=== PATIENT | male | born 1960 | race Caucasian/White ===

== ENCOUNTER 2022-09-27 07:26 | Outpatient (OUT) | payer MEDICARE, SELFPAY ==
[2022-09-27 07:46] LABS: Bilirubin Urine NEGATIVE (NEGATIVE); Blood Urine TRACE-I (NEGATIVE); Clarity Urine CLEAR (CLEAR); Color Urine LT. YELLOW (YELLOW); Glucose Urine UA >=1000 mg/dL (NEGATIVE); Ketones Urine NEGATIVE (NEGATIVE); Leukocyte Esterase Urine NEGATIVE (NEGATIVE); Nitrite Urine NEGATIVE (NEGATIVE); Protein Urine NEGATIVE (NEG/TRACE); Specific Gravity Urine <=1.005 (1.005-1.025); Urobilinogen Urine 0.2 EU/dL (0.2-1.0)
[2022-09-27 07:56] LABS: Bacteria Urine NONE SEEN #/HPF (NONE SEEN); Mucus Urine NONE SEEN (NONE SEEN); RBC Urine 0-2 #/HPF (0-2); WBC Urine NONE SEEN #/HPF (NONE SEEN)
[2022-09-27 07:57] LABS: Squamous Epithelial Cell Urine FEW #/LPF (NONE/RARE)
[2022-09-27 08:03] LABS: Crystals Seen? None Seen #/HPF (None Seen)
[2022-09-27 08:04] LABS: Cast Seen? NONE SEEN #/LPF (NONE SEEN)
== END 2022-09-27 07:27 ==
LOC: LAB 07:31
PROVIDERS: PCP Nurse Practitioner; Visit Provider Nurse Practitioner
DX: R31.21 Asymptomatic microscopic hematuria (principal)
CPT/HCPCS: 81001

== ENCOUNTER 2022-12-13 11:14 | Outpatient (OUT) | payer MEDICARE, SELFPAY ==
[2022-12-13 11:58] LABS: Estimated Average Glucose 212 mg/dL
[2022-12-13 12:54] LABS: Alanine Aminotransferase 18 U/L (16-63); Albumin Globulin Ratio 0.9; Albumin Level 3.9 g/dL (3.4-5.0); Alkaline Phosphatase 69 U/L (46-116); Anion Gap 9.3; Aspartate Amino Transferase 22 U/L (15-37); BUN Creatinine Ratio 18.1; Calcium 8.7 mg/dL (8.5-10.1); Carbon Dioxide 28.7 mmol/L (21.0-32.0); Chloride 100 mmol/L (98-107); Estimated GFR (African America >60 (>=60); Estimated GFR (Non-African Ame 50 (>=60); Free T3 2.11 pg/mL (2.18-3.98); Globulin 4.5 g/dL; Glucose 266 mg/dL (74-106); Sodium 134 mmol/L (136-145); Thyroid Stimulating Hormone 2.113 uIU/mL (0.358-3.740); Total Protein 8.4 g/dL (6.4-8.2)
== END 2022-12-13 11:15 | disposition home or self-care (01) ==
LOC: LAB 11:18
PROVIDERS: PCP Nurse Practitioner; Visit Provider Nurse Practitioner
DX: E11.8 Type 2 diabetes mellitus with unspecified complications (principal); Z79.4 Long term (current) use of insulin; E03.9 Hypothyroidism, unspecified; N18.30 Chronic kidney disease, stage 3 unspecified; E11.22 Type 2 diabetes mellitus with diabetic chronic kidney disease; I50.22 Chronic systolic (congestive) heart failure
CPT/HCPCS: 36415; 80053; 83036; 84439; 84443; 84481

== ENCOUNTER 2023-05-19 07:03 | Emergency (ER) | payer MEDICARE, MEDICAID, SELFPAY ==
[2023-05-19] VITALS (23 sets, daily range): PULSE 114; RESP 20–24; TEMP 36.3; O2SAT 93–100; BMI 33.8
--- NOTE | 2023-05-19 07:15 | XR_ITS ---
The [address] [address] Patient Name: TERRY BARAKAT MRN: [id number] date: 1960 Sex: M Assigned Patient Location: ER Current Patient Location: ED.MAIN Accession/Order Number: [id number] Exam Date: 05/19/2023 07:28 Report Date: 05/19/2023 07:40 At the request of: HUGO VARGAS Procedure: XR chest 1V EXAMINATION: XR chest 1V HISTORY: SOB COMPARISON: 04/01/2022 TECHNIQUE: AP portable FINDINGS: LUNGS: Left basilar infiltrate obscuring the hemidiaphragm, the right lung is clear VASCULATURE: No increased pulmonary vasculature. PLEURA: No pneumothorax, effusion, or pleural thickening. CARDIAC: Moderate stable cardiomegaly MEDIASTINUM: No visible mass or adenopathy. Median sternotomy wires. Left pacemaker BONES: No fracture or visible bone lesion. OTHER: Negative. XR/XR chest 1V IMPRESSION: Left basilar infiltrate Electronically authenticated by: TORI GILL Date: 05/19/2023 07:40
--- NOTE | 2023-05-19 07:18 | ECG_ITS ---
The [facility] Test Date: 2023-05-19 Pat Name: TERRY BARAKAT Department: Room: - Gender: Male [employer]: : 1960 Requested By: [id number] Order Number: [id number] Reading MD: OSMAN CANTU Measurements Intervals Bureau Rate: 77 P: -58509 ND: -49010 QRS: 270 QRSD: 118 T: 205 QT: 414 QTc: 446 Interpretive Statements Tracing not interpretable 0102 ARTIFACT PRESENT 9150 abnormal ECG Electronically Signed On 05-20-2023 6:56:01 EST by OSMAN CANTU
--- NOTE | 2023-05-19 07:29 | ED_ITS ---
HPI - General Adult General Chief complaint: Chest Pain Stated complaint: DEFIB Time Seen by Provider: 05/19/23 07:15 Source: patient Mode of arrival: ambulance Limitations: no limitations History of Present Illness HPI narrative: 62-year-old male presents because his defibrillator discharged six times in fifteen minutes. This all happened this morning and paramedics brought him in. Since they picked him up it has not discharged. He also has an LVAD. He's been taking all his medications and nothing has been out of the ordinary for him. He's had this defibrillator since 2010 and the battery has never been changed. no fever or shortness of breath. Related Data Home Medications Medication Instructions Recorded Confirmed carvedilol 6.25 mg tablet 6.25 mg PO Q12H 05/19/23 05/19/23 cholecalciferol (vitamin D3) 50 2,000 unit PO DAILY 05/19/23 05/19/23 mcg (2,000 unit) tablet dapagliflozin propanediol 10 mg 10 mg PO DAILY 05/19/23 05/19/23 tablet (Farxiga) digoxin 125 mcg (0.125 mg) tablet 0.125 mg PO .3 times weekly 05/19/23 05/19/23 fluticasone propionate 50 2 spray intranasal DAILY 05/19/23 05/19/23 mcg/actuation nasal spray,suspension gabapentin 300 mg capsule 300 mg PO BID 05/19/23 05/19/23 insulin detemir U-100 100 unit/mL 32 unit subcut BID 05/19/23 05/19/23 (3 mL) subcutaneous pen (Levemir FlexPen) insulin glargine 100 unit/mL (3 unit subcut 05/19/23 mL) subcutaneous pen (Basaglar KwikPen U-100 Insulin) levothyroxine 100 mcg tablet 100 mcg PO DAILY 05/19/23 05/19/23 lisinopril 5 mg tablet 5 mg PO DAILY 05/19/23 05/19/23 loratadine 10 mg tablet 10 mg PO DAILY 05/19/23 05/19/23 rosuvastatin 10 mg tablet 10 mg PO DAILY 05/19/23 05/19/23 spironolactone 25 mg tablet 25 mg PO DAILY 05/19/23 05/19/23 warfarin 3 mg tablet 4.5 mg PO DAILY 05/19/23 05/19/23 Allergies Allergy/AdvReac Type Severity Reaction Status Date / Time No Known Drug Allergies Allergy Verified 05/19/23 07:10 Review of Systems ROS Narrative A ten point review of systems is negative except as noted above. PFSH PFSH Social History Smoking status: Former smoker Exam Narrative Exam Narrative: Nurses note and vital signs reviewed and patient is not hypoxic. General: The patient appears well and in no apparent distress. Patient is resting comfortably on cart. Skin: Warm, dry, no pallor noted. There is no rash noted. Head: Normocephalic, atraumatic Eye: Normal conjunctiva, no drainage Ears, Nose, Mouth, and Throat: oral mucosa is moist. Nares patent. Cardiovascular: LVAD is in place and functioning appropriately Respiratory: Patient is in no distress, no accessory muscle use, lungs are clear to auscultation, no wheezing, rales or rhonchi Back: non-tender GI: soft and nontender Musculoskeletal: The patient has no evidence of calf tenderness, no pitting edema Neurological: A&O, normal speech Psychiatric: Cooperative Constitutional Vital Signs, click to edit/add: Last Vital Signs Temp 97.4 F L 05/19/23 07:27 Pulse 114 H 05/19/23 07:08 Resp 24 05/19/23 07:08 Pulse Ox 96 05/19/23 07:38 O2 Del Method Nasal Cannula 05/19/23 07:38 O2 Flow Rate 2 05/19/23 07:38 Course Vital Signs Vital signs: Vital Signs Temperature 97.4 F L 05/19/23 07:05 Respiratory Rate 23 05/19/23 07:05 Pulse Oximetry 96 05/19/23 07:05 Oxygen Delivery Flow Rate 2 05/19/23 07:05 Temperature 97.4 F L 05/19/23 07:27 Pulse Rate 114 H 05/19/23 07:08 Respiratory Rate 24 05/19/23 07:08 Pulse Oximetry 96 05/19/23 07:38 Oxygen Delivery Method Nasal Cannula 05/19/23 07:38 Oxygen Delivery Flow Rate 2 05/19/23 07:38 Medical Decision Making MDM Narrative Medical decision making narrative: His defibrillator has not discharged any further. I've spoken to Dr. Negrete at [facility] and the patient will be transferred there. He stable and agreeable for transfer. Differential Diagnosis Differential Diagnosis: defibrillator discharge, electrolyte imbalance Imaging Data Chest x-ray: Radiologist's impression: ITS Impressions Chest X-Ray 05/19/23 07:15 IMPRESSION: Left basilar infiltrate Electronically authenticated by: TORI GILL Date: 05/19/2023 07:40 Discharge Plan Discharge Chief Complaint: Chest Pain Clinical Impression: Defibrillator discharge Patient Disposition: [facility] Time of Disposition Decision: 08:03 Discharge location: [facility] Condition: Good Mode of Transportation: EMS
[2023-05-19 07:34] LABS: Basophils Absolute Auto 0.1 10^3/uL (0.0-0.1); Basophils Percent Auto 1.5 % (0.2-2.0); Eosinophils Absolute Auto 0.3 10^3/uL (0.0-0.7); Eosinophils Percent Auto 6.2 % (0.9-7.0); Hematocrit 46.7 % (42.0-54.0); Hemoglobin 15.2 g/dL (14.0-18.0); Immature Granulocytes Abs Auto 0.02 10^3/uL (0.00-0.03); Immature Granulocytes Pct Auto 0.4 % (0.0-0.5); Lymphocytes Absolute Auto 0.8 10^3/uL (1.2-3.8); Lymphocytes Percent Auto 14.9 % (20.5-60.0); Mean Corpuscular HGB Conc 32.5 g/dL (29.9-35.2); Mean Corpuscular Hemoglobin 31.3 pg (25.9-34.0); Mean Corpuscular Volume 96.1 fL (80.0-94.0); Mean Platelet Volume 12.2 fL (9.5-13.5); Monocytes Absolute Auto 0.7 10^3/uL (0.3-0.8); Monocytes Percent Auto 12.2 % (1.7-12.0); Neutrophils Absolute Auto 3.6 10^3/uL (1.4-6.5); Neutrophils Percent Auto 64.8 % (43.0-75.0); Platelet Count 125 10^3/uL (150-450); Red Blood Count 4.86 10^6/uL (4.70-6.10); Red Cell Distribution Width 14.9 % (11.0-15.0); White Blood Count 5.5 10^3/uL (4.0-11.0)
[2023-05-19 08:49] LABS: Anion Gap 16.7; BUN Creatinine Ratio 14.7; Calcium 8.6 mg/dL (8.5-10.1); Carbon Dioxide 25.1 mmol/L (21.0-32.0); Chloride 102 mmol/L (98-107); Estimated GFR (African America >60 (>=60); Estimated GFR (Non-African Ame >60 (>=60); Glucose 236 mg/dL (74-106); Potassium 3.8 mmol/L (3.5-5.1); Sodium 140 mmol/L (136-145)
== END 2023-05-19 10:05 | disposition short-term general hospital (02) ==
PROVIDERS: Emergency Provider Emergency Medicine; PCP Nurse Practitioner
DX: T82.897A Other specified complication of cardiac prosthetic devices, implants and grafts, initial encounter (principal); Z95.811 Presence of heart assist device; Z87.891 Personal history of nicotine dependence; Z79.01 Long term (current) use of anticoagulants; Z79.899 Other long term (current) drug therapy; Z79.890 Hormone replacement therapy; Z79.4 Long term (current) use of insulin
CPT/HCPCS: 36415; 71045; 80048; 85025; 93005; 99285

== ENCOUNTER 2023-05-31 07:45 | Outpatient (OUT) | payer MEDICARE, MEDICAID, SELFPAY ==
--- OUTSIDE RECORDS SUMMARY | 2023-05-31 07:55 | XMS_ITS | CCD ---
Author Name Unknown Address [id number] [place] [address] Organization [facility] Care Team Providers Care Credit Associate Name Role Phone NENA YOUNG AM Admitting Unavailable NENA YOUNG AM Attending Unavailable ANA MADERA Referring Unavailable ANA MADERA Primary Care Unavailable PHYSICIAN, DEFAULT Admitting Unavailable PHYSICIAN, DEFAULT Attending Unavailable ANA MADERA Primary Care Unavailable PHYSICIAN, DEFAULT Admitting Unavailable PHYSICIAN, DEFAULT Attending Unavailable ANA MADERA Primary Care Unavailable PHYSICIAN, DEFAULT Admitting Unavailable PHYSICIAN, DEFAULT Attending Unavailable ANA MADERA Primary Care Unavailable ElAmm, John Unavailable Unavailable Cooper Vaca Unavailable Unavailable Janene Negrete Unavailable Unavailable Rey Molina Unavailable Unavailable Stanford West Unavailable Unavailable Ju Palacios Unavailable Unavailable William Mendez V Unavailable Unavailable Joleen Herrera Unavailable Unavailable Unavailable Joleen Herrera Unavailable Gastroenterology Consult Team Unavailable Un available Debora Paez Unavailable Unavailable EL AMM, JOHN Unavailable Unavailable Ju Palacios Unavailable Unavailable Joleen Herrera CNP Primary Care Provider El Amm, John Unavailable Joleen Herrera CNP Primary Care Provider JENNIFER HERRERA Primary Care Unavailable JENNIFER HERRERA Attending Unavailable JENNIFER HERRERA Admitting Unavailable DR TORI GILL V Consulting Unavailable JENNIFER HERRERA Primary Care Unavailable JERRELL KRAUS Attending Unavailable JERRELL KRAUS Admitting Unavailable KUNTE, JERRELL Consulting Unavailable AICHHOLZ, CELL BIOLOGY SCIENTIST JOLEEN Consulting Unavailable AICHHOLZ, CELL BIOLOGY SCIENTIST JOLEEN Primary Care Unavailable AICHHOLZ, CELL BIOLOGY SCIENTIST JOLEEN Attending Unavailable AICHHOLZ, CELL BIOLOGY SCIENTIST JOLEEN Admitting Unavailable AICHHOLZ, CELL BIOLOGY SCIENTIST JOLEEN Consulting Unavailable AICHHOLZ, CELL BIOLOGY SCIENTIST JOLEEN Primary Care Unavailable AICHHOLZ, CELL BIOLOGY SCIENTIST JOLEEN Attending Unavailable AICHHOLZ, CELL BIOLOGY SCIENTIST JOLEEN Admitting Unavailable AICHHOLZ, CELL BIOLOGY SCIENTIST JOLEEN Consulting Unavailable AICHHOLZ, CELL BIOLOGY SCIENTIST JOLEEN Primary Care Unavailable AICHHOLZ, CELL BIOLOGY SCIENTIST JOLEEN Attending Unavailable AICHHOLZ, CELL BIOLOGY SCIENTIST JOLEEN Admitting Unavailable MISC, DOCTOR Consulting Unavailable AICHHOLZ, CELL BIOLOGY SCIENTIST JOLEEN Primary Care Unavailable MISC, DOCTOR Attending Unavailable MISC, DOCTOR Admitting Unavailable AICHHOLZ, CELL BIOLOGY SCIENTIST JOLEEN Consulting Unavailable AICHHOLZ, CELL BIOLOGY SCIENTIST JOLEEN Primary Care Unavailable AICHHOLZ, CELL BIOLOGY SCIENTIST JOLEEN Attending Unavailable AICHHOLZ, CELL BIOLOGY SCIENTIST JOLEEN Admitting Unavailable AICHHOLZ, CELL BIOLOGY SCIENTIST JOLEEN Consulting Unavailable AICHHOLZ, CELL BIOLOGY SCIENTIST JOLEEN Primary Care Unavailable AICHHOLZ, CELL BIOLOGY SCIENTIST JOLEEN Attending Unavailable AICHHOLZ, CELL BIOLOGY SCIENTIST JOLEEN Admitting Unavailable DR TORI GILL V Consulting Unavailable AICHHOLZ, CELL BIOLOGY SCIENTIST JOLEEN Primary Care Unavailable AICHHOLZ, CELL BIOLOGY SCIENTIST JOLEEN Attending Unavailable AICHHOLZ, CELL BIOLOGY SCIENTIST JOLEEN Admitting Unavailable AICHHOLZ, CELL BIOLOGY SCIENTIST JOLEEN Consulting Unavailable AICHHOLZ, CELL BIOLOGY SCIENTIST JOLEEN Consulting Unavailable AICHHOLZ, CELL BIOLOGY SCIENTIST JOLEEN Primary Care Unavailable AICHHOLZ, CELL BIOLOGY SCIENTIST JOLEEN Attending Unavailable AICHHOLZ, CELL BIOLOGY SCIENTIST JOLEEN Admitting Unavailable DR ROBIN GROVE Consulting Unavailmanuel GROVE, DR ROBIN Ye Attending UnavailDR ROBIN Monroy Admitting Unavailabl e AICHHOLZ, CELL BIOLOGY SCIENTIST JOLEEN Primary Care Unavailable CHADWICK SHERMAN Consulting Unavailable Aichholz JENNIFER, Joleen Sri Primary Care Provider [phone] SHARON, JOLEEN SRI Primary Care Unavailable AICHHOLZ, JOLEEN SRI Primary Care Unavailable AILYN FRIEND Attending Unavailable KUNTE, JERRELL Referring Unavailable AICHHOLZ, JOLEEN SRI Primary Care Unavailable AILYN FRIEND Referring Unavailable AICHHOLZ, JOLEEN SRI Primary Care Unavailable AILYN FRIEND Attending Unavailable KUNTE, JERRELL Referring Unavailable AICHHOLZ, JOLEEN SRI Primary Care Unavailable JOLEEN HERRERA Primary Care Physician David Johnson Attending Unavailable Sharon SAUSAGE LINKER-CELL BIOLOGY SCIENTIST, Joleen Fierro Primary Care Provider Alberto TOLBERT, Poly Unavailable Unavailable Jared TOLBERT, Nazanin Unavailable Unavailable Len Guardado MD Unavailable Char[facility], Aisha Corado Unavailable JOLEEN HERRERA Attending Unavailable SHARON, JOLEEN Attending Unavailable Obed Burrell MD Primary Care Provider Sharon SPARK TESTER, Joleen Unavailable JOLEEN HERRERA Primary Care Unavailable LEN GUARDADO Attending Unavailable LEN GUARDADO Admitting Unavailable COOPER VACA Attending Unavailable JOLEEN HERRERA Primary Care Unavailable SHARON, JOLEEN FIERRO Primary Care Unavailable COOPER VACA Attending Unavailable JOLEEN HERRERA Primary Care Unavailable Sharon, Mrs. Joleen Fierro Primary Care Unavailab LEN Quinn Attending Unavailable Sharon, Mrs. Joleen Fierro Primary Care Unavailab LEN Quinn Attending Unavailable Allergies Allergy Classification Reported Allergen(s) Allergy Type Date of Onset Reaction(s) Facility (1 source) 63731,00; Translations: [32378,00] Propensity to adverse reactions (disorder) 0 [facility] Repository (1 source) ALLERGIES NOT ON FILE; Translations: [ALLERGIES NOT ON FILE] Propensity to adverse reactions (disorder) [facility] Repository Medications Current Medications Medication Drug Class(es) Dates Sig (Normalized) Sig (Original) Acetaminophen (3 sources) Start: 05-23-2023 take 1 tablet by mouth every four hours as needed acetaminophen (Tylenol) tablet 650 mg Start: 03-01-2020 take 2 tablets by mo uth every six hours as needed acetaminophen 325 mg oral tablet ; 2 tab(s) orally every 6 hours, As needed, Pain - Mild (1-3) Quantity: 0 Refills: 0 Ordered: 01-Mar-2020 Pamela Harrison Start: 01-Mar-2020 Generic Substitution Allowed albuterol 0.833 mg/ml / ipratropium bromide 0.167 mg/ml inhalation solution (1 source) Anticholinergic, beta2-Adrenergic Agonist Start: 05-19-2023 take 3 mL by inhalation every six hours as needed ipratropium-albuteroL (Duo-Neb) 0.5-2.5 mg/3 mL nebulizer solution 3 mL amiodarone hydrochloride 400 mg oral tablet (20 sources) Antiarrhythmic Start: 05-24-2023 End: 05-23-2024 take 1 tablet by mouth once daily amiodarone (Pacerone) 400 mg tablet Indications: HFrEF (heart failure with reduced ejection fraction) ([facility]) Take 1 tablet (400 mg) by mouth once daily. 30 tablet 11 05/24/2023 05/23/2024 Active Start: 05-21-2023 take 1 tablet by ar th every eight hours amiodarone (Pacerone) tablet 400 mg Start: 05-19-2023 End: 05-21-2023 amiodarone (Nexterone) 360 m g in dextrose,iso-osm 200 mL (1.8 mg/mL) infusion (premix) Start: 05-19-2023 End: 05-19-2023 amiodarone (Nexterone) 150 m g in dextrose,iso-osm 100 mL (1.5 mg/mL) IV (premix) Start: 05-19-2023 End: 05-19-2023 amiodarone (Nexterone) infus ion - Omnicell Override Pull Start: 12-21-2014 End: 05-24-2023 take 200 mg by mouth once daily 200 mg, oral, Daily, F irst dose on 05/19/23 at 1230 Comment on above: Take 200 mg by mouth once daily. aspirin 81 mg delayed release oral tablet (20 sources) Platelet Aggregation Inhibitor, Nonsteroidal Anti-inflammatory Drug Start: take 1 tablet by mouth once daily aspirin 81 mg EC tablet Take 1 tablet (81 mg) by mouth once daily. 0 10/03/2021 Active Comment on above: Take 81 mg by mouth once daily. bumetanide 2 mg oral tablet (2 sources) Loop Diuretic take 1 tablet by mouth twice daily bumetanide 2 mg oral tablet ; 1 tab(s) orally 2 times a day Quantity: 0 Refills: 0 Ordered: 13-Aug-2016 Angel Luis Richmond Status: Discontinued Generic Substitution Allowed carvedilol 6.25 mg oral tablet (20 sources) alpha-Adrenergic Román, beta-Adrenergic Román Start: 7 take 1 tablet by mouth in the morning carvedilol (Coreg) 6.25 MG tablet Take 6.25 mg by mouth in the morning and 6.25 mg before bedtime. 0 03/07/2023 Active Start: 12-21-2014 take 1.5 tablets by mouth twice daily Carvedilol 6.25 MG Oral Tablet take 1.5 tablets by mouth twice daily Quantity: 270 Refills: 2 Ordered: 25-Jan-2020 Ju Lee Start : 21-Dec-2014 Active take 1 tablet by ar th once daily carvedilol 6.25 mg oral tablet ; 1 tab(s) orally once a day Quantity: 0 Refills: 0 Ordered: 13-Aug-2016 Angel Luis Richmond Status: Discontinued Generic Substitution Allowed Comment on above: Take 6.25 mg by mout h twice daily with meals. cephalexin 500 mg oral capsule (4 sources) Cephalosporin Antibacterial Start: 05-23-19 End: 05-26-19 cephalexin (Keflex) 500 MG capsule cholecalciferol 0.025 mg oral tablet (15 sources) Vitamin D Start: 05-19-19 take 2000 [IU] by mouth once daily 2,000 Units, oral, Daily, First dose on 05/19/23 at 1230 Start: 03-07-2023 take 1 capsule by mo uth in the morning cholecalciferol (Vitamin D-3) 50 MCG (1999 UT) capsule Take 2,000 Units by mouth in the morning. 0 03/07/2023 Active Start: 01-09-2023 take 1 tablet by ar th once daily cholecalciferol (Vitamin D-3) 50 MCG (2000 UT) tablet Take 1 tablet (50 mcg) by mouth once daily. 0 01/09/2023 Active Start: 09-14-2021 take 1 tablet by ar th once daily cholecalciferol (VITAMIN D3) 50 mcg (2,000 unit) tablet Take 1 tablet by mouth once daily. 0 09/14/2021 Active take 1 tablet by ar th once daily cholecalciferol 400 intl units (10 mcg) oral tablet ; 1 tab(s) orally once a day Quantity: 0 Refills: 0 Ordered: 26-Dec-2021 Marlen Gibbons Generic Substitution Allowed Comment on above: Take 1 tablet by ar th once daily. dapagliflozin 10 mg oral tablet (20 sources) Sodium-Glucose Cotransporter 2 Inhibitor Start: 0 take 10 mg by mouth in the morning Farxiga 10 MG Take 10 mg by mouth in the morning. 0 03/07/2023 Active Comment on above: Take 10 mg by mouth daily with breakfast. digoxin 0.125 mg oral tablet (20 sources) Cardiac Glycoside Start: 4 take 1 dose by mouth once daily 125 mcg, oral, 3 times weekly (Once per day on Sat), First dose on Sat05/20/23 at 0900 Start: 05-16-2022 take 2 tablets by mo uth in the morning Digoxin (Lanoxin) 62.5 MCG tablet Take 125 mcg by mouth in the morning. 0 05/16/2022 Active Start: 12-21-2014 Digoxin 125 MC G Oral Tablet Take one tablet by mouth on saturday, saturday, and saturday Quantity: 12 Refills: 10 Ordered: 15-Aug-2022 Cooper Vaca DO Start : 21-Dec-2014 Active take 1 tablet by ar th three times weekly digoxin (Lanoxin) 125 MCG tablet Take 1 tablet (125 mcg) by mouth 3 times a week. 0 Active digoxin 125 mcg (0.125 mg) oral tablet ; 1 tab(s) orally Saturday, Saturday, and Saturday Quantity: 0 Refills: 0 Ordered: 26-Dec-2021 Marlen Gibbons Generic Substitution Allowed take 125 ug by mouth every other day DIGOXIN ORAL Take 125 mcg by mouth every other day. 0 Active Comment on above: Take 125 mcg by mout h every other day. docosahexaenoic acid 120 mg / eicosapentaenoic acid 180 mg oral capsule (12 sources) Start: 2 take 2 capsules by mouth twice daily fish oil concentrate ([place]-3) 120-180 mg capsule Take 2 capsules (2 g) by mouth 2 times a day. 0 01/25/2022 Active Start: 01-25-2022 take 2 capsules by m outh twice daily Fish Oil 1000 MG Oral Capsule TAKE TWO CAPSULES BY MOUTH TWO TIMES A DAY Quantity: 120 Refills: 3 Ordered: 18-May-2022 Cooper Vaca DO Start : 25-Jan-2022 Active docusate sodium 100 mg oral capsule (2 sources) take 1 capsule by mouth twice daily Colace 100 mg oral capsule ; 1 cap(s) orally 2 times a day Quantity: 0 Refills: 0 Ordered: 13-Aug-2016 Angel Luis Richmond Status: Discontinued Generic Substitution Allowed docusate sodium 50 mg / sennosides, alf 8.6 mg oral tablet (1 source) Start: 05-19-2023 sennosides-docusate sodium (Beatrice-Colace) 8.6-50 mg per tablet 1 tablet fluticasone propionate 0.05 mg/actuat metered dose nasal spray (9 sources) Corticosteroid Start: 05-19-2023 2 spray, Each Nostril, Daily, First dose on 05/19/23 at 1230 Shake gently. Before first use, prime pump (press 6 times until fine spray appears). After use, clean tip and replace cap. Start: 05-09-2023 End: 06-08-2023 take 2 spray(s) nasal route in the morning fluticasone (Flonase) 50 MCG/ACT nasal spray Indications: Environmental and seasonal allergies Administer 2 sprays into each nostril in the morning. 16 g 5 05/09/2023 06/08/2023 Active Start: 08-29-2022 take 2 spray(s) nasa l route once daily fluticasone (Flonase) 50 mcg/actuation nasal spray Administer 2 sprays into each nostril once daily. 0 01/09/2023 Active Comment on above: Use 2 Sprays in each nostril once daily. gabapentin 300 mg oral capsule (20 sources) Anti-epileptic Agent Start: take 1 capsule by mouth twice daily 300 mg, oral, 2 times daily, First dose on 05/19/23 at 1230 Capsules may be opened and sprinkled on food (eg, applesauce, orange juice, pudding Comment on above: Take 300 mg by mouth twice daily. glucagon (rdna) 1 mg injection (1 source) Antihypoglycemic Agent Start: 4 glucagon (Glucagen) injection 1 mg 1000 ml glucose 100 mg/ml injection (2 sources) Start: 4 dextrose 50 % injection 25 g Start: 05-19-2023 dextrose 10 % in water (D10W) infusion insulin detemir 100 unt/ml injectable solution (20 sources) Insulin Analog Start: 05-20-2023 insulin detemi r (Levemir) injection 32 Units Start: 05-19-2023 End: 05-20-2023 insulin detemir (Levemir) injection 20 Units Start: 01-09-2023 Levemir FlexPe n 100 unit/mL (3 mL) pen INJECT 32 UNITS UNDER SKIN TWICE A DAY 0 01/09/2023 Active Start: 12-21-2014 End: 05-19-2023 insulin detemir (Levemir U-1 00 Insulin) 100 unit/mL injection Inject 36 Units under the skin. 0 12/21/2014 05/19/2023 Discontinued (Med List Cleanup) Start: 12-21-2014 inject 36 [IU] by johnson bcutaneous injection once daily Levemir 100 UNIT/ML Subcutaneous Solution INJECT 36 units SUBCUTANEOUSLY EVERYDAY. Quantity: 0 Refills: 0 Ordered: 29-Aug-2017 Rey Maurer Start : 21-Dec-2014 Active inject 30 [IU] by johnson bcutaneous injection twice daily insulin detemir 100 units/mL subcutaneous solution ; 30 unit(s) subcutaneous 2 times a day Quantity: 0 Refills: 0 Ordered: 26-Dec-2021 Marlen Gibbons Generic Substitution Allowed insulin detemir (LEVEMIR FLEXTOUCH U-100 INSULN SUBCUTANEOUS) Inject subcutaneously. 0 Active inject 27 [IU] by johnson bcutaneous injection twice daily Levemir 100 units/mL subcutaneous solution ; 27 unit(s) subcutaneous 2 times a day Quantity: 0 Refills: 0 Ordered: 01-Mar-2020 Fabian Mixon Generic Substitution Allowed Comment on above: Inject subcutaneousl y. 3 ml insulin glargine 100 unt/ml pen injector (2 sources) Insulin Analog Start: 05-15-19 End: 06-14-19 inject 30 [IU] by subcutaneous injection in the morning insulin glargine (Basaglar KwikPen) 100 UNIT/ML pen Indications: Type 2 diabetes mellitus with diabetic polyneuropathy, with long-term current use of insulin ([facility]) Inject 30 Units under the skin in the morning and 30 Units before bedtime. 18 mL 3 05/15/2023 06/14/2023 Active insulin lispro 100 unt/ml injectable solution (1 source) Insulin Analog Start: 05-19-19 24 insulin lispro (HumaLOG) injection 0-10 Units 3 ml insulin aspart, human 100 unt/ml pen injector (20 sources) Insulin Analog Start: 11-23-19 17 insulin aspart (NovoLOG FlexPen U-100 Insulin) 100 unit/mL (3 mL) pen Inject under the skin 3 times a day before meals. As directed by sliding scale 0 11/22/2016 Active Start: 11-22-2016 NovoLOG FlexPe n 100 UNIT/ML Subcutaneous Solution Pen- injector Quantity: 0 Refills: 0 Ordered: 09-Jun-2020 DO Start : 22-Nov-2016 Active Start: 11-22-2016 NovoLOG FlexPe n 100 UNIT/ML Subcutaneous Solution Pen- injector Quantity: 15 Refills: 0 Start : 22-Nov-2016 Active insulin aspart 1 00 units/mL subcutaneous solution ; subcutaneous 3 times a day per sliding scale Quantity: 0 Refills: 0 Ordered: 31-Aug-2016 Bambi Valladares Status: Discontinued Generic Substitution Allowed insulin aspart 1 00 units/mL injectable solution ; 10 unit(s) injectable 2 times a day Quantity: 0 Refills: 0 Ordered: 26-Dec-2021 Marlen Gibbons Status: Discontinued Generic Substitution Allowed insulin aspart ( NOVOLOG FLEXPEN U-100 INSULIN SUBCUTANEOUS) Inject subcutaneously. 0 Active NovoLOG 100 unit s/mL injectable solution ; per home sliding scale Quantity: 0 Refills: 0 Ordered: 12-Sep-2017 Bambi Valladares Generic Substitution Allowed Comment on above: Inject subcutaneously. iron sucrose (15 sources) Parenteral Iron Replacement Start: 03-27-20 21 take 300 mg intravenously once daily iron sucrose ; 300 milligram(s) IV once a day for 3 more doses Quantity: 0 Refills: 0 Ordered: 27-Mar-2021 Ju Palacios Start: 27-Mar-2021 Status: Other Generic Substitution Allowed Start: 03-27-2021 take 300 mg intraven ously once daily iron sucrose ; 300 milligram(s) IV once a day for 3 more doses Quantity: 0 Refills: 0 Ordered: 27-Mar-2021 Ju Palacios Start: 27-Mar-2021 Generic Substitution Allowed Start: 03-27-2021 End: 01-25-2022 take 300 mg intravenously once daily Venofer 20 MG/ML Intravenous Solution Infuse 300 mg daily. Stop after 3 days. Quantity: 45 Refills: 0 Ordered: 04-Apr-2021 Ju Horn Start : 27-Mar-2021 End : 25-Jan-2022 Complete levothyroxine sodium 0.05 mg oral tablet (20 sources) l-Thyroxine Start: 05-19-2023 take 100 ug by mouth once daily 100 mcg, oral, Daily, First dose on 05/19/23 at 1230 Start: 09-12-2017 take 1 tablet by ar th once daily levothyroxine 75 mcg (0.075 mg) oral tablet ; 1 tab(s) orally once a day Quantity: 0 Refills: 0 Ordered: 12-Sep-2017 Bambi Valladares Start: 12-Sep-2017 Generic Substitution Allowed Start: 09-27-2016 End: 07-09-2023 take 1 tablet by mouth in the morning levothyroxine (Synthroid, Levoxyl) 100 MCG tablet Indications: Acquired hypothyroidism (CMS/HCC) Take 1 tablet (100 mcg) by mouth in the morning. 90 tablet 0 04/10/2023 07/09/2023 Active Start: 09-27-2016 Levoxyl 100 MC G Oral Tablet Quantity: 0 Refills: 0 Ordered: 25-Jan-2022 DO Start : 27-Sep-2016 Active Start: 09-27-2016 take 1 tablet by ar th once daily Levoxyl 112 MCG Oral Tablet TAKE 1 TABLET DAILY. Quantity: 0 Refills: 0 Ordered: 31-Jan-2021 DO Start : 27-Sep-2016 Active Start: 09-27-2016 Levoxyl 100 MC G Oral Tablet Quantity: 0 Refills: 0 Ordered: 09-Jun-2020 DO Start : 27-Sep-2016 Active Start: 09-27-2016 Levothyroxine Sodium 75 MCG Oral Tablet Quantity: 15 Refills: 0 Start : 27-Sep-2016 Active Start: 08-31-2016 End: 10-29-2016 take 1 tablet by mouth once daily after mealtime levothyroxine 75 mcg (0.075 mg) oral tablet ; 0.5 tab(s) orally once a day Quantity: 15 Refills: 1 Ordered: 31-Aug-2016 Bambi Valladares Start: 31-Aug-2016 End: 29-Oct-2016 Status: Discontinued Generic Substitution Allowed Comments: It is very important that you take or use this exactly as directed. Do not skip doses or discontinue unless directed by your doctor.Medication should be taken with plenty of water.Some non-prescription drugs may aggravate your condition. Read all labels carefully. If a warning appears, check with your doctor before taking.Take medication on an empty stomach 1 hour before or 2 to 3 hours after a meal unless otherwise directed by your doctor. take 1 capsule by mo uth once daily before breakfast levothyroxine 100 mcg cap Take 100 mcg by mouth daily before breakfast. 0 Active take 1 tablet by ar th once daily levothyroxine 25 mcg (0.025 mg) oral tablet ; 1 tab(s) orally once a day Quantity: 0 Refills: 0 Ordered: 13-Aug-2016 Angel Luis Richmond Status: Discontinued Generic Substitution Allowed End: 09-21-2021 take 1 capsule by mouth once daily before breakfast levothyroxine 112 mcg cap Take 112 mcg by mouth daily before breakfast. 0 09/21/2021 Discontinued (Dosage adjustment) Comment on above: It is very important that you take or use this exactly as directed. Do not skip doses or discontinue unless directed by your doctor.Medication should be taken with plenty of water.Some non-prescription drugs may aggravate your condition. Read all labels carefully. If a warning appears, check with your doctor before taking.Take medication on an empty stomach 1 hour before or 2 to 3 hours after a meal unless otherwise directed by your doctor. Take 100 mcg by mout h daily before breakfast. Take 112 mcg by mout h daily before breakfast. lisinopril 5 mg oral tablet (17 sources) Angiotensin Converting Enzyme Inhibitor Start: take 1 tablet by mouth in the morning lisinopril 5 MG tablet Take 5 mg by mouth in the morning. 0 03/07/2023 Active loratadine 10 mg oral tablet (9 sources) Start: End: take 1 tablet by mouth once daily loratadine (Claritin) 10 mg tablet Take 1 tablet (10 mg) by mouth once daily. 0 01/09/2023 Active Comment on above: Take 10 mg by mouth once daily. magnesium oxide 400 mg oral tablet (1 source) Start: magnesium oxide (Mag-Ox) tablet 800 mg melatonin 1 mg oral tablet (1 source) Start: take 1 tablet by mouth once at bedtime as needed melatonin 1 mg oral tablet ; 1 tab(s) orally once (at bedtime), As needed, Insomnia Quantity: 0 Refills: 0 Ordered: 28-Dec-2021 Ju Palacios Start: 28-Dec-2021 Generic Substitution Allowed Multiple Vitamins with Minerals oral tablet (2 sources) Start: take 1 tablet by mouth once daily Multiple Vitamins with Minerals oral tablet ; 1 tab(s) orally once a day Quantity: 30 Refills: 2 Ordered: 29-Aug-2016 Ju Cisse Start: 29-Aug-2016 Status: Discontinued Generic Substitution Allowed mupirocin 0.02 mg/mg topical ointment (11 sources) RNA Synthetase Inhibitor Antibacterial Start: End: mupirocin (Bactroban) 2 % ointment Indications: Cardiac arrhythmia, unspecified cardiac arrhythmia type Apply 1 application topically in the morning and 1 application in the evening and 1 application before bedtime. 22 g 2 05/27/2023 06/26/2023 Active Comment on above: Apply to affected ar ea. pantoprazole 40 mg delayed release oral tablet (10 sources) Proton Pump Inhibitor Start: End: take 1 tablet by mouth once daily in the morning, then take 3 tablets by mouth before mealtime pantoprazole (ProtoNix) 40 mg EC tablet Indications: HFrEF (heart failure with reduced ejection fraction) (CMS/HCC) Take 1 tablet (40 mg) by mouth once daily in the morning. Take before meals. Do not crush, chew, or split. Do not start before May 25, 2023. 30 tablet 11 05/25/2023 05/24/2024 Active Start: 03-27-2021 take 1 tablet by ar th once daily pantoprazole 40 mg oral delayed release tablet ; 1 tab(s) orally once a day Quantity: 0 Refills: 0 Ordered: 28-Dec-2021 Ju Palacios Start: 28-Dec-2021 Generic Substitution Allowed polyethylene glycol 3350 18951 mg powder for oral solution (1 source) Osmotic Laxative Start: 05-19-2023 take 17 g by mouth every twenty-four hours as needed polyethylene glycol (Glycolax, Miralax) packet 17 g polysaccharide iron complex 150 mg oral capsule (2 sources) Start: 08-29-2016 take 1 capsule by mouth once daily iron polysaccharide (as elemental iron) 150 mg oral capsule ; 1 cap(s) orally once a day Quantity: 30 Refills: 2 Ordered: 29-Aug-2016 Ju Cisse Start: 29-Aug-2016 Status: Discontinued Generic Substitution Allowed rosuvastatin calcium 10 mg oral tablet (20 sources) HMG-CoA Reductase Inhibitor Start: 03-07-2023 take 10 mg by mouth once daily 10 mg, oral, Daily, First dose on 05/19/23 at 1230 Comment on above: Take 10 mg by mouth once daily. spironolactone 25 mg oral tablet (20 sources) Aldosterone Antagonist Start: 12-21-2014 End: 07-09-2023 take 1 tablet by mouth in the morning spironolactone (Aldactone) 25 MG tablet Indications: Chronic systolic heart failure (CMS/HCC) , Bilateral lower extremity edema Take 1 tablet (25 mg) by mouth in the morning. 90 tablet 0 04/10/2023 07/09/2023 Active Comment on above: Take 25 mg by mouth once daily. torsemide 20 mg oral tablet (20 sources) Loop Diuretic Start: 08-29-2017 End: 05-24-2023 torsemide (Demadex) 20 mg tablet Indications: LVAD (left ventricular assist device) present (CMS/HCC) Take 1 tablet (20 mg) by mouth see administration instructions. Take one Saturday, Saturday, and Saturday 30 tablet 0 05/24/2023 Active Start: 08-29-2017 torsemide (DEM ADEX) 20 mg tablet TAKE TWO TABLETS BY MOUTH ONCE DAILY IN THE MORNING -ON SAT, SAT, AND SAT TAKE 1 EXTRA TABLET 0 09/14/2021 Active Start: 08-29-2017 take 3 tablets by mo [facility] once daily Torsemide 20 MG Oral Tablet TAKE 3 TABLETS DAILY Refills: 0 John Mendoza MD Start : 29-Aug-2017 Active Comment on above: TAKE TWO TABLETS BY MOUTH ONCE DAILY IN THE MORNING -ON SAT, SAT, AND SAT TAKE 1 EXTRA TABLET warfarin sodium 4 mg oral tablet (20 sources) Vitamin K Antagonist Start: 05-24-2023 End: 05-23-2024 warfarin (Coumadin) 4 mg tablet Indications: HFrEF (heart failure with reduced ejection fraction) ([facility]) Take as directed per After Visit Summary. 30 tablet 0 05/24/2023 05/23/2024 Active Start: 05-23-2023 warfarin (Coum emile) tablet 1 mg Start: 05-22-2023 End: 05-23-2023 warfarin (Coumadin) tablet 4 .5 mg Start: 05-20-2023 End: 05-22-2023 warfarin (Coumadin) tablet 3 mg Start: 05-19-2023 End: 05-20-2023 warfarin (Coumadin) tablet 4 .5 mg Start: 03-07-2023 take 4 mg by mouth once daily warfarin (Coumadin) 3 MG tablet Take 4 mg by mouth 1 (one) time each day 0 03/07/2023 Active Start: 12-28-2021 take 4.5 mg by mouth every wee k warfarin ; 4.5 milligram(s) orally - (Every 1 week at ,18:00 on Saturday, Saturday, Saturday, Saturday, Saturday) Quantity: 0 Refills: 0 Ordered: 28-Dec-2021 Ju Palacios Start: 28-Dec-2021 Generic Substitution Allowed Start: 03-27-2021 End: 05-24-2023 warfarin 3 mg oral tablet ; 1.5 tab(s) orally Saturday, Saturday, Saturday, Saturday and Saturday Quantity: 0 Refills: 0 Ordered: 26-Dec-2021 Marlen Gibbons Start: 27-Mar-2021 Status: Discontinued Generic Substitution Allowed Start: 03-27-2021 take 4.5 mg by mouth every wee k warfarin ; 4.5 milligram(s) orally once a day - (Every 1 week at ,18:00 on Saturday, Saturday, , Saturday, Saturday) Quantity: 0 Refills: 0 Ordered: 27-Mar-2021 Ju Palacios Start: 27-Mar-2021 Generic Substitution Allowed Start: 09-12-2017 take 1 tablet by ar th once daily warfarin 3 mg oral tablet ; 1 tab(s) orally - (Daily on Saturday, Saturday) Quantity: 0 Refills: 0 Ordered: 12-Sep-2017 ValladaresBambi Start: 12-Sep-2017 Status: Discontinued Generic Substitution Allowed Start: 09-08-2016 take 1 tablet by ar th every week warfarin 3 mg oral tablet ; 1 tab(s) orally - (Every 1 week at ,18:00 on Saturday, ) Quantity: 0 Refills: 0 Ordered: 28-Dec-2021 Ju Palacios Start: 28-Dec-2021 Generic Substitution Allowed Start: 08-31-2016 End: 05-19-2023 warfarin (Coumadin) 2 mg tab let Take by mouth. 0 08/31/2016 05/19/2023 Discontinued (Med List Cleanup) Start: 08-31-2016 Warfarin Sodiu m 2 MG Oral Tablet Quantity: 0 Refills: 0 Ordered: 09-Jun-2020 DO Start : 31-Aug-2016 Active Start: 12-21-2014 End: 05-19-2023 warfarin (Coumadin) 6 mg tab let Take by mouth. 0 12/21/2014 05/19/2023 Discontinued (Med List Cleanup) take 4.5 mg by mouth five times weekly warfarin ; 4.5 milligram(s) orally 5 times a week Quantity: 0 Refills: 0 Ordered: 13-Aug-2016 Angel Luis Richmond Status: Discontinued Generic Substitution Allowed Comment on above: Take 3 mg by mouth a s directed. Completed/Discontinued Medications Medication Drug Class(es) Dates Sig (Normalized) Sig (Original) 12 hr aspirin 25 mg / dipyridamole 200 mg extended release oral capsule (3 sources) Platelet Aggregation Inhibitor, Nonsteroidal Anti-inflammatory Drug Start: 11-05-2017 take 25-200 mg by mouth every twelve hours Aspirin-Dipyrida mole ER 25-200 MG Oral Capsule Extended Release 12 Hour Take one capsule once daily Quantity: 90 Refills: 3 Rey Maurer Start : 05-Nov-2017 Active Start: 09-12-2017 take 1 capsule by mo [facility] every twenty-four hours aspirin-dipyridamole 25 mg-200 mg oral capsule, extended release ; 1 cap(s) orally every 24 hours Quantity: 0 Refills: 0 Ordered: 12-Sep-2017 ValladaresBambi loera Start: 12-Sep-2017 Status: Other Generic Substitution Allowed atorvastatin 10 mg oral tablet (3 sources) HMG-CoA Reductase Inhibitor Start: 05-08-2018 take 1 tablet by mouth at bedtime Atorvastatin Calcium 10 MG Oral Tablet TAKE 1 TABLET AT BEDTIME. Quantity: 3 Refills: 0 Cooper Vaca DO Start : 08-May-2018 Active 30 Tablet Pack Start: 08-29-2016 take 1 tablet by ar once daily atorvastatin 40 mg oral tablet ; 1 tab(s) orally once a day Quantity: 30 Refills: 1 Ordered: 29-Aug-2016 Ju Cisse Start: 29-Aug-2016 Status: Discontinued Generic Substitution Allowed calcium chloride 1 g in dextrose 5 % in water (D5W) 50 mL IV (1 source) Start: 05-19-2023 End: 05-19-2023 calcium chloride 1 g in dextrose 5 % in water (D5W) 50 mL IV 1 ml enoxaparin sodium 100 mg/ml prefilled syringe (18 sources) Low Molecular Weight Heparin Start: 06-17-2019 End: 05-19-2023 enoxaparin (Lovenox) 100 mg/mL syringe Inject under the skin. 0 06/17/2019 05/19/2023 Discontinued (Med List Cleanup) Start: 06-17-2019 inject 100 mg by sub cutaneous injection once as needed Enoxaparin Sodium 100 MG/ML Subcutaneous Solution INJECT 100 mg every twelve hours as needed until INR is between 2.0-3.0. Quantity: 14 Refills: 0 Ordered: 28-Mar-2021 Ju Horn Start : 17-Jun-2019 Active Start: 06-17-2019 Enoxaparin Sod ium 150 MG/ML Subcutaneous Solution Quantity: 0 Refills: 0 Ordered: 09-Jun-2020 DO Start : 17-Jun-2019 Active Start: 06-17-2019 Enoxaparin Sod ium 150 MG/ML Subcutaneous Solution Quantity: 10 Refills: 0 Start : 17-Jun-2019 Active enoxaparin 100 m g/mL injectable solution ; 100 milligram(s) injectable 2 times a day, As Needed until INR 2-3 Quantity: 0 Refills: 0 Ordered: 26-Dec-2021 Marlen Gibbons Status: Discontinued Generic Substitution Allowed Enoxaparin Sodium 100 MG/ML SOLN (14 sources) Start: 06-17-2019 Enoxaparin Sod ium 100 MG/ML SOLN INJECT 100 mg every twelve hours as needed until INR is between 2.0-3.0. Quantity: 14 Refills: 0 Ordered: 28-Mar-2021 je-QFBBFM-Kheorjt APRN-Ju RODRIGUEZ Start : 17-Jun-2019 Active Start: 06-17-2019 Enoxaparin Sod ium 100 MG/ML SOLN INJECT 100 mg every twelve hours as needed until INR is between 2.0-3.0. Quantity: 14 Refills: 0 Ordered: 28-Mar-2021 Neal VASQUEZ-Ju RODRIGUEZ Start : 17-Jun-2019 Active 1 ml fentaNYL 0.05 mg/ml injection (2 sources) Opioid Agonist Start: 05-19-2023 End: 05-19-2023 fentaNYL PF (Sublimaze) injection 50 mcg Start: 05-19-2023 End: 05-19-2023 fentaNYL PF (Sublimaze) inje ction - Omnicell Override Pull 50 ml magnesium sulfate 40 m g/ml injection (2 sources) Start: 05-19-2023 End: 05-19-2023 magnesium sulfate IV 2 g Start: 05-19-2023 End: 05-19-2023 magnesium sulfate IV - Omnic ell Override Pull 5 ml midazolam 1 mg/ml injection (2 sources) Benzodiazepine Start: 05-19-2023 End: 05-19-2023 midazolam (Versed) injection 2 mg Start: 05-19-2023 End: 05-19-2023 midazolam (Versed) injection - Omnicell Override Pull perflutren lipid microspheres (Definity) injection 0.5-10 mL of dilution (1 source) Start: 05-20-2023 End: 05-20-2023 perflutren lipid microspheres (Definity) injection 0.5-10 mL of dilution microencapsulated potassium chloride 20 meq extended release oral tablet (1 source) Start: 05-20-2023 End: 05-20-2023 potassium chloride CR (Klor-Con M20) ER tablet 40 mEq 7 actuat umeclidinium 0.0625 mg/actuat dry powder inhaler (20 sources) Anticholinergic Start: 02-23-2019 End: 01-25-2022 Incruse Ellipta 62.5 MCG/INH AEPB Quantity: 0 Refills: 0 Ordered: 09-Jun-2020 DO Start : 23-Feb-2019 End : 25-Jan-2022 Complete Problems Active Problems Problem Classification Problem Date Documented Da te Episodic/Chronic Acute and unspecified renal failure (18 sources) Acute renal impairment; Translations: [Acute kidney failure with lesion of tubular necrosis] Episodic Acute bronchitis (1 source) Acute bronchitis Onset: 1 03-27-2021 Episodic Acute bronchitis (1 source) Acute bronchitis 03-27-2021 Acute myocardial infarction (20 sources) Myocardial infarction; Translations: [Acute myocardial infarction of unspecified site, episode of care unspecified] Chronic Asthma (1 source) Asthma 03-27-2021 Cancer of prostate (1 source) Malignant tumor of prostate; Translations: [Malignant neoplasm of prostate] Chronic Cardiac dysrhythmias (20 sources) Atrial fibrillation; Translations: [Atrial fibrillation] Onset: 4 05-19-2023 Chronic Chronic kidney disease (10 sources) Chronic kidney disease stage 3A ; Translations: [Stage 3a chronic kidney disease (HCC)] Onset: 3 Chronic Chronic obstructive pulmonary disease and bronchiectasis (20 sources) Chronic obstructive lung disease; Translations: [Chronic airway obstruction, not elsewhere classified] Onset: 1 03-27-2021 Chronic Coagulation and hemorrhagic disorders (6 sources) von Willebrand disorder; Translations: [Von Willebrand's disease] Onset: 2 03-25-2021 Chronic Complication of device; implant or graft (20 sources) Disorder of cardiovascular prostheses and implants; Translations: [Other complications due to other cardiac device, implant, and graft] Episodic Conditions associated with dizziness or vertigo (2 sources) Dizziness; Translations: [Dizziness and giddiness] 03-23-2021 Episodic Conduction disorders (20 sources) Automatic implantable cardiac defibrillator in situ; Translations: [Automatic implantable cardiac defibrillator in situ] Onset: 2 05-21-2023 Chronic Congestive heart failure; nonhypertensive (20 sources) Systolic heart failure stage D; Translations: [Heart failure with reduced ejection fraction] Onset: 2 Resolved: 3 03-25-2021 Chronic Congestive heart failure; nonhypertensive (1 source) Congestive heart failure; nonhypertensive 03-25-2021 Deficiency and other anemia (1 source) Mechanical hemolytic anemia; Translations: [Other non-autoimmune hemolytic anemias] 03-25-2021 Chronic Deficiency and other anemia (20 sources) Anemia; Translations: [Anemia, unspecified] 03-23-2021 Episodic Deficiency and other anemia (1 source) Iron deficiency anemia; Translations: [Iron deficiency anemia, unspecified] 03-25-2021 Episodic Deficiency and other anemia (5 sources) Deficiency and other anemia 03-23-2021 Comment on above: ABNORMAL LABS ANEMIA , UNSPECIFIED ACUTE CHRINIC ANEMIA , MULTIPLE MYELOMA---TO BE ADMITTTED Diabetes mellitus with complications (7 sources) Type 2 diabetes mellitus with unspecified complications; Translations: [Type 2 diabetes mellitus] Onset: 3 Chronic Diabetes mellitus without complication (20 sources) Diabetes mellitus; Translations: [Diabetes mellitus without mention of complication, type II or unspecified type, not stated as uncontrolled] Onset: 3 Resolved: 4 03-23-2021 Chronic Disorders of lipid metabolism (20 sources) Hyperlipidemia; Translations: [Other and unspecified hyperlipidemia] Onset: 3 Chronic Esophageal disorders (20 sources) Gastroesophageal reflux disease; Translations: [Esophageal reflux] Chronic Essential hypertension (20 sources) Hypertensive disorder; Translations: [Unspecified essential hypertension] Onset: 4 05-19-2023 Chronic Fluid and electrolyte disorders (20 sources) Disorder of fluid AND/OR electrolyte; Translations: [Electrolyte and fluid disorders not elsewhere classified] Episodic Gastrointestinal hemorrhage (20 sources) Gastrointestinal hemorrhage; Translations: [Hemorrhage of gastrointestinal tract, unspecified] Episodic Heart valve disorders (20 sources) Aortic valve regurgitation; Translations: [Aortic valve disorders] Onset: 3 Chronic Hypertension with complications and secondary hypertension (3 sources) Benign hypertensive heart disease with congestive heart failure; Translations: [Benign hypertensive heart disease with heart failure] Onset: 1 03-27-2021 Chronic Immunizations and screening for infectious disease (20 sources) Patient encounter status; Translations: [Other specified vaccination] Onset: 2 03-25-2021 Episodic Malaise and fatigue (1 source) Weakness present; Translations: [Other malaise and fatigue] Onset: 1 03-27-2021 Episodic Multiple myeloma (2 sources) Multiple myeloma; Translations: [Multiple myeloma not having achieved remission] Onset: 3 Chronic Neoplasms of unspecified nature or uncertain behavior (12 sources) Monoclonal gammopathy of uncertain significance; Translations: [Monoclonal gammopathy] Onset: 2 Chronic Nutritional deficiencies (3 sources) Vitamin D deficiency, unspecified; Translations: [Vitamin D deficiency] Onset: 2 04-24-2023 Chronic Other aftercare (1 source) Long-term current use of aspirin; Translations: [Long-term (current) use of aspirin] Onset: 1 03-27-2021 Episodic Other aftercare (1 source) Drug indicated; Translations: [Long-term (current) use of other medications] Onset: 1 03-27-2021 Episodic Other aftercare (1 source) Health-related behavior finding; Translations: [Long-term (current) use of other medications] Onset: 1 03-27-2021 Episodic Other aftercare (1 source) Anticoagulant control - finding; Translations: [Long-term (current) use of anticoagulants] Onset: 1 03-27-2021 Episodic Other aftercare (1 source) MCC (current) use of insulin; Translations: [LONG-TERM CURRENT USE OF INSULIN] Onset: 3 Episodic Other circulatory disease (9 sources) Presence of heart assist device; Translations: [PRESENCE OF HEART ASSIST DEVICE] Onset: 8 Chronic Other circulatory disease (20 sources) Left ventricular assist device present; Translations: [Organ or tissue replaced by other means, heart assist device] Onset: 3 03-23-2021 Chronic Other circulatory disease (1 source) H/O cardiac surgery; Translations: [Presence of heart assist device] 05-20-2023 Chronic Other congenital anomalies (2 sources) Disorder of hematopoietic structure; Translations: [Congenital malformation, unspecified] Chronic Other connective tissue disease (20 sources) Swelling of left lower limb; Translations: [Swelling of limb] Episodic Other gastrointestinal disorders (2 sources) Abnormal feces; Translations: [Abnormal feces] Onset: 1 03-27-2021 Episodic Other lower respiratory disease (20 sources) Dyspnea; Translations: [Shortness of breath] Onset: 3 Episodic Other nutritional; endocrine; and metabolic disorders (4 sources) Body mass index 30+ - obesity; Translations: [Body mass index (BMI) 33.0-33.9, adult] Onset: 4 05-27-2023 Chronic Other screening for suspected conditions (not mental disorders or infectious disease) (7 sources) Deviation of international normalized ratio from target range; Translations: [Abnormal coagulation profile] Onset: 2 03-25-2021 Episodic Other upper respiratory disease (2 sources) Allergic disposition; Translations: [Other allergic rhinitis] Onset: 4 05-09-2023 Chronic Pancreatic disorders (not diabetes) (20 sources) Acute pancreatitis; Translations: [Acute pancreatitis] Episodic Beatrice-; endo-; and myocarditis; cardiomyopathy (except that caused by tuberculosis or sexually transmitted disease) (20 sources) Cardiomyopathy, unspecified; Translations: [Cardiomyopathy] Onset: 8 03-25-2021 Chronic Residual codes; unclassified (20 sources) Sleep apnea; Translations: [Unspecified sleep apnea] Chronic Residual codes; unclassified (1 source) Past history of procedure; Translations: [Other postprocedural status] 12-28-2021 Episodic Residual codes; unclassified (2 sources) Bilateral lower limb edema; Translations: [Localized edema] Onset: 3 04-10-2023 Episodic Superficial injury; contusion (1 source) Contusion of foot; Translations: [Contusion of unspecified foot, initial encounter] Onset: 3 Episodic Thyroid disorders (14 sources) Hypothyroidism, unspecified; Translations: [Hypothyroidism] Onset: 2 Chronic Thyroid disorders (20 sources) Disorder of thyroid gland; Translations: [Unspecified disorder of thyroid] Episodic Unclassified (2 sources) DX Onset: 8 Unclassified (1 source) VAD FUV 03-21-2021 Comment on above: VAD FUV Unclassified (2 sources) LVAD (left ventricular assist device) present 03-23-2021 Unclassified (1 source) Chronic anticoagulation 03-25-2021 Unclassified (1 source) Nonischemic cardiomyopathy 03-25-2021 Unclassified (1 source) Subtherapeutic international normalized ratio (INR) 03-25-2021 Unclassified (1 source) PETER (iron deficiency anemia) 03-25-2021 Unclassified (1 source) Antiplatelet or antithrombotic long-term use 03-25-2021 Unclassified (1 source) emt intermediate current use of aspirin 03-27-2021 Unclassified (1 source) Encounter for long-term (current) use of other medications 03-27-2021 Unclassified (1 source) Analgesic use 03-27-2021 Unclassified (1 source) Anticoagulation adequate 03-27-2021 Unclassified (1 source) Ex-tobacco chewer 03-27-2021 Unclassified (1 source) Weakness present 03-27-2021 Unclassified (1 source) FUVVAD 10-03-2021 Comment on above: FUVVAD Unclassified (1 source) MGUS (monoclonal gammopathy of unknown significance) 12-26-2021 Unclassified (1 source) History of bone marrow biopsy 12-28-2021 Unclassified (2 sources) COUGH, UNSPECIFIED; Translations: [COUGH, UNSPECIFIED] Onset: 2 Unclassified (1 source) CONTACT W/AND (SUSP) EXPOS COVID-19; Translations: [CONTACT W/AND (SUSP) EXPOS COVID-19] Onset: 2 Unclassified (2 sources) Lvad Present; Translations: [Lvad Present] Onset: 3 Viral infection (20 sources) Herpes zoster; Translations: [Herpes zoster without mention of complication] Onset: 2 03-25-2021 Episodic Viral infection (1 source) Disease caused by 2019-nCoV 03-25-2021 Past or Other Problems Problem Classification Problem Date Documented Da te Episodic/Chronic Deficiency and other anemia (1 source) Anemia, unspecified; Translations: [Anemia, unspecified] Onset: 08-15-2022 Episodic Mood disorders (4 sources) Mood disorders Onset: 02-14-2023 02-14-2023 Other aftercare (6 sources) Encounter for therapeutic drug level monitoring; Translations: [ENCOUNTER FOR THERAPEUTIC DRUG LEVEL MONITORING] Onset: 04-11-2018 Episodic Other aftercare (3 sources) MCC (current) use of anticoagulants; Translations: [LONG-TERM (CURRENT) USE OF ANTICOAGULANTS] Onset: 04-11-2018 Episodic Other aftercare (20 sources) Long-term current use of anticoagulant; Translations: [Long-term (current) use of anticoagulants] Onset: 01-18-2023 03-25-2021 Episodic Other aftercare (1 source) emt intermediate (current) use of aspirin; Translations: [ENVIRONMENTAL SERVICES ASSISTANT CURRENT USE OF ASPIRIN] Onset: 04-03-2022 Episodic Other aftercare (1 source) Other intermodal dispatcher (current) drug therapy; Translations: [Other intermodal dispatcher (current) drug therapy] Onset: 08-15-2022 Episodic Other circulatory disease (2 sources) Left ventricular assist device present; Translations: [LVAD (left ventricular assist device) present] Other connective tissue disease (2 sources) Swelling of left lower limb; Translations: [Left leg swelling] Other hematologic conditions (1 source) Abnormality of plasma protein, unspecified; Translations: [ABNORMALITY PLASMA PROTEIN UNS] Onset: 09-15-2021 Episodic Other liver diseases (1 source) Unspecified jaundice; Translations: [UNSPECIFIED JAUNDICE] Onset: 09-15-2021 Episodic Other lower respiratory disease (4 sources) Shortness of breath; Translations: [SHORTNESS OF BREATH] Onset: 08-15-2022 Episodic Residual codes; unclassified (20 sources) Awaiting organ transplant status; Translations: [Awaiting transplantation] Resolved: 08-29-2017 Chronic Screening and history of mental health and substance abuse codes (2 sources) Ex-tobacco chewer; Translations: [Personal history of tobacco use] Onset: 03-27-2021 03-27-2021 Episodic Unclassified (2 sources) Patient encounter status; Translations: [History of Encounter for pre-transplant evaluation for heart transplant] Unclassified (1 source) ABNORMAL LABS 03-23-2021 Comment on above: ABNORMAL LABS Unclassified (1 source) COUGH, UNSPECIFIED; Translations: [COUGH, UNSPECIFIED] Onset: 04-01-2022 NEGATED: Highlighted row has not occurred!Residual codes; unclassified (15 sources) Disease Episodic Results Test Name Value Interpretation Reference Range Facility CBC panel Auto (Bld)on 05-24 Erythrocyte distribution width (RBC) [Ratio] 14.6 % High 11.5-14.5 [facility] Comment on above: Performed By: #### T HYDS #### AISHA Monzon ([id number]) [facility] ([facility]) [address] [place] [address] [id number] Hematocrit (Bld) [Volume fraction] 44.0 % Normal 41.0-52.0 [facility] Comment on above: Performed By: #### T HYDS #### AISHA Monzon ([id number]) [facility] ([facility]) [address] [place] [address] [phone] Hemoglobin (Bld) [Mass/Vol] 14.3 g/dL Normal 13.5-17.5 [facility] Comment on above: Performed By: #### T HYDS #### AISHA Monzon ([id number]) [facility] ([facility]) [address] [place] [address] [id number] MCH (RBC) [Entitic mass] 31.0 pg Normal 26.0-34.0 [facility] Comment on above: Performed By: #### T HYDS #### AISHA Monzon ([id number]) [facility] ([facility]) [address] [place] [address] [id number] MCHC (RBC) [Mass/Vol] 32.5 g/dL Normal 32.0-36.0 [facility] Comment on above: Performed By: #### T HYDS #### AISHA Monzon ([id number]) [facility] ([facility]) [address] [place] [address] [id number] MCV (RBC) [Entitic vol] 95 fL Normal 80-100 [facility] Comment on above: Performed By: #### T HYDS #### AISHA Monzon ([id number]) [facility] ([facility]) [address] [place] [address] [phone] Nucleated RBC/100 WBC (Bld) [Ratio] 0.0 /100 WBCs Normal 0.0-0.0 [facility] Comment on above: Performed By: #### T HYDS #### AISHA Monzon ([id number]) [facility] ([facility]) [address] [place] [address] Platelets (Bld) [#/Vol] 120 x10*3/uL Low 150-450 [facility] Comment on above: Performed By: #### T HYDS #### AISHA Monzon ([id number]) [facility] ([facility]) [address] [place] [address] RBC (Bld) [#/Vol] 4.61 x10*6/uL Normal 4.50-5.90 [facility] Comment on above: Performed By: #### T HYDS #### AISHA Monzon ([id number]) [facility] ([facility]) [address] [place] [address] WBC (Bld) [#/Vol] 6.9 x10*3/uL Normal 4.4-11.3 [facility] Comment on above: Performed By: #### T HYDS #### AISHA Monzon ([id number]) [facility] ([facility]) [id number] [place] [address] [id number] Erythrocyte distribution width (RBC) [Ratio] 14.6 % High 11.5 - 14.5 % [facility] Hematocrit (Bld) [Volume fraction] 44.0 % 41.0 - 52.0 % [facility] Hemoglobin (Bld) [Mass/Vol] 14.3 g/dL 13.5 - 17.5 g/dL [facility] Interpretation and review of laboratory results Abnormal [facility] MCH (RBC) [Entitic mass] 31.0 pg 26.0 - 34.0 pg [facility] MCHC (RBC) [Mass/Vol] 32.5 g/dL 32.0 - 36.0 g/dL [facility] MCV (RBC) [Entitic vol] 95 fL 80 - 100 fL [facility] Nucleated RBC/100 WBC (Bld) [Ratio] 0.0 % [facility] Platelets (Bld) [#/Vol] 120 10*3/uL Low [facility] RBC (Bld) [#/Vol] 4.61 10*6/uL [facility] WBC (Bld) [#/Vol] 6.9 10*3/uL [facility] Coagulation tissue factor in ducedon 05-24-2023 PT Coag (PPP) [Time] 30.0 s High 9.8-12.8 [facility] Comment on above: Performed By: #### T HYDS #### AISHA Monzon ([id number]) [facility] ([facility]) [address] [place] [address] [phone] Glucose Test strip manual (B ld) [Mass/Vol]on 05-24-2023 Glucose [Mass/Vol] 139 mg/dL High 74-99 [facility] Comment on above: Performed By: #### 1 [id number] #### AISHA Monzon ([id number]) [facility] ([facility]) [address] [place] [address] [phone] Glucose [Mass/Vol] 139 mg/dL High 74 - 99 mg/dL [facility] Interpretation and review of laboratory results Abnormal [facility] Glucose [Mass/Vol] 131 mg/dL High 74-99 [facility] Comment on above: Performed By: #### T HYDS #### AISHA Monzon ([id number]) [facility] ([facility]) [address] [place] [address] 93285 Glucose [Mass/Vol] 131 mg/dL High 74 - 99 mg/dL [facility] Interpretation and review of laboratory results Abnormal [facility] LDH Lactate to pyruvate reac tion [Catalytic activity/Vol]on 05-24-2023 Interpretation and review of laboratory results Abnormal [facility] Lactate Dehydrogenaseon LDH Lactate to pyruvate reaction [Catalytic activity/Vol] 489 U/L High 84 - 246 U/L [facility] Lactate dehydrogenaseon LDH Lactate to pyruvate reaction [Catalytic activity/Vol] 489 U/L High 84-246 [facility] Comment on above: Performed By: #### 1 0535-3 #### AISHA Monzon ([id number]) [facility] ([facility]) [address] [place], [place] [id number] Magnesiumon 05-24-2023 Magnesium [Mass/Vol] 2.57 mg/dL High 1.60-2.40 [facility] Comment on above: Performed By: #### 1 0535-3 #### AISHA Monzon ([id number]) [facility] ([facility]) [address] [place] [address] Magnesium [Mass/Vol] 2.57 mg/dL High 1.60 - 2.40 mg/dL [facility] No Panel Informationon 05-24 Interpretation and review of laboratory results Abnormal [facility] PT Coag (PPP) [Time]on 05-24 INR Coag (PPP) [Relative time] 2.6 High 0.9-1.1 [facility] Comment on above: Performed By: #### T HYDS #### AISHA Monzon ([id number]) [facility] ([facility]) [address] [place] [address] INR Coag (PPP) [Relative time] 2.6 {INR} High 0.9 - 1.1 [facility] Interpretation and review of laboratory results Abnormal [facility] Protime-INRon 05-24-2023 PT Coag (PPP) [Time] 30.0 s High [facility] Renal function 2000 panelon 05-24-2023 Albumin BCP dye [Mass/Vol] 3.7 g/dL Normal 3.4-5.0 [facility] Comment on above: Performed By: #### 1 0535-3 #### AISHA Monzon ([id number]) [facility] ([facility]) [address] [place] [address] 86593 Anion gap [Moles/Vol] 13 mmol/L Normal 10-20 [facility] Comment on above: Performed By: #### 1 0535-3 #### AISHA Monzon ([id number]) [facility] ([facility]) [address] [place] [address] Calcium [Mass/Vol] 9.4 mg/dL Normal 8.6-10.6 [facility] Comment on above: Performed By: #### 1 0535-3 #### AISHA ALEX L ([id number]) [facility] ([facility]) [address] [place] [address] Chloride [Moles/Vol] 100 mmol/L Normal 98-107 [facility] Comment on above: Performed By: #### 1 0535-3 #### AISHA ALEX L ([id number]) [facility] ([facility]) [address] [place] [address] CO2 [Moles/Vol] 25 mmol/L Normal 21-32 [facility] Comment on above: Performed By: #### 1 0535-3 #### AISHA Monzon ([id number]) [facility] ([facility]) [address] [place] [address] Creatinine [Mass/Vol] 1.33 mg/dL High 0.50-1.30 [facility] Comment on above: Performed By: #### 1 0535-3 #### AISHA ALEX L ([id number]) [facility] ([facility]) [id number] [place] [address] 35969 Glomerular filtration rate/1.73 sq M.predicted 61 mL/min/1.73m*2 Normal >60 [facility] Comment on above: Result Comment: Calc ulations of estimated GFR are performed using the 2020 CKD-EPI Study Refit equation without the race variable for the IDMS-Traceable creatinine methods. https://jasn.asnjournals.org/content//ASN.117522 0061 Performed By: #### 1 0535-3 #### AISHA Monzon ([id number]) [facility] ([facility]) [address] [place] [address] Glucose [Mass/Vol] 126 mg/dL High 74-99 [facility] Comment on above: Performed By: #### 1 0535-3 #### AISHA Monzon ([id number]) [facility] ([facility]) [id number] [place] [address] 73096 Phosphate [Mass/Vol] 3.1 mg/dL Normal 2.5-4.9 [facility] Comment on above: Result Comment: The performance characteristics of phosphorus testing in heparinized plasma have been validated by the individual laboratory site where testing is performed. Testing on heparinized plasma is not approved by the FDA; however, such approval is not necessary. Performed By: #### 1 0535-3 #### AISHA Monzon ([id number]) [facility] ([facility]) [address] [place] [address] 86549 Potassium [Moles/Vol] 4.7 mmol/L Normal 3.5-5.3 [facility] Comment on above: Performed By: #### 1 0535-3 #### AISHA Monzon ([id number]) [facility] ([facility]) [id number] [place] [address] 77768 Sodium [Moles/Vol] 133 mmol/L Low 136-145 [facility] Comment on above: Performed By: #### 1 0535-3 #### AISHA Monzon ([id number]) [facility] ([facility]) [id number] [place] [address] 28893 Urea nitrogen [Mass/Vol] 34 mg/dL High 6-23 [facility] Comment on above: Performed By: #### 1 0535-3 #### AISHA Monzon ([id number]) [facility] ([facility]) [id number] [place] [address] 02631 Albumin BCP dye [Mass/Vol] 3.7 g/dL 3.4 - 5.0 g/dL [facility] Anion gap [Moles/Vol] 13 mmol/L 10 - 2 0 mmol/L [facility] Calcium [Mass/Vol] 9.4 mg/dL 8.6 - 10. 6 mg/dL [facility] Chloride [Moles/Vol] 100 mmol/L 98 - 10 7 mmol/L [facility] CO2 [Moles/Vol] 25 mmol/L 21 - 32 mmol/L [facility] Creatinine [Mass/Vol] 1.33 mg/dL High 0.50 - 1.30 mg/dL [facility] GFR/1.73 sq M.predicted among non-blacks MDRD (S/P/Bld) [Vol rate/Area] 61 mL/min/{1.73_m2} - PINF [facility] Comment on above: Calculations of erica mated GFR are performed using the 2020 CKD-EPI Study Refit equation without the race variable for the IDMS-Traceable creatinine methods. https://jasn.asnjournals.org/content//ASN.492776 0049 Glucose [Mass/Vol] 126 mg/dL High 74 - 99 mg/dL [facility] Phosphate [Mass/Vol] 3.1 mg/dL 2.5 - 4 .9 mg/dL [facility] Comment on above: The performance jean pierre acteristics of phosphorus testing in heparinized plasma have been validated by the individual laboratory site where testing is performed. Testing on heparinized plasma is not approved by the FDA; however, such approval is not necessary. Potassium [Moles/Vol] 4.7 mmol/L 3.5 - 5.3 mmol/L [facility] Sodium [Moles/Vol] 133 mmol/L Low 136 - 145 mmol/L [facility] Urea nitrogen [Mass/Vol] 34 mg/dL High 6 - 23 mg/dL [facility] CBC panel Auto (Bld)on 05-23 Erythrocyte distribution width (RBC) [Ratio] 14.8 % High 11.5-14.5 [facility] Comment on above: Performed By: #### 2 524-7 #### AISHA Monzon ([id number]) [facility] ([facility]) [address] [place] [address] Hematocrit (Bld) [Volume fraction] 48.6 % Normal 41.0-52.0 [facility] Comment on above: Performed By: #### 2 524-7 #### AISHA Monzon ([id number]) [facility] ([facility]) [id number] [place] [address] 32589 Hemoglobin (Bld) [Mass/Vol] 15.6 g/dL Normal 13.5-17.5 [facility] Comment on above: Performed By: #### 2 524-7 #### AISHA Monzon ([id number]) [facility] ([facility]) [id number] [place] [address] 67412 MCH (RBC) [Entitic mass] 30.8 pg Normal 26.0-34.0 [facility] Comment on above: Performed By: #### 2 524-7 #### AISHA Monzon ([id number]) [facility] ([facility]) [address] [place] [address] 65601 MCHC (RBC) [Mass/Vol] 32.1 g/dL Normal 32.0-36.0 [facility] Comment on above: Performed By: #### 2 524-7 #### AISHA Monzon ([id number]) [facility] ([facility]) [id number] [place] [address] 89497 MCV (RBC) [Entitic vol] 96 fL Normal 80-100 [facility] Comment on above: Performed By: #### 2 524-7 #### AISHA Monzon ([id number]) [facility] ([facility]) [address] [place] [address] 20325 Nucleated RBC/100 WBC (Bld) [Ratio] 0.0 /100 WBCs Normal 0.0-0.0 [facility] Comment on above: Performed By: #### 2 524-7 #### AISHA Monzon ([id number]) [facility] ([facility]) [address] [place] [address] 42451 Platelets (Bld) [#/Vol] 141 x10*3/uL Low 150-450 [facility] Comment on above: Performed By: #### 2 524-7 #### AISHA Monzon ([id number]) [facility] ([facility]) [address] [place] [address] RBC (Bld) [#/Vol] 5.07 x10*6/uL Normal 4.50-5.90 [facility] Comment on above: Performed By: #### 2 524-7 #### AISHA Monzon ([id number]) [facility] ([facility]) [address] [place] [address] WBC (Bld) [#/Vol] 7.9 x10*3/uL Normal 4.4-11.3 [facility] Comment on above: Performed By: #### 2 524-7 #### AISHA Monzon ([id number]) [facility] ([facility]) [address] [place] [address] Erythrocyte distribution width (RBC) [Ratio] 14.8 % High 11.5 - 14.5 % [facility] Hematocrit (Bld) [Volume fraction] 48.6 % 41.0 - 52.0 % [facility] Hemoglobin (Bld) [Mass/Vol] 15.6 g/dL 13.5 - 17.5 g/dL [facility] Interpretation and review of laboratory results Abnormal [facility] MCH (RBC) [Entitic mass] 30.8 pg 26.0 - 34.0 pg [facility] MCHC (RBC) [Mass/Vol] 32.1 g/dL 32.0 - 36.0 g/dL [facility] MCV (RBC) [Entitic vol] 96 fL 80 - 100 fL [facility] Nucleated RBC/100 WBC (Bld) [Ratio] 0.0 % [facility] Platelets (Bld) [#/Vol] 141 10*3/uL Low [facility] RBC (Bld) [#/Vol] 5.07 10*6/uL [facility] WBC (Bld) [#/Vol] 7.9 10*3/uL [facility] Coagulation tissue factor in ducedon 05-23-2023 PT Coag (PPP) [Time] 34.4 s High 9.8-12.8 [facility] Comment on above: Performed By: #### 2 524-7 #### AISHA Monzon ([id number]) [facility] ([facility]) [address] [place] [address] Electrophysiology studyon Images from the original result were not included. Technically and surgically uncomplicated generator change. OPERATIVE REPORT Patient: Terry Villalpando Medical Record: [id number] Date of : 1960 Date of Procedure: 05/22/2023 PROCEDURE Defibrillator Generator Change Report PRE-OPERATIVE DIAGNOSIS: Defibrillator Battery Depletion POST-OPERATIVE DIAGNOSIS: same ATTENDING Matias Yip MD [employer] Wiley Ramos MD HISTORY See H&P dated today. PROCEDURE SET-UP The risks, benefits, and alternatives to the procedure and sedation were explained to the patient and informed consent was obtained. The patient was in the fasting state. The patient was brought to the EP laboratory in the post absorptive, non sedated state. One half to one hour prior to the procedure, antibiotics were administered intravenously. A baseline ECG was recorded. A grounding pad was placed on the right thigh. Cutaneous pacing/cardioversion/ defibrillation patch electrodes were placed in the anterior-left posterior positions and connected to external pacer/ cardioverter/defibril lator. Self-adhesive anterior-posterior defibrillation pads were applied and connected to the defibrillator unit. A MCL/12 lead ECG was continuously monitored through out the procedure. Continuous noninvasive monitoring of heart rhythm, oxygen saturation, nasal capnography and blood pressure was established. The patient was set up for monitoring of intracardiac electrograms, telemetered electrograms, telemetered event annotations, pulse oximetry, and sidestream end-tidal CO2. The left* upper chest was prepped and draped in the usual sterile manner. It was allowed to completely air dry. Sterile draping was applied using sterile towels, Ioban and a Steri-Drape to cover the operative field. The image intensifier was draped with a sterile bag and placed over the patient's chest. PROCEDURE NARRATIVE The patient's ICD generator was switched to appropriate intra-procedural mode noninvasively. A two percent lidocaine solution was infiltrated along the old surgical incision overlying the pulse generator. An approximate 3 inch incision was made and carried down to the level of the fibrous capsule surrounding the generator using sharp and blunt dissection and electrocautery. The fibrous capsule was then penetrated being careful not to damage the underlying electrodes. The pulse generator was removed from the pocket. A partial capsulectomy was performed. The pocket was inspected for hemostasis and all bleeders were cauterized. The pulse generator was detached from the electrodes. The exposed distal ends of the electrodes were carefully inspected for integrity of the insulation and conductor coil. The electrodes were then carefully inspected along their length using fluoroscopy. No abnormalities were noted. Chronic endocardial potentials and stimulation thresholds were determined using the pacing system analyzer. These values were deemed acceptable. Using a combination of electrocautery and sharp and blunt dissection in the pre-pectoral subcutaneous tissue, the pocket was modified as needed to accommodate the new device. The pocket was carefully inspected for hemostasis, which was achieved with limited electrocautery. The pocket was vigorously irrigated with an antibiotic solution. The lead pins were carefully placed in their respective ports in the new device header. Care was taken to be sure the lead pins extended beyond the setscrews and that the setscrews were deployed. Gentle traction was placed on each pin to ensure a secure connection. The leads were then carefully coiled under the device and the leads and device were placed in the pocket. After placement of the device in the pocket and hemostasis was achieved the pocket was closed in layers with 0-0, 3-0 deep layers and a 4-0 subcuticular layer. Steristrips were then applied followed by an occlusive dressing. The pocket was inspected with fluoroscopy to ensure there were no retained radio opaque marked sponges. Device interrogation after generator change: RADIOLOGY SUMMARY No fluoroscopy was used. COMPLICATIONS No complications occurred. SUMMARY Technically and surgically uncomplicated generator change. RECOMMENDATIONS Patient to remain in house as needed for monitoring, and outpatient follow up will be arranged. ATTESTATION As the responsible attending physician, I was present and directly participating in all critical portions of the procedure and immediately available during the non-critical portions. [email or web address] [facility] Work Phone: Glucose Test strip manual (B ld) [Mass/Vol]on 05-23-2023 Glucose [Mass/Vol] 198 mg/dL High 74-99 [facility] Comment on above: Performed By: #### T HYDS #### AISHA Monzon ([id number]) [facility] ([facility]) [address] [place] [address] 50969 Glucose [Mass/Vol] 198 mg/dL High 74 - 99 mg/dL [facility] Interpretation and review of laboratory results Abnormal [facility] Glucose [Mass/Vol] 174 mg/dL High 74-99 [facility] Comment on above: Performed By: #### T HYDS #### AISHA Monzon ([id number]) [facility] ([facility]) [address] [place] [address] 65965 Glucose [Mass/Vol] 174 mg/dL High 74 - 99 mg/dL [facility] Interpretation and review of laboratory results Abnormal [facility] Glucose [Mass/Vol] 259 mg/dL High 74-99 [facility] Comment on above: Performed By: #### T HYDS #### AISHA Monzon ([id number]) [facility] ([facility]) [address] [place] [address] 69811 Glucose [Mass/Vol] 259 mg/dL High 74 - 99 mg/dL [facility] Interpretation and review of laboratory results Abnormal [facility] Glucose [Mass/Vol] 173 mg/dL High 74-99 [facility] Comment on above: Performed By: #### 2 524-7 #### AISHA Monzon ([id number]) [facility] ([facility]) [address] [place] [address] 75527 Glucose [Mass/Vol] 173 mg/dL High 74 - 99 mg/dL [facility] Interpretation and review of laboratory results Abnormal [facility] LDH Lactate to pyruvate reac tion [Catalytic activity/Vol]on 05-23-2023 Interpretation and review of laboratory results Abnormal [facility] Lactate Dehydrogenaseon LDH Lactate to pyruvate reaction [Catalytic activity/Vol] 553 U/L High 84 - 246 U/L [facility] Lactate dehydrogenaseon 02-0 LDH Lactate to pyruvate reaction [Catalytic activity/Vol] 553 U/L High 84-246 [facility] Comment on above: Performed By: #### T HYDS #### AISHA Monzon ([id number]) [facility] ([facility]) [address] [place] [address] 49643 Magnesiumon 05-23-2023 Magnesium [Mass/Vol] 2.44 mg/dL High 1.60-2.40 [facility] Comment on above: Performed By: #### T HYDS #### AISHA Monzon ([id number]) [facility] ([facility]) [address] [place] [address] 98629 Magnesium [Mass/Vol] 2.44 mg/dL High 1.60 - 2.40 mg/dL [facility] No Panel Informationon 05-23 Interpretation and review of laboratory results Abnormal [facility] PT Coag (PPP) [Time]on 05-23 INR Coag (PPP) [Relative time] 3.0 High 0.9-1.1 [facility] Comment on above: Performed By: #### 2 524-7 #### AISHA Monzon ([id number]) [facility] ([facility]) [address] [place] [address] 32087 INR Coag (PPP) [Relative time] 3.0 {INR} High 0.9 - 1.1 [facility] Interpretation and review of laboratory results Abnormal [facility] Protime-INRon 05-23-2023 PT Coag (PPP) [Time] 34.4 s High [facility] Renal function 2000 panelon 05-23-2023 Albumin BCP dye [Mass/Vol] 4.1 g/dL Normal 3.4-5.0 [facility] Comment on above: Performed By: #### T HYDS #### AISHA Monzon ([id number]) [facility] ([facility]) [address] [place] [address] 81142 Anion gap [Moles/Vol] 13 mmol/L Normal 10-20 [facility] Comment on above: Performed By: #### T HYDS #### AISHA JOSEER L ([id number]) [facility] ([facility]) [address] [place] [address] Calcium [Mass/Vol] 9.6 mg/dL Normal 8.6-10.6 [facility] Comment on above: Performed By: #### T HYDS #### AISHA SCHMOTZER L ([id number]) [facility] ([facility]) [address] [place] [address] Chloride [Moles/Vol] 97 mmol/L Low 98-107 [facility] Comment on above: Performed By: #### T HYDS #### AISHA HOLLYMOTZER L ([id number]) [facility] ([facility]) [address] [place] [address] CO2 [Moles/Vol] 29 mmol/L Normal 21-32 [facility] Comment on above: Performed By: #### T HYDS #### AISHA HOLLYMOTZER L ([id number]) [facility] ([facility]) [address] [place] [address] Creatinine [Mass/Vol] 1.48 mg/dL High 0.50-1.30 [facility] Comment on above: Performed By: #### T HYDS #### AISHA HOLLYMOTZER L ([id number]) [facility] ([facility]) [address] [place] [address] Glomerular filtration rate/1.73 sq M.predicted 53 mL/min/1.73m*2 Low >60 [facility] Comment on above: Result Comment: Calc ulations of estimated GFR are performed using the 2020 CKD-EPI Study Refit equation without the race variable for the IDMS-Traceable creatinine methods. https://jasn.asnjournals.org/content//ASN.190250 3768 Performed By: #### T HYDS #### AISHA Monzon ([id number]) [facility] ([facility]) [address] [place] [address] Glucose [Mass/Vol] 144 mg/dL High 74-99 [facility] Comment on above: Performed By: #### T HYDS #### AISHA Monzon ([id number]) [facility] ([facility]) [id number] [place] [address] 36725 Phosphate [Mass/Vol] 3.5 mg/dL Normal 2.5-4.9 [facility] Comment on above: Result Comment: The performance characteristics of phosphorus testing in heparinized plasma have been validated by the individual laboratory site where testing is performed. Testing on heparinized plasma is not approved by the FDA; however, such approval is not necessary. Performed By: #### T HYDS #### AISHA Monzon ([id number]) [facility] ([facility]) [address] [place] [address] 24445 Potassium [Moles/Vol] 4.9 mmol/L Normal 3.5-5.3 [facility] Comment on above: Performed By: #### T HYDS #### AISHA Monzon ([id number]) [facility] ([facility]) [address] [place] [address] 93080 Sodium [Moles/Vol] 134 mmol/L Low 136-145 [facility] Comment on above: Performed By: #### T HYDS #### AISHA Monzon ([id number]) [facility] ([facility]) [address] [place] [address] 35171 Urea nitrogen [Mass/Vol] 31 mg/dL High 6-23 [facility] Comment on above: Performed By: #### T HYDS #### AISHA Monzon ([id number]) [facility] ([facility]) [id number] [place] [address] 57282 Albumin BCP dye [Mass/Vol] 4.1 g/dL 3.4 - 5.0 g/dL [facility] Anion gap [Moles/Vol] 13 mmol/L 10 - 2 0 mmol/L [facility] Calcium [Mass/Vol] 9.6 mg/dL 8.6 - 10. 6 mg/dL [facility] Chloride [Moles/Vol] 97 mmol/L Low 98 - 10 7 mmol/L [facility] CO2 [Moles/Vol] 29 mmol/L 21 - 32 mmol/L [facility] Creatinine [Mass/Vol] 1.48 mg/dL High 0.50 - 1.30 mg/dL [facility] GFR/1.73 sq M.predicted among non-blacks MDRD (S/P/Bld) [Vol rate/Area] 53 mL/min/{1.73_m2} Low - PINF [facility] Comment on above: Calculations of erica mated GFR are performed using the 2020 CKD-EPI Study Refit equation without the race variable for the IDMS-Traceable creatinine methods. https://jasn.asnjournals.org/content/early/ASN.370581 5937 Glucose [Mass/Vol] 144 mg/dL High 74 - 99 mg/dL [facility] Phosphate [Mass/Vol] 3.5 mg/dL 2.5 - 4 .9 mg/dL [facility] Comment on above: The performance jean pierre acteristics of phosphorus testing in heparinized plasma have been validated by the individual laboratory site where testing is performed. Testing on heparinized plasma is not approved by the FDA; however, such approval is not necessary. Potassium [Moles/Vol] 4.9 mmol/L 3.5 - 5.3 mmol/L [facility] Sodium [Moles/Vol] 134 mmol/L Low 136 - 145 mmol/L [facility] Urea nitrogen [Mass/Vol] 31 mg/dL High 6 - 23 mg/dL [facility] XR CHEST 2 VIEWSon 4 XR CHEST 2 VIEWS Interpreted By: Torsten Hernandez and Ritchie Brandon STUDY: XR CHEST 2 VIEWS; 05/23/2023 8:15 am INDICATION: Signs/Symptoms:sp generator change. COMPARISON: Chest x-ray 05/22/2023 ACCESSION NUMBER(S): [id number] ORDERING CLINICIAN: WILEY RAMOS FINDINGS: PA and lateral radiographs of the chest were provided. Additional PA dual energy images were also provided. Left-sided approach AICD generator with leads projecting over the right atrium and right ventricle in stable position compared to prior examination. The LVAD is in similar position compared to prior exam. Postsurgical changes consistent with median sternotomy are seen with intact cerclage wires. CARDIOMEDIASTINAL SILHOUETTE: Cardiomediastinal silhouette is enlarged but stable in size and configuration. LUNGS: Similar low lung volumes with similar bronchovascular crowding. Stable trace left-sided pleural effusion. No new focal airspace consolidations. Overall unchanged bibasilar atelectasis. No pneumothorax ABDOMEN: No remarkable upper abdominal findings. BONES: No acute osseous changes. IMPRESSION: 1. Cardiomegaly with satisfactory positioning of left chest wall AICD. 2. Low lung volume/bronchovascula r crowding. Similar trace left-sided pleural effusion with adjacent atelectasis. I personally reviewed the images/study and I agree with the findings as stated by resident Sha Carter. This study was interpreted at [place], [place]. MACRO: None Signed by: Torsten Hernandez 05/23/2023 12:49 PM Dictation workstation: [id number] Normal [facility] XR Chest 2 Viewson 4 1. Cardiomegaly with satisfactory positioning of left chest wall AICD. 2. Low lung volume/bronchovascula r crowding. Similar trace left-sided pleural effusion with adjacent atelectasis. I personally reviewed the images/study and I agree with the findings as stated by resident Sha Carter. This study was interpreted at [place], [place]. MACRO: None Signed by: Torsten Hernandez 05/23/2023 12:49 PM Dictation workstation: [id number] MMODAL Interpreted By: Torsten Hernandez and Ritchie Brandon STUDY: XR CHEST 2 VIEWS; 05/23/2023 8:15 am INDICATION: Signs/Symptoms:sp generator change. COMPARISON: Chest x-ray 05/22/2023 ACCESSION NUMBER(S): [id number] ORDERING CLINICIAN: WILEY RAMOS FINDINGS: PA and lateral radiographs of the chest were provided. Additional PA dual energy images were also provided. Left-sided approach AICD generator with leads projecting over the right atrium and right ventricle in stable position compared to prior examination. The LVAD is in similar position compared to prior exam. Postsurgical changes consistent with median sternotomy are seen with intact cerclage wires. CARDIOMEDIASTINAL SILHOUETTE: Cardiomediastinal silhouette is enlarged but stable in size and configuration. LUNGS: Similar low lung volumes with similar bronchovascular crowding. Stable trace left-sided pleural effusion. No new focal airspace consolidations. Overall unchanged bibasilar atelectasis. No pneumothorax ABDOMEN: No remarkable upper abdominal findings. BONES: No acute osseous changes. MMODAL Torsten Hernandez MD - 05/23/2023 Interpreted By: Torsten Hernandez and Ritchie Brandon STUDY: XR CHEST 2 VIEWS; 05/23/2023 8:15 am INDICATION: Signs/Symptoms:sp generator change. COMPARISON: Chest x-ray 05/22/2023 ACCESSION NUMBER(S): [id number] ORDERING CLINICIAN: WILEY RAMOS FINDINGS: PA and lateral radiographs of the chest were provided. Additional PA dual energy images were also provided. Left-sided approach AICD generator with leads projecting over the right atrium and right ventricle in stable position compared to prior examination. The LVAD is in similar position compared to prior exam. Postsurgical changes consistent with median sternotomy are seen with intact cerclage wires. CARDIOMEDIASTINAL SILHOUETTE: Cardiomediastinal silhouette is enlarged but stable in size and configuration. LUNGS: Similar low lung volumes with similar bronchovascular crowding. Stable trace left-sided pleural effusion. No new focal airspace consolidations. Overall unchanged bibasilar atelectasis. No pneumothorax ABDOMEN: No remarkable upper abdominal findings. BONES: No acute osseous changes. IMPRESSION: 1. Cardiomegaly with satisfactory positioning of left chest wall AICD. 2. Low lung volume/bronchovascula r crowding. Similar trace left-sided pleural effusion with adjacent atelectasis. I personally reviewed the images/study and I agree with the findings as stated by resident Sha Carter. This study was interpreted at [place], [place]. MACRO: None Signed by: Torsten Hernandez 05/23/2023 12:49 PM Dictation workstation: [id number] [facility] Work Phone: [facility] Work Phone: Radiology Study observation (narrative) [facility] Work Phone: XR Chest Single viewon 05-23 1. Satisfactory appearance following exchange of AICD generator. 2. Cardiomegaly again noted on chronic basis. 3. Low lung volumes with associated bronchovascular crowding. 4. Possible trace left-sided pleural effusion/atelectasis. I personally reviewed the images/study and I agree with the findings as stated by Resident Colin Ponce MD. This study was interpreted at [place], [place]. MACRO: NONE. Signed by: Torsten Hernandez 05/23/2023 9:01 AM Dictation workstation: [id number] MMODAL Interpreted By: Torsten Hernandez and Dervishi Mario STUDY: XR CHEST 1 VIEW; 05/22/2023 6:22 pm INDICATION: Signs/Symptoms:sp generator change. COMPARISON: 05/19/2023 ACCESSION NUMBER(S): [id number] ORDERING CLINICIAN: WILEY RAMOS FINDINGS: AP radiograph of the chest was provided. There has been exchange of the AICD generator on the left. Right atrial and right ventricular leads remain in stable position. LVAD device again noted in the field of view. CARDIOMEDIASTINAL SILHOUETTE: Cardiomediastinal silhouette is large but stable in size and configuration. LUNGS: Low lung volumes with associated bronchovascular crowding. Persistent trace blunting of the left costophrenic angle suggesting trace pleural effusion with atelectasis/consolida tion. Right basilar atelectasis. ABDOMEN: No remarkable upper abdominal findings. BONES: No acute osseous changes. MMODAL Torsten Hernandez MD - 05/23/2023 Interpreted By: Torsten Hernandez and Dervishi Mario STUDY: XR CHEST 1 VIEW; 05/22/2023 6:22 pm INDICATION: Signs/Symptoms:sp generator change. COMPARISON: 05/19/2023 ACCESSION NUMBER(S): [id number] ORDERING CLINICIAN: WILEY RAMOS FINDINGS: AP radiograph of the chest was provided. There has been exchange of the AICD generator on the left. Right atrial and right ventricular leads remain in stable position. LVAD device again noted in the field of view. CARDIOMEDIASTINAL SILHOUETTE: Cardiomediastinal silhouette is large but stable in size and configuration. LUNGS: Low lung volumes with associated bronchovascular crowding. Persistent trace blunting of the left costophrenic angle suggesting trace pleural effusion with atelectasis/consolida tion. Right basilar atelectasis. ABDOMEN: No remarkable upper abdominal findings. BONES: No acute osseous changes. IMPRESSION: 1. Satisfactory appearance following exchange of AICD generator. 2. Cardiomegaly again noted on chronic basis. 3. Low lung volumes with associated bronchovascular crowding. 4. Possible trace left-sided pleural effusion/atelectasis. I personally reviewed the images/study and I agree with the findings as stated by Resident Colin Ponce MD. This study was interpreted at [place], [place]. MACRO: NONE. Signed by: Torsten Hernandez 05/23/2023 9:01 AM Dictation workstation: [id number] [facility] Work Phone: XR Chest Single viewOrdered By: Torsten Hernandez on 05-23-2023 [facility] Work Phone: Blood type and Indirect anti body screen panel (Bld)on 05-22-2023 ABO group Nom (Bld) A [facility] Blood group antibody screen Ql Negative [facility] D Ag Ql (Bld) Positive [facility] ABO group Nom (Bld) A Normal [facility] Comment on above: Performed By: #### 2 524-7 #### AISHA Monzon ([id number]) [facility] ([facility]) [address] [place] [address] Blood group antibody screen Ql Negative [facility] Comment on above: Performed By: #### 2 524-7 #### AISHA Monzon ([id number]) [facility] ([facility]) [address] [place], [place] [id number] D Ag Ql (Bld) Positive [facility] Comment on above: Performed By: #### 2 524-7 #### AISHA Monzon ([id number]) [facility] ([facility]) [address] [place] [address] 52090 CBC panel Auto (Bld)on 05-22 Erythrocyte distribution width (RBC) [Ratio] 14.8 % High 11.5-14.5 [facility] Comment on above: Performed By: #### 2 524-7 #### AISHA Monzon ([id number]) [facility] ([facility]) [address] [place] [address] 37284 Hematocrit (Bld) [Volume fraction] 45.5 % Normal 41.0-52.0 [facility] Comment on above: Performed By: #### 2 524-7 #### AISHA Monzon ([id number]) [facility] ([facility]) [address] [place] [address] 93279 Hemoglobin (Bld) [Mass/Vol] 14.8 g/dL Normal 13.5-17.5 [facility] Comment on above: Performed By: #### 2 524-7 #### AISHA Monzon ([id number]) [facility] ([facility]) [address] [place] [address] 29197 MCH (RBC) [Entitic mass] 31.2 pg Normal 26.0-34.0 [facility] Comment on above: Performed By: #### 2 524-7 #### AISHA Monzon ([id number]) [facility] ([facility]) [address] [place] [address] 30048 MCHC (RBC) [Mass/Vol] 32.5 g/dL Normal 32.0-36.0 [facility] Comment on above: Performed By: #### 2 524-7 #### AISHA Monzon ([id number]) [facility] ([facility]) [address] [place] [address] 93783 MCV (RBC) [Entitic vol] 96 fL Normal 80-100 [facility] Comment on above: Performed By: #### 2 524-7 #### AISHA Monzon ([id number]) [facility] ([facility]) [address] [place] [address] Nucleated RBC/100 WBC (Bld) [Ratio] 0.0 /100 WBCs Normal 0.0-0.0 [facility] Comment on above: Performed By: #### 2 524-7 #### AISHA Monzon ([id number]) [facility] ([facility]) [id number] [place] [address] 55157 Platelets (Bld) [#/Vol] 130 x10*3/uL Low 150-450 [facility] Comment on above: Performed By: #### 2 524-7 #### AISHA Monzon ([id number]) [facility] ([facility]) [address] [place] [address] 27286 RBC (Bld) [#/Vol] 4.74 x10*6/uL Normal 4.50-5.90 [facility] Comment on above: Performed By: #### 2 524-7 #### AISHA Monzon ([id number]) [facility] ([facility]) [address] [place] [address] 27160 WBC (Bld) [#/Vol] 6.0 x10*3/uL Normal 4.4-11.3 [facility] Comment on above: Performed By: #### 2 524-7 #### AISHA Monzon ([id number]) [facility] ([facility]) [address] [place] [address] 85114 Erythrocyte distribution width (RBC) [Ratio] 14.8 % High 11.5 - 14.5 % [facility] Hematocrit (Bld) [Volume fraction] 45.5 % 41.0 - 52.0 % [facility] Hemoglobin (Bld) [Mass/Vol] 14.8 g/dL 13.5 - 17.5 g/dL [facility] Interpretation and review of laboratory results Abnormal [facility] MCH (RBC) [Entitic mass] 31.2 pg 26.0 - 34.0 pg [facility] MCHC (RBC) [Mass/Vol] 32.5 g/dL 32.0 - 36.0 g/dL [facility] MCV (RBC) [Entitic vol] 96 fL 80 - 100 fL [facility] Nucleated RBC/100 WBC (Bld) [Ratio] 0.0 % [facility] Platelets (Bld) [#/Vol] 130 10*3/uL Low [facility] RBC (Bld) [#/Vol] 4.74 10*6/uL [facility] WBC (Bld) [#/Vol] 6.0 10*3/uL [facility] Coagulation tissue factor in ducedon 05-22-2023 PT Coag (PPP) [Time] 27.3 s High 9.8-12.8 [facility] Comment on above: Performed By: #### 3 4529-8 #### AISHA Monzon ([id number]) [facility] ([facility]) [address] [place] [address] ECG 12-LEADon 05-22-2023 ECG 12-LEAD Ventricular Rate 81 Atrial Rate 53 QRS Duration 134 Q-T Interval 546 QTC Calculation(Bazett) 634 R [place] -89 T [place] 91 QRS Count 14 Q Onset 198 T Offset 471 QTC Fredericia 603 Diagnosis Ventricular-paced rhythm Left axis deviation Nonspecific intraventricular block Inferior infarct , age undetermined Anterolateral infarct , age undetermined Abnormal ECG When compared with ECG of 19-MAY-2023 17:21, Fusion complexes are now Present Premature ventricular complexes are now Present Confirmed by Matias Mclaughlin ([id number]) on 05/28/2023 3:37:[address] [facility] Glucose Test strip manual (B ld) [Mass/Vol]on 05-22-2023 Glucose [Mass/Vol] 291 mg/dL High 74-99 [facility] Comment on above: Performed By: #### 2 524-7 #### AISHA Monzon ([id number]) [facility] ([facility]) [id number] [place] [address] 19045 Glucose [Mass/Vol] 291 mg/dL High 74 - 99 mg/dL [facility] Interpretation and review of laboratory results Abnormal [facility] Glucose [Mass/Vol] 179 mg/dL High 74-99 [facility] Comment on above: Performed By: #### 2 524-7 #### AISHA Monzon ([id number]) [facility] ([facility]) [address] [place] [address] 45469 Glucose [Mass/Vol] 179 mg/dL High 74 - 99 mg/dL [facility] Interpretation and review of laboratory results Abnormal [facility] Glucose [Mass/Vol] 205 mg/dL High 74-99 [facility] Comment on above: Performed By: #### 3 4529-8 #### AISHA Monzon ([id number]) [facility] ([facility]) [address] [place] [address] 77851 Glucose [Mass/Vol] 205 mg/dL High 74 - 99 mg/dL [facility] Interpretation and review of laboratory results Abnormal [facility] Glucose [Mass/Vol] 297 mg/dL High 74-99 [facility] Comment on above: Performed By: #### 3 4529-8 #### AISHA Monzon ([id number]) [facility] ([facility]) [address] [place] [address] 42384 Lactate Dehydrogenaseon 04-24 LDH Lactate to pyruvate reaction [Catalytic activity/Vol] 531 U/L High 84 - 246 U/L [facility] Lactate dehydrogenaseon 04-24 LDH Lactate to pyruvate reaction [Catalytic activity/Vol] 531 U/L High 84-246 [facility] Comment on above: Performed By: #### 2 524-7 #### AISHA Monzon ([id number]) [facility] ([facility]) [address] [place] [address] 66073 Magnesiumon 05-22-2023 Magnesium [Mass/Vol] 2.15 mg/dL Normal 1.60-2.40 [facility] Comment on above: Performed By: #### 3 4529-8 #### AISHA Monzon ([id number]) [facility] ([facility]) [address] [place] [address] 86911 Magnesium [Mass/Vol] 2.15 mg/dL 1.60 - 2.40 mg/dL [facility] Magnesium [Mass/Vol]on 05-22 Interpretation and review of laboratory results Normal [facility] No Panel Informationon 05-22 Interpretation and review of laboratory results Abnormal [facility] PT Coag (PPP) [Time]on 05-22 INR Coag (PPP) [Relative time] 2.4 High 0.9-1.1 [facility] Comment on above: Performed By: #### 3 4529-8 #### AISHA Monzon ([id number]) [facility] ([facility]) [address] [place] [address] 10251 INR Coag (PPP) [Relative time] 2.4 {INR} High 0.9 - 1.1 [facility] Interpretation and review of laboratory results Abnormal [facility] Protime-INRon 05-22-2023 PT Coag (PPP) [Time] 27.3 s High [facility] Renal function 2000 panelon 05-22-2023 Albumin BCP dye [Mass/Vol] 3.8 g/dL Normal 3.4-5.0 [facility] Comment on above: Performed By: #### 2 524-7 #### AISHA Monzon ([id number]) [facility] ([facility]) [address] [place] [address] 90779 Anion gap [Moles/Vol] 15 mmol/L Normal 10-20 [facility] Comment on above: Performed By: #### 2 524-7 #### AISHA Monzon ([id number]) [facility] ([facility]) [address] [place] [address] 07544 Calcium [Mass/Vol] 9.4 mg/dL Normal 8.6-10.6 [facility] Comment on above: Performed By: #### 2 524-7 #### AISHA Monzon ([id number]) [facility] ([facility]) [address] [place] [address] Chloride [Moles/Vol] 103 mmol/L Normal 98-107 [facility] Comment on above: Performed By: #### 2 524-7 #### AISHA JOSEER L ([id number]) [facility] ([facility]) [address] [place] [address] CO2 [Moles/Vol] 25 mmol/L Normal 21-32 [facility] Comment on above: Performed By: #### 2 524-7 #### AISHA ALEX L ([id number]) [facility] ([facility]) [address] [place] [address] Creatinine [Mass/Vol] 1.32 mg/dL High 0.50-1.30 [facility] Comment on above: Performed By: #### 2 524-7 #### AISHA ALEX L ([id number]) [facility] ([facility]) [address] [place] [address] Glomerular filtration rate/1.73 sq M.predicted 61 mL/min/1.73m*2 Normal >60 [facility] Comment on above: Result Comment: Calc ulations of estimated GFR are performed using the 2020 CKD-EPI Study Refit equation without the race variable for the IDMS-Traceable creatinine methods. https://jasn.asnjournals.org/content//ASN.172970 0949 Performed By: #### 2 524-7 #### AISHA ALEX L ([id number]) [facility] ([facility]) [address] [place] [address] Glucose [Mass/Vol] 165 mg/dL High 74-99 [facility] Comment on above: Performed By: #### 2 524-7 #### AISHA ALEX L ([id number]) [facility] ([facility]) [address] [place] [address] Phosphate [Mass/Vol] 3.5 mg/dL Normal 2.5-4.9 [facility] Comment on above: Result Comment: The performance characteristics of phosphorus testing in heparinized plasma have been validated by the individual laboratory site where testing is performed. Testing on heparinized plasma is not approved by the FDA; however, such approval is not necessary. Performed By: #### 2 524-7 #### AISHA Monzon ([id number]) [facility] ([facility]) [id number] [place] [address] 30976 Potassium [Moles/Vol] 4.5 mmol/L Normal 3.5-5.3 [facility] Comment on above: Performed By: #### 2 524-7 #### AISHA Monzon ([id number]) [facility] ([facility]) [id number] [place] [address] 94519 Sodium [Moles/Vol] 138 mmol/L Normal 136-145 [facility] Comment on above: Performed By: #### 2 524-7 #### AISHA Monzon ([id number]) [facility] ([facility]) [id number] [place] [address] 54123 Urea nitrogen [Mass/Vol] 27 mg/dL High 6-23 [facility] Comment on above: Performed By: #### 2 524-7 #### AISHA Monzon ([id number]) [facility] ([facility]) [id number] [place] [address] 74313 Albumin BCP dye [Mass/Vol] 3.8 g/dL 3.4 - 5.0 g/dL [facility] Anion gap [Moles/Vol] 15 mmol/L 10 - 2 0 mmol/L [facility] Calcium [Mass/Vol] 9.4 mg/dL 8.6 - 10. 6 mg/dL [facility] Chloride [Moles/Vol] 103 mmol/L 98 - 10 7 mmol/L [facility] CO2 [Moles/Vol] 25 mmol/L 21 - 32 mmol/L [facility] Creatinine [Mass/Vol] 1.32 mg/dL High 0.50 - 1.30 mg/dL [facility] GFR/1.73 sq M.predicted among non-blacks MDRD (S/P/Bld) [Vol rate/Area] 61 mL/min/{1.73_m2} - PINF [facility] Comment on above: Calculations of erica mated GFR are performed using the 2020 CKD-EPI Study Refit equation without the race variable for the IDMS-Traceable creatinine methods. https://jasn.asnjournals.org/content//ASN.994424 8395 Glucose [Mass/Vol] 165 mg/dL High 74 - 99 mg/dL [facility] Phosphate [Mass/Vol] 3.5 mg/dL 2.5 - 4 .9 mg/dL [facility] Comment on above: The performance jean pierre acteristics of phosphorus testing in heparinized plasma have been validated by the individual laboratory site where testing is performed. Testing on heparinized plasma is not approved by the FDA; however, such approval is not necessary. Potassium [Moles/Vol] 4.5 mmol/L 3.5 - 5.3 mmol/L [facility] Sodium [Moles/Vol] 138 mmol/L 136 - 145 mmol/L [facility] Urea nitrogen [Mass/Vol] 27 mg/dL High 6 - 23 mg/dL [facility] XR CHEST 1 VIEWon 05-22-2023 XR CHEST 1 VIEW Interpreted By: Torsten Hernandez and Dervishi Mario STUDY: XR CHEST 1 VIEW; 05/22/2023 6:22 pm INDICATION: Signs/Symptoms:sp generator change. COMPARISON: 05/19/2023 ACCESSION NUMBER(S): [id number] ORDERING CLINICIAN: WILEY RAMOS FINDINGS: AP radiograph of the chest was provided. There has been exchange of the AICD generator on the left. Right atrial and right ventricular leads remain in stable position. LVAD device again noted in the field of view. CARDIOMEDIASTINAL SILHOUETTE: Cardiomediastinal silhouette is large but stable in size and configuration. LUNGS: Low lung volumes with associated bronchovascular crowding. Persistent trace blunting of the left costophrenic angle suggesting trace pleural effusion with atelectasis/consolida tion. Right basilar atelectasis. ABDOMEN: No remarkable upper abdominal findings. BONES: No acute osseous changes. IMPRESSION: 1. Satisfactory appearance following exchange of AICD generator. 2. Cardiomegaly again noted on chronic basis. 3. Low lung volumes with associated bronchovascular crowding. 4. Possible trace left-sided pleural effusion/atelectasis. I personally reviewed the images/study and I agree with the findings as stated by Resident Colin Ponce MD. This study was interpreted at [place], [place]. MACRO: NONE. Signed by: Torsten Hernandez 05/23/2023 9:01 AM Dictation workstation: [id number] Normal [facility] XR Chest Single viewon 05-22 Radiology Study observation (narrative) [facility] Work Phone: Basic metabolic 2000 panelon 05-21-2023 Anion gap [Moles/Vol] 24 mmol/L High 10 - 2 0 mmol/L [facility] Calcium [Mass/Vol] 9.7 mg/dL 8.6 - 10. 6 mg/dL [facility] Chloride [Moles/Vol] 104 mmol/L 98 - 10 7 mmol/L [facility] CO2 [Moles/Vol] 16 mmol/L Low 21 - 32 mmol/L [facility] Creatinine [Mass/Vol] 1.24 mg/dL 0.50 - 1.30 mg/dL [facility] GFR/1.73 sq M.predicted among non-blacks MDRD (S/P/Bld) [Vol rate/Area] 66 mL/min/{1.73_m2} - PINF [facility] Comment on above: Calculations of erica mated GFR are performed using the 2020 CKD-EPI Study Refit equation without the race variable for the IDMS-Traceable creatinine methods. https://jasn.asnjournals.org/content/early//ASN.440708 4471 Glucose [Mass/Vol] 349 mg/dL High 74 - 99 mg/dL [facility] Interpretation and review of laboratory results Abnormal [facility] Potassium [Moles/Vol] 4.8 mmol/L 3.5 - 5.3 mmol/L [facility] Sodium [Moles/Vol] 139 mmol/L 136 - 145 mmol/L [facility] Urea nitrogen [Mass/Vol] 22 mg/dL 6 - 23 mg/dL [facility] CBC panel Auto (Bld)on 05-21 Erythrocyte distribution width (RBC) [Ratio] 14.8 % High 11.5-14.5 [facility] Comment on above: Performed By: #### 1 994-3 #### AISHA Monzon ([id number]) [facility] ([facility]) [address] [place] [address] 21401 Hematocrit (Bld) [Volume fraction] 40.8 % Low 41.0-52.0 [facility] Comment on above: Performed By: #### 1 994-3 #### AISHA Monzon ([id number]) [facility] ([facility]) [address] [place] [address] 18258 Hemoglobin (Bld) [Mass/Vol] 14.0 g/dL Normal 13.5-17.5 [facility] Comment on above: Performed By: #### 1 994-3 #### AISHA Monzon ([id number]) [facility] ([facility]) [address] [place] [address] 58312 MCH (RBC) [Entitic mass] 31.5 pg Normal 26.0-34.0 [facility] Comment on above: Performed By: #### 1 994-3 #### AISHA Monzon ([id number]) [facility] ([facility]) [address] [place] [address] 28389 MCHC (RBC) [Mass/Vol] 34.3 g/dL Normal 32.0-36.0 [facility] Comment on above: Performed By: #### 1 994-3 #### AISHA Monzon ([id number]) [facility] ([facility]) [address] [place] [address] 76837 MCV (RBC) [Entitic vol] 92 fL Normal 80-100 [facility] Comment on above: Performed By: #### 1 994-3 #### AISHA Monzon ([id number]) [facility] ([facility]) [address] [place] [address] 24837 Nucleated RBC/100 WBC (Bld) [Ratio] 0.0 /100 WBCs Normal 0.0-0.0 [facility] Comment on above: Performed By: #### 1 994-3 #### AISHA Monzon ([id number]) [facility] ([facility]) [address] [place] [address] Platelets (Bld) [#/Vol] 156 x10*3/uL Normal 150-450 [facility] Comment on above: Performed By: #### 1 994-3 #### AISHA Monzon ([id number]) [facility] ([facility]) [address] [place] [address] RBC (Bld) [#/Vol] 4.45 x10*6/uL Low 4.50-5.90 [facility] Comment on above: Performed By: #### 1 994-3 #### AISHA Monzon ([id number]) [facility] ([facility]) [address] [place] [address] WBC (Bld) [#/Vol] 6.1 x10*3/uL Normal 4.4-11.3 [facility] Comment on above: Performed By: #### 1 994-3 #### AISHA Monzon ([id number]) [facility] ([facility]) [address] [place] [address] Erythrocyte distribution width (RBC) [Ratio] 14.8 % High 11.5 - 14.5 % [facility] Hematocrit (Bld) [Volume fraction] 40.8 % Low 41.0 - 52.0 % [facility] Hemoglobin (Bld) [Mass/Vol] 14.0 g/dL 13.5 - 17.5 g/dL [facility] Interpretation and review of laboratory results Abnormal [facility] MCH (RBC) [Entitic mass] 31.5 pg 26.0 - 34.0 pg [facility] MCHC (RBC) [Mass/Vol] 34.3 g/dL 32.0 - 36.0 g/dL [facility] MCV (RBC) [Entitic vol] 92 fL 80 - 100 fL [facility] Nucleated RBC/100 WBC (Bld) [Ratio] 0.0 % [facility] Platelets (Bld) [#/Vol] 156 10*3/uL [facility] RBC (Bld) [#/Vol] 4.45 10*6/uL Low [facility] WBC (Bld) [#/Vol] 6.1 10*3/uL [facility] Coagulation tissue factor in ducedon 05-21-2023 PT Coag (PPP) [Time] 30.5 s High 9.8-12.8 [facility] Comment on above: Performed By: #### 1 994-3 #### AISHA Monzon ([id number]) [facility] ([facility]) [address] [place] [address] 19721 Glucose Test strip manual (B ld) [Mass/Vol]on 05-21-2023 Glucose [Mass/Vol] 297 mg/dL High 74 - 99 mg/dL [facility] Interpretation and review of laboratory results Abnormal [facility] Glucose [Mass/Vol] 106 mg/dL High 74-99 [facility] Comment on above: Performed By: #### 3 4529-8 #### AISHA Monzon ([id number]) [facility] ([facility]) [address] [place] [address] 36198 Glucose [Mass/Vol] 106 mg/dL High 74 - 99 mg/dL [facility] Interpretation and review of laboratory results Abnormal [facility] Glucose [Mass/Vol] 151 mg/dL High 74-99 [facility] Comment on above: Performed By: #### 3 4529-8 #### AISHA oMnzon ([id number]) [facility] ([facility]) [address] [place] [address] 31772 Glucose [Mass/Vol] 151 mg/dL High 74 - 99 mg/dL [facility] Interpretation and review of laboratory results Abnormal [facility] Glucose [Mass/Vol] 129 mg/dL High 74-99 [facility] Comment on above: Performed By: #### 3 4529-8 #### AISHA Monzon ([id number]) [facility] ([facility]) [address] [place] [address] 69860 Glucose [Mass/Vol] 129 mg/dL High 74 - 99 mg/dL [facility] Interpretation and review of laboratory results Abnormal [facility] LDH Lactate to pyruvate reac tion [Catalytic activity/Vol]on 05-21-2023 Interpretation and review of laboratory results Abnormal [facility] Interpretation and review of laboratory results Abnormal [facility] Lactate Dehydrogenaseon 04-24 LDH Lactate to pyruvate reaction [Catalytic activity/Vol] 601 U/L High 84 - 246 U/L [facility] Comment on above: MILD HEMOLYSIS DETEC SAMUEL. The result may be falsely elevated due to hemolysis or other interferents. Clinical correlation is recommended. Repeat testing may be considered. LDH Lactate to pyruvate reaction [Catalytic activity/Vol] 570 U/L High 84 - 246 U/L [facility] Comment on above: MILD HEMOLYSIS DETEC SAMUEL. The result may be falsely elevated due to hemolysis or other interferents. Clinical correlation is recommended. Repeat testing may be considered. Lactate dehydrogenaseon 04-24 LDH Lactate to pyruvate reaction [Catalytic activity/Vol] 601 U/L High 84-246 [facility] Comment on above: Result Comment: MILD HEMOLYSIS DETECTED. The result may be falsely elevated due to hemolysis or other interferents. Clinical correlation is recommended. Repeat testing may be considered. Performed By: #### 3 4529-8 #### AISHA Monzon ([id number]) [facility] ([facility]) [address] [place] [address] 38800 LDH Lactate to pyruvate reaction [Catalytic activity/Vol] 570 U/L High 84-246 [facility] Comment on above: Result Comment: MILD HEMOLYSIS DETECTED. The result may be falsely elevated due to hemolysis or other interferents. Clinical correlation is recommended. Repeat testing may be considered. Performed By: #### 1 994-3 #### AISHA Monzon ([id number]) [facility] ([facility]) [address] [place] [address] Magnesiumon 05-21-2023 Magnesium [Mass/Vol] 2.05 mg/dL Normal 1.60-2.40 [facility] Comment on above: Performed By: #### 1 994-3 #### AISHA Monzon ([id number]) [facility] ([facility]) [address] [place] [address] Magnesium [Mass/Vol] 2.05 mg/dL 1.60 - 2.40 mg/dL [facility] Magnesium [Mass/Vol]on 05-21 Interpretation and review of laboratory results Normal [facility] Natriuretic peptide B [Mass/ Vol]on 05-21-2023 Interpretation and review of laboratory results Abnormal [facility] Natriuretic peptide B (Bld) [Mass/Vol] 262 pg/mL High 0 - 99 pg/mL [facility] <100 pg/mL - Heart failure unlikely 100-299 pg/mL - Intermediate probability of acute heart failure exacerbation. Correlate with clinical context and patient history. >=300 pg/mL - Heart Failure likely. Correlate with clinical context and patient history. Biotin interference may cause falsely decreased results. Patients taking a Biotin dose of up to 5 mg/day should refrain from taking Biotin for 24 hours before sample collection. Providers may contact their local laboratory for further information. [facility] No Panel Informationon 05-21 [facility] PT Coag (PPP) [Time]on 05-21 INR Coag (PPP) [Relative time] 2.7 High 0.9-1.1 [facility] Comment on above: Performed By: #### 1 994-3 #### AISHA Monzon ([id number]) [facility] ([facility]) [address] [place] [address] INR Coag (PPP) [Relative time] 2.7 {INR} High 0.9 - 1.1 [facility] Interpretation and review of laboratory results Abnormal [facility] Protime-INRon 05-21-2023 PT Coag (PPP) [Time] 30.5 s High [facility] Renal function 2000 panelon 05-21-2023 Albumin BCP dye [Mass/Vol] 3.5 g/dL Normal 3.4-5.0 [facility] Comment on above: Performed By: #### 3 4529-8 #### AISHA Monzon ([id number]) [facility] ([facility]) [address] [place] [address] Anion gap [Moles/Vol] 12 mmol/L Normal 10-20 [facility] Comment on above: Performed By: #### 3 4529-8 #### AISHA Monzon ([id number]) [facility] ([facility]) [id number] [place] [address] 98530 Calcium [Mass/Vol] 8.7 mg/dL Normal 8.6-10.6 [facility] Comment on above: Performed By: #### 3 4529-8 #### AISHA Monzon ([id number]) [facility] ([facility]) [id number] [place] [address] 19862 Chloride [Moles/Vol] 105 mmol/L Normal 98-107 [facility] Comment on above: Performed By: #### 3 4529-8 #### AISHA Monzon ([id number]) [facility] ([facility]) [id number] [place] [address] 98279 CO2 [Moles/Vol] 25 mmol/L Normal 21-32 [facility] Comment on above: Performed By: #### 3 4529-8 #### AISHA Monzon ([id number]) [facility] ([facility]) [address] [place] [address] Creatinine [Mass/Vol] 0.98 mg/dL Normal 0.50-1.30 [facility] Comment on above: Performed By: #### 3 4529-8 #### AISHA Monzon ([id number]) [facility] ([facility]) [address] [place] [address] 94071 Glomerular filtration rate/1.73 sq M.predicted 88 mL/min/1.73m*2 Normal >60 [facility] Comment on above: Result Comment: Calc ulations of estimated GFR are performed using the 2020 CKD-EPI Study Refit equation without the race variable for the IDMS-Traceable creatinine methods. https://jasn.asnjournals.org/content/early//ASN.854017 8217 Performed By: #### 3 4529-8 #### AISHA Monzon ([id number]) [facility] ([facility]) [address] [place] [address] Glucose [Mass/Vol] 133 mg/dL High 74-99 [facility] Comment on above: Performed By: #### 3 4529-8 #### AISHA Monzon ([id number]) [facility] ([facility]) [address] [place] [address] Phosphate [Mass/Vol] 3.2 mg/dL Normal 2.5-4.9 [facility] Comment on above: Result Comment: MILD HEMOLYSIS DETECTED. The result may be falsely elevated due to hemolysis or other interferents. Clinical correlation is recommended. Repeat testing may be considered. The performance characteristics of phosphorus testing in heparinized plasma have been validated by the individual laboratory site where testing is performed. Testing on heparinized plasma is not approved by the FDA; however, such approval is not necessary. Performed By: #### 3 4529-8 #### AISHA Monzon ([id number]) [facility] ([facility]) [address] [place] [address] Potassium [Moles/Vol] 4.9 mmol/L Normal 3.5-5.3 [facility] Comment on above: Result Comment: MILD HEMOLYSIS DETECTED. The result may be falsely elevated due to hemolysis or other interferents. Clinical correlation is recommended. Repeat testing may be considered. Performed By: #### 3 4529-8 #### AISHA ALEX L ([id number]) [facility] ([facility]) [address] [place] [address] Sodium [Moles/Vol] 137 mmol/L Normal 136-145 [facility] Comment on above: Performed By: #### 3 4529-8 #### AISHA ALEX L ([id number]) [facility] ([facility]) [address] [place] [address] Urea nitrogen [Mass/Vol] 22 mg/dL Normal 6-23 [facility] Comment on above: Performed By: #### 3 4529-8 #### AISHA ALEX L ([id number]) [facility] ([facility]) [address] [place] [address] Albumin BCP dye [Mass/Vol] 3.5 g/dL 3.4 - 5.0 g/dL [facility] Anion gap [Moles/Vol] 12 mmol/L 10 - 2 0 mmol/L [facility] Calcium [Mass/Vol] 8.7 mg/dL 8.6 - 10. 6 mg/dL [facility] Chloride [Moles/Vol] 105 mmol/L 98 - 10 7 mmol/L [facility] CO2 [Moles/Vol] 25 mmol/L 21 - 32 mmol/L [facility] Creatinine [Mass/Vol] 0.98 mg/dL 0.50 - 1.30 mg/dL [facility] GFR/1.73 sq M.predicted among non-blacks MDRD (S/P/Bld) [Vol rate/Area] 88 mL/min/{1.73_m2} - PINF [facility] Comment on above: Calculations of erica mated GFR are performed using the 2020 CKD-EPI Study Refit equation without the race variable for the IDMS-Traceable creatinine methods. https://jasn.asnjournals.org/content/early//ASN.672495 7710 Glucose [Mass/Vol] 133 mg/dL High 74 - 99 mg/dL [facility] Interpretation and review of laboratory results Abnormal [facility] Phosphate [Mass/Vol] 3.2 mg/dL 2.5 - 4 .9 mg/dL [facility] Comment on above: MILD HEMOLYSIS DETEC SAMUEL. The result may be falsely elevated due to hemolysis or other interferents. Clinical correlation is recommended. Repeat testing may be considered. The performance characteristics of phosphorus testing in heparinized plasma have been validated by the individual laboratory site where testing is performed. Testing on heparinized plasma is not approved by the FDA; however, such approval is not necessary. Potassium [Moles/Vol] 4.9 mmol/L 3.5 - 5.3 mmol/L [facility] Comment on above: MILD HEMOLYSIS DETEC SAMUEL. The result may be falsely elevated due to hemolysis or other interferents. Clinical correlation is recommended. Repeat testing may be considered. Sodium [Moles/Vol] 137 mmol/L 136 - 145 mmol/L [facility] Urea nitrogen [Mass/Vol] 22 mg/dL 6 - 23 mg/dL [facility] Albumin BCP dye [Mass/Vol] 3.4 g/dL Normal 3.4-5.0 [facility] Comment on above: Performed By: #### 1 994-3 #### AISHA Monzon ([id number]) [facility] ([facility]) [address] [place] [address] 24945 Anion gap [Moles/Vol] 14 mmol/L Normal 10-20 [facility] Comment on above: Performed By: #### 1 994-3 #### AISHA HOLLYMOTZER L ([id number]) [facility] ([facility]) [address] [place] [address] 72604 Calcium [Mass/Vol] 8.7 mg/dL Normal 8.6-10.6 [facility] Comment on above: Performed By: #### 1 994-3 #### AISHA HOLLYMOTZER L ([id number]) [facility] ([facility]) [address] [place] [address] 60344 Chloride [Moles/Vol] 105 mmol/L Normal 98-107 [facility] Comment on above: Performed By: #### 1 994-3 #### AISHA HOLLYMOTZER L ([id number]) [facility] ([facility]) [address] [place] [address] 97704 CO2 [Moles/Vol] 22 mmol/L Normal 21-32 [facility] Comment on above: Performed By: #### 1 994-3 #### AISHA Monzon ([id number]) [facility] ([facility]) [address] [place] [address] Creatinine [Mass/Vol] 1.01 mg/dL Normal 0.50-1.30 [facility] Comment on above: Performed By: #### 1 994-3 #### AISHA Monzon ([id number]) [facility] ([facility]) [address] [place] [address] Glomerular filtration rate/1.73 sq M.predicted 85 mL/min/1.73m*2 Normal >60 [facility] Comment on above: Result Comment: Calc ulations of estimated GFR are performed using the 2020 CKD-EPI Study Refit equation without the race variable for the IDMS-Traceable creatinine methods. https://jasn.asnjournals.org/content/early/ASN.095717 3614 Performed By: #### 1 994-3 #### AISHA Monzon ([id number]) [facility] ([facility]) [address] [place] [address] Glucose [Mass/Vol] 145 mg/dL High 74-99 [facility] Comment on above: Performed By: #### 1 994-3 #### AISHA Monzon ([id number]) [facility] ([facility]) [address] [place] [address] Phosphate [Mass/Vol] 3.2 mg/dL Normal 2.5-4.9 [facility] Comment on above: Result Comment: MILD HEMOLYSIS DETECTED. The result may be falsely elevated due to hemolysis or other interferents. Clinical correlation is recommended. Repeat testing may be considered. The performance characteristics of phosphorus testing in heparinized plasma have been validated by the individual laboratory site where testing is performed. Testing on heparinized plasma is not approved by the FDA; however, such approval is not necessary. Performed By: #### 1 994-3 #### AISHA Monzon ([id number]) [facility] ([facility]) [address] [place] [address] Potassium [Moles/Vol] 4.8 mmol/L Normal 3.5-5.3 [facility] Comment on above: Result Comment: MILD HEMOLYSIS DETECTED. The result may be falsely elevated due to hemolysis or other interferents. Clinical correlation is recommended. Repeat testing may be considered. Performed By: #### 1 994-3 #### AISHA JOSEER L ([id number]) [facility] ([facility]) [address] [place] [address] Sodium [Moles/Vol] 136 mmol/L Normal 136-145 [facility] Comment on above: Performed By: #### 1 994-3 #### AISHA HOLLYMOTZER L ([id number]) [facility] ([facility]) [address] [place] [address] Urea nitrogen [Mass/Vol] 23 mg/dL Normal 6-23 [facility] Comment on above: Performed By: #### 1 994-3 #### AISHA HOLLYMOTZER L ([id number]) [facility] ([facility]) [address] [place] [address] Albumin BCP dye [Mass/Vol] 3.4 g/dL 3.4 - 5.0 g/dL [facility] Anion gap [Moles/Vol] 14 mmol/L 10 - 2 0 mmol/L [facility] Calcium [Mass/Vol] 8.7 mg/dL 8.6 - 10. 6 mg/dL [facility] Chloride [Moles/Vol] 105 mmol/L 98 - 10 7 mmol/L [facility] CO2 [Moles/Vol] 22 mmol/L 21 - 32 mmol/L [facility] Creatinine [Mass/Vol] 1.01 mg/dL 0.50 - 1.30 mg/dL [facility] GFR/1.73 sq M.predicted among non-blacks MDRD (S/P/Bld) [Vol rate/Area] 85 mL/min/{1.73_m2} - PINF [facility] Comment on above: Calculations of erica mated GFR are performed using the 2020 CKD-EPI Study Refit equation without the race variable for the IDMS-Traceable creatinine methods. https://jasn.asnjournals.org/content/early//ASN.351553 9502 Glucose [Mass/Vol] 145 mg/dL High 74 - 99 mg/dL [facility] Interpretation and review of laboratory results Abnormal [facility] Phosphate [Mass/Vol] 3.2 mg/dL 2.5 - 4 .9 mg/dL [facility] Comment on above: MILD HEMOLYSIS DETEC SAMUEL. The result may be falsely elevated due to hemolysis or other interferents. Clinical correlation is recommended. Repeat testing may be considered. The performance characteristics of phosphorus testing in heparinized plasma have been validated by the individual laboratory site where testing is performed. Testing on heparinized plasma is not approved by the FDA; however, such approval is not necessary. Potassium [Moles/Vol] 4.8 mmol/L 3.5 - 5.3 mmol/L [facility] Comment on above: MILD HEMOLYSIS DETEC SAMUEL. The result may be falsely elevated due to hemolysis or other interferents. Clinical correlation is recommended. Repeat testing may be considered. Sodium [Moles/Vol] 136 mmol/L 136 - 145 mmol/L [facility] Urea nitrogen [Mass/Vol] 23 mg/dL 6 - 23 mg/dL [facility] CBC panel Auto (Bld)on 05-20 Erythrocyte distribution width (RBC) [Ratio] 14.9 % High 11.5-14.5 [facility] Comment on above: Performed By: #### 5 8410-2 #### AISHA Monzon ([id number]) [facility] ([facility]) [address] [place] [address] 00695 Hematocrit (Bld) [Volume fraction] 41.9 % Normal 41.0-52.0 [facility] Comment on above: Performed By: #### 5 8410-2 #### AISHA Monzon ([id number]) [facility] ([facility]) [address] [place] [address] 77644 Hemoglobin (Bld) [Mass/Vol] 14.2 g/dL Normal 13.5-17.5 [facility] Comment on above: Performed By: #### 5 8410-2 #### AISHA Monzon ([id number]) [facility] ([facility]) [address] [place] [address] MCH (RBC) [Entitic mass] 30.8 pg Normal 26.0-34.0 [facility] Comment on above: Performed By: #### 5 8410-2 #### AISHA Monzon ([id number]) [facility] ([facility]) [address] [place] [address] 54206 MCHC (RBC) [Mass/Vol] 33.9 g/dL Normal 32.0-36.0 [facility] Comment on above: Performed By: #### 5 8410-2 #### AISHA Monzon ([id number]) [facility] ([facility]) [address] [place] [address] 19644 MCV (RBC) [Entitic vol] 91 fL Normal 80-100 [facility] Comment on above: Performed By: #### 5 8410-2 #### AISHA Monzon ([id number]) [facility] ([facility]) [address] [place] [address] 51408 Nucleated RBC/100 WBC (Bld) [Ratio] 0.0 /100 WBCs Normal 0.0-0.0 [facility] Comment on above: Performed By: #### 5 8410-2 #### AISHA Monzon ([id number]) [facility] ([facility]) [address] [place] [address] 78224 Platelets (Bld) [#/Vol] 119 x10*3/uL Low 150-450 [facility] Comment on above: Performed By: #### 5 8410-2 #### AISHA Monzon ([id number]) [facility] ([facility]) [id number] [place] [address] 39657 RBC (Bld) [#/Vol] 4.61 x10*6/uL Normal 4.50-5.90 [facility] Comment on above: Performed By: #### 5 8410-2 #### AISHA Monzon ([id number]) [facility] ([facility]) [id number] [place] [address] 17619 WBC (Bld) [#/Vol] 6.3 x10*3/uL Normal 4.4-11.3 [facility] Comment on above: Performed By: #### 5 8410-2 #### AISHA Monzon ([id number]) [facility] ([facility]) [address] [place] [address] Erythrocyte distribution width (RBC) [Ratio] 14.9 % High 11.5 - 14.5 % [facility] Hematocrit (Bld) [Volume fraction] 41.9 % 41.0 - 52.0 % [facility] Hemoglobin (Bld) [Mass/Vol] 14.2 g/dL 13.5 - 17.5 g/dL [facility] Interpretation and review of laboratory results Abnormal [facility] MCH (RBC) [Entitic mass] 30.8 pg 26.0 - 34.0 pg [facility] MCHC (RBC) [Mass/Vol] 33.9 g/dL 32.0 - 36.0 g/dL [facility] MCV (RBC) [Entitic vol] 91 fL 80 - 100 fL [facility] Nucleated RBC/100 WBC (Bld) [Ratio] 0.0 % [facility] Platelets (Bld) [#/Vol] 119 10*3/uL Low [facility] RBC (Bld) [#/Vol] 4.61 10*6/uL [facility] WBC (Bld) [#/Vol] 6.3 10*3/uL [facility] Cardiac device check - Inpat ientOrdered By: Matias Yip on 05-20-2023 [facility] Work Phone: Cardiac device check - Inpat ienton 05-20-2023 Radiology Study observation (narrative) [facility] Work Phone: Coagulation tissue factor in ducedon 05-20-2023 PT Coag (PPP) [Time] 28.5 s High 9.8-12.8 [facility] Comment on above: Performed By: #### 5 8410-2 #### AISHA Monzon ([id number]) [facility] ([facility]) [address] [place] [address] 86347 Glucose Test strip manual (B ld) [Mass/Vol]on 05-20-2023 Glucose [Mass/Vol] 185 mg/dL High 74-99 [facility] Comment on above: Performed By: #### 1 994-3 #### AISHA Monzon ([id number]) [facility] ([facility]) [address] [place] [address] 01037 Glucose [Mass/Vol] 185 mg/dL High 74 - 99 mg/dL [facility] Interpretation and review of laboratory results Abnormal [facility] Glucose [Mass/Vol] 133 mg/dL High 74-99 [facility] Comment on above: Performed By: #### 1 994-3 #### AISHA Monzon ([id number]) [facility] [facility]) [address] [place] [address] 80282 Glucose [Mass/Vol] 133 mg/dL High 74 - 99 mg/dL [facility] Interpretation and review of laboratory results Abnormal [facility] Glucose [Mass/Vol] 202 mg/dL High 74-99 [facility] Comment on above: Performed By: #### 1 994-3 #### AISHA Monzon ([id number]) [facility] ([facility]) [address] [place] [address] 37463 Glucose [Mass/Vol] 202 mg/dL High 74 - 99 mg/dL [facility] Interpretation and review of laboratory results Abnormal [facility] Glucose [Mass/Vol] 187 mg/dL High 74-99 [facility] Comment on above: Performed By: #### 5 8410-2 #### AISHA Monzon ([id number]) [facility] ([facility]) [address] [place] [address] 38442 Glucose [Mass/Vol] 187 mg/dL High 74 - 99 mg/dL [facility] Interpretation and review of laboratory results Abnormal [facility] LDH Lactate to pyruvate reac tion [Catalytic activity/Vol]on 05-20-2023 Interpretation and review of laboratory results Abnormal [facility] Lactate Dehydrogenaseon 04-23 LDH Lactate to pyruvate reaction [Catalytic activity/Vol] 429 U/L High 84 - 246 U/L [facility] Lactate dehydrogenaseon 04-23 LDH Lactate to pyruvate reaction [Catalytic activity/Vol] 429 U/L High 84-246 [facility] Comment on above: Performed By: #### 5 8410-2 #### AISHA Monzon ([id number]) [facility] ([facility]) [address] [place] [address] Magnesiumon 05-20-2023 Magnesium [Mass/Vol] 2.23 mg/dL Normal 1.60-2.40 [facility] Comment on above: Performed By: #### 5 8410-2 #### AISHA Monzon ([id number]) [facility] ([facility]) [address] [place] [address] Magnesium [Mass/Vol] 2.23 mg/dL 1.60 - 2.40 mg/dL [facility] Magnesium [Mass/Vol]on 05-20 Interpretation and review of laboratory results Normal [facility] Natriuretic peptide B [Mass/ Vol]on 05-20-2023 Natriuretic peptide B (Bld) [Mass/Vol] 262 pg/mL High 0-99 [facility] Comment on above: Order Comment: <100 pg/mL - Heart failure [id number] pg/mL - Intermediate probability of acute heart failure exacerbation. Correlate with clinical context and patient history. >=300 pg/mL - Heart Failure likely. Correlate with clinical context and patient history.Biotin interference may cause falsely decreased results. Patients taking a Biotin dose of up to 5 mg/day should refrain from taking Biotin for 24 hours before sample collection. Providers may contact their local laboratory for further information. Performed By: #### 1 994-3 #### AISHA Monzon ([id number]) [facility] ([facility]) [address] [place], [place] [id number] No Panel Informationon 05-20 [facility] PT Coag (PPP) [Time]on 05-20 INR Coag (PPP) [Relative time] 2.5 High 0.9-1.1 [facility] Comment on above: Performed By: #### 5 8410-2 #### AISHA Monzon ([id number]) [facility] ([facility]) [id number] [place] [address] 45755 INR Coag (PPP) [Relative time] 2.5 {INR} High 0.9 - 1.1 [facility] Interpretation and review of laboratory results Abnormal [facility] Protime-INRon 05-20-2023 PT Coag (PPP) [Time] 28.5 s High [facility] Renal function 2000 panelon 05-20-2023 Albumin BCP dye [Mass/Vol] 3.5 g/dL Normal 3.4-5.0 [facility] Comment on above: Performed By: #### 5 8410-2 #### AISHA Monzon ([id number]) [facility] ([facility]) [id number] [place] [address] 07346 Anion gap [Moles/Vol] 13 mmol/L Normal 10-20 [facility] Comment on above: Performed By: #### 5 8410-2 #### AISHA Monzon ([id number]) [facility] ([facility]) [id number] [place] [address] 00275 Calcium [Mass/Vol] 9.3 mg/dL Normal 8.6-10.6 [facility] Comment on above: Performed By: #### 5 8410-2 #### AISHA Monzon ([id number]) [facility] ([facility]) [id number] [place] [address] 27645 Chloride [Moles/Vol] 104 mmol/L Normal 98-107 [facility] Comment on above: Performed By: #### 5 8410-2 #### AISHA Monzon ([id number]) [facility] ([facility]) [id number] [place] [address] 31495 CO2 [Moles/Vol] 22 mmol/L Normal 21-32 [facility] Comment on above: Performed By: #### 5 8410-2 #### AISHA Monzon ([id number]) [facility] ([facility]) [address] [place] [address] Creatinine [Mass/Vol] 0.99 mg/dL Normal 0.50-1.30 [facility] Comment on above: Performed By: #### 5 8410-2 #### AISHA Monzon ([id number]) [facility] ([facility]) [id number] [place] [address] 67688 Glomerular filtration rate/1.73 sq M.predicted 87 mL/min/1.73m*2 Normal >60 [facility] Comment on above: Result Comment: Calc ulations of estimated GFR are performed using the 2020 CKD-EPI Study Refit equation without the race variable for the IDMS-Traceable creatinine methods. https://jasn.asnjournals.org/content/early//ASN.422576 6295 Performed By: #### 5 8410-2 #### AISHA Monzon ([id number]) [facility] ([facility]) [id number] [place] [address] 26333 Glucose [Mass/Vol] 157 mg/dL High 74-99 [facility] Comment on above: Performed By: #### 5 8410-2 #### AISHA Monzon ([id number]) [facility] ([facility]) [id number] [place] [address] 40227 Phosphate [Mass/Vol] 3.6 mg/dL Normal 2.5-4.9 [facility] Comment on above: Result Comment: The performance characteristics of phosphorus testing in heparinized plasma have been validated by the individual laboratory site where testing is performed. Testing on heparinized plasma is not approved by the FDA; however, such approval is not necessary. Performed By: #### 5 8410-2 #### AISHA Monzon ([id number]) [facility] ([facility]) [address] [place] [address] Potassium [Moles/Vol] 3.8 mmol/L Normal 3.5-5.3 [facility] Comment on above: Performed By: #### 5 8410-2 #### AISHA ALEX L ([id number]) [facility] ([facility]) [address] [place] [address] Sodium [Moles/Vol] 135 mmol/L Low 136-145 [facility] Comment on above: Performed By: #### 5 8410-2 #### AISHA ALEX L ([id number]) [facility] ([facility]) [address] [place] [address] Urea nitrogen [Mass/Vol] 21 mg/dL Normal 6-23 [facility] Comment on above: Performed By: #### 5 8410-2 #### AISHA ORTIZTZER L ([id number]) [facility] ([facility]) [address] [place] [address] Albumin BCP dye [Mass/Vol] 3.5 g/dL 3.4 - 5.0 g/dL [facility] Anion gap [Moles/Vol] 13 mmol/L 10 - 2 0 mmol/L [facility] Calcium [Mass/Vol] 9.3 mg/dL 8.6 - 10. 6 mg/dL [facility] Chloride [Moles/Vol] 104 mmol/L 98 - 10 7 mmol/L [facility] CO2 [Moles/Vol] 22 mmol/L 21 - 32 mmol/L [facility] Creatinine [Mass/Vol] 0.99 mg/dL 0.50 - 1.30 mg/dL [facility] GFR/1.73 sq M.predicted among non-blacks MDRD (S/P/Bld) [Vol rate/Area] 87 mL/min/{1.73_m2} - PINF [facility] Comment on above: Calculations of erica mated GFR are performed using the 2020 CKD-EPI Study Refit equation without the race variable for the IDMS-Traceable creatinine methods. https://jasn.asnjournals.org/content/early//ASN.846780 4860 Glucose [Mass/Vol] 157 mg/dL High 74 - 99 mg/dL [facility] Interpretation and review of laboratory results Abnormal [facility] Phosphate [Mass/Vol] 3.6 mg/dL 2.5 - 4 .9 mg/dL [facility] Comment on above: The performance jean pierre acteristics of phosphorus testing in heparinized plasma have been validated by the individual laboratory site where testing is performed. Testing on heparinized plasma is not approved by the FDA; however, such approval is not necessary. Potassium [Moles/Vol] 3.8 mmol/L 3.5 - 5.3 mmol/L [facility] Sodium [Moles/Vol] 135 mmol/L Low 136 - 145 mmol/L [facility] Urea nitrogen [Mass/Vol] 21 mg/dL 6 - 23 mg/dL [facility] TRANSTHORACIC ECHO (TTE) COM PLETEon 05-20-2023 TRANSTHORACIC ECHO (TTE) COMPLETE [facility], [address] [place] [address] and TRANSTHORACIC ECHOCARDIOGRAM REPORT Patient Name: TERRY Cayetano VILLALPANDO Reading Physician: [id number] Amin MD Study Date: 05/20/2023 Ordering Provider: [id number] WOOD BARBER MRN/PID: [id number] Fellow: Nurse: Date of /Age: 408/05/1960 / 62 years Business Development Representative: ZULMA Garrett RDCS Gender: M Additional Staff: Height: 180.34 cm Admit Date: Weight: 106.14 kg Admission Status: Inpatient - STAT BSA: 2.25 m2 Department Location: [address] Blood Pressure: /65 mmHg Study Type: TRANSTHORACIC ECHO (TTE) COMPLETE Diagnosis/ICD: Presence of heart assist device-Z95.811 Indication: HFrEF with LVAD CPT Code: Echo Complete w Full Doppler-54746 Patient History: Pertinent History: A-Fib. 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 Study Detail: The following Echo studies were performed: 2D, M-Mode, Doppler and color flow. Technically challenging study due to poor acoustic windows and body habitus. Definity used as a contrast agent for endocardial border definition. Total contrast used for this procedure was 5 mL via IV push. PHYSICIAN INTERPRETATION: Left Ventricle: The left ventricular systolic function is severely decreased, with an estimated ejection fraction of 15-20%. There is global hypokinesis of the left ventricle with minor regional variations. The left ventricular cavity size is moderately dilated. Abnormal (paradoxical) septal motion, consistent with RV pacemaker. Left ventricular diastolic filling was not assessed. LVEDVi 84 ml/m2. Left Atrium: The left atrium is moderately dilated. Right Ventricle: The right ventricle is moderately enlarged. There is severely reduced right ventricular systolic function. A device is visualized in the right ventricle. Right Atrium: The right atrium was not assessed. There is a device visualized in the right atrium. Aortic Valve: The aortic valve appears abnormal. There is mild to moderate aortic valve regurgitation. The aortic valve leaflets do not appear to open. The aortic regurgitation is systo-diastolic, with a vena contracta of 0.35 cm. Mitral Valve: The mitral valve is normal in structure. There is trace mitral valve regurgitation. Tricuspid Valve: The tricuspid valve is structurally normal. Status post triscuspid annular ring repair. There is trace tricuspid regurgitation. The right ventricular systolic pressure is unable to be estimated. Pulmonic Valve: The pulmonic valve is structurally normal. There is trace to mild pulmonic valve regurgitation. Pericardium: There is no pericardial effusion noted. Aorta: The aortic root is normal. Systemic Veins: The inferior vena cava appears to be of normal size. There is IVC inspiratory collapse greater than 50%. In comparison to the previous echocardiogram(s): Compared with study from 08/24/2021, the LV atanomy and function is unchanged. The RV function is again severely decreased. The degree of aortic regurgitation is now mild to moderate but it could be underestimated. LEFT VENTRICULAR ASSIST DEVICE: LVAD: The patient has a(n) Heartmate II LVAD device present. Inflow Cannula: The inflow cannula is visualized in the left ventricular apex. Outflow Cannula: Visualization of the outflow cannula is technically difficult. AV Leaflet Mobility: The aortic valve leaflets do not appear to open. Inflow Velocities: The LVAD cannula inflow velocity is normal (.5-2msec). The inflow velocity is 0.6 m/s. CONCLUSIONS: 1. Left ventricular systolic function is severely decreased with a 15-20% estimated ejection fraction. 2. There is global hypokinesis of the left ventricle with minor regional variations. 3. Abnormal septal motion consistent with RV pacemaker. 4. Left ventricular cavity size is moderately dilated. 5. There is severely reduced right ventricular systolic function. 6. Moderately enlarged right ventricle. 7. The patient has a Heartmate II LVAD device present. 8. The LVAD cannula inflow velocity is normal at 0.6 m/s. 9. The aortic valve leaflets do not appear to open. 10. Mild to moderate aortic valve regurgitation. 11. The aortic regurgitation is systo-diastolic, with a vena contracta of 0.35 cm. 12. The left atrium is moderately dilated. 13. Compared with study from 08/24/2021, the LV atanomy and function is unchanged. The RV function is again severely decreased. The degree of aortic regurgitation is now mild to moderate but it could be underestimated. QUANTITATIVE DATA SUMMARY: 2D MEASUREMENTS: Normal Ranges: Ao Root d: 3.20 cm (2.0-3.7cm) LAs: 5.20 cm (2.7-4.0cm) IVSd: 1.26 cm (0.6-1.1cm) LVPWd: 1.17 cm (0.6-1.1cm) LVIDd: 5.34 cm (3.9-5.9cm) LVIDs: 4.72 cm LV Mass Index: 117.2 g/m2 LV % FS 11.6 % LA VOLUME: Normal Ranges: L (more content not included)... Normal [facility] US Heart TransthoracicOrdere d By: Shorty Amin on 05-20-2023 Body surface area Derived from formula 2.34 m2 [facility] Work Phone: LA vol index A/L 42.4 ml/m2 [facility] Work Phone: LVIDd 5.34 cm [facility] Work Phone: MV avg E/e' ratio 27.43 [facility] Work Phone: MV E/A ratio 3.04 [facility] Work Phone: RV free wall pk S' 4.00 cm/s [facility] Work Phone: Tricuspid annular plane systolic excursion 0.7 cm [facility] Work Phone: [facility] Work Phone: US Heart Transthoracicon [facility], [address] [place] [address] and TRANSTHORACIC ECHOCARDIOGRAM REPORT Patient Name: TERRY VILLALPANDO Reading Physician: [id number] Shorty Amin MD Study Date: 05/20/2023 Ordering Provider: [id number] WOOD BARBER MRN/PID: [id number] Fellow: Nurse: Date of /Age: 408/05/1960 / 62 years Business Development Representative: ZULMA Garrett RDCS Gender: M Additional Staff: Height: 180.34 cm Admit Date: Weight: 106.14 kg Admission Status: Inpatient - STAT BSA: 2.25 m2 Department Location: [address] Blood Pressure: /65 mmHg Study Type: TRANSTHORACIC ECHO (TTE) COMPLETE Diagnosis/ICD: Presence of heart assist device-Z95.811 Indication: HFrEF with LVAD CPT Code: Echo Complete w Full Doppler-[id number] Patient History: Pertinent History: A-Fib. 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 Study Detail: The following Echo studies were performed: 2D, M-Mode, Doppler and color flow. Technically challenging study due to poor acoustic windows and body habitus. Definity used as a contrast agent for endocardial border definition. Total contrast used for this procedure was 5 mL via IV push. PHYSICIAN INTERPRETATION: Left Ventricle: The left ventricular systolic function is severely decreased, with an estimated ejection fraction of 15-20%. There is global hypokinesis of the left ventricle with minor regional variations. The left ventricular cavity size is moderately dilated. Abnormal (paradoxical) septal motion, consistent with RV pacemaker. Left ventricular diastolic filling was not assessed. LVEDVi 84 ml/m2. Left Atrium: The left atrium is moderately dilated. Right Ventricle: The right ventricle is moderately enlarged. There is severely reduced right ventricular systolic function. A device is visualized in the right ventricle. Right Atrium: The right atrium was not assessed. There is a device visualized in the right atrium. Aortic Valve: The aortic valve appears abnormal. There is mild to moderate aortic valve regurgitation. The aortic valve leaflets do not appear to open. The aortic regurgitation is systo-diastolic, with a vena contracta of 0.35 cm. Mitral Valve: The mitral valve is normal in structure. There is trace mitral valve regurgitation. Tricuspid Valve: The tricuspid valve is structurally normal. Status post triscuspid annular ring repair. There is trace tricuspid regurgitation. The right ventricular systolic pressure is unable to be estimated. Pulmonic Valve: The pulmonic valve is structurally normal. There is trace to mild pulmonic valve regurgitation. Pericardium: There is no pericardial effusion noted. Aorta: The aortic root is normal. Systemic Veins: The inferior vena cava appears to be of normal size. There is IVC inspiratory collapse greater than 50%. In comparison to the previous echocardiogram(s): Compared with study from 08/24/2021, the LV atanomy and function is unchanged. The RV function is again severely decreased. The degree of aortic regurgitation is now mild to moderate but it could be underestimated. LEFT VENTRICULAR ASSIST DEVICE: LVAD: The patient has a(n) Heartmate II LVAD device present. Inflow Cannula: The inflow cannula is visualized in the left ventricular apex. Outflow Cannula: Visualization of the outflow cannula is technically difficult. AV Leaflet Mobility: The aortic valve leaflets do not appear to open. Inflow Velocities: The LVAD cannula inflow velocity is normal (.5-2msec). The inflow velocity is 0.6 m/s. CONCLUSIONS: 1. Left ventricular systolic function is severely decreased with a 15-20% estimated ejection fraction. 2. There is global hypokinesis of the left ventricle with minor regional variations. 3. Abnormal septal motion consistent with RV pacemaker. 4. Left ventricular cavity size is moderately dilated. 5. There is severely reduced right ventricular systolic function. 6. Moderately enlarged right ventricle. 7. The patient has a Heartmate II LVAD device present. 8. The LVAD cannula inflow velocity is normal at 0.6 m/s. 9. The aortic valve leaflets do not appear to open. 10. Mild to moderate aortic valve regurgitation. 11. The aortic regurgitation is systo-diastolic, with a vena contracta of 0.35 cm. 12. The left atrium (more content not included)... Shorty Bowens MD - 05/20/2023 [facility], [address] [place] [address] and TRANSTHORACIC ECHOCARDIOGRAM REPORT Patient Name: TERRY VILLALPANDO Reading Physician: [id number] Shorty Amin MD Study Date: 05/20/2023 Ordering Provider: [id number] WOOD BARBER MRN/PID: [id number] Fellow: Nurse: Date of /Age: 408/05/1960 / 62 years Business Development Representative: ZULMA Garrett RDCS Gender: M Additional Staff: Height: 180.34 cm Admit Date: Weight: 106.14 kg Admission Status: Inpatient - STAT BSA: 2.25 m2 Department Location: [address] Blood Pressure: /65 mmHg Study Type: TRANSTHORACIC ECHO (TTE) COMPLETE Diagnosis/ICD: Presence of heart assist device-Z95.811 Indication: HFrEF with LVAD CPT Code: Echo Complete w Full Doppler-[id number] Patient History: Pertinent History: A-Fib. 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 Study Detail: The following Echo studies were performed: 2D, M-Mode, Doppler and color flow. Technically challenging study due to poor acoustic windows and body habitus. Definity used as a contrast agent for endocardial border definition. Total contrast used for this procedure was 5 mL via IV push. PHYSICIAN INTERPRETATION: Left Ventricle: The left ventricular systolic function is severely decreased, with an estimated ejection fraction of 15-20%. There is global hypokinesis of the left ventricle with minor regional variations. The left ventricular cavity size is moderately dilated. Abnormal (paradoxical) septal motion, consistent with RV pacemaker. Left ventricular diastolic filling was not assessed. LVEDVi 84 ml/m2. Left Atrium: The left atrium is moderately dilated. Right Ventricle: The right ventricle is moderately enlarged. There is severely reduced right ventricular systolic function. A device is visualized in the right ventricle. Right Atrium: The right atrium was not assessed. There is a device visualized in the right atrium. Aortic Valve: The aortic valve appears abnormal. There is mild to moderate aortic valve regurgitation. The aortic valve leaflets do not appear to open. The aortic regurgitation is systo-diastolic, with a vena contracta of 0.35 cm. Mitral Valve: The mitral valve is normal in structure. There is trace mitral valve regurgitation. Tricuspid Valve: The tricuspid valve is structurally normal. Status post triscuspid annular ring repair. There is trace tricuspid regurgitation. The right ventricular systolic pressure is unable to be estimated. Pulmonic Valve: The pulmonic valve is structurally normal. There is trace to mild pulmonic valve regurgitation. Pericardium: There is no pericardial effusion noted. Aorta: The aortic root is normal. Systemic Veins: The inferior vena cava appears to be of normal size. There is IVC inspiratory collapse greater than 50%. In comparison to the previous echocardiogram(s): Compared with study from 08/24/2021, the LV atanomy and function is unchanged. The RV function is again severely decreased. The degree of aortic regurgitation is now mild to moderate but it could be underestimated. LEFT VENTRICULAR ASSIST DEVICE: LVAD: The patient has a(n) Heartmate II LVAD device present. Inflow Cannula: The inflow cannula is visualized in the left ventricular apex. Outflow Cannula: Visualization of the outflow cannula is technically difficult. AV Leaflet Mobility: The aortic valve leaflets do not appear to open. Inflow Velocities: The LVAD cannula inflow velocity is normal (.5-2msec). The inflow velocity is 0.6 m/s. CONCLUSIONS: 1. Left ventricular systolic function is severely decreased with a 15-20% estimated ejection fraction. 2. There is global hypokinesis of the left ventricle with minor regional variations. 3. Abnormal septal motion consistent with RV pacemaker. 4. Left ventricular cavity size is moderately dilated. 5. There is severely reduced right ventricular systolic function. 6. Moderately enlarged right ventricle. 7. The patient has a Heartmate II LVAD device present. 8. The LVAD cannula inflow velocity is normal at 0.6 m/s. 9. The aortic valve leaflets do not appear to open. 10. Mild to moderate aortic valve regurgitation. 11. The aortic regurgitation is systo-diastolic, with a vena contracta of 0.35 cm. 12. The left atrium is moderately dilated. 13. Compared with study from 08/24/2021, the LV atanomy and function is unchanged. The RV function is again severely decreased. The degree of aortic regurgitation is now mild to moderate but it could be underestimated. QUANTITATIVE DATA SUMMARY: 2D MEASUREMENTS: Normal Ranges: Ao Root d: 3.20 cm (2.0-3.7cm) LAs: 5.20 cm (2.7-4.0cm) IVSd: 1.26 cm (0.6-1.1cm) LVPWd: 1.17 cm (0.6-1.1cm) LVIDd: 5.34 c (more content not included)... [facility] Work Phone: Arterial Line Insertionon LUBNA Solis 05/19/2023 6:14 PM Arterial Line Insertion Date/Time: 05/19/2023 6:09 PM Performed by: LUBNA Solis Authorized by: LUBNA Solis Consent: Consent obtained: Emergent situation Consent given by: Patient Risks, benefits, and alternatives were discussed: yes Risks discussed: Bleeding, ischemia, infection, pain and repeat procedure [place] protocol: Procedure explained and questions answered to patient or proxy's satisfaction: yes Relevant documents present and verified: yes Test results available: yes Imaging studies available: no Required blood products, implants, devices, and special equipment available: yes Site/side marked: no Immediately prior to procedure, a time out was called: yes Patient identity confirmed: Verbally with patient and arm band Indications: Indications: hemodynamic monitoring Pre-procedure details: Skin preparation: Chlorhexidine Sedation: Sedation type: Anxiolysis Anesthesia: Anesthesia method: Local infiltration Local anesthetic: Lidocaine 1% w/o epi Procedure details: Location: R radial Bandar's test performed: yes Number of attempts: 1 Transducer: waveform confirmed Post-procedure details: Post-procedure: Biopatch applied Procedure completion: Tolerated Comments: Dr. Braxton the anesthesia at bedside and performed the procedure, Natty Metz is a operating room assistant. [facility] Work Phone: Basic metabolic 2000 panelon 05-19-2023 Anion gap [Moles/Vol] 16 mmol/L Normal 10-20 [facility] Comment on above: Performed By: #### 5 8410-2 #### AISHA ALEX L ([id number]) [facility] ([facility]) [id number] [place] [address] 84127 Calcium [Mass/Vol] 9.6 mg/dL Normal 8.6-10.6 [facility] Comment on above: Performed By: #### 5 8410-2 #### AISHA HOLLYMOTZER L ([id number]) [facility] ([facility]) [id number] [place] [address] 01570 Chloride [Moles/Vol] 100 mmol/L Normal 98-107 [facility] Comment on above: Performed By: #### 5 8410-2 #### AISHA SCHMOTZER L ([id number]) [facility] ([facility]) [address] [place] [address] 33546 CO2 [Moles/Vol] 20 mmol/L Low 21-32 [facility] Comment on above: Performed By: #### 5 8410-2 #### AISHA HOLLYMOTZER L ([id number]) [facility] ([facility]) [address] [place] [address] 73750 Creatinine [Mass/Vol] 1.12 mg/dL Normal 0.50-1.30 [facility] Comment on above: Performed By: #### 5 8410-2 #### AISHA HOLLYMOTZER L ([id number]) [facility] ([facility]) [address] [place] [address] 28425 Glomerular filtration rate/1.73 sq M.predicted 75 mL/min/1.73m*2 Normal >60 [facility] Comment on above: Result Comment: Calc ulations of estimated GFR are performed using the 2020 CKD-EPI Study Refit equation without the race variable for the IDMS-Traceable creatinine methods. https://jasn.asnjournals.org/content/early//ASN.476964 3275 Performed By: #### 5 8410-2 #### AISHA Monzon ([id number]) [facility] ([facility]) [address] [place] [address] 35474 Glucose [Mass/Vol] 313 mg/dL High 74-99 [facility] Comment on above: Performed By: #### 5 8410-2 #### AISHA ALEX L ([id number]) [facility] ([facility]) [address] [place] [address] 85581 Potassium [Moles/Vol] 4.1 mmol/L Normal 3.5-5.3 [facility] Comment on above: Performed By: #### 5 8410-2 #### AISHA Monzon ([id number]) [facility] ([facility]) [address] [place] [address] 04248 Sodium [Moles/Vol] 132 mmol/L Low 136-145 [facility] Comment on above: Performed By: #### 5 8410-2 #### AISHA ALEX L ([id number]) [facility] ([facility]) [address] [place] [address] 48589 Urea nitrogen [Mass/Vol] 22 mg/dL Normal 6-23 [facility] Comment on above: Performed By: #### 5 8410-2 #### AISHA ALEX L ([id number]) [facility] ([facility]) [address] [place] [address] 58743 Anion gap [Moles/Vol] 16 mmol/L 10 - 2 0 mmol/L [facility] Calcium [Mass/Vol] 9.6 mg/dL 8.6 - 10. 6 mg/dL [facility] Chloride [Moles/Vol] 100 mmol/L 98 - 10 7 mmol/L [facility] CO2 [Moles/Vol] 20 mmol/L Low 21 - 32 mmol/L [facility] Creatinine [Mass/Vol] 1.12 mg/dL 0.50 - 1.30 mg/dL [facility] GFR/1.73 sq M.predicted among non-blacks MDRD (S/P/Bld) [Vol rate/Area] 75 mL/min/{1.73_m2} - PINF [facility] Comment on above: Calculations of erica mated GFR are performed using the 2020 CKD-EPI Study Refit equation without the race variable for the IDMS-Traceable creatinine methods. https://jasn.asnjournals.org/content//ASN.926717 1771 Glucose [Mass/Vol] 313 mg/dL High 74 - 99 mg/dL [facility] Interpretation and review of laboratory results Abnormal [facility] Potassium [Moles/Vol] 4.1 mmol/L 3.5 - 5.3 mmol/L [facility] Sodium [Moles/Vol] 132 mmol/L Low 136 - 145 mmol/L [facility] Urea nitrogen [Mass/Vol] 22 mg/dL 6 - 23 mg/dL [facility] Anion gap [Moles/Vol] 24 mmol/L High 10-20 [facility] Comment on above: Performed By: #### 3 4529-8 #### AISHA ALEX L ([id number]) [facility] ([facility]) [address] [place] [address] Calcium [Mass/Vol] 9.7 mg/dL Normal 8.6-10.6 [facility] Comment on above: Performed By: #### 3 4529-8 #### AISHA ALEX L ([id number]) [facility] ([facility]) [address] [place] [address] Chloride [Moles/Vol] 104 mmol/L Normal 98-107 [facility] Comment on above: Performed By: #### 3 4529-8 #### AISHA ALEX L ([id number]) [facility] ([facility]) [address] [place] [address] CO2 [Moles/Vol] 16 mmol/L Low 21-32 [facility] Comment on above: Performed By: #### 3 4529-8 #### AISHA ALEX L ([id number]) [facility] ([facility]) [address] [place] [address] Creatinine [Mass/Vol] 1.24 mg/dL Normal 0.50-1.30 [facility] Comment on above: Performed By: #### 3 4529-8 #### AISHA Monzon ([id number]) [facility] ([facility]) [address] [place] [address] Glomerular filtration rate/1.73 sq M.predicted 66 mL/min/1.73m*2 Normal >60 [facility] Comment on above: Result Comment: Calc ulations of estimated GFR are performed using the 2020 CKD-EPI Study Refit equation without the race variable for the IDMS-Traceable creatinine methods. https://jasn.asnjournals.org/content/early//ASN.113160 2519 Performed By: #### 3 4529-8 #### AISHA Monzon ([id number]) [facility] ([facility]) [address] [place] [address] 56461 Glucose [Mass/Vol] 349 mg/dL High 74-99 [facility] Comment on above: Performed By: #### 3 4529-8 #### AISHA Monzon ([id number]) [facility] ([facility]) [address] [place] [address] 23685 Potassium [Moles/Vol] 4.8 mmol/L Normal 3.5-5.3 [facility] Comment on above: Performed By: #### 3 4529-8 #### AISHA Monzon ([id number]) [facility] ([facility]) [address] [place] [address] 81615 Sodium [Moles/Vol] 139 mmol/L Normal 136-145 [facility] Comment on above: Performed By: #### 3 4529-8 #### AISHA Monzon ([id number]) [facility] ([facility]) [address] [place] [address] Urea nitrogen [Mass/Vol] 22 mg/dL Normal 6-23 [facility] Comment on above: Performed By: #### 3 4529-8 #### AISHA Monzon ([id number]) [facility] ([facility]) [address] [place], [place] [address] Blood type and Indirect anti body screen panel (Bld)on 05-19-2023 ABO group Nom (Bld) A [facility] Blood group antibody screen Ql Negative [facility] D Ag Ql (Bld) Positive [facility] ABO group Nom (Bld) A Normal [facility] Comment on above: Performed By: #### 3 4532-2 #### AISHA Monzon ([id number]) [facility] ([facility]) [address] [place], [place] [phone] Blood group antibody screen Ql Negative Normal [facility] Comment on above: Performed By: #### 3 4532-2 #### AISHA Monzon ([id number]) [facility] ([facility]) [address] [place], [place] [phone] D Ag Ql (Bld) Positive Normal [facility] Comment on above: Performed By: #### 3 4532-2 #### AIHSA Monzon ([id number]) [facility] ([facility]) [address] [place] [address] 76072 CBC panel Auto (Bld)on 05-19 Erythrocyte distribution width (RBC) [Ratio] 14.6 % High 11.5-14.5 [facility] Comment on above: Performed By: #### 5 8410-2 #### AISHA Monzon ([id number]) [facility] ([facility]) [address] [place] [address] 09301 Hematocrit (Bld) [Volume fraction] 44.6 % Normal 41.0-52.0 [facility] Comment on above: Performed By: #### 5 8410-2 #### AISHA Monzon ([id number]) [facility] ([facility]) [address] [place], [place] [address] Hemoglobin (Bld) [Mass/Vol] 15.2 g/dL Normal 13.5-17.5 [facility] Comment on above: Performed By: #### 5 8410-2 #### AISHA Monzon ([id number]) [facility] ([facility]) [address] [place] [address] 21567 MCH (RBC) [Entitic mass] 31.1 pg Normal 26.0-34.0 [facility] Comment on above: Performed By: #### 5 8410-2 #### AISHA Monzon ([id number]) [facility] ([facility]) [address] [place] [address] 01227 MCHC (RBC) [Mass/Vol] 34.1 g/dL Normal 32.0-36.0 [facility] Comment on above: Performed By: #### 5 8410-2 #### AISHA Monzon ([id number]) [facility] ([facility]) [address] [place] [address] 11818 MCV (RBC) [Entitic vol] 91 fL Normal 80-100 [facility] Comment on above: Performed By: #### 5 8410-2 #### AISHA Monzon ([id number]) [facility] ([facility]) [address] [place] [address] 84122 Nucleated RBC/100 WBC (Bld) [Ratio] 0.0 /100 WBCs Normal 0.0-0.0 [facility] Comment on above: Performed By: #### 5 8410-2 #### AISHA Monzon ([id number]) [facility] ([facility]) [address] [place] [address] 33686 Platelets (Bld) [#/Vol] 123 x10*3/uL Low 150-450 [facility] Comment on above: Performed By: #### 5 8410-2 #### AISHA Monzon ([id number]) [facility] ([facility]) [address] [place] [address] 79554 RBC (Bld) [#/Vol] 4.89 x10*6/uL Normal 4.50-5.90 [facility] Comment on above: Performed By: #### 5 8410-2 #### AISHA Monzon ([id number]) [facility] ([facility]) [address] [place] [address] WBC (Bld) [#/Vol] 6.5 x10*3/uL Normal 4.4-11.3 [facility] Comment on above: Performed By: #### 5 8410-2 #### AISHA Monzon ([id number]) [facility] ([facility]) [address] [place] [address] Erythrocyte distribution width (RBC) [Ratio] 14.6 % High 11.5 - 14.5 % [facility] Hematocrit (Bld) [Volume fraction] 44.6 % 41.0 - 52.0 % [facility] Hemoglobin (Bld) [Mass/Vol] 15.2 g/dL 13.5 - 17.5 g/dL [facility] Interpretation and review of laboratory results Abnormal [facility] MCH (RBC) [Entitic mass] 31.1 pg 26.0 - 34.0 pg [facility] MCHC (RBC) [Mass/Vol] 34.1 g/dL 32.0 - 36.0 g/dL [facility] MCV (RBC) [Entitic vol] 91 fL 80 - 100 fL [facility] Nucleated RBC/100 WBC (Bld) [Ratio] 0.0 % [facility] Platelets (Bld) [#/Vol] 123 10*3/uL Low [facility] RBC (Bld) [#/Vol] 4.89 10*6/uL [facility] WBC (Bld) [#/Vol] 6.5 10*3/uL [facility] Calcium, ionizedon 4 Calcium.ionized (Bld) [Moles/Vol] 0.84 mmol/L Low 1.1 - 1.33 mmol/L [facility] Comment on above: The performance jean pirere acteristics of ionized calcium tested in heparinized plasma or serum have been validated by the individual laboratory site where testing is performed. Testing on heparinized plasma or serum is not approved by the FDA; however, such approval is not necessary. Calcium.ionizedon 05-19-2023 Calcium.ionized (Bld) [Moles/Vol] 0.84 mmol/L Low 1.1-1.33 [facility] Comment on above: Result Comment: The performance characteristics of ionized calcium tested in heparinized plasma or serum have been validated by the individual laboratory site where testing is performed. Testing on heparinized plasma or serum is not approved by the FDA; however, such approval is not necessary. Performed By: #### 1 994-3 #### AISHA Monzon ([id number]) [facility] ([facility]) [address] [place] [address] Calcium.ionized (Bld) [Moles /Vol]on 05-19-2023 Interpretation and review of laboratory results Abnormal [facility] Digoxinon 05-19-2023 Digoxin [Mass/Vol] 0.46 ng/mL Low 0.80-<2.00 [facility] Comment on above: Order Comment: Digox in measurements can be falsely increased or decreased if patient is receiving Digoxin-binding antibody therapy or Digoxin-like immunoreactive factors are present. Performed By: #### 1 0535-3 #### AISHA Monzon ([id number]) [facility] ([facility]) [address] [place] [address] Digoxin [Mass/Vol] 0.46 ng/mL Low 0.80 - <2.00 [facility] Digoxin [Mass/Vol]on 024 Interpretation and review of laboratory results Abnormal [facility] Digoxin measurements can be falsely increased or decreased if patient is receiving Digoxin-binding antibody therapy or Digoxin-like immunoreactive factors are present. [facility] Electrical Cardioversionon 0 05-19-2023 LUBNA Solis 05/19/2023 6:28 PM Electrical Cardioversion Date/Time: 05/19/2023 6:18 PM Performed by: LUBNA Solis Authorized by: LUBNA Solis Consent: Consent obtained: Verbal and emergent situation Consent given by: Patient Risks, benefits, and alternatives were discussed: yes Alternatives discussed: Rate-control medication, alternative treatment, no treatment and observation [place] protocol: Procedure explained and questions answered to patient or proxy's satisfaction: yes Relevant documents present and verified: no Test results available: yes Imaging studies available: yes Required blood products, implants, devices, and special equipment available: yes Site/side marked: no Immediately prior to procedure, a time out was called: yes Patient identity confirmed: Verbally with patient and arm band Pre-procedure details: Cardioversion basis: Emergent Rhythm: Ventricular tachycardia Attempt one: Cardioversion mode: Asynchronous Waveform: Biphasic Shock (Joules): 200 Shock outcome: Conversion to normal sinus rhythm Post-procedure details: Patient status: Awake Procedure completion: Tolerated well, no immediate complications [facility] Work Phone: [facility] Work Phone: Glucose Test strip manual (B ld) [Mass/Vol]on 05-19-2023 Glucose [Mass/Vol] 304 mg/dL High 74-99 [facility] Comment on above: Performed By: #### 2 341-6 #### AISHA Monzon ([id number]) [facility] ([facility]) [address] [place] [address] 45540 Glucose [Mass/Vol] 304 mg/dL High 74 - 99 mg/dL [facility] Interpretation and review of laboratory results Abnormal [facility] Glucose [Mass/Vol] 330 mg/dL High 74-99 [facility] Comment on above: Performed By: #### 2 341-6 #### AISHA Monzon ([id number]) [facility] ([facility]) [address] [place] [address] 22274 Glucose [Mass/Vol] 330 mg/dL High 74 - 99 mg/dL [facility] Interpretation and review of laboratory results Abnormal [facility] HbA1c (Bld) [Mass fraction]o n 05-19-2023 Average glucose Estimated from glycated hemoglobin (Bld) [Mass/Vol] 209 mg/dL Normal Not Established [facility] Comment on above: Order Comment: Diagn osis of Diabetes-Adults Non-Diabetic: < or = 5.6% Increased risk for developing diabetes: 5.7-6.4% Diagnostic of diabetes: > or = 6.5% Monitoring of Diabetes Age (y)....................... Therapeutic Goal (%) Adults: >18.........................<7.0 Pediatrics: 13-18...................<7.5 Pediatrics: 7-12....................<8.0 Pediatrics: 0-6..................... 7.5-8.5 [place] [employer]. Diabetes Care 33(S1), Apr 2009 Performed By: #### 4 548-4 #### AISHA Monzon ([id number]) [facility] ([facility]) [address] [place] [address] Average glucose Estimated from glycated hemoglobin (Bld) [Mass/Vol] 209 mg/dL Not Established [facility] Interpretation and review of laboratory results Abnormal [facility] Diagnosis of Diabetes-Adults Non-Diabetic: < or = 5.6% Increased risk for developing diabetes: 5.7-6.4% Diagnostic of diabetes: > or = 6.5% Monitoring of Diabetes Age (y).................. ..... Therapeutic Goal (%) Adults: >18.................. .......<7.0 Pediatrics: 13-18................ ...<7.5 Pediatrics: 7-12................. ...<8.0 Pediatrics: 0-6.................. ... 7.5-8.5 [place] [employer]. Diabetes Care 33(S1), Apr 2009 [facility] Hemoglobin A1con 05-19-2023 HbA1c (Bld) [Mass fraction] 8.9 % High see below [facility] Hemoglobin A1c/Hemoglobin.to davin 05-19-2023 HbA1c (Bld) [Mass fraction] 8.9 % High see below [facility] Comment on above: Order Comment: Diagn osis of Diabetes-Adults Non-Diabetic: < or = 5.6% Increased risk for developing diabetes: 5.7-6.4% Diagnostic of diabetes: > or = 6.5% Monitoring of Diabetes Age (y)....................... Therapeutic Goal (%) Adults: >18.........................<7.0 Pediatrics: 13-18...................<7.5 Pediatrics: 7-12....................<8.0 Pediatrics: 0-6..................... 7.5-8.5 [employer] [place] [employer]. Diabetes Care 33(S1)Apr 2009 Performed By: #### 4 548-4 #### AISHA Monzon ([id number]) [facility] ([facility]) [address] [place] [address] 90515 LDH Lactate to pyruvate reac tion [Catalytic activity/Vol]on 05-19-2023 Interpretation and review of laboratory results Abnormal [facility] Lactateon 05-19-2023 Lactate [Moles/Vol] 1.6 mmol/L Normal 0.4-2.0 [facility] Comment on above: Order Comment: Venip uncture immediately after or during the administration of Metamizole may lead to falsely low results. Testing should be performed immediately prior to Metamizole dosing. Performed By: #### 2 524-7 #### AISHA Monzon ([id number]) [facility] ([facility]) [address] [place] [address] 15251 Lactate [Moles/Vol] 1.6 mmol/L 0.4 - 2. 0 mmol/L [facility] Lactate Dehydrogenaseon 04-23 LDH Lactate to pyruvate reaction [Catalytic activity/Vol] 395 U/L High 84 - 246 U/L [facility] Lactate [Moles/Vol]on 2023 Interpretation and review of laboratory results Normal [facility] Venipuncture immediately after or during the administration of Metamizole may lead to falsely low results. Testing should be performed immediately prior to Metamizole dosing. [facility] Lactate dehydrogenaseon 04-23 LDH Lactate to pyruvate reaction [Catalytic activity/Vol] 395 U/L High 84-246 [facility] Comment on above: Performed By: #### 5 8410-2 #### AISHA Monzon ([id number]) [facility] ([facility]) [address] [place], [place] [address] Magnesiumon 05-19-2023 Magnesium [Mass/Vol] 4.81 mg/dL Critically high 1.60 - 2.40 mg/dL [facility] Magnesium [Mass/Vol] 4.81 mg/dL Critically high 1.60-2.40 [facility] Comment on above: Performed By: #### 5 8410-2 #### AISHA Monzon ([id number]) [facility] ([facility]) [address] [place] [address] 26484 Magnesium [Mass/Vol]on 05-19 Interpretation and review of laboratory results Abnormal [facility] PT and aPTT panel Coag (PPP) on 05-19-2023 aPTT Coag (PPP) [Time] 42 s High 27-38 [facility] Comment on above: Order Comment: The A PTT is no longer used for monitoring Unfractionated Heparin Therapy. For monitoring Heparin Therapy, use the Heparin Assay. Performed By: #### 3 4529-8 #### AISHA Monzon ([id number]) [facility] ([facility]) [address] [place] [address] 37846 INR Coag (PPP) [Relative time] 2.4 High 0.9-1.1 [facility] Comment on above: Order Comment: The A PTT is no longer used for monitoring Unfractionated Heparin Therapy. For monitoring Heparin Therapy, use the Heparin Assay. Performed By: #### 3 4529-8 #### AISHA Monzon ([id number]) [facility] ([facility]) [address] [place] [address] 50986 PT Coag (PPP) [Time] 27.8 s High 9.8-12.8 [facility] Comment on above: Order Comment: The A PTT is no longer used for monitoring Unfractionated Heparin Therapy. For monitoring Heparin Therapy, use the Heparin Assay. Performed By: #### 3 4529-8 #### AISHA Monzon ([id number]) [facility] ([facility]) [address] [place] [address] 13144 aPTT Coag (PPP) [Time] 42 s High [facility] INR Coag (PPP) [Relative time] 2.4 {INR} High 0.9 - 1.1 [facility] Interpretation and review of laboratory results Abnormal [facility] PT Coag (PPP) [Time] 27.8 s High [facility] The APTT is no longe r used for monitoring Unfractionated Heparin Therapy. For monitoring Heparin Therapy, use the Heparin Assay. [facility] TSH WITH REFLEX TO FREE T4 I F ABNORMALon 05-19-2023 TSH Qn 0.98 m[IU]/L Normal 0.44-3.98 [facility] Comment on above: Order Comment: TSH t esting is performed using different testing methodology at [facility] than at other [facility]. Direct result comparisons should only be made within the same method. Performed By: #### T HYDS #### AISHA Monzon ([id number]) [facility] ([facility]) [address] [place] [address] 79934 TSH with reflex to Free T4 i f abnormalon 05-19-2023 Interpretation and review of laboratory results Normal [facility] TSH Qn 0.98 m[IU]/L [facility] TSH testing is performed using different testing methodology at [facility] than at other system hospitals. Direct result comparisons should only be made within the same method. [facility] XR CHEST 1 VIEWon 05-19-2023 XR CHEST 1 VIEW Interpreted By: Kb Antonio and Meyers Emily STUDY: XR CHEST 1 VIEW; 05/19/2023 2:30 pm INDICATION: Signs/Symptoms:admit CXR. COMPARISON: Chest radiograph 03/22/2021 ACCESSION NUMBER(S): [id number] ORDERING CLINICIAN: WOOD BARBER FINDINGS: AP radiograph of the chest was provided. Left chest wall pacemaker with leads projecting over the expected location of the right atrium and right ventricle, unchanged when compared to prior exam. Postsurgical change of prior median sternotomy. LVAD device in place. CARDIOMEDIASTINAL SILHOUETTE: Cardiomediastinal silhouette is enlarged, stable in size and configuration. LUNGS: Mild perihilar vascular congestion, which is similar when compared to prior exam. No focal consolidation, pleural effusion, or pneumothorax. ABDOMEN: No remarkable upper abdominal findings. BONES: No acute osseous changes. IMPRESSION: 1. Mild perihilar vascular congestion, which is similar when compared to prior exam. Recommend correlation with patient's volume status. 2. Medical lines and devices as detailed above. I personally reviewed the images/study, and I agree with the findings as stated above. This study was interpreted at [place], [place]. MACRO: None Signed by: Kb Antonio 05/19/2023 5:15 PM Dictation workstation: [id number] Normal [facility] XR Chest Single viewon 05-19 1. Mild perihilar vascular congestion, which is similar when compared to prior exam. Recommend correlation with patient's volume status. 2. Medical lines and devices as detailed above. I personally reviewed the images/study, and I agree with the findings as stated above. This study was interpreted at [place], [place]. MACRO: None Signed by: Kb Antonio 05/19/2023 5:15 PM Dictation workstation: [id number] Interpreted By: Kb Antonio and Meyers Emily STUDY: XR CHEST 1 VIEW; 05/19/2023 2:30 pm INDICATION: Signs/Symptoms:admit CXR. COMPARISON: Chest radiograph 03/22/2021 ACCESSION NUMBER(S): [id number] ORDERING CLINICIAN: WOOD BARBER FINDINGS: AP radiograph of the chest was provided. Left chest wall pacemaker with leads projecting over the expected location of the right atrium and right ventricle, unchanged when compared to prior exam. Postsurgical change of prior median sternotomy. LVAD device in place. CARDIOMEDIASTINAL SILHOUETTE: Cardiomediastinal silhouette is enlarged, stable in size and configuration. LUNGS: Mild perihilar vascular congestion, which is similar when compared to prior exam. No focal consolidation, pleural effusion, or pneumothorax. ABDOMEN: No remarkable upper abdominal findings. BONES: No acute osseous changes. Levon Pacheco MD - 05/19/2023 Interpreted By: Kb Antonio and Meyers Emily STUDY: XR CHEST 1 VIEW; 05/19/2023 2:30 pm INDICATION: Signs/Symptoms:admit CXR. COMPARISON: Chest radiograph 03/22/2021 ACCESSION NUMBER(S): [id number] ORDERING CLINICIAN: WOOD BARBER FINDINGS: AP radiograph of the chest was provided. Left chest wall pacemaker with leads projecting over the expected location of the right atrium and right ventricle, unchanged when compared to prior exam. Postsurgical change of prior median sternotomy. LVAD device in place. CARDIOMEDIASTINAL SILHOUETTE: Cardiomediastinal silhouette is enlarged, stable in size and configuration. LUNGS: Mild perihilar vascular congestion, which is similar when compared to prior exam. No focal consolidation, pleural effusion, or pneumothorax. ABDOMEN: No remarkable upper abdominal findings. BONES: No acute osseous changes. IMPRESSION: 1. Mild perihilar vascular congestion, which is similar when compared to prior exam. Recommend correlation with patient's volume status. 2. Medical lines and devices as detailed above. I personally reviewed the images/study, and I agree with the findings as stated above. This study was interpreted at [place], [place]. MACRO: None Signed by: Kb Antonio 05/19/2023 5:15 PM Dictation workstation: [id number] [facility] Work Phone: Radiology Study observation (narrative) [facility] Work Phone: XR Chest Single viewOrdered By: Levon Antonio on 05-19-2023 [facility] Work Phone: ED Note-Physicianon 04-10-20 ED Note-Physician Basic Information Time Seen: Leonid CAMPOSCee Mik 04/07/2023 15:38 Chief Complaint Pt presents to ED with complaints of right foot pain after injury yesterday History of Present Illness 62-year-old male presents to the ED complaining of right foot pain. Patient reports that yesterday he slipped walking down the bottom step, striking his foot and toes on the ground jamming them. Patient complaining of pain, swelling, bruising to the top part of his foot near the base of his toes on the right foot. Patient states he did scrape the knuckles on his right hand and his right elbow. He is able to move his arm without any difficulty. Did not hit his head, no LOC, no other pain or injuries. Has been ambulatory but has to walk on the outside of his foot. Review of Systems All organ systems are reviewed. Pertinent positive and negative findings as mentioned in the HPI. Physical Exam Vitals & Measurements T: 36.3 ?C(Oral) HR: 80(Peripheral) RR: 18 BP: 82/0 SpO2: 96% HT: 180 cm WT: 115 kg BMI: 35.49 GENERAL APPEARANCE: Well developed, well nourished, alert and cooperative, and appears to be in no acute distress. HEAD: normocephalic, atraumatic EYES: PERRL, EOMI. Vision is grossly intact. EARS: External auditory canals clear, hearing grossly intact. NOSE: No nasal discharge. THROAT: Oral cavity and pharynx normal. Oral mucosa moist. MUSCULOSKELETAL: Adequately aligned spine. ROM intact spine and extremities. Ecchymosis and edema noted over the dorsal aspect of the bases of the right MTP joints. No pain or tenderness over the right ankle, knee, hip. BACK: Examination of the spine reveals normal gait and posture, no spinal deformity. NEUROLOGICAL: CN grossly intact. Strength and sensation symmetric and intact throughout. SKIN: Skin normal color, texture and turgor with no lesions or eruptions. Assessment/Plan 1. Foot contusion (S90.30XA: Contusion of unspecified foot, initial encounter) Orders: XR Foot 3+ Views Right 62-year-old male presents to the ED with complaints of right foot pain after a fall that occurred yesterday. In the ED patient is afebrile, heart rate within normal limits. Blood pressure unable to read due to patient having an LVAD. Patient fell yesterday, did not hit his head, no LOC. On physical exam only evidence of injury to the right foot. X-rays show no acute fracture. Patient placed in walking boot and discharged home with instructions to follow PCP. Educate on supportive care. He is to return to the ED with any new or worsening symptoms. Patient voices understanding and is agreeable to plan Disposition Plan Patient Discharge Condition Improved, stable Discharge Disposition To home Discharge Prescription List Prescriptions No active prescription medications Follow-up With When Contact Information JOLEEN HERRERA In 3 days [address] [place] [address] [phone] Business (1) Additional Instructions: Patient Education Contusion Attestation Patient was treated and evaluated by the Physician Piano Sounding Board Matcher. The attending physician was in the Emergency Department at all times and supervised care. The case was discussed with the attending physician and diagnostics were reviewed as needed. Problem List/Past Medical History Ongoing No qualifying data Historical No qualifying data Medications Inpatient No active inpatient medications Home No active home medications Allergies No Known Medication Allergies Social History Alcohol Substance Abuse Tobacco Former smoker, quit more than 30 days ago Tobacco Use:., 04/07/2023 Lab Results No qualifying data available. Diagnostic Results XR Foot 3+ Views Right 04/07/23 16:33:23 IMPRESSION: NO FRACTURE. MILD DEGENERATIVE CHANGES DISCUSSED. CLINICAL HISTORY: Fall COMPARISON: None available. FINDINGS: Blunt trauma yesterday. Mild narrowing right first metatarsophalangeal joint with mild flattening right first metatarsal head. No fracture, dislocation, bone lesion. Spurring posterior aspect calcaneus. Ordering Provider: Cee Jaquez Signed By: Andres Cote MD 04/07/23 16:20:31 Radiation Dose: Ka,r in mGy = na DAP = na Signed By: Andres Cote MD [facility] Comment on above: Result Comment: Elec tronically Signed By: Cee Jaquez PA-C N\.br\Date and Time Signed: 04/07/23 22:39 EST\.br\Electronically Co-Signed By: David Johnson M.D.\.marcos\Date and Time Co-Signed: 04/10/23 19:25 EST Consent for Treatmenton 03-22 Consent for Treatment [id number]#1 .00TIFF Normal [facility] Discharge Instructionson Discharge Instructions [id number]# 1.00TIFF Normal [facility] ED Clinical Summaryon 2022 ED Clinical Summary [place] [id number] ED Clinical Summary Person Information Name: TERRY VILLALPANDO [facility] Age: 62 Years : 1960 Sex: Male Language: Turkmen PCP: JOLEEN HERRERA CNP Marital Status: Phone: [phone] Visit Id: Visit Reason: Foot injury - Minor; Foot pain-swelling; RT FT INJURY - FELL Speciality: Acuity: 4 Enc Type: Emergency Med Service: Emergency Arrival: 04/07/2023 15:19:29 Discharge: 04/07/2023 17:05:55 LOS: 000 01:46 Checkin: 04/07/2023 15:19:29 Checkout: 04/07/2023 17:05:55 Dispo Type: Home (Routine DC) EVENTS: Event Name Event Status Request Date/Time Start Date/Time Complete Date/Time Arrive Complete 04/07/2023 15:19:29 04/07/2023 15:19:29 04/07/2023 15:19:29 Document Home Meds Request 04/07/2023 15:19:29 Triage Complete 04/07/2023 15:19:29 04/07/2023 15:40:53 04/07/2023 15:40:53 Registration Complete 04/07/2023 15:30:58 04/07/2023 15:30:58 04/07/2023 15:30:58 Reg Complete Request 04/07/2023 15:30:58 Reg Bed Request Complete 04/07/2023 15:30:58 04/07/2023 15:30:58 04/07/2023 15:30:58 Bed Assign Complete 04/07/2023 15:33:03 04/07/2023 15:33:03 04/07/2023 15:33:03 Dr Exam Complete 04/07/2023 15:33:03 04/07/2023 15:38:01 04/07/2023 15:38:01 RN Exam Complete 04/07/2023 15:33:03 04/07/2023 16:09:41 04/07/2023 16:09:41 Registration Request 04/07/2023 15:38:01 Dr Exam Complete 04/07/2023 15:39:45 04/07/2023 15:39:45 04/07/2023 15:39:45 X-Ray Complete 04/07/2023 15:57:40 04/07/2023 16:13:04 04/07/2023 16:20:32 Wet Read Request 04/07/2023 16:20:32 Discharge Complete 04/07/2023 16:57:28 04/07/2023 17:06:00 04/07/2023 17:06:00 Transfer Complete 04/07/2023 17:06:00 04/07/2023 17:06:00 04/07/2023 17:06:00 ADDRESS: [address] [place] [address] [address] [phone] PHYS DOC NOTES: MEDICAL INFORMATION: Prescriptions Given: PATIENT EDUCATION INFORMATION: Instructions: Contusion Follow up: With: Address: When: JOLEEN HERRERA [address], [place] [id number] [phone] Business (1) In 3 days DIAGNOSIS: 1:Foot contusion Normal [facility] ED Patient Education Noteon 04-07-2023 ED Patient Education Note Orthopedics Contusion A contusion is a deep bruise. Contusions are the result of a blunt injury to tissues and muscle fibers under the skin. The injury causes bleeding under the skin. The skin overlying the contusion may turn blue, purple, or yellow. Minor injuries will give you a painless contusion, but more severe injuries cause contusions that may stay painful and swollen for a few weeks. Follow these instructions at home: Pay attention to any changes in your symptoms. Let your health care provider know about them. Take these actions to relieve your pain. Managing pain, stiffness, and swelling ? Use resting, icing, applying pressure (compression), and raising (elevating) the injured area. This is often called the RICE strategy. ? Rest the injured area. Return to your normal activities as told by your health care provider. Ask your health care provider what activities are safe for you. ? If directed, put ice on the injured area: ? Put ice in a plastic bag. ? Place a towel between your skin and the bag. ? Leave the ice on for 20 minutes, 2?3 times per day. ? If directed, apply light compression to the injured area using an elastic bandage. Make sure the bandage is not wrapped too tightly. Remove and reapply the bandage as directed by your health care provider. ? If possible, raise (elevate) the injured area above the level of your heart while you are sitting or lying down. General instructions ? Take yovm-mnq-urpnihi and prescription medicines only as told by your health care provider. ? Keep all follow-up visits as told by your health care provider. This is important. Contact a health care provider if: ? Your symptoms do not improve after several days of treatment. ? Your symptoms get worse. ? You have difficulty moving the injured area. Get help right away if: ? You have severe pain. ? You have numbness in a hand or foot. ? Your hand or foot turns pale or cold. Summary ? A contusion is a deep bruise. ? Contusions are the result of a blunt injury to tissues and muscle fibers under the skin. ? It is treated with rest, ice, compression, and elevation. You may be given wsty-ejz-qvqvzmy medicines for pain. ? Contact a health care provider if your symptoms do not improve, or get worse. ? Get help right away if you have severe pain, have numbness, or the area turns pale or cold. This information is not intended to replace advice given to you by your health care provider. Make sure you discuss any questions you have with your health care provider. Document Revised: 02/20/2022 Document Reviewed: 02/01/2022 Elsevier Patient Education ? 2022 [employer] Normal [facility] ED Patient Summaryon 023 ED Patient Summary [address] [address] Patient Discharge Instructions Person Information Name: TERRY VILLALPANDO Age: 62 Years Arrival Date: 04/07/2023 15:19:29 Discharge Diagnosis: 1:Foot contusion Primary Care Physician: JOLEEN HERRERA CNP Provider Information Primary Provider: Alex Herbert, David Reagan Advanced Medicaid Biller:Cee Jaquez PA-C The exam and treatment you received in the Emergency Department were for an urgent problem and are not intended as complete care. It is important that you follow up with a doctor, nurse practitioner, or physician?s operating room assistant for ongoing care. If your symptoms become worse or you do not improve as expected and you are unable to reach your usual health care provider, you should return to the Emergency Department. We are available 24 hours a day. TERRY VILLALPANDO has been given the following list of patient education materials, prescriptions and follow-up instructions: Follow-up Instructions: With: Address: When: JOLEEN HERRERA [address], [place] [phone] Business (1) In 3 days In the event that this physician does not participate in your insurance network, please consult with your insurance company to find a nearby participating provider. Patient Education Materials: Contusion A MESSAGE TO ALL PATIENTS REGARDING OPIOIDS PRESCRIPTION OPIOIDS: WHAT YOU NEED TO KNOW Prescription opioids can be used to help relieve duxuaqda-ti-ijjbws pain and are often prescribed following a surgery or injury, or for certain health conditions. These medications can be an important part of the treatment but also come with serious risks. It is important to work with your healthcare provider to make sure you are getting the safest, most effective care. WHAT ARE THE RISKS AND SIDE EFFECTS OF OPIOID USE? Prescription opioids carry serious risks of addiction and overdose, especially with prolonged use. An opioid overdose, often marked by slowed breathing, can cause sudden . The use of prescription opioids can have a number of side effects as well, even when taken as directed: ? Tolerance?meaning you might need to take more of the medication for the same pain relief ? Physical dependence?meaning you have symptoms of withdrawal when a medication is stopped ? Increased sensitivity to pain ? Constipation ? Nausea, vomiting, and dry mouth ? Sleepiness and dizziness ? Confusion ? Depression ? Low levels of testosterone that can result in lower sex drive, energy, and strength ? Itching and sweating RISKS ARE GREATER WITH: ? History of drug misuse, substance use disorder, or overdose ? Mental health conditions (such as depression or anxiety) ? Sleep apnea ? Older age (65 years and older) ? Avoid alcohol while taking prescription opioids. Also, unless specifically advised by your health care provider, medications to avoid include: ? Benzodiazepines (such as Xanax or Valium) ? Muscle relaxants (such as Soma or Flexeril) ? Hypnotics (such as Ambien or Lunesta) ? Other prescription opioids KNOW YOUR OPTIONS Talk to your health care provider about ways to manage your pain that don?t involve prescription opioids. Some of these options may actually work better and have fewer risks and side effects. Options may include: ? Pain relievers such as acetaminophen, ibuprofen, and naproxen ? Some medication that are also used for depression or seizures ? Physical therapy and exercise ? Cognitive behavioral therapy, a psychological, goal-directed approach, in which patients learn how to modify physical, behavioral, and emotional triggers of pain and stress. IF YOU ARE PRESCRIBED OPIOIDS FOR PAIN: ? Never take opioids in greater amounts or more often than prescribed. ? Follow up with your primary health care provider. o Work together to create a plan on how to manage your pain. o Talk about ways to help manage your pain that don?t involve prescription opioids. o Talk about any and all concerns and side effects. ? Help prevent misuse and abuse o Never sell or share prescription opioids. o Never use another person?s prescription opioids. ? Store prescription opioids in a secure place and out of reach of others (this may include visitors, children, friends, and family). ? Safely dispose of unused prescription opioids: Find your community drug take-back program or your pharmacy mail-back program, or flush them down the toilet, following guidance from the Food and Drug Administration (www.fda.gov/Drugs/Re sourcesForYou). ? Visit www.cdc.gov/drugoverd ose to learn about the risks of opioids abuse and overdose. ? If you believe you may be struggling with addiction, tell your health field care advocate and ask for guidance or call [facility]?S National Helpline at 9-166-167-KMYB. u Source: [place] (more content not included)... Normal [facility] XR Foot 3+ Views Righton XR Foot 3+ Views Right Exam Date/Time: 04/07/2023 16:20 EST Reason for Exam: Fall Report IMPRESSION: NO FRACTURE. MILD DEGENERATIVE CHANGES DISCUSSED. CLINICAL HISTORY: Fall COMPARISON: None available. FINDINGS: Blunt trauma yesterday. Mild narrowing right first metatarsophalangeal joint with mild flattening right first metatarsal head. No fracture, dislocation, bone lesion. Spurring posterior aspect calcaneus. Ordering Provider: Cee Jaquez FINAL REPORT Dictated: 04/07/2023 4:30 pm Andres Cote MD Signed (Electronic Signature): 04/07/2023 4:30 pm Signed by: Andres Cote MD Transcribed by: ANALY Technologist: MASOOD Technical Comments Radiation Dose: Kar in mGy = na DAP = na Normal [facility] CNOVSPon 01-11-2023 CNOVSP Visit (SP) Office ([place]) TERRY VILLALPANDO ([id number]) 1960 M Date Time Provider Department 01/11/23 10:45 AM AILYN FRIEND During your visit today, we recorded the following information about you: Temperature Respiration Weight Height 97.3 degrees 18/minute 113.9 kg 1.816 m Ailyn Friend MD 01/11/2023 11:09 AM Signed PATIENT NAME: Terry Herbertlins CLINIC NO.: [id number] ATTENDING PHYSICIAN: Ailyn Friend MD DATE OF SERVICE: January 11, 2023 Some of the elements of this note have been copied from my previous progress note dated 09/12/2022. All the information has been reviewed carefully. Dear Joleen Herrera, CELL BIOLOGY SCIENTIST, here is an update on a follow up visit on male Terry Villalpando at the clinic January 11, 2023 Diagnosis: SMM and thrombocytopenia Treatment History: March 2021, admitted to [facility] for blood loss anemia presumed to be secondary to supratherapeutic INR while on warfarin. He was transfused RBCs and given intravenous iron. No EGD or colonoscopy performed. Referred to Dr. 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 Serum immunofixation was notable for IgA kappa and IgG kappa M proteins. Patient has a history of heart failure and a left ventricular assist device that was placed in 2013 and revised in 2017. He has a previous history of chronic alcohol and tobacco use. No known chronic liver or kidney conditions. No new medications. No focal bony pain. September 21, 2021 work-up -- CBC with normal hemoglobin and mild thrombocytopnenia, CMP with normal creatinine and calcium, SPEP with two gamma fractions measuring 0.59 and 0.15 g/dL, KL ratio 9.6, HIV and chronic hep negative, haptoglobin undetectable October 26, 2021 -- CBC with anemia and mild thrombocytopnenia, CMP with normal creatinine and calcium, Nestor negative, plasma free hemoglobin normal, SPEP with two gamma fractions measuring 0.64 and 0.13 g/dL, KL ratio 11 Established care with nm 01/10/2022 HPI: Terry Villalpando is a 62 year old year old male here for follow up. Doing well and denies any abdominal pain and or diarrhea. PAST MEDICAL HISTORY Diagnosis Date Abnormal CBC Bence Allan protein COPD (chronic obstructive pulmonary disease) (HCC) Diabetes mellitus (HCC) GERD (gastroesophageal reflux disease) GI bleed Hyperlipidemia Hypertension LVAD (left ventricular assist device) present (HCC) Myocardial infarct (HCC) Nonischemic cardiomyopathy (HCC) Shingles Shortness of breath Systolic heart failure (HCC) Thyroid disorder Social History Tobacco Use Smoking status: Former Packs/day: 2.00 Years: 35.00 Additional pack years: 0.00 Total pack years: 70.00 Types: Cigarettes Quit date: 2010 Years since quittin.7 Passive exposure: Past Smokeless tobacco: Never Vaping Use Vaping Use: Never used Substance Use Topics Alcohol use: Not Currently Drug use: Not Currently FAMILY HISTORY Problem Relation Age of Onset other (other) Mother Diabetes Mother Heart disease Mother Heart disease Father other (Congestive Heart Failure) Father Past medical, social and family history reviewed without any changes. REVIEW OF SYSTEMS GENERAL: No weight loss, malaise or fevers. No night sweats. HEENT: Negative for headaches, No changes in hearing or vision, no nose bleeds or other nasal problems. RESPIRATORY: Negative for cough, wheezing and shortness of breath CARDIOVASCULAR: Negative for chest pain, leg swelling and palpitations GI: Negative for abdominal discomfort, blood in stools or black stools and change in bowel habits : Negative for dysuria, frequency and incontinence MUSCULOSKELETAL: Negative for joint pain or swelling, back pain, and muscle pain. SKIN: Negative for lesions, rash, and itching. HEMATOLOGY/LYMPHOLOGY Negative for prolonged bleeding, bruising easily, and swollen nodes. NEURO: Negative for numbness or tingling of hands/feet. No weakness. PHYSICAL EXAMINATION: BP [unable to get bp[ Temp (Src) 97.3 (Temporal) Resp 18 Ht 5' 11.496 (1.82m) Wt 251 lb 3.2 oz (113.9kg) SpO2 97% BMI 34.55 kg/(m2). Wt 115.4 kg (254 lb 6.4 oz) BMI 34.99 kg/m2 Last 3 Encounter Wt Readings: Date: Wt: 01/10/2022 115.4 kg (254 lb 6.4 oz) 11/02/2021 117.4 kg (258 lb 12.8 oz) 10/05/2021 115.6 kg (254 lb 12.8 oz) General appearance:ECOG PERFORMANCE STATUS: 1- Restricted in physically strenuous activity. Carries out light duty. Patient in NAD. Skin: Skin color, texture, turgor normal. No rashes or lesions. Eyes: Anicteric sclera. Pupils are equally round and reactive to light. Extraocular movements are intact. Lymph Nodes: No cervical, supraclavicular, axillary or inguinal adenopathy. Oropharynx: Lips, mucosa, and tongue normal. Back: No pain to percussion. Negative SLR test Lungs clear to auscultation, No wheezing or rhonchi (more content not included)... Normal [facility] CBC W Auto Differential pane l (Bld)on 01-03-2023 Basophils (Bld) [#/Vol] 0.07 10*3/uL Normal <0.11 [facility] Comment on above: Order Comment: Speci men Type: BLOOD SPECIMEN Ordering Facility: [facility] Address: [address] [address] Performed By: #### 5 7021-8 #### [facility] CLIA [id number] [address] [place] [address] Basophils/100 WBC (Bld) 1.1 % Normal [facility] Comment on above: Order Comment: Speci men Type: BLOOD SPECIMEN Ordering Facility: [facility] Address: [address] [place] [address] Performed By: #### 5 7021-8 #### [facility] CLIA [id number] [address] [place] [id number] Differential cell count method Nom (Bld) Auto Normal [facility] Comment on above: Order Comment: Speci men Type: BLOOD SPECIMEN Ordering Facility: [facility] Address: [address] [address] Performed By: #### 5 7021-8 #### [facility] CLIA [id number] [address] [place] [address] Eosinophils (Bld) [#/Vol] 0.36 10*3/uL Normal <0.46 [facility] Comment on above: Order Comment: Speci men Type: BLOOD SPECIMEN Ordering Facility: [facility] Address: [address] [address] Performed By: #### 5 7021-8 #### [facility] CLIA [id number] [address] [place] [address] Eosinophils/100 WBC (Bld) 5.5 % Normal [facility] Comment on above: Order Comment: Speci men Type: BLOOD SPECIMEN Ordering Facility: [facility] Address: [address] [address] Performed By: #### 5 7021-8 #### [facility] CLIA [id number] [address] [place] [address] 65487 Erythrocyte distribution width (RBC) [Ratio] 16.0 % High 11.5-15.0 [facility] Comment on above: Order Comment: Speci men Type: BLOOD SPECIMEN Ordering Facility: [facility] Address: [address] [address] Performed By: #### 5 7021-8 #### [facility] CLIA [id number] [address] [place] [address] 15553 Hematocrit (Bld) [Volume fraction] 47.0 % Normal 39.0-51.0 [facility] Comment on above: Order Comment: Speci men Type: BLOOD SPECIMEN Ordering Facility: [facility] Address: [address] [place] [address] Performed By: #### 5 7021-8 #### [facility] CLIA [id number] [address] [place] [address] 20650 Hemoglobin (Bld) [Mass/Vol] 15.4 g/dL Normal 13.0-17.0 [facility] Comment on above: Order Comment: Speci men Type: BLOOD SPECIMEN Ordering Facility: [facility] Address: [address] [place] [address] Performed By: #### 5 7021-8 #### [facility] CLIA [id number] [address] [place] [address] 60275 Immature granulocytes (Bld) [#/Vol] 10*3/uL Normal <0.10 [facility] Comment on above: Order Comment: Speci men Type: BLOOD SPECIMEN Ordering Facility: [facility] Address: [address] [place] [address] Performed By: #### 5 7021-8 #### [facility] CLIA [id number] [address] [place] [address] 01549 Immature granulocytes/100 WBC (Bld) 0.3 % Normal [facility] Comment on above: Order Comment: Speci men Type: BLOOD SPECIMEN Ordering Facility: [facility] Address: [address] [address] Performed By: #### 5 7021-8 #### [facility] CLIA [id number] [address] [place] [address] 67000 Lymphocytes (Bld) [#/Vol] 1.01 10*3/uL Normal 1.00-4.00 [facility] Comment on above: Order Comment: Speci men Type: BLOOD SPECIMEN Ordering Facility: [facility] Address: [address] [address] Performed By: #### 5 7021-8 #### [facility] CLIA [id number] [address] [place] [address] 71608 Lymphocytes/100 WBC (Bld) 15.5 % Normal [facility] Comment on above: Order Comment: Speci men Type: BLOOD SPECIMEN Ordering Facility: [facility] Address: [address] [address] Performed By: #### 5 7021-8 #### [facility] CLIA [id number] [address] [place] [address] 19303 MCH (RBC) [Entitic mass] 30.7 pg Normal 26.0-34.0 [facility] Comment on above: Order Comment: Speci men Type: BLOOD SPECIMEN Ordering Facility: [facility] Address: [address] [address] Performed By: #### 5 7021-8 #### [facility] CLIA [id number] [address] [place] [address] 55786 MCHC (RBC) [Mass/Vol] 32.8 g/dL Normal 30.5-36.[address] [facility] Comment on above: Order Comment: Speci men Type: BLOOD SPECIMEN Ordering Facility: [facility] Address: [address] [place] [address] Performed By: #### 5 7021-8 #### [facility] CLIA [id number] [address] [place] [address] 70496 MCV (RBC) [Entitic vol] 93.6 fL Normal 80.0-100.0 [facility] Comment on above: Order Comment: Speci men Type: BLOOD SPECIMEN Ordering Facility: [facility] Address: [address] [address] Performed By: #### 5 7021-8 #### [facility] CLIA [id number] [address] [place] [address] 57422 Monocytes (Bld) [#/Vol] 0.80 10*3/uL Normal <0.87 [facility] Comment on above: Order Comment: Speci men Type: BLOOD SPECIMEN Ordering Facility: [facility] Address: [address] [address] Performed By: #### 5 7021-8 #### [facility] CLIA [id number] [address] [place] [address] 68688 Monocytes/100 WBC (Bld) 12.3 % Normal [facility] Comment on above: Order Comment: Speci men Type: BLOOD SPECIMEN Ordering Facility: [facility] Address: [address] [address] Performed By: #### 5 7021-8 #### [facility] CLIA [id number] [address] [place] [address] 82156 Neutrophils (Bld) [#/Vol] 4.26 10*3/uL Normal 1.45-7.50 [facility] Comment on above: Order Comment: Speci men Type: BLOOD SPECIMEN Ordering Facility: [facility] Address: [address] [address] Performed By: #### 5 7021-8 #### [facility] CLIA [id number] [address] [place] [address] 81171 Neutrophils/100 WBC (Bld) 65.3 % Normal [facility] Comment on above: Order Comment: Speci men Type: BLOOD SPECIMEN Ordering Facility: [facility] Address: [address] [address] Performed By: #### 5 7021-8 #### [facility] CLIA [id number] [address] [place] [address] Nucleated RBC (Bld) [#/Vol] 10*3/uL Normal <0.01 [facility] Comment on above: Order Comment: Speci men Type: BLOOD SPECIMEN Ordering Facility: [facility] Address: [address] [address] Performed By: #### 5 7021-8 #### [facility] CLIA [id number] [address] [place] [address] 99563 Nucleated RBC/100 WBC (Bld) [Ratio] 0.0 /100 WBC Normal [facility] Comment on above: Order Comment: Speci men Type: BLOOD SPECIMEN Ordering Facility: [facility] Address: [address] [place] [address] Performed By: #### 5 7021-8 #### [facility] CLIA [id number] [address] [place] [address] 93985 Platelet mean volume (Bld) [Entitic vol] 12.1 fL Normal 9.0-12.7 [facility] Comment on above: Order Comment: Speci men Type: BLOOD SPECIMEN Ordering Facility: [facility] Address: [address] [place] [address] Performed By: #### 5 7021-8 #### [facility] CLIA [id number] [address] [place] [address] 82676 Platelets (Bld) [#/Vol] 113 10*3/uL Low 150-400 [facility] Comment on above: Order Comment: Speci men Type: BLOOD SPECIMEN Ordering Facility: [facility] Address: [address] [address] Performed By: #### 5 7021-8 #### [facility] CLIA [id number] [address] [place] [address] 77326 RBC (Bld) [#/Vol] 5.02 10*6/uL Normal 4.20-6.00 [facility] Comment on above: Order Comment: Speci men Type: BLOOD SPECIMEN Ordering Facility: [facility] Address: [address] [address] Performed By: #### 5 7021-8 #### [facility] CLIA [id number] [address] [place] [address] 71905 WBC (Bld) [#/Vol] 6.52 10*3/uL Normal 3.70-11.00 [facility] Comment on above: Order Comment: Speci men Type: BLOOD SPECIMEN Ordering Facility: [facility] Address: [address] [address] Performed By: #### 5 7021-8 #### [facility] CLIA [id number] [address] [place] [address] 40170 Comprehensive metabolic 2000 panelon 01-03-2023 Albumin [Mass/Vol] 4.2 g/dL Normal 3.9-4.9 [facility] Comment on above: Order Comment: Speci men Type: BLOOD SPECIMEN Ordering Facility: [facility] Address: [address] [place] [address] Performed By: #### 5 0190-8, 2885-2, 2276-4 #### [facility] CLIA [id number] [address] [place] [address] [place] ALP [Catalytic activity/Vol] 80 U/L Normal 38-113 [facility] Comment on above: Order Comment: Speci men Type: BLOOD SPECIMEN Ordering Facility: [facility] Address: [address] Performed By: #### 5 0190-8, 2885-2, 2276-4 #### [facility] CLIA [id number] [address] [place] [address] [place] ALT [Catalytic activity/Vol] 14 U/L Normal 10-54 [facility] Comment on above: Order Comment: Speci men Type: BLOOD SPECIMEN Ordering Facility: [facility] Address: [address] [place] [address] Performed By: #### 5 0190-8, 2885-2, 6-4 #### [facility] CLIA [id number] [address] [place] [address] [place] Anion gap [Moles/Vol] 12 mmol/L Normal 9-[address] [facility] Comment on above: Order Comment: Speci men Type: BLOOD SPECIMEN Ordering Facility: [facility] Address: [address] Performed By: #### 5 0190-8, 2885-2, 2275-4 #### [facility] CLIA [id number] [address] [place] [address] [place] AST [Catalytic activity/Vol] 26 U/L Normal 14-40 [facility] Comment on above: Order Comment: Speci men Type: BLOOD SPECIMEN Ordering Facility: [facility] Address: [address] Performed By: #### 5 0190-8, 2885-2, 2275-4 #### [facility] CLIA [id number] [address] [place] [address] [place] Bilirubin [Mass/Vol] 1.4 mg/dL High 0.2-1.3 [facility] Comment on above: Order Comment: Speci men Type: BLOOD SPECIMEN Ordering Facility: [facility] Address: [address] Performed By: #### 5 0190-8, 2885-2, 2275-4 #### [facility] CLIA [id number] [address] [place] [address] [place] Calcium [Mass/Vol] 9.9 mg/dL Normal 8.5-10.2 [facility] Comment on above: Order Comment: Speci men Type: BLOOD SPECIMEN Ordering Facility: [facility] Address: [address] [place], [place] [address] Performed By: #### 5 0190-8, 2885-2, 6-4 #### [facility] CLIA [id number] [address] [place] [address] [place] Chloride [Moles/Vol] 99 mmol/L Normal 97-105 [facility] Comment on above: Order Comment: Speci men Type: BLOOD SPECIMEN Ordering Facility: [facility] Address: [address] [place], [place] [address] Performed By: #### 5 0190-8, 2885-2, 2275-4 #### [facility] CLIA [id number] [address] [place] [address] [place] CO2 [Moles/Vol] 23 mmol/L Normal 22-30 [facility] Comment on above: Order Comment: Speci men Type: BLOOD SPECIMEN Ordering Facility: [facility] Address: [address] [place] [address] Performed By: #### 5 0190-8, 2885-2, 4 #### [facility] CLIA [id number] [address] [place] [address] [place] Creatinine [Mass/Vol] 1.25 mg/dL High 0.73-1.[address] [facility] Comment on above: Order Comment: Speci men Type: BLOOD SPECIMEN Ordering Facility: [facility] Address: [address] [place], [place] [address] Performed By: #### 5 0190-8, 288-2, 4 #### [facility] CLIA [id number] [address] [place] [address] [place] Creatinine and Glomerular filtration rate.predicted panel (S/P/Bld) 66 mL/min/1.73m??? Normal >=60 [facility] Comment on above: Order Comment: Speci men Type: BLOOD SPECIMEN Ordering Facility: [facility] Address: [address] [place], [place] [address] Result Comment: Erica mated Glomerular Filtration Rate (eGFR) is calculated using the 2020 CKD-EPI creatinine equation. This equation utilizes serum creatinine, sex, and age as parameters. The creatinine assay has traceable calibration to isotope dilution-mass spectrometry. Refer to KDIGO guidelines for clinical interpretation. In patients with unstable renal function, e.g. those with acute kidney injury, the eGFR may not accurately reflect actual GFR. Performed By: #### 5 0190-8, 2885-2, 6-4 #### [facility] CLIA [id number] [address] [place] [address] [place] Glucose [Mass/Vol] 220 mg/dL High 74-99 [facility] Comment on above: Order Comment: Rayshawn damico Type: BLOOD SPECIMEN Ordering Facility: [facility] Address: [address] [place] [address] Result Comment: The [place] [employer] (ADA) provides guidance for cutoff values for fasting glucose and random glucose. The ADA defines fasting as no caloric intake for at least 8 hours. Fasting plasma glucose results between 100 to 125 mg/dL indicate increased risk for diabetes (prediabetes). Fasting plasma glucose results greater than or equal to 126 mg/dL meet the criteria for diagnosis of diabetes. In the absence of unequivocal hyperglycemia, results should be confirmed by repeat testing. In a patient with classic symptoms of hyperglycemia or hyperglycemic crisis, random plasma glucose results greater than or equal to 200 mg/dL meet the criteria for diagnosis of diabetes. Reference: Standards of Medical Care in Diabetes 2016, [place] [employer]. Diabetes Care. 2016.39(Suppl 1). Performed By: #### 5 0190-8, 2885-2, 2275- #### [facility] CLIA [id number] [facility] [place] [address] [place] Potassium [Moles/Vol] 4.0 mmol/L Normal 3.7-5.[address] [facility] Comment on above: Order Comment: Rayshawn damico Type: BLOOD SPECIMEN Ordering Facility: [facility] Address: [address] [place] [address] Performed By: #### 5 0190-8, 2885-2, 2275-4 #### [facility] CLIA [id number] [address] [place] [address] [place] Protein [Mass/Vol] 8.1 g/dL High 6.3-8.0 [facility] Comment on above: Order Comment: Speci men Type: BLOOD SPECIMEN Ordering Facility: [facility] Address: [address] [place] [address] Performed By: #### 5 0190-8, 2885-2, 6-4 #### [facility] CLIA [id number] [address] [place] [address] [place] Sodium [Moles/Vol] 134 mmol/L Low 136-144 [facility] Comment on above: Order Comment: Speci men Type: BLOOD SPECIMEN Ordering Facility: [facility] Address: [address] [place] [address] Performed By: #### 5 0190-8, 2885-2, 2275-4 #### [facility] CLIA [id number] [address] [place] [address] [place] Urea nitrogen [Mass/Vol] 32 mg/dL High 9-24 [facility] Comment on above: Order Comment: Speci men Type: BLOOD SPECIMEN Ordering Facility: [facility] Address: [address] [place] [address] Performed By: #### 5 0190-8, 2885-2, 2275-4 #### [facility] CLIA [id number] [address] [place] [address] [place] Ferritin SerPl-mCncon 2022 Ferritin [Mass/Vol] 75.6 ng/mL Normal 30.3-565.7 [facility] Comment on above: Order Comment: Speci men Type: BLOOD SPECIMEN Ordering Facility: [facility] Address: [address] [place] [address] Performed By: #### 5 0190-8, 2885-2, 6-4 #### [facility] CLIA [id number] [address] [place] [address] [place] IMMUNOGLOBULINS GAMon 2022 IgA [Mass/Vol] 1156 mg/dL High 70-400 [facility] Comment on above: Order Comment: Speci men Type: BLOOD SPECIMEN Ordering Facility: [facility] Address: [address] [place] [address] Performed By: #### S ERIMM #### [facility] CLIA [id number] [facility] [place] [address] [place] IgG [Mass/Vol] 1496 mg/dL Normal 700-1600 [facility] Comment on above: Order Comment: Speci men Type: BLOOD SPECIMEN Ordering Facility: [facility] Address: [address] [place] [address] Performed By: #### S ERIMM #### [facility] CLIA [id number] [address] [place] [address] [place] IgM [Mass/Vol] 86 mg/dL Normal 40-230 [facility] Comment on above: Order Comment: Speci men Type: BLOOD SPECIMEN Ordering Facility: [facility] Address: [address] [place] [address] Performed By: #### S ERIMM #### [facility] CLIA [id number] [address] [place] [address] [place] Iron and Iron binding capaci ty panelon 01-03-2023 Iron [Mass/Vol] 112 ug/dL Normal 41-186 [facility] Comment on above: Order Comment: Speci men Type: BLOOD SPECIMEN Ordering Facility: [facility] Address: [address] [place] [address] Performed By: #### 5 0190-8, 2885-2, 2276-4 #### [facility] CLIA [id number] [address] [place] [address] [place] Iron binding capacity [Mass/Vol] 359 ug/dL Normal 232-386 [facility] Comment on above: Order Comment: Speci men Type: BLOOD SPECIMEN Ordering Facility: [facility] Address: [address] [place] [address] Performed By: #### 5 0190-8, 2885-2, 2275-07 #### [facility] CLIA [id number] [address] [place] [address] [place] Iron/TIBC [Molar ratio] 31.2 % Normal 15.0-57.0 [facility] Comment on above: Order Comment: Speci men Type: BLOOD SPECIMEN Ordering Facility: [facility] Address: [address] [place] [address] Performed By: #### 5 0190-8, 2, 2275-07 #### [facility] CLIA [id number] [address] [place] [address] [place] KAPPA/HINOJOSA,FREE,SERon 2022 Immunoglobulin light chains.kappa.free (S) [Mass/Vol] 331.1 mg/L High 3.3-19.4 [facility] Comment on above: Order Comment: Speci men Type: BLOOD SPECIMEN Ordering Facility: [facility] Address: [address] [place] [address] Result Comment: Rare ly, increased serum free light chains levels may not be detected or accurately quantified due to prozone phenomenon or in high viscosity samples using this immunoturbidimetric assay. Correlation with other laboratory results and clinical findings is recommended. The [place] Free Light Chain was performed using the Binding Site Optilite immunoturbidimetric method. Result obtained with different assay methods or kits cannot be used interchangeably. Performed By: #### 5 0190-8, 2884-2, 2275-07 #### [facility] CLIA [id number] [address] [place] [address] [place] Immunoglobulin light chains.kappa/Immunogl obulin light chains.lambda (S) [Mass ratio] 15.05 High 0.26-1.65 [facility] Comment on above: Order Comment: Speci men Type: BLOOD SPECIMEN Ordering Facility: [facility] Address: [address] [address] Performed By: #### 5 0190-8, 2885-2, 2276-4 #### [facility] CLIA [id number] [address] [place] [address] [place] Immunoglobulin light chains.lambda.free [Mass/Vol] 22.0 mg/L Normal 5.7-26.3 [facility] Comment on above: Order Comment: Speci men Type: BLOOD SPECIMEN Ordering Facility: [facility] Address: [address] [address] Result Comment: Rare ly, increased serum free light chains levels may not be detected or accurately quantified due to prozone phenomenon or in high viscosity samples using this immunoturbidimetric assay. Correlation with other laboratory results and clinical findings is recommended. The [place] Free Light Chain was performed using the Binding Site Optilite immunoturbidimetric method. Result obtained with different assay methods or kits cannot be used interchangeably. Performed By: #### 5 0190-8, 2885-2, 2276-4 #### [facility] CLIA [id number] [address] [place] [address] [place] NM PET/CT WHOLE BODY INITon 01-03-2023 NM PET/CT WHOLE BODY INIT * * *Final Report* * * DATE OF EXAM: Jan 03 2023 3:16PM NRN [id number] - NM PET/CT WHOLE BODY INIT / PROCEDURE REASON: multiple diagnoses * * * * Physician Interpretation * * * * RESULT: FDG PET/CT SCAN: CLINICAL HISTORY: Monoclonal gammopathy INDICATION: Initial treatment strategy. TECHNIQUE: 14.2 mCi 18-FDG IV, followed about 1 hour later by PET imaging from top of the skull to feet. Non contrast CT was performed for attenuation correction and anatomic localization purposes. CT Dose-Length Product (DLP): 526 mGy*cm. CT Dose Reduction Employed: Yes BLOOD GLUCOSE: 211 mg/dL RESULT: HEAD AND NECK: Likely physiological activity in the oral cavity, tonsillar regions, salivary glands, visualized brain. No suspicious hypermetabolic foci. There is no hypermetabolic cervical lymphadenopathy. CHEST: Left-sided pacer device. LVAD. There is no hypermetabolic hilar or mediastinal lymphadenopathy. There is no hypermetabolic axillary lymphadenopathy. Atelectatic changes in the left lower lung. There are no hypermetabolic foci in the lungs. ABDOMEN AND PELVIS: The liver is slightly heterogeneous activity but no focal lesions are identified. There are no hypermetabolic foci in the liver, spleen, adrenals. There is no hypermetabolic abdominal or pelvic lymphadenopathy. Physiologic activity is noted in the liver, renal collecting system, bladder and bowel. Mild diffuse activity associated with stranding in the lower anterior abdominal wall is likely inflammatory. SKELETON: There are no hypermetabolic osseous lesions. Mild activity in the bilateral feet and ankle regions likely inflammatory. Ski Production Supervisor (topogram) images:No additional findings. -- IMPRESSION: 1. Neck: No suspicious hypermetabolic foci 2. Chest: No evidence of FDG avid neoplastic process 3. Abdomen and pelvis: No evidence of FDG avid neoplastic process 4. Skeleton: No hypermetabolic osseous lesions Transcribe Date/Time: Jan 03 2023 5:54P Dictated by: ION AWAD MD This examination was interpreted and the report reviewed and electronically signed by: ION AWAD MD on Jan 03 2023 6:08PM EST Thank you for allowing us to participate in the care of your patient. Should there be any questions regarding this interpretation, please call [phone]. If you are unable to reach us at the number above, please feel free to contact [facility] at [phone]. [id number] N Normal [facility] PROTEIN ELECTROPHORESIS SERU M (P)on 01-03-2023 Albumin [Mass/Vol] 4.30 g/dL Normal 3.43-5.41 [facility] Comment on above: Order Comment: Speci men Type: BLOOD SPECIMEN Ordering Facility: [facility] Address: [address] [place] [address] [place] [address] Performed By: #### 5 8540-8, 1056-2, 6-4 #### [facility] CLIA [id number] [address] [place] [address] [place] Alpha 1 globulin Elph [Mass/Vol] 0.28 g/dL Normal 0.18-0.43 [facility] Comment on above: Order Comment: Speci men Type: BLOOD SPECIMEN Ordering Facility: [facility] Address: [address] [place] [address] Performed By: #### 5 0190-8, 2885-2, 6-4 #### [facility] CLIA [id number] [address] [place] [address] [place] Alpha 2 globulin Elph [Mass/Vol] 0.60 g/dL Normal 0.42-0.98 [facility] Comment on above: Order Comment: Speci men Type: BLOOD SPECIMEN Ordering Facility: [facility] Address: [address] [place] [address] Performed By: #### 5 0190-8, 2885-2, 2275-4 #### [facility] CLIA [id number] [address] [place] [address] [place] Beta globulin Elph [Mass/Vol] 1.76 g/dL High 0.61-1.17 [facility] Comment on above: Order Comment: Speci men Type: BLOOD SPECIMEN Ordering Facility: [facility] Address: [address] [place], [place] [address] Performed By: #### 5 0190-8, 2885-2, 2275-4 #### [facility] CLIA [id number] [address] [place] [address] [place] Gamma globulin Elph [Mass/Vol] 1.16 g/dL Normal 0.53-1.51 [facility] Comment on above: Order Comment: Speci men Type: BLOOD SPECIMEN Ordering Facility: [facility] Address: [address] [place], [place] [address] Performed By: #### 5 0190-8, 2885-2, 6-4 #### [facility] [facility] CLIA [id number] [facility] STATES OF [facility] INTERPRETATION COMMENT FOR PROTEIN ELECTROPHORESIS See separate immunofixation report for characterization of monoclonal gammopathy. Normal [facility] Comment on above: Order Comment: Speci men Type: BLOOD SPECIMEN Ordering Facility: [facility] Address: [address] [place], [place] [address] Performed By: #### 5 0190-8, 2885-2, 6-4 #### [facility] CLIA [id number] [address] [place] [address] OF [place] M-PROTEIN LOCATION Beta Fraction 1 [facility] Comment on above: Order Comment: Speci men Type: BLOOD SPECIMEN Ordering Facility: [facility] Address: [address] [place] [address] Performed By: #### 5 0190-8, 2885-2, 2275-4 #### [facility] CLIA [id number] [address] [place] [address] STATES [facility] Protein Fractions [Interp] An M protein is identified on protein electrophoresis. Abnormal No definitive M protein is identified on protein electrophore sis. [facility] Comment on above: Order Comment: Speci men Type: BLOOD SPECIMEN Ordering Facility: [facility] Address: [address] [place], [place] [address] Performed By: #### 5 0190-8, 2885-2, 2275-4 #### [facility] CLIA [id number] [address] OF [place] Protein.monoclonal Elph [Mass/Vol] 0.73 g/dL High <=0.00 [facility] Comment on above: Order Comment: Speci men Type: BLOOD SPECIMEN Ordering Facility: [facility] Address: [address] [place], [place] [address] Performed By: #### 5 0190-8, 2885-2, 6-4 #### [facility] CLIA [id number] [address] SPE STAFF REVIEW Reviewed by Thalia Paniagua MD [facility] Comment on above: Order Comment: Speci men Type: BLOOD SPECIMEN Ordering Facility: [facility] Address: [address] [place] [address] Performed By: #### 5 0190-8, 2885-2, 2275-4 #### [facility] CLIA [id number] [address] [place] Prot SerPl-mCncon 01-03-2023 Protein [Mass/Vol] 7.9 g/dL Normal 6.3-8.0 [facility] Comment on above: Order Comment: Speci men Type: BLOOD SPECIMEN Ordering Facility: [facility] Address: [address] [place] [address] Performed By: #### 5 0190-8, 2885-2, 2275-4 #### [facility] CLIA [id number] [address] [place] [address] [place] Protein [Mass/Vol] 8.0 g/dL Normal 6.3-8.0 [facility] Comment on above: Order Comment: Speci men Type: BLOOD SPECIMEN Ordering Facility: [facility] Address: [address] [place] [address] Performed By: #### 5 0190-8, 2885-2, 2275-4 #### [facility] CLIA [id number] [address] CNPGreta 09-18-2022 VERONICA Telephone (HEMTSA) TERRY VILLALPANDO ([id number]) 1960 M Date Time Provider Department 09/18/22 LEONEL DEL VALLE During your visit today, we recorded the following information about you: Leonel Del Valle RN 09/18/2022 10:39 AM Signed Pt called requesting lab results. NEGRO/MM: please review and advise DIDI Khan MD 09/18/2022 10:43 AM Signed Labs slight upwars trend, repeat in 3 months and also get a PET scan in 3 months as well to assess bones Leonel Del Valle RN 09/18/2022 11:07 AM Signed Spoke with pt and he is aware of NEGRO message. He is agreeable to repeat labs/PET in 3 mos. PSS: Please call pt to schedule. DIDI Khan Sec 09/18/2022 11:11 AM Signed Scheduled patient I will mail appts to patient Allergies As of Date: 09/18/2022 (No Known Allergies) Date Reviewed: 09/12/2022 Reviewed by: Rosalva Gordon - Fully Assessed Reason for Visit: Results [95] Primary Visit Diagnosis:Monoclonal gammopathy [D47.2] Other Visit Diagnoses:Multiple myeloma not having achieved remission (HCC) [C90.00] Malignant neoplasm of prostate (HCC) [C61] Stage 3a chronic kidney disease (HCC) [N18.31] Order(s):CBC + DIFF [SQCBCDIF] Order #: [id number] FUTURE COMP METABOLIC PANEL [SQCMP] Order #: [id number] FUTURE MONOCLONAL PROTEIN, SERUM (BLOOD) [SQSERMPA] Order #: [id number] FUTURE PROTEIN ELECTROPHORESIS SERUM W/INTERP [SQSEPG] Order #: [id number] FUTURE NM PET/CT WHOLE BODY INITIAL [8472172] Order #: [id number] FUTURE Prescriptions as of 09/18/2022 - fluticasone (FLONASE) 50 mcg/actuation nasal spray Use 2 Sprays in each nostril once daily. - loratadine (CLARITIN) 10 mg tablet Take 10 mg by mouth once daily. - cholecalciferol (VITAMIN D3) 50 mcg (2,000 unit) tablet Take 1 tablet by mouth once daily. - torsemide (DEMADEX) 20 mg tablet TAKE TWO TABLETS BY MOUTH ONCE DAILY IN THE MORNING -ON MON, WED, AND FRI TAKE 1 EXTRA TABLET - levothyroxine 100 mcg cap Take 100 mcg by mouth daily before breakfast. - warfarin (COUMADIN) 3 mg tablet Take 3 mg by mouth as directed. - DIGOXIN ORAL Take 125 mcg by mouth every other day. - aspirin, enteric coated (ASPIRIN, ENTERIC COATED) 81 mg EC tablet Take 81 mg by mouth once daily. - dapagliflozin (FARXIGA) 10 mg tablet Take 10 mg by mouth daily with breakfast. - amiodarone (PACERONE) 200 mg tablet Take 200 mg by mouth once daily. - insulin detemir (LEVEMIR FLEXTOUCH U-100 INSULN SUBCUTANEOUS) Inject subcutaneously. - carvedilol (COREG) 6.25 mg tablet Take 6.25 mg by mouth twice daily with meals. - rosuvastatin (CRESTOR) 10 mg tablet Take 10 mg by mouth once daily. - spironolactone (ALDACTONE) 25 mg tablet Take 25 mg by mouth once daily. - gabapentin (NEURONTIN) 300 mg capsule Take 300 mg by mouth twice daily. - Mupirocin 2 % okit Apply to affected area. - insulin aspart (NOVOLOG FLEXPEN U-100 INSULIN SUBCUTANEOUS) Inject subcutaneously. Problem List As Of Date 09/18/2022 Noted Resolved Stage 3a chronic kidney disease (HCC) [N18.31] 09/12/2022 Encounter Status:Closed by LEONEL DEL VALLE on 09/18/22 Normal [facility] CBC W Auto Differential pane l (Bld)on 09-12-2022 Basophils (Bld) [#/Vol] 0.08 10*3/uL Normal <0.11 [facility] Comment on above: Order Comment: Speci men Type: BLOOD SPECIMEN Ordering Facility: [facility] Address: [address] [place] [address] Performed By: #### 5 0190-8, 2885-2, 2276-4 #### [facility] CLIA [id number] 9500 [facility][NOTE 3] [address] [address] [place] Basophils/100 WBC (Bld) 1.3 % Normal [facility] Comment on above: Order Comment: Speci men Type: BLOOD SPECIMEN Ordering Facility: [facility] Address: [address] [place], [place] [address] Performed By: #### 5 0190-8, 2884-2, 2275-07 #### [facility] CLIA [id number] [address] [place] [address] [place] Differential cell count method Nom (Bld) Auto Normal [facility] Comment on above: Order Comment: Speci men Type: BLOOD SPECIMEN Ordering Facility: [facility] Address: [address] Performed By: #### 5 0190-8, 2884-2, 2275-07 #### [facility] CLIA [id number] [address] [place] [address] [place] Eosinophils (Bld) [#/Vol] 0.41 10*3/uL Normal <0.46 [facility] Comment on above: Order Comment: Speci men Type: BLOOD SPECIMEN Ordering Facility: [facility] Address: [address] [place], [place] [address] Performed By: #### 5 0190-8, 2, 2275-07 #### [facility] CLIA [id number] [address] [place] [address] [place] Eosinophils/100 WBC (Bld) 6.7 % Normal [facility] Comment on above: Order Comment: Speci men Type: BLOOD SPECIMEN Ordering Facility: [facility] Address: [address] [place], [place] [address] Performed By: #### 5 0190-8, 2, 2275-07 #### [facility] CLIA [id number] [address] [place] [address] [place] Erythrocyte distribution width (RBC) [Ratio] 16.9 % High 11.5-15.0 [facility] Comment on above: Order Comment: Speci men Type: BLOOD SPECIMEN Ordering Facility: [facility] Address: [address] [place], [place] [address] Performed By: #### 5 0190-8, 2885-2, 2275-4 #### [facility] CLIA [id number] [address] [place] [address] [place] Hematocrit (Bld) [Volume fraction] 50.8 % Normal 39.0-51.0 [facility] Comment on above: Order Comment: Speci men Type: BLOOD SPECIMEN Ordering Facility: [facility] Address: [address] [place] [address] Performed By: #### 5 0190-8, 2885-2, 2275-4 #### [facility] CLIA [id number] [address] [place] [address] [place] Hemoglobin (Bld) [Mass/Vol] 16.0 g/dL Normal 13.0-17.0 [facility] Comment on above: Order Comment: Speci men Type: BLOOD SPECIMEN Ordering Facility: [facility] Address: [address] [place] [address] Performed By: #### 5 0190-8, 288-2, 4 #### [facility] CLIA [id number] [address] [place] [address] [place] Immature granulocytes (Bld) [#/Vol] 10*3/uL Normal <0.10 [facility] Comment on above: Order Comment: Speci men Type: BLOOD SPECIMEN Ordering Facility: [facility] Address: [address] [place], [place] [address] Performed By: #### 5 0190-8, 288-2, 2275-4 #### [facility] CLIA [id number] [address] [place] [address] [place] Immature granulocytes/100 WBC (Bld) 0.2 % Normal [facility] Comment on above: Order Comment: Speci men Type: BLOOD SPECIMEN Ordering Facility: [facility] Address: [address] Performed By: #### 5 0190-8, 288-2, 2275-4 #### [facility] CLIA [id number] [address] [place] [address] [place] Lymphocytes (Bld) [#/Vol] 0.93 10*3/uL Low 1.00-4.00 [facility] Comment on above: Order Comment: Speci men Type: BLOOD SPECIMEN Ordering Facility: [facility] Address: [address] [place], [place] [address] Performed By: #### 5 0190-8, 288-2, 2275-07 #### [facility] CLIA [id number] [address] [place] [address] [place] Lymphocytes/100 WBC (Bld) 15.3 % Normal [facility] Comment on above: Order Comment: Speci men Type: BLOOD SPECIMEN Ordering Facility: [facility] Address: [address] [place], [place] [id number] Performed By: #### 5 0190-8, 2884-2, 2275-07 #### [facility] CLIA [id number] [address] [place] [address] [place] MCH (RBC) [Entitic mass] 29.1 pg Normal 26.0-34.0 [facility] Comment on above: Order Comment: Speci men Type: BLOOD SPECIMEN Ordering Facility: [facility] Address: [address] [place], [place] [address] Performed By: #### 5 0190-8, 288-2, 2275-4 #### [facility] CLIA [id number] [address] [place] [address] [place] MCHC (RBC) [Mass/Vol] 31.5 g/dL Normal 30.5-36.[address] [facility] Comment on above: Order Comment: Speci men Type: BLOOD SPECIMEN Ordering Facility: [facility] Address: [address] Performed By: #### 5 0190-8, 288-2, 2275-4 #### [facility] CLIA [id number] [address] [place] [address] [place] MCV (RBC) [Entitic vol] 92.5 fL Normal 80.0-100.0 [facility] Comment on above: Order Comment: Speci men Type: BLOOD SPECIMEN Ordering Facility: [facility] Address: [address] [place], [place] [address] Performed By: #### 5 0190-8, 288-2, 2275-4 #### [facility] CLIA [id number] [address] [place] [address] [place] Monocytes (Bld) [#/Vol] 0.70 10*3/uL Normal <0.87 [facility] Comment on above: Order Comment: Speci men Type: BLOOD SPECIMEN Ordering Facility: [facility] Address: [address] [place], [place] [address] Performed By: #### 5 0190-8, 2884-2, 2275-07 #### [facility] CLIA [id number] [address] [place] [address] [place] Monocytes/100 WBC (Bld) 11.5 % Normal [facility] Comment on above: Order Comment: Speci men Type: BLOOD SPECIMEN Ordering Facility: [facility] Address: [address] [place], [place] [address] Performed By: #### 5 0190-8, 288-2, 4 #### [facility] CLIA [id number] [address] [place] [address] [place] Neutrophils (Bld) [#/Vol] 3.95 10*3/uL Normal 1.45-7.50 [facility] Comment on above: Order Comment: Speci men Type: BLOOD SPECIMEN Ordering Facility: [facility] Address: [address] [place] [address] Performed By: #### 5 0190-8, 2885-2, 6-4 #### [facility] CLIA [id number] [address] [place] [address] [place] Neutrophils/100 WBC (Bld) 65.0 % Normal [facility] Comment on above: Order Comment: Speci men Type: BLOOD SPECIMEN Ordering Facility: [facility] Address: [address] [place] [address] Performed By: #### 5 0190-8, 2885-2, 2275-4 #### [facility] CLIA [id number] [address] [place] [address] [place] Nucleated RBC (Bld) [#/Vol] 10*3/uL Normal <0.01 [facility] Comment on above: Order Comment: Speci men Type: BLOOD SPECIMEN Ordering Facility: [facility] Address: [address] [place] [address] Performed By: #### 5 0190-8, 2885-2, 2275-4 #### [facility] CLIA [id number] [address] [place] [address] [place] Nucleated RBC/100 WBC (Bld) [Ratio] 0.0 /100 WBC Normal [facility] Comment on above: Order Comment: Speci men Type: BLOOD SPECIMEN Ordering Facility: [facility] Address: [address] [place], [place] [id number] Performed By: #### 5 0190-8, 2885-2, 2275-4 #### [facility] CLIA [id number] [address] [place] [address] [place] Platelet mean volume (Bld) [Entitic vol] 12.3 fL Normal 9.0-12.7 [facility] Comment on above: Order Comment: Speci men Type: BLOOD SPECIMEN Ordering Facility: [facility] Address: [address] [place], [place] [address] Performed By: #### 5 0190-8, 2885-2, 2275-4 #### [facility] CLIA [id number] [address] [place] [address] [place] Platelets (Bld) [#/Vol] 128 10*3/uL Low 150-400 [facility] Comment on above: Order Comment: Speci men Type: BLOOD SPECIMEN Ordering Facility: [facility] Address: [address] [place], [place] [id number] Result Comment: Resu lts checked and verified.No clot detected. Performed By: #### 5 0190-8, 2885-2, 2275- #### [facility] CLIA [id number] [address] [place] [address] [place] RBC (Bld) [#/Vol] 5.49 10*6/uL Normal 4.20-6.00 [facility] Comment on above: Order Comment: Speci men Type: BLOOD SPECIMEN Ordering Facility: [facility] Address: [address] [place] [address] Performed By: #### 5 0190-8, 2885-2, 2275-07 #### [facility] CLIA [id number] [address] [place] [address] [place] WBC (Bld) [#/Vol] 6.08 10*3/uL Normal 3.70-11.00 [facility] Comment on above: Order Comment: Speci men Type: BLOOD SPECIMEN Ordering Facility: [facility] Address: [address] [place], [place] [id number] Performed By: #### 5 0190-8, 2885-2, 2275- #### [facility] CLIA [id number] [address] [place] [address] [place] CNOVSPon 09-12-2022 CNOVSP Visit (SP) Office (HEMASA) TERRY VILLALPANDO ([id number]) 1960 M Date Time Provider Department 09/12/22 11:30 AM AILYN FRIEND During your visit today, we recorded the following information about you: Temperature Pulse Respiration Blood pressure 97.8 degrees 79/minute 18/minute 66/31 Weight Height 111.7 kg 1.816 m Ailyn Friend MD 09/12/2022 12:04 PM Signed PATIENT NAME: Terry Villalpando CLINIC NO.: [id number] ATTENDING PHYSICIAN: Ailyn Friend MD DATE OF SERVICE: September 12, 2022 Some of the elements of this note have been copied from my previous progress note dated 01/10/2022. All the information has been reviewed carefully. Dear Joleen Herrera, CELL BIOLOGY SCIENTIST, here is an update on a follow up visit on male Terry Villalpando at the clinic September 12, 2022 Diagnosis: MGUS and thrombocytopenia Treatment History: March 2021, admitted to [facility] for blood loss anemia presumed to be secondary to supratherapeutic INR while on warfarin. He was transfused RBCs and given intravenous iron. No EGD or colonoscopy performed. Referred to me in September 2021 for evaluation of MGUS and new thrombocytopenia. Serum immunofixation was notable for IgA kappa and IgG kappa M proteins. Patient has a history of heart failure and a left ventricular assist device that was placed in 2014 and revised in 2017. He has a previous history of chronic alcohol and tobacco use. No known chronic liver or kidney conditions. No new medications. No focal bony pain. September 21, 2021 work-up -- CBC with normal hemoglobin and mild thrombocytopnenia, CMP with normal creatinine and calcium, SPEP with two gamma fractions measuring 0.59 and 0.15 g/dL, KL ratio 9.6, HIV and chronic hep negative, haptoglobin undetectable October 26, 2021 -- CBC with anemia and mild thrombocytopnenia, CMP with normal creatinine and calcium, Nestor negative, plasma free hemoglobin normal, SPEP with two gamma fractions measuring 0.64 and 0.13 g/dL, KL ratio 11 Established care with nm 01/10/2022 HPI: Terry Villalpando is a 62 year old year old male here for follow up. Does get tired and has had a few syncopal episodes in the past . PAST MEDICAL HISTORY Diagnosis Date Abnormal CBC Bence Allan protein COPD (chronic obstructive pulmonary disease) (HCC) Diabetes mellitus (HCC) GERD (gastroesophageal reflux disease) GI bleed Hyperlipidemia Hypertension LVAD (left ventricular assist device) present (HCC) Myocardial infarct (HCC) Nonischemic cardiomyopathy (HCC) Shingles Shortness of breath Systolic heart failure (HCC) Thyroid disorder Social History Tobacco Use Smoking status: Former Packs/day: 2.00 Years: 35.00 Pack years: 70.00 Types: Cigarettes Quit date: 2010 Years since quittin.4 Passive exposure: Past Smokeless tobacco: Never Substance Use Topics Alcohol use: Not Currently Drug use: Not Currently FAMILY HISTORY Problem Relation Age of Onset other (other) Mother Diabetes Mother Heart disease Mother Heart disease Father other (Congestive Heart Failure) Father Past medical, social and family history reviewed without any changes. REVIEW OF SYSTEMS GENERAL: No weight loss, malaise or fevers. No night sweats. HEENT: Negative for headaches, No changes in hearing or vision, no nose bleeds or other nasal problems. RESPIRATORY: Negative for cough, wheezing and shortness of breath CARDIOVASCULAR: Negative for chest pain, leg swelling and palpitations GI: Negative for abdominal discomfort, blood in stools or black stools and change in bowel habits : Negative for dysuria, frequency and incontinence MUSCULOSKELETAL: Negative for joint pain or swelling, back pain, and muscle pain. SKIN: Negative for lesions, rash, and itching. HEMATOLOGY/LYMPHOLOGY Negative for prolonged bleeding, bruising easily, and swollen nodes. NEURO: Negative for numbness or tingling of hands/feet. No weakness. PHYSICAL EXAMINATION: BP 66/31 Pulse 79 Temp (Src) 97.8 (Oral) Resp 18 Ht 5' 11.496 (1.82m) Wt 246 lb 3.2 oz (111.7kg) SpO2 96% BMI 33.86 kg/(m2). Wt 115.4 kg (254 lb 6.4 oz) BMI 34.99 kg/m2 Last 3 Encounter Wt Readings: Date: Wt: 01/10/2022 115.4 kg (254 lb 6.4 oz) 11/02/2021 117.4 kg (258 lb 12.8 oz) 10/05/2021 115.6 kg (254 lb 12.8 oz) General appearance:ECOG PERFORMANCE STATUS: 1- Restricted in physically strenuous activity. Carries out light duty. Patient in NAD. Skin: Skin color, texture, turgor normal. No rashes or lesions. Eyes: Anicteric sclera. Pupils are equally round and reactive to light. Extraocular movements are intact. Lymph Nodes: No cervical, supraclavicular, axillary or inguinal adenopathy. Oropharynx: Lips, mucosa, and tongue normal. Back: No pain to percussion. Negative SLR test Lungs clear to auscultation, No wheezing or rhonchi Heart: RRR without murmur, gallop, or rubs. Abdo (more content not included)... Normal [facility] Comprehensive metabolic 2000 panelon 09-12-2022 Albumin [Mass/Vol] 4.3 g/dL Normal 3.9-4.9 [facility] Comment on above: Order Comment: Speci men Type: BLOOD SPECIMEN Ordering Facility: [facility] Address: [address] Performed By: #### 5 0190-8, 2885-2, 6-4 #### [facility] CLIA [id number] [address] [place] [address] [place] [facility] ALP [Catalytic activity/Vol] 88 U/L Normal 38-113 [facility] Comment on above: Order Comment: Speci men Type: BLOOD SPECIMEN Ordering Facility: [facility] Address: [address] [place] [id number] Performed By: #### 5 0190-8, 2885-2, 6-4 #### [facility] CLIA [id number] [address] [place] [address] [place] [facility] ALT [Catalytic activity/Vol] 16 U/L Normal 10-54 [facility] Comment on above: Order Comment: Speci men Type: BLOOD SPECIMEN Ordering Facility: [facility] Address: [address] Performed By: #### 5 0190-8, 2885-2, 2275-4 #### [facility] CLIA [id number] [address] [place] [address] [place] Anion gap [Moles/Vol] 10 mmol/L Normal 9-[address] [facility] Comment on above: Order Comment: Speci men Type: BLOOD SPECIMEN Ordering Facility: [facility] Address: [address] [place], [place] [address] Performed By: #### 5 0190-8, 288-2, 2275-4 #### [facility] CLIA [id number] [address] [place] [address] [place] AST [Catalytic activity/Vol] 24 U/L Normal 14-40 [facility] Comment on above: Order Comment: Speci men Type: BLOOD SPECIMEN Ordering Facility: [facility] Address: [address] [place], [place] [address] Performed By: #### 5 0190-8, 288-2, 2275-4 #### [facility] CLIA [id number] [address] [place] [address] [place] Bilirubin [Mass/Vol] 1.0 mg/dL Normal 0.2-1.3 [facility] Comment on above: Order Comment: Speci men Type: BLOOD SPECIMEN Ordering Facility: [facility] Address: [address] [place], [place] [address] Performed By: #### 5 0190-8, 2885-2, 2275-4 #### [facility] CLIA [id number] [address] [place] [address] [place] Calcium [Mass/Vol] 10.0 mg/dL Normal 8.5-10.2 [facility] Comment on above: Order Comment: Speci men Type: BLOOD SPECIMEN Ordering Facility: [facility] Address: [address] [place] [address] Performed By: #### 5 0190-8, 2885-2, 2276-4 #### [facility] CLIA [id number] [address] [place] [address] [place] Chloride [Moles/Vol] 97 mmol/L Normal 97-105 [facility] Comment on above: Order Comment: Speci men Type: BLOOD SPECIMEN Ordering Facility: [facility] Address: [address] [place] [address] Performed By: #### 5 0190-8, 2885-2, 6-4 #### [facility] CLIA [id number] [address] [place] [address] [place] CO2 [Moles/Vol] 28 mmol/L Normal 22-30 [facility] Comment on above: Order Comment: Speci men Type: BLOOD SPECIMEN Ordering Facility: [facility] Address: [address] [place] [address] Performed By: #### 5 0190-8, 2885-2, 6-4 #### [facility] CLIA [id number] [address] [place] [address] [place] Creatinine [Mass/Vol] 1.34 mg/dL High 0.73-1.[address] [facility] Comment on above: Order Comment: Speci men Type: BLOOD SPECIMEN Ordering Facility: [facility] Address: [address] [place], [place] [address] Performed By: #### 5 0190-8, 2885-2, 6-4 #### [facility] CLIA [id number] [address] [place] [address] [place] ESTIMATED GLOMERULAR FILTRATION RATE 60 mL/min/1.73m??? Normal >=60 [facility] Comment on above: Order Comment: Speci men Type: BLOOD SPECIMEN Ordering Facility: [facility] Address: [address] [place], [place] [address] Result Comment: Erica mated Glomerular Filtration Rate (eGFR) is calculated using the 2020 CKD-EPI creatinine equation. This equation utilizes serum creatinine, sex, and age as parameters. The creatinine assay has traceable calibration to isotope dilution-mass spectrometry. Refer to KDIGO guidelines for clinical interpretation. In patients with unstable renal function, e.g. those with acute kidney injury, the eGFR may not accurately reflect actual GFR. Performed By: #### 5 0190-8, 2885-2, 2275-4 #### [facility] CLIA [id number] [address] [place] [address] [place] Glucose [Mass/Vol] 289 mg/dL High 74-99 [facility] Comment on above: Order Comment: Rayshawn damico Type: BLOOD SPECIMEN Ordering Facility: [facility] Address: [address] [place] [address] Result Comment: The [place] Diabetes Association (ADA) provides guidance for cutoff values for fasting glucose and random glucose. The ADA defines fasting as no caloric intake for at least 8 hours. Fasting plasma glucose results between 100 to 125 mg/dL indicate increased risk for diabetes (prediabetes). Fasting plasma glucose results greater than or equal to 126 mg/dL meet the criteria for diagnosis of diabetes. In the absence of unequivocal hyperglycemia, results should be confirmed by repeat testing. In a patient with classic symptoms of hyperglycemia or hyperglycemic crisis, random plasma glucose results greater than or equal to 200 mg/dL meet the criteria for diagnosis of diabetes. Reference: Standards of Medical Care in Diabetes 2016, [place] [employer] Association. Diabetes Care. 2016.39(Suppl 1). Performed By: #### 5 0190-8, 288-2, 2275-07 #### [facility] CLIA [id number] [address] [place] [address] [place] Potassium [Moles/Vol] 4.3 mmol/L Normal 3.7-5.[address] [facility] Comment on above: Order Comment: Rayshawn damico Type: BLOOD SPECIMEN Ordering Facility: [facility] Address: [address] [place] [address] Performed By: #### 5 0190-8, 2885-2, 2275-07 #### [facility] CLIA [id number] [address] [place] [address] [place] Protein [Mass/Vol] 8.8 g/dL High 6.3-8.0 [facility] Comment on above: Order Comment: Speci men Type: BLOOD SPECIMEN Ordering Facility: [facility] Address: [address] [place] [address] Performed By: #### 5 0190-8, 2885-2, 2275- #### [facility] CLIA [id number] [address] [place] [address] [place] Sodium [Moles/Vol] 135 mmol/L Low 136-144 [facility] Comment on above: Order Comment: Speci men Type: BLOOD SPECIMEN Ordering Facility: [facility] Address: [address] [place] [address] Performed By: #### 5 0190-8, 288-2, 2275-07 #### [facility] CLIA [id number] [address] [place] [address] [place] Urea nitrogen [Mass/Vol] 32 mg/dL High 9-24 [facility] Comment on above: Order Comment: Speci men Type: BLOOD SPECIMEN Ordering Facility: [facility] Address: [address] [place] [address] Performed By: #### 5 0190-8, 288-2, 2275-07 #### [facility] CLIA [id number] [address] [place] [address] [place] Ferritin SerPl-mCncon 2022 Ferritin [Mass/Vol] 63.3 ng/mL Normal 30.3-565.7 [facility] Comment on above: Order Comment: Speci men Type: BLOOD SPECIMEN Ordering Facility: [facility] Address: [address] [place] [address] Performed By: #### 5 0190-8, 288-2, 2275-07 #### [facility] CLIA [id number] [address] [place] IMMUNOFIXATION SCREEN, SERUM on 09-12-2022 INTERPRETATION (MPA) Atypical restricted bands are present in the IgA and kappa regions. Consistent with IgA kappa monoclonal gammopathy. Normal [facility] Comment on above: Order Comment: Speci men Type: BLOOD SPECIMEN Ordering Facility: [facility] Address: [address] [place] [address] Performed By: #### 5 0190-8, 2885-2, 2275- #### [facility] CLIA [id number] [address] [place] [address] STATES [facility] MPA RESULT M protein is present. Abnormal No M p rotein is identified. [facility] Comment on above: Order Comment: Speci men Type: BLOOD SPECIMEN Ordering Facility: [facility] Address: [address] [place] [address] Performed By: #### 5 0190-8, 2885-2, 2275-07 #### [facility] CLIA [id number] [address] [place] [address] [place] STAFF REVIEW ([facility]) Reviewed by Eleazar Tapia MD, Ph.D ([id number]) Normal [facility] Comment on above: Order Comment: Speci men Type: BLOOD SPECIMEN Ordering Facility: [facility] Address: [address] [place], [place] [address] Performed By: #### 5 0190-8, 2885-2, 2275-07 #### [facility] CLIA [id number] [address] [place] [address] [place] IMMUNOGLOBULINS GAMon 2022 IgA [Mass/Vol] 1200 mg/dL High 70-400 [facility] Comment on above: Order Comment: Speci men Type: BLOOD SPECIMEN Ordering Facility: [facility] Address: [address] [place] [address] Performed By: #### S ERIMM #### [facility] CLIA [id number] [address] [place] [address] [place] IgG [Mass/Vol] 1660 mg/dL High 700-1600 [facility] Comment on above: Order Comment: Speci men Type: BLOOD SPECIMEN Ordering Facility: [facility] Address: [address] [place] [address] Performed By: #### S ERIMM #### [facility] CLIA [id number] [address] [place] [address] [place] IgM [Mass/Vol] 99 mg/dL Normal 40-230 [facility] Comment on above: Order Comment: Speci men Type: BLOOD SPECIMEN Ordering Facility: [facility] Address: [address] [place] [address] Performed By: #### S ERIMM #### [facility] CLIA [id number] [facility] [place] [address] [place] Iron and Iron binding capaci ty panelon 09-12-2022 Iron [Mass/Vol] 72 ug/dL Normal 41-186 [facility] Comment on above: Order Comment: Speci men Type: BLOOD SPECIMEN Ordering Facility: [facility] Address: [address] [place], [place] [address] Performed By: #### 5 0190-8, 2885-2, 2275-4 #### [facility] CLIA [id number] [address] [place] [address] [place] Iron binding capacity [Mass/Vol] 390 ug/dL High 232-386 [facility] Comment on above: Order Comment: Speci men Type: BLOOD SPECIMEN Ordering Facility: [facility] Address: [address] [place], [place] [address] Performed By: #### 5 0190-8, 2885-2, 6-4 #### [facility] CLIA [id number] [facility] [place] [address] [place] Iron/TIBC [Molar ratio] 18.5 % Normal 15.0-57.0 [facility] Comment on above: Order Comment: Speci men Type: BLOOD SPECIMEN Ordering Facility: [facility] Address: [address] [place] [address] Performed By: #### 5 0190-8, 2885-2, 2275-07 #### [facility] CLIA [id number] [address] [place] [address] [place] KAPPA/HINOJOSA,FREE,SERon 2022 Immunoglobulin light chains.kappa.free (S) [Mass/Vol] 404.0 mg/L High 3.3-19.4 [facility] Comment on above: Order Comment: Speci men Type: BLOOD SPECIMEN Ordering Facility: [facility] Address: [address] [place] [address] Result Comment: Rare ly, increased serum free light chains levels may not be detected or accurately quantified due to prozone phenomenon or in high viscosity samples using this immunoturbidimetric assay. Correlation with other laboratory results and clinical findings is recommended. The [place] Free Light Chain was performed using the Binding Site Optilite immunoturbidimetric method. Result obtained with different assay methods or kits cannot be used interchangeably. Performed By: #### 5 0190-8, 2885-2, 2275-07 #### [facility] CLIA [id number] [address] [place] [address] [place] Immunoglobulin light chains.kappa/Immunogl obulin light chains.lambda (S) [Mass ratio] 15.48 High 0.26-1.65 [facility] Comment on above: Order Comment: Speci men Type: BLOOD SPECIMEN Ordering Facility: [facility] Address: [address] [place] [address] Performed By: #### 5 0190-8, 2885-2, 2275-07 #### [facility] CLIA [id number] [address] [place] [address] [place] Immunoglobulin light chains.lambda.free [Mass/Vol] 26.1 mg/L Normal 5.7-26.3 [facility] Comment on above: Order Comment: Speci men Type: BLOOD SPECIMEN Ordering Facility: [facility] Address: [place] [address] Result Comment: Rare ly, increased serum free light chains levels may not be detected or accurately quantified due to prozone phenomenon or in high viscosity samples using this immunoturbidimetric assay. Correlation with other laboratory results and clinical findings is recommended. The [place] Free Light Chain was performed using the Binding Site Optilite immunoturbidimetric method. Result obtained with different assay methods or kits cannot be used interchangeably. Performed By: #### 5 0190-8, 2885-2, 2275-07 #### [facility] CLIA [id number] [address] [place] [address] [place] PROTEIN ELECTROPHORESIS SERU M (P)on 09-12-2022 Albumin [Mass/Vol] 4.31 g/dL Normal 3.43-5.41 [facility] Comment on above: Order Comment: Speci men Type: BLOOD SPECIMEN Ordering Facility: [facility] Address: [address] [place] [address] Performed By: #### 5 0190-8, 2885-2, 2275-07 #### [facility] CLIA [id number] [address] [place] [address] [place] Alpha 1 globulin Elph [Mass/Vol] 0.29 g/dL Normal 0.18-0.43 [facility] Comment on above: Order Comment: Speci men Type: BLOOD SPECIMEN Ordering Facility: [facility] Address: [address] [place] [id number] Performed By: #### 5 0190-8, 288-2, 2275-07 #### [facility] CLIA [id number] [address] [place] [address] [place] Alpha 2 globulin Elph [Mass/Vol] 0.64 g/dL Normal 0.42-0.98 [facility] Comment on above: Order Comment: Speci men Type: BLOOD SPECIMEN Ordering Facility: [facility] Address: [address] [place], [place] [address] Performed By: #### 5 0190-8, 288-2, 2275-4 #### [facility] CLIA [id number] [address] [place] [address] [place] Beta globulin Elph [Mass/Vol] 1.84 g/dL High 0.61-1.17 [facility] Comment on above: Order Comment: Speci men Type: BLOOD SPECIMEN Ordering Facility: [facility] Address: [address] [place] [address] Performed By: #### 5 0190-8, 2884-2, 2275-07 #### [facility] CLIA [id number] [address] [place] [address] [place] Gamma globulin Elph [Mass/Vol] 1.42 g/dL Normal 0.53-1.51 [facility] Comment on above: Order Comment: Speci men Type: BLOOD SPECIMEN Ordering Facility: [facility] Address: [address] [place] [address] Performed By: #### 5 0190-8, 2884-2, 2275-07 #### [facility] CLIA [id number] [address] [place] [address] [place] INTERPRETATION COMMENT FOR PROTEIN ELECTROPHORESIS See separate immunofixation report for characterization of monoclonal gammopathy. Normal [facility] Comment on above: Order Comment: Speci men Type: BLOOD SPECIMEN Ordering Facility: [facility] Address: [address] [place] [address] Performed By: #### 5 0190-8, 2884-2, 2275-07 #### [facility] CLIA [id number] [address] [place] [address] [place] M-PROTEIN LOCATION Beta Fraction 1 [facility] Comment on above: Order Comment: Speci men Type: BLOOD SPECIMEN Ordering Facility: [facility] Address: [address] Performed By: #### 5 0190-8, 2885-2, 2275-4 #### [facility] CLIA [id number] [address] [place] Protein Fractions [Interp] An M protein is identified on protein electrophoresis. Abnormal No definitive M protein is identified on protein electrophore sis. [facility] Comment on above: Order Comment: Speci men Type: BLOOD SPECIMEN Ordering Facility: [facility] Address: [address] Performed By: #### 5 0190-8, 288-2, 2275-07 #### [facility] CLIA [id number] [facility] [place] [address] [place] Protein.monoclonal Elph [Mass/Vol] 0.93 g/dL High <=0.00 [facility] Comment on above: Order Comment: Speci men Type: BLOOD SPECIMEN Ordering Facility: [facility] Address: [address] [place] [address] Performed By: #### 5 0190-8, 288-2, 2275-07 #### [facility] CLIA [id number] [facility] [place] [address] [place] SPE STAFF REVIEW Reviewed by Eleazar Tapia MD, Ph.D ([id number]) Normal [facility] Comment on above: Order Comment: Speci men Type: BLOOD SPECIMEN Ordering Facility: [facility] Address: [address] Performed By: #### 5 0190-8, 288-2, 2275- #### [facility] CLIA [id number] [address] [place] [address] [place] Prot SerPl-mCncon 09-12-2022 Protein [Mass/Vol] 8.5 g/dL High 6.3-8.0 [facility] Comment on above: Order Comment: Speci men Type: BLOOD SPECIMEN Ordering Facility: [facility] Address: [address] [place], [place] [address] Performed By: #### 5 0190-8, 2885-2, 2276-4 #### [facility] CLIA [id number] [address] [facility][NOTE 3] [id number] CNPGreta 09-04-2022 CNPN Telephone (HEMASA) TERRY VILLALPANDO ([id number]) 1960 M Date Time Provider Department 09/04/22 AILYN FRIEND During your visit today, we recorded the following information about you: Rosalva Gordon 09/04/2022 11:07 AM Signed Patient no showed his last appointment with you. Please add lab orders for Saturday09/12/22. Thanks. 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 - torsemide (DEMADEX) 20 mg tablet TAKE TWO TABLETS BY MOUTH ONCE DAILY IN THE MORNING -ON MON, WED, AND FRI TAKE 1 EXTRA TABLET - levothyroxine 100 mcg cap Take 100 mcg by mouth daily before breakfast. - warfarin (COUMADIN) 3 mg tablet Take 3 mg by mouth as directed. - DIGOXIN ORAL Take 125 mcg by mouth every other day. - aspirin, enteric coated (ASPIRIN, ENTERIC COATED) 81 mg EC tablet Take 81 mg by mouth once daily. - dapagliflozin (FARXIGA) 10 mg tablet Take 10 mg by mouth daily with breakfast. - amiodarone (PACERONE) 200 mg tablet Take 200 mg by mouth once daily. - insulin detemir (LEVEMIR FLEXTOUCH U-100 INSULN SUBCUTANEOUS) Inject subcutaneously. - carvedilol (COREG) 6.25 mg tablet Take 6.25 mg by mouth twice daily with meals. - rosuvastatin (CRESTOR) 10 mg tablet Take 10 mg by mouth once daily. - spironolactone (ALDACTONE) 25 mg tablet Take 25 mg by mouth once daily. - gabapentin (NEURONTIN) 300 mg capsule Take 300 mg by mouth twice daily. - Mupirocin 2 % okit Apply to affected area. - insulin aspart (NOVOLOG FLEXPEN U-100 INSULIN SUBCUTANEOUS) Inject subcutaneously. Problem List As Of Date: 09/04/2022 (None) Encounter Status:Closed by ROSALVA GORDON on 09/04/22 Normal [facility] FREE T4on 08-30-2022 Free T4 [Mass/Vol] 1.70 ng/dL Critically high 0.76-1.46 [facility] Comment on above: Performed By: #### F T4, PSAD #### [facility] [address] [place] [address] [address] Sonya Mendoza LIPID PROFILEon 08-30-2022 CHOL-HDL RATIO NORM SEE BELOW Normal [facility] Comment on above: Result Comment: 3.3 - 4.4 LOW RISK 4.4 - 7.1 AVERAGE RISK 7.1 - 11.0 MODERATE RISK >11.0 HIGH RISK Performed By: #### I NFLUAB #### [facility] [address] [place] [address] [address] Sonya Mendoza Cholesterol [Mass/Vol] 113 mg/dL Normal <=200 [facility] Comment on above: Performed By: #### I NFLUAB #### [facility] [address] [place] [address] [address] Sonya Mendoza Cholesterol in HDL [Mass/Vol] 33 mg/dL Critically low 40-60 [facility] Comment on above: Performed By: #### I NFLUAB #### [facility] [address] [place] [address] [address] Sonya Mendoza Cholesterol in LDL [Mass/Vol] 63.2 mg/dL Normal [facility] Comment on above: Performed By: #### I NFLUAB #### [facility] [address] [place] [address] [address] Sonya Mendoza Cholesterol.total/Cho lesterol in HDL [Mass ratio] 3.4 {ratio} Normal [facility] Comment on above: Performed By: #### I NFLUAB #### [facility] [address] [place] [address] [address] Sonya Mendoza HDL NORMAL > or = 60 mg/dl - LO W CARDIOVASCULAR RISK <40 mg/dl - HIGH CARDIOVASCULAR RISK Normal [facility] Comment on above: Performed By: #### I NFLUAB #### [facility] [address] [place] [address] [address] Sonya Mendoza LDL CALC NORMAL SEE BELOW Normal [facility] Comment on above: Result Comment: <100 mg/dl OPTIMAL 100 - 129 mg/dl NEAR OR ABOVE OPTIMAL 130 - 159 mg/dl BORDERLINE HIGH 160 - 189 mg/dl HIGH >190 mg/dl VERY HIGH Performed By: #### I NFLUAB #### [facility] [address] [place] [address] [address] Sonya Mendoza Triglyceride [Mass/Vol] 84 mg/dL Normal <=150 [facility] Comment on above: Performed By: #### I NFLUAB #### [facility] [address] [place] [address] [address] Sonya Mendoza VLDL CALC 16.8 mg/dL Normal [facility] Comment on above: Performed By: #### I NFLUAB #### [facility] [address] [place] [address] [address] Sonya Mendoza MICROALBUMIN, RAND URon 08-20 mALB <1.3 Normal <=30.0 [facility] Comment on above: Performed By: #### F T4, PSAD #### [facility] [address] [place] [address] Dr. Sonya Mendoza PROF 14(COMP METB)on 023 Albumin [Mass/Vol] 3.8 g/dL Normal 3.4-5.0 [facility] Comment on above: Performed By: #### I NFLUAB #### [facility] [address] [place] [address] Dr. Sonya Mendoza Albumin/Globulin [Mass ratio] 0.7 {ratio} Normal [facility] Comment on above: Performed By: #### I NFLUAB #### [facility] [address] [place] [address] Dr. Sonya Mendoza ALP [Catalytic activity/Vol] 92 U/L Normal 46-116 [facility] Comment on above: Performed By: #### I NFLUAB #### [facility] [address] [place] [address] Dr. Sonya Mendoza ALT [Catalytic activity/Vol] 21 U/L Normal 16-63 [facility] Comment on above: Performed By: #### I NFLUAB #### [facility] [address] [place] [address] Dr. Sonya Mendoza Anion gap [Moles/Vol] 11.7 mmol/L Normal [facility] Comment on above: Performed By: #### I NFLUAB #### [facility] [address] [place] [address] Dr. Sonya Mendoza AST [Catalytic activity/Vol] 18 U/L Normal 15-37 [facility] Comment on above: Performed By: #### I NFLUAB #### [facility] [address] [place] [address] Dr. Sonya Mendoza Bilirubin [Mass/Vol] 0.9 mg/dL Normal 0.2-1.0 [facility] Comment on above: Performed By: #### I NFLUAB #### [facility] [address] [place] [address] [address] Sonya Mendoza Calcium [Mass/Vol] 9.2 mg/dL Normal 8.5-10.1 [facility] Comment on above: Performed By: #### I NFLUAB #### [facility] [address] [place] [address] [address] Sonya Mendoza Chloride [Moles/Vol] 102 mmol/L Normal 98-107 [facility] Comment on above: Performed By: #### I NFLUAB #### [facility] [address] [place] [address] [address] Sonya Mendoza CO2 [Moles/Vol] 30.5 mmol/L Normal 21.0-32.0 [facility] Comment on above: Performed By: #### I NFLUAB #### [facility] [address] [place] [address] [address] Sonya Mendoza Creatinine [Mass/Vol] 1.48 mg/dL Critically high 0.70-1.30 [facility] Comment on above: Performed By: #### I NFLUAB #### [facility] [address] [place] [address] [address] Sonya Mendoza EGFR-AF SENE[place]ESE 59 mL/min/1.73m2 Critically low >=60 [facility] Comment on above: Performed By: #### I NFLUAB #### [facility] [address] [place] [address] [address] Sonya Mendoza EGFR-NON AF [place]ESE 48 mL/min/1.73m2 Critically low >=60 [facility] Comment on above: Performed By: #### I NFLUAB #### [facility] [address] [place] [address] [address] Sonya Mendoza Globulin (S) [Mass/Vol] 5.5 g/dL Normal [facility] Comment on above: Performed By: #### I NFLUAB #### [facility] [address] [place] [address] [address] Sonya Mendoza Glucose [Mass/Vol] 189 mg/dL Critically high 74-106 [facility] Comment on above: Performed By: #### I NFLUAB #### [facility] [address] [place] [address] [address] Sonya Mendoza Potassium [Moles/Vol] 4.2 mmol/L Normal 3.5-5.1 [facility] Comment on above: Performed By: #### I NFLUAB #### [facility] [address] [place] [address] [address] Sonya Mendoza Protein [Mass/Vol] 9.3 g/dL Critically high 6.4-8.2 [facility] Comment on above: Performed By: #### I NFLUAB #### [facility] [address] [place] [address] [address] Sonya Mendoza Sodium [Moles/Vol] 140 mmol/L Normal 136-145 [facility] Comment on above: Performed By: #### I NFLUAB #### [facility] [address] [place] [address] [address] Sonya Mendoza Urea nitrogen [Mass/Vol] 31.0 mg/dL Critically high 7.0-18.0 [facility] Comment on above: Performed By: #### I NFLUAB #### [facility] [address] [place] [address] Dr. Sonya Mendoza Urea nitrogen/Creatinine [Mass ratio] 20.9 mg/mg Normal [facility] Comment on above: Performed By: #### I NFLUAB #### [facility] [address] [place] [address] Dr. Sonya Mendoza TSHon 08-30-2022 TSH 0.586 uIU/mL Normal 0.358-3.740 [facility] Comment on above: Performed By: #### I NFLUAB #### [facility] [address] [place] [address] Dr. Sonya Mendzoa UA RANDOM W/MICROSCOPICon BACTERIA TRACE Abnormal NONE SEEN [facility] Comment on above: Performed By: #### U AMIC #### [facility] [address] [place] [address] Dr. Sonya Mendoza Bilirubin Ql (U) Negative Normal NEGATIVE [facility] Comment on above: Performed By: #### U AMIC #### [facility] [address] [address] [address] Sonya Mendoza CAST NONE SEEN Normal NONE SEEN [facility] Comment on above: Performed By: #### U AMIC #### [facility] [address] [address] [address] Sonya Mendoza Clarity (U) CLEAR Normal CLEAR [facility] Comment on above: Performed By: #### U AMIC #### [facility] [address] [address] [address] Sonya Mendoza Color (U) LT. YELLOW Normal YELLOW [facility] Comment on above: Performed By: #### U AMIC #### [facility] [address] [place] [address] Dr. Sonya Mendoza Crystals LM Nom (Urine sed) NONE SEEN Normal NONE SEEN [facility] Comment on above: Performed By: #### U AMIC #### [facility] [address] [address] [address] Sonya Mendoza Epithelial cells LM Ql (Urine sed) NONE SEEN Normal NONE SEEN /RARE [facility] Comment on above: Performed By: #### U AMIC #### [facility] [address] [address] [address] Sonya Mendoza Glucose Ql (U) >1000 Abnormal NEGATIVE The [facility] Comment on above: Performed By: #### U AMIC #### [facility] [address] [address] [address] Sonya Mendoza Hemoglobin Ql (U) TRACE-INTACT Abnormal NEGATIVE [facility] Comment on above: Performed By: #### U AMIC #### [facility] [address] [address] [address] Sonya Mendoza Ketones Ql (U) Negative Normal NEGATIVE [facility] Comment on above: Performed By: #### U AMIC #### [facility] [address] [place] [address] Dr. Sonya Mendoza LEUKOCYTES Negative Normal NEGATIVE [facility] Comment on above: Performed By: #### U AMIC #### [facility] [address] [address] [address] Sonya Mendoza MUCOUS NONE SEEN Normal NONE SEEN [facility] Comment on above: Performed By: #### U AMIC #### [facility] [address] [address] [address] Sonya Mendoza Nitrite Ql (U) Negative Normal NEGATIVE [facility] Comment on above: Performed By: #### U AMIC #### [facility] [address] [address] [address] Sonya Mendoza pH (U) 5.5 [pH] Normal 5-9 [facility] Comment on above: Performed By: #### U AMIC #### [facility] [address] [place] [address] Dr. Sonya Mendoza RBC 2-5 Abnormal 0-2 [facility] Comment on above: Performed By: #### U AMIC #### [facility] [address] [place] [address] Dr. Sonya Mendoza SPEC GRAVITY <=1.005 Abnormal 1.005-<=1.02 5 [facility] Comment on above: Performed By: #### U AMIC #### [facility] [address] [place] [address] Dr. Sonya Mendoza UA PROTEIN Negative Normal NEGATIVE/ TRACE [facility] Comment on above: Performed By: #### U AMIC #### [facility] [address] [place] [address] Dr. Sonya Mendoza Urobilinogen Qn (U) 0.2 {Melba'U}/dL Normal 0.2 - 1. 0 [facility] Comment on above: Performed By: #### U AMIC #### [facility] [address] [place] [address] Dr. Sonya Mendoza WBC NONE SEEN Normal NONE SEEN [facility] Comment on above: Performed By: #### U AMIC #### [facility] [address] [place] [address] Dr. Sonya Mendoza ECHOCARDIO M/2D COMPLETEon 0 08-22-2022 ECHOCARDIO M/2D COMPLETE Patient: TERRY VILLALPANDO Exam Date: 08/22/2022 : 1960 Gender:M Ordering : [facility] Admission #: [id number] Family : Order #: [id number] CLICK HERE TO VIEW EXAM ECHOCARDIOGRAM REPORT PROCEDURE: CARDIO PULMONARY ECHOCARDIO M/2D COMP INDICATIONS: LVAD, pacemaker/defibrillat or, hypertension, COPD COMPARISON: None. DESCRIPTION: COMPLETE ECHOCARDIOGRAM Real-time transthoracic echocardiography with 2D, M-mode, spectral and color flow Doppler performed. QUALITY: Technical quality was good. LEFT VENTRICLE: Severe dilatation. Abnormal septal motion due to RV pressure or volume overload. Structure seen in apex likely LVAD pump. No data on inflow or outflow cannulas provided. No RPM of LVAD at time of exam provided. LV EF: Global left ventricular systolic function is severely reduced; ejection fraction estimated to be 10 to 15%. Diffuse global hypokinesis. DIASTOLIC: Unable to assess diastolic function. ATRIAL SEPTUM: Visually appears intact. LEFT ATRIUM: Moderate dilatation. RIGHT ATRIUM: Moderate dilatation. RIGHT VENTRICLE: Moderate dilatation. Decreased right ventricular systolic function. Pacer wire present. TRICUSPID VALVE: Grossly normal. Trivial regurgitation. Doppler studies reveal mildly (35-45) elevated right sided pressures. RVSP 40 mmHg MITRAL VALVE: Normal mobility and thickness. No evidence of mitral valve stenosis. There is no mitral annular calcification. Mild to moderate mitral regurgitation. AORTIC VALVE: Aortic valve does not open. Mild to moderate aortic regurgitation. AORTIC ROOT: Normal diameter and appearance. PULMONIC VALVE: Normal thickness and mobility. No stenosis. Mild regurgitation. PERICARDIUM: No evidence of pericardial effusion. IVC: IVC is dilated (2.4 cm) with no collapse. CONCLUSION: Global left ventricular systolic function is severely reduced; ejection fraction is 10 to 15%. Global hypokinesis. LVAD pump seen in the apex of left ventricle. The left ventricle is severely dilated. Biatrial dilatation. The right ventricle is moderately to severely dilated with significantly reduced systolic function. Mildly elevated right ventricular systolic pressures. Mild to moderate mitral regurgitation. Mild to moderate aortic regurgitation. Mild pulmonic regurgitation. Adult Echocardiography Procedure Report Left Ventricle LVEDD (3.7 - 5.6 cm): 7.29 cm LVESD (2.2 - 4.0 cm): 6.74 cm LVIVS thickness (0.6 - 1.2 cm): 1.08 cm LVPW thickness (0.5 - 1.0 cm): 0.75 cm e': 0.07 m/s LVOT Max Gradient: 0.33 mm[Hg] Peak Velocity (LVOT): 0.29 m/s LVOT Diameter 2.29 cm Left Ventricular Ejection Fraction: 16.25 %, 16.25 % Left Atrium LA Volume Index (2D A2C): 107.20 ml, 107.20 ml Left Atrium Systolic Dimension: 5.52 cm Mitral Valve Mitral Valve E-Wave Peak Velocity: 0.66 m/s Right Ventricle Aorta AO Root Diam: 3.82 cm Ascending Ao Diam: 3.33 cm Aortic Valve Tricuspid Valve Peak Velocity (Regurgitant Flow): 2.13 m/s, 2.41 m/s, 2.49 m/s Pulmonic Valve Mean Gradient: 1.65 mm[Hg] Mean Velocity: 0.62 m/s Peak Velocity: 0.85 m/s, 0.97 m/s Peak Gradient: 3.79 mm[Hg], 2.86 mm[Hg] Right Atrium Right Atrium Systolic Pressure: 96.57 ml, 96.57 ml Dictated by: Mk Gibson M.D. on 08/23/2022 at 16:36 Approved by: Mk Gibson M.D. on 08/23/2022 at 16:45 Normal [facility] BNPon 08-21-2022 Natriuretic peptide B (Bld) [Mass/Vol] 916.0 pg/mL Critically high <=900.0 [facility] Comment on above: Performed By: #### F T4, PSAD #### [facility] [address] [place] [address] Dr. Sonya Mendoza CBC AUTO DIFFon 08-21-2022 BASO # 0.1 103/ul Normal 0.0-0.1 [facility] Comment on above: Performed By: #### I NFLUAB #### [facility] [address] [place] [address] Dr. Sonya Mendoza Basophils/100 WBC (Bld) 1.0 % Normal 0.2-2.0 [facility] Comment on above: Performed By: #### I NFLUAB #### [facility] [address] [place] [address] Dr. Sonya Mendoza EO # 0.4 103/ul Normal 0.0-0.7 [facility] Comment on above: Performed By: #### I NFLUAB #### [facility] [address] [place] [address] Dr. Sonya Mendoza Eosinophils/100 WBC (Bld) 5.2 % Normal 0.9-7.0 [facility] Comment on above: Performed By: #### I NFLUAB #### [facility] [address] [place] [address] Dr. Sonya Mendoza Erythrocyte distribution width (RBC) [Ratio] 16.3 % Critically high 11.0-15.0 [facility] Comment on above: Performed By: #### I NFLUAB #### [facility] [address] [place] [address] Dr. Sonya Mendoza Hematocrit (Bld) [Volume fraction] 48.2 % Normal 42.0-54.0 [facility] Comment on above: Performed By: #### I NFLUAB #### [facility] [address] [place] [address] Dr. Sonya Mendoza Hemoglobin (Bld) [Mass/Vol] 15.1 g/dL Normal 14.0-18.0 [facility] Comment on above: Performed By: #### I NFLUAB #### [facility] [address] [place] [address] Dr. Sonya Mendoza IG # 0.02 10e3/ul Normal 0.00-0.03 [facility] Comment on above: Performed By: #### I NFLUAB #### [facility] [address] [place] [address] Dr. Sonya Mendoza IG % 0.3 % Normal 0.0-0.5 [facility] Comment on above: Performed By: #### I NFLUAB #### [facility] [address] [place] [address] Dr. Sonya Mendoza LYMPH # 0.8 103/ul Critically low 1.2-3.8 [facility] Comment on above: Performed By: #### I NFLUAB #### [facility] [address] [place] [address] Dr. Sonya Mendoza Lymphocytes/100 WBC (Bld) 11.4 % Critically low 20.5-60.0 [facility] Comment on above: Performed By: #### I NFLUAB #### [facility] [address] [place] [address] Dr. Sonya Mendoza MANUAL DIFF REQ NO Normal [facility] Comment on above: Performed By: #### I NFLUAB #### [facility] [address] [place] [address] Dr. Sonya Mendoza MCH (RBC) [Entitic mass] 28.9 pg Normal 25.9-34.0 [facility] Comment on above: Performed By: #### I NFLUAB #### [facility] [address] [place] [address] Dr. Sonya Mendoza MCHC (RBC) [Mass/Vol] 31.3 g/dL Normal 29.9-35.2 [facility] Comment on above: Performed By: #### I NFLUAB #### [facility] [address] [place] [address] Dr. Sonya Mendoza MCV (RBC) [Entitic vol] 92.2 fL Normal 80.0-94.0 [facility] Comment on above: Performed By: #### I NFLUAB #### [facility] [address] [place] [address] Dr. Sonya Mendoza MONO # 0.7 103/ul Normal 0.3-0.8 [facility] Comment on above: Performed By: #### I NFLUAB #### [facility] [address] [place] [address] Dr. Sonya Mendoza Monocytes/100 WBC (Bld) 10.1 % Normal 1.7-12.0 [facility] Comment on above: Performed By: #### I NFLUAB #### [facility] [address] [place] [address] Dr. Sonya Mendoza NEUT # 4.8 103/ul Normal 1.4-6.5 [facility] Comment on above: Performed By: #### I NFLUAB #### [facility] [address] [address] [address] Sonya Mendoza Neutrophils/100 WBC (Bld) 72.0 % Normal 43.0-75.0 [facility] Comment on above: Performed By: #### I NFLUAB #### [facility] [address] [address] [address] Sonya Mendoza Platelet mean volume (Bld) [Entitic vol] 11.5 fL Normal 9.5-13.5 [facility] Comment on above: Performed By: #### I NFLUAB #### [facility] [address] [address] [address] Sonya Mendoza PLT 144 103/ul Critically low 150-450 [facility] Comment on above: Performed By: #### I NFLUAB #### [facility] [address] [place] [address] Dr. Sonya Mendoza RBC 5.23 106/ul Normal 4.70-6.10 [facility] Comment on above: Performed By: #### I NFLUAB #### [facility] [address] [place] [address] Dr. Sonya Mendoza WBC 6.7 103/ul Normal 4.0-11.0 [facility] Comment on above: Performed By: #### I NFLUAB #### [facility] [address] [place] [address] Dr. Sonya Mendoza DIGOXINon 08-21-2022 DIG 0.4 ng/mL Critically low 0.9-2.0 [facility] Comment on above: Performed By: #### F T4, PSAD #### [facility] [address] [place] [address] Dr. Sonya Mendoza GLYCOHEMOGLOBIN A1Con 2022 ADA RECOMMENDATION SEE BELOW Normal [facility] Comment on above: Result Comment: ADA RECOMMENDED LIMIT 4.0 - 6.0 ADA THERAPEUTIC TARGET < 7.0 ACTION SUGGESTED > 7.0 Performed By: #### F T4, PSAD #### [facility] [address] [place] [address] Dr. Sonya Mendoza Glucose [Mass/Vol] 206 mg/dL Normal [facility] Comment on above: Performed By: #### F T4, PSAD #### [facility] [address] [address] [address] Sonya Mendoza HbA1c (Bld) [Mass fraction] 8.8 % Critically high 4.5-6.2 [facility] Comment on above: Performed By: #### F T4, PSAD #### [facility] [address] [address] [address] Sonya Mendoza LDHon 08-21-2022 LDH 496 U/L Critically high 85-227 [facility] Comment on above: Performed By: #### F T4, PSAD #### [facility] [address] [address] [address] Sonya Mendoza Transplant SW Assessment Upd ateon 08-16-2022 Transplant SW Assessment Update Note Body SW left pt a message to follow up and check in and complete intermacs and KCCQ-12. SW to follow up with pt. 'Scores and Scales' Signatures Electronically signed by : WOJCIECH Nicholas; Aug 17 2022 2:23PM EST (Author) Normal [facility] LVAD Flowsheeton 08-15-2022 LVAD Flowsheet 4.8 1 MG-Cardiol ogy-CM C [facility] [address] [place] Work Phone: LVAD Flowsheet 9600 1 MG-Cardiol ogy-CM C [facility] [address] [place] Work Phone: LVAD Flowsheet 4.9 1 MG-Cardiol ogy-CM C [facility] [address] [place] Work Phone: LVAD Flowsheet 5.9 1 MG-Cardiol ogy-CM C [facility] [address] [place] Work Phone: LVAD Flowsheet no active alarms MG-C ardiology-CM C [facility] [address] [place] Work Phone: Office Visit (Cardiology)on 08-15-2022 Follow-up visit Diagnoses/Problems Assessed LVAD (left ventricular assist device) present (V43.21) (Z95.811) Chronic systolic heart failure (428.22) (I50.22) Shortness of breath (786.05) (R06.02) Anticoagulant long-term use (V58.61) (Z79.01) Diabetes mellitus (250.00) (E11.9) Encounter for monitoring digoxin therapy (V58.83,V58.69) (Z51.81,Z79.899) Anemia (285.9) (D64.9) Aortic valve insufficiency, acquired (424.1) (I35.1) Orders Anticoagulant long-term use LDH; Status:Active - Retrospective Authorization; Requested for:[id number]; Chronic systolic heart failure Complete Blood Count + Differential; Status:Active - Retrospective Authorization; Requested for:[id number]; Diabetes mellitus Hemoglobin A1C; Status:Active - Retrospective Authorization; Requested for:[id number]; Encounter for monitoring digoxin therapy Digoxin Level, Serum; Status:Need Information - ABN Disposition,Retrospec tive Authorization; Requested for:15Aug2022; LVAD (left ventricular assist device) present Comprehensive Metabolic Panel; Status:Active - Retrospective Authorization; Requested for:15Aug2022; Echocardiogram; Status:Hold For - Scheduling,Retrospect pilar Authorization; Requested for:15Aug2022; Shortness of breath Brain Natriuretic Peptide BNP; Status:Active - Retrospective Authorization; Requested for:15Aug2022; Patient Instructions -Please bring a list of your medications to every visit. -Please bring your VAD equipment to your next visit. -If you have any questions or concerns, please contact the LVAD office at [phone]. If it is after hours and it is an emergency, please page the LVAD pager by calling [phone] and ask them to page [phone]. Please give the aluminum hydroxide process operator your return number in order for the team to reach you. -Follow up in 6 months with SW. -Schedule an echo (heart ultrasound). Call [phone] or schedule at the front office coordinator. -Get labs drawn today (CBC, CMP, BNP, LDH, DIG level, A1C). Chief Complaint TERRY VILLALPANDO is being seen for a 6 month follow-up of fatigue and mechanical circulatory support. Adult Risk Screening There are no spiritual/cultural practices/values/need s that are important to know Initial Fall Risk Screening: TERRY has not fallen in the last 6 months. TERRY does not have a fear of falling. He does not need assistance with sitting, standing or walking. Does not need assistance walking in his home. He does not need assistance in an unfamiliar setting. The patient is not using an assistive device. History of Present Illness Primary LVAD [employer] Worker: Dr. Lay Vaca Mr. Villalpando is a 61 y/o male with a PMHx sig for stage D systolic HF/NICM/HFrEF with severe LV dysfunction s/p ICD s/p HM II LVAD (08/2013 at [facility]; exchanged 07/[address] [facility] for pump thrombosis) with associated RV dysfunction, CKD, dyslipidemia, DM, pAF, and subclinical hypothyroidism who presents to the LVAD clinic for ongoing evaluation and management. He is co-managed by the team at [facility] (Dr Yi). Has not been seen by [facility] in a couple of years he says. Interval Hx: Patient denies CP, palpitations, dizziness, BLANC, orthopnea, PND, edema, LVAD alarms, N/V/D, hematochezia, hematuria, epistaxis. Patient sleeps flat in bed with 1 pillows. Denies difficulty ambulating long distances or flights of stairs. Takes diuretic pills 3x/week. Most recent INR is 2.8. Driveline is clean with no drainage. Dressing was last changed on Saturday. The patient presents with non-ischemic heart failure with reduced ejection fraction. The patient's last LV ejection fraction was 10-15%. echo 08/24/2021. The patient is NYHA functional Class II. This is stage D heart failure. Symptoms: denies lower extremity edema, denies dyspnea on exertion, denies fatigue, denies exercise intolerance, denies orthopnea and denies paroxysmal nocturnal dyspnea. Associated symptoms include no chest pain, no syncope, no palpitations, no recent weight gain and no recent weight loss. Home Monitoring: The patient checks his weight sporadically. Weight control has been good. Medications: the patient is adherent with his medication regimen. He denies medication side effects. Disease Management: the patient is doing well with his heart failure goals. Due For: electrolytes and an echocardiogram. Active Problems Problems Acute kidney injury with acute tubular necrosis (584.5) (N17.0) Acute pancreatitis (577.0) (K85.90) Afib (427.31) (I48.91) Anemia (285.9) (D64.9) Anticoagulant long-term use (V58.61) (Z79.01) Aortic valve insufficiency, acquired (424.1) (I35.1) Chronic systolic heart failure (428.22) (I50.22) Congestive heart failure (428.0) (I50.9) COPD (chronic obstructive pulmonary disease) (496) (J44.9) Diabetes mellitus (250.00) (E11.9) Electrolyte and fluid disorder (276.9) (E87.8) Encounter for immunization (V03.89) (Z23) Encounter for monitoring digoxin therapy (V58.83,V58.69) (Z51.81,Z79.899) GERD (gastroesophageal reflux disease) (530.81) (K2 (more content not included)... Normal [employer] Tobacco Screening.on 023 Fall risk assessment a) No falls within the last year HF-Apyrujeihh-MS C [employer] [address] [place] Work Phone: Tobacco use status [facility] b) No VW-Atmevwtdvz-QD C [employer] [address] [place] Work Phone: GLYCOHEMOGLOBIN A1Con 2022 ADA RECOMMENDATION SEE BELOW Normal [facility] Comment on above: Result Comment: ADA RECOMMENDED LIMIT 4.0 - 6.0 ADA THERAPEUTIC TARGET < 7.0 ACTION SUGGESTED > 7.0 Performed By: #### A 1C #### [facility] [address] [place] [address] Dr. Sonya Mendoza Glucose [Mass/Vol] 169 mg/dL Normal [facility] Comment on above: Performed By: #### A 1C #### [facility] [address] [address] [address] Sonya Mendoza HbA1c (Bld) [Mass fraction] 7.5 % Critically high 4.5-6.2 [facility] Comment on above: Performed By: #### A 1C #### [facility] [address] [address] [address] Sonya Mendoza PROF CHEM 8 (BAS METB)on Anion gap [Moles/Vol] 12.3 mmol/L Normal [facility] Comment on above: Performed By: #### I NFLUAB #### [facility] [address] [address] [address] Sonya Mendoza Calcium [Mass/Vol] 9.2 mg/dL Normal 8.5-10.1 [facility] Comment on above: Performed By: #### I NFLUAB #### [facility] [address] [address] [address] Sonya Mendoza Chloride [Moles/Vol] 101 mmol/L Normal 98-107 [facility] Comment on above: Performed By: #### I NFLUAB #### [facility] [address] [place] [address] Dr. Sonya Mendoza CO2 [Moles/Vol] 27.0 mmol/L Normal 21.0-32.0 [facility] Comment on above: Performed By: #### I NFLUAB #### [facility] [address] [place] [address] Dr. Sonya Mendoza Creatinine [Mass/Vol] 1.27 mg/dL Normal 0.70-1.30 [facility] Comment on above: Performed By: #### I NFLUAB #### [facility] [address] [place] [address] Dr. Sonya Mendoza EGFR-AF SENEGALESE >60 Normal >=60 [facility] Comment on above: Performed By: #### I NFLUAB #### [facility] [address] [place] [address] Dr. Sonya Mendoza EGFR-NON AF SENEGALESE 58 mL/min/1.73m2 Critically low >=60 [facility] Comment on above: Performed By: #### I NFLUAB #### [facility] [address] [place] [address] Dr. Sonya Mendoza Glucose [Mass/Vol] 249 mg/dL Critically high 74-106 [facility] Comment on above: Performed By: #### I NFLUAB #### [facility] [address] [address] [address] Sonya Mendoza Potassium [Moles/Vol] 4.3 mmol/L Normal 3.5-5.1 [facility] Comment on above: Performed By: #### I NFLUAB #### [facility] [address] [address] [address] Sonya Mendoza Sodium [Moles/Vol] 136 mmol/L Normal 136-145 [facility] Comment on above: Performed By: #### I NFLUAB #### [facility] [address] [address] [address] Sonya Mendoza Urea nitrogen [Mass/Vol] 31.0 mg/dL Critically high 7.0-18.0 [facility] Comment on above: Performed By: #### I NFLUAB #### [facility] [address] [place] [address] Dr. Sonya Mendoza Urea nitrogen/Creatinine [Mass ratio] 24.4 mg/mg Normal [facility] Comment on above: Performed By: #### I NFLUAB #### [facility] [address] [place] [address] Dr. Sonya Mendoza Covid-19 PCR ([facility])on 03-22 SARS-CoV-2 (COVID-19) RNA GALILEO+probe Ql (Unsp spec) Not detected Normal NOT DETECTED [facility] Comment on above: Result Comment: When diagnostic testing is negative, the possibility of a false negative should be considered in the context of a patient's recent exposures and the presence of clinical signs and symptoms consistent with SARS-CoV-2. This test is not yet approved or cleared by the [place] FDA. When there are no FDA-approved or cleared tests available, and other criteria are met, FDA can make tests available under an emergency access mechanism called an Emergency Use Authorization (EUA). The EUA for this test is supported by the Jack Prizer of Health and Human Service's declaration that circumstances exist to justify the emergency use of in vitro diagnostics for the detection and/or diagnosis of the virus that causes COVID-19. This EUA will remain in effect for the duration of the COVID-19 declaration justifying emergency of IVDs, unless it is terminated or revoked by the FDA (after which the test may no longer be used). Performed By: #### F T4, PSAD #### [facility] [address] [place] [address] Dr. Sonya Mendoza INFLUENZA A AND B AGon 04-01 INFLUANEGH SEE BELOW Normal [facility] Comment on above: Result Comment: Nega tive for Flu A protein angiten. Infection due to Flu A cannot be ruled out. Flu A angiten in the sample may be below the detection limit of the test. Performed By: #### I NFLUAB #### [facility] [address] [place] [address] Dr. Sonya Mendoza INFLUBNEG SEE BELOW Normal [facility] Comment on above: Result Comment: Nega tive for Flu B protein antigen. Infection due to Flu B cannot be ruled out. Flu B antigen in the sample may be below the detection limit of the test. Performed By: #### I NFLUAB #### [facility] [address] [place] [address] Dr. Sonya Mendoza INFLUENZA A AG Negative Normal NEGATIVE SEE COMMENT [facility] Comment on above: Performed By: #### I NFLUAB #### [facility] [address] [place] [address] Dr. Sonya Mendoza INFLUENZA B AG Negative Normal NEGATIVE SEE COMMENT [facility] Comment on above: Performed By: #### I NFLUAB #### [facility] [address] [place] [address] Dr. Sonya Mendoza INTERNAL CONTROLS Within Normal Limits Normal Wi thin Normal Limits [facility] Comment on above: Performed By: #### I NFLUAB #### [facility] [address] [place] [address] Dr. Sonya Mendoza XR CHEST 1 Von 04-01-2022 XR CHEST 1 V EXAM: XR CHEST 1 V HISTORY: COUGH COMPARISON(S): Abdominal radiograph 02/02/2021, chest radiograph 01/09/2021, 05/03/2019 TECHNIQUE: Single portable AP chest radiograph FINDINGS: Support devices: Left chest wall dual lead cardiac conduction device with leads terminating over the right atrium and right surgical. Partially imaged left ventricular BiVAD system. Lungs/pleura: Lungs are clear. No pleural effusion or pneumothorax. Heart/mediastinum: Moderate cardiomegaly. Pulmonary venous engorgement. Bones/Soft Tissues: Degenerative changes of the shoulders and spine. Upper abdomen: Imaged upper abdomen is unremarkable. IMPRESSION: No evidence for acute cardiopulmonary disease. Cardiomegaly. Electronically authenticated by: CHADWICK SHERMAN Date: 2022-04-01 12:13 Normal [facility] FREE T4on 01-30-2022 Free T4 [Mass/Vol] 1.32 ng/dL Normal 0.76-1.46 [facility] Comment on above: Performed By: #### I NFLUAB #### [facility] [address] [place] [address] Dr. Sonya Mendoza GLYCOHEMOGLOBIN A1Con 2021 ADA RECOMMENDATION SEE BELOW Normal [facility] Comment on above: Result Comment: ADA RECOMMENDED LIMIT 4.0 - 6.0 ADA THERAPEUTIC TARGET < 7.0 ACTION SUGGESTED > 7.0 Performed By: #### F T4, PSAD #### [facility] [address] [address] [address] Sonya Mendoza Glucose [Mass/Vol] 220 mg/dL Normal [facility] Comment on above: Performed By: #### F T4, PSAD #### [facility] [address] [address] [address] Sonya Mendoza HbA1c (Bld) [Mass fraction] 9.3 % Critically high 4.5-6.2 [facility] Comment on above: Performed By: #### F T4, PSAD #### [facility] [address] [address] [address] Sonya Mendoza PROF CHEM 8 (BAS METB)on Anion gap [Moles/Vol] 16.9 mmol/L Normal [facility] Comment on above: Performed By: #### F T4, PSAD #### [facility] [address] [place] [address] Dr. Sonya Mendoza Calcium [Mass/Vol] 8.6 mg/dL Normal 8.5-10.1 [facility] Comment on above: Performed By: #### F T4, PSAD #### [facility] [address] [address] [address] Sonya Mendoza Chloride [Moles/Vol] 101 mmol/L Normal 98-107 [facility] Comment on above: Performed By: #### F T4, PSAD #### [facility] [address] [place] [address] Dr. Sonya Mendoza CO2 [Moles/Vol] 23.5 mmol/L Normal 21.0-32.0 [facility] Comment on above: Performed By: #### F T4, PSAD #### [facility] [address] [place] [address] Dr. Sonya Mendoza Creatinine [Mass/Vol] 1.75 mg/dL Critically high 0.70-1.30 [facility] Comment on above: Performed By: #### F T4, PSAD #### [facility] [address] [place] [address] Dr. Sonya Mendoza EGFR-AF SENEGALESE 48 mL/min/1.73m2 Critically low >=60 [facility] Comment on above: Performed By: #### F T4, PSAD #### [facility] [address] [place] [address] Dr. Sonya Mendoza EGFR-NON AF SENEGALESE 40 mL/min/1.73m2 Critically low >=60 [facility] Comment on above: Performed By: #### F T4, PSAD #### [facility] [address] [place] [address] Dr. Sonya Mendoza Glucose [Mass/Vol] 292 mg/dL Critically high 74-106 [facility] Comment on above: Performed By: #### F T4, PSAD #### [facility] [address] [place] [address] Dr. Sonya Mendoza Potassium [Moles/Vol] 4.4 mmol/L Normal 3.5-5.1 [facility] Comment on above: Performed By: #### F T4, PSAD #### [facility] [address] [place] [address] Dr. Sonya Mendoza Sodium [Moles/Vol] 137 mmol/L Normal 136-145 [facility] Comment on above: Performed By: #### F T4, PSAD #### [facility] [address] [place] [address] Dr. Sonya Mendoza Urea nitrogen [Mass/Vol] 28.0 mg/dL Critically high 7.0-18.0 [facility] Comment on above: Performed By: #### F T4, PSAD #### [facility] [address] [place] [address] Dr. Sonya Mendoza Urea nitrogen/Creatinine [Mass ratio] 16.0 mg/mg Normal [facility] Comment on above: Performed By: #### F T4, PSAD #### [facility] [address] [place] [address] Dr. Sonya Mendoza TSHon 01-30-2022 TSH 4.314 uIU/mL Critically high 0.358-3.740 [facility] Comment on above: Performed By: #### F T4, PSAD #### [facility] [address] [place] [address] Dr. Sonya Mendoza LVAD [place] 01-25-2022 LVAD Flowsheet 5.4 1 MG-Cardiol ogy-CM [facility] [address] [place] Work Phone: LVAD Flowsheet 9600 1 MG-Cardiol ogy-CM [facility] [address] [place] Work Phone: LVAD Flowsheet 4.7 1 MG-Cardiol ogy-CM [facility] [address] [place] Work Phone: LVAD Flowsheet 6.4 1 MG-Cardiol ogy-CM [facility] [address] [place] Work Phone: LVAD Flowsheet POWER DISCONNECT and LOW VOLTAGE ADVISORY alarms; VAD OFF alarm on 01/10/2022 EH-Ssqhrugcen-OI [facility] [address] [place] Work Phone: Office Visit (Cardiology)on 01-25-2022 Follow-up visit Diagnoses/Problems Assessed Anticoagulant long-term use (V58.61) (Z79.01) LVAD (left ventricular assist device) present (V43.21) (Z95.811) Nonischemic cardiomyopathy (425.4) (I42.8) Systolic heart failure, ACC/AHA stage D (428.20) (I50.20) Orders Electrolyte and fluid disorder Complete Blood Count; Status:Active; Requested for:25Jan2022; Comprehensive Metabolic Panel; Status:Active; Requested for:25Jan2022; Electrolyte and fluid disorder, Shortness of breath LDH; Status:Active; Requested for:25Jan2022; Encounter for monitoring digoxin therapy, Systolic heart failure, ACC/AHA stage D Digoxin Level, Serum; Status:Active; Requested for:25Jan2022; HLD (hyperlipidemia) Lipid Panel; Status:Active; Requested for:25Jan2022; HLD (hyperlipidemia), LVAD (left ventricular assist device) present Start: Fish Oil 1000 MG Oral Capsule; TAKE TWO CAPSULES BY MOUTH TWO TIMES A DAY HTN (hypertension), Systolic heart failure, ACC/AHA stage D Start: Lisinopril 5 MG Oral Tablet; Take 1 tablet daily Patient Instructions -Please bring a list of your medications to every visit. -If you have any questions or concerns, please contact the LVAD office at [phone], option 3 or the direct line at [phone]. Please state that you are an LVAD patient. If it is after hours and it is an emergency, please page the LVAD pager by calling [phone] #[phone]. -Follow up in on May 02 at 1:[address] Cooper Vaca in [place] [address]. -Start lisinopril 5 mg daily for blood pressure control. If you become tired or dizzy, please let me know and we can stop this med. -Start fish oil 2 grams twice daily. This is to help make sure you don't bleed. -Take torsemide 20 mg once for your leg swelling. -Get labs drawn (CBC, CMP, LDH, dig, lipid) in about 2 weeks. Chief Complaint TERRY VILLALPANDO is being seen for a 3 month follow-up of heart failure, mechanical circulatory support and a routine medication evaluation. He denies medication side effects. Adult Risk Screening There are no spiritual/cultural practices/values/need s that are important to know Initial Fall Risk Screening: TERRY has not fallen in the last 6 months. TERRY does not have a fear of falling. He does not need assistance with sitting, standing or walking. Does not need assistance walking in his home. He does not need assistance in an unfamiliar setting. The patient is not using an assistive device. History of Present Illness Primary LVAD [employer] Worker: Dr. Lay Vaca Mr. Villalpando is a 61 y/o male with a PMHx sig for stage D systolic HF/NICM/HFrEF with severe LV dysfunction s/p ICD s/p HM II LVAD (08/2013 at [facility]; exchanged 07/[address] [facility] for pump thrombosis) with associated RV dysfunction, CKD, dyslipidemia, DM, pAF, and subclinical hypothyroidism who presents to the LVAD clinic for ongoing evaluation and management. He is co-managed by the team at [facility] (Dr Yi). Has not been seen by [facility] in a couple of years he says. Interval Hx: Patient denies CP, palpitations, dizziness, BLANC, orthopnea, PND, LVAD alarms, N/V/D, hematochezia, hematuria, epistaxis. Patient sleeps lying flat with 1 pillow. Has some BLE that he states is dependent edema from travelling here. He has been taking PRN torsemide about 3x per week recently because he is moving and has been up on his feet a lot. INR is being managed by PST program. Driveline is clean with no drainage. Dressing was changed last night by his . Dressing is c/d/i. The patient presents with non-ischemic heart failure with reduced ejection fraction. The patient's last LV ejection fraction was 10-15%. echo 08/24/2021. The patient is NYHA functional Class II. This is stage D heart failure. Symptoms: worsened lower extremity edema, denies dyspnea on exertion, denies fatigue, denies exercise intolerance, denies orthopnea and denies paroxysmal nocturnal dyspnea. Associated symptoms include no chest pain, no syncope, no palpitations, no recent weight gain and no recent weight loss. Home Monitoring: The patient checks his weight sporadically. Weight control has been good. Medications: the patient is adherent with his medication regimen. He denies medication side effects. Disease Management: the patient is doing well with his heart failure goals. Active Problems Problems Acute kidney injury with acute tubular necrosis (584.5) (N17.0) Acute on chronic systolic congestive heart failure (428.23,428.0) (I50.23) Acute pancreatitis (577.0) (K85.90) Afib (427.31) (I48.91) Anemia (285.9) (D64.9) Anticoagulant long-term use (V58.61) (Z79.01) Aortic valve insufficiency, acquired (424.1) (I35.1) Chronic systolic heart failure (428.22) (I50.22) Congestive heart failure (428.0) (I50.9) COPD (chronic obstructive pulmonary disease) (496) (J44.9) Diabetes mellitus (250.00) (E11.9) Electrolyte and fluid disorder (276.9) (E87.8) Encounter for immunization (V03.89) (Z23) Encounter for monitoring digoxin therapy (V58.83, (more content not included)... Normal [employer] Tobacco Screening.on 022 Fall risk assessment a) No falls within the last year XV-Epjbwriicq-QQ [facility] [place] Work Phone: Tobacco use status CPHS b) No VU-Qocbamaaah-WF C [employer] [address] [place] Work Phone: Laboratory - Chemistry and C hemistry - challengeon 12-28-2021 Albumin BCP dye [Mass/Vol] 4.2 g/dL 3.4 - 5.0 ZH-Rsmwizwdsd-WG [facility] [place] Work Phone: ALP [Catalytic activity/Vol] 77 U/L 33 - 136 EP-Uzdpylkrrr-YJ [facility] [place] Work Phone: ALT With P-5'-P [Catalytic activity/Vol] 14 U/L 10 - 52 CW-Infmmdforu-TR [facility] [place] Work Phone: Comment on above: Patients treated wit h Sulfasalazine may generate falsely decreased results for ALT. Anion gap [Moles/Vol] 16 mmol/L 10 - 20 MG- Cardiology-CM [facility] [place] Work Phone: AST With P-5'-P [Catalytic activity/Vol] 22 U/L 9 - 39 DP-Qptyabpetb-TF [facility] [address] [place] Work Phone: Bilirubin [Mass/Vol] 1.2 mg/dL 0.0 - 1.2 MG-C ardiology-CM [facility] [address] [place] Work Phone: Calcium [Mass/Vol] 9.2 mg/dL 8.6 - 10.6 MG-Car diology-CM [facility] [address] [place] Work Phone: Chloride [Moles/Vol] 100 mmol/L 98 - 107 MG-C ardiology-CM [facility] [address] [place] Work Phone: CO2 [Moles/Vol] 21 mmol/L 21 - 32 MG-Cardio logy-CM [facility] [address] [place] Work Phone: Creatinine [Mass/Vol] 1.26 mg/dL See Below MG- Cardiology-CM [facility] [address] [place] Work Phone: Comment on above: Reference Range: 0.5 0 - 1.30 Glucose [Mass/Vol] 233 mg/dL above high threshold 74 - 99 ZG-Pjxianoweb-CY [facility] [address] [place] Work Phone: LDH [Catalytic activity/Vol] 410 U/L above high threshold 84 - 246 GT-Gpemjhchbb-YI [facility] [address] [place] Work Phone: Potassium [Moles/Vol] 5.1 mmol/L 3.5 - 5.3 MG- Cardiology-CM [facility] [address] [place] Work Phone: Protein [Mass/Vol] 8.1 g/dL 6.4 - 8.2 MG-Car diology-CM [facility] [address] [place] Work Phone: Sodium [Moles/Vol] 132 mmol/L below low threshold 136 - 145 FJ-Rxqmfuexpq-SN [facility] [address] [place] Work Phone: Urea nitrogen [Mass/Vol] 24 mg/dL above high threshold 6 - 23 UG-Xsqjuipcnq-KT [facility] [address] [place] Work Phone: Glucose [Mass/Vol] 167 mg/dL above high threshold 74 - 99 FG-Svkmymspda-SH [facility] [address] [place] Work Phone: Laboratory - Coagulationon 0 12-28-2021 aPTT Coag (PPP) [Time] 37 s 26 - 39 VQ-Zrbwiorrdh-OW [facility] [address] [place] Work Phone: Comment on above: THE APTT IS NO LONGE R USED FOR MONITORING UNFRACTIONATED HEPARIN THERAPY. FOR MONITORING HEPARIN THERAPY, USE THE HEPARIN ASSAY. INR Coag (PPP) [Relative time] 2.7 {INR} above high threshold 0.9 - 1.1 CI-Obndjfupfr-PA [facility] [address] [place] Work Phone: PT Coag (PPP) [Time] 31.1 s above high threshold 9.8 - 13.4 PS-Mezokuhirf-NR [facility] [address] [place] Work Phone: Laboratory - Hematology and Cell countson 12-28-2021 Erythrocyte distribution width (RBC) [Ratio] 17.0 % above high threshold See Below ZL-Gnxxrefepf-BL [facility] [address] [place] Work Phone: Comment on above: Reference Range: 11. 5 - 14.5 Hematocrit (Bld) [Volume fraction] 45.4 % See Below MG-Cardiology- CM C [facility] [address] [place] Work Phone: Comment on above: Reference Range: 41. 0 - 52.0 Hemoglobin (Bld) [Mass/Vol] 13.7 g/dL See Below ZI-Xfeyqfgtzg-RH [facility] [address] [place] Work Phone: Comment on above: Reference Range: 13. 5 - 17.5 MCHC (RBC) [Mass/Vol] 30.2 g/dL below low threshold See Below KS-Qvtfgaylhl-WP [facility] [address] [place] Work Phone: Comment on above: Reference Range: 32. 0 - 36.0 MCV (RBC) [Entitic vol] 88 fL 80 - 100 DQ-Yugqyagxdj-EP [facility] [address] [place] Work Phone: Platelets (Bld) [#/Vol] 164 10*3/uL 150 - 450 YB-Zovxxokhbu-VO [facility] [address] [place] Work Phone: RBC (Bld) [#/Vol] 5.18 {x10E12/L} See Below MG -Cardiology-CM C [facility] [address] [place] Work Phone: Comment on above: Reference Range: 4.5 0 - 5.90 WBC (Bld) [#/Vol] 7.5 10*3/uL 4.4 - 11.3 MG-Car diology-CM [facility] [address] [place] Work Phone: Magnesium, Serumon 2 Magnesium [Mass/Vol] 2.15 mg/dL See Below MG-C ardiology-CM [facility] [address] [place] Work Phone: Comment on above: Reference Range: 1.6 0 - 2.40 No Panel Informationon 12-28 65 {mL/min/1.73m2} >90 MG-Car diology-CM [facility] [address] [place] Work Phone: Comment on above: CALCULATIONS OF ERICA MATED GFR ARE PERFORMED USING THE 2020 CKD-EPI STUDY REFIT EQUATION WITHOUT THE RACE VARIABLE FOR THE IDMS-TRACEABLE CREATININE METHODS.https://jasn.asnjournals.org/content/early// N.1431120103 0.0 {/100_WBC} 0.0-0.0 MG-Cardiol ogy-CM C [facility] [address] [place] Work Phone: CT Biopsy Bone Trocar/Needle Superficialon 12-27-2021 CT Guidance for superficial biopsy of Bone Normal YT-Xovzzgtqdh-NX [facility] [address] [place] Work Phone: Complete Blood Count + Diffe rentialon 12-27-2021 Basophils/100 WBC (Bld) 1.5 % 0.0 - 2.0 ES-Tnwhxirhtx-GM [facility] [address] [place] Work Phone: Erythrocyte distribution width (RBC) [Ratio] 17.0 % above high threshold See Below NL-Biqhnemzze-RU [facility] [address] [place] Work Phone: Comment on above: Reference Range: 11. 5 - 14.5 Hematocrit (Bld) [Volume fraction] 43.2 % See Below MG-Cardiology- CM [facility] [address] [place] Work Phone: Comment on above: Reference Range: 41. 0 - 52.0 Hemoglobin (Bld) [Mass/Vol] 13.0 g/dL below low threshold See Below XW-Dojsrmsyyl-LI [facility] [address] [place] Work Phone: Comment on above: Reference Range: 13. 5 - 17.5 Lymphocytes/100 WBC (Bld) 16.7 % See Below WZ-Blmyrptnwd-LL [facility] [address] [place] Work Phone: Comment on above: Reference Range: 13. 0 - 44.0 MCHC (RBC) [Mass/Vol] 30.1 g/dL below low threshold See Below KU-Dhqugiwtel-PX [facility] [address] [place] Work Phone: Comment on above: Reference Range: 32. 0 - 36.0 MCV (RBC) [Entitic vol] 90 fL 80 - 100 ET-Ehqrsnwgev-HN [facility] [address] [place] Work Phone: Monocytes/100 WBC (Bld) 14.3 % 2.0 - 10.0 VU-Nxfqcldnzf-DE [facility] [address] [place] Work Phone: Neutrophils/100 WBC (Bld) 59.8 % See Below FT-Pvgaoymmmp-NO [facility] [address] [place] Work Phone: Comment on above: Reference Range: 40. 0 - 80.0 Platelets (Bld) [#/Vol] 145 10*3/uL below low threshold 150 - 450 FI-Prswznuuxe-GM [facility] [address] [place] Work Phone: RBC (Bld) [#/Vol] 4.82 {x10E12/L} See Below MG -Cardiology-CM C [facility] [address] [place] Work Phone: Comment on above: Reference Range: 4.5 0 - 5.90 WBC (Bld) [#/Vol] 5.3 10*3/uL 4.4 - 11.3 MG-Car diology-CM C [facility] [address] [place] Work Phone: Complete Blood Count + Differential 0.08 {x10E9/L} See Below FJ-Iaqmmojaoy-KS [facility] [address] [place] Work Phone: Comment on above: Reference Range: 0.0 0 - 0.10 Complete Blood Count + Differential 0.40 {x10E9/L} See Below JC-Adyoxtclve-HE [facility] [address] [place] Work Phone: Comment on above: Reference Range: 0.0 0 - 0.70 Complete Blood Count + Differential 0.76 {x10E9/L} See Below FO-Ooejnbokrf-EP [facility] [address] [place] Work Phone: Comment on above: Reference Range: 0.1 0 - 1.00 Complete Blood Count + Differential 0.89 {x10E9/L} below low threshold See Below GF-Xpimsdcelg-RO [facility] [address] [place] Work Phone: Comment on above: Reference Range: 1.2 0 - 4.80 Complete Blood Count + Differential 3.18 {x10E9/L} See Below UL-Naylhmhqyx-BE [facility] [address] [place] Work Phone: Comment on above: Reference Range: 1.2 0 - 7.70 Complete Blood Count + Differential 7.5 % 0.0 - 6.0 PO-Ucpqzezurl-VP [facility] [address] [place] Work Phone: Complete Blood Count + Differential 0.2 % 0.0 - 0.9 MR-Csftyqyufl-VW [facility] [address] [place] Work Phone: Comment on above: Immature Granulocyte Count (IG) includes promyelocytes, myelocytes and metamyelocytes but does not include bands. Percent differential counts (%) should be interpreted in the context of the absolute cell counts (cells/L). Complete Blood Count + Differential 0.0 {/100_WBC} 0.0-0.0 AE-Sescancoqj-BD [facility] [address] [place] Work Phone: Digoxin Level, Serumon 12-27 Digoxin [Mass/Vol] 0.49 ng/mL below low threshold See Below OR-Wxisiowrvh-EG [facility] [address] [place] Work Phone: Comment on above: Reference Range: 0.8 0 - 2.00 Heparin assay, UFHon 022 Heparin unfractionated Chromogenic method Qn (PPP) 0.2 {IU/mL} WD-Ohckfpquvd-ET C [facility] [address] [place] Work Phone: Comment on above: The therapeutic refe rence range for UFH may be either 0.3-0.6 IU/mL or 0.3-0.7 IU/mL based on the clinical setting for anticoagulant therapy and the associated nomogram used. For heparin dosing guidelines based on clinical scenario and Heparin Assay results, please refer to local Pharmacy and the [facility] Guidelines for Anticoagulation therapy available on the [facility] intranet at:[email or web address] _[email or web address]_[email or web address] Heparin unfractionated Chromogenic method Qn (PPP) 0.3 {IU/mL} JG-Ufrktntgni-YR [facility] [address] [place] Work Phone: Comment on above: The therapeutic refe rence range for UFH may be either 0.3-0.6 IU/mL or 0.3-0.7 IU/mL based on the clinical setting for anticoagulant therapy and the associated nomogram used. For heparin dosing guidelines based on clinical scenario and Heparin Assay results, please refer to local Pharmacy and the [facility] Guidelines for Anticoagulation therapy available on the [facility] intranet at:[email or web address]_[email or web address] Laboratory - Chemistry and C hemistry - challengeon 12-27-2021 Glucose [Mass/Vol] 208 mg/dL above high threshold 74 - 99 TZ-Uocucggijc-SF [facility] [address] [place] Work Phone: Glucose [Mass/Vol] 158 mg/dL above high threshold 74 - 99 UQ-Befvfqjovk-FA [facility] [address] [place] Work Phone: Glucose [Mass/Vol] 102 mg/dL above high threshold 74 - 99 ZX-Anlkjuprsd-RE [facility] [address] [place] Work Phone: Albumin BCP dye [Mass/Vol] 4.0 g/dL 3.4 - 5.0 SB-Gxtsdadxik-CM [facility] [address] [place] Work Phone: ALP [Catalytic activity/Vol] 67 U/L 33 - 136 ZH-Dumkrpoatz-GS [facility] [address] [place] Work Phone: ALT With P-5'-P [Catalytic activity/Vol] 13 U/L 10 - 52 ET-Cdsqyhacsc-JP [facility] [address] [place] Work Phone: Comment on above: Patients treated wit h Sulfasalazine may generate falsely decreased results for ALT. Anion gap [Moles/Vol] 13 mmol/L 10 - 20 MG- Cardiology-CM C [facility] [address] [place] Work Phone: AST With P-5'-P [Catalytic activity/Vol] 22 U/L 9 - 39 FY-Vqisrqmtas-AH [facility] [address] [place] Work Phone: Bilirubin [Mass/Vol] 1.0 mg/dL 0.0 - 1.2 MG-C ardiology-CM C [facility] [address] [place] Work Phone: Calcium [Mass/Vol] 9.0 mg/dL 8.6 - 10.6 MG-Car diology-CM [facility] [address] [place] Work Phone: Chloride [Moles/Vol] 103 mmol/L 98 - 107 MG-C ardiology-CM C [facility] [address] [place] Work Phone: CO2 [Moles/Vol] 24 mmol/L 21 - 32 MG-Cardio logy-CM [facility] [address] [place] Work Phone: Creatinine [Mass/Vol] 1.19 mg/dL See Below MG- Cardiology-CM [facility] [address] [place] Work Phone: Comment on above: Reference Range: 0.5 0 - 1.30 Glucose [Mass/Vol] 122 mg/dL above high threshold 74 - 99 LA-Rmnyofagra-XE [facility] [address] [place] Work Phone: LDH [Catalytic activity/Vol] 386 U/L above high threshold 84 - 246 PO-Ulnhggaegf-XU [facility] [address] [place] Work Phone: Potassium [Moles/Vol] 4.3 mmol/L 3.5 - 5.3 MG- Cardiology-CM [facility] [address] [place] Work Phone: Protein [Mass/Vol] 7.4 g/dL 6.4 - 8.2 MG-Car diology-CM [facility] [address] [place] Work Phone: Sodium [Moles/Vol] 136 mmol/L 136 - 145 MG-Car diology-CM [facility] [address] [place] Work Phone: Urea nitrogen [Mass/Vol] 22 mg/dL 6 - 23 BM-Frptvtptxt-DQ [facility] [address] [place] Work Phone: Laboratory - Coagulationon 0 12-27-2021 aPTT Coag (PPP) [Time] 46 s above high threshold 26 - 39 KF-Wahedzgwxi-RV [facility] [address] [place] Work Phone: Comment on above: THE APTT IS NO LONGE R USED FOR MONITORING UNFRACTIONATED HEPARIN THERAPY. FOR MONITORING HEPARIN THERAPY, USE THE HEPARIN ASSAY. INR Coag (PPP) [Relative time] 2.6 {INR} above high threshold 0.9 - 1.1 TJ-Edbcnvxfxn-DR [facility] [address] [place] Work Phone: PT Coag (PPP) [Time] 30.4 s above high threshold 9.8 - 13.4 SG-Apdpozsktq-LB [facility] [address] [place] Work Phone: INR Coag (PPP) [Relative time] 2.7 {INR} above high threshold 0.9 - 1.1 RH-Ciqlshhqit-PJ [facility] [address] [place] Work Phone: INR Coag (PPP) [Relative time] Canceled RU-Zowrvtutnh-HX [facility] [address] [place] Work Phone: PT Coag (PPP) [Time] 32.0 s above high threshold 9.8 - 13.4 DO-Uppyebhrqc-YI [facility] [address] [place] Work Phone: PT Coag (PPP) [Time] Canceled MG-C ardiology-CM [facility] [address] [place] Work Phone: Laboratory - Hematology and Cell countson 12-27-2021 Granulocytes/100 WBC (Bld) 66 % MB-Oacstkvlbw-HJ [facility] [address] [place] Work Phone: Lymphocytes/100 WBC (Bld) 13 % YW-Nfpklswieb-YV [facility] [address] [place] Work Phone: Monocytes/100 WBC (Bld) 8 % VQ-Cevavdipkh-AG [facility] [address] [place] Work Phone: No Panel Informationon 12-27 SEE BELOW MG-Cardiology- CM [facility] [address] [place] Work Phone: Comment on above: Genetics test res ults are available electronically in [facility] Community Record. Results will be sent on a separate report.In the [facility], go to Community record -> click on Clinical documents -> go to Genetics Studies tab for results. This test is a multi color, whole blood lysis assay. It was developed and its performance characteristics determined by the Department of Pathology, [facility], and has not been cleared or approved by the U.S. Food and Drug Administration. The laboratory is regulated under CLIA as qualified to perform high complexity testing. This test is used for clinical purposes. It should not be regarded as investigational or for research. Immunophenotypic analysis was performed using the following antibodies: CD45, CD71, CD13, CD200, CD14, HLADR, CD2, CD7, CD4, CD5, CD3, CD16, CD56, CD8, CD10, CD20, CD38, CD19, CD43, CD23, CD1c, CD25, CD180, CD11c, CD79b, [place], Lambda, IgD. Plasma cells are CD1 9-, CD45-, CD56+, CD138+, RA457all, CD20 very dim, CD43+ and kappa+ by intracellulsr staining. Plasma cells have a myeloma-like phenotypeThe percentage of plasma cells recovered by flow cytometry may be affected by processing of the specimen and may not accurately reflect the true marrow cellularity.Clinical and morphologic correlation is suggested. Small population of clonal kappa+ plasma cells detected (0.2%) consistent with plasma cell neoplasm.No immunophenotypic evidence of a lymphoproliferative disorder.No increased blast population identified. 0.20 % MG-Cardiology- CM [facility] [address] [place] Work Phone: 27 {%_of_Lymph} MG-Cardio logy-CM [facility] [address] [place] Work Phone: Comment on above: PolyclonalKappa/Hinojosa da= 59:35 (MB77-glofn) 17 {%_of_Lymph} MG-Cardio logy-CM [facility] [address] [place] Work Phone: 30 {%_of_Lymph} MG-Cardio logy-CM [facility] [address] [place] Work Phone: 24 {%_of_Lymph} MG-Cardio logy-CM [facility] [address] [place] Work Phone: 100,000 - 150,381 MG-Card iology-CM [facility] [address] [place] Work Phone: 6.96 {x10E9/L} MG-Cardiol ogy-CM [facility] [address] [place] Work Phone: Acceptable MG-Cardiology- CM [facility] [address] [place] Work Phone: Comment on above: Flow cytometry resul ts should be interpreted in the context of morphology. Flow cytometry findings may be unreliable due to sampling issues, differential loss or recovery of cell populations ex vivo, or low viability. Bone Marrow MG-Cardiology -CM [facility] [address] [place] Work Phone: HUGOSON MG-Cardiology- CM [facility] [address] [place] Work Phone: Comment on above: By her/his signature above, the Pathologist listed as making the final interpretation certifies that she/he has personally reviewed this case. LOW GRADE PANEL MG-Cardio logy-CM [facility] [address] [place] Work Phone: MG-Cardiology- CM [facility] [address] [place] Work Phone: 70 {mL/min/1.73m2} >90 MG-Car diology-CM [facility] [address] [place] Work Phone: Comment on above: CALCULATIONS OF ERICA MATED GFR ARE PERFORMED USING THE 2020 CKD-EPI STUDY REFIT EQUATION WITHOUT THE RACE VARIABLE FOR THE IDMS-TRACEABLE CREATININE METHODS.https://jasn.asnjournals.org/content// N.8203856715 Complete Blood Count + Diffe melatialon 12-26-2021 Basophils/100 WBC (Bld) 1.3 % 0.0 - 2.0 XQ-Wpjnuzqrzo-NC [facility] [address] [place] Work Phone: Erythrocyte distribution width (RBC) [Ratio] 16.8 % above high threshold See Below AS-Hjzugqwqtj-RR [facility] [address] [place] Work Phone: Comment on above: Reference Range: 11. 5 - 14.5 Hematocrit (Bld) [Volume fraction] 43.8 % See Below MG-Cardiology- CM [facility] [address] [place] Work Phone: Comment on above: Reference Range: 41. 0 - 52.0 Hemoglobin (Bld) [Mass/Vol] 12.9 g/dL below low threshold See Below MP-Zelgiubvsh-DX [facility] [address] [place] Work Phone: Comment on above: Reference Range: 13. 5 - 17.5 Lymphocytes/100 WBC (Bld) 16.1 % See Below EL-Fmcszbgkyw-GM [facility] [address] [place] Work Phone: Comment on above: Reference Range: 13. 0 - 44.0 MCHC (RBC) [Mass/Vol] 29.5 g/dL below low threshold See Below NC-Ohwikveyur-DY [facility] [address] [place] Work Phone: Comment on above: Reference Range: 32. 0 - 36.0 MCV (RBC) [Entitic vol] 91 fL 80 - 100 ZF-Imntawpybv-FB [facility] [address] [place] Work Phone: Monocytes/100 WBC (Bld) 13.8 % 2.0 - 10.0 JT-Jecvmudrzm-UX [facility] [address] [place] Work Phone: Neutrophils/100 WBC (Bld) 62.3 % See Below XN-Vevlkqqkom-EP [facility] [address] [place] Work Phone: Comment on above: Reference Range: 40. 0 - 80.0 Platelets (Bld) [#/Vol] 154 10*3/uL 150 - 450 VT-Gychceajyb-AF [facility] [address] [place] Work Phone: RBC (Bld) [#/Vol] 4.82 {x10E12/L} See Below MG -Cardiology-CM [facility] [address] [place] Work Phone: Comment on above: Reference Range: 4.5 0 - 5.90 WBC (Bld) [#/Vol] 5.4 10*3/uL 4.4 - 11.3 MG-Car diology-CM [facility] [address] [place] Work Phone: Complete Blood Count + Differential 0.07 {x10E9/L} See Below WI-Igjjgeqien-SX [facility] [address] [place] Work Phone: Comment on above: Reference Range: 0.0 0 - 0.10 Complete Blood Count + Differential 0.33 {x10E9/L} See Below FO-Hvqfdcilqf-JG [facility] [address] [place] Work Phone: Comment on above: Reference Range: 0.0 0 - 0.70 Complete Blood Count + Differential 0.75 {x10E9/L} See Below CY-Vgetwtcwuh-ZA [facility] [address] [place] Work Phone: Comment on above: Reference Range: 0.1 0 - 1.00 Complete Blood Count + Differential 0.87 {x10E9/L} below low threshold See Below EF-Uxmpuuqlwm-DU [facility] [address] [place] Work Phone: Comment on above: Reference Range: 1.2 0 - 4.80 Complete Blood Count + Differential 3.38 {x10E9/L} See Below NU-Rrdtinvtsh-HP [facility] [address] [place] Work Phone: Comment on above: Reference Range: 1.2 0 - 7.70 Complete Blood Count + Differential 6.1 % 0.0 - 6.0 CQ-Aehutnbqod-UD [facility] [address] [place] Work Phone: Complete Blood Count + Differential 0.4 % 0.0 - 0.9 JX-Qnhqevebpr-RG [facility] [address] [place] Work Phone: Comment on above: Immature Granulocyte Count (IG) includes promyelocytes, myelocytes and metamyelocytes but does not include bands. Percent differential counts (%) should be interpreted in the context of the absolute cell counts (cells/L). Complete Blood Count + Differential 0.0 {/100_WBC} 0.0-0.0 FV-Kssaorcfts-TD [facility] [address] [place] Work Phone: Heparin assay, UFHon 06-2 022 Heparin unfractionated Chromogenic method Qn (PPP) 0.1 {IU/mL} ER-Cqhepdbpyg-MD [facility] [address] [place] Work Phone: Comment on above: The therapeutic refe rence range for UFH may be either 0.3-0.6 IU/mL or 0.3-0.7 IU/mL based on the clinical setting for anticoagulant therapy and the associated nomogram used. For heparin dosing guidelines based on clinical scenario and Heparin Assay results, please refer to local Pharmacy and the [facility] Guidelines for Anticoagulation therapy available on the [facility] intranet at:[email or web address] Laboratory - Chemistry and C hemistry - challengeon 12-26-2021 Glucose [Mass/Vol] 150 mg/dL above high threshold 74 - 99 WC-Adbaovxyhk-FI [facility] [address] [place] Work Phone: Glucose [Mass/Vol] 165 mg/dL above high threshold 74 - 99 YE-Bygzjiamrq-GN [facility] [address] [place] Work Phone: Albumin BCP dye [Mass/Vol] 4.1 g/dL 3.4 - 5.0 KS-Vshxhgnjaf-IJ [facility] [address] [place] Work Phone: ALP [Catalytic activity/Vol] 70 U/L 33 - 136 GQ-Tcsefrdfie-FM [facility] [address] [place] Work Phone: ALT With P-5'-P [Catalytic activity/Vol] 13 U/L 10 - 52 LV-Qvktdlzkii-XT [facility] [address] [place] Work Phone: Comment on above: Patients treated wit h Sulfasalazine may generate falsely decreased results for ALT. Anion gap [Moles/Vol] 22 mmol/L above high threshold 10 - 20 YL-Adwcpjrddv-QD [facility] [address] [place] Work Phone: AST With P-5'-P [Catalytic activity/Vol] 23 U/L 9 - 39 QT-Uuzxvalpzz-HT [facility] [address] [place] Work Phone: Bilirubin [Mass/Vol] 0.9 mg/dL 0.0 - 1.2 MG-C ardiology-CM [facility] [address] [place] Work Phone: Calcium [Mass/Vol] 9.0 mg/dL 8.6 - 10.6 MG-Car diology-CM [facility] [address] [place] Work Phone: Chloride [Moles/Vol] 101 mmol/L 98 - 107 MG-C ardiology-CM [facility] [address] [place] Work Phone: CO2 [Moles/Vol] 20 mmol/L below low threshold 21 - 32 QD-Nyztwlbpbo-KH [facility] [address] [place] Work Phone: Creatinine [Mass/Vol] 1.27 mg/dL See Below MG- Cardiology-CM [facility] [address] [place] Work Phone: Comment on above: Reference Range: 0.5 0 - 1.30 Glucose [Mass/Vol] 253 mg/dL above high threshold 74 - 99 CU-Qcycfrbxeu-UR [facility] [address] [place] Work Phone: LDH [Catalytic activity/Vol] 452 U/L above high threshold 84 - 246 DS-Ojjvrhveyy-HJ [facility] [address] [place] Work Phone: Comment on above: MILD HEMOLYSIS DETEC SAMUEL. The result may be falsely elevated due tohemolysis or other interferents. Clinical correlation is recommended.Repeat testing may be considered. Potassium [Moles/Vol] 4.5 mmol/L 3.5 - 5.3 MG- Cardiology-CM [facility] [address] [place] Work Phone: Protein [Mass/Vol] 7.8 g/dL 6.4 - 8.2 MG-Car diology-CM [facility] [address] [place] Work Phone: Sodium [Moles/Vol] 138 mmol/L 136 - 145 MG-Car diology-CM [facility] [address] [place] Work Phone: Urea nitrogen [Mass/Vol] 26 mg/dL above high threshold 6 - 23 XO-Zvkazapkti-ZJ [facility] [address] [place] Work Phone: Laboratory - Coagulationon 0 12-26-2021 INR Coag (PPP) [Relative time] 1.4 {INR} above high threshold 0.9 - 1.1 UI-Wwbtzgjhfv-JC [facility] [employer] [place] Work Phone: PT Coag (PPP) [Time] 16.4 s above high threshold 9.8 - 13.4 XA-Xxcsnctwlk-JF [facility] [facility] [place] Work Phone: Lactate, Levelon 12-26-2021 Lactate [Moles/Vol] 0.9 mmol/L 0.4 - 2.0 MG-Ca rdiology-CM [facility] [employer] [place] Work Phone: Comment on above: Venipuncture immedia tely after or during the administration of Metamizole may lead to falsely low results. Testing should be performed immediately prior to Metamizole dosing. No Panel Informationon 12-26 65 {mL/min/1.73m2} >90 MG-Car diology-CM [facility] [place] Work Phone: Comment on above: CALCULATIONS OF ERICA MATED GFR ARE PERFORMED USING THE 2020 CKD-EPI STUDY REFIT EQUATION WITHOUT THE RACE VARIABLE FOR THE IDMS-TRACEABLE CREATININE METHODS.https://jasn.asnjournals.org/content/early/ N.3574181697 FREE T4on 10-20-2021 Free T4 [Mass/Vol] 1.50 ng/dL Critically high 0.76-1.46 [facility] Comment on above: Performed By: #### I NFLUAB #### [facility] [address] [place] [address] Dr. Sonya Mendoza TSHon 10-20-2021 TSH 0.664 uIU/mL Normal 0.358-3.740 [facility] Comment on above: Performed By: #### F T4, PSAD #### [facility] [address] [place], [place] [address] Dr. Sonya Mendoza Anticoagulation Monitoring S erviceon 10-03-2021 Anticoagulation Monitoring Service Today's INR [id number] IO INR3.3 Target INR range2-3 SourceAMS History of Present Illness Patient identification verified with 2 patient identifiers. Anticoagulation Monitoring Service: [facility]. Enrollment/Re-enrollm ent date: August 07, 2022. The patient is being seen as a follow-up for anticoagulation monitoring. Target INR 2-3. Monitoring practitioner Ju Palacios CNP. Date Warfarin Begun: 2016 INR monitoring is per AMS protocol. PT MAY NOT GO LONGER THAN 2 WEEKS BETWEEN APPTS. The patient is on anticoagulation due to LVAD and NOTIFY LVAD COORDINATOR JENNIFER PALACIOS (PAGER #[phone]) FOR INR <1.8 OR >4. The patient is currently taking warfarin Tablet strength and color: 3 mg (Ugarte) Interval History: September 12, 2021. Previous INR was 2.2. Dose maintained. Incoming total weekly dose 31.5 mg. Today's Clinic INR: AMS INR 3.3. Since last visit, the patient reports no bleeding. Denies. The patient did not experience clinically relevant bleeding. Denies. The patient did not experience other minor bleeding. Denies. Since last visit, the patient has not experienced a thrombotic event. Denies. Denies. The patient reports a change in medication. Pt added vit D approx 3 weeks ago. He reports no change in alcohol consumption. Denies. He reports no change in Vitamin K consumption. Denies. The patient has taken Warfarin as directed. Took as directed. There is no identifiable cause for out of range INR. Management: The patient's INR is supratherapeutic. Will maintain current dose. No clear cause for elevated INR. Will have him take a one time lower dose then maintain current dose. If supratherapeutic at next visit, may need to lower weekly dosing. The patient is not currently being bridged. Next follow up appointment in 1 week(s). If therapeutic, ok to recheck INR in 2 weeks per LVAD protocol. Outgoing total weekly dose 31.5 mg. Patient instructed to call in interim with questions, concerns and changes. Patient educated on interactions between medications and warfarin. Patient educated on dietary consistency in vitamin k consumption. Patient educated on affects of alcohol consumption while taking warfarin. Patient educated on signs of bleeding/clotting. Patient educated on compliance with dosing, follow up appointments, and prescribed plan of care. Discussion/Summary You are currently taking Warfarin. Your tablet strength and color: 3 mg (Ugarte) Next Appointment: Monday, October 11, 2021. Time: 9: 15 am. Location: [facility], , option 2. Your INR today is higher than your target range, you may be at risk for bleeding. Change your dosing as instructed above. Maintain your dose as you were taking it. Visit information Please call in interim with questions, concerns and changes. Do tell your provider when you get sick, hurt, or get a cut that will not stop bleeding. Taking a new medication may change your INR. Please inform your provider of any medication changes. Your INR may change because of how much Vitamin K you eat. Your INR may change because of how much alcohol you drink. It is important to check your INR on a regular basis and keep your appointments. Knowing your INR number is the only way of knowing if you're taking the amount of warfarin that is correct for you. If you have any bleeding, trauma, falls and/or other medical concerns, call your doctor or seek medical attention right away. Results/Data Coumadin Printed in Appendix #1 below. *Diagnosis/Problems 1. LVAD (left ventricular assist device) present (V43.21) (Z95.811) Signatures Electronically signed by : Joleen Gilliam R.N.; Oct 03 2021 9:27AM EST (Author) Reviewed by : Ju Palacios APRN-JENNIFER; Oct 03 2021 3:02PM EST Appendix #1 Coumadin Patient: TERRY VILLALPANDO; : 1960; [id number] 09:[id number] 09:[id number] 10:[id number] 10:[id number] 09:20AM IO PT/INR PT + INR, Plasma PT/INR (POC) Recorded INR Coagulation Screen Current Dose New Dose Recheck in Patient Notified Comments IO [id number] PT, INR Target INR [id number] Normal Touchworks LVAD Flowsheeton 10-03-2021 LVAD Flowsheet 5.5 1 MG-Cardiol ogy-CM [facility] [address] [place] Work Phone: LVAD Flowsheet 9600 1 MG-Cardiol ogy-CM [facility] [address] [place] Work Phone: LVAD Flowsheet 4.7 1 MG-Cardiol ogy-CM [facility] [address] [place] Work Phone: LVAD Flowsheet 6.2 1 MG-Cardiol ogy-CM [facility] [address] [place] Work Phone: LVAD Flowsheet no alarms noted per patient YN-Urvgebnmqd-YO [facility] [address] [place] Work Phone: Office Visit (Cardiology)on 10-03-2021 Follow-up visit Diagnoses/Problems Assessed Anticoagulant long-term use (V58.61) (Z79.01) LVAD (left ventricular assist device) present (V43.21) (Z95.811) Systolic heart failure, ACC/AHA stage D (428.20) (I50.20) Nonischemic cardiomyopathy (425.4) (I42.8) Patient Instructions -Please bring a list of your medications to every visit. -If you have any questions or concerns, please contact the LVAD office at [phone], option 3 or the direct line at [phone]. Please state that you are an LVAD patient. If it is after hours and it is an emergency, please page the LVAD pager by calling [phone] #[phone]. -Follow up SaturdayDec 29 at 2pm with Ju Palacios. Chief Complaint TERRY VILLALPANDO is being seen for a 6 month follow-up of heart failure, mechanical circulatory support and a routine medication evaluation. He denies medication side effects. Adult Risk Screening There are no spiritual/cultural practices/values/need s that are important to know Initial Fall Risk Screening: TERRY has not fallen in the last 6 months. TERRY does not have a fear of falling. He does not need assistance with sitting, standing or walking. Does not need assistance walking in his home. He does not need assistance in an unfamiliar setting. The patient is not using an assistive device. Pain Scale: On a scale of 0 to 10, the patient rates the pain at 0. History of Present Illness Primary LVAD [employer] Worker: Dr. Lay Vaca Mr. Villalpando is a 61 y/o male with a PMHx sig for stage D systolic HF/NICM/HFrEF with severe LV dysfunction s/p ICD s/p HM II LVAD (08/2013 at [facility]; exchanged 07/[address] [facility] for pump thrombosis) with associated RV dysfunction, CKD, dyslipidemia, DM, pAF, and subclinical hypothyroidism who presents to the LVAD clinic for ongoing evaluation and management. He is co-managed by the team at [facility] (Dr Yi). Interval Hx: Patient had swelling in lower extremeties yesterday so took his PRN tyorsemide 20mg. Patient did not feel the need to take his torsemide today; his swelling has went down. and Patient denies CP, palpitations, dizziness, BLANC, orthopnea, PND, edema, LVAD alarms, N/V/D, hematochezia, hematuria, and epistaxis. Patient scheduled with oncology/hematology this for abnormal CBC. Driveline has clear drainage with small scab that is typical for patient. Driveline changed 09/25. Patient to email photo of site to LVAD email. The patient presents with non-ischemic heart failure with reduced ejection fraction. The patient's last LV ejection fraction was 10-15%. echo 08/24/2021. The patient is NYHA functional Class I. This is stage D heart failure. Symptoms: denies lower extremity edema, denies dyspnea on exertion, denies fatigue, denies exercise intolerance, denies orthopnea and denies paroxysmal nocturnal dyspnea. Associated symptoms include no chest pain, no syncope, no palpitations, no recent weight gain and no recent weight loss. Home Monitoring: The patient checks his weight sporadically. Weight control has been good. Medications: the patient is adherent with his medication regimen. He denies medication side effects. Disease Management: the patient is doing well with his heart failure goals. Active Problems Problems Acute kidney injury with acute tubular necrosis (584.5) (N17.0) Acute on chronic systolic congestive heart failure (428.23,428.0) (I50.23) Acute pancreatitis (577.0) (K85.90) Afib (427.31) (I48.91) Anemia (285.9) (D64.9) Anticoagulant long-term use (V58.61) (Z79.01) Aortic valve insufficiency, acquired (424.1) (I35.1) Chronic systolic heart failure (428.22) (I50.22) Congestive heart failure (428.0) (I50.9) COPD (chronic obstructive pulmonary disease) (496) (J44.9) Diabetes mellitus (250.00) (E11.9) Electrolyte and fluid disorder (276.9) (E87.8) Encounter for immunization (V03.89) (Z23) Encounter for monitoring digoxin therapy (V58.83,V58.69) (Z51.81,Z79.899) GERD (gastroesophageal reflux disease) (530.81) (K21.9) GI bleed (578.9) (K92.2) HLD (hyperlipidemia) (272.4) (E78.5) HTN (hypertension) (401.9) (I10) Hypovolemia (276.52) (E86.1) ICD (implantable cardioverter-defibril lator) in place (V45.02) (Z95.810) Left leg swelling (729.81) (M79.89) Left ventricular assist device (LVAD) complication, initial encounter (996.72) (T82.9XXA) LVAD (left ventricular assist device) present (V43.21) (Z95.811) Myocardial infarction (410.90) (I21.9) Nonischemic cardiomyopathy (425.4) (I42.8) Shingles (053.9) (B02.9) Shortness of breath (786.05) (R06.02) Sleep apnea (780.57) (G47.30) Systolic heart failure, ACC/AHA stage D (428.20) (I50.20) Thyroid disorder (246.9) (E07.9) Surgical History Problems History of Ventricular Assist Device Extracorporeal Implantation Past Medical History Problems History of Awaiting organ transplant (V49.83) (Z76.82) Resolved Date: 29 Aug 2017 History of Encounter for pre-transplant evaluation for heart transplant (V72.83) (Z01.818) Resol (more content not included)... Normal [facility] Touchworks Today's INRon 10-03-2021 Today's INR 2-3 MG-Cardiology -CM [facility] [address] [place] Work Phone: Today's INR AMS MG-Cardiology -CM [facility] [address] [place] Work Phone: CT LUNG CANCER SCREENINGon 0 09-29-2021 CT LUNG CANCER SCREENING EXAMINATION: CT LUNG CANCER SCREENING HISTORY: Nicotine dependence COMPARISON: No relevant comparison available. TECHNIQUE: Axial, Coronal, and Sagittal images were created without the administration of IV contrast material. Dose reduction techniques were achieved by using automated exposure control and/or adjustment of mA and/or kV according to patient size and/or use of iterative reconstruction technique. FINDINGS: LUNGS: Mild to moderate peribronchial thickening most significant in the left lower lobe. Peripheral intralobular septal thickening with an upper lobe predominance. Patchy infiltrates in the left lower lobe. Round atelectasis is suspected. A few punctate pulmonary nodules, nonspecific. PLEURA: No mass, effusion, or pneumothorax. VASCULATURE: No abnormality. KENDRA: No mass or pathologic adenopathy. MEDIASTINUM: Increased number of normal-sized lymph nodes. Median sternotomy wires. CARDIAC: Moderate cardiomegaly. Left ventricular assist device AORTA: No aneurysm or dissection. CHEST WALL: Left pacemaker BONES: No bone lesion or fracture. LIMITED ABDOMEN: No suspicious findings. Limited images of the upper abdomen. OTHER: Negative. IMPRESSION: Interstitial changes, atelectasis and peribronchial thickening Moderate cardiomegaly LUNG SCREENING: Lung-RADS Category 2- Benign Appearance or Behavior. Nodules with a very low likelihood of becoming a clinically active cancer due to size or lack of growth. 2. Continue annual screening with LDCT in 12 months. Electronically authenticated by: TORI GILL Date: 2021-09-29 07:58 Normal [facility] US SINGLE QUAD RT UPPERon US SINGLE QUAD RT UPPER EXAMINATION: US SINGLE QUAD RT UPPER HISTORY: Monoclonal gammopathy (clinical) COMPARISON: No relevant comparison available. FINDINGS: The liver is normal in size, contour and echotexture. No focal hepatic mass. Normal hepatopedal flow identified may portal vein with velocity of 21 cm/s. The gallbladder is surgically absent. The common bile duct measures 7.9 mm. The visualized pancreatic body is normal in appearance The right kidney is normal in appearance measuring 12.0 x 5.8 x 6.3 cm. No ascites IMPRESSION: No acute abnormality Electronically authenticated by: TORI GILL Date: 2021-09-26 17:00 Normal [facility] US SPLEENon 09-26-2021 US SPLEEN EXAMINATION: US SPLEEN HISTORY: Monoclonal gammopathy (clinical) COMPARISON: No relevant comparison available. FINDINGS: The spleen is normal in size, contour and echotexture with no focal mass. The spleen measures 14.0 x 5.0 x 12.0 cm with volume of 437 mL. IMPRESSION: Normal appearance of the spleen Electronically authenticated by: TORI GILL Date: 2021-09-26 17:01 Normal [facility] XR BONE SURVEYon 09-26-2021 XR BONE SURVEY EXAMINATION: XR BONE SURVEY HISTORY: Monoclonal gammopathy (clinical) COMPARISON: No relevant comparison available. TECHNIQUE: Two lateral projections of the skull. A lateral projection of the C-spine, T-spine and L-spine. Single view of the chest and pelvis. Single view of each humerus, forearm, femur, and tibia-fibula. FINDINGS: SKULL: No lytic lesion, periosteal reaction/thickening, fracture, or dislocation. C-SPINE: No lytic lesion, periosteal reaction/thickening, fracture, or dislocation. T-SPINE: No lytic lesion, periosteal reaction/thickening, fracture, or dislocation. L-SPINE: No lytic lesion, periosteal reaction/thickening, fracture, or dislocation. CHEST: No expansile lesion, lytic lesion, or fracture. Marked cardiomegaly. Left pacemaker. Ventricular assist device PELVIS: No lytic lesion, periosteal reaction/thickening, fracture, or dislocation. R HUMERUS: No lytic lesion, periosteal reaction/thickening, fracture, or dislocation. R FOREARM: No lytic lesion, periosteal reaction/thickening, fracture, or dislocation. L HUMERUS: No lytic lesion, periosteal reaction/thickening, fracture, or dislocation. L FOREARM: No lytic lesion, periosteal reaction/thickening, fracture, or dislocation. R FEMUR: No lytic lesion, periosteal reaction/thickening, fracture, or dislocation. R TIB/FIB: No lytic lesion, periosteal reaction/thickening, fracture, or dislocation. L FEMUR: No lytic lesion, periosteal reaction/thickening, fracture, or dislocation. L TIB/FIB: No lytic lesion, periosteal reaction/thickening, fracture, or dislocation. SOFT TISSUES: No swelling, nodules, visible mass, or radiopaque foreign body. IMPRESSION: No definite lytic lesion to suggest monoclonal gammopathy Electronically authenticated by: TORI GILL Date: 2021-09-26 09:56 Normal [facility] CBC W Auto Differential pane l (Bld)on 09-21-2021 Abs Immature Gran 0.03 k/uL <0.10 k/uL [facility] Basophils (Bld) [#/Vol] 0.07 10*3/uL <0.11 k/uL [facility] Basophils/100 WBC (Bld) 0.9 % [facility] Differential cell count method Nom (Bld) Auto [facility] Eosinophils (Bld) [#/Vol] 0.36 10*3/uL <0.46 k/uL [facility] Eosinophils/100 WBC (Bld) 4.9 % [facility] Erythrocyte distribution width (RBC) [Ratio] 18.3 % High 11.5 - 15.0 % [facility] Hematocrit (Bld) [Volume fraction] 46.9 % 39.0 - 51.0 % [facility] Hemoglobin (Bld) [Mass/Vol] 14.2 g/dL 13.0 - 17.0 g/dL [facility] Immature Gran % 0.4 % [facility] Lymphocytes (Bld) [#/Vol] 0.86 10*3/uL Low 1.00 - 4.00 k/uL [facility] Lymphocytes/100 WBC (Bld) 11.7 % [facility] MCH (RBC) [Entitic mass] 28.7 pg 26.0 - 34.0 pg [facility] MCHC (RBC) [Mass/Vol] 30.3 g/dL Low 30.5 - 36.0 g/dL [facility] MCV (RBC) [Entitic vol] 94.7 fL 80.0 - 100.0 fL [facility] Monocytes (Bld) [#/Vol] 0.76 10*3/uL <0.87 k/uL [facility] Monocytes/100 WBC (Bld) 10.3 % [facility] Neutrophils (Bld) [#/Vol] 5.29 10*3/uL 1.45 - 7.50 k/uL [facility] Neutrophils/100 WBC (Bld) 71.8 % [facility] Nucleated RBC (Bld) [#/Vol] 10*3/uL <0.01 k/uL [facility] Nucleated RBC/100 WBC (Bld) [Ratio] 0.0 /100 WBC [facility] Platelet mean volume (Bld) [Entitic vol] 11.7 fL 9.0 - 12.7 fL [facility] Platelets (Bld) [#/Vol] 144 10*3/uL Low 150 - 400 k/uL [facility] RBC (Bld) [#/Vol] 4.95 10*6/uL 4.20 - 6.0 0 m/uL [facility] WBC (Bld) [#/Vol] 7.37 10*3/uL 3.70 - 11. 00 k/uL [facility] Comprehensive metabolic 2000 panelon 09-21-2021 Albumin [Mass/Vol] 4.4 g/dL 3.9 - 4.9 g/dL [facility] ALP [Catalytic activity/Vol] 91 U/L 38 - 113 U/L [facility] ALT [Catalytic activity/Vol] 16 U/L 10 - 54 U/L [facility] Anion gap [Moles/Vol] 6 mmol/L Low 9 - 18 mmol/L [facility] AST [Catalytic activity/Vol] 23 U/L 14 - 40 U/L [facility] Bilirubin [Mass/Vol] 0.9 mg/dL 0.2 - 1 .3 mg/dL [facility] Calcium [Mass/Vol] 9.9 mg/dL 8.5 - 10. 2 mg/dL [facility] Chloride [Moles/Vol] 101 mmol/L 97 - 10 5 mmol/L [facility] CO2 [Moles/Vol] 28 mmol/L 22 - 30 mmol/L [facility] Creatinine [Mass/Vol] 1.14 mg/dL 0.73 - 1.22 mg/dL [facility] Estimated Glomerular Filtration Rate 74 mL/min/1.73m >=60 mL/min/1.73m [facility] Glucose [Mass/Vol] 146 mg/dL High 74 - 99 mg/dL [facility] Potassium [Moles/Vol] 4.5 mmol/L 3.7 - 5.1 mmol/L [facility] Protein [Mass/Vol] 8.5 g/dL High 6.3 - 8.0 g/dL [facility] Sodium [Moles/Vol] 135 mmol/L Low 136 - 144 mmol/L [facility] Urea nitrogen [Mass/Vol] 21 mg/dL 9 - 24 mg/dL [facility] LD LACTATE DEHYDROon 022 LDH [Catalytic activity/Vol] 533 U/L High 135 - 225 U/L [facility] RETIC COUNTon 09-21-2021 Reticulocytes (Bld) [#/Vol] 0.87062 10*3/uL High 0.018 - 0.100 M/uL [facility] Reticulocytes (Bld) [#/Vol]o n 09-21-2021 Reticulocytes/100 RBC (Bld) 2.7 % High 0.4 - 2.0 % [facility] Anticoagulation Monitoring S erviceon 09-12-2021 Anticoagulation Monitoring Service Today's INR [id number] IO INR2.2 Target INR range2-3 SourceAMS History of Present Illness Patient identification verified with 2 patient identifiers. Anticoagulation Monitoring Service: [facility]. Enrollment/Re-enrollm ent date: August 07, 2022. The patient is being seen as a follow-up for anticoagulation monitoring. Target INR 2-3. Monitoring practitioner Ju Palacios CNP. Date Warfarin Begun: 2016 INR monitoring is per [facility] protocol. PT MAY NOT GO LONGER THAN 2 WEEKS BETWEEN APPTS. The patient is on anticoagulation due to LVAD and NOTIFY LVAD COORDINATOR JENNIFER PALACIOS (PAGER #[phone]) FOR INR <1.8 OR >4. The patient is currently taking warfarin Tablet strength and color: 3 mg (Ugarte) Interval History: September 05, 2021. Previous INR was 3.5. ONE DOSE HELD THEN TWD MAINTAINED. Incoming total weekly dose 31.5 mg. Today's Clinic INR: [facility] INR 2.2. Since last visit, the patient reports no bleeding. Denies. The patient did not experience clinically relevant bleeding. Denies. The patient did not experience other minor bleeding. Denies. Since last visit, the patient has not experienced a thrombotic event. Denies. Denies. The patient reports a change in medication. The patient stopped or started OTC and/or herbal medication. He reports no change in alcohol consumption. Denies. He reports no change in Vitamin K consumption. Denies. The patient has taken Warfarin as directed. Took as directed. Management: The patient's INR is within target range. Will maintain dose. The patient is not currently being bridged. Next follow up appointment in 2 week(s). If therapeutic, ok to recheck INR in 2 weeks per LVAD protocol. Outgoing total weekly dose 31.5 mg. Patient instructed to call in interim with questions, concerns and changes. Patient educated on interactions between medications and warfarin. Patient educated on dietary consistency in vitamin k consumption. Patient educated on affects of alcohol consumption while taking warfarin. Patient educated on signs of bleeding/clotting. Patient educated on compliance with dosing, follow up appointments, and prescribed plan of care. Discussion/Summary You are currently taking Warfarin. Your tablet strength and color: 3 mg (Ugarte) Next Appointment: Saturday, September 25, 2021. Time: 11: 30 am. Location: [facility], , option 2. Your INR today is within range . You will continue to take your dose as instructed above. Maintain your dose as you were taking it. Visit information Please call in interim with questions, concerns and changes. Do tell your provider when you get sick, hurt, or get a cut that will not stop bleeding. Taking a new medication may change your INR. Please inform your provider of any medication changes. Your INR may change because of how much Vitamin K you eat. Your INR may change because of how much alcohol you drink. It is important to check your INR on a regular basis and keep your appointments. Knowing your INR number is the only way of knowing if you're taking the amount of warfarin that is correct for you. If you have any bleeding, trauma, falls and/or other medical concerns, call your doctor or seek medical attention right away. Results/Data Coumadin Printed in Appendix #1 below. *Diagnosis/Problems 1. LVAD (left ventricular assist device) present (V43.21) (Z95.811) Signatures Electronically signed by : Joleen Mendenhall R.N.; Sep 12 2021 9:58AM EST (Author) Appendix #1 Coumadin Patient: TERRY VILLALPANDO; : 1960; [id number] 09:[id number] 10:[id number] 10:[id number] 09:[id number] 07:59PM IO PT/INR PT + INR, Plasma PT/INR (POC) Recorded INR Coagulation Screen Current Dose New Dose Recheck in Patient Notified Comments IO INR2.23.52.82.8 PT, INR1.8 Target INR -51-26-32-3 Normal [facility] Today's INRon 09-12-2021 Today's INR 2-3 Anticoagulati on [facility] Work Phone: Today's INR AMS Anticoagulati on [facility] Work Phone: IMMUNOFIXATION (DANIEL), URINEo n 09-08-2021 DANIEL Interpretation:U Comment Abnormal [facility] Comment on above: Result Comment: Benc e Allan Protein positive; kappa type. Performed By: #### I MUNFXU #### [facility] [address] [place] [address] Dr. Sonya Mendoza IMMUNOFIXATION (DANIEL), SERUMo n 09-07-2021 IMMUNOFIXATION RESULT Comment Abnormal [facility] Comment on above: Result Comment: Immu nofixation shows IgA monoclonal protein with kappa light chain specificity. Immunofixation shows IgG monoclonal protein with kappa light chain specificity. . Please note that samples from patients receiving DARZALEX(R) (daratumumab) treatment can appear as an IgG kappa and mask a complete response. If this patient is receiving ROSS, this DANIEL assay interference can be removed by ordering test number [id number]- Immunofixation, Daratumumab-Specific, Serum and submitting a new sample for testing or by calling the lab to add this test to the current sample. Performed By: #### I NFLUAB #### [facility] [address] [address] [address] Sonya Mendoza Immunoglobulin A, Qn, Serum 935 mg/dL Critically high 90-386 [facility] Comment on above: Result Comment: Resu lts confirmed on dilution. Performed By: #### I NFLUAB #### [facility] [address] [address] [address] Sonya Mendoza Immunoglobulin G, Qn, Serum 1591 mg/dL Normal [id number] [facility] Comment on above: Performed By: #### I NFLUAB #### [facility] [address] [place] [address] Dr. Sonya Mendoza Immunoglobulin M, Qn, Serum 92 mg/dL Normal 20-172 [facility] Comment on above: Performed By: #### I NFLUAB #### [facility] [address] [place] [address] Dr. Sonya Mendoza CBC W MANUAL DIFFon 09-07-19 22 ATYPICAL LYMPH # Normal [facility] Comment on above: Performed By: #### P ERSMR, CBCMAN #### [facility] [address] [place] [address] Dr. Sonya Mendoza ATYPICAL LYMPH % Normal [facility] Comment on above: Performed By: #### P ERSMR, CBCMAN #### [facility] [address] [place] [address] Dr. Sonya Mendoza BAND # 0.0 103/ul Normal 0.0-0.3 [facility] Comment on above: Performed By: #### P ERSMR, CBCMAN #### [facility] [address] [place] [address] Dr. Sonya Mendoza BAND % 0 % Normal 0-5 [facility] Comment on above: Performed By: #### P ERSMR, CBCMAN #### [facility] [address] [place] [address] Dr. Sonya Mendoza BASOM # 0.12 103/ul Critically high 0.00-0.10 [facility] Comment on above: Performed By: #### P ERSMR, CBCMAN #### [facility] [address] [place] [address] Dr. Sonya Mendoza BASOM % 2.0 % Normal 0.2-2.0 [facility] Comment on above: Performed By: #### P ERSMR, CBCMAN #### [facility] [address] [place] [address] Dr. Sonya Mendoza BLAST # Normal [facility] Comment on above: Performed By: #### P ERSMR, CBCMAN #### [facility] [address] [address] [address] Sonya Mendoza BLAST % Normal [facility] Comment on above: Performed By: #### P ERSMR, CBCMAN #### [facility] [address] [address] [address] Sonya Mendoza CORRECTED WBC Normal 4.0-11.0 [facility] Comment on above: Performed By: #### P ERSMR CBCMAN #### [facility] [address] [address] [address] Sonya Mendoza EOS # 0.00 103/ul Normal 0.00-0.70 [facility] Comment on above: Performed By: #### P ERSMR CBCMAN #### [facility] [address] [address] [address] Sonya Mendoza EOS% 0.0 % Critically low 0.9-7.0 [facility] Comment on above: Performed By: #### P ERSMR CBCKANWAL #### [facility] [address] [address] [address] Sonya Mendoza HCT 48.8 % Normal 42.0-54.0 [facility] Comment on above: Performed By: #### P ERSMR CBCKANWAL #### [facility] [address] [address] [address] Sonya Mendoza HGB 14.7 g/dl Normal 14.0-18.0 [facility] Comment on above: Performed By: #### P ERSMR CBCMAN #### [facility] [address] [address] [address] Sonya Mendoza LYMPHM # 0.62 103/ul Critically low 1.20-3.80 [facility] Comment on above: Performed By: #### P ERSMR, CBCMAN #### [facility] [address] [address] [address] Sonya Mendoza LYMPHM% 10.0 % Critically low 20.5-60.0 [facility] Comment on above: Performed By: #### P ERSMR CBCMAN #### [facility] [address] [address] [address] Sonya Mendoza MCH 28.8 pg Normal 25.9-34.0 [facility] Comment on above: Performed By: #### P ERSMR, CBCMAN #### [facility] [address] [address] [address] Sonya Mendoza MCHC 30.1 g/dl Normal 29.9-35.2 [facility] Comment on above: Performed By: #### P ERSMR, CBCMAN #### [facility] [address] [address] [address] Sonya Mendoza MCV 95.7 fL Critically high 80.0-94.0 [facility] Comment on above: Performed By: #### P ERSMR, CBCMAN #### [facility] [address] [place] [address] Dr. Sonya Mendoza METAMYELOCYTE # Normal [facility] Comment on above: Performed By: #### P ERSMR, CBCMAN #### [facility] [address] [address] [address] Sonya Mendoza METAMYELOCYTE % Normal [facility] Comment on above: Performed By: #### P ERSMR, CBCMAN #### [facility] [address] [address] [address] Sonya Mendoza MONOM# 0.62 103/ul Normal 0.30-0.80 [facility] Comment on above: Performed By: #### P ERSMR, CBCMAN #### [facility] [address] [address] [address] Sonya Mendoza MONOM% 10.0 % Normal 1.7-12.0 [facility] Comment on above: Performed By: #### P ERSMR, CBCMAN #### [facility] [address] [address] [address] Sonya Mendoza MPV 12.3 fL Normal 9.5-13.5 [facility] Comment on above: Performed By: #### P ERSMR, CBCMAN #### [facility] [address] [address] [address] Sonya Mendzoa MYELOCYTE # Normal [facility] Comment on above: Performed By: #### P ERSMR, CBCMAN #### [facility] [address] [address] [address] Sonya Mendoza MYELOCYTE % Normal [facility] Comment on above: Performed By: #### P ERSMR, CBCMAN #### [facility] [address] [address] [address] Sonya Mendoza NRBC Normal [facility] Comment on above: Performed By: #### P ERSMR, CBCMAN #### [facility] [address] [address] [address] Sonya Mendoza PLT 110 103/ul Critically low 150-450 [facility] Comment on above: Performed By: #### P ERSMR, CBCMAN #### [facility] [address] [address] [address] Sonya Mendoza RBC 5.10 106/ul Normal 4.70-6.10 [facility] Comment on above: Result Comment: roul eux 3+ Performed By: #### P ERSMR, CBCMAN #### [facility] [address] [address] [address] Sonya Mendoza RDW 17.7 % Critically high 11.0-15.0 [facility] Comment on above: Performed By: #### P ERSMR, CBCMAN #### [facility] [address] [address] [address] Sonya eMndoza SEG # 4.84 103/ul Normal 1.40-6.50 [facility] Comment on above: Performed By: #### P ERSMR, CBCMAN #### [facility] [address] [address] [address] Sonya Mendoza SEG % 78.0 % Critically high 43.0-75.0 [facility] Comment on above: Performed By: #### P ERSMR, CBCMAN #### [facility] [address] [address] [address] Sonya Mendoza WBC 6.2 103/ul Normal 4.0-11.0 [facility] Comment on above: Performed By: #### P ERSMR, CBCMAN #### [facility] [address] [address] [address] Sonya Mendoza LDHon 09-06-2021 LDH 544 U/L Critically high 85-227 [facility] Comment on above: Performed By: #### L , LIVER #### [facility] [address] [place] [address] Dr. Sonya Mendoza LIVER PROFILEon 09-06-2021 Albumin [Mass/Vol] 4.0 g/dL Normal 3.4-5.0 [facility] Comment on above: Performed By: #### L , LIVER #### [facility] [address] [place] [address] Dr. Sonya Mendoza Albumin/Globulin [Mass ratio] 0.9 {ratio} Normal [facility] Comment on above: Performed By: #### L , LIVER #### [facility] [address] [place] [address] Dr. Sonya Mendoza ALP [Catalytic activity/Vol] 88 U/L Normal 46-116 [facility] Comment on above: Performed By: #### L , LIVER #### [facility] [address] [place] [address] Dr. Sonya Mendoza ALT [Catalytic activity/Vol] 20 U/L Normal 16-63 [facility] Comment on above: Performed By: #### L , LIVER #### [facility] [address] [place] [address] Dr. Sonya Mendoza AST [Catalytic activity/Vol] 19 U/L Normal 15-37 [facility] Comment on above: Performed By: #### L , LIVER #### [facility] [address] [place] [address] Dr. Sonya Mendoza BILI, CONJUGATED 0.4 mg/dL Critically high 0.0-0.2 [facility] Comment on above: Performed By: #### L , LIVER #### [facility] [address] [place] [address] Dr. Sonya Mendoza Bilirubin [Mass/Vol] 1.3 mg/dL Critically high 0.2-1.0 [facility] Comment on above: Performed By: #### L , LIVER #### [facility] [address] [place] [address] Dr. Sonya Mendoza Globulin (S) [Mass/Vol] 4.7 g/dL Normal [facility] Comment on above: Performed By: #### L DH, LIVER #### [facility] [address] [place] [address] Dr. Sonya Mendoza Protein [Mass/Vol] 8.7 g/dL Critically high 6.4-8.2 [facility] Comment on above: Performed By: #### L , LIVER #### [facility] [address] [place] [address] Dr. Sonya Mendoza PERIPHERAL SMEARon Pathologist Cyto stain Nom (Cvx/Vag) [ID] DR. JAMIE COTE [facility] Comment on above: Performed By: #### P ERSMR, CBCMAN #### [facility] [address] [place] [address] Dr. Sonya Mendoza VITAMIN D 25 OHon 09-06-2021 VIT D 25-OH 18.4 ng/mL Normal [facility] Comment on above: Performed By: #### F T4, PSAD #### [facility] [address] [place] [address] Dr. Sonya Mendoza VIT D RANGES SEE BELOW [facility] Comment on above: Result Comment: <20 ng/mL Vit D deficient 20 - <30 ng/mL Vit D insufficient 30 - 100 ng/mL Vit D sufficient >100 ng/mL Potential Toxicity Performed By: #### F T4, PSAD #### [facility] [address] [place] [address] Dr. Sonya Mendoza Anticoagulation Monitoring S erviceon 09-05-2021 Anticoagulation Monitoring Service Today's INR [id number] IO INR3.5 Target INR range2-3 SourceAMS History of Present Illness Patient identification verified with 2 patient identifiers. Anticoagulation Monitoring Service: [facility]. Enrollment/Re-enrollm ent date: August 07, 2022. The patient is being seen as a follow-up for anticoagulation monitoring. Target INR 2-3. Monitoring practitioner Ju Palacios CNP. Date Warfarin Begun: 2016 INR monitoring is per [facility] protocol. PT MAY NOT GO LONGER THAN 2 WEEKS BETWEEN APPTS. The patient is on anticoagulation due to LVAD and NOTIFY LVAD COORDINATOR JENNIFER PALACIOS (PAGER #[phone]) FOR INR <1.8 OR >4. The patient is currently taking warfarin Tablet strength and color: 3 mg (Ugarte) Interval History: August 29, 2021. Previous INR was 2.8. Dose maintained. Incoming total weekly dose 31.5 mg. Today's Clinic INR: [facility] INR 3.5. Since last visit, the patient reports no bleeding. Denies. The patient did not experience clinically relevant bleeding. Denies. The patient did not experience other minor bleeding. Denies. Since last visit, the patient has not experienced a thrombotic event. Denies. Denies. The patient reports a change in medication. The patient stopped or started OTC and/or herbal medication. Pt was taking an OTC cough and cold medication x 2-3 days. Approx. 1 week ago Pt's Levothyroxine was lowered. He reports no change in alcohol consumption. Denies. He reports no change in Vitamin K consumption. Denies. The patient has taken Warfarin as directed. Took as directed. Management: The patient's INR is supratherapeutic. Hold 1 dose. 09/05/21. Will maintain current dose. Ju Palacios CNP and LVAD team notified of INR from today. Instructed to follow protocol orders. The patient is not currently being bridged. Next follow up appointment in 1 week(s). If therapeutic, ok to recheck INR in 2 weeks per LVAD protocol. Outgoing total weekly dose 31.5 mg. Patient instructed to call in interim with questions, concerns and changes. Patient educated on interactions between medications and warfarin. Patient educated on dietary consistency in vitamin k consumption. Patient educated on affects of alcohol consumption while taking warfarin. Patient educated on signs of bleeding/clotting. Patient educated on compliance with dosing, follow up appointments, and prescribed plan of care. PT SIGNED PST FORM TODAY 08/24; WILL SEND FORM TO DEVIN LAZARO. Discussion/Summary You are currently taking Warfarin. Your tablet strength and color: 3 mg (Ugarte) Next Appointment: Sunday, September 12, 2021. Time: 9: 30 am. Location: [facility], . Your INR today is higher than your target range, you may be at risk for bleeding. Please hold Coumadin/Warfarin dose(s) for 1 day(s). Maintain your dose as you were taking it. Visit information Please call in interim with questions, concerns and changes. Do tell your provider when you get sick, hurt, or get a cut that will not stop bleeding. Taking a new medication may change your INR. Please inform your provider of any medication changes. Your INR may change because of how much Vitamin K you eat. Your INR may change because of how much alcohol you drink. It is important to check your INR on a regular basis and keep your appointments. Knowing your INR number is the only way of knowing if you're taking the amount of warfarin that is correct for you. If you have any bleeding, trauma, falls and/or other medical concerns, call your doctor or seek medical attention right away. Results/Data Coumadin Printed in Appendix #1 below. *Diagnosis/Problems 1. Afib (427.31) (I48.91) 2. LVAD (left ventricular assist device) present (V43.21) (Z95.811) Signatures Electronically signed by : Efrain Castaneda R.N.; Sep 05 2021 10:53AM EST (Author) Reviewed by : LUBNA Loera; Sep 07 2021 7:24AM EST Appendix #1 Coumadin Patient: TERRY VILLALPANDO; : 1960; [id number] 10:[id number] 10:[id number] 09:[id number] 07:[id number] 06:57PM IO PT/INR PT + INR, Plasma PT/INR (POC) Recorded INR Coagulation Screen Current Dose New Dose Recheck in Patient Notified Comments IO INR3.52.82.8 PT, INR1.8 1.5 Target INR [id number] Normal Touchworks Today's INRon 09-05-2021 Today's INR AMS Anticoagulati on Monitoring Service[facility] Work Phone: Today's INR 2-3 Anticoagulati on Monitoring [facility] Work Phone: Anticoagulation Monitoring S erviceon 08-29-2021 Anticoagulation Monitoring Service Today's INR [id number] IO INR2.8 Target INR range2-3 SourceAMS History of Present Illness Patient identification verified with 2 patient identifiers. Anticoagulation Monitoring Service: [facility]. Enrollment/Re-enrollm ent date: August 07, 2022. The patient is being seen as a follow-up for anticoagulation monitoring. Target INR 2-3. Monitoring practitioner JENNIFER PALACIOS. Date Warfarin Begun: 2016 INR monitoring is per [facility] protocol. PT MAY NOT GO LONGER THAN 2 WEEKS BETWEEN APPTS. The patient is on anticoagulation due to LVAD and NOTIFY LVAD COORDINATOR JENNIFER PALACIOS (PAGER #[phone]) FOR INR <1.8 OR >4. The patient is currently taking warfarin Tablet strength and color: 3 mg (Ugarte) Interval History: August 24, 2021. Previous INR was 2.8. Dose maintained. Incoming total weekly dose 31.5 mg. Today's Clinic INR: AMS INR 2.8. Since last visit, the patient reports no bleeding. The patient did not experience clinically relevant bleeding. The patient did not experience other minor bleeding. Since last visit, the patient has not experienced a thrombotic event. The patient reports no change in medication. He reports no change in alcohol consumption. He reports no change in Vitamin K consumption. The patient has taken Warfarin as directed. Management: The patient's INR is within target range. Will maintain dose. The patient is not currently being bridged. Next follow up appointment in 1 week(s). If therapeutic, ok to recheck INR in 2 weeks per LVAD protocol. Outgoing total weekly dose 31.5 mg. Patient instructed to call in interim with questions, concerns and changes. Patient educated on interactions between medications and warfarin. Patient educated on dietary consistency in vitamin k consumption. Patient educated on affects of alcohol consumption while taking warfarin. Patient educated on signs of bleeding/clotting. Patient educated on compliance with dosing, follow up appointments, and prescribed plan of care. PT SIGNED PST FORM TODAY 08/24; WILL SEND FORM TO DEVIN LAZARO. Discussion/Summary You are currently taking Warfarin. Your tablet strength and color: 3 mg (Ugarte) Next Appointment: Sunday, September 05, 2021. Time: 10: 30 am. Location: [facility], . Your INR today is within range . You will continue to take your dose as instructed above. Visit information Please call in interim with questions, concerns and changes. Do tell your provider when you get sick, hurt, or get a cut that will not stop bleeding. Taking a new medication may change your INR. Please inform your provider of any medication changes. Your INR may change because of how much Vitamin K you eat. Your INR may change because of how much alcohol you drink. It is important to check your INR on a regular basis and keep your appointments. Knowing your INR number is the only way of knowing if you're taking the amount of warfarin that is correct for you. If you have any bleeding, trauma, falls and/or other medical concerns, call your doctor or seek medical attention right away. Results/Data Coumadin Printed in Appendix #1 below. *Diagnosis/Problems 1. LVAD (left ventricular assist device) present (V43.21) (Z95.811) Signatures Electronically signed by : Joleen Gilliam R.N.; Aug 29 2021 10:28AM EST (Author) Reviewed by : Ju Palacios APRN-JENNIFER; Aug 29 2021 10:59AM EST Appendix #1 Coumadin Patient: YUVAL TERRY D.; : 1960; [id number] 09:[id number] 07:[id number] 06:[id number] 07:33PM IO PT/INR PT + INR, Plasma PT/INR (POC) Recorded INR Coagulation Screen Current Dose New Dose Recheck in Patient Notified Comments IO INR2.82.8 PT, INR1.8 1.5 1.6 Target INR range2-32-3 Normal Touchworks Today's INRon 08-29-2021 Today's INR 2-3 Anticoagulati on Monitoring [employer] Work Phone: Today's INR AMS Anticoagulati on Monitoring [employer] Work Phone: Anticoagulation Monitoring S erviceon 08-24-2021 Anticoagulation Monitoring Service Today's INR [id number] IO INR2.8 Target INR range2-3 SourceAMS History of Present Illness Patient identification verified with 2 patient identifiers. Anticoagulation Monitoring Service: [facility]. Enrollment/Re-enrollm ent date: August 07, 2022. The patient is being seen as a new patient for anticoagulation monitoring. [place] today [place] [facility] [place]. Pt was referred by JENNIFER Palacios with dx of LVAD. Patient contract form completed. Past medical history includes: afib, AI, CHF, COPD, DM, HLD, HTN, CT, RENU. Current meds reviewed and are listed in EMR. Educational information discussed including: indication, potential drug interactions (including ASA and ibuprofen), dietary considerations, effects of alcohol, changes in general health to report, compliance with f/u, dosing (including missed doses), signs of bleeding/clotting to report, and to seek medical attention if illness or injury occurs. [facility] voicemail number given to pt. Take home material provided. Pt verbalized understanding. PT HAS BEEN ON WARFARIN SINCE AT LEAST 2016 AND IS NOW ESTABLISHING CARE WITH [facility]. Target INR 2-3. Monitoring practitioner JENNIFER PALACIOS. Date Warfarin Begun: 2016 INR monitoring is per [facility] protocol. PT MAY NOT GO LONGER THAN 2 WEEKS BETWEEN APPTS. The patient is on anticoagulation due to LVAD and NOTIFY LVAD COORDINATOR JENNIFER PALACIOS (PAGER #[phone]) FOR INR <1.8 OR >4. The patient is currently taking warfarin Tablet strength and color: 3 mg (Ugarte) Interval History: Incoming total weekly dose 31.5 mg. Today's Clinic INR: [facility] INR 2.8. Since last visit, the patient reports no bleeding. The patient did not experience clinically relevant bleeding. The patient did not experience other minor bleeding. Since last visit, the patient has not experienced a thrombotic event. The patient reports no change in medication. He reports no change in alcohol consumption. He reports no change in Vitamin K consumption. The patient has taken Warfarin as directed. Management: The patient's INR is within target range. Will maintain dose. The patient is not currently being bridged. Next follow up appointment in 3-5 day(s). PT REQUESTS SUBSEQUENT APPTS TO BE AT [facility] LOCATION. Outgoing total weekly dose 31.5 mg. Patient instructed to call in interim with questions, concerns and changes. Patient educated on interactions between medications and warfarin. Patient educated on dietary consistency in vitamin k consumption. Patient educated on affects of alcohol consumption while taking warfarin. Patient educated on signs of bleeding/clotting. Patient educated on compliance with dosing, follow up appointments, and prescribed plan of care. PT SIGNED PST FORM TODAY 08/24; WILL SEND FORM TO DEVIN LAZARO. Discussion/Summary You are currently taking Warfarin. Your tablet strength and color: 3 mg (Ugarte) Next Appointment: August 29, 2021. Time: 10: 15 am. Location: [facility], . Your INR today is within range . You will continue to take your dose as instructed above. Visit information Please call in interim with questions, concerns and changes. Do tell your provider when you get sick, hurt, or get a cut that will not stop bleeding. Taking a new medication may change your INR. Please inform your provider of any medication changes. Your INR may change because of how much Vitamin K you eat. Your INR may change because of how much alcohol you drink. It is important to check your INR on a regular basis and keep your appointments. Knowing your INR number is the only way of knowing if you're taking the amount of warfarin that is correct for you. If you have any bleeding, trauma, falls and/or other medical concerns, call your doctor or seek medical attention right away. Results/Data Coumadin Printed in Appendix #1 below. *Diagnosis/Problems 1. LVAD (left ventricular assist device) present (V43.21) (Z95.811) Signatures Electronically signed by : Margy Ho R.N.; Aug 24 2021 9:39AM EST (Author) Reviewed by : LUBNA Loera; Aug 25 2021 5:58PM EST Appendix #1 Coumadin Patient: TERRY VILLALPANDO; : 1960; [id number] 09:[id number] 07:[id number] 06:[id number] 07:[id number] 09:54PM IO PT/INR PT + INR, Plasma PT/INR (POC) Recorded INR Coagulation Screen Current Dose New Dose Recheck in Patient Notified Comments IO INR2.8 PT, INR1.8 1.5 1.6 1.9 Target INR range2-3 Normal [facility] Touchworks Today's INRon 08-24-2021 Today's INR 2-3 Anticoagulati [facility] [place] Work Phone: Today's INR AMS Anticoagulati on [facility] [place] Work Phone: LVAD Flowsheeton 04-05-2021 LVAD Flowsheet 9600 1 MG-Cardiol ogy-[facility] 46[address] Work Phone: LVAD Flowsheet 6.2 1 MG-Cardiol ogy-[facility] 46[address] Work Phone: LVAD Flowsheet 4.4 1 MG-Cardiol ogy-[facility] 46[address] Work Phone: LVAD Flowsheet 6.6 1 MG-Cardiol ogy-[facility] 46[address] Work Phone: LVAD Flowsheet no active alarms MG-C ardiology-[facility] 4600 Work Phone: Laboratory - Chemistry and C hemistry - challengeon 03-27-2021 Glucose [Mass/Vol] 181 mg/dL above high threshold 74 - 99 MZ-Kdieisbpdr-UR [facility] [address] [place] Work Phone: Glucose [Mass/Vol] 132 mg/dL above high threshold 74 - 99 JN-Nkqqylgwfb-EX [facility] [address] DO Work Phone: Laboratory - Chemistry and C hemistry - challengeon 03-26-2021 Glucose [Mass/Vol] 137 mg/dL above high threshold 74 - 99 GE-Zarzelpggo-PT [facility] [address] DO Work Phone: Albumin BCP dye [Mass/Vol] 4.0 g/dL 3.4 - 5.0 DQ-Nsruwjgofj-TN [facility] [address] DO Work Phone: ALP [Catalytic activity/Vol] 65 U/L 33 - 120 PQ-Ojrnfcittf-SE [facility] [address] DO Work Phone: ALT With P-5'-P [Catalytic activity/Vol] 9 U/L below low threshold 10 - 52 WH-Rtmarmaspj-IL [facility] [address] DO Work Phone: Comment on above: Patients treated wit h Sulfasalazine may generate falsely decreased results for ALT. Anion gap [Moles/Vol] 11 mmol/L 10 - 20 MG- Cardiology-CM [facility] [address] DO Work Phone: AST With P-5'-P [Catalytic activity/Vol] 16 U/L 9 - 39 CY-Wuzprizpyz-ND [facility] [address] [place] Work Phone: Bilirubin [Mass/Vol] 0.8 mg/dL 0.0 - 1.2 MG-C ardiology-CM [facility] [address] [place] Work Phone: Calcium [Mass/Vol] 8.8 mg/dL 8.6 - 10.6 MG-Car diology-CM [facility] [address] [place] Work Phone: Chloride [Moles/Vol] 105 mmol/L 98 - 107 MG-C ardiology-CM [facility] [address] DO Work Phone: CO2 [Moles/Vol] 22 mmol/L 21 - 32 MG-Cardio logy-CM [facility] [address] DO Work Phone: Creatinine [Mass/Vol] 1.04 mg/dL See Below MG- Cardiology-CM [facility] [address] DO Work Phone: Comment on above: Reference Range: 0.5 0 - 1.30 Glucose [Mass/Vol] 108 mg/dL above high threshold 74 - 99 NX-Hhfeuwvmpp-YJ [facility] [address] DO Work Phone: LDH [Catalytic activity/Vol] 260 U/L above high threshold 84 - 246 UF-Nbwxindcfw-BN [facility] [address] DO Work Phone: Potassium [Moles/Vol] 4.3 mmol/L 3.5 - 5.3 MG- Cardiology-CM [facility] [address] DO Work Phone: Protein [Mass/Vol] 6.6 g/dL 6.4 - 8.2 MG-Car diology-CM [facility] [address] DO Work Phone: Sodium [Moles/Vol] 134 mmol/L below low threshold 136 - 145 BM-Fjkszwnmzj-EV [facility] [address] DO Work Phone: Urea nitrogen [Mass/Vol] 19 mg/dL 6 - 23 FD-Opofqjxmpf-BX [facility] [address] DO Work Phone: Glucose [Mass/Vol] 96 mg/dL 74 - 99 MG-Car diology-CM [facility] [address] DO Work Phone: Glucose [Mass/Vol] 169 mg/dL above high threshold 74 - 99 ND-Fybugjuenc-GM [facility] [address] DO Work Phone: Glucose [Mass/Vol] 110 mg/dL above high threshold 74 - 99 NB-Fovliiamtt-HF [facility] [address] DO Work Phone: Laboratory - Coagulationon 1 05-27-2020 aPTT Coag (PPP) [Time] 33 s 26 - 39 XE-Xexrkxjshn-GJ [facility] [address] DO Work Phone: Comment on above: Note new reference r alexsandra as of 03/21/2021 at 10:00am. INR Coag (PPP) [Relative time] 1.8 {INR} above high threshold 0.9 - 1.1 XK-Hsvehackkx-IE [facility] [address] DO Work Phone: PT Coag (PPP) [Time] 20.9 s above high threshold 9.8 - 13.4 BI-Vjyostlauk-RO [facility] [address] DO Work Phone: Comment on above: Note new reference r alexsandra as of 03/21/2021 at 10:00am. Laboratory - Hematology and Cell countson 03-26-2021 Erythrocyte distribution width (RBC) [Ratio] 19.5 % above high threshold See Below UA-Nbzosuderx-FB [facility] [address] DO Work Phone: Comment on above: Reference Range: 11. 5 - 14.5 Hematocrit (Bld) [Volume fraction] 31.0 % below low threshold See Below QY-Yspqslsrql-II [facility] [address] DO Work Phone: Comment on above: Reference Range: 41. 0 - 52.0 Hemoglobin (Bld) [Mass/Vol] 8.7 g/dL below low threshold See Below BH-Pdegduymjy-OA [facility] [address] DO Work Phone: Comment on above: Reference Range: 13. 5 - 17.5 MCHC (RBC) [Mass/Vol] 28.1 g/dL below low threshold See Below WH-Qhjzhtjlwj-DZ [facility] [address] DO Work Phone: Comment on above: Reference Range: 32. 0 - 36.0 MCV (RBC) [Entitic vol] 88 fL 80 - 100 TZ-Arfzvcalho-LH [facility] [address] DO Work Phone: Platelets (Bld) [#/Vol] 179 10*3/uL 150 - 450 PB-Pdozjrnwrk-TV [facility] [address] DO Work Phone: RBC (Bld) [#/Vol] 3.53 {x10E12/L} below low threshold See Below KL-Jtkdnhzxmf-FV [facility] [address] DO Work Phone: Comment on above: Reference Range: 4.5 0 - 5.90 WBC (Bld) [#/Vol] 6.6 10*3/uL 4.4 - 11.3 MG-Car diology-CM [facility] [address] DO Work Phone: Magnesium, Serumon Magnesium [Mass/Vol] 2.07 mg/dL See Below MG-C ardiology-CM [facility] [address] DO Work Phone: Comment on above: Reference Range: 1.6 0 - 2.40 No Panel Informationon 03-26 >60 >60 MG-Cardiology- CM [facility] [address] DO Work Phone: Comment on above: CALCULATIONS OF ERICA MATED GFR ARE PERFORMED USING THE MDRD STUDY EQUATION FOR THE IDMS-TRACEABLE CREATININE METHODS. CLIN CHEM 2007;53:766-72 1.1 {/100_WBC} 0.0-0.0 MG-Cardiol ogy-CM [facility] [address] DO Work Phone: Folate, Serumon 03-25-2021 Folate [Mass/Vol] 13.5 ng/mL >5.0 MG-Card iology-CM [facility] [address] DO Work Phone: Comment on above: Low <3.4Borderline 3 .4-5.0Normal >5.0. Biotin interference may cause falsely elevated results. Patients taking a Biotin dose of up to 5 mg/day should refrain from taking Biotin for 24 hours before sample collection. Providers may contact their local laboratory for further information. Laboratory - Blood bankon Direct antiglobulin test.poly specific reagent post transfusion reaction Ql (RBC) Negative NR-Pvuikcmpli-QK [facility] [address] DO Work Phone: Direct antiglobulin test.poly specific reagent post transfusion reaction Ql (RBC) Negative JI-Ruqgmagzko-UI [facility] [address] DO Work Phone: Laboratory - Chemistry and C hemistry - challengeon 03-25-2021 Glucose [Mass/Vol] 128 mg/dL above high threshold 74 - 99 YO-Nocjqihbrs-XS [facility] [address] DO Work Phone: Albumin BCP dye [Mass/Vol] 4.1 g/dL 3.4 - 5.0 BQ-Ncdfaimqsd-DT [facility] [address] DO Work Phone: ALP [Catalytic activity/Vol] 63 U/L 33 - 120 OD-Qsivtzkmct-KH [facility] [address] DO Work Phone: ALT With P-5'-P [Catalytic activity/Vol] 7 U/L below low threshold 10 - 52 EY-Hamnvvuanh-TS [facility] [address] DO Work Phone: Comment on above: Patients treated wit h Sulfasalazine may generate falsely decreased results for ALT. Anion gap [Moles/Vol] 13 mmol/L 10 - 20 MG- Cardiology-CM [facility] [address] DO Work Phone: AST With P-5'-P [Catalytic activity/Vol] 14 U/L 9 - 39 UU-Iodzsyjaab-WO [facility] [address] DO Work Phone: Bilirubin [Mass/Vol] 0.9 mg/dL 0.0 - 1.2 MG-C ardiology-CM [facility] [address] DO Work Phone: Calcium [Mass/Vol] 8.6 mg/dL 8.6 - 10.6 MG-Car diology-CM [facility] [address] DO Work Phone: Chloride [Moles/Vol] 105 mmol/L 98 - 107 MG-C ardiology-CM [facility] [address] DO Work Phone: CO2 [Moles/Vol] 23 mmol/L 21 - 32 MG-Cardio logy-CM [facility] [address] DO Work Phone: Creatinine [Mass/Vol] 1.09 mg/dL See Below MG- Cardiology-CM [facility] [address] DO Work Phone: Comment on above: Reference Range: 0.5 0 - 1.30 Glucose [Mass/Vol] 110 mg/dL above high threshold 74 - 99 KJ-Miypiljqgm-QF [facility] [address] DO Work Phone: LDH [Catalytic activity/Vol] 269 U/L above high threshold 84 - 246 GE-Juyzxcsvgg-GW [facility] [address] DO Work Phone: Potassium [Moles/Vol] 4.4 mmol/L 3.5 - 5.3 MG- Cardiology-CM [facility] [address] DO Work Phone: Protein [Mass/Vol] 6.7 g/dL 6.4 - 8.2 MG-Car diology-CM [facility] [address] DO Work Phone: Sodium [Moles/Vol] 137 mmol/L 136 - 145 MG-Car diology-CM [facility] [address] DO Work Phone: Urea nitrogen [Mass/Vol] 22 mg/dL 6 - 23 AJ-Hvlgmfsnte-DF [facility] [address] DO Work Phone: Glucose [Mass/Vol] 163 mg/dL above high threshold 74 - 99 GM-Smpnrnylkn-YC [facility] [address] DO Work Phone: Glucose [Mass/Vol] 160 mg/dL above high threshold 74 - 99 DJ-Nmvnqjesfy-TV [facility] [address] DO Work Phone: Glucose [Mass/Vol] 190 mg/dL above high threshold 74 - 99 QW-Ehdqrafmtn-NV [facility] [address] DO Work Phone: Laboratory - Coagulationon 1 05-26-2020 aPTT Coag (PPP) [Time] 30 s 26 - 39 FF-Cpfoehjmyc-SL [facility] [address] DO Work Phone: Comment on above: Note new reference r alexsandra as of 03/21/2021 at 10:00am. INR Coag (PPP) [Relative time] 1.5 {INR} above high threshold 0.9 - 1.1 PJ-Fwgbblzwkl-AA [facility] [address] DO Work Phone: PT Coag (PPP) [Time] 17.7 s above high threshold 9.8 - 13.4 NN-Qxvicapgkr-VX [facility] [address] DO Work Phone: Comment on above: Note new reference r alexsandra as of 03/21/2021 at 10:00am. Laboratory - Hematology and Cell countson 03-25-2021 Erythrocyte distribution width (RBC) [Ratio] 18.7 % above high threshold See Below DF-Rfwywnnhrg-SL [facility] [address] DO Work Phone: Comment on above: Reference Range: 11. 5 - 14.5 Hematocrit (Bld) [Volume fraction] 30.0 % below low threshold See Below IA-Bgpmwdqjll-FE [facility] [address] DO Work Phone: Comment on above: Reference Range: 41. 0 - 52.0 Hemoglobin (Bld) [Mass/Vol] 8.9 g/dL below low threshold See Below EP-Yrfxfzlxrr-TR [facility] [address] DO Work Phone: Comment on above: Reference Range: 13. 5 - 17.5 MCHC (RBC) [Mass/Vol] 29.7 g/dL below low threshold See Below ZK-Mpallgyeyg-SY [facility] [address] DO Work Phone: Comment on above: Reference Range: 32. 0 - 36.0 MCV (RBC) [Entitic vol] 85 fL 80 - 100 XQ-Evzthzallx-TM [facility] [address] DO Work Phone: Platelets (Bld) [#/Vol] 179 10*3/uL 150 - 450 SQ-Vgykmwjalp-PL [facility] [address] DO Work Phone: RBC (Bld) [#/Vol] 3.53 {x10E12/L} below low threshold See Below JZ-Gyjonkskpj-FN [facility] [address] DO Work Phone: Comment on above: Reference Range: 4.5 0 - 5.90 WBC (Bld) [#/Vol] 5.9 10*3/uL 4.4 - 11.3 MG-Car diology-CM [facility] [address] DO Work Phone: Magnesium, Serumon Magnesium [Mass/Vol] 2.15 mg/dL See Below MG-C ardiology-CM [facility] [address] DO Work Phone: Comment on above: Reference Range: 1.6 0 - 2.40 Methylmalonic Acid, Serumon 03-25-2021 Methylmalonate [Moles/Vol] 203 nmol/L 0-378 FE-Wmvhkuoulu-QO [facility] [address] [place] Work Phone: Comment on above: This test was develo ped and its performance characteristicsdetermined by [employer]. It has not been cleared or approvedby the Food and Drug Administration. No Panel Informationon 03-25 0.5 {/100_WBC} 0.0-0.0 MG-Cardiol ogy-CM [facility] [address] DO Work Phone: >60 >60 MG-Cardiology- CM [facility] [address] DO Work Phone: Comment on above: CALCULATIONS OF ERICA MATED GFR ARE PERFORMED USING THE MDRD STUDY EQUATION FOR THE IDMS-TRACEABLE CREATININE METHODS. CLIN CHEM 2007;53:766-72 Laboratory - Chemistry and C hemistry - challengeon 03-24-2021 Glucose [Mass/Vol] 163 mg/dL above high threshold 74 - 99 HA-Veihzrkgso-MW [facility] [address] DO Work Phone: Albumin BCP dye [Mass/Vol] 4.0 g/dL 3.4 - 5.0 OG-Iqmnxyoxkz-KC [facility] [address] DO Work Phone: ALP [Catalytic activity/Vol] 66 U/L 33 - 120 BE-Vmulxqcybq-ZG [facility] [address] DO Work Phone: ALT With P-5'-P [Catalytic activity/Vol] 7 U/L below low threshold 10 - 52 YL-Aqbhgllgsu-CU [facility] [address] DO Work Phone: Comment on above: Patients treated wit h Sulfasalazine may generate falsely decreased results for ALT. Anion gap [Moles/Vol] 13 mmol/L 10 - 20 MG- Cardiology-CM [facility] [address] DO Work Phone: AST With P-5'-P [Catalytic activity/Vol] 13 U/L 9 - 39 EX-Rhxywtqimd-HE [facility] [address] DO Work Phone: Bilirubin [Mass/Vol] 1.0 mg/dL 0.0 - 1.2 MG-C ardiology-CM [facility] [address] DO Work Phone: Calcium [Mass/Vol] 8.7 mg/dL 8.6 - 10.6 MG-Car diology-CM [facility] [address] DO Work Phone: Chloride [Moles/Vol] 103 mmol/L 98 - 107 MG-C ardiology-CM [facility] DO Work Phone: CO2 [Moles/Vol] 23 mmol/L 21 - 32 MG-Cardio logy-CM [facility] DO Work Phone: Creatinine [Mass/Vol] 1.26 mg/dL See Below MG- Cardiology-CM [facility] DO Work Phone: Comment on above: Reference Range: 0.5 0 - 1.30 Glucose [Mass/Vol] 148 mg/dL above high threshold 74 - 99 TS-Khhxnteiev-GV [facility] DO Work Phone: LDH [Catalytic activity/Vol] 260 U/L above high threshold 84 - 246 RC-Lmhgxrpedp-NF [facility] DO Work Phone: Potassium [Moles/Vol] 4.2 mmol/L 3.5 - 5.3 MG- Cardiology-CM [facility] DO Work Phone: Protein [Mass/Vol] 6.8 g/dL 6.4 - 8.2 MG-Car diology-CM [facility] DO Work Phone: Sodium [Moles/Vol] 135 mmol/L below low threshold 136 - 145 KS-Gvywbacekg-GZ [facility] DO Work Phone: Urea nitrogen [Mass/Vol] 26 mg/dL above high threshold 6 - 23 UD-Ymchlstzfc-OD [facility] DO Work Phone: Glucose [Mass/Vol] 140 mg/dL above high threshold 74 - 99 IK-Eonpctwkhp-XL [facility] DO Work Phone: Glucose [Mass/Vol] 125 mg/dL above high threshold 74 - 99 PT-Lgzywmlljh-IG [facility] DO Work Phone: Laboratory - Coagulationon 1 05-25-2020 aPTT Coag (PPP) [Time] 31 s 26 - 39 OL-Ybeqcidmiw-IJ [facility] DO Work Phone: Comment on above: Note new reference r alexsandra as of 03/21/2021 at 10:00am. INR Coag (PPP) [Relative time] 1.6 {INR} above high threshold 0.9 - 1.1 JD-Xvnojmnehx-RU [facility] [address] DO Work Phone: PT Coag (PPP) [Time] 18.3 s above high threshold 9.8 - 13.4 WI-Ibioicelhp-OZ [facility] [address] DO Work Phone: Comment on above: Note new reference r alexsandra as of 03/21/2021 at 10:00am. Laboratory - Hematology and Cell countson 03-24-2021 Basophils/100 WBC (Bld) 0.0 % 0.0 - 2.0 KX-Smjwevyrsz-OU [facility] [address] DO Work Phone: Erythrocyte distribution width (RBC) [Ratio] 18.8 % above high threshold See Below OX-Eftyexdgfh-XW [facility] [address] DO Work Phone: Comment on above: Reference Range: 11. 5 - 14.5 Hematocrit (Bld) [Volume fraction] 30.2 % below low threshold See Below PT-Rbcfgzhigv-ST [facility] [address] DO Work Phone: Comment on above: Reference Range: 41. 0 - 52.0 Hemoglobin (Bld) [Mass/Vol] 8.8 g/dL below low threshold See Below CD-Mclemdofyt-WU [facility] [address] DO Work Phone: Comment on above: Reference Range: 13. 5 - 17.5 Lymphocytes/100 WBC (Bld) 12.0 % See Below QM-Ifbxreqpbw-NI [facility] [address] DO Work Phone: Comment on above: Reference Range: 13. 0 - 44.0 MCHC (RBC) [Mass/Vol] 29.1 g/dL below low threshold See Below NE-Qfpcxfqjwu-SY [facility] [address] DO Work Phone: Comment on above: Reference Range: 32. 0 - 36.0 MCV (RBC) [Entitic vol] 86 fL 80 - 100 XQ-Zcrwofeaca-GM [facility] [address] DO Work Phone: Monocytes/100 WBC (Bld) 13.0 % 2.0 - 10.0 KJ-Opeivpkzlv-XT [facility] [address] DO Work Phone: Platelets (Bld) [#/Vol] 174 10*3/uL 150 - 450 LE-Rpvksgchmj-VG [facility] [address] DO Work Phone: RBC (Bld) [#/Vol] 3.51 {x10E12/L} below low threshold See Below HV-Uccgljkvzi-OR [facility] [address] DO Work Phone: Comment on above: Reference Range: 4.5 0 - 5.90 WBC (Bld) [#/Vol] 6.8 10*3/uL 4.4 - 11.3 MG-Car diology-CM [facility] [address] DO Work Phone: Magnesium, Serumon 1 Magnesium [Mass/Vol] 2.13 mg/dL See Below MG-C ardiology-CM [facility] [address] DO Work Phone: Comment on above: Reference Range: 1.6 0 - 2.40 No Panel Informationon 03-24 71.0 % See Below MG-Cardiology- CM [facility] [address] DO Work Phone: Comment on above: Reference Range: 40. 0 - 80.0 Percent differential counts (%) should be interpreted in the context of the absolute cell counts (cells/L). 70 {mL/min/1.73m2} >60 MG-Car diology-CM [facility] [address] DO Work Phone: Comment on above: CALCULATIONS OF ERICA MATED GFR ARE PERFORMED USING THE MDRD STUDY EQUATION FOR THE IDMS-TRACEABLE CREATININE METHODS. CLIN CHEM 2007;53:766-72 58 {mL/min/1.73m2} Abnormal >60 MG-Car diology-CM [facility] [address] DO Work Phone: Many MG-Cardiology- CM [facility] DO Work Phone: Mild MG-Cardiology- CM [facility] DO Work Phone: See Below MG-Cardiology- CM [facility] DO Work Phone: 0.00 {x10E9/L} See Below MG-Cardiol ogy-CM [facility] [address] DO Work Phone: Comment on above: Reference Range: 0.0 0 - 0.10 0.27 {x10E9/L} See Below MG-Cardiol ogy-CM [facility] [address] DO Work Phone: Comment on above: Reference Range: 0.0 0 - 0.70 0.88 {x10E9/L} See Below MG-Cardiol ogy-CM [facility] [address] DO Work Phone: Comment on above: Reference Range: 0.1 0 - 1.00 0.82 {x10E9/L} below low threshold See Below PX-Faucapjabg-IS [facility] [address] DO Work Phone: Comment on above: Reference Range: 1.2 0 - 4.80 4.83 {x10E9/L} See Below MG-Cardiol ogy-CM [facility] [address] DO Work Phone: Comment on above: Reference Range: 1.2 0 - 7.00 Reference Range: 1.2 0 - 7.70 4.0 % 0.0 - 6.0 MG-Cardiology- CM [facility] [address] DO Work Phone: 0.7 {/100_WBC} 0.0-0.0 MG-Cardiol ogy-CM [facility] [address] DO Work Phone: Path Review-Differentialon 1 05-25-2020 Path Review-Differential Canceled MG-Cardiolog y-CM [facility] [address] DO Work Phone: Comment on above: By her/his signature above, the Pathologist listed as making the final interpretation certifies that she/he has personally reviewed this case. Digoxin Level, Serumon 03-23 Digoxin [Mass/Vol] 0.30 ng/mL below low threshold See Below CO-Lkffkzwgrj-JN [facility] [address] DO Work Phone: Comment on above: Reference Range: 0.8 0 - 2.00 Ferritin, Serumon 03-23-2021 Ferritin [Mass/Vol] 16 ug/L below low threshold 20 - 300 JS-Vzxcxncinj-DL [facility] [address] DO Work Phone: Haptoglobin, Serumon 021 Haptoglobin Nephelometry [Mass/Vol] <30 30 - 200 JT-Fqcdomngtb-PC [facility] [address] DO Work Phone: Laboratory - Chemistry and C hemistry - challengeon 03-23-2021 Albumin BCP dye [Mass/Vol] 3.9 g/dL 3.4 - 5.0 JW-Pymstueeob-ZJ [facility] [address] DO Work Phone: ALP [Catalytic activity/Vol] 59 U/L 33 - 120 MV-Byswdlktuj-TY [facility] [address] DO Work Phone: ALT With P-5'-P [Catalytic activity/Vol] 7 U/L below low threshold 10 - 52 HO-Plqijyrifg-ZH [facility] [address] DO Work Phone: Comment on above: Patients treated wit h Sulfasalazine may generate falsely decreased results for ALT. Anion gap [Moles/Vol] 10 mmol/L 10 - 20 MG- Cardiology-CM [facility] [address] DO Work Phone: AST With P-5'-P [Catalytic activity/Vol] 13 U/L 9 - 39 XT-Kzjvehpoxe-GB [facility] [address] DO Work Phone: Bilirubin [Mass/Vol] 1.2 mg/dL 0.0 - 1.2 MG-C ardiology-CM [facility] [address] DO Work Phone: Calcium [Mass/Vol] 9.0 mg/dL 8.6 - 10.6 MG-Car diology-CM [facility] [address] DO Work Phone: Chloride [Moles/Vol] 103 mmol/L 98 - 107 MG-C ardiology-CM [facility] [address] DO Work Phone: CO2 [Moles/Vol] 26 mmol/L 21 - 32 MG-Cardio logy-CM [facility] [address] DO Work Phone: Creatinine [Mass/Vol] 1.41 mg/dL above high threshold See Below OQ-Xemybsrlna-RN [facility] [address] DO Work Phone: Comment on above: Reference Range: 0.5 0 - 1.30 Glucose [Mass/Vol] 187 mg/dL above high threshold 74 - 99 KM-Zjkozpcade-KQ [facility] [address] DO Work Phone: Iron [Mass/Vol] 16 ug/dL below low threshold 35 - 150 KE-Crplnicloj-TI [facility] [address] DO Work Phone: Iron binding capacity [Mass/Vol] >466 Abnormal 240 - 445 RS-Swxghuotdm-YT [facility] [address] DO Work Phone: Comment on above: Interpret results wi th caution.One or more analytes used in this calculation is outside of the analytical measurement range. LDH [Catalytic activity/Vol] 267 U/L above high threshold 84 - 246 QQ-Rdbefuxage-ZH [facility] [address] DO Work Phone: Potassium [Moles/Vol] 4.1 mmol/L 3.5 - 5.3 MG- Cardiology-CM [facility] [address] DO Work Phone: Protein [Mass/Vol] 6.6 g/dL 6.4 - 8.2 MG-Car diology-CM [facility] [address] DO Work Phone: Sodium [Moles/Vol] 135 mmol/L below low threshold 136 - 145 PN-Abcwmtgqld-RV [facility] [address] DO Work Phone: Urea nitrogen [Mass/Vol] 25 mg/dL above high threshold 6 - 23 TE-Vfgcpbofeb-KT [facility] [address] DO Work Phone: Glucose [Mass/Vol] 204 mg/dL above high threshold 74 - 99 SK-Yxoeohjycf-DU [facility] [address] DO Work Phone: Glucose [Mass/Vol] 95 mg/dL 74 - 99 MG-Car diology-CM [facility] [address] DO Work Phone: Laboratory - Coagulationon 1 05-24-2020 aPTT Coag (PPP) [Time] 32 s 26 - 39 AQ-Dkrrhupsoo-XG [facility] [address] DO Work Phone: Comment on above: Note new reference r alexsandra as of 03/21/2021 at 10:00am. INR Coag (PPP) [Relative time] 1.9 {INR} above high threshold 0.9 - 1.1 FN-Ckvrwkievn-TW [facility] [address] DO Work Phone: PT Coag (PPP) [Time] 22.6 s above high threshold 9.8 - 13.4 EG-Gsywgfbsvk-BK [facility] [address] DO Work Phone: Comment on above: Note new reference r alexsandra as of 03/21/2021 at 10:00am. INR Coag (PPP) [Relative time] 1.9 {INR} above high threshold 0.9 - 1.1 UZ-Aizmvbzdpr-DC [facility] [address] DO Work Phone: PT Coag (PPP) [Time] 22.4 s above high threshold 9.8 - 13.4 ON-Kswkulrput-QZ [facility] [address] DO Work Phone: Comment on above: Note new reference r alexsandra as of 03/21/2021 at 10:00am. Laboratory - Hematology and Cell countson 03-23-2021 Basophils/100 WBC (Bld) 0.0 % 0.0 - 2.0 NL-Bllytntsxz-FH [facility] [address] DO Work Phone: Erythrocyte distribution width (RBC) [Ratio] 18.0 % above high threshold See Below WB-Muugjnlrjm-TN [facility] [address] DO Work Phone: Comment on above: Reference Range: 11. 5 - 14.5 Hematocrit (Bld) [Volume fraction] 29.2 % below low threshold See Below FA-Mdlsjijxlq-ML [facility] [address] DO Work Phone: Comment on above: Reference Range: 41. 0 - 52.0 Hemoglobin (Bld) [Mass/Vol] 8.2 g/dL below low threshold See Below AX-Gguhmdyqeo-QP [facility] [address] DO Work Phone: Comment on above: Reference Range: 13. 5 - 17.5 Lymphocytes/100 WBC (Bld) 17.0 % See Below NJ-Mleqtgwgnd-IA [facility] [address] DO Work Phone: Comment on above: Reference Range: 13. 0 - 44.0 MCHC (RBC) [Mass/Vol] 28.1 g/dL below low threshold See Below YK-Dbznazqpvx-KQ [facility] [address] DO Work Phone: Comment on above: Reference Range: 32. 0 - 36.0 MCV (RBC) [Entitic vol] 88 fL 80 - 100 NJ-Ukokvrwhxx-VN [facility] [address] DO Work Phone: Monocytes/100 WBC (Bld) 11.0 % 2.0 - 10.0 WL-Nbvzawtucl-NM [facility] [address] DO Work Phone: Platelets (Bld) [#/Vol] 147 10*3/uL below low threshold 150 - 450 WV-Lwdsxrpqzl-FX [facility] [address] DO Work Phone: RBC (Bld) [#/Vol] 3.33 {x10E12/L} below low threshold See Below YR-Jkynnqfqse-FI [facility] [address] DO Work Phone: Comment on above: Reference Range: 4.5 0 - 5.90 WBC (Bld) [#/Vol] 5.4 10*3/uL 4.4 - 11.3 MG-Car diology-CM [facility] [address] DO Work Phone: Erythrocyte distribution width (RBC) [Ratio] 18.6 % above high threshold See Below XP-Juqenzmamy-OH [facility] [address] DO Work Phone: Comment on above: Reference Range: 11. 5 - 14.5 Hematocrit (Bld) [Volume fraction] 24.4 % below low threshold See Below LD-Arlaeroowl-GT [facility] [address] DO Work Phone: Comment on above: Reference Range: 41. 0 - 52.0 Hemoglobin (Bld) [Mass/Vol] 6.8 g/dL below low threshold See Below TG-Onyiyguzhu-ET [facility] [address] DO Work Phone: Comment on above: Reference Range: 13. 5 - 17.5 MCHC (RBC) [Mass/Vol] 27.9 g/dL below low threshold See Below EL-Hmcoezrsgi-PS [facility] [address] DO Work Phone: Comment on above: Reference Range: 32. 0 - 36.0 MCV (RBC) [Entitic vol] 87 fL 80 - 100 FD-Vbvfywldfb-IB [facility] [address] DO Work Phone: Platelets (Bld) [#/Vol] 158 10*3/uL 150 - 450 DQ-Twrctiknix-OY [facility] [address] DO Work Phone: RBC (Bld) [#/Vol] 2.81 {x10E12/L} below low threshold See Below LA-Ixdreemxtl-DH [facility] [address] DO Work Phone: Comment on above: Reference Range: 4.5 0 - 5.90 WBC (Bld) [#/Vol] 5.9 10*3/uL 4.4 - 11.3 MG-Car diology-CM [facility] [address] DO Work Phone: Magnesium, Serumon 1 Magnesium [Mass/Vol] 2.19 mg/dL See Below MG-C ardiology-CM [facility] [address] DO Work Phone: Comment on above: Reference Range: 1.6 0 - 2.40 Magnesium [Mass/Vol] 2.33 mg/dL See Below MG-C ardiology-CM [facility] [address] DO Work Phone: Comment on above: Reference Range: 1.6 0 - 2.40 No Panel Informationon 03-23 Few MG-Cardiology- CM [facility] [address] DO Work Phone: Mild MG-Cardiology- CM [facility] DO Work Phone: See Below MG-Cardiology- CM [facility] DO Work Phone: 0.00 {x10E9/L} See Below MG-Cardiol ogy-CM [facility] [address] DO Work Phone: Comment on above: Reference Range: 0.0 0 - 0.10 0.11 {x10E9/L} See Below MG-Cardiol ogy-CM [facility] [address] DO Work Phone: Comment on above: Reference Range: 0.0 0 - 0.70 0.59 {x10E9/L} See Below MG-Cardiol ogy-CM [facility] [address] DO Work Phone: Comment on above: Reference Range: 0.1 0 - 1.00 0.92 {x10E9/L} below low threshold See Below IL-Qkjpmkszyn-JI [facility] [address] DO Work Phone: Comment on above: Reference Range: 1.2 0 - 4.80 3.78 {x10E9/L} See Below MG-Cardiol ogy-CM [facility] [address] DO Work Phone: Comment on above: Reference Range: 1.2 0 - 7.00 Reference Range: 1.2 0 - 7.70 2.0 % 0.0 - 6.0 MG-Cardiology- CM [facility] [address] DO Work Phone: 70.0 % See Below MG-Cardiology- CM [facility] [address] DO Work Phone: Comment on above: Reference Range: 40. 0 - 80.0 Percent differential counts (%) should be interpreted in the context of the absolute cell counts (cells/L). 1.3 {/100_WBC} 0.0-0.0 MG-Cardiol ogy-CM [facility] [address] DO Work Phone: NOT CALC. 25 - 45 MG-Cardiology- CM [facility] [address] DO Work Phone: Comment on above: One or more analytes used in this calculation is outside of the analytical measurement range.Calculation cannot be performed. 62 {mL/min/1.73m2} >60 MG-Car diology-CM [facility] [address] DO Work Phone: Comment on above: CALCULATIONS OF ERICA MATED GFR ARE PERFORMED USING THE MDRD STUDY EQUATION FOR THE IDMS-TRACEABLE CREATININE METHODS. CLIN CHEM 2007;53:766-72 51 {mL/min/1.73m2} Abnormal >60 MG-Car diology-CM [facility] [address] DO Work Phone: ORDER RECD MG-Cardiology- CM [facility] [address] DO Work Phone: ORDER RECD MG-Cardiology- CM [facility] [address] DO Work Phone: 1.2 {/100_WBC} 0.0-0.0 MG-Cardiol ogy-CM [facility] [address] DO Work Phone: Renal Function Panelon 03-23 Albumin BCP dye [Mass/Vol] 3.8 g/dL 3.4 - 5.0 UO-Pslerggdbj-FM [facility] [address] DO Work Phone: Anion gap [Moles/Vol] 12 mmol/L 10 - 20 MG- Cardiology-CM [facility] [address] DO Work Phone: Calcium [Mass/Vol] 8.6 mg/dL 8.6 - 10.6 MG-Car diology-CM [facility] [address] DO Work Phone: Chloride [Moles/Vol] 107 mmol/L 98 - 107 MG-C ardiology-CM [facility] [address] DO Work Phone: CO2 [Moles/Vol] 22 mmol/L 21 - 32 MG-Cardio logy-CM [facility] [address] DO Work Phone: Creatinine [Mass/Vol] 1.08 mg/dL See Below MG- Cardiology-CM [facility] [address] DO Work Phone: Comment on above: Reference Range: 0.5 0 - 1.30 Glucose [Mass/Vol] 91 mg/dL 74 - 99 MG-Car diology-CM [facility] [address] DO Work Phone: Phosphate [Mass/Vol] 2.9 mg/dL 2.5 - 4.9 MG-C ardiology-CM [facility] [address] DO Work Phone: Comment on above: The performance jean pierre acteristics of phosphorus testing in heparinized plasma have been validated by the individual laboratory site where testing is performed. Testing on heparinized plasma is not approved by the FDA; however, such approval is not necessary. Potassium [Moles/Vol] 4.3 mmol/L 3.5 - 5.3 MG- Cardiology-CM [facility] [address] DO Work Phone: Sodium [Moles/Vol] 137 mmol/L 136 - 145 MG-Car diology-CM [facility] [address] DO Work Phone: Urea nitrogen [Mass/Vol] 19 mg/dL 6 - 23 KD-Ocemumraqs-EW [facility] [address] DO Work Phone: Renal Function Panel >60 >60 MG-C ardiology-CM [facility] [address] DO Work Phone: Comment on above: CALCULATIONS OF ERICA MATED GFR ARE PERFORMED USING THE MDRD STUDY EQUATION FOR THE IDMS-TRACEABLE CREATININE METHODS. CLIN CHEM 2007;53:766-72 Vitamin B12, Serumon 021 Cobalamin (Vitamin B12) [Mass/Vol] 397 pg/mL 211 - 911 PN-Jfccethxwr-FN [facility] [address] DO Work Phone: Activated Partial Thrombopla stin Timeon 03-22-2021 aPTT Coag (PPP) [Time] 32 s 26 - 39 GH-Vtschtsbzc-JW [facility] [address] DO Work Phone: Comment on above: Note new reference levon upton as of 03/21/2021 at 10:00am. Complete Blood Count + Diffe rentialon 03-22-2021 Basophils/100 WBC (Bld) 0.5 % 0.0 - 2.0 TJ-Fxpbwltsye-QN [facility] [address] DO Work Phone: Erythrocyte distribution width (RBC) [Ratio] 19.4 % above high threshold See Below PK-Eajxcancvx-FX [facility] [address] DO Work Phone: Comment on above: Reference Range: 11. 5 - 14.5 Hematocrit (Bld) [Volume fraction] 22.6 % below low threshold See Below RA-Clqtrmzhwc-MD [facility] [address] DO Work Phone: Comment on above: Reference Range: 41. 0 - 52.0 Hemoglobin (Bld) [Mass/Vol] 6.3 g/dL Critically low See Below OD-Hykoglldhw-CL [facility] [address] DO Work Phone: Comment on above: Reference Range: 13. 5 - 17.5CRIT TO ERIC HALEY 2IDS, 03/22/2021 19:44 Lymphocytes/100 WBC (Bld) 15.9 % See Below PL-Xncksrrals-AD [facility] [address] DO Work Phone: Comment on above: Reference Range: 13. 0 - 44.0 MCHC (RBC) [Mass/Vol] 27.9 g/dL below low threshold See Below SG-Zthojpwjhj-ML [facility] [address] DO Work Phone: Comment on above: Reference Range: 32. 0 - 36.0 MCV (RBC) [Entitic vol] 86 fL 80 - 100 XX-Qvchflagti-YS [facility] [address] DO Work Phone: Monocytes/100 WBC (Bld) 15.2 % 2.0 - 10.0 YJ-Zxrvkghbfm-HM [facility] [address] DO Work Phone: Neutrophils/100 WBC (Bld) 64.6 % See Below GB-Fcujspxotv-HP [facility] [address] DO Work Phone: Comment on above: Reference Range: 40. 0 - 80.0 Platelets (Bld) [#/Vol] 178 10*3/uL 150 - 450 HT-Wvkupwgssb-JS [facility] [address] DO Work Phone: RBC (Bld) [#/Vol] 2.62 {x10E12/L} below low threshold See Below RJ-Skoenbvkmt-PN [facility] [address] DO Work Phone: Comment on above: Reference Range: 4.5 0 - 5.90 WBC (Bld) [#/Vol] 6.0 10*3/uL 4.4 - 11.3 MG-Car diology-CM [facility] [address] DO Work Phone: Complete Blood Count + Differential 0.03 {x10E9/L} See Below UD-Bhmbbiiocj-BO [facility] [address] DO Work Phone: Comment on above: Reference Range: 0.0 0 - 0.10 Complete Blood Count + Differential 0.21 {x10E9/L} See Below ID-Uecmzdzufq-YP [facility] [address] DO Work Phone: Comment on above: Reference Range: 0.0 0 - 0.70 Complete Blood Count + Differential 0.92 {x10E9/L} See Below EP-Xyltermylq-EI [facility] [address] DO Work Phone: Comment on above: Reference Range: 0.1 0 - 1.00 Complete Blood Count + Differential 0.96 {x10E9/L} below low threshold See Below JM-Mqupsmrlnq-LG [facility] [address] DO Work Phone: Comment on above: Reference Range: 1.2 0 - 4.80 Complete Blood Count + Differential 3.90 {x10E9/L} See Below RI-Cdiqvqtdyt-PS [facility] [address] DO Work Phone: Comment on above: Reference Range: 1.2 0 - 7.70 Complete Blood Count + Differential 3.5 % 0.0 - 6.0 YM-Vmbjyklfrl-UP [facility] [address] DO Work Phone: Complete Blood Count + Differential 0.3 % 0.0 - 0.9 XD-Neredmvjnq-PJ [facility] [address] DO Work Phone: Comment on above: Immature Granulocyte Count (IG) includes promyelocytes, myelocytes and metamyelocytes but does not include bands. Percent differential counts (%) should be interpreted in the context of the absolute cell counts (cells/L). Complete Blood Count + Differential 1.3 {/100_WBC} 0.0-0.0 FT-Lzyjeuyljd-SL [facility] [address] DO Work Phone: Coronavirus 2019 RNA by PCR, Screening Asymptomticon 03-22-2021 Coronavirus 2019 RNA by PCR, Screening Asymptomtic Detected Abnormal See Below RR-Lpjwmgihgz-YP [facility] [address] DO Work Phone: Comment on above: SOURCE: Nasal, Nasop haryngealReference Range: Not Detected.This test has received FDA Emergency Use Authorization (EUA) and has been verified by [facility] ([facility]). This test is only authorized for the duration of time that circumstances exist to justify the authorization of the emergency use of in vitro diagnostic tests for the detection of SARS-CoV-2 virus and/or diagnosis of COVID-19 infection under section 564(b)(1) of the Act, 21 U.S.C. 360bbb-3(b)(1), unless the authorization is terminated or revoked sooner. [facility] is certified under CLIA-88 as qualified to perform high complexity testing. Testing is performed in the [facility] located at [address] [place] [address].SARS-CoV-2/Flu/RSV Multiplex Test: Fact sheet for providers: https://www.fda.gov/media/778522/downloadFact sheet for patients: https://www.fda.gov/media/451634/download Laboratory - Blood bankon ABO group Nom (Bld) A MG-Ca rdiology-CM [facility] [address] DO Work Phone: Blood group antibody screen Ql Negative RZ-Mucwtnuomn-WC [facility] [address] DO Work Phone: Rh immune globulin screen (Bld) [Interp] Positive MG-Cardiol ogy-CM [facility] [address] DO Work Phone: Laboratory - Chemistry and C hemistry - challengeon 03-22-2021 Albumin BCP dye [Mass/Vol] 4.1 g/dL 3.4 - 5.0 XW-Uucdfcztqy-BN [facility] [address] DO Work Phone: ALP [Catalytic activity/Vol] 63 U/L 33 - 120 FZ-Aglawaqwet-NE [facility] [address] DO Work Phone: ALT With P-5'-P [Catalytic activity/Vol] 6 U/L below low threshold 10 - 52 VN-Wdvwlacopl-BA [facility] [address] DO Work Phone: Comment on above: Patients treated wit h Sulfasalazine may generate falsely decreased results for ALT. Anion gap [Moles/Vol] 9 mmol/L below low threshold 10 - 20 NH-Ylbrtoktex-XQ [facility] [address] DO Work Phone: AST With P-5'-P [Catalytic activity/Vol] 16 U/L 9 - 39 AW-Xvojdtcapp-HH [facility] [address] DO Work Phone: Bilirubin [Mass/Vol] 0.7 mg/dL 0.0 - 1.2 MG-C ardiology-CM [facility] [address] DO Work Phone: Calcium [Mass/Vol] 8.9 mg/dL 8.6 - 10.6 MG-Car diology-CM [facility] [address] DO Work Phone: Chloride [Moles/Vol] 104 mmol/L 98 - 107 MG-C ardiology-CM [facility] [address] DO Work Phone: CO2 [Moles/Vol] 26 mmol/L 21 - 32 MG-Cardio logy-CM [facility] [address] DO Work Phone: Creatinine [Mass/Vol] 1.34 mg/dL above high threshold See Below AA-Hnkjdmhzpy-NL [facility] [address] DO Work Phone: Comment on above: Reference Range: 0.5 0 - 1.30 Glucose [Mass/Vol] 127 mg/dL above high threshold 74 - 99 JY-Hyrzccavzi-HY [facility] [address] DO Work Phone: LDH [Catalytic activity/Vol] 303 U/L above high threshold 84 - 246 DB-Suriktulrh-HZ [facility] [address] DO Work Phone: Potassium [Moles/Vol] 4.3 mmol/L 3.5 - 5.3 MG- Cardiology-CM [facility] [address] DO Work Phone: Protein [Mass/Vol] 7.4 g/dL 6.4 - 8.2 MG-Car diology-CM [facility] [address] DO Work Phone: Sodium [Moles/Vol] 135 mmol/L below low threshold 136 - 145 GE-Zbzmhwdmfs-NL [facility] [address] DO Work Phone: Urea nitrogen [Mass/Vol] 23 mg/dL 6 - 23 ER-Cvzyayxscg-OR [facility] [address] DO Work Phone: Laboratory - Coagulationon 1 05-23-2020 INR Coag (PPP) [Relative time] 2.3 {INR} above high threshold 0.9 - 1.1 GE-Dnaucghtfi-BT [facility] [address] DO Work Phone: PT Coag (PPP) [Time] 26.5 s above high threshold 9.8 - 13.4 UG-Juxvrjrtyd-OT [facility] [address] DO Work Phone: Comment on above: Note new reference r alexsandra as of 03/21/2021 at 10:00am. Laboratory - Hematology and Cell countson 03-22-2021 Erythrocyte distribution width (RBC) [Ratio] 19.0 % above high threshold See Below QL-Kiadmzzkvh-CY [facility] [address] DO Work Phone: Comment on above: Reference Range: 11. 5 - 14.5 Hematocrit (Bld) [Volume fraction] 23.7 % below low threshold See Below RT-Lncgxxjpbp-RU [facility] [address] DO Work Phone: Comment on above: Reference Range: 41. 0 - 52.0 Hemoglobin (Bld) [Mass/Vol] 6.7 g/dL below low threshold See Below ZF-Sxhfvsxfks-CF [facility] [address] DO Work Phone: Comment on above: Reference Range: 13. 5 - 17.5 MCHC (RBC) [Mass/Vol] 28.3 g/dL below low threshold See Below QA-Oitwnfchaq-JK [facility] [address] DO Work Phone: Comment on above: Reference Range: 32. 0 - 36.0 MCV (RBC) [Entitic vol] 88 fL 80 - 100 RO-Idskubgdln-TR [facility] [address] DO Work Phone: Platelets (Bld) [#/Vol] 145 10*3/uL below low threshold 150 - 450 BJ-Wanjnvnleh-HB [facility] [address] DO Work Phone: RBC (Bld) [#/Vol] 2.69 {x10E12/L} below low threshold See Below SJ-Vojxtvbtrq-KR [facility] DO Work Phone: Comment on above: Reference Range: 4.5 0 - 5.90 WBC (Bld) [#/Vol] 6.0 10*3/uL 4.4 - 11.3 MG-Car diology-CM C [facility] DO Work Phone: No Panel Informationon 03-22 1.5 {/100_WBC} 0.0-0.0 MG-Cardiol ogy-CM C [facility] DO Work Phone: ORDER RECD MG-Cardiology- CM [facility] DO Work Phone: 65 {mL/min/1.73m2} >60 MG-Car diology-CM C [facility] DO Work Phone: Comment on above: CALCULATIONS OF ERICA MATED GFR ARE PERFORMED USING THE MDRD STUDY EQUATION FOR THE IDMS-TRACEABLE CREATININE METHODS. CLIN CHEM 2007;53:766-72 54 {mL/min/1.73m2} Abnormal >60 MG-Car diology-CM C [facility] DO Work Phone: [email or web address]?PatientID= [id number]&Date=2020&Time=17%3a00%3a4 0%3a00&TestType=ECG&S ite=1&OutputType=PDF& Ext=PDF LB-Egqrxwdwhv-WY [facility] DO Work Phone: Please see ED Provider Note for formal interpretation CS-Estlfuxmkt-AW [facility] DO Work Phone: Normal MG-Cardiology- CM [facility] DO Work Phone: [phone] MG-Cardiology- CM [facility] DO Work Phone: [phone] MG-Cardiology- CM [facility] DO Work Phone: 179 1 MG-Cardiology- CM [facility] DO Work Phone: 13 1 MG-Cardiology- CM [facility] DO Work Phone: 39 1 MG-Cardiology- CM [facility] DO Work Phone: 269 1 MG-Cardiology- CM [facility] DO Work Phone: 539 1 MG-Cardiology- CM [facility] DO Work Phone: 468 1 MG-Cardiology- CM [facility] DO Work Phone: 140 1 MG-Cardiology- CM [facility] DO Work Phone: 83 1 MG-Cardiology- CM [facility] DO Work Phone: 80 1 MG-Cardiology- CM [facility] DO Work Phone: Occult Blood, Stoolon 2020 Hemoglobin.gastrointe stinal Ql (Stl) Canceled PE-Qrjlwyqwwg-CF [facility] DO Work Phone: Comment on above: SOURCE: Stool Radiologyon 03-22-2021 XR Chest Single view Normal MG-C ardiology-CM [facility] DO Work Phone: Reticulocyte Counton 021 Reticulocyte Count 15 pg below low threshold 28 - 38 UX-Reiukxfsfr-TQ [facility] DO Work Phone: Reticulocyte Count 16.3 % above high threshold 0.0 - 16.0 EK-Wfpsysphlf-JV [facility] DO Work Phone: Reticulocyte Count 0.079 {x10E12/L} See Below VB-Gshzzlhkvo-WQ [facility] DO Work Phone: Comment on above: Reference Range: 0.0 22 - 0.118 Reticulocyte Count 3.0 % above high threshold 0.5 - 2.0 TO-Pfwwsrcrzb-OO [facility] DO Work Phone: Urinalysison 03-22-2021 Color (U) YELLOW See Below MG-Cardiology- CM [facility] DO Work Phone: Comment on above: Reference Range: STR AW,YELLOW Glucose Ql (U) >=500 (3+) Abnormal NEGATIVE MG-Cardiol ogy-CM [facility] [address] DO Work Phone: Ketones Ql (U) Negative NEGATIVE MG-Cardiol ogy-CM [facility] [address] DO Work Phone: Leukocyte esterase Test strip Ql (U) Negative NEGATIVE MG-Cardiology- CM [facility] [address] DO Work Phone: pH (U) 7.0 [pH] 5.0 - 8.0 MG-Cardiology- CM [facility] DO Work Phone: Protein (U) [Mass/Vol] Negative NEGATIVE XM-Euarkqonsc-OQ [facility] [address] DO Work Phone: RBC (U) [#/Vol] Negative NEGATIVE MG-Cardio logy-CM [facility] [address] DO Work Phone: Specific gravity (U) [Rel density] 1.014 1 See Below KV-Vvjxlhzcne-WP [facility] DO Work Phone: Comment on above: Reference Range: 1.0 05 - 1.035 Urinalysis Negative NEGATIVE MG-Cardiology- CM [facility] DO Work Phone: Urinalysis 4.0 mg/dL above high threshold 0.0 - 1.9 WO-Kcqfqxcyob-IU [facility] [address] DO Work Phone: Comment on above: SOME PIGMENTS AND ME DICATIONS MAY CAUSE AFALSE POSITIVE UROBILINOGEN Urinalysis CLEAR CLEAR MG-Cardiology- CM C [facility] [address] DO Work Phone: LVAD Flowsheeton 01-31-2021 LVAD Flowsheet 3.9 1 MG-Cardiol ogy-CM [facility] [address] [place] Work Phone: LVAD Flowsheet 9600 1 MG-Cardiol ogy-CM [facility] [address] [place] Work Phone: LVAD Flowsheet 4.1 1 MG-Cardiol ogy-CM [facility] [address] [place] Work Phone: LVAD Flowsheet 5.3 1 MG-Cardiol ogy-CM C [facility] [address] [place] Work Phone: LVAD Flowsheet multiple PI events noted UY-Omwbpaztwi-IT [facility] [address] [place] Work Phone: Tobacco Screening.on 021 Fall risk assessment a) No falls within the last year GW-Nkbjrmytvi-ZJ [facility] [address] [place] Work Phone: Tobacco use status CPHS b) No PV-Botrtqzupq-QA [facility] [address] [place] Work Phone: LVAD Flowsheeton 08-29-2020 LVAD Flowsheet 5.0 1 MG-Cardiol ogy-CM C [facility] [address] [place] Work Phone: LVAD Flowsheet 5.9 1 MG-Cardiol ogy-CM [facility] [address] [place] Work Phone: LVAD Flowsheet 9600 1 MG-Cardiol ogy-CM [facility] [address] [place] Work Phone: LVAD Flowsheet low voltage advisory and PI events noted. XG-Ozetrgvsop-IF [facility] [place] Work Phone: Vital Signs Date Time Vital Sign Value Performing Clinician Facility 05-27-2023 08:56-0500 Body height 181.6 cm Joleen Kuhnmarkel [employer] Work Phone: [facility] 05-27-2023 08:56-0500 Body mass index (BMI) [Ratio] 33.45 kg/m2 Joleen Sharon [employer] TE[employer] Work Phone: [facility] 05-27-2023 08:56-0500 Body temperature 97.5 [degF] Joleen Sharon SPARK TE[employer] Work Phone: [facility] 05-27-2023 08:56-0500 Body weight 110.31 kg Joleen Boudreauxbrant [employer] TE[employer] Work Phone: [facility] 05-27-2023 08:56-0500 Heart rate 83 /min Joleen Sharon [employer] TESTER Work Phone: [facility] 05-27-2023 08:56-0500 Respiratory rate 17 /min Joleen Sharon [employer] TESTER Work Phone: [facility] 05-27-2023 08:56-0500 SaO2% (BldA) [Mass fraction] 94 % Joleenmickie Kuhnmarkel [employer]ARK TESTER Work Phone: [facility] 05-24-2023 15:50-0500 Body temperature 97.7 [degF] Janene Negrete MD PhD Work Phone: [facility] 05-24-2023 15:50-0500 Heart rate 81 /min Janene Negrete MD PhD Work Phone: [facility] 05-24-2023 15:50-0500 Respiratory rate 16 /min Janene Negrete MD PhD Work Phone: [facility] 05-24-2023 15:50-0500 SaO2% (BldA) [Mass fraction] 97 % Janene Negrete MD PhD Work Phone: [facility] 05-24-2023 04:11-0500 Body mass index (BMI) [Ratio] 32.27 kg/m2 Janene Negrete MD PhD Work Phone: [facility] 05-24-2023 04:11-0500 Body weight 106.9 kg Janene Negrete MD PhD Work Phone: [facility] 05-19-2023 12:50-0500 Body height 182 cm Janene Negrete MD PhD Work Phone: [facility] 04-07-2023 15:34-0500 Body temperature 97.34 [degF] [facility] 04-07-2023 15:34-0500 Diastolic blood pressure 0 mm[Hg] [facility] 04-07-2023 15:34-0500 Heart rate 80 /min [facility] 04-07-2023 15:34-0500 Respiratory rate 18 /min [facility] 04-07-2023 15:34-0500 SaO2% (BldA) [Mass fraction] 96 % [facility] 04-07-2023 15:34-0500 Systolic blood pressure 82 mm[Hg] [facility] 01-11-2023 10:43-0400 Body height 181.6 cm Ailyn Friend MD Work Phone: [facility] 01-11-2023 10:43-0400 Body temperature 97.3 [degF] Ailyn Friend MD Work Phone: [facility] 01-11-2023 10:43-0400 Body weight 113.94 kg Ailyn Friend MD Work Phone: [facility] 01-11-2023 10:43-0400 Respiratory rate 18 /min Ailyn Friend MD Work Phone: [facility] 01-11-2023 10:43-0400 SaO2% (BldA) [Mass fraction] 97 % iAlyn Friend MD Work Phone: [facility] 08-15-2022 13:52-0400 Body mass index (BMI) [Ratio] 34.45 kg/m2 Joleen Boudreauxsilvianodane Work Phone: VO-Hzykhinygt-QWY [facility] [address] [place] Work Phone: 08-15-2022 13:52-0400 Body surface area Derived from formula 2.31 m2 Joleen Fierro Bamsusanbrant Work Phone: DH-Mgruudzqto-ATW [facility] [address] [place] Work Phone: 08-15-2022 13:52-0400 Body weight 112.04 kg Joleen Fierro Bamsusanbrant Work Phone: GR-Ccyzwbjqyj-CKK [facility] [address] [place] Work Phone: 08-15-2022 13:52-0400 Heart rate 88 /min Joleen Fierro Bamsusanbrant Work Phone: WX-Jyrtygvxpe-PTO [facility] [address] [place] Work Phone: 08-15-2022 13:52-0400 SaO2% (BldA) [Mass fraction] 93 % Joleen Fierro Bamsusanbrant Work Phone: CT-Eaphevvycd-SRQ [facility] [address] [place] Work Phone: 08-15-2022 13:52-0400 0 1 Joleen Fierro Bammarkel Work Phone: SH-Yadcdnvpms-NOA [facility] [place] Work Phone: Comment on above: [employer] 01-25-2022 13:43-0400 Body height 180.34 cm Joleen Fierro Bamsusanbrant Work Phone: NG-Lafprigvem-GVI [facility] [address] [place] Work Phone: 01-25-2022 13:43-0400 Body mass index (BMI) [Ratio] 34.31 kg/m2 Joleen Herrera Work Phone: BO-Hymkmvpvby-XLJ [facility] [address] [place] Work Phone: 01-25-2022 13:43-0400 Body mass index (BMI) [Ratio] 35.3 kg/m2 Joleen Herrera Work Phone: XF-Ftfckdyqmj-AYA [facility] [address] [place] Work Phone: 01-25-2022 13:43-0400 Body surface area Derived from formula 2.3 m2 Joleen Herrera Work Phone: AC-Zrbrjfejhb-PFL [facility] [address] [place] Work Phone: 01-25-2022 13:43-0400 Body surface area Derived from formula 2.33 m2 Joleen Herrera Work Phone: JE-Pdszdfovng-TDF [facility] [address] [place] Work Phone: 01-25-2022 13:43-0400 Body weight 111.59 kg Joleen Herrera Work Phone: BN-Ibibuiudme-SJC [facility] [address] [place] Work Phone: 01-25-2022 13:43-0400 Body weight 114.82 kg Joleen Herrera Work Phone: GQ-Jxcutyarlo-EZJ [facility] [address] [place] Work Phone: 01-25-2022 13:43-0400 Diastolic blood pressure 81 mm[Hg] Joleen Herrera Work Phone: RB-Fmutkugabd-ZME [facility] [address] [place] Work Phone: 01-25-2022 13:43-0400 Heart rate 80 /min Joleen Herrera Work Phone: ZH-Yfgcbebgbm-ZUV [facility] [address] [place] Work Phone: 01-25-2022 13:43-0400 SaO2% (BldA) [Mass fraction] 94 % Joleen Hererra Work Phone: SM-Ziijftiqfu-RWP [facility] [address] [place] Work Phone: 01-25-2022 13:43-0400 Systolic blood pressure 104 mm[Hg] Joleen Herrera Work Phone: BC-Bmxdopbudo-TJU [facility] [address] [place] Work Phone: 01-25-2022 13:43-0400 0 1 Joleen Herrera Work Phone: AB-Goeysxoftn-VWP [facility] [address] [place] Work Phone: Comment on above: [employer] 01-10-2022 15:02-0400 Body height 181.6 cm Ailyn Friend MD Work Phone: [facility] 01-10-2022 15:02-0400 Body temperature 97.2 [degF] Ailyn Friend MD Work Phone: [facility] 01-10-2022 15:02-0400 Body weight 115.39 kg Ailyn Friend MD Work Phone: [facility] 01-10-2022 15:02-0400 Diastolic blood pressure 13 mm[Hg] Ailyn Friend MD Work Phone: [facility] 01-10-2022 15:02-0400 Heart rate 70 /min Ailyn Friend MD Work Phone: [facility] 01-10-2022 15:02-0400 Respiratory rate 18 /min Ailyn Friend MD Work Phone: [facility] 01-10-2022 15:02-0400 SaO2% (BldA) [Mass fraction] 97 % Ailyn Friend MD Work Phone: [facility] 01-10-2022 15:02-0400 Systolic blood pressure 99 mm[Hg] Ailyn Friend MD Work Phone: [facility] 12-28-2021 10:04-0400 Body temperature 96.8 [degF] Joleenmickie Herrera Other Phone: [facility] 12-28-2021 10:04-0400 Diastolic blood pressure 67 mm[Hg] Joleen Sri Kuhnhholz Other Phone: [facility] 12-28-2021 10:04-0400 Heart rate 79 /min Joleen Sri Herrera Other Phone: [facility] 12-28-2021 10:04-0400 Respiratory rate 18 /min Joleen Sri Herrera Other Phone: [facility] 12-28-2021 10:04-0400 SaO2% (BldA) [Mass fraction] 97 % Joleen Sri Herrera Other Phone: [facility] 12-28-2021 10:04-0400 Systolic blood pressure 93 mm[Hg] Joleen Sri Boudreauxholdane Other Phone: [facility] 12-28-2021 06:15-0400 Body weight 110.3 kg Joleen Fierro Sharon Other Phone: [facility] 11-02-2021 10:49-0400 Body height 181.6 cm Jerrell Kraus MD Work Phone: [facility] 11-02-2021 10:49-0400 Body temperature 97.5 [degF] Jerrell Kraus MD Work Phone: [facility] 11-02-2021 10:49-0400 Body weight 117.39 kg Jerrell Kraus MD Work Phone: [facility] 11-02-2021 10:49-0400 Diastolic blood pressure 71 mm[Hg] Jerrell Kraus MD Work Phone: [facility] 07-14-2022 10:49-0400 Heart rate 94 /min Jerrell Kraus MD Work Phone: [facility] 11-02-2021 10:49-0400 Respiratory rate 16 /min Jerrell Kraus MD Work Phone: [facility] 11-02-2021 10:49-0400 SaO2% (BldA) [Mass fraction] 95 % Jerrell Kraus MD Work Phone: [facility] 11-02-2021 10:49-0400 Systolic blood pressure 104 mm[Hg] Jerrell Kraus MD Work Phone: [facility] 10-05-2021 10:45-0400 Body height 181.6 cm Jerrell Kraus MD Work Phone: [facility] 10-05-2021 10:45-0400 Body temperature 97.9 [degF] Jerrell Kraus MD Work Phone: [facility] 10-05-2021 10:45-0400 Body weight 115.58 kg Jerrell Kraus MD Work Phone: [facility] 10-05-2021 10:45-0400 Diastolic blood pressure 72 mm[Hg] Jerrell Kraus MD Work Phone: [facility] 10-05-2021 10:45-0400 Heart rate 78 /min Jerrell Kraus MD Work Phone: [facility] 10-05-2021 10:45-0400 Respiratory rate 16 /min Jerrell Kraus MD Work Phone: [facility] 10-05-2021 10:45-0400 SaO2% (BldA) [Mass fraction] 96 % Jerrell Kraus MD Work Phone: [facility] 10-05-2021 10:45-0400 Systolic blood pressure 89 mm[Hg] Jerrell Kraus MD Work Phone: [facility] 10-03-2021 14:13-0400 Body height 180.34 cm Joleen Herrera Work Phone: SY-Dlzjboxzsu-QHY [facility] [address] [place] Work Phone: 10-03-2021 14:13-0400 Body mass index (BMI) [Ratio] 34.78 kg/m2 Joleen Herrera Work Phone: CB-Pjcobcgulm-ZUI [facility] [address] [place] Work Phone: 10-03-2021 14:13-0400 Body surface area Derived from formula 2.32 m2 Joleen Herrera Work Phone: EG-Ebyevmjuvx-HNV [facility] [address] [place] Work Phone: 10-03-2021 14:13-0400 Body weight 113.12 kg Joleen Herrera Work Phone: KD-Ouyjwzhzbd-KWD [facility] [address] [place] Work Phone: 10-03-2021 09:16-0400 3.3 1 Joleen Herrera Work Phone: VM-Qroiccxonp-SRE [facility] [address] [place] Work Phone: Comment on above: IOINR3 09-21-2021 12:51-0400 Body temperature 97.5 [degF] Jerrell Kraus MD Work Phone: [facility] 09-21-2021 12:51-0400 Body weight 115.67 kg Jerrell Kraus MD Work Phone: [facility] 09-21-2021 12:51-0400 Diastolic blood pressure 41 mm[Hg] Jerrell Kraus MD Work Phone: [facility] 09-21-2021 12:51-0400 Heart rate 46 /min Jerrell Kraus MD Work Phone: [facility] 09-21-2021 12:51-0400 Respiratory rate 16 /min Jerrell Kraus MD Work Phone: [facility] 09-21-2021 12:51-0400 SaO2% (BldA) [Mass fraction] 96 % Jerrell Kraus MD Work Phone: [facility] 09-21-2021 12:51-0400 Systolic blood pressure 81 mm[Hg] Jerrell Kraus MD Work Phone: [facility] 09-12-2021 09:53-0400 2.2 1 Joleen Herrera Work Phone: [facility] Work Phone: Comment on above: IOINR3 09-05-2021 10:32-0400 3.5 1 Joleen Herrera Work Phone: [facility] Work Phone: Comment on above: IOINR3 08-29-2021 10:21-0400 2.8 1 Joleen Herrera Work Phone: [facility] Work Phone: Comment on above: IOIN 08-24-2021 09:20-0400 2.8 1 Joleen Herrera Work Phone: [facility] Work Phone: Comment on above: IOINR3 04-05-2021 12:16-0500 Body height 180.34 cm Joleen Herrrea Work Phone: QM-Nxzafbinoc-VlplcepCHI [facility] [address] Work Phone: 04-05-2021 12:16-0500 Body mass index (BMI) [Ratio] 33.47 kg/m2 Joleen Herrera Work Phone: GW-Fqsszrmgqm-Sntcrit [facility] 4609 Work Phone: 04-05-2021 12:16-0500 Body surface area Derived from formula 2.28 m2 Joleen Herrera Work Phone: QB-Xllgstwspj-Slhvlnr [facility] [address] Work Phone: 04-05-2021 12:16-0500 Body weight 108.86 kg Joleen Herrera Work Phone: YY-Tiuvlhigcw-Gfoszsa [facility] [address] Work Phone: 03-27-2021 17:36-0500 Body temperature 98.06 [degF] Joleen Herrera Other Phone: [facility] 03-27-2021 17:36-0500 Heart rate 81 /min Joleen Herrera Other Phone: [facility] 03-27-2021 17:36-0500 Respiratory rate 18 /min Joleen Herrera Other Phone: [facility] 03-27-2021 17:36-0500 SaO2% (BldA) [Mass fraction] 96 % Joleen Herrera Other Phone: [facility] 03-27-2021 08:00-0500 Body weight 107.3 kg Joleen Herrera Other Phone: [facility] 01-31-2021 12:52-0400 Body height 180.34 cm Joleen Herrera Work Phone: CU-Exttoqgtwe-MJV [facility] [address] [place] Work Phone: 01-31-2021 12:52-0400 Body mass index (BMI) [Ratio] 33.77 kg/m2 Joleen Herrera Work Phone: IS-Aliyyvpouv-DVR [facility] [address] [place] Work Phone: 01-31-2021 12:52-0400 Body surface area Derived from formula 2.29 m2 Joleen Boudreauxsilvianodane Work Phone: GX-Zjrxaxvdrn-XTI [facility] [address] [place] Work Phone: 01-31-2021 12:52-0400 Body weight 109.83 kg Joleen Herrera Work Phone: HZ-Wzrwjfegcy-PTB [facility] [address] [place] Work Phone: 01-31-2021 12:52-0400 0 1 Joleen Herrera Work Phone: OB-Wkzgdlirvi-DPA [facility] [address] [place] Work Phone: Comment on above: [employer] 08-29-2020 16:13-0400 Body mass index (BMI) [Ratio] 37.1 kg/m2 Joleen Herrera Work Phone: SY-Zzqflhpium-FKP [facility] [address] [place] Work Phone: 08-29-2020 16:13-0400 Body surface area Derived from formula 2.38 m2 Joleen Herrera Work Phone: GV-Gkaewdjnge-RND [facility] [address] [place] Work Phone: 08-29-2020 16:13-0400 Body weight 120.66 kg Joleen Herrera Work Phone: WQ-Xujxrnadet-BDL [facility] [address] [place] Work Phone: 08-29-2020 16:13-0400 Heart rate 85 /min Joleen Herrera Work Phone: SC-Vpnxkqvbms-VBA [facility] [address] [place] Work Phone: 08-29-2020 16:13-0400 SaO2% (BldA) [Mass fraction] 92 % Joleen Herrera Work Phone: VG-Inbhtgzixq-XNZ [facility] [address] [place] Work Phone: 01-26-2020 13:07-0400 BMI (Body Mass Index) 37.94 kg/m2 John Mendoza AK-Yjfvauxiwn-MKY [facility] [address] [place] Work Phone: 01-26-2020 13:07-0400 Body weight 123.38 kg John ElAmm MW-Gukoxmwbmk-DJ C [facility] [address] [place] Work Phone: 01-26-2020 13:07-0400 BSA (Body Surface Area) 2.4 m2 John ElAmm MD-Duybbwyioy-YWH [facility] [address] [place] Work Phone: 01-26-2020 13:07-0400 Height 180.34 cm John ElAmm NQ-Zkcdsknsnk-UC C [facility] [address] [place] Work Phone: 01-26-2020 13:07-0400 Pulse (Heart Rate) 76 /min John ElAmm MG-Cardiology -[facility] [address] [place] Work Phone: 01-26-2020 13:07-0400 Pulse Oximetry 97 % John ElAmm MA-Wzuensqxzq-CH C [facility] [address] [place] Work Phone: Comment on above: Source: RA Encounters Encounter Date Encounter Type Care Provider Facility Start: 05-29-2023 End: 05-29-2023 Subsequent hospital visit by physician Mino[employer] [facility] Comment on above: Cardiomyopathy, unsp ecified (CMS/HCC); Presence of automatic (implantable) cardiac defibrillator Start: 05-27-2023 End: 05-27-2023 Subsequent hospital visit by physician [facility] Comment on above: Cardiomyopathy, unsp ecified (CMS/HCC); Presence of automatic (implantable) cardiac defibrillator Start: 05-27-2023 End: 05-27-2023 ambulatory JOLEEN MARILUZ Not Available Start: 05-27-2023 End: 05-27-2023 Office outpatient visit 25 minutes Joleen Herrera [employer] Work Phone: [facility] Comment on above: 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 [place] 5 Comment on above: ICD (implantable car dioverter-defibrillator) discharge (Primary Dx); HFrEF (heart failure with reduced ejection fraction) ([facility]/HCC); History of left ventricular assist device ([facility]/HCC); LVAD (left ventricular assist device) present ([facility]/HCC); Heart failure ([facility]/HCC); Other specified hypothyroidism Start: 04-24-2023 End: 04-24-2023 ambulatory JOLEEN HERRERA Not Available Start: 04-07-2023 End: 04-07-2023 Emergency department patient visit [facility] Facility:[facility] Start: 04-07-2023 End: 04-07-2023 Emergency department patient visit [facility] Start: 02-13-2023 ambulatory [facility] Start: 02-13-2023 End: 02-13-2023 ambulatory [facility] Start: 01-11-2023 End: 01-11-2023 ambulatory JOLEEN HERRERA Facility:[facility] Start: 01-11-2023 End: 01-11-2023 ambulatory Ailyn Friend MD Work Phone: Hematology/Oncology Comment on above: MGUS (monoclonal juan mopathy of unknown significance) (Primary Dx); Stage 3a chronic kidney disease (HCC) Start: 01-11-2023 End: 01-11-2023 Patient encounter procedure Ailyn Friend MD Work Phone: [facility] Start: 01-03-2023 End: 01-03-2023 ambulatory AILYN FRIEND Facility:[facility] Start: 12-14-2022 Rx Renewal Joleen Sri Aichho lz Work Phone: BH-Kftqmvxelm-DFP [facility] [address] [place] Work Phone: Start: 09-18-2022 Telephone encounter Leonel Houser Hematology/Oncology Comment on above: Results Start: 09-12-2022 End: 09-12-2022 ambulatory AILYN FRIEND Facility:[facility] Start: 08-30-2022 End: 08-31-2022 ambulatory CELL [employer]OLOGY SCIENTIST JOLEEN HERRERA Facility:[facility] Start: 08-22-2022 End: 08-23-2022 ambulatory CELL BIOLOGY SCIENTIST JOLEEN HERRERA Facility:[facility] Start: 08-21-2022 End: 08-22-[address] DOCTOR WALKER Facility:[facility] Start: 08-16-2022 Patient encounter procedure Joleen Krishnaz Work Phone: TS-Mrdcuoslbk-RIR [facility] Work Phone: Start: 08-16-2022 BRODIE, Provider : Lainey Renee, Status: Pen, Time: 10:00 AM Joleen Krishnaz Work Phone: IF-Qbwkrptmok-ZQR [facility] [address] [place] Work Phone: Start: 08-16-2022 amb[address] Mrs. Joleen Boudreauxholdane Facility:[facility] Start: 08-15-2022 Office outpatient vi sit 40 minutes Joleen Boudreauxholz Work Phone: JC-Gytcwoxflh-INH [facility] [address] [place] Work Phone: Start: 08-15-2022 [address] Mrs[address] Joleen Fierro Aicsusanholdane Facility:[facility] Start: 05-18-2022 AUDIT Joleen Saunders lz Work Phone: MT-Oxhljsogpr-JMC [facility] [address] [place] Work Phone: Start: 05-17-2022 Rx Renewal Joleen Saunders lz Work Phone: FD-Wzpdrjqemc-XBR [facility] [address] [place] Work Phone: Start: 05-08-2022 End: 05-09-2022 ambulatory JENNIFER HERRERA Facility:[facility] Start: 04-01-2022 End: 04-01-[address] ROBIN GROVE Facility:[facility] Start: 01-30-2022 End: 01-31-2022 ambulatory JENNIFER HERRERA Facility:[facility] Start: 01-25-2022 Patient encounter procedure Joleen Fierro Bamsusanbrant Work Phone: KQ-Aeplkdmxgr-ORK [facility] [address] [place] Work Phone: Start: 01-10-2022 End: 01-10-2022 ambulatory Ailyn Friend MD Work Phone: Hematology/Oncology Comment on above: MGUS (monoclonal juan mopathy of unknown significance) (Primary Dx); Abnormal finding of blood chemistry, unspecified Start: 01-10-2022 End: 01-10-2022 Patient encounter procedure Ailyn Friend MD Work Phone: [facility] Start: 01-03-2022 Telephone encounter Ailyn mark MD Work Phone: Hematology/Oncology Comment on above: Lab Orders Start: 12-26-2021 End: 12-28-2021 Evaluation and management of inpatient [facility] TT05 Rm [id number] Start: 11-02-2021 End: 11-02-2021 ambulatory Jerrell Kraus MD Work Phone: Hematology/Oncology Comment on above: MGUS (monoclonal juan mopathy of unknown significance) (Primary Dx); Absent serum haptoglobin; Thrombocytopenia (HCC) Start: 11-02-2021 End: 11-02-2021 Patient encounter procedure Jerrell Kraus MD Work Phone: [facility] Start: 10-20-2021 End: 10-21-2021 ambulatory JENNIFER HERRERA Facility:H1 Start: 10-18-2021 Rx Renewal Joleen Fierro Bamsusanemely lz Work Phone: XN-Nrdkcxjrid-LGA [facility] [place] Work Phone: Start: 10-05-2021 End: 10-05-2021 ambulatory Jerrell Kraus MD Work Phone: Hematology/Oncology Comment on above: MGUS (monoclonal juan mopathy of unknown significance) (Primary Dx); Absent serum haptoglobin; Thrombocytopenia (HCC) Start: 10-05-2021 End: 10-05-2021 Patient encounter procedure Jerrell Kraus MD Work Phone: [facility] Start: 10-03-2021 Phys/qhp telephone evaluation 21-30 min Joleen Herrera Work Phone: EP-Lvjtffzyah-VJM [facility] [address] [place] Work Phone: Start: 09-28-2021 End: 09-29-[address] TORI GILL Facility:H1 Start: 09-26-2021 End: 09-27-[address] TORI GILL Facility:H1 Start: 09-21-2021 End: 09-21-2021 ambulatory Jerrell Kraus MD Work Phone: Hematology/Oncology Comment on above: MGUS (monoclonal juan mopathy of unknown significance) (Primary Dx); Thrombocytopenia (HCC); Encounter for screening for human immunodeficiency virus (HIV) Start: 09-21-2021 End: 09-21-2021 Patient encounter procedure Jerrell Kraus MD Work Phone: [facility] Start: 09-12-2021 Patient encounter procedure [facility]oleen Herrera Work Phone[facility] Start: 09-06-2021 End: 09-07-2021 ambulatory CELL BIOLOGY SCIENTIST JOLEEN HERRERA Facility:H1 Start: 08-29-2021 Patient encounter procedure Joleen Herrera Work Phone: CM-Cbgncjlzjg-FAH [facility] [address] [place] Work Phone: Start: 08-28-2021 Chart Update Joleen ann Work Phone: SR-Zocruutjhr-HRD [facility] [place] Work Phone: Start: 08-24-2021 ECHO, Provider: [facility] [facility] [facility],MG C[facility], Status: Pen, Time: 11:20 AM Joleen Fierro Januszholz Work Phone: MK-Laxmzajpyd-XRD [facility] [address] [place] Work Phone: Start: 08-24-2021 Patient encounter procedure Joleen Fierro Januszholz Work Phone: WD-Suyvouhlnv-RKG [facility] [address] [place] Work Phone: Start: 08-23-2021 AUDIT Joleen Fierro Nicky lz Work Phone: YU-Gmwrwrxahz-FUK [facility] [address] [place] Work Phone: Start: 04-05-2021 Phys/qhp telephone evaluation 21-30 min Joleen Sri Herrera Work Phone: [facility] Work Phone: Start: 04-05-2021 VIRFUVHOME, Provider : Ju Palacios, Status: Pen, Time: 11:20 AM Joleen Fierro Sharon Work Phone: FY-Cwtwnrcpni-BPP [facility] [address] [place] Work Phone: Start: 04-04-2021 AUDIT Joleen Sri Kuhnhemely lz Work Phone: QC-Dmqxstuppe-KTW [facility] [address] [place] Work Phone: Start: 03-28-2021 AUDIT Joleen Fierro Bamhho lz Work Phone: OQ-Udfwlwrsue-ZFV [facility] [address] [place] Work Phone: Start: 03-27-2021 Patient encounter procedure Joleen Fierro Januszholz Work Phone: AC-Qizeupvtxo-VPO [facility] [address] [place] Work Phone: Start: 03-22-2021 End: 03-27-2021 Evaluation and management of inpatient JOHN EL AMM [facility] TT05 Rm [id number] Start: 03-21-2021 AUDIT Joleen Boudreauxho lz Work Phone: RW-Jaoewdikzh-BDI [facility] [address] [place] Work Phone: Start: 03-14-2021 Rx Renewal Joleen Kuhnemely lz Work Phone: [facility]lux[facility] Work Phone: Start: 02-03-2021 AUDIT Joleen Fierro Aichho lz Work Phone: RW-Wkyphltmob-TPV [facility] [address] [place] Work Phone: Start: 01-31-2021 Office outpatient vi sit 25 minutes Joleen Fierro Bamhholz Work Phone: AN-Yxtwbbtxxi-AAF [facility] [address] [place] Work Phone: Start: 01-31-2021 Patient encounter procedure Joleen Fierro Bamhholz Work Phone: ZN-Qwpgalkkgg-NIH [facility] [address] [place] Work Phone: Start: 10-17-2020 Rx Renewal Joleen Fierro Aichho lz Work Phone: UO-Ogtppuceou-EGM [facility] [address] [place] Work Phone: Start: 09-15-2020 Rx Renewal Joleen Kuhnho lz Work Phone: BK-Jzbtcvueor-OHP [facility] [address] [place] Work Phone: Start: 01-26-2020 Patient encounter procedure John ElAmm NC-Uicrcfuqac-MGR [facility] [address] [place] Work Phone: Start: 12-04-2019 Patient encounter procedure John ElAmm PT-Donvjfebvb-HPK [facility] [address] [place] Work Phone: Start: 08-27-2019 Patient encounter procedure John ElAmm KT-Tnqsskuevw-Hpptkdp Moore Work Phone: Start: 06-16-2019 Patient encounter procedure John ElAmm BF-Rvwsrrzjsl-Wqzlxgk Tineo Work Phone: Start: 01-20-2019 Patient encounter procedure John ElAmm MJ-Wynwqwvqmo-Effvadq [place] Work Phone: Start: 05-08-2018 Patient encounter procedure John ElAmm PJ-Gcluhuklom-Zkwsebv Noman Work Phone: Start: 04-11-2018 End: 04-12-2018 Patient encounter procedure NENA THEA YOUNG Facility:[facility] Start: 02-28-2018 Patient encounter procedure John ElAmm RE-Thgudscvuj-Lcdjwry [place] Work Phone: Start: 12-12-2017 End: 12-13-2017 Patient encounter procedure DEFAULT PHYSICIAN Facility:[facility] Start: 11-29-2017 Patient encounter procedure John ElAmm WG-Udqbqsgnzh-Cwcnktz [place] Work Phone: Start: 11-26-2017 End: 11-27-2017 Patient encounter procedure DEFAULT PHYSICIAN Facility:[facility] Start: 11-14-2017 End: 11-15-2017 Patient encounter procedure DEFAULT PHYSICIAN Facility:[facility] Start: 09-25-2017 Patient encounter procedure John ElAmm VQ-Pbyexuokbg-Bunhobk [place] Work Phone: Start: 08-29-2017 Patient encounter procedure John ElAmm PM-Euecxmcnen-Pauhcvd [place]ine[place] Work Phone: End: 08-29-2017 Patient encounter status Joleen Herrera Work Phone: XZ-Ybvifodvej-BFM [facility] [address] [place] Work Phone: Procedures Date Procedure Procedure Detail Performing Clinician Start: 05-24-2023 Glucose [Mass/volume ] in Serum or Plasma JOLEEN HERRERA Start: 05-24-2023 DISCHARGE PATIENT JOLEEN HERRERA Start: 05-24-2023 Glucose quantitative blood xcpt reagent strip Len Guardado MD Work Phone: Start: 05-24-2023 CBC panel - Blood by Automated count JOLEEN HERRERA Start: 05-24-2023 Lactate dehydrogenas e [Enzymatic activity/volume] in Serum or Plasma JOLEEN AICHHOLZ Start: 05-24-2023 Magnesium [Mass/volu me] in Serum or Plasma JOLEEN AICHHOLZ Start: 05-24-2023 PROTIME-INR JOLEEN AICHH OLZ Start: 05-24-2023 RENAL FUNCTION PANEL NOVA GILMAN AICHHOLZ Start: 05-24-2023 Glucose [Mass/volume ] in Serum or Plasma JOLEEN AICHHOLZ Start: 05-24-2023 Renal function panel Na than P [place] [employer]AGE LINKER-CELL BIOLOGY SCIENTIST Work Phone: Start: 05-24-2023 Glucose quantitative blood xcpt reagent strip Len Guardado MD Work Phone: Start: 05-23-2023 Glucose [Mass/volume ] in Serum or Plasma JOLEEN AICHHOLZ Start: 05-23-2023 Glucose quantitative blood xcpt reagent strip Len Guardado MD Work Phone: Start: 05-23-2023 Glucose [Mass/volume ] in Serum or Plasma JOLEEN AICHHOLZ Start: 05-23-2023 Glucose quantitative blood xcpt reagent strip Len Guardado MD Work Phone: Start: 05-23-2023 Glucose [Mass/volume ] in Serum or Plasma JOLEEN AICHHOLZ Start: 05-23-2023 Glucose quantitative blood xcpt reagent strip Len Guardado MD Work Phone: Start: 05-23-2023 CBC panel - Blood by Automated count JOLEEN AICHHOLZ Start: 05-23-2023 Lactate dehydrogenas e [Enzymatic activity/volume] in Serum or Plasma JOLEEN AICHHOLZ Start: 05-23-2023 Magnesium [Mass/volu me] in Serum or Plasma JOLEEN AICHHOLZ Start: 05-23-2023 PROTIME-INR JOLEEN AICHH OLZ Start: 05-23-2023 RENAL FUNCTION PANEL NOVA SA AICHHOLZ Start: 05-23-2023 XR CHEST 2 VIEWS JOLEEN A ICHHOLZ Start: 05-23-2023 Renal function panel Na than P [place] [employer]USAGE L[employer]ER-CELL BIOLOGY SCIENTIST Work Phone: Start: 05-23-2023 Radiologic exam chest 2 views Wiley Ramos MD Work Phone: Start: 05-23-2023 Glucose [Mass/volume ] in Serum or Plasma JOLEEN AICHHOLZ Start: 05-23-2023 Glucose quantitative blood xcpt reagent strip Len Guardado MD Work Phone: Start: 05-22-2023 Glucose [Mass/volume ] in Serum or Plasma JOLEEN AICHHOLZ Start: 05-22-2023 Glucose quantitative blood xcpt reagent strip Len Guardado MD Work Phone: Start: 05-22-2023 ECG 12-LEAD JOLEEN JANUSZH OLZ Start: 05-22-2023 XR CHEST 1 VIEW JOLEENMickie ORELLANAZ Start: 05-22-2023 Glucose [Mass/volume ] in Serum or Plasma JOLEEN AICHHOLZ Start: 05-22-2023 ELECTROPHYSIOLOGY PROCEDURE JOLEEN AICHHOLZ Start: 05-22-2023 Ecg routine ecg w/le ast 12 lds trcg only w/o i&r Aisha Barger [employer] L[employer]ER-CELL BIOLOGY SCIENTIST Work Phone: Start: 05-22-2023 Radiologic exam ches t single view Wiley Ramos MD Work Phone: Start: 05-22-2023 Glucose quantitative blood xcpt reagent strip Len Guardado MD Work Phone: Start: 05-22-2023 Electrophysiology study Andrew Steele PA-C Work Phone: Start: 05-22-2023 CARDIAC DEVICE CHECK CHECK - INPATIENT JOLEEN AICHHOLZ Start: 05-22-2023 CARDIAC DEVICE CHECK CHECK - INPATIENT Matias Yip MD Work Phone: Start: 05-22-2023 TELEMETRY MONITORING LI SA KRISHNAZ Start: 05-22-2023 Glucose [Mass/volume ] in Serum or Plasma JOLEEN AICHHOLZ Start: 05-22-2023 CBC panel - Blood by Automated count JOLEEN AICHHOLZ Start: 05-22-2023 Lactate dehydrogenas e [Enzymatic activity/volume] in Serum or Plasma JOLEEN AICHHOLZ Start: 05-22-2023 Magnesium [Mass/volu me] in Serum or Plasma JOLEEN AICHHOLZ Start: 05-22-2023 PROTIME-INR JOLEEN AICHH OLZ Start: 05-22-2023 RENAL FUNCTION PANEL NOVA GILMAN AICHHOLZ Start: 05-22-2023 TYPE AND SCREEN JOLEEN AI CHHOLZ Start: 05-22-2023 Blood typing serologic rh (d) Vipin Sawyer [employer]AGE L[employer]ER-CELL BIOLOGY SCIENTIST Work Phone: Start: 05-22-2023 End: 05-22-2023 Renal function panel Vipin Sawyer [employer]AGE L[employer]ER-CELL BIOLOGY SCIENTIST Work Phone: Start: 05-22-2023 Glucose [Mass/volume ] in Serum or Plasma JOLEEN AICHHOLZ Start: 05-21-2023 Glucose quantitative blood xcpt reagent strip Len Guardado MD Work Phone: Start: 05-21-2023 Glucose [Mass/volume ] in Serum or Plasma JOLEEN AICHHOLZ Start: 05-21-2023 Glucose quantitative blood xcpt reagent strip Len Guardado MD Work Phone: Start: 05-21-2023 Glucose [Mass/volume ] in Serum or Plasma JOLEEN AICHHOLZ Start: 05-21-2023 Glucose quantitative blood xcpt reagent strip Len Guardado MD Work Phone: Start: 05-21-2023 TRANSFER PATIENT TO NEW UNIT JOLEEN AICHHOLZ Start: 05-21-2023 CASE REQUEST EP LAB LIS A AICHHOLZ Start: 05-21-2023 Glucose [Mass/volume ] in Serum or Plasma JOLEEN AICHHOLZ Start: 05-21-2023 Lactate dehydrogenas e [Enzymatic activity/volume] in Serum or Plasma JOLEEN AICHHOLZ Start: 05-21-2023 RENAL FUNCTION PANEL NOVA GILMAN AICHHOLZ Start: 05-21-2023 CBC panel - Blood by Automated count JOLEEN AICHHOLZ Start: 05-21-2023 PROTIME-INR OJLEEN AICHH OLZ Start: 05-21-2023 End: 05-21-2023 Renal function panel Kelsen M Lewarchick PA-C Work Phone: Start: 05-21-2023 Lactate dehydrogenas e [Enzymatic activity/volume] in Serum or Plasma JOLEEN AICHHOLZ Start: 05-21-2023 Magnesium [Mass/volu me] in Serum or Plasma JOLEEN AICHHOLZ Start: 05-21-2023 RENAL FUNCTION PANEL NOVA GILMAN AICHHOLZ Start: 05-21-2023 End: 05-21-2023 Renal function panel Vipin Sawyer [employer]USAGE L[employer]ER-CELL BIOLOGY SCIENTIST Work Phone: Start: 05-20-2023 Glucose [Mass/volume ] in Serum or Plasma JOLEEN AICHHOLZ Start: 05-20-2023 Glucose quantitative blood xcpt reagent strip Len Guardado MD Work Phone: Start: 05-20-2023 Glucose [Mass/volume ] in Serum or Plasma JOLEEN AICHHOLZ Start: 05-20-2023 CARDIAC DEVICE CHECK CHECK - INPATIENT JOLEEN AICHHOLZ Start: 05-20-2023 TRANSTHORACIC ECHO ( TTE) COMPLETE JOLEEN AICHHOLZ Start: 05-20-2023 Glucose quantitative blood xcpt reagent strip Len Guardado MD Work Phone: Start: 05-20-2023 Prgrmg eval implanta ble in prsn dual lead dfb Jose Kovacs MD Work Phone: Start: 05-20-2023 Echo tthrc r-t 2d w/ wom-mode compl spec&colr d [place] [employer]AGE LINKER-CELL BIOLOGY SCIENTIST Work Phone: Start: 05-20-2023 ADMIT TO INPATIENT JOLEEN AICHHOLZ Start: 05-20-2023 Glucose [Mass/volume ] in Serum or Plasma JOLEEN AICHHOLZ Start: 05-20-2023 Glucose quantitative blood xcpt reagent strip Len Guardado MD Work Phone: Start: 05-20-2023 OT EVAL AND TREAT JOLEEN AICHHOLZ Start: 05-20-2023 Glucose [Mass/volume ] in Serum or Plasma JOLEEN AICHHOLZ Start: 05-20-2023 Glucose quantitative blood xcpt reagent strip Len Guardado MD Work Phone: Start: 05-20-2023 CBC panel - Blood by Automated count JOLEEN BAMHHOLZ Start: 05-20-2023 Lactate dehydrogenas e [Enzymatic activity/volume] in Serum or Plasma JOLEEN AICHHOLZ Start: 05-20-2023 Magnesium [Mass/volu me] in Serum or Plasma JOLEEN AICHHOLZ Start: 05-20-2023 Natriuretic peptide B [Mass/volume] in Blood JOLEEN AICHHOLZ Start: 05-20-2023 PROTIME-INR JOLEEN BAMHH OLZ Start: 05-20-2023 RENAL FUNCTION PANEL NOVA KUHNHHOLZ Start: 05-20-2023 Renal function panel Na than P [place] [employer]USAGE L[employer]ER-CELL BIOLOGY SCIENTIST Work Phone: Start: 05-19-2023 FULL CODE JOLEEN BOUDREAUXH OLZ Start: 05-19-2023 ELECTRICAL CARDIOVERSION JOLEEN AICHHOLZ Start: 05-19-2023 INSERT ARTERIAL LINE NOVA KUHNHHOLZ Start: 05-19-2023 ELECTRICAL CARDIOVERSION Natty Metz SAUSAGE LINKER-CELL BIOLOGY SCIENTIST Work Phone: Start: 05-19-2023 Glucose [Mass/volume ] in Serum or Plasma JOLEEN AICHHOLZ Start: 05-19-2023 Artl cathj/cannulj mntr/transfusion spx prq Natty Metz [employer]USAGE L[employer]ER-CELL BIOLOGY SCIENTIST Work Phone: Start: 05-19-2023 Basic metabolic 2000 panel - Serum or Plasma JOLEEN AICHHOLZ Start: 05-19-2023 Magnesium [Mass/volu me] in Serum or Plasma JOLEEN AICHHOLZ Start: 05-19-2023 XR CHEST 1 VIEW JOLEEN AI CHHOLZ Start: 05-19-2023 End: 05-19-2023 Basic metabolic panel calcium total Natty Metz SAUSAGE LINKER-CELL BIOLOGY SCIENTIST Work Phone: Start: 05-19-2023 Glucose [Mass/volume ] in Serum or Plasma JOLEEN AICHHOLZ Start: 05-19-2023 Basic metabolic 2000 panel - Serum or Plasma JOLEEN AICHHOLZ Start: 05-19-2023 CALCIUM, IONIZED JOLEEN A ICHHOLZ Start: 05-19-2023 CBC panel - Blood by Automated count JOLEEN JANUSZHOLZ Start: 05-19-2023 COAGULATION SCREEN JOLEEN AICHHOLZ Start: 05-19-2023 Digoxin [Mass/volume ] in Serum or Plasma JOLEEN BAMHHOLZ Start: 05-19-2023 Hemoglobin A1c/Hemoglobin.total in Blood JOLEEN JANUSZHOLDane Start: 05-19-2023 Lactate [Moles/volum e] in Serum or Plasma JOLEEN AICHHOLZ Start: 05-19-2023 Lactate dehydrogenas e [Enzymatic activity/volume] in Serum or Plasma JOLEEN AICHHOLZ Start: 05-19-2023 TSH WITH REFLEX TO F REE T4 IF ABNORMAL JOLEEN JANUSZHOLZ Start: 05-19-2023 TYPE AND SCREEN JOLEEN VELVET KIRK Start: 05-19-2023 Radiologic exam ches t single view Wood Barber SAUSAGE LINKER-[facility] Work Phone: Start: 05-19-2023 IP CONSULT TO ELECTROPHYSIOLOGY JOLEEN HERRERA Start: 05-19-2023 End: 05-19-2023 Basic metabolic panel calcium total Natty Metz [employer]USAGE L[employer]ER-CELL BIOLOGY SCIENTIST Work Phone: Start: 05-19-2023 Drug screen quantita tive digoxin total Wood Barber [employer]AGE L[employer]ER-CELL BIOLOGY SCIENTIST Work Phone: Start: 05-19-2023 Thyrotropin [Units/v olume] in Serum or Plasma Janene Negrete MD PhD Work Phone: Start: 08-30-2022 PSA screening CELL BIOLOGY SCIENTIST JOLEEN BOUDREAUXBRANT Comment on above: Performed By: #### F T4, PSAD #### [facility] [address] [place] [address] Dr. Sonya Mendoza Start: 08-08-2022 Follow-up visit Start: 10-05-2021 Adult depression scr eening assessment Jerrell Kraus MD Work Phone: Start: 08-24-2021 Echocardiography Joleen Herrera Work Phone: Start: 03-23-2021 End: 03-23-2021 Release Blood Product-Packed Red Blood Cells Ju Palacios Start: 03-23-2021 Release Blood Produc t-Packed Red Blood Cells Ju Palacios Start: 03-23-2021 End: 03-23-2021 Release Blood Product-Packed Red Blood Cells Ju Palacios Start: 03-22-2021 End: 03-22-2021 Release Blood Product-Packed Red Blood Cells Torito Watson Start: 03-22-2021 Release Blood Produc t-Packed Red Blood Cells Torito Watson Start: 01-26-2020 Echocardiography Angela l Reji Start: 12-15-2019 Coronavirus 2019 RNA by PCR, Symptomatic Johnsveta Mendoza Start: 12-04-2019 Cardiac Catheterizat ion Lab Procedures John JoviLuke Start: 12-04-2019 Echocardiography Angela l JoviLuke Start: 05-08-2018 Lipid 1996 panel - S elias or Plasma Janene Negrete MD PhD Work Phone: Start: 05-17-2015 Colonoscopy Joleen abel [employer] Work Phone: History of Ventricul ar Assist Device [facility] of Treatment Date Care Activity Detail Author Start: 07-30-2030 DTaP/Tdap/Td Vaccine s (2 - Tdap) DTaP/Tdap/Td Vaccines (2 - Tdap) [facility] Start: 07-30-2030 Urine microalbumin profile [facility] Start: 08-31-2027 PROSTATE CANCER SCREENING DISCUSSION PROSTATE CANCER SCREENING DISCUSSION [facility] Start: 01-03-2026 Diabetes Screening Diabetes Screenin g [facility] Start: 09-12-2025 DIABETES SCREEN DIABETES SCREEN [facility] Start: 05-17-2025 Screening for malign ant neoplasm of colon [facility] Start: 01-03-2025 DIABETES SCREEN DIABETES SCREEN [facility] Start: 10-26-2024 DIABETES SCREEN DIABETES SCREEN [facility] Start: 09-21-2024 DIABETES SCREEN DIABETES SCREEN [facility] Start: 05-24-2024 Creatinine measurement Creatinine Le abe [facility] Start: 05-24-2024 Potassium measurement Potassium Leve l [facility] Start: 05-20-2024 [facility]chocardiography [facility] Start: 05-19-2024 Thyroid stimulating hormone measurement TSH Level [facility] Start: 01-04-2024 Serum Creatinine Serum Creatinine [facility] Start: 09-13-2023 SERUM CREATININE SERUM CREATININE [facility] Start: 08-19-2023 Hemoglobin A1c measurement Diabetes: Hemoglobin A1C [facility] Start: 08-18-2023 Hemoglobin A1c measurement Diabetes: Hemoglobin A1C [facility] Start: 07-02-2023 End: 07-02-2023 Patient encounter procedure 07/02/2023 9:20 AM EDT Office Visit [facility] [address] [address] Joleen Herrera NP [address] [place] [address] [facility] Start: 06-05-2023 End: 06-05-2023 Patient encounter procedure [facility] Start: 05-23-2023 End: 05-23-2024 CBC W Auto Differential panel - Blood CBC and Auto Differential Lab Routine LVAD (left ventricular assist device) present ([facility] Expected: 05/23/2023 (Approximate), Expires: 05/23/2024 [facility] Work Phone: Comment on above: Expected: 05/23/2023 (Approximate), Expires: 05/23/2024 Start: 05-23-2023 End: 05-23-2024 Lactate dehydrogenase [Enzymatic activity/volume] in Serum or Plasma by Lactate to pyruvate reaction Lactate Dehydrogenase Lab Routine LVAD (left ventricular assist device) present ([facility]) Expected: 05/23/2023 (Approximate), Expires: 05/23/2024 [facility] Work Phone: Comment on above: Expected: 05/23/2023 (Approximate), Expires: 05/23/2024 Start: 05-23-2023 End: 05-23-2024 Renal function 2000 panel - Serum or Plasma Renal Function Panel Lab Routine LVAD (left ventricular assist device) present (CMS/HCC) Expected: 05/23/2023 (Approximate), Expires: 05/23/2024 [facility] Work Phone: Comment on above: Expected: 05/23/2023 (Approximate), Expires: 05/23/2024 Start: 05-23-2023 End: 05-23-2024 Thyrotropin [Units/volume] in Serum or Plasma Thyroid Stimulating Hormone Lab Routine LVAD (left ventricular assist device) present (CMS/HCC) Other specified hypothyroidism Expected: 05/23/2023 (Approximate), Expires: 05/23/2024 [facility] Work Phone: Comment on above: Expected: 05/23/2023 (Approximate), Expires: 05/23/2024 Start: 05-13-2023 End: 07-13-2023 CBC W Auto Differential panel - Blood CBC + DIFF Lab Routine MGUS (monoclonal gammopathy of unknown significance) Expected: 05/13/2023 (Approximate), Expires: 07/13/2023 [facility] Work Phone: Comment on above: Expected: 05/13/2023 (Approximate), Expires: 07/13/2023 Start: 05-13-2023 End: 07-13-2023 Comprehensive metabolic 2000 panel - Serum or Plasma COMP METABOLIC PANEL Lab Routine MGUS (monoclonal gammopathy of unknown significance) Expected: 05/13/2023 (Approximate), Expires: 07/13/2023 [facility] Work Phone: Comment on above: Expected: 05/13/2023 (Approximate), Expires: 07/13/2023 Start: 05-13-2023 End: 07-13-2023 MONOCLONAL PROTEIN, SERUM (BLOOD) MONOCLONAL PROTEIN, SERUM (BLOOD) Lab Routine MGUS (monoclonal gammopathy of unknown significance) Expected: 05/13/2023 (Approximate), Expires: 07/13/2023 [facility] Work Phone: Comment on above: Expected: 05/13/2023 (Approximate), Expires: 07/13/2023 Start: 05-13-2023 End: 07-13-2023 PROTEIN ELECTROPHORESIS SERUM W/INTERP PROTEIN ELECTROPHORESIS SERUM W/INTERP Lab Routine MGUS (monoclonal gammopathy of unknown significance) Expected: 05/13/2023 (Approximate), Expires: 07/13/2023 [facility] Work Phone: Comment on above: Expected: 05/13/2023 (Approximate), Expires: 07/13/2023 Start: 02-13-2023 FUVVAD, Provider: Cooper Vaca, Status: Pen, Time: 1:00 PM FUVVAD, Provider: Cooper Vaca, Status: Pen, Time: 1:00 PM [facility] Work Phone: Start: 02-13-2023 LVADFUVSW, Provider: Lainey Renee, Status: Pen, Time: 12:30 PM LVADFUVSW, Provider: Lainey Renee, Status: Pen, Time: 12:30 PM [facility] Work Phone: Start: 12-21-2022 COVID-19 Vaccine ( season) COVID-19 Vaccine ( season) [facility] Start: 12-21-2022 Influenza vaccination C [facility] Start: 12-19-2022 End: 02-18-2023 CBC W Auto Differential panel - Blood CBC + DIFF Lab Routine Multiple myeloma not having achieved remission (HCC) Expected: 12/19/2022 (Approximate), Expires: 02/18/2023 [facility] Work Phone: Comment on above: Expected: 12/19/2022 (Approximate), Expires: 02/18/2023 Start: 12-19-2022 End: 02-18-2023 Comprehensive metabolic 2000 panel - Serum or Plasma COMP METABOLIC PANEL Lab Routine Multiple myeloma not having achieved remission (HCC) Expected: 12/19/2022 (Approximate), Expires: 02/18/2023 [facility] Work Phone: Comment on above: Expected: 12/19/2022 (Approximate), Expires: 02/18/2023 Start: 12-19-2022 End: 02-18-2023 MONOCLONAL PROTEIN, SERUM (BLOOD) MONOCLONAL PROTEIN, SERUM (BLOOD) Lab Routine Multiple myeloma not having achieved remission (HCC) Expected: 12/19/2022 (Approximate), Expires: 02/18/2023 [facility] Work Phone: Comment on above: Expected: 12/19/2022 (Approximate), Expires: 02/18/2023 Start: 12-19-2022 End: 10-18-[address] attenuation whole body NM PET/CT WHOLE BODY INITIAL Radiology Routine Multiple myeloma not having achieved remission (HCC) Monoclonal gammopathy Expected: 12/19/2022 (Approximate), Expires: 10/18/2023 [facility] Work Phone: Comment on above: Expected: 12/19/2022 (Approximate), Expires: 10/18/2023 Start: 12-19-2022 End: 02-18-2023 PROTEIN ELECTROPHORESIS SERUM W/INTERP PROTEIN ELECTROPHORESIS SERUM W/INTERP Lab Routine Multiple myeloma not having achieved remission (HCC) Expected: 12/19/2022 (Approximate), Expires: 02/18/2023 [facility] Work Phone: Comment on above: Expected: 12/19/2022 (Approximate), Expires: 02/18/2023 Start: 10-05-2022 Adult depression screening assessment DEPRESSION SCREENING [facility] Start: 05-12-2022 End: 07-12-2022 CBC W Auto Differential panel - Blood CBC + DIFF Lab Routine MGUS (monoclonal gammopathy of unknown significance) Expected: 05/12/2022 (Approximate), Expires: 07/12/2022 [facility] Work Phone: Comment on above: Expected: 05/12/2022 (Approximate), Expires: 07/12/2022 Start: 05-12-2022 End: 07-12-2022 Comprehensive metabolic 2000 panel - Serum or Plasma COMP METABOLIC PANEL Lab Routine MGUS (monoclonal gammopathy of unknown significance) Expected: 05/12/2022 (Approximate), Expires: 07/12/2022 [facility] Work Phone: Comment on above: Expected: 05/12/2022 (Approximate), Expires: 07/12/2022 Start: 05-12-2022 End: 01-10-2023 Ferritin [Mass/volume] in Serum or Plasma FERRITIN BLD Lab Routine MGUS (monoclonal gammopathy of unknown significance) Abnormal finding of blood chemistry, unspecified Expected: 05/12/2022 (Approximate), Expires: 01/10/2023 [facility] Work Phone: Comment on above: Expected: 05/12/2022 (Approximate), Expires: 01/10/2023 Start: 05-12-2022 End: 01-10-2023 Iron and Iron binding capacity panel - Serum or Plasma IRON + TIBC Lab Routine MGUS (monoclonal gammopathy of unknown significance) Abnormal finding of blood chemistry, unspecified Expected: 05/12/2022 (Approximate), Expires: 01/10/2023 [facility] Work Phone: Comment on above: Expected: 05/12/2022 (Approximate), Expires: 01/10/2023 Start: 05-12-2022 End: 07-12-2022 MONOCLONAL PROTEIN, SERUM (BLOOD) MONOCLONAL PROTEIN, SERUM (BLOOD) Lab Routine MGUS (monoclonal gammopathy of unknown significance) Expected: 05/12/2022 (Approximate), Expires: 07/12/2022 [facility] Work Phone: Comment on above: Expected: 05/12/2022 (Approximate), Expires: 07/12/2022 Start: 05-12-2022 End: 07-12-2022 PROTEIN ELECTROPHORESIS SERUM W/INTERP PROTEIN ELECTROPHORESIS SERUM W/INTERP Lab Routine MGUS (monoclonal gammopathy of unknown significance) Expected: 05/12/2022 (Approximate), Expires: 07/12/2022 [facility] Work Phone: Comment on above: Expected: 05/12/2022 (Approximate), Expires: 07/12/2022 Start: 05-02-2022 FUVVAD, Provider: Cooper Vaca, Status: Pen, Time: 1:40 PM FUVVAD, Provider: Cooper Vaca, Status: Pen, Time: 1:40 PM YI-Bzbdkigjpt-QWP [facility] [address] [place] Work Phone: Start: 04-22-2022 DEPRESSION ASSESSMENT DEPRESSION ASS ESSMENT [facility] Start: 01-02-2022 FUVVAD, Provider: Ju Palacios, Status: Pen, Time: 2:00 PM FUVVAD, Provider: Ju Palacios, Status: Pen, Time: 2:00 PM XL-Fsqtqbkxpx-BAF Hakeem Herrerailifaisal [address] [place] Work Phone: Start: 01-02-2022 Patient encounter procedure [facility] Start: 12-27-2021 FUVVAD, Provider: Cooper Vaca, Status: Pen, Time: 3:00 PM FUVVAD, Provider: Cooper Vaca, Status: Pen, Time: 3:00 PM Anticoagulation Monitoring Service[facility] Work Phone: Start: 12-27-2021 End: 12-28-2022 [facility] Comment on above: :: Must be given gia or to discharge. Order entered from Admission Screen. Give dose at 1800, u nless otherwise specified by physician.Enteral feedings are held 1 hour pre and post dose Start: 12-26-2021 End: 12-27-2022 [facility] Comment on above: IF patient HAS a sec ure IV access & is Unconscious, Conscious, NPO or Unable to Eat or Drink. Repeat until BG reaches 100 mg/dL or greater. Push 2-3 mL/minute IF patient DOES NOT have secure IV access & is Unconscious, Conscious, NPO or Unable to Eat or Drink. Repeat until BG reaches 100 mg/dL or greater May repeat until Blo od Glucose level reaches 100 milligrams/deciliter or greater. Push 2 - 3 milliliters/minute; if patient has secure IV access & Patient is Unconscious, NPO or is unable to eat or drink Start: 12-21-2021 Influenza vaccination INFLUENZA (#1) [facility] Start: 11-02-2021 End: 01-02-2022 CBC W Auto Differential panel - Blood CBC + DIFF Lab Routine MGUS (monoclonal gammopathy of unknown significance) Absent serum haptoglobin Thrombocytopenia (HCC) Expected: 11/02/2021, Expires: 01/02/2022 [facility] Work Phone: Comment on above: Expected: 11/02/2021 , Expires: 01/02/2022 Start: 11-02-2021 End: 01-02-2022 Comprehensive metabolic 2000 panel - Serum or Plasma COMP METABOLIC PANEL Lab Routine MGUS (monoclonal gammopathy of unknown significance) Absent serum haptoglobin Thrombocytopenia (HCC) Expected: 11/02/2021, Expires: 01/02/2022 [facility] Work Phone: Comment on above: Expected: 11/02/2021 , Expires: 01/02/2022 Start: 11-02-2021 End: 01-02-2022 Haptoglobin [Mass/volume] in Serum or Plasma HAPTOGLOBIN BLD Lab Routine MGUS (monoclonal gammopathy of unknown significance) Absent serum haptoglobin Thrombocytopenia (HCC) Expected: 11/02/2021, Expires: 01/02/2022 [facility] Work Phone: Comment on above: Expected: 11/02/2021 , Expires: 01/02/2022 Start: 11-02-2021 End: 01-02-2022 Lactate dehydrogenase [Enzymatic activity/volume] in Serum or Plasma LD LACTATE DEHYDRO Lab Routine MGUS (monoclonal gammopathy of unknown significance) Absent serum haptoglobin Thrombocytopenia (HCC) Expected: 11/02/2021, Expires: 01/02/2022 [facility] Work Phone: Comment on above: Expected: 11/02/2021 , Expires: 01/02/2022 Start: 11-02-2021 End: 01-02-2022 MONOCLONAL PROTEIN, SERUM (BLOOD) MONOCLONAL PROTEIN, SERUM (BLOOD) Lab Routine MGUS (monoclonal gammopathy of unknown significance) Absent serum haptoglobin Thrombocytopenia (HCC) Expected: 11/02/2021, Expires: 01/02/2022 [facility] Work Phone: Comment on above: Expected: 11/02/2021 , Expires: 01/02/2022 Start: 11-02-2021 End: 01-02-2022 PROTEIN ELECTROPHORESIS SERUM W/INTERP PROTEIN ELECTROPHORESIS SERUM W/INTERP Lab Routine MGUS (monoclonal gammopathy of unknown significance) Absent serum haptoglobin Thrombocytopenia (HCC) Expected: 11/02/2021, Expires: 01/02/2022 [facility] Work Phone: Comment on above: Expected: 11/02/2021 , Expires: 01/02/2022 Start: 11-02-2021 End: 01-02-2022 RETIC COUNT RETIC COUNT Lab Routine MGUS (monoclonal gammopathy of unknown significance) Absent serum haptoglobin Thrombocytopenia (HCC) Expected: 11/02/2021, Expires: 01/02/2022 [facility] Work Phone: Comment on above: Expected: 11/02/2021 , Expires: 01/02/2022 Start: 10-26-2021 End: 12-26-2021 CBC W Auto Differential panel - Blood CBC + DIFF Lab Routine MGUS (monoclonal gammopathy of unknown significance) Expected: 10/26/2021 (Approximate), Expires: 12/26/2021 [facility] Work Phone: Comment on above: Expected: 10/26/2021 (Approximate), Expires: 12/26/2021 Start: 10-26-2021 End: 12-26-2021 Comprehensive metabolic 2000 panel - Serum or Plasma COMP METABOLIC PANEL Lab Routine MGUS (monoclonal gammopathy of unknown significance) Expected: 10/26/2021 (Approximate), Expires: 12/26/2021 [facility] Work Phone: Comment on above: Expected: 10/26/2021 (Approximate), Expires: 12/26/2021 Start: 10-26-2021 End: 12-26-2021 Direct antiglobulin test.poly specific reagent [Presence] on Red Blood Cells [facility] DIRECT Blood Bank Routine MGUS (monoclonal gammopathy of unknown significance) Absent serum haptoglobin Expected: 10/26/2021 (Approximate), Expires: 12/26/2021 [facility] Work Phone: Comment on above: Expected: 10/26/2021 (Approximate), Expires: 12/26/2021 Start: 10-26-2021 End: 12-26-2021 Free Hemoglobin [Mass/volume] in Plasma HEMOGLOBIN, PLASMA Lab Routine MGUS (monoclonal gammopathy of unknown significance) Absent serum haptoglobin Expected: 10/26/2021 (Approximate), Expires: 12/26/2021 [facility] Work Phone: Comment on above: Expected: 10/26/2021 (Approximate), Expires: 12/26/2021 Start: 10-26-2021 End: 12-26-2021 MONOCLONAL PROTEIN, SERUM (BLOOD) MONOCLONAL PROTEIN, SERUM (BLOOD) Lab Routine MGUS (monoclonal gammopathy of unknown significance) Expected: 10/26/2021 (Approximate), Expires: 12/26/2021 [facility] Work Phone: Comment on above: Expected: 10/26/2021 (Approximate), Expires: 12/26/2021 Start: 10-26-2021 End: 12-26-2021 PROTEIN ELECTROPHORESIS SERUM W/INTERP PROTEIN ELECTROPHORESIS SERUM W/INTERP Lab Routine MGUS (monoclonal gammopathy of unknown significance) Expected: 10/26/2021 (Approximate), Expires: 12/26/2021 [facility] Work Phone: Comment on above: Expected: 10/26/2021 (Approximate), Expires: 12/26/2021 Start: 10-11-2021 Patient encounter procedure FUVCOAG, Provider: [facility], Status: Pen, Time: 9:15 AM CQ-Pywqirxiqc-LTX [facility] [address] [place] Work Phone: Start: 09-25-2021 FUVVAD, Provider: Ju Palacios, Status: Pen, Time: 1:00 PM FUVVAD, Provider: Ju Palacios, Status: Pen, Time: 1:00 PM VG-Hsdphpeslr-HUV [facility] [address] [place] Work Phone: Start: 09-25-2021 Patient encounter procedure FUVCOAG, Provider: [facility], Status: Pen, Time: 11:30 AM Anticoagulation Monitoring Service-[facility] Work Phone: Start: 09-21-2021 End: 11-21-2021 Haptoglobin [Mass/volume] in Serum or Plasma [facility] Work Phone: Comment on above: Expected: 09/21/2021 , Expires: 11/21/2021 Start: 09-19-2021 End: 11-19-2021 Chronic hepatitis differentiation between hepatitis B and C virus panel - Serum or Plasma HEP REMOTE PANEL BL Lab Routine MGUS (monoclonal gammopathy of unknown significance) Thrombocytopenia (HCC) Expected: 09/19/2021, Expires: 11/19/2021 [facility] Work Phone: Comment on above: Expected: 09/19/2021 , Expires: 11/19/2021 Start: 09-19-2021 End: 11-19-2021 HIV 1+2 Ab [Presence] in Serum or Plasma by Immunoassay HIV 1 2 COMBO(AG/AB),WITH REFLEX TO DIFFERENTIATION Lab Routine MGUS (monoclonal gammopathy of unknown significance) Thrombocytopenia (HCC) Encounter for screening for human immunodeficiency virus (HIV) Expected: 09/19/2021, Expires: 11/19/2021 [facility] Work Phone: Comment on above: Expected: 09/19/2021 , Expires: 11/19/2021 Start: 09-19-2021 End: 11-19-2021 MONOCLONAL PROT UR W/INTERP MONOCLONAL PROT UR W/INTERP Lab Routine MGUS (monoclonal gammopathy of unknown significance) Thrombocytopenia (HCC) Expected: 09/19/2021, Expires: 11/19/2021 [facility] Work Phone: Comment on above: Expected: 09/19/2021 , Expires: 11/19/2021 Start: 09-19-2021 End: 11-19-2021 MONOCLONAL PROTEIN, SERUM (BLOOD) MONOCLONAL PROTEIN, SERUM (BLOOD) Lab Routine MGUS (monoclonal gammopathy of unknown significance) Thrombocytopenia (HCC) Expected: 09/19/2021, Expires: 11/19/2021 [facility] Work Phone: Comment on above: Expected: 09/19/2021 , Expires: 11/19/2021 Start: 09-19-2021 End: 11-19-2021 PROTEIN ELECTROPHORESIS SERUM W/INTERP PROTEIN ELECTROPHORESIS SERUM W/INTERP Lab Routine MGUS (monoclonal gammopathy of unknown significance) Thrombocytopenia (HCC) Expected: 09/19/2021, Expires: 11/19/2021 [facility] Work Phone: Comment on above: Expected: 09/19/2021 , Expires: 11/19/2021 Start: 08-29-2021 Patient encounter procedure FUVCOAG, Provider: [facility], Status: Pen, Time: 10:15 AM [facility]tico[facility] [place]: Start: 2021 COVID-19 VACCINE (4 - Booster for Pfizer series) COVID-19 VACCINE (4 - Booster for Pfizer series) [facility] Start: 07-26-2021 ECHO, Provider: LI BLUEI 1,MG CARD, Status: Pen, Time: 10:40 AM ECHO, Provider: LI NANCE HHVI 1,[facility] CARD, Status: Pen, Time: 10:40 AM [facility] Work Phone: Start: 06-29-2021 LVADFUVSW, Provider: Eli Jimenez, Status: Pen, Time: 3:00 PM LVADFUVSW, Provider: Eli Jimenez, Status: Pen, Time: 3:00 PM [facility] [address] Work Phone: Start: 06-29-2021 FUVVAD, Provider: Ju Palacios, Status: Pen, Time: 2:00 PM FUVVAD, Provider: Ju Palacios, Status: Pen, Time: 2:00 PM [facility] Work Phone: Start: 06-29-2021 ECHO, [place]: [facility]KE[place] BLUEI 2,[facility] CARD, Status: Pen, Time: 12:50 PM ECHO, Provider: [facility]KEEM [facility]VI 2,[facility] CARD, Status: Pen, Time: 12:50 PM [facility] [address] Work Phone: Start: 06-01-2021 COVID-19 VACCINE (4 - Booster for Pfizer series) COVID-19 VACCINE (4 - Booster for Pfizer series) [facility] Start: 06-01-2021 Covid-19 Vaccine (4 - Pfizer series) Covid-19 Vaccine (4 - Pfizer series) [facility] Start: 04-22-2021 DEPRESSION ASSESSMENT DEPRESSION ASS ESSMENT [facility] Start: 04-05-2021 Patient encounter procedure [facility] [facility] Start: 04-05-2021 BRODIE, Provider : Ju Palacios, Status: Pen, Time: 11:20 AM BRODIE, Provider: Ju Palacios, Status: Pen, Time: 11:20 AM PO-Evkvcjgcnq-MMD [facility] [address] [place] Work Phone: Start: 03-27-2021 BRODIE, Provider : Ju Palacios, Status: Pen, Time: 2:00 PM BRODIE, Provider: Ju Palacios, Status: Pen, Time: 2:00 PM PX-Smhmtpifgm-LTR [facility] [address] [place] Work Phone: Start: 03-25-2021 End: 03-26-2022 Torsemide 20 mg Oral Tablet Daily ; Tablet (DEMADEX)DOSE = 20 mg Oral Daily, PRN weight gain of 3 lbs in 2 days Start: 25-Mar-2021 End: 25-Mar-2022 Ordered: 25-Mar-[address] [facility] Start: 03-24-2021 End: 03-25-2022 Warfarin 0ral Tablet to select days of week dosing ; Tablet (COUMADIN)DOSE = 3 mg Oral ( every 1 week: Sat/18:00, 18:00 )Clinician Notes: Give dose at 1800, unless otherwise specified by physician.Enteral feedings are held 1 hour pre and post doseNotes from Pharmacy: Reproductive Risk- Single Nitrile GloveRCRA Start: 24-Mar-2021 End: 24-Mar-2022 Ordered: 24-Mar-2021 Ju Palacois Intent Comments: Give dose at 1800, unless otherwise specified by physician.Enteral feedings are held 1 hour pre and post dose [facility] Comment on above: Give dose at 1800, u nless otherwise specified by physician.Enteral feedings are held 1 hour pre and post dose Start: 03-23-2021 End: 03-23-2022 [facility] Comment on above: IF patient HAS a sec ure IV access & is Unconscious, Conscious, NPO or Unable to Eat or Drink. Repeat until BG reaches 100 mg/dL or greater. Push 2-3 mL/minute. Discontinue once BG reaches 100 mg/dL or greater. IF patient DOES NOT have secure IV access & is Unconscious, Conscious, NPO or Unable to Eat or Drink. Repeat until BG reaches 100 mg/dL or greater. Discontinue once BG reaches 100 mg/dL or greater. Start: 03-09-2021 FUVVAD, Provider: Ju Palacios, Status: Pen, Time: 1:00 PM FUVVAD, Provider: Ju Palacios, Status: Pen, Time: 1:00 PM PF-Xqqgxurvvc-LZG [facility] [address] [place] Work Phone: Start: 03-07-2021 FUVVAD, Provider: Ju Palacios, Status: Pen, Time: 2:00 PM FUVVAD, Provider: Ju Palacios, Status: Pen, Time: 2:00 PM MH-Rfaathewhw-OSD [facility] [address] [place] Work Phone: Start: 11-29-2020 FUVVAD, Provider: Ju Palacios, Status: Pen, Time: 10:00 AM FUVVAD, Provider: Ju Palacios, Status: Pen, Time: 10:00 AM IN-Njragbeqvv-OGP [facility] [address] [place] Work Phone: Start: 01-26-2020 Echocardiography Echocardiogram MG-C ardiology-[facility] [address] [place] Work Phone: Start: 05-08-2019 Lipid panel Lipid Panel [facility] Start: 04-17-2019 Pneumococcal Vaccine : Pediatrics (0 to 5 Years) and At-Risk Patients (6 to 64 Years) (2 - PPSV23 or PCV20) Pneumococcal Vaccine: Pediatrics (0 to 5 Years) and At-Risk Patients (6 to 64 Years) (2 - PPSV23 or PCV20) [facility] Start: 2016 PROSTATE CANCER SCREENING DISCUSSION PROSTATE CANCER SCREENING DISCUSSION [facility] Start: 08-06-2011 Influenza vaccination LUNG CANCER [facility] Start: 08-06-2011 Screening for malign ant neoplasm of lung Lung Cancer Screening [facility] Start: 08-06-2011 SHINGRIX VACCINE (1 of 2) SHINGRIX VACCINE (1 of 2) [facility] Start: 2006 COLOGUARD (FIT-DNA) COLOGUARD (FIT-D NA) [facility] Start: 2006 Colonoscopy COLONOSCOPY [facility] Start: 2006 COLORECTAL CANCER SCREENING COLORECTAL CANCER SCREENING [facility] Start: [address] COLONOGRAPHY [facility] Start: 2006 FECAL OCCULT BLOOD FECAL OCCULT BLOO D [facility] Start: 2006 SIGMOIDOSCOPY SIGMOIDOSCOPY [facility] Start: 1996 Lipid 1996 panel - Serum or Plasma Lipid Screening [facility] Start: 1996 LIPID SCREEN LIPID SCREEN [facility] Start: 1980 Urine microalbumin profile DTAP,TDAP,TD (1 - Tdap) [facility] Start: 1980 Urine screening for protein Diabetes: Urine Protein Screening [facility] Start: 1980 Zoster Vaccines (1 o f 2) Zoster Vaccines (1 of 2) [facility] Start: 08-06-1979 ANNUAL PCP TEAM PRODUCTION ESTIMATOR WILL DISEASE VISIT ANNUAL PCP TEAM CHRONIC DISEASE VISIT [facility] Start: 08-06-1979 HEPATITIS C SCREENING HEPATITIS C [facility] Start: 08-06-1979 Hepatitis C screening Hepatitis C [facility] Start: 08-06-1979 HIV SCREENING HIV SCREENING [facility] Start: 1973 Adult depression screening assessment DEPRESSION SCREENING [facility] Start: 08-06-1971 Diabetic foot examination Diabetes: Foot Exam [facility] Start: 08-06-1971 Glaucoma screening Diabetes: R etinopathy Screening [facility] Start: 1962 MMR Vaccines (1 of 1 - Standard series) MMR Vaccines (1 of 1 - Standard series) [facility] Start: 1961 HIV screening HIV Screening [facility] Start: 1961 Medicare Annual Wellness (AWV) Medicare Annual Wellness (AWV) [facility] Start: 1961 Medicare Annual Wellness Visit Medicare Annual Wellness Visit (AWV) [facility] Start: 1961 Screening for malign ant neoplasm of colon [facility] End: 05-22-2023 Cardiac Device Check - In Clinic Cardiac Device Check - In Clinic Implantable Cardiac Device Routine Heart failure (CMS/HCC) Once for 1 Occurrences starting 05/22/2023 until 05/22/2023 [facility] Service Area Work Phone: Comment on above: Once for 1 Occurrenc es starting 05/22/2023 until 05/22/2023 Cardiac Device Check - Inpatient Cardiac Device Check - Inpatient Implantable Cardiac Device Routine ICD (implantable cardioverter-defibrilla tor) discharge HFrEF (heart failure with reduced ejection fraction) (CMS/HCC) 05/22/2023 2:35 PM EST [facility] Work Phone: End: 05-27-2023 Cardiac device check - Remote [facility] Work Phone: Comment on above: Once for 1 Occurrenc es starting 05/27/2023 until 05/27/2023 End: 05-29-2023 Cardiac device check - Remote [facility] Work Phone: Comment on above: Once for 1 Occurrenc es starting 05/29/2023 until 05/29/2023 CBC panel - Blood by Automated count CBC Lab Routine Morning draw (Lab) until discontinued starting 05/20/2023, 5 completed [facility] Work Phone: Comment on above: Morning draw (Lab) u ntil discontinued starting 05/20/2023, 5 completed Chronic hepatitis differentiation between hepatitis B and C virus panel - Serum or Plasma HEP REMOTE PANEL BL Lab Routine MGUS (monoclonal gammopathy of unknown significance) Thrombocytopenia (HCC) 09/21/2021 12:04 PM EDT [facility] Work Phone: ECG 12 Lead ECG 12 Lead ECG Routine 05/22/2023 6:33 PM EST [facility] Work Phone: Glucose [Mass/volume ] in Serum or Plasma [facility] Service [facility] Work Phone: Comment on above: 4x daily - AC and at bedtime until discontinued starting 05/19/2023 As needed (Lab) unti l discontinued starting 05/19/2023 HIV 1+2 Ab [Presence ] in Serum or Plasma by Immunoassay HIV 1 2 COMBO(AG/AB),WITH REFLEX TO DIFFERENTIATION Lab Routine MGUS (monoclonal gammopathy of unknown significance) Thrombocytopenia (HCC) Encounter for screening for human immunodeficiency virus (HIV) 09/21/2021 12:04 PM EDT [facility] Work Phone: Lactate dehydrogenas e [Enzymatic activity/volume] in Serum or Plasma by Lactate to pyruvate reaction Lactate Dehydrogenase Lab Routine Morning draw (Lab) until discontinued starting 05/20/2023, 5 completed [facility] Work Phone: Comment on above: Morning draw (Lab) u ntil discontinued starting 05/20/2023, 5 completed Magnesium [Mass/volu me] in Serum or Plasma Magnesium Lab Routine Morning draw (Lab) until discontinued starting 05/20/2023, 5 completed [facility] Work Phone: Comment on above: Morning draw (Lab) u ntil discontinued starting 05/20/2023, 5 completed MONOCLONAL PROT UR W/INTERP MONOCLONAL PROT UR W/INTERP Lab Routine MGUS (monoclonal gammopathy of unknown significance) Thrombocytopenia (HCC) 09/21/2021 1:04 PM EDT [facility] Work Phone: MONOCLONAL PROTEIN, SERUM (BLOOD) MONOCLONAL PROTEIN, SERUM (BLOOD) Lab Routine MGUS (monoclonal gammopathy of unknown significance) Thrombocytopenia (HCC) 09/21/2021 12:04 PM EDT [facility] Work Phone: PROTEIN ELECTROPHORE SIS SERUM W/INTERP PROTEIN ELECTROPHORESIS SERUM W/INTERP Lab Routine MGUS (monoclonal gammopathy of unknown significance) Thrombocytopenia (HCC) 09/21/2021 12:04 PM EDT [facility] Work Phone: Prothrombin time (PT) Protime-IN R Lab Routine Morning draw (Lab) until discontinued starting 05/20/2023, 5 completed [facility] Work Phone: Comment on above: Morning draw (Lab) u ntil discontinued starting 05/20/2023, 5 completed End: 10-21-2022 Radiologic examination osseous survey compl XR BONE SURVEY ROUTINE Radiology Routine MGUS (monoclonal gammopathy of unknown significance) Thrombocytopenia (HCC) Encounter for screening for human immunodeficiency virus (HIV) 1 Occurrences starting 09/21/2021 until 10/21/2022 [facility] Work Phone: Comment on above: 1 Occurrences starti ng 09/21/2021 until 10/21/2022 Renal function 2000 panel - Serum or Plasma Renal function panel Lab Routine Morning draw (Lab) until discontinued starting 05/20/2023, 5 completed [facility] Work Phone: Comment on above: Morning draw (Lab) u ntil discontinued starting 05/20/2023, 5 completed End: 10-21-2022 Us abdominal real time w/image limited [facility] Work Phone: Comment on above: 1 Occurrences starti ng 09/21/2021 until 10/21/2022 RH-Mientjagdl-S [facility] [address] [place] Work Phone: [facility] NEGATED: Highlighted row has been ruled out! Planned Goals not documented WB-Jzpzbdzuup-XLF [facility] [address] [place] Work Phone: Immunizations Immunization Date Immunization Notes [facility]21 Pfizer-BioNTech COVI D-19 Vacc 30 MCG/0.3ML Intramuscular Suspension Joleen Herrera Work Phone: [facility] 01-20-2021 influenza, injectabl e, quadrivalent, contains preservative Joleen Herrera Work Phone: [facility] 01-20-2021 influenza virus vacc ine, unspecified formulation Ailyn Friend MD Work Phone: [facility] 07-30-2020 diphtheria, tetanus toxoids and pertussis vaccine Joleenmickie Kuhnpanchodane Work Phone: [facility] 07-13-2020 Pfizer-BioNTech COVI D-19 Vacc 30 MCG/0.3ML Intramuscular Suspension [facility] Work Phone: [facility] Comment on above: Series: 06-22-2020 Pfizer-BioNTech COVI D-19 Vacc 30 MCG/0.3ML Intramuscular Suspension Joleen [facility] Work Phone: [facility] Comment on above: Series: 01-14-2020 influenza, injectabl e, quadrivalent, contains preservative [facility] Work Phone: [facility] 02-20-2019 pneumococcal conjuga te vaccine, 13 valent [facility]en Jo [facility] Work Phone: [facility] 02-05-2018 influenza, injectabl e, quadrivalent, contains preservative [facility] Work Phone: [facility] 02-13-2017 influenza, injectabl e, quadrivalent, contains preservative [facility] Work Phone: [facility] 01-17-2016 influenza, injectabl e, madin lorne canine kidney, preservative free [facility] Work Phone: IC-Sgwspvpbqq-HRU [facility] [address] [place] Work Phone: Payers Date Payer Category Payer Medicaid MEDICAID MEDICAI D [id number] 2019-Present [address] [place] [address] [id number] 2019 Medicaid [id number] 2016 Unknown [id number] 2012 Medicare MEDICARE MEDICAR E A AND B [id number] 2012-Present [phone] [address] [address] [place] [address] Medicare [id number] 2012 Medicare [id number] 1.13.159.2.7.3.6 [id number] 1961 Unknown [id number] 2.16.840.1.396017.3.579.2.647 1960 Unknown [id number] 2.16.840.1.594083.3.579.2.647 1961 Unknown [id number] 2.16.840.1.030477.3.579.2.647 1961 Unknown [id number] 2.16.840.1.653529.3.579.2.647 1961 Unknown [id number] 2.16.840.1.877899.3.579.2.593 1961 Unknown [id number] 2.16.840.1.346465.3.579.2.593 1961 Unknown [id number] 2.16.840.1.222148.3.579.2.593 1961 Unknown [id number] 2.16.840.1.945706.3.579.2.593 1961 Unknown [id number] 2.16.840.1.892180.3.579.2.593 1961 Unknown [id number] 2.16.840.1.908244.3.579.2.593 1961 Unknown [id number] 2.16.840.1.235401.3.579.2.593 1961 Unknown [id number] 2.16.840.1.441019.3.579.2.593 1961 Unknown [id number] 2.16.840.1.295513.3.579.2.593 1961 Unknown [id number] 2.16.840.1.388581.3.579.2.593 1961 Unknown [id number] 2.16.840.1.958120.3.579.2.593 1961 Unknown [id number] 2.16.840.1.518152.3.579.2.727 1961 Unknown [id number] 2.16.840.1.771037.3.579.2.1259 1961 Unknown [id number] 2.16.840.1.015125.3.579.2.1245 1961 Unknown [id number] 2.16.840.1.918391.3.579.2.1245 1961 Unknown [id number] 2.16.840.1.250368.3.579.2.1245 1961 Unknown [id number] 2.16.840.1.391562.3.579.2.1245 1961 Unknown [id number] 2.16.840.1.684496.3.579.2.356 1961 Unknown [id number] 2.16.840.1.062579.3.579.2.356 1958 Medicare [id number] 1958 Self-pay [id number] Medicare [id number] Unknown Social History Date Type Detail Facility Start: 09-19-2021 End: 05-23-2023 Activities of daily living (ADL's), independent Activities of daily living (ADL's), independent [facility] Tobacco smoking consumption unknown [facility] Start: 09-19-2021 End: 05-19-2023 Tobacco smoking status NHIS Ex-smoker [facility] End: 04-22-2010 History of tobacco use Current smoker [facility] End: 04-22-2010 History of tobacco use Cigarette Smoker [facility] Start: 09-19-2021 End: 05-19-2023 Tobacco use and exposure Smokeless tobacco non-user [facility] Start: 09-21-2021 End: 01-11-2023 Alcohol intake Ex-drinker (finding) [facility] Start: 1960 Sex Assigned At Not on file [facility] Start: 09-11-2021 End: 05-22-2023 Exposure to SARS-CoV-2 (event) Not sure [facility] History of tobacco use Passive smoker [facility] Start: 01-11-2023 End: 05-23-2023 Tobacco use panel [facility] Adult Depression Screening Assessment 0 [facility] Start: 05-24-2023 Alcohol intake Current drinke r of alcohol (finding) [facility] Work Phone: Has the [employer], [employer], or [employer] threatened to shut off services in your home in past 12Mo No [facility] Do you belong to any clubs or organizations such as sikhism groups, unions, fraternal or athletic groups, or school groups? Yes [facility] Work Phone: How often to you hav e a drink containing alcohol? Never [facility] Work Phone: Do you feel stress - tense, restless, nervous, or anxious, or unable to sleep at night because your mind is troubled all the time - these days [OSQ] Not at all [facility] Work Phone: (I/We) worried wheth er (my/our) food would run out before (I/we) got money to buy more. Never true [facility] Work Phone: NEGATED: Highlighted row - - RW-Kwocjrksur-Kirdmq s [facility] Work Phone: Medical Equipment Procedure Code Equipment Code Equipment Origin al Text Equipment Identifier Dates BD Pen Needle Mi ni U/F 31G X 5 MM Quantity: 100 Refills: 0 Start : 06-Oct-2016 Active Start: 10-06-2016 BD Pen Needle Mi ni U/F 31G X 5 MM Quantity: 100 Refills: 0 Start : 06-Oct-2016 Active Start: 10-06-2016 Defibrillator, I cd, Dual Chamber, Vahe Zimmerman [id number] Start: 05-22-2023 2 30_imp Start: 08-23-2016 USE UP TO 6 TIME S DAILY FOR INJECTIONS [id number] Start: 08-15-2022 USE UP TO 6 TIME S DAILY FOR INJECTIONS [id number] Start: 08-15-2022 Functional Status Date Assessment Result Facility 04-07-2023 Functional Status N/A [facility] Functional observable [facility] NEGATED: Highlighted row Functional performance Functional status health issues are not documented Disease OB-Ulbhkjibsw-Guzgzw s [facility] Work Phone: Mental Status Date Assessment Result Facility 12-28-2021 Cognitive functi ons [id number] [facility] 03-27-2021 Cognitive functi ons [id number] [facility] NEGATED: Highlighted row Cognitive function [Interpretation] Cognitive status health issues are not documented Disease LT-Xgmponyahj-Jldtrb [employer] Work Phone: Clinical Notes 08-20-2013 to 05-27-2023 Joleen Herrera NP - 05/27/2023 9:49 AM Shefali Herrera, BHAVNA - 05/27/2023 9:49 AM Shefali Herrera NP - 05/27/2023 9:48 AM Shefali Herrera NP - 05/27/2023 9:47 AM EST Note Date & Type Note Facility 05-27-2023 History of Present illness Narrative Associated Problem(s): History of implantable cardioverter-defibrillator (ICD) insertion Continue with cardiology Associated Problem(s): Type 2 diabetes mellitus, with long-term current use of insulin ([facility]) Is now being compliant with use insulin daily doses and coverage A1c 8.9%, will fu in 4 weeks for recheck and with blood glucose readings as well No changes in doses, as he was not compliant with use of insulin steadily Associated Problem(s): Cardiac dysrhythmia Recent hospitalization with has new pacemaker /AICD placed Associated Problem(s): Chronic systolic heart failure (CMS/HCC) Continue with cardiology and current meds Last Saturday old pacemaker shocked pt 3x went to the hospital got a new pace maker got home Saturday evening [facility] Got to the hospital and his heart completely stopped pumping Images from the original note were not included. Terry Villalpando is a 62 y.o. male presents with chief complaint of No chief complaint on file. HPI: Here for a fu , had hospitalization d/t AICD that continued to fire, he had his pacemaker replaced as well He states he is feeling much better He is now checking his sugars daily as directed and taking his insulin as direcected, A1c was 8.9% SUBJECTIVE: MEDICATIONS: Current Outpatient Medications Medication Instructions amiodarone (Pacerone) 400 MG tablet aspirin 81 mg, Oral, Daily B-D ULTRAFINE III SHORT PEN 31G X 8 MM misc USE UP TO 6 TIMES DAILY FOR INJECTIONS Basaglar KwikPen 30 Units, Subcutaneous, 2 times daily carvedilol (COREG) 6.25 mg, Oral, 2 times daily cephalexin (Keflex) 500 MG capsule cholecalciferol (VITAMIN D-3) 2,000 Units, Oral, Daily Digoxin (LANOXIN) 125 mcg, Oral, Daily Farxiga 10 mg, Oral, Every morning fluticasone (Flonase) 50 MCG/ACT nasal spray 2 sprays, Each Nostril, Daily gabapentin (NEURONTIN) 300 mg, Oral, 2 times daily levothyroxine (SYNTHROID, LEVOXYL) 100 mcg, Oral, Daily lisinopril 5 mg, Oral, Daily loratadine (CLARITIN) 10 mg, Oral, Daily mupirocin (Bactroban) 2 % ointment 1 application , Topical, 3 times daily RT, % pantoprazole (ProtoNix) 40 MG EC tablet rosuvastatin (CRESTOR) 10 mg, Oral, Daily spironolactone (ALDACTONE) 25 mg, Oral, Daily torsemide (DEMADEX) 20 mg, Oral, Daily warfarin (COUMADIN) 4 mg, Oral, Daily ALLERGIES: No Known Allergies REVIEW OF SYMPTOMS: Review of Systems Constitutional: Negative. Negative for activity change, appetite change, chills, fatigue, fever and unexpected weight change. HENT: Negative for congestion, ear pain, rhinorrhea, sinus pressure and sore throat. Eyes: Negative. Negative for pain, discharge and visual disturbance. Respiratory: Negative. Negative for cough, chest tightness and shortness of breath. Cardiovascular: Positive for leg swelling. Negative for palpitations. Gastrointestinal: Negative. Negative for abdominal pain, constipation, diarrhea, nausea and vomiting. Genitourinary: Negative. Negative for decreased urine volume, flank pain and hematuria. Musculoskeletal: Negative. Negative for arthralgias, back pain, joint swelling and myalgias. Skin: Negative for color change, rash and wound. Neurological: Negative. Negative for dizziness, tremors, weakness, numbness and headaches. Psychiatric/Behavioral: Negative. Negative for agitation, hallucinations, sleep disturbance and suicidal ideas. The patient is not nervous/anxious. Hematological: Negative. Negative for adenopathy. Does not bruise/bleed easily. Endocrine: Negative. Negative for polydipsia, polyphagia and polyuria. Allergic/Immunologic: Negative. Negative for environmental allergies. PAST MEDICAL HISTORY Past Medical History: Diagnosis Date Acquired hypothyroidism (CMS/HCC) 04/10/2023 Bilateral lower extremity edema 04/10/2023 Cardiac dysrhythmia Chronic systolic heart failure (CMS/HCC) 04/10/2023 COPD (chronic obstructive pulmonary disease) (CMS/HCC) 05/27/2023 Diabetes (CMS/HCC) 04/10/2023 History of implantable cardioverter-defibrillator (ICD) insertion 05/27/2023 AICD insertion Hyperlipidemia (CMS/HCC) Hypertension (CMS/HCC) Mixed hyperlipidemia (CMS/HCC) 04/10/2023 Stage 3b chronic kidney disease (HCC) (CMS/HCC) 04/10/2023 Vitamin D deficiency 04/24/2023 Past Surgical History: Procedure Laterality Date APPENDECTOMY 1989 CARDIAC DEFIBRILLATOR PLACEMENT AICD insertion family history includes Diabetes in his mother; Seizures in his mother. OBJECTIVE: Visit Vitals Pulse 83 Temp 97.5 F (Temporal) Resp 17 Ht 5' 11.5 Wt 243 lb 3.2 oz SpO2 94% BMI 33.45 kg/m Smoking Status Never Assessed BSA 2.36 m Physical Exam Vitals reviewed. Constitutional: General: He is not in acute distress. Appearance: He is obese. He is not toxic-appearing or diaphoretic. HENT: Head: Normocephalic. Right Ear: External ear normal. Left Ear: External ear normal. Nose: Nose normal. Mouth/Throat: Mouth: Mucous membranes are moist. Pharynx: Oropharynx is clear. Eyes: Extraocular Movements: Extraocular movements intact. Conjunctiva/sclera: Conjunctivae normal. Cardiovascular: Comments: Only can hear the hum of LVAD device Pulmonary: Effort: Pulmonary effort is normal. Breath sounds: Normal breath sounds. Abdominal: General: Bowel sounds are normal. Palpations: Abdomen is soft. Musculoskeletal: Cervical back: Neck supple. Right lower leg: Right lower leg edema: trace. Left lower leg: Edema (trace) present. Skin: General: Skin is warm and dry. Capillary Refill: Capillary refill takes 2 to 3 seconds. Comments: Discolored lower extremities c/w venous insuffiency Neurological: General: No focal deficit present. Mental Status: He is alert. Psychiatric: Mood and Affect: Mood normal. Behavior: Behavior normal. Thought Content: Thought content normal. Judgment: Judgment normal. ASSESSMENT AND PLAN: No follow-ups on file. Problem List Items Addressed This Visit BMI 33.0-33.9,adult documented in this encounter [facility] 05-24-2023 Nurse Note Patient discharged home from [facility] this afternoon. Patient was taken off telemetry monitoring and IV were removed intact. Discharge instructions were given to and reviewed with patient at bedside. Meds to beds were delivered. Patient was taken off floor in wheelchair by patient transport. All belongings and LVAD equipment present with patient. Esther Pugh RN [facility] 05-24-2023 Nurse Note Patient discharged home from [facility] this afternoon. Patient was taken off telemetry monitoring and IV were removed intact. Discharge instructions were given to and reviewed with patient at bedside. Meds to beds were delivered. Patient was taken off floor in wheelchair by patient transport. All belongings and LVAD equipment present with patient. Esther Pugh RN VAD Note Name: Terry Villalpando Admission Date: 05/19/2023 11:50 AM Attending Provider: Len Guardado MD Room/Bed: 5083/5083-A Sex: male : 1960 Age: 62 y.o. VAD Readmission Readmission Checklist Readmission Checklist: Yes Code Status Reviewed: Yes Code Status Ordered: Yes RPM Speed Set Point: 9600 Low Speed Limit: 9200 Anticoagulation Goals Entered: Yes Event Monitor Checked: Yes Driveline Secure: Yes Driveline Site Assessed and Photographed: Yes Dressing Change Natalie: Weekly ICD: Nurse to Check Device Upon Admission: On HeartMate Serial Numbers HeartMate Equipment Tracking/Serial Numbers Psychotherapist Social Worker: car newspaper journalist Battery Clip 1: [id number] Battery Clip 2: [id number] Rechargeable Battery 1: [id number] Rechargeable Battery 2: [id number] Rechargeable Battery 3: [id number] Rechargeable Battery 4: [id number] Go Gear Vest: yes Programmed Backup Tattoo Identifier: [id number] Primary Controller: [id number] Black Emergency Red Tag Bag: yes HeartMate Tracking HeartMate Equipment Transfer Transfer From: Heart Failure Unit Transfer To: [place] [address] Psychotherapist Social Worker: No Battery Clip 1: Yes Battery Clip 2: Yes Battery Clip 3: No Battery Clip 4: No Rechargeable Battery 1: Yes Rechargeable Battery 2: Yes Rechargeable Battery 3: Yes Rechargeable Battery 4: Yes Rechargeable Battery 5: No Rechargeable Battery 6: No Rechargeable Battery 7: No Rechargeable Battery 8: No Go Gear Consolidated Bag: No Go Gear Accessory Kit: No Go Gear Vest: Yes Programmed Backup Tattoo Identifier: Yes Primary Controller: Yes Mobile Power Unit: No Black Emergency Red Tag Bag: Yes HeartWare Serial Numbers HeartWare Tracking VAD Discharge Discharge Documentation HF Post Discharge Appointment Made: Yes INR Referral and Management Arranged: Yes INR Range: 2-3 AICD On: Yes Equipment Checklist/Log Numbers Recorded: Yes Educations Education Documentation No documentation found. Esther Pugh RN Date: 05/24/2023 Time: 3:44 PM Pt transferred by this RN to [place] [address] in stable condition. Pt had all belongings, cell phone, cell phone newspaper journalist, LVAD spare batteries (4 batteries), spare controller, and all VSS were stable. Report called prior to transfer. Went to see patient at bedside. Replaced backup batteries in primary and secondary controller. Verified expiration dates on 14v batteries and marked with green stickers. Sent log files to [facility] due to flow flashing between 3.7 and ---- on both controller and system monitor. VAD Note Name: Terry Villalpando Admission Date: 05/19/2023 11:50 AM Attending Provider: Janene Negrete MD P* Room/Bed: 09/25-A Sex: male : 1960 Age: 62 y.o. VAD Readmission Readmission Checklist Readmission Checklist: Yes Code Status Reviewed: Yes Code Status Ordered: Yes RPM Speed Set Point: 9600 Low Speed Limit: 9200 Anticoagulation Goals Entered: Yes Event Monitor Checked: Yes Driveline Secure: Yes Driveline Site Assessed and Photographed: Yes Dressing Change Natalie: Weekly ICD: Nurse to Check Device Upon Admission: On HeartMate Serial Numbers HeartMate Equipment Tracking/Serial Numbers Psychotherapist Social Worker: car newspaper journalist Battery Clip 1: [id number] Battery Clip 2: [id number] Rechargeable Battery 1: [id number] Rechargeable Battery 2: [id number] Rechargeable Battery 3: [id number] Rechargeable Battery 4: [id number] Go Gear Vest: yes Programmed Backup Tattoo Identifier: [id number] Primary Controller: [id number] Black Emergency Red Tag Bag: yes HeartMate Tracking HeartMate Equipment Transfer Transfer From: Admission Psychotherapist Social Worker: No Battery Clip 1: Yes Battery Clip 2: Yes Battery Clip 3: No Battery Clip 4: No Rechargeable Battery 1: Yes Rechargeable Battery 2: Yes Rechargeable Battery 3: Yes Rechargeable Battery 4: Yes Rechargeable Battery 5: No Rechargeable Battery 6: No Rechargeable Battery 7: No Rechargeable Battery 8: No Go Gear Consolidated Bag: No Go Gear Accessory Kit: No Go Gear Vest: Yes Programmed Backup Tattoo Identifier: Yes Primary Controller: Yes Mobile Power Unit: No Black Emergency Red Tag Bag: Yes HeartWare Serial Numbers HeartWare Tracking VAD Discharge Educations Education Documentation No documentation found. Enedina Stauffer RN Date: 05/19/2023 Time: 7:58 PM 1707:: time-out for cardioversion, BHAVNA Benavides NP, Dr Dilshad GUZMAN, Dr. Braxton Anesthesia all present. 1708: 1 mg versed given 1709: 25 mcg fentanyl given. 1711: 25 mcg fentanyl given. 1712 200j shock given, a-v paced rhythm achieved 1714 EKG obtained documented in this encounter [facility] Work Phone: 05-24-2023 Nurse Note VAD Note Name: Terry Villalpando Admission Date: 05/19/2023 11:50 AM Attending Provider: Len Guardado MD Room/Bed: [facility]/83-A Sex: male : 1960 Age: 62 y.o. VAD Readmission Readmission Checklist Readmission Checklist: Yes Code Status Reviewed: Yes Code Status Ordered: Yes RPM Speed Set Point: 9600 Low Speed Limit: 9200 Anticoagulation Goals Entered: Yes Event Monitor Checked: Yes Driveline Secure: Yes Driveline Site Assessed and Photographed: Yes Dressing Change Natalie: Weekly ICD: Nurse to Check Device Upon Admission: On HeartMate Serial Numbers HeartMate Equipment Tracking/Serial Numbers Psychotherapist Social Worker: car newspaper journalist Battery Clip 1: [id number] Battery Clip 2: [id number] Rechargeable Battery 1: [id number] Rechargeable Battery 2: [id number] Rechargeable Battery 3: [id number] Rechargeable Battery 4: [id number] Go Gear Vest: yes Programmed Backup Tattoo Identifier: [id number] Primary Controller: [id number] Black Emergency Red Tag Bag: yes HeartMate Tracking HeartMate Equipment Transfer Transfer From: Heart Failure Unit Transfer To: [place] [address] Psychotherapist Social Worker: No Battery Clip 1: Yes Battery Clip 2: Yes Battery Clip 3: No Battery Clip 4: No Rechargeable Battery 1: Yes Rechargeable Battery 2: Yes Rechargeable Battery 3: Yes Rechargeable Battery 4: Yes Rechargeable Battery 5: No Rechargeable Battery 6: No Rechargeable Battery 7: No Rechargeable Battery 8: No Go Gear Consolidated Bag: No Go Gear Accessory Kit: No Go Gear Vest: Yes Programmed Backup Tattoo Identifier: Yes Primary Controller: Yes Mobile Power Unit: No Black Emergency Red Tag Bag: Yes HeartWare Serial Numbers HeartWare Tracking VAD Discharge Discharge Documentation HF Post Discharge Appointment Made: Yes INR Referral and Management Arranged: Yes INR Range: 2-3 AICD On: Yes Equipment Checklist/Log Numbers Recorded: Yes Educations Education Documentation No documentation found. Esther Pugh RN Date: 05/24/2023 Time: 3:44 PM [facility] Work Phone: 05-24-2023 Hospital course Narrative Discharge Diagnosis ICD (implantable cardioverter-defibrillator) discharge Issues Requiring Follow-Up Follow up clinic visit 06/05 Labs: TSH, dig, CBC, RFP Hospital Course Terry Villalpando is a very pleasant 62 y.o. 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 Other pmh includes CKD, COPD, HTN, HLD, IDDMII, pAF, GIB, hypothyroidism, and MGUS s/p MB biopsy. Pt p/w 7 ICD discharges on 05/19. Patient denies any aggravating factors such as exercise at time of ICD discharge. Initial treatment includes amio bolus x2 and amio gtt inititation for atrial tachyrhythmia. Device interrogation revealed discharges were appropriate: 2 VT episodes and 3 VF episodes. No further incidences of device discharge after amio initiation. Hospital course significant for: amio gtt -> transition to PO (completed load), generator exchange per EP, and torsemide and digoxin switching to three days a week. Coumadin decreased while pt is on amio. Pertinent Physical Exam At Time of Discharge Physical Exam Constitutional: Appearance: He is not ill-appearing. Eyes: Extraocular Movements: Extraocular movements intact. Cardiovascular: Comments: LVAD hum heard on ascultation Tenderness/bruising at ICD site; no hematoma Pulmonary: Effort: Pulmonary effort is normal. Breath sounds: Normal breath sounds. Abdominal: General: Bowel sounds are normal. Palpations: Abdomen is soft. Musculoskeletal: General: Normal range of motion. Skin: General: Skin is warm and dry. Neurological: General: No focal deficit present. Mental Status: He is alert. Mental status is at baseline. Home Medications Medication List START taking these medications cephalexin 500 mg capsule; Commonly known as: Keflex; Take 1 capsule (500 mg) by mouth every 8 hours for 2 doses. pantoprazole 40 mg EC tablet; Commonly known as: ProtoNix; Take 1 tablet (40 mg) by mouth once daily in the morning. Take before meals. Do not crush, chew, or split. Do not start before May 25, 2023.; Start taking on: May 25, 2023 CHANGE how you take these medications amiodarone 400 mg tablet; Commonly known as: Pacerone; Take 1 tablet (400 mg) by mouth once daily.; What changed: medication strength, how much to take torsemide 20 mg tablet; Commonly known as: Demadex; Take 1 tablet (20 mg) by mouth see administration instructions. Take one Saturday, Saturday, and Saturday; What changed: when to take this, reasons to take this, additional instructions warfarin 4 mg tablet; Commonly known as: Coumadin; Take as directed. If you are unsure how to take this medication, talk to your nurse or doctor.; Original instructions: Take as directed per After Visit Summary.; What changed: medication strength, See the new instructions. CONTINUE taking these medications aspirin 81 mg EC tablet BD Ultra-Fine Short Pen Needle 31 gauge x 5/16 needle; Generic drug: pen needle, diabetic carvedilol 6.25 mg tablet; Commonly known as: Coreg cholecalciferol 50 MCG (2000 UT) tablet; Commonly known as: Vitamin D-3 digoxin 125 MCG tablet; Commonly known as: Lanoxin Farxiga 10 mg; Generic drug: dapagliflozin propanediol fish oil concentrate 120-180 mg capsule; Commonly known as: [place]-3 fluticasone 50 mcg/actuation nasal spray; Commonly known as: Flonase gabapentin 300 mg capsule; Commonly known as: Neurontin Levemir FlexPen 100 unit/mL (3 mL) pen; Generic drug: insulin detemir levothyroxine 100 mcg tablet; Commonly known as: Synthroid, Levoxyl lisinopril 5 mg tablet loratadine 10 mg tablet; Commonly known as: Claritin NovoLOG Flexpen U-100 Insulin 100 unit/mL (3 mL) pen; Generic drug: insulin aspart rosuvastatin 10 mg tablet; Commonly known as: Crestor spironolactone 25 mg tablet; Commonly known as: Aldactone Outpatient Follow-Up Future Appointments Date Time Provider Department [facility] 06[facility]05[facility]23 2[facility]/05/2023 2:30 PM Lainey Zhang formerly [facility] LUBNA Prieto documented in this encounter [facility] Work Phone: 05-24-2023 Miscellaneous Notes PATIENT: TERRY VILLALPANDO : 1960 ADMIT DATE: 05/19/2023 11:50 AM DISCH DATE: RESPONDING PROVIDER #: [id number] PROVIDER RESPONSE TEXT: Chronic Systolic HF CDI QUERY TEXT: UH_CV CHF Instruction: Based on your assessment of the patient and the clinical information, please provide the requested documentation by clicking on the appropriate radio button and enter any additional information if prompted. Question: Please clarify the Acuity of Systolic Heart Failure When answering this query, please exercise your independent professional judgment. The fact that a question is being asked, does not imply that any particular answer is desired or expected. The patient's clinical indicators include: Clinical Information: Progress notes indicate pt is a 62 yr old male transferred from OSH for further management of VF/VT and Afib Documented Diagnosis: acute on chronic systolic HF is documented in Cardiology Progress Note on 05/22 Chronic Systolic HFrEF is documented in Cardiology Progress Notes, 05/19-05/21 Clinical Indicators and Documentation: -Vital Signs, 05/19 at 1250: T 36.9- HR 160- RR 26 - MAP 78, SPO2 92 on supplemental oxygen, amount of oxygen not recorded -ECHO, 05/20: EF 15-20 percent -CXR, 05/19: mild perihilar vascular congestion... recommend correlation with patient's volume status -BNP, 05/20: 262 -Physical exam findings: -Lung Sounds: Lungs CTAB and clear per Progress Notes on 05/20 and 05/22 -JVD: n/a -Peripheral Edema: no LE edema per Progress Note on 05/22 -Supplemental Oxygen: VS Flowsheet Record indicates pt on 2LO2 per nasal cannula on 05/19 and 05/20 -Cardiac Consult: n/a -HF Cardiology Progress Note, 05/20: Volume status appears stable will hold additional diuretics Treatment: Monitoring I/Os, CXR, TTE, Torsemide PO, Carvedilol 6.25mg PO, Spironolactone PO, Farxiga PO Risk Factors: Vfib, Afib, Stage D HFrEF, LVAD status Options provided: -- Chronic Systolic HF -- Acute on Chronic Systolic HF as evidenced by, Please specify additional information below -- Other - I will add my own diagnosis -- Refer to Clinical Documentation Reviewer Query created by: Mia Alcantara on 05/22/2023 4:13 PM Electronically signed by: LEN GUARDADO MD 05/24/2023 8:37 AM Problem: Skin Goal: Decreased wound size/increased tissue granulation at next dressing change Outcome: Progressing Goal: Promote skin healing Outcome: Progressing Problem: Arrythmia/Dysrhythmia Goal: Lab values return to normal range Outcome: Progressing The patient's goals for the shift include The clinical goals for the shift include Pt will remain HDS throughout this shift Over the shift, the patient did not make progress toward the following goals. Pt medicated with tylenol 650 mg po for left shoulder discomfort. Will continue to monitor and call light within reach. Problem: Skin Goal: Decreased wound size/increased tissue granulation at next dressing change Outcome: Progressing Goal: Participates in plan/prevention/treatment measures Outcome: Progressing Goal: Promote skin healing Outcome: Progressing The patient's goals for the shift include The clinical goals for the shift include Pt will remain HDS throughout this shift Over the shift, the patient did not make progress toward the following goals. Pt left chest shoulder dressing D&I, denies any pain or discomfort, Vanco 500 mg IV x 1 given. Will continue to monitor and call light within reach. Pt remained HDS and free of injury this shift. Pt's MAPs ranged from 74-82 throughout the night. Pt had no significant arrythmias through shift. Pt NPO at 0000 for ICD battery change today. Pt had an uneventful night. Problem: Skin Goal: Decreased wound size/increased tissue granulation at next dressing change Outcome: Progressing Problem: Skin Goal: Participates in plan/prevention/treatment measures Outcome: Progressing Problem: Skin Goal: Prevent/manage excess moisture Outcome: Progressing Problem: Skin Goal: Prevent/minimize sheer/friction injuries Outcome: Progressing Problem: Skin Goal: Promote/optimize nutrition Outcome: Progressing Problem: Skin Goal: Promote skin healing Outcome: Progressing Problem: Arrythmia/Dysrhythmia Goal: Lab values return to normal range Outcome: Progressing Unable to accommodate generator change due to EP lab availability 05/21, will hope to add on 05/22. Discussed with primary service. The patient's goals for the shift include remain HDS throughout this shift The clinical goals for the shift include HR WNL Problem: Skin Goal: Decreased wound size/increased tissue granulation at next dressing change Outcome: Progressing Goal: Participates in plan/prevention/treatment measures Outcome: Progressing Goal: Prevent/manage excess moisture Outcome: Progressing Goal: Prevent/minimize sheer/friction injuries Outcome: Progressing Goal: Promote/optimize nutrition Outcome: Progressing Goal: Promote skin healing Outcome: Progressing Problem: Arrythmia/Dysrhythmia Goal: Lab values return to normal range Outcome: Progressing Goal: No evidence of post procedure complications Outcome: Progressing Goal: Promote self management Outcome: Progressing Goal: Serial ECG will return to baseline Outcome: Progressing Goal: Verbalize understanding of procedures/devices Outcome: Progressing Goal: Vital signs return to baseline Outcome: Progressing Goal: Care and maintenance of device (specify) Outcome: Progressing documented in this encounter [facility] Work Phone: 05-24-2023 Note Formatting of this n ote might be different from the original. PATIENT: TERRY VILLALPANDO : 1960 ADMIT DATE: 05/19/2023 11:50 AM DISCH DATE: RESPONDING PROVIDER #: [id number] PROVIDER RESPONSE TEXT: Chronic Systolic HF CDI QUERY TEXT: [facility]_CV CHF Instruction: Based on your assessment of the patient and the clinical information, please provide the requested documentation by clicking on the appropriate radio button and enter any additional information if prompted. Question: Please clarify the Acuity of Systolic Heart Failure When answering this query, please exercise your independent professional judgment. The fact that a question is being asked, does not imply that any particular answer is desired or expected. The patient's clinical indicators include: Clinical Information: Progress notes indicate pt is a 62 yr old male transferred from [facility] for further management of VF/VT and Afib Documented Diagnosis: acute on chronic systolic HF is documented in Cardiology Progress Note on 05/22 Chronic Systolic HFrEF is documented in Cardiology Progress Notes, 05/19-05/21 Clinical Indicators and Documentation: -Vital Signs, 05/19 at 1250: T 36.9- HR 160- RR 26 - MAP 78, SPO2 92 on supplemental oxygen, amount of oxygen not recorded -ECHO, 05/20: EF 15-20 percent -CXR, 05/19: mild perihilar vascular congestion... recommend correlation with patient's volume status -BNP, 05/20: 262 -Physical exam findings: -Lung Sounds: Lungs CTAB and clear per Progress Notes on 05/20 and 05/22 -JVD: n/a -Peripheral Edema: no LE edema per Progress Note on 05/22 -Supplemental Oxygen: VS Flowsheet Record indicates pt on 2LO2 per nasal cannula on 05/19 and 05/20 -Cardiac Consult: n/a -HF Cardiology Progress Note, 05/20: Volume status appears stable will hold additional diuretics Treatment: Monitoring I/Os, CXR, TTE, Torsemide PO, Carvedilol 6.25mg PO, Spironolactone PO, Farxiga PO Risk Factors: Vfib, Afib, Stage D HFrEF, LVAD status Options provided: -- Chronic Systolic HF -- Acute on Chronic Systolic HF as evidenced by, Please specify additional information below -- Other - I will add my own diagnosis -- Refer to Clinical Documentation Reviewer Query created by: Mia Alcantara on 05/22/2023 4:13 PM Electronically signed by: LEN GUARDADO MD 05/24/2023 8:37 AM [facility] Work Phone: 05-24-2023 Plan of care note Problem: Skin Goal: Decreased wound size/increased tissue granulation at next dressing change Outcome: Progressing Goal: Promote skin healing Outcome: Progressing Problem: Arrythmia/Dysrhythmia Goal: Lab values return to normal range Outcome: Progressing The patient's goals for the shift include The clinical goals for the shift include Pt will remain HDS throughout this shift Over the shift, the patient did not make progress toward the following goals. Pt medicated with tylenol 650 mg po for left shoulder discomfort. Will continue to monitor and call light within reach. [facility] 05-23-2023 History of Present illness Narrative Occupational Therapy Communication Note Missed Visit: No Missed Visit Reason: (Pt supine in bed upon arrival. Discussed role of OT services. Pt reports no new concerns except L shoulder soreness. Discussed compensatory ADL strategies for shoulder pain. Pt verbalized understanding, denied additional OT needs. Will D/C OT orders.) 05/23/23 at 3:57 PM [facility] Office: [phone] ADVANCED HEART FAILURE LVAD PROGRESS NOTE VAD [employer] Worker: Dr. Guardado Type of VAD: HM2 Implant Date: Initial implant 2013 w/ pump exchange 08/23/2016 for pump thrombosis Reason for VAD: stage D HFrEF (EF 10% -15%) with severe LV dysfunction Intent: Long-Term (patient choice) Subjective HPI: Terry Villalpando is a very pleasant 62 y.o. 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 Other pmh includes CKD, COPD, HTN, HLD, IDDMII, pAF, GIB, hypothyroidism, and MGUS s/p MB biopsy. Pt p/w 7 ICD discharges on 05/19. Patient denies any aggravating factors such as exercise at time of ICD discharge. Initial treatment includes amio bolus x2 and amio gtt inititation for atrial tachyrhythmia. Device interrogation revealed discharges were appropriate: 2 VT episodes and 3 VF episodes. No further incidences of device discharge after amio initiation. EP to do generator exchange today. Principal Problem: ICD (implantable cardioverter-defibrillator) discharge Active Problems: LVAD (left ventricular assist device) present ([facility]) HFrEF (heart failure with reduced ejection fraction) ([facility]) LOS: 4 days Interval Events: Patient seen and examined at bedside. NAOE. Pt underwent ICD generator exchange yesterday, CXR stable. Site tender, but no hematoma noted. Creatinine uptrending today. Plan: - Keflex x3 days postop - Lower Coumadin dose while on antibiotics - Plan to remain inpatient one more day to monitor for postop bleeding and treat CORETTA Objective Vitals: Vitals: 05/22/23 2313 05/23/23 0446 05/23/23 0611 05/23/23 0842 Pulse: 81 80 80 Resp: 18 18 18 Temp: 36 C (96.8 F) 36.6 C (97.9 F) 36.3 C (97.3 F) TempSrc: Temporal Temporal Temporal SpO2: 95% 95% 95% Weight: 105 kg (232 lb 9.4 oz) Height: Wt Readings from Last 5 Encounters: 05/23/23 105 kg (232 lb 9.4 oz) 02/13/23 110 kg (243 lb) 08/15/22 112 kg (247 lb) 01/25/22 115 kg (253 lb 2 oz) 10/03/21 113 kg (249 lb 6 oz) Hemodynamic parameters for last 24 hours: Intake/Output for last 24 hours: Intake/Output Summary (Last 24 hours) at 05/23/2023 1131 Last data filed at 05/23/2023 0640 Gross per 24 hour Intake 0 ml Output 1305 ml Net -1305 ml Physical exam: GEN: Pleasant, well-appearing, no acute distress. HEENT: JVP not elevated, no icterus. CHEST: Clear to auscultation. Sternotomy well healed. L chest ICD site tender to touch, no hematoma noted. Bruising. CV: LVAD hum ABD: Soft, ND, NT. Driveline: No drainage. Dressing c/d/I. Secured. EXT: Warm, well perfused, No LE edema. NEURO: Pleasant, BOB, Oriented to plan Labs: CMP: Recent Labs 05/23/23 0835 05/22/23 0607 05/21/23 0638 05/21/23 0424 05/20/23 0353 05/19/23 1537 05/19/23 1237 12/28/21 0930 12/26/21 1304 03/26/21 1959 03/25/21 1856 NA 134* 138 137 136 135* 132* 139 132* < > 134* 137 K 4.9 4.5 4.9 4.8 3.8 4.1 4.8 5.1 < > 4.3 4.4 CL 97* 103 105 105 104 100 104 100 < > 105 105 CO2 29 25 25 22 22 20* 16* 21 < > 22 23 ANIONGAP 13 15 12 14 13 16 24* 16 < > 11 13 BUN 31* 27* 22 23 21 22 22 24* < > 19 22 CREATININE 1.48* 1.32* 0.98 1.01 0.99 1.12 1.24 1.26 < > 1.04 1.09 EGFR 53* 61 88 85 87 75 66 -- -- -- -- MG 2.44* 2.15 -- 2.05 2.23 4.81* -- 2.15 -- 2.07 2.15 < > = values in this interval not displayed. Recent Labs 05/23/2383405/22/23 0607 05/21/23 0638 05/21/23 0424 05/20/23 0353 12/28/21 0930 12/27/21 0542 12/26/21 1304 03/26/21 1959 03/25/21 1856 03/24/21 1933 03/23/21 2154 03/23/21 0705 03/22/21 1710 ALBUMIN 4.1 3.8 3.5 3.4 3.5 4.2 4.0 4.1 4.0 4.1 4.0 3.9 < > 4.1 ALT -- -- -- -- -- 14 13 13 9* 7* 7* 7* -- 6* AST -- -- -- -- -- 22 22 23 16 14 13 13 -- 16 BILITOT -- -- -- -- -- 1.2 1.0 0.9 0.8 0.9 1.0 1.2 -- 0.7 < > = values in this interval not displayed. CBC: Recent Labs 05/23/23 0835 05/22/23 0607 05/21/23 0514 05/20/23 0353 05/19/23 1237 12/28/21 0930 12/27/21 0542 12/26/21 1304 WBC 7.9 6.0 6.1 6.3 6.5 7.5 5.3 5.4 HGB 15.6 14.8 14.0 14.2 15.2 13.7 13.0* 12.9* HCT 48.6 45.5 40.8* 41.9 44.6 45.4 43.2 43.8 PLT 141* 130* 156 119* 123* 164 145* 154 MCV 96 96 92 91 91 88 90 91 COAG: Recent Labs 05/23/23 0835 05/22/23 0607 05/21/23 0514 05/20/23 0353 05/19/23 1237 05/07/23 0000 04/23/23 0000 04/09/23 0000 12/27/21 1048 12/27/21 0542 12/27/21 0146 12/26/21200603/24/21 19303/23/21 21509/12/17 0506 09/11/17 1148 INR 3.0* 2.4* 2.7* 2.5* 2.4* 2.80 2.50 2.10 < > 2.7* -- -- < > 1.9* < > 3.6* HAUF -- -- -- -- -- -- -- -- -- 0.2 0.3 0.1 -- -- -- -- HAPTOGLOBIN -- -- -- -- -- -- -- -- -- -- -- -- -- <30 -- <30 < > = values in this interval not displayed. ABO: Recent Labs 05/22/23606 ABO A HEME/ENDO: Recent Labs 05/19/23 1237 03/23/21215311/29/17 1529 09/11/17 1148 FERRITIN -- 16* -- 60 IRONSAT -- NOT CALC. -- 16* TSH 0.98 -- 6.40* 16.12* HGBA1C 8.9* -- -- -- CARDIAC: Recent Labs 05/23/23 0835 05/22/23 0607 05/21/23 0638 05/21/23 0424 05/20/23 0353 05/19/23 1237 12/28/21 0930 12/27/21 0542 03/22/21 1710 01/26/20 1300 05/08/18 1623 11/29/17 1529 LDH 553* 531* 601* 570* 429* 395* 410* 386* < > 326* < > 390* BNP -- -- -- -- 262* -- -- -- -- 218* -- 233* < > = values in this interval not displayed. Recent Labs 05/08/18 1623 CHOL 136 LDLF 79 HDL 25.4* TRIG 156* Echo: Transthoracic Echo (TTE) Complete Result Date: 05/20/2023 [facility], [address] [place] [address] and TRANSTHORACIC ECHOCARDIOGRAM REPORT Patient Name: TERRY VILLALPANDO Reading Physician: [id number] Shorty Amin MD Study Date: 05/20/2023 Ordering Provider: [id number] WOOD BARBER MRN/PID: [id number] Fellow: Nurse: Date of /Age: 408/05/1960 / 62 years Business Development Representative: ZULMA Garrett RDCS Gender: M Additional Staff: Height: 180.34 cm Admit Date: Weight: 106.14 kg Admission Status: Inpatient - STAT BSA: 2.25 m2 Department Location: [address] Blood Pressure: /65 mmHg Study Type: TRANSTHORACIC ECHO (TTE) COMPLETE Diagnosis/ICD: Presence of heart assist device-Z95.811 Indication: HFrEF with LVAD CPT Code: Echo Complete w Full Doppler-[id number] Patient History: Pertinent History: A-Fib. 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 Study Detail: The following Echo studies were performed: 2D, M-Mode, Doppler and color flow. Technically challenging study due to poor acoustic windows and body habitus. Definity used as a contrast agent for endocardial border definition. Total contrast used for this procedure was 5 mL via IV push. PHYSICIAN INTERPRETATION: Left Ventricle: The left ventricular systolic function is severely decreased, with an estimated ejection fraction of 15-20%. There is global hypokinesis of the left ventricle with minor regional variations. The left ventricular cavity size is moderately dilated. Abnormal (paradoxical) septal motion, consistent with RV pacemaker. Left ventricular diastolic filling was not assessed. LVEDVi 84 ml/m2. Left Atrium: The left atrium is moderately dilated. Right Ventricle: The right ventricle is moderately enlarged. There is severely reduced right ventricular systolic function. A device is visualized in the right ventricle. Right Atrium: The right atrium was not assessed. There is a device visualized in the right atrium. Aortic Valve: The aortic valve appears abnormal. There is mild to moderate aortic valve regurgitation. The aortic valve leaflets do not appear to open. The aortic regurgitation is systo-diastolic, with a vena contracta of 0.35 cm. Mitral Valve: The mitral valve is normal in structure. There is trace mitral valve regurgitation. Tricuspid Valve: The tricuspid valve is structurally normal. Status post triscuspid annular ring repair. There is trace tricuspid regurgitation. The right ventricular systolic pressure is unable to be estimated. Pulmonic Valve: The pulmonic valve is structurally normal. There is trace to mild pulmonic valve regurgitation. Pericardium: There is no pericardial effusion noted. Aorta: The aortic root is normal. Systemic Veins: The inferior vena cava appears to be of normal size. There is IVC inspiratory collapse greater than 50%. In comparison to the previous echocardiogram(s): Compared with study from 08/24/2021, the LV atanomy and function is unchanged. The RV function is again severely decreased. The degree of aortic regurgitation is now mild to moderate but it could be underestimated. LEFT VENTRICULAR ASSIST DEVICE: LVAD: The patient has a(n) Heartmate II LVAD device present. Inflow Cannula: The inflow cannula is visualized in the left ventricular apex. Outflow Cannula: Visualization of the outflow cannula is technically difficult. AV Leaflet Mobility: The aortic valve leaflets do not appear to open. Inflow Velocities: The LVAD cannula inflow velocity is normal (.5-2msec). The inflow velocity is 0.6 m/s. CONCLUSIONS: 1. Left ventricular systolic function is severely decreased with a 15-20% estimated ejection fraction. 2. There is global hypokinesis of the left ventricle with minor regional variations. 3. Abnormal septal motion consistent with RV pacemaker. 4. Left ventricular cavity size is moderately dilated. 5. There is severely reduced right ventricular systolic function. 6. Moderately enlarged right ventricle. 7. The patient has a Heartmate II LVAD device present. 8. The LVAD cannula inflow velocity is normal at 0.6 m/s. 9. The aortic valve leaflets do not appear to open. 10. Mild to moderate aortic valve regurgitation. 11. The aortic regurgitation is systo-diastolic, with a vena contracta of 0.35 cm. 12. The left atrium is moderately dilated. 13. Compared with study from 08/24/2021, the LV atanomy and function is unchanged. The RV function is again severely decreased. The degree of aortic regurgitation is now mild to moderate but it could be underestimated. QUANTITATIVE DATA SUMMARY: 2D MEASUREMENTS: Normal Ranges: Ao Root d: 3.20 cm (2.0-3.7cm) LAs: 5.20 cm (2.7-4.0cm) IVSd: 1.26 cm (0.6-1.1cm) LVPWd: 1.17 cm (0.6-1.1cm) LVIDd: 5.34 cm (3.9-5.9cm) LVIDs: 4.72 cm LV Mass Index: 117.2 g/m2 LV % FS 11.6 % LA VOLUME: Normal Ranges: LA Vol A4C: 92.8 ml (22+/-6mL/m2) LA Vol A2C: 98.1 ml LA Vol BP: 95.6 ml LA Vol Index A4C: 41.2ml/m2 LA Vol Index A2C: 43.5 ml/m2 LA Vol Index BP: 42.4 ml/m2 LA Area A4C: 26.8 cm2 LA Area A2C: 27.6 cm2 LA [place] A4C: 6.6 cm LA [place] A2C: 6.6 cm LV DIASTOLIC FUNCTION: Normal Ranges: MV Peak E: 0.82 m/s (0.7-1.2 m/s) MV Peak A: 0.27 m/s (0.42-0.7 m/s) E/A Ratio: 3.04 (1.0-2.2) MV e' 0.03 m/s (>8.0) MV lateral e' 0.03 m/s MV medial e' 0.03 m/s E/e' Ratio: 27.43 (<8.0) MV DT: 197 msec (150-240 msec) MITRAL VALVE: Normal Ranges: MV DT: 197 msec (150-240msec) RIGHT VENTRICLE: TAPSE: 7.3 mm RV s' 0.04 m/s TRICUSPID VALVE/RVSP: Normal Ranges: Est. RA Pressure: 3 mmHg PULMONIC VALVE: Normal Ranges: PV Max Abe: 0.9 m/s (0.6-0.9m/s) PV Max P.0 mmHg [id number] Shorty Amin MD Electronically signed on 05/20/2023 at 4:04:38 PM Final Meds: Scheduled medications [Held by provider] amiodarone, 200 mg, oral, Daily amiodarone, 400 mg, oral, q8h aspirin, 81 mg, oral, Daily carvedilol, 6.25 mg, oral, BID cephalexin, 500 mg, oral, q8h AVNI cholecalciferol, 2,000 Units, oral, Daily dapagliflozin propanediol, 10 mg, oral, Daily before breakfast digoxin, 125 mcg, oral, Once per day on Sat fluticasone, 2 spray, Each Nostril, Daily gabapentin, 300 mg, oral, BID insulin detemir, 32 Units, subcutaneous, BID AC insulin lispro, 0-10 Units, subcutaneous, TID with meals levothyroxine, 100 mcg, oral, Daily lisinopril, 5 mg, oral, Daily loratadine, 10 mg, oral, Daily magnesium oxide, 800 mg, oral, BID pantoprazole, 40 mg, oral, Daily before breakfast rosuvastatin, 10 mg, oral, Daily sennosides-docusate sodium, 1 tablet, oral, Nightly [Held by provider] spironolactone, 25 mg, oral, Daily [Held by provider] torsemide, 20 mg, oral, Daily warfarin, 1 mg, oral, Daily Continuous medications PRN medications PRN medications: dextrose 10 % in water (D10W), dextrose, glucagon, ipratropium-albuteroL, polyethylene glycol Assessment/Plan Assessment & Plan NEUROLOGICAL Active issues: # no acute issues CARDIAC Active issues: #Stage D acute on chronic systolic HF/NICM/HFrEF with severe LV dysfunction s/p ICD s/p HM II LVAD (08/2013 at [facility]; exchanged 07/[address] [facility] for pump thrombosis) with associated RV dysfunction GDMT: BB: Coreg 6.25mg BID ARNI/ACEi/ARB: Lisinopril 5mg daily MRA: Spironolactone 25mg daily (Torsemide PRN) -> holding both today 2/2 creatinine bump SGLT2i: Farxiga 10mg daily AC: Coumadin 1mg for INR goal 2-3; c/w ASA 81mg daily -> anticipate lower dosage based on amio and antibiotics. INR 3.0 today. - C/w Vascepa - Weekly dressing changes - C/w digoxin (last level 0.46) - Controller backup battery changed this admission (05/20). Initially, there was concern that controller needed replacement as the controller was reading a flow of 0 while the pump was still functioning correctly. However, this is resolved. No plan to replace controller this admission. Heart Mate II interrogation Most Recent Flow 6 Speed 9600 Power 6.8 PI 3.6 Daily weight: Vitals: 05/23/23 0611 Weight: 105 kg (232 lb 9.4 oz) #Afib RVR, VF, VT - s/p DCC 05/19 -> conversion to underlying paced rhythm - Amio bolus x2 and amio gtt from 05/19-05/21 - Finish amio load: currently pt has received ~3.5g amio. Continue amio loading (400 TID) while inpatient and transition to 400mg daily once discharged. - Generator exchange 05/22 - Second device interrogation prior to discharge - Mag > 2; K > 4 RESPIRATORY Active issues: #COPD - CXR w/ mild congestion; similar to prior exams - PRN duonebs GI: #no acute issues - C/w Protonix RENAL: Active issues: #CKD Results from last 72 hours Lab Units 05/23/23 0835 05/22/23 0607 BUN mg/dL 31* 27* CREATININE mg/dL 1.48* 1.32* - Baseline creatinine 1.9-1.27 - Holding brian & torsemide. Could be 2/2 hypovolemia from NPO for procedure. Encourage PO intake. 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 Gil Jurado I spent 40 minutes in the professional care of this patient Aisha Barger, MSN, AGACNP- Advanced Heart Failure LVAD Nurse Practitioner After 5pm page [phone] Subjective Data: No new concerns or complaints s/p generator change. Overnight Events: NAEO. Objective Data: Last Recorded Vitals: Vitals: 05/22/23 1936 05/22/23 2313 05/23/23 0446 05/23/23 0611 Pulse: 80 81 80 Resp: 18 18 18 Temp: 36.3 C (97.4 F) 36 C (96.8 F) 36.6 C (97.9 F) TempSrc: Temporal Temporal Temporal SpO2: 95% 95% Weight: 105 kg (232 lb 9.4 oz) Height: Last Labs: CBC - 05/22/2023: 6:07 AM 6.0 14.8 130 45.5 CMP - 05/22/2023: 6:07 AM 9.4 _ _ --- _ 3.5 3.8 _ _ PTT - 05/19/2023: 12:37 PM 2.4 27.3 42 BNP Date/Time Value Ref Range Status 05/20/2023 03:53 AM 262 0 - 99 pg/mL Final 01/26/2020 01:00 PM 218 0 - 99 pg/mL Final Comment: . <100 pg/mL - Heart failure unlikely 100-299 pg/mL - Intermediate probability of acute heart . failure exacerbation. Correlate with clinical . context and patient history. >=300 pg/mL - Heart Failure likely. Correlate with clinical . context and patient history. Biotin interference may cause falsely decreased results. Patients taking a Biotin dose of up to 5 mg/day should refrain from taking Biotin for 24 hours before sample collection. Providers may contact their local laboratory for further information. 11/29/2017 03:29 PM 233 0 - 99 pg/mL Final Comment: . <100 pg/mL - Heart failure unlikely 100-299 pg/mL - Intermediate probability of acute heart . failure exacerbation. Correlate with clinical . context and patient history. >=300 pg/mL - Heart Failure likely. Correlate with clinical . context and patient history. BNP testing is performed using different testing methodology at [facility] than [facility]. Direct result comparisons should only be made within the same method. HGBA1C Date/Time Value Ref Range Status 05/19/2023 12:37 PM 8.9 see below % Final VLDL Date/Time Value Ref Range Status 05/08/2018 04:23 PM 31 0 - 40 mg/dL Final Last I/O: I/O last 3 completed shifts: In: 0 (0 mL/kg) Out: 1305 (12.4 mL/kg) [Urine:1300 (0.3 mL/kg/hr); Blood:5] Weight: 105.5 kg Past Cardiology Tests (Last 3 Years): EKG: No results found for this or any previous visit from the past 1095 days. Echo: Transthoracic Echo (TTE) Complete 05/20/2023 Ejection Fractions: No results found for: EF Cath: No results found for this or any previous visit from the past 1095 days. Stress Test: No results found for this or any previous visit from the past 1095 days. Cardiac Imaging: No results found for this or any previous visit from the past 1095 days. Inpatient Medications: Scheduled medications Medication Dose Route Frequency [Held by provider] amiodarone 200 mg oral Daily amiodarone 400 mg oral q8h aspirin 81 mg oral Daily carvedilol 6.25 mg oral BID cephalexin 500 mg oral q8h AVNI cholecalciferol 2,000 Units oral Daily dapagliflozin propanediol 10 mg oral Daily before breakfast digoxin 125 mcg oral Once per day on Sat fluticasone 2 spray Each Nostril Daily gabapentin 300 mg oral BID insulin detemir 32 Units subcutaneous BID AC insulin lispro 0-10 Units subcutaneous TID with meals levothyroxine 100 mcg oral Daily lisinopril 5 mg oral Daily loratadine 10 mg oral Daily magnesium oxide 800 mg oral BID pantoprazole 40 mg oral Daily before breakfast rosuvastatin 10 mg oral Daily sennosides-docusate sodium 1 tablet oral Nightly [Held by provider] spironolactone 25 mg oral Daily [Held by provider] torsemide 20 mg oral Daily warfarin 4.5 mg oral Daily PRN medications Medication dextrose 10 % in water (D10W) dextrose glucagon ipratropium-albuteroL polyethylene glycol Continuous Medications Medication Dose Last Rate Physical Exam: Physical Exam Vitals reviewed. Constitutional: General: He is not in acute distress. Appearance: Normal appearance. He is normal weight. HENT: Head: Normocephalic and atraumatic. Nose: Nose normal. No congestion or rhinorrhea. Mouth/Throat: Mouth: Mucous membranes are moist. Pharynx: Oropharynx is clear. No oropharyngeal exudate or posterior oropharyngeal erythema. Eyes: Extraocular Movements: Extraocular movements intact. Conjunctiva/sclera: Conjunctivae normal. Pupils: Pupils are equal, round, and reactive to light. Neck: Vascular: No carotid bruit. Cardiovascular: Rate and Rhythm: Normal rate. Pulses: Normal pulses. Heart sounds: Normal heart sounds. No murmur heard. No friction rub. No gallop. Comments: Difficult to appreciate heart sounds w/ VAD hum. VAD driveline in place L upper chest with palpable device with mild tenderness to palpation. Incision clean/dry/intact. No discharge/erythema/induration. Pulmonary: Effort: Pulmonary effort is normal. No respiratory distress. Breath sounds: Normal breath sounds. No wheezing or rales. Abdominal: General: Abdomen is flat. Bowel sounds are normal. There is no distension. Palpations: Abdomen is soft. Tenderness: There is no abdominal tenderness. Musculoskeletal: General: No swelling. Normal range of motion. Cervical back: Normal range of motion. Lymphadenopathy: Cervical: No cervical adenopathy. Skin: General: Skin is warm and dry. Capillary Refill: Capillary refill takes less than 2 seconds. Findings: No erythema, lesion or rash. Neurological: General: No focal deficit present. Mental Status: He is alert and oriented to person, place, and time. Mental status is at baseline. Psychiatric: Mood and Affect: Mood normal. Behavior: Behavior normal. Thought Content: Thought content normal. Judgment: Judgment normal. Assessment/Plan Terry Villalpando is a 62 y.o. male with pmhx notable for stage D systolic HF/NICM/HFrEF with severe LV dysfunction s/p [place] ICD s/p HM II LVAD (08/2013 at [facility]; exchanged to HM II LVAD 07/[address] [facility] for pump thrombosis) with associated RV dysfunction, CKD, dyslipidemia, DM, paroxysmal AF, subclinical hypothyroidism, and IgA MGUS, who was admitted to [facility] HFICU due to post-ICD shock who underwent DC ICD generator change yesterday. Today is POD1. -CXR portable reveals normal lead position, stable device position with no acute abnormalities -CXR PA/LAT reveals normal lead position, stable device position with no acute abnormalities -Device interrogation intra-op reveals normal lead parameters and device function -physical exam demonstrates wound that is well-apposed with expect post-surgical changes -anticoagulation: resume warfarin -continue all other cardiac medications as ordered We will sign off at this time, but please do not hesitate to contact us if more questions or concerns arise. Please paste the following into the patient's discharge summary. Discharge Instructions for your Cardiac Device [facility] [phone] Incision: 1. Keep your incision clean and dry for 1 week. 2. May shower 7 days after the procedure. Do not submerge the incision in a tub, pool, hot tub, or lawson for 4 weeks. 3. Your incision should look better each day. If you notice unusual swelling, redness, drainage or fever greater than 100 degrees, please call the Device Clinic or your Doctor's office. 4. Avoid using deodorants, powders, creams, lotions, etc on your incision for 4 weeks. 5. There are no stitches to be removed. If you received a glue closure this may appear purple-parks and does not get removed but wears away slowly on its own. Steri-strips (small white bandages) may be removed in one week or they may fall off on their own earlier. Pain: 1. It is normal for the area around the incision to be tender for a few weeks following surgery. Pain relievers such as Tylenol or Motrin (whichever you can take) are usually sufficient for pain relief. If the pain gets worse instead of better than please call the Device Clinic or your Doctor. Activity: 1. If you have a new device and new leads placed than avoid raising your arm above shoulder level for 4 weeks. Do no cherry picker operator anything weighing more than 15 pounds. 2. Avoid exercising with the arm on the side of your pacemaker. So no golf, swimming, tennis, bowling etc for 4 weeks. 3. Driving: If you were driving prior to your procedure, you may resume driving in 1 week. If you experienced a loss of consciousness prior to your procedure, you should verify with your Doctor when you are able to resume driving. ID CARD: 1. It is important to carry your device ID card with you at all times. 2. Inform doctors and health care providers that you have a pacemaker or defibrillator. Electromagnetic Interference: 1. Microwave ovens are safe to use. 2. Cellular phones should be held to the opposite ear from your device. Do not carry your phone in your shirt pocket. Some i-phones that self-charge can interfere with your device so be sure to keep it away from your pacemaker/defibrillator. 3. Read the Patient Booklet for more information. You may call either the Device Clinic [phone] or the patient services of the device flue gas analyst with questions about specific electrical appliances and interference problems. IT IS YOUR RESPONSIBILITY TO MAKE AND KEEP APPOINTMENTS. Please refer to your Device clinic handout. Peripheral IV 05/19/23 20 G Right Wrist (Active) Site Assessment Clean;Dry;Intact 05/23/23 0000 Dressing Status Clean;Dry 05/23/23 0000 Number of days: 4 Peripheral IV 05/19/23 20 G Left Hand (Active) Site Assessment Clean;Dry;Intact 05/23/23 0000 Dressing Status Clean;Dry 05/23/23 0000 Number of days: 4 Code Status: Full Code I spent 30 minutes in the professional and overall care of this patient. Wiley Ramos MD ADVANCED HEART FAILURE LVAD PROGRESS NOTE VAD Fruit Or Nut Farm Worker: Dr. Guardado Type of VAD: HM2 Implant Date: Initial implant 2013 w/ pump exchange 08/23/2016 for pump thrombosis Reason for VAD: stage D HFrEF (EF 10% -15%) with severe LV dysfunction Intent: Long-Term (patient choice) Subjective HPI: Terry Villalpando is a very pleasant 62 y.o. 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 Other pmh includes CKD, COPD, HTN, HLD, IDDMII, pAF, GIB, hypothyroidism, and MGUS s/p MB biopsy. Pt p/w 7 ICD discharges on 05/19. Patient denies any aggravating factors such as exercise at time of ICD discharge. Initial treatment includes amio bolus x2 and amio gtt inititation for atrial tachyrhythmia. Device interrogation revealed discharges were appropriate: 2 VT episodes and 3 VF episodes. No further incidences of device discharge after amio initiation. EP to do generator exchange today. Principal Problem: ICD (implantable cardioverter-defibrillator) discharge Active Problems: LVAD (left ventricular assist device) present ([facility]) HFrEF (heart failure with reduced ejection fraction) ([facility]) LOS: 3 days Interval Events: Patient seen and examined at bedside. NAOE. Plan for generator change today, pt NPO since 0000. Objective Vitals: Vitals: 05/21/23195205/21/23199905/22/23 0000 05/22/23 0500 Pulse: 80 80 69 Resp: 16 18 18 Temp: 36.5 C (97.7 F) 36.4 C (97.5 F) 36.2 C (97.2 F) TempSrc: SpO2: 95% 93% Weight: 106 kg (232 lb 12.9 oz) Height: Wt Readings from Last 5 Encounters: 05/22/23 106 kg (232 lb 12.9 oz) 02/13/23 110 kg (243 lb) 08/15/22 112 kg (247 lb) 01/25/22 115 kg (253 lb 2 oz) 10/03/21 113 kg (249 lb 6 oz) Hemodynamic parameters for last 24 hours: Intake/Output for last 24 hours: Intake/Output Summary (Last 24 hours) at 05/22/2023 0741 Last data filed at 05/21/2023 1300 Gross per 24 hour Intake -- Output 401 ml Net -401 ml Physical exam: GEN: Pleasant, well-appearing, no acute distress. HEENT: JVP not elevated, no icterus. CHEST: Clear to auscultation. Sternotomy well healed. CV: LVAD hum ABD: Soft, ND, NT. Driveline: No drainage. Dressing c/d/I. Secured. EXT: Warm, well perfused, No LE edema. NEURO: PAULINO Brown, Oriented to plan Labs: CMP: Recent Labs 05/22/23 0607 05/21/23 0638 05/21/23 0424 05/20/23 0353 05/19/23 1537 05/19/23 1237 12/28/21 0930 12/27/21 0542 12/26/21 1304 03/26/21 1959 03/25/21 1856 03/24/21 1933 NA 138 137 136 135* 132* 139 132* 136 < > 134* 137 135* K 4.5 4.9 4.8 3.8 4.1 4.8 5.1 4.3 < > 4.3 4.4 4.2 CL 103 105 105 104 100 104 100 103 < > 105 105 103 CO2 25 25 22 22 20* 16* 21 24 < > 22 23 23 ANIONGAP 15 12 14 13 16 24* 16 13 < > 11 13 13 BUN 27* 22 23 21 22 22 24* 22 < > 19 22 26* CREATININE 1.32* 0.98 1.01 0.99 1.12 1.24 1.26 1.19 < > 1.04 1.09 1.26 EGFR 61 88 85 87 75 66 -- -- -- -- -- -- MG 2.15 -- 2.05 2.23 4.81* -- 2.15 -- -- 2.07 2.15 2.13 < > = values in this interval not displayed. Recent Labs 05/22/23 0607 05/21/23 0638 05/21/23 0424 05/20/23 0353 12/28/21 0930 12/27/21 0542 12/26/21 1304 03/26/21195803/25/21 1856 03/24/21 1933 03/23/21 2154 03/23/21 0705 03/22/21 1710 ALBUMIN 3.8 3.5 3.4 3.5 4.2 4.0 4.1 4.0 4.1 4.0 3.9 < > 4.1 ALT -- -- -- -- 14 13 13 9* 7* 7* 7* -- 6* AST -- -- -- -- 23 16 14 13 13 -- 16 BILITOT -- -- -- -- 1.2 1.0 0.9 0.8 0.9 1.0 1.2 -- 0.7 < > = values in this interval not displayed. CBC: Recent Labs 05/22/23 0605/21/23 0514 05/20/2335205/19/23 1237 12/28/21 0930 12/27/21 0542 12/26/21 1304 03/26/211958 WBC 6.0 6.1 6.3 6.5 7.5 5.3 5.4 6.6 HGB 14.8 14.0 14.2 15.2 13.7 13.0* 12.9* 8.7* HCT 45.5 40.8* 41.9 44.6 45.4 43.2 43.8 31.0* PLT 130* 156 119* 123* 164 145* 154 179 MCV 96 92 91 91 88 90 91 88 COAG: Recent Labs 05/22/23 0607 05/21/23 0514 05/20/23 0353 05/19/23 1237 05/07/23 0000 04/23/23 0000 04/09/23 0000 03/26/23 0000 12/27/21 1048 12/27/21 0542 12/27/21 0146 12/26/21 2007 03/24/21 1933 03/23/21 2154 09/12/17 0506 09/11/17 1148 INR 2.4* 2.7* 2.5* 2.4* 2.80 2.50 2.10 2.20 < > 2.7* -- -- < > 1.9* < > 3.6* HAUF -- -- -- -- -- -- -- -- -- 0.2 0.3 0.1 -- -- -- -- HAPTOGLOBIN -- -- -- -- -- -- -- -- -- -- -- -- -- <30 -- <30 < > = values in this interval not displayed. ABO: Recent Labs 05/19/23 1237 ABO A HEME/ENDO: Recent Labs 05/19/23 1237 03/23/21 2154 11/29/17 1529 09/11/17 1148 FERRITIN -- 16* -- 60 IRONSAT -- NOT CALC. -- 16* TSH 0.98 -- 6.40* 16.12* HGBA1C 8.9* -- -- -- CARDIAC: Recent Labs 05/22/23 0607 05/21/23 0638 05/21/23 0424 05/20/23 0353 05/19/23 1237 12/28/21 0930 12/27/21 0542 12/26/21 1304 03/22/21 1710 01/26/20 1300 05/08/18 1623 11/29/17 1529 LDH 531* 601* 570* 429* 395* 410* 386* 452* < > 326* < > 390* BNP -- -- -- 262* -- -- -- -- -- 218* -- 233* < > = values in this interval not displayed. Recent Labs 05/08/18 1623 CHOL 136 LDLF 79 HDL 25.4* TRIG 156* Echo: Transthoracic Echo (TTE) Complete Result Date: 05/20/2023 [facility], [address] [place] [address] and TRANSTHORACIC ECHOCARDIOGRAM REPORT Patient Name: TERRY VILLALPANDO Reading Physician: [id number] Shorty Amin MD Study Date: 05/20/2023 Ordering Provider: [id number] WOOD Levon BARBER MRN/PID: [id number] Fellow: Nurse: Date of /Age: 408/05/1960 / 62 years Business Development Representative: ZULMA Garrett RDCS Gender: M Additional Staff: Height: 180.34 cm Admit Date: Weight: 106.14 kg Admission Status: Inpatient - STAT BSA: 2.25 m2 Department Location: [address] Blood Pressure: /65 mmHg Study Type: TRANSTHORACIC ECHO (TTE) COMPLETE Diagnosis/ICD: Presence of heart assist device-Z95.811 Indication: HFrEF with LVAD CPT Code: Echo Complete w Full Doppler-[id number] Patient History: Pertinent History: A-Fib. 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 Study Detail: The following Echo studies were performed: 2D, M-Mode, Doppler and color flow. Technically challenging study due to poor acoustic windows and body habitus. Definity used as a contrast agent for endocardial border definition. Total contrast used for this procedure was 5 mL via IV push. PHYSICIAN INTERPRETATION: Left Ventricle: The left ventricular systolic function is severely decreased, with an estimated ejection fraction of 15-20%. There is global hypokinesis of the left ventricle with minor regional variations. The left ventricular cavity size is moderately dilated. Abnormal (paradoxical) septal motion, consistent with RV pacemaker. Left ventricular diastolic filling was not assessed. LVEDVi 84 ml/m2. Left Atrium: The left atrium is moderately dilated. Right Ventricle: The right ventricle is moderately enlarged. There is severely reduced right ventricular systolic function. A device is visualized in the right ventricle. Right Atrium: The right atrium was not assessed. There is a device visualized in the right atrium. Aortic Valve: The aortic valve appears abnormal. There is mild to moderate aortic valve regurgitation. The aortic valve leaflets do not appear to open. The aortic regurgitation is systo-diastolic, with a vena contracta of 0.35 cm. Mitral Valve: The mitral valve is normal in structure. There is trace mitral valve regurgitation. Tricuspid Valve: The tricuspid valve is structurally normal. Status post triscuspid annular ring repair. There is trace tricuspid regurgitation. The right ventricular systolic pressure is unable to be estimated. Pulmonic Valve: The pulmonic valve is structurally normal. There is trace to mild pulmonic valve regurgitation. Pericardium: There is no pericardial effusion noted. Aorta: The aortic root is normal. Systemic Veins: The inferior vena cava appears to be of normal size. There is IVC inspiratory collapse greater than 50%. In comparison to the previous echocardiogram(s): Compared with study from 08/24/2021, the LV atanomy and function is unchanged. The RV function is again severely decreased. The degree of aortic regurgitation is now mild to moderate but it could be underestimated. LEFT VENTRICULAR ASSIST DEVICE: LVAD: The patient has a(n) Heartmate II LVAD device present. Inflow Cannula: The inflow cannula is visualized in the left ventricular apex. Outflow Cannula: Visualization of the outflow cannula is technically difficult. AV Leaflet Mobility: The aortic valve leaflets do not appear to open. Inflow Velocities: The LVAD cannula inflow velocity is normal (.5-2msec). The inflow velocity is 0.6 m/s. CONCLUSIONS: 1. Left ventricular systolic function is severely decreased with a 15-20% estimated ejection fraction. 2. There is global hypokinesis of the left ventricle with minor regional variations. 3. Abnormal septal motion consistent with RV pacemaker. 4. Left ventricular cavity size is moderately dilated. 5. There is severely reduced right ventricular systolic function. 6. Moderately enlarged right ventricle. 7. The patient has a Heartmate II LVAD device present. 8. The LVAD cannula inflow velocity is normal at 0.6 m/s. 9. The aortic valve leaflets do not appear to open. 10. Mild to moderate aortic valve regurgitation. 11. The aortic regurgitation is systo-diastolic, with a vena contracta of 0.35 cm. 12. The left atrium is moderately dilated. 13. Compared with study from 08/24/2021, the LV atanomy and function is unchanged. The RV function is again severely decreased. The degree of aortic regurgitation is now mild to moderate but it could be underestimated. QUANTITATIVE DATA SUMMARY: 2D MEASUREMENTS: Normal Ranges: Ao Root d: 3.20 cm (2.0-3.7cm) LAs: 5.20 cm (2.7-4.0cm) IVSd: 1.26 cm (0.6-1.1cm) LVPWd: 1.17 cm (0.6-1.1cm) LVIDd: 5.34 cm (3.9-5.9cm) LVIDs: 4.72 cm LV Mass Index: 117.2 g/m2 LV % FS 11.6 % LA VOLUME: Normal Ranges: LA Vol A4C: 92.8 ml (22+/-6mL/m2) LA Vol A2C: 98.1 ml LA Vol BP: 95.6 ml LA Vol Index A4C: 41.2ml/m2 LA Vol Index A2C: 43.5 ml/m2 LA Vol Index BP: 42.4 ml/m2 LA Area A4C: 26.8 cm2 LA Area A2C: 27.6 cm2 LA [place] A4C: 6.6 cm LA [place] A2C: 6.6 cm LV DIASTOLIC FUNCTION: Normal Ranges: MV Peak E: 0.82 m/s (0.7-1.2 m/s) MV Peak A: 0.27 m/s (0.42-0.7 m/s) E/A Ratio: 3.04 (1.0-2.2) MV e' 0.03 m/s (>8.0) MV lateral e' 0.03 m/s MV medial e' 0.03 m/s E/e' Ratio: 27.43 (<8.0) MV DT: 197 msec (150-240 msec) MITRAL VALVE: Normal Ranges: MV DT: 197 msec (150-240msec) RIGHT VENTRICLE: TAPSE: 7.3 mm RV s' 0.04 m/s TRICUSPID VALVE/RVSP: Normal Ranges: Est. RA Pressure: 3 mmHg PULMONIC VALVE: Normal Ranges: PV Max Abe: 0.9 m/s (0.6-0.9m/s) PV Max P.0 mmHg [id number] Shorty Amin MD Electronically signed on 05/20/2023 at 4:04:38 PM Final Meds: Scheduled medications [Held by provider] amiodarone, 200 mg, oral, Daily amiodarone, 400 mg, oral, q8h aspirin, 81 mg, oral, Daily carvedilol, 6.25 mg, oral, BID cholecalciferol, 2,000 Units, oral, Daily dapagliflozin propanediol, 10 mg, oral, Daily before breakfast digoxin, 125 mcg, oral, Once per day on Sat fluticasone, 2 spray, Each Nostril, Daily gabapentin, 300 mg, oral, BID insulin detemir, 32 Units, subcutaneous, BID AC insulin lispro, 0-10 Units, subcutaneous, TID with meals levothyroxine, 100 mcg, oral, Daily lisinopril, 5 mg, oral, Daily loratadine, 10 mg, oral, Daily magnesium oxide, 800 mg, oral, BID pantoprazole, 40 mg, oral, Daily before breakfast rosuvastatin, 10 mg, oral, Daily sennosides-docusate sodium, 1 tablet, oral, Nightly spironolactone, 25 mg, oral, Daily torsemide, 20 mg, oral, Daily warfarin, 3 mg, oral, Daily Continuous medications PRN medications PRN medications: dextrose 10 % in water (D10W), dextrose, glucagon, ipratropium-albuteroL, polyethylene glycol Assessment/Plan Assessment & Plan NEUROLOGICAL Active issues: # no acute issues CARDIAC Active issues: #Stage D acute on chronic systolic HF/NICM/HFrEF with severe LV dysfunction s/p ICD s/p HM II LVAD (08/2013 at [facility]; exchanged 07/[address] [facility] for pump thrombosis) with associated RV dysfunction GDMT: BB: Coreg 6.25mg BID ARNI/ACEi/ARB: Lisinopril 5mg daily MRA: Spironolactone 25mg daily (Torsemide PRN) -> holding both today 2/2 creatinine bump SGLT2i: Farxiga 10mg daily AC: Coumadin 3mg for INR goal 2-3; c/w ASA 81mg daily - C/w Vascepa - Weekly dressing changes - C/w digoxin (last level 0.46) - Controller backup battery changed this admission (05/20). Initially, there was concern that controller needed replacement as the controller was reading a flow of 0 while the pump was still functioning correctly. However, this is resolved. No plan to replace controller this admission. Heart Mate II interrogation Most Recent Flow 6 Speed 9600 Power 6.3 PI 3.3 Daily weight: Vitals: 05/22/23 0500 Weight: 106 kg (232 lb 12.9 oz) #Afib RVR, VF, VT - s/p DCC 05/19 -> conversion to underlying paced rhythm - Amio bolus x2 and amio gtt from 05/19-05/21 - Finish amio load: currently pt has received ~3.5g amio. Continue amio loading (400 TID) while inpatient and transition to 400mg daily once discharged. - Generator exchange today per EP - Second device interrogation prior to discharge - Mag > 2; K > 4 RESPIRATORY Active issues: #COPD - CXR w/ mild congestion; similar to prior exams - PRN duonebs GI: #no acute issues - C/w Protonix RENAL: Active issues: #CKD Results from last 72 hours Lab Units 05/22/23 0607 05/21/23 0638 BUN mg/dL 27* 22 CREATININE mg/dL 1.32* 0.98 - Baseline creatinine 1.9-1.27 ENDO: Active issues: #IDDMII - HgbA1C: 8.9; EST AVG GLUC 209 - Levemir 32u BID - C/w sliding scale - C/w farxiga #Hypothyroidism - C/w home Synthroid HEMATOLOGY/ONCOLOGY: Active issues: #MGUS Results from last 7 days Lab Units 05/22/23 0607 05/21/23 0514 HEMOGLOBIN g/dL 14.8 14.0 HEMATOCRIT % 45.5 40.8* PLATELETS AUTO x10*3/uL 130* 156 - BM biopsy: 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%) WITH APPROXIMATELY 10-15% KAPPA+ 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 Gil Jurado I spent 40 minutes in the professional care of this patient Aisha Barger, MSN, [facility] Advanced Heart Failure LVAD Nurse Practitioner After 5pm page [phone] Physical Therapy Physical Therapy Evaluation Patient Name: Terry Villalpando Today's Date: 05/21/2023 Time Calculation Start Time: 1440 Stop Time: 1457 Time Calculation (min): 17 min Assessment/Plan PT Assessment PT Assessment Results: Decreased strength, Decreased endurance, Impaired balance, Decreased mobility Rehab Prognosis: Excellent Evaluation/Treatment Tolerance: Patient tolerated treatment well End of Session Communication: Bedside nurse End of Session Patient Position: Up in chair, Alarm off, not on at start of session IP OR SWING BED PT PLAN Inpatient or Swing Bed: Inpatient PT Plan Treatment/Interventions: Bed mobility, Transfer training, Gait training, Stair training, Balance training, Neuromuscular re-education, Strengthening, Endurance training, Therapeutic exercise, Therapeutic activity PT Plan: Skilled PT PT Frequency: 3 times per week PT Discharge Recommendations: No PT needed after discharge PT Recommended Transfer Status: Stand by assist PT - OK to Discharge: Yes Subjective General Visit Information: General Reason for Referral: pt presents from OSH s/p ICD shock and sustained VT and need for ICD battery change Past Medical History Relevant to Rehab: stage D HFrEF (EF 10% -15%) with severe LV dysfunction s/p ICD and HM II LVAD (08/2013 @ [facility]; 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 due to pump thrombosis on Coumatin), CKD, COPD, HTN, Dyslipidemia, T2DM, pAF, GIB, MGUS s/p bone marrow biopsy and subclinical hypothyroidism Prior to Session Communication: Bedside nurse Patient Position Received: Up in chair, Alarm off, not on at start of session General Comment: telemetry; LVAD HMII (drive line secured): pre: pump (9600 rpm); flow (4.8); PI (3.8); power (6.0); post: pump (9600 rpm); flow (6.0); PI (4.4); power (6.4); pt reports these are normal #'s for him Home Living: Home Living Type of Home: Mobile home (Trailer home) Lives With: Spouse Home Layout: One level Home Access: Stairs to enter with rails Entrance Stairs-Rails: Right Entrance Stairs-Number of Steps: 3 Prior Level of Function: Prior Function Per Pt/Caregiver Report Level of [place]: Independent with ADLs and functional transfers Receives Help From: Family ADL Assistance: Independent Homemaking Assistance: Independent Ambulatory Assistance: Independent Vocational: Retired Leisure: fishing Prior Function Comments: (-) falls; community ambulator with no AD use Precautions: Precautions Medical Precautions: Cardiac precautions, Fall precautions, Other (comment) (LVAD) Vital Signs: Vital Signs Heart Rate: (pre: 80; post: 81) Resp: (pre: 18; post: 15) SpO2: (unable to get accurate SPO2 read d/t LVAD; pt does not report any SOB during ambulation) BP: (Unable to get BP read d/t LVAD; pt denies dizziness or lightheadedness with mobilization) Objective Pain: Pain Assessment Pain Assessment: 0-10 Pain Score: 0 - No pain Cognition: Cognition Overall Cognitive Status: Within Functional Limits Arousal/Alertness: Appropriate responses to stimuli Orientation Level: Oriented X4 Following Commands: Follows all commands and directions without difficulty Safety Judgment: Good awareness of safety precautions General Assessments: Activity Tolerance Endurance: Tolerates less than 10 min exercise, no significant change in vital signs Early Mobility/Exercise Safety Screen: Proceed with mobilization - No exclusion criteria met Sensation Light Touch: No apparent deficits Strength Strength Comments: B LE >/= 3+/5 Static Sitting Balance Static Sitting-Balance Support: No upper extremity supported, Feet supported Static Sitting-Level of Assistance: Close supervision Dynamic Sitting Balance Dynamic Sitting-Balance Support: Feet supported, No upper extremity supported Dynamic Sitting-Comments: close supervision Static Standing Balance Static Standing-Balance Support: No upper extremity supported Static Standing-Level of Assistance: Contact guard Dynamic Standing Balance Dynamic Standing-Balance Support: No upper extremity supported Dynamic Standing-Comments: CGA Functional Assessments: Transfers Transfer: Yes Transfer 1 Technique 1: Sit to stand Transfer Level of Assistance 1: Contact guard Trials/Comments 1: 1 trial Transfers 2 Technique 2: Stand to sit Transfer Level of Assistance 2: Contact guard Trials/Comments 2: 1 trial Ambulation/Gait Training Ambulation/Gait Training Performed: Yes Ambulation/Gait Training 1 Surface 1: Level tile Device 1: No device Assistance 1: Contact guard Quality of Gait 1: Wide base of support (slow natalie) Comments/Distance (ft) 1: (pt ambulated 450 in meza; vital stable; c/o mild fatigue during last 50 ft but denied need for standing rest break) Extremity/Trunk Assessments: RLE RLE : Within Functional Limits LLE LLE : Within Functional Limits Outcome Measures: [facility] Basic Mobility Turning from your back to your side while in a flat bed without using bedrails: None Moving from lying on your back to sitting on the side of a flat bed without using bedrails: None Moving to and from bed to chair (including a wheelchair): A little Standing up from a chair using your arms (e.g. wheelchair or bedside chair): A little To walk in hospital room: A little Climbing 3-5 steps with railing: A little Basic Mobility - Total Score: 20 Confusion Assessment Method-ICU (CAM-ICU) Feature 1: Acute Onset or Fluctuating Course: Negative Overall CAM-ICU: Negative FSS-ICU Ambulation: Walks >/ or equal to 150 feet with minimal assistance x1 Rolling: Complete independence Sitting: Complete independence Transfer [id number]: Supervision or set-up only Transfer [id number]: Complete independence Total Score: 30 ICU Mobility Screen Early Mobility/Exercise Safety Screen: Proceed with mobilization - No exclusion criteria met E = Exercise and Early Mobility Early Mobility/Exercise Safety Screen: Proceed with mobilization - No exclusion criteria met Current Activity: Ambulating in meza Encounter Problems Encounter Problems (Active) Balance Mobility Pt will be able to ambulate >/= 600 ft with supervision and no assistive device (Progressing) Start: 05/21/23 Expected End: 06/04/23 Pt will be able to complete STS transfers independently without the use of assistive device (Progressing) Start: 05/21/23 Expected End: 06/04/23 Pt will complete all bed mobility independently without the use of railings for support (Progressing) Start: 05/21/23 Expected End: 06/04/23 Pt will be able to achieve >/= 700ft on 6MWT with RPE </= 13/20 and RPD </= 3/10 (Progressing) Start: 05/21/23 Expected End: 06/04/23 Transfers Pt will be able to complete STS transfers independently without the use of assistive device (Progressing) Start: 05/21/23 Expected End: 06/04/23 Education Documentation Mobility Training, taught by Abiel Hale-PT at 05/21/2023 3:19 PM. Learner: Patient Readiness: Acceptance Method: Explanation Response: Verbalizes Understanding Education Comments No comments found. Mae Stephen, SPT Terry Villalpando is a 62 y.o. male on day 2 of admission presenting with ICD (implantable cardioverter-defibrillator) discharge. Hospital Course: 62-year-old male with PMH significant for of stage D HFrEF (EF 10% -15%) with severe LV dysfunction s/p ICD and HM II LVAD (08/2013 @ [facility]; 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 Initially presented to [facility] today 05/19/2023 with complaints of seven ICD firing in the morning after taking his morning medications, transfer was initiated to [facility] for further workup. Upon admission, patient presented with atrial & ventricular dysrhythmias (HR 160-200s), unable to obtain flow readings from the LVAD. He was given 2gm Magnesium IV, Amiodaron 150mg bolus x2 and started on a 1mg/hr Amio gtt. EP was consulted and device interrogated at bedside. Interrogation and bedside ECHO by EP fellow revealed A fib and V fib, decision was made to bedside defibrillate. S/p defib with 200 J x1 with anesthesia stand by for airway precaution evening of 05/19. Successful conversion to paced rhythm and MAPs 70's. Patient was on Amio gtt decreased to 0.5mg/min, now transitioned to 400 mg TID PO, prior discharge, need to go back to maintenance dose, EP following, plan for ICD battery change out tomorrow 05/22. VAD coordinators to change out LVAD controller if needed. VAD SPARK TESTER aware, will follow up. Objective Physical Exam Constitutional: Appearance: Normal appearance. He is obese. HENT: Head: Normocephalic and atraumatic. Eyes: Extraocular Movements: Extraocular movements intact. Pupils: Pupils are equal, round, and reactive to light. Cardiovascular: Rate and Rhythm: Normal rate and regular rhythm. Comments: Intermittent V-paced rhythm and positive LVAD hums Pulmonary: Effort: Pulmonary effort is normal. Breath sounds: Normal breath sounds. Musculoskeletal: General: Normal range of motion. Cervical back: Normal range of motion. Skin: General: Skin is warm and dry. Capillary Refill: Capillary refill takes less than 2 seconds. Neurological: General: No focal deficit present. Mental Status: He is alert and oriented to person, place, and time. Mental status is at baseline. Psychiatric: Mood and Affect: Mood normal. Behavior: Behavior normal. Last Recorded Vitals Pulse 80, temperature 36.4 C (97.5 F), resp. rate 20, height 1.82 m (5' 11.65 ), weight 108 kg (238 lb 1.6 oz), SpO2 93 %. Intake/Output last 3 Shifts: I/O last 3 completed shifts: In: 924.2 (8.6 mL/kg) [I.V.:924.2 (8.6 mL/kg)] Out: 2525 (23.4 mL/kg) [Urine:2525 (0.6 mL/kg/hr)] Weight: 108 kg Relevant Results Results for orders placed or performed during the hospital encounter of 05/19/23 (from the past 24 hour(s)) Transthoracic Echo (TTE) Complete Result Value Ref Range MV avg E/e' ratio 27.43 MV E/A ratio 3.04 LA vol index A/L 42.4 ml/m2 Tricuspid annular plane systolic excursion 0.7 cm RV free wall pk S' 4.00 cm/s LVIDd 5.34 cm BSA 2.34 m2 POCT GLUCOSE Result Value Ref Range POCT Glucose 133 (H) 74 - 99 mg/dL POCT GLUCOSE Result Value Ref Range POCT Glucose 185 (H) 74 - 99 mg/dL Magnesium Result Value Ref Range Magnesium 2.05 1.60 - 2.40 mg/dL Renal function panel Result Value Ref Range Glucose 145 (H) 74 - 99 mg/dL Sodium 136 136 - 145 mmol/L Potassium 4.8 3.5 - 5.3 mmol/L Chloride 105 98 - 107 mmol/L Bicarbonate 22 21 - 32 mmol/L Anion Gap 14 10 - 20 mmol/L Urea Nitrogen 23 6 - 23 mg/dL Creatinine 1.01 0.50 - 1.30 mg/dL eGFR 85 >60 mL/min/1.73m*2 Calcium 8.7 8.6 - 10.6 mg/dL Phosphorus 3.2 2.5 - 4.9 mg/dL Albumin 3.4 3.4 - 5.0 g/dL Lactate Dehydrogenase Result Value Ref Range LDH 570 (H) 84 - 246 U/L CBC Result Value Ref Range WBC 6.1 4.4 - 11.3 x10*3/uL nRBC 0.0 0.0 - 0.0 /100 WBCs RBC 4.45 (L) 4.50 - 5.90 x10*6/uL Hemoglobin 14.0 13.5 - 17.5 g/dL Hematocrit 40.8 (L) 41.0 - 52.0 % MCV 92 80 - 100 fL MCH 31.5 26.0 - 34.0 pg MCHC 34.3 32.0 - 36.0 g/dL RDW 14.8 (H) 11.5 - 14.5 % Platelets 156 150 - 450 x10*3/uL Protime-INR Result Value Ref Range Protime 30.5 (H) 9.8 - 12.8 seconds INR 2.7 (H) 0.9 - 1.1 Renal function panel Result Value Ref Range Glucose 133 (H) 74 - 99 mg/dL Sodium 137 136 - 145 mmol/L Potassium 4.9 3.5 - 5.3 mmol/L Chloride 105 98 - 107 mmol/L Bicarbonate 25 21 - 32 mmol/L Anion Gap 12 10 - 20 mmol/L Urea Nitrogen 22 6 - 23 mg/dL Creatinine 0.98 0.50 - 1.30 mg/dL eGFR 88 >60 mL/min/1.73m*2 Calcium 8.7 8.6 - 10.6 mg/dL Phosphorus 3.2 2.5 - 4.9 mg/dL Albumin 3.5 3.4 - 5.0 g/dL Lactate Dehydrogenase Result Value Ref Range LDH 601 (H) 84 - 246 U/L POCT GLUCOSE Result Value Ref Range POCT Glucose 129 (H) 74 - 99 mg/dL Assessment & Plan: Hospital Course: 62-year-old male with PMH significant for of stage D HFrEF (EF 10% -15%) with severe LV dysfunction s/p ICD and HM II LVAD (08/2013 @ [facility]; 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 Initially presented to [facility] today 05/19/2023 with complaints of seven ICD firing in the morning after taking his morning medications, transfer was initiated to [facility] for further workup. Upon admission, patient presented with atrial & ventricular dysrhythmias (HR 160-200s), unable to obtain flow readings from the LVAD. He was given 2gm Magnesium IV, Amiodaron 150mg bolus x2 and started on a 1mg/hr Amio gtt. EP was consulted and device interrogated at bedside. Interrogation and bedside ECHO by EP fellow revealed A fib and V fib, decision was made to bedside defibrillate. S/p defib with 200 J x1 with anesthesia stand by for airway precaution evening of 05/19. Successful conversion to paced rhythm and MAPs 70's. Patient was on Amio gtt decreased to 0.5mg/min, now transitioned to 400 mg TID PO, prior discharge, need to go back to maintenance dose, EP following, plan for ICD battery change out tomorrow 05/22. VAD coordinators to change out LVAD controller if needed. VAD SPARK TESTER aware, will follow up. Neuro: No active issues - Serial neuro and pain assessments - PO Tylenol PRN for pain - PT/OT Consult, OOB to chair - CAM ICU score every shift - Sleep/wake cycle normalization Cardiovascular: #LVAD (Heartmate II) - Implanted on 08/2013 and replaced on 07/2016 due to device thrombosis Daily VAD Interrogation Device: HM II DTT Speed: 9600, low speed 9200 Power: 5.2 Flow: 5.8 PI: 3.4 LDH: 570 (was 429) INR: 2.7 - Upon admission VAD interrogation, patient's VAD clinical data showed normal flow rate at midnight 05/19/23 and the flow rate dropped it 3 around 0730 in the morning. Medications: ASA 81 mg daily Coumadin 3 mg (goal INR range of 2-2.5 for ICD battery replacement) PPI 40 mg daily [place] 3 2 grams daily Weekly dressing change #NICM Chronic Systolic HFrEF-EF 10-15% Last TTE (08/22/2022): Severely reduced ejection fraction of 10-15%. Mild elevated right ventricle systolic pressure. Mild to moderate MR, AR and mild AR. - Admitting weight: 107 kg; daily weight (05/20): pending - Admitting BNP: Pending - Admitting Lactate: 1.6 - Continue home medications Carvedilol 6.25 mcg Dapagliflozin propanediol 10 mg Lisinopril 5 mg Rosuvastatin 10 mg Spironolactone 25 mg Digoxin 125 mcg (M,W,F) - Dig level: 0.46 Torsemide 20mg PRN -TTE (05/20): LVEF: 15-20%, severely reduced right ventricular systolic function, moderately enlarged right ventricle.The aortic valve leaflets do not appear to open. Mild to moderate aortic valve regurgitation. 11. The aortic regurgitation is systo-diastolic, with a vena contracta of 0.35 cm. 12. The left atrium is moderately dilated. -Daily weights, strict I&Os #Afib RVR & Ventricular fibrillation - Presented to HFICU with rate of 150-200 BPM - ICD interrogation - informal performed by EP fellow at bedside, will need formal device interrogation on Saturday - Informal bedside ECHO performed by EP fellow and recommended STAT Defibrillation - Success defibrillation 05/19/23, convert from Afib/Vfib to underlying AV paced rhythm after 200J defibrillation - Amiodarone 150 mg bolus x2 + gtt @ 1 mg/min (05/19/2023)-> Amiodarone 0.5mg/min (05/20/2023) - Decreased Warfarin from 4.5 mg to 3 mg 05/20, INR 2.7 (2.5) - Continue home cardiac medications - EP consulted and following - Plan to exchange ICD battery, awaiting recs on oral regimen. #Electrolyte Disturbances - Electrolyte replaced as needed - Added PO Mag today Pulmonary: #COPD - CXR: Mild perihilar vascular congestion, which is similar when compared to prior exam. Recommend correlation with patient's volume status. - SPO2 goal > 90%, currently on RA - PRN Duonebs for wheezing and SOB GI: - Prophylaxis pantoprazole 40 mg daily - Daily stool softeners + PRN laxatives for constipation : -Baseline BUN/Cr: 22-26/1.19-1.27 -Admit BUN/Cr: 22/1.12 -Daily BUN/Cr (05/21): 23/1.01 -I/Os -avoid hypotension and nephrotoxic agents Endo: #DM II - HgbA1C: 8.9; EST AVG GLUC 209 - levemir increased to home dose of 32 units BID (05/20) - c/w Sliding scale #2 TID with meals - Continue home Dapagliflozin 10mg daily #Hypothyroidism - admit TSH: 0.98 - Continue home levothyroxine 100 mcg daily ID: -Afebrile, nontoxic, no s/s infx Lines: PIVs Right radial Arterial line- 05/19, D/c'd 05/21 DVT: on coumadin VAP BUNDLE: NA ULCER PPX: Pantoprazole 40 mg daily GLYCEMIC CONTROL: Insulin Detemir and Sliding scale #2 BOWEL CARE: Stool softeners and PRN laxatives INDWELLING CATHETER: NA NUTRITION: Adult diet Carb Controlled; 60 gram carb/meal, 30 gram Carb evening snack Code Status: Full Code Family Primary Contact/Next of Kin: Beatriz Kelly (daughter) [phone]; Patient's daughter at bedside and updated during am rounds 05/21 Dispo: Transfer to today A. -G. reviewed Patient seen and assessed with Dr. Duglas Metz CNP Subjective Data: Feels better now that he is out of VF. No bleeding, palpitations, dyspnea Objective Data: Last Recorded Vitals: Vitals: 05/20/23 1600 05/20/23 1700 05/20/23 1800 05/20/231999 Pulse: 80 80 80 Resp: 16 19 17 Temp: 36.1 C (97 F) 36.1 C (97 F) TempSrc: Temporal SpO2: 91% 95% 96% Weight: Height: Last Labs: CBC - 05/20/2023: 3:53 AM 6.3 14.2 119 41.9 CMP - 05/20/2023: 3:53 AM 9.3 _ _ --- _ 3.6 3.5 _ _ PTT - 05/19/2023: 12:37 PM 2.5 28.5 42 BNP Date/Time Value Ref Range Status 01/26/2020 01:00 PM 218 0 - 99 pg/mL Final Comment: . <100 pg/mL - Heart failure unlikely 100-299 pg/mL - Intermediate probability of acute heart . failure exacerbation. Correlate with clinical . context and patient history. >=300 pg/mL - Heart Failure likely. Correlate with clinical . context and patient history. Biotin interference may cause falsely decreased results. Patients taking a Biotin dose of up to 5 mg/day should refrain from taking Biotin for 24 hours before sample collection. Providers may contact their local laboratory for further information. 11/29/2017 03:29 PM 233 0 - 99 pg/mL Final Comment: . <100 pg/mL - Heart failure unlikely 100-299 pg/mL - Intermediate probability of acute heart . failure exacerbation. Correlate with clinical . context and patient history. >=300 pg/mL - Heart Failure likely. Correlate with clinical . context and patient history. BNP testing is performed using different testing methodology at [facility] than at other [facility]. Direct result comparisons should only be made within the same method. HGBA1C Date/Time Value Ref Range Status 05/19/2023 12:37 PM 8.9 see below % Final VLDL Date/Time Value Ref Range Status 05/08/2018 04:23 PM 31 0 - 40 mg/dL Final Last I/O: I/O last 3 completed shifts: In: 1587.3 (14.7 mL/kg) [I.V.:1537.3 (14.2 mL/kg); IV Piggyback:50] Out: 1550 (14.4 mL/kg) [Urine:1550 (0.4 mL/kg/hr)] Weight: 108 kg Past Cardiology Tests (Last 3 Years): EKG: No results found for this or any previous visit from the past 1095 days. Echo: Transthoracic Echo (TTE) Complete 05/20/2023 Ejection Fractions: No results found for: EF Cath: No results found for this or any previous visit from the past 1095 days. Stress Test: No results found for this or any previous visit from the past 1095 days. Cardiac Imaging: No results found for this or any previous visit from the past 1095 days. Inpatient Medications: Scheduled medications Medication Dose Route Frequency [Held by provider] amiodarone 200 mg oral Daily aspirin 81 mg oral Daily carvedilol 6.25 mg oral BID cholecalciferol 2,000 Units oral Daily dapagliflozin propanediol 10 mg oral Daily before breakfast digoxin 125 mcg oral Once per day on Sat fluticasone 2 spray Each Nostril Daily gabapentin 300 mg oral BID insulin detemir 32 Units subcutaneous BID AC insulin lispro 0-10 Units subcutaneous TID with meals levothyroxine 100 mcg oral Daily lisinopril 5 mg oral Daily loratadine 10 mg oral Daily pantoprazole 40 mg oral Daily before breakfast rosuvastatin 10 mg oral Daily sennosides-docusate sodium 1 tablet oral Nightly spironolactone 25 mg oral Daily warfarin 3 mg oral Daily PRN medications Medication dextrose 10 % in water (D10W) dextrose glucagon ipratropium-albuteroL polyethylene glycol Continuous Medications Medication Dose Last Rate amiodarone 0.5 mg/min 0.5 mg/min (05/20/231831) Physical Exam: Physical Exam: Constitutional: chronically-ill appearing, NAD Eyes: no conjunctival injection, EOMI ENT: MMM, no apparent injury Head/Neck: Neck supple, no apparent injury Respiratory/Thorax: Patent airways, CTAB, normal WOB Cardiovascular: +sternotomy. +HM2 hum. normal rate, regular rhythm, no murmur, normal S1 and S2, JVP not elevated, extremities warm, trace ALEX Gastrointestinal: Non-distended, soft, no tenderness Extremities: warm, intact Neurological: grossly intact, no focal deficits Skin: Warm and dry, no lesions, no rashes Assessment/Plan 62 y/o male with a PMHx sig for stage D systolic HF/NICM/HFrEF with severe LV dysfunction s/p ICD s/p HM II LVAD (08/2013 at [facility]; exchanged to HM II LVAD 07/[address] [facility] for pump thrombosis) with associated RV dysfunction, CKD, dyslipidemia, DM, paroxysmal AF, subclinical hypothyroidism, and IgA MGUS, who was admitted to [facility] HFICU due to post-ICD shock and sustained VT. Per patient, around 4:30 this morning, ICD shocked him without proceeding cardiopulmonary symptoms. Based on the CIED interrogation @ [facility] this morning, his RA lead function was unclear but the RV lead function was normal. In the morning of 05/19/2023, patient developed VT (stable CL around 300 msec) and VF (labile CL around less than 200 msec) with underlying AF and he was appropriately shocked. Impression: #HFrEF 2/2 nicMP s/p HM2 LVAD 2013, then exchanged for HM2 LVAD 2016 for pump thrombosis #ICD 2010 - SJM implanted 10/20/2010, reached [facility] 06/2019) #VT (CL 300 msec) -> degenerated to VF s/p defibrillation 05/19 for low LVAD flows Developed VT that degenerated to VF resulting in poor LVAD flows, now hemodynamically improved after defibrillation 05/19. Device likely could not defibrillate due to 3 years post-ELVIS. Will plan on generator change this admission. Regarding AAD to suppress VT, conditional on RV function. He has tolerated amiodarone before, no documented toxicity and he cannot recall one. If he has acceptable RV function from HF standpoint and is felt to have a long-enough time horizon to warrant amiodarone-sparing therapies, could try sotalol to suppress VT. If RV felt not to tolerate BB or if time horizon with HF/comorbidities is felt to be shorter than competing hazards of amiodarone toxicity, then continuing to load with amiodarone is reasonable. Recommendations: -NPO@[place] for possible generator change 05/21 -continue warfarin, can do generator change with INR 2.0 - 3. -if RV is felt to be able to tolerate betablocker and if amiodarone-sparing approach is desired: stop carvedilol and amiodarone. start sotalol 80 mg bid, check ECG 2 hours after each dose and upload to [place] -if RV felt not to be able to tolerate beta román or if amiodarone toxicities felt acceptable: do not start sotalol. Start PO amiodarone 400mg tid x7d then reduce to 400mg daily -outpatient EP follow-up with Dr. Yip at [facility] in 6-8 weeks Thank you for the opportunity to contribute to the care of this patient. Above recommendations discussed with Dr. Yip. If further questions arise, [place] [phone] on weekdays 7AM - 6PM and weekends 7AM - 2PM, or [place] [phone] at all other times. The EP device nurse can be reached at pager [phone] during regular business hours M-F. Peripheral IV 05/19/23 20 G Right Wrist (Active) Site Assessment Clean;Dry;Intact 05/20/23 1600 Dressing Type Transparent 05/20/23 1600 Line Status Infusing;Flushed 05/20/23 1600 Dressing Status Clean;Dry;Occlusive 05/20/23 1600 Number of days: 1 Peripheral IV 05/19/23 20 G Left Hand (Active) Site Assessment Dry;Clean;Intact 05/20/23 1600 Dressing Type Transparent 05/20/23 1600 Line Status Blood return noted 05/20/23 1600 Dressing Status Clean;Dry;Occlusive 05/20/23 1600 Number of days: 1 Arterial Line 05/19/23 Right Radial (Active) Site Assessment Clean;Dry;Intact 05/20/23 1600 Line Status Pulsatile blood flow 05/20/23 1600 Art Line Waveform Appropriate;Square wave test performed 05/20/23 1600 Dressing Type Transparent 05/20/23 1600 Dressing Status Clean;Dry;Occlusive 05/20/23 1600 Number of days: 1 Code Status: Full Code I spent 35 minutes in the professional and overall care of this patient. Jose Kovacs MD Associated attestation - Matias Yip MD - 05/21/2023 10:31 AM EST I saw and evaluated the patient. I personally obtained the amezquita and critical portions of the history and physical exam or was physically present for amezquita and critical portions performed by the resident/fellow. I reviewed the resident/fellow's documentation and discussed the patient with the resident/fellow. I agree with the resident/fellow's medical decision making as documented in the note. I spent 30 minutes in the professional and overall care of this patient. SW fall intern and SW met with patient at bedside. See flowsheet for assessment details. Patient confirmed he lives home alone with and has no issues with [facility]. Patient requested to complete POA paperwork. Patient confirmed daughter primary POA Beatriz Villalpando [phone] and son Joshua Villalpando [phone] as second POA. POA complete. Copy placed in chart. Original copy and two additional copies left with patient at bedside. Patient does not report additional SW needs at this time. WOJCIECH Lynch Occupational Therapy Therapy Communication Note Patient Name: Terry Villalpando Today's Date: 05/20/2023 Discipline: Occupational Therapy Missed Visit Reason: Missed Visit Reason: (Patient getting set-up for bedside echo at this time; will attempt OT next visit as appropriate.) Missed Time: Attempt Comment: RAKESH Cheek/L Inpatient Occupational Therapist Rehab Office: [phone] Terry Villalpando is a 62 y.o. male on day 1 of admission presenting with ICD (implantable cardioverter-defibrillator) discharge. Subjective Hemodynamically stable overnight without dysrhythmias, currently sinus rhythm on telemetry with intermittent ventricular paced rhythm. Patient is resting in bed comfortably, denies chest pain and SOB but endorse some soreness on the site of defibrillation. Alert and oriented x3, answers questions appropriately. LVAD data assessed (see below) Plans: EP consulted and following - Plan for ICD batter change out later this week LVAD coordinator to exchange controller due to malfunction Decrease Amiodarone gtt from 1mg/min to 0.5mg/min Decreased Warfarin from 4.5mg to 3mg (goal INR range of 2-2.5 for ICD battery replacement) Formal ECHO to assess RV function Objective Physical Exam Constitutional: Appearance: Normal appearance. He is obese. HENT: Head: Normocephalic and atraumatic. Eyes: Extraocular Movements: Extraocular movements intact. Pupils: Pupils are equal, round, and reactive to light. Cardiovascular: Rate and Rhythm: Normal rate and regular rhythm. Comments: Intermittent V-paced rhythm and positive LVAD hums Pulmonary: Effort: Pulmonary effort is normal. Breath sounds: Normal breath sounds. Musculoskeletal: General: Normal range of motion. Cervical back: Normal range of motion. Skin: General: Skin is warm and dry. Capillary Refill: Capillary refill takes less than 2 seconds. Neurological: General: No focal deficit present. Mental Status: He is alert and oriented to person, place, and time. Mental status is at baseline. Psychiatric: Mood and Affect: Mood normal. Behavior: Behavior normal. Last Recorded Vitals Pulse 80, temperature 36.9 C (98.4 F), resp. rate 25, height 1.82 m (5' 11.65 ), weight 107 kg (234 lb 12.6 oz), SpO2 97 %. Intake/Output last 3 Shifts: I/O last 3 completed shifts: In: 1275.5 (12 mL/kg) [I.V.:1225.5 (11.5 mL/kg); IV Piggyback:50] Out: 1050 (9.9 mL/kg) [Urine:1050 (0.3 mL/kg/hr)] Weight: 106.5 kg Relevant Results Results for orders placed or performed during the hospital encounter of 05/19/23 (from the past 24 hour(s)) Basic metabolic panel Result Value Ref Range Glucose 313 (H) 74 - 99 mg/dL Sodium 132 (L) 136 - 145 mmol/L Potassium 4.1 3.5 - 5.3 mmol/L Chloride 100 98 - 107 mmol/L Bicarbonate 20 (L) 21 - 32 mmol/L Anion Gap 16 10 - 20 mmol/L Urea Nitrogen 22 6 - 23 mg/dL Creatinine 1.12 0.50 - 1.30 mg/dL eGFR 75 >60 mL/min/1.73m*2 Calcium 9.6 8.6 - 10.6 mg/dL Magnesium Result Value Ref Range Magnesium 4.81 (HH) 1.60 - 2.40 mg/dL POCT GLUCOSE Result Value Ref Range POCT Glucose 304 (H) 74 - 99 mg/dL CBC Result Value Ref Range WBC 6.3 4.4 - 11.3 x10*3/uL nRBC 0.0 0.0 - 0.0 /100 WBCs RBC 4.61 4.50 - 5.90 x10*6/uL Hemoglobin 14.2 13.5 - 17.5 g/dL Hematocrit 41.9 41.0 - 52.0 % MCV 91 80 - 100 fL MCH 30.8 26.0 - 34.0 pg MCHC 33.9 32.0 - 36.0 g/dL RDW 14.9 (H) 11.5 - 14.5 % Platelets 119 (L) 150 - 450 x10*3/uL Protime-INR Result Value Ref Range Protime 28.5 (H) 9.8 - 12.8 seconds INR 2.5 (H) 0.9 - 1.1 Magnesium Result Value Ref Range Magnesium 2.23 1.60 - 2.40 mg/dL Renal function panel Result Value Ref Range Glucose 157 (H) 74 - 99 mg/dL Sodium 135 (L) 136 - 145 mmol/L Potassium 3.8 3.5 - 5.3 mmol/L Chloride 104 98 - 107 mmol/L Bicarbonate 22 21 - 32 mmol/L Anion Gap 13 10 - 20 mmol/L Urea Nitrogen 21 6 - 23 mg/dL Creatinine 0.99 0.50 - 1.30 mg/dL eGFR 87 >60 mL/min/1.73m*2 Calcium 9.3 8.6 - 10.6 mg/dL Phosphorus 3.6 2.5 - 4.9 mg/dL Albumin 3.5 3.4 - 5.0 g/dL Lactate Dehydrogenase Result Value Ref Range LDH 429 (H) 84 - 246 U/L POCT GLUCOSE Result Value Ref Range POCT Glucose 187 (H) 74 - 99 mg/dL POCT GLUCOSE Result Value Ref Range POCT Glucose 202 (H) 74 - 99 mg/dL Assessment & Plan: 62-year-old male with PMH significant for of stage D HFrEF (EF 10% -15%) with severe LV dysfunction s/p ICD and HM II LVAD (08/2013 @ [facility]; 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 Initially presented to [facility] today 05/19/2023 with complaints of seven ICD firing in the morning after taking his morning medications, transfer was initiated to [facility] for further workup. Upon admission, patient presented with atrial & ventricular dysrhythmias (HR 160-200s), unable to obtain flow readings from the LVAD. He was given 2gm Magnesium IV, Amiodaron 150mg bolus x2 and started on a 1mg/hr Amio gtt. EP was consulted and device interrogated at bedside. Interrogation and bedside ECHO by EP fellow revealed A fib and V fib, decision was made to bedside defibrillate. S/p defib with 200 J x1 with anesthesia stand by for airway precaution evening of 05/19. Successful conversion to paced rhythm and MAPs 70's. Patient remains on Amio gtt decreased to 0.5mg/min, EP following and making recs on transition to oral amio and plan for ICD battery change out later this week. VAD coordinators to change out LVAD controller. Neuro: No active issues - Serial neuro and pain assessments - PO Tylenol PRN for pain - PT/OT Consult, OOB to chair - CAM ICU score every shift - Sleep/wake cycle normalization Cardiovascular: #LVAD (Heartmate II) - Implanted on 08/2013 and replaced on 07/2016 due to device thrombosis Daily VAD Interrogation Device: HM II DTT Admitting doppler MAP: 78 mmHg Speed: 9600, low speed 9200 Power: 5.9 Flow: 4.9 (post DCCV) PI: 2.3 LDH: 429 INR: 2.5 - Upon admission VAD interrogation, patient's VAD clinical data showed normal flow rate at midnight 05/19/23 and the flow rate dropped it 3 around 0730 in the morning. Medications: ASA 81 mg daily Coumadin 3 mg (goal INR range of 2-2.5 for ICD battery replacement) PPI 40 mg daily [place] 3 2 grams daily Weekly dressing change #NICM Chronic Systolic HFrEF-EF 10-15% Last TTE (08/22/2022): Severely reduced ejection fraction of 10-15%. Mild elevated right ventricle systolic pressure. Mild to moderate MR, AR and mild AR. - Admitting weight: 107 kg; daily weight (05/20): pending - Admitting BNP: Pending - Admitting Lactate: 1.6 - Continue home medications Carvedilol 6.25 mcg Dapagliflozin propanediol 10 mg Lisinopril 5 mg Rosuvastatin 10 mg Spironolactone 25 mg Digoxin 125 mcg (M,W,F) - Dig level: 0.46 Torsemide 20mg PRN -Consider formal ECHO Saturday -Daily weights, strict I&Os #Afib RVR & Ventricular fibrillation - Presented to HFICU with rate of 150-200 BPM - ICD interrogation - informal performed by EP fellow at bedside, will need formal device interrogation on Saturday - Informal bedside ECHO performed by EP fellow and recommended STAT Defibrillation - Success defibrillation 05/19/23, convert from Afib/Vfib to underlying AV paced rhythm after 200J defibrillation - Amiodarone 150 mg bolus x2 + gtt @ 1 mg/min (05/19/2023)-> Amiodarone 0.5mg/min (05/20/2023) - Decreased Warfarin from 4.5 mg to 3 mg, INR 2.5 - Continue home cardiac medications - EP consulted and following - Plan to exchange ICD battery, awaiting recs on oral regimen. #Electrolyte Disturbances - BMP: K3.8, Na 135, Cl 104, Mag 2.23. - Electrolyte replaced as needed Pulmonary: #COPD - CXR: Mild perihilar vascular congestion, which is similar when compared to prior exam. Recommend correlation with patient's volume status. - SPO2 goal > 90%, currently on RA - PRN Duonebs for wheezing and SOB GI: - Prophylaxis pantoprazole 40 mg daily - Daily stool softeners + PRN laxatives for constipation : -Baseline BUN/Cr: 22-26/1.19-1.27 -Admit BUN/Cr: 22/1.12 -Daily BUN/Cr (05/20): 21/0.99 -I/Os -avoid hypotension and nephrotoxic agents Endo: #DM II - HgbA1C: 8.9; EST AVG GLUC 209 - levemir increased to home dose of 32 units BID (05/20) - c/w Sliding scale #2 TID with meals - Continue home Dapagliflozin 10mg daily #Hypothyroidism - admit TSH: 0.98 - Continue home levothyroxine 100 mcg daily ID: -Afebrile, nontoxic, no s/s infx -WBC 6.3 Lines: PIVs Right radial Arterial line- 05/19 DVT: on coumadin VAP BUNDLE: NA ULCER PPX: Pantoprazole 40 mg daily GLYCEMIC CONTROL: Insulin Detemir and Sliding scale #2 BOWEL CARE: Stool softeners and PRN laxatives INDWELLING CATHETER: NA NUTRITION: Adult diet Carb Controlled; 60 gram carb/meal, 30 gram Carb evening snack Code Status: Full Code Family Primary Contact/Next of Kin: Beatriz Kelly (daughter) [phone]; Patient' and daughter at bedside and updated during am rounds 05/20. Dispo: remain in HFICU A. -G. reviewed Patient seen and assessed with LUBNA Garcia HFICU Attending Note No further VT after sedated defibrillation yesterday, continue to load with IV amiodarone, discussed with patient he was on amiodarone in the past this was stopped after several years of stabilty will need to be intermodal dispatcher for now Controller is reading low flow unclear if related to software or VT event, discuss controlled change tomorrow. Likely will need ICD generator change prior to discharge, will try to keep INR 2-2.5 for now, despite VT does not appear that patient would candidate for transplant given MGUS at a minimum if not overt malignancy Volume status appears stable will hold additional diuretics. This critically ill patient continues to be at-risk for clinically significant deterioration / failure due to the above mentioned dysfunctional, unstable organ systems. I have personally identified and managed all complex critical care issues to prevent aforementioned clinical deterioration. Critical care time is spent at bedside and/or the immediate area and has included, but is not limited to, the review of diagnostic tests, labs, radiographs, serial assessments of hemodynamics, respiratory status, ventilatory management, and family updates. Time spent in procedures and teaching are reported separately. Critical care time: _48___ minutes Pharmacy Medication History Review Terry Villalpando is a 62 y.o. male admitted for No Principal Problem: There is no principal problem currently on the Problem List. Please update the Problem List and refresh.. Pharmacy reviewed the patient's [id number] medications and allergies for accuracy. The list below reflects the updated [employer] list. Comments regarding how patient may be taking medications differently can be found in the Admit Orders Activity Prior to Admission Medications Prescriptions Last Dose Informant BD Ultra-Fine Short Pen Needle 31 gauge x 5/16 needle Self Sig: USE UP TO 6 TIMES DAILY FOR INJECTIONS Farxiga 10 mg Self Sig: Take 1 tablet (10 mg) by mouth once daily in the morning. Take before meals. Levemir FlexPen 100 unit/mL (3 mL) pen Self Sig: INJECT 32 UNITS UNDER SKIN TWICE A DAY amiodarone (Pacerone) 200 mg tablet Self Sig: Take 1 tablet (200 mg) by mouth once daily. aspirin 81 mg EC tablet Self Sig: Take 1 tablet (81 mg) by mouth once daily. carvedilol (Coreg) 6.25 mg tablet Self Sig: Take 1 tablet (6.25 mg) by mouth 2 times a day. cholecalciferol (Vitamin D-3) 50 MCG (2000 UT) tablet Self Sig: Take 1 tablet (50 mcg) by mouth once daily. digoxin (Lanoxin) 125 MCG tablet Self Sig: Take 1 tablet (125 mcg) by mouth 3 times a week. fish oil concentrate ([place]-3) 120-180 mg capsule Self Sig: Take 2 capsules (2 g) by mouth 2 times a day. fluticasone (Flonase) 50 mcg/actuation nasal spray Self Sig: Administer 2 sprays into each nostril once daily. gabapentin (Neurontin) 300 mg capsule Self Sig: Take 1 capsule (300 mg) by mouth 2 times a day. insulin aspart (NovoLOG FlexPen U-100 Insulin) 100 unit/mL (3 mL) pen Self Sig: Inject under the skin 3 times a day before meals. As directed by sliding scale levothyroxine (Synthroid, Levoxyl) 100 mcg tablet Self Sig: Take 1 tablet (100 mcg) by mouth once daily. lisinopril 5 mg tablet Self Sig: Take 1 tablet (5 mg) by mouth once daily. loratadine (Claritin) 10 mg tablet Self Sig: Take 1 tablet (10 mg) by mouth once daily. rosuvastatin (Crestor) 10 mg tablet Self Sig: Take 1 tablet (10 mg) by mouth once daily. spironolactone (Aldactone) 25 mg tablet Self Sig: Take 1 tablet (25 mg) by mouth once daily. torsemide (Demadex) 20 mg tablet Self Sig: Take 1 tablet (20 mg) by mouth once daily as needed. warfarin (Coumadin) 3 mg tablet Self Sig: Take 1.5 tablets (4.5 mg) by mouth once daily. Facility-Administered Medications: None The list below reflects the updated allergy list. Please review each documented allergy for additional clarification and justification. Allergies Reviewed by Wood Barber APRN-JENNIFER on 05/19/2023 No Known Allergies Patient declines M2B at discharge. Sources used to complete the med history include: Patient interview/ Pharmacy - [facility]/ Chart review - OSH records, Anticoag note 05/07/23 Roxanne Javier PharmD Transitions of Care Pharmacist [facility] Please reach out via Secure Chat for questions, or if no response call [employer] or [employer] documented in this encounter [facility] Work Phone: 05-23-2023 Plan of care note Problem: Skin Goal: Decreased wound size/increased tissue granulation at next dressing change Outcome: Progressing Goal: Participates in plan/prevention/treatment measures Outcome: Progressing Goal: Promote skin healing Outcome: Progressing The patient's goals for the shift include The clinical goals for the shift include Pt will remain HDS throughout this shift Over the shift, the patient did not make progress toward the following goals. Pt left chest shoulder dressing D&I, denies any pain or discomfort, Vanco 500 mg IV x 1 given. Will continue to monitor and call light within reach. [facility] Work Phone: 05-22-2023 Plan of care note Pt remained HDS and free of injury this shift. Pt's MAPs ranged from 74-82 throughout the night. Pt had no significant arrythmias through shift. Pt NPO at 0000 for ICD battery change today. Pt had an uneventful night. Problem: Skin Goal: Decreased wound size/increased tissue granulation at next dressing change Outcome: Progressing Problem: Skin Goal: Participates in plan/prevention/treatment measures Outcome: Progressing Problem: Skin Goal: Prevent/manage excess moisture Outcome: Progressing Problem: Skin Goal: Prevent/minimize sheer/friction injuries Outcome: Progressing Problem: Skin Goal: Promote/optimize nutrition Outcome: Progressing Problem: Skin Goal: Promote skin healing Outcome: Progressing Problem: Arrythmia/Dysrhythmia Goal: Lab values return to normal range Outcome: Progressing [facility] 05-21-2023 Note Formatting of this n ote might be different from the original. Unable to accommodate generator change due to EP lab availability 05/21, will hope to add on 05/22. Discussed with primary service. [facility] Work Phone: 05-21-2023 Nurse Note Pt transferred by this RN to [place] [id number] in stable condition. Pt had all belongings, cell phone, cell phone newspaper journalist, LVAD spare batteries (4 batteries), spare controller, and all VSS were stable. Report called prior to transfer. [facility] 05-20-2023 Nurse Note Went to see patient at bedside. Replaced backup batteries in primary and secondary controller. Verified expiration dates on 14v batteries and marked with green stickers. Sent log files to [place] [place] due to flow flashing between 3.7 and ---- on both controller and system monitor. [facility] 05-19-2023 Plan of care note The patient's goals for the shift include remain HDS throughout this shift The clinical goals for the shift include HR WNL Problem: Skin Goal: Decreased wound size/increased tissue granulation at next dressing change Outcome: Progressing Goal: Participates in plan/prevention/treatment measures Outcome: Progressing Goal: Prevent/manage excess moisture Outcome: Progressing Goal: Prevent/minimize sheer/friction injuries Outcome: Progressing Goal: Promote/optimize nutrition Outcome: Progressing Goal: Promote skin healing Outcome: Progressing Problem: Arrythmia/Dysrhythmia Goal: Lab values return to normal range Outcome: Progressing Goal: No evidence of post procedure complications Outcome: Progressing Goal: Promote self management Outcome: Progressing Goal: Serial ECG will return to baseline Outcome: Progressing Goal: Verbalize understanding of procedures/devices Outcome: Progressing Goal: Vital signs return to baseline Outcome: Progressing Goal: Care and maintenance of device (specify) Outcome: Progressing [facility] 05-19-2023 Nurse Note VAD Note Name: Terry Villalpando Admission Date: 05/19/2023 11:50 AM Attending Provider: Janene Negrete MD P* Room/Bed: A Sex: male : 1960 Age: 62 y.o. VAD Readmission Readmission Checklist Readmission Checklist: Yes Code Status Reviewed: Yes Code Status Ordered: Yes RPM Speed Set Point: 9600 Low Speed Limit: 9200 Anticoagulation Goals Entered: Yes Event Monitor Checked: Yes Driveline Secure: Yes Driveline Site Assessed and Photographed: Yes Dressing Change Natalie: Weekly ICD: Nurse to Check Device Upon Admission: On HeartMate Serial Numbers HeartMate Equipment Tracking/Serial Numbers Psychotherapist Social Worker: car newspaper journalist Battery Clip 1: [id number] Battery Clip 2: [id number] Rechargeable Battery 1: [id number] Rechargeable Battery 2: [id number] Rechargeable Battery 3: [id number] Rechargeable Battery 4: [id number] Go Gear Vest: yes Programmed Backup Tattoo Identifier: [id number] Primary Controller: [id number] Black Emergency Red Tag Bag: yes HeartMate Tracking HeartMate Equipment Transfer Transfer From: Admission Psychotherapist Social Worker: No Battery Clip 1: Yes Battery Clip 2: Yes Battery Clip 3: No Battery Clip 4: No Rechargeable Battery 1: Yes Rechargeable Battery 2: Yes Rechargeable Battery 3: Yes Rechargeable Battery 4: Yes Rechargeable Battery 5: No Rechargeable Battery 6: No Rechargeable Battery 7: No Rechargeable Battery 8: No Go Gear Consolidated Bag: No Go Gear Accessory Kit: No Go Gear Vest: Yes Programmed Backup Tattoo Identifier: Yes Primary Controller: Yes Mobile Power Unit: No Black Emergency Red Tag Bag: Yes HeartWare Serial Numbers HeartWare Tracking VAD Discharge Educations Education Documentation No documentation found. Enedina Stauffer RN Date: 05/19/2023 Time: 7:58 PM [facility] Work Phone: 05-19-2023 Procedure note Associated Ord er(s): Electrical Cardioversion Electrical Cardioversion Date/Time: 05/19/2023 6:18 PM Performed by: LUBNA Solis Authorized by: LUBNA Solis Consent: Consent obtained: Verbal and emergent situation Consent given by: Patient Risks, benefits, and alternatives were discussed: yes Alternatives discussed: Rate-control medication, alternative treatment, no treatment and observation [place] protocol: Procedure explained and questions answered to patient or proxy's satisfaction: yes Relevant documents present and verified: no Test results available: yes Imaging studies available: yes Required blood products, implants, devices, and special equipment available: yes Site/side marked: no Immediately prior to procedure, a time out was called: yes Patient identity confirmed: Verbally with patient and arm band Pre-procedure details: Cardioversion basis: Emergent Rhythm: Ventricular tachycardia Attempt one: Cardioversion mode: Asynchronous Waveform: Biphasic Shock (Joules): 200 Shock outcome: Conversion to normal sinus rhythm Post-procedure details: Patient status: Awake Procedure completion: Tolerated well, no immediate complications The case discussed with heart failure attending Dr. Negrete, EP fellow interrogated ICD and bedside ECHO, both consistently revealed patient on a fib , RVR and on ventricular fibrillation. His LVAD with NO flow at the time, defibrilated at 200 J x1, asynchronized, post shock back to paced rhythm and LVAD flow back to 4.3 on LVAD monitor. Versed 1 mg, fentanyl 50 mcg were given during the procedure. [facility] Work Phone: 05-19-2023 Procedure note Associated Ord er(s): Electrical Cardioversion Electrical Cardioversion Date/Time: 05/19/2023 6:18 PM Performed by: LUBNA Solis Authorized by: LUBNA Solis Consent: Consent obtained: Verbal and emergent situation Consent given by: Patient Risks, benefits, and alternatives were discussed: yes Alternatives discussed: Rate-control medication, alternative treatment, no treatment and observation [place] protocol: Procedure explained and questions answered to patient or proxy's satisfaction: yes Relevant documents present and verified: no Test results available: yes Imaging studies available: yes Required blood products, implants, devices, and special equipment available: yes Site/side marked: no Immediately prior to procedure, a time out was called: yes Patient identity confirmed: Verbally with patient and arm band Pre-procedure details: Cardioversion basis: Emergent Rhythm: Ventricular tachycardia Attempt one: Cardioversion mode: Asynchronous Waveform: Biphasic Shock (Joules): 200 Shock outcome: Conversion to normal sinus rhythm Post-procedure details: Patient status: Awake Procedure completion: Tolerated well, no immediate complications The case discussed with heart failure attending Dr. Negrete, EP fellow interrogated ICD and bedside ECHO, both consistently revealed patient on a fib , RVR and on ventricular fibrillation. His LVAD with NO flow at the time, defibrilated at 200 J x1, asynchronized, post shock back to paced rhythm and LVAD flow back to 4.3 on LVAD monitor. Versed 1 mg, fentanyl 50 mcg were given during the procedure. Associated Order(s): Arterial Line Insertion Arterial Line Insertion Date/Time: 05/19/2023 6:09 PM Performed by: LUBNA Solis Authorized by: LUBNA Solis Consent: Consent obtained: Emergent situation Consent given by: Patient Risks, benefits, and alternatives were discussed: yes Risks discussed: Bleeding, ischemia, infection, pain and repeat procedure [place] protocol: Procedure explained and questions answered to patient or proxy's satisfaction: yes Relevant documents present and verified: yes Test results available: yes Imaging studies available: no Required blood products, implants, devices, and special equipment available: yes Site/side marked: no Immediately prior to procedure, a time out was called: yes Patient identity confirmed: Verbally with patient and arm band Indications: Indications: hemodynamic monitoring Pre-procedure details: Skin preparation: Chlorhexidine Sedation: Sedation type: Anxiolysis Anesthesia: Anesthesia method: Local infiltration Local anesthetic: Lidocaine 1% w/o epi Procedure details: Location: R radial Bandar's test performed: yes Number of attempts: 1 Transducer: waveform confirmed Post-procedure details: Post-procedure: Biopatch applied Procedure completion: Tolerated Comments: Dr. Braxton the anesthesia at bedside and performed the procedure, Natty Metz is a operating room assistant. The patient was prepped and draped in the usual sterile manner using chlorhexidine scrub. 1% lidocaine was used to numb the region. The RIGHT radial artery was palpated and successfully cannulated on the first pass. Pulsatile, arterial blood was visualized and the artery was then threaded using the Seldinger technique and a catheter was then sutured into place. Good wave-form was obtained. The patient tolerated the procedure well without any immediate complications. The area was cleaned and Tegaderm was applied. documented in this encounter [facility] Work Phone: 05-19-2023 Procedure note Associated Ord er(s): Arterial Line Insertion Arterial Line Insertion Date/Time: 05/19/2023 6:09 PM Performed by: LUBNA Solis Authorized by: LUBNA Solis Consent: Consent obtained: Emergent situation Consent given by: Patient Risks, benefits, and alternatives were discussed: yes Risks discussed: Bleeding, ischemia, infection, pain and repeat procedure [place] protocol: Procedure explained and questions answered to patient or proxy's satisfaction: yes Relevant documents present and verified: yes Test results available: yes Imaging studies available: no Required blood products, implants, devices, and special equipment available: yes Site/side marked: no Immediately prior to procedure, a time out was called: yes Patient identity confirmed: Verbally with patient and arm band Indications: Indications: hemodynamic monitoring Pre-procedure details: Skin preparation: Chlorhexidine Sedation: Sedation type: Anxiolysis Anesthesia: Anesthesia method: Local infiltration Local anesthetic: Lidocaine 1% w/o epi Procedure details: Location: R radial Bandar's test performed: yes Number of attempts: 1 Transducer: waveform confirmed Post-procedure details: Post-procedure: Biopatch applied Procedure completion: Tolerated Comments: Dr. Braxton the anesthesia at bedside and performed the procedure, Natty Metz is a operating room assistant. The patient was prepped and draped in the usual sterile manner using chlorhexidine scrub. 1% lidocaine was used to numb the region. The RIGHT radial artery was palpated and successfully cannulated on the first pass. Pulsatile, arterial blood was visualized and the artery was then threaded using the Seldinger technique and a catheter was then sutured into place. Good wave-form was obtained. The patient tolerated the procedure well without any immediate complications. The area was cleaned and Tegaderm was applied. [facility] Work Phone: 05-19-2023 Nurse Note 1707:: time-out for cardioversion, BHAVNA Benavides NP, Dr Dilshad GUZMAN, Dr. Braxton Anesthesia all present. 1708: 1 mg versed given 1709: 25 mcg fentanyl given. 1711: 25 mcg fentanyl given. 1712 200j shock given, a-v paced rhythm achieved 1714 EKG obtained [facility] Work Phone: 05-19-2023 History and physical note [facility] HFICU HISTORY AND PHYSICAL Terry Villalpando/[id number] Admit Date: 05/19/2023 Hospital Length of Stay: 0 ICU Length of Stay: 1h Primary Service: HFICU Referring: Dr. Troy ([facility]) HPI: Terry Saha is a 62-year-old male with PMH of stage D HFrEF (EF 10% -15%) with severe LV dysfunction s/p ICD and HM II LVAD (08/2013 @ [facility]; 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 due to pump thrombosis on Coumatin), CKD, COPD, HTN, Dyslipidemia, T2DM, pAF, GIB, MGUS s/p bone marrow biopsy and subclinical hypothyroidism who initially presented to [facility] today 05/19/2023 with complaints of seven ICD discharges in the morning after taking his morning medications. He reports laying on his couch watching the news when the discharges happened. He reports the need for a new ICD battery and was surprised that it shocked him. Transfer was initiated to [facility] for further workup. Upon admission, patient presented with atrial tachyrhythmia (HR 160-200s), unable to obtain flow readings from the LVAD. He was given 2- 150mg boluses of amiodarone and started on a Amio gtt. He was also given 2g IV Mag and EP was consulted. He denies chest pian, SOB, N/V/, constipation, diarrhea, f/c or sick contacts Cardiac Tests: EKG: Undetermined rhythm, (please refer to patient's chart) ICD Check (05/19/2023): Pending Echocardiogram (08/22/2022): Severely reduced ejection fraction of 10-15%. Mild elevated right ventricle systolic pressure. Mild to moderate MR, AR and mild AR. Chest Radiograph (05/19/2023): Mild perihilar vascular congestion, which is similar when compared to prior exam. Recommend correlation with patient's volume status. Past Medical History: Past Medical History: Diagnosis Date Awaiting organ transplant status 01/12/2016 Awaiting organ transplant CHF (congestive heart failure) ([facility] COPD (chronic obstructive pulmonary disease) ([facility]) Diabetes mellitus ([facility]) Disease of thyroid gland Encounter for other preprocedural examination 02/15/2016 Encounter for pre-transplant evaluation for heart transplant Hypertension Unspecified systolic (congestive) heart failure ([facility]) 12/04/2019 HFrEF (heart failure with reduced ejection fraction) Past Surgical History: Past Surgical History: Procedure Laterality Date CT GUIDED PERCUTANEOUS BIOPSY BONE 12/27/2021 CT GUIDED PERCUTANEOUS BIOPSY BONE 12/27/2021 [facility] OTHER SURGICAL HISTORY 12/04/2019 Ventricular Assist Device Extracorporeal Implantation Family History: Family History Problem Relation Name Age of Onset Coronary artery disease Mother Epilepsy Mother Coronary artery disease Father Social History: Social History Socioeconomic History Marital status: Spouse name: Not on file Number of children: Not on file Years of education: Not on file Highest education level: Not on file Occupational History Not on file Tobacco Use Smoking status: Former Packs/day: 2.00 Years: 20.00 Additional pack years: 0.00 Total pack years: 40.00 Types: Cigarettes Quit date: 2009 Years since quittin.0 Smokeless tobacco: Never Substance and Sexual Activity Alcohol use: Yes Drug use: Never Sexual activity: Defer Other Topics Concern Not on file Social History Narrative Not on file Social Determinants of Health Financial Resource Strain: Low Risk (05/19/2023) Overall Financial Resource Strain (CARDIA) Difficulty of Paying Living Expenses: Not hard at all Food Insecurity: Not on file Transportation Needs: No Transportation Needs (05/19/2023) PRAPARE - Transportation Lack of Transportation (Medical): No Lack of Transportation (Non-Medical): No Physical Activity: Not on file Stress: Not on file Social Connections: Not on file Intimate Partner Violence: Not on file Housing Stability: Low Risk (05/19/2023) Housing Stability Vital Sign Unable to Pay for Housing in the Last Year: No Number of Places Lived in the Last Year: 2 Unstable Housing in the Last Year: No Allergies: No Known Allergies Prior to Admission Meds: Medications Prior to Admission Medication Sig Dispense Refill Last Dose amiodarone (Pacerone) 200 mg tablet Take 1 tablet (200 mg) by mouth once daily. aspirin 81 mg EC tablet Take 1 tablet (81 mg) by mouth once daily. BD Ultra-Fine Short Pen Needle 31 gauge x 5/16 needle USE UP TO 6 TIMES DAILY FOR INJECTIONS carvedilol (Coreg) 6.25 mg tablet Take 1 tablet (6.25 mg) by mouth 2 times a day. cholecalciferol (Vitamin D-3) 50 MCG (2000 UT) tablet Take 1 tablet (50 mcg) by mouth once daily. digoxin (Lanoxin) 125 MCG tablet Take 1 tablet (125 mcg) by mouth 3 times a week. enoxaparin (Lovenox) 100 mg/mL syringe Inject under the skin. Farxiga 10 mg Take 1 tablet (10 mg) by mouth once daily in the morning. Take before meals. fish oil concentrate ([place]-3) 120-180 mg capsule Take 2 capsules (2 g) by mouth 2 times a day. fluticasone (Flonase) 50 mcg/actuation nasal spray Administer 2 sprays into each nostril once daily. gabapentin (Neurontin) 300 mg capsule Take 1 capsule (300 mg) by mouth 2 times a day. insulin aspart (NovoLOG FlexPen U-100 Insulin) 100 unit/mL (3 mL) pen Inject under the skin. insulin detemir (Levemir U-100 Insulin) 100 unit/mL injection Inject 36 Units under the skin. Levemir FlexPen 100 unit/mL (3 mL) pen INJECT 32 UNITS UNDER SKIN TWICE A DAY levothyroxine (Synthroid, Levoxyl) 100 mcg tablet Take 1 tablet (100 mcg) by mouth once daily. lisinopril 5 mg tablet Take 1 tablet (5 mg) by mouth once daily. loratadine (Claritin) 10 mg tablet Take 1 tablet (10 mg) by mouth once daily. rosuvastatin (Crestor) 10 mg tablet Take 1 tablet (10 mg) by mouth once daily. spironolactone (Aldactone) 25 mg tablet Take 1 tablet (25 mg) by mouth once daily. torsemide (Demadex) 20 mg tablet Take 1 tablet (20 mg) by mouth once daily as needed. warfarin (Coumadin) 2 mg tablet Take by mouth. warfarin (Coumadin) 3 mg tablet TAKE 1 & 12 ( 4.5MG) TABLET BY MOUTH DAILY DIRECTED warfarin (Coumadin) 6 mg tablet Take by mouth. Current Medications: Infusions: amiodarone Scheduled: amiodarone, 150 mg, Once amiodarone, 150 mg, Once [Held by provider] amiodarone, 200 mg, Daily aspirin, 81 mg, Daily calcium chloride, 1 g, Once carvedilol, 6.25 mg, BID cholecalciferol, 2,000 Units, Daily [START ON 05/20/2023] dapagliflozin propanediol, 10 mg, Daily before breakfast [START ON 05/20/2023] digoxin, 125 mcg, Once per day on Sat fluticasone, 2 spray, Daily gabapentin, 300 mg, BID insulin detemir, 20 Units, BID AC insulin lispro, 0-10 Units, TID with meals levothyroxine, 100 mcg, Daily lisinopril, 5 mg, Daily loratadine, 10 mg, Daily magnesium sulfate, , magnesium sulfate, 2 g, Once rosuvastatin, 10 mg, Daily spironolactone, 25 mg, Daily warfarin, 4.5 mg, Daily PRN: dextrose 10 % in water (D10W), 0.3 g/kg/hr, Once PRN dextrose, 25 g, q15 min PRN glucagon, 1 mg, q15 min PRN magnesium sulfate, , PHYSICAL EXAM: Visit Vitals Pulse (!) 160 Temp 36.9 C (98.4 F) (Temporal) Resp 26 Ht 1.82 m (5' 11.65 ) Wt 107 kg (234 lb 12.6 oz) SpO2 92% BMI 32.15 kg/m Smoking Status Former BSA 2.33 m Wt Readings from Last 5 Encounters: 05/19/23 107 kg (234 lb 12.6 oz) 02/13/23 110 kg (243 lb) 08/15/22 112 kg (247 lb) 01/25/22 115 kg (253 lb 2 oz) 10/03/21 113 kg (249 lb 6 oz) INTAKE/OUTPUT: No intake/output data recorded. Physical Exam Constitutional: General: He is not in acute distress. Appearance: He is obese. HENT: Head: Normocephalic. Eyes: Pupils: Pupils are equal, round, and reactive to light. Cardiovascular: Rate and Rhythm: Tachycardia present. Rhythm irregular. Comments: Positive LVAD hums Abdominal: General: Abdomen is flat. Bowel sounds are normal. Palpations: Abdomen is soft. Musculoskeletal: General: Normal range of motion. Skin: General: Skin is warm and dry. Neurological: General: No focal deficit present. Mental Status: He is alert and oriented to person, place, and time. Mental status is at baseline. Psychiatric: Mood and Affect: Mood normal. Behavior: Behavior normal. Review of Systems Constitutional: Negative for diaphoresis, fever and unexpected weight change. HENT: Negative for drooling. Eyes: Positive for visual disturbance. Blurred vision Respiratory: Positive for wheezing. Negative for shortness of breath. Cardiovascular: Negative for chest pain, palpitations and leg swelling. Gastrointestinal: Negative for blood in stool, constipation, diarrhea, nausea and vomiting. Endocrine: Negative. Genitourinary: Negative for hematuria. Musculoskeletal: Negative. Skin: LVAD driveline site Allergic/Immunologic: Negative. Neurological: Negative for tremors and weakness. Hematological: Bruises/bleeds easily. On anticoagulant Psychiatric/Behavioral: Negative. DATA: CMP: Recent Labs 12/28/21 0930 12/27/21 0542 12/26/21 1304 03/26/[id number]/24/[id number]/23/21 0705 03/22/21 1710 01/26/20 1300 05/08/18 1623 11/29/17 1529 09/12/17 0507 NA 132* 136 138 134* 137 135* 135* 137 135* 134* < > 132* 136 K 5.1 4.3 4.5 4.3 4.4 4.2 4.1 4.3 4.3 4.4 < > 4.2 3.5 CL 100 103 101 105 105 103 103 107 104 96* < > 95* 100 CO2 21 24 20* 22 23 23 26 22 26 29 < > 27 27 ANIONGAP 16 13 22* 11 13 13 10 12 9* 13 < > 14 13 BUN 24* 22 26* 19 22 26* 25* 19 23 21 < > 26* 24* CREATININE 1.26 1.19 1.27 1.04 1.09 1.26 1.41* 1.08 1.34* 1.50* < > 1.71* 1.26 MG 2.15 -- -- 2.07 2.15 2.13 2.19 2.33 -- -- -- 2.31 2.00 < > = values in this interval not displayed. Recent Labs 12/28/21 0930 12/27/21 0542 12/26/21 1304 03/26/[id number]/23/21 0705 03/22/21 1710 ALBUMIN 4.2 4.0 4.1 4.0 4.1 4.0 3.9 3.8 4.1 ALT 14 13 13 9* 7* 7* 7* -- 6* AST 22 23 16 14 13 13 -- 16 BILITOT 1.2 1.0 0.9 0.8 0.9 1.0 1.2 -- 0.7 CBC: Recent Labs 05/19/23 1237 12/28/21 0930 12/27/21 0542 12/26/21 1304 03/26/21195803/25/216 03/24/21193203/23/214 WBC 6.5 7.5 5.3 5.4 6.6 5.9 6.8 5.4 HGB 15.2 13.7 13.0* 12.9* 8.7* 8.9* 8.8* 8.2* HCT 44.6 45.4 43.2 43.8 31.0* 30.0* 30.2* 29.2* PLT 123* 164 145* 154 179 179 174 147* MCV 91 88 90 91 88 85 86 88 COAG: Recent Labs 05/19/23 1237 05/07/23 0000 04/23/23 0000 04/09/23 0000 03/26/23 0000 03/13/23 0000 02/26/23 0000 02/12/23 0000 INR 2.4* 2.80 2.50 2.10 2.20 2.20 2.10 2.10 ABO: Recent Labs 03/22/21 171 ABO A HEME/ENDO: Recent Labs 05/19/23 1237 03/23/21 2154 11/29/17 1529 09/11/17 1148 FERRITIN -- 16* -- 60 IRONSAT -- NOT CALC. -- 16* TSH 0.98 -- 6.40* 16.12* CARDIAC: Recent Labs 12/28/21 0930 12/27/21 0542 12/26/21 1304 03/26/[id number]/25/[id number]/24/[id number]/23/21215303/22/21 1710 01/26/20 1300 05/08/18 1623 11/29/17 1529 LDH 410* 386* 452* 260* 269* 260* 267* 303* 326* < > 390* BNP -- -- -- -- -- -- -- -- 218* -- 233* < > = values in this interval not displayed. ASSESSMENT AND PLAN: 62-year-old male with PMH significant for of stage D HFrEF (EF 10% -15%) with severe LV dysfunction s/p ICD and HM II LVAD (08/2013 @ [facility]; 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 Initially presented to [facility] today 05/19/2023 with complaints of seven ICD firing in the morning after taking his morning medications, transfer was initiated to [facility] for further workup. Upon admission, patient presented with atrial tachyrhythmia (HR 160-200s), unable to obtain flow readings from the LVAD. He was given 2gm Magnesium IV, Amiodaron 150mg bolus x2 and started on a 1mg/hr Amio gtt. EP was consulted and device interrogated at bedside. Interrogation and bedside ECHO by EP fellow reveals of A fib and V fib, decision was made to bedside defibrillation. S/p defib with 200 J x1 with anesthesia stand by for airway precaution. Successful with paced rhythm and MAPs 70's. Neuro: No active issues - Serial neuro and pain assessments - PO Tylenol PRN for pain - PT/OT Consult, OOB to chair - CAM ICU score every shift - Sleep/wake cycle normalization Cardiovascular: #LVAD (Heartmate II) - Implanted on 08/2013 and replaced on 07/2016 due to device thrombosis Daily VAD Interrogation Device: HM II DTT Admitting doppler MAP: 78 mmHg Speed: 9600, low speed 9200 Power: 4.8 Flow: 4.9 (post DCCV) PI: 1.3 LDH: 395 INR: 2.4 Medications: ASA 81 mg daily Coumadin 4.5 mg daily (patient stable on this dose for past 1 year) PPI 40 mg daily [place] 3 2 grams daily Weekly dressing change #NICM Chronic Systolic HFrEF-EF 10-15% Last TTE (08/22/2022): Severely reduced ejection fraction of 10-15%. Mild elevated right ventricle systolic pressure. Mild to moderate MR, AR and mild AR. - Admitting weight: 107 kg - Admitting BNP: Pending - Admitting Lactate: 1.6 - Continue home medications Carvedilol 6.25 mcg Dapagliflozin propanediol 10 mg Lisinopril 5 mg Rosuvastatin 10 mg Spironolactone 25 mg Digoxin 125 mcg (M,W,F) - Dig level: 0.46 Torsemide 20mg PRN -consider formal Echo on Saturday -Daily weights, strict I&Os #Afib RVR & Ventricular fibrillation - Presented to HFICU with rate of 150-200 BPM - ICD interrogation - informal performed by EP fellow at bedside, will need formal device interrogation on Saturday - Informal bedside ECHO performed by EP fellow and recommended STAT DCCV - Success DCCV 05/19/23, convert from Afib/Vfib to underlying AV paced rhythm after 200J defibrillation - Amiodarone 150 mg bolus x2 + gtt @ 1 mg/min - Continue home Warfarin, INR 2.4 - Continue home cardiac medications - EP consulted and following #Electrolyte Disturbances - Ionized calcium 0.84, replaced by 1 gram calcium chloride - BMP: K4.1, Na 132, Cl 100. Pulmonary: #COPD - CXR: Mild perihilar vascular congestion, which is similar when compared to prior exam. Recommend correlation with patient's volume status. - SPO2 goal > 90%, currently on 2L NC - PRN Duonebs for wheezing and SOB GI: - Prophylaxis pantoprazole 40 mg daily - Daily stool softeners + PRN laxatives for constipation : -Baseline BUN/Cr: 22-/1.19-1.27 -Admit BUN/Cr: /1.12 -I/Os -avoid hypotension and nephrotoxic agents Endo: #DM II - HgbA1C: 8.9; EST AVG GLUC 209 - Insulin levemir 20 units BID - Sliding scale #2 TID with meals - Continue home Dapagliflozin 10mg daily #Hypothyroidism - TSH: 0.98 - Continue home levothyroxine 100 mcg daily ID: -Afebrile, nontoxic, no s/s infx -WBC 6.5 LINES: PIVs Right radial Arterial line- 05/19 DVT: on coumadin VAP BUNDLE: NA ULCER PPX: Pantoprazole 40 mg daily GLYCEMIC CONTROL: Insulin Detemir and Sliding scale #2 BOWEL CARE: Stool softeners and PRN laxatives INDWELLING CATHETER: NA NUTRITION: Adult diet Carb Controlled; 60 gram carb/meal, 30 gram Carb evening snack EMERGENCY CONTACT: Extended Emergency Contact Information Primary Emergency Contact: Beatriz Kelly Relation: Child FAMILY UPDATE: CODE STATUS: Full Code DISPO: remain in HFICU Patient seen and assessed with Dr. Negrete LUBNA Mccullough [facility] Work Phone: 05-19-2023 History and physical note [facility] HFICU HISTORY AND PHYSICAL Terry Villalpando/[id number] Admit Date: 05/19/2023 Hospital Length of Stay: 0 ICU Length of Stay: 1h Primary Service: HFICU Referring: Dr. Troy ([facility]) HPI: Terry Saha is a 62-year-old male with PMH of stage D HFrEF (EF 10% -15%) with severe LV dysfunction s/p ICD and HM II LVAD (08/2013 @ [facility]; 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 due to pump thrombosis on Coumatin), CKD, COPD, HTN, Dyslipidemia, T2DM, pAF, GIB, MGUS s/p bone marrow biopsy and subclinical hypothyroidism who initially presented to [facility] today 05/19/2023 with complaints of seven ICD discharges in the morning after taking his morning medications. He reports laying on his couch watching the news when the discharges happened. He reports the need for a new ICD battery and was surprised that it shocked him. Transfer was initiated to [facility] for further workup. Upon admission, patient presented with atrial tachyrhythmia (HR 160-200s), unable to obtain flow readings from the LVAD. He was given 2- 150mg boluses of amiodarone and started on a Amio gtt. He was also given 2g IV Mag and EP was consulted. He denies chest pian, SOB, N/V/, constipation, diarrhea, f/c or sick contacts Cardiac Tests: EKG: Undetermined rhythm, (please refer to patient's chart) ICD Check (05/19/2023): Pending Echocardiogram (08/22/2022): Severely reduced ejection fraction of 10-15%. Mild elevated right ventricle systolic pressure. Mild to moderate MR, AR and mild AR. Chest Radiograph (05/19/2023): Mild perihilar vascular congestion, which is similar when compared to prior exam. Recommend correlation with patient's volume status. Past Medical History: Past Medical History: Diagnosis Date Awaiting organ transplant status 01/12/2016 Awaiting organ transplant CHF (congestive heart failure) ([facility] COPD (chronic obstructive pulmonary disease) ([facility]) Diabetes mellitus ([facility]) Disease of thyroid gland Encounter for other preprocedural examination 02/15/2016 Encounter for pre-transplant evaluation for heart transplant Hypertension Unspecified systolic (congestive) heart failure ([facility]) 12/04/2019 HFrEF (heart failure with reduced ejection fraction) Past Surgical History: Past Surgical History: Procedure Laterality Date CT GUIDED PERCUTANEOUS BIOPSY BONE 12/27/2021 CT GUIDED PERCUTANEOUS BIOPSY BONE 12/27/20[place] [facility] OTHER SURGICAL HISTORY 12/04/2019 Ventricular Assist Device Extracorporeal Implantation Family History: Family History Problem Relation Name Age of Onset Coronary artery disease Mother Epilepsy Mother Coronary artery disease Father Social History: Social History Socioeconomic History Marital status: Spouse name: Not on file Number of children: Not on file Years of education: Not on file Highest education level: Not on file Occupational History Not on file Tobacco Use Smoking status: Former Packs/day: 2.00 Years: 20.00 Additional pack years: 0.00 Total pack years: 40.00 Types: Cigarettes Quit date: 2009 Years since quittin.0 Smokeless tobacco: Never Substance and Sexual Activity Alcohol use: Yes Drug use: Never Sexual activity: Defer Other Topics Concern Not on file Social History Narrative Not on file Social Determinants of Health Financial Resource Strain: Low Risk (05/19/2023) Overall Financial Resource Strain (CARDIA) Difficulty of Paying Living Expenses: Not hard at all Food Insecurity: Not on file Transportation Needs: No Transportation Needs (05/19/2023) PRAPARE - Transportation Lack of Transportation (Medical): No Lack of Transportation (Non-Medical): No Physical Activity: Not on file Stress: Not on file Social Connections: Not on file Intimate Partner Violence: Not on file Housing Stability: Low Risk (05/19/2023) Housing Stability Vital Sign Unable to Pay for Housing in the Last Year: No Number of Places Lived in the Last Year: 2 Unstable Housing in the Last Year: No Allergies: No Known Allergies Prior to Admission Meds: Medications Prior to Admission Medication Sig Dispense Refill Last Dose amiodarone (Pacerone) 200 mg tablet Take 1 tablet (200 mg) by mouth once daily. aspirin 81 mg EC tablet Take 1 tablet (81 mg) by mouth once daily. BD Ultra-Fine Short Pen Needle 31 gauge x 5/16 needle USE UP TO 6 TIMES DAILY FOR INJECTIONS carvedilol (Coreg) 6.25 mg tablet Take 1 tablet (6.25 mg) by mouth 2 times a day. cholecalciferol (Vitamin D-3) 50 MCG (2000 UT) tablet Take 1 tablet (50 mcg) by mouth once daily. digoxin (Lanoxin) 125 MCG tablet Take 1 tablet (125 mcg) by mouth 3 times a week. enoxaparin (Lovenox) 100 mg/mL syringe Inject under the skin. Farxiga 10 mg Take 1 tablet (10 mg) by mouth once daily in the morning. Take before meals. fish oil concentrate ([place]-3) 120-180 mg capsule Take 2 capsules (2 g) by mouth 2 times a day. fluticasone (Flonase) 50 mcg/actuation nasal spray Administer 2 sprays into each nostril once daily. gabapentin (Neurontin) 300 mg capsule Take 1 capsule (300 mg) by mouth 2 times a day. insulin aspart (NovoLOG FlexPen U-100 Insulin) 100 unit/mL (3 mL) pen Inject under the skin. insulin detemir (Levemir U-100 Insulin) 100 unit/mL injection Inject 36 Units under the skin. Levemir FlexPen 100 unit/mL (3 mL) pen INJECT 32 UNITS UNDER SKIN TWICE A DAY levothyroxine (Synthroid, Levoxyl) 100 mcg tablet Take 1 tablet (100 mcg) by mouth once daily. lisinopril 5 mg tablet Take 1 tablet (5 mg) by mouth once daily. loratadine (Claritin) 10 mg tablet Take 1 tablet (10 mg) by mouth once daily. rosuvastatin (Crestor) 10 mg tablet Take 1 tablet (10 mg) by mouth once daily. spironolactone (Aldactone) 25 mg tablet Take 1 tablet (25 mg) by mouth once daily. torsemide (Demadex) 20 mg tablet Take 1 tablet (20 mg) by mouth once daily as needed. warfarin (Coumadin) 2 mg tablet Take by mouth. warfarin (Coumadin) 3 mg tablet TAKE 1 & 12 ( 4.5MG) TABLET BY MOUTH DAILY DIRECTED warfarin (Coumadin) 6 mg tablet Take by mouth. Current Medications: Infusions: amiodarone Scheduled: amiodarone, 150 mg, Once amiodarone, 150 mg, Once [Held by provider] amiodarone, 200 mg, Daily aspirin, 81 mg, Daily calcium chloride, 1 g, Once carvedilol, 6.25 mg, BID cholecalciferol, 2,000 Units, Daily [START ON 05/20/2023] dapagliflozin propanediol, 10 mg, Daily before breakfast [START ON 05/20/2023] digoxin, 125 mcg, Once per day on Sat fluticasone, 2 spray, Daily gabapentin, 300 mg, BID insulin detemir, 20 Units, BID AC insulin lispro, 0-10 Units, TID with meals levothyroxine, 100 mcg, Daily lisinopril, 5 mg, Daily loratadine, 10 mg, Daily magnesium sulfate, , magnesium sulfate, 2 g, Once rosuvastatin, 10 mg, Daily spironolactone, 25 mg, Daily warfarin, 4.5 mg, Daily PRN: dextrose 10 % in water (D10W), 0.3 g/kg/hr, Once PRN dextrose, 25 g, q15 min PRN glucagon, 1 mg, q15 min PRN magnesium sulfate, , PHYSICAL EXAM: Visit Vitals Pulse (!) 160 Temp 36.9 C (98.4 F) (Temporal) Resp 26 Ht 1.82 m (5' 11.65 ) Wt 107 kg (234 lb 12.6 oz) SpO2 92% BMI 32.15 kg/m Smoking Status Former BSA 2.33 m Wt Readings from Last 5 Encounters: 05/19/23 107 kg (234 lb 12.6 oz) 02/13/23 110 kg (243 lb) 08/15/22 112 kg (247 lb) 01/25/22 115 kg (253 lb 2 oz) 10/03/21 113 kg (249 lb 6 oz) INTAKE/OUTPUT: No intake/output data recorded. Physical Exam Constitutional: General: He is not in acute distress. Appearance: He is obese. HENT: Head: Normocephalic. Eyes: Pupils: Pupils are equal, round, and reactive to light. Cardiovascular: Rate and Rhythm: Tachycardia present. Rhythm irregular. Comments: Positive LVAD hums Abdominal: General: Abdomen is flat. Bowel sounds are normal. Palpations: Abdomen is soft. Musculoskeletal: General: Normal range of motion. Skin: General: Skin is warm and dry. Neurological: General: No focal deficit present. Mental Status: He is alert and oriented to person, place, and time. Mental status is at baseline. Psychiatric: Mood and Affect: Mood normal. Behavior: Behavior normal. Review of Systems Constitutional: Negative for diaphoresis, fever and unexpected weight change. HENT: Negative for drooling. Eyes: Positive for visual disturbance. Blurred vision Respiratory: Positive for wheezing. Negative for shortness of breath. Cardiovascular: Negative for chest pain, palpitations and leg swelling. Gastrointestinal: Negative for blood in stool, constipation, diarrhea, nausea and vomiting. Endocrine: Negative. Genitourinary: Negative for hematuria. Musculoskeletal: Negative. Skin: LVAD driveline site Allergic/Immunologic: Negative. Neurological: Negative for tremors and weakness. Hematological: Bruises/bleeds easily. On anticoagulant Psychiatric/Behavioral: Negative. DATA: CMP: Recent Labs 12/28/21 0930 12/27/21 0542 12/26/21 1304 03/26/21 1959 03/25/21 1856 03/24/21 1933 03/23/21 2154 03/23/21 0705 03/22/21 1710 01/26/20 1300 05/08/18 1623 11/29/17 1529 09/12/17 0507 NA 132* 136 138 134* 137 135* 135* 137 135* 134* < > 132* 136 K 5.1 4.3 4.5 4.3 4.4 4.2 4.1 4.3 4.3 4.4 < > 4.2 3.5 CL 100 103 101 105 105 103 103 107 104 96* < > 95* 100 CO2 21 24 20* 22 23 23 26 22 26 29 < > 27 27 ANIONGAP 16 13 22* 11 13 13 10 12 9* 13 < > 14 13 BUN 24* 22 26* 19 22 26* 25* 19 23 21 < > 26* 24* CREATININE 1.26 1.19 1.27 1.04 1.09 1.26 1.41* 1.08 1.34* 1.50* < > 1.71* 1.26 MG 2.15 -- -- 2.07 2.15 2.13 2.19 2.33 -- -- -- 2.31 2.00 < > = values in this interval not displayed. Recent Labs 12/28/21 0930 12/27/21 0542 12/26/21 1304 03/26/[id number]/25/[id number]/23/21 21503/23/21 0705 03/22/21 1710 ALBUMIN 4.2 4.0 4.1 4.0 4.1 4.0 3.9 3.8 4.1 ALT 14 13 13 9* 7* 7* 7* -- 6* AST 16 14 13 13 -- 16 BILITOT 1.2 1.0 0.9 0.8 0.9 1.0 1.2 -- 0.7 CBC: Recent Labs 05/19/23 1237 12/28/21 0930 12/27/21 0542 12/26/21 1304 03/26/[id number]/23/214 WBC 6.5 7.5 5.3 5.4 6.6 5.9 6.8 5.4 HGB 15.2 13.7 13.0* 12.9* 8.7* 8.9* 8.8* 8.2* HCT 44.6 45.4 43.2 43.8 31.0* 30.0* 30.2* 29.2* PLT 123* 164 145* 154 179 179 174 147* MCV 91 88 90 91 88 85 86 88 COAG: Recent Labs 05/19/23 1237 05/07/23 0000 04/23/23 0000 04/09/23 0000 03/26/23 0000 03/13/23 0000 02/26/23 0000 02/12/23 0000 INR 2.4* 2.80 2.50 2.10 2.20 2.20 2.10 2.10 ABO: Recent Labs 03/22/21 1710 ABO A HEME/ENDO: Recent Labs 05/19/23 1237 03/23/21 2154 11/29/17 1529 09/11/17 1148 FERRITIN -- 16* -- 60 IRONSAT -- NOT CALC. -- 16* TSH 0.98 -- 6.40* 16.12* CARDIAC: Recent Labs 12/28/21 0930 12/27/21 0542 12/26/21 1304 03/26/21 1959 03/25/21 1856 03/24/21 1933 03/23/21 2154 03/22/21 1710 01/26/20 1300 05/08/18 1623 11/29/17 1529 LDH 410* 386* 452* 260* 269* 260* 267* 303* 326* < > 390* BNP -- -- -- -- -- -- -- -- 218* -- 233* < > = values in this interval not displayed. ASSESSMENT AND PLAN: 62-year-old male with PMH significant for of stage D HFrEF (EF 10% -15%) with severe LV dysfunction s/p ICD and HM II LVAD (08/2013 @ [facility]; 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 Initially presented to [facility] today 05/19/2023 with complaints of seven ICD firing in the morning after taking his morning medications, transfer was initiated to [facility] for further workup. Upon admission, patient presented with atrial tachyrhythmia (HR 160-200s), unable to obtain flow readings from the LVAD. He was given 2gm Magnesium IV, Amiodaron 150mg bolus x2 and started on a 1mg/hr Amio gtt. EP was consulted and device interrogated at bedside. Interrogation and bedside ECHO by EP fellow reveals of A fib and V fib, decision was made to bedside defibrillation. S/p defib with 200 J x1 with anesthesia stand by for airway precaution. Successful with paced rhythm and MAPs 70's. Neuro: No active issues - Serial neuro and pain assessments - PO Tylenol PRN for pain - PT/OT Consult, OOB to chair - CAM ICU score every shift - Sleep/wake cycle normalization Cardiovascular: #LVAD (Heartmate II) - Implanted on 08/2013 and replaced on 07/2016 due to device thrombosis Daily VAD Interrogation Device: HM II DTT Admitting doppler MAP: 78 mmHg Speed: 9600, low speed 9200 Power: 4.8 Flow: 4.9 (post DCCV) PI: 1.3 LDH: 395 INR: 2.4 Medications: ASA 81 mg daily Coumadin 4.5 mg daily (patient stable on this dose for past 1 year) PPI 40 mg daily [place] 3 2 grams daily Weekly dressing change #NICM Chronic Systolic HFrEF-EF 10-15% Last TTE (08/22/2022): Severely reduced ejection fraction of 10-15%. Mild elevated right ventricle systolic pressure. Mild to moderate MR, AR and mild AR. - Admitting weight: 107 kg - Admitting BNP: Pending - Admitting Lactate: 1.6 - Continue home medications Carvedilol 6.25 mcg Dapagliflozin propanediol 10 mg Lisinopril 5 mg Rosuvastatin 10 mg Spironolactone 25 mg Digoxin 125 mcg (M,W,F) - Dig level: 0.46 Torsemide 20mg PRN -consider formal Echo on Saturday -Daily weights, strict I&Os #Afib RVR & Ventricular fibrillation - Presented to HFICU with rate of 150-200 BPM - ICD interrogation - informal performed by EP fellow at bedside, will need formal device interrogation on Saturday - Informal bedside ECHO performed by EP fellow and recommended STAT DCCV - Success DCCV 05/19/23, convert from Afib/Vfib to underlying AV paced rhythm after 200J defibrillation - Amiodarone 150 mg bolus x2 + gtt @ 1 mg/min - Continue home Warfarin, INR 2.4 - Continue home cardiac medications - EP consulted and following #Electrolyte Disturbances - Ionized calcium 0.84, replaced by 1 gram calcium chloride - BMP: K4.1, Na 132, Cl 100. Pulmonary: #COPD - CXR: Mild perihilar vascular congestion, which is similar when compared to prior exam. Recommend correlation with patient's volume status. - SPO2 goal > 90%, currently on 2L NC - PRN Duonebs for wheezing and SOB GI: - Prophylaxis pantoprazole 40 mg daily - Daily stool softeners + PRN laxatives for constipation : -Baseline BUN/Cr: 22-26/1.19-1.27 -Admit BUN/Cr: 22/1.12 -I/Os -avoid hypotension and nephrotoxic agents Endo: #DM II - HgbA1C: 8.9; EST AVG GLUC 209 - Insulin levemir 20 units BID - Sliding scale #2 TID with meals - Continue home Dapagliflozin 10mg daily #Hypothyroidism - TSH: 0.98 - Continue home levothyroxine 100 mcg daily ID: -Afebrile, nontoxic, no s/s infx -WBC 6.5 LINES: PIVs Right radial Arterial line- 05/19 DVT: on coumadin VAP BUNDLE: NA ULCER PPX: Pantoprazole 40 mg daily GLYCEMIC CONTROL: Insulin Detemir and Sliding scale #2 BOWEL CARE: Stool softeners and PRN laxatives INDWELLING CATHETER: NA NUTRITION: Adult diet Carb Controlled; 60 gram carb/meal, 30 gram Carb evening snack EMERGENCY CONTACT: Extended Emergency Contact Information Primary Emergency Contact: Beatriz Kelly Relation: Child FAMILY UPDATE: CODE STATUS: Full Code DISPO: remain in HFICU Patient seen and assessed with Dr. Negrete LUBNA Mccullough documented in this encounter [facility] Work Phone: 05-19-2023 Consult note Associated Order (s): IP CONSULT TO ELECTROPHYSIOLOGY Images from the original note were not included. History and Present Illness: Primary LVAD [employer] Worker: Dr. Lay Vaca with co-management with [facility] (Dr Yi) Mr. Villalpando is a 62 y/o male with a PMHx sig for stage D systolic HF/NICM/HFrEF with severe LV dysfunction s/p [employer] ICD s/p HM II LVAD (08/2013 at [facility]; exchanged to HM II LVAD 07/[address] [facility] for pump thrombosis) with associated RV dysfunction, CKD, dyslipidemia, DM, paroxysmal AF, subclinical hypothyroidism, and IgA MGUS, who was admitted to [facility] HFICU due to post-ICD shock. Per patient, around 4:30 this morning, ICD shocked him without proceeding cardiopulmonary symptoms. Cardiac Data: 12-lead ECG 05/19/2023: wide QRS irregularly irregular tachycardia TTE @[facility] in 08/2022: LVEF 10-15% with severely dilated LV, severely dilated RV with severe systolic dysfunction, mild-moderate MR, mild-moderate AI Presenting 12-lead ECG @ [facility] on 05/19/2023: CIED interrogation @ [facility]: - battery: reached to [employer] on 07/13/2019 - RA lead function was not assessed due to underlying AF - RV lead function was normal: capture (0.5 V/0.4 ms), sensing 11.8 mV, and 430 Ohm - DDDR 80-115 bpm - AP < 1% and BALLET MASTER/MISTRESS 99 % since 11/16/2019 - There were 2 VT episodes and 3 VF episodes this morning. -> The reported VF episodes had very small amplitude of irregularly irregular atrial signals under-sensed by ICD. The CL of sensed ventricular signals were also labile 160-188 msec suggestive for VF. -> Similarly, the reported VT episodes had under-sensed atrial signals and the CL of RV signals were stable at 300-310 msec reaching to VT zone. CIED Interrogation with bipolar sensing on both RA and RV leads on 05/19/2023 @[facility] HFICU: Bedside TTE on 05/19/2023: biventiruclar standstill Objective Data: Last Recorded Vitals: There were no vitals filed for this visit. Last Labs: CBC - No results in last year. _ _ _ _ CMP - No results in last year. _ _ _ --- _ _ _ _ _ PTT - No results in last year. 2.80 _ _ BNP Date/Time Value Ref Range Status 01/26/2020 01:00 PM 218 0 - 99 pg/mL Final Comment: . <100 pg/mL - Heart failure unlikely 100-299 pg/mL - Intermediate probability of acute heart . failure exacerbation. Correlate with clinical . context and patient history. >=300 pg/mL - Heart Failure likely. Correlate with clinical . context and patient history. Biotin interference may cause falsely decreased results. Patients taking a Biotin dose of up to 5 mg/day should refrain from taking Biotin for 24 hours before sample collection. Providers may contact their local laboratory for further information. 11/29/2017 03:29 PM 233 0 - 99 pg/mL Final Comment: . <100 pg/mL - Heart failure unlikely 100-299 pg/mL - Intermediate probability of acute heart . failure exacerbation. Correlate with clinical . context and patient history. >=300 pg/mL - Heart Failure likely. Correlate with clinical . context and patient history. BNP testing is performed using different testing methodology at [facility] than at other [facility]. Direct result comparisons should only be made within the same method. VLDL Date/Time Value Ref Range Status 05/08/2018 04:23 PM 31 0 - 40 mg/dL Final Last I/O: No intake/output data recorded. Past Cardiology Tests (Last 3 Years): EKG: No results found for this or any previous visit from the past 1095 days. Echo: No results found for this or any previous visit from the past 1095 days. Ejection Fractions: No results found for: EF Cath: No results found for this or any previous visit from the past 1095 days. Stress Test: No results found for this or any previous visit from the past 1095 days. Cardiac Imaging: No results found for this or any previous visit from the past 1095 days. Inpatient Medications: Scheduled medications Medication Dose Route Frequency amiodarone 150 mg intravenous Once amiodarone amiodarone 200 mg oral Daily aspirin 81 mg oral Daily carvedilol 6.25 mg oral BID cholecalciferol 2,000 Units oral Daily [START ON 05/20/2023] dapagliflozin propanediol 10 mg oral Daily before breakfast [START ON 05/20/2023] digoxin 125 mcg oral Once per day on Sat fluticasone 2 spray Each Nostril Daily gabapentin 300 mg oral BID levothyroxine 100 mcg oral Daily lisinopril 5 mg oral Daily loratadine 10 mg oral Daily magnesium sulfate magnesium sulfate magnesium sulfate 2 g intravenous Once rosuvastatin 10 mg oral Daily spironolactone 25 mg oral Daily PRN medications Medication amiodarone magnesium sulfate magnesium sulfate Continuous Medications Medication Dose Last Rate amiodarone 1 mg/min Physical Exam: GENERAL: No weight loss, malaise or fevers. No night sweats. HEENT: Negative for headaches, No changes in hearing or vision, no nose bleeds or other nasal problems. RESPIRATORY: Negative for cough, wheezing and shortness of breath CARDIOVASCULAR: Negative for chest pain, leg swelling and palpitations GI: Negative for abdominal discomfort, blood in stools or black stools and change in bowel habits : Negative for dysuria, frequency and incontinence MUSCULOSKELETAL: Negative for joint pain or swelling, back pain, and muscle pain. SKIN: Negative for lesions, rash, and itching. HEMATOLOGY/LYMPHOLOGY Negative for prolonged bleeding, bruising easily, and swollen nodes. NEURO: Negative for numbness or tingling of hands/feet. No weakness. Assessment/Plan Primary LVAD [employer] Worker: Dr. Lay Vaca with co-management with [facility] (Dr Yi) Mr. Villalpando is a 62 y/o male with a PMHx sig for stage D systolic HF/NICM/HFrEF with severe LV dysfunction s/p ICD s/p HM II LVAD (08/2013 at [facility]; exchanged to HM II LVAD 07/[address] [facility] for pump thrombosis) with associated RV dysfunction, CKD, dyslipidemia, DM, paroxysmal AF, subclinical hypothyroidism, and IgA MGUS, who was admitted to [facility] HFICU due to post-ICD shock and sustained VT. Per patient, around 4:30 this morning, ICD shocked him without proceeding cardiopulmonary symptoms. Based on the CIED interrogation @ [facility] this morning, his RA lead function was unclear but the RV lead function was normal. In the morning of 05/19/2023, patient developed VT (stable CL around 300 msec) and VF (labile CL around less than 200 msec) with underlying AF and he was appropriately shocked. Impressions: - Patient currently has dual tachycardia: persistent AF and VF: My bedside TTE showed biventricular standstill. - Hemodynamically well-supported presentation with LVAD: lactate 1.6 on this admission - Appropriately shocked [id number] VT and VF episodes - NO obvious ICD leads dislodgement on CXR today - Unclear RA lead function but normal RV lead function with unclear ICD battery status - normal TSH and Digoxin level on this admission Recommendations: - Given the patient's RV function will not tolerate with sustained VF and acute RV dysfunction will make LVAD support inefficient soon, please perform defibrillation shock as soon as possible. His INR level was therapeutic on this admission. Due to his biventircular dysfunction, this case may need anesthesia support. - Keep K> 4.0 and Mg >2.0 - Please ask device clinic to interrogate his ICD again tomorrow morning. This financial writer was unable to obtain full ICD information this afternoon. - s/p Amiodarone bolus -> continue current Amiodarone drip - The indication of his dcICD generator replacement and the initiation of life-long Amiodarone for his AF and concurrent VT/VF need to be discussed with HF team later. Klaus Art MD Clinical Cardiac Electrophysiology Fellow Code Status: No Order I spent 45 minutes in the professional and overall care of this patient. Klaus Art MD [facility] Work Phone: 05-19-2023 Consult note Associated Order (s): IP CONSULT TO ELECTROPHYSIOLOGY Images from the original note were not included. History and Present Illness: Primary LVAD [employer] Worker: Dr. Lay Vaca with co-management with [facility] (Dr Yi) Mr. Villalpando is a 62 y/o male with a PMHx sig for stage D systolic HF/NICM/HFrEF with severe LV dysfunction s/p [employer] ICD s/p HM II LVAD (08/2013 at [facility]; exchanged to HM II LVAD 07/[address] [facility] for pump thrombosis) with associated RV dysfunction, CKD, dyslipidemia, DM, paroxysmal AF, subclinical hypothyroidism, and IgA MGUS, who was admitted to [facility] HFICU due to post-ICD shock. Per patient, around 4:30 this morning, ICD shocked him without proceeding cardiopulmonary symptoms. Cardiac Data: 12-lead ECG 05/19/2023: wide QRS irregularly irregular tachycardia TTE @[facility] in 08/2022: LVEF 10-15% with severely dilated LV, severely dilated RV with severe systolic dysfunction, mild-moderate MR, mild-moderate AI Presenting 12-lead ECG @ [facility] on 05/19/2023: CIED interrogation @ [facility]: - battery: reached to [employer] on 07/13/2019 - RA lead function was not assessed due to underlying AF - RV lead function was normal: capture (0.5 V/0.4 ms), sensing 11.8 mV, and 430 Ohm - DDDR 80-115 bpm - AP < 1% and BALLET MASTER/MISTRESS 99 % since 11/16/2019 - There were 2 VT episodes and 3 VF episodes this morning. -> The reported VF episodes had very small amplitude of irregularly irregular atrial signals under-sensed by ICD. The CL of sensed ventricular signals were also labile 160-188 msec suggestive for VF. -> Similarly, the reported VT episodes had under-sensed atrial signals and the CL of RV signals were stable at 300-310 msec reaching to VT zone. CIED Interrogation with bipolar sensing on both RA and RV leads on 05/19/2023 @[facility] HFICU: Bedside TTE on 05/19/2023: biventiruclar standstill Objective Data: Last Recorded Vitals: There were no vitals filed for this visit. Last Labs: CBC - No results in last year. _ _ _ _ CMP - No results in last year. _ _ _ --- _ _ _ _ _ PTT - No results in last year. 2.80 _ _ BNP Date/Time Value Ref Range Status 01/26/2020 01:00 PM 218 0 - 99 pg/mL Final Comment: . <100 pg/mL - Heart failure unlikely 100-299 pg/mL - Intermediate probability of acute heart . failure exacerbation. Correlate with clinical . context and patient history. >=300 pg/mL - Heart Failure likely. Correlate with clinical . context and patient history. Biotin interference may cause falsely decreased results. Patients taking a Biotin dose of up to 5 mg/day should refrain from taking Biotin for 24 hours before sample collection. Providers may contact their local laboratory for further information. 11/29/2017 03:29 PM 233 0 - 99 pg/mL Final Comment: . <100 pg/mL - Heart failure unlikely 100-299 pg/mL - Intermediate probability of acute heart . failure exacerbation. Correlate with clinical . context and patient history. >=300 pg/mL - Heart Failure likely. Correlate with clinical . context and patient history. BNP testing is performed using different testing methodology at [facility] than at other [facility]. Direct result comparisons should only be made within the same method. VLDL Date/Time Value Ref Range Status 05/08/2018 04:23 PM 31 0 - 40 mg/dL Final Last I/O: No intake/output data recorded. Past Cardiology Tests (Last 3 Years): EKG: No results found for this or any previous visit from the past 1095 days. Echo: No results found for this or any previous visit from the past 1095 days. Ejection Fractions: No results found for: EF Cath: No results found for this or any previous visit from the past 1095 days. Stress Test: No results found for this or any previous visit from the past 1095 days. Cardiac Imaging: No results found for this or any previous visit from the past 1095 days. Inpatient Medications: Scheduled medications Medication Dose Route Frequency amiodarone 150 mg intravenous Once amiodarone amiodarone 200 mg oral Daily aspirin 81 mg oral Daily carvedilol 6.25 mg oral BID cholecalciferol 2,000 Units oral Daily [START ON 05/20/2023] dapagliflozin propanediol 10 mg oral Daily before breakfast [START ON 05/20/2023] digoxin 125 mcg oral Once per day on Sat fluticasone 2 spray Each Nostril Daily gabapentin 300 mg oral BID levothyroxine 100 mcg oral Daily lisinopril 5 mg oral Daily loratadine 10 mg oral Daily magnesium sulfate magnesium sulfate magnesium sulfate 2 g intravenous Once rosuvastatin 10 mg oral Daily spironolactone 25 mg oral Daily PRN medications Medication amiodarone magnesium sulfate magnesium sulfate Continuous Medications Medication Dose Last Rate amiodarone 1 mg/min Physical Exam: GENERAL: No weight loss, malaise or fevers. No night sweats. HEENT: Negative for headaches, No changes in hearing or vision, no nose bleeds or other nasal problems. RESPIRATORY: Negative for cough, wheezing and shortness of breath CARDIOVASCULAR: Negative for chest pain, leg swelling and palpitations GI: Negative for abdominal discomfort, blood in stools or black stools and change in bowel habits : Negative for dysuria, frequency and incontinence MUSCULOSKELETAL: Negative for joint pain or swelling, back pain, and muscle pain. SKIN: Negative for lesions, rash, and itching. HEMATOLOGY/LYMPHOLOGY Negative for prolonged bleeding, bruising easily, and swollen nodes. NEURO: Negative for numbness or tingling of hands/feet. No weakness. Assessment/Plan Primary LVAD [employer] Worker: Dr. Lay Vaca with co-management with [facility] (Dr Yi) Mr. Villalpando is a 62 y/o male with a PMHx sig for stage D systolic HF/NICM/HFrEF with severe LV dysfunction s/p ICD s/p HM II LVAD (08/2013 at [facility]; exchanged to HM II LVAD 07/[address] [facility] for pump thrombosis) with associated RV dysfunction, CKD, dyslipidemia, DM, paroxysmal AF, subclinical hypothyroidism, and IgA MGUS, who was admitted to [facility] HFICU due to post-ICD shock and sustained VT. Per patient, around 4:30 this morning, ICD shocked him without proceeding cardiopulmonary symptoms. Based on the CIED interrogation @ [facility] this morning, his RA lead function was unclear but the RV lead function was normal. In the morning of 05/19/2023, patient developed VT (stable CL around 300 msec) and VF (labile CL around less than 200 msec) with underlying AF and he was appropriately shocked. Impressions: - Patient currently has dual tachycardia: persistent AF and VF: My bedside TTE showed biventricular standstill. - Hemodynamically well-supported presentation with LVAD: lactate 1.6 on this admission - Appropriately shocked [id number] VT and VF episodes - NO obvious ICD leads dislodgement on CXR today - Unclear RA lead function but normal RV lead function with unclear ICD battery status - normal TSH and Digoxin level on this admission Recommendations: - Given the patient's RV function will not tolerate with sustained VF and acute RV dysfunction will make LVAD support inefficient soon, please perform defibrillation shock as soon as possible. His INR level was therapeutic on this admission. Due to his biventircular dysfunction, this case may need anesthesia support. - Keep K> 4.0 and Mg >2.0 - Please ask device clinic to interrogate his ICD again tomorrow morning. This financial writer was unable to obtain full ICD information this afternoon. - s/p Amiodarone bolus -> continue current Amiodarone drip - The indication of his dcICD generator replacement and the initiation of life-long Amiodarone for his AF and concurrent VT/VF need to be discussed with HF team later. lKaus Art MD Clinical Cardiac Electrophysiology Fellow Code Status: No Order I spent 45 minutes in the professional and overall care of this patient. Klaus Art MD documented in this encounter [facility] Work Phone: 04-07-2023 Hospital Discharge instructions Patient Education 04/07/2023 17:06:00 Contusion Contusion A contusion is a deep bruise. Contusions are the result of a blunt injury to tissues and muscle fibers under the skin. The injury causes bleeding under the skin. The skin overlying the contusion may turn blue, purple, or yellow. Minor injuries will give you a painless contusion, but more severe injuries cause contusions that may stay painful and swollen for a few weeks. Follow these instructions at home: Pay attention to any changes in your symptoms. Let your health care provider know about them. Take these actions to relieve your pain. Managing pain, stiffness, and swelling Use resting, icing, applying pressure (compression), and raising (elevating) the injured area. This is often called the RICE strategy. ?Rest the injured area. Return to your normal activities as told by your health care provider. Ask your health care provider what activities are safe for you. ?If directed, put ice on the injured area: ?Put ice in a plastic bag. ?Place a towel between your skin and the bag. ?Leave the ice on for 20 minutes, 2 3 times per day. ?If directed, apply light compression to the injured area using an elastic bandage. Make sure the bandage is not wrapped too tightly. Remove and reapply the bandage as directed by your health care provider. ?If possible, raise (elevate) the injured area above the level of your heart while you are sitting or lying down. General instructions Take qjrw-ojo-cvnfwkx and prescription medicines only as told by your health care provider. Keep all follow-up visits as told by your health care provider. This is important. Contact a health care provider if: Your symptoms do not improve after several days of treatment. Your symptoms get worse. You have difficulty moving the injured area. Get help right away if: You have severe pain. You have numbness in a hand or foot. Your hand or foot turns pale or cold. Summary A contusion is a deep bruise. Contusions are the result of a blunt injury to tissues and muscle fibers under the skin. It is treated with rest, ice, compression, and elevation. You may be given byzf-ukq-udabtpe medicines for pain. Contact a health care provider if your symptoms do not improve, or get worse. Get help right away if you have severe pain, have numbness, or the area turns pale or cold. This information is not intended to replace advice given to you by your health care provider. Make sure you discuss any questions you have with your health care provider. Document Revised: 02/20/2022 Document Reviewed: 02/01/2022 [employer] Patient Education 2022 [employer]. Follow Up Care 04/07/2023 15:22:48 With:JOELEN HERRERA Address: [address] [address] [phone] Business (1) When:Within 3 Day(s) [facility] 01-11-2023 Note HNO ID: [id number] Author: Ailyn Friend MD Service: ? Author Type: Physician Type: Progress Notes Filed: 01/11/2023 11:09 AM Note Text: PATIENT NAME: Terry Villalpando CLINIC NO.: [id number] ATTENDING PHYSICIAN: Ailyn Friend MD DATE OF SERVICE: January 11, 2023 Some of the elements of this note have been copied from my previous progress note dated 09/12/2022. All the information has been reviewed carefully. Dear Joleen Herrera CNP, here is an update on a follow up visit on paulino Villalpando at the clinic January 11, 2023 Diagnosis: SMM and thrombocytopenia Treatment History: March 2021, admitted to [facility] for blood loss anemia presumed to be secondary to supratherapeutic INR while on warfarin. He was transfused RBCs and given intravenous iron. No EGD or colonoscopy performed. Referred to Dr. 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 Serum immunofixation was notable for IgA kappa and IgG kappa M proteins. Patient has a history of heart failure and a left ventricular assist device that was placed in 2013 and revised in 2016. He has a previous history of chronic alcohol and tobacco use. No known chronic liver or kidney conditions. No new medications. No focal bony pain. September 21, 2021 work-up -- CBC with normal hemoglobin and mild thrombocytopnenia, CMP with normal creatinine and calcium, SPEP with two gamma fractions measuring 0.59 and 0.15 g/dL, KL ratio 9.6, HIV and chronic hep negative, haptoglobin undetectable October 26, 2021 -- CBC with anemia and mild thrombocytopnenia, CMP with normal creatinine and calcium, Nestor negative, plasma free hemoglobin normal, SPEP with two gamma fractions measuring 0.64 and 0.13 g/dL, KL ratio 11 Established care with nm 01/10/2022 HPI: Terry Villalpando is a 62 year old year old male here for follow up. Doing well and denies any abdominal pain and or diarrhea. PAST MEDICAL HISTORY Diagnosis Date Abnormal CBC Bence Allan protein COPD (chronic obstructive pulmonary disease) (HCC) Diabetes mellitus (HCC) GERD (gastroesophageal reflux disease) GI bleed Hyperlipidemia Hypertension LVAD (left ventricular assist device) present (HCC) Myocardial infarct (HCC) Nonischemic cardiomyopathy (HCC) Shingles Shortness of breath Systolic heart failure (HCC) Thyroid disorder Social History Tobacco Use Smoking status: Former Packs/day: 2.00 Years: 35.00 Additional pack years: 0.00 Total pack years: 70.00 Types: Cigarettes Quit date: 2010 Years since quittin. Passive exposure: Past Smokeless tobacco: Never Vaping Use Vaping Use: Never used Substance Use Topics Alcohol use: Not Currently Drug use: Not Currently FAMILY HISTORY Problem Relation Age of Onset other (other) Mother Diabetes Mother Heart disease Mother Heart disease Father other (Congestive Heart Failure) Father Past medical, social and family history reviewed without any changes. REVIEW OF SYSTEMS GENERAL: No weight loss, malaise or fevers. No night sweats. HEENT: Negative for headaches, No changes in hearing or vision, no nose bleeds or other nasal problems. RESPIRATORY: Negative for cough, wheezing and shortness of breath CARDIOVASCULAR: Negative for chest pain, leg swelling and palpitations GI: Negative for abdominal discomfort, blood in stools or black stools and change in bowel habits : Negative for dysuria, frequency and incontinence MUSCULOSKELETAL: Negative for joint pain or swelling, back pain, and muscle pain. SKIN: Negative for lesions, rash, and itching. HEMATOLOGY/LYMPHOLOGY Negative for prolonged bleeding, bruising easily, and swollen nodes. NEURO: Negative for numbness or tingling of hands/feet. No weakness. PHYSICAL EXAMINATION: BP [unable to get bp[ Temp (Src) 97.3 (Temporal) Resp 18 Ht 5' 11.496 (1.82m) Wt 251 lb 3.2 oz (113.9kg) SpO2 97% BMI 34.55 kg/(m2). Wt 115.4 kg (254 lb 6.4 oz) BMI 34.99 kg/m2 Last 3 Encounter Wt Readings: Date: Wt: 01/10/2022 115.4 kg (254 lb 6.4 oz) 11/02/2021 117.4 kg (258 lb 12.8 oz) 10/05/2021 115.6 kg (254 lb 12.8 oz) General appearance:ECOG PERFORMANCE STATUS: 1- Restricted in physically strenuous activity. Carries out light duty. Patient in NAD. Skin: Skin color, texture, turgor normal. No rashes or lesions. Eyes: Anicteric sclera. Pupils are equally round and reactive to light. Extraocular movements are intact. Lymph Nodes: No cervical, supraclavicular, axillary or inguinal adenopathy. Oropharynx: Lips, mucosa, and tongue normal. Back: No pain to percussion. Negative SLR test Lungs clear to auscultation, No wheezing or rhonchi Heart: RRR without murmur, gallop, or rubs. Abdomen soft, non-tender. No masses, organomegaly Extremities: No deformities. No edema Neuro: Gait and speech normal. Reflexes normal and symmetric. Muscular strength intact. Sensation grossly intact. Rectal: D (more content not included)... [facility] 01-11-2023 History of Present illness Narrative PATIENT NAME: Terry Villalpando [facility] NO.: [id number] ATTENDING PHYSICIAN: Ailyn Friend MD DATE OF SERVICE: January 11, 2023 Some of the elements of this note have been copied from my previous progress note dated 09/12/2022. All the information has been reviewed carefully. Dear Joleen Herrera CNP, here is an update on a follow up visit on male Terry Villalpando at the clinic January 11, 2023 Diagnosis: SMM and thrombocytopenia Treatment History: March 2021, admitted to [facility] for blood loss anemia presumed to be secondary to supratherapeutic INR while on warfarin. He was transfused RBCs and given intravenous iron. No EGD or colonoscopy performed. Referred to Dr. 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 Serum immunofixation was notable for IgA kappa and IgG kappa M proteins. Patient has a history of heart failure and a left ventricular assist device that was placed in 2013 and revised in 2016. He has a previous history of chronic alcohol and tobacco use. No known chronic liver or kidney conditions. No new medications. No focal bony pain. September 21, 2021 work-up -- CBC with normal hemoglobin and mild thrombocytopnenia, CMP with normal creatinine and calcium, SPEP with two gamma fractions measuring 0.59 and 0.15 g/dL, KL ratio 9.6, HIV and chronic hep negative, haptoglobin undetectable October 26, 2021 -- CBC with anemia and mild thrombocytopnenia, CMP with normal creatinine and calcium, Nestor negative, plasma free hemoglobin normal, SPEP with two gamma fractions measuring 0.64 and 0.13 g/dL, KL ratio 11 Established care with nm 01/10/2022 HPI: Terry Villalpando is a 62 year old year old male here for follow up. Doing well and denies any abdominal pain and or diarrhea. PAST MEDICAL HISTORY Diagnosis Date Abnormal CBC Bence Allan protein COPD (chronic obstructive pulmonary disease) (HCC) Diabetes mellitus (HCC) GERD (gastroesophageal reflux disease) GI bleed Hyperlipidemia Hypertension LVAD (left ventricular assist device) present (HCC) Myocardial infarct (HCC) Nonischemic cardiomyopathy (HCC) Shingles Shortness of breath Systolic heart failure (HCC) Thyroid disorder Social History Tobacco Use Smoking status: Former Packs/day: 2.00 Years: 35.00 Additional pack years: 0.00 Total pack years: 70.00 Types: Cigarettes Quit date: 2010 Years since quittin. Passive exposure: Past Smokeless tobacco: Never Vaping Use Vaping Use: Never used Substance Use Topics Alcohol use: Not Currently Drug use: Not Currently FAMILY HISTORY Problem Relation Age of Onset other (other) Mother Diabetes Mother Heart disease Mother Heart disease Father other (Congestive Heart Failure) Father Past medical, social and family history reviewed without any changes. REVIEW OF SYSTEMS GENERAL: No weight loss, malaise or fevers. No night sweats. HEENT: Negative for headaches, No changes in hearing or vision, no nose bleeds or other nasal problems. RESPIRATORY: Negative for cough, wheezing and shortness of breath CARDIOVASCULAR: Negative for chest pain, leg swelling and palpitations GI: Negative for abdominal discomfort, blood in stools or black stools and change in bowel habits : Negative for dysuria, frequency and incontinence MUSCULOSKELETAL: Negative for joint pain or swelling, back pain, and muscle pain. SKIN: Negative for lesions, rash, and itching. HEMATOLOGY/LYMPHOLOGY Negative for prolonged bleeding, bruising easily, and swollen nodes. NEURO: Negative for numbness or tingling of hands/feet. No weakness. PHYSICAL EXAMINATION: BP [unable to get bp[ Temp (Src) 97.3 (Temporal) Resp 18 Ht 5' 11.496 (1.82m) Wt 251 lb 3.2 oz (113.9kg) SpO2 97% BMI 34.55 kg/(m^2). Wt 115.4 kg (254 lb 6.4 oz) BMI 34.99 kg/m2 Last 3 Encounter Wt Readings: Date: Wt: 01/10/2022 115.4 kg (254 lb 6.4 oz) 11/02/2021 117.4 kg (258 lb 12.8 oz) 10/05/2021 115.6 kg (254 lb 12.8 oz) General appearance:ECOG PERFORMANCE STATUS: 1- Restricted in physically strenuous activity. Carries out light duty. Patient in NAD. Skin: Skin color, texture, turgor normal. No rashes or lesions. Eyes: Anicteric sclera. Pupils are equally round and reactive to light. Extraocular movements are intact. Lymph Nodes: No cervical, supraclavicular, axillary or inguinal adenopathy. Oropharynx: Lips, mucosa, and tongue normal. Back: No pain to percussion. Negative SLR test Lungs clear to auscultation, No wheezing or rhonchi Heart: RRR without murmur, gallop, or rubs. Abdomen soft, non-tender. No masses, organomegaly Extremities: No deformities. No edema Neuro: Gait and speech normal. Reflexes normal and symmetric. Muscular strength intact. Sensation grossly intact. Rectal: Deferred : Deferred LABS: Glucose (mg/dL) Date Value 01/03/2023 220 Potassium (mmol/L) Date Value 01/03/2023 4.0 Sodium (mmol/L) Date Value 01/03/2023 134 Chloride (mmol/L) Date Value 01/03/2023 99 CO2 (mmol/L) Date Value 01/03/2023 23 Creatinine (mg/dL) Date Value 01/03/2023 1.25 BUN (mg/dL) Date Value 01/03/2023 32 Anion Gap (mmol/L) Date Value 01/03/2023 12 Calcium, Total (mg/dL) Date Value 01/03/2023 9.9 Protein, Total (g/dL) Date Value 01/03/2023 8.0 01/03/2023 8.1 01/03/2023 7.9 Albumin (g/dL) Date Value 01/03/2023 4.2 Bilirubin, Total (mg/dL) Date Value 01/03/2023 1.4 Alkaline Phosphatase (U/L) Date Value 01/03/2023 80 AST (U/L) Date Value 01/03/2023 26 ALT (U/L) Date Value 01/03/2023 14 WBC Date Value Ref Range Status 01/03/2023 6.52 3.70 - 11.00 k/uL Final RBC Date Value Ref Range Status 01/03/2023 5.02 4.20 - 6.00 m/uL Final Hemoglobin Date Value Ref Range Status 01/03/2023 15.4 13.0 - 17.0 g/dL Final Hematocrit Date Value Ref Range Status 01/03/2023 47.0 39.0 - 51.0 % Final MCV Date Value Ref Range Status 01/03/2023 93.6 80.0 - 100.0 fL Final MCH Date Value Ref Range Status 01/03/2023 30.7 26.0 - 34.0 pg Final MCHC Date Value Ref Range Status 01/03/2023 32.8 30.5 - 36.0 g/dL Final RDW-CV Date Value Ref Range Status 01/03/2023 16.0 (H) 11.5 - 15.0 % Final Platelet Count Date Value Ref Range Status 01/03/2023 113 (L) 150 - 400 k/uL Final MPV Date Value Ref Range Status 01/03/2023 12.1 9.0 - 12.7 fL Final Abs Neut Date Value Ref Range Status 01/03/2023 4.26 1.45 - 7.50 k/uL Final Lymphocytes % Date Value Ref Range Status 01/03/2023 15.5 % Final Abs Lymph Date Value Ref Range Status 01/03/2023 1.01 1.00 - 4.00 k/uL Final Monocytes % Date Value Ref Range Status 01/03/2023 12.3 % Final Abs [place] Date Value Ref Range Status 01/03/2023 0.80 <0.87 k/uL Final Eosinophils % Date Value Ref Range Status 01/03/2023 5.5 % Final Abs Eosin Date Value Ref Range Status 01/03/2023 0.36 <0.46 k/uL Final Basophils % Date Value Ref Range Status 01/03/2023 1.1 % Final Abs Baso Date Value Ref Range Status 01/03/2023 0.07 <0.11 k/uL Final PATH: BM Biopsy at [facility]: BONE MARROW, ASPIRATE WITH CLOT AND CORE BIOPSY WITH TOUCH IMPRINT, ILIAC CREST, LATERALITY UNSPECIFIED: -- 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%) WITH APPROXIMATELY 10-15% KAPPA+ PLASMA CELLS BY CD138 IMMUNOSTAINING CONSISTENT WITH PLASMA CELL MYELOMA, SEE NOTE. -- NORMAL MATURING TRILINEAGE HEMATOPOIESIS. Imaging: Assessment and Plan: Terry Villalpando is a 62 year old year old male here for follow up. SMM- Parameters stable and repeat in 4 months Thrombocytopenia- stable Monitor Creat CHF on LVAD per cardiology at Follow Iron parameters, which have improved Thank you for the kind referral. If there are any questions and or concerns please do not hesitate to contact me at [phone]. Ailyn Friend MD Hematology/Medical Oncology [facility]imy spent a total of 30 minutes on the date of the service which included preparing to see the patient, [id number] patient care, completing clinical documentation, obtaining and/or reviewing separately obtained history, performing a medically appropriate examination, and ordering medications, tests, or procedures. CC: Joleen Herrera, CELL BIOLOGY SCIENTIST documented in this encounter [facility] 01-11-2023 Evaluation note Diagnosis MGUS (monoclonal gammopathy of unknown significance)- Primary Monoclonal paraproteinemia Stage 3a chronic kidney disease (HCC) documented in this encounter [facility]09-14-2023 NoteHNO ID: [id number] Author: Diana Agustin, RT(R) Service: ? Author Type: Technologist Type: Progress Notes Filed: 01/03/2023 1:11 PM Note Text: RADIOLOGY SERVICE PROGRESS NOTE SERVICE DATE: 01/03/2023 SERVICE TIME: 1:10 PM PATIENT IDENTITY VERIFICATION COMPLETED USING TWO (2) STANDARD IDENTIFIERS: Name and Date of confirmed by patient verbally FALL SCREENING: Has the patient had 2 falls in the last year or 1 fall with injury or currently using an Ambulatory Assistive Device (Walker, Cane, Wheelchair, Crutches, etc.)? No PATIENT GENDER DATA: .male ALLERGIES: Reviewed and unchanged MEDICATIONS REVIEWED: Not applicable PATIENT RELEVANT IMPLANT DATA REVIEWED: Not Applicable CREATININE: Creatinine Date Value Ref Range Status 09/12/2022 1.34 (H) 0.73 - 1.22 mg/dL Final 01/03/2022 1.37 (H) 0.73 - 1.22 mg/dL Final 10/26/2021 1.20 0.73 - 1.22 mg/dL Final Estimated Glomerular Filtration Rate Date Value Ref Range Status 09/12/2022 60 >=60 mL/min/1.73m? Final Comment: Estimated Glomerular Filtration Rate (eGFR) is calculated using the 2020 CKD-EPI creatinine equation. This equation utilizes serum creatinine, sex, and age as parameters. The creatinine assay has traceable calibration to isotope dilution-mass spectrometry. Refer to KDIGO guidelines for clinical interpretation. In patients with unstable renal function, e.g. those with acute kidney injury, the eGFR may not accurately reflect actual GFR. P.O.C.T. RESULTS: POC done: Yes, See Lab Tab January 03, [address] PERFORMED: No IV SITE: Ambulatory: A peripheral IV was started in the Right forearm with a Angio cath: 20 gauge. POST EXAM PIV STATUS: Discontinued PROCEDURE TYPE: NM INJECT: PET/CT WHOLE BODY SCAN. 14.2 mCi F18 FDG. No other medications given.. ADMINISTRATION TIME: 1247 PATIENT DISCHARGED TO: Ambulatory patient, left [place] department area. A Diagnostic radioactive procedure has taken place, with no further precautions necessary other than routine body substance precautions. More information regarding radiation safety can be found using this link: [email or web address] SIGNATURE: RT Grace(R) PATIENT NAME: Terry Villalpando DATE: January 03, 2023 TIME: 1:10 PM PAGER/CONTACT #:[facility]05-30-2023 Miscellaneous Notes* Telephone Encounter - Crystal Calderon - 09/18/2022 11:11 AM EDT Scheduled patient I will mail appts to patient * Telephone Encounter - Leonel Del Valle RN - 09/18/2022 11:06 AM EDT Spoke with pt and he is aware of NEGRO message. He is agreeable to repeat labs/PET in 3 mos. PSS: Please call pt to schedule. Leonel Del Valle RN * Telephone Encounter - Ailyn Friend MD - 09/18/2022 10:43 AM EDT Labs slight upwars trend, repeat in 3 months and also get a PET scan in 3 months as well to assess bones * Telephone Encounter - Leonel Del Valle RN - 09/18/2022 10:38 AM EDT Pt called requesting lab results. NEGRO/MM: please review and advise Leonel Del Valle RN [facility] NoteHNO ID: [id number] Author: Ailyn Friend MD Service: ? Author Type: Physician Type: Progress Notes Filed: 09/12/2022 12:04 PM Note Text: PATIENT NAME: Terry Villalpando [facility] NO.: [id number] ATTENDING PHYSICIAN: Ailyn Friend MD DATE OF SERVICE: September 12, 2022 Some of the elements of this note have been copied from my previous progress note dated 01/10/2022. All the information has been reviewed carefully. Dear Joleen Herrera CELL BIOLOGY SCIENTIST, here is an update on a follow up visit on male Terry Villalpando at the clinic September 12, 2022 Diagnosis: MGUS and thrombocytopenia Treatment History: March 2021, admitted to [facility] for blood loss anemia presumed to be secondary to supratherapeutic INR while on warfarin. He was transfused RBCs and given intravenous iron. No EGD or colonoscopy performed. Referred to me in September 2021 for evaluation of MGUS and new thrombocytopenia. Serum immunofixation was notable for IgA kappa and IgG kappa M proteins. Patient has a history of heart failure and a left ventricular assist device that was placed in 2013 and revised in 2016. He has a previous history of chronic alcohol and tobacco use. No known chronic liver or kidney conditions. No new medications. No focal bony pain. September 21, 2021 work-up -- CBC with normal hemoglobin and mild thrombocytopnenia, CMP with normal creatinine and calcium, SPEP with two gamma fractions measuring 0.59 and 0.15 g/dL, KL ratio 9.6, HIV and chronic hep negative, haptoglobin undetectable October 26, 2021 -- CBC with anemia and mild thrombocytopnenia, CMP with normal creatinine and calcium, Nestor negative, plasma free hemoglobin normal, SPEP with two gamma fractions measuring 0.64 and 0.13 g/dL, KL ratio 11 Established care with me 01/10/2022 HPI: Terry Villalpando is a 62 year old year old male here for follow up. Does get tired and has had a few syncopal episodes in the past . PAST MEDICAL HISTORY Diagnosis Date Abnormal CBC Bence Allan protein COPD (chronic obstructive pulmonary disease) (HCC) Diabetes mellitus (HCC) GERD (gastroesophageal reflux disease) GI bleed Hyperlipidemia Hypertension LVAD (left ventricular assist device) present (HCC) Myocardial infarct (HCC) Nonischemic cardiomyopathy (HCC) Shingles Shortness of breath Systolic heart failure (HCC) Thyroid disorder Social History Tobacco Use Smoking status: Former Packs/day: 2.00 Years: 35.00 Pack years: 70.00 Types: Cigarettes Quit date: 2010 Years since quittin.4 Passive exposure: Past Smokeless tobacco: Never Substance Use Topics Alcohol use: Not Currently Drug use: Not Currently FAMILY HISTORY Problem Relation Age of Onset other (other) Mother Diabetes Mother Heart disease Mother Heart disease Father other (Congestive Heart Failure) Father Past medical, social and family history reviewed without any changes. REVIEW OF SYSTEMS GENERAL: No weight loss, malaise or fevers. No night sweats. HEENT: Negative for headaches, No changes in hearing or vision, no nose bleeds or other nasal problems. RESPIRATORY: Negative for cough, wheezing and shortness of breath CARDIOVASCULAR: Negative for chest pain, leg swelling and palpitations GI: Negative for abdominal discomfort, blood in stools or black stools and change in bowel habits : Negative for dysuria, frequency and incontinence MUSCULOSKELETAL: Negative for joint pain or swelling, back pain, and muscle pain. SKIN: Negative for lesions, rash, and itching. HEMATOLOGY/LYMPHOLOGY Negative for prolonged bleeding, bruising easily, and swollen nodes. NEURO: Negative for numbness or tingling of hands/feet. No weakness. PHYSICAL EXAMINATION: BP 66/31 Pulse 79 Temp (Src) 97.8 (Oral) Resp 18 Ht 5' 11.496 (1.82m) Wt 246 lb 3.2 oz (111.7kg) SpO2 96% BMI 33.86 kg/(m2). Wt 115.4 kg (254 lb 6.4 oz) BMI 34.99 kg/m2 Last 3 Encounter Wt Readings: Date: Wt: 01/10/2022 115.4 kg (254 lb 6.4 oz) 11/02/2021 117.4 kg (258 lb 12.8 oz) 10/05/2021 115.6 kg (254 lb 12.8 oz) General appearance:ECOG PERFORMANCE STATUS: 1- Restricted in physically strenuous activity. Carries out light duty. Patient in NAD. Skin: Skin color, texture, turgor normal. No rashes or lesions. Eyes: Anicteric sclera. Pupils are equally round and reactive to light. Extraocular movements are intact. Lymph Nodes: No cervical, supraclavicular, axillary or inguinal adenopathy. Oropharynx: Lips, mucosa, and tongue normal. Back: No pain to percussion. Negative SLR test Lungs clear to auscultation, No wheezing or rhonchi Heart: RRR without murmur, gallop, or rubs. Abdomen soft, non-tender. No masses, organomegaly Extremities: No deformities. No edema Neuro: Gait and speech normal. Reflexes normal and symmetric. Muscular strength intact. Sensation grossly intact. Rectal: Deferred : Deferred LABS: Glucose (mg/dL) Date Value 09/12/2022 289 Potassium (mm (more content not included)...[facility]09-21-2022 History of Present illness Narrative* Ailyn Friend MD - 01/10/2022 3:25 PM EDT PATIENT NAME: Terry [facility] NO.: [id number] ATTENDING PHYSICIAN: Ailyn Friend MD DATE OF SERVICE: January 10, 2022 Dear Joleen Herrera CNP, here is an update on a follow up visit on male Terry [facility]alpando at the clinic 01/10/2022 Diagnosis: MGUS and thrombocytopenia Treatment History: March 2021, admitted to [facility] for blood loss anemia presumed to be secondary to supratherapeutic INR while on warfarin. He was transfused RBCs and given intravenous iron. No EGD or colonoscopy performed. Referred to nm in September 2021 for evaluation of MGUS and new thrombocytopenia. Serum immunofixation was notable for IgA kappa and IgG kappa M proteins. Patient has a history of heart failure and a leftventricular assist device that was placed in 2013 and revised in 2016. He has a previous history ofchronic alcohol and tobacco use. No known chronic liver or kidney conditions. No new medications. No focal bony pain. September 21, 2021 work-up -- CBC with normal hemoglobin and mild thrombocytopnenia, CMP with normal creatinine and calcium, SPEP with two gamma fractions measuring 0.59 and 0.15 g/dL, KL ratio 9.6, HIV and chronic hep negative, haptoglobin undetectable October 26, 2021 -- CBC with anemia and mild thrombocytopnenia, CMP with normal creatinine and calcium,Nestor negative, plasma free hemoglobin normal, SPEP with two gamma fractions measuring 0.64 and 0.13 g/dL, KL ratio 11 Established care with nm 01/10/2022 HPI: Terry Villal[facility]ando is a 61 year old year old male here for follow up. Feels fine and denies any fevers and or chills. Denies any abdominal pain and also denies any diarrhea. PAST MEDICAL HISTORY Diagnosis Date Abnormal CBC Bence Allan protein COPD (chronic obstructive pulmonary disease) (HCC) Diabetes mellitus (HCC) GERD (gastroesophageal reflux disease) GI bleed Hyperlipidemia Hypertension LVAD (left ventricular assist device) present (HCC) Myocardial infarct (HCC) Nonischemic cardiomyopathy (HCC) Shingles Shortness of breath Systolic heart failure (HCC) Thyroid disorder Social History Tobacco Use Smoking status: Former Packs/day: 2.00 Years: 35.00 Pack years: 70.00 Types: Cigarettes Quit date: 2010 Years since quittin.7 Passive exposure: Past Smokeless tobacco: Never Substance Use Topics Alcohol use: Not Currently Drug use: Not Currently FAMILY HISTORY Problem Relation Age of Onset other (other) Mother Diabetes Mother Heart disease Mother Heart disease Father other (Congestive Heart Failure) Father Past medical, social and family history reviewed without any changes. REVIEW OF SYSTEMS GENERAL: No weight loss, malaise or fevers. No night sweats. HEENT: Negative for headaches, No changes in hearing or vision, no nose bleeds or other nasal problems. RESPIRATORY: Negative for cough, wheezing and shortness of breath CARDIOVASCULAR: Negative for chest pain, leg swelling and palpitations GI: Negative for abdominal discomfort, blood in stools or black stools and change in bowel habits : Negative for dysuria, frequency and incontinence MUSCULOSKELETAL: Negative for joint pain or swelling, back pain, and muscle pain. SKIN: Negative for lesions, rash, and itching. HEMATOLOGY/LYMPHOLOGY Negative for prolonged bleeding, bruising easily, and swollen nodes. NEURO: Negative for numbness or tingling of hands/feet. No weakness. PHYSICAL EXAMINATION: BP 99/13[patient has LVAD[ Pulse 70 Temp (Src) 97.2 (Temporal) Resp 18 Ht 5' 11.496 (1.82m) Wt 254 lb 6.4 oz (115.4kg) SpO2 97% BMI 34.99 kg/(m^2). Wt 115.4 kg (254 lb 6.4 oz) BMI 34.99 kg/m2 Last 3 Encounter Wt Readings: Date: Wt: 01/10/2022 115.4 kg (254 lb 6.4 oz) 11/02/2021 117.4 kg (258 lb 12.8 oz) 10/05/2021 115.6 kg (254 lb 12.8 oz) General appearance:ECOG PERFORMANCE STATUS: 1- Restricted in physically strenuous activity. Carries out light duty. Patient in NAD. Skin: Skin color, texture, turgor normal. No rashes or lesions. Eyes: Anicteric sclera. Pupils are equally round and reactive to light. Extraocular movements are intact. Lymph Nodes: No cervical, supraclavicular, axillary or inguinal adenopathy. Oropharynx: Lips, mucosa, and tongue normal. Back: No pain to percussion. Negative SLR test Lungs clear to auscultation, No wheezing or rhonchi Heart: RRR without murmur, gallop, or rubs. Abdomen soft, non-tender. No masses, organomegaly Extremities: No deformities. No edema Neuro: Gait and speech normal. Reflexes normal and symmetric. Muscular strength intact. Sensation grossly intact. Rectal: Deferred : Deferred LABS: Glucose (mg/dL) Date Value 01/03/2022 210 Potassium (mmol/L) Date Value 01/03/2022 4.5 Sodium (mmol/L) Date Value 01/03/2022 137 Chloride (mmol/L) Date Value 01/03/2022 101 CO2 (mmol/L) Date Value 01/03/2022 27 Creatinine (mg/dL) Date Value 01/03/2022 1.37 BUN (mg/dL) Date Value 01/03/2022 28 Anion Gap (mmol/L) Date Value 01/03/2022 9 Calcium, Total (mg/dL) Date Value 01/03/2022 9.6 Protein, Total (g/dL) Date Value 01/03/2022 8.2 01/03/2022 8.0 Albumin (g/dL) Date Value 01/03/2022 4.4 Bilirubin, Total (mg/dL) Date Value 01/03/2022 0.9 Alkaline Phosphatase (U/L) Date Value 01/03/2022 81 AST (U/L) Date Value 01/03/2022 19 ALT (U/L) Date Value 01/03/2022 14 WBC Date Value Ref Range Status 01/03/2022 4.66 3.70 - 11.00 k/uL Final RBC Date Value Ref Range Status 01/03/2022 5.07 4.20 - 6.00 m/uL Final Hemoglobin Date Value Ref Range Status 01/03/2022 13.4 13.0 - 17.0 g/dL Final Hematocrit Date Value Ref Range Status 01/03/2022 44.1 39.0 - 51.0 % Final MCV Date Value Ref Range Status 01/03/2022 87.0 80.0 - 100.0 fL Final MCH Date Value Ref Range Status 01/03/2022 26.4 26.0 - 34.0 pg Final MCHC Date Value Ref Range Status 01/03/2022 30.4 (L) 30.5 - 36.0 g/dL Final RDW-CV Date Value Ref Range Status 01/03/2022 17.5 (H) 11.5 - 15.0 % Final Platelet Count Date Value Ref Range Status 01/03/2022 170 150 - 400 k/uL Final MPV Date Value Ref Range Status 01/03/2022 11.9 9.0 - 12.7 fL Final Abs Neut Date Value Ref Range Status 01/03/2022 3.00 1.45 - 7.50 k/uL Final Lymph% Date Value Ref Range Status 01/03/2022 14.2 % Final Abs Lymph Date Value Ref Range Status 01/03/2022 0.66 (L) 1.00 - 4.00 k/uL Final [place]% Date Value Ref Range Status 01/03/2022 13.3 % Final Abs [place] Date Value Ref Range Status 01/03/2022 0.62 <0.87 k/uL Final Eosin% Date Value Ref Range Status 01/03/2022 6.9 % Final Abs Eosin Date Value Ref Range Status 01/03/2022 0.32 <0.46 k/uL Final Baso% Date Value Ref Range Status 01/03/2022 1.1 % Final Abs Baso Date Value Ref Range Status 01/03/2022 0.05 <0.11 k/uL Final PATH: Imaging: Assessment and Plan: Terry Villalpando is a 61 year old year old male here for follow up. MGUS- Parameters stable and repeat in 4 months, slight elevation of [place] light chain Thrombocytopenia- Improved Monitor Creat CHF on LVAD per cardiology at Follow Iron parameters Thank you for the kind referral. If there are any questions and or concerns please do not hesitate to contact me at [phone]. Ailyn Friend MD Hematology/Medical Oncology [facility] Sera Munson spent a total of 25 minutes on the date of the service which included preparing to see the patient, [id number] patient care, completing clinical documentation, obtaining and/or reviewing separately obtained history, performing a medically appropriate examination, and ordering medications, tests, or procedures. Medical Decision Making: Medical Decision Making Level: 1 - N/A CC: Joleen Herrera, CELL BIOLOGY SCIENTIST documented in this encounterTri[facility] Miscellaneous Notes* Telephone Encounter - Tonia Carpenter - 01/03/2022 9:50 AM EDT Patient has a RUSS appointment next week but showed up today. Wants labs. Do you want to order anything? documented in this encounterTrihealth M[facility]09-08-2022 Evaluation note* LVEF % at Discharge:Left Ventricular Ejection Fraction %: 10-15% * Psychological: Appropriate mood and behaviorNeurological: A+Ox3, no focal deficits, ambulatoryMusculoskeletal: ROM intact, no swelling noted, normal strengthGastrointestinal: Abdomen soft, NT, +bowelsoundsENMT: MMMEyes: sclera anictericSkin: Warm, dry, intact, LVAD driveline dressing c/d/i, no rashes or lesionsConstitutional: Well developed, awake/alert/oriented x3, no distress, alert and cooperativeRespiratory/Thorax: CTABHead/Neck: JVD to his clavicleExtremities: warm and dry, no edemaCardiovascular: S1,S2, +LVAD hum (HM2) [facility]09-08-2022 Hospital Discharge instructions* Activity:activity as tolerated. May shower. May drive. * Additional Orders:Weight: Weigh yourself daily and record. Take these numbers with you to your LVADappointment. If your weight increases by more than 3 lbs from baseline weight, call the office at [phone].Additional Instructions: VADDaily Care Change the exit site dressing, using the sterile technique shown to you at the hospital Inspect the exit site during dressing changes to look for signs of infection. Such as: redness, swelling, discharge, odor, or warmth Call your contact hospital person if your temperature is above 100.4 Fahrenheit or below 95 Fahrenheit.Check your weight each morning and record. Call your hospital cashier and salesperson if you gain more than 3 pounds in 3 days (or 5 or more pounds in one week).Call your doctor if you notice any swelling in your ankles or changes in your waistline.Do NOT kink your VAD lines. Only disconnect one power cable at a time when straightening your cables. NEVER disconnect both power cables at the same time to untangle them.Immediately jordyn l your hospital cashier and salesperson if you notice any changes in how the VAD feels, operates, or sounds.Activities Showers are allowed only with approval from your VAD team. Your exit site must be completely healed before showering. Do NOT take showers without using a VAD shower kit issued by your VAD coordinator to protect your equipment from waterDo NOT take baths, go swimming or use hot tubs whileimplanted with the VAD Miscellaneous Avoid strong static discharge (that might come from touching TV or computer screens or from scuffing your feet on carpet). A strong static discharge can cause theVAD to stop. Consider spraying the carpet with Static Guard or other similar product.If you have any questions or concerns about your home environment, call your VAD coordinator. If you are uncomfortable testing your home s electrical system, you can hire a local control electrician to do it for you. Know and understand the warnings and cautions associated with having a VAD for safe operation (see your Patient Handbook for a complete list of warnings and cautions) For any questions or concerns after discharge please notify:VAD Coordinator Contact Numbers: Pager #[phone] all laboratory test/lab results must be faxed to [phone] ATTN: VAD TEAM * Call Provider If:Breathing faster than normal. Breathing harder than normal or having retractions. Fever of 100.4 F (38 C) or higher. Temperature is greater than 102 degrees. Chills. Drinking less than normal. Not being able to go 4-6 hours between albuterol treatments. Urinating less than normal, over 1 day. Urinating less than 4 times per day. Acting very sleepy and difficult to awaken. Vomiting (throwing up) and not able to eat or drink for 12 hours. 3 or more loose, watery bowel movements in 24 hours (diarrhea). Any new concerning symptoms. * Patient Instructions:- CALL 911 IF YOU HAVE ANY OF THE SIGNS AND SYMPTOMS OF HEART FAILURE: 1. Chest pain 2. Significant Shortness of breath 3. Fainting. - Notify your physician immediately if you have shortness of breath; weight gain of 3 lbs. or more; fatigue and loss of energy; swelling of lower extremities or abdomen; dizziness or fainting; change of appetite; and frequent coughing. - Patientreceived Living With Heart Failure book. - Daily weight on the same scale, same time after voiding and before eating. - Maintain daily weight log. * Activity (Heart Failure):- Balance activity with rest, gradually increase your activity as tolerated. - Exercise as prescribed by your physician. * Follow Up Appointment 1:Physician/Dept/Service: Ju Palacios CNP/LVAD ClinicScheduled Date/Time: 02-Jan-2022 14:00Location: [facility], [address] - [address], [place], [place], [address]Yjowu Number: [phone]: Bring your medication bottles (or u pdated med list) and a list of your daily weights. * Follow Up Appointment 2:Physician/Dept/Service: Dr. Kraus/Yomi for Referral: MGUS and bone marrow biopsy resultsLocation: [facility] [address], [place], [place] [address]Azqox Number: Comments: Please call to schedule an appointment so that bone marrow biopsy results can be reviewed. * Coumadin (Warfarin) Follow-Up Monitoring:Physician/Dept/Service: Please check INR level with your home monitor tomorrow Saturday12/29/21.Date/Time next PT/INR due: 29-Dec-2021 12:00 [facility]07-14-2022 History of Present illness Narrative* Jerrell Kraus MD - 11/02/2021 11:25 AM EDT HEMATOLOGIC ONCOLOGY FOLLOW UP Elements in this clinic note that are critical to medical decision making have been carefully reviewed and included from my prior clinic note dated: October 05, 2021 November 02, 2021 PCP and other physicians involved in patient's care: Joleen Herrera (PCP) DIAGNOSIS: MGUS and thrombocytopenia HEMATOLOGICAL HISTORY: March 2021, admitted to [facility] for blood loss anemia presumed to be secondary to supratherapeutic INR while on warfarin. He was transfused RBCs and given intravenous iron. No EGD or colonoscopy performed. Referred to me in September 2021 for evaluation of MGUS and new thrombocytopenia. Serum immunofixation was notable for IgA kappa and IgG kappa M proteins. Patient has a history of heart failure and a leftventricular assist device that was placed in 2013 and revised in 2016. He has a previous history ofchronic alcohol and tobacco use. No known chronic liver or kidney conditions. No new medications. No focal bony pain. September 21, 2021 work-up -- CBC with normal hemoglobin and mild thrombocytopnenia, CMP with normal creatinine and calcium, SPEP with two gamma fractions measuring 0.59 and 0.15 g/dL, KL ratio 9.6, HIV and chronic hep negative, haptoglobin undetectable October 26, 2021 -- CBC with anemia and mild thrombocytopnenia, CMP with normal creatinine and calcium,Nestor negative, plasma free hemoglobin normal, SPEP with two gamma fractions measuring 0.64 and 0.13 g/dL, KL ratio 11 INTERVAL HISTORY: Terry returns for a follow up. He is here to review results. Since last visit, hereports no new symptoms. ROS is negative except that mentioned in HPI PAST MEDICAL SURGICAL FAMILY AND SOCIAL HISTORY: He has a history of Systolic heart failure LVAD in 2013, revised in 2016 for pump thrombosis and associated RV dysfunction Chronic kidney disease Biclonal gammopathy of undetermined significance Hyperlipidemia Paroxysmal atrial fibrillation, on warfarin and amiodarone Subclinical hypothyroidism GI bleeding, March 2021 Iron deficiency anemia, March 2021 Previous surgeries include appendicectomy, cholecystectomy and LVAD placements. Family history not suggestive of any hematologic or oncologic disease. Patient endorses chronic alcohol use prior to 2006. He also endorses total of 70 pack year smoking history; quit in 2010. He lives in [place], [place] with his , Holley. MEDICATIONS AND ALLERGIES: Reviewed PHYSICAL EXAM BP 104/71 Pulse 94 Temp 36.4 C (97.5 F) (Temporal) Resp 16 Ht 181.6 cm (5' 11.5 ) Wt 117.4 kg (258 lb 12.8 oz) SpO2 95% BMI 35.60 kg/m Head atraumatic, no pallor, icterus or lymphadenopathy, lungs clear to auscultation, heart sounds with continuous murmur, abdomen soft without distension or organomegaly, LVAD in place, neuro grossly non-focal, skin without rash, extremities with 1+ swelling bilaterally LABORATORY, IMAGING AND PATHOLOGY Labs 10-26-2021 CBC - hemoglobin 12.7, MCV 93, platelets 136 CMP - protein 8.1, normal Cr and calcium, bili 0.9 Nestor negative, plasma free Hb normal SPEP with two gamma fractions measuring 0.64 and 0.13 g/dL, KL ratio 11 SIFE - IgA kappa and IgG kappa 09-21-2021 CBC hemoglobin 14.2, MCV 95, platelets 144 CMP -protein 8.5, LDH 533, total bilirubin 0.9 Haptoglobin undetectable SPEP with two gamma fractions measuring 0.59 and 0.15 g/dL, KL ratio 9.5 09-06-21 CBC - Hgb 14.7, MCV 95, PLT 110 CMP - protein 8.7, LDH 554, total smooth 1.3 SIFE - IgA kappa and IgG kappa 04-11-21 CBC - Hgb 11.1, MCV 96, PLT 188 CMP -total protein 7, LDH 300, total bili 0.4 Imaging September 2021 US spleen, kidney and liver normal, spleen size 14 cm September 2021 Bone survey normal Pathology NA ASSESSMENT AND RECOMMENDATIONS 61-year-old male with MGUS and thrombocytopenia The M protein was discovered as a part of work-up for elevated protein in August 2021 (normal in March 2021). Patient does not have symptoms to suggest myeloma. SPEP shows 2 gamma fractions measuring0.6 and 0.15 g/dL. The kappa lambda ratio is ~11. Bone survey is negative. Calcium and creatinine is normal. Due to the presence of IgA MGUS, thrombocytopenia, and abnormal kappa lambda ratio, I had previously recommended a bone marrow biopsy per guidelines. However, patient is on chronic warfarin for atrial fibrillation and LVAD and in 2016, cessation of warfarin resulted in clotting of the LVADdespite being on a heparin drip. I am awaiting to hear back from his cardiology team to explore any safe options to facilitate the procedure (Dr. Ju Palacios [phone]). In the meantime, he will return in 2 months with labs prior. Thrombocytopenia is mild but new compared to March 2021. Haptoglobin is undetectable. Nestor is negative. LDH and total bilirubin are moderately high. My suspicion is thrombocytopenia secondary toLVAD shearing. My suspicion for overt hemolysis remains low. Ultrasound of the liver and spleen is negative. Jerrell Kraus MD [phone] I spent a total of 35 minutes on the date of the service which included preparing to see the patient, [id number] patient care, completing clinical documentation, obtaining and/or reviewing separately obtained history, performing a medically appropriate examination, counseling and educating the pat ient/family/caregiver, ordering medications, tests, or procedures, independently interpreting results (not separately reported) and communicating results to the patient/family/caregiver. CC: Joleen Palaicos, Cardiology, documented in this encounterTrihealth [facility]06-16-2022 History of Present illness Narrative* Jerrell Kraus MD - 10/05/2021 10:45 AM EDT HEMATOLOGIC ONCOLOGY FOLLOW UP Elements in this clinic note that are critical to medical decision making have been carefully reviewed and included from my prior clinic note dated: September 21, 2021 October 05, 2021 PCP and other physicians involved in patient's care: Joleen Herrera (PCP) DIAGNOSIS: MGUS and thrombocytopenia HEMATOLOGICAL HISTORY: March 2021, admitted to [facility] for blood loss anemia presumed to be secondary to supratherapeutic INR while on warfarin. He was transfused RBCs and given intravenous iron. No EGD or colonoscopy performed. Referred to me in September 2021 for evaluation of MGUS and new thrombocytopenia. Serum immunofixation was notable for IgA kappa and IgG kappa M proteins. Patient has a history of heart failure and a leftventricular assist device that was placed in 2013 and revised in 2016. He has a previous history ofchronic alcohol and tobacco use. No known chronic liver or kidney conditions. No new medications. No focal bony pain. September 21, 2021 work-up -- CBC normal, CMP with normal creatinine and calcium, SPEP with two gamma fractions measuring 0.59 and 0.15 g/dL, KL ratio 9.5, HIV and chronic hep negative, haptoglobin undetectable INTERVAL HISTORY: Terry returns for a follow up. He is here with his , Holley. He is here to review results. Since last visit, he reports no new symptoms. ROS is negative except that mentioned in HPI PAST MEDICAL SURGICAL FAMILY AND SOCIAL HISTORY: He has a history of Systolic heart failure LVAD in 2013, revised in 2016 for pump thrombosis and associated RV dysfunction Chronic kidney disease Hyperlipidemia Paroxysmal atrial fibrillation, on warfarin and amiodarone Subclinical hypothyroidism GI bleeding, March 2021 Iron deficiency anemia, March 2021 Previous surgeries include appendicectomy, cholecystectomy and LVAD placements. Family history not suggestive of any hematologic or oncologic disease. Patient endorses chronic alcohol use prior to 2006. He also endorses total of 70 pack year smoking history; quit in 2010. He lives in [place], [place] with his , Holley. MEDICATIONS AND ALLERGIES: Reviewed PHYSICAL EXAM BP 89/72 Pulse 78 Temp 36.6 C (97.9 F) (Temporal) Resp 16 Ht 181.6 cm (5' 11.5 ) Wt 115.6kg (254 lb 12.8 oz) SpO2 96% BMI 35.04 kg/m Head atraumatic, no pallor, icterus or lymphadenopathy, lungs clear to auscultation, heart sounds with continuous murmur, abdomen soft without distension or organomegaly, LVAD in place, neuro grossly non-focal, skin without rash, extremities with 1+ swelling bilaterally LABORATORY, IMAGING AND PATHOLOGY Labs 09-21-2021 CBC hemoglobin 14.2, MCV 95, platelets 144 CMP -protein 8.5, LDH 533, total bilirubin 0.9 Haptoglobin undetectable SPEP with two gamma fractions measuring 0.59 and 0.15 g/dL, KL ratio 9.5 09-06-21 CBC - Hgb 14.7, MCV 95, PLT 110 CMP - protein 8.7, LDH 554, total smooth 1.3 SIFE - IgA kappa and IgG kappa 04-11-21 CBC - Hgb 11.1, MCV 96, PLT 188 CMP -total protein 7, LDH 300, total bili 0.4 Imaging September 2021 US spleen, kidney and liver normal, spleen size 14 cm September 2021 Bone survey normal Pathology NA ASSESSMENT AND RECOMMENDATIONS 61-year-old male with MGUS and thrombocytopenia The M protein was discovered as a part of work-up for elevated protein in August 2021 (normal in March 2021). Patient does not have symptoms to suggest myeloma. SPEP shows 2 gamma fractions measuring0.59 and 0.15 g/dL. The kappa lambda ratio is 9.5. Bone survey is negative. Due to the presence of IgA MGUS, thrombocytopenia, and abnormal kappa lambda ratio, I recommended a bone marrow biopsy per guidelines. Patient is on chronic warfarin for atrial fibrillation and LVAD. In 2016, cessation of warfarin resulted in clotting of the LVAD despite being on a heparin drip. I will reach out to his cardiology team to explore any safe options to facilitate the procedure. If none, will continue monitoring M protein levels very closely. Repeat check in 1 month. Thrombocytopenia is mild but new compared to March 2021. Haptoglobin is undetectable. LDH and total bilirubin are moderately high. My suspicion is thrombocytopenia secondary to LVAD shearing. I will check a direct Nestor and free hemoglobin at next visit. My suspicion for overt hemolysis remainslow. Ultrasound of the liver and spleen is negative. Jerrell Kraus MD I spent a total of 30 minutes on the date of the service which included preparing to see the patient, [id number] patient care, completing clinical documentation, obtaining and/or reviewing separately obtained history, performing a medically appropriate examination, counseling and educating the pat ient/family/caregiver, ordering medications, tests, or procedures, independently interpreting results (not separately reported) and communicating results to the patient/family/caregiver. CC: Joleen Herrera documented in this encounterTrihealth Mcc[facility]06-02-2022 History of Present illness Narrative* Jerrell Kraus MD - 09/21/2021 11:00 AM EDT HEMATOLOGIC ONCOLOGY INITIAL CONSULTATION September 21, 2021 REFERRAL REQUESTED BY: Joleen Herrera PCP and other physicians involved in patient's care: Joleen Herrera (PCP) REASON FOR CONSULTATION: MGUS and thrombocytopenia HEMATOLOGICAL HISTORY: Referred to me in September 2021 for evaluation of MGUS and new thrombocytopenia. Patient has a history of heart failure and a left ventricular assist device that was placed in 2013 and revised in 2016. He has a previous history of chronic alcohol and tobacco use. No known chronic liver or kidney conditions. No new medications. No focal bony pain. March 2021, admitted to [facility] for blood loss anemia presumed to be secondary to supratherapeutic INR while on warfarin. He was transfused RBCs and given intravenous iron. No EGD or colonoscopy performed. HPI: This is a 61-year-old male who comes to the clinic for evaluation of monoclonal protein and thrombocytopenia. His hematologic history is as above. He is here with his , Holley. Briefly, patient has a significant history of heart failure and left ventricular assist device since 2013. This was revised in 2016. He is on warfarin secondary to the LVAD. 6 months back, patient's clinical condition was complicated by a presumed GI bleed secondary to supratherapeutic INR. No EGD or colonoscopy done. However, patient received RBC transfusions and intravenous iron during this time. Hemoglobin at that time was 5.9 g/dL, which has since then returned to normal. On review, patienthas new onset thrombocytopenia compared to March 2021. No new medication since then. No additional GI bleeding. No known chronic liver conditions. Patient has a history of chronic alcohol and tobacco use. Lab work in August was also notable for elevated total protein. This prompted additional work-up for an M protein. Serum and fixation was notable for IgA kappa and IgG kappa M proteins. Patient denies any fevers, chills, night sweats, weight loss, focal bony pain or other progressive symptoms. ROS is negative except that mentioned in HPI PAST MEDICAL SURGICAL FAMILY AND SOCIAL HISTORY: He has a history of Systolic heart failure LVAD in 2013, revised in 2016 for pump thrombosis and associated RV dysfunction Chronic kidney disease Hyperlipidemia Paroxysmal atrial fibrillation, on warfarin and amiodarone Subclinical hypothyroidism GI bleeding, March 2021 Iron deficiency anemia, March 2021 Previous surgeries include appendicectomy, cholecystectomy and LVAD placements. Family history not suggestive of any hematologic or oncologic disease. Patient endorses chronic alcohol use prior to 2006. He also endorses total of70 pack year smoking history; quit in 2010. He lives in [place], [place] with his , Holley. MEDICATIONS AND ALLERGIES: Reviewed PHYSICAL EXAM Vitals reviewed. 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 Patient does not have symptoms to suggest myeloma. I will recheck these labs today and obtain quantification of the serum protein. Bone survey to complete the work-up. Okay to hold off on bone marrow biopsy for now. Thrombocytopenia is mild but new compared to March 2021. The differential is broad including right-sided heart failure, liver dysfunction, hypersplenism, LVAD hemolysis, or bone marrow process. I recommended blood work to identify the underlying etiology in addition to ultrasound of the liver and spleen. Patient says that if no etiology is found, a bone marrow biopsy would be needed. Follow-up in 1-2 weeks after the above work-up is complete. Jerrell Kraus MD I spent a total of 60 minutes on the date of the service which included preparing to see the patient, [id number] patient care, completing clinical documentation, obtaining and/or reviewing separately obtained history, performing a medically appropriate examination, counseling and educating the pat ient/family/caregiver, ordering medications, tests, or procedures, independently interpreting results (not separately reported) and communicating results to the patient/family/caregiver. CC: Joleen Herrera documented [facility]Tri[facility] History of Present illness Narrative* Patient identification verified with 2 patient identifiers. * Anticoagulation Monitoring Service: [facility]. * Enrollment/Re-enrollment date: August 07, 2022. * The patient is being seen as a follow-up for anticoagulation monitoring. * Target INR 2-3. Monitoring practitioner Ju Palacios CNP. * Date Warfarin Begun: 2016 * INR monitoring is per [facility] protocol. PT MAY NOT GO LONGER THAN 2 WEEKS BETWEEN APPTS. * The patient is on anticoagulation due to LVAD and NOTIFY LVAD COORDINATOR JENNIFER PALACIOS (PAGER #[phone]) FOR INR <1.8 OR >4. * The patient is currently taking warfarin Tablet strength and color: 3 mg (Ugarte) * Interval History: * September 05, 2021. * Previous INR was 3.5. ONE DOSE HELD THEN TWD MAINTAINED. * Incoming total weekly dose 31.5 mg. * Today's Clinic INR: [facility] INR 2.2. * Since last visit, the patient reports no bleeding. Denies. * The patient did not experience clinically relevant bleeding. Denies. * The patient did not experience other minor bleeding. Denies. * Since last visit, the patient has not experienced a thrombotic event. Denies. * Denies. * The patient reports a change in medication. * The patient stopped or started OTC and/or herbal medication. * He reports no change in alcohol consumption. Denies. * He reports no change in Vitamin K consumption. Denies. * The patient has taken Warfarin as directed. Took as directed. * Management: The patient's INR is within target range. Will maintain dose. * The patient is not currently being bridged. * Next follow up appointment in 2 week(s). If therapeutic, ok to recheck INR in 2 weeks per LVAD protocol. * Outgoing total weekly dose 31.5 mg. * Patient instructed to call in interim with questions, concerns and changes. Patient educated on interactions between medications and warfarin. Patient educated on dietary consistency in vitamin k consumption. Patient educated on affects of alcohol consumption while taking warfarin. Patient educatedon signs of bleeding/clotting. Patient educated on compliance with dosing, follow up appointments, and prescribed plan of care. Anticoagulation Monitoring Service-[place] Work Phone: 1(178) 698-490212-03-2021 Hospital Discharge instructions* Activity:activity as tolerated. May drive. * Labs 1 (Modify Template):Lab Test(s): CBC with dif, Comprehensive Metabolic Panel, LDH, iron studies, ferritin, digoxinDate To Be Drawn: Saturday03/31/21Fax Results To: Fax results to LVAD clinic # [phone] Attn: LVADComments: Patient has lab orders * Additional Orders:Blood Glucose Monitoring: before meals and at bedtimeWeight: Weigh yourself dailyand record. Take these numbers with you to your LVAD appointment. If your weight increases by more than 3 lbs from baseline weight, call the office at [phone].Additional Instructions: VADDaily Care Change the exit site dressing, using the sterile technique shown to you at the hospital Inspect the exit site during dressing changes to look for signs of infection. Such as: redness, swelling, discharge, odor, or warmth Call your contact hospital person if your temperature is above 100.4 Fahrenheit or below 95 Fahrenheit.Check your weight each morning and record. Call your hospital cashier and salesperson if you gain more than 3 pounds in 3 days (or 5 or more pounds in one week).Call your doctor if you notice any swelling in your ankles or changes in your waistline.Do NOT kink your VAD lines. Onlydisconnect one power cable at a time when straightening your cables. NEVER disconnect both power cables at the same time to untangle them.Immediately call your hospital cashier and salesperson if you notice any changes in how the VAD feels, operates, or sounds. Activities Showers are allowed only with approval from your VAD team. Your exit site must be completely healed before showering. Do NOT take showers without using a VAD shower kit issued by your VAD coordinator to protect your equipment from waterDo NOT take baths, go swimming or use hot tubs while implanted with the VAD Miscellaneous Avoid strong static discharge (that might come from touching TV or computer screens or from scuffing your feet on carpet). A strong static discharge can cause the VAD to stop. Consider spraying the carpet withStatic Guard or other similar product.If you have any questions or concerns about your home environment, call your VAD coordinator. If you are uncomfortable testing your home s electrical system, youcan hire a local control electrician to do it for you. Know and understand the warnings and cautions associated with having a VAD for safe operation (see your Patient Handbook for a complete list of warningsand cautions) For any questions or concerns after discharge please notify:VAD Coordinator Contact Numbers: Pager #[phone] all laboratory test/lab results must be faxed to [phone] ATTN: VAD TEAM * Call Provider If:Any new concerning symptoms. * Patient Instructions:- CALL 911 IF YOU HAVE ANY OF THE SIGNS AND SYMPTOMS OF HEART FAILURE: 1. Chest pain 2. Significant Shortness of breath 3. Fainting. - Notify your physician immediately if you have shortness of breath; weight gain of 3 lbs. or more; fatigue and loss of energy; swelling of lower extremities or abdomen; dizziness or fainting; change of appetite; and frequent coughing. - Patientreceived Living With Heart Failure book. - Daily weight on the same scale, same time after voiding and before eating. - Maintain daily weight log. * Activity (Heart Failure):- Balance activity with rest, gradually increase your activity as tolerated. - Exercise as prescribed by your physician. * Follow Up Appointment 1:Physician/Dept/Service: LVAD Clinic/Leyda Malloy for Referral: Hospital Follow UpScheduled Date/Time: 05-Apr-2021 15:00Location: Virtual visitPhone Number: [phone]: Bring your medication bottles (or updated med list) and a list of your daily weights. * Coumadin (Warfarin) Follow-Up Monitoring:Physician/Dept/Service: [facility] Coumadin ClinicDate/Time nextPT/INR due: 31-Mar-2021 11:00Phone Number: [phone]: Please call to schedule an appointment for INR check on Saturday03/31/21 [facility]05-01-2014 History of Present illness Narrative* Mr. Villalpando is a 59 y/o male with a PMHx sig for stage D systolic HF/NICM/HFrEF with severe LV dysfunction s/p ICD s/p HM II LVAD (08/2013 at [facility]; exchanged 07/[address] [facility] for pump thrombosis) with associated RV dysfunction, CKD, dyslipidemia, DM, pAF, and subclinical hypothyroidism who presents to the LVAD clinic for ongoing evaluation and management. * He is co-managed by the team at [facility] (Dr Yi). * Interval Hx: Patient describes episodes of passing out almost daily. Per patient this has been happening for about a month. It happens most often when going from sitting to standing. Patient states he did hit his head once about one month ago and lost consciousness. Patients left side hit trays andthere is a large hematoma on the upper left side. Per patient he did not have a new defib battery and does not follow anyone for EP outpatient. EP paged to come see patient for interrogation. Patienthas heart palpitations one to two times weekly. Patient denies CP, BLANC, orthopnea, PND, edema, LVADalarms, N/V/D, hematochezia, hematuria, and epistaxis. * Patient was found to be covid positive. Quarantine was completed 01/19/21. * Driveline is clean with no drainage. Patients dressing was changed today in clinic. * The patient presents with non-ischemic heart failure with reduced ejection fraction. The patient's last LV ejection fraction was 10-15%. echo 07/14/2020. The patient is NYHA functional Class I. This is stage D heart failure. * Symptoms: denies lower extremity edema, denies dyspnea on exertion, denies fatigue, denies exerciseintolerance, denies orthopnea and denies paroxysmal nocturnal dyspnea. Associated symptoms include no chest pain, no syncope, no palpitations, no recent weight gain and no recent weight loss. * Home Monitoring: The patient checks his weight sporadically. Weight control has been good. * Medications: the patient is adherent with his medication regimen. He denies medication side effects. * Disease Management: the patient is doing well with his heart failure goals. YS-G[facility]enrms[facility] [address] [place] Work Phone: [phone]) 134-784105-01-2014 History of Present illness Narrative* Mr. Villalpando is a 60 y/o male with a PMHx sig for stage D systolic HF/NICM/HFrEF with severe LV dysfunction s/p ICD s/p HM II LVAD (08/2013 at [facility]; exchanged 07/[address] [facility] for pump thrombosis) with associated RV dysfunction, CKD, dyslipidemia, DM, pAF, and subclinical hypothyroidism who presents to the LVAD clinic for ongoing evaluation and management. * He is co-managed by the team at [facility] (Dr Yi). * Interval Hx: Patient was hospitalized from 03/22-03/27/21 for anemia 2/2 GIB (3 days of black tarry stools). At his local lab ([facility]), Hgb was 5.9. He came to ED and was given 1 uPRBC, Hgb remained low. On the floor, 2 more u of PRBCs were administered. Hgb remained stable around 9. No further black, tarry stools. GI and hematology were consulted and both were thought etiology was most likelyhemolysis. He was DC with an order for Venofer infusions for 3 days, which he did locally. Will repeat ferritin and iron studies o n106/07/20 and resulted to be faxed to the LVAD Clinic. DC weight rsz278.3 kg/236.5 lbs. * He reports feeling well and having more energy. Patient denies CP, palpitations, dizziness, orthopnea, PND, edema, LVAD alarms, N/V/D, hematochezia, hematuria, epistaxis. Is able to walk a couple of blocks + before feeling SOB. Patient is sleeping flat in bed on one pillow, does not wake up gaspingfor air or feeling like he needs to catch his breath. Had some swelling in lower extremities a couple of days ago, took 2 days worth of Torsemide and it went away. * Driveline is clean with no drainage per patient. Dressing was changed on Saturday. * The patient presents with non-ischemic heart failure with reduced ejection fraction. The patient's last LV ejection fraction was <25%. echo 07/14/2020. This is stage D heart failure. * Symptoms: denies lower extremity edema, denies dyspnea on exertion, denies fatigue, denies exerciseintolerance, denies orthopnea and denies paroxysmal nocturnal dyspnea. Associated symptoms include no chest pain, no syncope, no palpitations, no recent weight gain and no recent weight loss. * Home Monitoring: The patient checks his weight sporadically. Weight control has been good. * Medications: the patient is adherent with his medication regimen. He denies medication side effects. * Disease Management: the patient is doing well with his heart failure goals. [facility] [address] Work Phone: [phone]) 320-169805-01-2014 History of Present illness Narrative* Mr. Villalpando is a 60 y/o male with a PMHx sig for stage D systolic HF/NICM/HFrEF with severe LV dysfunction s/p ICD s/p HM II LVAD (08/2013 at [facility]; exchanged 07/[address] [facility] for pump thrombosis) with associated RV dysfunction, CKD, dyslipidemia, DM, pAF, and subclinical hypothyroidism who presents to the LVAD clinic for ongoing evaluation and management. * He is co-managed by the team at [facility] (Dr Yi). * Interval Hx: Patient was hospitalized from 03/22-03/27/21 for anemia 2/2 GIB (3 days of black tarry stools). At his local lab ([facility]), Hgb was 5.9. He came to ED and was given 1 uPRBC, Hgb remained low. On the floor, 2 more u of PRBCs were administered. Hgb remained stable around 9. No further black, tarry stools. GI and hematology were consulted and both were thought etiology was most likelyhemolysis. He was DC with an order for Venofer infusions for 3 days, which he did locally. Will repeat ferritin and iron studies o n106/07/20 and resulted to be faxed to the LVAD Clinic. DC weight owi670.3 kg/236.5 lbs. * He reports feeling well and having more energy. Patient denies CP, palpitations, dizziness, orthopnea, PND, edema, LVAD alarms, N/V/D, hematochezia, hematuria, epistaxis. Is able to walk a couple of blocks + before feeling SOB. Patient is sleeping flat in bed on one pillow, does not wake up gaspingfor air or feeling like he needs to catch his breath. Had some swelling in lower extremities a couple of days ago, took 2 days worth of Torsemide and it went away. * Driveline is clean with no drainage per patient. Dressing was changed on Saturday. * The patient presents with non-ischemic heart failure with reduced ejection fraction. The patient's last LV ejection fraction was <25%. echo 07/14/2020. This is stage D heart failure. * Symptoms: denies lower extremity edema, denies dyspnea on exertion, denies fatigue, denies exerciseintolerance, denies orthopnea and denies paroxysmal nocturnal dyspnea. Associated symptoms include no chest pain, no syncope, no palpitations, no recent weight gain and no recent weight loss. * Home Monitoring: The patient checks his weight sporadically. Weight control has been good. * Medications: the patient is adherent with his medication regimen. He denies medication side effects. * Disease Management: the patient is doing well with his heart failure goals. [facility] Work Phone: [phone]) [phone] History of Present illness Narrative* Mr. Villalpando is a 60 y/o male with a PMHx sig for stage D systolic HF/NICM/HFrEF with severe LV dysfunction s/p ICD s/p HM II LVAD (08/2013 at [facility]; exchanged 07/[address] [facility] for pump thrombosis) with associated RV dysfunction, CKD, dyslipidemia, DM, pAF, and subclinical hypothyroidism who presents to the LVAD clinic for ongoing evaluation and management. * He is co-managed by the team at [facility] (Dr Yi). * Interval Hx: Patient was hospitalized from 03/22-03/27/21 for anemia 2/2 GIB (3 days of black tarry stools). At his local lab ([facility]), Hgb was 5.9. He came to ED and was given 1 uPRBC, Hgb remained low. On the floor, 2 more u of PRBCs were administered. Hgb remained stable around 9. No further black, tarry stools. GI and hematology were consulted and both were thought etiology was most likelyhemolysis. He was DC with an order for Venofer infusions for 3 days, which he did locally. Will repeat ferritin and iron studies o 04/06/21 and resulted to be faxed to the LVAD Clinic. DC weight tzx962.3 kg/236.5 lbs. * He reports feeling well and having more energy. Patient denies CP, palpitations, dizziness, orthopnea, PND, edema, LVAD alarms, N/V/D, hematochezia, hematuria, epistaxis. Is able to walk a couple of blocks + before feeling SOB. Patient is sleeping flat in bed on one pillow, does not wake up gaspingfor air or feeling like he needs to catch his breath. Had some swelling in lower extremities a couple of days ago, took 2 days worth of Torsemide and it went away. * Driveline is clean with no drainage per patient. Dressing was changed on Saturday. * The patient presents with non-ischemic heart failure with reduced ejection fraction. The patient's last LV ejection fraction was <25%. echo 07/14/2020. This is stage D heart failure. * Symptoms: denies lower extremity edema, denies dyspnea on exertion, denies fatigue, denies exerciseintolerance, denies orthopnea and denies paroxysmal nocturnal dyspnea. Associated symptoms include no chest pain, no syncope, no palpitations, no recent weight gain and no recent weight loss. * Home Monitoring: The patient checks his weight sporadically. Weight control has been good. * Medications: the patient is adherent with his medication regimen. He denies medication side effects. * Disease Management: the patient is doing well with his heart failure goals. [facility] Work Phone: [phone] History of Present illness Narrative* Primary LVAD [employer] Worker: Dr. Lay Vaca * Mr. Villalpando is a 61 y/o male with a PMHx sig for stage D systolic HF/NICM/HFrEF with severe LV dysfunction s/p ICD s/p HM II LVAD (08/2013 at [facility]; exchanged 07/[address] [facility] for pump thrombosis) with associated RV dysfunction, CKD, dyslipidemia, DM, pAF, and subclinical hypothyroidism who presents to the LVAD clinic for ongoing evaluation and management. * He is co-managed by the team at [facility] (Dr Yi). * Interval Hx: Patient had swelling in lower extremeties yesterday so took his PRN tyorsemide 20mg. Patient did not feel the need to take his torsemide today; his swelling has went down. and Patient denies CP, palpitations, dizziness, BLANC, orthopnea, PND, edema, LVAD alarms, N/V/D, hematochezia, hemat uria, and epistaxis. * Patient scheduled with oncology/hematology this for abnormal CBC. * Driveline has clear drainage with small scab that is typical for patient. Driveline changed 09/25. Patient to email photo of site to LVAD email. * The patient presents with non-ischemic heart failure with reduced ejection fraction. The patient's last LV ejection fraction was 10-15%. echo 08/24/2021. The patient is NYHA functional Class I. This is stage D heart failure. * Symptoms: denies lower extremity edema, denies dyspnea on exertion, denies fatigue, denies exerciseintolerance, denies orthopnea and denies paroxysmal nocturnal dyspnea. Associated symptoms include no chest pain, no syncope, no palpitations, no recent weight gain and no recent weight loss. * Home Monitoring: The patient checks his weight sporadically. Weight control has been good. * Medications: the patient is adherent with his medication regimen. He denies medication side effects. * Disease Management: the patient is doing well with his heart failure goals. [facility]Llo[facility]ouum[facility] [address] [place] Work Phone: [phone] History of Present illness Narrative* Primary LVAD [employer] Worker: Dr. Lay Vaca * Mr. Villalpando is a 61 y/o male with a PMHx sig for stage D systolic HF/NICM/HFrEF with severe LV dysfunction s/p ICD s/p HM II LVAD (08/2013 at [facility]; exchanged 07/[address] [facility] for pump thrombosis) with associated RV dysfunction, CKD, dyslipidemia, DM, pAF, and subclinical hypothyroidism who presents to the LVAD clinic for ongoing evaluation and management. * He is co-managed by the team at [facility] (Dr Yi). Has not been seen by [facility] in a couple of years he says. * Interval Hx: Patient denies CP, palpitations, dizziness, BLANC, orthopnea, PND, LVAD alarms, N/V/D, hematochezia, hematuria, epistaxis. Patient sleeps lying flat with 1 pillow. Has some BLE that he states is dependent edema from travelling here. He has been taking PRN torsemide about 3x per week recently because he is moving and has been up on his feet a lot. INR is being managed by [facility] program. * Driveline is clean with no drainage. Dressing was changed last night by his . Dressing is c/d/i. * The patient presents with non-ischemic heart failure with reduced ejection fraction. The patient's last LV ejection fraction was 10-15%. echo 08/24/2021. This is stage D heart failure. * Symptoms: worsened lower extremity edema, denies dyspnea on exertion, denies fatigue, denies exercise intolerance, denies orthopnea and denies paroxysmal nocturnal dyspnea. Associated symptoms include no chest pain, no syncope, no palpitations, no recent weight gain and no recent weight loss. * Home Monitoring: The patient checks his weight sporadically. Weight control has been good. * Medications: the patient is adherent with his medication regimen. He denies medication side effects. * Disease Management: the patient is doing well with his heart failure goals. [id number]-XLP [address] [place] Work Phone: [phone]) 192-760305-01-2014 History of Present illness Narrative* Primary LVAD [employer] Worker: Dr. Lay Vaca * Mr. Villalpando is a 61 y/o male with a PMHx sig for stage D systolic HF/NICM/HFrEF with severe LV dysfunction s/p ICD s/p HM II LVAD (08/2013 at [facility]; exchanged 07/[address] [facility] for pump thrombosis) with associated RV dysfunction, CKD, dyslipidemia, DM, pAF, and subclinical hypothyroidism who presents to the LVAD clinic for ongoing evaluation and management. * He is co-managed by the team at [facility] (Dr Yi). Has not been seen by [facility] in a couple of years he says. * Interval Hx: Patient denies CP, palpitations, dizziness, BLANC, orthopnea, PND, edema, LVAD alarms, N/V/D, hematochezia, hematuria, epistaxis. Patient sleeps flat in bed with 1 pillows. Denies difficulty ambulating long distances or flights of stairs. Takes diuretic pills 3x/week. Most recent INR is 2.8. * Driveline is clean with no drainage. Dressing was last changed on Saturday. * The patient presents with non-ischemic heart failure with reduced ejection fraction. The patient's last LV ejection fraction was 10-15%. echo 08/24/2021. The patient is NYHA functional Class II. This is stage D heart failure. * Symptoms: denies lower extremity edema, denies dyspnea on exertion, denies fatigue, denies exerciseintolerance, denies orthopnea and denies paroxysmal nocturnal dyspnea. Associated symptoms include no chest pain, no syncope, no palpitations, no recent weight gain and no recent weight loss. * Home Monitoring: The patient checks his weight sporadically. Weight control has been good. * Medications: the patient is adherent with his medication regimen. He denies medication side effects. * Disease Management: the patient is doing well with his heart failure goals. Due For: electrolytes and an echocardiogram. MF-Hjylrhdvwi-CRJ [address] [place] Work Phone: [phone] 392-844405-01-2014 History of Present illness Narrative* Primary LVAD [employer] Worker: Dr. Lay Vaca * Mr. Villalpando is a 61 y/o male with a PMHx sig for stage D systolic HF/NICM/HFrEF with severe LV dysfunction s/p ICD s/p HM II LVAD (08/2013 at [facility]; exchanged 07/[address] [facility] for pump thrombosis) with associated RV dysfunction, CKD, dyslipidemia, DM, pAF, and subclinical hypothyroidism who presents to the LVAD clinic for ongoing evaluation and management. * He is co-managed by the team at [facility] (Dr Yi). Has not been seen by [facility] in a couple of years he says. * Interval Hx: Patient denies CP, palpitations, dizziness, BLANC, orthopnea, PND, edema, LVAD alarms, N/V/D, hematochezia, hematuria, epistaxis. Patient sleeps flat in bed with 1 pillows. Denies difficulty ambulating long distances or flights of stairs. Takes diuretic pills 3x/week. Most recent INR is 2.8. * Driveline is clean with no drainage. Dressing was last changed on Saturday. * The patient presents with non-ischemic heart failure with reduced ejection fraction. The patient's last LV ejection fraction was 10-15%. echo 08/24/2021. The patient is NYHA functional Class II. This is stage D heart failure. * Symptoms: denies lower extremity edema, denies dyspnea on exertion, denies fatigue, denies exerciseintolerance, denies orthopnea and denies paroxysmal nocturnal dyspnea. Associated symptoms include no chest pain, no syncope, no palpitations, no recent weight gain and no recent weight loss. * Home Monitoring: The patient checks his weight sporadically. Weight control has been good. * Medications: the patient is adherent with his medication regimen. He denies medication side effects. * Disease Management: the patient is doing well with his heart failure goals. Due For: electrolytes and an echocardiogram. [facility] Work Phone: [phone] 413-379905-01-2014 History of Present illness Narrative* Primary LVAD [employer] Worker: Dr. Lay Vaca * Mr. Villalpando is a 61 y/o male with a PMHx sig for stage D systolic HF/NICM/HFrEF with severe LV dysfunction s/p ICD s/p HM II LVAD (08/2013 at [facility]; exchanged 07/[address] [facility] for pump thrombosis) with associated RV dysfunction, CKD, dyslipidemia, DM, pAF, and subclinical hypothyroidism who presents to the LVAD clinic for ongoing evaluation and management. * He is co-managed by the team at [facility] (Dr Yi). Has not been seen by [facility] in a couple of years he says. * Interval Hx: Patient denies CP, palpitations, dizziness, BLANC, orthopnea, PND, edema, LVAD alarms, N/V/D, hematochezia, hematuria, epistaxis. Patient sleeps flat in bed with 1 pillows. Denies difficulty ambulating long distances or flights of stairs. Takes diuretic pills 3x/week. Most recent INR is 2.8. * Driveline is clean with no drainage. Dressing was last changed on Saturday. * The patient presents with non-ischemic heart failure with reduced ejection fraction. The patient's last LV ejection fraction was 10-15%. echo 08/24/2021. The patient is NYHA functional Class II. This is stage D heart failure. * Symptoms: denies lower extremity edema, denies dyspnea on exertion, denies fatigue, denies exerciseintolerance, denies orthopnea and denies paroxysmal nocturnal dyspnea. Associated symptoms include no chest pain, no syncope, no palpitations, no recent weight gain and no recent weight loss. * Home Monitoring: The patient checks his weight sporadically. Weight control has been good. * Medications: the patient is adherent with his medication regimen. He denies medication side effects. * Disease Management: the patient is doing well with his heart failure goals. Due For: electrolytes and an echocardiogram. PM-Txqlpxsoaa-Hbanilvw Work Phone: Chief complaint Narrative - ReportedLARRCaterina VILLALPANDO is being seen for a 5 week follow-up of heart failure, mechanical circulatory supportand a routine medication evaluation. He denies medication side effects. FF-Kkjkzyhaxr-IOW [address] [place] Work Phone: Chief complaint Narrative - ReportedLARRCaterina VILLALPANDO is being seen for a 6 month follow-up of heart failure, mechanical circulatory support and a routine medication evaluation. He denies medication side effects. [facility] [address] [place] Work Phone: Chief complaint Narrative - ReportedTERRY VILLALPANDO is being seen for a 3 month follow-up of heart failure, mechanical circulatory support and a routine medication evaluation. He denies medication side effects. [facility] [address] [place] Work Phone: Evaluation + Plan note No data available for this section [facility]* LVEF % at Discharge:Left Ventricular Ejection Fraction %: 15% * Cardiovascular: Regular, rate and rhythm, no murmurs, +VAD hum (HM2)Gastrointestinal: Soft, NT/ND, +BSMusculoskeletal: ROM intact, no joint swelling, normal strengthExtremities: normal extremities, no edemaNeurological: alert and oriented x3, no focal deficitsEyes: PERRL, EOMI, anictericSkin: Warm and dry, no lesions, no rashes, driveline dressing C/D/I, pallor in face has improved with 3 u PRBCENMT: MMM, no apparent injury, no lesions seenHead/Neck: No JVDRespiratory/Thorax: Patent airways, CTAB, normal breath sounds with good chest expansionConstitutional: Well developed, awake/alert/oriented x3, no distress, alert and cooperativePsychological: Appropriate mood and behavior [facility] Diagnosis MGUS (monoclonal gammopathy of unknown significance)- Primary Monoclonal paraproteinemia Thrombocytopenia (HCC) Thrombocytopenia, unspecified Encounter for screening for human immunodeficiency virus (HIV) Special screening examination for other specified viral diseases documented in this encounter [facility] note* Diagnosis MGUS (monoclonal gammopathy of unknown significance)- Primary Monoclonal paraproteinemia Absent serum haptoglobin Thrombocytopenia (HCC) Thrombocytopenia, unspecified documented in this encounter [facility] note* Diagnosis MGUS (monoclonal gammopathy of unknown significance)- Primary Monoclonal paraproteinemia Absent serum haptoglobin Thrombocytopenia (HCC) Thrombocytopenia, unspecified documented in this encounter [facility] note* Diagnosis MGUS (monoclonal gammopathy of unknown significance)- Primary Monoclonal paraproteinemia Abnormal finding of blood chemistry, unspecified [facility] Diagnosis Monoclonal gammopathy- Primary Monoclonal paraproteinemia Multiple myeloma not having achieved remission (HCC) Multiple myeloma, without mention of having achieved remission Malignant neoplasm of prostate (HCC) Malignant neoplasm of prostate Stage 3a chronic kidney disease (HCC) documented in this encounter [facility]* Diagnosis ICD (implantable cardioverter-defibrillator) discharge- Primary ICD (implantable cardioverter-defibrillator) discharge HFrEF (heart failure with reduced ejection fraction) ([facility]/HCC) History of left ventricular assist device ([facility]/HCC) LVAD (left ventricular assist device) present ([facility]/HCC) Heart failure ([facility]/HCC) Unspecified heart failure Other specified hypothyroidism HFrEF (heart failure with reduced ejection fraction) ([facility]) LVAD (left ventricular assist device) present ([facility]/HCC) ICD (implantable cardioverter-defibrillator) discharge LVAD (left ventricular assist device) present ([facility]) documented in this encounter [facility] Work Phone: Evaluation note* Diagnosis Cardiomyopathy, unspecified ([facility]) Presence of automatic (implantable) cardiac defibrillator documented in this encounter [facility] Work Phone: Evaluation note* Diagnosis Type 2 diabetes mellitus with diabetic polyneuropathy, with long-term current use of insulin ([facility])- Primary BMI 33.0-33.9,adult Chronic systolic heart failure ([facility]/HCC) Chronic systolic heart failure Cardiac arrhythmia, unspecified cardiac arrhythmia type History of implantable cardioverter-defibrillator (ICD) insertion documented [facility] this [facility] N[facility]* Patient identification verified with 2 patient identifiers. * Anticoagulation Monitoring Service: [facility]. * Enrollment/Re-enrollment date: August 07, 2022. * The patient is being seen as a new patient for anticoagulation monitoring. * Pt was [facility] today in [facility] [place]. Pt was referred by JENNIFER Palacios with dx ofLVAD. Patient contract form completed. Past medical history includes: afib, AI, CHF, COPD, DM, HLD,HTN, CT, RENU. Current meds reviewed and are listed in EMR. Educational information discussed including: indication, potential drug interactions (including ASA and ibuprofen), dietary considerations, effects of alcohol, changes in general health to report, compliance with f/u, dosing (including missed doses), signs of bleeding/clotting to report, and to seek medical attention if illness or injury occurs. [facility] voicemail number given to pt. Take home material provided. Pt verbalized understanding. PT HAS BEEN ON WARFARIN SINCE AT LEAST 2016 AND IS NOW ESTABLISHING CARE WITH [facility]. * Target INR 2-3. Monitoring practitioner JENNIFER PALACIOS. * Date Warfarin Begun: 2016 * INR monitoring is per [facility] protocol. PT MAY NOT GO LONGER THAN 2 WEEKS BETWEEN APPTS. * The patient is on anticoagulation due to LVAD and NOTIFY LVAD COORDINATOR JENNIFER PALACIOS (PAGER #[phone]) FOR INR <1.8 OR >4. * The patient is currently taking warfarin Tablet strength and color: 3 mg (Ugarte) * Interval History: * Incoming total weekly dose 31.5 mg. * Today's Clinic INR: [facility] INR 2.8. * Since last visit, the patient reports no bleeding. * The patient did not experience clinically relevant bleeding. * The patient did not experience other minor bleeding. * Since last visit, the patient has not experienced a thrombotic event. * The patient reports no change in medication. * He reports no change in alcohol consumption. * He reports no change in Vitamin K consumption. * The patient has taken Warfarin as directed. * Management: The patient's INR is within target range. Will maintain dose. * The patient is not currently being bridged. * Next follow up appointment in 3-5 day(s). [facility] * Outgoing total weekly dose 31.5 mg. * Patient instructed to call in interim with questions, concerns and changes. Patient educated on interactions between medications and warfarin. Patient educated on dietary consistency in vitamin k consumption. Patient educated on affects of alcohol consumption while taking warfarin. Patient educatedon signs of bleeding/clotting. Patient educated on compliance with dosing, follow up appointments, and prescribed plan of care. PT SIGNED PST FORM TODAY 08/24; WILL SEND FORM TO DEVIN LAZARO. Anticoagulation [facility] Work Phone: Progress note No data available for this section [facility] (narrative)* Diagnostic Procedure Only (Routine) - Pending Review Specialty Diagnoses / Procedures Referred By Contac t Referred To Contact XR IMAGING Diagnoses MGUS (monoclonal gammopathy of unknown significance) Thrombocytopenia (HCC) Encounter for screening for human immunodeficiency virus (HIV) Procedures XR BONE SURVEY ROUTINE RADIOLOGIC EXAMINATION OSSEOUS SURVEY COMPL Jerrell Kraus MD [address] [place] [address] [place] [address] Xr Imaging Referral ID Status Reason Start Date Expiration Date Visits Requested Visits Authorized [id number] Pending Review Auto-Generat ed Referral 09/21/2021 10/21/2022 1 1 * Diagnostic Procedure Only (Routine) - Pending Review Specialty Diagnoses / Procedures Referred By Tegan t Referred To Contact US IMAGING Diagnoses MGUS (monoclonal gammopathy of unknown significance) Thrombocytopenia (HCC) Encounter for screening for human immunodeficiency virus (HIV) Procedures US ABD RT UPPER QUADRANT US ABDOMINAL REAL TIME W/IMAGE LIMITED Jerrell Kraus MD [address] [place] [address] [place] [address] Us Imaging Referral ID Status Reason Start Date Expiration Date Visits Requested Visits Authorized [id number] Pending Review Auto-Generat ed Referral 09/21/2021 10/21/2022 1 1 * Diagnostic Procedure Only (Routine) - Pending Review Specialty Diagnoses / Procedures Referred By Contac t Referred To Contact US IMAGING Diagnoses MGUS (monoclonal gammopathy of unknown significance) Thrombocytopenia (HCC) Encounter for screening for human immunodeficiency virus (HIV) Procedures US ABD SPLEEN US ABDOMINAL REAL TIME W/IMAGE LIMITED Jerrell Kraus MD [address] [place] [address] [place] [address] Us Imaging Referral ID Status Reason Start Date Expiration Date Visits Requested Visits Authorized [id number] Pending Review Auto-Generat ed Referral 09/21/2021 10/21/2022 1 1 [facility] Diagnostic Procedure Only (Routine) - Authorized Specialty Diagnoses / Procedures Referred By Contac t Referred To Contact MOLECULAR & FUNCTIONAL IMAGING Diagnoses Multiple myeloma not having achieved remission (HCC) Monoclonal gammopathy Procedures NM PET/CT WHOLE BODY INITIAL PET IMAGING FOR CT ATTENUATION WHOLE BODY Ailyn Friend MD [address] [place] [id number] Molecular & Functional Imaging [address] [place] [address] Referral ID Status Reason Start Date Expiration Date Visits Requested Visits Authorized [id number] Authorized Auto-Generat ed Referral 12/19/2022 10/18/2023 1 1 [facility] Summary Purpose Family History Mother Name Dates Details Family history of congestive heart failure(V17.49, Z82.49) Status:Active Father Name Dates Details Family history of congestive heart failure(V17.49, Z82.49) Status:Active Mother Name Dates Details Family history of congestive heart failure(V17.49, Z82.49) Status:Active Father Name Dates Details Family history of congestive heart failure(V17.49, Z82.49) Status:Active Unknown Family Member Name Dates Details Family history of congestive heart failure: Mother, Father(V17.49, Z82.49) Status:Active Unknown Family Member Name Dates Details Family history of congestive heart failure: Mother, Father(V17.49, Z82.49) Status:Active Unknown Family Member Name Dates Details Family history of congestive heart failure: Mother, Father(V17.49, Z82.49) Status:Active Unknown Family Member Name Dates Details Family history of congestive heart failure: Mother, Father(V17.49, Z82.49) Status:Active Unknown Family Member Name Dates Details Family history of congestive heart failure: Mother, Father(V17.49, Z82.49) Status:Active Unknown Family Member Name Dates Details Family history of congestive heart failure: Mother, Father(V17.49, Z82.49) Status:Active Unknown Family Member Name Dates Details Family history of congestive heart failure: Mother, Father(V17.49, Z82.49) Status:Active Unknown Family Member Name Dates Details Family history of congestive heart failure: Mother, Father(V17.49, Z82.49) Status:Active Unknown Family Member Name Dates Details Family history of congestive heart failure: Mother, Father(V17.49, Z82.49) Status:Active Unknown Family Member Name Dates Details Family history of congestive heart failure: Mother, Father(V17.49, Z82.49) Status:Active Unknown Family Member Name Dates Details Family history of congestive heart failure: Mother, Father(V17.49, Z82.49) Status:Active Unknown Family Member Name Dates Details Family history of congestive heart failure: Mother, Father(V17.49, Z82.49) Status:Active Unknown Family Member Name Dates Details Family history of congestive heart failure: Mother, Father(V17.49, Z82.49) Status:Active Unknown Family Member Name Dates Details Family history of congestive heart failure: Mother, Father(V17.49, Z82.49) Status:Active Unknown Family Member Name Dates Details Family history of congestive heart failure: Mother, Father(V17.49, Z82.49) Status:Active Unknown Family Member Name Dates Details Family history of congestive heart failure: Mother, Father(V17.49, Z82.49) Status:Active Unknown Family Member Name Dates Details Family history of congestive heart failure: Mother, Father(V17.49, Z82.49) Status:Active Unknown Family Member Name Dates Details Family history of congestive heart failure: Mother, Father(V17.49, Z82.49) Status:Active Unknown Family Member Name Dates Details Family history of congestive heart failure: Mother, Father(V17.49, Z82.49) Status:Active Unknown Family Member Name Dates Details Family history of congestive heart failure: Mother, Father(V17.49, Z82.49) Status:Active Unknown Family Member Name Dates Details Family history of congestive heart failure: Mother, Father(V17.49, Z82.49) Status:Active Unknown Family Member Name Dates Details Family history of congestive heart failure: Mother, Father(V17.49, Z82.49) Status:Active Unknown Family Member Name Dates Details Family history of congestive heart failure: Mother, Father(V17.49, Z82.49) Status:Active Unknown Family Member Name Dates Details Family history of congestive heart failure: Mother, Father(V17.49, Z82.49) Status:Active Unknown Family Member Name Dates Details Family history of congestive heart failure: Mother, Father(V17.49, Z82.49) Status:Active Unknown Family Member Name Dates Details Family history of congestive heart failure: Mother, Father(V17.49, Z82.49) Status:Active Unknown Family Member Name Dates Details Family history of congestive heart failure: Mother, Father(V17.49, Z82.49) Status:Active Advance Directives Documents on File Type Date Recorded 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 He denies medication side effects. * A telephone visit (audio only) between the patient (at the originating site) and the provider (at the distant site) was utilized to provide this telehealth service. * Verbal consent was requested and obtained from TERRY VILLALPANDO on this date, 04/05/2021 11:20 AM , for a telehealth visit. * TERRY VILLALPANDO is being seen for follow-up of a hospitalization for heart failure, mechanical circulatory support and a routine medication evaluation. He denies medication side effects. * A telephone visit (audio only) between the patient (at the originating site) and the provider (at the distant site) was utilized to provide this telehealth service. * Verbal consent was requested and obtained from TERRY VILLALPANDO on this date, 04/05/2021 11:20 AM , for a telehealth visit. * TERRY VILLALPANDO is being seen for follow-up of a hospitalization for heart failure, mechanical circulatory support and a routine medication evaluation. He denies medication side effects. * A telephone visit (audio only) between the patient (at the originating site) and the provider (at the distant site) was utilized to provide this telehealth service. * Verbal consent was requested and obtained from TERRY YUVAL on this date, 04/05/2021 11:20 AM , for a telehealth visit. TERRY VILLALPANDO is being seen for a 6 month follow-up of fatigue and mechanical circulatory support.TERRY VILLALPANDO is being seen for a 6 month follow-up of fatigue and mechanical circulatory support.TERRY VILLALPANDO is being seen for a 6 month follow-up of fatigue and mechanical circulatory support. Reason for Referral Specialty Diagnoses / Procedures Referred By Contac t Referred To Contact Cardiology Diagnoses Cardiomyopathy, unspecified (CMS/HCC) Presence of automatic (implantable) cardiac defibrillator Procedures Cardiac device check - Remote Matias Yip [place] [facility] [place] [address] Referral ID Status Reason Start Date Expiration Date Visits Requested Visits Authorized [id number] Pending Review Perform Procedure 05/27/2023 05/26/2024 1 1 Referral ID Status Reason Start Date Expiration Date Visits Requested Visits Authorized [id number] Pending Review Perform Procedure 05/29/2023 05/28/2024 1 1 Additional Source Comments (unrecognized sect ion and content) No Status Records FoundNo Status Records FoundNo Status Records FoundNo Status Records FoundNo Status Records FoundNo Status Records FoundNo Status Records FoundNo Status Records Found INFORMATION SOURCE (unrecogn ized section and content) DATE CREATED AUTHOR 08/24/2018 [facility] DATE CREATED AUTHOR AUTHOR'S ORGANIZ ATION 08/17/2022 [employer] DATE CREATED AUTHOR AUTHOR'S ORGANIZ ATION 09/02/2022 [facility] DATE CREATED AUTHOR AUTHOR'S ORGANIZ ATION 01/13/2023 [facility] DATE CREATED AUTHOR AUTHOR'S ORGANIZ ATION 04/11/2023 [facility] DATE CREATED AUTHOR AUTHOR'S ORGANIZ ATION 05/27/2023 [facility] dical Special[facility] EPIC DATE CREATED AUTHOR AUTHOR'S ORGANIZ ATION 05/29/2023 [facility] DATE CREATED AUTHOR AUTHOR'S ORGANIZ ATION 05/29/2023 [facility] <item><item> Privacy Markings (unrecogniz ed section and content) Section Author: Beth Hollis PROHIBITION ON REDISCLOSURE OF CONFIDENTIAL INFORMATION This notice accompanies a disclosure of information concerning a client made to you with the consent of such client. Section Author: Beth Hollis PROHIBITION ON REDISCLOSURE OF CONFIDENTIAL INFORMATION This notice accompanies a disclosure of information concerning a client made to you with the consent of such client. Source Comments (unrecognize d section and content) In the event this informatio n is protected by the Federal Confidentiality of Alcohol and Drug Abuse Patient Records regulations: The Federal rules restrict any use of the information to criminally investigate or prosecute any alcohol or drug abuse patient.[facility] the event this information is protected by the Federal Confidentiality of Alcohol and Drug Abuse Patient Records regulations: The Federal rules restrict any use of the information to criminally investigate or prosecute any alcohol or drug abuse patient.[facility] Hospital[facility] the event this information is protected by the Federal Confidentiality of Alcohol and Drug Abuse Patient Records regulations: The Federal rules restrict any use of the information to criminally investigate or prosecute any alcohol or drug abuse patient.[facility] Hospital[facility] the event this information is protected by the Federal Confidentiality of Alcohol and Drug Abuse Patient Records regulations: The Federal rules restrict any use of the information to criminally investigate or prosecute any alcohol or drug abuse patient.[facility] HospitalIn the event this information is protected by the Federal Confidentiality of Alcohol and Drug Abuse Patient Records regulations: The Federal rules restrict any use of the information to criminally investigate or prosecute any alcohol or drug abuse patient.[facility] HospitalIn the event this information is protected by the Federal Confidentiality of Alcohol and Drug Abuse Patient Records regulations: The Federal rules restrict any use of the information to criminally investigate or prosecute any alcohol or drug abuse patient.[facility] the event this information is protected by the Federal Confidentiality of Alcohol and Drug Abuse Patient Records regulations: The Federal rules restrict any use of the information to criminally investigate or prosecute any alcohol or drug abuse patient.[facility] Reason for Visit (unrecogniz ed section and content) Reason Comments Abnormal Lab Consult Reason Comments MGUS Reason Comments MGUS follow up Reason Comments MGUS Follow up Reason Comments Lab Orders Reason Comments Results Reason Comments MGUS (monoclonal gammopathy of unknown s ignificance) Specialty Diagnoses / Procedures Referred By Contac t Referred To Contact Diagnoses ICD (implantable cardioverter-defibrillator) discharge LVAD, defibrillator firing Procedures NO CODED SERVICES Len Guardado MD [address] [facility], [place] [address] [place] [address] [facility] [address] [facility] 7th [place] [address] Referral ID Status Reason Start Date Expiration Date Visits Re quested Visits Authorized [id number] 1 1 Specialty Diagnoses / Procedures Referred By Contac t Referred To Contact Cardiology Diagnoses Cardiomyopathy, unspecified (CMS/HCC) Presence of automatic (implantable) cardiac defibrillator Procedures Cardiac device check - Remote Matias Yip MD [address] [place] [address] Referral ID Status Reason Start Date Expiration Date Visits Requested Visits Authorized [id number] Pending Review Perform Procedure 05/27/2023 05/26/2024 1 1 Referral ID Status Reason Start Date Expiration Date Visits Requested Visits Authorized [id number] Pending Review Perform Procedure 05/29/2023 05/28/2024 1 1 Care Teams (unrecognized sec tion and content) Credit Associate Relationship Specialty Start Date End Date Joleen Herrera, CELL BIOLOGY SCIENTIST [address] [place] [address] PCP - General Family Practice 09/13/21 Credit Associate Relationship Specialty Start Date End Date Joleen Herrera, CELL BIOLOGY SCIENTIST [address] [place] [address] PCP - General Family Practice 09/13/21 Credit Associate Relationship Specialty Start Date End Date Joleen Herrera, CELL BIOLOGY SCIENTIST [address] [place] [address] PCP - General Family Practice 09/13/21 Credit Associate Relationship Specialty Start Date End Date Joleen Herrera, CELL BIOLOGY SCIENTIST [address] [place] [address] PCP - General Family Medicine 09/13/21 Credit Associate Relationship Specialty Start Date End Date Joleen Herrera, CELL BIOLOGY SCIENTIST [address] [place] [address] PCP - General Family Medicine 09/13/21 Credit Associate Relationship Specialty Start Date End Date Joleen Herrera, CELL BIOLOGY SCIENTIST [address] [place] [address] PCP - General Family Medicine 09/13/21 Credit Associate Relationship Specialty Start Date End Date Joleen Herrera, CELL BIOLOGY SCIENTIST [address] [place] [address] PCP - General Family Medicine 09/13/21 Credit Associate Relationship Specialty Start Date End Date Joleen Herrera, SAUSAGE LINKER-CELL BIOLOGY SCIENTIST [address] [place] [address] PCP - General 02/21/20 Poly Dominguez DIDI Registered Nurse Transplant 01/23/23 Nazanin Coleman RN MCS Coordinator Transplant 05/17/23 [place] [address] [place] [address] Consulting Physician Cardiology 05/17/23 [facility] [address] Department [place] [address] Nurse Practitioner Cardiology 05/23/23 Credit Associate Relationship Specialty Start Date End Date Joleen Herrera [facility] [address] [place] [address] PCP - General 02/21/20 Poly Dominguez RN Registered Nurse Transplant 01/23/23 Nazanin Coleman RN MCS Coordinator Transplant 05/17/23 [place] [address] [place] [address] Consulting Physician Cardiology 05/17/23 Aisha Barger, [facility] [address] [facility] [place] [address] Nurse Practitioner Cardiology 05/23/23 Credit Associate Relationship Specialty Start Date End Date Obed Burrell MD PCP - General Family Medicine 04/17/23 Joleen Herrera NP [address] [place] [place] [address] Nurse Practitioner Family Medicine 04/17/23 Scheduled Active and Recently Administ ered Medications (unrecognized section and content) Medication Order 05/22/2023 05/23/202305/2405/24/2023 amiodarone (Pacerone) tablet 200 mg 200 mg, oral, Daily, First dose on 05/19/23 at 1230 0900 (Not Given - Provider: Esther Pugh RN - Reason: See Provider Order) 0900 (Not Given - Provider: Esther Pugh RN - Reason: See Provider Order) 0900 (Not Given - Provider: Esther Pugh RN - Reason: See Provider Order) amiodarone (Pacerone) tablet 400 mg 400 mg, oral, Every 8 hours, First dose (after last modification) on Sat05/21/23 at 1315 0601 (Given - Provider: Maribell Bradshaw RN)1222 (Given - Provider: Esther Pugh RN)2025 (Given - Provider: Darby Nunez RN) 0610 (Given - Provider: Darby Nunez RN)1232 (Given - Provider: Esther Pugh RN)2035 (Given - Provider: Darby Nunez RN) 0608 (Given - Provider: Darby Nunez RN)1345 (Given - Provider: Eliana Peterson RN)2115 (Due) aspirin EC tablet 81 mg 81 mg, oral, Daily, First dose on 05/19/23 at 1230, Do not crush, chew, or split. 0921 (Given - Provider: Esther Pugh RN) 0927 (Given - Provider: Esther Pugh RN) 0838 (Given - Provider: Esther Pugh RN) carvedilol (Coreg) tablet 6.25 mg 6.25 mg, oral, 2 times daily, First dose on 05/19/23 at 1230 0922 (Given - Provider: Esther Pugh RN)2025 (Given - Provider: Darby Nunez RN) 0927 (Given - Provider: Esther Pugh RN)2035 (Given - Provider: Darby Nunez RN) 0839 (Given - Provider: Esther Pugh RN)2100 (Due) cephalexin (Keflex) capsule 500 mg(Linked Group 1) 500 mg, oral, Every 8 hours scheduled, First dose on Sat05/23/23 at 1400, For 3 days, Suspected Indication (Select all that apply): Surgical Prophylaxis 1337 (Given - Provider: Esther Pugh RN)203 (Given - Provider: Darby Nunez RN) 0608 (Given - Provider: Darby Nunez RN)1325 (Given - Provider: Eliana Peterson RN)2200 (Due) cholecalciferol (Vitamin D-3) tablet 2,000 Units 2,000 Units, oral, Daily, First dose on Sat05/19/23 at 1230 0922 (Given - Provider: Esther Pugh RN) 0927 (Given - Provider: Esther Pugh RN) 0838 (Given - Provider: Esther Pugh RN) dapagliflozin propanediol (Farxiga) tablet 10 mg 10 mg, oral, Daily before breakfast, First dose on Sat05/20/23 at 0700, Indications: heart failure with reduced ejection fraction 0601 (Given - Provider: Maribell Bradshaw RN) 0610 (Given - Provider: Darby Nunez, DIDI) 0608 (Given - Provider: Darby Nunez RN) digoxin (Lanoxin) tablet 125 mcg 125 mcg, oral, 3 times weekly (Once per day on Sat), First dose on Sat05/20/23 at 0900 0922 (Given - Provider: Esther Pugh RN) 0838 (Given - Provider: Esther Pugh RN) fluticasone (Flonase) nasal spray 2 spray 2 spray, Each Nostril, Daily, First dose on 05/19/23 at 1230, Shake gently. Before first use, prime pump (press 6 times until fine spray appears). After use, clean tip and replace cap. 0900 (Not Given - Provider: Esther Pugh RN - Reason: Patient/family refused) 0900 (Not Given - Provider: Esther Pugh RN - Reason: Patient/family refused) 0900 (Not Given - Provider: Esther Pugh RN - Reason: Patient/family refused) gabapentin (Neurontin) capsule 300 mg 300 mg, oral, 2 times daily, First dose on 05/19/23 at 1230, Capsules may be opened and sprinkled on food (eg, applesauce, orange juice, pudding 09 (Given - Provider: Esther Pugh RN)2025 (Given - Provider: Darby Nunez RN) 09 (Given - Provider: Esther Pugh RN)203 (Given - Provider: Darby Nunez RN) 0838 (Given - Provider: Esther Pugh RN)2100 (Due) insulin detemir (Levemir) injection 32 Units 32 Units, subcutaneous, 2 times daily before meals, First dose (after last modification) on Sat05/20/23 at 1600, 30 minutes pre-meal or, no more than 5 minutes pre-meal if combined with Lispro. Morning and bedtime meals. 0700 (Not Given - Provider: Esther Pugh RN - Reason: NPO - Comment: patient npo for procedure)1802 (Given - Provider: Esther Pugh RN - Comment: flexible meal times) 0930 (Given - Provider: Esther Pugh RN - Comment: flexible mealtimes)1730 (Given - Provider: Esther Pugh RN - Comment: flexible mealtimes) 0949 (Given - Provider: Esther Pugh RN)1600 (Due) insulin lispro (HumaLOG) injection 0-10 Units 0-10 Units, subcutaneous, 3 times daily with meals, First dose on Sat05/19/23 at 1315, Insulin Lispro Corrective Scale #2 Hypoglycemia protocol Call LIP unit(s) if Blood Glucose is between 0 - 70 mg/dL 0 unit(s) if Blood glucose is between 71-150 2 unit(s) if Blood glucose is between 151-200 4 unit(s) if Blood glucose is between 201-250 6 unit(s) if Blood glucose is between 251-300 8 unit(s) if Blood glucose is between 301-350 10 unit(s) if Blood glucose is between 351-400 Notify provider unit(s) if Blood Glucose is greater than 400 mg/dL 0800 (Not Given - Provider: Esther Pugh RN - Reason: Order parameters not met)1200 (Not Given - Provider: Esther Pugh RN - Reason: NPO)1804 (Given - Provider: Esther Pugh RN - Comment: flexible mealtimes) 0931 (Given - Provider: Esther Pugh RN - Comment: flexible mealtimes)1232 (Given - Provider: Esther Pugh RN)1727 (Given - Provider: Esther Pugh RN) 0800 (Not Given - Provider: Esther Pugh RN - Reason: Order parameters not met)1200 (Not Given - Provider: Esther Pugh RN - Reason: Order parameters not met)1700 (Due) levothyroxine (Synthroid, Levoxyl) tablet 100 mcg 100 mcg, oral, Daily, First dose on 05/19/23 at 1230 0926 (Given - Provider: Esther Pugh RN) 0933 (Given - Provider: Esther Pugh RN) 0838 (Given - Provider: Esther Pugh RN) lisinopril tablet 5 mg 5 mg, oral, Daily, First dose on 05/19/23 at 1230 0922 (Given - Provider: Esther Pugh RN) 0927 (Given - Provider: Esther Pugh RN) 0838 (Given - Provider: Esther Pugh RN) loratadine (Claritin) tablet 10 mg 10 mg, oral, Daily, First dose on 05/19/23 at 1230 0922 (Given - Provider: Esther Pugh RN) 0927 (Given - Provider: Esther Pugh RN) 0838 (Given - Provider: Esther Pugh RN) magnesium oxide (Mag-Ox) tablet 800 mg 800 mg, oral, 2 times daily, First dose on Sat05/21/23 at 1315 0921 (Given - Provider: Esther Pugh RN)2025 (Given - Provider: Darby Nunez RN) 0927 (Given - Provider: Esther Pugh RN)2035 (Given - Provider: Darby Nunez RN) 0838 (Not Given - Provider: Esther Pugh RN - Reason: Other)2100 (Due) pantoprazole (ProtoNix) EC tablet 40 mg 40 mg, oral, Daily before breakfast, First dose on Sat05/20/23 at 0700, Do not crush, chew, or split. 0601 (Given - Provider: Maribell Bradshaw RN) 0610 (Given - Provider: Darby Nunez RN) 0609 (Given - Provider: aDrby Nunez RN) rosuvastatin (Crestor) tablet 10 mg 10 mg, oral, Daily, First dose on 05/19/23 at 1230 0926 (Given - Provider: Esther Lexy, RN) 0932 (Given - Provider: Esther Pugh RN) 0840 (Given - Provider: Esther Pugh RN) sennosides-docusate sodium (Beatrice-Colace) 8.6-50 mg per tablet 1 tablet 1 tablet, oral, Nightly, First dose on 05/19/23 at 2100 2025 (Given - Provider: Darby Nunez RN) 2036 (Given - Provider: Darby Nunez RN) 2100 (Due) spironolactone (Aldactone) tablet 25 mg 25 mg, oral, Daily, First dose on 05/19/23 at 1230 0921 (Given - Provider: Esther Pugh RN)1122 (Held by provider - Provider: Aisha Barger APRN-CELL BIOLOGY SCIENTIST - Reason: Other) 0900 (Not Given - Provider: Esther Pugh RN - Reason: See Provider Order) 0900 (Not Given - Provider: Esther Pugh RN - Reason: See Provider Order) torsemide (Demadex) tablet 20 mg 20 mg, oral, Daily, First dose on Sat05/21/23 at 1315 0921 (Given - Provider: Esther Pugh RN)1122 (Held by provider - Provider: Aisha Barger APRN-CELL BIOLOGY SCIENTIST - Reason: Other) 0900 (Not Given - Provider: Esther Pugh RN - Reason: See Provider Order) 0900 (Not Given - Provider: Esther Pugh RN - Reason: See Provider Order) vancomycin in dextrose 5 % (Vancocin) IVPB 500 mg (COMPLETED)(Linked Group 1) 500 mg, intravenous, at 200 mL/hr, Administer over 30 Minutes, Once, On Leny 05/23/23 at 0700, For 1 dose, premix bag, Dosing of this medication varies based on severity of illness. Does this patient have sepsis or concern for sepsis (probable or documented infection plus systemic manifestations of infection)? No, Suspected Indication (Select all that apply): Surgical Prophylaxis 0610 (New Bag - Provider: Darby Nunez RN)0640 (Stopped - Provider: Darby Nunez RN) warfarin (Coumadin) tablet 1 mg 1 mg, oral, Daily, First dose (after last modification) on Leny 05/23/23 at 1800, Enteral feedings are held 1 hour pre and post dose. 1731 (Given - Provider: Esther Pugh RN) 1800 (Due) warfarin (Coumadin) tablet 4.5 mg (CANCELED) 4.5 mg, oral, Daily, First dose (after last modification) on Sat05/22/23 at 1800, Enteral feedings are held 1 hour pre and post dose. 1758 (Given - Provider: Esther Pugh RN) PRN Medication Order 05/22/2023 05/23/2023 05/24/2023 acetaminophen (Tylenol) oral liquid 650 mg(Linked Group 2) 650 mg, nasogastric tube, Every 4 hours PRN, pain mild (1-3), first line, Starting on Leny 05/23/23 at 1153, Give oral liquid per feeding tube if present. 1235 (See Alternative - Provider: Esther Pugh RN)2040 (See Alternative - Provider: Darby Nunez, RN) acetaminophen (Tylenol) suppository 650 mg(Linked Group 2) 650 mg, rectal, Every 4 hours PRN, pain mild (1-3), first line, Starting on Leny 05/23/23 at 1153, Give rectally if unable to administer by mouth or feeding tube., If ordered PRN for pain, nurse is permitted to administer this medication for higher pain scores based on patient preference? Yes 1235 (See Alternative - Provider: Esther Pugh RN)2040 (See Alternative - Provider: Darby Nunez, RN) acetaminophen (Tylenol) tablet 650 mg(Linked Group 2) 650 mg, oral, Every 4 hours PRN, pain mild (1-3), first line, Starting on Leny 05/23/23 at 1153, If ordered PRN for pain, nurse is permitted to administer this medication for higher pain scores based on patient preference? Yes 1235 (Given - Provider: Esther Pugh RN)2040 (Given - Provider: Darby Nunez, RN) bupivacaine PF (Marcaine) 0.25 % (2.5 mg/mL) injection (CANCELED) As needed, Starting on Sat05/22/23 at 1628, Intraprocedure 1628 (Given - Provider: Wiley Ramos MD) ceFAZolin (Ancef) IV in dextrose 5% (COMPLETED) Administer over 30 Minutes, Continuous PRN, Starting on Sat05/22/23 at 1616, Intraprocedure 1616 (New Bag - Provider: Parker Moser RN) dextrose 10 % in water (D10W) infusion 0.3 g/kg/hr 107 kg (321 mL/hr), intravenous, Once as needed, For blood glucose less than 70 mg/dL after 30 minutes of intervention. Discontinue once blood glucose reaches 100 mg/dL., Starting on Sat05/19/23 at 1309, For 1 dose, Discontinue once blood glucose reaches 100 mg/dL. dextrose 50 % injection 25 g 25 g, intravenous, Every 15 min PRN, For blood glucose less than or equal to 40 mg/dL, Starting on Sat05/19/23 at 1309, May repeat until blood glucose level reaches 100 mg/dL or greater. Push 2 - 3 mL/minute if patient has secure IV access. fentaNYL PF (Sublimaze) injection (CANCELED) As needed, Starting on Sat05/22/23 at 1616, Intraprocedure 161 (Given - Provider: Parker Moser RN)1625 (Given - Provider: Parker Moser RN) glucagon (Glucagen) injection 1 mg 1 mg, intramuscular, Every 15 min PRN, low blood sugar - see comments, For blood glucose less than or equal to 70 mg/dL and no IV access, Starting on Sat05/19/23 at 1309, Give until blood glucose is 100 mg/dL or greater. If patient DOES NOT HAVE secure IV access & patient is unconscious, NPO or is unable to eat or drink. ipratropium-albuteroL (Duo-Neb) 0.5-2.5 mg/3 mL nebulizer solution 3 mL 3 mL, nebulization, Every 6 hours PRN, wheezing, shortness of breath, Starting on Sat05/19/23 at 1506 midazolam (Versed) injection (CANCELED) As needed, Starting on Sat05/22/23 at 1616, Intraprocedure 161 (Given - Provider: Parker Moser RN)1625 (Given - Provider: Parker Moser RN)1644 (Given - Provider: Parker Moser, DIDI) polyethylene glycol (Glycolax, Miralax) packet 17 g 17 g, oral, Daily PRN, constipation, Starting on Sat05/19/23 at 1506 vancomycin (Vancocin) in dextrose 5% water (COMPLETED) Administer over 60 Minutes, Continuous PRN, Starting on Sat05/22/23 at 1615, Intraprocedure 1615 (New Bag - Provider: Parker Moser RN) vancomycin (Vancocin) injection (CANCELED) As needed, Starting on Sat05/22/23 at 1637, Intraprocedure 1637 (Given - Provider: Wiley Ramos MD - Comment: pocket flush) vancomycin in dextrose 5 % (Vancocin) IVPB (COMPLETED) Administer over 30 Minutes, Continuous PRN, Starting on Sat05/22/23 at 1616, Intraprocedure 1616 (New Bag - Provider: Parker Moser RN) Linked Groups Order Group 1: vancomycin in dextrose 5 % (Vancocin) IVPB 500 mg (COMPLETED)Jump to med 500 mg, intravenous, at 200 mL/hr, Administer over 30 Minutes, Once, On Leny 05/23/23 at 0700, For 1 dose
premix bag
Dosing of this medication varies based on severity of illness. Does this patient have sepsis or concern for sepsis (probable or documented infection plus systemic manifestations of infection)? No
Suspected Indication (Select all that apply): Surgical Prophylaxis Followed by cephalexin (Keflex) capsule 500 mgJump to med 500 mg, oral, Every 8 hours scheduled, First dose on Leny 05/23/23 at 1400, For 3 days
Suspected Indication (Select all that apply): Surgical Prophylaxis Group 2: acetaminophen (Tylenol) tablet 650 mgJump to med 650 mg, oral, Every 4 hours PRN, pain mild (1-3), first line, Starting on Leny 05/23/23 at 1153
If ordered PRN for pain, nurse is permitted to administer this medication for higher pain scores based on patient preference? Yes Or acetaminophen (Tylenol) oral liquid 650 mgJump to med 650 mg, nasogastric tube, Every 4 hours PRN, pain mild (1-3), first line, Starting on Leny 05/23/23 at 1153
Give oral liquid per feeding tube if present.
Or acetaminophen (Tylenol) suppository 650 mgJump to med 650 mg, rectal, Every 4 hours PRN, pain mild (1-3), first line, Starting on Leny 05/23/23 at 1153
Give rectally if unable to administer by mouth or feeding tube.
If ordered PRN for pain, nurse is permitted to administer this medication for higher pain scores based on patient preference? Yes FOR RECORDS PERTAINING TO PATIENTS WHO ARE OR HAVE BEEN ENROLLED IN A CHEMICAL DEPENDENCY/SUBSTANCEABUSE PROGRAM, SOME INFORMATION MAY BE OMITTED. This clinical summary was aggregated from multiple sources. Caution should be exercised in using it in the provision of clinical care. This summary normalizes information from multiple sources, and as a consequence, information in this document may materially change the coding, format and clinical context of patient data. In addition, data may be omitted in some cases. CLINICAL DECISIONS SHOULD BE BASED ON THE PRIMARY CLINICAL RECORDS. [facility] [employer] provides no warranty or guarantee of the accuracy or completeness of information in this document.
[2023-05-31 08:12] LABS: Bilirubin Urine NEGATIVE (NEGATIVE); Blood Urine TRACE-I (NEGATIVE); Clarity Urine CLEAR (CLEAR); Color Urine LT. YELLOW (YELLOW); Glucose Urine UA >=1000 mg/dL (NEGATIVE); Ketones Urine NEGATIVE (NEGATIVE); Leukocyte Esterase Urine NEGATIVE (NEGATIVE); Nitrite Urine NEGATIVE (NEGATIVE); Protein Urine NEGATIVE (NEG/TRACE); Urobilinogen Urine 0.2 EU/dL (0.2-1.0); pH Urine 5.5 (5.0-9.0)
[2023-05-31 08:17] LABS: Creatinine Urine Random <13.00 mg/dL (20.00-300.00); Microalbumin Urine Random <1.3 mg/dL (<=30.0)
[2023-05-31 08:19] LABS: Alanine Aminotransferase 15 U/L (16-63); Albumin Globulin Ratio 0.7; Albumin Level 3.6 g/dL (3.4-5.0); Alkaline Phosphatase 89 U/L (46-116); Aspartate Amino Transferase 23 U/L (15-37); BUN Creatinine Ratio 15.4; Bilirubin Total 0.9 mg/dL (0.2-1.0); Calcium 8.9 mg/dL (8.5-10.1); Carbon Dioxide 27.2 mmol/L (21.0-32.0); Estimated GFR (African America >60 (>=60); Estimated GFR (Non-African Ame 56 (>=60); Globulin 4.9 g/dL; Glucose 169 mg/dL (74-106); Total Protein 8.5 g/dL (6.4-8.2)
[2023-05-31 08:23] LABS: Anion Gap 12.9; Chloride 102 mmol/L (98-107); Potassium 4.1 mmol/L (3.5-5.1); Sodium 138 mmol/L (136-145)
[2023-05-31 08:35] LABS: Urine Microscopic Indicated YES
[2023-05-31 08:37] LABS: Bacteria Urine NONE SEEN #/HPF (NONE SEEN); RBC Urine 0-2 #/HPF (0-2); WBC Urine NONE SEEN #/HPF (NONE SEEN)
[2023-05-31 08:38] LABS: Mucus Urine NONE SEEN (NONE SEEN); Squamous Epithelial Cell Urine RARE #/LPF (NONE/RARE); Urine Culture Indicated NO
== END 2023-05-31 07:46 | disposition home or self-care (01) ==
LOC: LAB 07:47
PROVIDERS: PCP Nurse Practitioner; Visit Provider Nurse Practitioner
DX: E11.42 Type 2 diabetes mellitus with diabetic polyneuropathy (principal); Z79.4 Long term (current) use of insulin; N18.32 Chronic kidney disease, stage 3b; E03.9 Hypothyroidism, unspecified; R60.0 Localized edema
CPT/HCPCS: 36415; 80053; 81001; 82043; 82570

== ENCOUNTER 2023-09-05 07:32 | Outpatient (OUT) | payer MEDICARE, MEDICAID, SELFPAY ==
[2023-09-05 07:53] LABS: Basophils Absolute Auto 0.1 10^3/uL (0.0-0.1); Basophils Percent Auto 1.2 % (0.2-2.0); Eosinophils Absolute Auto 0.3 10^3/uL (0.0-0.7); Eosinophils Percent Auto 5.5 % (0.9-7.0); Hematocrit 41.7 % (42.0-54.0); Hemoglobin 12.6 g/dL (14.0-18.0); Immature Granulocytes Abs Auto 0.01 10^3/uL (0.00-0.03); Immature Granulocytes Pct Auto 0.2 % (0.0-0.5); Lymphocytes Absolute Auto 0.8 10^3/uL (1.2-3.8); Lymphocytes Percent Auto 13.3 % (20.5-60.0); Mean Corpuscular HGB Conc 30.2 g/dL (29.9-35.2); Mean Corpuscular Volume 92.7 fL (80.0-94.0); Mean Platelet Volume 11.5 fL (9.5-13.5); Monocytes Absolute Auto 0.8 10^3/uL (0.3-0.8); Monocytes Percent Auto 12.8 % (1.7-12.0); Platelet Count 156 10^3/uL (150-450); Red Cell Distribution Width 16.6 % (11.0-15.0)
[2023-09-05 08:24] LABS: Estimated Average Glucose 192 mg/dL; Glycohemoglobin A1C 8.3 % (4.5-6.2)
[2023-09-05 08:34] LABS: Alanine Aminotransferase 22 U/L (16-63); Albumin Globulin Ratio 0.7; Albumin Level 3.5 g/dL (3.4-5.0); Alkaline Phosphatase 83 U/L (46-116); Anion Gap 12.3; Aspartate Amino Transferase 19 U/L (15-37); BUN Creatinine Ratio 18.1; Bilirubin Total 0.7 mg/dL (0.2-1.0); Carbon Dioxide 28.9 mmol/L (21.0-32.0); Chloride 103 mmol/L (98-107); Chol HDL Ratio 3.3; Cholesterol 127 mg/dL (<=200); Estimated GFR (African America >60 (>=60); Estimated GFR (Non-African Ame 52 (>=60); Globulin 4.7 g/dL; Glucose 229 mg/dL (74-106); HDL Cholesterol 38 mg/dL (40-60); Potassium 4.2 mmol/L (3.5-5.1); Sodium 140 mmol/L (136-145); Thyroid Stimulating Hormone 7.144 uIU/mL (0.358-3.740); Total Protein 8.2 g/dL (6.4-8.2); Triglycerides 102 mg/dL (<=150); VLDL CHOLESTEROL 20.4 mg/dL
[2023-09-05 09:07] LABS: Prostate Specific Antigen Dx 0.26 ng/mL (<=4.00)
[2023-09-05 09:58] LABS: Free T4 1.29 ng/dL (0.76-1.46)
== END 2023-09-05 07:33 | disposition home or self-care (01) ==
LOC: LAB 07:33
PROVIDERS: PCP Nurse Practitioner; Visit Provider Nurse Practitioner
DX: I12.9 Hypertensive chronic kidney disease with stage 1 through stage 4 chronic kidney disease, or unspecified chronic kidney disease (principal); N18.31 Chronic kidney disease, stage 3a; Z12.5 Encounter for screening for malignant neoplasm of prostate; E03.9 Hypothyroidism, unspecified; E78.2 Mixed hyperlipidemia; E11.42 Type 2 diabetes mellitus with diabetic polyneuropathy; Z79.4 Long term (current) use of insulin; E55.9 Vitamin D deficiency, unspecified
CPT/HCPCS: 36415; 80053; 80061; 82306; 83036; 84153; 84439; 84443; 85025

== ENCOUNTER 2023-09-27 11:24 | Outpatient (OUT) | payer MEDICARE, MEDICAID, SELFPAY ==
[2023-09-27 12:20] LABS: Basophils Absolute Auto 0.1 10^3/uL (0.0-0.1); Basophils Percent Auto 1.7 % (0.2-2.0); Eosinophils Absolute Auto 0.3 10^3/uL (0.0-0.7); Eosinophils Percent Auto 4.9 % (0.9-7.0); Hematocrit 41.3 % (42.0-54.0); Hemoglobin 12.2 g/dL (14.0-18.0); Immature Granulocytes Abs Auto 0.02 10^3/uL (0.00-0.03); Immature Granulocytes Pct Auto 0.3 % (0.0-0.5); Lymphocytes Absolute Auto 0.8 10^3/uL (1.2-3.8); Lymphocytes Percent Auto 13.8 % (20.5-60.0); Mean Corpuscular HGB Conc 29.5 g/dL (29.9-35.2); Mean Corpuscular Hemoglobin 27.1 pg (25.9-34.0); Mean Corpuscular Volume 91.6 fL (80.0-94.0); Mean Platelet Volume 11.9 fL (9.5-13.5); Monocytes Absolute Auto 0.7 10^3/uL (0.3-0.8); Monocytes Percent Auto 11.4 % (1.7-12.0); Neutrophils Percent Auto 67.9 % (43.0-75.0); Platelet Count 164 10^3/uL (150-450); Red Blood Count 4.51 10^6/uL (4.70-6.10); Red Cell Distribution Width 16.8 % (11.0-15.0); White Blood Count 5.9 10^3/uL (4.0-11.0)
[2023-09-27 12:49] LABS: Bilirubin Urine NEGATIVE (NEGATIVE); Blood Urine TRACE-I (NEGATIVE); Clarity Urine CLEAR (CLEAR); Color Urine LT. YELLOW (YELLOW); Glucose Urine UA >=1000 mg/dL (NEGATIVE); Ketones Urine NEGATIVE (NEGATIVE); Leukocyte Esterase Urine NEGATIVE (NEGATIVE); Nitrite Urine NEGATIVE (NEGATIVE); Protein Urine NEGATIVE (NEG/TRACE); Urobilinogen Urine 0.2 EU/dL (0.2-1.0)
[2023-09-27 12:56] LABS: Urine Microscopic Indicated YES
[2023-09-27 13:03] LABS: Bacteria Urine NONE SEEN #/HPF (NONE SEEN); Cast Seen? SEEN #/LPF (NONE SEEN); Crystals Seen? None Seen #/HPF (None Seen); Hyaline Casts Urine RARE; Mucus Urine NONE SEEN (NONE SEEN); RBC Urine 0-2 #/HPF (0-2); Squamous Epithelial Cell Urine NONE SEEN #/LPF (NONE/RARE); Urine Culture Indicated NO; WBC Urine NONE SEEN #/HPF (NONE SEEN)
== END 2023-09-27 11:25 | disposition home or self-care (01) ==
LOC: LAB 11:28
PROVIDERS: PCP Nurse Practitioner; Visit Provider Nurse Practitioner
DX: D64.89 Other specified anemias (principal); R31.21 Asymptomatic microscopic hematuria
CPT/HCPCS: 36415; 81001; 82728; 83540; 85025

== ENCOUNTER 2023-11-04 17:02 | Emergency (ER) | payer MEDICARE, MEDICAID, SELFPAY ==
[2023-11-04 17:07] VITALS: PULSE 79; TEMP 36.7; O2SAT 96; BMI 35.4
--- NOTE | 2023-11-04 17:16 | ED.WOUNDLAC1 ---
HPI - Wound/Laceration General Chief Complaint: Wound/Laceration Stated Complaint: LACERATION UPPER EXTREMITY-BLOOD THINNER Time Seen by Provider: 11/04/23 17:03 Source: patient Mode of arrival: walk-in Limitations: no limitations History of Present Illness HPI narrative: Patient is a 63-year-old male who presents to the emergency department for the evaluation of a skin tear to the left arm. Unknown last tetanus. Patient states that his arm clipped the edge of the refrigerator just prior to arrival. He and his were concerned because he has an LVAD and is on blood thinners. They were worried that they would not get the bleeding to stop. No medications prior to arrival. Related Data Home Medications ?Medication ?Instructions ?Recorded ?Confirmed carvedilol 6.25 mg tablet 6.25 mg PO Q12H 05/19/23 05/19/23 cholecalciferol (vitamin D3) 50 2,000 unit PO DAILY 05/19/23 05/19/23 mcg (2,000 unit) tablet dapagliflozin propanediol 10 mg 10 mg PO DAILY 05/19/23 05/19/23 tablet (Farxiga) digoxin 125 mcg (0.125 mg) tablet 0.125 mg PO .3 times weekly 05/19/23 05/19/23 fluticasone propionate 50 2 spray intranasal DAILY 05/19/23 05/19/23 mcg/actuation nasal spray,suspension gabapentin 300 mg capsule 300 mg PO BID 05/19/23 05/19/23 insulin detemir U-100 100 unit/mL 32 unit subcut BID 05/19/23 05/19/23 (3 mL) subcutaneous pen (Levemir FlexPen) insulin glargine 100 unit/mL (3 unit subcut 05/19/23 mL) subcutaneous pen (Basaglar KwikPen U-100 Insulin) levothyroxine 100 mcg tablet 100 mcg PO DAILY 05/19/23 05/19/23 lisinopril 5 mg tablet 5 mg PO DAILY 05/19/23 05/19/23 loratadine 10 mg tablet 10 mg PO DAILY 05/19/23 05/19/23 rosuvastatin 10 mg tablet 10 mg PO DAILY 05/19/23 05/19/23 spironolactone 25 mg tablet 25 mg PO DAILY 05/19/23 05/19/23 warfarin 3 mg tablet 4.5 mg PO DAILY 05/19/23 05/19/23 Allergies Allergy/AdvReac Type Severity Reaction Status Date / Time No Known Drug Allergies Allergy Verified 11/04/23 17:07 Review of Systems ROS Constitutional Denies: fever or chills Ears, nose, mouth, and throat Denies: throat pain or nasal congestion Respiratory Denies: shortness of breath Gastrointestinal Denies: nausea or vomiting Integumentary/Breast Denies: rash Neurological Denies: headache Hematologic/Lymphatic Reports: easy bruising and easy bleeding PFSH PFS Social History Smoking status: Former smoker Exam Narrative Exam Narrative: Gen.: Awake, alert, in no distress Head: Normocephalic, atraumatic ENT: Moist mucous membranes Respiratory: No respiratory distress Extremities: Moves extremities equally, 2.5 x 1 cm skin tear noted to the left forearm dorsally. No deep laceration. Minimal active bleeding at this time. Psych: Normal mood and affect Neuro: No focal neuro deficit Skin: Warm, dry Constitutional Vital Signs, click to edit/add: Last Vital Signs Temp 98.0 F 11/04/23 17:07 Pulse 79 11/04/23 17:07 Resp 16 11/04/23 17:07 Pulse Ox 96 11/04/23 17:07 O2 Del Method Room Air 11/04/23 17:07 Course Vital Signs Vital signs: Vital Signs Temperature 98.0 F 11/04/23 17:07 Pulse Rate 79 11/04/23 17:07 Respiratory Rate 16 11/04/23 17:07 Pulse Oximetry 96 11/04/23 17:07 Oxygen Delivery Method Room Air 11/04/23 17:07 Temperature 98.0 F 11/04/23 17:07 Pulse Rate 79 11/04/23 17:07 Respiratory Rate 16 11/04/23 17:07 Pulse Oximetry 96 11/04/23 17:07 Oxygen Delivery Method Room Air 11/04/23 17:07 MDM - Wound/Laceration MDM Narrative Medical decision making narrative: Skin tear was cleansed, dressed with Gelfoam and wound dressing. Patient is neurovascularly intact. Tetanus updated in the ER. Follow-up with PCP and return to the ER if symptoms change or worsen SUPERVISED APC VISIT, PHYSICIAN ATTESTATION: Based on the medical record the care appears appropriate. ? Medical Records Attestation: I reviewed the patient's medical records. Discharge Plan Discharge Stand Alone Forms: Portal Instructions Chief Complaint: Wound/Laceration Clinical Impression: Skin tear of left upper extremity Patient Disposition: Home, Self-Care Time of Disposition Decision: 17:15 Condition: Good Prescriptions / Home Meds: No Action carvedilol 6.25 mg tablet 6.25 mg PO Q12H cholecalciferol (vitamin D3) 50 mcg (2,000 unit) tablet 2,000 unit PO DAILY Farxiga 10 mg tablet 10 mg PO DAILY fluticasone propionate 50 mcg/actuation spray,suspension 2 spray INTRANASAL DAILY digoxin 125 mcg (0.125 mg) tablet 0.125 mg PO .3 times weekly Patient Comments: sat gabapentin 300 mg capsule 300 mg PO BID Levemir FlexPen 100 unit/mL (3 mL) insulin pen 32 unit SUBCUT BID levothyroxine 100 mcg tablet 100 mcg PO DAILY insulin glargine [Basaglar KwikPen U-100 Insulin] 100 unit/mL (3 mL) insulin pen SUBCUT lisinopril 5 mg tablet 5 mg PO DAILY loratadine 10 mg tablet 10 mg PO DAILY rosuvastatin 10 mg tablet 10 mg PO DAILY spironolactone 25 mg tablet 25 mg PO DAILY warfarin 3 mg tablet 4.5 mg PO DAILY Print Language: German Instructions: Skin Tear (ED) Referrals: Joleen Herrera NP [Primary Care Provider] - 1 week
[2023-11-04] MEDS: ADACEL DIPH,PERTUSS(ACELL),TET VAC/PF 0.5 ML ADULT SYRINGE IM (17:45)
[2023-11-04] MEDS: SURGIFOAM GEL SPONGE SIZE 100 1 EACH TOPICAL (17:45)
[2023-11-04 17:56] VITALS: PULSE 72; O2SAT 99
== END 2023-11-04 17:57 | disposition home or self-care (01) ==
PROVIDERS: Emergency Provider Student in an Organized Health Care Education/Training Program; PCP Nurse Practitioner
DX: S51.812A Laceration without foreign body of left forearm, initial encounter (principal); W22.8XXA Striking against or struck by other objects, initial encounter; Z79.01 Long term (current) use of anticoagulants; Z87.891 Personal history of nicotine dependence; Z23 Encounter for immunization; Z95.811 Presence of heart assist device
CPT/HCPCS: 90471; 90715; 99284

== ENCOUNTER 2023-11-15 09:43 | Outpatient (OUT) | payer MEDICARE, MEDICAID, SELFPAY ==
[2023-11-15 10:15] LABS: Anion Gap 12.2; BUN Creatinine Ratio 17.5; Chloride 104 mmol/L (98-107); Estimated GFR (African America 56 (>=60); Estimated GFR (Non-African Ame 46 (>=60); Glucose 179 mg/dL (74-106); Potassium 4.2 mmol/L (3.5-5.1); Sodium 142 mmol/L (136-145)
[2023-11-15 10:32] LABS: Estimated Average Glucose 146 mg/dL; Glycohemoglobin A1C 6.7 % (4.5-6.2)
== END 2023-11-15 09:44 | disposition home or self-care (01) ==
LOC: LAB 09:44
PROVIDERS: PCP Nurse Practitioner; Visit Provider Nurse Practitioner
DX: N18.31 Chronic kidney disease, stage 3a (principal); E11.42 Type 2 diabetes mellitus with diabetic polyneuropathy; Z79.4 Long term (current) use of insulin
CPT/HCPCS: 36415; 80048; 83036

== ENCOUNTER 2023-12-04 08:19 | Outpatient (OUT) | payer MEDICARE, MEDICAID, SELFPAY ==
--- OUTSIDE RECORDS SUMMARY | 2023-12-04 08:35 | XMS_ITS | CCD ---
Author Organization [facility] Care Team Providers Care Joint Maker Machine Name Role Phone NENA YOUNG AM Admitting [...] Unavailable Joleen Herrera CNP Primary Care Provider [phone] JENNIFER HERRERA Primary Care Unavailable JENNIFER HERRERA Attending Unavailable JENNIFER HERRERA Admitting Unavailable DR TORI GILL V Consulting Unavailable JENNIFER HERRERA Primary Care Unavailable JERRELL KRAUS Attending Unavailable JERRELL KRAUS Admitting Unavailable KUNTE, JERRELL Consulting Unavailable AICHHOLZ, APPLICATION ARCHITECT MANAGER JOLEEN Consulting Unavailable AICHHOLZ, APPLICATION ARCHITECT MANAGER JOLEEN Primary Care Unavailable AICHHOLZ, APPLICATION ARCHITECT MANAGER JOLEEN Attending Unavailable AICHHOLZ, APPLICATION ARCHITECT MANAGER JOLEEN Admitting Unavailable AICHHOLZ, APPLICATION ARCHITECT MANAGER JOLEEN Consulting Unavailable AICHHOLZ, APPLICATION ARCHITECT MANAGER JOLEEN Primary Care Unavailable AICHHOLZ, APPLICATION ARCHITECT MANAGER JOLEEN Attending Unavailable AICHHOLZ, APPLICATION ARCHITECT MANAGER JOLEEN Admitting Unavailable AICHHOLZ, APPLICATION ARCHITECT MANAGER JOLEEN Consulting Unavailable AICHHOLZ, APPLICATION ARCHITECT MANAGER JOLEEN Primary Care Unavailable AICHHOLZ, APPLICATION ARCHITECT MANAGER JOLEEN Attending Unavailable AICHHOLZ, APPLICATION ARCHITECT MANAGER JOLEEN Admitting Unavailable MISC, DR MORELOS Consulting Unavailable AICHHOLZ, APPLICATION ARCHITECT MANAGER JOLEEN Primary Care Unavailable MISC, DOCTOR Attending Unavailable MISC, DOCTOR Admitting Unavailable AICHHOLZ, APPLICATION ARCHITECT MANAGER JOLEEN Consulting Unavailable AICHHOLZ, APPLICATION ARCHITECT MANAGER JOLEEN Primary Care Unavailable AICHHOLZ, APPLICATION ARCHITECT MANAGER JOLEEN Attending Unavailable AICHHOLZ, APPLICATION ARCHITECT MANAGER JOLEEN Admitting Unavailable AICHHOLZ, APPLICATION ARCHITECT MANAGER JOLEEN Consulting Unavailable AICHHOLZ, APPLICATION ARCHITECT MANAGER JOLEEN Primary Care Unavailable AICHHOLZ, APPLICATION ARCHITECT MANAGER JOLEEN Attending Unavailable AICHHOLZ, APPLICATION ARCHITECT MANAGER JOLEEN Admitting Unavailable BRIDGET, DR TORI Villagomez Consulting Unavailable AICHHOLZ, APPLICATION ARCHITECT MANAGER JOLEEN Primary Care Unavailable AICHHOLZ, APPLICATION ARCHITECT MANAGER JOLEEN Attending Unavailable AICHHOLZ, APPLICATION ARCHITECT MANAGER JOLEEN Admitting Unavailable AICHHOLZ, APPLICATION ARCHITECT MANAGER JOLEEN Consulting Unavailable AICHHOLZ, APPLICATION ARCHITECT MANAGER JOLEEN Consulting Unavailable AICHHOLZ, APPLICATION ARCHITECT MANAGER JOLEEN Primary Care Unavailable AICHHOLZ, APPLICATION ARCHITECT MANAGER JOLEEN Attending Unavailable AICHHOLZ, APPLICATION ARCHITECT MANAGER JOLEEN Admitting Unavailable DR ROBIN GROVE Consulting Unavailmanuel GROVE, DR ROBIN Ye Attending Unavailmanuel e PERFECTO, DR ROBIN Ye Admitting Unavailabl e AICHHOLZ, APPLICATION ARCHITECT MANAGER JOLEEN Primary Care Unavailable CHADWICK SHERMAN Consulting Unavailable Aichsilvianoz Joleen RODRIGUEZ Primary Care Provider [phone] JOLEEN HERRERA Primary Care Physician [phone] David Johnson Attending Unavailable Aichholz CHRISTINAJoleen RODRIGUEZ Primary Care Provider Alberto TOLBERT, Poly Unavailable Unavailable Jared TOLBERT, Nzaanin Unavailable Unavailable Duglas SEVILLA, Len Mayo Unavailable Charbel [facility], Aisha A Unavailable Ashanti SEVILLA, Obed Primary Care Provider [phone] Aichholz LEAD JAVASCRIPT ENGINEER, Joleen Unavailable Ashanti SEVILLA, Obed Primary Care Provider Charbel [facility], Aisha A Unavailable Lainey Guzman Unavailable Unavaila ble Aichholz, Mrs. Joleen Sri Primary Care Unavailab LEN Quinn Attending Unavailable Aichholz, Mrs. Joleen Sri Primary Care Unavailab LEN Quinn Attending Unavailable AICHHOLZ, JOLEEN Attending Unavailable AICHHOLZ, JOLEEN Attending Unavailable AICHHOLZ, JOLEEN Attending Unavailable AICHHOLZ, JOLEEN Attending Unavailable Len Guardado MD Unavailable Charbel [facility], Aisha A Unavailable Rupali Reece RN Unavailable Unavailable Aichholz APPLICATION ARCHITECT MANAGER, Joleen Sri Primary Care Provider AICHHOLZ, JOLEEN SRI Primary Care Unavailable KARAMLOU, AILYN Referring Unavailable AICHHOLZ, JOLEEN SRI Primary Care Unavailable KARAMLOU, ALIYN Attending Unavailable KUNTE, JERRELL Referring Unavailable AICHHOLZ, JOLEEN SRI Primary Care Unavailable KARAMLOU, AILYN Attending Unavailable KUNTE, JERRELL Referring Unavailable AICHHOLZ, JOLEEN SRI Primary Care Unavailable AICHHOLZ, JOLEEN SRI Primary Care Unavailable AICHHOLZ, JOLEEN SRI Primary Care Unavailable LEN GURADADO Attending Unavailable LEN GUARDADO Admitting Unavailable DRIVER, ESSEIM Referring Unavailable AICHHOLZ, JOLEEN SRI Primary Care Unavailable DRIVER, ESSEIM Referring Unavailable AICHHOLZ, JOLEEN SRI Primary Care Unavailable DRIVER, ESSEIM Referring Unavailable AICHHOLZ, JOLEEN SRI Primary Care Unavailable AISHA ENRIQUEZ Attending Unavailable AICHHOLZ, JOLEEN SRI Primary Care Unavailable DRIVER, ESSEIM Referring Unavailable AICHHOLZ, JOLEEN SRI Primary Care Unavailable DRIVER, ESSEIM Referring Unavailable AICHHOLZ, JOLEEN SRI Primary Care Unavailable VILLA ESSEIM Referring Unavailable [facility] Vela Primary Care Unavailable DRIVER, ESSEIM Referring Unavailable [facility], JOLEEN FIERRO Primary Care Unavailable JOHN SOLITARIO Attending Unavailable [facility], JOLEEN FIERRO Primary Care Unavailable NOAM EDWARDS P Referring Unavailable [facility], JOLEEN FIERRO Primary Care Unavailable AISHA ENRIQUEZ Attending Unavailable [facility], JOLEEN FIERRO Primary Care Unavailable COOPER VACA Attending Unavailable [facility], JOLEEN FIERRO Primary Care Unavailable [facility], JOLEEN SRI Primary Care Unavailable COOPER VACA Attending Unavailable [facility], JOLEEN FIERRO Primary Care Unavailable Allergies Allergy Classification Reported Allergen(s) Allergy Type Date of Onset Reaction(s) Facility (1 source) 37307,00; Translations: [37987,00] Propensity to adverse reactions (disorder) 0 [facility] Repository (1 source) ALLERGIES NOT ON FILE; Translations: [ALLERGIES NOT ON FILE] Propensity to adverse reactions (disorder) [facility] Repository Medications Current Medications Medication Drug Class(es) Dates Sig (Normalized) Sig (Original) albuterol 0.833 mg/ml / ipratropium bromide 0.167 mg/ml inhalation solution (1 source) Anticholinergic, beta2-Adrenergic Agonist Start: 05-19-2023 take 3 mL by inhalation every six hours as needed ipratropium-albu teroL (Duo-Neb) 0.5-2.5 mg/3 mL nebulizer solution 3 mL amiodarone hydrochloride 400 mg oral tablet (20 sources) Antiarrhythmic Start: 05-24-2023 End: 06-17-2024 take 1 tablet by mouth once daily amiodarone (Pacerone) 400 mg tablet Indications: HFrEF (heart failure with reduced ejection fraction) (Multi) Take 1 tablet (400 mg) by mouth once daily. 30 tablet 11 06/18/2023 06/17/2024 Active Start: 05-21-2023 take 1 tablet by [...] Platelet Aggregation Inhibitor, Nonsteroidal Anti-inflammatory Drug Start: 2 take 1 tablet by mouth once daily aspirin 81 mg EC tablet Take 1 tablet (81 mg) by mouth once daily. 10/03/2021 Active Comment on above: Take 81 [...] with meals. cephalexin 500 mg oral capsule (5 sources) Cephalosporin Antibacterial Start: 05-23-19 End: 05-26-19 cephalexin (Keflex) 500 MG capsule cholecalciferol 0.025 mg oral tablet (20 sources) Vitamin D Start: 05-19-19 take 2000 [...] once daily cholecalciferol (Vitamin D-3) 50 MCG (1999 UT) tablet Take 1 tablet (50 mcg) by mouth once daily. 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 Take before meals. 90 tablet 3 07/17/2023 07/16/2024 Active Comment on above: Take 10 mg by mouth daily with breakfast. digoxin 0.125 mg oral tablet (20 sources) Cardiac Glycoside Start: 07-10-19 digoxin (Lanoxin) 125 MCG tablet Indications: LVAD (left ventricular assist device) present (Multi) , HFrEF (heart failure with reduced ejection fraction) (Multi) TAKE ONE TABLET BY MOUTH ON SATURDAY, SATURDAY, AND SATURDAY 12 tablet 10 07/10/2023 Active Start: 05-20-2023 take 1 dose by mouth once kojo y 125 mcg, oral, 3 times weekly (Once [...] / eicosapentaenoic acid 180 mg oral capsule (20 sources) Start: take 2 capsules by mouth twice daily fish oil concentrate ([place]-3) 120-180 mg capsule Take 2 capsules (2 g) by mouth 2 times a day. 01/25/2022 Active Start: 01-25-2022 take 2 capsules by m out twice daily Fish Oil 1000 MG Oral [...] Allowed docusate sodium 50 mg / sennosides, [facility] 8.6 mg oral tablet (1 source) Start: 05-19-2023 sennosides-docusate sodium (Beatrice-Colace) 8.6-50 mg per tablet 1 tablet fluticasone propionate 0.05 mg/actuat metered dose nasal spray (20 sources) Corticosteroid Start: 05-19-2023 2 spray, Each [...] spray(s) nasa l route once daily fluticasone (FLONASE) 50 mcg/actuation nasal spray Use 2 Sprays in each nostril once daily. 0 08/29/2022 Active Comment on above: Use 2 Sprays in each nostril once daily. gabapentin 300 mg oral capsule (20 sources) Anti-epileptic Agent Start: 03-07-20 take 1 capsule by mouth in the morning gabapentin (Neurontin) 300 MG capsule Take 300 mg by mouth in the morning and 300 mg before bedtime. 0 03/07/2023 Active Comment on above: Take 300 mg by mouth twice daily. glucagon (rdna) 1 mg injection (1 source) Antihypoglycemic Agent Start: 05-19-19 glucagon (Glucagen) injection 1 mg 1000 ml glucose 100 mg/ml injection (2 sources) Start: 05-19-19 dextrose 50 % injection 25 g Start: 05-19-2023 dextrose 10 % in water (D10W) infusion insulin detemir 100 unt/ml injectable solution (20 sources) Insulin Analog Start: 05-20-2023 insulin detemi r (Levemir) injection 32 Units Start: 05-19-2023 End: 05-20-2023 insulin detemir (Levemir) injection 20 Units Start: 01-09-2023 End: 06-05-2023 Levemir FlexPen 100 unit/mL (3 mL) pen INJECT 32 UNITS UNDER SKIN TWICE A DAY 0 01/09/2023 06/05/2023 Discontinued (Med List Cleanup) Start: 12-21-2014 End: 05-19-2023 insulin detemir (Levemir U-1 00 Insulin) 100 unit/mL injection Inject 36 Units under the skin. 0 12/21/2014 05/19/2023 Discontinued (Med List Cleanup) Start: 12-21-2014 inject 36 [IU] by johnson bcutaneous injection once daily Levemir 100 UNIT/ML Subcutaneous Solution INJECT 36 units SUBCUTANEOUSLY EVERYDAY. Quantity: 0 Refills: 0 Ordered: 29-Aug-2017 Rey Maurer Start : 21-Dec-2014 Active insulin detemir (Levemir Flextouch) 100 unit/mL (3 mL) pen Inject 32 Units under the skin 2 times a day. Take as directed per insulin instructions. Active inject 30 [IU] by johnson bcutaneous [...] ml insulin glargine 100 unt/ml pen injector (3 sources) Insulin Analog Start: 05-15-19 End: 06-14-19 inject 30 [IU] by subcutaneous injection in the morning insulin glargine (Basaglar KwikPen) 100 UNIT/ML pen Indications: Type 2 diabetes mellitus with diabetic polyneuropathy, with long-term current use of insulin ([facility]) Inject 30 Units under the skin in [...] before meals. As directed by sliding scale 11/22/2016 Active Start: 11-22-2016 NovoLOG FlexPe n [...] scale Quantity: 0 Refills: 0 Ordered: 31-Aug-2016 Babmi Valladares Status: Discontinued Generic Substitution Allowed insulin [...] 27-Mar-2021 Generic Substitution Allowed Start: 03-27-2021 End: 10-06-2022 take 300 mg intravenously once daily Venofer 20 MG/ML Intravenous Solution Infuse 300 mg daily. Stop after 3 days. Quantity: 45 Refills: 0 Ordered: 04-Apr-2021 Palacios LUBNAJu Start : 27-Mar-2021 End : 25-Jan-2022 Complete [...] day Quantity: 15 Refills: 1 Ordered: 31-Aug-2016 Bamib Valladares Start: 31-Aug-2016 End: 29-Oct-2016 Status: Discontinued [...] before breakfast. lisinopril 5 mg oral tablet (20 sources) Angiotensin Converting Enzyme Inhibitor Start: 09-04-19 24 take 1 tablet by mouth once daily lisinopril 5 mg tablet Indications: LVAD (left ventricular assist device) present (Multi) , Hypertension, unspecified type , HFrEF (heart failure with reduced ejection fraction) (Multi) TAKE ONE TABLET BY MOUTH ONCE DAILY 30 tablet 09/04/2023 Active Start: 01-25-2022 take 1 tablet by ar th in the morning lisinopril 5 MG tablet Take 5 mg by mouth in the morning. 0 03/07/2023 Active loratadine 10 mg oral tablet (20 sources) Start: 08-29-2022 End: 06-08-2023 take 1 tablet by mouth once daily loratadine (CLARITIN) 10 mg tablet Take 10 mg by mouth once daily. 0 08/29/2022 Active Comment on above: Take 10 mg by mouth once daily. magnesium oxide 400 mg oral tablet (1 source) Start: 05-21-2023 magnesium oxide (Mag-Ox) tablet 800 mg melatonin 1 mg oral tablet (1 source) Start: 12-28-2021 take 1 tablet by mouth once at bedtime as needed melatonin 1 mg oral tablet ; 1 tab(s) orally once (at bedtime), As needed, Insomnia Quantity: 0 Refills: 0 Ordered: 28-Dec-2021 Ju Palacios Start: 28-Dec-2021 Generic Substitution Allowed Multiple Vitamins with Minerals oral tablet (2 sources) Start: 08-29-2016 take 1 tablet by mouth once daily Multiple Vitamins with Minerals oral tablet ; 1 tab(s) orally once a day Quantity: 30 Refills: 2 Ordered: 29-Aug-2016 Ju Cisse Start: 29-Aug-2016 Status: Discontinued Generic Substitution Allowed mupirocin 0.02 mg/mg topical ointment (16 sources) RNA Synthetase Inhibitor Antibacterial Start: 11-29-2022 End: 06-26-2023 mupirocin (Bactroban) 2 % ointment Indications: Cardiac arrhythmia, unspecified cardiac arrhythmia type Apply 1 application topically in the morning and 1 application in the evening and 1 application before bedtime. 22 g 2 05/27/2023 06/26/2023 Active Comment on above: Apply to affected ar ea. pantoprazole 40 mg delayed release oral tablet (20 sources) Proton Pump Inhibitor Start: 05-20-2023 End: 06-17-2024 take 1 tablet by mouth once daily before mealtime pantoprazole (ProtoNix) 40 mg EC tablet Indications: HFrEF (heart failure with reduced ejection fraction) (Multi) Take 1 tablet (40 mg) by mouth once daily in the morning. Take before meals. Do not crush, chew, or split. 30 tablet 11 06/18/2023 06/17/2024 Active Start: 03-27-2021 take 1 tablet by ar th once daily pantoprazole 40 mg oral delayed release tablet ; 1 tab(s) orally once a day Quantity: 0 Refills: 0 Ordered: 28-Dec-2021 Ju Palacios Start: 28-Dec-2021 Generic Substitution Allowed polyethylene glycol [id number] [id number] mg powder for oral solution (1 source) [...] sources) HMG-CoA Reductase Inhibitor Start: 03-07-2023 take 1 tablet by mouth in the morning rosuvastatin (Crestor) 10 MG tablet Take 10 mg by mouth in the [...] oral tablet (20 sources) Loop Diuretic Start: 08-21-2023 torsemide (Demadex) 20 mg tablet Indications: LVAD (left ventricular assist device) present (Multi) Take 1 tablet (20 mg) by mouth see administration instructions. Take one Saturday, Saturday, and Saturday 30 tablet 11 08/21/2023 Active Start: 07-26-2023 torsemide (Dem adex) 20 mg tablet Indications: LVAD (left ventricular assist device) present (Multi) Take 1 tablet (20 mg) by mouth see administration instructions. Take one Saturday, Saturday, and Saturday 30 tablet 07/26/2023 Active Start: 08-29-2017 torsemide (DEM ADEX) 20 mg tablet TAKE TWO TABLETS BY MOUTH ONCE DAILY IN THE MORNING -ON SAT, SAT, AND SAT TAKE 1 EXTRA TABLET 0 09/14/2021 Active Start: 08-29-2017 End: 05-24-2023 torsemide (Demadex) 20 mg ta blet Indications: LVAD (left ventricular assist device) present (CMS/HCC) Take 1 tablet (20 mg) by mouth see administration instructions. Take one Saturday, Saturday, and Saturday 30 tablet 0 05/24/2023 Active Start: 08-29-2017 take 3 tablets by mo ut once daily Torsemide 20 MG Oral Tablet TAKE 3 TABLETS DAILY Refills: 0 John Solitario MD Start : 29-Aug-2017 Active Comment on above: TAKE TWO TABLETS BY MOUTH ONCE DAILY IN THE MORNING -ON SAT, SAT, AND SAT TAKE 1 EXTRA TABLET warfarin sodium 4 mg oral tablet (20 sources) Vitamin K Antagonist Start: 08-21-2023 End: 08-19-2024 warfarin (Coumadin) 4 mg tablet Indications: HFrEF (heart failure with reduced ejection fraction) (Multi) Take as directed per After Visit Summary. 30 tablet 08/21/2023 08/19/2024 Active Start: 05-24-2023 End: 07-21-2024 warfarin (Coumadin) 4 mg tab let Indications: HFrEF (heart failure with reduced ejection fraction) (Multi) Take as directed per After Visit Summary. 30 tablet 07/22/2023 07/21/2024 Active Start: 05-23-2023 warfarin (Coum emile) tablet [...] Saturday) Quantity: 0 Refills: 0 Ordered: 12-Sep-2017 Bambi Valladares Start: 12-Sep-2017 Status: Discontinued Generic Substitution Allowed [...] 0 12/21/2014 05/19/2023 Discontinued (Med List Cleanup) warfarin (COUMAD IN) 4 mg tablet Take 4 mg by mouth as directed. 0 Active take 4.5 mg by mouth five times weekly warfarin ; 4.5 milligram(s) orally 5 times a week Quantity: 0 Refills: 0 Ordered: 13-Aug-2016 Angel Luis Richmond Status: Discontinued Generic Substitution Allowed Comment on above: Take 3 mg by mouth a s directed. Completed/Discontinued Medications Medication Drug Class(es) Dates Sig (Normalized) Sig (Original) acetaminophen 325 mg oral tablet (4 sources) Start: 10-29-2023 End: 10-29-2023 acetaminophen 650 mg tab(s) (TYLENOL) Start: 05-23-2023 take 1 tablet by ar th every four hours as needed acetaminophen (Tylenol) tablet 650 mg Start: 03-01-2020 take 2 tablets by mo uth every six hours as needed acetaminophen 325 mg oral tablet ; 2 tab(s) orally every 6 hours, As needed, Pain - Mild (1-3) Quantity: 0 Refills: 0 Ordered: 01-Mar-2020 Pamela Harrison Start: 01-Mar-2020 Generic Substitution Allowed 12 hr aspirin 25 mg / dipyridamole 200 mg extended release oral capsule (3 sources) Platelet Aggregation Inhibitor, Nonsteroidal Anti-inflammatory Drug Start: 11-05-2017 take 25-200 mg by mouth every twelve hours Aspirin-Dipyridamole ER 25-200 MG Oral Capsule Extended Release 12 Hour Take one capsule once daily Quantity: 90 Refills: 3 Rey Maurer Start : 05-Nov-2017 Active Start: 09-12-2017 take 1 capsule by mo ut every twenty-four hours aspirin-dipyridamole 25 mg-200 mg oral capsule, extended release ; 1 cap(s) orally every 24 hours Quantity: 0 Refills: 0 Ordered: 12-Sep-2017 Bambi Valladares Start: 12-Sep-2017 Status: Other Generic Substitution Allowed atorvastatin 10 mg oral tablet (3 sources) HMG-CoA Reductase Inhibitor Start: 05-08-2018 take 1 tablet by mouth at bedtime Atorvastatin Calcium 10 MG Oral Tablet TAKE 1 TABLET AT BEDTIME. Quantity: 3 Refills: 0 Cooper Vaca DO Start : 08-May-2018 Active 30 Tablet Pack Start: 08-29-2016 take 1 tablet by ar th once daily atorvastatin 40 mg oral tablet ; 1 tab(s) orally once a day Quantity: 30 Refills: 1 Ordered: 29-Aug-2016 Ju Cisse Start: 29-Aug-2016 Status: Discontinued Generic Substitution Allowed calcium chloride 1 g in dextrose 5 % in water (D5W) 50 mL IV (1 source) Start: 05-19-2023 End: 05-19-2023 calcium chloride 1 g in dextrose 5 % in water (D5W) 50 mL IV diphenhydrAMINE hydrochloride 25 mg oral capsule (1 source) Histamine-1 Receptor Antagonist Start: 10-29-2023 End: 10-29-2023 diphenhydrAMINE 25 mg capsule (BENADRYL) Start: 10-29-2023 End: 10-29-2023 diphenhydrAMINE 25 mg capsul e (BENADRYL) 1 ml enoxaparin sodium 100 mg/ml prefilled [...] 2.0-3.0. Quantity: 14 Refills: 0 Ordered: 28-Mar-2021 Kuldip LUBNAJu Start : 17-Jun-2019 Active Start: 06-17-2019 Enoxaparin Sod ium 100 MG/ML SOLN INJECT 100 mg every twelve hours as needed until INR is between 2.0-3.0. Quantity: 14 Refills: 0 Ordered: 28-Mar-2021 Suzanne CALVOJu Start : 17-Jun-2019 Active 1 ml fentaNYL 0.05 mg/ml injection (2 sources) Opioid Agonist Start: 05-19-2023 End: 05-19-2023 fentaNYL PF (Sublimaze) injection 50 mcg Start: 05-19-2023 End: 05-19-2023 fentaNYL PF (Sublimaze) inje ction - Omnicell Override Pull ferric derisomaltose 1,000 m g in NaCl 0.9% 100 mL (MONOFERRIC) (1 source) Start: 10-29-2023 End: 10-29-2023 ferric derisomaltose 1,000 m g in NaCl 0.9% 100 mL (MONOFERRIC) 50 ml magnesium sulfate 40 m g/ml [...] Onset: 4 05-19-2023 Chronic Chronic kidney disease (20 sources) Chronic kidney disease stage 3A ; [...] anemias] 03-25-2021 Chronic Deficiency and other anemia (4 sources) Iron deficiency anemia due to blood loss; Translations: [Iron deficiency anemia secondary to blood loss (chronic)] Onset: 4 10-17-2023 Chronic Deficiency and other anemia (20 sources) [...] Neoplasms of unspecified nature or uncertain behavior (13 sources) Monoclonal gammopathy of uncertain significance; Translations: [Monoclonal gammopathy] Onset: 2 Chronic Nutritional deficiencies (4 sources) Vitamin D deficiency, unspecified; Translations: [Vitamin D deficiency] Onset: 2 04-24-2023 Chronic Other aftercare (5 sources) 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; Translations: [MUD MILL TENDER (CURRENT) USE OF ANTICOAGULANTS] Onset: 8 Episodic Other aftercare (1 source) Long-term current use [...] 1 03-27-2021 Episodic Other aftercare (1 source) truck 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; Translations: [MUD MILL TENDER CURRENT USE OF INSULIN] Onset: 3 Episodic Other circulatory disease (11 sources) Presence of heart assist device; Translations: [...] Episodic Other nutritional; endocrine; and metabolic disorders (5 sources) Body mass index 30+ - obesity; Translations: [Body mass index (BMI) 33.0-33.9, adult] Onset: 4 05-27-2023 Chronic Other screening for suspected conditions (not mental disorders or infectious disease) (8 sources) Deviation of international normalized ratio from target range; Translations: [Abnormal coagulation profile] Onset: 2 03-25-2021 Episodic Other upper respiratory disease (3 sources) Allergic disposition; Translations: [Other allergic rhinitis] [...] postprocedural status] 12-28-2021 Episodic Residual codes; unclassified (3 sources) Bilateral lower limb edema; Translations: [Localized edema] Onset: 3 04-10-2023 Episodic Superficial injury; contusion (1 source) Contusion of foot; Translations: [Contusion of unspecified foot, initial encounter] Onset: 3 Episodic Thyroid disorders (20 sources) Hypothyroidism, unspecified; Translations: [Hypothyroidism] Onset: 2 [...] antithrombotic long-term use 03-25-2021 Unclassified (1 source) alf current use of aspirin 03-27-2021 Unclassified (1 [...] W/AND (SUSP) EXPOS COVID-19] Onset: 2 Unclassified (1 source) Ventricular tachycardia, unspecified (Multi); Translations: [Ventricular tachycardia, unspecified (Multi)] Onset: 4 Unclassified (2 sources) Lvad Present; Translations: [Lvad [...] [Anemia, unspecified] Onset: 08-15-2022 Episodic Mood disorders (13 sources) Mood disorders Onset: 02-14-2023 02-14-2023 Other aftercare (6 sources) Encounter for therapeutic drug level monitoring; Translations: [ENCOUNTER FOR THERAPEUTIC DRUG LEVEL MONITORING] Onset: 04-11-2018 Episodic Other aftercare (20 sources) Long-term current use of anticoagulant; Translations: [Long-term (current) use of anticoagulants] Onset: 01-18-2023 03-25-2021 Episodic Other aftercare (1 source) alf (current) use of aspirin; Translations: [MUD MILL TENDER CURRENT USE OF ASPIRIN] Onset: 04-03-2022 Episodic Other aftercare (1 source) Other extermination inspector (current) drug therapy; Translations: [Other extermination inspector (current) drug therapy] Onset: 08-15-2022 Episodic Other [...] COUGH, UNSPECIFIED; Translations: [COUGH, UNSPECIFIED] Onset: 04-01-2022 Unclassified (1 source) Ventricular tachycardia, unspecified (Multi); Translations: [Ventricular tachycardia, unspecified (Multi)] Onset: 08-02-2023 NEGATED: Highlighted row has not occurred!Residual codes; unclassified (15 sources) Disease Episodic Results Test Name Value Interpretation Reference Range Facility TRANSTHORACIC ECHO (TTE) COM PLETEon 11-25-2023 TRANSTHORACIC ECHO (TTE) COMPLETE [facility], [address] [place] [address] and TRANSTHORACIC ECHOCARDIOGRAM REPORT Patient Name: TERRY Monteiro YUVAL Reading Physician: [id number] Ruby Cornejo MD Study Date: 11/25/2023 Ordering Provider: [id number] NOAM EDWARDS MRN/PID: [id number] Fellow: Nurse: Alisha Love RN Date of /Age: 408/05/1960 / 63 years Print Graphic Designer: Leslie Allen RDCS Gender: M Additional Staff: Height: 180.34 cm Admit Date: Weight: 116.12 kg Admission Status: Outpatient BSA / BMI: 2.34 m2 / 35.70 kg/m2 Blood Pressure: / Department Location: [facility] Non Invasive Study Type: TRANSTHORACIC ECHO (TTE) COMPLETE Diagnosis/ICD: Presence of heart assist device-Z95.811 Indication: LVAD CPT Code: Echo Complete w Full Doppler-90297 Patient History: Pertinent History: Stage D HFrEF s/p HM2 2013 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 Study Detail: The following Echo studies were performed: 2D, M-Mode, Doppler and color flow. Technically challenging study due to body habitus. Definity used as a contrast agent for endocardial border definition. Total contrast used for this procedure was 2.0 mL via IV push. PHYSICIAN INTERPRETATION: Left Ventricle: Left ventricular ejection fraction is severely decreased, by visual estimate at 10-15%. There is global hypokinesis of the left ventricle with minor regional variations. The left ventricular cavity size is severely dilated. Left ventricular diastolic filling was indeterminate. There is no definite left ventricular thrombus visualized. Left Atrium: The left atrium is enlarged. Right Ventricle: The right ventricle was not well visualized. Unable to determine right ventricular systolic function. A device is visualized in the right ventricle. RV poorly seen though in echocontrast images it appears to be dilated with severely reduced systolic function. Right Atrium: The right atrium is severely dilated. There is a device visualized in the right atrium. Aortic Valve: The aortic valve was not well visualized. There is moderate aortic valve regurgitation. AV is not opening with LVAD in place. There is moderate AI. Mitral Valve: The mitral valve is normal in structure. There is mild mitral valve regurgitation. Tricuspid Valve: The tricuspid valve is structurally normal. There is trace tricuspid regurgitation. The right ventricular systolic pressure is unable to be estimated. Pulmonic Valve: The pulmonic valve is structurally normal. There is physiologic pulmonic valve regurgitation. Pericardium: There is a trivial pericardial effusion. Aorta: The aortic root is normal. Systemic Veins: The inferior vena cava appears dilated. There is IVC inspiratory collapse greater than 50%. In comparison to the previous echocardiogram(s): Compared with the prior exam from 05/20/2023 the LV cavity appears to be more dilated today, with similarly reduced LV systolic function ( severe global systolic dysfunction). The RV was not well seen today, though already had severe dysfunction and appears to be similar today. The AI appears to be a bit more today (previously mild to moderate). LEFT VENTRICULAR ASSIST DEVICE: LVAD: The patient has a(n) HeartMate II LVAD device present. Inflow Cannula: The inflow cannula is visualized in the left ventricular apex. Outflow Cannula: Visualization of the outflow cannula is technically difficult. AV Leaflet Mobility: The aortic valve leaflets do not appear to open. CONCLUSIONS: 1. Poorly visualized anatomical structures due to suboptimal image quality. 2. Left ventricular ejection fraction is severely decreased, by visual estimate at 10-15%. 3. There is global hypokinesis of the left ventricle with minor regional variations. 4. Left ventricular diastolic filling was indeterminate. 5. Left ventricular cavity size is severely dilated. 6. No left ventricular thrombus visualized. 7. Unable to determine right ventricular systolic function. 8. RV poorly seen though in echocontrast images it appears to be dilated with severely reduced systolic function. 9. The left atrium is enlarged. 10. The right atrium is severely dilated. 11. AV is not opening with LVAD in place. There is moderate AI. 12. Moderate aortic valve regurgitation. 13. Compared with the prior exam from 05/20/2023 the LV cavity appears to be more dilated today, with similarly reduced LV systolic function ( severe global systolic dysfunction). The RV was not well seen today, though already had severe dysfunction and appears to be similar today. The AI appears to be a bit more today (previously mild to moderate). QUANTITATIVE DATA SUMMARY: RA VOLUME BY A/L METHOD: Normal Ranges: RA Area A4C: 33.4 cm2 AORTA MEASUREMENTS: Normal Ranges: Ao Sinus, d: 3.50 cm (2.1-3.5cm) LV SYSTOLIC FUNCTION BY 2D PLANIMETRY (MOD): Normal Ranges: EF-Visual: 13 % L (more content not included)... [facility] CNPGreta 10-17-2023 CNPN Telephone (HEMASA) TERRY VILLALPANDO ([id number]) 1960 M Date Time Provider Department 10/17/23 MICHAEL GREER HEMASA During your visit today, we recorded the following information about you: Michael Greer RN 10/17/2023 8:53 AM Signed ----- Message from Ailyn Friend MD sent at 10/16/2023 4:46 PM EDT ----- Please let him know that he is low On Iron and will benefit from IV Iron if he is interested. Let me know Michael Greer, RN 10/17/2023 9:45 AM Signed Discussed results with patient and he would like to get IV iron. KK: please place orders. PSS: please call pt and schedule. Thanks DIDI Weaver Brittany 10/17/2023 11:26 AM Signed Call placed to patient, no answer. Unable to leave a VM as phone just rings. Will attempt at a later time. Ailyn Guillaume MD 10/17/2023 2:15 PM Signed Monoferric orders arew in Kizzy Peña 10/18/2023 1:02 PM Signed Spoke with Terry and he is scheduled for Monoferric on 10-28-23. Allergies As of Date: 10/17/2023 (No Known Allergies) Date Reviewed: 10/15/2023 Reviewed by: Ailyn Friend MD - Fully Assessed Reason for Visit: IV iron [Other] Prescriptions as of 10/18/2023 - fluticasone (FLONASE) 50 mcg/actuation nasal spray [...] mouth daily before breakfast. - warfarin (COUMADIN) 4 mg tablet Take 4 mg by mouth as directed. - DIGOXIN [...] Inject subcutaneously. Problem List As Of Date 10/17/2023 Noted Resolved Stage 3a chronic kidney disease (HCC) [N18.31] 09/12/2022 Iron deficiency anemia due to chronic blood los*10/17/2023 Encounter Status:Closed by KIZZY PEÑA on 10/18/23 Normal [facility] CBC W Auto Differential pane l (Bld)on 10-15-2023 Anisocytosis Ql (Bld) Present Normal [facility] Comment on above: Order Comment: Speci men Type: BLOOD SPECIMEN Ordering Facility: [facility] Address: [address] [place] [address] Performed By: #### S ERIMM #### [facility] CLIA [id number] [address] [place] [address] [place] Basophils (Bld) [#/Vol] 0.08 10*3/uL Normal <0.11 [facility] Comment on above: Order Comment: Speci men Type: BLOOD SPECIMEN Ordering Facility: [facility] Address: [address] [place] [address] Performed By: #### S ERIMM #### [facility] CLIA [id number] [address] [place] [address] [place] Basophils/100 WBC (Bld) 1.3 % Normal [facility] Comment on above: Order Comment: Speci men Type: BLOOD SPECIMEN Ordering Facility: [facility] Address: [address] [place] [address] Performed By: #### S ERIMM #### [facility] CLIA [id number] [address] [place] [address] [place] Differential cell count method Nom (Bld) Auto Normal [facility] Comment on above: Order Comment: Speci men Type: BLOOD SPECIMEN Ordering Facility: [facility] Address: [address] [place], [place] [address] Performed By: #### S ERIMM #### [facility] CLIA [id number] [address] [place] [address] [place] Eosinophils (Bld) [#/Vol] 0.34 10*3/uL Normal <0.46 [facility] Comment on above: Order Comment: Speci men Type: BLOOD SPECIMEN Ordering Facility: [facility] Address: [address] Performed By: #### S ERIMM #### [facility] CLIA [id number] [address] [place] [address] [place] Eosinophils/100 WBC (Bld) 5.6 % Normal [facility] Comment on above: Order Comment: Speci men Type: BLOOD SPECIMEN Ordering Facility: [facility] Address: [address] Performed By: #### S ERIMM #### [facility] CLIA [id number] [address] [place] [address] [place] Erythrocyte distribution width (RBC) [Ratio] 16.2 % High 11.5-15.0 [facility] Comment on above: Order Comment: Speci men Type: BLOOD SPECIMEN Ordering Facility: [facility] Address: [address] Performed By: #### S ERIMM #### [facility] CLIA [id number] [address] [place] [address] [place] Hematocrit (Bld) [Volume fraction] 41.5 % Normal 39.0-51.0 [facility] Comment on above: Order Comment: Speci men Type: BLOOD SPECIMEN Ordering Facility: [facility] Address: [address] Performed By: #### S ERIMM #### [facility] CLIA [id number] [address] [place] [address] [place] Hemoglobin (Bld) [Mass/Vol] 12.6 g/dL Low 13.0-17.0 [facility] Comment on above: Order Comment: Speci men Type: BLOOD SPECIMEN Ordering Facility: [facility] Address: [address] [place] [address] Performed By: #### S ERIMM #### [facility] CLIA [id number] [address] [place] [address] [place] Immature granulocytes (Bld) [#/Vol] 10*3/uL Normal <0.10 [facility] Comment on above: Order Comment: Speci men Type: BLOOD SPECIMEN Ordering Facility: [facility] Address: [address] [place], [place] [address] Performed By: #### S ERIMM #### [facility] CLIA [id number] [address] [place] Immature granulocytes/100 WBC (Bld) 0.3 % Normal [facility] Comment on above: Order Comment: Speci men Type: BLOOD SPECIMEN Ordering Facility: [facility] Address: [address] [place], [place] [address] Performed By: #### S ERIMM #### [facility] CLIA [id number] [address] [place] [address] [place] Lymphocytes (Bld) [#/Vol] 0.71 10*3/uL Low 1.00-4.00 [facility] Comment on above: Order Comment: Speci men Type: BLOOD SPECIMEN Ordering Facility: [facility] Address: [address] [place], [place] [address] Performed By: #### S ERIMM #### [facility] CLIA [id number] [address] [place] [address] [place] Lymphocytes/100 WBC (Bld) 11.6 % Normal [facility] Comment on above: Order Comment: Speci men Type: BLOOD SPECIMEN Ordering Facility: [facility] Address: [address] Performed By: #### S ERIMM #### [facility] CLIA [id number] [address] [place] [address] [place] [facility] MCH (RBC) [Entitic mass] 26.6 pg Normal 26.0-34.0 [facility] Comment on above: Order Comment: Speci men Type: BLOOD SPECIMEN Ordering Facility: [facility] Address: [address] Performed By: #### S ERIMM #### [facility] CLIA [id number] [address] [place] [address] [place] MCHC (RBC) [Mass/Vol] 30.4 g/dL Low 30.5-36.0 [facility] Comment on above: Order Comment: Speci men Type: BLOOD SPECIMEN Ordering Facility: [facility] Address: [address] Performed By: #### S ERIMM #### [facility] CLIA [id number] [address] [place] [address] [place] MCV (RBC) [Entitic vol] 87.7 fL Normal 80.0-100.0 [facility] Comment on above: Order Comment: Speci men Type: BLOOD SPECIMEN Ordering Facility: [facility] Address: [address] Performed By: #### S ERIMM #### [facility] CLIA [id number] [address] [place] [address] [place] Monocytes (Bld) [#/Vol] 0.76 10*3/uL Normal <0.87 [facility] Comment on above: Order Comment: Speci men Type: BLOOD SPECIMEN Ordering Facility: [facility] Address: [address] Performed By: #### S ERIMM #### [facility] CLIA [id number] [address] [place] [address] [place] Monocytes/100 WBC (Bld) 12.4 % Normal [facility] Comment on above: Order Comment: Speci men Type: BLOOD SPECIMEN Ordering Facility: [facility] Address: [address] [place] [address] Performed By: #### S ERIMM #### [facility] CLIA [id number] [address] [place] [address] [place] Neutrophils (Bld) [#/Vol] 4.20 10*3/uL Normal 1.45-7.50 [facility] Comment on above: Order Comment: Speci men Type: BLOOD SPECIMEN Ordering Facility: [facility] Address: [address] [place] [address] Performed By: #### S ERIMM #### [facility] CLIA [id number] [address] [place] [address] [place] Neutrophils/100 WBC (Bld) 68.8 % Normal [facility] Comment on above: Order Comment: Speci men Type: BLOOD SPECIMEN Ordering Facility: [facility] Address: [address] [place], [place] [address] Performed By: #### S ERIMM #### [facility] CLIA [id number] [address] [place] [address] [place] Nucleated RBC (Bld) [#/Vol] 10*3/uL Normal <0.01 [facility] Comment on above: Order Comment: Speci men Type: BLOOD SPECIMEN Ordering Facility: [facility] Address: [address] [place], [place] [address] Performed By: #### S ERIMM #### [facility] CLIA [id number] [address] [place] [address] [place] Nucleated RBC/100 WBC (Bld) [Ratio] 0.0 /100 WBC Normal [facility] Comment on above: Order Comment: Speci men Type: BLOOD SPECIMEN Ordering Facility: [facility] Address: [address] Performed By: #### S ERIMM #### [facility] CLIA [id number] [address] [place] [address] [place] Ovalocytes LM Ql (Bld) Few Normal [facility] Comment on above: Order Comment: Speci men Type: BLOOD SPECIMEN Ordering Facility: [facility] Address: [address] Performed By: #### S ERIMM #### [facility] CLIA [id number] [address] [place] [address] [place] Platelet mean volume (Bld) [Entitic vol] 11.6 fL Normal 9.0-12.7 [facility] Comment on above: Order Comment: Speci men Type: BLOOD SPECIMEN Ordering Facility: [facility] Address: [address] Performed By: #### S ERIMM #### [facility] CLIA [id number] [address] [place] [address] [place] Platelets (Bld) [#/Vol] 187 10*3/uL Normal 150-400 [facility] Comment on above: Order Comment: Speci men Type: BLOOD SPECIMEN Ordering Facility: [facility] Address: [address] [place], [place] [address] Result Comment: Resu lts checked and verified.No clot detected. Performed By: #### S ERIMM #### [facility] CLIA [id number] [address] [place] [address] [place] Platelets Estimate (Bld) [#/Vol] Adequate Normal [facility] Comment on above: Order Comment: Speci men Type: BLOOD SPECIMEN Ordering Facility: [facility] Address: [address] Performed By: #### S ERIMM #### [facility] CLIA [id number] [address] [place] [address] [place] Polychromasia LM Ql (Bld) Slight Normal [facility] Comment on above: Order Comment: Speci men Type: BLOOD SPECIMEN Ordering Facility: [facility] Address: [address] [place] [address] Performed By: #### S ERIMM #### [facility] CLIA [id number] [address] [place] [address] [place] RBC (Bld) [#/Vol] 4.73 10*6/uL Normal 4.20-6.00 [facility] Comment on above: Order Comment: Speci men Type: BLOOD SPECIMEN Ordering Facility: [facility] Address: [address] [place] [address] Performed By: #### S ERIMM #### [facility] CLIA [id number] [address] [place] [address] [place] RBC FRAGMENTS Few Abnormal None Seen [facility] Comment on above: Order Comment: Speci men Type: BLOOD SPECIMEN Ordering Facility: [facility] Address: [address] [place] [address] Performed By: #### S ERIMM #### [facility] CLIA [id number] [address] [place] [address] [place] RED CELL MORPH Reviewed: see result s of individual morphologies Normal [facility] Comment on above: Order Comment: Speci men Type: BLOOD SPECIMEN Ordering Facility: [facility] Address: [address] [place] [address] Performed By: #### S ERIMM #### [facility] CLIA [id number] [address] [place] [address] [place] WBC (Bld) [#/Vol] 6.11 10*3/uL Normal 3.70-11.00 [facility] Comment on above: Order Comment: Speci men Type: BLOOD SPECIMEN Ordering Facility: [facility] Address: [address] [place] [address] Performed By: #### S [facility] #### [facility] CLIA [id number] [address] [facility] [address] [place] CNOVSPon 10-15-2023 CNOVSP Visit (SP) Office (HEMASA) TERRY VILLALPANDO ([id number]) 1960 M Date Time Provider Department 10/15/23 12:15 PM AILYN FRIEND During your visit today, we recorded the following information about you: Temperature Respiration Weight 97.6 degrees 16/minute 115.2 kg Ailyn Friend MD 10/15/2023 12:48 PM Signed PATIENT NAME: Terry Villalpando CLINIC NO.: [id number] ATTENDING PHYSICIAN: Ailyn Friend MD DATE OF SERVICE: October 15, 2023 Some of the elements of this note have been copied from my previous progress note dated 01/11/2023. All the information has been reviewed carefully. Dear Joleen Herrera CNP, here is an update on a follow up visit on male Terry Villalpando at the clinic October 15, 2023 Diagnosis: SMM and thrombocytopenia Treatment History: March 2021, admitted to [facility] for blood loss anemia presumed to be [...] g/dL, KL ratio 11 Established care with pr 01/10/2022 HPI: Terry Villalpando is a 63 year old year old male here for follow up. He states that his pacemaker failed in April and he had to be hospitalized and a new pacemaker was placed. Otherwise the he is doing well. Denies any worsening neuropathy. No recent infections. PAST MEDICAL HISTORY Diagnosis Date Abnormal CBC [...] quittin.4 Passive exposure: Past Smokeless tobacco: Never Vaping [...] No weakness. PHYSICAL EXAMINATION: BP [unable to obtain BP[ Temp (Src) 97.6 (Temporal) Resp 16 Wt 253 lb 15.5 oz (115.2kg) SpO2 94% Wt 115.4 kg (254 lb 6.4 oz) [...] and tongue normal. Back: No pain to percussio (more content not included)... Normal [facility] Comprehensive metabolic 2000 panelOrdered By: Angeli Molina on 10-15-2023 Albumin [Mass/Vol] 4.7 g/dL 3.9 - 4.9 g/dL [facility] ALP [Catalytic activity/Vol] 96 U/L 38 - 113 U/L [facility] ALT [Catalytic activity/Vol] 18 U/L 10 - 54 U/L [facility] Anion gap [Moles/Vol] 9 mmol/L 8 - 15 mmol/L [facility] AST [Catalytic activity/Vol] 22 U/L 14 - 40 U/L [facility] Bilirubin [Mass/Vol] 0.6 mg/dL 0.2 - 1 .3 mg/dL [facility] Calcium [Mass/Vol] 10.3 mg/dL High 8.5 - 10. 2 mg/dL [facility] Chloride [Moles/Vol] 101 mmol/L 98 - 10 7 mmol/L [facility] CO2 [Moles/Vol] 29 mmol/L 22 - 30 mmol/L [facility] Creatinine [Mass/Vol] 1.70 mg/dL High 0.73 - 1.22 mg/dL [facility] GFR/1.73 sq M.predicted among non-blacks MDRD (S/P/Bld) [Vol rate/Area] 45 mL/min/{1.73_m2} Low - PINF [facility] Comment on above: Estimated Glomerular Filtration Rate (eGFR) is calculated using the 2020 CKD-EPI creatinine equation. This equation utilizes serum creatinine, sex, and age as parameters. The creatinine assay has traceable calibration to isotope dilution-mass spectrometry. Refer to KDIGO guidelines for clinical interpretation. In patients with unstable renal function, e.g. those with acute kidney injury, the eGFR may not accurately reflect actual GFR. Glucose [Mass/Vol] 271 mg/dL High 74 - 99 mg/dL [facility] Comment on above: The [place] Diabete s Association (ADA) provides guidance for cutoff values [...] Standards of Medical Care in Diabetes 2016, [place] Diabetes Association. Diabetes Care. 2016.39(Suppl 1). Interpretation and review of laboratory results Abnormal [facility] Potassium [Moles/Vol] 4.7 mmol/L 3.7 - 5.1 mmol/L [facility] Protein [Mass/Vol] 9.4 g/dL High 6.3 - 8.0 g/dL [facility] Sodium [Moles/Vol] 139 mmol/L 136 - 144 mmol/L [facility] Urea nitrogen [Mass/Vol] 29 mg/dL High 9 - 24 mg/dL [facility] Comprehensive metabolic 2000 panelon 10-15-2023 Albumin [Mass/Vol] 4.7 g/dL Normal 3.9-4.9 [facility] Comment on above: Order Comment: Speci men Type: BLOOD SPECIMEN Ordering Facility: [facility] Address: [address] Performed By: #### S ERIMM #### [facility] CLIA [id number] [address] [place] [address] [place] ALP [Catalytic activity/Vol] 96 U/L Normal 38-113 [facility] Comment on above: Order Comment: Speci men Type: BLOOD SPECIMEN Ordering Facility: [facility] Address: [address] Performed By: #### S ERIMM #### [facility] CLIA [id number] [address] [place] [address] [place] ALT [Catalytic activity/Vol] 18 U/L Normal 10-54 [facility] Comment on above: Order Comment: Speci men Type: BLOOD SPECIMEN Ordering Facility: [facility] Address: [address] [place], [place] [address] Performed By: #### S ERIMM #### [facility] CLIA [id number] [address] [place] [address] [place] Anion gap [Moles/Vol] 9 mmol/L Normal 8-15 [facility] Comment on above: Order Comment: Speci men Type: BLOOD SPECIMEN Ordering Facility: [facility] Address: [address] Performed By: #### S ERIMM #### [facility] CLIA [id number] [address] [place] [address] [place] AST [Catalytic activity/Vol] 22 U/L Normal 14-40 [facility] Comment on above: Order Comment: Speci men Type: BLOOD SPECIMEN Ordering Facility: [facility] Address: [address] Performed By: #### S ERIMM #### [facility] CLIA [id number] [address] [place] [address] [place] Bilirubin [Mass/Vol] 0.6 mg/dL Normal 0.2-1.3 [facility] Comment on above: Order Comment: Speci men Type: BLOOD SPECIMEN Ordering Facility: [facility] Address: [address] Performed By: #### S ERIMM #### [facility] CLIA [id number] [address] [place] [address] [place] Calcium [Mass/Vol] 10.3 mg/dL High 8.5-10.2 [facility] Comment on above: Order Comment: Speci men Type: BLOOD SPECIMEN Ordering Facility: [facility] Address: [address] Performed By: #### S ERIMM #### [facility] CLIA [id number] [address] [place] [address] [place] Chloride [Moles/Vol] 101 mmol/L Normal 98-107 [facility] Comment on above: Order Comment: Speci men Type: BLOOD SPECIMEN Ordering Facility: [facility] Address: [address] [place], [place] [address] Performed By: #### S ERIMM #### [facility] CLIA [id number] [address] [place] [address] [place] CO2 [Moles/Vol] 29 mmol/L Normal 22-30 [facility] Comment on above: Order Comment: Speci men Type: BLOOD SPECIMEN Ordering Facility: [facility] Address: [address] Performed By: #### S ERIMM #### [facility] CLIA [id number] [address] [place] [address] [place] Creatinine [Mass/Vol] 1.70 mg/dL High 0.73-1.22 [facility] Comment on above: Order Comment: Speci men Type: BLOOD SPECIMEN Ordering Facility: [facility] Address: [address] Performed By: #### S MARTHAM #### [facility] CLIA [id number] [facility] [place] Creatinine and Glomerular filtration rate.predicted panel (S/P/Bld) 45 mL/min/1.73m??? Low >=60 [facility] Comment on above: Order Comment: Rayshawn damico Type: BLOOD SPECIMEN Ordering Facility: [facility] Address: [address] [place] [address] Result Comment: Erica mated Glomerular Filtration Rate [...] accurately reflect actual GFR. Performed By: #### S MARTHAM #### [facility] CLIA [id number] [address] [place] [address] [place] Glucose [Mass/Vol] 271 mg/dL High 74-99 [facility] Comment on above: Order Comment: Rayshawn damico Type: BLOOD SPECIMEN Ordering Facility: [facility] Address: [address] [place] [address] Result Comment: The [place] Diabetes Association (ADA) provides guidance for cutoff [...] Standards of Medical Care in Diabetes 2016, [place] [employer] Association. Diabetes Care. 2016.39(Suppl 1). Performed By: #### S MARTHAM #### [facility] CLIA [id number] [address] [place] [address] [place] Potassium [Moles/Vol] 4.7 mmol/L Normal 3.7-5.1 [facility] Comment on above: Order Comment: Speci men Type: BLOOD SPECIMEN Ordering Facility: [facility] Address: [address] [place] [address] Performed By: #### S ERIMM #### [facility] CLIA [id number] [facility] [place] [address] [place] Protein [Mass/Vol] 9.4 g/dL High 6.3-8.0 [facility] Comment on above: Order Comment: Speci men Type: BLOOD SPECIMEN Ordering Facility: [facility] Address: [address] [place] [address] Performed By: #### S ERIMM #### [facility] CLIA [id number] [address] [place] [address] [place] Sodium [Moles/Vol] 139 mmol/L Normal 136-144 [facility] Comment on above: Order Comment: Speci men Type: BLOOD SPECIMEN Ordering Facility: [facility] Address: [address] [place] [address] Performed By: #### S ERIMM #### [facility] CLIA [id number] [address] [place] [address] [place] Urea nitrogen [Mass/Vol] 29 mg/dL High 9-24 [facility] Comment on above: Order Comment: Speci men Type: BLOOD SPECIMEN Ordering Facility: [facility] Address: [address] [place], [place] [address] Performed By: #### S ERIMM #### [facility] CLIA [id number] [address] [place] [address] [place] Ferritin SerPl-mCncon 2023 Ferritin [Mass/Vol] 28.8 ng/mL Low 30.3-565.7 [facility] Comment on above: Order Comment: Speci men Type: BLOOD SPECIMEN Ordering Facility: [facility] Address: [address] [id number] Performed By: #### S EREMMAM #### [facility] CLIA [id number] [address] [place] [address] [place] IMMUNOFIXATION SCREEN, SERUM on 10-15-2023 INTERPRETATION (MPA) Atypical restricted bands are present in the IgA and kappa regions. Consistent with IgA kappa monoclonal gammopathy. Normal [facility] Comment on above: Order Comment: Speci men Type: BLOOD SPECIMEN Ordering Facility: [facility] Address: [address] [place] [address] Performed By: #### I FES #### [facility] CLIA [id number] [address] [place] [address] [place] MPA RESULT M protein is present. Abnormal No M p rotein is identified. [facility] Comment on above: Order Comment: Speci men Type: BLOOD SPECIMEN Ordering Facility: [facility] Address: [address] [place] [address] Performed By: #### I FES #### [facility] CLIA [id number] [address] [place] [address] [place] STAFF REVIEW (MPA) Reviewed by Ramiro Romero M.D. Normal [facility] Comment on above: Order Comment: Speci men Type: BLOOD SPECIMEN Ordering Facility: [facility] Address: [address] [place] [address] Performed By: #### I FES #### [facility] CLIA [id number] [address] [place] [address] [place] IMMUNOGLOBULINS,IGG,IGA,IGMo n 10-15-2023 IgA [Mass/Vol] 1506 mg/dL High 70-400 [facility] Comment on above: Order Comment: Speci men Type: BLOOD SPECIMEN Ordering Facility: [facility] Address: [address] [place] [address] Performed By: #### S ERIMM #### [facility] CLIA [id number] [address] [place] [address] [place] IgG [Mass/Vol] 1414 mg/dL Normal 700-1600 [facility] Comment on above: Order Comment: Speci men Type: BLOOD SPECIMEN Ordering Facility: [facility] Address: [address] [place] [address] Performed By: #### S ERIMM #### [facility] CLIA [id number] [address] [place] [address] [place] IgM [Mass/Vol] 85 mg/dL Normal 40-230 [facility] Comment on above: Order Comment: Speci men Type: BLOOD SPECIMEN Ordering Facility: [facility] Address: [address] [place] [address] Performed By: #### S ERIMM #### [facility] CLIA [id number] [address] [place] [address] [place] Iron and Iron binding capaci ty panelon 10-15-2023 Iron [Mass/Vol] 32 ug/dL Low 41-186 [facility] Comment on above: Order Comment: Speci men Type: BLOOD SPECIMEN Ordering Facility: [facility] Address: [address] Performed By: #### S ERIMM #### [facility] CLIA [id number] [address] [place] [address] [place] Iron binding capacity [Mass/Vol] 460 ug/dL High 232-386 [facility] Comment on above: Order Comment: Speci men Type: BLOOD SPECIMEN Ordering Facility: [facility] Address: [address] [place] [address] Performed By: #### S ERIMM #### [facility] CLIA [id number] [address] [place] [address] [place] Iron/TIBC [Molar ratio] 7.0 % Low 15.0-57.0 [facility] Comment on above: Order Comment: Speci men Type: BLOOD SPECIMEN Ordering Facility: [facility] Address: [address] [place] [address] Performed By: #### S MARTHAM #### [facility] CLIA [id number] [address] [place] [address] [place] KAPPA/HINOJOSA,FREE,SERon 2023 Immunoglobulin light chains.kappa.free (S) [Mass/Vol] 444.1 mg/L High 3.3-19.4 [facility] Comment on above: Order Comment: Speci men Type: BLOOD SPECIMEN Ordering Facility: [facility] Address: [address] [place] [address] Result Comment: Rare ly, increased serum free light chains levels may not be detected or accurately quantified due to prozone phenomenon or in high viscosity samples using this immunoturbidimetric assay. Correlation with other laboratory results and clinical findings is recommended. The [place] Free Light Chain was performed using the Binding Site Optilite immunoturbidimetric method. Result obtained with different assay methods or kits cannot be used interchangeably. Performed By: #### S EREMMAM #### [facility] CLIA [id number] [address] [place] [address] [place] Immunoglobulin light chains.kappa/Immunogl obulin light chains.lambda (S) [Mass ratio] 15.97 High 0.26-1.65 [facility] Comment on above: Order Comment: Speci men Type: BLOOD SPECIMEN Ordering Facility: [facility] Address: [address] [place] [address] Performed By: #### S ERIMM #### [facility] CLIA [id number] [address] [place] [address] [place] Immunoglobulin light chains.lambda.free [Mass/Vol] 27.8 mg/L High 5.7-26.3 [facility] Comment on above: Order Comment: Speci men Type: BLOOD SPECIMEN Ordering Facility: [facility] Address: [address] [place] [address] Result Comment: Rare ly, increased serum free [...] cannot be used interchangeably. Performed By: #### S ERIMM #### [facility] CLIA [id number] [address] [place] [address] [place] RETICULOCYTE COUNTon 024 Reticulocytes (Bld) [#/Vol] 0.127 10*3/uL High [facility] Retics #on 10-15-2023 Reticulocytes (Bld) [#/Vol] 0.20780 10*3/uL High 0.018-0.100 [facility] Comment on above: Order Comment: Rayshawn damico Type: BLOOD SPECIMEN Ordering Facility: [facility] Address: [address] [place] [address] Performed By: #### S ERIMM #### [facility] CLIA [id number] [address] [place] [address] [place] Reticulocytes (Bld) [#/Vol]o n 10-15-2023 Interpretation and review of laboratory results Abnormal [facility] Reticulocytes/100 RBC (Bld) 2.7 % High 0.4 - 2.0 % [facility] ic Reticulocytes/100 RBC (Bld) 2.7 % High 0.4-2.0 [facility] Comment on above: Order Comment: Rayshawn damico Type: BLOOD SPECIMEN Ordering Facility: [facility] Address: [address] [place] [address] Performed By: #### S ERIMM #### [facility] CLIA [id number] [address] [place] [address] [place] No Panel InformationOrdered By: Jayro Hdz on 08-02-2023 [facility] Work Phone: No Panel Informationon 08-01 Radiology Study observation (narrative) [facility] Work Phone: [facility] MICROALB CREAT RATIO RAN DOMon 05-31-2023 CREATININE URINE RANDOM <13.00 Low 20.00 - 300.00 mg/dL [facility] Interpretation and review of laboratory results Abnormal [facility] MICROALBUM CREATININE RATIO UR 0.0 mg/g 0.0 - 29.9 mg/g [facility] Comment on above: NO MICROALBUMINURIA 0-29 MG/G CLINICAL MICROALBUMINURIA 30-300 MG/G MACROALBUMINURIA >300 MG/G MICROALBUMIN URINE RANDOM <1.3 NINF - 30.0 mg/dL [facility] Health[facility] e CBC panel Auto (Bld)on 05-24 Erythrocyte distribution width (RBC) [Ratio] 14.6 % High 11.5 - 14.5 % [facility] Hematocrit (Bld) [Volume fraction] 44.0 % 41.0 - 52.0 % [facility] Hemoglobin (Bld) [Mass/Vol] 14.3 g/dL 13.5 - 17.5 g/dL [facility] Interpretation and review of laboratory results Abnormal [facility] MCH (RBC) [Entitic mass] 31.0 pg 26.0 - 34.0 pg [facility] MCHC (RBC) [Mass/Vol] 32.5 g/dL 32.0 - 36.0 g/dL [facility] MCV (RBC) [Entitic vol] 95 fL 80 - 100 fL [facility] Nucleated RBC/100 WBC (Bld) [Ratio] 0.0 % [facility] Platelets (Bld) [#/Vol] 120 10*3/uL Low [facility] RBC (Bld) [#/Vol] 4.61 10*6/uL [facility] WBC (Bld) [#/Vol] 6.9 10*3/uL [facility] Erythrocyte distribution width (RBC) [Ratio] 14.6 % High 11.5-14.5 [facility] Comment on above: Performed By: #### T HYDS #### AISHA Monzon ([id number]) [facility] ([facility]) [address] [place] [address] Hematocrit (Bld) [Volume fraction] 44.0 % Normal 41.0-52.0 [facility] Comment on above: Performed By: #### T HYDS #### AISHA Monzon ([id number]) [facility] ([facility]) [address] [place] [address] Hemoglobin (Bld) [Mass/Vol] 14.3 g/dL Normal 13.5-17.5 [facility] Comment on above: Performed By: #### T HYDS #### AISHA Monzon ([id number]) [facility] ([facility]) [address] [place] [address] MCH (RBC) [Entitic mass] 31.0 pg Normal 26.0-34.0 [facility] Comment on above: Performed By: #### T HYDS #### AISHA Monzon ([id number]) [facility] ([facility]) [address] [place] [address] MCHC (RBC) [Mass/Vol] 32.5 g/dL Normal 32.0-36.0 [facility] Comment on above: Performed By: #### T HYDS #### AISHA Monzon ([id number]) [facility] ([facility]) [address] [place] [address] MCV (RBC) [Entitic vol] 95 fL Normal 80-100 [facility] Comment on above: Performed By: #### T HYDS #### AISHA Monzon ([id number]) [facility] ([facility]) [address] [place] [address]698 Nucleated RBC/100 WBC (Bld) [Ratio] 0.0 /100 WBCs Normal 0.0-0.0 [facility] Comment on above: Performed By: #### T HYDS #### AISHA Monzon ([id number]) [facility] ([facility]) [id number] [place] [address] Platelets (Bld) [#/Vol] 120 x10*3/uL Low 150-450 [facility] Comment on above: Performed By: #### T HYDS #### AISHA Monzon ([id number]) [facility] ([facility]) [id number] [place] [address]9585 RBC (Bld) [#/Vol] 4.61 x10*6/uL Normal 4.50-5.90 [facility] Comment on above: Performed By: #### T HYDS #### AISHA Monzon ([id number]) [facility] ([facility]) [address] [place] [address] WBC (Bld) [#/Vol] 6.9 x10*3/uL Normal 4.4-11.3 [facility] Comment on above: Performed By: #### T HYDS #### AISHA Monzon ([id number]) [facility] ([facility]) [address] [place] [address]13 Coagulation tissue factor in ducedon 05-24-2023 PT Coag (PPP) [Time] 30.0 s High 9.8-12.8 [facility] Comment on above: Performed By: #### T HYDS #### AISHA Monzon ([id number]) [facility] ([facility]) [address] [place] [address] Glucose Test strip manual (B ld) [Mass/Vol]on 05-24-2023 Glucose [Mass/Vol] 139 mg/dL High 74 - 99 mg/dL [facility] Interpretation and review of laboratory results Abnormal [facility] Glucose [Mass/Vol] 139 mg/dL High 74-[address] [facility] Comment on above: Performed By: #### 1 0535-3 #### AISHA Monzon ([id number]) [facility] ([facility]) [address] [place] [address] Glucose [Mass/Vol] 131 mg/dL High 74 - 99 mg/dL [facility] Interpretation and review of laboratory results Abnormal [facility] Glucose [Mass/Vol] 131 mg/dL High 74-[address] [facility] Comment on above: Performed By: #### T SHERLYS #### AISHA Monzon ([id number]) [facility] ([facility]) [address] [place], [place] [address] LDH Lactate to pyruvate reac tion [Catalytic activity/Vol]on 05-24-2023 Interpretation and review of laboratory results Abnormal [facility] Lactate Dehydrogenaseon LDH Lactate to pyruvate reaction [Catalytic activity/Vol] 489 U/L High 84 - 246 U/L [facility] Lactate dehydrogenaseon LDH Lactate to pyruvate reaction [Catalytic activity/Vol] 489 U/L High 84-246 [facility] Comment on above: Performed By: #### 1 0535-3 #### AISHA Monzon ([id number]) [facility] ([facility]) [address] [place], [place] [address] Magnesiumon 05-24-2023 Magnesium [Mass/Vol] 2.57 mg/dL High 1.60 - 2.40 mg/dL [facility] Magnesium [Mass/Vol] 2.57 mg/dL High 1.60-2.40 [facility] Comment on above: Performed By: #### 1 0535-3 #### AISHA Monzon ([id number]) [facility] ([facility]) [address] [place], [place] [id number] No Panel Informationon 05-24 Interpretation and review of laboratory results Abnormal [facility] PT Coag (PPP) [Time]on 05-24 INR Coag (PPP) [Relative time] 2.6 {INR} High 0.9 - 1.1 [facility] Interpretation and review of laboratory results Abnormal [facility] INR Coag (PPP) [Relative time] 2.6 High 0.9-1.1 [facility] Comment on above: Performed By: #### T HYDS #### AISHA Monzon ([id number]) [facility] ([facility]) [address] [place] [address] Protime-INRon 05-24-2023 PT Coag (PPP) [Time] 30.0 s High [facility] Renal function 2000 panelon 05-24-2023 Albumin BCP dye [Mass/Vol] 3.7 g/dL 3.4 - 5.0 g/dL [facility] Anion gap [Moles/Vol] 13 mmol/L 10 - 2 0 mmol/L [facility] Calcium [Mass/Vol] 9.4 mg/dL 8.6 - 10. 6 mg/dL [facility] Chloride [Moles/Vol] 100 mmol/L 98 - 10 7 mmol/L [facility] CO2 [Moles/Vol] 25 mmol/L 21 - 32 mmol/L [facility] Creatinine [Mass/Vol] 1.33 mg/dL High 0.50 - 1.30 mg/dL [facility] GFR/1.73 sq M.predicted among non-blacks MDRD (S/P/Bld) [Vol rate/Area] 61 mL/min/{1.73_m2} - PINF [facility] Comment on above: Calculations of erica mated GFR are performed using the 2020 CKD-EPI Study Refit equation without the race variable for the IDMS-Traceable creatinine methods. https://jasn.asnjournals.org/content//ASN.034875 3141 Glucose [Mass/Vol] 126 mg/dL High 74 - 99 mg/dL [facility] Phosphate [Mass/Vol] 3.1 mg/dL 2.5 - 4 .9 mg/dL [facility] Comment on above: The performance jean pierre acteristics of phosphorus testing in heparinized plasma have been validated by the individual laboratory site where testing is performed. Testing on heparinized plasma is not approved by the FDA; however, such approval is not necessary. Potassium [Moles/Vol] 4.7 mmol/L 3.5 - 5.3 mmol/L [facility] Sodium [Moles/Vol] 133 mmol/L Low 136 - 145 mmol/L [facility] Urea nitrogen [Mass/Vol] 34 mg/dL High 6 - 23 mg/dL [facility] Albumin BCP dye [Mass/Vol] 3.7 g/dL Normal 3.4-5.0 [facility] Comment on above: Performed By: #### 1 0535-3 #### AISHA Monzon ([id number]) [facility] ([facility]) [address] [place] [address] Anion gap [Moles/Vol] 13 mmol/L Normal 10-20 [facility] Comment on above: Performed By: #### 1 0535-3 #### AISHA Mnozon ([id number]) [facility] ([facility]) [id number] [place] [address] Calcium [Mass/Vol] 9.4 mg/dL Normal 8.6-10.[address] [facility] Comment on above: Performed By: #### 1 0535-3 #### AISHA Monzon ([id number]) [facility] ([facility]) [id number] [place] [address] Chloride [Moles/Vol] 100 mmol/L Normal 98-107 [facility] Comment on above: Performed By: #### 1 0535-3 #### AISHA Monzon ([id number]) [facility] ([facility]) [address] [place] [address] CO2 [Moles/Vol] 25 mmol/L Normal 21-32 [facility] Comment on above: Performed By: #### 1 0535-3 #### AISHA Monzon ([id number]) [facility] ([facility]) [address] [place] [address] Creatinine [Mass/Vol] 1.33 mg/dL High 0.50-1.30 [facility] Comment on above: Performed By: #### 1 0535-3 #### AISHA Monzon ([id number]) [facility] ([facility]) [address] [place] [address] Glomerular filtration rate/1.73 sq M.predicted 61 mL/min/1.73m*2 Normal >60 [facility] Comment on above: Result Comment: Calc ulations of estimated GFR are performed using the 2020 CKD-EPI Study Refit equation without the race variable for the IDMS-Traceable creatinine methods. https://jasn.asnjournals.org/content/early//ASN.499433 9250 Performed By: #### 1 0535-3 #### AISHA Monzon ([id number]) [facility] ([facility]) [id number] [place] [address]68 Glucose [Mass/Vol] 126 mg/dL High 74-[address] [facility] Comment on above: Performed By: #### 1 0535-3 #### AISHA Monzon ([id number]) [facility] ([facility]) [address] [place] [address] Phosphate [Mass/Vol] 3.1 mg/dL Normal 2.5-4.9 [facility] Comment on above: Result Comment: The performance characteristics of phosphorus testing in heparinized plasma have been validated by the individual laboratory site where testing is performed. Testing on heparinized plasma is not approved by the FDA; however, such approval is not necessary. Performed By: #### 1 0535-3 #### AISHA Monzon ([id number]) [facility] ([facility]) [address] [place] [address] Potassium [Moles/Vol] 4.7 mmol/L Normal 3.5-5.3 [facility] Comment on above: Performed By: #### 1 0535-3 #### AISHA Monzon ([id number]) [facility] ([facility]) [address] [place] [address] Sodium [Moles/Vol] 133 mmol/L Low 136-[address] [facility] Comment on above: Performed By: #### 1 0535-3 #### AISHA Monzon ([id number]) [facility] ([facility]) [address] [place] [address] Urea nitrogen [Mass/Vol] 34 mg/dL High 6-23 [facility] Comment on above: Performed By: #### 1 0535-3 #### AISHA Monzon ([id number]) [facility] ([facility]) [address] [place], [place] [id number] CBC panel Auto (Bld)on 05-23 Erythrocyte distribution width (RBC) [Ratio] 14.8 % High 11.5 - 14.5 % [facility] Hematocrit (Bld) [Volume fraction] 48.6 % 41.0 - 52.0 % [facility] Hemoglobin (Bld) [Mass/Vol] 15.6 g/dL 13.5 - 17.5 g/dL [facility] Interpretation and review of laboratory results Abnormal [facility] MCH (RBC) [Entitic mass] 30.8 pg 26.0 - 34.0 pg [facility] MCHC (RBC) [Mass/Vol] 32.1 g/dL 32.0 - 36.0 g/dL [facility] MCV (RBC) [Entitic vol] 96 fL 80 - 100 fL [facility] Nucleated RBC/100 WBC (Bld) [Ratio] 0.0 % [facility] Platelets (Bld) [#/Vol] 141 10*3/uL Low [facility] RBC (Bld) [#/Vol] 5.07 10*6/uL [facility] [facility] WBC (Bld) [#/Vol] 7.9 10*3/uL [facility] Erythrocyte distribution width (RBC) [Ratio] 14.8 % High 11.5-14.5 [facility] Comment on above: Performed By: #### 2 524-7 #### AISHA Monzon ([id number]) [facility] ([facility]) [address] [place] [address] 47681 Hematocrit (Bld) [Volume fraction] 48.6 % Normal 41.0-52.0 [facility] Comment on above: Performed By: #### 2 524-7 #### AISHA Monzon ([id number]) [facility] ([facility]) [address] [place] [address] Hemoglobin (Bld) [Mass/Vol] 15.6 g/dL Normal 13.5-17.5 [facility] Comment on above: Performed By: #### 2 524-7 #### AISHA Monzon ([id number]) [facility] ([facility]) [address] [place] [address] 26967 MCH (RBC) [Entitic mass] 30.8 pg Normal 26.0-34.0 [facility] Comment on above: Performed By: #### 2 524-7 #### AISHA Monzon ([id number]) [facility] ([facility]) [address] [place] [address] 26573 MCHC (RBC) [Mass/Vol] 32.1 g/dL Normal 32.0-36.0 [facility] Comment on above: Performed By: #### 2 524-7 #### AISHA Monzon ([id number]) [facility] ([facility]) [address] [place] [address] 48459 MCV (RBC) [Entitic vol] 96 fL Normal 80-100 [facility] Comment on above: Performed By: #### 2 524-7 #### AISHA Monzon ([id number]) [facility] ([facility]) [address] [place] [address] 77027 Nucleated RBC/100 WBC (Bld) [Ratio] 0.0 /100 WBCs Normal 0.0-0.0 [facility] Comment on above: Performed By: #### 2 524-7 #### AISHA Monzon ([id number]) [facility] ([facility]) [address] [place] [address] 80925 Platelets (Bld) [#/Vol] 141 x10*3/uL Low 150-450 [facility] Comment on above: Performed By: #### 2 524-7 #### AISHA Monzon ([id number]) [facility] ([facility]) [address] [place] [address] 74177 RBC (Bld) [#/Vol] 5.07 x10*6/uL Normal 4.50-5.90 [facility] Comment on above: Performed By: #### 2 524-7 #### AISHA Monzon ([id number]) [facility] ([facility]) [address] [place] [address] 08660 WBC (Bld) [#/Vol] 7.9 x10*3/uL Normal 4.4-11.3 [facility] Comment on above: Performed By: #### 2 524-7 #### AISHA Monzon ([id number]) [facility] ([facility]) [address] [place] [address] 80803 Coagulation tissue factor in ducedon 05-23-2023 PT Coag (PPP) [Time] 34.4 s High 9.8-12.8 [facility] Comment on above: Performed By: #### 2 524-7 #### AISHA Monzon ([id number]) [facility] ([facility]) [address] [place], [place] [address] Electrophysiology studyon Images from the original result were not included. Technically and surgically uncomplicated generator change. OPERATIVE REPORT Patient: Terry Villalpando Medical Record: [id number] Date of : 1960 Date of Procedure: 05/22/2023 PROCEDURE Defibrillator Generator Change Report PRE-OPERATIVE DIAGNOSIS: Defibrillator Battery Depletion POST-OPERATIVE DIAGNOSIS: same ATTENDING Matias Driver MD REPOSSESSION AGENT Wiley Ramos MD HISTORY See H&P dated [...] available during the non-critical portions. SYNGO_SECTRA_CAR DIOLAB_XPER [facility] Work Phone: Glucose Test strip manual (B ld) [Mass/Vol]on 05-23-2023 Glucose [Mass/Vol] 198 mg/dL High 74 - 99 mg/dL [facility] Interpretation and review of laboratory results Abnormal [facility] Glucose [Mass/Vol] 198 mg/dL High 74-[address] [facility] Comment on above: Performed By: #### T HYDS #### AISHA Monzon ([id number]) [facility] ([facility]) [address] [place] [address] 19340 Glucose [Mass/Vol] 174 mg/dL High 74 - 99 mg/dL [facility] Interpretation and review of laboratory results Abnormal [facility] Glucose [Mass/Vol] 174 mg/dL High 74-[address] [facility] Comment on above: Performed By: #### T HYDS #### AISHA Monzon ([id number]) [facility] ([facility]) [address] [place] [address] 48473 Glucose [Mass/Vol] 259 mg/dL High 74 - 99 mg/dL [facility] Interpretation and review of laboratory results Abnormal [facility] Glucose [Mass/Vol] 259 mg/dL High 74-[address] [facility] Comment on above: Performed By: #### T HYDS #### AISHA Monzon ([id number]) [facility] ([facility]) [address] [place] [address] 25155 Glucose [Mass/Vol] 173 mg/dL High 74 - 99 mg/dL [facility] Interpretation and review of laboratory results Abnormal [facility] Glucose [Mass/Vol] 173 mg/dL High 74-[address] [facility] Comment on above: Performed By: #### 2 524-7 #### AISHA Monzon ([id number]) [facility] ([facility]) [address] [place], [place] [address] LDH Lactate to pyruvate reac tion [Catalytic activity/Vol]on 05-23-2023 Interpretation and review of laboratory results Abnormal [facility] Lactate Dehydrogenaseon LDH Lactate to pyruvate reaction [Catalytic activity/Vol] 553 U/L High 84 - 246 U/L [facility] Lactate dehydrogenaseon LDH Lactate to pyruvate reaction [Catalytic activity/Vol] 553 U/L High 84-246 [facility] Comment on above: Performed By: #### T HYDS #### AISHA Monzon ([id number]) [facility] ([facility]) [address] [place], [place] [address] Magnesiumon 05-23-2023 Magnesium [Mass/Vol] 2.44 mg/dL High 1.60 - 2.40 mg/dL [facility] Magnesium [Mass/Vol] 2.44 mg/dL High 1.60-2.40 [facility] Comment on above: Performed By: #### T HYDS #### AISHA Monzon ([id number]) [facility] ([facility]) [address] [place], [place] [address] No Panel Informationon 05-23 Interpretation and review of laboratory results Abnormal [facility] PT Coag (PPP) [Time]on 05-23 INR Coag (PPP) [Relative time] 3.0 {INR} High 0.9 - 1.1 [facility] Interpretation and review of laboratory results Abnormal [facility] INR Coag (PPP) [Relative time] 3.0 High 0.9-1.1 [facility] Comment on above: Performed By: #### 2 524-7 #### AISHA Monzon ([id number]) [facility] ([facility]) [address] [place] [address] Protime-INRon 05-23-2023 PT Coag (PPP) [Time] 34.4 s High [facility] Renal function 2000 panelon 05-23-2023 Albumin BCP dye [Mass/Vol] 4.1 g/dL 3.4 - 5.0 g/dL [facility] Anion gap [Moles/Vol] 13 mmol/L 10 - 2 0 mmol/L [facility] Calcium [Mass/Vol] 9.6 mg/dL 8.6 - 10. 6 mg/dL [facility] Chloride [Moles/Vol] 97 mmol/L Low 98 - 10 7 mmol/L [facility] CO2 [Moles/Vol] 29 mmol/L 21 - 32 mmol/L [facility] Creatinine [Mass/Vol] 1.48 mg/dL High 0.50 - 1.30 mg/dL [facility] GFR/1.73 sq M.predicted among non-blacks MDRD (S/P/Bld) [Vol rate/Area] 53 mL/min/{1.73_m2} Low - PINF [facility] Comment on above: Calculations of erica mated GFR are performed using the 2020 CKD-EPI Study Refit equation without the race variable for the IDMS-Traceable creatinine methods. https://jasn.asnjournals.org/content//ASN.348685 4594 Glucose [Mass/Vol] 144 mg/dL High 74 - 99 mg/dL [facility] Phosphate [Mass/Vol] 3.5 mg/dL 2.5 - 4 .9 mg/dL [facility] Comment on above: The performance jean pierre acteristics of phosphorus testing in heparinized plasma have been validated by the individual laboratory site where testing is performed. Testing on heparinized plasma is not approved by the FDA; however, such approval is not necessary. Potassium [Moles/Vol] 4.9 mmol/L 3.5 - 5.3 mmol/L [facility] Sodium [Moles/Vol] 134 mmol/L Low 136 - 145 mmol/L [facility] Urea nitrogen [Mass/Vol] 31 mg/dL High 6 - 23 mg/dL [facility] Albumin BCP dye [Mass/Vol] 4.1 g/dL Normal 3.4-5.0 [facility] Comment on above: Performed By: #### T HYDS #### AISHA Monzon ([id number]) [facility] ([facility]) [address] [place] [address] 53807 Anion gap [Moles/Vol] 13 mmol/L Normal 10-20 [facility] Comment on above: Performed By: #### T HYDS #### AISHA Monzno ([id number]) [facility] ([facility]) [address] [place] [address] 94126 Calcium [Mass/Vol] 9.6 mg/dL Normal 8.6-10.[address] [facility] Comment on above: Performed By: #### T HYDS #### AISHA Monzon ([id number]) [facility] ([facility]) [address] [place] [address] 01644 Chloride [Moles/Vol] 97 mmol/L Low 98-107 [facility] Comment on above: Performed By: #### T HYDS #### AISHA Monzon ([id number]) [facility] ([facility]) [address] [place] [address] 05539 CO2 [Moles/Vol] 29 mmol/L Normal 21-32 [facility] Comment on above: Performed By: #### T HYDS #### AISHA ALEX L ([id number]) [facility] ([facility]) [address] [place] [address] 10054 Creatinine [Mass/Vol] 1.48 mg/dL High 0.50-1.30 [facility] Comment on above: Performed By: #### T HYDS #### AISHA ALEX L ([id number]) [facility] ([facility]) [address] [place] [address] 99894 Glomerular filtration rate/1.73 sq M.predicted 53 mL/min/1.73m*2 Low >60 [facility] Comment on above: Result Comment: Calc ulations of estimated GFR are performed using the 2020 CKD-EPI Study Refit equation without the race variable for the IDMS-Traceable creatinine methods. https://jasn.asnjournals.org/content//ASN.829753 3779 Performed By: #### T HYDS #### AISHA Monzon ([id number]) [facility] ([facility]) [address] [place] [address] Glucose [Mass/Vol] 144 mg/dL High 74-[address] [facility] Comment on above: Performed By: #### T HYDS #### AISHA Monzon ([id number]) [facility] ([facility]) [address] [place] [address] 58504 Phosphate [Mass/Vol] 3.5 mg/dL Normal 2.5-4.9 [facility] Comment on above: Result Comment: The performance characteristics of phosphorus testing in heparinized plasma have been validated by the individual laboratory site where testing is performed. Testing on heparinized plasma is not approved by the FDA; however, such approval is not necessary. Performed By: #### T HYDS #### AISHA Monzon ([id number]) [facility] ([facility]) [address] [place] [address] 98657 Potassium [Moles/Vol] 4.9 mmol/L Normal 3.5-5.3 [facility] Comment on above: Performed By: #### T HYDS #### AISHA Monzon ([id number]) [facility] ([facility]) [address] [place] [address] Sodium [Moles/Vol] 134 mmol/L Low 136-[address] [facility] Comment on above: Performed By: #### T HYDS #### AISHA Monzon ([id number]) [facility] ([facility]) [address] [place] [address] Urea nitrogen [Mass/Vol] 31 mg/dL High 6-23 [facility] Comment on above: Performed By: #### T HYDS #### AISHA Monzon ([id number]) [facility] ([facility]) [address] [place] [address] XR CHEST 2 VIEWSon 4 XR CHEST 2 VIEWS Interpreted By: Torsten Hernandez and Ritchie Brandon STUDY: XR CHEST 2 VIEWS; 05/23/2023 8:15 am INDICATION: Signs/Symptoms:sp generator change. COMPARISON: Chest x-ray 05/22/2023 ACCESSION NUMBER(S): [id number] ORDERING CLINICIAN: WILEY RAMOS FINDINGS: PA and [...] Sha Carter. This study was interpreted at [place], [place]. MACRO: None Signed by: Torsten Hernandez 05/23/2023 12:49 PM Dictation workstation: [id number] Normal [facility] XR Chest 2 Viewson 4 1. Cardiomegaly with satisfactory positioning of left chest wall AICD. 2. Low lung volume/bronchovascula r crowding. Similar trace left-sided pleural effusion with adjacent atelectasis. I personally reviewed the images/study and I agree with the findings as stated by resident Sha Carter. This study was interpreted at [place], [place]. MACRO: None Signed by: Torsten Hernandez 05/23/2023 12:49 PM Dictation workstation: [id number] MMODAL Interpreted By: Torsten Hernandez and Ritchie Brandon STUDY: XR CHEST 2 VIEWS; 05/23/2023 8:15 am INDICATION: Signs/Symptoms:sp generator change. COMPARISON: Chest x-ray 05/22/2023 ACCESSION NUMBER(S): [id number] ORDERING CLINICIAN: WILEY RAMOS FINDINGS: PA and [...] change. COMPARISON: Chest x-ray 05/22/2023 ACCESSION NUMBER(S): [id number] ORDERING CLINICIAN: IWLEY RAMOS FINDINGS: PA and lateral radiographs of [...] Sha Carter. This study was interpreted at [place], [place]. MACRO: None Signed by: Torsten Hernandez 05/23/2023 12:49 PM Dictation workstation: [id number] [facility] Work Phone: [facility] Work Phone: Radiology Study observation (narrative) [facility] Work Phone: XR Chest Single viewon 05-23 1. Satisfactory appearance following exchange of AICD generator. 2. Cardiomegaly again noted on chronic basis. 3. Low lung volumes with associated bronchovascular crowding. 4. Possible trace left-sided pleural effusion/atelectasis. I personally reviewed the images/study and I agree with the findings as stated by Resident Colin Ponce MD. This study was interpreted at [place], [place]. MACRO: NONE. Signed by: Torsten Hernandez 05/23/2023 9:01 AM Dictation workstation: [id number] [facility] Interpreted By: Torsten Hernandez and Dervishi Mario STUDY: XR CHEST 1 VIEW; 05/22/2023 6:22 pm INDICATION: Signs/Symptoms:sp generator change. COMPARISON: 05/19/2023 ACCESSION NUMBER(S): [id number] ORDERING CLINICIAN: WILEY RAMOS FINDINGS: AP radiograph [...] abdominal findings. BONES: No acute osseous changes. [facility] MM[facility]AL Torsten Hernandez MD - 05/23/2023 Interpreted By: Torsten Hernandez and Dervishi Mario STUDY: XR CHEST 1 VIEW; 05/22/2023 6:22 pm INDICATION: Signs/Symptoms:sp generator change. COMPARISON: 05/19/2023 ACCESSION NUMBER(S): [id number] ORDERING CLINICIAN: WILEY RAMOS FINDINGS: AP radiograph [...] Ponce MD. This study was interpreted at [place], [place]. MACRO: NONE. Signed by: Torsten Hernandez 05/23/2023 9:01 AM Dictation workstation: [id number] [facility] Work Phone: XR Chest Single viewOrdered By: Torsten Hernandez on 05-23-2023 [facility] Work Phone: Blood type and Indirect anti body screen panel (Bld)on 05-22-2023 ABO group Nom (Bld) A Unive [facility] Blood group antibody screen Ql Negative [facility] D Ag Ql (Bld) Positive [facility] ABO group Nom (Bld) A Normal [facility] Comment on above: Performed By: #### 2 524-7 #### AISHA Monzon ([id number]) [facility] ([facility]) [id number] [place], [place] [address] Blood group antibody screen Ql Negative [facility] Comment on above: Performed By: #### 2 524-7 #### AISHA Monzon ([id number]) [facility] ([facility]) [address] [place], [place] [address] D Ag Ql (Bld) Positive [facility] Comment on above: Performed By: #### 2 524-7 #### AISHA Monzon ([id number]) [facility] ([facility]) [address] [place] [address] CBC panel Auto (Bld)on 05-22 Erythrocyte distribution width (RBC) [Ratio] 14.8 % High 11.5 - 14.5 % [facility] Hematocrit (Bld) [Volume fraction] 45.5 % 41.0 - 52.0 % [facility] Hemoglobin (Bld) [Mass/Vol] 14.8 g/dL 13.5 - 17.5 g/dL [facility] Interpretation and review of laboratory results Abnormal [facility] MCH (RBC) [Entitic mass] 31.2 pg 26.0 - 34.0 pg [facility] MCHC (RBC) [Mass/Vol] 32.5 g/dL 32.0 - 36.0 g/dL [facility] MCV (RBC) [Entitic vol] 96 fL 80 - 100 fL [facility] Nucleated RBC/100 WBC (Bld) [Ratio] 0.0 % [facility] Platelets (Bld) [#/Vol] 130 10*3/uL Low [facility] RBC (Bld) [#/Vol] 4.74 10*6/uL [facility] WBC (Bld) [#/Vol] 6.0 10*3/uL [facility] Erythrocyte distribution width (RBC) [Ratio] 14.8 % High 11.5-14.5 [facility] Comment on above: Performed By: #### 2 524-7 #### AISHA Monzon ([id number]) [facility] ([facility]) [address] [place] [address] 34978 Hematocrit (Bld) [Volume fraction] 45.5 % Normal 41.0-52.0 [facility] Comment on above: Performed By: #### 2 524-7 #### AISHA Monzon ([id number]) [facility] ([facility]) [address] [place] [address] 02392 Hemoglobin (Bld) [Mass/Vol] 14.8 g/dL Normal 13.5-17.5 [facility] Comment on above: Performed By: #### 2 524-7 #### AISHA Monzon ([id number]) [facility] ([facility]) [address] [place] [address] 34169 MCH (RBC) [Entitic mass] 31.2 pg Normal 26.0-34.0 [facility] Comment on above: Performed By: #### 2 524-7 #### AISHA Monzon ([id number]) [facility] ([facility]) [address] [place] [address] 62005 MCHC (RBC) [Mass/Vol] 32.5 g/dL Normal 32.0-36.0 [facility] Comment on above: Performed By: #### 2 524-7 #### AISHA Monzon ([id number]) [facility] ([facility]) [address] [place] [address] 63681 MCV (RBC) [Entitic vol] 96 fL Normal 80-100 [facility] Comment on above: Performed By: #### 2 524-7 #### AISHA Monzon ([id number]) [facility] ([facility]) [address] [place] [address] 05208 Nucleated RBC/100 WBC (Bld) [Ratio] 0.0 /100 WBCs Normal 0.0-0.0 [facility] Comment on above: Performed By: #### 2 524-7 #### AISHA Monzon ([id number]) [facility] ([facility]) [address] [place] [address] Platelets (Bld) [#/Vol] 130 x10*3/uL Low 150-450 [facility] Comment on above: Performed By: #### 2 524-7 #### AISHA Monzon ([id number]) [facility] ([facility]) [address] [place] [address] 03928 RBC (Bld) [#/Vol] 4.74 x10*6/uL Normal 4.50-5.90 [facility] Comment on above: Performed By: #### 2 524-7 #### AISHA Monzon ([id number]) [facility] ([facility]) [address] [place] [address] 73121 WBC (Bld) [#/Vol] 6.0 x10*3/uL Normal 4.4-11.3 [facility] Comment on above: Performed By: #### 2 524-7 #### AISHA Monzon ([id number]) [facility] ([facility]) [address] [place] [address] 14988 Coagulation tissue factor in ducedon 05-22-2023 PT Coag (PPP) [Time] 27.3 s High 9.8-12.8 [facility] Comment on above: Performed By: #### 3 4529-8 #### AISHA Monzon ([id number]) [facility] ([facility]) [address] [place] [address] 94974 ECG 12-LEADon 05-22-2023 ECG 12-LEAD Ventricular Rate 81 Atrial Rate 53 QRS Duration 134 Q-T Interval 546 QTC Calculation(Bazett) 634 R Gildford -89 T G[place] 91 QRS Count 14 Q Onset 198 T Offset 471 QTC Fredericia 603 Diagnosis Ventricular-paced rhythm Left axis deviation Nonspecific intraventricular block Inferior infarct , age undetermined Anterolateral infarct , age undetermined Abnormal ECG When compared with ECG of 19-MAY-2023 17:21, Fusion complexes are now Present Premature ventricular complexes are now Present Confirmed by Thal, Matias ([id number]) on 05/28/2023 3:37:09 PM Normal [facility] Glucose Test strip manual (B ld) [Mass/Vol]on 05-22-2023 Glucose [Mass/Vol] 291 mg/dL High 74 - 99 mg/dL [facility] Interpretation and review of laboratory results Abnormal [facility] Glucose [Mass/Vol] 291 mg/dL High 74-[address] [facility] Comment on above: Performed By: #### 2 524-7 #### AISHA Monzon ([id number]) [facility] ([facility]) [address] [place] [address] 76300 Glucose [Mass/Vol] 179 mg/dL High 74 - 99 mg/dL [facility] Interpretation and review of laboratory results Abnormal [facility] Glucose [Mass/Vol] 179 mg/dL High 74-[address] [facility] Comment on above: Performed By: #### 2 524-7 #### AISHA Monzon ([id number]) [facility] ([facility]) [address] [place] [address] 84448 Glucose [Mass/Vol] 205 mg/dL High 74 - 99 mg/dL [facility] Interpretation and review of laboratory results Abnormal [facility] Glucose [Mass/Vol] 205 mg/dL High 74-[address] [facility] Comment on above: Performed By: #### 3 4529-8 #### AISHA Monzon ([id number]) [facility] ([facility]) [address] [place] [address] 11788 Lactate Dehydrogenaseon 04-24 LDH Lactate to pyruvate reaction [Catalytic activity/Vol] 531 U/L High 84 - 246 U/L [facility] Lactate dehydrogenaseon 04-24 LDH Lactate to pyruvate reaction [Catalytic activity/Vol] 531 U/L High 84-246 [facility] Comment on above: Performed By: #### 2 524-7 #### AISHA Monzon ([id number]) [facility] ([facility]) [address] [place] [address] 97991 Magnesiumon 05-22-2023 Magnesium [Mass/Vol] 2.15 mg/dL 1.60 - 2.40 mg/dL [facility] Magnesium [Mass/Vol] 2.15 mg/dL Normal 1.60-2.40 [facility] Comment on above: Performed By: #### 3 4529-8 #### AISHA Monzon ([id number]) [facility] ([facility]) [address] [place], [place] [address] Magnesium [Mass/Vol]on 05-22 Interpretation and review of laboratory results Normal [facility] No Panel Informationon 05-22 Interpretation and review of laboratory results Abnormal [facility] PT Coag (PPP) [Time]on 05-22 INR Coag (PPP) [Relative time] 2.4 {INR} High 0.9 - 1.1 [facility] Interpretation and review of laboratory results Abnormal [facility] INR Coag (PPP) [Relative time] 2.4 High 0.9-1.1 [facility] Comment on above: Performed By: #### 3 4529-8 #### AISHA Monzon ([id number]) [facility] ([facility]) [address] [place] [address] 85970 Protime-INRon 05-22-2023 PT Coag (PPP) [Time] 27.3 s High [facility] Renal function 2000 panelon 05-22-2023 Albumin BCP dye [Mass/Vol] 3.8 g/dL 3.4 - 5.0 g/dL [facility] Anion gap [Moles/Vol] 15 mmol/L 10 - 2 0 mmol/L [facility] Calcium [Mass/Vol] 9.4 mg/dL 8.6 - 10. 6 mg/dL [facility] Chloride [Moles/Vol] 103 mmol/L 98 - 10 7 mmol/L [facility] CO2 [Moles/Vol] 25 mmol/L 21 - 32 mmol/L [facility] Creatinine [Mass/Vol] 1.32 mg/dL High 0.50 - 1.30 mg/dL [facility] GFR/1.73 sq M.predicted among non-blacks MDRD (S/P/Bld) [Vol rate/Area] 61 mL/min/{1.73_m2} - PINF [facility] Comment on above: Calculations of erica mated GFR are performed using the 2020 CKD-EPI Study Refit equation without the race variable for the IDMS-Traceable creatinine methods. https://jasn.asnjournals.org/content/early//ASN.514297 6126 Glucose [Mass/Vol] 165 mg/dL High 74 - 99 mg/dL [facility] Phosphate [Mass/Vol] 3.5 mg/dL 2.5 - 4 .9 mg/dL [facility] Comment on above: The performance jean pierre acteristics of phosphorus testing in heparinized plasma have been validated by the individual laboratory site where testing is performed. Testing on heparinized plasma is not approved by the FDA; however, such approval is not necessary. Potassium [Moles/Vol] 4.5 mmol/L 3.5 - 5.3 mmol/L [facility] Sodium [Moles/Vol] 138 mmol/L 136 - 145 mmol/L [facility] Urea nitrogen [Mass/Vol] 27 mg/dL High 6 - 23 mg/dL [facility] Albumin BCP dye [Mass/Vol] 3.8 g/dL Normal 3.4-5.0 [facility] Comment on above: Performed By: #### 2 524-7 #### AISHA Monzon ([id number]) [facility] ([facility]) [address] [place] [address] 33203 Anion gap [Moles/Vol] 15 mmol/L Normal 10-20 [facility] Comment on above: Performed By: #### 2 524-7 #### AISHA Monzon ([id number]) [facility] ([facility]) [address] [place] [address] 88896 Calcium [Mass/Vol] 9.4 mg/dL Normal 8.6-10.[address] [facility] Comment on above: Performed By: #### 2 524-7 #### AISHA Monzon ([id number]) [facility] ([facility]) [address] [place] [address] Chloride [Moles/Vol] 103 mmol/L Normal 98-107 [facility] Comment on above: Performed By: #### 2 524-7 #### AISHA ALEX L ([id number]) [facility] ([facility]) [address] [place] [address] CO2 [Moles/Vol] 25 mmol/L Normal 21-32 [facility] Comment on above: Performed By: #### 2 524-7 #### AISHA Monzon ([id number]) [facility] ([facility]) [address] [place] [address] 55150 Creatinine [Mass/Vol] 1.32 mg/dL High 0.50-1.30 [facility] Comment on above: Performed By: #### 2 524-7 #### AISHA Monzon ([id number]) [facility] ([facility]) [address] [place] [address] 73210 Glomerular filtration rate/1.73 sq M.predicted 61 mL/min/1.73m*2 Normal >60 [facility] Comment on above: Result Comment: Calc ulations of estimated GFR are performed using the 2020 CKD-EPI Study Refit equation without the race variable for the IDMS-Traceable creatinine methods. https://jasn.asnjournals.org/content/early/ASN.999155 1944 Performed By: #### 2 524-7 #### AISHA Monzon ([id number]) [facility] ([facility]) [address] [place] [address] Glucose [Mass/Vol] 165 mg/dL High 74-[address] [facility] Comment on above: Performed By: #### 2 524-7 #### AISHA ALEX L ([id number]) [facility] ([facility]) [address] [place] [address] Phosphate [Mass/Vol] 3.5 mg/dL Normal 2.5-4.9 [facility] Comment on above: Result Comment: The performance characteristics of phosphorus testing in heparinized plasma have been validated by the individual laboratory site where testing is performed. Testing on heparinized plasma is not approved by the FDA; however, such approval is not necessary. Performed By: #### 2 524-7 #### AISHA Monzon ([id number]) [facility] ([facility]) [address] [place] [address]1 Potassium [Moles/Vol] 4.5 mmol/L Normal 3.5-5.3 [facility] Comment on above: Performed By: #### 2 524-7 #### AISHA Monzon ([id number]) [facility] ([facility]) [address] [place] [address] 49261 Sodium [Moles/Vol] 138 mmol/L Normal 136-[address] [facility] Comment on above: Performed By: #### 2 524-7 #### AISHA ALEX L ([id number]) [facility] ([facility]) [address] [place] [address] Urea nitrogen [Mass/Vol] 27 mg/dL High 6-23 [facility] Comment on above: Performed By: #### 2 524-7 #### AISHA JOSEER L ([id number]) [facility] ([facility]) [address] [place] [address] 83104 XR CHEST 1 VIEWon 05-22-2023 XR CHEST 1 VIEW Interpreted By: Torsten Hernandez and Dervishi Mario STUDY: XR CHEST 1 VIEW; 05/22/2023 6:22 pm INDICATION: Signs/Symptoms:sp generator change. COMPARISON: 05/19/2023 ACCESSION NUMBER(S): [id number] ORDERING CLINICIAN: WILEY RAMOS FINDINGS: AP radiograph [...] Ponce MD. This study was interpreted at [place], [place]. MACRO: NONE. Signed by: Torsten Hernandez 05/23/2023 9:01 AM Dictation workstation: [id number] Normal [facility] XR Chest Single viewon 05-22 Radiology Study observation (narrative) [facility] Work Phone: Basic metabolic 2000 panelon 05-21-2023 Anion gap [Moles/Vol] 24 mmol/L High 10 - 2 0 mmol/L [facility] Calcium [Mass/Vol] 9.7 mg/dL 8.6 - 10. 6 mg/dL [facility] Chloride [Moles/Vol] 104 mmol/L 98 - 10 7 mmol/L [facility] CO2 [Moles/Vol] 16 mmol/L Low 21 - 32 mmol/L [facility] Creatinine [Mass/Vol] 1.24 mg/dL 0.50 - 1.30 mg/dL [facility] GFR/1.73 sq M.predicted among non-blacks MDRD (S/P/Bld) [Vol rate/Area] 66 mL/min/{1.73_m2} - PINF [facility] Comment on above: Calculations of erica mated GFR are performed using the 2020 CKD-EPI Study Refit equation without the race variable for the IDMS-Traceable creatinine methods. https://jasn.asnjournals.org/content//ASN.852681 2256 Glucose [Mass/Vol] 349 mg/dL High 74 - 99 mg/dL [facility] Interpretation and review of laboratory results Abnormal [facility] Potassium [Moles/Vol] 4.8 mmol/L 3.5 - 5.3 mmol/L [facility] Sodium [Moles/Vol] 139 mmol/L 136 - 145 mmol/L [facility] Urea nitrogen [Mass/Vol] 22 mg/dL 6 - 23 mg/dL [facility] CBC panel Auto (Bld)on 05-21 Erythrocyte distribution width (RBC) [Ratio] 14.8 % High 11.5 - 14.5 % [facility] Hematocrit (Bld) [Volume fraction] 40.8 % Low 41.0 - 52.0 % [facility] Hemoglobin (Bld) [Mass/Vol] 14.0 g/dL 13.5 - 17.5 g/dL [facility] Interpretation and review of laboratory results Abnormal [facility] MCH (RBC) [Entitic mass] 31.5 pg 26.0 - 34.0 pg [facility] MCHC (RBC) [Mass/Vol] 34.3 g/dL 32.0 - 36.0 g/dL [facility] MCV (RBC) [Entitic vol] 92 fL 80 - 100 fL [facility] Nucleated RBC/100 WBC (Bld) [Ratio] 0.0 % [facility] Platelets (Bld) [#/Vol] 156 10*3/uL [facility] RBC (Bld) [#/Vol] 4.45 10*6/uL Low [facility] WBC (Bld) [#/Vol] 6.1 10*3/uL [facility] Erythrocyte distribution width (RBC) [Ratio] 14.8 % High 11.5-14.5 [facility] Comment on above: Performed By: #### 1 994-3 #### AISHA Monzon ([id number]) [facility] ([facility]) [id number] [place] [address] 68493 Hematocrit (Bld) [Volume fraction] 40.8 % Low 41.0-52.0 [facility] Comment on above: Performed By: #### 1 994-3 #### AISHA Monzon ([id number]) [facility] ([facility]) [address] [place] [address] 23067 Hemoglobin (Bld) [Mass/Vol] 14.0 g/dL Normal 13.5-17.5 [facility] Comment on above: Performed By: #### 1 994-3 #### AISHA Monzon ([id number]) [facility] ([facility]) [address] [place] [address] 57525 MCH (RBC) [Entitic mass] 31.5 pg Normal 26.0-34.0 [facility] Comment on above: Performed By: #### 1 994-3 #### AISHA Monzon ([id number]) [facility] ([facility]) [address] [place] [address] 79069 MCHC (RBC) [Mass/Vol] 34.3 g/dL Normal 32.0-36.0 [facility] Comment on above: Performed By: #### 1 994-3 #### AISHA Monzon ([id number]) [facility] ([facility]) [address] [place] [address] 74399 MCV (RBC) [Entitic vol] 92 fL Normal 80-100 [facility] Comment on above: Performed By: #### 1 994-3 #### AISHA Monzon ([id number]) [facility] ([facility]) [address] [place] [address] 09137 Nucleated RBC/100 WBC (Bld) [Ratio] 0.0 /100 WBCs Normal 0.0-0.0 [facility] Comment on above: Performed By: #### 1 994-3 #### AISHA Monzon ([id number]) [facility] ([facility]) [address] [place] [address] 46250 Platelets (Bld) [#/Vol] 156 x10*3/uL Normal 150-450 [facility] Comment on above: Performed By: #### 1 994-3 #### AISHA Monzon ([id number]) [facility] ([facility]) [address] [place] [address] 56412 RBC (Bld) [#/Vol] 4.45 x10*6/uL Low 4.50-5.90 [facility] Comment on above: Performed By: #### 1 994-3 #### AISHA Monzon ([id number]) [facility] ([facility]) [address] [place] [address] 42776 WBC (Bld) [#/Vol] 6.1 x10*3/uL Normal 4.4-11.3 [facility] Comment on above: Performed By: #### 1 994-3 #### AISHA Monzon ([id number]) [facility] ([facility]) [address] [place] [address] 79833 Coagulation tissue factor in ducedon 05-21-2023 PT Coag (PPP) [Time] 30.5 s High 9.8-12.8 [facility] Comment on above: Performed By: #### 1 994-3 #### AISHA Monzon ([id number]) [facility] ([facility]) [address] [place] [address] 30237 Glucose Test strip manual (B ld) [Mass/Vol]on 05-21-2023 Glucose [Mass/Vol] 297 mg/dL High 74 - 99 mg/dL [facility] Interpretation and review of laboratory results Abnormal [facility] Glucose [Mass/Vol] 297 mg/dL High 74-[address] [facility] Comment on above: Performed By: #### 3 4529-8 #### AISHA Monzon ([id number]) [facility] ([facility]) [address] [place] [address] 35819 Glucose [Mass/Vol] 106 mg/dL High 74 - 99 mg/dL [facility] Interpretation and review of laboratory results Abnormal [facility] Glucose [Mass/Vol] 106 mg/dL High 74-[address] [facility] Comment on above: Performed By: #### 3 4529-8 #### AISHA Monzon ([id number]) [facility] ([facility]) [id number] [place] [address] 77081 Glucose [Mass/Vol] 151 mg/dL High 74 - 99 mg/dL [facility] Interpretation and review of laboratory results Abnormal [facility] Glucose [Mass/Vol] 151 mg/dL High 74-[address] [facility] Comment on above: Performed By: #### 3 4529-8 #### AISHA Monzon ([id number]) [facility] ([facility]) [id number] [place] [address] 60065 Glucose [Mass/Vol] 129 mg/dL High 74 - 99 mg/dL [facility] Interpretation and review of laboratory results Abnormal [facility] Glucose [Mass/Vol] 129 mg/dL High 74-[address] [facility] Comment on above: Performed By: #### 3 4529-8 #### AISHA Monzon ([id number]) [facility] ([facility]) [address] [place] [address] 95207 LDH Lactate to pyruvate reac tion [Catalytic activity/Vol]on 05-21-2023 Interpretation and review of laboratory results Abnormal [facility] Interpretation and review of laboratory results Abnormal [facility] Lactate Dehydrogenaseon 04-24 LDH Lactate to pyruvate reaction [Catalytic activity/Vol] 601 U/L High 84 - 246 U/L [facility] Comment on above: MILD HEMOLYSIS DETEC SAMUEL. The result may be falsely elevated due to hemolysis or other interferents. Clinical correlation is recommended. Repeat testing may be considered. LDH Lactate to pyruvate reaction [Catalytic activity/Vol] 570 U/L High 84 - 246 U/L [facility] Comment on above: MILD HEMOLYSIS DETEC SAMUEL. The result may be falsely elevated due to hemolysis or other interferents. Clinical correlation is recommended. Repeat testing may be considered. Lactate dehydrogenaseon 04-24 LDH Lactate to pyruvate reaction [Catalytic activity/Vol] 601 U/L High 84-246 [facility] Comment on above: Result Comment: MILD HEMOLYSIS DETECTED. The result may be falsely elevated due to hemolysis or other interferents. Clinical correlation is recommended. Repeat testing may be considered. Performed By: #### 3 4529-8 #### AISHA Monzon ([id number]) [facility] ([facility]) [address] [place] [address] LDH Lactate to pyruvate reaction [Catalytic activity/Vol] 570 U/L High 84-246 [facility] Comment on above: Result Comment: MILD HEMOLYSIS DETECTED. The result may be falsely elevated due to hemolysis or other interferents. Clinical correlation is recommended. Repeat testing may be considered. Performed By: #### 1 994-3 #### AISHA Monzon ([id number]) [facility] ([facility]) [address] [place], [place] [id number] Magnesiumon 05-21-2023 Magnesium [Mass/Vol] 2.05 mg/dL 1.60 - 2.40 mg/dL [facility] Magnesium [Mass/Vol] 2.05 mg/dL Normal 1.60-2.40 [facility] Comment on above: Performed By: #### 1 994-3 #### AISHA Monzon ([id number]) [facility] ([facility]) [address] [place] [address] 95676 Magnesium [Mass/Vol]on 05-21 Interpretation and review of laboratory results Normal [facility] Natriuretic peptide B [Mass/ Vol]on 05-21-2023 Interpretation and review of laboratory results Abnormal [facility] Natriuretic peptide B (Bld) [Mass/Vol] 262 pg/mL High 0 - 99 pg/mL [facility] <100 pg/mL - Heart failure unlikely 100-299 [...] contact their local laboratory for further information. [facility] No Panel Informationon 05-21 [facility] PT Coag (PPP) [Time]on 05-21 INR Coag (PPP) [Relative time] 2.7 {INR} High 0.9 - 1.1 [facility] Interpretation and review of laboratory results Abnormal [facility] INR Coag (PPP) [Relative time] 2.7 High 0.9-1.1 [facility] Comment on above: Performed By: #### 1 994-3 #### AISHA Monzon ([id number]) [facility] ([facility]) [id number] [place] [address] Protime-INRon 05-21-2023 PT Coag (PPP) [Time] 30.5 s High [facility] Renal function 2000 panelon 05-21-2023 Albumin BCP dye [Mass/Vol] 3.5 g/dL 3.4 - 5.0 g/dL [facility] Anion gap [Moles/Vol] 12 mmol/L 10 - 2 0 mmol/L [facility] Calcium [Mass/Vol] 8.7 mg/dL 8.6 - 10. 6 mg/dL [facility] Chloride [Moles/Vol] 105 mmol/L 98 - 10 7 mmol/L [facility] CO2 [Moles/Vol] 25 mmol/L 21 - 32 mmol/L [facility] Creatinine [Mass/Vol] 0.98 mg/dL 0.50 - 1.30 mg/dL [facility] GFR/1.73 sq M.predicted among non-blacks MDRD (S/P/Bld) [Vol rate/Area] 88 mL/min/{1.73_m2} - PINF [facility] Comment on above: Calculations of erica mated GFR are performed using the 2020 CKD-EPI Study Refit equation without the race variable for the IDMS-Traceable creatinine methods. https://jasn.asnjournals.org/content//ASN.594678 6083 Glucose [Mass/Vol] 133 mg/dL High 74 - 99 mg/dL [facility] Interpretation and review of laboratory results Abnormal [facility] Phosphate [Mass/Vol] 3.2 mg/dL 2.5 - 4 .9 mg/dL [facility] Comment on above: MILD HEMOLYSIS DETEC SAMUEL. [...] [Moles/Vol] 4.9 mmol/L 3.5 - 5.3 mmol/L [facility] Comment on above: MILD HEMOLYSIS DETEC SAMUEL. The result may be falsely elevated due to hemolysis or other interferents. Clinical correlation is recommended. Repeat testing may be considered. Sodium [Moles/Vol] 137 mmol/L 136 - 145 mmol/L [facility] Urea nitrogen [Mass/Vol] 22 mg/dL 6 - 23 mg/dL [facility] Albumin BCP dye [Mass/Vol] 3.5 g/dL Normal 3.4-5.0 [facility] Comment on above: Performed By: #### 3 4529-8 #### AISHA ORTIZTZER L ([id number]) [facility] ([facility]) [address] [place] [address] 59149 Anion gap [Moles/Vol] 12 mmol/L Normal 10-20 [facility] Comment on above: Performed By: #### 3 4529-8 #### AISHA HOLLYMOTZER L ([id number]) [facility] ([facility]) [address] [place] [address] 61576 Calcium [Mass/Vol] 8.7 mg/dL Normal 8.6-10.[address] [facility] Comment on above: Performed By: #### 3 4529-8 #### AISHA SCHMOTZER L ([id number]) [facility] ([facility]) [address] [place] [address] 15786 Chloride [Moles/Vol] 105 mmol/L Normal 98-107 [facility] Comment on above: Performed By: #### 3 4529-8 #### AISHA HOLLYMOTZER L ([id number]) [facility] ([facility]) [address] [place] [address] 19459 CO2 [Moles/Vol] 25 mmol/L Normal 21-32 [facility] Comment on above: Performed By: #### 3 4529-8 #### AISHA ALEX L ([id number]) [facility] ([facility]) [address] [place] [address] Creatinine [Mass/Vol] 0.98 mg/dL Normal 0.50-1.30 [facility] Comment on above: Performed By: #### 3 4529-8 #### AISHA HOLLYMOTZER L ([id number]) [facility] ([facility]) [address] [place] [address] Glomerular filtration rate/1.73 sq M.predicted 88 mL/min/1.73m*2 Normal >60 [facility] Comment on above: Result Comment: Calc ulations of estimated GFR are performed using the 2020 CKD-EPI Study Refit equation without the race variable for the IDMS-Traceable creatinine methods. https://jasn.asnjournals.org/content/early//ASN.824063 1574 Performed By: #### 3 4529-8 #### AISHA Monzon ([id number]) [facility] ([facility]) [address] [place] [address] Glucose [Mass/Vol] 133 mg/dL High 74-[address] [facility] Comment on above: Performed By: #### 3 4529-8 #### AISHA HOLLYMOJESSICA L ([id number]) [facility] ([facility]) [address] [place] [address] Phosphate [Mass/Vol] 3.2 mg/dL Normal 2.5-4.9 [facility] Comment on above: Result Comment: MILD HEMOLYSIS [...] #### 3 4529-8 #### AISHA ALEX L ([id number]) [facility] ([facility]) [address] [place] [address] Potassium [Moles/Vol] 4.9 mmol/L Normal 3.5-5.3 [facility] Comment on above: Result Comment: MILD HEMOLYSIS DETECTED. The result may be falsely elevated due to hemolysis or other interferents. Clinical correlation is recommended. Repeat testing may be considered. Performed By: #### 3 4529-8 #### AISHA ALEX L ([id number]) [facility] ([facility]) [address] [place] [address] Sodium [Moles/Vol] 137 mmol/L Normal 136-[address] [facility] Comment on above: Performed By: #### 3 4529-8 #### AISHA ALEX L ([id number]) [facility] ([facility]) [address] [place] [address] 20512 Urea nitrogen [Mass/Vol] 22 mg/dL Normal 6-23 [facility] Comment on above: Performed By: #### 3 4529-8 #### AISHA JOSEER L ([id number]) [facility] ([facility]) [address] [place] [address] 56467 Albumin BCP dye [Mass/Vol] 3.4 g/dL 3.4 - 5.0 g/dL [facility] Anion gap [Moles/Vol] 14 mmol/L 10 - 2 0 mmol/L [facility] Calcium [Mass/Vol] 8.7 mg/dL 8.6 - 10. 6 mg/dL [facility] Chloride [Moles/Vol] 105 mmol/L 98 - 10 7 mmol/L [facility] CO2 [Moles/Vol] 22 mmol/L 21 - 32 mmol/L [facility] Creatinine [Mass/Vol] 1.01 mg/dL 0.50 - 1.30 mg/dL [facility] GFR/1.73 sq M.predicted among non-blacks MDRD (S/P/Bld) [Vol rate/Area] 85 mL/min/{1.73_m2} - PINF [facility] Comment on above: Calculations of erica mated GFR are performed using the 2020 CKD-EPI Study Refit equation without the race variable for the IDMS-Traceable creatinine methods. https://jasn.asnjournals.org/content/early/ASN.226070 9035 Glucose [Mass/Vol] 145 mg/dL High 74 - 99 mg/dL [facility] Interpretation and review of laboratory results Abnormal [facility] Phosphate [Mass/Vol] 3.2 mg/dL 2.5 - 4 .9 mg/dL [facility] Comment on above: MILD HEMOLYSIS DETEC SAMUEL. [...] [Moles/Vol] 4.8 mmol/L 3.5 - 5.3 mmol/L [facility] Comment on above: MILD HEMOLYSIS DETEC SAMUEL. The result may be falsely elevated due to hemolysis or other interferents. Clinical correlation is recommended. Repeat testing may be considered. Sodium [Moles/Vol] 136 mmol/L 136 - 145 mmol/L [facility] Urea nitrogen [Mass/Vol] 23 mg/dL 6 - 23 mg/dL [facility] Albumin BCP dye [Mass/Vol] 3.4 g/dL Normal 3.4-5.0 [facility] Comment on above: Performed By: #### 1 994-3 #### AISHA Monzon ([id number]) [facility] ([facility]) [address] [place] [address] 79889 Anion gap [Moles/Vol] 14 mmol/L Normal 10-20 [facility] Comment on above: Performed By: #### 1 994-3 #### AISHA Monzon ([id number]) [facility] ([facility]) [address] [place] [address] 90100 Calcium [Mass/Vol] 8.7 mg/dL Normal 8.6-10.[address] [facility] Comment on above: Performed By: #### 1 994-3 #### AISHA ORTIZTZER L ([id number]) [facility] ([facility]) [address] [place] [address] Chloride [Moles/Vol] 105 mmol/L Normal 98-107 [facility] Comment on above: Performed By: #### 1 994-3 #### AISHA SCHMOTZER L ([id number]) [facility] ([facility]) [address] [place] [address] CO2 [Moles/Vol] 22 mmol/L Normal 21-32 [facility] Comment on above: Performed By: #### 1 994-3 #### AISHA HOLLYMOTZER L ([id number]) [facility] ([facility]) [address] [place] [address] 10373 Creatinine [Mass/Vol] 1.01 mg/dL Normal 0.50-1.30 [facility] Comment on above: Performed By: #### 1 994-3 #### AISHA JOSEER L ([id number]) [facility] LAB ([facility]) [id number] [place] [address] 18209 Glomerular filtration rate/1.73 sq M.predicted 85 mL/min/1.73m*2 Normal >60 [facility] Comment on above: Result Comment: Calc ulations of estimated GFR are performed using the 2020 CKD-EPI Study Refit equation without the race variable for the IDMS-Traceable creatinine methods. https://jasn.asnjournals.org/content/early//ASN.658043 4333 Performed By: #### 1 994-3 #### AISHA ORTIZTZER L ([id number]) [facility] ([facility]) [id number] [place] [address] 36055 Glucose [Mass/Vol] 145 mg/dL High 74-[address] [facility] Comment on above: Performed By: #### 1 994-3 #### AISHA HOLLYMOTZER L ([id number]) [facility] ([facility]) [address] [place] [address] 08091 Phosphate [Mass/Vol] 3.2 mg/dL Normal 2.5-4.9 [facility] Comment on above: Result Comment: MILD HEMOLYSIS [...] By: #### 1 994-3 #### AISHA Monzon ([id number]) [facility] ([facility]) [address] [place] [address] 98014 Potassium [Moles/Vol] 4.8 mmol/L Normal 3.5-5.3 [facility] Comment on above: Result Comment: MILD HEMOLYSIS DETECTED. The result may be falsely elevated due to hemolysis or other interferents. Clinical correlation is recommended. Repeat testing may be considered. Performed By: #### 1 994-3 #### AISHA Monzon ([id number]) [facility] ([facility]) [address] [place] [address] Sodium [Moles/Vol] 136 mmol/L Normal 136-[address] [facility] Comment on above: Performed By: #### 1 994-3 #### AISHA Monzon ([id number]) [facility] ([facility]) [address] [place] [address] Urea nitrogen [Mass/Vol] 23 mg/dL Normal 6-23 [facility] Comment on above: Performed By: #### 1 994-3 #### AISHA ALEX L ([id number]) [facility] ([facility]) [id number] [place] [address] 09361 CBC panel Auto (Bld)on 05-20 Erythrocyte distribution width (RBC) [Ratio] 14.9 % High 11.5 - 14.5 % [facility] Hematocrit (Bld) [Volume fraction] 41.9 % 41.0 - 52.0 % [facility] Hemoglobin (Bld) [Mass/Vol] 14.2 g/dL 13.5 - 17.5 g/dL [facility] Interpretation and review of laboratory results Abnormal [facility] MCH (RBC) [Entitic mass] 30.8 pg 26.0 - 34.0 pg [facility] MCHC (RBC) [Mass/Vol] 33.9 g/dL 32.0 - 36.0 g/dL [facility] MCV (RBC) [Entitic vol] 91 fL 80 - 100 fL [facility] Nucleated RBC/100 WBC (Bld) [Ratio] 0.0 % [facility] Platelets (Bld) [#/Vol] 119 10*3/uL Low [facility] RBC (Bld) [#/Vol] 4.61 10*6/uL [facility] WBC (Bld) [#/Vol] 6.3 10*3/uL [facility] Erythrocyte distribution width (RBC) [Ratio] 14.9 % High 11.5-14.5 [facility] Comment on above: Performed By: #### 5 8410-2 #### AISHA Monzon ([id number]) [facility] ([facility]) [address] [place] [address] 42696 Hematocrit (Bld) [Volume fraction] 41.9 % Normal 41.0-52.0 [facility] Comment on above: Performed By: #### 5 8410-2 #### AISHA Monzon ([id number]) [facility] ([facility]) [address] [place] [address] 78556 Hemoglobin (Bld) [Mass/Vol] 14.2 g/dL Normal 13.5-17.5 [facility] Comment on above: Performed By: #### 5 8410-2 #### AISHA Monzon ([id number]) [facility] ([facility]) [address] [place] [address] 08620 MCH (RBC) [Entitic mass] 30.8 pg Normal 26.0-34.0 [facility] Comment on above: Performed By: #### 5 8410-2 #### AISHA Monzon ([id number]) [facility] ([facility]) [address] [place] [address] MCHC (RBC) [Mass/Vol] 33.9 g/dL Normal 32.0-36.0 [facility] Comment on above: Performed By: #### 5 8410-2 #### AISHA Monzon ([id number]) [facility] ([facility]) [address] [place] [address] MCV (RBC) [Entitic vol] 91 fL Normal 80-100 [facility] Comment on above: Performed By: #### 5 8410-2 #### AISHA Monzon ([id number]) [facility] ([facility]) [address] [place] [address] 89548 Nucleated RBC/100 WBC (Bld) [Ratio] 0.0 /100 WBCs Normal 0.0-0.0 [facility] Comment on above: Performed By: #### 5 8410-2 #### AISHA Monzon ([id number]) [facility] ([facility]) [address] [place] [address] Platelets (Bld) [#/Vol] 119 x10*3/uL Low 150-450 [facility] Comment on above: Performed By: #### 5 8410-2 #### AISHA Monzon ([id number]) [facility] ([facility]) [address] [place] [address] RBC (Bld) [#/Vol] 4.61 x10*6/uL Normal 4.50-5.90 [facility] Comment on above: Performed By: #### 5 8410-2 #### AISHA Monzon ([id number]) [facility] ([facility]) [address] [place] [address] WBC (Bld) [#/Vol] 6.3 x10*3/uL Normal 4.4-11.3 [facility] Comment on above: Performed By: #### 5 8410-2 #### AISHA Monzon ([id number]) [facility] ([facility]) [address] [place] [address] 13031 Cardiac device check - Inpat ientOrdered By: Matias Driver on 05-20-2023 [facility] Work Phone: Cardiac device check - Inpat ienton 05-20-2023 Radiology Study observation (narrative) [facility] Work Phone: Coagulation tissue factor in ducedon 05-20-2023 PT Coag (PPP) [Time] 28.5 s High 9.8-12.8 [facility] Comment on above: Performed By: #### 5 8410-2 #### AISHA Monzon ([id number]) [facility] ([facility]) [address] [place] [address] 62626 Glucose Test strip manual (B ld) [Mass/Vol]on 05-20-2023 Glucose [Mass/Vol] 185 mg/dL High 74 - 99 mg/dL [facility] Interpretation and review of laboratory results Abnormal [facility] Glucose [Mass/Vol] 185 mg/dL High 74-[address] [facility] Comment on above: Performed By: #### 1 994-3 #### AISHA Monzon ([id number]) [facility] ([facility]) [address] [place] [address] 10454 Glucose [Mass/Vol] 133 mg/dL High 74 - 99 mg/dL [facility] Interpretation and review of laboratory results Abnormal [facility] Glucose [Mass/Vol] 133 mg/dL High 74-[address] [facility] Comment on above: Performed By: #### 1 994-3 #### AISHA Monzon ([id number]) [facility] ([facility]) [address] [place] [address] 72669 Glucose [Mass/Vol] 202 mg/dL High 74 - 99 mg/dL [facility] Interpretation and review of laboratory results Abnormal [facility] Glucose [Mass/Vol] 202 mg/dL High 74-[address] [facility] Comment on above: Performed By: #### 1 994-3 #### AISHA Monzon ([id number]) [facility] ([facility]) [address] [place] [address] 44036 Glucose [Mass/Vol] 187 mg/dL High 74 - 99 mg/dL [facility] Interpretation and review of laboratory results Abnormal [facility] Glucose [Mass/Vol] 187 mg/dL High 74-[address] [facility] Comment on above: Performed By: #### 5 8410-2 #### AISHA Monzon ([id number]) [facility] ([facility]) [address] [place] [address] 60452 LDH Lactate to pyruvate reac tion [Catalytic activity/Vol]on 05-20-2023 Interpretation and review of laboratory results Abnormal [facility] Lactate Dehydrogenaseon 04-23 LDH Lactate to pyruvate reaction [Catalytic activity/Vol] 429 U/L High 84 - 246 U/L [facility] Lactate dehydrogenaseon 04-23 LDH Lactate to pyruvate reaction [Catalytic activity/Vol] 429 U/L High 84-246 [facility] Comment on above: Performed By: #### 5 8410-2 #### AISHA Monzon ([id number]) [facility] ([facility]) [address] [place] [address] 77898 Magnesiumon 05-20-2023 Magnesium [Mass/Vol] 2.23 mg/dL 1.60 - 2.40 mg/dL [facility] Magnesium [Mass/Vol] 2.23 mg/dL Normal 1.60-2.40 [facility] Comment on above: Performed By: #### 5 8410-2 #### AISHA Monzon ([id number]) [facility] ([facility]) [address] [place] [address] 77452 Magnesium [Mass/Vol]on 05-20 Interpretation and review of laboratory results Normal [facility] Natriuretic peptide B [Mass/ Vol]on 05-20-2023 Natriuretic peptide B (Bld) [Mass/Vol] 262 pg/mL High 0-99 [facility] Comment on above: Order Comment: <100 pg/mL - Heart failure [id number] pg/mL - Intermediate probability of acute heart [...] By: #### 1 994-3 #### AISHA Monzon ([id number]) [facility] ([facility]) [address] [place] [address] No Panel Informationon 05-20 [facility] PT Coag (PPP) [Time]on 05-20 INR Coag (PPP) [Relative time] 2.5 {INR} High 0.9 - 1.1 [facility] Interpretation and review of laboratory results Abnormal [facility] INR Coag (PPP) [Relative time] 2.5 High 0.9-1.1 [facility] Comment on above: Performed By: #### 5 8410-2 #### AISHA Monzon ([id number]) [facility] ([facility]) [address] [place] [address] Protime-INRon 05-20-2023 PT Coag (PPP) [Time] 28.5 s High [facility] Renal function 2000 panelon 05-20-2023 Albumin BCP dye [Mass/Vol] 3.5 g/dL 3.4 - 5.0 g/dL [facility] Anion gap [Moles/Vol] 13 mmol/L 10 - 2 0 mmol/L [facility] Calcium [Mass/Vol] 9.3 mg/dL 8.6 - 10. 6 mg/dL [facility] Chloride [Moles/Vol] 104 mmol/L 98 - 10 7 mmol/L [facility] CO2 [Moles/Vol] 22 mmol/L 21 - 32 mmol/L [facility] Creatinine [Mass/Vol] 0.99 mg/dL 0.50 - 1.30 mg/dL [facility] GFR/1.73 sq M.predicted among non-blacks MDRD (S/P/Bld) [Vol rate/Area] 87 mL/min/{1.73_m2} - PINF [facility] Comment on above: Calculations of erica mated GFR are performed using the 2020 CKD-EPI Study Refit equation without the race variable for the IDMS-Traceable creatinine methods. https://jasn.asnjournals.org/content/early/ASN.393128 3822 Glucose [Mass/Vol] 157 mg/dL High 74 - 99 mg/dL [facility] Interpretation and review of laboratory results Abnormal [facility] Phosphate [Mass/Vol] 3.6 mg/dL 2.5 - 4 .9 mg/dL [facility] Comment on above: The performance jean pierre acteristics of phosphorus testing in heparinized plasma have been validated by the individual laboratory site where testing is performed. Testing on heparinized plasma is not approved by the FDA; however, such approval is not necessary. Potassium [Moles/Vol] 3.8 mmol/L 3.5 - 5.3 mmol/L [facility] Sodium [Moles/Vol] 135 mmol/L Low 136 - 145 mmol/L [facility] Urea nitrogen [Mass/Vol] 21 mg/dL 6 - 23 mg/dL [facility] Albumin BCP dye [Mass/Vol] 3.5 g/dL Normal 3.4-5.0 [facility] Comment on above: Performed By: #### 5 8410-2 #### AISHA Monzon ([id number]) [facility] ([facility]) [address] [place] [address] 87020 Anion gap [Moles/Vol] 13 mmol/L Normal 10-20 [facility] Comment on above: Performed By: #### 5 8410-2 #### AISHA Monzon ([id number]) [facility] ([facility]) [address] [place] [address] 80305 Calcium [Mass/Vol] 9.3 mg/dL Normal 8.6-10.[address] [facility] Comment on above: Performed By: #### 5 8410-2 #### AISHA Monzon ([id number]) [facility] ([facility]) [address] [place] [address] Chloride [Moles/Vol] 104 mmol/L Normal 98-107 [facility] Comment on above: Performed By: #### 5 8410-2 #### AISHA ALEX L ([id number]) [facility] ([facility]) [address] [place] [address] CO2 [Moles/Vol] 22 mmol/L Normal 21-32 [facility] Comment on above: Performed By: #### 5 8410-2 #### AISHA Monzon ([id number]) [facility] ([facility]) [address] [place] [address] Creatinine [Mass/Vol] 0.99 mg/dL Normal 0.50-1.30 [facility] Comment on above: Performed By: #### 5 8410-2 #### AISHA Monzon ([id number]) [facility] ([facility]) [address] [place] [address] Glomerular filtration rate/1.73 sq M.predicted 87 mL/min/1.73m*2 Normal >60 [facility] Comment on above: Result Comment: Calc ulations of estimated GFR are performed using the 2020 CKD-EPI Study Refit equation without the race variable for the IDMS-Traceable creatinine methods. https://jasn.asnjournals.org/content/early//ASN.658822 4243 Performed By: #### 5 8410-2 #### AISHA ALEX L ([id number]) [facility] ([facility]) [address] [place] [address] Glucose [Mass/Vol] 157 mg/dL High 74-[address] [facility] Comment on above: Performed By: #### 5 8410-2 #### AISHA ALEX L ([id number]) [facility] ([facility]) [address] [place] [address] Phosphate [Mass/Vol] 3.6 mg/dL Normal 2.5-4.9 [facility] Comment on above: Result Comment: The performance characteristics of phosphorus testing in heparinized plasma have been validated by the individual laboratory site where testing is performed. Testing on heparinized plasma is not approved by the FDA; however, such approval is not necessary. Performed By: #### 5 8410-2 #### AISHA Monzon ([id number]) [facility] ([facility]) [address] [place] [address] 94052 Potassium [Moles/Vol] 3.8 mmol/L Normal 3.5-5.3 [facility] Comment on above: Performed By: #### 5 8410-2 #### AISHA Monzon ([id number]) [facility] ([facility]) [address] [place] [address] 87279 Sodium [Moles/Vol] 135 mmol/L Low 136-[address] [facility] Comment on above: Performed By: #### 5 8410-2 #### AISHA Monzon ([id number]) [facility] ([facility]) [address] [place] [address] 63531 Urea nitrogen [Mass/Vol] 21 mg/dL Normal 6-23 [facility] Comment on above: Performed By: #### 5 8410-2 #### AISHA Monzon ([id number]) [facility] ([facility]) [address] [place] [address] 80249 TRANSTHORACIC ECHO (TTE) [facility] 05-20-2023 TRANSTHORACIC ECHO (TTE) [facility], [address] [place] [address] and TRANSTHORACIC ECHOCARDIOGRAM REPORT Patient Name: TERRY Santoyo Physician: [id number] Shorty Amin MD Study Date: 05/20/2023 Ordering Provider: [id number] WOOD BARBER MRN/PID: [id number] Fellow: Nurse: Date of /Age: 408/05/1960 / 62 years Print Graphic Designer: ZULMA Garrett RDCS Gender: M Additional Staff: Height: 180.34 cm Admit Date: Weight: 106.14 kg Admission Status: Inpatient - STAT BSA: 2.25 m2 Department Location: [address] Blood Pressure: /65 mmHg Study Type: TRANSTHORACIC ECHO (TTE) COMPLETE Diagnosis/ICD: Presence of heart assist device-Z95.811 Indication: HFrEF with LVAD CPT Code: Echo Complete w Full Doppler-76796 Patient History: Pertinent History: A-Fib. HFrEF s/p [...] Ranges: L (more content not included)... Normal [facility] US Heart TransthoracicOrdere d By: Shorty Amin on 05-20-2023 Body surface area Derived from formula 2.34 m2 [facility] Work Phone: LA vol index A/L 42.4 ml/m2 [facility] Work Phone: LVIDd 5.34 cm [facility] Work Phone: MV avg E/e' ratio 27.43 [facility] Work Phone: MV E/A ratio 3.04 [facility] Work Phone: RV free wall pk S' 4.00 cm/s [facility] Work Phone: Tricuspid annular plane systolic excursion 0.7 cm [facility] Work Phone: [facility] Work Phone: US Heart Transthoracicon [facility], [address] [place] [address] and TRANSTHORACIC ECHOCARDIOGRAM REPORT Patient Name: TERRY Monteiro YUVAL Santoyo Physician: [id number] Shorty Amin MD Study Date: 05/20/2023 Ordering Provider: [id number] WOOD BARBER MRN/PID: [id number] Fellow: Nurse: Date of /Age: 408/05/1960 / 62 years Print Graphic Designer: ZULMA Garrett RDCS Gender: M Additional Staff: Height: 180.34 cm Admit Date: Weight: 106.14 kg Admission Status: Inpatient - STAT BSA: 2.25 m2 Department Location: [address] Blood Pressure: /65 mmHg Study Type: TRANSTHORACIC ECHO (TTE) COMPLETE Diagnosis/ICD: Presence of heart assist device-Z95.811 Indication: HFrEF with LVAD CPT Code: Echo Complete w Full Doppler-66395 Patient History: Pertinent History: A-Fib. HFrEF s/p [...] not included)... Shorty Bowens MD - 05/20/2023 [facility], [address] [place] [address] and TRANSTHORACIC ECHOCARDIOGRAM REPORT Patient Name: TERRY Cayetano Santoyo Physician: [id number] Shorty Amin MD Study Date: 05/20/2023 Ordering Provider: [id number] WOOD BARBER MRN/PID: [id number] Fellow: Nurse: Date of /Age: 408/05/1960 / 62 years Print Graphic Designer: ZULMA Garrett RDCS Gender: M Additional Staff: Height: 180.34 cm Admit Date: Weight: 106.14 kg Admission Status: Inpatient - STAT BSA: 2.25 m2 [facility] Blood Pressure: /65 mmHg Study Type: TRANSTHORACIC ECHO (TTE) COMPLETE Diagnosis/ICD: Presence of heart assist device-Z95.811 Indication: HFrEF with LVAD CPT Code: Echo Complete w Full Doppler-27006 Patient History: Pertinent History: A-Fib. HFrEF s/p [...] LVIDd: 5.34 c (more content not included)... [facility] Work Phone: Arterial Line Insertionon LUBNA Solis 05/19/2023 6:14 PM Arterial Line Insertion Date/Time: 05/19/2023 6:09 PM Performed by: LUBNA Solis Authorized by: LUBNA Solis Consent: Consent obtained: Emergent situation Consent given by: Patient Risks, benefits, and alternatives were discussed: yes Risks discussed: Bleeding, ischemia, infection, pain and repeat procedure [place] protocol: Procedure explained and questions answered to [...] performed the procedure, Natty Metz is a commercial lines account assistant. [facility] Work Phone: Basic metabolic 2000 panelon 05-19-2023 Anion gap [Moles/Vol] 16 mmol/L 10 - 2 0 mmol/L [facility] Calcium [Mass/Vol] 9.6 mg/dL 8.6 - 10. 6 mg/dL [facility] Chloride [Moles/Vol] 100 mmol/L 98 - 10 7 mmol/L [facility] CO2 [Moles/Vol] 20 mmol/L Low 21 - 32 mmol/L [facility] Creatinine [Mass/Vol] 1.12 mg/dL 0.50 - 1.30 mg/dL [facility] GFR/1.73 sq M.predicted among non-blacks MDRD (S/P/Bld) [Vol rate/Area] 75 mL/min/{1.73_m2} - PINF [facility] Comment on above: Calculations of erica mated GFR are performed using the 2020 CKD-EPI Study Refit equation without the race variable for the IDMS-Traceable creatinine methods. https://jasn.asnjournals.org/content//ASN.458180 2112 Glucose [Mass/Vol] 313 mg/dL High 74 - 99 mg/dL [facility] Interpretation and review of laboratory results Abnormal [facility] Potassium [Moles/Vol] 4.1 mmol/L 3.5 - 5.3 mmol/L [facility] Sodium [Moles/Vol] 132 mmol/L Low 136 - 145 mmol/L [facility] Urea nitrogen [Mass/Vol] 22 mg/dL 6 - 23 mg/dL [facility] Anion gap [Moles/Vol] 16 mmol/L Normal 10-20 [facility] Comment on above: Performed By: #### 5 8410-2 #### AISHA ALEX L ([id number]) [facility] ([facility]) [address] [place] [address] Calcium [Mass/Vol] 9.6 mg/dL Normal 8.6-10.[address] [facility] Comment on above: Performed By: #### 5 8410-2 #### AISHA ORTIZTZER L ([id number]) [facility] ([facility]) [address] [place] [address] 29985 Chloride [Moles/Vol] 100 mmol/L Normal 98-107 [facility] Comment on above: Performed By: #### 5 8410-2 #### AISHA HOLLYMOTZER L ([id number]) [facility] ([facility]) [address] [place] [address] CO2 [Moles/Vol] 20 mmol/L Low 21-32 [facility] Comment on above: Performed By: #### 5 8410-2 #### AISHA HOLLYMOTZER L ([id number]) [facility] ([facility]) [address] [place] [address] 70891 Creatinine [Mass/Vol] 1.12 mg/dL Normal 0.50-1.30 [facility] Comment on above: Performed By: #### 5 8410-2 #### AISHA HOLLYMOTZER L (54997) [facility] ([facility]) [address] [place] [address] Glomerular filtration rate/1.73 sq M.predicted 75 mL/min/1.73m*2 Normal >60 [facility] Comment on above: Result Comment: Calc ulations of estimated GFR are performed using the 2020 CKD-EPI Study Refit equation without the race variable for the IDMS-Traceable creatinine methods. https://jasn.asnjournals.org/content//ASN.720108 3162 Performed By: #### 5 8410-2 #### AISHA Monzon ([id number]) [facility] ([facility]) [address] [place] [address] 22745 Glucose [Mass/Vol] 313 mg/dL High 74-[address] [facility] Comment on above: Performed By: #### 5 8410-2 #### AISHA Monzon ([id number]) [facility] ([facility]) [address] [place] [address] 35365 Potassium [Moles/Vol] 4.1 mmol/L Normal 3.5-5.3 [facility] Comment on above: Performed By: #### 5 8410-2 #### AISHA Monzon ([id number]) [facility] ([facility]) [address] [place] [address] 44533 Sodium [Moles/Vol] 132 mmol/L Low 136-[address] [facility] Comment on above: Performed By: #### 5 8410-2 #### AISHA Monzon ([id number]) [facility] ([facility]) [address] [place] [address] 74744 Urea nitrogen [Mass/Vol] 22 mg/dL Normal 6-23 [facility] Comment on above: Performed By: #### 5 8410-2 #### AISHA Monzon ([id number]) [facility] ([facility]) [address] [place] [address] 34544 Anion gap [Moles/Vol] 24 mmol/L High 10-20 [facility] Comment on above: Performed By: #### 3 4529-8 #### AISHA Monzon ([id number]) [facility] ([facility]) [address] [place] [address] 87949 Calcium [Mass/Vol] 9.7 mg/dL Normal 8.6-10.[address] [facility] Comment on above: Performed By: #### 3 4529-8 #### AISHA Monzon ([id number]) [facility] ([facility]) [address] [place] [address] Chloride [Moles/Vol] 104 mmol/L Normal 98-107 [facility] Comment on above: Performed By: #### 3 4529-8 #### AISHA Monzon ([id number]) [facility] ([facility]) [address] [place] [address] CO2 [Moles/Vol] 16 mmol/L Low 21-32 [facility] Comment on above: Performed By: #### 3 4529-8 #### AISHA Monzon ([id number]) [facility] ([facility]) [address] [place] [address] Creatinine [Mass/Vol] 1.24 mg/dL Normal 0.50-1.30 [facility] Comment on above: Performed By: #### 3 4529-8 #### AISHA Monzon ([id number]) [facility] ([facility]) [address] [place] [address] Glomerular filtration rate/1.73 sq M.predicted 66 mL/min/1.73m*2 Normal >60 [facility] Comment on above: Result Comment: Calc ulations of estimated GFR are performed using the 2020 CKD-EPI Study Refit equation without the race variable for the IDMS-Traceable creatinine methods. https://jasn.asnjournals.org/content//ASN.983017 0703 Performed By: #### 3 4529-8 #### AISHA Monzon ([id number]) [facility] ([facility]) [address] [place] [address] Glucose [Mass/Vol] 349 mg/dL High 74-[address] [facility] Comment on above: Performed By: #### 3 4529-8 #### AISHA Monzon ([id number]) [facility] ([facility]) [address] [place] [address] Potassium [Moles/Vol] 4.8 mmol/L Normal 3.5-5.3 [facility] Comment on above: Performed By: #### 3 4529-8 #### AISHA Monzon ([id number]) [facility] ([facility]) [address] [place], [place] [address] Sodium [Moles/Vol] 139 mmol/L Normal 136-[address] [facility] Comment on above: Performed By: #### 3 4529-8 #### AISHA Monzon ([id number]) [facility] ([facility]) [address] [place] [address]12 Urea nitrogen [Mass/Vol] 22 mg/dL Normal 6-23 [facility] Comment on above: Performed By: #### 3 4529-8 #### AISHA Monzon ([id number]) [facility] ([facility]) [address] [place], [place] [address] Blood type and Indirect anti body screen panel (Bld)on 05-19-2023 ABO group Nom (Bld) A [facility] Blood group antibody screen Ql Negative [facility] D Ag Ql (Bld) Positive [facility] ABO group Nom (Bld) A Normal [facility] Comment on above: Performed By: #### 3 4532-2 #### AISHA Monzon ([id number]) [facility] ([facility]) [address] [place], [place] [phone] Blood group antibody screen Ql Negative [facility] Comment on above: Performed By: #### 3 4532-2 #### AISHA Monzon ([id number]) [facility] ([facility]) [address] [place] [address] D Ag Ql (Bld) Positive [facility] Comment on above: Performed By: #### 3 4532-2 #### AISHA Monzon ([id number]) [facility] ([facility]) [address] [place] [address] CBC panel Auto (Bld)on 05-19 Erythrocyte distribution width (RBC) [Ratio] 14.6 % High 11.5 - 14.5 % [facility] Hematocrit (Bld) [Volume fraction] 44.6 % 41.0 - 52.0 % [facility] Hemoglobin (Bld) [Mass/Vol] 15.2 g/dL 13.5 - 17.5 g/dL [facility] Interpretation and review of laboratory results Abnormal [facility] MCH (RBC) [Entitic mass] 31.1 pg 26.0 - 34.0 pg [facility] MCHC (RBC) [Mass/Vol] 34.1 g/dL 32.0 - 36.0 g/dL [facility] MCV (RBC) [Entitic vol] 91 fL 80 - 100 fL [facility] Nucleated RBC/100 WBC (Bld) [Ratio] 0.0 % [facility] Platelets (Bld) [#/Vol] 123 10*3/uL Low [facility] RBC (Bld) [#/Vol] 4.89 10*6/uL [facility] WBC (Bld) [#/Vol] 6.5 10*3/uL [facility] Erythrocyte distribution width (RBC) [Ratio] 14.6 % High 11.5-14.5 [facility] Comment on above: Performed By: #### 5 8410-2 #### AISHA Monzon ([id number]) [facility] ([facility]) [address] [place] [address] Hematocrit (Bld) [Volume fraction] 44.6 % Normal 41.0-52.0 [facility] Comment on above: Performed By: #### 5 8410-2 #### AISHA Monzon ([id number]) [facility] ([facility]) [address] [place] [address] 13091 Hemoglobin (Bld) [Mass/Vol] 15.2 g/dL Normal 13.5-17.5 [facility] Comment on above: Performed By: #### 5 8410-2 #### AISHA Monzon ([id number]) [facility] ([facility]) [address] [place] [address] MCH (RBC) [Entitic mass] 31.1 pg Normal 26.0-34.0 [facility] Comment on above: Performed By: #### 5 8410-2 #### AISHA Monzon ([id number]) [facility] ([facility]) [address] [place] [address] MCHC (RBC) [Mass/Vol] 34.1 g/dL Normal 32.0-36.0 [facility] Comment on above: Performed By: #### 5 8410-2 #### AISHA Monzon ([id number]) [facility] ([facility]) [address] [place] [address] MCV (RBC) [Entitic vol] 91 fL Normal 80-100 [facility] Comment on above: Performed By: #### 5 8410-2 #### AISHA Monzon ([id number]) [facility] ([facility]) [address] [place] [address] Nucleated RBC/100 WBC (Bld) [Ratio] 0.0 /100 WBCs Normal 0.0-0.0 [facility] Comment on above: Performed By: #### 5 8410-2 #### AISHA Monzon ([id number]) [facility] ([facility]) [address] [place] [address] Platelets (Bld) [#/Vol] 123 x10*3/uL Low 150-450 [facility] Comment on above: Performed By: #### 5 8410-2 #### AISHA Monzon ([id number]) [facility] ([facility]) [address] [place] [address] 14607 RBC (Bld) [#/Vol] 4.89 x10*6/uL Normal 4.50-5.90 [facility] Comment on above: Performed By: #### 5 8410-2 #### AISHA Monzon ([id number]) [facility] ([facility]) [address] [place] [address] WBC (Bld) [#/Vol] 6.5 x10*3/uL Normal 4.4-11.3 [facility] Comment on above: Performed By: #### 5 8410-2 #### AISHA Monzon ([id number]) [facility] ([facility]) [address] [place], [place] [address] Calcium, ionizedon Calcium.ionized (Bld) [Moles/Vol] 0.84 mmol/L Low 1.1 - 1.33 mmol/L [facility] Comment on above: The performance jean pierre acteristics of ionized calcium tested in heparinized plasma or serum have been validated by the individual laboratory site where testing is performed. Testing on heparinized plasma or serum is not approved by the FDA; however, such approval is not necessary. Calcium.ionizedon 05-19-2023 Calcium.ionized (Bld) [Moles/Vol] 0.84 mmol/L Low 1.1-1.33 [facility] Comment on above: Result Comment: The performance characteristics of ionized calcium tested in heparinized plasma or serum have been validated by the individual laboratory site where testing is performed. Testing on heparinized plasma or serum is not approved by the FDA; however, such approval is not necessary. Performed By: #### 1 994-3 #### AISHA Monzon ([id number]) [facility] ([facility]) [address] [place] [address] Calcium.ionized (Bld) [Moles /Vol]on 05-19-2023 Interpretation and review of laboratory results Abnormal [facility] Digoxinon 05-19-2023 Digoxin [Mass/Vol] 0.46 ng/mL Low 0.80 - <2.00 [facility] Digoxin [Mass/Vol] 0.46 ng/mL Low 0.80-<2.[address] [facility] Comment on above: Order Comment: Digox in measurements can be falsely increased or decreased if patient is receiving Digoxin-binding antibody therapy or Digoxin-like immunoreactive factors are present. Performed By: #### 1 0535-3 #### AISHA Monzon ([id number]) [facility] ([facility]) [address] [place], [place] [address] Digoxin [Mass/Vol]on 024 Interpretation and review of laboratory results Abnormal [facility] Digoxin measurements can be falsely increased or decreased if patient is receiving Digoxin-binding antibody therapy or Digoxin-like immunoreactive factors are present. [facility] Electrical Cardioversionon 0 05-19-2023 LUBNA Solis 05/19/2023 6:28 PM Electrical Cardioversion Date/Time: 05/19/2023 6:18 PM Performed by: LUBNA Solis Authorized by: LUBNA Solis Consent: Consent obtained: Verbal and emergent situation Consent given by: Patient Risks, benefits, and alternatives were discussed: yes Alternatives discussed: Rate-control medication, alternative treatment, no treatment and observation [place] protocol: Procedure explained and questions answered to [...] Procedure completion: Tolerated well, no immediate complications [facility] Work Phone: [facility] Work Phone: Glucose Test strip manual (B ld) [Mass/Vol]on 05-19-2023 Glucose [Mass/Vol] 304 mg/dL High 74 - 99 mg/dL [facility] Interpretation and review of laboratory results Abnormal [facility] Glucose [Mass/Vol] 304 mg/dL High 74-[address] [facility] Comment on above: Performed By: #### 2 341-6 #### AISHA Monzon ([id number]) [facility] ([facility]) [address] [place] [address] Glucose [Mass/Vol] 330 mg/dL High 74 - 99 mg/dL [facility] Interpretation and review of laboratory results Abnormal [facility] Glucose [Mass/Vol] 330 mg/dL High 74-[address] [facility] Comment on above: Performed By: #### 2 341-6 #### AISHA Monzon ([id number]) [facility] ([facility]) [address] [place] [address] HbA1c (Bld) [Mass fraction]o n 05-19-2023 Average glucose Estimated from glycated hemoglobin (Bld) [Mass/Vol] 209 mg/dL Not Established [facility] Interpretation and review of laboratory results Abnormal [facility] Diagnosis of Diabetes-Adults Non-Diabetic: < or = 5.6% Increased risk for developing diabetes: 5.7-6.4% Diagnostic of diabetes: > or = 6.5% Monitoring of Diabetes Age (y).................. ..... Therapeutic Goal (%) Adults: >18.................. .......<7.0 Pediatrics: 13-18................ ...<7.5 Pediatrics: 7-12................. ...<8.0 Pediatrics: 0-6.................. ... 7.5-8.5 [employer]. Diabetes Care 33(S1), Apr 2009 [facility] Average glucose Estimated from glycated hemoglobin (Bld) [Mass/Vol] 209 mg/dL Normal Not Established [facility] Comment on above: Order Comment: Diagn osis of Diabetes-Adults Non-Diabetic: < or = 5.6% Increased risk for developing diabetes: 5.7-6.4% Diagnostic of diabetes: > or = 6.5% Monitoring of Diabetes Age (y)....................... Therapeutic Goal (%) Adults: >18.........................<7.0 Pediatrics: 13-18...................<7.5 Pediatrics: 7-12....................<8.0 Pediatrics: 0-6..................... 7.5-8.5 [employer]. Diabetes Care 33(S1)Apr 2009 Performed By: #### 4 548-4 #### AISHA Monzon ([id number]) [facility] ([facility]) [address] [place] [address] Hemoglobin A1con 05-19-2023 HbA1c (Bld) [Mass fraction] 8.9 % High see below [facility] Hemoglobin A1c/Hemoglobin.to davin 05-19-2023 HbA1c (Bld) [Mass fraction] 8.9 % High see below [facility] Comment on above: Order Comment: Diagn osis of Diabetes-Adults Non-Diabetic: < or = 5.6% Increased risk for developing diabetes: 5.7-6.4% Diagnostic of diabetes: > or = 6.5% Monitoring of Diabetes Age (y)....................... Therapeutic Goal (%) Adults: >18.........................<7.0 Pediatrics: 13-18...................<7.5 Pediatrics: 7-12....................<8.0 Pediatrics: 0-6..................... 7.5-8.5 [employer]. Diabetes Care 33(S1)Apr 2009 Performed By: #### 4 548-4 #### AISHA Monzon ([id number]) [facility] ([facility]) [address] [place] [address] LDH Lactate to pyruvate reac tion [Catalytic activity/Vol]on 05-19-2023 Interpretation and review of laboratory results Abnormal [facility] Lactateon 05-19-2023 Lactate [Moles/Vol] 1.6 mmol/L 0.4 - 2. 0 mmol/L [facility] Lactate [Moles/Vol] 1.6 mmol/L Normal 0.4-2.0 [facility] Comment on above: Order Comment: Venip uncture immediately after or during the administration of Metamizole may lead to falsely low results. Testing should be performed immediately prior to Metamizole dosing. Performed By: #### 2 524-7 #### AISHA Monzon ([id number]) [facility] ([facility]) [address] [place], [place] [address] Lactate Dehydrogenaseon 04-23 LDH Lactate to pyruvate reaction [Catalytic activity/Vol] 395 U/L High 84 - 246 U/L [facility] Lactate [Moles/Vol]on 2023 Interpretation and review of laboratory results Normal [facility] Venipuncture immediately after or during the administration of Metamizole may lead to falsely low results. Testing should be performed immediately prior to Metamizole dosing. [facility] Lactate dehydrogenaseon 04-23 LDH Lactate to pyruvate reaction [Catalytic activity/Vol] 395 U/L High 84-246 [facility] Comment on above: Performed By: #### 5 8410-2 #### AISHA Monzon ([id number]) [facility] ([facility]) [address] [place] [address] Magnesiumon 05-19-2023 Magnesium [Mass/Vol] 4.81 mg/dL Critically high 1.60 - 2.40 mg/dL [facility] Magnesium [Mass/Vol] 4.81 mg/dL Critically high 1.60-2.40 [facility] Comment on above: Performed By: #### 5 8410-2 #### AISHA Monzon ([id number]) [facility] ([facility]) [address] [place] [address] Magnesium [Mass/Vol]on 05-19 Interpretation and review of laboratory results Abnormal [facility] PT and aPTT panel Coag (PPP) on 05-19-2023 aPTT Coag (PPP) [Time] 42 s High [facility] INR Coag (PPP) [Relative time] 2.4 {INR} High 0.9 - 1.1 [facility] Interpretation and review of laboratory results Abnormal [facility] PT Coag (PPP) [Time] 27.8 s High [facility] The APTT is no longe r used for monitoring Unfractionated Heparin Therapy. For monitoring Heparin Therapy, use the Heparin Assay. [facility] aPTT Coag (PPP) [Time] 42 s High 27-38 [facility] Comment on above: Order Comment: The A PTT is no longer used for monitoring Unfractionated Heparin Therapy. For monitoring Heparin Therapy, use the Heparin Assay. Performed By: #### 3 4529-8 #### AISHA Monzon ([id number]) [facility] ([facility]) [address] [place] [address] INR Coag (PPP) [Relative time] 2.4 High 0.9-1.1 [facility] Comment on above: Order Comment: The A PTT is no longer used for monitoring Unfractionated Heparin Therapy. For monitoring Heparin Therapy, use the Heparin Assay. Performed By: #### 3 4529-8 #### AISHA Monzon ([id number]) [facility] ([facility]) [address] [place] [address] PT Coag (PPP) [Time] 27.8 s High 9.8-12.8 [facility] Comment on above: Order Comment: The A PTT is no longer used for monitoring Unfractionated Heparin Therapy. For monitoring Heparin Therapy, use the Heparin Assay. Performed By: #### 3 4529-8 #### AISHA Monzon ([id number]) [facility] ([facility]) [address] [place] [address]85[address] TSH WITH REFLEX TO FREE T4 I F ABNORMALon 05-19-2023 TSH Qn 0.98 m[IU]/L Normal 0.44-3.98 [facility] Comment on above: Order Comment: TSH t esting is performed using different testing methodology at [facility] than at other [facility]. Direct result comparisons should only be made within the same method. Performed By: #### T SANDI #### AISHA Monzon ([id number]) [facility] ([facility]) [address] [place] [address] TSH with reflex to Free T4 i f abnormalon 05-19-2023 Interpretation and review of laboratory results Normal [facility] TSH Qn 0.98 m[IU]/L [facility] TSH testing is performed using different testing methodology at [facility] than at other [facility] [facility] [facility]. Direct result comparisons should only be made within the same method. [facility] XR CHEST 1 VIEWon 05-19-2023 XR CHEST 1 VIEW Interpreted By: Kb Antonio and Meyers Emily STUDY: XR CHEST 1 VIEW; 05/19/2023 2:30 pm INDICATION: Signs/Symptoms:admit CXR. COMPARISON: Chest radiograph 03/22/2021 ACCESSION NUMBER(S): [id number] ORDERING CLINICIAN: WOOD BARBER FINDINGS: AP radiograph [...] stated above. This study was interpreted at [facility], [place], [place]. MACRO: None Signed by: Kb Antonio 05/19/2023 5:15 PM Dictation workstation: [id number] Normal [facility] XR Chest Single viewon 05-19 1. Mild perihilar vascular congestion, which is similar when compared to prior exam. Recommend correlation with patient's volume status. 2. Medical lines and devices as detailed above. I personally reviewed the images/study, and I agree with the findings as stated above. This study was interpreted at [place], [place]. MACRO: None Signed by: Kb Antonio 05/19/2023 5:15 PM Dictation workstation: [id number] [facility] Interpreted By: Kb Antonio and Meyers Emily STUDY: XR CHEST 1 VIEW; 05/19/2023 2:30 pm INDICATION: Signs/Symptoms:admit CXR. COMPARISON: Chest radiograph 03/22/2021 ACCESSION NUMBER(S): [id number] ORDERING CLINICIAN: WOOD BARBER FINDINGS: AP radiograph [...] abdominal findings. BONES: No acute osseous changes. [facility] Levon Antonio MD - 05/19/2023 Interpreted By: Kb Antonio and Meyers Emily STUDY: XR CHEST 1 VIEW; 05/19/2023 2:30 pm INDICATION: Signs/Symptoms:admit CXR. COMPARISON: Chest radiograph 03/22/2021 ACCESSION NUMBER(S): [id number] ORDERING CLINICIAN: WOOD BARBER FINDINGS: AP radiograph [...] stated above. This study was interpreted at [facility], [place], [place]. MACRO: None Signed by: Kb Antonio 05/19/2023 5:15 PM Dictation workstation: [id number] [facility] Work Phone: Radiology Study observation (narrative) [facility] Work Phone: XR Chest Single viewOrdered By: Levon Antonio on 05-19-2023 [facility] Work Phone: ED Note-Physicianon 04-10-20 ED Note-Physician Basic Information Time Seen: Cee Jaquez PA-C 04/07/2023 15:38 Chief Complaint Pt presents to [...] JOLEEN HERRERA In 3 days [address] [place] [address] [phone] Business (1) Additional Instructions: Patient Education Contusion Attestation Patient was treated and evaluated by the Physician Junior Architect. The attending physician was in the Emergency [...] = na Signed By: Andres Cote MD [facility] Comment on above: Result Comment: Elec tronically Signed By: Cee Jaquez PA-C N\.br\Date and Time Signed: 04/07/23 22:39 EST\.br\Electronically Co-Signed By: David Johnson M.D.\.br\Date and Time Co-Signed: 04/10/23 19:25 EST Consent for Treatmenton 03-22 Consent for Treatment [id number]#1 .00TIFF [facility] Discharge Instructionson Discharge Instructions [id number]# 1.00TIFF [facility] ED Clinical Summaryon 2022 ED Clinical Summary [place] [id number] ED Clinical Summary Person Information Name: TERRY VILLALPANDO [facility] Age: 62 Years : 1960 Sex: Male Language: Persian PCP: JOLEEN HERRERA CNP Marital Status: Phone: [phone] Visit Id: Visit Reason: Foot injury - [...] 04/07/2023 17:06:00 04/07/2023 17:06:00 04/07/2023 17:06:00 ADDRESS: [address] [place] [address] [address] [place] [id number] PHYS DOC NOTES: MEDICAL INFORMATION: Prescriptions Given: PATIENT EDUCATION INFORMATION: Instructions: Contusion Follow up: With: Address: When: JOLEEN SHARON [address] [place], [place] [phone] Business (1) In 3 days DIAGNOSIS: 1:Foot contusion Normal [facility] ED Patient Education Noteon 04-07-2023 ED Patient [...] or lying down. General instructions ? Take mikv-meg-rbvnrvr and prescription medicines only as told by [...] compression, and elevation. You may be given ftlc-xjm-pkpuvdh medicines for pain. ? Contact a health [...] Reviewed: 02/01/2022 Elsevier Patient Education ? 2022 [employer] Normal [facility] ED Patient Summaryon 023 ED Patient Summary [place] [id number] Patient Discharge Instructions Person Information Name: TERRY VILLALPANDO Age: 62 Years Arrival Date: 04/07/2023 15:19:29 Discharge Diagnosis: 1:Foot contusion Primary Care Physician: JOLEEN HERRERA CNP Provider Information Primary Provider: David Johnson M.D. Advanced Shellfish Harvester:Cee Jaquez PA-C The exam and treatment you received in the Emergency Department were for an urgent problem and are not intended as complete care. It is important that you follow up with a doctor, nurse practitioner, or physician?s commercial lines account assistant for ongoing care. If your symptoms [...] With: Address: When: JOLEEN HERRERA [address] [place], [place] [phone] Business (1) In 3 days In the event that this physician does not participate in your insurance network, please consult with your insurance company to find a nearby participating provider. Patient Education Materials: Contusion A MESSAGE TO ALL PATIENTS REGARDING OPIOIDS PRESCRIPTION OPIOIDS: WHAT YOU NEED TO KNOW Prescription opioids can be used to help relieve zqrporey-gf-tdrflv pain and are often prescribed following a [...] be struggling with addiction, tell your health urgent care and ask for guidance or call [facility]?S [employer] Helpline at [phone]-Beep. e Source: [place] (more content not included)... Normal [facility] XR Foot 3+ Views Righton XR Foot [...] in mGy = na DAP = na [facility] CNOVSPon 01-11-2023 CNOVSP Visit (SP) Office ([place]) TERRY VILLALPANDO ([id number]) 1960 M Date Time Provider Department 01/11/23 10:45 AM AILYN FRIEND During your visit today, we recorded the following information about you: Temperature Respiration Weight Height 97.3 degrees 18/minute 113.9 kg 1.816 m Ailyn Friend MD 01/11/2023 11:09 AM Signed PATIENT NAME: Terry Villalpando CLINIC NO.: [id number] ATTENDING PHYSICIAN: Ailyn Friend MD DATE OF SERVICE: January 11, 2023 Some of the elements of this note have been copied from my previous progress note dated 09/12/2022. All the information has been reviewed carefully. Dear Joleen Herrera APPLICATION ARCHITECT MANAGER, here is an update on a follow up visit on male Terry Villalpando at the clinic January 11, 2023 Diagnosis: SMM and thrombocytopenia Treatment History: March 2021, admitted to [facility] for blood loss anemia presumed to be [...] g/dL, KL ratio 11 Established care with pr 01/10/2022 HPI: Terry Villalpando is a 62 [...] or rhonchi (more content not included)... Normal [facility] CBC W Auto Differential pane l (Bld)on 01-03-2023 Basophils (Bld) [#/Vol] 0.07 10*3/uL Normal <0.11 [facility] Comment on above: Order Comment: Speci men Type: BLOOD SPECIMEN Ordering Facility: [facility] Address: [address] [place] [address] Performed By: #### 5 7021-8 #### [facility] CLIA [id number] [address] [place] [address] 34916 Basophils/100 WBC (Bld) 1.1 % Normal [facility] Comment on above: Order Comment: Speci men Type: BLOOD SPECIMEN Ordering Facility: [facility] Address: [address] [place] [address] Performed By: #### 5 7021-8 #### [facility] CLIA [id number] [address] [place] [address] 41299 Differential cell count method Nom (Bld) Auto Normal [facility] Comment on above: Order Comment: Speci men Type: BLOOD SPECIMEN Ordering Facility: [facility] Address: [address] [address] Performed By: #### 5 7021-8 #### [facility] CLIA [id number] [address] [place] [address] 30219 Eosinophils (Bld) [#/Vol] 0.36 10*3/uL Normal <0.46 [facility] Comment on above: Order Comment: Speci men Type: BLOOD SPECIMEN Ordering Facility: [facility] Address: [address] [address] Performed By: #### 5 7021-8 #### [facility] CLIA [id number] [address] [place] [address] 53083 Eosinophils/100 WBC (Bld) 5.5 % Normal [facility] Comment on above: Order Comment: Speci men Type: BLOOD SPECIMEN Ordering Facility: [facility] Address: [address] [address] Performed By: #### 5 7021-8 #### [facility] CLIA [id number] [address] [place] [address] 15565 Erythrocyte distribution width (RBC) [Ratio] 16.0 % High 11.5-15.0 [facility] Comment on above: Order Comment: Speci men Type: BLOOD SPECIMEN Ordering Facility: [facility] Address: [address] [address] Performed By: #### 5 7021-8 #### [facility] CLIA [id number] [address] [place] [address] 13648 Hematocrit (Bld) [Volume fraction] 47.0 % Normal 39.0-51.0 [facility] Comment on above: Order Comment: Speci men Type: BLOOD SPECIMEN Ordering Facility: [facility] Address: [address] [address] Performed By: #### 5 7021-8 #### [facility] CLIA [id number] [address] [place] [address] 30142 Hemoglobin (Bld) [Mass/Vol] 15.4 g/dL Normal 13.0-17.0 [facility] Comment on above: Order Comment: Speci men Type: BLOOD SPECIMEN Ordering Facility: [facility] Address: [address] [place] [address] Performed By: #### 5 7021-8 #### [facility] CLIA [id number] [address] [place] [address] 23060 Immature granulocytes (Bld) [#/Vol] 10*3/uL Normal <0.10 [facility] Comment on above: Order Comment: Speci men Type: BLOOD SPECIMEN Ordering Facility: [facility] Address: [address] [address] Performed By: #### 5 7021-8 #### [facility] CLIA [id number] [address] [place] [address] 82688 Immature granulocytes/100 WBC (Bld) 0.3 % Normal [facility] Comment on above: Order Comment: Speci men Type: BLOOD SPECIMEN Ordering Facility: [facility] Address: [address] [address] Performed By: #### 5 7021-8 #### [facility] CLIA [id number] [address] [place] [address] 13634 Lymphocytes (Bld) [#/Vol] 1.01 10*3/uL Normal 1.00-4.00 [facility] Comment on above: Order Comment: Speci men Type: BLOOD SPECIMEN Ordering Facility: [facility] Address: [address] [address] Performed By: #### 5 7021-8 #### [facility] CLIA [id number] [address] [place] [address] 09479 Lymphocytes/100 WBC (Bld) 15.5 % Normal [facility] Comment on above: Order Comment: Speci men Type: BLOOD SPECIMEN Ordering Facility: [facility] Address: [address] [address] Performed By: #### 5 7021-8 #### [facility] CLIA [id number] [address] [place] [address] 35947 MCH (RBC) [Entitic mass] 30.7 pg Normal 26.0-34.0 [facility] Comment on above: Order Comment: Speci men Type: BLOOD SPECIMEN Ordering Facility: [facility] Address: [address] [address] Performed By: #### 5 7021-8 #### [facility] CLIA [id number] [address] [place] [address] 43201 MCHC (RBC) [Mass/Vol] 32.8 g/dL Normal 30.5-36.0 [facility] Comment on above: Order Comment: Speci men Type: BLOOD SPECIMEN Ordering Facility: [facility] Address: [address] [place] [address] Performed By: #### 5 7021-8 #### [facility] CLIA [id number] [address] [place] [address] 59563 MCV (RBC) [Entitic vol] 93.6 fL Normal 80.0-100.0 [facility] Comment on above: Order Comment: Speci men Type: BLOOD SPECIMEN Ordering Facility: [facility] Address: [address] [place] [address] Performed By: #### 5 7021-8 #### [facility] CLIA [id number] [address] [place] [address] 54724 Monocytes (Bld) [#/Vol] 0.80 10*3/uL Normal <0.87 [facility] Comment on above: Order Comment: Speci men Type: BLOOD SPECIMEN Ordering Facility: [facility] Address: [address] [place] [address] Performed By: #### 5 7021-8 #### [facility] CLIA [id number] [address] [place] [address] 44599 Monocytes/100 WBC (Bld) 12.3 % Normal [facility] Comment on above: Order Comment: Speci men Type: BLOOD SPECIMEN Ordering Facility: [facility] Address: [address] [place], [place] [address] Performed By: #### 5 7021-8 #### [facility] CLIA [id number] [address] [place] [address] 49321 Neutrophils (Bld) [#/Vol] 4.26 10*3/uL Normal 1.45-7.50 [facility] Comment on above: Order Comment: Speci men Type: BLOOD SPECIMEN Ordering Facility: [facility] Address: [address] [address] Performed By: #### 5 7021-8 #### [facility] CLIA [id number] [address] [place] [address] 42593 Neutrophils/100 WBC (Bld) 65.3 % Normal [facility] Comment on above: Order Comment: Speci men Type: BLOOD SPECIMEN Ordering Facility: [facility] Address: [address] [address] Performed By: #### 5 7021-8 #### [facility] CLIA [id number] [address] [place] [address] 32002 Nucleated RBC (Bld) [#/Vol] 10*3/uL Normal <0.01 [facility] Comment on above: Order Comment: Speci men Type: BLOOD SPECIMEN Ordering Facility: [facility] Address: [address] [address] Performed By: #### 5 7021-8 #### [facility] CLIA [id number] [address] [place] [address] 95104 Nucleated RBC/100 WBC (Bld) [Ratio] 0.0 /100 WBC Normal [facility] Comment on above: Order Comment: Speci men Type: BLOOD SPECIMEN Ordering Facility: [facility] Address: [address] [address] Performed By: #### 5 7021-8 #### [facility] CLIA [id number] [address] [place] [address] 05003 Platelet mean volume (Bld) [Entitic vol] 12.1 fL Normal 9.0-12.7 [facility] Comment on above: Order Comment: Speci men Type: BLOOD SPECIMEN Ordering Facility: [facility] Address: [address] [address] Performed By: #### 5 7021-8 #### [facility] CLIA [id number] [address] [place] [address] 56325 Platelets (Bld) [#/Vol] 113 10*3/uL Low 150-400 [facility] Comment on above: Order Comment: Speci men Type: BLOOD SPECIMEN Ordering Facility: [facility] Address: [address] [place] [address] Performed By: #### 5 7021-8 #### [facility] CLIA [id number] [address] [place] [address] 92412 RBC (Bld) [#/Vol] 5.02 10*6/uL Normal 4.20-6.00 [facility] Comment on above: Order Comment: Speci men Type: BLOOD SPECIMEN Ordering Facility: [facility] Address: [address] [place] [address] Performed By: #### 5 7021-8 #### [facility] CLIA [id number] [address] [place] [address] 74050 WBC (Bld) [#/Vol] 6.52 10*3/uL Normal 3.70-11.00 [facility] Comment on above: Order Comment: Speci men Type: BLOOD SPECIMEN Ordering Facility: [facility] Address: [address] [place] [address] Performed By: #### 5 7021-8 #### [facility] CLIA [id number] [address] [place] [address] 28823 Comprehensive metabolic 2000 panelon 01-03-2023 Albumin [Mass/Vol] 4.2 g/dL Normal 3.9-4.9 [facility] Comment on above: Order Comment: Speci men Type: BLOOD SPECIMEN Ordering Facility: [facility] Address: [address] [place] [address] Performed By: #### S RAFFAELEIMM #### [facility] CLIA [id number] [address] [facility] [id number] [address] [place] ALP [Catalytic activity/Vol] 80 U/L Normal 38-113 [facility] Comment on above: Order Comment: Speci men Type: BLOOD SPECIMEN Ordering Facility: [facility] Address: [address] [id number] Performed By: #### S ERIMM #### [facility] CLIA [id number] [address] [place] [address] [place] ALT [Catalytic activity/Vol] 14 U/L Normal 10-54 [facility] Comment on above: Order Comment: Speci men Type: BLOOD SPECIMEN Ordering Facility: [facility] Address: [address] [place] [address] Performed By: #### S ERIMM #### [facility] CLIA [id number] [address] [place] [address] [place] Anion gap [Moles/Vol] 12 mmol/L Normal 9-18 [facility] Comment on above: Order Comment: Speci men Type: BLOOD SPECIMEN Ordering Facility: [facility] Address: [address] [place] [address] Performed By: #### S ERIMM #### [facility] CLIA [id number] [address] [place] [address] [place] AST [Catalytic activity/Vol] 26 U/L Normal 14-40 [facility] Comment on above: Order Comment: Speci men Type: BLOOD SPECIMEN Ordering Facility: [facility] Address: [address] [place] [address] Performed By: #### S ERIMM #### [facility] CLIA [id number] [address] [place], [place] [address] [place] Bilirubin [Mass/Vol] 1.4 mg/dL High 0.2-1.3 [facility] Comment on above: Order Comment: Speci men Type: BLOOD SPECIMEN Ordering Facility: [facility] Address: [address] [id number] Performed By: #### S ERIMM #### [facility] CLIA [id number] [address] [id number] [address] [place] Calcium [Mass/Vol] 9.9 mg/dL Normal 8.5-10.2 [facility] Comment on above: Order Comment: Speci men Type: BLOOD SPECIMEN Ordering Facility: [facility] Address: [address] [place] [address] Performed By: #### S ERIMM #### [facility] CLIA [id number] [address] [place] [address] [place] Chloride [Moles/Vol] 99 mmol/L Normal 97-105 [facility] Comment on above: Order Comment: Speci men Type: BLOOD SPECIMEN Ordering Facility: [facility] Address: [address] [place] [address] Performed By: #### S ERIMM #### [facility] CLIA [id number] [address] [place] [address] [place] CO2 [Moles/Vol] 23 mmol/L Normal 22-30 [facility] Comment on above: Order Comment: Speci men Type: BLOOD SPECIMEN Ordering Facility: [facility] Address: [address] [place] [address] Performed By: #### S ERIMM #### [facility] CLIA [id number] [address] [place] [address] [place] Creatinine [Mass/Vol] 1.25 mg/dL High 0.73-1.22 [facility] Comment on above: Order Comment: Speci men Type: BLOOD SPECIMEN Ordering Facility: [facility] Address: [address] [place] [address] Performed By: #### S ERIMM #### [facility] CLIA [id number] [address] [place] [address] [place] Creatinine and Glomerular filtration rate.predicted panel (S/P/Bld) 66 mL/min/1.73m??? Normal >=60 [facility] Comment on above: Order Comment: Speci men Type: BLOOD SPECIMEN Ordering Facility: [facility] Address: [address] [place] [address] Result Comment: Erica mated Glomerular Filtration Rate [...] accurately reflect actual GFR. Performed By: #### S ERIMM #### [facility] CLIA [id number] [address] [place] [address] [place] Glucose [Mass/Vol] 220 mg/dL High 74-99 [facility] Comment on above: Order Comment: Rayshawn damico Type: BLOOD SPECIMEN Ordering Facility: [facility] Address: [address] [place] [address] Result Comment: The [place] [employer] (ADA) provides guidance for cutoff [...] Standards of Medical Care in Diabetes 2016, [place] [employer]. Diabetes Care. 2016.39(Suppl 1). Performed By: #### S ERIMM #### [facility] CLIA [id number] [address] [place] [address] [place] Potassium [Moles/Vol] 4.0 mmol/L Normal 3.7-5.1 [facility] Comment on above: Order Comment: Rayshawn damico Type: BLOOD SPECIMEN Ordering Facility: [facility] Address: [address] [place] [address] Performed By: #### S ERIMM #### [facility] CLIA [id number] [address] [place] [address] [place] Protein [Mass/Vol] 8.1 g/dL High 6.3-8.0 [facility] Comment on above: Order Comment: Speci men Type: BLOOD SPECIMEN Ordering Facility: [facility] Address: [address] [place] [address] Performed By: #### S ERIMM #### [facility] CLIA [id number] [address] [place] [address] [place] Sodium [Moles/Vol] 134 mmol/L Low 136-144 [facility] Comment on above: Order Comment: Speci men Type: BLOOD SPECIMEN Ordering Facility: [facility] Address: [address] [place] [address] Performed By: #### S ERIMM #### [facility] CLIA [id number] [address] [place] [address] [place] Urea nitrogen [Mass/Vol] 32 mg/dL High 9-24 [facility] Comment on above: Order Comment: Speci men Type: BLOOD SPECIMEN Ordering Facility: [facility] Address: [address] [place] [address] Performed By: #### S ERIMM #### [facility] CLIA [id number] [address] [place] [address] [place] Ferritin SerPl-mCncon 2022 Ferritin [Mass/Vol] 75.6 ng/mL Normal 30.3-565.7 [facility] Comment on above: Order Comment: Speci men Type: BLOOD SPECIMEN Ordering Facility: [facility] Address: [address] [place] [address] Performed By: #### 5 0190-8, 2885-2, 2276-4 #### [facility] CLIA [id number] [address] [place] [address] [place] IMMUNOGLOBULINS GAMon 2022 IgA [Mass/Vol] 1156 mg/dL High 70-400 [facility] Comment on above: Order Comment: Speci men Type: BLOOD SPECIMEN Ordering Facility: [facility] Address: [address] Performed By: #### S ERIMM #### [facility] CLIA [id number] [address] [place] [address] [place] IgG [Mass/Vol] 1496 mg/dL Normal 700-1600 [facility] Comment on above: Order Comment: Speci men Type: BLOOD SPECIMEN Ordering Facility: [facility] Address: [address] Performed By: #### S ERIMM #### [facility] CLIA [id number] [address] [place] [address] [place] IgM [Mass/Vol] 86 mg/dL Normal 40-230 [facility] Comment on above: Order Comment: Speci men Type: BLOOD SPECIMEN Ordering Facility: [facility] Address: [address] [place], [place] [address] Performed By: #### S ERIMM #### [facility] CLIA [id number] [address] [place] [address] [place] Iron and Iron binding capaci ty panelon 01-03-2023 Iron [Mass/Vol] 112 ug/dL Normal 41-186 [facility] Comment on above: Order Comment: Speci men Type: BLOOD SPECIMEN Ordering Facility: [facility] Address: [address] Performed By: #### 5 0190-8, 2885-2, 2276-4 #### [facility] CLIA [id number] [address] [place] [address] [place] Iron binding capacity [Mass/Vol] 359 ug/dL Normal 232-386 [facility] Comment on above: Order Comment: Speci men Type: BLOOD SPECIMEN Ordering Facility: [facility] Address: [address] [place] [address] Performed By: #### 5 0190-8, 2885-2, 2276-4 #### [facility] CLIA [id number] [address] [place] [address] [place] Iron/TIBC [Molar ratio] 31.2 % Normal 15.0-57.0 [facility] Comment on above: Order Comment: Speci men Type: BLOOD SPECIMEN Ordering Facility: [facility] Address: [address] [place] [address] Performed By: #### 5 0190-8, 2885-2, 2276-4 #### [facility] CLIA [id number] [address] [place] [address] [place] KAPPA/HINOJOSA,FREE,SERon 2022 Immunoglobulin light chains.kappa.free (S) [Mass/Vol] 331.1 mg/L High 3.3-19.4 [facility] Comment on above: Order Comment: Speci men Type: BLOOD SPECIMEN Ordering Facility: [facility] Address: [address] [place] [address] Result Comment: Rare ly, increased serum free light chains levels may not be detected or accurately quantified due to prozone phenomenon or in high viscosity samples using this immunoturbidimetric assay. Correlation with other laboratory results and clinical findings is recommended. The [place] Free Light Chain was performed using the Binding Site Optilite immunoturbidimetric method. Result obtained with different assay methods or kits cannot be used interchangeably. Performed By: #### S ERIMM #### [facility] CLIA [id number] [address] [place] [address] [place] Immunoglobulin light chains.kappa/Immunogl obulin light chains.lambda (S) [Mass ratio] 15.05 High 0.26-1.65 [facility] Comment on above: Order Comment: Speci men Type: BLOOD SPECIMEN Ordering Facility: [facility] Address: [address] [place] [address] Performed By: #### S ERIMM #### [facility] CLIA [id number] [address] [place] [address] [place] Immunoglobulin light chains.lambda.free [Mass/Vol] 22.0 mg/L Normal 5.7-26.3 [facility] Comment on above: Order Comment: Speci men Type: BLOOD SPECIMEN Ordering Facility: [facility] Address: [address] [place] [address] Result Comment: Rare ly, increased serum free [...] cannot be used interchangeably. Performed By: #### S MARTHAM #### [facility] CLIA [id number] [address] [place] [address] [place] NM PET/CT WHOLE [...] bilateral feet and ankle regions likely inflammatory. Manager Coding (topogram) images:No additional findings. -- IMPRESSION: 1. [...] any questions regarding this interpretation, please call [phone]. If you are unable to reach us at the number above, please feel free to contact [facility] at [phone]. [id number] Normal [facility] PROTEIN ELECTROPHORESIS SERU M (P)on 01-03-2023 Albumin [Mass/Vol] 4.30 g/dL Normal 3.43-5.41 [facility] Comment on above: Order Comment: Rayshawn damico Type: BLOOD SPECIMEN Ordering Facility: [facility] Address: [address] [place] [address] Performed By: #### S RAJAT #### [facility] CLIA [id number] [address] [place] [address] [place] [address] [place] Alpha 1 globulin Elph [Mass/Vol] 0.28 g/dL Normal 0.18-0.43 [facility] Comment on above: Order Comment: Speci men Type: BLOOD SPECIMEN Ordering Facility: [facility] Address: [address] [place] [address] Performed By: #### S ERIMM #### [facility] CLIA [id number] [address] [place] [address] [place] Alpha 2 globulin Elph [Mass/Vol] 0.60 g/dL Normal 0.42-0.98 [facility] Comment on above: Order Comment: Speci men Type: BLOOD SPECIMEN Ordering Facility: [facility] Address: [address] [place] [address] Performed By: #### S ERIMM #### [facility] IA [id number] [address] [place] [address] [place] Beta globulin Elph [Mass/Vol] 1.76 g/dL High 0.61-1.17 [facility] Comment on above: Order Comment: Speci men Type: BLOOD SPECIMEN Ordering Facility: [facility] Address: [address] [place] [address] Performed By: #### S ERIMM #### [facility] IA [id number] [address] [place] [address] [place] Gamma globulin Elph [Mass/Vol] 1.16 g/dL Normal 0.53-1.51 [facility] Comment on above: Order Comment: Speci men Type: BLOOD SPECIMEN Ordering Facility: [facility] Address: [address] [place] [address] Performed By: #### S ERIMM #### [facility] CLIA [id number] [address] [place] [address] [place] INTERPRETATION COMMENT FOR PROTEIN ELECTROPHORESIS See separate immunofixation report for characterization of monoclonal gammopathy. Normal [facility] Comment on above: Order Comment: Speci men Type: BLOOD SPECIMEN Ordering Facility: [facility] Address: [address] [place] [address] Performed By: #### S ERIMM #### [facility] CLIA [id number] [address] [place] [address] [place] M-PROTEIN LOCATION Beta Fraction 1 [facility] above: Order Comment: Speci men Type: BLOOD SPECIMEN Ordering Facility: [facility] Address: [address] [place] [address] Performed By: #### S ERIMM #### [facility] CLIA [id number] [address] [place] [address] [place] Protein Fractions [Interp] An M protein is identified on protein electrophoresis. Abnormal No definitive M protein is identified on protein electrophore sis. [facility] Comment on above: Order Comment: Speci men Type: BLOOD SPECIMEN Ordering Facility: [facility] Address: [address] [place] [address] Performed By: #### S ERIMM #### [facility] CLIA [id number] [address] [place] [address] [place] Protein.monoclonal Elph [Mass/Vol] 0.73 g/dL High <=0.00 [facility] Comment on above: Order Comment: Speci men Type: BLOOD SPECIMEN Ordering Facility: [facility] Address: [address] [place] [address] Performed By: #### S ERIMM #### [facility] CLIA [id number] [address] [place] [address] [place] SPE STAFF REVIEW Reviewed by Thalia Paniagua MD [facility] Comment on above: Order Comment: Speci men Type: BLOOD SPECIMEN Ordering Facility: [facility] Address: [address] [place] [address] Performed By: #### S ERIMM #### [facility] CLIA [id number] [address] [place] [address] [place] Prot SerPl-mCncon 01-03-2023 Protein [Mass/Vol] 7.9 g/dL Normal 6.3-8.0 [facility] Comment on above: Order Comment: Speci men Type: BLOOD SPECIMEN Ordering Facility: [facility] Address: [place] [address] Performed By: #### 5 0190-8, 2885-2, 2276-4 #### [facility] CLIA [id number] [address] [place] [address] [place] Protein [Mass/Vol] 8.0 g/dL Normal 6.3-8.0 [facility] Comment on above: Order Comment: Speci men Type: BLOOD SPECIMEN Ordering Facility: [facility] Address: [place] [place] [address] Performed By: #### S EREMMAM #### [facility] CLIA [id number] [address] [place] [address] [place] FREE T4on 08-30-2022 Free T4 [Mass/Vol] 1.70 ng/dL Critically high 0.76-1.46 [facility] Comment on above: Performed By: #### F T4, PSAD #### [facility] [address] [place] [address] Dr. Sonya Mendoza LIPID PROFILEon 08-30-2022 CHOL-HDL RATIO NORM SEE BELOW Normal [facility] Comment on above: Result Comment: 3.3 - 4.4 LOW RISK 4.4 - 7.1 AVERAGE RISK 7.1 - 11.0 MODERATE RISK >11.0 HIGH RISK Performed By: #### I NFLUAB #### [facility] [address] [address] [address] Sonya Mendoza Cholesterol [Mass/Vol] 113 mg/dL Normal <=200 [facility] Comment on above: Performed By: #### I NFLUAB #### [facility] [address] [address] [address] Sonya Mendoza Cholesterol in HDL [Mass/Vol] 33 mg/dL Critically low 40-60 [facility] Comment on above: Performed By: #### I NFLUAB #### [facility] [address] [address] [address] Sonya Mendoza Cholesterol in LDL [Mass/Vol] 63.2 mg/dL Normal [facility] Comment on above: Performed By: #### I NFLUAB #### [facility] [address] [address] [address] Sonya Mendoza Cholesterol.total/Cho lesterol in HDL [Mass ratio] 3.4 {ratio} Normal [facility] Comment on above: Performed By: #### I NFLUAB #### [facility] [address] [address] [address] Sonya Mendoza HDL NORMAL > or = 60 mg/dl - LO W CARDIOVASCULAR RISK <40 mg/dl - HIGH CARDIOVASCULAR RISK Normal [facility] Comment on above: Performed By: #### I NFLUAB #### [facility] [address] [place] [address] Dr. Sonya Mendoza LDL CALC NORMAL SEE BELOW Normal [facility] Comment on above: Result Comment: <100 mg/dl OPTIMAL 100 - 129 mg/dl NEAR OR ABOVE OPTIMAL 130 - 159 mg/dl BORDERLINE HIGH 160 - 189 mg/dl HIGH >190 mg/dl VERY HIGH Performed By: #### I NFLUAB #### [facility] [address] [address] [address] Sonya Mendoza Triglyceride [Mass/Vol] 84 mg/dL Normal <=150 [facility] Comment on above: Performed By: #### I NFLUAB #### [facility] [address] [address] [address] Sonya Mendoza VLDL CALC 16.8 mg/dL Normal [facility] Comment on above: Performed By: #### I NFLUAB #### [facility] [address] [address] [address] Sonya Mendoza MICROALBUMIN, RAND URon 08-20 mALB <1.3 Normal <=30.0 [facility] Comment on above: Performed By: #### F T4, PSAD #### [facility] [address] [address] [address] Sonya Mendoza PROF 14(COMP METB)on 023 Albumin [Mass/Vol] 3.8 g/dL Normal 3.4-5.0 [facility] Comment on above: Performed By: #### I NFLUAB #### [facility] [address] [place] [address] Dr. Sonya Mendoza Albumin/Globulin [Mass ratio] 0.7 {ratio} Normal [facility] Comment on above: Performed By: #### I NFLUAB #### [facility] [address] [address] [address] Sonya Mendoza ALP [Catalytic activity/Vol] 92 U/L Normal 46-116 [facility] Comment on above: Performed By: #### I NFLUAB #### [facility] [address] [place] [address] Dr. Sonya Mendoza ALT [Catalytic activity/Vol] 21 U/L Normal 16-63 [facility] Comment on above: Performed By: #### I NFLUAB #### [facility] [address] [place] [address] Dr. Sonya Mendoza Anion gap [Moles/Vol] 11.7 mmol/L Normal [facility] Comment on above: Performed By: #### I NFLUAB #### [facility] [address] [place] [address] Dr. Sonya Mendoza AST [Catalytic activity/Vol] 18 U/L Normal 15-37 [facility] Comment on above: Performed By: #### I NFLUAB #### [facility] [address] [place] [address] Dr. Sonya Mendoza Bilirubin [Mass/Vol] 0.9 mg/dL Normal 0.2-1.0 [facility] Comment on above: Performed By: #### I NFLUAB #### [facility] [address] [place] [address] Dr. Sonya Mendoza Calcium [Mass/Vol] 9.2 mg/dL Normal 8.5-10.1 [facility] Comment on above: Performed By: #### I NFLUAB #### [facility] [address] [place] [address] Dr. Sonya Mendoza Chloride [Moles/Vol] 102 mmol/L Normal 98-107 [facility] Comment on above: Performed By: #### I NFLUAB #### [facility] [address] [place] [address] Dr. Sonya Mendoza CO2 [Moles/Vol] 30.5 mmol/L Normal 21.0-32.0 [facility] Comment on above: Performed By: #### I NFLUAB #### [facility] [address] [place] [address] Dr. Sonya Mendoza Creatinine [Mass/Vol] 1.48 mg/dL Critically high 0.70-1.30 [facility] Comment on above: Performed By: #### I NFLUAB #### [facility] [address] [place] [address] Dr. Sonya Mendoza EGFR-AF [place] 59 mL/min/1.73m2 Critically low >=60 [facility] Comment on above: Performed By: #### I NFLUAB #### [facility] [address] [place] [address] Dr. Sonya Mendoza EGFR-NON AF [place] 48 mL/min/1.73m2 Critically low >=60 [facility] Comment on above: Performed By: #### I NFLUAB #### [facility] [address] [place] [address] Dr. Sonya Mendoza Globulin (S) [Mass/Vol] 5.5 g/dL Normal [facility] Comment on above: Performed By: #### I NFLUAB #### [facility] [address] [place] [address] Dr. Sonya Mendoza Glucose [Mass/Vol] 189 mg/dL Critically high 74-106 [facility] Comment on above: Performed By: #### I NFLUAB #### [facility] [address] [place] [address] Dr. Sonya Mendoza Potassium [Moles/Vol] 4.2 mmol/L Normal 3.5-5.1 [facility] Comment on above: Performed By: #### I NFLUAB #### [facility] [address] [place] [address] Dr. Sonya Mendoza Protein [Mass/Vol] 9.3 g/dL Critically high 6.4-8.2 [facility] Comment on above: Performed By: #### I NFLUAB #### [facility] [address] [place] [address] Dr. Sonya Mendoza Sodium [Moles/Vol] 140 mmol/L Normal 136-145 [facility] Comment on above: Performed By: #### I NFLUAB #### [facility] [address] [place] [address] Dr. Sonya Mendoza Urea nitrogen [Mass/Vol] 31.0 mg/dL Critically high 7.0-18.0 [facility] Comment on above: Performed By: #### I NFLUAB #### [facility] [address] [place] [address] Dr. Sonya Mendoza Urea nitrogen/Creatinine [Mass ratio] 20.9 mg/mg Normal [facility] Comment on above: Performed By: #### I NFLUAB #### [facility] [address] [place] [address] Dr. Sonya Mendoza TSHon 08-30-2022 TSH 0.586 uIU/mL Normal 0.358-3.740 [facility] Comment on above: Performed By: #### I NFLUAB #### [facility] [address] [place] [address] Dr. Sonya Mendoza UA RANDOM W/MICROSCOPICon BACTERIA TRACE Abnormal NONE SEEN [facility] Comment on above: Performed By: #### U AMIC #### [facility] [address] [place] [address] Dr. Sonya Mendoza Bilirubin Ql (U) Negative Normal NEGATIVE The [facility] Comment on above: Performed By: #### U AMIC #### [facility] [address] [place] [address] Dr. Sonya Mendoza CAST NONE SEEN Normal NONE SEEN [facility] Comment on above: Performed By: #### U AMIC #### [facility] [address] [place] [address] Dr. Sonya Mendoza Clarity (U) CLEAR Normal CLEAR [facility] Comment on above: Performed By: #### U AMIC #### [facility] [address] [address] [address] Sonya Mendoza Color (U) LT. YELLOW Normal YELLOW [facility] Comment on above: Performed By: #### U AMIC #### [facility] [address] [address] [address] Sonya Mendoza Crystals LM Nom (Urine sed) NONE SEEN Normal NONE SEEN [facility] Comment on above: Performed By: #### U AMIC #### [facility] [address] [address] [address] Sonya Mendoza Epithelial cells LM Ql (Urine sed) NONE SEEN Normal NONE SEEN /RARE [facility] Comment on above: Performed By: #### U AMIC #### [facility] [address] [place] [address] Dr. Sonya Mendoza Glucose Ql (U) >1000 Abnormal NEGATIVE [facility] Comment on above: Performed By: #### U AMIC #### [facility] [address] [address] [address] Sonya Mendoza Hemoglobin Ql (U) TRACE-INTACT Abnormal NEGATIVE [facility] Comment on above: Performed By: #### U AMIC #### [facility] [address] [place] [address] Dr. Sonya Mendoza Ketones Ql (U) Negative Normal NEGATIVE [facility] Comment on above: Performed By: #### U AMIC #### [facility] [address] [address] [address] Sonya Mendoza LEUKOCYTES Negative Normal NEGATIVE [facility] Comment on above: Performed By: #### U AMIC #### [facility] [address] [address] [address] Sonya Mendoza MUCOUS NONE SEEN Normal NONE SEEN [facility] Comment on above: Performed By: #### U AMIC #### [facility] [address] [place] [address] Dr. Sonya Mendoza Nitrite Ql (U) Negative Normal NEGATIVE [facility] Comment on above: Performed By: #### U AMIC #### [facility] [address] [address] [address] Sonya Mendoza pH (U) 5.5 [pH] Normal 5-9 [facility] Comment on above: Performed By: #### U AMIC #### [facility] [address] [address] [address] Sonya Mendoza RBC 2-5 Abnormal 0-2 [facility] Comment on above: Performed By: #### U AMIC #### [facility] [address] [address] [address] Sonya Mendoza SPEC GRAVITY <=1.005 Abnormal 1.005-<=1.02 5 [facility] Comment on above: Performed By: #### U AMIC #### [facility] [address] [place] [address] Dr. Sonya Mendoza UA PROTEIN Negative Normal NEGATIVE/ TRACE [facility] Comment on above: Performed By: #### U AMIC #### [facility] [address] [address] [address] Sonya Mendoza Urobilinogen Qn (U) 0.2 {Melba'U}/dL Normal 0.2 - 1. 0 [facility] Comment on above: Performed By: #### U AMIC #### [facility] [address] [place] [address] Dr. Sonya Mendoza WBC NONE SEEN Normal NONE SEEN [facility] Comment on above: Performed By: #### U AMIC #### [facility] [address] [place] [address] Dr. Sonay Mendoza ECHOCARDIO M/2D COMPLETEon 0 08-22-2022 ECHOCARDIO M/2D COMPLETE Patient: TERRY VILLALPANDO Exam Date: 08/22/2022 : 1960 Gender:M Ordering : JENNIFER HERRERA CNP Admission #: [id number] Family : Order #: [id number] CLICK HERE TO VIEW EXAM ECHOCARDIOGRAM REPORT [...] M.D. on 08/23/2022 at 16:45 Normal [facility] BNPon 08-21-2022 Natriuretic peptide B (Bld) [Mass/Vol] 916.0 pg/mL Critically high <=900.0 [facility] Comment on above: Performed By: #### F T4, PSAD #### [facility] [address] [place] [address] Dr. Sonya Mendoza CBC AUTO DIFFon 08-21-2022 BASO # 0.1 103/ul Normal 0.0-0.1 [facility] Comment on above: Performed By: #### I NFLUAB #### [facility] [address] [address] [address] Sonya Mendoza Basophils/100 WBC (Bld) 1.0 % Normal 0.2-2.0 [facility] Comment on above: Performed By: #### I NFLUAB #### [facility] [address] [address] [address] Sonya Mendoza EO # 0.4 103/ul Normal 0.0-0.7 [facility] Comment on above: Performed By: #### I NFLUAB #### [facility] [address] [address] [address] Sonya Mendoza Eosinophils/100 WBC (Bld) 5.2 % Normal 0.9-7.0 [facility] Comment on above: Performed By: #### I NFLUAB #### [facility] [address] [place] [address] Dr. Sonya Mendoza Erythrocyte distribution width (RBC) [Ratio] 16.3 % Critically high 11.0-15.0 [facility] Comment on above: Performed By: #### I NFLUAB #### [facility] [address] [place] [address] Dr. Sonya Mendoza Hematocrit (Bld) [Volume fraction] 48.2 % Normal 42.0-54.0 [facility] Comment on above: Performed By: #### I NFLUAB #### [facility] [address] [place] [address] Dr. Sonya Mendoza Hemoglobin (Bld) [Mass/Vol] 15.1 g/dL Normal 14.0-18.0 [facility] Comment on above: Performed By: #### I NFLUAB #### [facility] [address] [place] [address] Dr. Sonya Mendoza IG # 0.02 10e3/ul Normal 0.00-0.03 [facility] Comment on above: Performed By: #### I NFLUAB #### [facility] [address] [place] [address] Dr. Sonya Mendoza IG % 0.3 % Normal 0.0-0.5 [facility] Comment on above: Performed By: #### I NFLUAB #### [facility] [address] [place] [address] Dr. Sonya Mendoza LYMPH # 0.8 103/ul Critically low 1.2-3.8 [facility] Comment on above: Performed By: #### I NFLUAB #### [facility] [address] [place] [address] Dr. Sonya Mendoza Lymphocytes/100 WBC (Bld) 11.4 % Critically low 20.5-60.0 [facility] Comment on above: Performed By: #### I NFLUAB #### [facility] [address] [place] [address] Dr. Sonya Mendoza MANUAL DIFF REQ NO Normal [facility] Comment on above: Performed By: #### I NFLUAB #### [facility] [address] [place] [address] Dr. Sonya Mendoza MCH (RBC) [Entitic mass] 28.9 pg Normal 25.9-34.0 [facility] Comment on above: Performed By: #### I NFLUAB #### [facility] [address] [place] [address] Dr. Sonya Mendoza MCHC (RBC) [Mass/Vol] 31.3 g/dL Normal 29.9-35.2 [facility] Comment on above: Performed By: #### I NFLUAB #### [facility] [address] [place] [address] Dr. Sonya Mendoza MCV (RBC) [Entitic vol] 92.2 fL Normal 80.0-94.0 [facility] Comment on above: Performed By: #### I NFLUAB #### [facility] [address] [place] [address] Dr. Sonya Mendoza MONO # 0.7 103/ul Normal 0.3-0.8 [facility] Comment on above: Performed By: #### I NFLUAB #### [facility] [address] [place] [address] Dr. Sonya Mendoza Monocytes/100 WBC (Bld) 10.1 % Normal 1.7-12.0 [facility] Comment on above: Performed By: #### I NFLUAB #### [facility] [address] [place] [address] Dr. Sonya Mendoza NEUT # 4.8 103/ul Normal 1.4-6.5 [facility] Comment on above: Performed By: #### I NFLUAB #### [facility] [address] [place] [address] Dr. Sonya Mendoza Neutrophils/100 WBC (Bld) 72.0 % Normal 43.0-75.0 [facility] Comment on above: Performed By: #### I NFLUAB #### [facility] [address] [place] [address] Dr. Sonya Mendoza Platelet mean volume (Bld) [Entitic vol] 11.5 fL Normal 9.5-13.5 [facility] Comment on above: Performed By: #### I NFLUAB #### [facility] [address] [place] [address] Dr. Sonya Mendoza PLT 144 103/ul Critically low 150-450 [facility] Comment on above: Performed By: #### I NFLUAB #### [facility] [address] [address] [address] Sonya Mendoza RBC 5.23 106/ul Normal 4.70-6.10 [facility] Comment on above: Performed By: #### I NFLUAB #### [facility] [address] [place] [address] Dr. Sonya Mendoza WBC 6.7 103/ul Normal 4.0-11.0 [facility] Comment on above: Performed By: #### I NFLUAB #### [facility] [address] [place] [address] Dr. Sonya Mendoza DIGOXINon 08-21-2022 DIG 0.4 ng/mL Critically low 0.9-2.0 [facility] Comment on above: Performed By: #### F T4, PSAD #### [facility] [address] [place] [address] Dr. Sonya Mendoza GLYCOHEMOGLOBIN A1Con 2022 ADA RECOMMENDATION SEE BELOW Normal [facility] Comment on above: Result Comment: ADA RECOMMENDED LIMIT 4.0 - 6.0 ADA THERAPEUTIC TARGET < 7.0 ACTION SUGGESTED > 7.0 Performed By: #### F T4, PSAD #### [facility] [address] [place] [address] Dr. Sonya Mendoza Glucose [Mass/Vol] 206 mg/dL Normal [facility] Comment on above: Performed By: #### F T4, PSAD #### [facility] [address] [place] [address] Dr. Sonya Mendoza HbA1c (Bld) [Mass fraction] 8.8 % Critically high 4.5-6.2 [facility] Comment on above: Performed By: #### F T4, PSAD #### [facility] [address] [place], [place] [address] Dr. Sonya Mendoza LDHon 08-21-2022 LDH 496 U/L Critically high 85-227 [facility] Comment on above: Performed By: #### F T4, PSAD #### [facility] [address] [place], [place] [address] Dr. Sonya Mendoza Transplant SW Assessment Upd [...] [facility] Flowsheet 4.8 1 MG-Cardiol ogy-CM C [facility] [address] [place] Work Phone: [facility] Flowsheet 9600 1 MG-Cardiol ogy-CM C [facility] [address] [place] Work Phone: [facility] Flowsheet 4.9 1 MG-Cardiol ogy-CM C [facility] [address] [...] use LDH; Status:Active - Retrospective Authorization; Requested for:15Aug2022; Chronic systolic heart failure Complete Blood Count + Differential; Status:Active - Retrospective Authorization; Requested for:15Aug2022; Diabetes mellitus Hemoglobin A1C; Status:Active - Retrospective Authorization; Requested for:15Aug2022; Encounter for monitoring digoxin therapy Digoxin Level, [...] concerns, please contact the [facility] office at [phone]. If it is after hours and it is an emergency, please page the [facility] pager by calling [phone] and ask them to page [phone]. Please give the nylon machine operator your return number in order for the team to reach you. -Follow up in 6 months with SW. -Schedule an echo (heart ultrasound). Call [phone] or schedule at the front maker. -Get labs drawn today (CBC, CMP, BNP, [...] device. 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 Lay Vaca Mr. 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 He is co-managed by the team at [facility] (Dr Yi). Has not been seen by [facility] in a couple of years he [...] (530.81) (K2 (more content not included)... Normal [employer] Tobacco Screening.on 023 Fall risk assessment a) No falls within the last year SW-Uvxgfzxgvj-GC [facility] [address] [place] Work Phone: Tobacco use status [facility] b) No NS-Cctjilgnxw-EI [facility] [address] [place] Work Phone: GLYCOHEMOGLOBIN A1Con 2022 ADA RECOMMENDATION SEE BELOW Normal [facility] Comment on above: Result Comment: ADA RECOMMENDED LIMIT 4.0 - 6.0 ADA THERAPEUTIC TARGET < 7.0 ACTION SUGGESTED > 7.0 Performed By: #### A 1C #### [facility] [address] [place] [address] Dr. Sonya Mendoza Glucose [Mass/Vol] 169 mg/dL Normal [facility] Comment on above: Performed By: #### A 1C #### [facility] [address] [address] [address] Sonya Mendoza HbA1c (Bld) [Mass fraction] 7.5 % Critically high 4.5-6.2 [facility] Comment on above: Performed By: #### A 1C #### [facility] [address] [address] [address] Sonya Mendoza PROF CHEM 8 (BAS METB)on Anion gap [Moles/Vol] 12.3 mmol/L Normal [facility] Comment on above: Performed By: #### I NFLUAB #### [facility] [address] [address] [address] Sonya Mendoza Calcium [Mass/Vol] 9.2 mg/dL Normal 8.5-10.1 [facility] Comment on above: Performed By: #### I NFLUAB #### [facility] [address] [address] [address] Sonya Mendoza Chloride [Moles/Vol] 101 mmol/L Normal 98-107 [facility] Comment on above: Performed By: #### I NFLUAB #### [facility] [address] [address] [address] Sonya Mendoza CO2 [Moles/Vol] 27.0 mmol/L Normal 21.0-32.0 [facility] Comment on above: Performed By: #### I NFLUAB #### [facility] [address] [place] [address] Dr. Sonya Mendoza Creatinine [Mass/Vol] 1.27 mg/dL Normal 0.70-1.30 [facility] Comment on above: Performed By: #### I NFLUAB #### [facility] [address] [place] [address] Dr. Sonya Mendoza EGFR-AF [place] >60 Normal >=60 [facility] Comment on above: Performed By: #### I NFLUAB #### [facility] [address] [place] [address] Dr. Sonya Mendoza EGFR-NON AF [place] 58 mL/min/1.73m2 Critically low >=60 [facility] Comment on above: Performed By: #### I NFLUAB #### [facility] [address] [address] [address] Sonya Mendoza Glucose [Mass/Vol] 249 mg/dL Critically high 74-106 [facility] Comment on above: Performed By: #### I NFLUAB #### [facility] [address] [address] [address] Sonya Mendoza Potassium [Moles/Vol] 4.3 mmol/L Normal 3.5-5.1 [facility] Comment on above: Performed By: #### I NFLUAB #### [facility] [address] [address] [address] Sonya Mendoza Sodium [Moles/Vol] 136 mmol/L Normal 136-145 [facility] Comment on above: Performed By: #### I NFLUAB #### [facility] [address] [address] [address] Sonya Mendoza Urea nitrogen [Mass/Vol] 31.0 mg/dL Critically high 7.0-18.0 [facility] Comment on above: Performed By: #### I NFLUAB #### [facility] [address] [address] [address] Sonya Mendoza Urea nitrogen/Creatinine [Mass ratio] 24.4 mg/mg Normal [facility] Comment on above: Performed By: #### I NFLUAB #### [facility] [address] [place] [address] Dr. Sonya Mendoza Covid-19 PCR ([facility])on 03-22 SARS-CoV-2 (COVID-19) RNA GALILEO+probe Ql (Unsp spec) Not detected Normal NOT DETECTED [facility] Comment on above: Result Comment: When [...] for this test is supported by the [place] of Health and Human Service's declaration that [...] Performed By: #### F T4, PSAD #### [facility] [address] [place] [address] Dr. Sonya Mendoza INFLUENZA A AND B AGon 04-01 INFLUANEGH SEE BELOW Normal [facility] Comment on above: Result Comment: Nega tive for Flu A protein angiten. Infection due to Flu A cannot be ruled out. Flu A angiten in the sample may be below the detection limit of the test. Performed By: #### I NFLUAB #### [facility] [address] [place] [address] Dr. Sonya Mendo[facility] SEE BELOW Normal [facility] Comment on above: Result Comment: Nega tive for Flu B protein antigen. Infection due to Flu B cannot be ruled out. Flu B antigen in the sample may be below the detection limit of the test. Performed By: #### I NFLUAB #### [facility] [address] [place] [address] Dr. Sonya Mendoza INFLUENZA A AG Negative Normal NEGATIVE SEE COMMENT [facility] Comment on above: Performed By: #### I NFLUAB #### [facility] [address] [place] [address] Dr. Sonya Mendoza INFLUENZA B AG Negative Normal NEGATIVE SEE COMMENT [facility] Comment on above: Performed By: #### I NFLUAB #### [facility] [address] [place] [address] Dr. Sonya Mendoza INTERNAL CONTROLS Within Normal Limits Normal Wi thin Normal Limits [facility] Comment on above: Performed By: #### I NFLUAB #### [facility] [address] [place] [address] Dr. Sonya Mendoza XR CHEST 1 Von [...] by: CHADWICK SHERMAN Date: 2022-04-01 12:13 Normal [facility] FREE T4on 01-30-2022 Free T4 [Mass/Vol] 1.32 ng/dL Normal 0.76-1.46 [facility] Comment on above: Performed By: #### I NFLUAB #### [facility] [address] [place] [address] Dr. Sonya Mendoza GLYCOHEMOGLOBIN A1Con 2021 ADA RECOMMENDATION SEE BELOW Normal [facility] Comment on above: Result Comment: ADA RECOMMENDED LIMIT 4.0 - 6.0 ADA THERAPEUTIC TARGET < 7.0 ACTION SUGGESTED > 7.0 Performed By: #### F T4, PSAD #### [facility] [address] [place] [address] Dr. Sonya Mendoza Glucose [Mass/Vol] 220 mg/dL Normal [facility] Comment on above: Performed By: #### F T4, PSAD #### [facility] [address] [place] [address] Dr. Sonya Mendoza HbA1c (Bld) [Mass fraction] 9.3 % Critically high 4.5-6.2 [facility] Comment on above: Performed By: #### F T4, PSAD #### [facility] [address] [place] [address] Dr. Sonya Mendoza PROF CHEM 8 (BAS METB)on Anion gap [Moles/Vol] 16.9 mmol/L Normal [facility] Comment on above: Performed By: #### F T4, PSAD #### [facility] [address] [place] [address] Dr. Sonya Mendoza Calcium [Mass/Vol] 8.6 mg/dL Normal 8.5-10.1 [facility] Comment on above: Performed By: #### F T4, PSAD #### [facility] [address] [place] [address] Dr. Sonya Mendoza Chloride [Moles/Vol] 101 mmol/L Normal 98-107 [facility] Comment on above: Performed By: #### F T4, PSAD #### [facility] [address] [place] [address] Dr. Sonya Mendoza CO2 [Moles/Vol] 23.5 mmol/L Normal 21.0-32.0 [facility] Comment on above: Performed By: #### F T4, PSAD #### [facility] [address] [address] [address] Sonya Mendoza Creatinine [Mass/Vol] 1.75 mg/dL Critically high 0.70-1.30 [facility] Comment on above: Performed By: #### F T4, PSAD #### [facility] [address] [place] [address] Dr. Sonya Mendoza EGFR-AF [place] 48 mL/min/1.73m2 Critically low >=60 [facility] Comment on above: Performed By: #### F T4, PSAD #### [facility] [address] [place] [address] Dr. Sonya Mendoza EGFR-NON AF [place] 40 mL/min/1.73m2 Critically low >=60 [facility] Comment on above: Performed By: #### F T4, PSAD #### [facility] [address] [address] [address] Sonya Mendoza Glucose [Mass/Vol] 292 mg/dL Critically high 74-106 [facility] Comment on above: Performed By: #### F T4, PSAD #### [facility] [address] [place] [address] Dr. Sonya Mendoza Potassium [Moles/Vol] 4.4 mmol/L Normal 3.5-5.1 [facility] Comment on above: Performed By: #### F T4, PSAD #### [facility] [address] [address] [address] Sonya Mendoza Sodium [Moles/Vol] 137 mmol/L Normal 136-145 [facility] Comment on above: Performed By: #### F T4, PSAD #### [facility] [address] [place] [address] Dr. Sonya Mendoza Urea nitrogen [Mass/Vol] 28.0 mg/dL Critically high 7.0-18.0 [facility] Comment on above: Performed By: #### F T4, PSAD #### [facility] [address] [place], [place] [address] Dr. Sonya Mendoza Urea nitrogen/Creatinine [Mass ratio] 16.0 mg/mg Normal [facility] Comment on above: Performed By: #### F T4, PSAD #### [facility] [address] [place], [place] [address] Dr. Sonya Mendoza TSHon 01-30-2022 TSH 4.314 uIU/mL Critically high 0.358-3.740 [facility] Comment on above: Performed By: #### F T4, PSAD #### [facility] [address], [place] [address] Dr. Sonya Mendoza LVAD Flowsheeton 01-25-2022 LVAD Flowsheet 5.4 1 MG-Cardiol ogy-CM [facility] [address] [place] Work Phone: LVAD Flowsheet 9600 1 MG-Cardiol ogy-CM [facility] [address] [place] Work Phone: LVAD Flowsheet 4.7 1 MG-Cardiol ogy-CM [facility] [address] [place] Work Phone: LVAD Flowsheet 6.4 1 MG-Cardiol ogy-CM [facility] [address] [place] Work Phone: LVAD Flowsheet POWER DISCONNECT and LOW VOLTAGE ADVISORY alarms; VAD OFF alarm on 01/10/2022 WQ-Obdhqauscu-XA [facility] [address] [place] Work Phone: Office Visit [...] concerns, please contact the [facility]AD office at [phone], option 3 or the direct line at [phone]. Please state that you are an LVAD patient. If it is after hours and it is an emergency, please page the [facility]AD pager by calling [phone] #[phone]. -Follow up in on May 02 at 1:[address] [place] in [place] [address]. -Start lisinopril 5 mg daily for blood [...] device. 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 Lay Vaca Mr. 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 He is co-managed by the team at [facility] (Dr Yi). Has not been seen by [facility] in a couple of years he [...] therapy (V58.83, (more content not included)... Normal [employer] Tobacco Screening.on 022 Fall risk assessment a) No falls within the last year SM-Ofpiuerzle-IO [facility] [address] [place] Work Phone: Tobacco use status CPHS b) No RG-Ffgqtkqqed-VK [facility] [address] [place] Work Phone: Laboratory - Chemistry and C hemistry - challengeon 12-28-2021 Albumin BCP dye [Mass/Vol] 4.2 g/dL 3.4 - 5.0 XV-Ovvatntxek-WQ [facility] [address] [place] Work Phone: ALP [Catalytic activity/Vol] 77 U/L 33 - 136 WI-Oobceoocin-DW [facility] [address] [place] Work Phone: ALT With P-5'-P [Catalytic activity/Vol] 14 U/L 10 - 52 XV-Nxjataxbfj-VA [facility] [address] [place] Work Phone: Comment on above: Patients treated wit h Sulfasalazine may generate falsely decreased results for ALT. Anion gap [Moles/Vol] 16 mmol/L 10 - 20 MG- Cardiology-CM [facility] [address] [place] Work Phone: AST With P-5'-P [Catalytic activity/Vol] 22 U/L 9 - 39 FD-Jlljhdcily-DG [facility] [address] [place] Work Phone: Bilirubin [Mass/Vol] 1.2 mg/dL 0.0 - 1.2 MG-C ardiology-CM [facility] [address] [place] Work Phone: Calcium [Mass/Vol] 9.2 mg/dL 8.6 - 10.6 MG-Car diology-CM [facility] [address] [place] Work Phone: Chloride [Moles/Vol] 100 mmol/L 98 - 107 MG-C ardiology-CM [facility] [address] [place] Work Phone: CO2 [Moles/Vol] 21 mmol/L 21 - 32 MG-Cardio logy-CM [facility] [address] [place] Work Phone: Creatinine [Mass/Vol] 1.26 mg/dL See Below MG- Cardiology-CM [facility] [address] [place] Work Phone: Comment on above: Reference Range: 0.5 0 - 1.30 Glucose [Mass/Vol] 233 mg/dL above high threshold 74 - 99 AX-Qtjokjdzwy-SC [facility] [address] [place] Work Phone: LDH [Catalytic activity/Vol] 410 U/L above high threshold 84 - 246 UG-Xupxnazfgj-WG [facility] [address] [place] Work Phone: Potassium [Moles/Vol] 5.1 mmol/L 3.5 - 5.3 MG- Cardiology-CM [facility] [address] [place] Work Phone: Protein [Mass/Vol] 8.1 g/dL 6.4 - 8.2 MG-Car diology-CM [facility] [address] [place] Work Phone: Sodium [Moles/Vol] 132 mmol/L below low threshold 136 - 145 FO-Fdszacpben-OI [facility] [address] [place] Work Phone: Urea nitrogen [Mass/Vol] 24 mg/dL above high threshold 6 - 23 AG-Elalezqpio-QN [facility] [address] [place] Work Phone: Glucose [Mass/Vol] 167 mg/dL above high threshold 74 - 99 TA-Cycovhjwsg-QC [facility] [address] [place] Work Phone: Laboratory - Coagulationon 0 9-08-2022 aPTT Coag (PPP) [Time] 37 s 26 - 39 FE-Qfkxxzhrea-QD [facility] [address] [place] Work Phone: Comment on above: THE APTT IS NO LONGE R USED FOR MONITORING UNFRACTIONATED HEPARIN THERAPY. FOR MONITORING HEPARIN THERAPY, USE THE HEPARIN ASSAY. INR Coag (PPP) [Relative time] 2.7 {INR} above high threshold 0.9 - 1.1 OR-Vxwlhkrrep-KS [facility] [address] [place] Work Phone: PT Coag (PPP) [Time] 31.1 s above high threshold 9.8 - 13.4 LK-Stsznykwri-KL [facility] [address] [place] Work Phone: Laboratory - Hematology and Cell countson 12-28-2021 Erythrocyte distribution width (RBC) [Ratio] 17.0 % above high threshold See Below NE-Eggwwfvboa-BS [facility] [address] [place] Work Phone: Comment on above: Reference Range: 11. 5 - 14.5 Hematocrit (Bld) [Volume fraction] 45.4 % See Below MG-Cardiology- CM [facility] [address] [place] Work Phone: Comment on above: Reference Range: 41. 0 - 52.0 Hemoglobin (Bld) [Mass/Vol] 13.7 g/dL See Below RO-Usuvmjqqzl-KS [facility] [address] [place] Work Phone: Comment on above: Reference Range: 13. 5 - 17.5 MCHC (RBC) [Mass/Vol] 30.2 g/dL below low threshold See Below DX-Lrkwbggifl-AK [facility] [address] [place] Work Phone: Comment on above: Reference Range: 32. 0 - 36.0 MCV (RBC) [Entitic vol] 88 fL 80 - 100 DI-Udleeguior-JA [facility] [address] [place] Work Phone: Platelets (Bld) [#/Vol] 164 10*3/uL 150 - 450 JC-Nwnesrwrzp-NQ [facility] [address] [place] Work Phone: RBC (Bld) [#/Vol] 5.18 {x10E12/L} See Below MG -Cardiology-CM [facility] [address] [place] Work Phone: Comment on above: Reference Range: 4.5 0 - 5.90 WBC (Bld) [#/Vol] 7.5 10*3/uL 4.4 - 11.3 MG-Car diology-CM [facility] [address] [place] Work Phone: Magnesium, Serumon Magnesium [Mass/Vol] 2.15 mg/dL See Below MG-C ardiology-CM [facility] [address] [place] Work Phone: Comment on above: Reference Range: 1.6 0 - 2.40 No Panel Informationon 12-28 65 {mL/min/1.73m2} >90 MG-Car diology-CM [facility] [address] [place] Work Phone: Comment on above: CALCULATIONS OF ERICA MATED GFR ARE PERFORMED USING THE 2020 CKD-EPI STUDY REFIT EQUATION WITHOUT THE RACE VARIABLE FOR THE IDMS-TRACEABLE CREATININE METHODS.https://jasn.asnjournals.org/content/early// N.9079091053 0.0 {/100_WBC} 0.0-0.0 MG-Cardiol ogy-CM [facility] [address] [place] Work Phone: CT Biopsy Bone Trocar/Needle Superficialon 12-27-2021 CT Guidance for superficial biopsy of Bone Normal ZU-Calrzmwuqw-WI [facility] [address] [place] Work Phone: Complete Blood Count + Diffe rentialon 12-27-2021 Basophils/100 WBC (Bld) 1.5 % 0.0 - 2.0 LM-Wugyanmxma-MV [facility] [address] [place] Work Phone: Erythrocyte distribution width (RBC) [Ratio] 17.0 % above high threshold See Below JF-Pulbsjjksj-PI [facility] [address] [place] Work Phone: Comment on above: Reference Range: 11. 5 - 14.5 Hematocrit (Bld) [Volume fraction] 43.2 % See Below MG-Cardiology- CM [facility] [address] [place] Work Phone: Comment on above: Reference Range: 41. 0 - 52.0 Hemoglobin (Bld) [Mass/Vol] 13.0 g/dL below low threshold See Below OG-Zmytyuamix-TQ [facility] [address] [place] Work Phone: Comment on above: Reference Range: 13. 5 - 17.5 Lymphocytes/100 WBC (Bld) 16.7 % See Below TK-Kciykpmrdp-ZF [facility] [address] [place] Work Phone: Comment on above: Reference Range: 13. 0 - 44.0 MCHC (RBC) [Mass/Vol] 30.1 g/dL below low threshold See Below SE-Oijzlcuyyw-TX [facility] [address] [place] Work Phone: Comment on above: Reference Range: 32. 0 - 36.0 MCV (RBC) [Entitic vol] 90 fL 80 - 100 YH-Wzrhopkwew-YM [facility] [address] [place] Work Phone: Monocytes/100 WBC (Bld) 14.3 % 2.0 - 10.0 GL-Jciuoiispy-IF [facility] [address] [place] Work Phone: Neutrophils/100 WBC (Bld) 59.8 % See Below AF-Flyttptsup-TO [facility] [address] [place] Work Phone: Comment on above: Reference Range: 40. 0 - 80.0 Platelets (Bld) [#/Vol] 145 10*3/uL below low threshold 150 - 450 FB-Hjsyyckmfo-GY [facility] [address] [place] Work Phone: RBC (Bld) [#/Vol] 4.82 {x10E12/L} See Below MG -Cardiology-CM [facility] [address] [place] Work Phone: Comment on above: Reference Range: 4.5 0 - 5.90 WBC (Bld) [#/Vol] 5.3 10*3/uL 4.4 - 11.3 MG-Car diology-CM [facility] [address] [place] Work Phone: Complete Blood Count + Differential 0.08 {x10E9/L} See Below SH-Qfnqcmmbdo-XQ [facility] [address] [place] Work Phone: Comment on above: Reference Range: 0.0 0 - 0.10 Complete Blood Count + Differential 0.40 {x10E9/L} See Below WG-Qhjvgtuwyb-AD [facility] [address] [place] Work Phone: Comment on above: Reference Range: 0.0 0 - 0.70 Complete Blood Count + Differential 0.76 {x10E9/L} See Below ZI-Pupnbjonsk-AM [facility] [address] [place] Work Phone: Comment on above: Reference Range: 0.1 0 - 1.00 Complete Blood Count + Differential 0.89 {x10E9/L} below low threshold See Below RQ-Yaelpfxseu-EN [facility] [address] [place] Work Phone: Comment on above: Reference Range: 1.2 0 - 4.80 Complete Blood Count + Differential 3.18 {x10E9/L} See Below GN-Eimqegvncj-VC [facility] [address] [place] Work Phone: Comment on above: Reference Range: 1.2 0 - 7.70 Complete Blood Count + Differential 7.5 % 0.0 - 6.0 JW-Invgvyzhag-FX [facility] [address] [place] Work Phone: Complete Blood Count + Differential 0.2 % 0.0 - 0.9 BB-Mumvqepahr-RX [facility] [address] [place] Work Phone: Comment on above: Immature Granulocyte Count (IG) includes promyelocytes, myelocytes and metamyelocytes but does not include bands. Percent differential counts (%) should be interpreted in the context of the absolute cell counts (cells/L). Complete Blood Count + Differential 0.0 {/100_WBC} 0.0-0.0 DX-Hbwymxyruc-EN [facility] [address] [place] Work Phone: Digoxin Level, Serumon 12-27 Digoxin [Mass/Vol] 0.49 ng/mL below low threshold See Below FR-Nbjcpmduva-HZ [facility] [address] [place] Work Phone: Comment on above: Reference Range: 0.8 0 - 2.00 Heparin assay, UFHon 022 Heparin unfractionated Chromogenic method Qn (PPP) 0.2 {IU/mL} DQ-Voymtjsawc-OP [facility] [address] [place] Work Phone: Comment on above: The therapeutic refe rence range for UFH may be either 0.3-0.6 IU/mL or 0.3-0.7 IU/mL based on the clinical setting for anticoagulant therapy and the associated nomogram used. For heparin dosing guidelines based on clinical scenario and Heparin Assay results, please refer to local Pharmacy and the [facility] Guidelines for Anticoagulation therapy available on the [facility] intranet at:[email or web address]/[email or web address] [facility]_Guidelines_for_[email or web address].aspx Heparin unfractionated Chromogenic method Qn (PPP) 0.3 {IU/mL} ER-Cbzneimvnf-LE [facility] [address] [place] Work Phone: Comment on above: The therapeutic refe rence range for UFH may be either 0.3-0.6 IU/mL or 0.3-0.7 IU/mL based on the clinical setting for anticoagulant therapy and the associated nomogram used. For heparin dosing guidelines based on clinical scenario and Heparin Assay results, please refer to local Pharmacy and the [facility] Guidelines for Anticoagulation therapy available on the [facility] intranet at:[email or web address] [facility]_Guidelines_for_[email or web address].aspx Laboratory - Chemistry and C hemistry - challengeon 12-27-2021 Glucose [Mass/Vol] 208 mg/dL above high threshold 74 - 99 LI-Fwassomfpj-OS [facility] [address] [place] Work Phone: Glucose [Mass/Vol] 158 mg/dL above high threshold 74 - 99 DE-Dvnrlhkdjj-TX [facility] [address] [place] Work Phone: Glucose [Mass/Vol] 102 mg/dL above high threshold 74 - 99 YE-Hvddyqzbdp-EQ [facility] [address] [place] Work Phone: Albumin BCP dye [Mass/Vol] 4.0 g/dL 3.4 - 5.0 LD-Yylhczsojf-SX [facility] [address] [place] Work Phone: ALP [Catalytic activity/Vol] 67 U/L 33 - 136 WK-Mjvfibgjjn-GD [facility] [address] [place] Work Phone: ALT With P-5'-P [Catalytic activity/Vol] 13 U/L 10 - 52 UK-Paikbgnwty-MW [facility] [address] [place] Work Phone: Comment on above: Patients treated wit h Sulfasalazine may generate falsely decreased results for ALT. Anion gap [Moles/Vol] 13 mmol/L 10 - 20 MG- Cardiology-CM [facility] [place] Work Phone: AST With P-5'-P [Catalytic activity/Vol] 22 U/L 9 - 39 RD-Mjmfdhoeyd-HJ [facility] [address] [place] Work Phone: Bilirubin [Mass/Vol] 1.0 mg/dL 0.0 - 1.2 MG-C ardiology-CM [facility] [address] [place] Work Phone: Calcium [Mass/Vol] 9.0 mg/dL 8.6 - 10.6 MG-Car diology-CM [facility] [address] [place] Work Phone: Chloride [Moles/Vol] 103 mmol/L 98 - 107 MG-C ardiology-CM [facility] [address] [place] Work Phone: CO2 [Moles/Vol] 24 mmol/L 21 - 32 MG-Cardio logy-CM [facility] [address] [place] Work Phone: Creatinine [Mass/Vol] 1.19 mg/dL See Below MG- Cardiology-CM [facility] [address] [place] Work Phone: Comment on above: Reference Range: 0.5 0 - 1.30 Glucose [Mass/Vol] 122 mg/dL above high threshold 74 - 99 CH-Uhndakzbyu-CF [facility] [address] [place] Work Phone: LDH [Catalytic activity/Vol] 386 U/L above high threshold 84 - 246 AR-Mcbavtryig-KX [facility] [address] [place] Work Phone: Potassium [Moles/Vol] 4.3 mmol/L 3.5 - 5.3 MG- Cardiology-CM [facility] [address] [place] Work Phone: Protein [Mass/Vol] 7.4 g/dL 6.4 - 8.2 MG-Car diology-CM [facility] [address] [place] Work Phone: Sodium [Moles/Vol] 136 mmol/L 136 - 145 MG-Car diology-CM [facility] [address] [place] Work Phone: Urea nitrogen [Mass/Vol] 22 mg/dL 6 - 23 PJ-Knhvxfrrkl-PM [facility] [address] [place] Work Phone: Laboratory - Coagulationon 0 12-27-2021 aPTT Coag (PPP) [Time] 46 s above high threshold 26 - 39 JU-Zldmafajez-AE [facility] [address] [place] Work Phone: Comment on above: THE APTT IS NO LONGE R USED FOR MONITORING UNFRACTIONATED HEPARIN THERAPY. FOR MONITORING HEPARIN THERAPY, USE THE HEPARIN ASSAY. INR Coag (PPP) [Relative time] 2.6 {INR} above high threshold 0.9 - 1.1 WU-Lijdxihibo-RF [facility] [address] [place] Work Phone: PT Coag (PPP) [Time] 30.4 s above high threshold 9.8 - 13.4 BG-Nulaybtmwf-TC [facility] [address] [place] Work Phone: INR Coag (PPP) [Relative time] 2.7 {INR} above high threshold 0.9 - 1.1 OL-Pclzocoqgk-NI [facility] [address] [place] Work Phone: INR Coag (PPP) [Relative time] Canceled WM-Kmkhtihuxm-SH [facility] [address] [place] Work Phone: PT Coag (PPP) [Time] 32.0 s above high threshold 9.8 - 13.4 NY-Jettdczrti-EE [facility] [address] [place] Work Phone: PT Coag (PPP) [Time] Canceled MG-C ardiology-CM [facility] [address] [place] Work Phone: Laboratory - Hematology and Cell countson 12-27-2021 Granulocytes/100 WBC (Bld) 66 % EM-Uaqxhzbbtr-TT [facility] [address] [place] Work Phone: Lymphocytes/100 WBC (Bld) 13 % KK-Uznchziohi-RX [facility] [address] [place] Work Phone: Monocytes/100 WBC (Bld) 8 % GJ-Rzikusebnr-AA [facility] [address] [place] Work Phone: No Panel Informationon 12-27 SEE BELOW MG-Cardiology- CM [facility] [address] [place] Work Phone: Comment on above: Genetics test res ults are available electronically in [facility] Community Record. Results will be sent on a separate report.In the [facility], go to Community record -> click on Clinical documents -> go to Genetics Studies tab for results. This test is a multi color, whole blood lysis assay. It was developed and its performance characteristics determined by the Department of Pathology, [facility], and has not been cleared or approved [...] CD43, CD23, CD1c, CD25, CD180, CD11c, CD79b, [place], Lambda, IgD. Plasma cells are CD1 9-, CD45-, CD56+, CD138+, AJ300opm, CD20 very dim, CD43+ and kappa+ by [...] population identified. 0.20 % MG-Cardiology- CM [facility] [address] [place] Work Phone: 27 {%_of_Lymph} MG-Cardio logy-CM [facility] [address] [place] Work Phone: Comment on above: PolyclonalKappa/Hinojosa da= 59:35 (QU91-uxscy) 17 {%_of_Lymph} MG-Cardio logy-CM [facility] [address] [place] Work Phone: 30 {%_of_Lymph} MG-Cardio logy-CM [facility] [address] [place] Work Phone: 24 {%_of_Lymph} MG-Cardio logy-CM [facility] [address] [place] Work Phone: 100,000 - 150,381 MG-Card iology-CM [facility] [address] [place] Work Phone: 6.96 {x10E9/L} MG-Cardiol ogy-CM [facility] [address] [place] Work Phone: Acceptable MG-Cardiology- CM [facility] [address] [place] Work Phone: Comment on above: Flow cytometry resul ts should be interpreted in the context of morphology. Flow cytometry findings may be unreliable due to sampling issues, differential loss or recovery of cell populations ex vivo, or low viability. Bone Marrow MG-Cardiology -CM [facility] [address] [place] Work Phone: TezNiranjanDEEPALISON MG-Cardiology- CM [facility] [address] [place] Work Phone: Comment on above: By her/his signature above, the Pathologist listed as making the final interpretation certifies that she/he has personally reviewed this case. LOW GRADE PANEL MG-Cardio logy-CM [facility] [address] [place] Work Phone: MG-Cardiology- CM [facility] [address] [place] Work Phone: 70 {mL/min/1.73m2} >90 MG-Car diology-CM [facility] [address] [place] Work Phone: Comment on above: CALCULATIONS OF ERICA MATED GFR ARE PERFORMED USING THE 2020 CKD-EPI STUDY REFIT EQUATION WITHOUT THE RACE VARIABLE FOR THE IDMS-TRACEABLE CREATININE METHODS.https://jasn.asnjournals.org/content/early/ N.3725014082 Complete Blood Count + Diffe rentialon 12-26-2021 Basophils/100 WBC (Bld) 1.3 % 0.0 - 2.0 OW-Zurendxbjv-QF [facility] [address] [place] Work Phone: Erythrocyte distribution width (RBC) [Ratio] 16.8 % above high threshold See Below WC-Fnpyqayuin-WY [facility] [address] [place] Work Phone: Comment on above: Reference Range: 11. 5 - 14.5 Hematocrit (Bld) [Volume fraction] 43.8 % See Below MG-Cardiology- CM [facility] [address] [place] Work Phone: Comment on above: Reference Range: 41. 0 - 52.0 Hemoglobin (Bld) [Mass/Vol] 12.9 g/dL below low threshold See Below EM-Tzozmnrftw-CU [facility] [address] [place] Work Phone: Comment on above: Reference Range: 13. 5 - 17.5 Lymphocytes/100 WBC (Bld) 16.1 % See Below RF-Yotspeuhlp-NV [facility] [address] [place] Work Phone: Comment on above: Reference Range: 13. 0 - 44.0 MCHC (RBC) [Mass/Vol] 29.5 g/dL below low threshold See Below OG-Cquulmvbpd-UX [facility] [address] [place] Work Phone: Comment on above: Reference Range: 32. 0 - 36.0 MCV (RBC) [Entitic vol] 91 fL 80 - 100 BN-Safpnqvjht-YE [facility] [address] [place] Work Phone: Monocytes/100 WBC (Bld) 13.8 % 2.0 - 10.0 TB-Rgcdfhqlpb-JF [facility] [address] [place] Work Phone: Neutrophils/100 WBC (Bld) 62.3 % See Below HJ-Pfelvmygbq-DJ [facility] [address] [place] Work Phone: Comment on above: Reference Range: 40. 0 - 80.0 Platelets (Bld) [#/Vol] 154 10*3/uL 150 - 450 AM-Nohxocgzgd-LM [facility] [address] [place] Work Phone: RBC (Bld) [#/Vol] 4.82 {x10E12/L} See Below MG -Cardiology-CM [facility] [address] [place] Work Phone: Comment on above: Reference Range: 4.5 0 - 5.90 WBC (Bld) [#/Vol] 5.4 10*3/uL 4.4 - 11.3 MG-Car diology-CM [facility] [address] [place] Work Phone: Complete Blood Count + Differential 0.07 {x10E9/L} See Below VM-Rxuyorelbt-YN [facility] [address] [place] Work Phone: Comment on above: Reference Range: 0.0 0 - 0.10 Complete Blood Count + Differential 0.33 {x10E9/L} See Below PG-Mhdsgnvman-VJ [facility] [address] [place] Work Phone: Comment on above: Reference Range: 0.0 0 - 0.70 Complete Blood Count + Differential 0.75 {x10E9/L} See Below GT-Dqvqrqptfs-HH [facility] [address] [place] Work Phone: Comment on above: Reference Range: 0.1 0 - 1.00 Complete Blood Count + Differential 0.87 {x10E9/L} below low threshold See Below OH-Uxcvcobbuu-DK [facility] [address] [place] Work Phone: Comment on above: Reference Range: 1.2 0 - 4.80 Complete Blood Count + Differential 3.38 {x10E9/L} See Below NX-Fsdinyvayf-GI [facility] [address] [place] Work Phone: Comment on above: Reference Range: 1.2 0 - 7.70 Complete Blood Count + Differential 6.1 % 0.0 - 6.0 PL-Wuenesyohd-TI [facility] [address] [place] Work Phone: Complete Blood Count + Differential 0.4 % 0.0 - 0.9 FD-Ozdnoqfdfl-LG [facility] [address] [place] Work Phone: Comment on above: Immature Granulocyte Count (IG) includes promyelocytes, myelocytes and metamyelocytes but does not include bands. Percent differential counts (%) should be interpreted in the context of the absolute cell counts (cells/L). Complete Blood Count + Differential 0.0 {/100_WBC} 0.0-0.0 ZB-Gfjoixivrk-LS [facility] [address] [place] Work Phone: Heparin assay, UFHon 022 Heparin unfractionated Chromogenic method Qn (PPP) 0.1 {IU/mL} NY-Oelwskyzwo-HT [facility] [address] [place] Work Phone: Comment on above: The therapeutic refe rence range for UFH may be either 0.3-0.6 IU/mL or 0.3-0.7 IU/mL based on the clinical setting for anticoagulant therapy and the associated nomogram used. For heparin dosing guidelines based on clinical scenario and Heparin Assay results, please refer to local Pharmacy and the [facility] Guidelines for Anticoagulation therapy available on the [facility] intranet at:[email or web address] [email or web address] [email or web address]_[email or web address] Laboratory - Chemistry and C hemistry - challengeon 12-26-2021 Glucose [Mass/Vol] 150 mg/dL above high threshold 74 - 99 ET-Nfwwrbyziq-KQ [facility] [address] [place] Work Phone: Glucose [Mass/Vol] 165 mg/dL above high threshold 74 - 99 PJ-Xzjkxpkwub-HU [facility] [address] [place] Work Phone: Albumin BCP dye [Mass/Vol] 4.1 g/dL 3.4 - 5.0 XG-Figeuymclw-CU [facility] [address] [place] Work Phone: ALP [Catalytic activity/Vol] 70 U/L 33 - 136 FX-Hucmqjgbnh-UD [facility] [address] [place] Work Phone: ALT With P-5'-P [Catalytic activity/Vol] 13 U/L 10 - 52 HP-Jzxriqgngb-JH [facility] [address] [place] Work Phone: Comment on above: Patients treated wit h Sulfasalazine may generate falsely decreased results for ALT. Anion gap [Moles/Vol] 22 mmol/L above high threshold 10 - 20 YW-Mfwcvvdrhv-WA [facility] [address] [place] Work Phone: AST With P-5'-P [Catalytic activity/Vol] 23 U/L 9 - 39 XK-Jeyvnhdyub-RU [facility] [address] [place] Work Phone: Bilirubin [Mass/Vol] 0.9 mg/dL 0.0 - 1.2 MG-C ardiology-CM [facility] [address] [place] Work Phone: Calcium [Mass/Vol] 9.0 mg/dL 8.6 - 10.6 MG-Car diology-CM [facility] [address] [place] Work Phone: Chloride [Moles/Vol] 101 mmol/L 98 - 107 MG-C ardiology-CM [facility] [address] [place] Work Phone: CO2 [Moles/Vol] 20 mmol/L below low threshold 21 - 32 KC-Ylgaeudeqb-IE [facility] [address] [place] Work Phone: Creatinine [Mass/Vol] 1.27 mg/dL See Below MG- Cardiology-CM [facility] [address] [place] Work Phone: Comment on above: Reference Range: 0.5 0 - 1.30 Glucose [Mass/Vol] 253 mg/dL above high threshold 74 - 99 WW-Vgmlvuango-FS [facility] [address] [place] Work Phone: LDH [Catalytic activity/Vol] 452 U/L above high threshold 84 - 246 HY-Dzcaqpoyng-AL [facility] [address] [place] Work Phone: Comment on above: MILD HEMOLYSIS DETEC SAMUEL. The result may be falsely elevated due tohemolysis or other interferents. Clinical correlation is recommended.Repeat testing may be considered. Potassium [Moles/Vol] 4.5 mmol/L 3.5 - 5.3 MG- Cardiology-CM [facility] [address] [place] Work Phone: Protein [Mass/Vol] 7.8 g/dL 6.4 - 8.2 MG-Car diology-CM [facility] [address] [place] Work Phone: Sodium [Moles/Vol] 138 mmol/L 136 - 145 MG-Car diology-CM [facility] [address] [place] Work Phone: Urea nitrogen [Mass/Vol] 26 mg/dL above high threshold 6 - 23 KC-Oslgeimxkn-UK [facility] [address] [place] Work Phone: Laboratory - Coagulationon 0 - INR Coag (PPP) [Relative time] 1.4 {INR} above high threshold 0.9 - 1.1 VG-Hulknscows-IQ [facility] [address] [place] Work Phone: PT Coag (PPP) [Time] 16.4 s above high threshold 9.8 - 13.4 RY-Jiehdlqzfq-RF [facility] [address] [place] Work Phone: Lactate, Levelon 12-26-2021 Lactate [Moles/Vol] 0.9 mmol/L 0.4 - 2.0 MG-Ca rdiology-CM [facility] [address] [place] Work Phone: Comment on above: Venipuncture immedia tely after or during the administration of Metamizole may lead to falsely low results. Testing should be performed immediately prior to Metamizole dosing. No Panel Informationon 12-26 65 {mL/min/1.73m2} >90 MG-Car diology-CM [facility] [address] [place] Work Phone: Comment on above: CALCULATIONS OF ERICA MATED GFR ARE PERFORMED USING THE 2020 CKD-EPI STUDY REFIT EQUATION WITHOUT THE RACE VARIABLE FOR THE IDMS-TRACEABLE CREATININE METHODS.https://jasn.asnjournals.org/content/early// N.1657542642 FREE T4on 10-20-2021 Free T4 [Mass/Vol] 1.50 ng/dL Critically high 0.76-1.46 [facility] Comment on above: Performed By: #### I NFLUAB #### [facility] [address] [address] [address] Sonya Mendoza TSHon 10-20-2021 TSH 0.664 uIU/mL Normal 0.358-3.740 [facility] Comment on above: Performed By: #### F T4, PSAD #### [facility] [address] [address] [address] Sonya Mendoza Anticoagulation Monitoring S erviceon 10-03-2021 Anticoagulation Monitoring Service Today's INR [id number] IO INR3.3 Target INR range2-3 SourceAMS History of Present Illness Patient identification verified with 2 patient identifiers. Anticoagulation Monitoring Service: [facility]. Enrollment/Re-enrollm ent date: August 07, 2022. The patient is being seen as a follow-up for anticoagulation monitoring. Target INR 2-3. Monitoring practitioner Ju Palacios CNP. Date Warfarin Begun: 2016 INR monitoring is per [facility] protocol. PT MAY NOT GO LONGER THAN 2 WEEKS BETWEEN APPTS. The patient is on anticoagulation due to LVAD and NOTIFY LVAD COORDINATOR JENNIFER DALEFER SUZANNE (PAGER #[phone]) FOR INR <1.8 OR >4. The patient is currently taking warfarin Tablet strength and color: 3 mg (Ugarte) Interval History: September 12, 2021. Previous INR was 2.2. Dose maintained. Incoming total weekly dose 31.5 mg. Today's Clinic INR: [facility] INR 3.3. Since last visit, the patient [...] 11, 2021. Time: 9: 15 am. Location: [facility], , option 2. Your INR today is [...] 2021 9:27AM EST (Author) Reviewed by : LUBNA Malloy; Oct 03 2021 3:02PM EST Appendix #1 Coumadin Patient: TERRY VILLALPANDO; : 1960; [id number] 09:[id number] 09:[id number] 10:[id number] 10:[id number] 09:20AM IO PT/INR PT + INR, Plasma PT/INR (POC) Recorded INR Coagulation Screen Current Dose New Dose Recheck in Patient Notified Comments IO [id number] PT, INR Target INR [id number] Normal [employer] LVAD Flowsheeton 10-03-2021 LVAD Flowsheet 5.5 1 MG-Cardiol ogy-CM [facility] [address] [place] Work Phone: LVAD Flowsheet 9600 1 MG-Cardiol ogy-CM [facility] [address] [place] Work Phone: LVAD Flowsheet 4.7 1 MG-Cardiol ogy-CM [facility] [address] [place] Work Phone: LVAD Flowsheet 6.2 1 MG-Cardiol ogy-CM [facility] [address] [place] Work Phone: LVAD Flowsheet no alarms noted per patient IO-Vwxaqnbutd-OB [facility] [address] [place] Work Phone: Office Visit (Cardiology)on 10-03-2021 Follow-up visit Diagnoses/Problems Assessed Anticoagulant long-term use (V58.61) (Z79.01) LVAD (left ventricular assist device) present (V43.21) (Z95.811) Systolic heart failure, ACC/AHA stage D (428.20) (I50.20) Nonischemic cardiomyopathy (425.4) (I42.8) Patient Instructions -Please bring a list of your medications to every visit. -If you have any questions or concerns, please contact the LVAD office at [phone], option 3 or the direct line at [phone]. Please state that you are an LVAD patient. If it is after hours and it is an emergency, please page the LVAD pager by calling [phone] #[phone]. -Follow up SaturdayDec 29 at 2pm [...] 0. 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 Lay Vaca Mr. 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 He is co-managed by the team at [facility] (Dr Yi). Interval Hx: Patient had [...] 10-03-2021 Today's INR 2-3 MG-Cardiology -CM [facility] [address] [place] Work Phone: Today's INR AMS MG-Cardiology -CM [facility] [address] [place] Work Phone: CT LUNG CANCER [...] by: TORI GILL Date: 2021-09-29 07:58 Normal [facility] US SINGLE QUAD RT UPPERon US [...] by: TORI GILL Date: 2021-09-26 17:00 Normal [facility] US SPLEENon 09-26-2021 US SPLEEN EXAMINATION: US SPLEEN HISTORY: Monoclonal gammopathy (clinical) COMPARISON: No relevant comparison available. FINDINGS: The spleen is normal in size, contour and echotexture with no focal mass. The spleen measures 14.0 x 5.0 x 12.0 cm with volume of 437 mL. IMPRESSION: Normal appearance of the spleen Electronically authenticated by: TORI GILL Date: 2021-09-26 17:01 Normal [facility] XR BONE SURVEYon 09-26-2021 XR BONE [...] TORI GILL Date: 2021-09-26 09:56 Normal [facility] CBC W Auto Differential pane l (Bld)on 09-21-2021 Abs Immature Gran 0.03 k/uL <0.10 k/uL [facility] Basophils (Bld) [#/Vol] 0.07 10*3/uL <0.11 k/uL [facility] Basophils/100 WBC (Bld) 0.9 % [facility] Differential cell count method Nom (Bld) Auto [facility] Eosinophils (Bld) [#/Vol] 0.36 10*3/uL <0.46 k/uL [facility] Eosinophils/100 WBC (Bld) 4.9 % [facility] Erythrocyte distribution width (RBC) [Ratio] 18.3 % High 11.5 - 15.0 % [facility] Hematocrit (Bld) [Volume fraction] 46.9 % 39.0 - 51.0 % [facility] Hemoglobin (Bld) [Mass/Vol] 14.2 g/dL 13.0 - 17.0 g/dL [facility] Immature Gran % 0.4 % [facility] Lymphocytes (Bld) [#/Vol] 0.86 10*3/uL Low 1.00 - 4.00 k/uL [facility] Lymphocytes/100 WBC (Bld) 11.7 % [facility] MCH (RBC) [Entitic mass] 28.7 pg 26.0 - 34.0 pg [facility] MCHC (RBC) [Mass/Vol] 30.3 g/dL Low 30.5 - 36.0 g/dL [facility] MCV (RBC) [Entitic vol] 94.7 fL 80.0 - 100.0 fL [facility] Monocytes (Bld) [#/Vol] 0.76 10*3/uL <0.87 k/uL [facility] Monocytes/100 WBC (Bld) 10.3 % [facility] Neutrophils (Bld) [#/Vol] 5.29 10*3/uL 1.45 - 7.50 k/uL [facility] Neutrophils/100 WBC (Bld) 71.8 % [facility] Nucleated RBC (Bld) [#/Vol] 10*3/uL <0.01 k/uL [facility] Nucleated RBC/100 WBC (Bld) [Ratio] 0.0 /100 WBC [facility] Platelet mean volume (Bld) [Entitic vol] 11.7 fL 9.0 - 12.7 fL [facility] Platelets (Bld) [#/Vol] 144 10*3/uL Low 150 - 400 k/uL [facility] RBC (Bld) [#/Vol] 4.95 10*6/uL 4.20 - 6.0 0 m/uL [facility] WBC (Bld) [#/Vol] 7.37 10*3/uL 3.70 - 11. 00 k/uL [facility] Comprehensive metabolic 2000 panelon 09-21-2021 Albumin [Mass/Vol] 4.4 g/dL 3.9 - 4.9 g/dL [facility] ALP [Catalytic activity/Vol] 91 U/L 38 - 113 U/L [facility] ALT [Catalytic activity/Vol] 16 U/L 10 - 54 U/L [facility] Anion gap [Moles/Vol] 6 mmol/L Low 9 - 18 mmol/L [facility] AST [Catalytic activity/Vol] 23 U/L 14 - 40 U/L [facility] Bilirubin [Mass/Vol] 0.9 mg/dL 0.2 - 1 .3 mg/dL [facility] Calcium [Mass/Vol] 9.9 mg/dL 8.5 - 10. 2 mg/dL [facility] Chloride [Moles/Vol] 101 mmol/L 97 - 10 5 mmol/L [facility] CO2 [Moles/Vol] 28 mmol/L 22 - 30 mmol/L [facility] Creatinine [Mass/Vol] 1.14 mg/dL 0.73 - 1.22 mg/dL [facility] Estimated Glomerular Filtration Rate 74 mL/min/1.73m >=60 mL/min/1.73m [facility] Glucose [Mass/Vol] 146 mg/dL High 74 - 99 mg/dL [facility] Potassium [Moles/Vol] 4.5 mmol/L 3.7 - 5.1 mmol/L [facility] Protein [Mass/Vol] 8.5 g/dL High 6.3 - 8.0 g/dL [facility] Sodium [Moles/Vol] 135 mmol/L Low 136 - 144 mmol/L [facility] Urea nitrogen [Mass/Vol] 21 mg/dL 9 - 24 mg/dL [facility] LD LACTATE DEHYDROon 022 LDH [Catalytic activity/Vol] 533 U/L High 135 - 225 U/L [facility] RETIC COUNTon 09-21-2021 Reticulocytes (Bld) [#/Vol] 0.70933 10*3/uL High 0.018 - 0.100 M/uL [facility] Reticulocytes (Bld) [#/Vol]o n 09-21-2021 Reticulocytes/100 RBC (Bld) 2.7 % High 0.4 - 2.0 % [facility] Anticoagulation Monitoring Abiel foreman 09-12-2021 Anticoagulation Monitoring Service Today's INR [id number] IO INR2.2 Target INR range2-3 SourceAMS History of Present Illness Patient identification verified with 2 patient identifiers. Anticoagulation Monitoring Service: [facility]. Enrollment/Re-enrollm ent date: August 07, 2022. The patient is being seen as a follow-up for anticoagulation monitoring. Target INR 2-3. Monitoring practitioner Ju Palacios CNP. Date Warfarin Begun: 2016 INR monitoring is per [facility] protocol. PT MAY NOT GO LONGER THAN 2 WEEKS BETWEEN APPTS. The patient is on anticoagulation due to LVAD and NOTIFY LVAD COORDINATOR JENNIFER PALACIOS (PAGER #[phone]) FOR INR <1.8 OR >4. The patient is currently taking warfarin Tablet strength and color: 3 mg (Ugarte) Interval History: September 05, 2021. Previous INR was 3.5. ONE DOSE HELD THEN TWD MAINTAINED. Incoming total weekly dose 31.5 mg. Today's Clinic INR: [facility] INR 2.2. Since last visit, the patient [...] 25, 2021. Time: 11: 30 am. Location: [facility], , option 2. Your INR today is [...] #1 Coumadin Patient: TERRY VILLALPANDO; : 1960; [id number] 09:[id number] 10:[id number] 10:[id number] 09:[id number] 07:59PM IO PT/INR PT + INR, Plasma PT/INR (POC) Recorded INR Coagulation Screen Current Dose New Dose Recheck in Patient Notified Comments IO [id number] PT, INR1.8 Target INR [id number] Normal [employer] Today's INRon 09-12-2021 Today's INR 2-3 Anticoagulati on [facility] Work Phone: Today's INR AMS Anticoagulati on [facility] Work Phone: IMMUNOFIXATION (DANIEL), URINEo n 09-08-2021 DANIEL Interpretation:U Comment Abnormal [facility] Comment on above: Result Comment: Benc e Allan Protein positive; kappa type. Performed By: #### I MUNFXU #### [facility] [address] [place] [address] Dr. Sonya Mendoza IMMUNOFIXATION (DANIEL), SERUMo n 09-07-2021 IMMUNOFIXATION RESULT Comment Abnormal [facility] Comment on above: Result Comment: Immu [...] can be removed by ordering test number [id number]- Immunofixation, Daratumumab-Specific, Serum and submitting a new sample for testing or by calling the lab to add this test to the current sample. Performed By: #### I NFLUAB #### [facility] [address] [place] [address] Dr. Sonya Mendoza Immunoglobulin A, Qn, Serum 935 mg/dL Critically high 90-386 [facility] Comment on above: Result Comment: Resu lts confirmed on dilution. Performed By: #### I NFLUAB #### [facility] [address] [place] [address] Dr. Sonya Mendoza Immunoglobulin G, Qn, Serum 1591 mg/dL Normal [id number] [facility] Comment on above: Performed By: #### I NFLUAB #### [facility] [address] [place] [address] Dr. Sonya Mendoza Immunoglobulin M, Qn, Serum 92 mg/dL Normal 20-172 [facility] Comment on above: Performed By: #### I NFLUAB #### [facility] [address] [address] [address] Sonya Mendoza CBC W MANUAL DIFFon 09-07-19 22 ATYPICAL LYMPH # Normal [facility] Comment on above: Performed By: #### P ERSMR CBCMAN #### [facility] [address] [address] [address] Sonya Mendoza ATYPICAL LYMPH % Normal [facility] Comment on above: Performed By: #### P ERSMR CBCMAN #### [facility] [address] [address] [address] Sonya Mendoza BAND # 0.0 103/ul Normal 0.0-0.3 [facility] Comment on above: Performed By: #### P ERSMR CBCMAN #### [facility] [address] [place] [address] Dr. Sonya Mendoza BAND % 0 % Normal 0-5 [facility] Comment on above: Performed By: #### P ERSMR CBCMAN #### [facility] [address] [address] [address] Sonya Mendoza BASOM # 0.12 103/ul Critically high 0.00-0.10 [facility] Comment on above: Performed By: #### P ERSMR CBCKANWAL #### [facility] [address] [address] [address] Sonya Mendoza BASOM % 2.0 % Normal 0.2-2.0 [facility] Comment on above: Performed By: #### P ERSMR CBCMAN #### [facility] [address] [address] [address] Sonya Mendoza BLAST # Normal [facility] Comment on above: Performed By: #### P ERSMR CBCMAN #### [facility] [address] [address] [address] Sonya Mendoza BLAST % Normal [facility] Comment on above: Performed By: #### P ERSMR CBCMAN #### [facility] [address] [place] [address] Dr. Sonya Mendoza CORRECTED WBC Normal 4.0-11.0 [facility] Comment on above: Performed By: #### P ERSMR, CBCMAN #### [facility] [address] [address] [address] Sonya Mendoza EOS # 0.00 103/ul Normal 0.00-0.70 [facility] Comment on above: Performed By: #### P ERSMR, CBCMAN #### [facility] [address] [address] [address] Sonya Mendoza EOS% 0.0 % Critically low 0.9-7.0 [facility] Comment on above: Performed By: #### P ERSMR, CBCMAN #### [facility] [address] [address] [address] Sonya Mendoza HCT 48.8 % Normal 42.0-54.0 [facility] Comment on above: Performed By: #### P ERSMR, CBCMAN #### [facility] [address] [address] [address] Sonya Mendoza HGB 14.7 g/dl Normal 14.0-18.0 [facility] Comment on above: Performed By: #### P ERSMR, CBCMAN #### [facility] [address] [address] [address] Sonya Mendoza LYMPHM # 0.62 103/ul Critically low 1.20-3.80 [facility] Comment on above: Performed By: #### P ERSMR, CBCMAN #### [facility] [address] [address] [address] Sonya Mendoza LYMPHM% 10.0 % Critically low 20.5-60.0 [facility] Comment on above: Performed By: #### P ERSMR, CBCMAN #### [facility] [address] [address] [address] Sonya Mendoza MCH 28.8 pg Normal 25.9-34.0 [facility] Comment on above: Performed By: #### P ERSMR, CBCMAN #### [facility] [address] [address] [address] Sonya Mendoza MCHC 30.1 g/dl Normal 29.9-35.2 [facility] Comment on above: Performed By: #### P ERSMR, CBCMAN #### [facility] [address] [address] [address] Sonya Mendoza MCV 95.7 fL Critically high 80.0-94.0 [facility] Comment on above: Performed By: #### P ERSMR, CBCMAN #### [facility] [address] [address] [address] Sonya Mendoza METAMYELOCYTE # Normal [facility] Comment on above: Performed By: #### P ERSMR, CBCMAN #### [facility] [address] [address] [address] Sonya Mendoza METAMYELOCYTE % Normal [facility] Comment on above: Performed By: #### P ERSMR, CBCMAN #### [facility] [address] [address] [address] Sonya Mendoza MONOM# 0.62 103/ul Normal 0.30-0.80 [facility] Comment on above: Performed By: #### P ERSMR, CBCMAN #### [facility] [address] [address] [address] Sonya Mendoza MONOM% 10.0 % Normal 1.7-12.0 [facility] Comment on above: Performed By: #### P ERSMR, CBCMAN #### [facility] [address] [address] [address] Sonya Mendoza MPV 12.3 fL Normal 9.5-13.5 [facility] Comment on above: Performed By: #### P ERSMR, CBCMAN #### [facility] [address] [address] [address] Sonya Mendoza MYELOCYTE # Normal [facility] Comment on above: Performed By: #### P ERSMR, CBCMAN #### [facility] [address] [address] [address] Sonya Mendoza MYELOCYTE % Normal [facility] Comment on above: Performed By: #### P ERSMR, CBCMAN #### [facility] [address] [address] [address] Sonya Mendoza NRBC Normal [facility] Comment on above: Performed By: #### P ERSMR, CBCMAN #### [facility] [address] [address] [address] Sonya Mendoza PLT 110 103/ul Critically low 150-450 [facility] Comment on above: Performed By: #### P ERSMR, CBCMAN #### [facility] [address] [address] [address] Sonya Mendoza RBC 5.10 106/ul Normal 4.70-6.10 [facility] Comment on above: Result Comment: roul eux 3+ Performed By: #### P ERSMR, CBCMAN #### [facility] [address] [address] [address] Sonya Mendoza RDW 17.7 % Critically high 11.0-15.0 [facility] Comment on above: Performed By: #### P ERSMR, CBCMAN #### [facility] [address] [address] [address] Sonya Mendoza SEG # 4.84 103/ul Normal 1.40-6.50 [facility] Comment on above: Performed By: #### P ERSMR, CBCMAN #### [facility] [address] [address] [address] Sonya Mendoza SEG % 78.0 % Critically high 43.0-75.0 [facility] Comment on above: Performed By: #### P ERSMR, CBCMAN #### [facility] [address] [address] [address] Sonya Mendoza WBC 6.2 103/ul Normal 4.0-11.0 [facility] Comment on above: Performed By: #### P ERSMR, CBCMAN #### [facility] [address] [address] [address] Sonya Mendoza LDHon 09-06-2021 LDH 544 U/L Critically high 85-227 [facility] Comment on above: Performed By: #### L DH, LIVER #### [facility] [address] [address] [address] Sonya Mendoza LIVER PROFILEon 09-06-2021 Albumin [Mass/Vol] 4.0 g/dL Normal 3.4-5.0 [facility] Comment on above: Performed By: #### L , LIVER #### [facility] [address] [place] [address] Dr. Sonya Mendoza Albumin/Globulin [Mass ratio] 0.9 {ratio} Normal [facility] Comment on above: Performed By: #### L , LIVER #### [facility] [address] [place] [address] Dr. Sonya Mendoza ALP [Catalytic activity/Vol] 88 U/L Normal 46-116 [facility] Comment on above: Performed By: #### L , LIVER #### [facility] [address] [place] [address] Dr. Sonya Mendoza ALT [Catalytic activity/Vol] 20 U/L Normal 16-63 [facility] Comment on above: Performed By: #### L , LIVER #### [facility] [address] [place] [address] Dr. Sonya Mendoza AST [Catalytic activity/Vol] 19 U/L Normal 15-37 [facility] Comment on above: Performed By: #### L , LIVER #### [facility] [address] [place] [address] Dr. Sonya Mendoza BILI, CONJUGATED 0.4 mg/dL Critically high 0.0-0.2 [facility] Comment on above: Performed By: #### L , LIVER #### [facility] [address] [place] [address] Dr. Sonya Mendoza Bilirubin [Mass/Vol] 1.3 mg/dL Critically high 0.2-1.0 [facility] Comment on above: Performed By: #### L , LIVER #### [facility] [address] [place] [address] Dr. Sonya Mendoza Globulin (S) [Mass/Vol] 4.7 g/dL Normal [facility] Comment on above: Performed By: #### L , LIVER #### [facility] [address] [place] [address] Dr. Sonya Mendoza Protein [Mass/Vol] 8.7 g/dL Critically high 6.4-8.2 [facility] Comment on above: Performed By: #### L DH, LIVER #### [facility] [address] [address] [address] Sonya Mendoza PERIPHERAL SMEARon Pathologist Cyto stain Nom (Cvx/Vag) [ID] DR. JAMIE COTE Normal [facility] Comment on above: Performed By: #### P ERSMR, CBCMAN #### [facility] [address] [address] [address] Sonya Mendoza VITAMIN D 25 OHon 09-06-2021 VIT D 25-OH 18.4 ng/mL Normal [facility] Comment on above: Performed By: #### F T4, PSAD #### [facility] [address] [place] [address] Dr. Sonya Mendoza VIT D RANGES SEE BELOW Normal [facility] Comment on above: Result Comment: <20 ng/mL Vit D deficient 20 - <30 ng/mL Vit D insufficient 30 - 100 ng/mL Vit D sufficient >100 ng/mL Potential Toxicity Performed By: #### F T4, PSAD #### [facility] [address] [address] [address] Sonya Mendoza Anticoagulation Monitoring S erviceon 09-05-2021 Anticoagulation Monitoring Service Today's INR [id number] IO INR3.5 Target INR range2-3 SourceAMS History of Present Illness Patient identification verified with 2 patient identifiers. Anticoagulation Monitoring Service: [facility]. Enrollment/Re-enrollm ent date: August 07, 2022. The patient is being seen as a follow-up for anticoagulation monitoring. Target INR 2-3. Monitoring practitioner Ju Palacios CNP. Date Warfarin Begun: 2016 INR monitoring is per AMS protocol. PT MAY NOT GO LONGER THAN 2 WEEKS BETWEEN APPTS. The patient is on anticoagulation due to LVAD and NOTIFY LVAD COORDINATOR JENNIFER PALACIOS (PAGER #[phone]) FOR INR <1.8 OR >4. The patient is currently taking warfarin Tablet strength and color: 3 mg (Ugarte) Interval History: August 29, 2021. Previous INR was 2.8. Dose maintained. Incoming total weekly dose 31.5 mg. Today's Clinic INR: AMS INR 3.5. Since last visit, the patient [...] 12, 2021. Time: 9: 30 am. Location: [facility], . Your INR today is higher [...] #1 Coumadin Patient: TERRY VILLALPANDO; : 1960; [id number] 10:[id number] 10:[id number] 09:[id number] 07:[id number] 06:57PM IO PT/INR PT + INR, Plasma PT/INR (POC) Recorded INR Coagulation Screen Current Dose New Dose Recheck in Patient Notified Comments IO INR3.52.82.8 PT, INR1.8 1.5 Target INR [id number] Normal [employer] Today's INRon 09-05-2021 Today's INR AMS Anticoagulati on [facility] Work Phone: Today's INR 2-3 Anticoagulati on [facility] Work Phone: Anticoagulation Monitoring S erviceon 08-29-2021 Anticoagulation Monitoring Service Today's INR [id number] IO INR2.8 Target INR range2-3 Source[facility] History of Present Illness Patient identification verified with 2 patient identifiers. Anticoagulation Monitoring Service: [facility]. Enrollment/Re-enrollm ent date: August 07, 2022. The patient is being seen as a follow-up for anticoagulation monitoring. Target INR 2-3. Monitoring practitioner JENNIFER PALACIOS. Date Warfarin Begun: 2016 INR monitoring is per AMS protocol. PT MAY NOT GO LONGER THAN 2 WEEKS BETWEEN APPTS. The patient is on anticoagulation due to LVAD and NOTIFY LVAD COORDINATOR JENNIFER PALACIOS (PAGER #[phone]) FOR INR <1.8 OR >4. The patient [...] 05, 2021. Time: 10: 30 am. Location: [facility], . Your INR today is within [...] 2021 10:28AM EST (Author) Reviewed by : LUBNA Malloy; Aug 29 2021 10:59AM EST Appendix #1 Coumadin Patient: YUVAL TERRY D.; : 1960; [id number] [id number] 09:[id number] 07:[id number] 06:[id number] 07:33PM IO PT/INR PT + INR, Plasma PT/INR (POC) Recorded INR Coagulation Screen Current Dose New Dose Recheck in Patient Notified Comments IO INR2.82.8 PT, INR1.8 1.5 1.6 Target INR range2-32-3 Normal [employer] Today's INRon 08-29-2021 Today's INR 2-3 Anticoagulati on [facility] Work Phone: Today's INR AMS Anticoagulati on [facility] Work Phone: Anticoagulation Monitoring S erviceon 08-24-2021 Anticoagulation Monitoring Service Today's INR [id number] IO INR2.8 Target INR range2-3 Source[facility] History of Present Illness Patient identification verified with 2 patient identifiers. Anticoagulation Monitoring Service: [facility]. Enrollment/Re-enrollm ent date: August 07, 2022. The patient is being seen as a new patient for anticoagulation monitoring. Pt was seen today in the [facility] for NPV. Pt was referred by JENNIFER Palacios with dx of LVAD. Patient contract form completed. Past medical history includes: afib, AI, CHF, COPD, DM, HLD, HTN, HI, RENU. Current meds reviewed and are listed in EMR. Educational information discussed including: indication, potential drug interactions (including ASA and ibuprofen), dietary considerations, effects of alcohol, changes in general health to report, compliance with f/u, dosing (including missed doses), signs of bleeding/clotting to report, and to seek medical attention if illness or injury occurs. [facility] voicemail number given to pt. Take home material provided. Pt verbalized understanding. PT HAS BEEN ON WARFARIN SINCE AT LEAST 2016 AND IS NOW ESTABLISHING CARE WITH [facility]. Target INR 2-3. Monitoring practitioner JENNIFER PALACIOS. Date Warfarin Begun: 2016 INR monitoring is per [facility] protocol. PT MAY NOT GO LONGER THAN 2 WEEKS BETWEEN APPTS. The patient is on anticoagulation due to LVAD and NOTIFY LVAD COORDINATOR JENNIFER PALACIOS (PAGER #[phone]) FOR INR <1.8 OR >4. The patient is currently taking warfarin Tablet strength and color: 3 mg (Ugarte) Interval History: Incoming total weekly dose 31.5 mg. Today's Clinic INR: [facility] INR 2.8. Since last visit, the [...] PT REQUESTS SUBSEQUENT APPTS TO BE AT [facility] LOCATION. Outgoing total weekly dose 31.5 mg. [...] 29, 2021. Time: 10: 15 am. Location: [facility], . Your INR today is within [...] 2021 5:58PM EST Appendix #1 Coumadin Patient: YUVAL TERRY Almas; : 1960; [id number] [id number] 07:[id number] 06:[id number] 07:[id number] 09:54PM IO PT/INR PT + INR, Plasma PT/INR (POC) Recorded INR Coagulation Screen Current Dose New Dose Recheck in Patient Notified Comments IO INR2.8 PT, INR1.8 1.5 1.6 1.9 Target INR range2-3 Normal [employer] Today's INRon 08-24-2021 Today's INR 2-3 Anticoagulati on Monitoring Service[facility] Work Phone: Today's INR AMS Anticoagulati on Monitoring Service-[facility] Work Phone: LVAD Flowsheeton 04-05-2021 LVAD Flowsheet 9600 1 MG-Cardiol ogy-[facility] 4600 Work Phone: LVAD Flowsheet 6.2 1 MG-Cardiol ogy-Ch [facility] 4600 Work Phone: LVAD Flowsheet 4.4 1 MG-Cardiol ogy-[facility] 4600 Work Phone: LVAD Flowsheet 6.6 1 MG-Cardiol ogy-[facility] 4600 Work Phone: LVAD Flowsheet no active alarms MG-C ardiology-[facility] 4600 Work Phone: Laboratory - Chemistry and C hemistry - challengeon 03-27-2021 Glucose [Mass/Vol] 181 mg/dL above high threshold 74 - 99 EU-Kyiazrjqto-VE [facility] [address] DO Work Phone: Glucose [Mass/Vol] 132 mg/dL above high threshold 74 - 99 VS-Dmnedhvoih-YH [facility] [address] Work Phone: Laboratory - Chemistry and C hemistry - challengeon 03-26-2021 Glucose [Mass/Vol] 137 mg/dL above high threshold 74 - 99 AL-Vdfltcfbqg-TC [facility] [address] DO Work Phone: Albumin BCP dye [Mass/Vol] 4.0 g/dL 3.4 - 5.0 PZ-Twcfqleriw-MX [facility] [address] [place] Work Phone: ALP [Catalytic activity/Vol] 65 U/L 33 - 120 XW-Odezgjkicg-LB [facility] [address] [place] Work Phone: ALT With P-5'-P [Catalytic activity/Vol] 9 U/L below low threshold 10 - 52 XO-Mphsuuivur-XP [facility] [address] [place] Work Phone: Comment on above: Patients treated wit h Sulfasalazine may generate falsely decreased results for ALT. Anion gap [Moles/Vol] 11 mmol/L 10 - 20 MG- Cardiology-CM [facility] [address] [place] Work Phone: AST With P-5'-P [Catalytic activity/Vol] 16 U/L 9 - 39 HO-Rqtshvpnik-OR [facility] [address] [place] Work Phone: Bilirubin [Mass/Vol] 0.8 mg/dL 0.0 - 1.2 MG-C ardiology-CM [facility] [address] [place] Work Phone: Calcium [Mass/Vol] 8.8 mg/dL 8.6 - 10.6 MG-Car diology-CM [facility] [address] [place] Work Phone: Chloride [Moles/Vol] 105 mmol/L 98 - 107 MG-C ardiology-CM [facility] [address] [place] Work Phone: CO2 [Moles/Vol] 22 mmol/L 21 - 32 MG-Cardio logy-CM [facility] [address] [place] Work Phone: Creatinine [Mass/Vol] 1.04 mg/dL See Below MG- Cardiology-CM [facility] [address] [place] Work Phone: Comment on above: Reference Range: 0.5 0 - 1.30 Glucose [Mass/Vol] 108 mg/dL above high threshold 74 - 99 UC-Rcvndatvvj-VK [facility] [address] [place] Work Phone: LDH [Catalytic activity/Vol] 260 U/L above high threshold 84 - 246 RF-Derjrtpbpa-ZZ [facility] [address] [place] Work Phone: Potassium [Moles/Vol] 4.3 mmol/L 3.5 - 5.3 MG- Cardiology-CM [facility] [address] [place] Work Phone: Protein [Mass/Vol] 6.6 g/dL 6.4 - 8.2 MG-Car diology-CM [facility] [address] [place] Work Phone: Sodium [Moles/Vol] 134 mmol/L below low threshold 136 - 145 JC-Riaddtghhi-QV [facility] [address] [place] Work Phone: Urea nitrogen [Mass/Vol] 19 mg/dL 6 - 23 RP-Anqawlxvdn-IP [facility] [address] [place] Work Phone: Glucose [Mass/Vol] 96 mg/dL 74 - 99 MG-Car diology-CM [facility] [address] [place] Work Phone: Glucose [Mass/Vol] 169 mg/dL above high threshold 74 - 99 YS-Pyolxatnrq-LK [facility] [address] [place] Work Phone: Glucose [Mass/Vol] 110 mg/dL above high threshold 74 - 99 JF-Jcklfjzqou-JJ [facility] [address] [place] Work Phone: Laboratory - Coagulationon 1 05-27-2020 aPTT Coag (PPP) [Time] 33 s 26 - 39 DV-Nwkfyyfxos-HQ [facility] [address] DO Work Phone: Comment on above: Note new reference levon upton as of 03/21/2021 at 10:00am. INR Coag (PPP) [Relative time] 1.8 {INR} above high threshold 0.9 - 1.1 DK-Ioutscplgf-PH [facility] [address] Work Phone: PT Coag (PPP) [Time] 20.9 s above high threshold 9.8 - 13.4 MJ-Tyiimtptcy-DP [facility] [address] [place] Work Phone: Comment on above: Note new reference levon upton as of 03/21/2021 at 10:00am. Laboratory - Hematology and Cell countson 03-26-2021 Erythrocyte distribution width (RBC) [Ratio] 19.5 % above high threshold See Below GO-Hhcxbskaol-VF [facility] [address] [place] Work Phone: Comment on above: Reference Range: 11. 5 - 14.5 Hematocrit (Bld) [Volume fraction] 31.0 % below low threshold See Below EJ-Vphfpsskcx-PP [facility] [address] DO Work Phone: Comment on above: Reference Range: 41. 0 - 52.0 Hemoglobin (Bld) [Mass/Vol] 8.7 g/dL below low threshold See Below NL-Hrbskqixxk-WD [facility] [address] Work Phone: Comment on above: Reference Range: 13. 5 - 17.5 MCHC (RBC) [Mass/Vol] 28.1 g/dL below low threshold See Below FD-Lhzuowvuyr-TE [facility] [address] [place] Work Phone: Comment on above: Reference Range: 32. 0 - 36.0 MCV (RBC) [Entitic vol] 88 fL 80 - 100 ZV-Sylbzggwee-HS [facility] [address] [place] Work Phone: Platelets (Bld) [#/Vol] 179 10*3/uL 150 - 450 CF-Xlfnwnquur-RH [facility] [address] DO Work Phone: RBC (Bld) [#/Vol] 3.53 {x10E12/L} below low threshold See Below ZO-Ujwskwwzvu-EL [facility] [address] DO Work Phone: Comment on above: Reference Range: 4.5 0 - 5.90 WBC (Bld) [#/Vol] 6.6 10*3/uL 4.4 - 11.3 MG-Car diology-CM [facility] [address] DO Work Phone: Magnesium, Serumon 1 Magnesium [Mass/Vol] 2.07 mg/dL See Below MG-C ardiology-CM [facility] [address] [place] Work Phone: Comment on above: Reference Range: 1.6 0 - 2.40 No Panel Informationon 03-26 >60 >60 MG-Cardiology- CM [facility] [address] DO Work Phone: Comment on above: CALCULATIONS OF ERICA MATED GFR ARE PERFORMED USING THE MDRD STUDY EQUATION FOR THE IDMS-TRACEABLE CREATININE METHODS. CLIN CHEM 2007;53:766-72 1.1 {/100_WBC} 0.0-0.0 MG-Cardiol ogy-CM [facility] [address] DO Work Phone: Folate, Serumon 03-25-2021 Folate [Mass/Vol] 13.5 ng/mL >5.0 MG-Card iology-CM [facility] [address] DO Work Phone: Comment on [...] reagent post transfusion reaction Ql (RBC) Negative KU-Bavtszlacd-HC [facility] [address] DO Work Phone: Direct antiglobulin test.poly specific reagent post transfusion reaction Ql (RBC) Negative MC-Sxvhlfwjbl-DM [facility] [address] DO Work Phone: Laboratory - Chemistry and C hemistry - challengeon 03-25-2021 Glucose [Mass/Vol] 128 mg/dL above high threshold 74 - 99 CJ-Pxnhqyzzas-RO [facility] [address] DO Work Phone: Albumin BCP dye [Mass/Vol] 4.1 g/dL 3.4 - 5.0 VQ-Ywsrimupek-SA [facility] [address] DO Work Phone: ALP [Catalytic activity/Vol] 63 U/L 33 - 120 UO-Jonvvdhllf-KX [facility] [address] DO Work Phone: ALT With P-5'-P [Catalytic activity/Vol] 7 U/L below low threshold 10 - 52 NY-Gnvvnrntul-RD [facility] [address] DO Work Phone: Comment on above: Patients treated wit h Sulfasalazine may generate falsely decreased results for ALT. Anion gap [Moles/Vol] 13 mmol/L 10 - 20 MG- Cardiology-CM [facility] [address] DO Work Phone: AST With P-5'-P [Catalytic activity/Vol] 14 U/L 9 - 39 JR-Pyipyqszur-VN [facility] [address] DO Work Phone: Bilirubin [Mass/Vol] 0.9 mg/dL 0.0 - 1.2 MG-C ardiology-CM [facility] [address] DO Work Phone: Calcium [Mass/Vol] 8.6 mg/dL 8.6 - 10.6 MG-Car diology-CM [facility] [address] DO Work Phone: Chloride [Moles/Vol] 105 mmol/L 98 - 107 MG-C ardiology-CM [facility] [address] DO Work Phone: CO2 [Moles/Vol] 23 mmol/L 21 - 32 MG-Cardio logy-CM [facility] [address] DO Work Phone: Creatinine [Mass/Vol] 1.09 mg/dL See Below MG- Cardiology-CM [facility] [address] DO Work Phone: Comment on above: Reference Range: 0.5 0 - 1.30 Glucose [Mass/Vol] 110 mg/dL above high threshold 74 - 99 SL-Qmnhbeotgm-LN [facility] [address] DO Work Phone: LDH [Catalytic activity/Vol] 269 U/L above high threshold 84 - 246 BO-Uwemqhyliw-JY [facility] [address] DO Work Phone: Potassium [Moles/Vol] 4.4 mmol/L 3.5 - 5.3 MG- Cardiology-CM [facility] [address] DO Work Phone: Protein [Mass/Vol] 6.7 g/dL 6.4 - 8.2 MG-Car diology-CM [facility] [address] DO Work Phone: Sodium [Moles/Vol] 137 mmol/L 136 - 145 MG-Car diology-CM [facility] [address] DO Work Phone: Urea nitrogen [Mass/Vol] 22 mg/dL 6 - 23 AK-Oiefzgdvty-MK [facility] [address] DO Work Phone: Glucose [Mass/Vol] 163 mg/dL above high threshold 74 - 99 AG-Zrrtechkkr-FB [facility] [address] DO Work Phone: Glucose [Mass/Vol] 160 mg/dL above high threshold 74 - 99 UF-Qtjeytyipo-XP [facility] [address] DO Work Phone: Glucose [Mass/Vol] 190 mg/dL above high threshold 74 - 99 VU-Fgthmrydcv-GP [facility] [address] DO Work Phone: Laboratory - Coagulationon 1 05-26-2020 aPTT Coag (PPP) [Time] 30 s 26 - 39 SM-Hteztolofg-BH [facility] [address] DO Work Phone: Comment on above: Note new reference r alexsandra as of 03/21/2021 at 10:00am. INR Coag (PPP) [Relative time] 1.5 {INR} above high threshold 0.9 - 1.1 YG-Tsfrkncuuq-CO [facility] [address] DO Work Phone: PT Coag (PPP) [Time] 17.7 s above high threshold 9.8 - 13.4 VM-Pvsxifzgye-ZK [facility] [address] DO Work Phone: Comment on above: Note new reference r alexsandra as of 03/21/2021 at 10:00am. Laboratory - Hematology and Cell countson 03-25-2021 Erythrocyte distribution width (RBC) [Ratio] 18.7 % above high threshold See Below UB-Nqpdgpippv-CD [facility] [address] DO Work Phone: Comment on above: Reference Range: 11. 5 - 14.5 Hematocrit (Bld) [Volume fraction] 30.0 % below low threshold See Below VQ-Mzzggopyuh-LY [facility] [address] DO Work Phone: Comment on above: Reference Range: 41. 0 - 52.0 Hemoglobin (Bld) [Mass/Vol] 8.9 g/dL below low threshold See Below QV-Rtbazyspal-WP [facility] [address] DO Work Phone: Comment on above: Reference Range: 13. 5 - 17.5 MCHC (RBC) [Mass/Vol] 29.7 g/dL below low threshold See Below RI-Rxyueagzlp-PN [facility] [address] DO Work Phone: Comment on above: Reference Range: 32. 0 - 36.0 MCV (RBC) [Entitic vol] 85 fL 80 - 100 IF-Fxhayurfcy-CA [facility] [address] DO Work Phone: Platelets (Bld) [#/Vol] 179 10*3/uL 150 - 450 TU-Fqjgtgpjkw-IE [facility] [address] DO Work Phone: RBC (Bld) [#/Vol] 3.53 {x10E12/L} below low threshold See Below IQ-Vxyznmxfbp-AD [facility] [address] DO Work Phone: Comment on above: Reference Range: 4.5 0 - 5.90 WBC (Bld) [#/Vol] 5.9 10*3/uL 4.4 - 11.3 MG-Car diology-CM [facility] [address] DO Work Phone: Magnesium, Serumon Magnesium [Mass/Vol] 2.15 mg/dL See Below MG-C ardiology-CM [facility] [address] DO Work Phone: Comment on above: Reference Range: 1.6 0 - 2.40 Methylmalonic Acid, Serumon 03-25-2021 Methylmalonate [Moles/Vol] 203 nmol/L 0-378 JK-Uhbpyfnirb-YJ [facility] [address] [place] Work Phone: Comment on above: This test was devinezo ped and its performance characteristicsdetermined by [employer]. It has not been cleared or approvedby the Food and Drug Administration. No Panel Informationon 03-25 0.5 {/100_WBC} 0.0-0.0 MG-Cardiol ogy-CM [facility] [address] DO Work Phone: >60 >60 MG-Cardiology- CM [facility] [address] DO Work Phone: Comment on above: CALCULATIONS OF ERICA MATED GFR ARE PERFORMED USING THE MDRD STUDY EQUATION FOR THE IDMS-TRACEABLE CREATININE METHODS. CLIN CHEM 2007;53:766-72 Laboratory - Chemistry and C hemistry - challengeon 03-24-2021 Glucose [Mass/Vol] 163 mg/dL above high threshold 74 - 99 CE-Uipqoncvyi-YL [facility] [address] DO Work Phone: Albumin BCP dye [Mass/Vol] 4.0 g/dL 3.4 - 5.0 HK-Lzyyiquiak-UO [facility] [address] DO Work Phone: ALP [Catalytic activity/Vol] 66 U/L 33 - 120 SJ-Duftostayz-TQ [facility] [address] DO Work Phone: ALT With P-5'-P [Catalytic activity/Vol] 7 U/L below low threshold 10 - 52 NU-Qavxubkgtx-YM [facility] [address] DO Work Phone: Comment on above: Patients treated wit h Sulfasalazine may generate falsely decreased results for ALT. Anion gap [Moles/Vol] 13 mmol/L 10 - 20 MG- Cardiology-CM [facility] [address] DO Work Phone: AST With P-5'-P [Catalytic activity/Vol] 13 U/L 9 - 39 UY-Gallgngfmp-GS [facility] [address] DO Work Phone: Bilirubin [Mass/Vol] 1.0 mg/dL 0.0 - 1.2 MG-C ardiology-CM [facility] [address] DO Work Phone: Calcium [Mass/Vol] 8.7 mg/dL 8.6 - 10.6 MG-Car diology-CM [facility] [address] DO Work Phone: Chloride [Moles/Vol] [...] mg/dL above high threshold 74 - 99 LG-Zggqgfpbpm-PU [facility] [address] DO Work Phone: LDH [Catalytic activity/Vol] 260 U/L above high threshold 84 - 246 JD-Alflsdztsy-NR [facility] [address] DO Work Phone: Potassium [Moles/Vol] 4.2 mmol/L 3.5 - 5.3 MG- Cardiology-CM [facility] [address] DO Work Phone: Protein [Mass/Vol] 6.8 g/dL 6.4 - 8.2 MG-Car diology-CM [facility] [address] DO Work Phone: Sodium [Moles/Vol] 135 mmol/L below low threshold 136 - 145 TA-Ajxxdgiiot-GJ [facility] [address] DO Work Phone: Urea nitrogen [Mass/Vol] 26 mg/dL above high threshold 6 - 23 TL-Hfqpppjltn-TG [facility] [address] DO Work Phone: Glucose [Mass/Vol] 140 mg/dL above high threshold 74 - 99 GU-Rrqsojbysa-KA [facility] [address] DO Work Phone: Glucose [Mass/Vol] 125 mg/dL above high threshold 74 - 99 AF-Akiffijjoi-KX [facility] [address] DO Work Phone: Laboratory - Coagulationon 1 05-25-2020 aPTT Coag (PPP) [Time] 31 s 26 - 39 SQ-Cvqfdrlemm-IP [facility] [address] DO Work Phone: Comment on above: Note new reference levon upton as of 03/21/2021 at 10:00am. INR Coag (PPP) [Relative time] 1.6 {INR} above high threshold 0.9 - 1.1 GD-Eotjrccjsu-BA [facility] [address] DO Work Phone: PT Coag (PPP) [Time] 18.3 s above high threshold 9.8 - 13.4 CQ-Qmcwuyxtii-QX [facility] [address] DO Work Phone: Comment on above: Note new reference r alexsandra as of 03/21/2021 at 10:00am. Laboratory - Hematology and Cell countson 03-24-2021 Basophils/100 WBC (Bld) 0.0 % 0.0 - 2.0 LV-Dymxvpsgqk-BG [facility] [address] DO Work Phone: Erythrocyte distribution width (RBC) [Ratio] 18.8 % above high threshold See Below WH-Pmekwbboqx-HE [facility] [address] DO Work Phone: Comment on above: Reference Range: 11. 5 - 14.5 Hematocrit (Bld) [Volume fraction] 30.2 % below low threshold See Below ZV-Sofpquzfbd-N[place] [facility] [facility] [address] Work Phone: Comment on above: Reference Range: 41. 0 - 52.0 Hemoglobin (Bld) [Mass/Vol] 8.8 g/dL below low threshold See Below RG-Ufzowrunrc-MS [facility] [address] DO Work Phone: Comment on above: Reference Range: 13. 5 - 17.5 Lymphocytes/100 WBC (Bld) 12.0 % See Below DO-Fcxbchntck-NM [facility] [address] DO Work Phone: Comment on above: Reference Range: 13. 0 - 44.0 MCHC (RBC) [Mass/Vol] 29.1 g/dL below low threshold See Below RL-Gyzzwpzrtq-QH [facility] [address] DO Work Phone: Comment on above: Reference Range: 32. 0 - 36.0 MCV (RBC) [Entitic vol] 86 fL 80 - 100 QR-Msinjtnwry-LF [facility] [address] DO Work Phone: Monocytes/100 WBC (Bld) 13.0 % 2.0 - 10.0 PX-Rxgqtztzvf-NQ [facility] [address] DO Work Phone: Platelets (Bld) [#/Vol] 174 10*3/uL 150 - 450 BR-Tokrtuceex-CC [facility] [address] DO Work Phone: RBC (Bld) [#/Vol] 3.51 {x10E12/L} below low threshold See Below UC-Xjbsydrzwr-CT [facility] [address] DO Work Phone: Comment on above: Reference Range: 4.5 0 - 5.90 WBC (Bld) [#/Vol] 6.8 10*3/uL 4.4 - 11.3 MG-Car diology-CM [facility] [address] DO Work Phone: Magnesium, Serumon 1 Magnesium [Mass/Vol] 2.13 mg/dL See Below MG-C ardiology-CM [facility] [address] DO Work Phone: Comment on above: Reference Range: 1.6 0 - 2.40 No Panel Informationon 03-24 71.0 % See Below MG-Cardiology- CM C [facility] [address] DO Work Phone: Comment on above: Reference Range: 40. 0 - 80.0 Percent differential counts (%) should be interpreted in the context of the absolute cell counts (cells/L). 70 {mL/min/1.73m2} >60 MG-Car diology-CM C [facility] [address] DO Work Phone: Comment on above: CALCULATIONS OF ERICA MATED GFR ARE PERFORMED USING THE MDRD STUDY EQUATION FOR THE IDMS-TRACEABLE CREATININE METHODS. CLIN CHEM 2007;53:766-72 58 {mL/min/1.73m2} Abnormal >60 MG-Car diology-CM C [facility] [address] DO Work Phone: Many MG-Cardiology- CM [facility] [address] DO Work Phone: Mild MG-Cardiology- CM C [facility] [address] DO Work Phone: See Below MG-Cardiology- CM C [facility] [address] DO Work Phone: 0.00 {x10E9/L} See Below MG-Cardiol ogy-CM C [facility] [address] DO Work Phone: Comment on above: Reference Range: 0.0 0 - 0.10 0.27 {x10E9/L} See Below MG-Cardiol ogy-CM [facility] [address] DO Work Phone: Comment on above: Reference Range: 0.0 0 - 0.70 0.88 {x10E9/L} See Below MG-Cardiol ogy-CM C [facility] [address] DO Work Phone: Comment on above: Reference Range: 0.1 0 - 1.00 0.82 {x10E9/L} below low threshold See Below EI-Kulyratixm-JN [facility] [address] DO Work Phone: Comment on above: Reference Range: 1.2 0 - 4.80 4.83 {x10E9/L} See Below MG-Cardiol ogy-CM C [facility] [address] DO Work Phone: Comment on above: Reference Range: 1.2 0 - 7.00 Reference Range: 1.2 0 - 7.70 4.0 % 0.0 - 6.0 MG-Cardiology- CM C [facility] [address] DO Work Phone: 0.7 {/100_WBC} [...] 0.30 ng/mL below low threshold See Below PV-Evptvowoad-QM [facility] [address] DO Work Phone: Comment on above: Reference Range: 0.8 0 - 2.00 Ferritin, Serumon 03-23-2021 Ferritin [Mass/Vol] 16 ug/L below low threshold 20 - 300 WJ-Owbauiprhf-EE C [facility] [address] DO Work Phone: Haptoglobin, Serumon Haptoglobin Nephelometry [Mass/Vol] <30 30 - 200 JK-Ulbesljmkb-RH [facility] [address] DO Work Phone: Laboratory - Chemistry and C hemistry - challengeon 03-23-2021 Albumin BCP dye [Mass/Vol] 3.9 g/dL 3.4 - 5.0 CV-Ysdjxluxjv-QH [facility] [address] DO Work Phone: ALP [Catalytic activity/Vol] 59 U/L 33 - 120 PV-Zgsessklzv-NU [facility] [address] DO Work Phone: ALT With P-5'-P [Catalytic activity/Vol] 7 U/L below low threshold 10 - 52 CA-Lulzsauqhh-SW [facility] [address] DO Work Phone: Comment on above: Patients treated wit h Sulfasalazine may generate falsely decreased results for ALT. Anion gap [Moles/Vol] 10 mmol/L 10 - 20 MG- Cardiology-CM [facility] [address] DO Work Phone: AST With P-5'-P [Catalytic activity/Vol] 13 U/L 9 - 39 VM-Xhaehlsmhr-LG [facility] [address] DO Work Phone: Bilirubin [Mass/Vol] 1.2 mg/dL 0.0 - 1.2 MG-C ardiology-CM C [facility] [address] DO Work Phone: Calcium [Mass/Vol] 9.0 mg/dL 8.6 - 10.6 MG-Car diology-CM C [facility] [address] DO Work Phone: Chloride [Moles/Vol] 103 mmol/L 98 - 107 MG-C ardiology-CM [facility] [address] DO Work Phone: CO2 [Moles/Vol] 26 mmol/L 21 - 32 MG-Cardio logy-CM C [facility] [address] DO Work Phone: Creatinine [Mass/Vol] 1.41 mg/dL above high threshold See Below CD-Iecxhofedp-QM [facility] [address] DO Work Phone: Comment on above: Reference Range: 0.5 0 - 1.30 Glucose [Mass/Vol] 187 mg/dL above high threshold 74 - 99 CK-Xnqbrqgxwr-ON C [facility] [address] DO Work Phone: Iron [Mass/Vol] 16 ug/dL below low threshold 35 - 150 DA-Znjvcphopu-YW [facility] [address] DO Work Phone: Iron binding capacity [Mass/Vol] >466 Abnormal 240 - 445 HY-Idpawuhxxh-TI C [facility] [address] DO Work Phone: Comment on above: Interpret results wi th caution.One or more analytes used in this calculation is outside of the analytical measurement range. LDH [Catalytic activity/Vol] 267 U/L above high threshold 84 - 246 QW-Zwfrspfxhy-FF [facility] [address] DO Work Phone: Potassium [Moles/Vol] 4.1 mmol/L 3.5 - 5.3 MG- Cardiology-CM [facility] [address] DO Work Phone: Protein [Mass/Vol] 6.6 g/dL 6.4 - 8.2 MG-Car diology-CM [facility] [address] DO Work Phone: Sodium [Moles/Vol] 135 mmol/L below low threshold 136 - 145 JS-Qlgwuavmjv-MT C [facility] [address] DO Work Phone: Urea nitrogen [Mass/Vol] 25 mg/dL above high threshold 6 - 23 SA-Qyfjxjuixb-GQ [facility] [address] DO Work Phone: Glucose [Mass/Vol] 204 mg/dL above high threshold 74 - 99 LW-Fgffbprdnx-NZ [facility] [address] DO Work Phone: Glucose [Mass/Vol] 95 mg/dL 74 - 99 MG-Car diology-CM C [facility] [address] DO Work Phone: Laboratory - Coagulationon 1 05-24-2020 aPTT Coag (PPP) [Time] 32 s 26 - 39 HQ-Lbezialgod-LU C [facility] [address] DO Work Phone: Comment on above: Note new reference r alexsandra as of 03/21/2021 at 10:00am. INR Coag (PPP) [Relative time] 1.9 {INR} above high threshold 0.9 - 1.1 IM-Rxzmguwqpt-FC [facility] [address] DO Work Phone: PT Coag (PPP) [Time] 22.6 s above high threshold 9.8 - 13.4 QS-Pmmcdhsbed-JY C [facility] [address] DO Work Phone: Comment on above: Note new reference r alexsandra as of 03/21/2021 at 10:00am. INR Coag (PPP) [Relative time] 1.9 {INR} above high threshold 0.9 - 1.1 QW-Xhlwpdjqei-PL [facility] [address] DO Work Phone: PT Coag (PPP) [Time] 22.4 s above high threshold 9.8 - 13.4 ED-Schtnjyqez-LD C [facility] [address] DO Work Phone: Comment on above: Note new reference r alexsandra as of 03/21/2021 at 10:00am. Laboratory - Hematology and Cell countson 03-23-2021 Basophils/100 WBC (Bld) 0.0 % 0.0 - 2.0 IS-Dppkvugllg-VT C [facility] [address] DO Work Phone: Erythrocyte distribution width (RBC) [Ratio] 18.0 % above high threshold See Below ZH-Bgshwsuymx-IQ C [facility] [address] DO Work Phone: Comment on above: Reference Range: 11. 5 - 14.5 Hematocrit (Bld) [Volume fraction] 29.2 % below low threshold See Below RA-Wqnlcgdmtt-HX [facility] [address] DO Work Phone: Comment on above: Reference Range: 41. 0 - 52.0 Hemoglobin (Bld) [Mass/Vol] 8.2 g/dL below low threshold See Below ZC-Hxnzoqsyfq-HX C [facility] [address] DO Work Phone: Comment on above: Reference Range: 13. 5 - 17.5 Lymphocytes/100 WBC (Bld) 17.0 % See Below PX-Fssxyutjvt-RD [facility] [address] DO Work Phone: Comment on above: Reference Range: 13. 0 - 44.0 MCHC (RBC) [Mass/Vol] 28.1 g/dL below low threshold See Below FP-Fftihkvnef-ND [facility] [address] DO Work Phone: Comment on above: Reference Range: 32. 0 - 36.0 MCV (RBC) [Entitic vol] 88 fL 80 - 100 BF-Fenjdtzmyz-IX [facility] [address] DO Work Phone: Monocytes/100 WBC (Bld) 11.0 % 2.0 - 10.0 ZC-Ksqrxkbwmp-GT [facility] [address] DO Work Phone: Platelets (Bld) [#/Vol] 147 10*3/uL below low threshold 150 - 450 AL-Npbwaedbtk-GZ [facility] [address] DO Work Phone: RBC (Bld) [#/Vol] 3.33 {x10E12/L} below low threshold See Below XT-Qqhbljhdid-VM [facility] [address] DO Work Phone: Comment on above: Reference Range: 4.5 0 - 5.90 WBC (Bld) [#/Vol] 5.4 10*3/uL 4.4 - 11.3 MG-Car diology-CM C [facility] [address] DO Work Phone: Erythrocyte distribution width (RBC) [Ratio] 18.6 % above high threshold See Below PP-Ujtjwhttzu-RY C [facility] [address] DO Work Phone: Comment on above: Reference Range: 11. 5 - 14.5 Hematocrit (Bld) [Volume fraction] 24.4 % below low threshold See Below TA-Sorwqyffen-AM C [facility] [address] DO Work Phone: Comment on above: Reference Range: 41. 0 - 52.0 Hemoglobin (Bld) [Mass/Vol] 6.8 g/dL below low threshold See Below HC-Nxzuqqqhtc-XS [facility] [address] DO Work Phone: Comment on above: Reference Range: 13. 5 - 17.5 MCHC (RBC) [Mass/Vol] 27.9 g/dL below low threshold See Below BG-Peihuuqtgj-SE [facility] [address] DO Work Phone: Comment on above: Reference Range: 32. 0 - 36.0 MCV (RBC) [Entitic vol] 87 fL 80 - 100 DD-Ugalxcztdb-XL [facility] [address] DO Work Phone: Platelets (Bld) [#/Vol] 158 10*3/uL 150 - 450 ZD-Kltorzkquo-HD [facility] [address] DO Work Phone: RBC (Bld) [#/Vol] 2.81 {x10E12/L} below low threshold See Below TY-Chnlduagky-WV [facility] [address] DO Work Phone: Comment on above: Reference Range: 4.5 0 - 5.90 WBC (Bld) [#/Vol] 5.9 10*3/uL 4.4 - 11.3 MG-Car diology-CM C [facility] [address] DO Work Phone: Magnesium, Serumon Magnesium [Mass/Vol] 2.19 mg/dL See Below MG-C ardiology-CM C [facility] [address] DO Work Phone: Comment on above: Reference Range: 1.6 0 - 2.40 Magnesium [Mass/Vol] 2.33 mg/dL See Below MG-C ardiology-CM C [facility] [address] DO Work Phone: Comment on above: Reference Range: 1.6 0 - 2.40 No Panel Informationon 03-23 Few MG-Cardiology- CM [facility] [address] DO Work Phone: Mild MG-Cardiology- CM [facility] [address] DO Work Phone: See Below MG-Cardiology- CM C [facility] [address] DO Work Phone: 0.00 {x10E9/L} See Below MG-Cardiol ogy-CM [facility] [address] DO Work Phone: Comment on above: Reference Range: 0.0 0 - 0.10 0.11 {x10E9/L} See Below MG-Cardiol ogy-CM C [facility] [address] DO Work Phone: Comment on above: Reference Range: 0.0 0 - 0.70 0.59 {x10E9/L} See Below MG-Cardiol ogy-CM C [facility] [address] DO Work Phone: Comment on above: Reference Range: 0.1 0 - 1.00 0.92 {x10E9/L} below low threshold See Below IZ-Hzvknuzpyu-IR C [facility] [address] DO Work Phone: Comment on above: Reference Range: 1.2 0 - 4.80 3.78 {x10E9/L} See Below MG-Cardiol ogy-CM C [facility] [address] DO Work Phone: Comment on above: Reference Range: 1.2 0 - 7.00 Reference Range: 1.2 0 - 7.70 2.0 % 0.0 - 6.0 MG-Cardiology- CM C [facility] [address] DO Work Phone: 70.0 % See Below MG-Cardiology- CM [facility] [address] DO Work Phone: Comment on above: Reference Range: 40. 0 - 80.0 Percent differential counts (%) should be interpreted in the context of the absolute cell counts (cells/L). 1.3 {/100_WBC} 0.0-0.0 MG-Cardiol ogy-CM [facility] [address] DO Work Phone: NOT CALC. 25 - 45 MG-Cardiology- CM C [facility] [address] DO Work Phone: Comment on above: One or more analytes used in this calculation is outside of the analytical measurement range.Calculation cannot be performed. 62 {mL/min/1.73m2} >60 MG-Car diology-CM C [facility] [address] DO Work Phone: Comment on above: CALCULATIONS OF ERICA MATED GFR ARE PERFORMED USING THE MDRD STUDY EQUATION FOR THE IDMS-TRACEABLE CREATININE METHODS. CLIN CHEM 2007;53:766-72 51 {mL/min/1.73m2} Abnormal >60 MG-Car diology-CM C [facility] [address] DO Work Phone: ORDER RECD MG-Cardiology- CM [facility] [address] DO Work Phone: ORDER RECD MG-Cardiology- CM [facility] [address] DO Work Phone: 1.2 {/100_WBC} 0.0-0.0 MG-Cardiol ogy-CM C [facility] [address] DO Work Phone: Renal Function Panelon 03-23 Albumin BCP dye [Mass/Vol] 3.8 g/dL 3.4 - 5.0 VC-Qsvkngenje-GC C [facility] [address] DO Work Phone: Anion gap [Moles/Vol] 12 mmol/L 10 - 20 MG- Cardiology-CM C [facility] [address] DO Work Phone: Calcium [Mass/Vol] 8.6 mg/dL 8.6 - 10.6 MG-Car diology-CM C [facility] [address] DO Work Phone: Chloride [Moles/Vol] 107 mmol/L 98 - 107 MG-C ardiology-CM [facility] [address] DO Work Phone: CO2 [Moles/Vol] 22 mmol/L 21 - 32 MG-Cardio logy-CM C [facility] [address] DO Work Phone: Creatinine [Mass/Vol] 1.08 mg/dL See Below MG- Cardiology-CM [facility] [address] DO Work Phone: Comment on above: Reference Range: 0.5 0 - 1.30 Glucose [Mass/Vol] 91 mg/dL 74 - 99 MG-Car diology-CM C [facility] [address] DO Work Phone: Phosphate [Mass/Vol] 2.9 mg/dL 2.5 - 4.9 MG-C ardiology-CM C [facility] [address] DO Work Phone: Comment on [...] mmol/L 136 - 145 MG-Car diology-CM C [facility] [address] DO Work Phone: Urea nitrogen [Mass/Vol] 19 mg/dL 6 - 23 PT-Soryfbpvmi-UB [facility] [address] DO Work Phone: Renal Function Panel >60 >60 MG-C ardiology-CM [facility] [address] DO Work Phone: Comment on above: CALCULATIONS OF ERICA MATED GFR ARE PERFORMED USING THE MDRD STUDY EQUATION FOR THE IDMS-TRACEABLE CREATININE METHODS. CLIN CHEM 2007;53:766-72 Vitamin B12, Serumon 021 Cobalamin (Vitamin B12) [Mass/Vol] 397 pg/mL 211 - 911 YM-Mowasnscxa-IV [facility] [address] DO Work Phone: Activated Partial Thrombopla stin Timeon 03-22-2021 aPTT Coag (PPP) [Time] 32 s 26 - 39 CT-Ndwnofmlxl-OE C [facility] [address] DO Work Phone: Comment on above: Note new reference r alexsandra as of 03/21/2021 at 10:00am. Complete Blood Count + Diffe rentialon 03-22-2021 Basophils/100 WBC (Bld) 0.5 % 0.0 - 2.0 MO-Okrflbreuu-JA [facility] [address] DO Work Phone: Erythrocyte distribution width (RBC) [Ratio] 19.4 % above high threshold See Below WA-Aytsedoczw-XA [facility] [address] DO Work Phone: Comment on above: Reference Range: 11. 5 - 14.5 Hematocrit (Bld) [Volume fraction] 22.6 % below low threshold See Below UP-Yapzxvuojl-VG [facility] [address] DO Work Phone: Comment on above: Reference Range: 41. 0 - 52.0 Hemoglobin (Bld) [Mass/Vol] 6.3 g/dL Critically low See Below FF-Rqfutbwvfp-IC C [facility] [address] DO Work Phone: Comment on above: Reference Range: 13. 5 - 17.5CRIT TO ERIC HALEY 2IDS, 03/22/2021 19:44 Lymphocytes/100 WBC (Bld) 15.9 % See Below YS-Royouqwfnw-UH [facility] [address] DO Work Phone: Comment on above: Reference Range: 13. 0 - 44.0 MCHC (RBC) [Mass/Vol] 27.9 g/dL below low threshold See Below VS-Xbharzpgrq-XH [facility] [address] DO Work Phone: Comment on above: Reference Range: 32. 0 - 36.0 MCV (RBC) [Entitic vol] 86 fL 80 - 100 DI-Tzqylkwrmo-DU [facility] [address] DO Work Phone: Monocytes/100 WBC (Bld) 15.2 % 2.0 - 10.0 LI-Yosocifqhf-TK C [facility] [address] DO Work Phone: Neutrophils/100 WBC (Bld) 64.6 % See Below JI-Ggzwgdfraz-ZD C [facility] [address] DO Work Phone: Comment on above: Reference Range: 40. 0 - 80.0 Platelets (Bld) [#/Vol] 178 10*3/uL 150 - 450 QX-Svzwpmkvah-JV [facility] [address] DO Work Phone: RBC (Bld) [#/Vol] 2.62 {x10E12/L} below low threshold See Below SV-Aelbekllfk-BQ [facility] [address] DO Work Phone: Comment on above: Reference Range: 4.5 0 - 5.90 WBC (Bld) [#/Vol] 6.0 10*3/uL 4.4 - 11.3 MG-Car diology-CM C [facility] [address] DO Work Phone: Complete Blood Count + Differential 0.03 {x10E9/L} See Below SS-Euqecaefzu-JQ C [facility] [address] DO Work Phone: Comment on above: Reference Range: 0.0 0 - 0.10 Complete Blood Count + Differential 0.21 {x10E9/L} See Below GW-Ygfdpvqmfg-RM [facility] [address] DO Work Phone: Comment on above: Reference Range: 0.0 0 - 0.70 Complete Blood Count + Differential 0.92 {x10E9/L} See Below UI-Uqbwqakbly-CF [facility] [address] DO Work Phone: Comment on above: Reference Range: 0.1 0 - 1.00 Complete Blood Count + Differential 0.96 {x10E9/L} below low threshold See Below YB-Yembcaujkf-FV [facility] [address] DO Work Phone: Comment on above: Reference Range: 1.2 0 - 4.80 Complete Blood Count + Differential 3.90 {x10E9/L} See Below GU-Tscagjbepc-FP C [facility] [address] DO Work Phone: Comment on above: Reference Range: 1.2 0 - 7.70 Complete Blood Count + Differential 3.5 % 0.0 - 6.0 JA-Ruuycboyav-UK [facility] [address] DO Work Phone: Complete Blood Count + Differential 0.3 % 0.0 - 0.9 BM-Zspwiejdpn-TG [facility] [address] DO Work Phone: Comment on above: Immature Granulocyte Count (IG) includes promyelocytes, myelocytes and metamyelocytes but does not include bands. Percent differential counts (%) should be interpreted in the context of the absolute cell counts (cells/L). Complete Blood Count + Differential 1.3 {/100_WBC} 0.0-0.0 BC-Mbnwtczvbj-JP [facility] [address] DO Work Phone: Coronavirus 2019 RNA by PCR, Screening Asymptomticon 03-22-2021 Coronavirus 2019 RNA by PCR, Screening Asymptomtic Detected Abnormal See Below PW-Gyszdafabh-WM [facility] [address] DO Work Phone: Comment on above: SOURCE: Nasal, Nasop haryngealReference Range: Not Detected.This test has received FDA Emergency Use Authorization (EUA) and has been verified by [facility] ([facility]). This test is only authorized for the duration of time that circumstances exist to justify the authorization of the emergency use of in vitro diagnostic tests for the detection of SARS-CoV-2 virus and/or diagnosis of COVID-19 infection under section 564(b)(1) of the Act, 21 U.S.C. 360bbb-3(b)(1), unless the authorization is terminated or revoked sooner. [facility] is certified under CLIA-88 as qualified to perform high complexity testing. Testing is performed in the [facility] located at [address] [place] [address].SARS-CoV-2/Flu/RSV Multiplex Test: Fact sheet for providers: https://www.fda.gov/media/936552/downloadFact sheet for patients: https://www.fda.gov/media/575050/download Laboratory - Blood bankon ABO group Nom (Bld) A MG-Ca rdiology-CM [facility] [address] DO Work Phone: Blood group antibody screen Ql Negative UG-Wlwulefxda-NU [facility] [address] DO Work Phone: Rh immune globulin screen (Bld) [Interp] Positive MG-Cardiol ogy-CM [facility] [address] DO Work Phone: Laboratory - Chemistry and C hemistry - challengeon 03-22-2021 Albumin BCP dye [Mass/Vol] 4.1 g/dL 3.4 - 5.0 QU-Csuuseciay-VQ [facility] [address] DO Work Phone: ALP [Catalytic activity/Vol] 63 U/L 33 - 120 FE-Quqlbtkpbs-ZF [facility] [address] DO Work Phone: ALT With P-5'-P [Catalytic activity/Vol] 6 U/L below low threshold 10 - 52 UU-Wftfttgbqz-GM [facility] [address] DO Work Phone: Comment on above: Patients treated wit h Sulfasalazine may generate falsely decreased results for ALT. Anion gap [Moles/Vol] 9 mmol/L below low threshold 10 - 20 RC-Abumxesygq-PU [facility] [address] DO Work Phone: AST With P-5'-P [Catalytic activity/Vol] 16 U/L 9 - 39 KY-Ckbodpqjqb-AW [facility] [address] DO Work Phone: Bilirubin [Mass/Vol] 0.7 mg/dL 0.0 - 1.2 MG-C ardiology-CM [facility] [address] DO Work Phone: Calcium [Mass/Vol] 8.9 mg/dL 8.6 - 10.6 MG-Car diology-CM [facility] [address] DO Work Phone: Chloride [Moles/Vol] 104 mmol/L 98 - 107 MG-C ardiology-CM [facility] [address] DO Work Phone: CO2 [Moles/Vol] 26 mmol/L 21 - 32 MG-Cardio logy-CM [facility] [address] DO Work Phone: Creatinine [Mass/Vol] 1.34 mg/dL above high threshold See Below YT-Sixscqjpmk-OE [facility] [address] DO Work Phone: Comment on above: Reference Range: 0.5 0 - 1.30 Glucose [Mass/Vol] 127 mg/dL above high threshold 74 - 99 MB-Idclczdgmk-ZH [facility] [address] DO Work Phone: LDH [Catalytic activity/Vol] 303 U/L above high threshold 84 - 246 EN-Lujlsvzvyi-TQ [facility] [address] DO Work Phone: Potassium [Moles/Vol] 4.3 mmol/L 3.5 - 5.3 MG- Cardiology-CM C [facility] [address] DO Work Phone: Protein [Mass/Vol] 7.4 g/dL 6.4 - 8.2 MG-Car diology-CM [facility] [address] DO Work Phone: Sodium [Moles/Vol] 135 mmol/L below low threshold 136 - 145 OJ-Wbmbrrsqok-VU [facility] [address] DO Work Phone: Urea nitrogen [Mass/Vol] 23 mg/dL 6 - 23 FM-Gtkwyfagwr-QB [facility] [address] DO Work Phone: Laboratory - Coagulationon 1 05-23-2020 INR Coag (PPP) [Relative time] 2.3 {INR} above high threshold 0.9 - 1.1 JE-Qjxrguhbuy-QZ [facility] [address] DO Work Phone: PT Coag (PPP) [Time] 26.5 s above high threshold 9.8 - 13.4 VX-Srzonbgtgx-YH [facility] [address] DO Work Phone: Comment on above: Note new reference r alexsandra as of 03/21/2021 at 10:00am. Laboratory - Hematology and Cell countson 03-22-2021 Erythrocyte distribution width (RBC) [Ratio] 19.0 % above high threshold See Below YG-Tyvrjrvjlr-OH [facility] [address] DO Work Phone: Comment on above: Reference Range: 11. 5 - 14.5 Hematocrit (Bld) [Volume fraction] 23.7 % below low threshold See Below OU-Qmvphkacie-CT [facility] [address] DO Work Phone: Comment on above: Reference Range: 41. 0 - 52.0 Hemoglobin (Bld) [Mass/Vol] 6.7 g/dL below low threshold See Below GJ-Yfpelzqdtu-PA [facility] [address] DO Work Phone: Comment on above: Reference Range: 13. 5 - 17.5 MCHC (RBC) [Mass/Vol] 28.3 g/dL below low threshold See Below SL-Qjjkjixfak-OR [facility] [address] DO Work Phone: Comment on above: Reference Range: 32. 0 - 36.0 MCV (RBC) [Entitic vol] 88 fL 80 - 100 UD-Odrrappjon-HJ [facility] [address] DO Work Phone: Platelets (Bld) [#/Vol] 145 10*3/uL below low threshold 150 - 450 RG-Hahggephmm-EK [facility] [address] DO Work Phone: RBC (Bld) [#/Vol] 2.69 {x10E12/L} below low threshold See Below DA-Jnhfasnypw-RB [facility] [address] DO Work Phone: Comment on above: Reference Range: 4.5 0 - 5.90 WBC (Bld) [#/Vol] 6.0 10*3/uL 4.4 - 11.3 MG-Car diology-CM [facility] [address] DO Work Phone: No Panel Informationon 03-22 1.5 {/100_WBC} 0.0-0.0 MG-Cardiol ogy-CM [facility] [address] DO Work Phone: ORDER RECD MG-Cardiology- CM [facility] [address] DO Work Phone: 65 {mL/min/1.73m2} >60 MG-Car diology-CM [facility] [address] DO Work Phone: Comment on above: CALCULATIONS OF ERICA MATED GFR ARE PERFORMED USING THE MDRD STUDY EQUATION FOR THE IDMS-TRACEABLE CREATININE METHODS. CLIN CHEM 2007;53:766-72 54 {mL/min/1.73m2} Abnormal >60 MG-Car diology-CM [facility] [address] DO Work Phone: [email or web address]?PatientID= [id number]&Date=2020&Time=17%3a00%3a4 0%3a00&TestType=ECG&S ite=1&OutputType=PDF& Ext=PDF CV-Axjtyzkdvj-NG [facility] [address] DO Work Phone: Please see ED Provider Note for formal interpretation GN-Cqwxizyklj-YE [facility] [address] DO Work Phone: Normal MG-Cardiology- CM [facility] [address] DO Work Phone: [phone] MG-Cardiology- CM [facility] [address] DO Work Phone: [phone] MG-Cardiology- CM [facility] [address] DO Work Phone: 179 1 MG-Cardiology- CM [facility] [address] DO Work Phone: 13 1 MG-Cardiology- CM [facility] [address] DO Work Phone: 39 1 MG-Cardiology- CM [facility] [address] DO Work Phone: 269 1 MG-Cardiology- CM [facility] [address] DO Work Phone: 539 1 MG-Cardiology- CM [facility] [address] DO Work Phone: 468 1 MG-Cardiology- CM [facility] [address] DO Work Phone: 140 1 MG-Cardiology- CM [facility] [address] DO Work Phone: 83 1 MG-Cardiology- CM [facility] [address] DO Work Phone: 80 1 MG-Cardiology- CM [facility] [address] DO Work Phone: Occult Blood, Stoolon 2020 Hemoglobin.gastrointe stinal Ql (Stl) Canceled DV-Iotzissgbe-UF C [place] [facility] [address] DO Work Phone: Comment on above: SOURCE: Stool Radiologyon 03-22-2021 XR Chest Single view Normal MG-C ardiology-CM C [place] [facility] [address] DO Work Phone: Reticulocyte Counton 021 Reticulocyte Count 15 pg below low threshold 28 - 38 KX-Vcyuhdekqe-CI C [place] [facility] [address] DO Work Phone: Reticulocyte Count 16.3 % above high threshold 0.0 - 16.0 GG-Saptxkfhpm-OK [facility] [address] DO Work Phone: Reticulocyte Count 0.079 {[id number]/L} See Below GB-Dmfcifvmnq-PG C [facility] [address] DO Work Phone: Comment on above: Reference Range: 0.0 22 - 0.118 Reticulocyte Count 3.0 % above high threshold 0.5 - 2.0 HV-Kfzihvzdba-OB [facility] [address] DO Work Phone: Urinalysison 03-22-2021 Color (U) YELLOW See Below MG-Cardiology- CM C [facility] [address] DO Work Phone: Comment on above: Reference Range: STR AW,YELLOW Glucose Ql (U) >=500 (3+) Abnormal NEGATIVE MG-Cardiol ogy-CM C [facility] [address] DO Work Phone: Ketones Ql (U) Negative NEGATIVE MG-Cardiol ogy-CM [facility] [address] DO Work Phone: Leukocyte esterase Test strip Ql (U) Negative NEGATIVE MG-Cardiology- CM [facility] [address] DO Work Phone: pH (U) 7.0 [pH] 5.0 - 8.0 MG-Cardiology- CM C [facility] [address] DO Work Phone: Protein (U) [Mass/Vol] Negative NEGATIVE IN-Xmoztwrdws-UH [facility] [address] DO Work Phone: RBC (U) [#/Vol] Negative NEGATIVE MG-Cardio logy-CM [facility] [address] DO Work Phone: Specific gravity (U) [Rel density] 1.014 1 See Below PP-Pahhzkhywr-EE [facility] [address] DO Work Phone: Comment on above: Reference Range: 1.0 05 - 1.035 Urinalysis Negative NEGATIVE MG-Cardiology- CM [facility] [address] DO Work Phone: Urinalysis 4.0 mg/dL above high threshold 0.0 - 1.9 LV-Dugcyfldmi-OA [facility] [address] DO Work Phone: Comment on above: SOME PIGMENTS AND ME DICATIONS MAY CAUSE AFALSE POSITIVE UROBILINOGEN Urinalysis CLEAR CLEAR MG-Cardiology- CM [facility] [address] DO Work Phone: LVAD Flowsheeton 01-31-2021 LVAD Flowsheet 3.9 1 MG-Cardiol ogy-CM C [facility] [address] [place] Work Phone: LVAD Flowsheet 9600 1 MG-Cardiol ogy-CM [facility] [address] [place] Work Phone: LVAD Flowsheet 4.1 1 MG-Cardiol ogy-CM [facility] [address] [place] Work Phone: LVAD Flowsheet 5.3 1 MG-Cardiol ogy-CM C [facility] [address] [place] Work Phone: LVAD Flowsheet multiple PI events noted DS-Vmoewluucc-WK [facility] [address] [place] Work Phone: Tobacco Screening.on 021 Fall risk assessment a) No falls within the last year ZT-Papljtyknz-ZL [facility] [address] [place] Work Phone: Tobacco use status CPHS b) No CA-Qidlvpypos-VC [facility] [address] [place] Work Phone: LVAD Flowsheeton 08-29-2020 LVAD Flowsheet 5.0 1 MG-Cardiol ogy-CM [facility] [address] [place] Work Phone: LVAD Flowsheet 5.9 1 MG-Cardiol ogy-CM C [facility] [address] [place] Work Phone: LVAD Flowsheet 9600 1 MG-Cardiol ogy-CM [facility] [address] [place] Work Phone: LVAD Flowsheet low voltage advisory and PI events noted. UO-Sronwmkgcv-CK [facility] [address] [place] Work Phone: Vital Signs Date Time Vital Sign Value Performing Clinician Facility 10-29-2023 13:09-0400 Body temperature 97.5 [degF] [employer] [place] Work Phone: [facility] 10-29-2023 13:09-0400 Heart rate 88 /min Chair Sera Work Phone: [facility] 10-29-2023 13:09-0400 Respiratory rate 20 /min Chair Sera Work Phone: [facility] 10-29-2023 13:09-0400 SaO2% (BldA) [Mass fraction] 94 % Chair Sera Work Phone: [facility] 10-15-2023 11:53-0400 Body mass index (BMI) [Ratio] 34.93 kg/m2 Ailyn Friend MD Work Phone: [facility] 10-15-2023 11:53-0400 Body temperature 97.59 [degF] Ailyn Friend MD Work Phone: [facility] 10-15-2023 11:53-0400 Body weight 115.2 kg Ailyn rFiend MD Work Phone: [facility] 10-15-2023 11:53-0400 Respiratory rate 16 /min Ailyn Friend MD Work Phone: [facility] 10-15-2023 11:53-0400 SaO2% (BldA) [Mass fraction] 94 % Ailyn Friend MD Work Phone: [facility] 09-10-2023 14:04-0400 Body mass index (BMI) [Ratio] 35.77 kg/m2 John Solitario MD Work Phone: [facility] 09-10-2023 14:04-0400 Body temperature 97.11 [degF] John Solitario MD Work Phone: [facility] 09-10-2023 14:04-0400 Body weight 116.35 kg John Solitario MD Work Phone: [facility] 09-10-2023 14:04-0400 Diastolic blood pressure 51 mm[Hg] John Solitario MD Work Phone: [facility] 09-10-2023 14:04-0400 Heart rate 81 /min John Solitario MD Work Phone: [facility] 09-10-2023 14:04-0400 Systolic blood pressure 79 mm[Hg] John Solitario MD Work Phone: [facility] 06-05-2023 13:48-0500 Body height 180.3 cm Aisha Charbel ASSOCIATE PROFESSOR OF GEOLOGY-APPLICATION ARCHITECT MANAGER Work Phone: [facility] 06-05-2023 13:48-0500 Body mass index (BMI) [Ratio] 32.5 kg/m2 Aisha Enriquez ASSOCIATE PROFESSOR OF GEOLOGY-APPLICATION ARCHITECT MANAGER Work Phone: [facility] 06-05-2023 13:48-0500 Body weight 105.69 kg Aisha Enriquez ASSOCIATE PROFESSOR OF GEOLOGY-APPLICATION ARCHITECT MANAGER Work Phone: [facility] 05-27-2023 08:56-0500 Body height 181.6 cm Joleen Herrera LEAD JAVASCRIPT ENGINEER Work Phone: [facility] 05-27-2023 08:56-0500 Body mass index (BMI) [Ratio] 33.45 kg/m2 Joleen Herrera LEAD JAVASCRIPT ENGINEER Work Phone: [facility] 05-27-2023 08:56-0500 Body temperature 97.5 [degF] Joleen Herrera LEAD JAVASCRIPT ENGINEER Work Phone: [facility] 05-27-2023 08:56-0500 Body weight 110.31 kg Joleen Herrera LEAD JAVASCRIPT ENGINEER Work Phone: [facility] 05-27-2023 08:56-0500 Heart rate 83 /min Joleen Herrera LEAD JAVASCRIPT ENGINEER Work Phone: [facility] 05-27-2023 08:56-0500 Respiratory rate 17 /min Joleen Herrera LEAD JAVASCRIPT ENGINEER Work Phone: [facility] 05-27-2023 08:56-0500 SaO2% (BldA) [Mass fraction] 94 % Joleen Herrera LEAD JAVASCRIPT ENGINEER Work Phone: [facility] 05-24-2023 15:50-0500 Body temperature 97.7 [degF] Janene Negrete MD PhD Work Phone: [facility] 05-24-2023 15:50-0500 Heart rate 81 /min Janene Negrete MD PhD Work Phone: [facility] 05-24-2023 15:50-0500 Respiratory rate 16 /min Janene Negrete MD PhD Work Phone: [facility] 05-24-2023 15:50-0500 SaO2% (BldA) [Mass fraction] 97 % Janene Negrete MD PhD Work Phone: [facility] 05-24-2023 04:11-0500 Body mass index (BMI) [Ratio] 32.27 kg/m2 Janene Negrete MD PhD Work Phone: [facility] 05-24-2023 04:11-0500 Body weight 106.9 kg Janene Negrete MD PhD Work Phone: [facility] 05-19-2023 12:50-0500 Body height 182 cm Janene Negrete MD PhD Work Phone: [facility] 04-07-2023 15:34-0500 Body temperature 97.34 [degF] [facility] 04-07-2023 15:34-0500 Diastolic blood pressure 0 mm[Hg] [facility] 04-07-2023 15:34-0500 Heart rate 80 /min [facility] 04-07-2023 15:34-0500 Respiratory rate 18 /min [facility] 04-07-2023 15:34-0500 SaO2% (BldA) [Mass fraction] 96 % [facility] 04-07-2023 15:34-0500 Systolic blood pressure 82 mm[Hg] [facility] 01-11-2023 10:43-0400 Body height 181.6 cm Ailyn Friend MD Work Phone: [facility] 01-11-2023 10:43-0400 Body temperature 97.3 [degF] Ailyn Friend MD Work Phone: [facility] 01-11-2023 10:43-0400 Body weight 113.94 kg Ailyn Friend MD Work Phone: [facility] 01-11-2023 10:43-0400 Respiratory rate 18 /min Ailyn Friend MD Work Phone: [facility] 01-11-2023 10:43-0400 SaO2% (BldA) [Mass fraction] 97 % Ailyn Friend MD Work Phone: [facility] 08-15-2022 13:52-0400 Body mass index (BMI) [Ratio] 34.45 kg/m2 Joleen Herrera Work Phone: PY-Tbgfpuzbwd-MWM [facility] [address] [place] Work Phone: 08-15-2022 13:52-0400 Body surface area Derived from formula 2.31 m2 Joleen Herrera Work Phone: WL-Qekfdfawid-GWR [facility] [address] [place] Work Phone: 08-15-2022 13:52-0400 Body weight 112.04 kg Joleen Herrera Work Phone: LY-Ikwcrakezk-QTY [facility] [address] [place] Work Phone: 08-15-2022 13:52-0400 Heart rate 88 /min Joleen Herrera Work Phone: JD-Djskcgznae-LSQ [facility] [address] [place] Work Phone: 08-15-2022 13:52-0400 SaO2% (BldA) [Mass fraction] 93 % Joleen Herrera Work Phone: MS-Jdkbnpbacf-IBF [facility] [address] [place] Work Phone: 08-15-2022 13:52-0400 0 1 Joleen Herrera Work Phone: MU-Clfhqarfvm-XRK [facility] [address] [place] Work Phone: Comment on above: [employer] 01-25-2022 13:43-0400 Body height 180.34 cm Joleen Herrera Work Phone: MO-Bbddsngbkr-MNN [facility] [address] [place] Work Phone: 01-25-2022 13:43-0400 Body mass index (BMI) [Ratio] 34.31 kg/m2 Joleen Herrera Work Phone: AY-Ynztfnmkue-QNI [facility] [address] [place] Work Phone: 01-25-2022 13:43-0400 Body mass index (BMI) [Ratio] 35.3 kg/m2 Joleen Herrera Work Phone: UU-Szqwvnmbhs-PWU [facility] [address] [place] Work Phone: 01-25-2022 13:43-0400 Body surface area Derived from formula 2.3 m2 Joleen Herrera Work Phone: HV-Xqydxgefls-WUX [facility] [address] [place] Work Phone: 01-25-2022 13:43-0400 Body surface area Derived from formula 2.33 m2 Joleen Herrera Work Phone: PO-Irgdzsesxx-COB [facility] [address] [place] Work Phone: 01-25-2022 13:43-0400 Body weight 111.59 kg Joleen Herrera Work Phone: GN-Ewvvcmozdb-XBE [facility] [address] [place] Work Phone: 01-25-2022 13:43-0400 Body weight 114.82 kg Joleen Herrera Work Phone: QS-Zzhvimebdm-EIE [facility] [address] [place] Work Phone: 01-25-2022 13:43-0400 Diastolic blood pressure 81 mm[Hg] Joleen Herrera Work Phone: CW-Vyklxaahxv-KCA [facility] [address] [place] Work Phone: 01-25-2022 13:43-0400 Heart rate 80 /min Joleen Herrera Work Phone: FT-Tlmpyiwkqo-QQR [facility] [address] [place] Work Phone: 01-25-2022 13:43-0400 SaO2% (BldA) [Mass fraction] 94 % Joleen Herrera Work Phone: YM-Ufydadaiuc-QDA [facility] [address] [place] Work Phone: 01-25-2022 13:43-0400 Systolic blood pressure 104 mm[Hg] Joleen Herrera Work Phone: PG-Jgwnytproi-XIV [facility] [address] [place] Work Phone: 01-25-2022 13:43-0400 0 1 Joleen Herrera Work Phone: SO-Hgfaqwkpyw-RZE [facility] [address] [place] Work Phone: Comment on above: [employer] 01-10-2022 15:02-0400 Body height 181.6 cm Ailyn Friend MD Work Phone: [facility] 01-10-2022 15:02-0400 Body temperature 97.2 [degF] Ailyn Friend MD Work Phone: [facility] 01-10-2022 15:02-0400 Body weight 115.39 kg Ailyn Friend MD Work Phone: [facility] 01-10-2022 15:02-0400 Diastolic blood pressure 13 mm[Hg] Ailyn Friend MD Work Phone: [facility] 01-10-2022 15:02-0400 Heart rate 70 /min Ailyn Friend MD Work Phone: [facility] 01-10-2022 15:02-0400 Respiratory rate 18 /min Ailyn Friend MD Work Phone: [facility] 01-10-2022 15:02-0400 SaO2% (BldA) [Mass fraction] 97 % Ailyn Friend MD Work Phone: [facility] 01-10-2022 15:02-0400 Systolic blood pressure 99 mm[Hg] Ailyn Friend MD Work Phone: [facility] 12-28-2021 10:04-0400 Body temperature 96.8 [degF] Joleentello Kuhnhholz Other Phone: [facility] 12-28-2021 10:04-0400 Diastolic blood pressure 67 mm[Hg] Joleen Sri Kuhnhholz Other Phone: [facility] 12-28-2021 10:04-0400 Heart rate 79 /min Joleen Sri Kuhnhholz Other Phone: [facility] 12-28-2021 10:04-0400 Respiratory rate 18 /min Joleen Sri Kuhnhholz Other Phone: [facility] 12-28-2021 10:04-0400 SaO2% (BldA) [Mass fraction] 97 % Joleen Sri Aichholz Other Phone: [facility] 12-28-2021 10:04-0400 Systolic blood pressure 93 mm[Hg] Joleen Sri Aichholz Other Phone: [facility] 12-28-2021 06:15-0400 Body weight 110.3 kg Joleen Sri Kuhnhholz Other Phone: [facility] 11-02-2021 10:49-0400 Body height 181.6 cm Jerrell Kraus MD Work Phone: [facility] 11-02-2021 10:49-0400 Body temperature 97.5 [degF] Jerrell Kraus MD Work Phone: [facility] 11-02-2021 10:49-0400 Body weight 117.39 kg Jerrell Kraus MD Work Phone: [facility] 11-02-2021 10:49-0400 Diastolic blood pressure 71 mm[Hg] Jerrell Kraus MD Work Phone: [facility] 11-02-2021 10:49-0400 Heart rate 94 /min Jerrell Kraus MD Work Phone: [facility] 11-02-2021 10:49-0400 Respiratory rate 16 /min Jerrell Kraus MD Work Phone: [facility] 11-02-2021 10:49-0400 SaO2% (BldA) [Mass fraction] 95 % Jerrell Kraus MD Work Phone: [facility] 11-02-2021 10:49-0400 Systolic blood pressure 104 mm[Hg] Jerrell Kraus MD Work Phone: [facility] 10-05-2021 10:45-0400 Body height 181.6 cm Jerrell Kraus MD Work Phone: [facility] 10-05-2021 10:45-0400 Body temperature 97.9 [degF] Jerrell Kraus MD Work Phone: [facility] 10-05-2021 10:45-0400 Body weight 115.58 kg Jerrell Kraus MD Work Phone: [facility] 10-05-2021 10:45-0400 Diastolic blood pressure 72 mm[Hg] Jerrell Kraus MD Work Phone: [facility] 10-05-2021 10:45-0400 Heart rate 78 /min Jerrell Kraus MD Work Phone: [facility] 10-05-2021 10:45-0400 Respiratory rate 16 /min Jerrell Kraus MD Work Phone: [facility] 10-05-2021 10:45-0400 SaO2% (BldA) [Mass fraction] 96 % Jerrell Kraus MD Work Phone: [facility] 10-05-2021 10:45-0400 Systolic blood pressure 89 mm[Hg] Jerrell Kraus MD Work Phone: [facility] 10-03-2021 14:13-0400 Body height 180.34 cm Joleen Fierro Bamtezbrant Work Phone: QM-Elzkjyuwdn-QDX [facility] [address] [place] Work Phone: 10-03-2021 14:13-0400 Body mass index (BMI) [Ratio] 34.78 kg/m2 Joleen Fierro Sharon Work Phone: BU-Psmsvuqsml-QZC [facility] [address] [place] Work Phone: 10-03-2021 14:13-0400 Body surface area Derived from formula 2.32 m2 Joleen Fierro Bamtezbrant Work Phone: VV-Jyifvwhvvq-JKC [facility] [address] [place] Work Phone: 10-03-2021 14:13-0400 Body weight 113.12 kg Joleen Fierro Sharon Work Phone: SB-Vrnaevipby-SDP [facility] [address] [place] Work Phone: 10-03-2021 09:16-0400 3.3 1 Joleen Fierro Sharon Work Phone: TO-Tfwjvposkx-OBI [facility] [address] [place] Work Phone: Comment on above: IOINR3 09-21-2021 12:51-0400 Body temperature 97.5 [degF] Jerrell Kraus MD Work Phone: [facility] 09-21-2021 12:51-0400 Body weight 115.67 kg Jerrell Kraus MD Work Phone: [facility] 09-21-2021 12:51-0400 Diastolic blood pressure 41 mm[Hg] Jerrell Kraus MD Work Phone: [facility] 09-21-2021 12:51-0400 Heart rate 46 /min Jerrell Kraus MD Work Phone: [facility] 09-21-2021 12:51-0400 Respiratory rate 16 /min Jerrell Kraus MD Work Phone: [facility] 09-21-2021 12:51-0400 SaO2% (BldA) [Mass fraction] 96 % Jerrell Kraus MD Work Phone: [facility] 09-21-2021 12:51-0400 Systolic blood pressure 81 mm[Hg] Jerrell Kraus MD Work Phone: [facility] 09-12-2021 09:53-0400 2.2 1 Joleen Herrera Work Phone: [facility] Work Phone: Comment on above: IOINR3 09-05-2021 10:32-0400 3.5 1 Joleen Herrera Work Phone: [facility] Work Phone: Comment on above: IOINR3 08-29-2021 10:21-0400 2.8 1 Joleen Herrera Work Phone: [facility] Work Phone: Comment on above: IOINR3 08-24-2021 09:20-0400 2.8 1 Joleen Herrera Work Phone: [facility] Work Phone: Comment on above: IOINR3 04-05-2021 12:16-0500 Body height 180.34 cm Joleen Sri Herrera Work Phone: QF-Ctsbvnrarx-Ifklrvg [facility] 46[address] Work Phone: 04-05-2021 12:16-0500 Body mass index (BMI) [Ratio] 33.47 kg/m2 Joleen Fierro Sharon Work Phone: OT-Ekxrraoxrk-Mtzsjwp [facility] 46[address] Work Phone: 04-05-2021 12:16-0500 Body surface area Derived from formula 2.28 m2 Joleen Fierro Bamhholdane Work Phone: UG-Sbtmqmgnrl-Smqflgq [facility] [address] Work Phone: 04-05-2021 12:16-0500 Body weight 108.86 kg Joleen Sri Herrera Work Phone: UO-Mfdofiaido-Apgvfex [facility] [address] Work Phone: 03-27-2021 17:36-0500 Body temperature 98.06 [degF] Joleen Sri Herrera Other Phone: [facility] 03-27-2021 17:36-0500 Heart rate 81 /min Joleen Sri Herrera Other Phone: [facility] 03-27-2021 17:36-0500 Respiratory rate 18 /min Joleen Herrera Other Phone: [facility] 03-27-2021 17:36-0500 SaO2% (BldA) [Mass fraction] 96 % Joleen Herrera Other Phone: [facility] 03-27-2021 08:00-0500 Body weight 107.3 kg Joleen Herrera Other Phone: [facility] 01-31-2021 12:52-0400 Body height 180.34 cm Joleen Herrera Work Phone: GI-Bacsxktlyg-LTL [facility] [address] [place] Work Phone: 01-31-2021 12:52-0400 Body mass index (BMI) [Ratio] 33.77 kg/m2 Joleen Herrera Work Phone: JK-Hsizjdfwhy-NTT [facility] [address] [place] Work Phone: 01-31-2021 12:52-0400 Body surface area Derived from formula 2.29 m2 Joleen Herrera Work Phone: NK-Ftygxbktmh-HEC [facility] [address] [place] Work Phone: 01-31-2021 12:52-0400 Body weight 109.83 kg Joleen Herrera Work Phone: EI-Itezntmeel-KSK [facility] [address] [place] Work Phone: 01-31-2021 12:52-0400 0 1 Joleen Herrera Work Phone: KC-Zqaasncapq-HBD [facility] [address] [place] Work Phone: Comment on above: [facility] 08-29-2020 16:13-0400 Body mass index (BMI) [Ratio] 37.1 kg/m2 Joleen Herrera Work Phone: XK-Cpucpzrina-GHY [facility] [address] [place] Work Phone: 08-29-2020 16:13-0400 Body surface area Derived from formula 2.38 m2 Joleen Herrera Work Phone: DC-Jzoqgvqsqj-WYM [facility] [address] [place] Work Phone: 08-29-2020 16:13-0400 Body weight 120.66 kg Joleen Herrera Work Phone: SS-Ddcebhunsy-PQO [facility] [address] [place] Work Phone: 08-29-2020 16:13-0400 Heart rate 85 /min Joleen Herrera Work Phone: QD-Edlbfbbslr-LDQ [facility] [address] [place] Work Phone: 08-29-2020 16:13-0400 SaO2% (BldA) [Mass fraction] 92 % Joleen Herrera Work Phone: HJ-Ltaqyvoebf-ABQ [facility] [address] [place] Work Phone: 01-26-2020 13:07-0400 BMI (Body Mass Index) 37.94 kg/m2 John ElAmm ZL-Cogeajpgyk-QGS [facility] [address] [place] Work Phone: 01-26-2020 13:07-0400 Body weight 123.38 kg John ElAmm UC-Idxiooyzoo-RI C [facility] [address] [place] Work Phone: 01-26-2020 13:07-0400 BSA (Body Surface Area) 2.4 m2 John ElAmm QB-Ibsxzwlewh-QGD [facility] [address] [place] Work Phone: 01-26-2020 13:07-0400 Height 180.34 cm John ElAmm CB-Bnlsfslgjc-ZL C [facility] [address] [place] Work Phone: 01-26-2020 13:07-0400 Pulse (Heart Rate) 76 /min John ElAmm MG-Cardiology -CMC [facility] [address] [place] Work Phone: 01-26-2020 13:07-0400 Pulse Oximetry 97 % John ElAmm ZE-Djuhnlnpow-IU C [facility] [address] [place] Work Phone: Comment on above: Source: RA Encounters Encounter Date Encounter Type Care Provider Facility Start: 11-25-2023 End: 11-25-2023 ambulatory AISHA ENRIQUEZ [facility] Start: 11-25-2023 End: 11-25-2023 ambulatory NOAM EDWARDS [facility] Start: 10-29-2023 End: 10-29-2023 ambulatory Chair Rosey Zamora Work Phone: Hematology/Oncology Comment on above: Iron deficiency anem ia due to chronic blood loss (Primary Dx) Start: 10-25-2023 Social Work Esther JEFFREY Hematolo gy/Oncology Start: 10-17-2023 Telephone encounter Michael Greer RN Work Phone: Hematology/Oncology Comment on above: IV iron Start: 10-15-2023 End: 10-15-2023 ambulatory Ailyn Friend MD Work Phone: Hematology/Oncology Comment on above: Smoldering multiple myeloma (Primary Dx); Abnormal finding of blood chemistry, unspecified Start: 10-15-2023 End: 10-15-2023 Patient encounter procedure Ailyn Friend MD Work Phone: Hematology/Oncology Start: 09-10-2023 End: 09-10-2023 Office outpatient visit 40 minutes John Solitario MD Work Phone: [facility] Comment on above: LVAD (left ventricul ar assist device) present (Multi); HFrEF (heart failure with reduced ejection fraction) (Multi) Start: 09-10-2023 End: 09-10-2023 ambulatory JOHN SOLITARIO [facility] Start: 08-13-2023 End: 08-13-2023 ambulatory JOLEEN AICHHOLZ Not Available Start: 08-02-2023 End: 08-02-2023 Subsequent hospital visit by physician Dalton Hdz [facility] Comment on above: VT (ventricular tach ycardia) (Multi); Cardiomyopathy, unspecified type (Multi) Start: 08-02-2023 End: 08-02-2023 ambulatory [facility] Start: 07-02-2023 End: 07-02-2023 ambulatory JOLEEN AICHHOLZ Not Available Start: 06-17-2023 End: 06-17-2023 Subsequent hospital visit by physician [facility] Comment on above: Cardiomyopathy, unsp ecified (CMS/HCC); Presence of automatic (implantable) cardiac defibrillator Start: 06-17-2023 End: 06-17-2023 ambulatory [facility] Start: 06-14-2023 End: 06-14-2023 Subsequent hospital visit by physician [facility] Comment on above: Cardiomyopathy, unsp ecified (CMS/HCC); Presence of automatic (implantable) cardiac defibrillator Start: 06-14-2023 End: 06-14-2023 ambulatory [facility] Start: 06-11-2023 End: 06-11-2023 Subsequent hospital visit by physician [facility] Comment on above: Cardiomyopathy, unsp ecified (CMS/HCC); Presence of automatic (implantable) cardiac defibrillator Start: 06-11-2023 End: 06-11-2023 [facility] Start: 06-05-2023 End: 06-05-2023 Office outpatient visit 40 minutes Aisha Enriquez APRN-APPLICATION ARCHITECT MANAGER Work Phone: [facility] Comment on above: LVAD (left ventricul ar assist device) present (CMS/HCC) (Primary Dx) Start: 06-05-2023 End: 06-05-2023 ambulatory AISHA ENRIQUEZ [facility] Start: 05-31-2023 Clinisync Result Encounter Joleen Herrera NP Work Phone: [facility] External Department Unsolicited Start: 05-31-2023 Clinisync Result Encounter Joleen Herrera NP Work Phone: [facility] External Department Unsolicited Start: 05-31-2023 End: 05-31-2023 ambulatory [facility] Start: 05-29-2023 End: 05-29-2023 Subsequent hospital visit by physician [facility] Comment on above: Cardiomyopathy, unsp ecified (CMS/HCC); Presence of automatic (implantable) cardiac defibrillator Start: 05-29-2023 End: 05-29-2023 ambulatory [facility] Start: 05-27-2023 End: 05-27-2023 ambulatory [facility] Start: 05-27-2023 End: 05-27-2023 Subsequent hospital visit by physician Mino[facility] Comment on above: Cardiomyopathy, unsp ecified (CMS/HCC); Presence of automatic (implantable) cardiac defibrillator Start: 05-27-2023 End: 05-27-2023 ambulatory JOLEEN HERRERA Not Available Start: 05-27-2023 End: 05-27-2023 Office outpatient visit 25 minutes Joleen Herrera LEAD JAVASCRIPT ENGINEER Work Phone: [facility] Comment on above: Type 2 diabetes luke itus with diabetic polyneuropathy, with long-term current use of insulin (CMS/HCC) (Primary Dx); BMI 33.0-33.9,adult; Chronic systolic heart failure (CMS/HCC); Cardiac arrhythmia, unspecified cardiac arrhythmia type; History of implantable cardioverter-defibrillator (ICD) insertion Start: 05-19-2023 End: 05-24-2023 Evaluation and management of inpatient Janene Negrete MD PhD Work Phone: [place] [phone] Comment on above: ICD (implantable car dioverter-defibrillator) discharge (Primary Dx); HFrEF (heart failure with reduced ejection fraction) (CMS/HCC); History of left ventricular assist device (CMS/HCC); LVAD (left ventricular assist device) present (CMS/HCC); Heart failure (CMS/HCC); Other specified hypothyroidism Start: 04-24-2023 End: 04-24-2023 ambulatory JOLEEN HERRERA Not Available Start: 04-07-2023 End: 04-07-2023 Emergency department patient visit David Johnson Facility:[facility] Start: 04-07-2023 End: 04-07-2023 Emergency department [facility] Start: 02-13-2023 ambulatory [facility] Start: 02-13-2023 End: 02-13-2023 ambulatory [facility] Start: 02-13-2023 [address]EN [address] [facility] Start: 01-11-2023 End: 01-11-2023 Patient encounter procedure Ailyn Friend MD Work Phone: [facility] Start: 01-11-2023 End: 01-11-2023 ambulatory Ailyn Friend MD Work Phone: Hematology/Oncology Comment on above: MGUS (monoclonal juan mopathy of unknown significance) (Primary Dx); Stage 3a chronic kidney disease (HCC) Start: 01-03-2023 End: 01-03-2023 ambulatory JOLEEN SRI HERRERA Facility:[facility] Start: 12-14-2022 Rx Renewal Joleen Sri ann Work Phone: FY-Xjwnyideuw-YAA [facility] [address] [place] Work Phone: Start: 09-18-2022 Telephone encounter Roz Houser Hematology/Oncology Comment on above: Results Start: 08-30-2022 End: 08-31-2022 ambulatory APPLICATION ARCHITECT MANAGER JOLEEN SHARON Facility:[facility]1 Start: 08-22-2022 End: 08-23-2022 ambulatory APPLICATION ARCHITECT MANAGER JOLEEN SHARON Facility:[facility]1 Start: 08-21-2022 End: 08-22-[address] DOCTOR WALKER Facility:[facility]1 Start: 08-16-2022 Patient encounter procedure Joleen Fierro Sharon Work Phone: PJ-Qcotpcpezm-FRG [place] [address] Work Phone: Start: 08-16-2022 BRODIE, Provider : Lainey Renee, Status: Pen, Time: 10:00 AM Joleen Fierro Sharon Work Phone: JW-Friqixliwi-ELD [facility] [address] [place] Work Phone: Start: 08-16-2022 ambulatory Mrs. Joleen Fierro Sharon Facility:[facility] Start: 08-15-2022 Office outpatient vi sit 40 minutes Joleen Fierro Sharon Work Phone: FL-Elqiisgsah-GHZ [facility] [address] [place] Work Phone: Start: 08-15-2022 ambulatory Mrs. Joleen Herrera Facility:[facility] Start: 05-18-2022 AUDIT Joleen Saunders lz Work Phone: GU-Txmhwgzrcf-EIK [facility] [address] [place] Work Phone: Start: 05-17-2022 Rx Renewal Joleen Saunders lz Work Phone: IK-Xeilytjipo-KLN [facility] [place] Work Phone: Start: 05-08-2022 End: 05-09-2022 ambulatory APPLICATION ARCHITECT MANAGER JOLEEN HERRERA Facility:[facility]1 Start: 04-01-2022 End: 04-01-[address] ROBIN GROVE Facility: Start: 01-30-2022 End: 01-31-2022 ambulatory APPLICATION ARCHITECT MANAGER JOLEEN HERRERA Facility: Start: 01-25-2022 Patient encounter procedure Joleen Herrera Work Phone: TK-Xhnjmibivp-XJO [facility] [place] Work Phone: Start: 01-10-2022 End: 01-10-2022 ambulatory Ailyn Friend MD Work Phone: Hematology/Oncology Comment on above: MGUS (monoclonal juan mopathy of unknown significance) (Primary Dx); Abnormal finding of blood chemistry, unspecified Start: 01-10-2022 End: 01-10-2022 Patient encounter procedure Ailyn Friend MD Work Phone: [place] Start: 01-03-2022 Telephone encounter Ailyn mark MD Work Phone: Hematology/Oncology Comment on above: Lab Orders Start: 12-26-2021 End: 12-28-2021 [id number] Start: 11-02-2021 End: 11-02-2021 ambulatory Jerrell Kraus MD Work Phone: Hematology/Oncology Comment on above: MGUS (monoclonal juan mopathy of unknown significance) (Primary Dx); Absent serum haptoglobin; Thrombocytopenia (HCC) Start: 11-02-2021 End: 11-02-2021 Patient encounter procedure Jerrell Kraus MD Work Phone: [facility] Start: 10-20-2021 End: 10-21-2021 ambulatory JENNIFER HERRERA Facility:[facility]1 Start: 10-18-2021 Rx Renewal Joleen Kuhntezho lz Work Phone: AY-Whbptzlycj-WGP [facility] [address] [place] Work Phone: Start: 10-05-2021 End: 10-05-2021 ambulatory Jerrell Kraus MD Work Phone: Hematology/Oncology Comment on above: MGUS (monoclonal juan mopathy of unknown significance) (Primary Dx); Absent serum haptoglobin; Thrombocytopenia (HCC) Start: 10-05-2021 End: 10-05-2021 Patient encounter procedure Jerrell Kraus MD Work Phone: [facility] Start: 10-03-2021 Phys/qhp telephone evaluation 21-30 min Joleen Herrera Work Phone: [facility] [address] [place] Work Phone: Start: 09-28-2021 End: [...] procedure Joleen Herrera Work Phone: [facility] Work Phone: Start: 09-06-2021 End: 09-07-2021 ambulatory APPLICATION ARCHITECT MANAGER JOLEEN HERRERA Facility:[facility]1 Start: 08-29-2021 Patient encounter procedure Joleen Herrera Work Phone: KZ-Elthfyhrbg-JRD [facility] [address] [place] Work Phone: Start: 08-28-2021 Chart Update Joleen Saunders lz Work Phone: QT-Vdifqfpavg-KVB [facility] [address] [place] Work Phone: Start: 08-24-2021 ECHO, Provider: LI RENTERIA 4,MG CARD, Status: Pen, Time: 11:20 AM Joleen Krishnadane Work Phone: VE-Sfilqllqgb-AQM [facility] [address] [place] Work Phone: Start: 08-24-2021 Patient encounter procedure Joleen Krishnadane Work Phone: VH-Eqwbozoyfj-EFD [facility] [address] [place] Work Phone: Start: 08-23-2021 AUDIT Joleen Saunders lz Work Phone: OU-Wtzttrrmno-PTL [facility] [address] [place] Work Phone: Start: 04-05-2021 Phys/qhp telephone evaluation 21-30 min Joleen Krishnadane Work Phone: [facility] Work Phone: Start: 04-05-2021 VIRFUVHOME, Provider : Ju Palacios, Status: Pen, Time: 11:20 AM Joleen Fierro Bamtezbrant Work Phone: VM-Axbraczhds-HVH [facility] [address] [place] Work Phone: Start: 04-04-2021 AUDIT Joleen Fierro Bamtezemely lz Work Phone: PF-Gpbvplqfom-KDI [facility] [address] [place] Work Phone: Start: 03-28-2021 AUDIT Jloeen Fierro Bamhho lz Work Phone: JV-Pahmayrlvw-DPN [facility] [address] [place] Work Phone: Start: 03-27-2021 Patient encounter procedure Joleen Fierro Bamhholz Work Phone: TB-Apswwwlxzg-UOC [facility] [address] [place] Work Phone: Start: 03-22-2021 End: 03-27-2021 Evaluation and management of inpatient JOHN [facility] [place] TT05 Rm [id number] Start: 03-21-2021 AUDIT Joleen Fierro Bamemely lz Work Phone: GV-Yfndkjzexx-HVO [facility] [address] [place] Work Phone: Start: 03-14-2021 Rx Renewal Joleen Fierro Bamemely lz Work Phone: YT[facility]dx[facility]yi[facility] Work Phone: Start: 02-03-2021 AUDIT Joleen Fierro Bamhemely lz Work Phone: GV-Dwsutauqjk-DAQ [facility] [address] [place] Work Phone: Start: 01-31-2021 Office outpatient vi sit 25 minutes Joleen Fierro Bamhholdane Work Phone: PW-Ccltqkocjn-PZD [facility] [address] [place] Work Phone: Start: 01-31-2021 Patient encounter procedure Joleen Fierro Bamhholz Work Phone: FU-Ypmfnnzaqn-KKJ [facility] [address] [place] Work Phone: Start: 10-17-2020 Rx Renewal Joleen Fierro Aichho lz Work Phone: VH-Nxvdcjmpaw-TND [facility] [address] [place] Work Phone: Start: 09-15-2020 Rx Renewal Joleen Fierro Bamemely lz Work Phone: MN-Yshtukxdjl-EWI [facility] [address] [place] Work Phone: Start: 01-26-2020 Patient encounter procedure John ElAmm YK-Tlzvcihjac-NBA [facility] [address] [place] Work Phone: Start: 12-04-2019 Patient encounter procedure John ElAmm DE-Byzsusvzkk-DVP [facility] [address] [place] Work Phone: Start: 08-27-2019 Patient encounter procedure John ElAmm TH-Zrrhgmfzgz-Rnabtlm [place] Work Phone: Start: 06-16-2019 Patient encounter procedure John ElAmm ST-Rbuihiqmjc-Tyxyqsf [place] Work Phone: Start: 01-20-2019 Patient encounter procedure John ElAmm AT-Xngniqazmn-Vybtilq [place] Work Phone: Start: 05-08-2018 Patient encounter procedure John ElAmm AP-Usywzwfbpe-Cwfvvqq [place] Work Phone: Start: 04-11-2018 End: 04-12-2018 Patient encounter procedure NENA YOUNG Facility:[facility] Start: 02-28-2018 Patient encounter procedure John ElAmm YA-Ankaduhvxh-Rywctyc [place] Work Phone: Start: 12-12-2017 End: 12-13-2017 Patient encounter procedure DEFAULT PHYSICIAN Facility:[facility] Start: 11-29-2017 Patient encounter procedure John ElAmm PP-Avoudygeoh-Ykgmkoa [place] Work Phone: Start: 11-26-2017 End: 11-27-2017 Patient encounter procedure DEFAULT PHYSICIAN Facility:[facility] Start: 11-14-2017 End: 11-15-2017 Patient encounter procedure DEFAULT PHYSICIAN Facility:[facility] Start: 09-25-2017 Patient encounter procedure John ElAmm WJ-Nwzsbpikab-Cmlqggw [place] Work Phone: Start: 08-29-2017 Patient encounter procedure John ElAmm LV-Evfhihunmj-Mqivenr [place] Work Phone: End: 08-29-2017 Patient encounter status Joleen Sri Herrera Work Phone: LD-Czljrwxwbi-JAP [facility] [address] [place] Work Phone: Procedures Date Procedure Procedure Detail Performing Clinician Start: 08-02-2023 CARDIAC DEVICE CHECK - IN CLINIC JOLEEN AICHHOLZ Start: 08-02-2023 Prgrmg eval implanta ble in prsn dual lead dfb Matias Driver MD Work Phone: Start: 06-17-2023 CARDIAC DEVICE CHECK - REMOTE JOLEEN AICHHOLZ Start: 06-14-2023 CARDIAC DEVICE CHECK - REMOTE JOLEEN AICHHOLZ Start: 06-11-2023 CARDIAC DEVICE CHECK - REMOTE JOLEEN AICHHOLZ Start: 05-31-2023 CARDIAC DEVICE CHECK - REMOTE JOLEEN AICHHOLZ Start: 05-31-2023 TB MICROALB CREAT R ATIO RANDOM Joleen Aichholz LEAD JAVASCRIPT ENGINEER Work Phone: Start: 05-29-2023 CARDIAC DEVICE CHECK - REMOTE JOLEEN AICHHOLZ Start: 05-27-2023 CARDIAC DEVICE CHECK - REMOTE JOLEEN AICHHOLZ Start: 05-24-2023 Glucose [Mass/volume ] in Serum or Plasma JOLEEN AICHHOLZ Start: 05-24-2023 DISCHARGE PATIENT JOLEEN AICHHOLZ Start: 05-24-2023 Glucose quantitative blood xcpt reagent strip Len Guardado MD Work Phone: Start: 05-24-2023 CBC panel - Blood by Automated count JOLEEN AICHHOLZ Start: 05-24-2023 Lactate dehydrogenas e [Enzymatic activity/volume] in Serum or Plasma JOLEEN AICHHOLZ Start: 05-24-2023 Magnesium [Mass/volu me] in Serum or Plasma JOLEEN AICHHOLZ Start: 05-24-2023 PROTIME-INR JOLEEN AICHH OLZ Start: 05-24-2023 RENAL FUNCTION PANEL LI SA AICHHOLZ Start: 05-24-2023 Glucose [Mass/volume ] in Serum or Plasma JOLEEN AICHHOLZ Start: 05-24-2023 Renal function panel Na than P Silverio ASSOCIATE PROFESSOR OF GEOLOGY-APPLICATION ARCHITECT MANAGER Work Phone: Start: 05-24-2023 Glucose quantitative blood [...] AICHH OLZ Start: 05-23-2023 RENAL FUNCTION PANEL LI SA AICHHOLZ Start: 05-23-2023 XR CHEST 2 VIEWS JOLEEN A ICHHOLZ Start: 05-23-2023 Renal function panel Na than P Silverio ASSOCIATE PROFESSOR OF GEOLOGY-APPLICATION ARCHITECT MANAGER Work Phone: Start: 05-23-2023 Radiologic exam chest [...] Work Phone: Start: 05-22-2023 ECG 12-LEAD JOLEEN AKSHATH OLZ Start: 05-22-2023 XR CHEST 1 VIEW JOLEEN VERDIN CHHOLZ Start: 05-22-2023 Glucose [Mass/volume ] in Serum or Plasma JOLEEN BAMHHOLZ Start: 05-22-2023 ELECTROPHYSIOLOGY PROCEDURE JOLEEN BAMHHOLZ Start: 05-22-2023 Ecg routine ecg w/le ast 12 lds trcg only w/o i&r Aisha Enriquez ASSOCIATE PROFESSOR OF GEOLOGY-APPLICATION ARCHITECT MANAGER Work Phone: Start: 05-22-2023 Radiologic exam ches t single view Wiley Ramos MD Work Phone: Start: 05-22-2023 Glucose quantitative blood xcpt reagent strip Len Guardado MD Work Phone: Start: 05-22-2023 Electrophysiology study Andrew Steele PA-C Work Phone: Start: 05-22-2023 CARDIAC DEVICE CHECK CHECK - INPATIENT JOLEEN BAMHHOLZ Start: 05-22-2023 CARDIAC DEVICE CHECK CHECK - INPATIENT Matias Driver MD Work Phone: Start: 05-22-2023 TELEMETRY MONITORING NOVA ODENHOLZ Start: 05-22-2023 Glucose [Mass/volume ] in Serum or Plasma JOLEEN AICHHOLZ Start: 05-22-2023 CBC panel - Blood by Automated count JOLEEN AICHHOLZ Start: 05-22-2023 Lactate dehydrogenas e [Enzymatic activity/volume] in Serum or Plasma JOLEEN AICHHOLZ Start: 05-22-2023 Magnesium [Mass/volu me] in Serum or Plasma JOLEEN AICHHOLZ Start: 05-22-2023 PROTIME-INR JOLEEN BAMHH OLZ Start: 05-22-2023 RENAL FUNCTION PANEL NOVA KUHNHHOLZ Start: 05-22-2023 TYPE AND SCREEN JOLEEN VERDIN CHHOLZ Start: 05-22-2023 Blood typing serologic rh (d) Noam Edwards ASSOCIATE PROFESSOR OF GEOLOGY-APPLICATION ARCHITECT MANAGER Work Phone: Start: 05-22-2023 End: 05-22-2023 Renal function panel Noam Edwards ASSOCIATE PROFESSOR OF GEOLOGY-APPLICATION ARCHITECT MANAGER Work Phone: Start: 05-22-2023 Glucose [Mass/volume ] [...] JOLEEN AICHHOLZ Start: 05-21-2023 RENAL FUNCTION PANEL LI SA AICHHOLZ Start: 05-21-2023 CBC panel - Blood by Automated count JOLEEN AICHHOLZ Start: 05-21-2023 PROTIME-INR JOLEEN AICHH OLZ Start: 05-21-2023 End: 05-21-2023 Renal function panel Jacinta Gaffney PA-C Work Phone: Start: 05-21-2023 Lactate dehydrogenas e [Enzymatic activity/volume] in Serum or Plasma JOLEEN AICHHOLZ Start: 05-21-2023 Magnesium [Mass/volu me] in Serum or Plasma JOLEEN AICHHOLZ Start: 05-21-2023 RENAL FUNCTION PANEL LI SA AICHHOLZ Start: 05-21-2023 End: 05-21-2023 Renal function panel Noam Edwards APRN-APPLICATION ARCHITECT MANAGER Work Phone: Start: 05-20-2023 Glucose [Mass/volume ] [...] 2d w/ wom-mode compl spec&colr d Wood R Kristiey ASSOCIATE PROFESSOR OF GEOLOGY-APPLICATION ARCHITECT MANAGER Work Phone: Start: 05-20-2023 ADMIT TO INPATIENT JOLEEN BAMHHOLZ Start: 05-20-2023 Glucose [Mass/volume ] in Serum [...] Blood by Automated count JOLEEN AICHHOLZ Start: 05-20-2023 Lactate dehydrogenas e [Enzymatic activity/volume] in Serum or Plasma JOLEEN AICHHOLZ Start: 05-20-2023 Magnesium [Mass/volu me] in Serum or Plasma JOLEEN AICHHOLZ Start: 05-20-2023 Natriuretic peptide B [Mass/volume] in Blood JOLEEN AICHHOLZ Start: 05-20-2023 PROTIME-INR JOLEEN AICHH OLZ Start: 05-20-2023 RENAL FUNCTION PANEL NOVA KUHNHHOLZ Start: 05-20-2023 Renal function panel Na than P Sugar Tree ASSOCIATE PROFESSOR OF GEOLOGY-APPLICATION ARCHITECT MANAGER Work Phone: Start: 05-19-2023 FULL CODE JOLEEN ODENH OLZ Start: 05-19-2023 ELECTRICAL CARDIOVERSION JOLEEN AICHHOLZ Start: 05-19-2023 INSERT ARTERIAL LINE NOVA KUHNHHOLZ Start: 05-19-2023 ELECTRICAL CARDIOVERSION Natty Na Isaías ASSOCIATE PROFESSOR OF GEOLOGY-APPLICATION ARCHITECT MANAGER Work Phone: Start: 05-19-2023 Glucose [Mass/volume ] in Serum or Plasma JOLEEN AICHHOLZ Start: 05-19-2023 Artl cathj/cannulj mntr/transfusion spx prq Natty Na Isaías ASSOCIATE PROFESSOR OF GEOLOGY-APPLICATION ARCHITECT MANAGER Work Phone: Start: 05-19-2023 Basic metabolic 2000 panel - Serum or Plasma JOLEEN AICHHOLZ Start: 05-19-2023 Magnesium [Mass/volu me] in Serum or Plasma JOLEEN AICHHOLZ Start: 05-19-2023 XR CHEST 1 VIEW JOLEEN AI CHHOLZ Start: 05-19-2023 End: 05-19-2023 Basic metabolic panel calcium total Natty Monzon Isaías ASSOCIATE PROFESSOR OF GEOLOGY-APPLICATION ARCHITECT MANAGER Work Phone: Start: 05-19-2023 Glucose [Mass/volume ] in Serum or Plasma JOLEEN AICHHOLZ Start: 05-19-2023 Basic metabolic 2000 panel - Serum or Plasma JOLEEN AICHHOLZ Start: 05-19-2023 CALCIUM, IONIZED JOLEEN A ICHHOLZ Start: 05-19-2023 CBC panel - Blood by Automated count JOLEEN AICHHOLZ Start: 05-19-2023 COAGULATION SCREEN JOLEEN AICHHOLZ Start: 05-19-2023 Digoxin [Mass/volume ] in Serum or Plasma JOLEEN AICHHOLZ Start: 05-19-2023 Hemoglobin A1c/Hemoglobin.total in Blood JOLEEN AICHHOLZ Start: 05-19-2023 Lactate [Moles/volum e] in Serum or Plasma JOLEEN AICHHOLZ Start: 05-19-2023 Lactate dehydrogenas e [Enzymatic activity/volume] in Serum or Plasma JOLEEN AICHHOLZ Start: 05-19-2023 TSH WITH REFLEX TO F REE T4 IF ABNORMAL JOLEEN ODENSILVIANODane Start: 05-19-2023 TYPE AND SCREEN JOLEEN KIRK Start: 05-19-2023 Radiologic exam ches t single view Wood Dos Santos Sunil ASSOCIATE PROFESSOR OF GEOLOGY-APPLICATION ARCHITECT MANAGER Work Phone: Start: 05-19-2023 IP CONSULT TO ELECTROPHYSIOLOGY JOLEEN ODENBRANT Start: 05-19-2023 End: 05-19-2023 Basic metabolic panel calcium total Natty L Isaías ASSOCIATE PROFESSOR OF GEOLOGY-APPLICATION ARCHITECT MANAGER Work Phone: Start: 05-19-2023 Drug screen quantita tive digoxin total Wood Levon Barber ASSOCIATE PROFESSOR OF GEOLOGY-APPLICATION ARCHITECT MANAGER Work Phone: Start: 05-19-2023 Thyrotropin [Units/v olume] in Serum or Plasma Janene Negrete MD PhD Work Phone: Start: 08-30-2022 PSA screening APPLICATION ARCHITECT MANAGER JOLEEN HERRERA Comment on above: Performed By: #### F T4, PSAD #### [facility] [address] [place] [address] Dr. Sonya Mendoza Start: 08-08-2022 Follow-up visit [...] Blood Produc t-Packed Red Blood Cells Torito aWtson Start: 01-26-2020 Echocardiography Angela Solitario Start: 12-15-2019 Coronavirus 2019 RNA by PCR, Symptomatic John ElAmm Start: 12-04-2019 Cardiac Catheterizat ion Lab Procedures John Solitario Start: 12-04-2019 Echocardiography Angela Solitario Start: 05-08-2018 Lipid 1996 panel - S elias or Plasma Janene Negrete MD PhD Work Phone: Start: 05-17-2015 Colonoscopy Joleen Mandeep abel LEAD JAVASCRIPT ENGINEER Work Phone: History of Ventricul ar Assist Device [facility]rac[facility] Plan of Treatment Date Care Activity Detail Author Start: 07-30-2030 DTaP/Tdap/Td Vaccine s (2 - Tdap) DTaP/Tdap/Td Vaccines (2 - Tdap) [facility] Start: 07-30-2030 Urine microalbumin profile [facility] Start: 08-31-2027 PROSTATE CANCER SCREENING DISCUSSION PROSTATE CANCER SCREENING DISCUSSION [facility] Start: 08-31-2027 Prostate specific antigen measurement Prostate Cancer Screening Discussion [facility] Start: 10-14-2026 Diabetes Screening Diabetes Screenin [facility] Start: 01-03-2026 Diabetes Screening Diabetes Screenin g [facility] Start: 09-12-2025 DIABETES SCREEN DIABETES SCREEN [facility] Start: 05-17-2025 Screening for malign ant neoplasm of colon [facility] Start: 01-03-2025 DIABETES SCREEN DIABETES SCREEN [facility] Start: 10-26-2024 DIABETES SCREEN DIABETES SCREEN [facility] Start: 10-14-2024 Complete blood count Hemoglobin/Dae [facility] Start: 10-14-2024 Creatinine measurement Serum Creatin ine [facility] Start: 09-21-2024 DIABETES SCREEN DIABETES SCREEN [facility] Start: 05-24-2024 Complete blood count [facility] Start: 05-24-2024 Creatinine measurement Creatinine Le abe [facility] Start: 05-24-2024 Potassium measurement Potassium Leve l [facility] Start: 05-20-2024 Echocardiography Echocardiogram [facility] Start: 05-19-2024 Thyroid stimulating hormone measurement TSH Level [facility] Start: 02-14-2024 End: 05-15-2024 CBC W Auto Differential panel - Blood COMPLETE BLOOD COUNT AND DIFFERENTIAL Lab Routine Smoldering multiple myeloma Expected: 02/14/2024 (Approximate), Expires: 05/15/2024 [facility] Comment on above: Expected: 02/14/2024 (Approximate), Expires: 05/15/2024 Start: 02-14-2024 End: 05-15-2024 Comprehensive metabolic 2000 panel - Serum or Plasma COMPREHENSIVE METABOLIC PANEL Lab Routine Smoldering multiple myeloma Expected: 02/14/2024 (Approximate), Expires: 05/15/2024 [facility] Comment on above: Expected: 02/14/2024 (Approximate), Expires: 05/15/2024 Start: 02-14-2024 End: 05-15-2024 MONOCLONAL PROTEIN, SERUM (BLOOD) MONOCLONAL PROTEIN, SERUM (BLOOD) Lab Routine Smoldering multiple myeloma Expected: 02/14/2024 (Approximate), Expires: 05/15/2024 [facility] Comment on above: Expected: 02/14/2024 (Approximate), Expires: 05/15/2024 Start: 02-14-2024 End: 05-15-2024 PROTEIN ELECTROPHORESIS SERUM W/INTERP PROTEIN ELECTROPHORESIS SERUM W/INTERP Lab Routine Smoldering multiple myeloma Expected: 02/14/2024 (Approximate), Expires: 05/15/2024 [facility] Comment on above: Expected: 02/14/2024 (Approximate), Expires: 05/15/2024 Start: 02-03-2024 End: 02-03-2024 ambulatory 02/03/2024 11:30 AM EDT Visit (SP) Office Hematology/Oncology [address] [place] [address] [place] [address] Michael Holguin MD [address] [facility] [place] [address] 4 month RUSS and lab Hematology/Oncology Comment on above: 4 month RUSS and lab Start: 02-03-2024 End: 02-03-2024 Patient encounter procedure 02/03/2024 11:15 AM EDT Office Visit [facility] [address] [facility] [address] 4 [address] lab [facility] Comment on above: 4 month RUSS and lab Start: 01-07-2024 End: 01-07-2024 Patient encounter procedure 01/07/2024 10:15 AM EDT Office Visit [address] [facility] [address] [place] [address] Jody Da Silva MD [address] [place] [address] [address] [place] [address] [facility] Start: 01-04-2024 Serum Creatinine Serum Creatinine Cl [facility] Start: 12-22-2023 Influenza vaccination Influenza Vacc ine (#1) [facility] Start: 11-25-2023 End: 11-25-2023 Patient encounter procedure [facility] Start: 11-12-2023 End: 02-11-2024 PROTEIN ELECTROPHORESIS SERUM W/INTERP PROTEIN ELECTROPHORESIS SERUM W/INTERP Lab Routine Smoldering multiple myeloma Expected: 11/12/2023 (Approximate), Expires: 02/11/2024 [facility] Comment on above: Expected: 11/12/2023 (Approximate), Expires: 02/11/2024 Start: 10-29-2023 End: 10-29-2023 ambulatory 10/29/2023 1:30 PM [facility] Hematology/Oncology [address] [place] [address] [place] [address] [employer] phone encounter Hematology/Oncology Comment on above: [employer] phone enc ounter Start: 10-28-2023 End: 10-28-2023 ambulatory 10/28/2023 1:30 PM [facility] Hematology/Oncology [address] [place] [address] [place] [address] [employer] phone encounter Hematology/Oncology Comment on above: [employer] phone enc ounter Start: 10-15-2023 End: 10-14-2024 Ferritin [Mass/volume] in Serum or Plasma [facility] Comment on above: Expected: 10/15/2023 , Expires: 10/14/2024 Start: 10-15-2023 End: 10-14-2024 Iron and Iron binding capacity panel - Serum or Plasma [facility] Work Phone: Comment on above: Expected: 10/15/2023 , Expires: 10/14/2024 Start: 10-15-2023 End: 01-14-2024 MONOCLONAL PROTEIN, SERUM (BLOOD) [facility] Comment on above: Expected: 10/15/2023 , Expires: 01/14/2024 Start: 09-23-2023 End: 09-09-2025 Heart Transthoracic Transthoracic Echo (TTE) Complete Echocardiography Routine LVAD (left ventricular assist device) present (Multi) HFrEF (heart failure with reduced ejection fraction) (Multi) Expected: 09/23/2023 (Approximate), Expires: 09/09/2025 [facility] Work Phone: Comment on above: Expected: 09/23/2023 (Approximate), Expires: 09/09/2025 Start: 09-13-2023 SERUM CREATININE SERUM CREATININE [facility] Start: 09-10-2023 End: 09-09-2024 CBC panel - Blood by Automated count CBC Lab Routine LVAD (left ventricular assist device) present (Multi) HFrEF (heart failure with reduced ejection fraction) (Multi) Expected: 09/10/2023 (Approximate), Expires: 09/09/2024 [facility] Service Area Work Phone: Comment on above: Expected: 09/10/2023 (Approximate), Expires: 09/09/2024 Start: 09-10-2023 End: 09-09-2024 Comprehensive metabolic 2000 panel - Serum or Plasma Comprehensive Metabolic Panel Lab Routine LVAD (left ventricular assist device) present (Multi) HFrEF (heart failure with reduced ejection fraction) (Multi) Expected: 09/10/2023 (Approximate), Expires: 09/09/2024 [facility] Work Phone: Comment on above: Expected: 09/10/2023 (Approximate), Expires: 09/09/2024 Start: 09-10-2023 End: 09-09-2024 Digoxin [Mass/volume] in Serum or Plasma Digoxin Lab Routine LVAD (left ventricular assist device) present (Multi) HFrEF (heart failure with reduced ejection fraction) (Multi) Expected: 09/10/2023 (Approximate), Expires: 09/09/2024 [facility] Work Phone: Comment on above: Expected: 09/10/2023 (Approximate), Expires: 09/09/2024 Start: 09-10-2023 End: 09-09-2024 Lactate dehydrogenase [Enzymatic activity/volume] in Serum or Plasma by Lactate to pyruvate reaction Lactate Dehydrogenase Lab Routine LVAD (left ventricular assist device) present (Multi) HFrEF (heart failure with reduced ejection fraction) (Multi) Expected: 09/10/2023 (Approximate), Expires: 09/09/2024 [facility] Work Phone: Comment on above: Expected: 09/10/2023 (Approximate), Expires: 09/09/2024 Start: 09-04-2023 End: 09-04-2023 Patient encounter procedure 09/04/2023 1:00 PM EDT Office Visit [facility] [address] [facility] [address] [place] [address] Len Guardado MD [address] [address] [facility] Start: 08-21-2023 End: 08-21-2023 Social Work 08/21/2023 12:30 PM EDT Social Work [facility] [address] [place] [id number] Lainey Zhang, WOJCIECH [facility] Start: 08-19-2023 Hemoglobin A1c measurement Diabetes: Hemoglobin A1C [facility] Start: 08-18-2023 Hemoglobin A1c measurement Diabetes: Hemoglobin A1C [facility] Start: 07-02-2023 End: 07-02-2023 [facility] Start: 06-05-2023 End: 06-05-2023 Patient encounter procedure [facility] Start: 05-23-2023 End: 05-23-2024 CBC W Auto Differential panel - Blood CBC and Auto Differential Lab Routine LVAD (left ventricular assist device) present ([facility]) Expected: 05/23/2023 (Approximate), Expires: 05/23/2024 [facility] Work Phone: Comment on above: Expected: 05/23/2023 (Approximate), Expires: 05/23/2024 Start: 05-23-2023 End: 05-23-2024 Lactate dehydrogenase [Enzymatic activity/volume] in Serum or Plasma by Lactate to pyruvate reaction Lactate Dehydrogenase Lab Routine LVAD (left ventricular assist device) present ([facility]) Expected: 05/23/2023 (Approximate), Expires: 05/23/2024 [facility] Service Area Work Phone: Comment on above: Expected: 05/23/2023 (Approximate), Expires: 05/23/2024 Start: 05-23-2023 End: 05-23-2024 Renal function 2000 panel - Serum or Plasma Renal Function Panel Lab Routine LVAD (left ventricular assist device) present ([facility]) Expected: 05/23/2023 (Approximate), Expires: 05/23/2024 [facility] Work Phone: Comment on above: Expected: 05/23/2023 (Approximate), Expires: 05/23/2024 Start: 05-23-2023 End: 05-23-2024 Thyrotropin [Units/volume] in Serum or Plasma Thyroid Stimulating Hormone Lab Routine LVAD (left ventricular assist device) present ([facility]) Other specified hypothyroidism Expected: 05/23/2023 (Approximate), Expires: 05/23/2024 [facility] Work Phone: Comment on above: Expected: 05/23/2023 (Approximate), Expires: 05/23/2024 Start: 05-13-2023 End: 07-13-2023 CBC W Auto Differential panel - Blood CBC + DIFF Lab Routine MGUS (monoclonal gammopathy of unknown significance) Expected: 05/13/2023 (Approximate), Expires: 07/13/2023 [facility] Work Phone: Comment on above: Expected: 05/13/2023 (Approximate), Expires: 07/13/2023 Start: 05-13-2023 End: 07-13-2023 Comprehensive metabolic 2000 panel - Serum or Plasma COMP METABOLIC PANEL Lab Routine MGUS (monoclonal gammopathy of unknown significance) Expected: 05/13/2023 (Approximate), Expires: 07/13/2023 [facility] Work Phone: Comment on above: Expected: 05/13/2023 (Approximate), Expires: 07/13/2023 Start: 05-13-2023 End: 07-13-2023 MONOCLONAL PROTEIN, SERUM (BLOOD) MONOCLONAL PROTEIN, SERUM (BLOOD) Lab Routine MGUS (monoclonal gammopathy of unknown significance) Expected: 05/13/2023 (Approximate), Expires: 07/13/2023 [facility] Work Phone: Comment on above: Expected: 05/13/2023 (Approximate), Expires: 07/13/2023 Start: 05-13-2023 End: 07-13-2023 PROTEIN ELECTROPHORESIS SERUM W/INTERP PROTEIN ELECTROPHORESIS SERUM W/INTERP Lab Routine MGUS (monoclonal gammopathy of unknown significance) Expected: 05/13/2023 (Approximate), Expires: 07/13/2023 [facility] Work Phone: Comment on above: Expected: 05/13/2023 (Approximate), Expires: 07/13/2023 Start: 05-08-2023 Lipid panel Lipid Screening [facility] Start: 04-22-2023 Behavioral Health Screening Behavioral Health Screening [facility] Start: 02-13-2023 FUCHRISTY, Provider: Cooper Vaca, Status: Pen, Time: 1:00 PM FUVVAD, Provider: Cooper Vaca, Status: Pen, Time: 1:00 PM [facility] Work Phone: Start: 02-13-2023 LVADFUVSW, Provider: Lainey Renee, Status: Pen, Time: 12:30 PM LVADFUVSW, Provider: Lainey Renee, Status: Pen, Time: 12:30 PM [facility] Work Phone: Start: 12-21-2022 COVID-19 Vaccine ( season) COVID-19 Vaccine ( season) [facility] Start: 12-21-2022 Influenza vaccination [facility] Start: 12-19-2022 End: 02-18-2023 CBC W Auto Differential panel - Blood CBC + DIFF Lab Routine Multiple myeloma not having achieved remission (HCC) Expected: 12/19/2022 (Approximate), Expires: 02/18/2023 [facility] Work Phone: Comment on above: Expected: 12/19/2022 (Approximate), Expires: 02/18/2023 Start: 12-19-2022 End: 02-18-2023 Comprehensive metabolic 2000 panel - Serum or Plasma COMP METABOLIC PANEL Lab Routine Multiple myeloma not having achieved remission (HCC) Expected: 12/19/2022 (Approximate), Expires: 02/18/2023 [facility] Work Phone: Comment on above: Expected: 12/19/2022 (Approximate), Expires: 02/18/2023 Start: 12-19-2022 End: 02-18-2023 MONOCLONAL PROTEIN, SERUM (BLOOD) MONOCLONAL PROTEIN, SERUM (BLOOD) Lab Routine Multiple myeloma not having achieved remission (HCC) Expected: 12/19/2022 (Approximate), Expires: 02/18/2023 [facility] Work Phone: Comment on above: Expected: 12/19/2022 (Approximate), Expires: 02/18/2023 Start: 12-19-2022 End: 10-18-[address] attenuation whole body NM PET/CT WHOLE BODY INITIAL Radiology Routine Multiple myeloma not having achieved remission (HCC) Monoclonal gammopathy Expected: 12/19/2022 (Approximate), Expires: 10/18/2023 [facility] Work Phone: Comment on above: Expected: 12/19/2022 (Approximate), Expires: 10/18/2023 Start: 12-19-2022 End: 02-18-2023 PROTEIN ELECTROPHORESIS SERUM W/INTERP PROTEIN ELECTROPHORESIS SERUM W/INTERP Lab Routine Multiple myeloma not having achieved remission (HCC) Expected: 12/19/2022 (Approximate), Expires: 02/18/2023 [facility] Work Phone: Comment on above: Expected: 12/19/2022 (Approximate), Expires: 02/18/2023 Start: 10-05-2022 Adult depression screening assessment DEPRESSION SCREENING [facility] Start: 05-12-2022 End: 07-12-2022 CBC W Auto Differential panel - Blood CBC + DIFF Lab Routine MGUS (monoclonal gammopathy of unknown significance) Expected: 05/12/2022 (Approximate), Expires: 07/12/2022 [facility] Work Phone: Comment on above: Expected: 05/12/2022 (Approximate), Expires: 07/12/2022 Start: 05-12-2022 End: 07-12-2022 Comprehensive metabolic 2000 panel - Serum or Plasma COMP METABOLIC PANEL Lab Routine MGUS (monoclonal gammopathy of unknown significance) Expected: 05/12/2022 (Approximate), Expires: 07/12/2022 [facility] Work Phone: Comment on above: Expected: 05/12/2022 (Approximate), Expires: 07/12/2022 Start: 05-12-2022 End: 01-10-2023 Ferritin [Mass/volume] in Serum or Plasma FERRITIN BLD Lab Routine MGUS (monoclonal gammopathy of unknown significance) Abnormal finding of blood chemistry, unspecified Expected: 05/12/2022 (Approximate), Expires: 01/10/2023 [facility] Work Phone: Comment on above: Expected: 05/12/2022 (Approximate), Expires: 01/10/2023 Start: 05-12-2022 End: 01-10-2023 Iron and Iron binding capacity panel - Serum or Plasma IRON + TIBC Lab Routine MGUS (monoclonal gammopathy of unknown significance) Abnormal finding of blood chemistry, unspecified Expected: 05/12/2022 (Approximate), Expires: 01/10/2023 [facility] Work Phone: Comment on above: Expected: 05/12/2022 (Approximate), Expires: 01/10/2023 Start: 05-12-2022 End: 07-12-2022 MONOCLONAL PROTEIN, SERUM (BLOOD) MONOCLONAL PROTEIN, SERUM (BLOOD) Lab Routine MGUS (monoclonal gammopathy of unknown significance) Expected: 05/12/2022 (Approximate), Expires: 07/12/2022 [facility] Work Phone: Comment on above: Expected: 05/12/2022 (Approximate), Expires: 07/12/2022 Start: 05-12-2022 End: 07-12-2022 PROTEIN ELECTROPHORESIS SERUM W/INTERP PROTEIN ELECTROPHORESIS SERUM W/INTERP Lab Routine MGUS (monoclonal gammopathy of unknown significance) Expected: 05/12/2022 (Approximate), Expires: 07/12/2022 [facility] Work Phone: Comment on above: Expected: 05/12/2022 (Approximate), Expires: 07/12/2022 Start: 05-02-2022 FUVVAD, Provider: Cooper Vaca, Status: Pen, Time: 1:40 PM FUVVAD, Provider: Cooper Vaca, Status: Pen, Time: 1:40 PM NR-Uxezvtigwv-CYN [facility] [address] [place] Work Phone: Start: 04-22-2022 DEPRESSION ASSESSMENT [facility] Start: 01-02-2022 FUVVAD, Provider: Ju Palacios, Status: Pen, Time: 2:00 PM FUVVAD, Provider: Ju Palacios, Status: Pen, Time: 2:00 PM XU-Ynollwxsyx-IWA [facility] [address] [place] Work Phone: Start: 01-02-2022 Patient encounter procedure Cardiology [facility] Start: 12-27-2021 FUVVAD, Provider: Cooper Vaca, Status: Tyrell, Time: 3:00 PM FUVVAD, Provider: Cooper Vaca, Status: Tyrell, Time: 3:00 PM [facility] Work Phone: Start: 12-27-2021 End: 12-28-2022 [facility] Comment on above: :: Must be given gia or to discharge. Order entered from Admission Screen. Give dose at 1800, u nless otherwise specified by physician.Enteral feedings are held 1 hour pre and post dose Start: 12-26-2021 End: 12-27-2022 [facility] Comment on above: IF patient HAS a [...] drink Start: 12-21-2021 Influenza vaccination INFLUENZA (#1) [facility] Start: 11-02-2021 End: 01-02-2022 CBC W Auto Differential panel - Blood CBC + DIFF Lab Routine MGUS (monoclonal gammopathy of unknown significance) Absent serum haptoglobin Thrombocytopenia (HCC) Expected: 11/02/2021, Expires: 01/02/2022 [facility] Work Phone: Comment on above: Expected: 11/02/2021 , Expires: 01/02/2022 Start: 11-02-2021 End: 01-02-2022 Comprehensive metabolic 2000 panel - Serum or Plasma COMP METABOLIC PANEL Lab Routine MGUS (monoclonal gammopathy of unknown significance) Absent serum haptoglobin Thrombocytopenia (HCC) Expected: 11/02/2021, Expires: 01/02/2022 [facility] Work Phone: Comment on above: Expected: 11/02/2021 , Expires: 01/02/2022 Start: 11-02-2021 End: 01-02-2022 Haptoglobin [Mass/volume] in Serum or Plasma HAPTOGLOBIN BLD Lab Routine MGUS (monoclonal gammopathy of unknown significance) Absent serum haptoglobin Thrombocytopenia (HCC) Expected: 11/02/2021, Expires: 01/02/2022 [facility] Work Phone: Comment on above: Expected: 11/02/2021 , Expires: 01/02/2022 Start: 11-02-2021 End: 01-02-2022 Lactate dehydrogenase [Enzymatic activity/volume] in Serum or Plasma LD LACTATE DEHYDRO Lab Routine MGUS (monoclonal gammopathy of unknown significance) Absent serum haptoglobin Thrombocytopenia (HCC) Expected: 11/02/2021, Expires: 01/02/2022 [facility] Work Phone: Comment on above: Expected: 11/02/2021 , Expires: 01/02/2022 Start: 11-02-2021 End: 01-02-2022 MONOCLONAL PROTEIN, SERUM (BLOOD) MONOCLONAL PROTEIN, SERUM (BLOOD) Lab Routine MGUS (monoclonal gammopathy of unknown significance) Absent serum haptoglobin Thrombocytopenia (HCC) Expected: 11/02/2021, Expires: 01/02/2022 [facility] Work Phone: Comment on above: Expected: 11/02/2021 , Expires: 01/02/2022 Start: 11-02-2021 End: 01-02-2022 PROTEIN ELECTROPHORESIS SERUM W/INTERP PROTEIN ELECTROPHORESIS SERUM W/INTERP Lab Routine MGUS (monoclonal gammopathy of unknown significance) Absent serum haptoglobin Thrombocytopenia (HCC) Expected: 11/02/2021, Expires: 01/02/2022 [facility] Work Phone: Comment on above: Expected: 11/02/2021 , Expires: 01/02/2022 Start: 11-02-2021 End: 01-02-2022 RETIC COUNT RETIC COUNT Lab Routine MGUS (monoclonal gammopathy of unknown significance) Absent serum haptoglobin Thrombocytopenia (HCC) Expected: 11/02/2021, Expires: 01/02/2022 [facility] Work Phone: Comment on above: Expected: 11/02/2021 , Expires: 01/02/2022 Start: 10-26-2021 End: 12-26-2021 CBC W Auto Differential panel - Blood CBC + DIFF Lab Routine MGUS (monoclonal gammopathy of unknown significance) Expected: 10/26/2021 (Approximate), Expires: 12/26/2021 [facility] Work Phone: Comment on above: Expected: 10/26/2021 (Approximate), Expires: 12/26/2021 Start: 10-26-2021 End: 12-26-2021 Comprehensive metabolic 2000 panel - Serum or Plasma COMP METABOLIC PANEL Lab Routine MGUS (monoclonal gammopathy of unknown significance) Expected: 10/26/2021 (Approximate), Expires: 12/26/2021 [facility] Work Phone: Comment on above: Expected: 10/26/2021 (Approximate), Expires: 12/26/2021 Start: 10-26-2021 End: 12-26-2021 Direct antiglobulin test.poly specific reagent [Presence] on Red Blood Cells [facility] DIRECT Blood Bank Routine MGUS (monoclonal gammopathy of unknown significance) Absent serum haptoglobin Expected: 10/26/2021 (Approximate), Expires: 12/26/2021 [facility] Work Phone: Comment on above: Expected: 10/26/2021 (Approximate), Expires: 12/26/2021 Start: 10-26-2021 End: 12-26-2021 Free Hemoglobin [Mass/volume] in Plasma HEMOGLOBIN, PLASMA Lab Routine MGUS (monoclonal gammopathy of unknown significance) Absent serum haptoglobin Expected: 10/26/2021 (Approximate), Expires: 12/26/2021 [facility] Work Phone: Comment on above: Expected: 10/26/2021 (Approximate), Expires: 12/26/2021 Start: 10-26-2021 End: 12-26-2021 MONOCLONAL PROTEIN, SERUM (BLOOD) MONOCLONAL PROTEIN, SERUM (BLOOD) Lab Routine MGUS (monoclonal gammopathy of unknown significance) Expected: 10/26/2021 (Approximate), Expires: 12/26/2021 [facility] Work Phone: Comment on above: Expected: 10/26/2021 (Approximate), Expires: 12/26/2021 Start: 10-26-2021 End: 12-26-2021 PROTEIN ELECTROPHORESIS SERUM W/INTERP PROTEIN ELECTROPHORESIS SERUM W/INTERP Lab Routine MGUS (monoclonal gammopathy of unknown significance) Expected: 10/26/2021 (Approximate), Expires: 12/26/2021 [facility] Work Phone: Comment on above: Expected: 10/26/2021 (Approximate), Expires: 12/26/2021 Start: 10-11-2021 Patient encounter procedure FUVCOAG, [facility], Status: Pen, Time: 9:15 AM QN-Dcsnerrstt-LFF [facility] [address] [place] Work Phone: Start: 09-25-2021 FUVVAD, Provider: Ju Palacios, Status: Pen, Time: 1:00 PM FUVVAD, Provider: Ju Palacios, Status: Pen, Time: 1:00 PM HN-Xwtqthmedz-TGS [facility] [address] [place] Work Phone: Start: 09-25-2021 Patient encounter procedure FUVCOAG, Provider: [facility],MG CARD, Status: Pen, Time: 11:30 AM [facility] Work Phone: Start: 09-21-2021 End: 11-21-2021 Haptoglobin [Mass/volume] in Serum or Plasma [facility] Work Phone: Comment on above: Expected: 09/21/2021 , Expires: 11/21/2021 Start: 09-19-2021 End: 11-19-2021 Chronic hepatitis differentiation between hepatitis B and C virus panel - Serum or Plasma HEP REMOTE PANEL BL Lab Routine MGUS (monoclonal gammopathy of unknown significance) Thrombocytopenia (HCC) Expected: 09/19/2021, Expires: 11/19/2021 [facility] Work Phone: Comment on above: Expected: 09/19/2021 , Expires: 11/19/2021 Start: 09-19-2021 End: 11-19-2021 HIV 1+2 Ab [Presence] in Serum or Plasma by Immunoassay HIV 1 2 COMBO(AG/AB),WITH REFLEX TO DIFFERENTIATION Lab Routine MGUS (monoclonal gammopathy of unknown significance) Thrombocytopenia (HCC) Encounter for screening for human immunodeficiency virus (HIV) Expected: 09/19/2021, Expires: 11/19/2021 [facility] Work Phone: Comment on above: Expected: 09/19/2021 , Expires: 11/19/2021 Start: 09-19-2021 End: 11-19-2021 MONOCLONAL PROT UR W/INTERP MONOCLONAL PROT UR W/INTERP Lab Routine MGUS (monoclonal gammopathy of unknown significance) Thrombocytopenia (HCC) Expected: 09/19/2021, Expires: 11/19/2021 [facility] Work Phone: Comment on above: Expected: 09/19/2021 , Expires: 11/19/2021 Start: 09-19-2021 End: 11-19-2021 MONOCLONAL PROTEIN, SERUM (BLOOD) MONOCLONAL PROTEIN, SERUM (BLOOD) Lab Routine MGUS (monoclonal gammopathy of unknown significance) Thrombocytopenia (HCC) Expected: 09/19/2021, Expires: 11/19/2021 [facility] Work Phone: Comment on above: Expected: 09/19/2021 , Expires: 11/19/2021 Start: 09-19-2021 End: 11-19-2021 PROTEIN ELECTROPHORESIS SERUM W/INTERP PROTEIN ELECTROPHORESIS SERUM W/INTERP Lab Routine MGUS (monoclonal gammopathy of unknown significance) Thrombocytopenia (HCC) Expected: 09/19/2021, Expires: 11/19/2021 [facility] Work Phone: Comment on above: Expected: 09/19/2021 , Expires: 11/19/2021 Start: 08-29-2021 Patient encounter procedure FUVCOAG, Provider: CESAR ANTOINE,MG CARD, Status: Pen, Time: 10:15 AM [facility]tico[facility] Work Phone: Start: 2021 COVID-19 VACCINE (4 - Booster for Pfizer series) COVID-19 VACCINE (4 - Booster for Pfizer series) [facility] Start: 2021 RSV patient s and/or patients aged 60+ years (1 - 1-dose 60+ series) RSV patients and/or patients aged 60+ years (1 - 1-dose 60+ series) [facility] Start: 2021 RSV Vaccine (1 - 1-d ose 60+ series) RSV Vaccine (1 - 1-dose 60+ series) [facility] Start: 07-26-2021 ECHO, Provider: LI NANCE HHVI 1,MG CARD, Status: Pen, Time: 10:40 AM ECHO, Provider: LI NANCE HHVI 1,MG CARD, Status: Pen, Time: 10:40 AM [facility] Work Phone: Start: 06-29-2021 LVADFUVSW, Provider: Eli Jimenez, Status: Pen, Time: 3:00 PM LVADFUVSW, Provider: Eli Jimenez, Status: Pen, Time: 3:00 PM [facility] Work Phone: Start: 06-29-2021 FUVVAD, Provider: Ju Palacios, Status: Pen, Time: 2:00 PM FUVVAD, Provider: Ju Palacios, Status: Pen, Time: 2:00 PM [facility]fxp[facility] [address] Work Phone: Start: 06-29-2021 ECHO, Provider: LI NANCE HHVI 2,MG CARD, Status: Pen, Time: 12:50 PM ECHO, Provider: LI NANCE HHVI 2,MG CARD, Status: Pen, Time: 12:50 PM PM[facility]Oasgsnewqn[facility] Work Phone: Start: 06-01-2021 COVID-19 VACCINE (4 - Booster for Pfizer series) COVID-19 VACCINE (4 - Booster for Pfizer series) [facility] Start: 06-01-2021 Covid-19 Vaccine (4 - Pfizer series) Covid-19 Vaccine (4 - Pfizer series) [facility] Start: 04-22-2021 DEPRESSION ASSESSMENT DEPRESSION ASS ESSMENT [facility] Start: 04-05-2021 Patient encounter procedure Cardiology [facility] Start: 04-05-2021 VIRFUVBAL, Provider : Ju Palacios, Status: Pen, Time: 11:20 AM VIRFUVHOME, Provider: Ju Palacios, Status: Pen, Time: 11:20 AM BG-Xhktsqhgdm-IEV [facility] [address] [place] Work Phone: Start: 03-27-2021 BRODIE, Provider : Ju Palacios, Status: Pen, Time: 2:00 PM BRODIE, Provider: Ju Palacios, Status: Pen, Time: 2:00 PM GC-Hgidhuzird-GYQ [facility] [address] [place] Work Phone: Start: 03-25-2021 End: 03-26-2022 Torsemide 20 mg Oral Tablet Daily ; Tablet (DEMADEX)DOSE = 20 mg Oral Daily, PRN weight gain of 3 lbs in 2 days Start: 25-Mar-2021 End: 25-Mar-2022 Ordered: 25-Mar-2021 Ju Palacios Intent [facility] Start: 03-24-2021 End: 03-25-2022 Warfarin 0ral Tablet to select days of week dosing ; Tablet (COUMADIN)DOSE = 3 mg Oral ( every 1 week: Sat/18:00, 18:00 )Clinician Notes: Give dose at 1800, unless otherwise specified by physician.Enteral feedings are held 1 hour pre and post doseNotes from Pharmacy: Reproductive Risk- Single Nitrile GloveRCRA Start: 24-Mar-2021 End: 24-Mar-2022 Ordered: 24-Mar-2021 Ju Palacios Intent Comments: Give dose at 1800, unless otherwise specified by physician.Enteral feedings are held 1 hour pre and post dose [facility] Comment on above: Give dose at 1800, u nless otherwise specified by physician.Enteral feedings are held 1 hour pre and post dose Start: 03-23-2021 End: 03-23-2022 [facility] Comment on above: IF patient HAS a [...] Ju Palacios, Status: Pen, Time: 1:00 PM DY-Kbazotpvlw-XTK [facility] [address] [place] Work Phone: Start: 03-07-2021 FUVVAD, Provider: Ju Palacios, Status: Pen, Time: 2:00 PM FUVVAD, Provider: Ju Palacios, Status: Pen, Time: 2:00 PM JY-Qyemrozrqk-BBJ [facility] [address] [place] Work Phone: Start: 11-29-2020 FUVVAD, Provider: Ju Palacios, Status: Pen, Time: 10:00 AM FUVVAD, Provider: Ju Palacios, Status: Pen, Time: 10:00 AM ID-Uxpcehxllj-WZB [facility] [address] [place] Work Phone: Start: 01-26-2020 Echocardiography Echocardiogram MG-C ardiology-[facility] [address] [place] Work Phone: Start: 05-08-2019 Lipid panel Lipid Panel [facility] Start: 04-17-2019 Pneumococcal Vaccine : Pediatrics (0 to 5 Years) and At-Risk Patients (6 to 64 Years) (2 - PPSV23 or PCV20) Pneumococcal Vaccine: Pediatrics (0 to 5 Years) and At-Risk Patients (6 to 64 Years) (2 - PPSV23 or PCV20) [facility] Start: 04-17-2019 Pneumococcal Vaccine : Pediatrics (0 to 5 Years) and At-Risk Patients (6 to 64 Years) (2 of 2 - PPSV23 or PCV20) Pneumococcal Vaccine: Pediatrics (0 to 5 Years) and At-Risk Patients (6 to 64 Years) (2 of 2 - PPSV23 or PCV20) [facility] Start: 2016 PROSTATE CANCER SCREENING DISCUSSION PROSTATE CANCER SCREENING DISCUSSION [facility] Start: 01-11-2016 Screening for malign ant neoplasm of lung Lung Cancer Screening [facility] Start: 08-06-2011 Influenza vaccination LUNG CANCER SC REENING [facility] Start: 08-06-2011 Screening for malign ant neoplasm of lung Lung Cancer Screening [facility] Start: 08-06-2011 SHINGRIX VACCINE (1 of 2) SHINGRIX VACCINE (1 of 2) [facility] Start: 2006 COLOGUARD (FIT-DNA) COLOGUARD (FIT-D NA) [facility] Start: 2006 Colonoscopy COLONOSCOPY [facility] Start: 2006 COLORECTAL CANCER SCREENING COLORECTAL CANCER SCREENING [facility] Start: [address] COLONOGRAPHY [facility] Start: 2006 FECAL OCCULT BLOOD FECAL OCCULT BLOO D [facility] Start: 2006 Screening for malign ant neoplasm of colon [facility] Start: 2006 SIGMOIDOSCOPY SIGMOIDOSCOPY [facility] Start: 1996 Lipid 1996 panel - Serum or Plasma Lipid Screening [facility] Start: 1996 LIPID SCREEN LIPID SCREEN [facility] Start: 1980 Urine microalbumin profile DTAP,TDAP,TD (1 - Tdap) [facility] Start: 1980 Urine screening for protein Diabetes: Urine Protein Screening [facility] Start: 1980 Zoster Vaccines (1 o f 2) Zoster Vaccines (1 of 2) [facility] Start: 08-06-1979 ANNUAL PCP TEAM SCRAP PICKER WILL DISEASE VISIT ANNUAL PCP TEAM CHRONIC DISEASE VISIT [facility] Start: 08-06-1979 HEPATITIS C SCREENING HEPATITIS C [facility] Start: 08-06-1979 Hepatitis C screening Hepatitis C [facility] Start: 08-06-1979 HIV SCREENING HIV SCREENING [facility] Start: 1973 Adult depression screening assessment DEPRESSION SCREENING [facility] Start: 08-06-1971 Diabetic foot examination Diabetes: Foot Exam [facility] Start: 08-06-1971 Glaucoma screening Diabetes: R etinopathy Screening [facility] Start: 1962 MMR Vaccines (1 of 1 - Standard series) MMR Vaccines (1 of 1 - Standard series) [facility] Start: 1961 HIV screening HIV Screening [facility] Start: 1961 Medicare Annual Wellness (AWV) Medicare Annual Wellness (AWV) [facility] Start: 1961 Medicare Annual Wellness Visit Medicare Annual Wellness Visit (AWV) [facility] Start: 1961 Screening for malign ant neoplasm of colon [facility] End: 05-22-2023 Cardiac Device Check - In Clinic Cardiac Device Check - In Clinic Implantable Cardiac Device Routine Heart failure ([facility]) Once for 1 Occurrences starting 05/22/2023 until 05/22/2023 [facility] Service Area Work Phone: Comment on above: Once for 1 Occurrenc es starting 05/22/2023 until 05/22/2023 Cardiac Device Check - Inpatient Cardiac Device Check - Inpatient Implantable Cardiac Device Routine ICD (implantable cardioverter-defibrilla tor) discharge HFrEF (heart failure with reduced ejection fraction) ([facility]) 05/22/2023 2:35 PM EST [facility] Work Phone: End: 05-27-2023 Cardiac device check - Remote [facility] Service Area Work Phone: Comment on above: Once for 1 Occurrenc es starting 05/27/2023 until 05/27/2023 End: 05-29-2023 Cardiac device check - Remote [facility] Service Area Work Phone: Comment on above: Once for 1 Occurrenc es starting 05/29/2023 until 05/29/2023 End: 06-11-2023 Cardiac device check - Remote [facility] Service Area Work Phone: Comment on above: Once for 1 Occurrenc es starting 06/11/2023 until 06/11/2023 End: 06-14-2023 Cardiac device check - Remote [facility] Service Area Work Phone: Comment on above: Once for 1 Occurrenc es starting 06/14/2023 until 06/14/2023 End: 06-17-2023 Cardiac device check - Remote [facility] Service Area Work Phone: Comment on above: Once for 1 Occurrenc es starting 06/17/2023 until 06/17/2023 CBC panel - Blood by Automated count CBC Lab Routine Morning draw (Lab) until discontinued starting 05/20/2023, 5 completed [facility] Work Phone: Comment on above: Morning draw (Lab) u ntil discontinued starting 05/20/2023, 5 completed CBC W Auto Different ial panel - Blood COMPLETE BLOOD COUNT AND DIFFERENTIAL Lab Routine Smoldering multiple 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 10/15/2023 12:54 PM EDT [facility] Chronic hepatitis differentiation between hepatitis B and C virus panel - Serum or Plasma HEP REMOTE PANEL BL Lab Routine MGUS (monoclonal gammopathy of unknown significance) Thrombocytopenia (HCC) 09/21/2021 12:04 PM EDT [facility] Work Phone: ECG 12 Lead ECG 12 Lead ECG Routine 05/22/2023 6:33 PM [facility] Work Phone: Glucose [Mass/volume ] in Serum or Plasma [facility] Service Area Work Phone: Comment on above: [...] immunodeficiency virus (HIV) 09/21/2021 12:04 PM EDT [facility] Work Phone: Lactate dehydrogenas e [Enzymatic activity/volume] in Serum or Plasma by Lactate to pyruvate reaction Lactate Dehydrogenase Lab Routine Morning draw (Lab) until discontinued starting 05/20/2023, 5 completed [facility] Work Phone: Comment on above: Morning draw (Lab) u ntil discontinued starting 05/20/2023, 5 completed Magnesium [Mass/volu me] in Serum or Plasma Magnesium Lab Routine Morning draw (Lab) until discontinued starting 05/20/2023, 5 completed [facility] Work Phone: Comment on above: Morning draw (Lab) u ntil discontinued starting 05/20/2023, 5 completed MONOCLONAL PROT UR W/INTERP MONOCLONAL PROT UR W/INTERP Lab Routine MGUS (monoclonal gammopathy of unknown significance) Thrombocytopenia (HCC) 09/21/2021 1:04 PM EDT [facility] Work Phone: MONOCLONAL PROTEIN, SERUM (BLOOD) MONOCLONAL PROTEIN, SERUM (BLOOD) Lab Routine MGUS (monoclonal gammopathy of unknown significance) Thrombocytopenia (HCC) 09/21/2021 12:04 PM EDT [facility] Work Phone: PROTEIN ELECTROPHORE SIS SERUM W/INTERP PROTEIN ELECTROPHORESIS SERUM W/INTERP Lab Routine MGUS (monoclonal gammopathy of unknown significance) Thrombocytopenia (HCC) 09/21/2021 12:04 PM EDT [facility] Work Phone: Prothrombin time (PT) Protime-IN R Lab Routine Morning draw (Lab) until discontinued starting 05/20/2023, 5 completed [facility] Work Phone: Comment on above: Morning draw (Lab) u ntil discontinued starting 05/20/2023, 5 completed End: 10-21-2022 Radiologic examination osseous survey compl XR BONE SURVEY ROUTINE Radiology Routine MGUS (monoclonal gammopathy of unknown significance) Thrombocytopenia (HCC) Encounter for screening for human immunodeficiency virus (HIV) 1 Occurrences starting 09/21/2021 until 10/21/2022 [facility] Work Phone: Comment on above: 1 Occurrences starti ng 09/21/2021 until 10/21/2022 Renal function 2000 panel - Serum or Plasma Renal function panel Lab Routine Morning draw (Lab) until discontinued starting 05/20/2023, 5 completed [facility] Work Phone: Comment on above: Morning draw (Lab) u ntil discontinued starting 05/20/2023, 5 completed End: 10-21-2022 Us abdominal real time w/image limited [facility] Work Phone: Comment on above: 1 Occurrences starti ng 09/21/2021 until 10/21/2022 [id number] GENNARO [address] [place] Work Phone: [facility] NEGATED: Highlighted row has been ruled out! Planned Goals not documented [id number] Hakeem [address] [place] Work Phone: Immunizations Immunization Date Immunization Notes Care Provider Archana donohue 01-25-2023 influenza virus vacc ine, unspecified formulation Esther Ríos SUPERVISOR SPEECH [facility] 04-06-2021 Pfizer-BioNTech COVI D-19 Vacc 30 MCG/0.3ML Intramuscular Suspension Joleen Sri [employer] Work Phone: [facility] 01-20-2021 influenza, injectabl e, quadrivalent, contains preservative Joleen Sri [employer] Work Phone: [facility] 01-20-2021 influenza virus vacc ine, unspecified formulation Ailyn Friend MD Work Phone: [facility] 07-30-2020 diphtheria, tetanus toxoids and pertussis vaccine Joleen Sri [employer] Work Phone: [facility] 07-13-2020 Pfizer-BioNTech COVI D-19 Vacc 30 MCG/0.3ML Intramuscular Suspension Joleen Sri [employer] Work Phone: [facility] Comment on above: Series: 06-22-2020 Pfizer-BioNTech COVI D-19 Vacc 30 MCG/0.3ML Intramuscular Suspension Joleen Sri [employer] Work Phone: [facility] Comment on above: Series: 01-14-2020 influenza, injectabl e, quadrivalent, contains preservative Joleen [employer] Work Phone: [facility] 02-20-2019 pneumococcal conjuga te vaccine, 13 valent Joleen Fierro [employer] Work Phone: [facility] 02-05-2018 influenza, injectabl e, quadrivalent, contains preservative Joleen Sri [employer] Work Phone: [facility] 02-13-2017 influenza, injectabl e, quadrivalent, contains preservative Joleen Sri [employer] Work Phone: [facility] 01-17-2016 influenza, injectabl e, madin lorne canine kidney, preservative free Joleen Sri [employer] Work Phone: [id number] H[place]em [address] [place] Work Phone: Payers Date Payer Category Payer Unknown 2019 Medicaid MEDICAID MEDICAI D [id number] 2019-Present [address] [place] [address] [id number] 2019 Medicaid [id number] 2016 Unknown [id number] 2012 Medicare MEDICARE MEDICAR E A AND B [id number] 2012-Present [phone] [place] [address] Medicare [id number] 2012 Medicare [id number] [id number] [id number] 1961 Unknown [id number] 2.16.840.1.348360.3.579.2.647 1961 Unknown [id number] 2.16.840.1.645683.3.579.2.647 1961 Unknown [id number] 2.16.840.1.282115.3.579.2.647 1961 Unknown [id number] 2.16.840.1.090731.3.579.2.647 1961 Unknown [id number] 2.16.840.1.399036.3.579.2.593 1961 Unknown [id number] 2.16.840.1.986330.3.579.2.593 1961 Unknown [id number] 2.16.840.1.916894.3.579.2.593 1961 Unknown [id number] 2.16.840.1.707311.3.579.2.593 1961 Unknown [id number] 2.16.840.1.904365.3.579.2.593 1961 Unknown [id number] 2.16.840.1.801047.3.579.2.593 1961 Unknown [id number] 2.16.840.1.605976.3.579.2.593 1961 Unknown [id number] 2.16.840.1.823034.3.579.2.593 1961 Unknown [id number] 2.16.840.1.336000.3.579.2.593 1961 Unknown [id number] 2.16.840.1.854615.3.579.2.593 1961 Unknown [id number] 2.16.840.1.607454.3.579.2.593 1961 Unknown [id number] 2.16.840.1.955058.3.579.2.727 1961 Unknown [id number] 2.16.840.1.895215.3.579.2.356 1961 Unknown [id number] 2.16.840.1.335304.3.579.2.356 1961 Unknown [id number] 2.16.840.1.031761.3.579.2.1259 1961 Unknown [id number] 2.16.840.1.874548.3.579.2.1259 1961 Unknown [id number] 2.16.840.1.634117.3.579.2.1259 1961 Unknown [id number] 2.16.840.1.578035.3.579.2.1245 1961 Unknown [id number] 2.16.840.1.812476.3.579.2.1245 1962 Unknown [id number] 2.16.840.1.212109.3.579.2.1244 1961 Unknown [id number] 2.16.840.1.953656.3.579.2.1244 1961 Unknown [id number] 2.16.840.1.514798.3.579.2.1244 1961 Unknown [id number] 2.16.840.1.689007.3.579.2.1244 1961 Unknown [id number] 2.16.840.1.274451.3.579.2.1244 1961 Unknown [id number] 2.16.840.1.536880.3.579.2.1244 1961 Unknown [id number] 2.16.840.1.515019.3.579.2.1244 1961 Unknown [id number] 2.16.840.1.973162.3.579.2.1244 1961 Unknown [id number] 2.16.840.1.535918.3.579.2.1244 1961 Unknown [id number] 2.16.840.1.125231.3.579.2.1244 1961 Unknown [id number] 2.16.840.1.600855.3.579.2.1244 1961 Unknown [id number] 2.16.840.1.113386.3.579.2.1244 1961 Unknown [id number] 2.16.840.1.803879.3.579.2.1244 1961 Unknown [id number] 2.16.840.1.663013.3.579.2.1245 1959 Medicare [id number] 1959 Self-pay [id number] Medicare [id number] Social History Date Type Detail Facility Start: 09-19-2021 End: 10-29-2023 Activities of daily living (ADL's), independent Activities of daily living (ADL's), independent [facility] Tobacco smoking consumption unknown [facility] Start: 09-19-2021 End: 01-10-2022 Tobacco smoking status NHIS Ex-smoker [facility] Start: 04-22-1989 End: 04-22-2010 History of tobacco use Current smoker [facility] Start: 04-22-1989 End: 04-22-2010 History of tobacco use Cigarette Smoker [facility] Start: 09-19-2021 End: 01-10-2022 Tobacco use and exposure Smokeless tobacco non-user [facility] Start: 09-21-2021 End: 01-11-2023 Alcohol intake Ex-drinker (finding) [facility] Start: 1960 Sex Assigned At Not on file [facility] Start: 09-11-2021 End: 09-10-2023 Exposure to SARS-CoV-2 (event) Not sure [facility] History of tobacco use Passive smoker [facility] Start: 01-11-2023 End: 10-29-2023 Tobacco use panel [facility] Adult Depression Screening Assessment 0 [facility] Start: 05-24-2023 Alcohol intake Current drinke r of alcohol (finding) [facility] Work Phone: Has the [employer], [employer], or [employer] threatened to shut off services in your home in past 12Mo No [facility] Do you belong to any clubs or organizations such as jew groups, unions, fraternal or athletic groups, or school groups? Yes [facility] Work Phone: How often to you hav e a drink containing alcohol? Never [facility] Work Phone: Do you feel stress - tense, restless, nervous, or anxious, or unable to sleep at night because your mind is troubled all the time - these days [OSQ] Not at all [facility] Work Phone: (I/We) worried whekiya er (my/our) food would run out before (I/we) got money to buy more. Never true [facility] Work Phone: NEGATED: Highlighted row - - Brittani Tineo Work Phone: Medical Equipment Procedure Code Equipment Code Equipment Origin al Text Equipment Identifier Dates Start: 10-06-2016 BD Pen Needle Mi ni U/F 31G X 5 MM Quantity: 100 Refills: 0 Start : 06-Oct-2016 Active Start: 10-06-2016 Defibrillator, I cd, Dual Chamber, Vahe Zimmerman [id number] - [id number] Start: 05-22-2023 Hm2 30_imp Start: 08-23-2016 USE UP TO 6 TIME S DAILY FOR INJECTIONS [id number] Start: 08-15-2022 USE UP TO 6 TIME S DAILY FOR INJECTIONS [id number] Start: 08-15-2022 Functional Status Date Assessment Result Facility 04-07-2023 Functional Status N/A [facility] Functional observable [facility] NEGATED: Highlighted row Functional performance Functional status health issues are not documented Disease YS-Ewmvxzwnmu-KmezgiSouleymane Tineo Work Phone: Mental Status Date Assessment Result Facility 12-28-2021 Cognitive functi ons [id number] [facility] 03-27-2021 Cognitive functi ons [id number] [facility] NEGATED: Highlighted row Cognitive function [Interpretation] Cognitive status health issues are not documented Disease Brittani Tineo Work Phone: Clinical Notes 08-20-2013 to 10-25-2023 Esther Ríos LSW - 10/25/2023 1:21 PM EDTTelephone Encounter - LiaoKizzy Bryan - 10/18/2023 1:02 PM EDTTelephone Encounter - Liao Kizzy Calderon - 10/18/2023 1:02 PM EDTPatient Instructions Note Date & Type Note Facility 10-25-2023 Note HNO ID: [id number] Author: ESTHER RÍOS LSW Service: ? Author Type: Compliance Tester Type: Progress Notes Filed: 10/25/2023 13:25 Note Text: Patient appears on the [facility] First Time Treatment List for a non-oncology treatment. No psychosocial assessment is indicated. TING Toro Goals of Care Advance Directives are not on file. SIGNATURE: Esther Michoacano WOJCIECH PATIENT NAME: Terry Villalpando DATE: October 25, 2023 TIME: 1:25 PM PAGER/CONTACT #: [facility] 10-25-2023 History of Present illness Narrative Patient appears on the [facility] Time Treatment List for a non-oncology treatment. No psychosocial assessment is indicated. EstherTING Garay Goals of Care Advance Directives are not on file. SIGNATURE: Esther WOJCIECH Ríos PATIENT NAME: Terry Villalpando DATE: October 25, 2023 TIME: 1:25 PM PAGER/CONTACT #: documented in this encounter [facility] 10-18-2023 Telephone encounter Note Spoke with Terry and he is scheduled for Monoferric on 10-28-23. [facility] 10-18-2023 Miscellaneous Notes Spoke with Terry and he is scheduled for Monoferric on 10-28-23. Monoferric orders arew in Call placed to patient, no answer. Unable to leave a VM as phone just rings. Will attempt at a later time. Karlie Villarreal Discussed results with patient and he would like to get IV iron. KK: please place orders. PSS: please call pt and schedule. Thanks Michael Greer RN ----- Message from Ailyn Friend MD sent at 10/16/2023 4:46 PM EDT ----- Please let him know that he is low On Iron and will benefit from IV Iron if he is interested. Let me know documented in this encounter [facility] 10-17-2023 Telephone encounter Note Monoferric orders arew in [facility] 10-17-2023 Telephone encounter Note Call placed to patient, no answer. Unable to leave a VM as phone just rings. Will attempt at a later time. Karlie Villarreal [facility] 10-17-2023 Telephone encounter Note Discussed results with patient and he would like to get IV iron. KK: please place orders. PSS: please call pt and schedule. Thanks Michael Greer RN [facility] Work Phone: 10-17-2023 Telephone encounter Note ----- Message from Ailyn Friend MD sent at 10/16/2023 4:46 PM EDT ----- Please let him know that he is low On Iron and will benefit from IV Iron if he is interested. Let me know [facility] 10-15-2023 Note HNO ID: [id number] Author: AILYN FRIEND MD Service: ? Author Type: Physician Type: Progress Notes Filed: 10/15/2023 12:48 Note Text: PATIENT NAME: Terry Villalpando CLINIC NO.: [id number] ATTENDING PHYSICIAN: Ailyn Friend MD DATE OF SERVICE: October 15, 2023 Some of the elements of this note have been copied from my previous progress note dated 01/11/2023. All the information has been reviewed carefully. Dear Joleen Herrera, APPLICATION ARCHITECT MANAGER, here is an update on a follow up visit on male Terry Villalpando at the clinic October 15, 2023 Diagnosis: SMM and thrombocytopenia Treatment History: March 2021, admitted to [facility] for blood loss anemia presumed to be [...] g/dL, KL ratio 11 Established care with pr 01/10/2022 HPI: Terry Villalpando is a 63 year old year old male here for follow up. He states that his pacemaker failed in April and he had to be hospitalized and a new pacemaker was placed. Otherwise the he is doing well. Denies any worsening neuropathy. No recent infections. PAST MEDICAL HISTORY Diagnosis Date Abnormal CBC [...] quittin.4 Passive exposure: Past Smokeless tobacco: Never Vaping [...] No weakness. PHYSICAL EXAMINATION: BP [unable to obtain BP[ Temp (Src) 97.6 (Temporal) Resp 16 Wt 253 lb 15.5 oz (115.2kg) SpO2 94% Wt 115.4 kg (254 lb 6.4 oz) [...] Gait and speech normal. Reflexes normal and (more content not included)... [facility] 10-15-2023 History of Present illness Narrative PATIENT NAME: Terry Villalpando [facility] NO.: [id number] ATTENDING PHYSICIAN: Ailyn Friend MD DATE OF SERVICE: October 15, 2023 Some of the elements of this note have been copied from my previous progress note dated 01/11/2023. All the information has been reviewed carefully. Dear Joleen Herrera CNP, here is an update on a follow up visit on male Terry Villalpando at the clinic October 15, 2023 Diagnosis: SMM and thrombocytopenia Treatment History: March 2021, admitted to [facility] for blood loss anemia presumed to be [...] g/dL, KL ratio 11 Established care with pr 01/10/2022 HPI: Terry Villalpando is a 63 year old year old male here for follow up. He states that his pacemaker failed in April and he had to be hospitalized and a new pacemaker was placed. Otherwise the he is doing well. Denies any worsening neuropathy. No recent infections. PAST MEDICAL HISTORY Diagnosis Date Abnormal CBC [...] quittin.4 Passive exposure: Past Smokeless tobacco: Never Vaping [...] No weakness. PHYSICAL EXAMINATION: BP [unable to obtain BP[ Temp (Src) 97.6 (Temporal) Resp 16 Wt 253 lb 15.5 oz (115.2kg) SpO2 94% Wt 115.4 kg (254 lb 6.4 oz) [...] Range Status 01/03/2023 12.3 % Final Abs [place] Date Value Ref Range Status 01/03/2023 0.80 <0.87 k/uL Final Abs Eosin Date Value Ref Range [...] Assessment and Plan: Terry Villalpando is a 63 year old year old male here for follow up. SMM-repeat parameters now, if stable see back in 4 months for follow-up. Thrombocytopenia- stable Monitor Creat CHF on LVAD per cardiology at Follow Iron parameters, Thank you for the kind referral. If there are any questions and or concerns please do not hesitate to contact me at [phone]. Ailyn Friend MD Hematology/Medical Oncology [facility] Jeimy spent a total of 30 minutes on the date of the service which included preparing to see the patient, [id number] patient care, completing clinical documentation, obtaining and/or reviewing separately obtained history, performing a medically appropriate examination, and ordering medications, tests, or procedures. CC: Joleen Herrera CNP documented in this encounter [facility] 09-10-2023 History of Present illness Narrative VAD Furnace Worker: Len Guardado VAD Coordinator: Poly Dominguez Primary Care Physician: LUBNA Shepherd Patient's Location: [place] [address] Date of Visit: 09/10/2023 2:00 PM EDT Location [facility]: [facility] Type of Visit: LVAD followup Type of VAD: HM2 Implant Date: 08/23/2016 Reason for VAD: NICM Intent: Long-Term (reason: patient decision) HPI / Summary: Terry Villalpando is a very pleasant 63 y.o. male presenting for management of Stage D HFrEF s/p HM II LVAD (08/2013 at [facility]; exchanged 07/2016 at [facility] for pump thrombosis) with associated RV dysfunction, CKD, dyslipidemia, DM, pAF,MGUS , and subclinical hypothyroidism who presents to the LVAD clinic for post hospital discharge. Hospital course: Pt p/w 7 ICD discharges on 05/19. Patient denies any aggravating factors such as exercise at time of ICD discharge. Initial treatment includes amio bolus x2 and amio gtt inititation for atrial tachyrhythmia. Device interrogation revealed discharges were appropriate: 2 VT episodes and 3 VF episodes. No further incidences of device discharge after IV amio and increase in his daily amiodarone maintenance to 400 mg Hospital course significant for: amio gtt -> transition to PO (completed load), generator exchange per EP, and torsemide and digoxin switching to three days a week. Coumadin decreased while pt is on amio. INR therapeutic last check. Today: Patient denies CP, palpitations, dizziness, BLANC, orthopnea, PND, LVAD alarms, N/V/D, hematochezia, hematuria, epistaxis. Most recent INR is 2.8 08/30/23. Significant swelling in legs noted. Discussed heart transplant, patient declined. Driveline is clean with no drainage. Dressing was last changed on 09/15/23. Dressing change performed in clinic today. VAD equipment interrogated in clinic with all batteries and clips functioning properly. Patient denies sleeping on batteries at home. Patient has not dropped their controller since last visit. NYHA class at implant - IV NYHA class today - III . Patient has completed Cardiac Rehab. Completion date was 2016. Review of Systems Constitutional: Negative. HENT: Negative. Eyes: Positive for blurred vision. C/o of blurred vision - has eye appointment scheduled Cardiovascular: Positive for leg swelling. Respiratory: Negative. Endocrine: Negative. Hematologic/Lymphatic: Negative. Skin: Negative. Musculoskeletal: Negative. Gastrointestinal: Negative. Genitourinary: Negative. Neurological: Negative. Psychiatric/Behavioral: Negative. Allergic/Immunologic: Negative. : Full 10 pt review of symptoms of negative unless discussed above. @OBJECTIVEBEGIN Medical History: He has a past medical history of Awaiting organ transplant status (01/12/2016), CHF (congestive heart failure) (Multi), COPD (chronic obstructive pulmonary disease) (Multi), Diabetes mellitus (Multi), Disease of thyroid gland, Encounter for other preprocedural examination (02/15/2016), Hypertension, and Unspecified systolic (congestive) heart failure (Multi) (12/04/2019). Surgical Hx: He has a past surgical history that includes Other surgical history (12/04/2019); CT guided percutaneous biopsy bone (12/27/2021); and Cardiac electrophysiology procedure (N/A, 05/22/2023). Social Hx: He reports that he quit smoking about 14 years ago. His smoking use included cigarettes. He started smoking about 34 years ago. He has a 40 pack-year smoking history. He has never used smokeless tobacco. He reports current alcohol use. He reports that he does not use drugs. Family Hx: His family history includes Coronary artery disease in his father and mother; Epilepsy in his mother. Exam: Vitals: Vitals: 09/10/23 1404 BP: 79/51 Pulse: 81 Temp: 36.2 C (97.1 F) Physical exam: GEN: Pleasant, well-appearing, no acute distress. HEENT: JVP not elevated, no icterus. CHEST: Clear to auscultation. Sternotomy well healed. ICD site on L chest wall without hematoma. Bruising noted. CV: LVAD hum ABD: Soft, ND, NT. Driveline: No drainage. Dressing c/d/I. Secured. EXT: Warm, well perfused, No LE edema. NEURO: Pleasant, BOB, Oriented to plan Medications Current Outpatient Medications Medication Instructions amiodarone (PACERONE) 400 mg, oral, Daily aspirin 81 mg EC tablet 1 tablet, oral, Daily BD Ultra-Fine Short Pen Needle 31 gauge x 5/16 needle USE UP TO 6 TIMES DAILY FOR INJECTIONS carvedilol (COREG) 6.25 mg, oral, 2 times daily cholecalciferol (VITAMIN D-3) 50 mcg, oral, Daily digoxin (Lanoxin) 125 MCG tablet TAKE ONE TABLET BY MOUTH ON SATURDAY, SATURDAY, AND SATURDAY Farxiga 10 mg, oral, Daily before breakfast fish oil concentrate (Miami-3) 120-180 mg capsule 2 capsules, oral, 2 times daily fluticasone (Flonase) 50 mcg/actuation nasal spray 2 sprays, Each Nostril, Daily gabapentin (NEURONTIN) 300 mg, oral, 2 times daily insulin aspart (NovoLOG FlexPen U-100 Insulin) 100 unit/mL (3 mL) pen subcutaneous, 3 times daily before meals, As directed by sliding scale insulin detemir (LEVEMIR FLEXTOUCH) 32 Units, subcutaneous, 2 times daily, Take as directed per insulin instructions. levothyroxine (SYNTHROID, LEVOXYL) 100 mcg, oral, Daily lisinopril 5 mg, oral, Daily loratadine (CLARITIN) 10 mg, oral, Daily pantoprazole (PROTONIX) 40 mg, oral, Daily before breakfast, Do not crush, chew, or split. rosuvastatin (CRESTOR) 10 mg, oral, Daily spironolactone (ALDACTONE) 25 mg, oral, Daily torsemide (DEMADEX) 20 mg, oral, See admin instructions, Take one Saturday, Saturday, and Saturday warfarin (Coumadin) 4 mg tablet Take as directed per After Visit Summary. Heart Mate III interrogation (personally interrogated), no significant alarms noted Assessment and Plan Terry Villalpando is a very pleasant 63 y.o. male presenting for management of Stage D HFrEF s/p HM II LVAD (08/2013 at [facility]; exchanged 07/2016 at [facility] for pump thrombosis) with associated RV dysfunction, CKD, dyslipidemia, DM, pAF, and subclinical hypothyroidism who presents to the LVAD clinic for post hospital discharge. Hospital course: Pt p/w 7 ICD discharges on 05/19. [...] digoxin switching to three days a week. 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) -Antithrombotic therapy: c/w ASA 81 mg daily and warfarin -JENN/ARB/ARNI: Lisinopril 5mg daily -BB: c/w carvedilol 6.25 mg BID -AA: c/w spironolactone 25 mg daily -Diuretic: c/w torsemide to 20 mg three times a week (MWFri) -c/w dapagliflozin 10 mg daily -c/w digoxin 125 mcg on MWF - truck terminal manager anticoagulation secondary to LVAD - -c/w warfarin (target INR 2-3); f/u with [place] [facility] 2) VT and Vfib episodes s/p appropriate ICD shock In April 2023 Underwent generator exchange by EP, placed on IV amiodarone drip and maintained on 400 mg of amiodarone PO daily until he follows up with EP 3) pAF -DAVIDSON VASC score 3 -c/w warfarin and BB 4) Dyslipidemia -c/w rosuvastatin 10 mg daily and vascepa - needs an updated lipid profile 5) DM -c/w insulin -c/w SGLT2 -HgA1C on 05/19/2023 was elevated at 8.9 -follow with endocrinology 6) Subclinical hypothyroidism -c/w levothyroxine 7) CKD Most recent creatinine of 1.33 ( on 05/24/2023) 8) Hx GIB (black tarry stools x3 days in 03/2021)/Hemolysis No recurrence John Solitario MD Section of Advanced Heart Failure and Cardiac Transplantation Division of Cardiovascular Medicine [facility] documented in this encounter [facility] Work Phone: 09-10-2023 Instructions Rupali Reece RN - 09/10/2023 2:00 PM EDT Patient Instructions: -Please bring a list of your medications to every visit. -If you have any questions or concerns, please contact the LVAD office at [phone], option 3 or the direct line at [phone]. Please state that you are an LVAD patient. If it is after hours and it is an emergency, please page the LVAD pager by calling [phone] #[phone] - Continue current medications with the exception of: --Please take torsemide daily until you lose 2-3lbs due to leg swelling - Labwork: CBC, CMP, LDH, DIG - Imaging/Procedures: ECHO - Referrals: - Followup: 3 months, we will call you with your appointment documented in this encounter [facility] Work Phone: 06-05-2023 History of Present illness Narrative VAD Furnace Worker: Len Guardado VAD Coordinator: Poly Dominguez Primary Care Physician: Joleen Herrera, ASSOCIATE PROFESSOR OF GEOLOGY-APPLICATION ARCHITECT MANAGER Patient's Location: [facility] [id number] Date of Visit: 06/05/2023 2:00 PM EST Location of visit: [facility] Type of Visit: LVAD followup Type of VAD: HM2 Implant Date: 08/23/2016 Reason for VAD: NICM Intent: Long-Term (reason: patient decision) HPI / Summary: Terry Villalpando is a very pleasant 62 y.o. male presenting for management of Stage D HFrEF s/p HM II LVAD (08/2013 at [facility]; exchanged 07/2016 at [facility] for pump thrombosis) with associated RV dysfunction, CKD, dyslipidemia, DM, pAF, and subclinical hypothyroidism who presents to the LVAD clinic for post hospital discharge. Hospital course: Pt p/w 7 ICD discharges on 05/19. [...] Coumadin decreased while pt is on amio. INR therapeutic last check. Today: Patient denies CP, palpitations, dizziness, BLANC, orthopnea, PND, edema, LVAD alarms, N/V/D, hematochezia, hematuria, epistaxis. Patient sleeps flat in bed with 1 pillows. Denies difficulty ambulating long distances or flights of stairs. Takes diuretic pills M/W/F. Most recent INR is 2.20, 06/04/2023: Driveline is clean with no drainage. Dressing was last changed this morning. Patient has completed Cardiac Rehab. Completion date was 2016. ROS: Full 10 pt review of symptoms of negative unless discussed above. @OBJECTIVEBEGIN Medical History: He has a past medical history of Awaiting organ transplant status (01/12/2016), CHF (congestive heart failure) ([facility]), COPD (chronic obstructive pulmonary disease) ([facility]), Diabetes mellitus ([facility]), Disease of thyroid gland, Encounter for other preprocedural examination (02/15/2016), Hypertension, and Unspecified systolic (congestive) heart failure ([facility]) (12/04/2019). Surgical Hx: He has a past surgical history that includes Other surgical history (12/04/2019); CT guided percutaneous biopsy bone (12/27/2021); and Cardiac electrophysiology procedure (N/A, 05/22/2023). Social Hx: He reports that he quit smoking about 14 years ago. His smoking use included cigarettes. He has a 40.00 pack-year smoking history. He has never used smokeless tobacco. He reports current alcohol use. He reports that he does not use drugs. Family Hx: His family history includes Coronary artery disease in his father and mother; Epilepsy in his mother. Exam: Vitals: 05/24/2023 3:50 PM 05/24/2023 11:40 AM 05/24/2023 7:52 AM 05/24/2023 4:11 AM 05/23/2023 11:51 PM 05/23/2023 8:41 PM Vitals Heart Rate 81 80 82 80 80 80 Temp 36.5 C (97.7 F) 36.2 C (97.2 F) 36.3 C (97.3 F) 36 C (96.8 F) 36.3 C (97.3 F) 36.8 C (98.2 F) Resp 16 17 17 18 18 Weight (lb) 235.67 BMI 32.27 kg/m2 BSA (m2) 2.33 m2 Wt Readings from Last 5 Encounters: 05/24/23 107 kg (235 lb 10.8 oz) 02/13/23 110 kg (243 lb) 08/15/22 112 kg (247 lb) 01/25/22 115 kg (253 lb 2 oz) 10/03/21 113 kg (249 lb 6 oz) GEN: Pleasant, well-appearing, no acute distress. HEENT: JVP not elevated, no icterus. CHEST: Clear to auscultation. Sternotomy well healed. ICD site on L chest wall without hematoma. Bruising noted. CV: LVAD hum ABD: Soft, ND, NT. Driveline: No drainage. Dressing c/d/I. Secured. EXT: Warm, well perfused, No LE edema. NEURO: Stephanie, PAULINO, Oriented to plan Labs: CMP: Recent Labs 05/24/2372605/23/23 0835 05/22/23 0607 05/21/23 0638 05/21/23 0424 05/20/23 0353 NA 133* 134* 138 137 136 135* K 4.7 4.9 4.5 4.9 4.8 3.8 CL 100 97* 103 105 105 104 CO2 25 29 25 25 22 22 ANIONGAP 13 13 15 12 14 13 BUN 34* 31* 27* 22 23 21 CREATININE 1.33* 1.48* 1.32* 0.98 1.01 0.99 EGFR 61 53* 61 88 85 87 MG 2.57* 2.44* 2.15 -- 2.05 2.23 Recent Labs 05/24/2372605/23/23 0835 05/22/23 0607 05/21/23 0638 05/21/23 0424 05/20/23 0353 12/28/21 0930 12/27/21 0542 12/26/21 1304 03/26/21 1959 03/25/21 1856 ALBUMIN 3.7 4.1 3.8 3.5 3.4 < > 4.2 4.0 4.1 4.0 4.1 ALKPHOS -- -- -- -- -- -- 77 67 70 65 63 ALT -- -- -- -- -- -- 14 13 13 9* 7* AST -- -- -- -- -- -- 22 22 23 16 14 BILITOT -- -- -- -- -- -- 1.2 1.0 0.9 0.8 0.9 < > = values in this interval not displayed. CBC: Recent Labs 05/24/2372605/23/23 0835 05/22/23 0607 05/21/23 0514 05/20/23 0353 WBC 6.9 7.9 6.0 6.1 6.3 HGB 14.3 15.6 14.8 14.0 14.2 HCT 44.0 48.6 45.5 40.8* 41.9 PLT 120* 141* 130* 156 119* MCV 95 96 96 92 91 COAG: Recent Labs 06/04/23 0000 05/31/23 0000 05/28/23 0000 12/27/21 1048 12/27/21 0542 12/27/21 0146 12/26/21200603/24/21 1933 03/23/21 2154 09/12/17 0506 09/11/17 1148 INR 2.20 2.20 2.00 < > 2.7* -- -- < > 1.9* < > 3.6* HAUF -- -- -- -- 0.2 0.3 0.1 -- -- -- -- HAPTOGLOBIN -- -- -- -- -- -- -- -- <30 -- <30 < > = values in this interval not displayed. ABO: Recent Labs 05/22/23 0607 ABO A HEME/ENDO: Recent Labs 05/19/23 1237 03/23/21 2154 11/29/17 1529 09/11/17 1148 FERRITIN -- 16* -- 60 IRONSAT -- NOT CALC. -- 16* TSH 0.98 -- 6.40* 16.12* HGBA1C 8.9* -- -- -- CARDIAC: Recent Labs 05/24/23 0727 05/23/23 0835 05/22/23 0607 05/21/23 0638 05/21/23 0424 05/20/23 0353 03/22/21 1710 01/26/20 1300 05/08/18 1623 11/29/17 1529 LDH 489* 553* 531* 601* 570* 429* < > 326* < > 390* BNP -- -- -- -- -- 262* -- 218* -- 233* < > = values in this interval not displayed. Recent Labs 05/08/18 1623 CHOL 136 LDLF 79 HDL 25.4* TRIG 156* MICRO: No results for input(s): ESR , CRP , PROCAL in the last 90626 hours. No results found for the last 90 days. Notable Studies: EKG: Encounter Date: 05/19/23 ECG 12 Lead Result Value Ventricular Rate 81 Atrial Rate 53 QRS Duration 134 QT Interval 546 QTC Calculation(Bazett) 634 R Gildford -89 T G[place]ford 91 QRS Count 14 Q Onset 198 T Offset 471 QTC Fredericia 603 Narrative Ventricular-paced rhythm Left axis deviation Nonspecific intraventricular block Inferior infarct , age undetermined Anterolateral infarct , age undetermined Abnormal ECG When compared with ECG of 19-MAY-2023 17:21, Fusion complexes are now Present Premature ventricular complexes are now Present Confirmed by Matias Mclaughlin ([id number]) on 05/28/2023 3:37:09 PM Echocardiogram: ECHOCARDIOGRAM Narrative Ordered by an unspecified provider. Cardiac Catheterization: Adult Cath Narrative [facility], Clerical Grader, [address] [place] [address] Cardiovascular Catheterization Report Patient Name: TERRY VILLALPANDO Performing Physician: [id number] Cooper Vaca DO Study Date: 03/01/2020 Verifying Physician: Anup Vaca DO MRN/PID: [id number] Furnace Worker: Accession/Order#: [id number] Fellow: Eder Espinosa MD Date of : 1960 Fellow: Gender: M Referring Physician: Admit Date: Referring Physician: x Surgeon: Referring Physician: [id number] Janene Negrete MD Study: Right Heart Catheterization Indications: TERRY VILLALPANDO is a 60 year old male who presents with Stage D HFrEF s/p HM2 LVAD with worsening heart failure. Heart failure. Procedure Description: After infiltration of local anesthetic, the right internal jugular vein was identified with two-dimensional ultrasound. Under direct ultrasound visualization, the right internal jugular vein was cannulated with a micropuncture technique. A 7 Georgian sheath was placed in the vein. A balloon tipped catheter was advanced through the right heart to record pressures. Cardiac output was calculated via the Leora method. Post-procedure, the venous sheath was pulled and pressure was applied to the site. Right Heart Catheterization: A balloon tipped catheter was advanced through the right heart to record pressures. Cardiac output was calculated via the Leora method. Elevated left sided filling pressures with normal cardiac output. Cardiac output is normal. Hemodynamic Pressures: LVAD RAMP Speed increased by increments of 200 RPM. Speed optimized to 9600. Final device settings: Device: HM2 Speed: 9600 Power: 5.2 PI: 4.2 Flow: 5.6. +---------+-------+-------+----- --+--------+-------+ RA mmHg RV mmHg PA mmHg PCW mmHg FA mmHg +---------+-------+-------+----- --+--------+-------+ Systolic 42 48 100 +---------+-------+-------+----- --+--------+-------+ Diastolic 27 75 +---------+-------+-------+----- --+--------+-------+ EDP 16 +---------+-------+-------+----- --+--------+-------+ Mean 19 34 21 83 +---------+-------+-------+----- --+--------+-------+ Oxygen Saturation %: +---+---+ RPA 68% +---+---+ Cardiac Outputs: +----+---+---+ CI CO +----+---+---+ LEORA 2.4 5.7 +----+---+---+ Vascular Resistance Calculated Values (Wood Units): +---+---------+ SVR 902 dynes +---+---------+ PVR 2.3 +---+---------+ Complications: No in-lab complications observed. Cardiac Cath Transition of Care Summary: Post Procedure Diagnosis: Acute on chronic systolic HF. Blood Loss: Estimated blood loss during the procedure was 0 mls. Specimens Removed: Number of specimen(s) removed: none. CONCLUSIONS: 1. RA 19 (ventricularized tracing), RV 42/16, PA 48/27/(34), PCW 21, sat 68%, CO/CI 5.7/2.4, SVR 902 dynes, PVR 2.3 BHAGAT. 2. Preserved CO/CI with elevated biventricular filling pressures. 3. Small RA to RV gradient in the setting of prior TVr. 4. RAMP performed and speed increased to 9600 rpm. 5. Return to LVAD clinic for ongoing evaluation and management. CPT Codes: Right Heart Cath O2/Cardiac output without biopsy (RHC)-49378; Moderate Sedation Services initial 15 minutes patient >5 years-03298 ICD 10 Codes: I50.23-Acute on chronic systolic (congestive) heart failure [id number] Cooper Vaca DO Performing Physician cc Report to: x cc Report to: x cc Report to: [id number] Janene Negrete MD No results found for this or any previous visit from the past 3650 days. Current Outpatient Medications Medication Instructions amiodarone (PACERONE) 400 mg, oral, Daily aspirin 81 mg EC tablet 1 tablet, oral, Daily BD Ultra-Fine Short Pen Needle 31 gauge x 5/16 needle USE UP TO 6 TIMES DAILY FOR INJECTIONS carvedilol (COREG) 6.25 mg, oral, 2 times daily cholecalciferol (VITAMIN D-3) 50 mcg, oral, Daily digoxin (LANOXIN) 125 mcg, oral, 3 times weekly Farxiga 10 mg, oral, Daily before breakfast fish oil concentrate (Miami-3) 120-180 mg capsule 2 capsules, oral, 2 times daily fluticasone (Flonase) 50 mcg/actuation nasal spray 2 sprays, Each Nostril, Daily gabapentin (NEURONTIN) 300 mg, oral, 2 times daily insulin aspart (NovoLOG FlexPen U-100 Insulin) 100 unit/mL (3 mL) pen subcutaneous, 3 times daily before meals, As directed by sliding scale Levemir FlexPen 100 unit/mL (3 mL) pen INJECT 32 UNITS UNDER SKIN TWICE A DAY levothyroxine (SYNTHROID, LEVOXYL) 100 mcg, oral, Daily lisinopril 5 mg, oral, Daily loratadine (CLARITIN) 10 mg, oral, Daily pantoprazole (PROTONIX) 40 mg, oral, Daily before breakfast, Do not crush, chew, or split. rosuvastatin (CRESTOR) 10 mg, oral, Daily spironolactone (ALDACTONE) 25 mg, oral, Daily torsemide (DEMADEX) 20 mg, oral, See admin instructions, Take one Saturday, Saturday, and Saturday warfarin (Coumadin) 4 mg tablet Take as directed per After Visit Summary. 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 LDH 544 (09/06/21). Echo 08/24/21: EF 10-15%. RV moderately enlarged with severely reduced RV systolic function (worsened from before). RHC RAMP 03/01/20 with speed increase to 9600 rpm. -Antithrombotic therapy: c/w ASA 81 mg daily and warfarin -JENN/ARB/ARNI: Lisinopril 5mg daily -BB: c/w carvedilol 6.25 mg 1.5 tablets twice daily -AA: c/w spironolactone 25 mg daily -Diuretic: c/w torsemide to 20 mg three times a week (MWFri) -c/w dapagliflozin 10 mg daily -c/w digoxin 125 mcg on MWF (03/31/21 di.4) 2) alf anticoagulation secondary to LVAD -INR 3.3 on 06/22/21 -c/w warfarin (target INR 2-3); f/u with [place] [facility] 3) AI -Mild-moderate on echo 08/24/21 -assess with yearly echo 4) pAF -DAVIDSON VASC score 3 -c/w amiodarone 200 mg daily -c/w warfarin and BB 5) Dyslipidemia -Lipids (08/28/21): tChol 63, HDL 34, LDL 48.4, Trig 95 -c/w rosuvastatin 10 mg daily 6) DM -c/w insulin -c/w SGLT2 -repeat HgA1C 08/28/21: 7.6% -follow with endocrinology 7) Subclinical hypothyroidism -c/w levothyroxine 8) CKD (resolved) -Cr 1.14 on 09/21/21 -monitor RFP 9) Syncope likely due to hypovolemia -decreased torsemide to 20 mg as needed -encourage fluid intake 10) Hx GIB (black tarry stools x3 days in 03/2021)/Hemolysis -per GI and heme, thought to be hemolysis rather than GIB -Venofer started in hospital and last 3 doses were administered locally -Hgb now stable after admission with 3 uPRBCs and Venofer-9.0 on 03/31/21 -Sent iron studies and ferritin to [facility]-patient to have drawn on 04/06/21 and results to be faxed to us 11) Appropriate ICD discharge x7 (admitted 05/19-05/24) - S/p generator exhange - s/p amio load - remain on amio 400mg daily; follow up with pt in three months and have ICD check prior to plan amio decrease timing Patient Instructions: -Please bring a list of your medications to every visit. -If you have any questions or concerns, please contact the LVAD office at [phone], option 3 or the direct line at [phone]. Please state that you are an LVAD patient. If it is after hours and it is an emergency, please page the LVAD pager by calling [phone] #[phone] - Continue current medications - Followup: 3 months in clinic Orders: No orders of the defined types were placed in this encounter. Followup Appts: Future Appointments Date Time Provider Department Center 06/05/2023 2:00 PM LUBNA Prieto [facility] 06/05/2023 2:30 PM WOJCIECH Lundberg [facility] LUBNA Prieto Section of Advanced Heart Failure and Cardiac Transplantation Division of Cardiovascular Medicine [facility] documented in this encounter [facility] Work Phone: 05-27-2023 History of Present illness Narrative Associated Problem(s): History of implantable cardioverter-defibrillator (ICD) insertion Continue with cardiology Associated Problem(s): Type 2 diabetes mellitus, with long-term current use of insulin ([facility]) Is now being compliant with use insulin [...] new pace maker got home Saturday evening [facility] Got to the hospital and his heart [...] Visit BMI 33.0-33.9,adult documented in this encounter [facility] 05-24-2023 Nurse Note Patient discharged home from [facility] this afternoon. Patient was taken off telemetry monitoring and IV were removed intact. Discharge instructions were given to and reviewed with patient at bedside. Meds to beds were delivered. Patient was taken off floor in wheelchair by patient transport. All belongings and LVAD equipment present with patient. Esther Pugh RN [facility] 05-24-2023 Nurse Note Patient discharged home from [...] HeartMate Serial Numbers HeartMate Equipment Tracking/Serial Numbers Fairing Man: car net washer Battery Clip 1: [id number] Battery Clip 2: [id number] Rechargeable Battery 1: [id number] Rechargeable Battery 2: [id number] Rechargeable Battery 3: [id number] Rechargeable Battery 4: [id number] Go Gear Vest: yes Programmed Backup Tire Curer: [id number] Primary Controller: [id number] Black Emergency Red Tag Bag: yes HeartMate Tracking HeartMate Equipment Transfer Transfer From: Heart Failure Unit Transfer To: [place] [address] Fairing Man: No Battery Clip 1: Yes Battery Clip [...] No Go Gear Vest: Yes Programmed Backup Tire Curer: Yes Primary Controller: Yes Mobile Power Unit: [...] PM Pt transferred by this RN to [facility] room [facility] in stable condition. Pt had all belongings, cell phone, cell phone net washer, LVAD spare batteries (4 batteries), spare controller, and all VSS were stable. Report called prior to transfer. Went to see patient at bedside. Replaced backup batteries in primary and secondary controller. Verified expiration dates on 14v batteries and marked with green stickers. Sent log files to [email or web address] due to flow flashing between 3.7 and [...] HeartMate Serial Numbers HeartMate Equipment Tracking/Serial Numbers Fairing Man: car net washer Battery Clip 1: [id number] Battery Clip 2: [id number] Rechargeable Battery 1: [id number] Rechargeable Battery 2: [id number] Rechargeable Battery 3: [id number] Rechargeable Battery 4: [id number] Go Gear Vest: yes Programmed Backup Tire Curer: [id number] Primary Controller: [id number] Black Emergency Red Tag Bag: yes HeartMate Tracking HeartMate Equipment Transfer Transfer From: Admission Fairing Man: No Battery Clip 1: Yes Battery Clip [...] No Go Gear Vest: Yes Programmed Backup Tire Curer: Yes Primary Controller: Yes Mobile Power Unit: [...] 1714 EKG obtained documented in this encounter [facility] Work Phone: 05-24-2023 Nurse Note VAD Note Name: Terry Villalpando Admission Date: 05/19/2023 11:50 AM Attending Provider: Len Guardado MD Room/Bed: [facility]/5083-A Sex: male : 1960 Age: 62 y.o. [...] HeartMate Serial Numbers HeartMate Equipment Tracking/Serial Numbers Fairing Man: car net washer Battery Clip 1: [id number] Battery Clip 2: [id number] Rechargeable Battery 1: [id number] Rechargeable Battery 2: [id number] Rechargeable Battery 3: [id number] Rechargeable Battery 4: [id number] Go Gear Vest: yes Programmed Backup Tire Curer: [id number] Primary Controller: [id number] Black Emergency Red Tag Bag: yes HeartMate Tracking HeartMate Equipment Transfer Transfer From: Heart Failure Unit Transfer To: [place] [address] Fairing Man: No Battery Clip 1: Yes Battery Clip [...] No Go Gear Vest: Yes Programmed Backup Tire Curer: Yes Primary Controller: Yes Mobile Power Unit: No Black Emergency Red Tag Bag: Yes HeartWare Serial Numbers HeartWare Tracking VAD Discharge Discharge Documentation HF Post Discharge Appointment Made: Yes INR Referral and Management Arranged: Yes INR Range: 2-3 AICD On: Yes Equipment Checklist/Log Numbers Recorded: Yes Educations Education Documentation No documentation found. Esther Pugh RN Date: 05/24/2023 Time: 3:44 PM [facility] Work Phone: 05-24-2023 Hospital course Narrative [...] concentrate 120-180 mg capsule; Commonly known as: Miami-3 fluticasone 50 mcg/actuation nasal spray; Commonly known [...] Department Center 06/05/2023 2:00 PM [facility] 06/05/2023 2:30 PM WOJCIECH Lundberg [facility] LUBNA Prieto documented in this encounter [facility] Work Phone: 05-24-2023 Miscellaneous Notes PATIENT: TERRY VILLALPANDO : 1960 ADMIT DATE: 05/19/2023 11:50 AM DISCH DATE: RESPONDING PROVIDER #: [id number] PROVIDER RESPONSE TEXT: Chronic Systolic HF CDI [...] (specify) Outcome: Progressing [facility] [facility] Work Phone: 05-24-2023 Note Formatting of this n ote might be different from the original. PATIENT: TERRY VILLALPANDO : 1960 ADMIT DATE: 05/19/2023 11:50 AM DISCH DATE: RESPONDING PROVIDER #: [id number] PROVIDER RESPONSE TEXT: Chronic Systolic HF CDI [...] to Clinical Documentation Reviewer Query created by: iMa Alcantara on 05/22/2023 4:13 PM Electronically signed by: LEN GUARDADO MD 05/24/2023 8:37 AM [facility] Work Phone: 05-24-2023 Plan of care note [...] to monitor and call light within reach. [facility] 05-23-2023 History of Present illness Narrative Occupational Therapy Communication Note Missed Visit: No Missed Visit Reason: (Pt supine in bed upon arrival. Discussed role of OT services. Pt reports no new concerns except L shoulder soreness. Discussed compensatory ADL strategies for shoulder pain. Pt verbalized understanding, denied additional OT needs. Will D/C OT orders.) 05/23/23 at 3:57 PM [facility] OT Rehab Office: [phone] ADVANCED HEART FAILURE LVAD PROGRESS NOTE VAD Furnace Worker: Dr. Guardado Type of VAD: HM2 [...] Problems: LVAD (left ventricular assist device) present (CMS/HCC) HFrEF (heart failure with reduced ejection fraction) (CMS/FORMERLY [facility]) LOS: 4 days Interval Events: Patient seen [...] in this interval not displayed. Recent Labs 05/23/23 0835 05/22/23 0607 05/21/23 [...] 05/21/23 0638 05/21/23 0424 05/20/23 0353 05/19/23 12312/28/21 0930 12/27/21 0542 03/22/21 1710 01/26/20 1300 [...] Transthoracic Echo (TTE) Complete Result Date: 05/20/2023 [facility], [address] [place] [address] and TRANSTHORACIC ECHOCARDIOGRAM REPORT Patient Name: TERRY Santoyo Physician: [id number] Shorty Amin MD Study Date: 05/20/2023 Ordering Provider: [id number] WOOD BARBER MRN/PID: [id number] Fellow: Nurse: Date of /Age: 408/05/1960 / 62 years Print Graphic Designer: ZULMA Garrett RDCS Gender: M Additional Staff: Height: 180.34 cm Admit Date: Weight: 106.14 kg Admission Status: Inpatient - STAT BSA: 2.25 m2 Department Location: [address] Blood Pressure: /65 mmHg Study Type: TRANSTHORACIC ECHO (TTE) COMPLETE Diagnosis/ICD: Presence of heart assist device-Z95.811 Indication: HFrEF with LVAD CPT Code: Echo Complete w Full Doppler-34014 Patient History: Pertinent History: A-Fib. 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 Direct result comparisons should only be [...] ICD s/p HM II LVAD (08/2013 at [facility]; exchanged to HM II LVAD 07/2016 at [facility] for pump thrombosis) with associated RV dysfunction, CKD, dyslipidemia, DM, paroxysmal AF, subclinical hypothyroidism, and IgA MGUS, who was admitted to [facility] HFICU due to post-ICD shock who underwent [...] for your Cardiac Device [facility] [phone] Incision: 1. Keep your incision clean and [...] shoulder level for 4 weeks. Do no continuous pickling line pickler anything weighing more than 15 pounds. 2. [...] You may call either the Device Clinic [phone] or the patient services of the device gleason operator with questions about specific electrical appliances and [...] ADVANCED HEART FAILURE LVAD PROGRESS NOTE VAD Furnace Worker: Dr. Guardado Type of VAD: HM2 [...] Problems: LVAD (left ventricular assist device) present ([facility]) HFrEF (heart failure with reduced ejection fraction) ([facility]) LOS: 3 days Interval Events: Patient seen [...] Transthoracic Echo (TTE) Complete Result Date: 05/20/2023 [facility], [address] [place] [address] and TRANSTHORACIC ECHOCARDIOGRAM REPORT Patient Name: TERRY VILLALPANDO Reading Physician: [id number] Shorty Amin MD Study Date: 05/20/2023 Ordering Provider: [id number] WOOD Dos Santos SUNIL MRN/PID: [id number] Fellow: Nurse: Date of /Age: 408/05/1960 / 62 years Print Graphic Designer: ZULMA Garrett RDCS Gender: M Additional Staff: Height: 180.34 cm Admit Date: Weight: 106.14 kg Admission Status: Inpatient - STAT BSA: 2.25 m2 Department Location: [address] Blood Pressure: /65 mmHg Study Type: TRANSTHORACIC ECHO (TTE) COMPLETE Diagnosis/ICD: Presence of heart assist device-Z95.811 Indication: HFrEF with LVAD CPT Code: Echo Complete w Full Doppler-00980 Patient History: Pertinent History: A-Fib. HFrEF s/p [...] LA Area A2C: 27.6 cm2 LA [place] A4C: 6.6 cm LA [place] A2C: 6.6 cm LV DIASTOLIC FUNCTION: Normal [...] 0.9 m/s (0.6-0.9m/s) PV Max P.0 mmHg [id number] Shorty Amin MD Electronically signed on 05/20/2023 [...] ICD s/p HM II LVAD (08/2013 at [facility]; exchanged 07/2016 at [facility] for pump thrombosis) with associated RV dysfunction [...] IMMUNOSTAINING CONSISTENT WITH PLASMA CELL MYELOMA - [place] eloy ratio 11 - [facility]ed by [facility] [...] the professional care of this patient Aisha Enriquez, MSN, [facility] Advanced Heart Failure LVAD Nurse Practitioner After 5pm page [phone] Physical Therapy Physical Therapy Evaluation Patient Name: [...] ICD and HM II LVAD (08/2013 @ [facility]; exchanged on 07/2016 @[facility] due to pump thrombosis on Coumatin), CKD, [...] Prior Function Per Pt/Caregiver Report Level of [place]: Independent with ADLs and functional transfers Receives [...] LLE : Within Functional Limits Outcome Measures: [facility] Basic Mobility Turning from your back to [...] Rolling: Complete independence Sitting: Complete independence Transfer Bsq-la-Cexdb: Supervision or set-up only Transfer Cbqbdu-wv-Xvg: Complete independence Total Score: 30 ICU Mobility [...] 06/04/23 Education Documentation Mobility Training, taught by Mae Hutton S-PT at 05/21/2023 3:19 PM. Learner: Patient Readiness: Acceptance Method: Explanation Response: Verbalizes Understanding Education Comments No comments found. Mae Hutton, SPT Terry Villalpando is a 62 y.o. male on day 2 of admission presenting with ICD (implantable cardioverter-defibrillator) discharge. Hospital Course: 62-year-old male with PMH significant for of stage D HFrEF (EF 10% -15%) with severe LV dysfunction s/p ICD and HM II LVAD (08/2013 @ [facility]; exchanged on 07/2016 @[facility] due to pump thrombosis on Coumadin), CKD, COPD, HTN, Dyslipidemia, T2DM, pAF, GIB, MGUS s/p bone marrow biopsy and subclinical hypothyroidism. Initially presented to [facility] today 05/19/2023 with complaints of seven ICD firing in the morning after taking his morning medications, transfer was initiated to [facility] for further workup. Upon admission, patient presented [...] change out LVAD controller if needed. VAD LEAD JAVASCRIPT ENGINEER aware, will follow up. Objective Physical Exam [...] ICD and HM II LVAD (08/2013 @ [facility]; exchanged on 07/2016 @[facility] due to pump thrombosis on Coumadin), CKD, COPD, HTN, Dyslipidemia, T2DM, pAF, GIB, MGUS s/p bone marrow biopsy and subclinical hypothyroidism. Initially presented to [facility] today 05/19/2023 with complaints of seven ICD firing in the morning after taking his morning medications, transfer was initiated to [facility] for further workup. Upon admission, patient presented [...] change out LVAD controller if needed. VAD LEAD JAVASCRIPT ENGINEER aware, will follow up. Neuro: No active [...] ICD battery replacement) PPI 40 mg daily [place] 3 2 grams daily Weekly dressing change #NICM Chronic Systolic HFrEF-EF 10-15% Last TTE (08/22/2022): Severely reduced ejection fraction of 10-15%. Mild elevated right ventricle systolic pressure. Mild to moderate MR, AR and mild CA. - Admitting weight: 107 kg; daily weight [...] Primary Contact/Next of Kin: Beatriz Kelly (daughter) [phone]; Patient's daughter at bedside and updated during [...] is performed using different testing methodology at [facility] than at other [facility]. Direct result comparisons should only be [...] ICD s/p HM II LVAD (08/2013 at [facility]; exchanged to HM II LVAD 07/2016 at [facility] for pump thrombosis) with associated RV dysfunction, CKD, dyslipidemia, DM, paroxysmal AF, subclinical hypothyroidism, and IgA MGUS, who was admitted to [facility] HFICU due to post-ICD shock and sustained VT. Per patient, around 4:30 this morning, ICD shocked him without proceeding cardiopulmonary symptoms. Based on the CIED interrogation @ [facility] this morning, his RA lead function [...] hours after each dose and upload to [place] -if RV felt not to be able to tolerate beta román or if amiodarone toxicities felt acceptable: do not start sotalol. Start PO amiodarone 400mg tid x7d then reduce to 400mg daily -outpatient EP follow-up with Dr. Driver at [facility] in 6-8 weeks Thank you for the opportunity to contribute to the care of this patient. Above recommendations discussed with Dr. Driver. If further questions arise, [place] [phone] on weekdays 7AM - 6PM and weekends 7AM - 2PM, or [place] [phone] at all other times. The EP device nurse can be reached at pager [phone] during regular business hours M-F. Peripheral IV [...] Jose Kovacs MD Associated attestation - Matias Driver MD - 05/21/2023 10:31 AM EST I [...] and overall care of this patient. SW journalism intern and SW met with patient at bedside. See flowsheet for assessment details. Patient confirmed he lives home alone with and has no issues with [facility]. Patient requested to complete POA paperwork. Patient confirmed daughter primary POA Beatriz Villalpando [phone] and son Joshua Villalpando [phone] as second POA. POA complete. Copy placed [...] visit as appropriate.) Missed Time: Attempt Comment: Gi Patel OTR/L Inpatient Occupational Therapist Rehab Office: [phone] Terry Villalpando is a 62 y.o. male [...] ICD and HM II LVAD (08/2013 @ [facility]; exchanged on 07/2016 @[facility] due to pump thrombosis on Coumadin), CKD, COPD, HTN, Dyslipidemia, T2DM, pAF, GIB, MGUS s/p bone marrow biopsy and subclinical hypothyroidism. Initially presented to [facility] today 05/19/2023 with complaints of seven ICD firing in the morning after taking his morning medications, transfer was initiated to [facility] for further workup. Upon admission, patient presented [...] ICD battery replacement) PPI 40 mg daily [place] 3 2 grams daily Weekly dressing change #NICM Chronic Systolic HFrEF-EF 10-15% Last TTE (08/22/2022): Severely reduced ejection fraction of 10-15%. Mild elevated right ventricle systolic pressure. Mild to moderate MR, AR and mild CA. - Admitting weight: 107 kg; daily weight [...] Primary Contact/Next of Kin: Beatriz Kelly (daughter) [phone]; Patient' and daughter at bedside and updated during am rounds 05/20. Dispo: remain in HFICU A. -G. reviewed Patient seen and assessed with LUBNA Garcia HFICU Attending Note No further VT after sedated defibrillation yesterday, continue to load with IV amiodarone, discussed with patient he was on amiodarone in the past this was stopped after several years of stabilty will need to be group home for now Controller is reading low flow [...] List and refresh.. Pharmacy reviewed the patient's rgwsv-rl-zmruqtzsw medications and allergies for accuracy. The list below reflects the updated CRIME SCENE PHOTOGRAPHER list. Comments regarding how patient may be [...] 3 times a week. fish oil concentrate (Miami-3) 120-180 mg capsule Self Sig: Take 2 [...] clarification and justification. Allergies Reviewed by Wood Barber, CHRISTINA-APPLICATION ARCHITECT MANAGER on 05/19/2023 No Known Allergies Patient declines M2B at discharge. Sources used to complete the med history include: Patient interview/ Pharmacy - [facility]/ Chart review - OSH records, Anticoag note 05/07/23 Roxanne Javier PharmD Transitions of Care Pharmacist [facility] Please reach out via Secure Chat for questions, or if no response call [email or web address] or [employer] Plan[employer] documented in this encounter [facility] Work Phone: 05-23-2023 Plan of care note [...] to monitor and call light within reach. [facility] Work Phone: 05-22-2023 Plan of care note [...] values return to normal range Outcome: Progressing [facility] 05-21-2023 Note Formatting of this n ote might be different from the original. Unable to accommodate generator change due to EP lab availability 05/21, will hope to add on 05/22. Discussed with primary service. [facility] Work Phone: 05-21-2023 Nurse Note Pt transferred by this RN to [place] [address] in stable condition. Pt had all belongings, cell phone, cell phone net washer, LVAD spare batteries (4 batteries), spare controller, and all VSS were stable. Report called prior to transfer. [facility] 05-20-2023 Nurse Note Went to see patient at bedside. Replaced backup batteries in primary and secondary controller. Verified expiration dates on 14v batteries and marked with green stickers. Sent log files to [email or web address] due to flow flashing between 3.7 and ---- on both controller and system monitor. [facility] 05-19-2023 Plan of care note The [...] and maintenance of device (specify) Outcome: Progressing [facility] 05-19-2023 Nurse Note VAD Note Name: [...] HeartMate Serial Numbers HeartMate Equipment Tracking/Serial Numbers Fairing Man: car net washer Battery Clip 1: [id number] Battery Clip 2: [id number] Rechargeable Battery 1: [id number] Rechargeable Battery 2: [id number] Rechargeable Battery 3: [id number] Rechargeable Battery 4: [id number] Go Gear Vest: yes Programmed Backup Tire Curer: [id number] Primary Controller: [id number] Black Emergency Red Tag Bag: yes HeartMate Tracking HeartMate Equipment Transfer Transfer From: Admission Fairing Man: No Battery Clip 1: Yes Battery Clip [...] No Go Gear Vest: Yes Programmed Backup Tire Curer: Yes Primary Controller: Yes Mobile Power Unit: No Black Emergency Red Tag Bag: Yes HeartWare Serial Numbers HeartWare Tracking VAD Discharge Educations Education Documentation No documentation found. Enedina Stauffer RN Date: 05/19/2023 Time: 7:58 PM [facility] Work Phone: 05-19-2023 Procedure note Associated Ord er(s): Electrical Cardioversion Electrical Cardioversion Date/Time: 05/19/2023 6:18 PM Performed by: LUBNA Solis Authorized by: LUBNA Solis Consent: Consent obtained: Verbal and emergent situation Consent given by: Patient Risks, benefits, and alternatives were discussed: yes Alternatives discussed: Rate-control medication, alternative treatment, no treatment and observation [place] protocol: Procedure explained and questions answered to [...] 50 mcg were given during the procedure. [facility] Work Phone: 05-19-2023 Procedure note Associated Ord er(s): Electrical Cardioversion Electrical Cardioversion Date/Time: 05/19/2023 6:18 PM Performed by: LUBNA Solis Authorized by: LUBNA Solis Consent: Consent obtained: Verbal and emergent situation Consent given by: Patient Risks, benefits, and alternatives were discussed: yes Alternatives discussed: Rate-control medication, alternative treatment, no treatment and observation [place] protocol: Procedure explained and questions answered to [...] Bleeding, ischemia, infection, pain and repeat procedure [place] protocol: Procedure explained and questions answered to [...] performed the procedure, Natty Metz is a commercial lines account assistant. The patient was prepped and draped [...] Tegaderm was applied. documented in this encounter [facility] Work Phone: 05-19-2023 Procedure note Associated Ord er(s): Arterial Line Insertion Arterial Line Insertion Date/Time: 05/19/2023 6:09 PM Performed by: LUBNA Solis Authorized by: LUBNA Solis Consent: Consent obtained: Emergent situation Consent given by: Patient Risks, benefits, and alternatives were discussed: yes Risks discussed: Bleeding, ischemia, infection, pain and repeat procedure [place] protocol: Procedure explained and questions answered to [...] performed the procedure, Natty Metz is a commercial lines account assistant. The patient was prepped and draped [...] area was cleaned and Tegaderm was applied. [facility] Work Phone: 05-19-2023 Nurse Note 1707:: time-out for cardioversion, BHAVNA Benavides NP, Dr Dilshad GUZMAN, Dr. Braxton Anesthesia all present. 1708: 1 mg versed given 1709: 25 mcg fentanyl given. 1711: 25 mcg fentanyl given. 1712 200j shock given, a-v paced rhythm achieved 1714 EKG obtained [facility] Work Phone: 05-19-2023 History and physical note [facility] HFICU HISTORY AND PHYSICAL Terry Villalpando/[id number] Admit Date: 05/19/2023 Hospital Length of Stay: 0 ICU Length of Stay: 1h Primary Service: HFICU Referring: Dr. Troy ([facility]) HPI: Terry Saha is a 62-year-old male with PMH of stage D HFrEF (EF 10% -15%) with severe LV dysfunction s/p ICD and HM II LVAD (08/2013 @ [facility]; exchanged on 07/2016 @[facility] due to pump thrombosis on Coumatin), CKD, COPD, HTN, Dyslipidemia, T2DM, pAF, GIB, MGUS s/p bone marrow biopsy and subclinical hypothyroidism who initially presented to [facility] today 05/19/2023 with complaints of seven ICD discharges in the morning after taking his morning medications. He reports laying on his couch watching the news when the discharges happened. He reports the need for a new ICD battery and was surprised that it shocked him. Transfer was initiated to [facility] for further workup. Upon admission, patient presented [...] Mild to moderate MR, AR and mild CA. Chest Radiograph (05/19/2023): Mild perihilar vascular congestion, which is similar when compared to prior exam. Recommend correlation with patient's volume status. Past Medical History: Past Medical History: Diagnosis Date Awaiting organ transplant status 01/12/2016 Awaiting organ transplant CHF (congestive heart failure) ([facility]) COPD (chronic obstructive pulmonary disease) ([facility]) Diabetes mellitus ([facility]) Disease of thyroid gland Encounter for other preprocedural examination 02/15/2016 Encounter for pre-transplant evaluation for heart transplant Hypertension Unspecified systolic (congestive) heart failure (CMS/HCC) 12/04/2019 HFrEF (heart failure with reduced ejection fraction) Past Surgical History: Past Surgical History: Procedure Laterality Date CT GUIDED PERCUTANEOUS BIOPSY BONE 12/27/2021 CT GUIDED PERCUTANEOUS BIOPSY BONE 12/27/2021 [facility] OTHER SURGICAL HISTORY 12/04/2019 Ventricular [...] morning. Take before meals. fish oil concentrate (Miami-3) 120-180 mg capsule Take 2 capsules (2 [...] 7* 7* 7* -- 6* AST 22 22 23 16 14 13 13 [...] ABO A HEME/ENDO: Recent Labs 05/19/23 1237 03/23/214 11/29/17 1529 09/11/17 1148 FERRITIN -- 16* [...] ICD and HM II LVAD (08/2013 @ [facility]; exchanged on 07/2016 @[facility] due to pump thrombosis on Coumadin), CKD, COPD, HTN, Dyslipidemia, T2DM, pAF, GIB, MGUS s/p bone marrow biopsy and subclinical hypothyroidism. Initially presented to [facility] today 05/19/2023 with complaints of seven ICD firing in the morning after taking his morning medications, transfer was initiated to [facility] for further workup. Upon admission, patient presented [...] past 1 year) PPI 40 mg daily [place] 3 2 grams daily Weekly dressing change #NICM Chronic Systolic HFrEF-EF 10-15% Last TTE (08/22/2022): Severely reduced ejection fraction of 10-15%. Mild elevated right ventricle systolic pressure. Mild to moderate MR, AR and mild CA. - Admitting weight: 107 kg - Admitting [...] and assessed with Dr. Negrete LUBNA Mccullough [facility] Work Phone: 05-19-2023 History and physical note [facility] HFICU HISTORY AND PHYSICAL Terry Villalpando/[id number] Admit Date: 05/19/2023 Hospital Length of Stay: 0 ICU Length of Stay: 1h Primary Service: HFICU Referring: Dr. Troy ([facility]) HPI: Terry Shaa is a 62-year-old male with PMH of stage D HFrEF (EF 10% -15%) with severe LV dysfunction s/p ICD and HM II LVAD (08/2013 @ [facility]; exchanged on 07/2016 @[facility] due to pump thrombosis on Coumatin), CKD, COPD, HTN, Dyslipidemia, T2DM, pAF, GIB, MGUS s/p bone marrow biopsy and subclinical hypothyroidism who initially presented to [facility] today 05/19/2023 with complaints of seven ICD discharges in the morning after taking his morning medications. He reports laying on his couch watching the news when the discharges happened. He reports the need for a new ICD battery and was surprised that it shocked him. Transfer was initiated to [facility] for further workup. Upon admission, patient presented [...] Mild to moderate MR, AR and mild CA. Chest Radiograph (05/19/2023): Mild perihilar vascular congestion, which is similar when compared to prior exam. Recommend correlation with patient's volume status. Past Medical History: Past Medical History: Diagnosis Date Awaiting organ transplant status 01/12/2016 Awaiting organ transplant CHF (congestive heart failure) ([facility]/HCC) COPD (chronic obstructive pulmonary disease) ([facility]) Diabetes mellitus ([facility]) Disease of thyroid gland Encounter for other preprocedural examination 02/15/2016 Encounter for pre-transplant evaluation for heart transplant Hypertension Unspecified systolic (congestive) heart failure ([facility]/HCC) 12/04/2019 HFrEF (heart failure with reduced ejection fraction) Past Surgical History: Past Surgical History: Procedure Laterality Date CT GUIDED PERCUTANEOUS BIOPSY BONE 12/27/2021 CT GUIDED PERCUTANEOUS BIOPSY BONE 12/27/2021 [facility] OTHER SURGICAL HISTORY 12/04/2019 Ventricular [...] morning. Take before meals. fish oil concentrate ([place]-3) 120-180 mg capsule Take 2 capsules (2 [...] 1237 12/28/21 0930 12/27/21 0542 12/26/21 1304 03/26/21195803/25/21185503/24/21193203/23/21 2154 WBC 6.5 7.5 5.3 5.4 6.6 5.9 [...] ICD and HM II LVAD (08/2013 @ [facility]; exchanged on 07/2016 @[facility] due to pump thrombosis on Coumadin), CKD, COPD, HTN, Dyslipidemia, T2DM, pAF, GIB, MGUS s/p bone marrow biopsy and subclinical hypothyroidism. Initially presented to [facility] today 05/19/2023 with complaints of seven ICD firing in the morning after taking his morning medications, transfer was initiated to [facility] for further workup. Upon admission, patient presented [...] past 1 year) PPI 40 mg daily [place] 3 2 grams daily Weekly dressing change #NICM Chronic Systolic HFrEF-EF 10-15% Last TTE (08/22/2022): Severely reduced ejection fraction of 10-15%. Mild elevated right ventricle systolic pressure. Mild to moderate MR, AR and mild CA. - Admitting weight: 107 kg - Admitting [...] Negrete LUBNA Mccullough documented in this encounter [facility] Work Phone: 05-19-2023 Consult note Associated Order (s): IP CONSULT TO ELECTROPHYSIOLOGY Images from the original note were not included. History and Present Illness: Primary LVAD Furnace Worker: Dr. Lay Vaca with co-management with [facility] (Dr Yi) Mr. Villalpando is a 62 y/o male with a PMHx sig for stage D systolic HF/NICM/HFrEF with severe LV dysfunction s/p [place] ICD s/p HM II LVAD (08/2013 at [facility]; exchanged to HM II LVAD 07/2016 at [facility] for pump thrombosis) with associated RV dysfunction, CKD, dyslipidemia, DM, paroxysmal AF, subclinical hypothyroidism, and IgA MGUS, who was admitted to [facility] HFICU due to post-ICD shock. Per patient, around 4:30 this morning, ICD shocked him without proceeding cardiopulmonary symptoms. Cardiac Data: 12-lead ECG 05/19/2023: wide QRS irregularly irregular tachycardia TTE @[facility] in 08/2022: LVEF 10-15% with severely dilated LV, severely dilated RV with severe systolic dysfunction, mild-moderate MR, mild-moderate AI Presenting 12-lead ECG @ [facility] on 05/19/2023: CIED interrogation @ [facility]: - battery: reached to ELVIS on 07/13/2019 - RA lead function was not assessed due to underlying AF - RV lead function was normal: capture (0.5 V/0.4 ms), sensing 11.8 mV, and 430 Ohm - DDDR 80-115 bpm - AP < 1% and TEMPLE MARKER 99 % since 11/16/2019 - There were [...] both RA and RV leads on 05/19/2023 @[facility] HFICU: Bedside TTE on 05/19/2023: biventiruclar standstill [...] is performed using different testing methodology at [facility] than at other [facility]. Direct result comparisons should only be [...] of hands/feet. No weakness. Assessment/Plan Primary LVAD Furnace Worker: Dr. Lay Vaca with co-management with [facility] (Dr Yi) Mr. Villalpando is a 62 y/o male with a PMHx sig for stage D systolic HF/NICM/HFrEF with severe LV dysfunction s/p ICD s/p HM II LVAD (08/2013 at [facility]; exchanged to HM II LVAD 07/2016 at [facility] for pump thrombosis) with associated RV dysfunction, CKD, dyslipidemia, DM, paroxysmal AF, subclinical hypothyroidism, and IgA MGUS, who was admitted to [facility] HFICU due to post-ICD shock and sustained VT. Per patient, around 4:30 this morning, ICD shocked him without proceeding cardiopulmonary symptoms. Based on the CIED interrogation @ [facility] this morning, his RA lead function [...] 1.6 on this admission - Appropriately shocked fkt-ia-bkxxvsop VT and VF episodes - NO obvious [...] interrogate his ICD again tomorrow morning. This grant writer was unable to obtain full ICD [...] care of this patient. Klaus Art MD [facility] Work Phone: 05-19-2023 Consult note Associated Order (s): IP CONSULT TO ELECTROPHYSIOLOGY Images from the original note were not included. History and Present Illness: Primary LVAD Furnace Worker: Dr. Lay Vaca with co-management with [facility] (Dr Yi) Mr. Villalpando is a 62 y/o male with a PMHx sig for stage D systolic HF/NICM/HFrEF with severe LV dysfunction s/p [employer] [place] ICD s/p HM II LVAD (08/2013 at [facility]; exchanged to HM II LVAD 07/2016 at [facility] for pump thrombosis) with associated RV dysfunction, CKD, dyslipidemia, DM, paroxysmal AF, subclinical hypothyroidism, and IgA MGUS, who was admitted to [facility] HFICU due to post-ICD shock. Per patient, around 4:30 this morning, ICD shocked him without proceeding cardiopulmonary symptoms. Cardiac Data: 12-lead ECG 05/19/2023: wide QRS irregularly irregular tachycardia TTE @[facility] in 08/2022: LVEF 10-15% with severely dilated LV, severely dilated RV with severe systolic dysfunction, mild-moderate MR, mild-moderate AI Presenting 12-lead ECG @ [facility] on 05/19/2023: CIED interrogation @ [facility]: - battery: reached to ELVIS on 07/13/2019 - RA lead function was not assessed due to underlying AF - RV lead function was normal: capture (0.5 V/0.4 ms), sensing 11.8 mV, and 430 Ohm - DDDR 80-115 bpm - AP < 1% and TEMPLE MARKER 99 % since 11/16/2019 - There were [...] both RA and RV leads on 05/19/2023 @[facility] HFICU: Bedside TTE on 05/19/2023: biventiruclar standstill [...] is performed using different testing methodology at [facility] than at other [facility]. Direct result comparisons should only be [...] of hands/feet. No weakness. Assessment/Plan Primary LVAD Furnace Worker: Dr. Lay Vaca with co-management with [facility] (Dr Yi) Mr. Villalpando is a 62 y/o male with a PMHx sig for stage D systolic HF/NICM/HFrEF with severe LV dysfunction s/p ICD s/p HM II LVAD (08/2013 at [facility]; exchanged to HM II LVAD 07/2016 at [facility] for pump thrombosis) with associated RV dysfunction, CKD, dyslipidemia, DM, paroxysmal AF, subclinical hypothyroidism, and IgA MGUS, who was admitted to [facility] HFICU due to post-ICD shock and sustained VT. Per patient, around 4:30 this morning, ICD shocked him without proceeding cardiopulmonary symptoms. Based on the CIED interrogation @ [facility] this morning, his RA lead function [...] 1.6 on this admission - Appropriately shocked azx-jo-jmqeelru VT and VF episodes - NO obvious [...] interrogate his ICD again tomorrow morning. This grant writer was unable to obtain full ICD [...] Klaus Art MD documented in this encounter [facility] Work Phone: 04-07-2023 Hospital Discharge instructions Patient [...] sitting or lying down. General instructions Take yrbj-uis-rkutvvg and prescription medicines only as told by [...] compression, and elevation. You may be given fixs-slk-wkvetuf medicines for pain. Contact a health care [...] provider. Document Revised: 02/20/2022 Document Reviewed: 02/01/2022 Return Path Patient Education 2022 [employer] Follow Up Care 04/07/2023 15:22:48 With:JOLEEN HERRERA Address: [address] [place] [address] [phone] Business (1) When:Within 3 Day(s) [facility] 01-11-2023 Note HNO ID: [id number] Author: Ailyn Friend MD Service: ? Author Type: Physician Type: Progress Notes Filed: 01/11/2023 11:09 AM Note Text: PATIENT NAME: Terry Villalpando CLINIC NO.: [id number] ATTENDING PHYSICIAN: Ailyn Friend MD DATE OF SERVICE: January 11, 2023 Some of the elements of this note have been copied from my previous progress note dated 09/12/2022. All the information has been reviewed carefully. Dear Joleen Herrera, APPLICATION ARCHITECT MANAGER, here is an update on a follow up visit on paulino Villalpando at the clinic January 11, 2023 Diagnosis: SMM and thrombocytopenia Treatment History: March 2021, admitted to [facility] for blood loss anemia presumed to be [...] g/dL, KL ratio 11 Established care with pr 01/10/2022 HPI: Terry Villalpando is a 62 [...] intact. Rectal: D (more content not included)... [facility] 01-11-2023 History of Present illness Narrative PATIENT NAME: Terry Villalpando [facility] NO.: [id number] ATTENDING PHYSICIAN: Ailyn Friend MD DATE OF [...] thrombocytopenia Treatment History: March 2021, admitted to [facility] for blood loss anemia presumed to be [...] g/dL, KL ratio 11 Established care with pr 01/10/2022 HPI: Terry Villalpando is a 62 [...] Range Status 01/03/2023 12.3 % Final Abs [place] Date Value Ref Range Status 01/03/2023 0.80 [...] do not hesitate to contact me at [phone]. Ailyn Friend MD Hematology/Medical Oncology [facility] Jeimy spent a total of 30 minutes on the date of the service which included preparing to see the patient, chhm-on-vidz patient care, completing clinical documentation, obtaining and/or reviewing separately obtained history, performing a medically appropriate examination, and ordering medications, tests, or procedures. CC: Joleen Herrera, JENNIFER documented in this encounter [facility] 01-11-2023 Evaluation note Diagnosis MGUS (monoclonal gammopathy of unknown significance)- Primary Monoclonal paraproteinemia Stage 3a chronic kidney disease (HCC) documented in this encounter [facility]09-14-2023 NoteHNO ID: [id number] Author: Diana Agustin, RT(R) Service: ? Author [...] [id number] PATIENT DISCHARGED TO: Ambulatory patient, left [place] department area. A Diagnostic radioactive procedure has taken place, with no further precautions necessary other than routine body substance precautions. More information regarding radiation safety can be found using this link: [email or web address] SIGNATURE: RT Grace(R) PATIENT NAME: Terry Villalpando DATE: January 03, 2023 TIME: 1:10 PM PAGER/CONTACT #:[facility]05-30-2023 Miscellaneous Notes* Telephone Encounter - Michael Sosa Sec - 09/18/2022 11:11 AM EDT Scheduled patient I will mail appts to patient * Telephone Encounter - Roz Del Valle RN - 09/18/2022 11:06 AM EDT Spoke with pt and he is aware of NEGRO message. He is agreeable to repeat labs/PET in 3 mos. PSS: Please call pt to schedule. Roz Del Valle RN * Telephone Encounter - Ailyn Friend MD - 09/18/2022 10:43 AM EDT Labs slight upwars trend, repeat in 3 months and also get a PET scan in 3 months as well to assess bones * Telephone Encounter - Roz Del Valle RN - 09/18/2022 10:38 AM EDT Pt called requesting lab results. NEGRO/MM: please review and advise Roz Del Valle RN [facility] History of Present illness Narrative* Ailyn Friend MD - 01/10/2022 3:25 PM EDT PATIENT NAME: Terry Villalpando [facility] NO.: [id number] ATTENDING PHYSICIAN: Ailyn Friend MD DATE OF SERVICE: January 10, 2022 Dealevon Herrera, APPLICATION ARCHITECT MANAGER, here is an update on a follow up visit on male Terry Villalpando at the clinic 01/10/2022 Diagnosis: MGUS and thrombocytopenia Treatment History: March 2021, admitted to [facility] for blood loss anemia presumed to be secondary to supratherapeutic INR while on warfarin. He was transfused RBCs and given intravenous iron. No EGD or colonoscopy performed. Referred to pr in September 2021 for evaluation of MGUS [...] g/dL, KL ratio 11 Established care with pr 01/10/2022 HPI: Terry Villalpando is a 61 [...] 0.66 (L) 1.00 - 4.00 k/uL Final Gil[place]% Date Value Ref Range Status 01/03/2022 13.3 % Final Abs [place] Date Value Ref Range Status 01/03/2022 0.62 [...] repeat in 4 months, slight elevation of [place] light chain Thrombocytopenia- Improved Monitor Creat CHF on LVAD per cardiology at Follow Iron parameters Thank you for the kind referral. If there are any questions and or concerns please do not hesitate to contact me at [phone]. Ailyn Friend MD Hematology/Medical Oncology [facility] Sera Munson spent a total of 25 minutes on the date of the service which included preparing to see the patient, nsfp-us-fihx patient care, completing clinical documentation, obtaining and/or reviewing separately obtained history, performing a medically appropriate examination, and ordering medications, tests, or procedures. Medical Decision Making: Medical Decision Making Level: 1 - N/A CC: Joleen Herrera CNP [facility] Miscellaneous Notes* Telephone Encounter - Tonia Jayden - 01/03/2022 9:50 AM EDT Patient has a RUSS appointment next week but showed up today. Wants labs. Do you want to order anything? [facility] Evaluation note* LVEF % at Discharge:Left [...] dry, no edemaCardiovascular: S1,S2, +LVAD hum (HM2) [facility]09-08-2022 Hospital Discharge instructions* Activity:activity as tolerated. May shower. May drive. * Additional Orders:Weight: Weigh yourself daily and record. Take these numbers with you to your LVADappointment. If your weight increases by more than 3 lbs from baseline weight, call the office at [phone].Additional Instructions: VADDaily Care Change the exit site [...] each morning and record. Call your hospital automotive parts counterperson if you gain more than 3 pounds [...] to untangle them.Immediately jordyn l your hospital automotive parts counterperson if you notice any changes in how [...] system, you can hire a local control equipment electrician to do it for you. Know and understand the warnings and cautions associated with having a VAD for safe operation (see your Patient Handbook for a complete list of warnings and cautions) For any questions or concerns after discharge please notify:VAD Coordinator Contact Numbers: Pager #[phone] all laboratory test/lab results must be faxed to [phone] ATTN: VAD TEAM * Call Provider If:Breathing [...] physician. * Follow Up Appointment 1:Physician/Dept/Service: Ju Palacios, JENNIFER/LVAD ClinicScheduled Date/Time: 02-Jan-2022 14:00Location: [facility], [address], [place], [place], [address]Ddvnx Number: [phone]: Bring your medication bottles (or u pdated med list) and a list of your daily weights. * Follow Up Appointment 2:Physician/Dept/Service: Dr. Kraus/Yomi for Referral: MGUS and bone marrow biopsy resultsLocation[facility] [address], [place], [place] [address]Syrkd Number: Comments: Please call to schedule an appointment so that bone marrow biopsy results can be reviewed. * Coumadin (Warfarin) Follow-Up Monitoring:Physician/Dept/Service: Please check INR level with your home monitor tomorrow Saturday12/29/21.Date/Time next PT/INR due: 29-Dec-2021 12:00 [facility]07-14-2022 History of Present illness Narrative* Jerrell Kraus [...] thrombocytopenia HEMATOLOGICAL HISTORY: March 2021, admitted to [facility] for blood loss anemia presumed to be [...] history; quit in 2010. He lives in [place], [place] with his , [place]. MEDICATIONS AND [...] to facilitate the procedure (Dr. Ju Palacios [phone]). In the meantime, he will return in 2 months with labs prior. Thrombocytopenia is mild but new compared to March 2021. Haptoglobin is undetectable. Nestor is negative. LDH and total bilirubin are moderately high. My suspicion is thrombocytopenia secondary toLVAD shearing. My suspicion for overt hemolysis remains low. Ultrasound of the liver and spleen is negative. Jerrell Kraus MD [phone] I spent a total of 35 minutes on the date of the service which included preparing to see the patient, xfyq-lc-ieae patient care, completing clinical documentation, obtaining and/or reviewing separately obtained history, performing a medically appropriate examination, counseling and educating the pat ient/family/caregiver, ordering medications, tests, or procedures, independently interpreting results (not separately reported) and communicating results to the patient/family/caregiver. CC: Joleen Palacios, Cardiology, documented in this [facility] History of Present illness Narrative* Jerrell [...] thrombocytopenia HEMATOLOGICAL HISTORY: March 2021, admitted to [facility] for blood loss anemia presumed to be [...] history; quit in 2010. He lives in [place], [place] with his , [place]. MEDICATIONS AND [...] which included preparing to see the patient, zeeq-cy-eqdd patient care, completing clinical documentation, obtaining and/or reviewing separately obtained history, performing a medically appropriate examination, counseling and educating the pat ient/family/caregiver, ordering medications, tests, or procedures, independently interpreting results (not separately reported) and communicating results to the patient/family/caregiver. CC: Joleen Herrera [facility] History of Present illness Narrative* Jerrell [...] focal bony pain. March 2021, admitted to [facility] for blood loss anemia presumed to be [...] history; quit in 2010. He lives in [place], [place] with his , [place]. MEDICATIONS AND [...] which included preparing to see the patient, dchd-pz-gvxl patient care, completing clinical documentation, obtaining and/or reviewing separately obtained history, performing a medically appropriate examination, counseling and educating the pat ient/family/caregiver, ordering medications, tests, or procedures, independently interpreting results (not separately reported) and communicating results to the patient/family/caregiver. CC: Joleen Herrera documented in this [facility]22 History of Present illness Narrative* Patient identification verified with 2 patient identifiers. * Anticoagulation Monitoring Service: [facility]. * Enrollment/Re-enrollment date: August 07, 2022. * The patient is being seen as a follow-up for anticoagulation monitoring. * Target INR 2-3. Monitoring practitioner Ju Palacios CNP. * Date Warfarin Begun: 2016 * INR monitoring is per [facility] protocol. PT MAY NOT GO LONGER THAN 2 WEEKS BETWEEN APPTS. * The patient is on anticoagulation due to LVAD and NOTIFY LVAD COORDINATOR JENNIFER PALACIOS (PAGER #[phone]) FOR INR <1.8 OR >4. * The patient is currently taking warfarin Tablet strength and color: 3 mg (Ugarte) * Interval History: * September 05, 2021. * Previous INR was 3.5. ONE DOSE HELD THEN TWD MAINTAINED. * Incoming total weekly dose 31.5 mg. * Today's Clinic INR: AMS INR 2.2. * Since last visit, the [...] and prescribed plan of care. Anticoagulation Monitoring Service[facility] Work Phone: 1(138) 130-691812-03-2021 Hospital Discharge instructions* Activity:activity as tolerated. May drive. * Labs 1 (Modify Template):Lab Test(s): CBC with dif, Comprehensive Metabolic Panel, LDH, iron studies, ferritin, digoxinDate To Be Drawn: Saturday03/31/21Fax Results To: Fax results to LVAD clinic # [phone] Attn: LVADComments: Patient has lab orders * Additional Orders:Blood Glucose Monitoring: before meals and at bedtimeWeight: Weigh yourself dailyand record. Take these numbers with you to your LVAD appointment. If your weight increases by more than 3 lbs from baseline weight, call the office at [phone].Additional Instructions: VADDaily Care Change the exit site [...] each morning and record. Call your hospital automotive parts counterperson if you gain more than 3 pounds [...] time to untangle them.Immediately call your hospital automotive parts counterperson if you notice any changes in how [...] electrical system, youcan hire a local control equipment electrician to do it for you. Know and understand the warnings and cautions associated with having a VAD for safe operation (see your Patient Handbook for a complete list of warningsand cautions) For any questions or concerns after discharge please notify:VAD Coordinator Contact Numbers: Pager #[phone] all laboratory test/lab results must be faxed to [phone] ATTN: VAD TEAM * Call Provider If:Any [...] UpScheduled Date/Time: 05-Apr-2021 15:00Location: Virtual visitPhone Number: [phone]: Bring your medication bottles (or updated med list) and a list of your daily weights. * Coumadin (Warfarin) Follow-Up Monitoring:Physician/Dept/Service: [facility] Coumadin ClinicDate/Time nextPT/INR due: 31-Mar-2021 11:00Phone Number: [phone]: Please call to schedule an appointment for INR check on Saturday03/31/21 [facility]05-01-2014 History of Present illness Narrative* Mr. Villalpando is a 59 y/o male with a PMHx sig for stage D systolic HF/NICM/HFrEF with severe LV dysfunction s/p ICD s/p HM II LVAD (08/2013 at [facility]; exchanged 07/2016 at [facility] for pump thrombosis) with associated RV dysfunction, CKD, dyslipidemia, DM, pAF, and subclinical hypothyroidism who presents to the LVAD clinic for ongoing evaluation and management. * He is co-managed by the team at [facility] (Dr Yi). * Interval Hx: Patient [...] doing well with his heart failure goals. [facility] [address] [place] Work Phone: 1(262) 888-785105-01-2014 History of Present illness Narrative* Mr. Villalpando is a 60 y/o male with a PMHx sig for stage D systolic HF/NICM/HFrEF with severe LV dysfunction s/p ICD s/p HM II LVAD (08/2013 at [facility]; exchanged 07/2016 at [facility] for pump thrombosis) with associated RV dysfunction, CKD, dyslipidemia, DM, pAF, and subclinical hypothyroidism who presents to the LVAD clinic for ongoing evaluation and management. * He is co-managed by the team at [facility] (Dr Yi). * Interval Hx: Patient was hospitalized from 03/22-03/27/21 for anemia 2/2 GIB (3 days of black tarry stools). At his local lab ([place]), Hgb was 5.9. He came to ED [...] faxed to the LVAD Clinic. DC weight nnv694.3 kg/236.5 lbs. * He reports feeling well [...] doing well with his heart failure goals. RQ-Wwiorakrgj-ZpfjkhtChi [facility] [address] Work Phone: 1(496) 416-562705-01-2014 History of Present illness Narrative* Mr. Villalpando is a 60 y/o male with a PMHx sig for stage D systolic HF/NICM/HFrEF with severe LV dysfunction s/p ICD s/p HM II LVAD (08/2013 at [facility]; exchanged 07/2016 at [facility] for pump thrombosis) with associated RV dysfunction, CKD, dyslipidemia, DM, pAF, and subclinical hypothyroidism who presents to the LVAD clinic for ongoing evaluation and management. * He is co-managed by the team at [facility] (Dr Yi). * Interval Hx: Patient was hospitalized from 03/22-03/27/21 for anemia 2/2 GIB (3 days of black tarry stools). At his local lab ([place]), Hgb was 5.9. He came to ED [...] faxed to the LVAD Clinic. DC weight mcx684.3 kg/236.5 lbs. * He reports feeling well [...] doing well with his heart failure goals. [facility] Work Phone: 1(247) 885-257105-01-2014 History of Present illness Narrative* Mr. Villalpando is a 60 y/o male with a PMHx sig for stage D systolic HF/NICM/HFrEF with severe LV dysfunction s/p ICD s/p HM II LVAD (08/2013 at [facility]; exchanged 07/2016 at [facility] for pump thrombosis) with associated RV dysfunction, CKD, dyslipidemia, DM, pAF, and subclinical hypothyroidism who presents to the LVAD clinic for ongoing evaluation and management. * He is co-managed by the team at [facility] (Dr Yi). * Interval Hx: Patient was hospitalized from 03/22-03/27/21 for anemia 2/2 GIB (3 days of black tarry stools). At his local lab ([facility]), Hgb was 5.9. He came to ED [...] faxed to the LVAD Clinic. DC weight gws273.3 kg/236.5 lbs. * He reports feeling well [...] doing well with his heart failure goals. [facility] Work Phone: 1(237) 672-479305-01-2014 History of Present illness Narrative* Primary LVAD Furnace Worker: Dr. Lay Vaca * Mr. 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 * He is co-managed by the team at [facility] (Dr Yi). * Interval Hx: Patient [...] doing well with his heart failure goals. OP-Wnaureqiuk-KQP [address] [place] Work Phone: 1(854) 882-610205-01-2014 History of Present illness Narrative* Primary LVAD Furnace Worker: Dr. Lay Vaca * Mr. 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 * He is co-managed by the team at [facility] (Dr Yi). Has not been seen by [facility] in a couple of years he [...] doing well with his heart failure goals. IG-Vuzqdzehmk-ZTF [place] [address] [place] Work Phone: 1([phone]) 292-741805-01-2014 History of Present illness Narrative* Primary LVAD Furnace Worker: Dr. Lay Vaca * Mr. 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 * He is co-managed by the team at [facility] (Dr Yi). Has not been seen by [facility] in a couple of years he [...] goals. Due For: electrolytes and an echocardiogram. HL-Sjaiyzfetv-VFE [address] [place] Work Phone: [phone]) 617-602805-01-2014 History of Present illness Narrative* Primary LVAD Furnace Worker: Dr. Lay Vaca * Mr. 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 * He is co-managed by the team at [facility] (Dr Yi). Has not been seen by [facility] in a couple of years he [...] goals. Due For: electrolytes and an echocardiogram. [facility] Work Phone: 1(802) 227-798005-01-2014 History of Present illness Narrative* Primary LVAD Furnace Worker: Dr. Lay Vaca * Mr. 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 * He is co-managed by the team at [facility] (Dr Yi). Has not been seen by [facility] in a couple of years he [...] goals. Due For: electrolytes and an echocardiogram. [facility] Work Phone: Chihl complaint Narrative - ReportedLARRCaterina VILLALPANDO is being seen for a 5 week follow-up of heart failure, mechanical circulatory supportand a routine medication evaluation. He denies medication side effects. [facility] [address] [place] Work Phone: Chiyu complaint Narrative - ReportedLARRY YUVAL is being seen for a 6 month follow-up of heart failure, mechanical circulatory support and a routine medication evaluation. He denies medication side effects. [facility] [address] [place] Work Phone: Chilq complaint Narrative - ReportedLARRY YUVAL is being seen for a 3 month follow-up of heart failure, mechanical circulatory support and a routine medication evaluation. He denies medication side effects. [facility] [address] [place] Work Phone: Evaluation + Plan note No data available for this section [facility] LVEF % at Discharge:Left Ventricular Ejection [...] alert and cooperativePsychological: Appropriate mood and behavior [facility]* Diagnosis MGUS (monoclonal gammopathy of unknown significance)- Primary Monoclonal paraproteinemia Thrombocytopenia (HCC) Thrombocytopenia, unspecified Encounter for screening for human immunodeficiency virus (HIV) Special screening examination for other specified viral diseases [facility] Diagnosis MGUS (monoclonal gammopathy of unknown significance)- Primary Monoclonal paraproteinemia Absent serum haptoglobin Thrombocytopenia (HCC) Thrombocytopenia, unspecified [facility] Diagnosis MGUS (monoclonal gammopathy of unknown significance)- Primary Monoclonal paraproteinemia Absent serum haptoglobin Thrombocytopenia (HCC) Thrombocytopenia, unspecified [facility]* Diagnosis MGUS (monoclonal gammopathy of unknown significance)- Primary Monoclonal paraproteinemia Abnormal finding of blood chemistry, unspecified documented in this encounter [facility] note* Diagnosis Monoclonal gammopathy- Primary Monoclonal paraproteinemia Multiple myeloma not having achieved remission (HCC) Multiple myeloma, without mention of having achieved remission Malignant neoplasm of prostate (HCC) Malignant neoplasm of prostate Stage 3a chronic kidney disease (HCC) [facility]* Diagnosis ICD (implantable cardioverter-defibrillator) discharge- Primary ICD (implantable cardioverter-defibrillator) discharge HFrEF (heart failure with reduced ejection fraction) (CMS/HCC) History of left ventricular assist device (CMS/HCC) LVAD (left ventricular assist device) present (CMS/HCC) Heart failure (CMS/HCC) Unspecified heart failure Other specified hypothyroidism HFrEF (heart failure with reduced ejection fraction) ([facility]) LVAD (left ventricular assist device) present ([facility]/HCC) ICD (implantable cardioverter-defibrillator) discharge LVAD (left ventricular assist device) present ([facility]) documented in this encounter [facility] Work Phone: Evaluation note* Diagnosis Cardiomyopathy, unspecified ([facility]) Presence of automatic (implantable) cardiac defibrillator documented in this encounter [facility] Work Phone: Evaluation note* Diagnosis Type 2 diabetes mellitus with diabetic polyneuropathy, with long-term current use of insulin ([facility])- Primary BMI 33.0-33.9,adult Chronic systolic heart failure ([facility]) Chronic systolic heart failure Cardiac arrhythmia, unspecified cardiac arrhythmia type History of implantable cardioverter-defibrillator (ICD) insertion [facility] Diagnosis LVAD (left ventricular assist device) present ([facility])- Primary documented in this encounter [facility] Work Phone: Evaluation note* Diagnosis VT (ventricular tachycardia) (Multi) Paroxysmal ventricular tachycardia Cardiomyopathy, unspecified type (Multi) documented in this encounter [facility] Work Phone: Evaluation note* Diagnosis LVAD (left ventricular assist device) present (Multi) HFrEF (heart failure with reduced ejection fraction) (Multi) documented in this encounter [facility] Work Phone: Evaluation note* Diagnosis Smoldering multiple myeloma- Primary Multiple myeloma, without mention of having achieved remission Abnormal finding of blood chemistry, unspecified [facility] Diagnosis Iron deficiency anemia due to chronic blood loss- Primary Iron deficiency anemia secondary to blood loss (chronic) [facility]* Patient identification verified with 2 patient identifiers. * Anticoagulation Monitoring Service: [facility]. * Enrollment/Re-enrollment date: August 07, 2022. * The patient is being seen as a new patient for anticoagulation monitoring. * Pt was seen today in the [facility] for NPV. Pt was referred by JENNIFER Palacios with dx ofLVAD. Patient contract form completed. Past medical history includes: afib, AI, CHF, COPD, DM, HLD,HTN, HI, RENU. Current meds reviewed and are listed in EMR. Educational information discussed including: indication, potential drug interactions (including ASA and ibuprofen), dietary considerations, effects of alcohol, changes in general health to report, compliance with f/u, dosing (including missed doses), signs of bleeding/clotting to report, and to seek medical attention if illness or injury occurs. [facility] voicemail number given to pt. Take home material provided. Pt verbalized understanding. PT HAS BEEN ON WARFARIN SINCE AT LEAST 2016 AND IS NOW ESTABLISHING CARE WITH [facility]. * Target INR 2-3. Monitoring practitioner JENNIFER PALACIOS. * Date Warfarin Begun: 2016 * INR monitoring is per [facility] protocol. PT MAY NOT GO LONGER THAN 2 WEEKS BETWEEN APPTS. * The patient is on anticoagulation due to LVAD and NOTIFY LVAD COORDINATOR JENNIFER PALACIOS (PAGER #[phone]) FOR INR <1.8 OR >4. * The patient is currently taking warfarin Tablet strength and color: 3 mg (Ugarte) * Interval History: * Incoming total weekly dose 31.5 mg. * Today's Clinic INR: [facility] INR 2.8. * Since last visit, [...] PT REQUESTS SUBSEQUENT APPTS TO BE AT PSYCHIATRIC CLINICLOCATION. * Outgoing total weekly dose 31.5 [...] SEND FORM TO DEVIN LAZARO. Anticoagulation Monitoring Service[facility] Work Phone: Progress note No data available for this section [facility] for referral (narrative)* Diagnostic Procedure Only (Routine) - Pending Review Specialty Diagnoses / Procedures Referred By Contac t Referred To Contact XR IMAGING Diagnoses MGUS (monoclonal gammopathy of unknown significance) Thrombocytopenia (HCC) Encounter for screening for human immunodeficiency virus (HIV) Procedures XR BONE SURVEY ROUTINE RADIOLOGIC EXAMINATION OSSEOUS SURVEY COMPL Jerrell Kraus MD [address] [place] [address] [place] [address] Xr Imaging Referral ID Status Reason Start Date Expiration Date Visits Requested Visits Authorized [id number] Pending Review Auto-Generat ed Referral 09/21/2021 10/21/2022 1 1 * Diagnostic Procedure Only (Routine) - Pending Review Specialty Diagnoses / Procedures Referred By Contac t Referred To Contact US IMAGING Diagnoses MGUS (monoclonal gammopathy of unknown significance) Thrombocytopenia (HCC) Encounter for screening for human immunodeficiency virus (HIV) Procedures US ABD RT UPPER QUADRANT US ABDOMINAL REAL TIME W/IMAGE LIMITED Jerrell Kraus MD [address] [place] [address] [place] [address] Us Imaging Referral ID Status Reason Start Date Expiration Date Visits Requested Visits Authorized [id number] Pending Review Auto-Generat ed Referral 09/21/2021 10/21/2022 1 1 * Diagnostic Procedure Only (Routine) - Pending Review Specialty Diagnoses / Procedures Referred By Contac t Referred To Contact US IMAGING Diagnoses MGUS (monoclonal gammopathy of unknown significance) Thrombocytopenia (HCC) Encounter for screening for human immunodeficiency virus (HIV) Procedures US ABD SPLEEN US ABDOMINAL REAL TIME W/IMAGE LIMITED Jerrell Kraus MD [address] [place] [address] [place] [address] Us Imaging Referral ID Status Reason Start Date Expiration Date Visits Requested Visits Authorized [id number] Pending Review Auto-Generat ed Referral 09/21/2021 10/21/2022 1 1 [facility] Diagnostic Procedure Only (Routine) - Authorized Specialty Diagnoses / Procedures Referred By Contac t Referred To Contact MOLECULAR & FUNCTIONAL IMAGING Diagnoses Multiple myeloma not having achieved remission (HCC) Monoclonal gammopathy Procedures NM PET/CT WHOLE BODY INITIAL PET IMAGING FOR CT ATTENUATION WHOLE BODY Ailyn Friend MD [address] [place] [id number] Molecular & Functional Imaging [address] [place] [address] Referral ID Status Reason Start Date Expiration Date Visits Requested Visits Authorized [id number] Authorized Auto-Generat ed Referral 12/19/2022 10/18/2023 1 1 [facility] Summary Purpose Family History No Family History Records Found Mother Name Dates Details Family history of [...] failure: Mother, Father(V17.49, Z82.49) Status:Active Advance Directives No Advanced Directives Records FoundDocuments on File Type Date Recorded 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[facility] Power of Att 05/27/2023 Date Activated Date Inactivated Comments 05/19/2023 6:33 PM Question Answer Comments Plan of Care: Code Status Discussion Completed Decision Maker: Patient Latest Code Status on File Code Status Date Activated Date Inactivated Comments Full Code 05/19/2023 6:33 PM Question Answer Comments Plan of Care: Code Status Discussion Completed Decision Maker: Patient Documents on File Type Date Recorded 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[facility] Power of Att 05/27/2023 Latest Code Status on File Code [...] Referral Specialty Diagnoses / Procedures Referred By Tegan hawk Referred To Contact Cardiology Diagnoses Cardiomyopathy, unspecified (CMS/HCC) Presence of automatic (implantable) cardiac defibrillator Procedures Cardiac device check - Remote Matias Driver MD [address] [place] [address] Referral ID Status Reason Start Date Expiration Date Visits Requested Visits Authorized [id number] Pending Review Perform Procedure 05/27/2023 05/26/2024 1 1 Referral ID Status Reason Start Date Expiration Date Visits Requested Visits Authorized [id number] Pending Review Perform Procedure 05/29/2023 05/28/2024 1 1 Specialty Diagnoses / Procedures Referred By Tegan hawk Referred To Contact Cardiology Diagnoses Cardiomyopathy, unspecified (CMS/HCC) Presence of automatic (implantable) cardiac defibrillator Procedures Cardiac device check - Remote Matias Driver MD [address] [place] [address] Referral ID Status Reason Start Date Expiration Date Visits Requested Visits Authorized [id number] Pending Review Perform Procedure 06/11/2023 06/10/2024 1 1 Referral ID Status Reason Start Date Expiration Date Visits Requested Visits Authorized [id number] Pending Review Perform Procedure 06/14/2023 06/13/2024 1 1 Referral ID Status Reason Start Date Expiration Date Visits Requested Visits Authorized [id number] Pending Review Perform Procedure 06/17/2023 06/16/2024 1 1 Specialty Diagnoses / Procedures Referred By Contac t Referred To Contact Cardiology Diagnoses VT (ventricular tachycardia) (Multi) Cardiomyopathy, unspecified type (Multi) Procedures Cardiac Device Check - In Clinic Matias Driver MD [address] [place] [address] Referral ID Status Reason Start Date Expiration Date Visits Requested Visits Authorized [id number] Pending Review Perform Procedure 06/03/2023 06/02/2024 7 7 Specialty Diagnoses / Procedures Referred By Contac t Referred To Contact Cardiology Diagnoses LVAD (left ventricular assist device) present (Multi) HFrEF (heart failure with reduced ejection fraction) (Multi) Procedures Transthoracic Echo (TTE) Complete CA ECHO TTHRC R-T 2D W/WOM-MODE COMPL SPEC&[place] [address] [place] [address] Referral ID Status Reason Start Date Expiration Date Visits Requested Visits Authorized [id number] Pending Review Perform Procedure 09/23/2023 09/22/2024 1 1 Additional Source Comments (unrecognized sect ion and content) No Status Records FoundNo Status Records FoundNo Status Records FoundNo Status Records FoundNo Status Records FoundNo Status Records FoundNo Status Records FoundNo Status Records Found INFORMATION SOURCE (unrecogn ized section and content) DATE CREATED AUTHOR 08/24/2018 [facility] DATE CREATED AUTHOR AUTHOR'S ORGANIZ ATION 08/17/2022 [employer] DATE CREATED AUTHOR AUTHOR'S ORGANIZ ATION 09/02/2022 [facility] DATE CREATED AUTHOR AUTHOR'S ORGANIZ ATION [facility]/11/2023 [facility] DATE CREATED AUTHOR AUTHOR'S ORGANIZ ATION 08/04/2023 [facility] DATE CREATED AUTHOR AUTHOR'S ORGANIZ ATION 08/14/2023 [facility] DATE CREATED AUTHOR AUTHOR'S ORGANIZ ATION 10/26/2023 [facility] DATE CREATED AUTHOR AUTHOR'S LEXUS ALANIS 12/01/2023 [facility] <item><item> Privacy Markings (unrecogniz ed section and [...] or prosecute any alcohol or drug abuse patient.[facility] the event this information is protected by the Federal Confidentiality of Alcohol and Drug Abuse Patient Records regulations: The Federal rules restrict any use of the information to criminally investigate or prosecute any alcohol or drug abuse patient.[facility] HospitalIn the event this information is protected by the Federal Confidentiality of Alcohol and Drug Abuse Patient Records regulations: The Federal rules restrict any use of the information to criminally investigate or prosecute any alcohol or drug abuse patient.[facility] HospitalIn the event this information is protected by the Federal Confidentiality of Alcohol and Drug Abuse Patient Records regulations: The Federal rules restrict any use of the information to criminally investigate or prosecute any alcohol or drug abuse patient.[facility] HospitalIn the event this information is protected by the Federal Confidentiality of Alcohol and Drug Abuse Patient Records regulations: The Federal rules restrict any use of the information to criminally investigate or prosecute any alcohol or drug abuse patient.[facility] HospitalIn the event this information is protected by the Federal Confidentiality of Alcohol and Drug Abuse Patient Records regulations: The Federal rules restrict any use of the information to criminally investigate or prosecute any alcohol or drug abuse patient.[facility] HospitalIn the event this information is protected by the Federal Confidentiality of Alcohol and Drug Abuse Patient Records regulations: The Federal rules restrict any use of the information to criminally investigate or prosecute any alcohol or drug abuse patient.[facility] HospitalIn the event this information is protected by the Federal Confidentiality of Alcohol and Drug Abuse Patient Records regulations: The Federal rules restrict any use of the information to criminally investigate or prosecute any alcohol or drug abuse patient.[facility] HospitalIn the event this information is protected by the Federal Confidentiality of Alcohol and Drug Abuse Patient Records regulations: The Federal rules restrict any use of the information to criminally investigate or prosecute any alcohol or drug abuse patient.[facility] HospitalIn the event this information is protected by the Federal Confidentiality of Alcohol and Drug Abuse Patient Records regulations: The Federal rules restrict any use of the information to criminally investigate or prosecute any alcohol or drug abuse patient.[facility] Hospital[facility] the event this information is protected by the Federal Confidentiality of Alcohol and Drug Abuse Patient Records regulations: The Federal rules restrict any use of the information to criminally investigate or prosecute any alcohol or drug abuse patient.[facility] Reason for Visit (unrecogniz ed section [...] Procedures NO CODED SERVICES Len Guardado MD [address] [facility] [address] [place] [address] [facility] [address] [address] [place] [address] Referral ID Status Reason Start Date Expiration Date Visits Re quested Visits Authorized [id number] 1 1 Specialty Diagnoses / Procedures Referred By Contac t Referred To Contact Cardiology Diagnoses Cardiomyopathy, unspecified (CMS/HCC) Presence of automatic (implantable) cardiac defibrillator Procedures Cardiac device check - Remote Matias Driver MD [address] [place] [address] Referral ID Status Reason Start Date Expiration Date Visits Requested Visits Authorized [id number] Pending Review Perform Procedure 05/27/2023 05/26/2024 1 1 Referral ID Status Reason Start Date Expiration Date Visits Requested Visits Authorized [id number] Pending Review Perform Procedure 05/29/2023 05/28/2024 1 1 Specialty Diagnoses / Procedures Referred By Contac t Referred To Contact Cardiology Diagnoses Cardiomyopathy, unspecified (CMS/HCC) Presence of automatic (implantable) cardiac defibrillator Procedures Cardiac device check - Remote Matias Driver MD [address] [place] [address] Referral ID Status Reason Start Date Expiration Date Visits Requested Visits Authorized [id number] Pending Review Perform Procedure 06/11/2023 06/10/2024 1 1 Referral ID Status Reason Start Date Expiration Date Visits Requested Visits Authorized [id number] Pending Review Perform Procedure 06/14/2023 06/13/2024 1 1 Referral ID Status Reason Start Date Expiration Date Visits Requested Visits Authorized [id number] Pending Review Perform Procedure 06/17/2023 06/16/2024 1 1 Specialty Diagnoses / Procedures Referred By Contac t Referred To Contact Cardiology Diagnoses VT (ventricular tachycardia) (Multi) Cardiomyopathy, unspecified type (Multi) Procedures Cardiac Device Check - In Clinic Matias Driver MD [address] [place] [address] Referral ID Status Reason Start Date Expiration Date Visits Requested Visits Authorized [id number] Pending Review Perform Procedure 06/03/2023 06/02/2024 7 7 Reason Comments Lvad Present Reason Comments IV iron Specialty Diagnoses / Procedures Referred By Contac t Referred To Contact Diagnoses Iron deficiency anemia due to chronic blood loss Ailyn Friend MD [address] [place] [address] [address] [place] [address] Referral ID Status Reason Start Date Expiration Date V isits Requested Visits Authorized [id number] Authorized 10/17/2023 01/15/2024 99 99 Care Teams (unrecognized sec tion and content) Joint Maker Machine Relationship Specialty Start Date End Date Joleen Herrera, APPLICATION ARCHITECT MANAGER [address] [place] [address] PCP - General Family Practice 09/13/21 Joint Maker Machine Relationship Specialty Start Date End Date Joleen Herrera, APPLICATION ARCHITECT MANAGER [address] [place] [address] PCP - General Family Practice 09/13/21 Joint Maker Machine Relationship Specialty Start Date End Date Joleen Herrera, APPLICATION ARCHITECT MANAGER [address] [place] [address] PCP - General Family Practice 09/13/21 Joint Maker Machine Relationship Specialty Start Date End Date Joleen Herrera APPLICATION ARCHITECT MANAGER [address] [place] [address] PCP - General Family Medicine 09/13/21 Joint Maker Machine Relationship Specialty Start Date End Date Joleen Herrera APPLICATION ARCHITECT MANAGER [address] [place] [address] PCP - General Family Medicine 09/13/21 Joint Maker Machine Relationship Specialty Start Date End Date Joleen Herrera APPLICATION ARCHITECT MANAGER [address] [place] [address] PCP - General Family Medicine 09/13/21 Joint Maker Machine Relationship Specialty Start Date End Date Joleen Herrera APPLICATION ARCHITECT MANAGER [address] [place] [address] PCP - General Family Medicine 09/13/21 Joint Maker Machine Relationship Specialty Start Date End Date Joleen Herrera ASSOCIATE PROFESSOR OF GEOLOGY-APPLICATION ARCHITECT MANAGER [address] [place] [phone] PCP - General 02/21/20 Poly Dominguez, RN Registered Nurse Transplant 01/23/23 Nazanin Coleman, RN MCS Coordinator Transplant 05/17/23 [place] [address] [place] [address] Consulting Physician Cardiology 05/17/23 Aisha Enriquez ASSOCIATE PROFESSOR OF GEOLOGY-APPLICATION ARCHITECT MANAGER [address] [place] [address] Department [place] [address] Nurse Practitioner Cardiology 05/23/23 Joint Maker Machine Relationship Specialty Start Date End Date Joleen Herrera ASSOCIATE PROFESSOR OF GEOLOGY-APPLICATION ARCHITECT MANAGER [address] [place] [phone] PCP - General 02/21/20 Poly Dominguez, DIDI Registered Nurse Transplant 01/23/23 Nazanin Coleman, DIDI MCS Coordinator Transplant 05/17/23 [place] [address] [place] [address] Consulting Physician Cardiology 05/17/23 Aisha Enriquez ASSOCIATE PROFESSOR OF GEOLOGY-APPLICATION ARCHITECT MANAGER [address] [place] [address] Department [place] [address] Nurse Practitioner Cardiology 05/23/23 Joint Maker Machine Relationship Specialty Start Date End Date Obed Burrell MD PCP - General Family Medicine 04/17/23 Joleen Herrera NP [address] [place] [address] Nurse Practitioner Family Medicine 04/17/23 Joint Maker Machine Relationship Specialty Start Date End Date Obed Burrell MD [address] [place] [phone] PCP - General Family Medicine 05/30/23 Joleen Herrera NP [address] [place] [phone] Nurse Practitioner Family [facility] 04/17/23 Joint Maker Machine Relationship Specialty Start Date End Date BamJoleen ramirez ASSOCIATE PROFESSOR OF GEOLOGY-APPLICATION ARCHITECT MANAGER [address] [place] [address] PCP - General 02/21/20 Poly Dominguez RN Registered Nurse Transplant 01/23/23 Nazanin Coleman RN MCS Coordinator Transplant 05/17/23 [place] [address] [place] [address] [place], [facility]17 Consulting Physician Cardiology 05/17/23 Aisha Enriquez ASSOCIATE PROFESSOR OF GEOLOGY-APPLICATION ARCHITECT MANAGER [address] [place] [address] Nurse Practitioner Cardiology 05/23/23 Lainey Zhang, [facility] Compliance Tester Automation Test Developer 05/30/23 Joint Maker Machine Relationship Specialty Start Date End Date BamJoleen ramirez, ASSOCIATE PROFESSOR OF GEOLOGY-APPLICATION ARCHITECT MANAGER [address] [place] [address] PCP - General 02/21/20 Poly Dominguez RN Registered Nurse Transplant 01/23/23 Nazanin Coleman RN MCS Coordinator Transplant 05/17/23 [place] [address] [place] [address] Consulting Physician Cardiology 05/17/23 Aisha Enriquez [facility] [address] [place] [address] Nurse Practitioner Cardiology 05/23/23 Lainey Zhang, [facility] Automation Test Developer 05/30/23 Joint Maker Machine Relationship Specialty Start Date End Date [facility] ASSOCI[facility] PROFESS[facility]YB[facility] [address] [facility] [place] [phone] PCP - General 02/21/20 Nazanin Coleman, RN MCS Coordinator Transplant 05/17/23 [place] [address] [place] [address] Consulting Physician Cardiology 05/17/23 Aisha Enriquez APRN-[facility] [address] [place] [address] Nurse Practitioner Cardiology 05/23/23 Lainey Zhang, [facility] 05/30/23 Joint Maker Machine Relationship Specialty Start Date End Date [facility] ASSOCIATE PROFESSOR OF [facility]YBRIST[facility] [address] [facility] [place] [phone] PCP - General 02/21/20 Nazanin Coleman, DIDI MCS Coordinator Transplant 05/17/23 [place] [address] [place] [address] Consulting Physician Cardiology 05/17/23 Aisha Enriquez ASSOCIATE PROFESSOR OF GEOLOGY-[facility] [address] [place] [address] Nurse Practitioner Cardiology 05/23/23 Lainey Zhang, [facility] Compliance Tester Automation Test Developer 05/30/23 Joint Maker Machine Relationship Specialty Start Date End Date Joleen Herrera APRN-APPLICATION ARCHITECT MANAGER [address] [place] [phone] PCP - General 02/21/20 Nazanin Coleman, DIDI MCS Coordinator Transplant 05/17/23 Len Guardaod MD Consulting Physician Cardiology 05/17/23 Aisha Enriquez APRN-APPLICATION ARCHITECT MANAGER Nurse Practitioner Cardiology 05/23/23 Lainey Zhang, [facility] Compliance Tester Automation Test Developer 05/30/23 Rupali Reece RN MCS Coordinator Transplant 09/03/23 Joint Maker Machine Relationship Specialty Start Date End Date [facility] [address] [place] [address] PCP - General Family Medicine 09/13/21 Joint Maker Machine Relationship Specialty Start Date End Date [facility] [address] [place] [address] PCP - General Family Medicine 09/13/21 Joint Maker Machine Relationship Specialty Start Date End Date Joleen Herrera CNP [address] [place] [address] PCP - General Family Medicine 09/13/21 Joint Maker Machine Relationship Specialty Start Date End Date Joleen Herrera CNP [address] [place] [address] PCP - General Family Medicine 09/13/21 Scheduled Active and Recently Administ ered Medications (unrecognized section and content) Medication Order 05/22/2023 05/23/2023 05/24/2023 amiodarone (Pacerone) tablet 200 mg 200 mg, [...] Esther Pugh RN)2035 (Given - Provider: Darby Mayra, RN) 0839 (Given - Provider: Esther Pugh RN)2100 (Due) cephalexin (Keflex) capsule 500 mg(Linked Group 1) 500 mg, oral, Every 8 hours scheduled, First dose on Leny 05/23/23 at 1400, For 3 days, Suspected Indication (Select all that apply): Surgical Prophylaxis 1337 (Given - Provider: Esther Pugh RN)2037 (Given - Provider: Darby Nunez RN) 0608 [...] 0610 (Given - Provider: Darby Nunez RN) 0608 (Given - Provider: Darby Nunez RN) [...] RN) 09 (Given - Provider: Esther Pugh RN)2035 (Given [...] RN) 0927 (Given - Provider: Esther Pugh RN)203 (Given [...] Darby Nunez RN) 0609 (Given - Provider: Darby Nunez RN) rosuvastatin (Crestor) tablet 10 mg 10 mg, oral, Daily, First dose on 05/19/23 at 1230 0926 (Given - Provider: Esther Pugh RN) 0932 (Given - Provider: Esther Pugh RN) 0840 (Given - Provider: Esther Pugh RN) sennosides-docusate sodium (Beatrice-Colace) 8.6-50 mg per tablet 1 tablet 1 tablet, oral, Nightly, First dose on 05/19/23 at 2100 2025 (Given - Provider: Darby Nunez RN) 203 (Given - Provider: Darby Nunez RN) 2099 (Due) spironolactone (Aldactone) tablet 25 mg 25 mg, oral, Daily, First dose on 05/19/23 at 1230 0921 (Given - Provider: Esther Pugh RN)1122 (Held by provider - Provider: LUBNA Prieto - Reason: Other) 0900 (Not Given - Provider: Esther Pugh RN - Reason: See Provider Order) 0900 (Not Given - Provider: Esther Pugh RN - Reason: See Provider Order) torsemide (Demadex) tablet 20 mg 20 mg, oral, Daily, First dose on Sat05/21/23 at 1315 0921 (Given - Provider: Esther Pugh RN)1122 (Held by provider - Provider: LUBNA Prieto - Reason: Other) 0900 (Not Given - [...] Prophylaxis 0610 (New Bag - Provider: Darby Mayra, RN)0640 (Stopped - Provider: Darby Nunez, RN) warfarin (Coumadin) tablet 1 mg 1 [...] Intraprocedure 161 (Given - Provider: Parker Moser RN)1624 (Given - Provider: Parker Moser RN) glucagon [...] needed, Starting on Sat05/22/23 at 1616, Intraprocedure 1616 (Given - Provider: Parker Ehsan, RN)1625 (Given - Provider: Parker Moser RN)1644 (Given - Provider: Parker Moser RN) polyethylene glycol (Glycolax, Miralax) packet 17 g [...] BE BASED ON THE PRIMARY CLINICAL RECORDS. [employer] provides no warranty or guarantee of the accuracy or completeness of information in this document.
[2023-12-04 09:25] LABS: Hematocrit 42.4 % (42.0-54.0); Hemoglobin 12.8 g/dL (14.0-18.0); Mean Corpuscular HGB Conc 30.2 g/dL (29.9-35.2); Mean Corpuscular Hemoglobin 27.8 pg (25.9-34.0); Mean Platelet Volume 11.8 fL (9.5-13.5); Platelet Count 140 10^3/uL (150-450); Red Blood Count 4.61 10^6/uL (4.70-6.10); Red Cell Distribution Width 19.9 % (11.0-15.0); White Blood Count 5.6 10^3/uL (4.0-11.0)
[2023-12-04 10:27] LABS: Eosinophils Absolute Manual 0.33 10^3/uL (0.00-0.70); Lymphocytes Absolute Manual 0.89 10^3/uL (1.20-3.80); Monocytes Absolute Manual 0.56 10^3/uL (0.30-0.80)
[2023-12-04 10:31] LABS: Alanine Aminotransferase 35 U/L (16-63); Albumin Globulin Ratio 0.8; Albumin Level 3.7 g/dL (3.4-5.0); Alkaline Phosphatase 85 U/L (46-116); Aspartate Amino Transferase 28 U/L (15-37); BUN Creatinine Ratio 19.4; Bilirubin Total 0.8 mg/dL (0.2-1.0); Calcium 8.9 mg/dL (8.5-10.1); Carbon Dioxide 30.4 mmol/L (21.0-32.0); Chloride 98 mmol/L (98-107); Estimated GFR (African America 45 (>=60); Estimated GFR (Non-African Ame 37 (>=60); Globulin 4.6 g/dL; Glucose 210 mg/dL (74-106); Lactate Dehydrogenase 529 U/L (85-227); Potassium 4.4 mmol/L (3.5-5.1); Sodium 136 mmol/L (136-145); TSH W/ REFLEX FT4 4.891 uIU/mL (0.358-3.740); Total Protein 8.3 g/dL (6.4-8.2)
[2023-12-04 11:06] LABS: Digoxin 1.6 ng/mL (0.9-2.0); Free T4 1.34 ng/dL (0.76-1.46)
== END 2023-12-04 08:20 | disposition home or self-care (01) ==
LOC: LAB 08:22
PROVIDERS: PCP Nurse Practitioner
DX: Z79.899 Other long term (current) drug therapy (principal); Z95.811 Presence of heart assist device; I50.41 Acute combined systolic (congestive) and diastolic (congestive) heart failure; Z91.89 Other specified personal risk factors, not elsewhere classified
CPT/HCPCS: 36415; 80053; 80162; 83615; 83880; 84439; 84443; 85007; 85027

== ENCOUNTER 2024-02-04 19:18 | Emergency (ER) | payer MEDICARE, MEDICAID, SELFPAY ==
[2024-02-04 19:21] VITALS: PULSE 68; TEMP 36.4; O2SAT 95; BMI 33.9
[2024-02-04 19:32] VITALS: BP 90/0
--- NOTE | 2024-02-04 19:33 | XR_ITS ---
The [address] [address] Patient Name: TERRY BARAKAT MRN: [id number] date: 1960 Sex: M Assigned Patient Location: ED.MAIN Current Patient Location: ER Accession/Order Number: [id number] Exam Date: 02/04/2024 19:38 Report Date: 02/04/2024 20:47 At the request of: LEONEL RICHARD Procedure: XR chest 1V CXR - 1 VIEW HISTORY: Shortness of breath COMPARISON: 05/19/2023 chest x-ray TECHNIQUE: Single frontal view of the chest is submitted for review. FINDINGS: Cardiac pacer is present with AICD capability. Mediastinal wires are aligned and intact. Lungs are adequately expanded. The cardiac silhouette measures enlarged. Pulmonary vascularity is increased. Osseous structures are stable. XR/XR chest 1V IMPRESSION: Cardiomegaly with prominence of pulmonary vascularity and left-sided effusion. Please correlate for congestive heart failure. Electronically authenticated by: TYESHA CASAS Date: 02/04/2024 20:47
--- NOTE | 2024-02-04 19:34 | CT_ITS ---
The [address] [address] Patient Name: TERRY BARAKAT MRN: [id number] date: 1960 Sex: M Assigned Patient Location: ED.MAIN Current Patient Location: ED.MAIN Accession/Order Number: [id number] Exam Date: 02/04/2024 19:38 Report Date: 02/04/2024 20:39 At the request of: LEONEL RICHARD Procedure: CT head/brain wo con EXAM: CT head/brain wo con HISTORY: Dizziness. TECHNIQUE: Axial CT scans through the head were obtained without IV contrast administration. Dose reduction techniques were achieved by using: automated exposure control and/or adjustment of mA and/or kV according to patient size and/or use of an iterative reconstruction technique. COMPARISON: 08/18/2018. FINDINGS: Mild periventricular low attenuation in the cerebral hemispheres without associated mass effect. An old lacunar infarct in the left caudate head is unchanged. The brainstem and the cerebellum appear normal. The ventricular system and cortical sulci are prominent, secondary to cerebral volume loss. No area of abnormal mass effect, edema, or intracranial hemorrhage is shown. The visualized orbits show no abnormal mass. The visualized paranasal sinuses show no air-fluid level. Mastoid air cells are clear. CT/CT head/brain wo con IMPRESSION: 1. Mild old microvascular ischemic change and age-related cerebral atrophy. An old lacunar infarct in left caudate head is unchanged. 2. No acute intracranial process. Electronically authenticated by: TILA GRIER Date: 02/04/2024 20:39
--- NOTE | 2024-02-04 19:34 | ED.GENADUL1 ---
HPI HPI - General Adult General Chief complaint: Dizziness Stated complaint: Dizziness Time Seen by Provider: 02/04/24 19:26 Source: patient Mode of arrival: Wheelchair Limitations: no limitations History of Present Illness HPI narrative: Patient is a 63-year-old male who presents to the emergency department for increased dizziness and shortness of breath over the last 2 weeks. Patient has a history of cardiomyopathy and has an LVAD in place. He sees all of his specialist at [facility]. He has not contacted any of his specialist regarding these increased symptoms, he states that his and children were able to convince him to be evaluated today because his symptoms have been worsening. He describes lightheadedness without a sensation of spinning. He denies any pain or nausea. He states he feels winded, he has had occasional cough. Related Data Home Medications ?Medication ?Instructions ?Recorded ?Confirmed carvedilol 6.25 mg tablet 6.25 mg PO Q12H 05/19/23 02/04/24 cholecalciferol (vitamin D3) 50 2,000 unit PO DAILY 05/19/23 02/04/24 mcg (2,000 unit) tablet dapagliflozin propanediol 10 mg 10 mg PO DAILY 05/19/23 02/04/24 tablet (Farxiga) digoxin 125 mcg (0.125 mg) tablet 0.125 mg PO .3 times weekly 05/19/23 02/04/24 fluticasone propionate 50 2 spray intranasal DAILY 05/19/23 02/04/24 mcg/actuation nasal spray,suspension gabapentin 300 mg capsule 300 mg PO BID 05/19/23 02/04/24 insulin glargine 100 unit/mL (3 32 unit subcut BID 05/19/23 02/04/24 mL) subcutaneous pen (Basaglar KwikPen U-100 Insulin) levothyroxine 100 mcg tablet 100 mcg PO DAILY 05/19/23 02/04/24 lisinopril 5 mg tablet 5 mg PO DAILY 05/19/23 02/04/24 loratadine 10 mg tablet 10 mg PO DAILY 05/19/23 02/04/24 rosuvastatin 10 mg tablet 10 mg PO DAILY 05/19/23 02/04/24 spironolactone 25 mg tablet 25 mg PO DAILY 05/19/23 02/04/24 warfarin 3 mg tablet 4 mg PO DAILY 05/19/23 02/04/24 amiodarone 400 mg tablet 400 mg PO DAILY 02/04/24 02/04/24 insulin aspart U-100 100 unit/mL 1 sliding scale dose subcut 02/04/24 02/04/24 (3 mL) subcutaneous pen (Novolog USEASDIRECTD FlexPen U-100 Insulin aspart) pantoprazole 40 mg tablet,delayed 40 mg PO DAILY 02/04/24 02/04/24 release torsemide 20 mg tablet 40 mg PO DAILY 02/04/24 02/04/24 warfarin 4 mg tablet 4 mg PO DAILY 02/04/24 02/04/24 Allergies Allergy/AdvReac Type Severity Reaction Status Date / Time No Known Drug Allergies Allergy Verified 11/04/23 17:07 Opioid HPI Opioid Management Most Recent Opioid Data: Last Pain Scale 0 05/19/23 07:31 05/19/23 Review of Systems ROS Constitutional Denies: fever or chills Ears, nose, mouth, and throat Denies: throat pain Cardiovascular Denies: chest pain Respiratory Reports: shortness of breath and cough Gastrointestinal Denies: nausea or vomiting Musculoskeletal Denies: back pain Integumentary/Breast Denies: rash Neurological Reports: dizziness; Denies: headache, numbness in extremities or weakness in extremities Hematologic/Lymphatic Reports: easy bruising and easy bleeding PFSH PFSH Social History Smoking status: Former smoker Little interest or pleasure in doing things: not at all Feeling down, depressed, or hopeless: not at all Exam Narrative Exam Narrative: Gen.: Awake, alert, in no distress Head: Normocephalic, atraumatic ENT: Moist mucous membranes Respiratory: No respiratory distress, lungs clear bilaterally Cardio: Mechanical heart tones, no heartbeat Gastrointestinal: Abdomen is soft, nondistended and nontender to palpation Extremities: Moves extremities equally, no pedal edema Psych: Normal mood and affect Neuro: No focal neuro deficit Skin: Warm, dry, intact Constitutional Vital Signs, click to edit/add: Last Vital Signs Temp 98.7 F 02/04/24 22:45 Pulse 78 02/04/24 22:45 Resp 20 02/04/24 22:45 BP 80/0 L 02/04/24 22:45 Pulse Ox 98 02/04/24 22:45 O2 Del Method Room Air 02/04/24 19:21 Course Vital Signs Vital signs: Vital Signs Temperature 97.5 F L 02/04/24 19:21 Pulse Rate 68 02/04/24 19:21 Respiratory Rate 18 02/04/24 19:21 Pulse Oximetry 95 02/04/24 19:21 Oxygen Delivery Method Room Air 02/04/24 19:21 Temperature 98.7 F 02/04/24 22:45 Pulse Rate 78 02/04/24 22:45 Respiratory Rate 20 02/04/24 22:45 Blood Pressure 80/0 L 02/04/24 22:45 Pulse Oximetry 98 02/04/24 22:45 Oxygen Delivery Method Room Air 02/04/24 19:21 Medical Decision Making MDM Narrative Medical decision making narrative: Systolic blood pressure is able to be dopplered in this patient at 90, he states this is high for him. IV was established and labs were drawn. Patient was found to have a hemoglobin of 7.4, significantly lower than his most recent labs 2 months ago when he had a hemoglobin of 12.8. Patient denies any grossly bloody stool or dark tarry stools. He is on Coumadin daily. Rectal exam was performed with Angeli Couch RN at bedside throughout the duration of the exam. Hemoccult specimen was obtained, no gross blood noted. Type and screen was obtained. Hemoccult is positive, patient will need transfer to tertiary care for evaluation of GI bleed while on Coumadin and with LVAD in place. He is not appropriate for this facility. He and his are in agreement with treatment plan. Protonix 2129: I contacted [facility] where the patient receives his care, Dr. Llamas accepted the patient for transfer to the heart failure service, patient was accepted by Dr. Andrade for transfer to the emergency department as he currently does not have a bed assignment and Dr. Llamas requested he go ER to ER. Discussed transfer as well as transfusion, we will give the patient 1 unit of blood in the emergency room and transfer him to the emergency department in [place]. Patient is awake, alert and in no distress with no focal medical complaints at this time. Blood consent was obtained. Critical care time 35 minutes SUPERVISED APC VISIT, PHYSICIAN ATTESTATION: Based on the medical record the care appears appropriate. ? Medical Records Medical records reviewed: Yes I reviewed the patient's medical records Lab Data Lab results reviewed: Yes I reviewed the patient's lab results Labs: Lab Results 02/04/24 02/04/24 02/04/24 Range/Units 19:50 19:55 20:30 WBC 6.2 (4.0-11.0) 10^3/uL RBC 3.10 L (4.70-6.10) 10^6/uL Hgb 7.4 L (14.0-18.0) g/dL Hct 26.2 L (42.0-54.0) % MCV 84.5 (80.0-94.0) fL MCH 23.9 L (25.9-34.0) pg MCHC 28.2 L (29.9-35.2) g/dL RDW 18.2 H (11.0-15.0) % Plt Count 198 (150-450) 10^3/uL MPV 11.6 (9.5-13.5) fL Neut % (Auto) 70.8 (43.0-75.0) % Lymph % (Auto) 11.7 L (20.5-60.0) % [place] % (Auto) 11.7 (1.7-12.0) % Eos % (Auto) 4.2 (0.9-7.0) % Baso % (Auto) 1.1 (0.2-2.0) % Neut # (Auto) 4.4 (1.4-6.5) 10^3/uL Lymph # (Auto) 0.7 L (1.2-3.8) 10^3/uL [place] # (Auto) 0.7 (0.3-0.8) 10^3/uL Eos # (Auto) 0.3 (0.0-0.7) 10^3/uL Baso # (Auto) 0.1 (0.0-0.1) 10^3/uL Abs Immat Gran (auto) 0.03 (0.00-0.03) 10^3/uL Imm/Tot Granulo (auto) 0.5 (0.0-0.5) % PT 27.4 H (9.0-11.6) sec INR 2.87 Sodium 139 (136-145) mmol/L Potassium 4.0 (3.5-5.1) mmol/L Chloride 104 (98-107) mmol/L Carbon Dioxide 27.4 (21.0-32.0) mmol/L Anion Gap 11.6 BUN 29.0 H (7.0-18.0) mg/dL Creatinine 2.22 H (0.70-1.30) mg/dL Est GFR ( Amer) 37 L (>=60 mL/min/1.73m^2) Est GFR (Non-Af Amer) 30 L (>=60 mL/min/1.73m^2) BUN/Creatinine Ratio 13.1 Glucose 216 H (74-106) mg/dL Calcium 8.9 (8.5-10.1) mg/dL Magnesium 2.2 (1.8-2.4) mg/dL Total Bilirubin 0.6 (0.2-1.0) mg/dL AST 21 (15-37) U/L ALT 24 (16-63) U/L Alkaline Phosphatase 80 (46-116) U/L Troponin I High Sens 16.4 (4.0-76.1) pg/mL NT-Pro-B Natriuret Pep 879.0 (<=900.0) pg/mL Total Protein 8.0 (6.4-8.2) g/dL Albumin 3.5 (3.4-5.0) g/dL Globulin 4.5 g/dL Albumin/Globulin Ratio 0.8 TSH 4.435 H (0.358-3.740) uIU/mL Urine Color (YELLOW) Urine Clarity (CLEAR) Urine pH (5.0-9.0) Ur Specific [place] (1.005-1.025) Urine Protein (NEG/TRACE) mg/dL Urine Glucose (UA) (NEGATIVE) mg/dL Urine Ketones (NEGATIVE) mg/dL Urine Occult Blood (NEGATIVE) Urine Nitrite (NEGATIVE) Urine Bilirubin (NEGATIVE) Urine Urobilinogen (0.2-1.0) EU/dL Ur Leukocyte Esterase (NEGATIVE) Stool Occult Blood Positive A Influenza Type A Ag Negative Influenza Type B Ag Negative RSV Antigen Not detected (NOT DETECTE) SARS-CoV-2 Ag (CV2AG) Negative (NEGATIVE) Blood Type A Positive Antibody Screen Negative Crossmatch See Detail 02/04/24 Range/Units 22:00 WBC (4.0-11.0) 10^3/uL RBC (4.70-6.10) 10^6/uL Hgb (14.0-18.0) g/dL Hct (42.0-54.0) % MCV (80.0-94.0) fL MCH (25.9-34.0) pg MCHC (29.9-35.2) g/dL RDW (11.0-15.0) % Plt Count (150-450) 10^3/uL MPV (9.5-13.5) fL Neut % (Auto) (43.0-75.0) % Lymph % (Auto) (20.5-60.0) % [place] % (Auto) (1.7-12.0) % Eos % (Auto) (0.9-7.0) % Baso % (Auto) (0.2-2.0) % Neut # (Auto) (1.4-6.5) 10^3/uL Lymph # (Auto) (1.2-3.8) 10^3/uL [place] # (Auto) (0.3-0.8) 10^3/uL Eos # (Auto) (0.0-0.7) 10^3/uL Baso # (Auto) (0.0-0.1) 10^3/uL Abs Immat Gran (auto) (0.00-0.03) 10^3/uL Imm/Tot Granulo (auto) (0.0-0.5) % PT (9.0-11.6) sec INR Sodium (136-145) mmol/L Potassium (3.5-5.1) mmol/L Chloride (98-107) mmol/L Carbon Dioxide (21.0-32.0) mmol/L Anion Gap BUN (7.0-18.0) mg/dL Creatinine (0.70-1.30) mg/dL Est GFR ( Amer) (>=60 mL/min/1.73m^2) Est GFR (Non-Af Amer) (>=60 mL/min/1.73m^2) BUN/Creatinine Ratio Glucose (74-106) mg/dL Calcium (8.5-10.1) mg/dL Magnesium (1.8-2.4) mg/dL Total Bilirubin (0.2-1.0) mg/dL AST (15-37) U/L ALT (16-63) U/L Alkaline Phosphatase (46-116) U/L Troponin I High Sens (4.0-76.1) pg/mL NT-Pro-B Natriuret Pep (<=900.0) pg/mL Total Protein (6.4-8.2) g/dL Albumin (3.4-5.0) g/dL Globulin g/dL Albumin/Globulin Ratio TSH (0.358-3.740) uIU/mL Urine Color Lt. yellow (YELLOW) Urine Clarity Clear (CLEAR) Urine pH 6.0 (5.0-9.0) Ur Specific [place] 1.010 (1.005-1.025) Urine Protein Negative (NEG/TRACE) mg/dL Urine Glucose (UA) >=1000 A (NEGATIVE) mg/dL Urine Ketones Negative (NEGATIVE) mg/dL Urine Occult Blood Negative (NEGATIVE) Urine Nitrite Negative (NEGATIVE) Urine Bilirubin Negative (NEGATIVE) Urine Urobilinogen 1.0 (0.2-1.0) EU/dL Ur Leukocyte Esterase Negative (NEGATIVE) Stool Occult Blood Influenza Type A Ag Influenza Type B Ag RSV Antigen (NOT DETECTE) SARS-CoV-2 Ag (CV2AG) (NEGATIVE) Blood Type Antibody Screen Crossmatch Imaging Data CT scan - head: Attestation: I have reviewed the pertinent imaging results. Radiologist's impression: ITS Impressions Chest X-Ray 02/04/24 19:33 IMPRESSION: Cardiomegaly with prominence of pulmonary vascularity and left-sided effusion. Please correlate for congestive heart failure. Electronically authenticated by: TYESHA CASAS Date: 02/04/2024 20:[address] 02/04/24 19:34 IMPRESSION: 1. Mild old microvascular ischemic change and age-related cerebral atrophy. An old lacunar infarct in left caudate head is unchanged. 2. No acute intracranial process. Electronically authenticated by: TILA GRIER Date: 02/04/2024 20:39 Critical Care Time Critical Care Time Critical Care Time: Yes Total Critical Care Time: 35 Attestation: 35 minutes of critical care time for evaluation of GI bleed, transfusion and transfer to tertiary care facility Discharge Plan Discharge Chief Complaint: Dizziness Clinical Impression: Anemia, Acute GI bleeding, Dizziness Patient Disposition: [facility] Time of Disposition Decision: 21:35 Discharge location: [facility] Condition: Fair Discharge Date/Time: 02/04/24 23:33
--- OUTSIDE RECORDS SUMMARY | 2024-02-04 19:39 | XMS_ITS | CCD ---
Author Organization [facility] CliniSyal Care Team Providers Care Towboat Pilot Name Role Phone NENA YOUNG AM Admitting [...] Admitting Unavailable KUNTE, JERRELL Consulting Unavailable AICHHOLZ, CAREER PLACEMENT SERVICES COUNSELOR JOLEEN Consulting Unavailable AICHHOLZ, CAREER PLACEMENT SERVICES COUNSELOR JOLEEN Primary Care Unavailable AICHHOLZ, CAREER PLACEMENT SERVICES COUNSELOR JOLEEN Attending Unavailable AICHHOLZ, CAREER PLACEMENT SERVICES COUNSELOR JOLEEN Admitting Unavailable AICHHOLZ, CAREER PLACEMENT SERVICES COUNSELOR JOLEEN Consulting Unavailable AICHHOLZ, CAREER PLACEMENT SERVICES COUNSELOR JOLEEN Primary Care Unavailable AICHHOLZ, CAREER PLACEMENT SERVICES COUNSELOR JOLEEN Attending Unavailable AICHHOLZ, CAREER PLACEMENT SERVICES COUNSELOR JOLEEN Admitting Unavailable AICHHOLZ, CAREER PLACEMENT SERVICES COUNSELOR JOLEEN Consulting Unavailable AICHHOLZ, CAREER PLACEMENT SERVICES COUNSELOR JOLEEN Primary Care Unavailable AICHHOLZ, CAREER PLACEMENT SERVICES COUNSELOR JOLEEN Attending Unavailable AICHHOLZ, CAREER PLACEMENT SERVICES COUNSELOR JOLEEN Admitting Unavailable MISC, DR MORELOS Consulting Unavailable AICHHOLZ, CAREER PLACEMENT SERVICES COUNSELOR JOLEEN Primary Care Unavailable MISC, DOCTOR Attending Unavailable MISC, DOCTOR Admitting Unavailable AICHHOLZ, CAREER PLACEMENT SERVICES COUNSELOR JOLEEN Consulting Unavailable AICHHOLZ, CAREER PLACEMENT SERVICES COUNSELOR JOLEEN Primary Care Unavailable AICHHOLZ, CAREER PLACEMENT SERVICES COUNSELOR JOLEEN Attending Unavailable AICHHOLZ, CAREER PLACEMENT SERVICES COUNSELOR JOLEEN Admitting Unavailable AICHHOLZ, CAREER PLACEMENT SERVICES COUNSELOR JOLEEN Consulting Unavailable AICHHOLZ, CAREER PLACEMENT SERVICES COUNSELOR JOLEEN Primary Care Unavailable AICHHOLZ, CAREER PLACEMENT SERVICES COUNSELOR JOLEEN Attending Unavailable AICHHOLZ, CAREER PLACEMENT SERVICES COUNSELOR JOLEEN Admitting Unavailable BRIDGET, DR TORI Villagomez Consulting Unavailable AICHHOLZ, CAREER PLACEMENT SERVICES COUNSELOR JOLEEN Primary Care Unavailable AICHHOLZ, CAREER PLACEMENT SERVICES COUNSELOR JOLEEN Attending Unavailable AICHHOLZ, CAREER PLACEMENT SERVICES COUNSELOR JOLEEN Admitting Unavailable AICHHOLZ, CAREER PLACEMENT SERVICES COUNSELOR JOLEEN Consulting Unavailable AICHHOLZ, CAREER PLACEMENT SERVICES COUNSELOR JOLEEN Consulting Unavailable AICHHOLZ, CAREER PLACEMENT SERVICES COUNSELOR JOLEEN Primary Care Unavailable AICHHOLZ, CAREER PLACEMENT SERVICES COUNSELOR JOLEEN Attending Unavailable AICHHOLZ, CAREER PLACEMENT SERVICES COUNSELOR JOLEEN Admitting Unavailable DR ROBIN GROVE Consulting Unavailmanuel GROVE, DR ROBIN Ye Attending Unavailmanuel e PERFECTO, DR ROBIN Ye Admitting Unavailabl e AICHHOLZ, CAREER PLACEMENT SERVICES COUNSELOR JOLEEN Primary Care Unavailable CHADWICK SHERMAN Consulting Unavailable Aichsilvianoz Joleen RODRIGUEZ Primary Care Provider JOLEEN HERRERA Primary Care Physician David Johnson Attending Unavailable Aichholz CHRISTINAJoleen RODRIGUEZ Primary Care Provider Alberto TOLBERT, Poly Unavailable Unavailable Jared TOLBERT, Nazanin Unavailable Unavailable Duglas SEVILLA, Len Mayo Unavailable Charbel [facility], Aisha A Unavailable Ashanti SEVILLA, Obed Primary Care Provider [phone] Aichbrant 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, Joleen Unavailable Ashanti SEVILLA, Obed Primary Care Provider [phone] Charbel [facility], Aisha A Unavailable Lainey Guzman Unavailable Unavaila ble Aichholz, Mrs. Joleen Sri Primary Care Unavailab LEN Quinn Attending Unavailable Aichholz, Mrs. Joleen Sri Primary Care Unavailab LEN Quinn Attending Unavailable AICHHOLZ, JOLEEN Attending Unavailable AICHHOLZ, JOLEEN Attending Unavailable AICHHOLZ, JOLEEN Attending Unavailable AICHHOLZ, JOLEEN Attending Unavailable Len Guardado MD Unavailable [phone] Charbel [facility], Aisha A Unavailable Rupali Reece RN Unavailable Unavailable Aichholz CAREER PLACEMENT SERVICES COUNSELOR, Joleen Sri Primary Care Provider AICHHOLZ, JOLEEN SRI Primary Care Unavailable KARAMLOU, AILYN Referring Unavailable AICHHOLZ, JOLEEN SRI Primary Care Unavailable KARAMLOU, AILYN Attending Unavailable KUNTE, JERRELL Referring Unavailable AICHHOLZ, JOLEEN SRI Primary Care Unavailable KARAMLOU, AILYN Attending Unavailable KUNTE, JERRELL Referring Unavailable AICHHOLZ, JOLEEN SRI Primary Care Unavailable AICHHOLZ, JOLEEN SRI Primary Care Unavailable JODY DA SILVA Attending Unavailable AISHA ENRIQUEZ Referring Unavailable AICHHOLZ, JOLEEN SRI Primary Care Unavailable OPAL HDZ Attending Unavailable AICHHOLZ, JOLEEN SRI Primary Care Unavailable AICHHOLZ, JOLEEN SRI Primary Care Unavailable LEN GUARDADO Attending Unavailable LEN GUARDADO Admitting Unavailable DRIVER, REYNAEIM Referring Unavailable AICHHOLZ, JOLEEN SRI Primary Care Unavailable DRIVER, ESSEIM Referring Unavailable AICHHOLZ, JOLEEN SRI Primary Care Unavailable DRIVER, ELOISEM Referring Unavailable AICHHOLZ, JOLEEN SRI Primary Care Unavailable ENRIQUEZ, AISHA A Attending Unavailable AICHHOLZ, JOLEEN SRI Primary Care Unavailable DRIVER, ESSEIM Referring Unavailable AICHHOLZ, JOLEEN SRI Primary Care Unavailable DRIVER, ESSEIM Referring Unavailable AICHHOLZ, JOLEEN SRI Primary Care Unavailable DRIVER, ESSEIM Referring Unavailable AICHHOLZ, JOLEEN SRI Primary Care Unavailable DRIVER, ESSEIM Referring Unavailable AICHHOLZ, JOLEEN SRI Primary Care Unavailable JOHN SOLITARIO Attending Unavailable AICHHOLZ, JOLEEN SRI Primary Care Unavailable NOAM EDWARDS Referring Unavailable AICHHOLZ, JOLEEN SRI Primary Care Unavailable AISHA ENRIQUEZ Attending Unavailable AICHHOLZ, JOLEEN SRI Primary Care Unavailable DRIVER, ESSEIM Referring Unavailable AICHHOLZ, JOLEEN SRI Primary Care Unavailable COOPER VACA Attending Unavailable AICHHOLZ, JOLEEN SRI Primary Care Unavailable AICHHOLZ, JOLEEN SRI Primary Care Unavailable COOPER VACA Attending Unavailable AICHHOLZ, JOLEEN SRI Primary Care Unavailable OPAL HDZ Admitting Unavailable OPAL HDZ Attending Unavailable AICHHOLZ, JOLEEN SRI Primary Care Unavailable Allergies Allergy Classification Reported Allergen(s) Allergy Type Date of Onset Reaction(s) Facility (1 source) 02879,00; Translations: [53350,00] Propensity to adverse reactions (disorder) 0 [facility] Repository (1 source) ALLERGIES NOT ON FILE; Translations: [ALLERGIES NOT ON FILE] Propensity to adverse reactions (disorder) [facility] Repository Medications Current Medications Medication Drug [...] twice daily Quantity: 270 Refills: 2 Ordered: 5-Oct-2020 Ju Lee Start : 21-Dec-2014 Active take 1 tablet by ar th once daily carvedilol 6.25 mg oral tablet ; 1 tab(s) orally once a day Quantity: 0 Refills: 0 Ordered: 13-Aug-2016 Angel Luis Richmond Isaac Status: Discontinued Generic Substitution Allowed Comment on [...] the morning cholecalciferol (Vitamin D-3) 50 MCG (2000 UT) capsule Take 2,000 Units by mouth [...] Take 1 tablet by mouth once daily. 09/14/2021 Active take 1 tablet by ar [...] Vaca DO Start : 21-Dec-2014 Active take 125 ug by mouth every other day DIGOXIN ORAL Take 125 mcg by mouth every other day. Active take 1 tablet by ar th [...] by mouth twice daily fish oil concentrate ([place]-3) 120-180 mg capsule Take 2 capsules (2 [...] Allowed docusate sodium 50 mg / sennosides, half-way 8.6 mg oral tablet (1 source) Start: [...] 2 Sprays in each nostril once daily. 08/29/2022 Active Comment on above: Use 2 [...] injection (1 source) Antihypoglycemic Agent Start: 05-19-19 24 glucagon (Glucagen) injection 1 mg 1000 ml glucose 100 mg/ml injection (2 sources) Start: 05-19-19 24 dextrose 50 % injection 25 g Start: [...] Maurer Start : 21-Dec-2014 Active insulin detemir (LEVEMIR FLEXTOUCH U-100 INSULN SUBCUTANEOUS) Inject subcutaneously. Active insulin detemir (Levemir Flextouch) 100 unit/mL [...] polyneuropathy, with long-term current use of insulin ([facility]) Inject 30 Units under the skin in the morning and 30 Units before bedtime. 18 mL 3 05/15/2023 06/14/2023 Active insulin lispro 100 unt/ml injectable solution (1 source) Insulin Analog Start: 05-19-19 24 insulin lispro (HumaLOG) injection 0-10 Units 3 ml insulin aspart, human 100 unt/ml pen injector (20 sources) Insulin Analog Start: 11-23-19 insulin aspart (NovoLOG FlexPen U-100 Insulin) 100 [...] 0 Start : 22-Nov-2016 Active insulin aspart ( NOVOLOG FLEXPEN U-100 INSULIN SUBCUTANEOUS) Inject subcutaneously. Active insulin aspart 1 00 units/mL subcutaneous [...] (15 sources) Parenteral Iron Replacement Start: 03-27-20 take 300 mg intravenously once daily iron [...] 100 mcg by mouth daily before breakfast. Active take 1 tablet by ar th [...] sources) Angiotensin Converting Enzyme Inhibitor Start: 09-04-19 take 1 tablet by mouth once daily lisinopril 5 mg tablet Indications: LVAD (left ventricular assist device) present (Multi) , Hypertension, unspecified type , HFrEF (heart failure with reduced ejection fraction) (Multi) TAKE ONE TABLET BY MOUTH ONCE DAILY 30 tablet 11 09/04/2023 Active Start: 01-25-2022 take 1 tablet by ar th in the morning lisinopril 5 MG tablet Take 5 mg by mouth in the morning. 0 03/07/2023 Active loratadine 10 mg oral tablet (20 sources) Start: 08-29-2022 End: 06-08-2023 take 1 tablet by mouth once daily loratadine (CLARITIN) 10 mg tablet Take 10 mg by mouth once daily. 08/29/2022 Active Comment on above: Take 10 [...] Substitution Allowed mupirocin 0.02 mg/mg topical ointment (17 sources) RNA Synthetase Inhibitor Antibacterial Start: 11-29-2022 [...] 28-Dec-2021 Generic Substitution Allowed polyethylene glycol 3350 03014 mg powder for oral solution (1 source) [...] SAT, AND SAT TAKE 1 EXTRA TABLET 09/14/2021 Active Start: 08-29-2017 End: 05-24-2023 torsemide (Demadex) 20 mg ta blet Indications: LVAD (left ventricular assist device) present (CMS/HCC) Take 1 tablet (20 mg) by mouth see administration instructions. Take one Saturday, Saturday, and Saturday 30 tablet 0 05/24/2023 Active Start: 08-29-[address] [facility] once daily Torsemide 20 MG Oral Tablet TAKE 3 TABLETS DAILY Refills: 0 John Solitario MD Start : 29-Aug-2017 Active Comment on above: TAKE TWO TABLETS BY MOUTH ONCE DAILY IN THE MORNING -ON MON, WED, AND FRI TAKE 1 EXTRA TABLET warfarin sodium 4 mg oral tablet (20 sources) Vitamin K Antagonist Start: 08-21-2023 End: 08-19-2024 warfarin (Coumadin) 4 mg tablet Indications: HFrEF (heart failure with reduced ejection fraction) (Multi) Take as directed per After Visit Summary. 30 tablet 11 08/21/2023 08/19/2024 Active Start: 05-24-2023 End: 07-21-2024 [...] Take 4 mg by mouth as directed. Active take 4.5 mg by mouth five [...] Start: 05-23-2023 take 1 tablet by ar every four hours as needed acetaminophen (Tylenol) tablet 650 mg Start: 03-01-2020 take 2 tablets by mo [facility] every six hours as needed acetaminophen 325 [...] Start: 09-12-2017 take 1 capsule by mo [facility] every twenty-four hours aspirin-dipyridamole 25 mg-200 [...] Quantity: 14 Refills: 0 Ordered: 28-Mar-2021 Ju Lee Start : 17-Jun-2019 Active Start: 06-17-2019 Enoxaparin Sod ium 100 MG/ML SOLN INJECT 100 mg every twelve hours as needed until INR is between 2.0-3.0. Quantity: 14 Refills: 0 Ordered: 28-Mar-2021 Ju Horn Start : 17-Jun-2019 Active 1 ml fentaNYL [...] unspecified] Chronic Asthma (1 source) Asthma 03-27-2021 Blindness and vision defects (2 sources) Other visual disturbances; Translations: [Other visual disturbances] Onset: 4 Episodic Cancer of prostate (1 source) Malignant tumor of prostate; Translations: [Malignant neoplasm of prostate] Chronic Cardiac dysrhythmias (20 sources) Atrial fibrillation; Translations: [Atrial fibrillation] Onset: 4 05-19-2023 Chronic Cataract (6 sources) Combined forms of age-related cataract, right eye; Translations: [Combined forms of age-related cataract, left eye] Onset: 4 Chronic Chronic kidney disease (20 sources) Chronic [...] fatigue] Onset: 1 03-27-2021 Episodic Multiple myeloma (3 sources) Multiple myeloma; Translations: [Multiple myeloma not having achieved remission] Onset: 3 Chronic Neoplasms of unspecified nature or uncertain behavior (15 sources) Monoclonal gammopathy of uncertain significance; Translations: [Monoclonal gammopathy] Onset: 2 Chronic Nutritional deficiencies (4 sources) Vitamin D deficiency, unspecified; Translations: [Vitamin D deficiency] Onset: 2 04-24-2023 Chronic Other aftercare (5 sources) exterminator helper (current) use of anticoagulants; Translations: [CARE HOME (CURRENT) USE OF ANTICOAGULANTS] Onset: 8 Episodic [...] anticoagulants] Onset: 1 03-27-2021 Episodic Other aftercare (3 sources) exterminator helper (current) use of insulin; Translations: [CARE HOME CURRENT USE OF INSULIN] Onset: 3 Episodic [...] conditions (not mental disorders or infectious disease) (9 sources) Deviation of international normalized ratio from [...] Translations: [Localized edema] Onset: 3 04-10-2023 Episodic Retinal detachments; defects; vascular occlusion; and retinopathy (2 sources) Unspecified macular degeneration; Translations: [Unspecified macular degeneration] Onset: 4 Chronic Superficial injury; contusion (1 source) Contusion of [...] antithrombotic long-term use 03-25-2021 Unclassified (1 source) senior care current use of aspirin 03-27-2021 Unclassified (1 [...] 01-18-2023 03-25-2021 Episodic Other aftercare (1 source) senior care (current) use of aspirin; Translations: [CARE HOME CURRENT USE OF ASPIRIN] Onset: 04-03-2022 Episodic Other aftercare (1 source) Other m[facility] (current) drug therapy; Translations: [Other rn long term care (current) drug therapy] Onset: 08-15-2022 Episodic Other [...] Interpretation Reference Range Facility TRANSTHORACIC ECHO (TTE) [facility] 11-25-2023 TRANSTHORACIC ECHO (TTE) [facility], [address] [place] [address] and TRANSTHORACIC ECHOCARDIOGRAM REPORT Patient Name: TERRY Monteiro YUVAL Santoyo Physician: [id number] Ruby Cornejo MD Study Date: 11/25/2023 Ordering Provider: [id number] NOAM EDWARDS MRN/PID: [id number] Fellow: Nurse: Alisha Love RN Date of /Age: 408/05/1960 / 63 years Surface Plate Finisher: Leslie Allen RDCS Gender: M Additional Staff: Height: 180.34 cm Admit Date: Weight: 116.12 kg Admission Status: Outpatient BSA / BMI: 2.34 m2 / 35.70 kg/m2 Blood Pressure: / Department Location: [facility] Non Invasive Study Type: TRANSTHORACIC ECHO (TTE) COMPLETE Diagnosis/ICD: Presence of heart assist device-Z95.811 Indication: LVAD CPT Code: Echo Complete w Full Doppler-40788 Patient History: Pertinent History: Stage D HFrEF [...] 13 % L (more content not included)... [facility] Shane 10-17-2023 CNPN Telephone (HEMASA) VILLALPANDO,LARRY ([id number]) 1960 M Date Time Provider Department 10/17/23 MICHAEL GREER During your visit today, we recorded the following information about you: Michael Greer RN 10/17/2023 8:53 AM Signed ----- Message from Ailyn Friend MD sent at 10/16/2023 4:46 PM EDT ----- Please let him know that he is low On Iron and will benefit from IV Iron if he is interested. Let me know Michael Greer RN 10/17/2023 9:45 AM Signed Discussed results [...] Status:Closed by KIZZY PEÑA on 10/18/23 Normal [facility] CBC W Auto Differential pane l (Bld)on 10-15-2023 Anisocytosis Ql (Bld) Present Normal [facility] Comment on above: Order Comment: Speci men Type: BLOOD SPECIMEN Ordering Facility: [facility] Address: [address] [place], [place] [id number] Performed By: #### S RAJAT #### [facility] CLIA [id number] [address] [facility] [address] [place] Basophils (Bld) [#/Vol] 0.08 10*3/uL Normal <0.11 [facility] Comment on above: Order Comment: Speci men Type: BLOOD SPECIMEN Ordering Facility: [facility] Address: [address] Performed By: #### S ERIMM #### [facility] CLIA [id number] [address] [place] [address] [place] Basophils/100 WBC (Bld) 1.3 % Normal [facility] Comment on above: Order Comment: Speci men Type: BLOOD SPECIMEN Ordering Facility: [facility] Address: [address] Performed By: #### S ERIMM #### [facility] CLIA [id number] [address] [place] [address] [place] Differential cell count method Nom (Bld) Auto Normal [facility] Comment on above: Order Comment: Speci men Type: BLOOD SPECIMEN Ordering Facility: [facility] Address: [address] Performed By: #### S ERIMM #### [facility] CLIA [id number] [address] [place] [address] [place] Eosinophils (Bld) [#/Vol] 0.34 10*3/uL Normal <0.46 [facility] Comment on above: Order Comment: Speci men Type: BLOOD SPECIMEN Ordering Facility: [facility] Address: [address] Performed By: #### S ERIMM #### [facility] CLIA [id number] [address] [place] [address] [place] Eosinophils/100 WBC (Bld) 5.6 % Normal [facility] Comment on above: Order Comment: Speci men Type: BLOOD SPECIMEN Ordering Facility: [facility] Address: [address] Performed By: #### S ERIMM #### [facility] CLIA [id number] [address] [place] [address] [place] Erythrocyte distribution width (RBC) [Ratio] 16.2 % High 11.5-15.0 [facility] Comment on above: Order Comment: Speci men Type: BLOOD SPECIMEN Ordering Facility: [facility] Address: [address] [place] [address] Performed By: #### S ERIMM #### [facility] CLIA [id number] [address] [place] [address] [place] Hematocrit (Bld) [Volume fraction] 41.5 % Normal 39.0-51.0 [facility] Comment on above: Order Comment: Speci men Type: BLOOD SPECIMEN Ordering Facility: [facility] Address: [address] [place] [address] Performed By: #### S ERIMM #### [facility] CLIA [id number] [facility] [place] [address] [place] Hemoglobin (Bld) [Mass/Vol] 12.6 g/dL Low 13.0-17.0 [facility] Comment on above: Order Comment: Speci men Type: BLOOD SPECIMEN Ordering Facility: [facility] Address: [address] [place], [place] [id number] Performed By: #### S ERIMM #### [facility] CLIA [id number] [address] [place] [address] [place] Immature granulocytes (Bld) [#/Vol] 10*3/uL Normal <0.10 [facility] Comment on above: Order Comment: Speci men Type: BLOOD SPECIMEN Ordering Facility: [facility] Address: [address] [place], [place] [id number] Performed By: #### S ERIMM #### [facility] CLIA [id number] [address] [place] [address] [place] Immature granulocytes/100 WBC (Bld) 0.3 % Normal [facility] Comment on above: Order Comment: Speci men Type: BLOOD SPECIMEN Ordering Facility: [facility] Address: [address] Performed By: #### S ERIMM #### [facility] CLIA [id number] [address] [place] [address] [place] Lymphocytes (Bld) [#/Vol] 0.71 10*3/uL Low 1.00-4.00 [facility] Comment on above: Order Comment: Speci men Type: BLOOD SPECIMEN Ordering Facility: [facility] Address: [address] [place] [address] Performed By: #### S ERIMM #### [facility] CLIA [id number] [address] [place] [address] [place] Lymphocytes/100 WBC (Bld) 11.6 % Normal [facility] Comment on above: Order Comment: Speci men Type: BLOOD SPECIMEN Ordering Facility: [facility] Address: [address] Performed By: #### S ERIMM #### [facility] CLIA [id number] [address] [place] [address] [place] MCH (RBC) [Entitic mass] 26.6 pg Normal 26.0-34.0 [facility] Comment on above: Order Comment: Speci men Type: BLOOD SPECIMEN Ordering Facility: [facility] Address: [address] Performed By: #### S ERIMM #### [facility] CLIA [id number] [address] [place] [address] [place] MCHC (RBC) [Mass/Vol] 30.4 g/dL Low 30.5-36.0 [facility] Comment on above: Order Comment: Speci men Type: BLOOD SPECIMEN Ordering Facility: [facility] Address: [address] [place], [place] [id number] Performed By: #### S ERIMM #### [facility] CLIA [id number] [address] [place] [address] [place] MCV (RBC) [Entitic vol] 87.7 fL Normal 80.0-100.0 [facility] Comment on above: Order Comment: Speci men Type: BLOOD SPECIMEN Ordering Facility: [facility] Address: [address] [place], [place] [id number] Performed By: #### S ERIMM #### [facility] CLIA [id number] [address] [place] [address] [place] Monocytes (Bld) [#/Vol] 0.76 10*3/uL Normal <0.87 [facility] Comment on above: Order Comment: Speci men Type: BLOOD SPECIMEN Ordering Facility: [facility] Address: [address] [place], [place] [id number] Performed By: #### S ERIMM #### [facility] CLIA [id number] [address] [place] [address] [place] Monocytes/100 WBC (Bld) 12.4 % Normal [facility] Comment on above: Order Comment: Speci men Type: BLOOD SPECIMEN Ordering Facility: [facility] Address: [address] [place], [place] [id number] Performed By: #### S ERIMM #### [facility] CLIA [id number] [address] [place] [address] [place] Neutrophils (Bld) [#/Vol] 4.20 10*3/uL Normal 1.45-7.50 [facility] Comment on above: Order Comment: Speci men Type: BLOOD SPECIMEN Ordering Facility: [facility] Address: [address] [place] [address] Performed By: #### S ERIMM #### [facility] CLIA [id number] [address] [place] [address] [place] Neutrophils/100 WBC (Bld) 68.8 % Normal [facility] Comment on above: Order Comment: Speci men Type: BLOOD SPECIMEN Ordering Facility: [facility] Address: [address] Performed By: #### S ERIMM #### [facility] CLIA [id number] [address] [place] [address] [place] Nucleated RBC (Bld) [#/Vol] 10*3/uL Normal <0.01 [facility] Comment on above: Order Comment: Speci men Type: BLOOD SPECIMEN Ordering Facility: [facility] Address: [address] Performed By: #### S ERIMM #### [facility] CLIA [id number] [address] [place] [address] [place] Nucleated RBC/100 WBC (Bld) [Ratio] 0.0 /100 WBC Normal [facility] Comment on above: Order Comment: Speci men Type: BLOOD SPECIMEN Ordering Facility: [facility] Address: [address] [place], [place] [id number] Performed By: #### S ERIMM #### [facility] CLIA [id number] [address] [place] [address] [place] Ovalocytes LM Ql (Bld) Few Normal [facility] Comment on above: Order Comment: Speci men Type: BLOOD SPECIMEN Ordering Facility: [facility] Address: [address] Performed By: #### S ERIMM #### [facility] CLIA [id number] [address] [place] [address] [place] Platelet mean volume (Bld) [Entitic vol] 11.6 fL Normal 9.0-12.7 [facility] Comment on above: Order Comment: Speci men Type: BLOOD SPECIMEN Ordering Facility: [facility] Address: [address] [place], [place] [id number] Performed By: #### S ERIMM #### [facility] CLIA [id number] [address] [place] [address] [place] Platelets (Bld) [#/Vol] 187 10*3/uL Normal 150-400 [facility] Comment on above: Order Comment: Speci men Type: BLOOD SPECIMEN Ordering Facility: [facility] Address: [address] [place] [address] Result Comment: Resu lts checked and verified.No clot detected. Performed By: #### S ERIMM #### [facility] CLIA [id number] [address] [place] [address] [place] Platelets Estimate (Bld) [#/Vol] Adequate Normal [facility] Comment on above: Order Comment: Speci men Type: BLOOD SPECIMEN Ordering Facility: [facility] Address: [address] [place] [address] Performed By: #### S ERIMM #### [facility] CLIA [id number] [address] [place] [address] [place] Polychromasia LM Ql (Bld) Slight Normal [facility] Comment on above: Order Comment: Speci men Type: BLOOD SPECIMEN Ordering Facility: [facility] Address: [address] [place] [address] Performed By: #### S ERIMM #### [facility] CLIA [id number] [facility] [place] [address] [place] RBC (Bld) [#/Vol] 4.73 10*6/uL Normal 4.20-6.00 [facility] Comment on above: Order Comment: Speci men Type: BLOOD SPECIMEN Ordering Facility: [facility] Address: [address] [place], [place] [id number] Performed By: #### S ERIMM #### [facility] CLIA [id number] [facility] [place] [address] [place] RBC FRAGMENTS Few Abnormal None Seen [place] [facility] [place] Comment on above: Order Comment: Speci men Type: BLOOD SPECIMEN Ordering Facility: [facility] Address: [address] [place] [address] Performed By: #### S ERIMM #### [facility] CLIA [id number] [address] [place] [address] [place] RED CELL MORPH Reviewed: see result s of individual morphologies Normal [facility] Comment on above: Order Comment: Speci men Type: BLOOD SPECIMEN Ordering Facility: [facility] Address: [address] [place] [address] Performed By: #### S ERIMM #### [facility] CLIA [id number] [address] [place] [address] [place] WBC (Bld) [#/Vol] 6.11 10*3/uL Normal 3.70-11.00 [facility] Comment on above: Order Comment: Speci men Type: BLOOD SPECIMEN Ordering Facility: [facility] Address: [address] [place] [address] Performed By: #### S ERIMM #### [facility] CLIA [id number] [address] [place] [address] [place] CNOVSPon 10-15-2023 CNOVSP Visit (SP) Office ([place]) TERRY VILLALPANDO ([id number]) 1960 M Date Time Provider Department 10/15/23 12:15 PM AILYN FRIEND During your visit today, we recorded the following information about you: Temperature Respiration Weight 97.6 degrees 16/minute 115.2 kg Ailyn Friend MD 10/15/2023 12:48 PM Signed PATIENT NAME: Terry Villalpando CLINIC NO.: [id number] ATTENDING PHYSICIAN: Ailyn Friend MD DATE OF SERVICE: October 15, 2023 Some of the elements of this note have been copied from my previous progress note dated 01/11/2023. All the information has been reviewed carefully. Dear Joleen Herrera, CAREER PLACEMENT SERVICES COUNSELOR, here is an update on a follow up visit on male Terry Villalpando at the clinic October 15, 2023 Diagnosis: SMM and thrombocytopenia Treatment History: March 2021, admitted to [facility] for blood loss anemia presumed to be [...] g/dL, KL ratio 11 Established care with ri 01/10/2022 HPI: Terry Villalpando is a 63 [...] to percussio (more content not included)... Normal [facility] metabolic 2000 panelOrdered By: Angeli Molina on 10-15-2023 Albumin [Mass/Vol] 4.7 g/dL 3.9 - 4.9 g/dL [facility] ALP [Catalytic activity/Vol] 96 U/L 38 - 113 U/L [facility] ALT [Catalytic activity/Vol] 18 U/L 10 - 54 U/L [facility] Anion gap [Moles/Vol] 9 mmol/L 8 - 15 mmol/L [facility] AST [Catalytic activity/Vol] 22 U/L 14 - 40 U/L [facility] Bilirubin [Mass/Vol] 0.6 mg/dL 0.2 - 1 .3 mg/dL [facility] Calcium [Mass/Vol] 10.3 mg/dL High 8.5 - 10. 2 mg/dL [facility] Chloride [Moles/Vol] 101 mmol/L 98 - 10 7 mmol/L [facility] CO2 [Moles/Vol] 29 mmol/L 22 - 30 mmol/L [facility] Creatinine [Mass/Vol] 1.70 mg/dL High 0.73 - 1.22 mg/dL [facility] GFR/1.73 sq M.predicted among non-blacks MDRD (S/P/Bld) [Vol rate/Area] 45 mL/min/{1.73_m2} Low - [facility]F [facility] Comment on above: Estimated Glomerular [...] 271 mg/dL High 74 - 99 mg/dL [facility] Comment on above: The [place] Diabete s Association (ADA) provides guidance for [...] Standards of Medical Care in Diabetes 2016, [place] Diabetes Association. Diabetes Care. 2016.39(Suppl 1). Interpretation and review of laboratory results Abnormal [facility] Potassium [Moles/Vol] 4.7 mmol/L 3.7 - 5.1 mmol/L [facility] Protein [Mass/Vol] 9.4 g/dL High 6.3 - 8.0 g/dL [facility] Sodium [Moles/Vol] 139 mmol/L 136 - 144 mmol/L [facility] Urea nitrogen [Mass/Vol] 29 mg/dL High 9 - 24 mg/dL [facility] ic Comprehensive metabolic 2000 panelon 10-15-2023 Albumin [Mass/Vol] 4.7 g/dL Normal 3.9-4.9 [facility] Comment on above: Order Comment: Nicki mookie Type: BLOOD SPECIMEN Ordering Facility: [facility] Address: [address] [address] Performed By: #### S ERIMM #### [facility] CLIA [id number] [address] [place] [address] [place] ALP [Catalytic activity/Vol] 96 U/L Normal 38-113 [facility] Comment on above: Order Comment: Nicki men Type: BLOOD SPECIMEN Ordering Facility: [facility] Address: [address] [address] Performed By: #### S ERIMM #### [facility] CLIA [id number] [address] [place] [address] [place] ALT [Catalytic activity/Vol] 18 U/L Normal 10-54 [facility] Comment on above: Order Comment: Rayshawn damico Type: BLOOD SPECIMEN Ordering Facility: [facility] Address: [address] [address] Performed By: #### S ERIMM #### [facility] CLIA [id number] [address] [place] [address] [place] Anion gap [Moles/Vol] 9 mmol/L Normal 8-15 [facility] Comment on above: Order Comment: Speci men Type: BLOOD SPECIMEN Ordering Facility: [facility] Address: [address] [place] [address] Performed By: #### S ERIMM #### [facility] CLIA [id number] [address] [place] [address] [place] AST [Catalytic activity/Vol] 22 U/L Normal 14-40 [facility] Comment on above: Order Comment: Speci men Type: BLOOD SPECIMEN Ordering Facility: [facility] Address: [address] [place] [address] Performed By: #### S ERIMM #### [facility] CLIA [id number] [facility] [place] [address] [place] Bilirubin [Mass/Vol] 0.6 mg/dL Normal 0.2-1.3 [facility] Comment on above: Order Comment: Speci men Type: BLOOD SPECIMEN Ordering Facility: [facility] Address: [address] [place], [place] [phone] Performed By: #### S ERIMM #### [facility] CLIA [id number] [facility] [place] [address] [place] Calcium [Mass/Vol] 10.3 mg/dL High 8.5-10.2 [facility] Comment on above: Order Comment: Speci men Type: BLOOD SPECIMEN Ordering Facility: [facility] Address: [address] [place] [phone] Performed By: #### S ERIMM #### [facility] CLIA [id number] [address] [place] [address] [place] Chloride [Moles/Vol] 101 mmol/L Normal 98-107 [facility] Comment on above: Order Comment: Speci men Type: BLOOD SPECIMEN Ordering Facility: [facility] Address: [address] [address] Performed By: #### S ERIMM #### [facility] CLIA [id number] [address] [place] CO2 [Moles/Vol] 29 mmol/L Normal 22-30 [facility] Comment on above: Order Comment: Speci men Type: BLOOD SPECIMEN Ordering Facility: [facility] Address: [address] [address] Performed By: #### S ERIMM #### [facility] CLIA [id number] [address] [place] [address] Creatinine [Mass/Vol] 1.70 mg/dL High 0.73-1.22 [facility] Comment on above: Order Comment: Speci men Type: BLOOD SPECIMEN Ordering Facility: [facility] Address: [address] [address] Performed By: #### S ERIMM #### [facility] CLIA [id number] [address] [place] [address] Creatinine and Glomerular filtration rate.predicted panel (S/P/Bld) 45 mL/min/1.73m??? Low >=60 [facility] Comment on above: Order Comment: Speci men Type: BLOOD SPECIMEN Ordering Facility: [facility] Address: [address] [place] [address] Result Comment: Erica mated Glomerular Filtration Rate [...] GFR. Performed By: #### S ERIMM #### [facility] CLIA [id number] [address] [place] [address] [place] Glucose [Mass/Vol] 271 mg/dL High 74-99 [facility] Comment on above: Order Comment: Rayshawn damico Type: BLOOD SPECIMEN Ordering Facility: [facility] Address: [address] [place] [address] Result Comment: The [place] Diabetes Association (ADA) provides guidance for cutoff [...] Standards of Medical Care in Diabetes 2016, [place] Diabetes Association. Diabetes Care. 2016.39(Suppl 1). Performed By: #### S ERIMM #### [facility] CLIA [id number] [facility] [place] [address] [place] Potassium [Moles/Vol] 4.7 mmol/L Normal 3.7-5.1 [facility] Comment on above: Order Comment: Rayshawn damico Type: BLOOD SPECIMEN Ordering Facility: [facility] Address: [address] [place] [address] Performed By: #### S ERIMM #### [facility] CLIA [id number] [address] [place] [address] [place] Protein [Mass/Vol] 9.4 g/dL High 6.3-8.0 [facility] Comment on above: Order Comment: Rayshawn damico Type: BLOOD SPECIMEN Ordering Facility: [facility] Address: [address] [place] [address] Performed By: #### S ERIMM #### [facility] CLIA [id number] [address] [place] [address] [place] Sodium [Moles/Vol] 139 mmol/L Normal 136-144 [facility] Comment on above: Order Comment: Speci men Type: BLOOD SPECIMEN Ordering Facility: [facility] Address: [address] [address] Performed By: #### S ERIMM #### [facility] CLIA [id number] [address] [place] [address] [place] Urea nitrogen [Mass/Vol] 29 mg/dL High 9-24 [facility] Comment on above: Order Comment: Speci men Type: BLOOD SPECIMEN Ordering Facility: [facility] Address: [address] [place], [place] [phone] Performed By: #### S ERIMM #### [facility] CLIA [id number] [address] [place] [address] [place] Ferritin SerPl-mCncon 2023 Ferritin [Mass/Vol] 28.8 ng/mL Low 30.3-565.7 [facility] Comment on above: Order Comment: Speci men Type: BLOOD SPECIMEN Ordering Facility: [facility] Address: [address] [place] [phone] Performed By: #### S ERIMM #### [facility] CLIA [id number] [address] [place] [address] [place] IMMUNOFIXATION SCREEN, SERUM on 10-15-2023 INTERPRETATION (MPA) Atypical restricted bands are present in the IgA and kappa regions. Consistent with IgA kappa monoclonal gammopathy. Normal [facility] Comment on above: Order Comment: Speci men Type: BLOOD SPECIMEN Ordering Facility: [facility] Address: [address] [place] [address] Performed By: #### I FESC #### [facility] CLIA [id number] [address] [place] [address] [place] MPA RESULT M protein is present. Abnormal No M p rotein is identified. [facility] Comment on above: Order Comment: Speci men Type: BLOOD SPECIMEN Ordering Facility: [facility] Address: [address] [place], [place] [id number] Performed By: #### I FESC #### [facility] CLIA [id number] [address] [place] [address] [place] STAFF REVIEW (MPA) Reviewed by Ramiro Romero M.D. Normal [facility] Comment on above: Order Comment: Speci men Type: BLOOD SPECIMEN Ordering Facility: [facility] Address: [address] [place] [address] Performed By: #### I FES #### [facility] CLIA [id number] [address] [place] [address] [place] IMMUNOGLOBULINS,IGG,IGA,IGMo n 10-15-2023 IgA [Mass/Vol] 1506 mg/dL High 70-400 [facility] Comment on above: Order Comment: Speci men Type: BLOOD SPECIMEN Ordering Facility: [facility] Address: [address] [place] [address] Performed By: #### S ERIMM #### [facility] CLIA [id number] [address] [place] [address] [place] IgG [Mass/Vol] 1414 mg/dL Normal 700-1600 [facility] Comment on above: Order Comment: Speci men Type: BLOOD SPECIMEN Ordering Facility: [facility] Address: [address] [place] [address] Performed By: #### S ERIMM #### [facility] CLIA [id number] [address] [place] [address] [place] IgM [Mass/Vol] 85 mg/dL Normal 40-230 [facility] Comment on above: Order Comment: Speci men Type: BLOOD SPECIMEN Ordering Facility: [facility] Address: [address] [place], [place] [address] Performed By: #### S ERIMM #### [facility] CLIA [id number] [address] [place] [address] [place] Iron and Iron binding capaci ty panelon 10-15-2023 Iron [Mass/Vol] 32 ug/dL Low 41-186 [facility] Comment on above: Order Comment: Speci men Type: BLOOD SPECIMEN Ordering Facility: [facility] Address: [address] [place] [address] Performed By: #### S ERIMM #### [facility] CLIA [id number] [address] [place] [address] [place] Iron binding capacity [Mass/Vol] 460 ug/dL High 232-386 [facility] Comment on above: Order Comment: Speci men Type: BLOOD SPECIMEN Ordering Facility: [facility] Address: [address] [place] [address] Performed By: #### S ERIMM #### [facility] IA [id number] [address] [place] [address] Iron/TIBC [Molar ratio] 7.0 % Low 15.0-57.0 [facility] Comment on above: Order Comment: Speci men Type: BLOOD SPECIMEN Ordering Facility: [facility] Address: [address] [place] [address] Performed By: #### S ERIMM #### [facility] CLIA [id number] [address] [place] [address] [place] KAPPA/HINOJOSA,FREE,SERon 2023 Immunoglobulin light chains.kappa.free (S) [Mass/Vol] 444.1 mg/L High 3.3-19.4 [facility] Comment on above: Order Comment: Speci men Type: BLOOD SPECIMEN Ordering Facility: [facility] Address: [address] [place] [address] Result Comment: Rare ly, increased serum free light chains levels may not be detected or accurately quantified due to prozone phenomenon or in high viscosity samples using this immunoturbidimetric assay. Correlation with other laboratory results and clinical findings is recommended. The [place] Free Light Chain was performed using the Binding Site Optilite immunoturbidimetric method. Result obtained with different assay methods or kits cannot be used interchangeably. Performed By: #### S ERIMM #### [facility] CLIA [id number] [address] [place] [address] [place] Immunoglobulin light chains.kappa/Immunogl obulin light chains.lambda (S) [Mass ratio] 15.97 High 0.26-1.65 [facility] Comment on above: Order Comment: Speci men Type: BLOOD SPECIMEN Ordering Facility: [facility] Address: [address] [place] [address] Performed By: #### S ERIMM #### [facility] CLIA [id number] [address] [place] [address] [place] Immunoglobulin light chains.lambda.free [Mass/Vol] 27.8 mg/L High 5.7-26.3 [facility] Comment on above: Order Comment: Speci men Type: BLOOD SPECIMEN Ordering Facility: [facility] Address: [address] [place] [address] Result Comment: Rare ly, increased serum free [...] interchangeably. Performed By: #### S ERIMM #### [facility] CLIA [id number] [address] [place] [address] [place] RETICULOCYTE COUNTon 024 Reticulocytes (Bld) [#/Vol] 0.127 10*3/uL High [facility] Retics #on 10-15-2023 Reticulocytes (Bld) [#/Vol] 0.70898 10*3/uL High 0.018-0.100 [facility] Comment on above: Order Comment: Speci men Type: BLOOD SPECIMEN Ordering Facility: [facility] Address: [address] [place] [address] Performed By: #### S MARTHAM #### [facility] CLIA [id number] [address] [place] [address] [place] Reticulocytes (Bld) [#/Vol]o n 10-15-2023 Interpretation and review of laboratory results Abnormal [facility] Reticulocytes/100 RBC (Bld) 2.7 % High 0.4 - 2.0 % [facility] Reticulocytes/100 RBC (Bld) 2.7 % High 0.4-2.0 [facility] Comment on above: Order Comment: Specmayra damico Type: BLOOD SPECIMEN Ordering Facility: [facility] Address: [address] [place] [address] Performed By: #### S ERIMM #### [facility] CLIA [id number] [address] [place] [address] [place] No Panel InformationOrdered By: Jayro Hdz on 08-02-2023 [facility] Work Phone: No Panel Informationon 08-01 Radiology Study observation (narrative) [facility] Work Phone: [facility] MICROALB CREAT RATIO RAN DOMon 05-31-2023 CREATININE URINE RANDOM <13.00 Low 20.00 - 300.00 mg/dL [facility] Interpretation and review of laboratory results Abnormal [facility] MICROALBUM CREATININE RATIO UR 0.0 mg/g 0.0 - 29.9 mg/g [facility] Comment on above: NO MICROALBUMINURIA 0-29 MG/G CLINICAL MICROALBUMINURIA 30-300 MG/G MACROALBUMINURIA >300 MG/G MICROALBUMIN URINE RANDOM <1.3 NINF - 30.0 mg/dL [facility] CBC panel Auto (Bld)on 05-24 Erythrocyte distribution width (RBC) [Ratio] 14.6 % High 11.5 - 14.5 % [facility] Hematocrit (Bld) [Volume fraction] 44.0 % 41.0 - 52.0 % [facility] Hemoglobin (Bld) [Mass/Vol] 14.3 g/dL 13.5 - 17.5 g/dL [facility] Interpretation and review of laboratory results Abnormal [facility] MCH (RBC) [Entitic mass] 31.0 pg 26.0 - 34.0 pg [facility] MCHC (RBC) [Mass/Vol] 32.5 g/dL 32.0 - 36.0 g/dL [facility] MCV (RBC) [Entitic vol] 95 fL 80 - 100 fL [facility] Nucleated RBC/100 WBC (Bld) [Ratio] 0.0 % [facility] Platelets (Bld) [#/Vol] 120 10*3/uL Low [facility] RBC (Bld) [#/Vol] 4.61 10*6/uL [facility] WBC (Bld) [#/Vol] 6.9 10*3/uL [facility] Erythrocyte distribution width (RBC) [Ratio] 14.6 % High 11.5-14.5 [facility] Comment on above: Performed By: #### T HYDS #### AISHA Monzon ([id number]) [facility] ([facility]) [address] [place] [address] Hematocrit (Bld) [Volume fraction] 44.0 % Normal 41.0-52.0 [facility] Comment on above: Performed By: #### T HYDS #### AISHA Monzon ([id number]) [facility] ([facility]) [id number] [place] [address] Hemoglobin (Bld) [Mass/Vol] 14.3 g/dL Normal 13.5-17.5 [facility] Comment on above: Performed By: #### T HYDS #### AISHA Monzon ([id number]) [facility] ([facility]) [address] [place] [address] MCH (RBC) [Entitic mass] 31.0 pg Normal 26.0-34.0 [facility] Comment on above: Performed By: #### T HYDS #### AISHA Monzon ([id number]) [facility] ([facility]) [address] [place] [address] MCHC (RBC) [Mass/Vol] 32.5 g/dL Normal 32.0-36.0 [facility] Comment on above: Performed By: #### T HYDS #### AISHA Monzon ([id number]) [facility] ([facility]) [id number] [place] [address] MCV (RBC) [Entitic vol] 95 fL Normal 80-100 [facility] Comment on above: Performed By: #### T HYDS #### AISHA Monzon ([id number]) [facility] ([facility]) [address] [place] [address] Nucleated RBC/100 WBC (Bld) [Ratio] 0.0 /100 WBCs Normal 0.0-0.0 [facility] Comment on above: Performed By: #### T HYDS #### AISHA Monzon ([id number]) [facility] ([facility]) [id number] [place] [address] Platelets (Bld) [#/Vol] 120 x10*3/uL Low 150-450 [facility] Comment on above: Performed By: #### T HYDS #### AISHA Monzon ([id number]) [facility] ([facility]) [id number] [place] [address] RBC (Bld) [#/Vol] 4.61 x10*6/uL Normal 4.50-5.90 [facility] Comment on above: Performed By: #### T HYDS #### AISHA Monzon ([id number]) [facility] ([facility]) [id number] [place] [address] WBC (Bld) [#/Vol] 6.9 x10*3/uL Normal 4.4-11.3 [facility] Comment on above: Performed By: #### T HYDS #### AISHA Monzon ([id number]) [facility] ([facility]) [address] [place] [address] Coagulation tissue factor in ducedon 05-24-2023 PT Coag (PPP) [Time] 30.0 s High 9.8-12.8 [facility] Comment on above: Performed By: #### T HYDS #### AISHA Monzon ([id number]) [facility] ([facility]) [address] [place] [address] Glucose Test strip manual (B ld) [Mass/Vol]on 05-24-2023 Glucose [Mass/Vol] 139 mg/dL High 74 - 99 mg/dL [facility] Interpretation and review of laboratory results Abnormal [facility] Glucose [Mass/Vol] 139 mg/dL High 74-99 [facility] Comment on above: Performed By: #### 1 0535-3 #### AISHA Monzon ([id number]) [facility] ([facility]) [address] [place] [address] Glucose [Mass/Vol] 131 mg/dL High 74 - 99 mg/dL [facility] Interpretation and review of laboratory results Abnormal [facility] Glucose [Mass/Vol] 131 mg/dL High 74-99 [facility] Comment on above: Performed By: #### T HYDS #### AISHA Monzon ([id number]) [facility]) [address] [place] [address] LDH Lactate to pyruvate reac tion [Catalytic activity/Vol]on 05-24-2023 Interpretation and review of laboratory results Abnormal [facility] Lactate Dehydrogenaseon LDH Lactate to pyruvate reaction [Catalytic activity/Vol] 489 U/L High 84 - 246 U/L [facility] Lactate dehydrogenaseon 0 LDH Lactate to pyruvate reaction [Catalytic activity/Vol] 489 U/L High 84-246 [facility] Comment on above: Performed By: #### 1 0535-3 #### AISHA Monzon ([id number]) [facility] ([facility]) [address] [place], [place] [id number] Magnesiumon 05-24-2023 Magnesium [Mass/Vol] 2.57 mg/dL High 1.60 - 2.40 mg/dL [facility] Magnesium [Mass/Vol] 2.57 mg/dL High 1.60-2.40 [facility] Comment on above: Performed By: #### 1 0535-3 #### AISHA Monzon ([id number]) [facility] ([facility]) [address] [place] [address] No Panel Informationon 05-24 Interpretation and review of laboratory results Abnormal [facility] PT Coag (PPP) [Time]on 05-24 INR Coag (PPP) [Relative time] 2.6 {INR} High 0.9 - 1.1 [facility] Interpretation and review of laboratory results Abnormal [facility] INR Coag (PPP) [Relative time] 2.6 High 0.9-1.1 [facility] Comment on above: Performed By: #### T HYDS #### AISHA Monzon ([id number]) [facility] ([facility]) [address] [place] [address] Protime-INRon 05-24-2023 PT Coag (PPP) [Time] 30.0 s High [facility] Renal function 2000 panelon 05-24-2023 Albumin BCP dye [Mass/Vol] 3.7 g/dL 3.4 - 5.0 g/dL [facility] Anion gap [Moles/Vol] 13 mmol/L 10 - 2 0 mmol/L [facility] Calcium [Mass/Vol] 9.4 mg/dL 8.6 - 10. 6 mg/dL [facility] Chloride [Moles/Vol] 100 mmol/L 98 - 10 7 mmol/L [facility] CO2 [Moles/Vol] 25 mmol/L 21 - 32 mmol/L [facility] Creatinine [Mass/Vol] 1.33 mg/dL High 0.50 - 1.30 mg/dL [facility] GFR/1.73 sq M.predicted among non-blacks MDRD (S/P/Bld) [Vol rate/Area] 61 mL/min/{1.73_m2} - PINF [facility] Comment on above: Calculations of erica mated GFR are performed using the 2020 CKD-EPI Study Refit equation without the race variable for the IDMS-Traceable creatinine methods. https://jasn.asnjournals.org/content//ASN.707680 0331 Glucose [Mass/Vol] 126 mg/dL High 74 - 99 mg/dL [facility] Phosphate [Mass/Vol] 3.1 mg/dL 2.5 - 4 .9 mg/dL [facility] Comment on above: The performance jean pierre acteristics of phosphorus testing in heparinized plasma have been validated by the individual laboratory site where testing is performed. Testing on heparinized plasma is not approved by the FDA; however, such approval is not necessary. Potassium [Moles/Vol] 4.7 mmol/L 3.5 - 5.3 mmol/L [facility] Sodium [Moles/Vol] 133 mmol/L Low 136 - 145 mmol/L [facility] Urea nitrogen [Mass/Vol] 34 mg/dL High 6 - 23 mg/dL [facility] Albumin BCP dye [Mass/Vol] 3.7 g/dL Normal 3.4-5.0 [facility] Comment on above: Performed By: #### 1 9835-3 #### AISHA Monzon ([id number]) [facility] ([facility]) [id number] [place] [address] Anion gap [Moles/Vol] 13 mmol/L Normal 10-20 [facility] Comment on above: Performed By: #### 1 3635-3 #### AISHA Monzon ([id number]) [facility] ([facility]) [address] [place] [address] Calcium [Mass/Vol] 9.4 mg/dL Normal 8.6-10.6 [facility] Comment on above: Performed By: #### 1 8035-3 #### AISHA Monzon ([id number]) [facility] ([facility]) [address] [place] [address] Chloride [Moles/Vol] 100 mmol/L Normal 98-107 [facility] Comment on above: Performed By: #### 1 0535-3 #### AISHA Monzon ([id number]) [facility] ([facility]) [address] [place] [address] CO2 [Moles/Vol] 25 mmol/L Normal 21-32 [facility] Comment on above: Performed By: #### 1 0535-3 #### AISHA Monzon ([id number]) [facility] ([facility]) [address] [place] [address] Creatinine [Mass/Vol] 1.33 mg/dL High 0.50-1.30 [facility] Comment on above: Performed By: #### 1 0535-3 #### AISHA Monzon ([id number]) [facility] ([facility]) [address] [place] [address] Glomerular filtration rate/1.73 sq M.predicted 61 mL/min/1.73m*2 Normal >60 [facility] Comment on above: Result Comment: Calc ulations of estimated GFR are performed using the 2020 CKD-EPI Study Refit equation without the race variable for the IDMS-Traceable creatinine methods. https://jasn.asnjournals.org/content//ASN.179363 4392 Performed By: #### 1 0535-3 #### AISHA Monzon ([id number]) [facility] ([facility]) [address] [place] [address] Glucose [Mass/Vol] 126 mg/dL High 74-99 [facility] Comment on above: Performed By: #### 1 0535-3 #### AISHA Monzon ([id number]) [facility] ([facility]) [address] [place] [address] Phosphate [Mass/Vol] 3.1 mg/dL Normal 2.5-4.9 [facility] Comment on above: Result Comment: The performance characteristics of phosphorus testing in heparinized plasma have been validated by the individual laboratory site where testing is performed. Testing on heparinized plasma is not approved by the FDA; however, such approval is not necessary. Performed By: #### 1 0535-3 #### AISHA Monzon ([id number]) [facility] ([facility]) [address] [place] [address] Potassium [Moles/Vol] 4.7 mmol/L Normal 3.5-5.3 [facility] Comment on above: Performed By: #### 1 0535-3 #### AISHA Monzon ([id number]) [facility] ([facility]) [address] [place] [address]896 Sodium [Moles/Vol] 133 mmol/L Low 136-145 [facility] Comment on above: Performed By: #### 1 0535-3 #### AISHA Monzon ([id number]) [facility] ([facility]) [address] [place] [address] 45888 Urea nitrogen [Mass/Vol] 34 mg/dL High 6-23 [facility] Comment on above: Performed By: #### 1 0535-3 #### AISHA Monzon ([id number]) [facility] ([facility]) [address] [place] [address] 05087 CBC panel Auto (Bld)on 05-23 Erythrocyte distribution width (RBC) [Ratio] 14.8 % High 11.5 - 14.5 % [facility] Hematocrit (Bld) [Volume fraction] 48.6 % 41.0 - 52.0 % [facility] Hemoglobin (Bld) [Mass/Vol] 15.6 g/dL 13.5 - 17.5 g/dL [facility] Interpretation and review of laboratory results Abnormal [facility] MCH (RBC) [Entitic mass] 30.8 pg 26.0 - 34.0 pg [facility] MCHC (RBC) [Mass/Vol] 32.1 g/dL 32.0 - 36.0 g/dL [facility] MCV (RBC) [Entitic vol] 96 fL 80 - 100 fL [facility] Nucleated RBC/100 WBC (Bld) [Ratio] 0.0 % [facility] Platelets (Bld) [#/Vol] 141 10*3/uL Low [facility] RBC (Bld) [#/Vol] 5.07 10*6/uL [facility] WBC (Bld) [#/Vol] 7.9 10*3/uL [facility] Erythrocyte distribution width (RBC) [Ratio] 14.8 % High 11.5-14.5 [facility] Comment on above: Performed By: #### 2 524-7 #### AISHA Monzon ([id number]) [facility] ([facility]) [address] [place] [address] Hematocrit (Bld) [Volume fraction] 48.6 % Normal 41.0-52.0 [facility] Comment on above: Performed By: #### 2 524-7 #### AISHA Monzon ([id number]) [facility] ([facility]) [address] [place] [address] 05396 Hemoglobin (Bld) [Mass/Vol] 15.6 g/dL Normal 13.5-17.5 [facility] Comment on above: Performed By: #### 2 524-7 #### AISHA Monzon ([id number]) [facility] ([facility]) [address] [place] [address] 40100 MCH (RBC) [Entitic mass] 30.8 pg Normal 26.0-34.0 [facility] Comment on above: Performed By: #### 2 524-7 #### AISHA Monzon ([id number]) [facility] ([facility]) [address] [place] [address] 70936 MCHC (RBC) [Mass/Vol] 32.1 g/dL Normal 32.0-36.0 [facility] Comment on above: Performed By: #### 2 524-7 #### AISHA Monzon ([id number]) [facility] ([facility]) [address] [place] [address] [place] [address] MCV (RBC) [Entitic vol] 96 fL Normal 80-100 [facility] Comment on above: Performed By: #### 2 524-7 #### AISHA Monzon ([id number]) [facility] ([facility]) [address] [place] [address] 24845 Nucleated RBC/100 WBC (Bld) [Ratio] 0.0 /100 WBCs Normal 0.0-0.0 [facility] Comment on above: Performed By: #### 2 524-7 #### AISHA Monzon ([id number]) [facility] ([facility]) [address] [place] [address] 01714 Platelets (Bld) [#/Vol] 141 x10*3/uL Low 150-450 [facility] Comment on above: Performed By: #### 2 524-7 #### AISHA Monzon ([id number]) [facility] ([facility]) [address] [place] [address] 82074 RBC (Bld) [#/Vol] 5.07 x10*6/uL Normal 4.50-5.90 [facility] Comment on above: Performed By: #### 2 524-7 #### AISHA Monzon ([id number]) [facility] ([facility]) [address] [place] [address]37 WBC (Bld) [#/Vol] 7.9 x10*3/uL Normal 4.4-11.3 [facility] Comment on above: Performed By: #### 2 524-7 #### AISHA Monzon ([id number]) [facility] ([facility]) [address] [place] [address] 74513 Coagulation tissue factor in ducedon 05-23-2023 PT Coag (PPP) [Time] 34.4 s High 9.8-12.8 [facility] Comment on above: Performed By: #### 2 524-7 #### AISHA Monzon ([id number]) [facility] ([facility]) [address] [place] [address] Electrophysiology studyon Images from the original result were not included. Technically and surgically uncomplicated generator change. OPERATIVE REPORT Patient: Terry Villalpando Medical Record: [id number] Date of : 1960 Date of Procedure: 05/22/2023 PROCEDURE Defibrillator Generator Change Report PRE-OPERATIVE DIAGNOSIS: Defibrillator Battery Depletion POST-OPERATIVE DIAGNOSIS: same ATTENDING Matias Driver MD EMERGENCY SPECIALIST Wiley Ramos MD HISTORY See H&P dated [...] available during the non-critical portions. [id number]_SECTRA_CAR DIOLAB_XPER [facility] Work Phone: Glucose Test strip manual (B ld) [Mass/Vol]on 05-23-2023 Glucose [Mass/Vol] 198 mg/dL High 74 - 99 mg/dL [facility] Interpretation and review of laboratory results Abnormal [facility] Glucose [Mass/Vol] 198 mg/dL High 74-99 [facility] Comment on above: Performed By: #### T SANDI #### ASIHA Monzon ([id number]) [facility] ([facility]) [address] [place] [address] 79859 Glucose [Mass/Vol] 174 mg/dL High 74 - 99 mg/dL [facility] Interpretation and review of laboratory results Abnormal [facility] Glucose [Mass/Vol] 174 mg/dL High 74-99 [facility] Comment on above: Performed By: #### T HYDS #### AISHA Monzon ([id number]) [facility] ([facility]) [address] [place] [address] 56510 Glucose [Mass/Vol] 259 mg/dL High 74 - 99 mg/dL [facility] Interpretation and review of laboratory results Abnormal [facility] Glucose [Mass/Vol] 259 mg/dL High 74-99 [facility] Comment on above: Performed By: #### T HYDS #### AISHA Monzon ([id number]) [facility] ([facility]) [address] [place] [address] 32824 Glucose [Mass/Vol] 173 mg/dL High 74 - 99 mg/dL [facility] Interpretation and review of laboratory results Abnormal [facility] Glucose [Mass/Vol] 173 mg/dL High 74-99 [facility] Comment on above: Performed By: #### 2 524-7 #### AISHA Monzon ([id number]) [facility] ([facility]) [address] [place] [address] 97020 LDH Lactate to pyruvate reac tion [Catalytic activity/Vol]on 05-23-2023 Interpretation and review of laboratory results Abnormal [facility] Lactate Dehydrogenaseon - LDH Lactate to pyruvate reaction [Catalytic activity/Vol] 553 U/L High 84 - 246 U/L [facility] Lactate dehydrogenaseon LDH Lactate to pyruvate reaction [Catalytic activity/Vol] 553 U/L High 84-246 [facility] Comment on above: Performed By: #### T HYDS #### AISHA Monzon ([id number]) [facility] ([facility]) [address] [place], [place] [address] Magnesiumon 05-23-2023 Magnesium [Mass/Vol] 2.44 mg/dL High 1.60 - 2.40 mg/dL [facility] Magnesium [Mass/Vol] 2.44 mg/dL High 1.60-2.40 [facility] Comment on above: Performed By: #### T HYDS #### AISHA Monzon ([id number]) [facility] ([facility]) [address] [place] [address] No Panel Informationon 05-23 Interpretation and review of laboratory results Abnormal [facility] PT Coag (PPP) [Time]on 05-23 INR Coag (PPP) [Relative time] 3.0 {INR} High 0.9 - 1.1 [facility] Interpretation and review of laboratory results Abnormal [facility] INR Coag (PPP) [Relative time] 3.0 High 0.9-1.1 [facility] Comment on above: Performed By: #### 2 524-7 #### AISHA Monzon ([id number]) [facility] ([facility]) [address] [place] [address] Protime-INRon 05-23-2023 PT Coag (PPP) [Time] 34.4 s High [facility] Renal function 2000 panelon 05-23-2023 Albumin BCP dye [Mass/Vol] 4.1 g/dL 3.4 - 5.0 g/dL [facility] Anion gap [Moles/Vol] 13 mmol/L 10 - 2 0 mmol/L [facility] Calcium [Mass/Vol] 9.6 mg/dL 8.6 - 10. 6 mg/dL [facility] Chloride [Moles/Vol] 97 mmol/L Low 98 - 10 7 mmol/L [facility] CO2 [Moles/Vol] 29 mmol/L 21 - 32 mmol/L [facility] Creatinine [Mass/Vol] 1.48 mg/dL High 0.50 - 1.30 mg/dL [facility] GFR/1.73 sq M.predicted among non-blacks MDRD (S/P/Bld) [Vol rate/Area] 53 mL/min/{1.73_m2} Low - PINF [facility] Comment on above: Calculations of erica mated GFR are performed using the 2020 CKD-EPI Study Refit equation without the race variable for the IDMS-Traceable creatinine methods. https://jasn.asnjournals.org/content//ASN.876872 4693 Glucose [Mass/Vol] 144 mg/dL High 74 - 99 mg/dL [facility] Phosphate [Mass/Vol] 3.5 mg/dL 2.5 - 4 .9 mg/dL [facility] Comment on above: The performance jean pierre acteristics of phosphorus testing in heparinized plasma have been validated by the individual laboratory site where testing is performed. Testing on heparinized plasma is not approved by the FDA; however, such approval is not necessary. Potassium [Moles/Vol] 4.9 mmol/L 3.5 - 5.3 mmol/L [facility] Sodium [Moles/Vol] 134 mmol/L Low 136 - 145 mmol/L [facility] Urea nitrogen [Mass/Vol] 31 mg/dL High 6 - 23 mg/dL [facility] Albumin BCP dye [Mass/Vol] 4.1 g/dL Normal 3.4-5.0 [facility] Comment on above: Performed By: #### T HYDS #### AISHA Monzon ([id number]) [facility] ([facility]) [address] [place] [address] 07299 Anion gap [Moles/Vol] 13 mmol/L Normal 10-20 [facility] Comment on above: Performed By: #### T HYDS #### AISHA Monzon ([id number]) [facility] ([facility]) [address] [place] [address] Calcium [Mass/Vol] 9.6 mg/dL Normal 8.6-10.6 [facility] Comment on above: Performed By: #### T HYDS #### AISHA Monzon ([id number]) [facility] ([facility]) [address] [place] [address] Chloride [Moles/Vol] 97 mmol/L Low 98-107 [facility] Comment on above: Performed By: #### T HYDS #### AISHA ALEX L ([id number]) [facility] ([facility]) [address] [place] [address] CO2 [Moles/Vol] 29 mmol/L Normal 21-32 [facility] Comment on above: Performed By: #### T HYDS #### AISHA ALEX L ([id number]) [facility] ([facility]) [address] [place] [address] 28191 Creatinine [Mass/Vol] 1.48 mg/dL High 0.50-1.30 [facility] Comment on above: Performed By: #### T HYDS #### AISHA ALEX L ([id number]) [facility] ([facility]) [address] [place] [address] 17995 Glomerular filtration rate/1.73 sq M.predicted 53 mL/min/1.73m*2 Low >60 [facility] Comment on above: Result Comment: Calc ulations of estimated GFR are performed using the 2020 CKD-EPI Study Refit equation without the race variable for the IDMS-Traceable creatinine methods. https://jasn.asnjournals.org/content//ASN.703528 1750 Performed By: #### T HYDS #### AISHA ALEX L ([id number]) [facility] ([facility]) [address] [place] [address] 81836 Glucose [Mass/Vol] 144 mg/dL High 74-99 [facility] Comment on above: Performed By: #### T HYDS #### AISHA ALEX L ([id number]) [facility] ([facility]) [address] [place] [address] 84050 Phosphate [Mass/Vol] 3.5 mg/dL Normal 2.5-4.9 [facility] Comment on above: Result Comment: The performance characteristics of phosphorus testing in heparinized plasma have been validated by the individual laboratory site where testing is performed. Testing on heparinized plasma is not approved by the FDA; however, such approval is not necessary. Performed By: #### T HYDS #### AISHA Monzon ([id number]) [facility] ([facility]) [address] [place] [address] Potassium [Moles/Vol] 4.9 mmol/L Normal 3.5-5.3 [facility] Comment on above: Performed By: #### T HYDS #### AISHA ORTIZTZER L ([id number]) [facility] ([facility]) [address] [place] [address] Sodium [Moles/Vol] 134 mmol/L Low 136-145 [facility] Comment on above: Performed By: #### T HYDS #### AISHA HOLLYMOJESSICA L ([id number]) [facility] ([facility]) [address] [place] [address] 63744 Urea nitrogen [Mass/Vol] 31 mg/dL High 6-23 [facility] Comment on above: Performed By: #### T HYDS #### AISHA ORTIZTZER L ([id number]) [facility] ([facility]) [address] [place] [address] 74447 XR CHEST 2 VIEWSon 4 XR CHEST 2 VIEWS Interpreted By: Torsten Hernandez and Ritchie Brandon STUDY: XR CHEST 2 VIEWS; 05/23/2023 8:15 am INDICATION: Signs/Symptoms:sp generator change. COMPARISON: Chest x-ray 05/22/2023 ACCESSION NUMBER(S): [id number] ORDERING CLINICIAN: WILEY RAMOS FINDINGS: PA and [...] Sha Carter. This study was interpreted at [place], [place]. MACRO: None Signed by: Torsten Hernandez 05/23/2023 12:49 PM Dictation workstation: [id number] [facility] XR Chest 2 Viewson 4 1. Cardiomegaly with satisfactory positioning of left chest wall AICD. 2. Low lung volume/bronchovascula r crowding. Similar trace left-sided pleural effusion with adjacent atelectasis. I personally reviewed the images/study and I agree with the findings as stated by resident Sha Carter. This study was interpreted at [place], [place]. MACRO: None Signed by: Torsten Hernandez 05/23/2023 12:49 PM Dictation workstation: [id number] [facility] Interpreted By: Torsten Hernandez and Ritchie Brandon STUDY: XR CHEST 2 VIEWS; 05/23/2023 8:15 am INDICATION: Signs/Symptoms:sp generator change. COMPARISON: Chest x-ray 05/22/2023 ACCESSION NUMBER(S): [id number] ORDERING CLINICIAN: WILEY RAMOS FINDINGS: PA and [...] change. COMPARISON: Chest x-ray 05/22/2023 ACCESSION NUMBER(S): [id number] ORDERING CLINICIAN: WILEY RAMOS FINDINGS: PA and [...] Sha Carter. This study was interpreted at [place], [place]. MACRO: None Signed by: Torsten Hernandez 05/23/2023 12:49 PM Dictation workstation: [id number] [facility] Work Phone: [facility] Work Phone: Radiology Study observation (narrative) [facility] Work Phone: XR Chest Single viewon 05-23 1. Satisfactory appearance following exchange of AICD generator. 2. Cardiomegaly again noted on chronic basis. 3. Low lung volumes with associated bronchovascular crowding. 4. Possible trace left-sided pleural effusion/atelectasis. I personally reviewed the images/study and I agree with the findings as stated by Resident Colin Ponce MD. This study was interpreted at [facility], [place], [place]. MACRO: NONE. Signed by: Torsten Hernandez 05/23/2023 9:01 AM Dictation workstation: [id number] [facility] Interpreted By: Torsten Hernandez and Dervishi Mario STUDY: XR CHEST 1 VIEW; 05/22/2023 6:22 pm INDICATION: Signs/Symptoms:sp generator change. COMPARISON: 05/19/2023 ACCESSION NUMBER(S): [id number] ORDERING CLINICIAN: WILEY RAMOS FINDINGS: AP radiograph [...] Signs/Symptoms:sp generator change. COMPARISON: 05/19/2023 ACCESSION NUMBER(S): [id number] ORDERING CLINICIAN: WILEY RAMOS FINDINGS: AP radiograph [...] Ponce MD. This study was interpreted at [place], [place]. MACRO: NONE. Signed by: Torsten Hernandez 05/23/2023 9:01 AM Dictation workstation: [id number] [facility] Work Phone: XR Chest Single viewOrdered By: Torsten Hernandez on 05-23-2023 [facility] Work Phone: Blood type and Indirect anti body screen panel (Bld)on 05-22-2023 ABO group Nom (Bld) A [facility] Blood group antibody screen Ql Negative [facility] D Ag Ql (Bld) Positive [facility] ABO group Nom (Bld) A Normal [facility] Comment on above: Performed By: #### 2 524-7 #### AISHA Monzon ([id number]) [facility] ([facility]) [address] [place] [address] Blood group antibody screen Ql Negative Normal [facility] Comment on above: Performed By: #### 2 524-7 #### AISHA Monzon ([id number]) [facility] ([facility]) [address] [place] [address] 65398 D Ag Ql (Bld) Positive Normal [facility] Comment on above: Performed By: #### 2 524-7 #### AISHA Monzon ([id number]) [facility] ([facility]) [address] [place] [address] 81861 CBC panel Auto (Bld)on 05-22 Erythrocyte distribution width (RBC) [Ratio] 14.8 % High 11.5 - 14.5 % [facility] Hematocrit (Bld) [Volume fraction] 45.5 % 41.0 - 52.0 % [facility] Hemoglobin (Bld) [Mass/Vol] 14.8 g/dL 13.5 - 17.5 g/dL [facility] Interpretation and review of laboratory results Abnormal [facility] MCH (RBC) [Entitic mass] 31.2 pg 26.0 - 34.0 pg [facility] MCHC (RBC) [Mass/Vol] 32.5 g/dL 32.0 - 36.0 g/dL [facility] MCV (RBC) [Entitic vol] 96 fL 80 - 100 fL [facility] Nucleated RBC/100 WBC (Bld) [Ratio] 0.0 % [facility] Platelets (Bld) [#/Vol] 130 10*3/uL Low [facility] RBC (Bld) [#/Vol] 4.74 10*6/uL [facility] WBC (Bld) [#/Vol] 6.0 10*3/uL [facility] Erythrocyte distribution width (RBC) [Ratio] 14.8 % High 11.5-14.5 [facility] Comment on above: Performed By: #### 2 524-7 #### AISHA Monzon ([id number]) [facility] ([facility]) [id number] [place] [address] 27502 Hematocrit (Bld) [Volume fraction] 45.5 % Normal 41.0-52.0 [facility] Comment on above: Performed By: #### 2 524-7 #### AISHA Monzon ([id number]) [facility] [facility]) [id number] [place] [address] 42635 Hemoglobin (Bld) [Mass/Vol] 14.8 g/dL Normal 13.5-17.5 [facility] Comment on above: Performed By: #### 2 524-7 #### AISHA Monzon ([id number]) [facility] ([facility]) [address] [place] [address] 69899 MCH (RBC) [Entitic mass] 31.2 pg Normal 26.0-34.0 [facility] Comment on above: Performed By: #### 2 524-7 #### AISHA Monzon ([id number]) [facility] ([facility]) [address] [place] [address] 93091 MCHC (RBC) [Mass/Vol] 32.5 g/dL Normal 32.0-36.0 [facility] Comment on above: Performed By: #### 2 524-7 #### AISHA Monzon ([id number]) [facility] ([facility]) [address] [place] [address] 35744 MCV (RBC) [Entitic vol] 96 fL Normal 80-100 [facility] Comment on above: Performed By: #### 2 524-7 #### AISHA Monzon ([id number]) [facility] ([facility]) [address] [place] [address] 12343 Nucleated RBC/100 WBC (Bld) [Ratio] 0.0 /100 WBCs Normal 0.0-0.0 [facility] Comment on above: Performed By: #### 2 524-7 #### AISHA Monzon ([id number]) [facility] ([facility]) [address] [place] [address] 00752 Platelets (Bld) [#/Vol] 130 x10*3/uL Low 150-450 [facility] Comment on above: Performed By: #### 2 524-7 #### AISHA Monzon ([id number]) [facility] ([facility]) [address] [place] [address] 17529 RBC (Bld) [#/Vol] 4.74 x10*6/uL Normal 4.50-5.90 [facility] Comment on above: Performed By: #### 2 524-7 #### AISHA Monzon ([id number]) [facility] ([facility]) [address] [place] [address] 91836 WBC (Bld) [#/Vol] 6.0 x10*3/uL Normal 4.4-11.3 [facility] Comment on above: Performed By: #### 2 524-7 #### AISHA Monzon ([id number]) [facility] ([facility]) [address] [place], [place] [address] Coagulation tissue factor in ducedon 05-22-2023 PT Coag (PPP) [Time] 27.3 s High 9.8-12.8 [facility] Comment on above: Performed By: #### 3 4529-8 #### AISHA Monzon ([id number]) [facility] ([facility]) [address] [place] [address] 22675 ECG 12-LEADon 05-22-2023 ECG 12-LEAD Ventricular Rate 81 Atrial Rate 53 QRS Duration 134 Q-T Interval 546 QTC Calculation(Bazett) 634 R Swanzey -89 T Swanzey 91 QRS Count 14 Q Onset 198 T Offset 471 QTC Fredericia 603 Diagnosis Ventricular-paced rhythm Left axis deviation Nonspecific intraventricular block Inferior infarct , age undetermined Anterolateral infarct , age undetermined Abnormal ECG When compared with ECG of 19-MAY-2023 17:21, Fusion complexes are now Present Premature ventricular complexes are now Present Confirmed by Matias Mclaughlin ([id number]) on 05/28/2023 3:37:09 PM Normal [facility] Glucose Test strip manual (B ld) [Mass/Vol]on 05-22-2023 Glucose [Mass/Vol] 291 mg/dL High 74 - 99 mg/dL [facility] Interpretation and review of laboratory results Abnormal [facility] Glucose [Mass/Vol] 291 mg/dL High 74-99 [facility] Comment on above: Performed By: #### 2 524-7 #### AISHA Monzon ([id number]) [facility] ([facility]) [address] [place] [address] 65860 Glucose [Mass/Vol] 179 mg/dL High 74 - 99 mg/dL [facility] Interpretation and review of laboratory results Abnormal [facility] Glucose [Mass/Vol] 179 mg/dL High 74-99 [facility] Comment on above: Performed By: #### 2 524-7 #### AISHA Monzon ([id number]) [facility] ([facility]) [address] [place] [address] 10790 Glucose [Mass/Vol] 205 mg/dL High 74 - 99 mg/dL [facility] Interpretation and review of laboratory results Abnormal [facility] Glucose [Mass/Vol] 205 mg/dL High 74-99 [facility] Comment on above: Performed By: #### 3 4529-8 #### AISHA Monzon ([id number]) [facility] ([facility]) [address] [place] [address] 64788 Lactate Dehydrogenaseon 04-24 LDH Lactate to pyruvate reaction [Catalytic activity/Vol] 531 U/L High 84 - 246 U/L [facility] Lactate dehydrogenaseon 04-24 LDH Lactate to pyruvate reaction [Catalytic activity/Vol] 531 U/L High 84-246 [facility] Comment on above: Performed By: #### 2 524-7 #### AISHA Monzon ([id number]) [facility] ([facility]) [address] [place] [address] 41471 Magnesiumon 05-22-2023 Magnesium [Mass/Vol] 2.15 mg/dL 1.60 - 2.40 mg/dL [facility] Magnesium [Mass/Vol] 2.15 mg/dL Normal 1.60-2.40 [facility] Comment on above: Performed By: #### 3 4529-8 #### AISHA Monzon ([id number]) [facility] ([facility]) [address] [place] [address] 20596 Magnesium [Mass/Vol]on 05-22 Interpretation and review of laboratory results Normal [facility] No Panel Informationon 05-22 Interpretation and review of laboratory results Abnormal [facility] PT Coag (PPP) [Time]on 05-22 INR Coag (PPP) [Relative time] 2.4 {INR} High 0.9 - 1.1 [facility] Interpretation and review of laboratory results Abnormal [facility] INR Coag (PPP) [Relative time] 2.4 High 0.9-1.1 [facility] Comment on above: Performed By: #### 3 4529-8 #### AISHA Monzon ([id number]) [facility] ([facility]) [address] [place] [address] Protime-INRon 05-22-2023 PT Coag (PPP) [Time] 27.3 s High [facility] Renal function 2000 panelon 05-22-2023 Albumin BCP dye [Mass/Vol] 3.8 g/dL 3.4 - 5.0 g/dL [facility] Anion gap [Moles/Vol] 15 mmol/L 10 - 2 0 mmol/L [facility] Calcium [Mass/Vol] 9.4 mg/dL 8.6 - 10. 6 mg/dL [facility] Chloride [Moles/Vol] 103 mmol/L 98 - 10 7 mmol/L [facility] CO2 [Moles/Vol] 25 mmol/L 21 - 32 mmol/L [facility] Creatinine [Mass/Vol] 1.32 mg/dL High 0.50 - 1.30 mg/dL [facility] GFR/1.73 sq M.predicted among non-blacks MDRD (S/P/Bld) [Vol rate/Area] 61 mL/min/{1.73_m2} - PINF [facility] Comment on above: Calculations of erica mated GFR are performed using the 2020 CKD-EPI Study Refit equation without the race variable for the IDMS-Traceable creatinine methods. https://jasn.asnjournals.org/content//ASN.927875 7274 Glucose [Mass/Vol] 165 mg/dL High 74 - 99 mg/dL [facility] Phosphate [Mass/Vol] 3.5 mg/dL 2.5 - 4 .9 mg/dL [facility] Comment on above: The performance jean pierre acteristics of phosphorus testing in heparinized plasma have been validated by the individual laboratory site where testing is performed. Testing on heparinized plasma is not approved by the FDA; however, such approval is not necessary. Potassium [Moles/Vol] 4.5 mmol/L 3.5 - 5.3 mmol/L [facility] Sodium [Moles/Vol] 138 mmol/L 136 - 145 mmol/L [facility] Urea nitrogen [Mass/Vol] 27 mg/dL High 6 - 23 mg/dL [facility] Albumin BCP dye [Mass/Vol] 3.8 g/dL Normal 3.4-5.0 [facility] Comment on above: Performed By: #### 2 524-7 #### AISHA Monzon ([id number]) [facility] ([facility]) [address] [place] [address] 55014 Anion gap [Moles/Vol] 15 mmol/L Normal 10-20 [facility] Comment on above: Performed By: #### 2 524-7 #### AISHA Monzon ([id number]) [facility] ([facility]) [address] [place] [address] 59116 Calcium [Mass/Vol] 9.4 mg/dL Normal 8.6-10.6 [facility] Comment on above: Performed By: #### 2 524-7 #### AISHA Monzon ([id number]) [facility] ([facility]) [address] [place] [address] 67057 Chloride [Moles/Vol] 103 mmol/L Normal 98-107 [facility] Comment on above: Performed By: #### 2 524-7 #### AISHA Monzon ([id number]) [facility] ([facility]) [id number] [place] [address] 94103 CO2 [Moles/Vol] 25 mmol/L Normal 21-32 [facility] Comment on above: Performed By: #### 2 524-7 #### AISHA Monzon ([id number]) [facility] ([facility]) [address] [place] [address] 88047 Creatinine [Mass/Vol] 1.32 mg/dL High 0.50-1.30 [facility] Comment on above: Performed By: #### 2 524-7 #### AISHA Monzon ([id number]) [facility] ([facility]) [address] [place] [address] Glomerular filtration rate/1.73 sq M.predicted 61 mL/min/1.73m*2 Normal >60 [facility] Comment on above: Result Comment: Calc ulations of estimated GFR are performed using the 2020 CKD-EPI Study Refit equation without the race variable for the IDMS-Traceable creatinine methods. https://jasn.asnjournals.org/content/early/ASN.044371 1494 Performed By: #### 2 524-7 #### AISHA Monzon ([id number]) [facility] ([facility]) [address] [place] [address] Glucose [Mass/Vol] 165 mg/dL High 74-99 [facility] Comment on above: Performed By: #### 2 524-7 #### AISHA Monzon ([id number]) [facility] ([facility]) [address] [place] [address] Phosphate [Mass/Vol] 3.5 mg/dL Normal 2.5-4.9 [facility] Comment on above: Result Comment: The performance characteristics of phosphorus testing in heparinized plasma have been validated by the individual laboratory site where testing is performed. Testing on heparinized plasma is not approved by the FDA; however, such approval is not necessary. Performed By: #### 2 524-7 #### AISHA Monzon ([id number]) [facility] ([facility]) [address] [place] [address] Potassium [Moles/Vol] 4.5 mmol/L Normal 3.5-5.3 [facility] Comment on above: Performed By: #### 2 524-7 #### AISHA Monzon ([id number]) [facility] ([facility]) [address] [place] [address] Sodium [Moles/Vol] 138 mmol/L Normal 136-145 [facility] Comment on above: Performed By: #### 2 524-7 #### AISHA Monzon ([id number]) [facility] ([facility]) [address] [place] [address] Urea nitrogen [Mass/Vol] 27 mg/dL High 6-23 [facility] Comment on above: Performed By: #### 2 524-7 #### AISHA Monzon ([id number]) [facility] ([facility]) [address] [place] [address] XR CHEST 1 VIEWon 05-22-2023 XR CHEST 1 VIEW Interpreted By: Torsten Hernandez and Dervishi Mario STUDY: XR CHEST 1 VIEW; 05/22/2023 6:22 pm INDICATION: Signs/Symptoms:sp generator change. COMPARISON: 05/19/2023 ACCESSION NUMBER(S): [id number] ORDERING CLINICIAN: WILEY RAMOS FINDINGS: AP radiograph [...] Ponce MD. This study was interpreted at [facility], [place], [place]. MACRO: NONE. Signed by: Torsten Hernandez 05/23/2023 9:01 AM Dictation workstation: [id number] Normal [facility] XR Chest Single viewon 05-22 Radiology Study observation (narrative) [facility] Work Phone: Basic metabolic 2000 panelon 05-21-2023 Anion gap [Moles/Vol] 24 mmol/L High 10 - 2 0 mmol/L [facility] Calcium [Mass/Vol] 9.7 mg/dL 8.6 - 10. 6 mg/dL [facility] Chloride [Moles/Vol] 104 mmol/L 98 - 10 7 mmol/L [facility] CO2 [Moles/Vol] 16 mmol/L Low 21 - 32 mmol/L [facility] Creatinine [Mass/Vol] 1.24 mg/dL 0.50 - 1.30 mg/dL [facility] GFR/1.73 sq M.predicted among non-blacks MDRD (S/P/Bld) [Vol rate/Area] 66 mL/min/{1.73_m2} - PINF [facility] Comment on above: Calculations of erica mated GFR are performed using the 2020 CKD-EPI Study Refit equation without the race variable for the IDMS-Traceable creatinine methods. https://jasn.asnjournals.org/content//ASN.819540 1621 Glucose [Mass/Vol] 349 mg/dL High 74 - 99 mg/dL [facility] Interpretation and review of laboratory results Abnormal [facility] Potassium [Moles/Vol] 4.8 mmol/L 3.5 - 5.3 mmol/L [facility] Sodium [Moles/Vol] 139 mmol/L 136 - 145 mmol/L [facility] Urea nitrogen [Mass/Vol] 22 mg/dL 6 - 23 mg/dL [facility] CBC panel Auto (Bld)on 05-21 Erythrocyte distribution width (RBC) [Ratio] 14.8 % High 11.5 - 14.5 % [facility] Hematocrit (Bld) [Volume fraction] 40.8 % Low 41.0 - 52.0 % [facility] Hemoglobin (Bld) [Mass/Vol] 14.0 g/dL 13.5 - 17.5 g/dL [facility] Interpretation and review of laboratory results Abnormal [facility] MCH (RBC) [Entitic mass] 31.5 pg 26.0 - 34.0 pg [facility] MCHC (RBC) [Mass/Vol] 34.3 g/dL 32.0 - 36.0 g/dL [facility] MCV (RBC) [Entitic vol] 92 fL 80 - 100 fL [facility] Nucleated RBC/100 WBC (Bld) [Ratio] 0.0 % [facility] Platelets (Bld) [#/Vol] 156 10*3/uL [facility] RBC (Bld) [#/Vol] 4.45 10*6/uL Low [facility] WBC (Bld) [#/Vol] 6.1 10*3/uL [facility] Erythrocyte distribution width (RBC) [Ratio] 14.8 % High 11.5-14.5 [facility] Comment on above: Performed By: #### 1 994-3 #### AISHA Monzon ([id number]) [facility] ([facility]) [address] [place] [address] 15744 Hematocrit (Bld) [Volume fraction] 40.8 % Low 41.0-52.0 [facility] Comment on above: Performed By: #### 1 994-3 #### AISHA Monzon ([id number]) [facility] ([facility]) [address] [place] [address] 54268 Hemoglobin (Bld) [Mass/Vol] 14.0 g/dL Normal 13.5-17.5 [facility] Comment on above: Performed By: #### 1 994-3 #### AISHA Monzon ([id number]) [facility] ([facility]) [address] [place] [address] 95958 MCH (RBC) [Entitic mass] 31.5 pg Normal 26.0-34.0 [facility] Comment on above: Performed By: #### 1 994-3 #### AISHA Monzon ([id number]) [facility] ([facility]) [address] [place] [address] 35909 MCHC (RBC) [Mass/Vol] 34.3 g/dL Normal 32.0-36.0 [facility] Comment on above: Performed By: #### 1 994-3 #### AISHA Monzon ([id number]) [facility] ([facility]) [address] [place] [address] MCV (RBC) [Entitic vol] 92 fL Normal 80-100 [facility] Comment on above: Performed By: #### 1 994-3 #### AISHA Monzon ([id number]) [facility] ([facility]) [address] [place] [address] Nucleated RBC/100 WBC (Bld) [Ratio] 0.0 /100 WBCs Normal 0.0-0.0 [facility] Comment on above: Performed By: #### 1 994-3 #### AISHA Monzon ([id number]) [facility] ([facility]) [id number] [place] [address] 57975 Platelets (Bld) [#/Vol] 156 x10*3/uL Normal 150-450 [facility] Comment on above: Performed By: #### 1 994-3 #### AISHA Monzon ([id number]) [facility] ([facility]) [address] [place] [address] 02332 RBC (Bld) [#/Vol] 4.45 x10*6/uL Low 4.50-5.90 [facility] Comment on above: Performed By: #### 1 994-3 #### AISHA Monzon ([id number]) [facility] ([facility]) [address] [place] [address] WBC (Bld) [#/Vol] 6.1 x10*3/uL Normal 4.4-11.3 [facility] Comment on above: Performed By: #### 1 994-3 #### AISHA Monzon ([id number]) [facility] ([facility]) [address] [place] [address] 69620 Coagulation tissue factor in ducedon 05-21-2023 PT Coag (PPP) [Time] 30.5 s High 9.8-12.8 [facility] Comment on above: Performed By: #### 1 994-3 #### AISHA Monzon ([id number]) [facility] ([facility]) [address] [place] [address] 71181 Glucose Test strip manual (B ld) [Mass/Vol]on 05-21-2023 Glucose [Mass/Vol] 297 mg/dL High 74 - 99 mg/dL [facility] Interpretation and review of laboratory results Abnormal [facility] Glucose [Mass/Vol] 297 mg/dL High 74-99 [facility] Comment on above: Performed By: #### 3 4529-8 #### AISHA Monzon ([id number]) [facility] ([facility]) [address] [place] [address] 32842 Glucose [Mass/Vol] 106 mg/dL High 74 - 99 mg/dL [facility] Interpretation and review of laboratory results Abnormal [facility] Glucose [Mass/Vol] 106 mg/dL High 74-99 [facility] Comment on above: Performed By: #### 3 4529-8 #### AISHA Monzon ([id number]) [facility] ([facility]) [address] [place] [address] 69016 Glucose [Mass/Vol] 151 mg/dL High 74 - 99 mg/dL [facility] Interpretation and review of laboratory results Abnormal [facility] Glucose [Mass/Vol] 151 mg/dL High 74-99 [facility] Comment on above: Performed By: #### 3 4529-8 #### AISHA Monzon ([id number]) [facility] ([facility]) [address] [place] [address] 91439 Glucose [Mass/Vol] 129 mg/dL High 74 - 99 mg/dL [facility] Interpretation and review of laboratory results Abnormal [facility] Glucose [Mass/Vol] 129 mg/dL High 74-99 [facility] Comment on above: Performed By: #### 3 4529-8 #### AISHA Monzon ([id number]) [facility] ([facility]) [address] [place] [address] 73733 LDH Lactate to pyruvate reac tion [Catalytic activity/Vol]on 05-21-2023 Interpretation and review of laboratory results Abnormal [facility] Interpretation and review of laboratory results Abnormal [facility] Lactate Dehydrogenaseon 04-24 LDH Lactate to pyruvate reaction [Catalytic activity/Vol] 601 U/L High 84 - 246 U/L [facility] Comment on above: MILD HEMOLYSIS DETEC SAMUEL. The result may be falsely elevated due to hemolysis or other interferents. Clinical correlation is recommended. Repeat testing may be considered. LDH Lactate to pyruvate reaction [Catalytic activity/Vol] 570 U/L High 84 - 246 U/L [facility] Comment on above: MILD HEMOLYSIS DETEC SAMUEL. The result may be falsely elevated due to hemolysis or other interferents. Clinical correlation is recommended. Repeat testing may be considered. Lactate dehydrogenaseon 04-24 LDH Lactate to pyruvate reaction [Catalytic activity/Vol] 601 U/L High 84-246 [facility] Comment on above: Result Comment: MILD HEMOLYSIS DETECTED. The result may be falsely elevated due to hemolysis or other interferents. Clinical correlation is recommended. Repeat testing may be considered. Performed By: #### 3 4529-8 #### AISHA Monzon ([id number]) [facility] ([facility]) [address] [place], [place] [address] LDH Lactate to pyruvate reaction [Catalytic activity/Vol] 570 U/L High 84-246 [facility] Comment on above: Result Comment: MILD HEMOLYSIS DETECTED. The result may be falsely elevated due to hemolysis or other interferents. Clinical correlation is recommended. Repeat testing may be considered. Performed By: #### 1 994-3 #### AISHA Monzon (52005) [facility] ([facility]) [address] [place] [address] 40514 Magnesiumon 05-21-2023 Magnesium [Mass/Vol] 2.05 mg/dL 1.60 - 2.40 mg/dL [facility] Magnesium [Mass/Vol] 2.05 mg/dL Normal 1.60-2.40 [facility] Comment on above: Performed By: #### 1 994-3 #### AISHA Monzon ([id number]) [facility] ([facility]) [address] [place] [address] 83828 Magnesium [Mass/Vol]on 05-21 Interpretation and review of laboratory results Normal [facility] Natriuretic peptide B [Mass/ Vol]on 05-21-2023 Interpretation and review of laboratory results Abnormal [facility] Natriuretic peptide B (Bld) [Mass/Vol] 262 pg/mL High 0 - 99 pg/mL [facility] <100 pg/mL - Heart failure unlikely [...] contact their local laboratory for further information. [facility] No Panel Informationon 05-21 [facility] PT Coag (PPP) [Time]on 05-21 INR Coag (PPP) [Relative time] 2.7 {INR} High 0.9 - 1.1 [facility] Interpretation and review of laboratory results Abnormal [facility] INR Coag (PPP) [Relative time] 2.7 High 0.9-1.1 [facility] Comment on above: Performed By: #### 1 994-3 #### AISHA Monzon ([id number]) [facility] ([facility]) [address] [place] [address] 57895 Protime-INRon 05-21-2023 PT Coag (PPP) [Time] 30.5 s High [facility] Renal function 2000 panelon 05-21-2023 Albumin BCP dye [Mass/Vol] 3.5 g/dL 3.4 - 5.0 g/dL [facility] Anion gap [Moles/Vol] 12 mmol/L 10 - 2 0 mmol/L [facility] Calcium [Mass/Vol] 8.7 mg/dL 8.6 - 10. 6 mg/dL [facility] Chloride [Moles/Vol] 105 mmol/L 98 - 10 7 mmol/L [facility] CO2 [Moles/Vol] 25 mmol/L 21 - 32 mmol/L [facility] Creatinine [Mass/Vol] 0.98 mg/dL 0.50 - 1.30 mg/dL [facility] GFR/1.73 sq M.predicted among non-blacks MDRD (S/P/Bld) [Vol rate/Area] 88 mL/min/{1.73_m2} - PINF [facility] Comment on above: Calculations of erica mated GFR are performed using the 2020 CKD-EPI Study Refit equation without the race variable for the IDMS-Traceable creatinine methods. https://jasn.asnjournals.org/content/early//ASN.872890 6988 Glucose [Mass/Vol] 133 mg/dL High 74 - 99 mg/dL [facility] Interpretation and review of laboratory results Abnormal [facility] Phosphate [Mass/Vol] 3.2 mg/dL 2.5 - 4 .9 mg/dL [facility] Comment on above: MILD HEMOLYSIS DETEC [...] [Moles/Vol] 4.9 mmol/L 3.5 - 5.3 mmol/L [facility] Comment on above: MILD HEMOLYSIS DETEC SAMUEL. The result may be falsely elevated due to hemolysis or other interferents. Clinical correlation is recommended. Repeat testing may be considered. Sodium [Moles/Vol] 137 mmol/L 136 - 145 mmol/L [facility] Urea nitrogen [Mass/Vol] 22 mg/dL 6 - 23 mg/dL [facility] Albumin BCP dye [Mass/Vol] 3.5 g/dL Normal 3.4-5.0 [facility] Comment on above: Performed By: #### 3 4529-8 #### AISHA ALEX L ([id number]) [facility] ([facility]) [address] [place] [address] Anion gap [Moles/Vol] 12 mmol/L Normal 10-20 [facility] Comment on above: Performed By: #### 3 4529-8 #### AISHA ALEX L ([id number]) [facility] ([facility]) [address] [place] [address] Calcium [Mass/Vol] 8.7 mg/dL Normal 8.6-10.6 [facility] Comment on above: Performed By: #### 3 4529-8 #### AISHA ALEX L ([id number]) [facility] ([facility]) [address] [place] [address] 27430 Chloride [Moles/Vol] 105 mmol/L Normal 98-107 [facility] Comment on above: Performed By: #### 3 4529-8 #### AISHA ALEX L ([id number]) [facility] ([facility]) [address] [place] [address] CO2 [Moles/Vol] 25 mmol/L Normal 21-32 [facility] Comment on above: Performed By: #### 3 4529-8 #### AISHA HOLLYMOTZER L ([id number]) [facility] ([facility]) [address] [place] [address] Creatinine [Mass/Vol] 0.98 mg/dL Normal 0.50-1.30 [facility] Comment on above: Performed By: #### 3 4529-8 #### AISHA ORTIZTZER L ([id number]) [facility] ([facility]) [address] [place] [address] Glomerular filtration rate/1.73 sq M.predicted 88 mL/min/1.73m*2 Normal >60 [facility] Comment on above: Result Comment: Calc ulations of estimated GFR are performed using the 2020 CKD-EPI Study Refit equation without the race variable for the IDMS-Traceable creatinine methods. https://jasn.asnjournals.org/content/early//ASN.324712 8758 Performed By: #### 3 4529-8 #### AISHA Monzon ([id number]) [facility] ([facility]) [address] [place] [address] Glucose [Mass/Vol] 133 mg/dL High 74-99 [facility] Comment on above: Performed By: #### 3 4529-8 #### AISHA Monzon ([id number]) [facility] ([facility]) [address] [place] [address] Phosphate [Mass/Vol] 3.2 mg/dL Normal 2.5-4.9 [facility] Comment on above: Result Comment: [...] #### 3 4529-8 #### AISHA ALEX L ([id number]) [facility] ([facility]) [address] [place] [address] Potassium [Moles/Vol] 4.9 mmol/L Normal 3.5-5.3 [facility] Comment on above: Result Comment: MILD HEMOLYSIS DETECTED. The result may be falsely elevated due to hemolysis or other interferents. Clinical correlation is recommended. Repeat testing may be considered. Performed By: #### 3 4529-8 #### AISHA ALEX L ([id number]) [facility] ([facility]) [address] [place] [address] Sodium [Moles/Vol] 137 mmol/L Normal 136-145 [facility] Comment on above: Performed By: #### 3 4529-8 #### AISHA ALEX L ([id number]) [facility] ([facility]) [address] [place] [address] Urea nitrogen [Mass/Vol] 22 mg/dL Normal 6-23 [facility] Comment on above: Performed By: #### 3 4529-8 #### AISHA Monzon ([id number]) [facility] ([facility]) [address] [place] [address] Albumin BCP dye [Mass/Vol] 3.4 g/dL 3.4 - 5.0 g/dL [facility] Anion gap [Moles/Vol] 14 mmol/L 10 - 2 0 mmol/L [facility] Calcium [Mass/Vol] 8.7 mg/dL 8.6 - 10. 6 mg/dL [facility] Chloride [Moles/Vol] 105 mmol/L 98 - 10 7 mmol/L [facility] CO2 [Moles/Vol] 22 mmol/L 21 - 32 mmol/L [facility] Creatinine [Mass/Vol] 1.01 mg/dL 0.50 - 1.30 mg/dL [facility] GFR/1.73 sq M.predicted among non-blacks MDRD (S/P/Bld) [Vol rate/Area] 85 mL/min/{1.73_m2} - PINF [facility] Comment on above: Calculations of erica mated GFR are performed using the 2020 CKD-EPI Study Refit equation without the race variable for the IDMS-Traceable creatinine methods. https://jasn.asnjournals.org/content/early//ASN.422648 2450 Glucose [Mass/Vol] 145 mg/dL High 74 - 99 mg/dL [facility] Interpretation and review of laboratory results Abnormal [facility] Phosphate [Mass/Vol] 3.2 mg/dL 2.5 - 4 .9 mg/dL [facility] Comment on above: MILD HEMOLYSIS DETEC [...] [Moles/Vol] 4.8 mmol/L 3.5 - 5.3 mmol/L [facility] Comment on above: MILD HEMOLYSIS DETEC SAMUEL. The result may be falsely elevated due to hemolysis or other interferents. Clinical correlation is recommended. Repeat testing may be considered. Sodium [Moles/Vol] 136 mmol/L 136 - 145 mmol/L [facility] Urea nitrogen [Mass/Vol] 23 mg/dL 6 - 23 mg/dL [facility] Albumin BCP dye [Mass/Vol] 3.4 g/dL Normal 3.4-5.0 [facility] Comment on above: Performed By: #### 1 994-3 #### AISHA Monzon ([id number]) [facility] ([facility]) [address] [place] [address]85 Anion gap [Moles/Vol] 14 mmol/L Normal 10-20 [facility] Comment on above: Performed By: #### 1 994-3 #### AISHA ALEX L ([id number]) [facility] ([facility]) [address] [place] [address] Calcium [Mass/Vol] 8.7 mg/dL Normal 8.6-10.6 [facility] Comment on above: Performed By: #### 1 994-3 #### AISHA ORTIZTZRAFFAELE L ([id number]) [facility] ([facility]) [address] [place] [address] Chloride [Moles/Vol] 105 mmol/L Normal 98-107 [facility] Comment on above: Performed By: #### 1 994-3 #### AISHA HOLLYMOTZER L ([id number]) [facility] ([facility]) [address] [place] [address] CO2 [Moles/Vol] 22 mmol/L Normal 21-32 [facility] Comment on above: Performed By: #### 1 994-3 #### AISHA HOLLYMOTZER L ([id number]) [facility] ([facility]) [address] [place] [address] Creatinine [Mass/Vol] 1.01 mg/dL Normal 0.50-1.30 [facility] Comment on above: Performed By: #### 1 994-3 #### AISHA Monzon ([id number]) [facility] ([facility]) [address] [place] [address] Glomerular filtration rate/1.73 sq M.predicted 85 mL/min/1.73m*2 Normal >60 [facility] Comment on above: Result Comment: Calc ulations of estimated GFR are performed using the 2020 CKD-EPI Study Refit equation without the race variable for the IDMS-Traceable creatinine methods. https://jasn.asnjournals.org/content/early//ASN.334904 9231 Performed By: #### 1 994-3 #### AISHA Monzon ([id number]) [facility] ([facility]) [address] [place] [address]683 Glucose [Mass/Vol] 145 mg/dL High 74-99 [facility] Comment on above: Performed By: #### 1 994-3 #### AISHA ALEX L ([id number]) [facility] ([facility]) [address] [place] [address] Phosphate [Mass/Vol] 3.2 mg/dL Normal 2.5-4.9 [facility] Comment on above: Result Comment: [...] #### 1 994-3 #### AISHA ALEX L ([id number]) [facility] ([facility]) [address] [place] [address] Potassium [Moles/Vol] 4.8 mmol/L Normal 3.5-5.3 [facility] Comment on above: Result Comment: MILD HEMOLYSIS DETECTED. The result may be falsely elevated due to hemolysis or other interferents. Clinical correlation is recommended. Repeat testing may be considered. Performed By: #### 1 994-3 #### AISHA Monzon ([id number]) [facility] ([facility]) [address] [place] [address] Sodium [Moles/Vol] 136 mmol/L Normal 136-145 [facility] Comment on above: Performed By: #### 1 994-3 #### AISHA ALEX L ([id number]) [facility] ([facility]) [address] [place] [address] Urea nitrogen [Mass/Vol] 23 mg/dL Normal 6-23 [facility] Comment on above: Performed By: #### 1 994-3 #### AISHA Monzon ([id number]) [facility] ([facility]) [address] [place] [address] CBC panel Auto (Bld)on 05-20 Erythrocyte distribution width (RBC) [Ratio] 14.9 % High 11.5 - 14.5 % [facility] Hematocrit (Bld) [Volume fraction] 41.9 % 41.0 - 52.0 % [facility] Hemoglobin (Bld) [Mass/Vol] 14.2 g/dL 13.5 - 17.5 g/dL [facility] Interpretation and review of laboratory results Abnormal [facility] MCH (RBC) [Entitic mass] 30.8 pg 26.0 - 34.0 pg [facility] MCHC (RBC) [Mass/Vol] 33.9 g/dL 32.0 - 36.0 g/dL [facility] MCV (RBC) [Entitic vol] 91 fL 80 - 100 fL [facility] Nucleated RBC/100 WBC (Bld) [Ratio] 0.0 % [facility] Platelets (Bld) [#/Vol] 119 10*3/uL Low [facility] RBC (Bld) [#/Vol] 4.61 10*6/uL [facility] WBC (Bld) [#/Vol] 6.3 10*3/uL [facility] Erythrocyte distribution width (RBC) [Ratio] 14.9 % High 11.5-14.5 [facility] Comment on above: Performed By: #### 5 8410-2 #### AISHA Monzon ([id number]) [facility] ([facility]) [address] [place] [address] Hematocrit (Bld) [Volume fraction] 41.9 % Normal 41.0-52.0 [facility] Comment on above: Performed By: #### 5 8410-2 #### AISHA Monzon ([id number]) [facility] ([facility]) [address] [place] [address] 12053 Hemoglobin (Bld) [Mass/Vol] 14.2 g/dL Normal 13.5-17.5 [facility] Comment on above: Performed By: #### 5 8410-2 #### AISHA Monzon ([id number]) [facility] ([facility]) [address] [place] [address] 43139 MCH (RBC) [Entitic mass] 30.8 pg Normal 26.0-34.0 [facility] Comment on above: Performed By: #### 5 8410-2 #### AISHA Monzon ([id number]) [facility] ([facility]) [address] [place] [address] 92483 MCHC (RBC) [Mass/Vol] 33.9 g/dL Normal 32.0-36.0 [facility] Comment on above: Performed By: #### 5 8410-2 #### AISHA Monzon ([id number]) [facility] ([facility]) [address] [place] [address] 84378 MCV (RBC) [Entitic vol] 91 fL Normal 80-100 [facility] Comment on above: Performed By: #### 5 8410-2 #### AISHA Monzon (08830) [facility] ([facility]) [address] [place] [address] 38285 Nucleated RBC/100 WBC (Bld) [Ratio] 0.0 /100 WBCs Normal 0.0-0.0 [facility] Comment on above: Performed By: #### 5 8410-2 #### AISHA Monzon ([id number]) [facility] ([facility]) [address] [place] [address] Platelets (Bld) [#/Vol] 119 x10*3/uL Low 150-450 [facility] Comment on above: Performed By: #### 5 8410-2 #### AISHA Monzon ([id number]) [facility] ([facility]) [address] [place] [address] 96645 RBC (Bld) [#/Vol] 4.61 x10*6/uL Normal 4.50-5.90 [facility] Comment on above: Performed By: #### 5 8410-2 #### AISHA Monzon ([id number]) [facility] ([facility]) [address] [place] [address] 11110 WBC (Bld) [#/Vol] 6.3 x10*3/uL Normal 4.4-11.3 [facility] Comment on above: Performed By: #### 5 8410-2 #### AISHA Monzon ([id number]) [facility] ([facility]) [address] [place] [address]3236 Cardiac device check - Inpat ientOrdered By: Matias Driver on 05-20-2023 [facility] Work Phone: Cardiac device check - Inpat ienton 05-20-2023 Radiology Study observation (narrative) [facility] Work Phone: Coagulation tissue factor in ducedon 05-20-2023 PT Coag (PPP) [Time] 28.5 s High 9.8-12.8 [facility] Comment on above: Performed By: #### 5 8410-2 #### AISHA Monozn (48961) [facility] ([facility]) [address] [place] [address] 25300 Glucose Test strip manual (B ld) [Mass/Vol]on 05-20-2023 Glucose [Mass/Vol] 185 mg/dL High 74 - 99 mg/dL [facility] Interpretation and review of laboratory results Abnormal [facility] Glucose [Mass/Vol] 185 mg/dL High 74-99 [facility] Comment on above: Performed By: #### 1 994-3 #### AISHA Monzon (96984) [facility] ([facility]) [address] [place] [address] 98207 Glucose [Mass/Vol] 133 mg/dL High 74 - 99 mg/dL [facility] Interpretation and review of laboratory results Abnormal [facility] Glucose [Mass/Vol] 133 mg/dL High 74-99 [facility] Comment on above: Performed By: #### 1 994-3 #### AISHA Monzon (25500) [facility] ([facility]) [address] [place] [address] 20642 Glucose [Mass/Vol] 202 mg/dL High 74 - 99 mg/dL [facility] Interpretation and review of laboratory results Abnormal [facility] Glucose [Mass/Vol] 202 mg/dL High 74-99 [facility] Comment on above: Performed By: #### 1 994-3 #### AISHA Monzon ([id number]) [facility] ([facility]) [address] [place] [address] 91248 Glucose [Mass/Vol] 187 mg/dL High 74 - 99 mg/dL [facility] Interpretation and review of laboratory results Abnormal [facility] Glucose [Mass/Vol] 187 mg/dL High 74-99 [facility] Comment on above: Performed By: #### 5 8410-2 #### AISHA Monzon ([id number]) [facility] ([facility]) [address] [place] [address] 97906 LDH Lactate to pyruvate reac tion [Catalytic activity/Vol]on 05-20-2023 Interpretation and review of laboratory results Abnormal [facility] Lactate Dehydrogenaseon 04-23 LDH Lactate to pyruvate reaction [Catalytic activity/Vol] 429 U/L High 84 - 246 U/L [facility] Lactate dehydrogenaseon 04-23 LDH Lactate to pyruvate reaction [Catalytic activity/Vol] 429 U/L High 84-246 [facility] Comment on above: Performed By: #### 5 8410-2 #### AISHA Monzon ([id number]) [facility] ([facility]) [address] [place] [address] 78634 Magnesiumon 05-20-2023 Magnesium [Mass/Vol] 2.23 mg/dL 1.60 - 2.40 mg/dL [facility] Magnesium [Mass/Vol] 2.23 mg/dL Normal 1.60-2.40 [facility] Comment on above: Performed By: #### 5 8410-2 #### AISHA Monzon (56334) [facility] ([facility]) [address] [place] [address] 48804 Magnesium [Mass/Vol]on 05-20 Interpretation and review of laboratory results Normal [facility] Natriuretic peptide B [Mass/ Vol]on 05-20-2023 Natriuretic peptide B (Bld) [Mass/Vol] 262 pg/mL High 0-99 [facility] Comment on above: Order Comment: <100 pg/mL - Heart failure vqnofnnx167-001 pg/mL - Intermediate probability of acute heart [...] By: #### 1 994-3 #### AISHA Monzon ([id number]) [facility] ([facility]) [address] [place] [address] 73668 No Panel Informationon 05-20 [facility] PT Coag (PPP) [Time]on 05-20 INR Coag (PPP) [Relative time] 2.5 {INR} High 0.9 - 1.1 [facility] Interpretation and review of laboratory results Abnormal [facility] INR Coag (PPP) [Relative time] 2.5 High 0.9-1.1 [facility] Comment on above: Performed By: #### 5 8410-2 #### AISHA Monzon ([id number]) [facility] ([facility]) [address] [place] [address] Protime-INRon 05-20-2023 PT Coag (PPP) [Time] 28.5 s High [facility] Renal function 2000 panelon 05-20-2023 Albumin BCP dye [Mass/Vol] 3.5 g/dL 3.4 - 5.0 g/dL [facility] Anion gap [Moles/Vol] 13 mmol/L 10 - 2 0 mmol/L [facility] Calcium [Mass/Vol] 9.3 mg/dL 8.6 - 10. 6 mg/dL [facility] Chloride [Moles/Vol] 104 mmol/L 98 - 10 7 mmol/L [facility] CO2 [Moles/Vol] 22 mmol/L 21 - 32 mmol/L [facility] Creatinine [Mass/Vol] 0.99 mg/dL 0.50 - 1.30 mg/dL [facility] GFR/1.73 sq M.predicted among non-blacks MDRD (S/P/Bld) [Vol rate/Area] 87 mL/min/{1.73_m2} - PINF [facility] Comment on above: Calculations of erica mated GFR are performed using the 2020 CKD-EPI Study Refit equation without the race variable for the IDMS-Traceable creatinine methods. https://jasn.asnjournals.org/content/early//ASN.645057 9361 Glucose [Mass/Vol] 157 mg/dL High 74 - 99 mg/dL [facility] Interpretation and review of laboratory results Abnormal [facility] Phosphate [Mass/Vol] 3.6 mg/dL 2.5 - 4 .9 mg/dL [facility] Comment on above: The performance jean pierre acteristics of phosphorus testing in heparinized plasma have been validated by the individual laboratory site where testing is performed. Testing on heparinized plasma is not approved by the FDA; however, such approval is not necessary. Potassium [Moles/Vol] 3.8 mmol/L 3.5 - 5.3 mmol/L [facility] Sodium [Moles/Vol] 135 mmol/L Low 136 - 145 mmol/L [facility] Urea nitrogen [Mass/Vol] 21 mg/dL 6 - 23 mg/dL [facility] Albumin BCP dye [Mass/Vol] 3.5 g/dL Normal 3.4-5.0 [facility] Comment on above: Performed By: #### 5 8410-2 #### AISHA Monzon ([id number]) [facility] ([facility]) [address] [place] [address] 12972 Anion gap [Moles/Vol] 13 mmol/L Normal 10-20 [facility] Comment on above: Performed By: #### 5 8410-2 #### AISHA Monzon ([id number]) [facility] ([facility]) [address] [place] [address] 72028 Calcium [Mass/Vol] 9.3 mg/dL Normal 8.6-10.6 [facility] Comment on above: Performed By: #### 5 8410-2 #### AISHA Monzon ([id number]) [facility] ([facility]) [address] [place] [address] 92384 Chloride [Moles/Vol] 104 mmol/L Normal 98-107 [facility] Comment on above: Performed By: #### 5 8410-2 #### AISHA Monzon (19919) [facility] ([facility]) [address] [place] [address] 85856 CO2 [Moles/Vol] 22 mmol/L Normal 21-32 [facility] Comment on above: Performed By: #### 5 8410-2 #### AISHA Monzon ([id number]) [facility] ([facility]) [address] [place] [address] 31787 Creatinine [Mass/Vol] 0.99 mg/dL Normal 0.50-1.30 [facility] Comment on above: Performed By: #### 5 8410-2 #### AISHA Monzon (67413) [facility] ([facility]) [address] [place] [address] Glomerular filtration rate/1.73 sq M.predicted 87 mL/min/1.73m*2 Normal >60 [facility] Comment on above: Result Comment: Calc ulations of estimated GFR are performed using the 2020 CKD-EPI Study Refit equation without the race variable for the IDMS-Traceable creatinine methods. https://jasn.asnjournals.org/content/early//ASN.061115 8269 Performed By: #### 5 8410-2 #### AISHA Monzon (24581) [facility] ([facility]) [address] [place] [address] Glucose [Mass/Vol] 157 mg/dL High 74-99 [facility] Comment on above: Performed By: #### 5 8410-2 #### AISHA Monzon (84458) [facility] ([facility]) [address] [place] [address] Phosphate [Mass/Vol] 3.6 mg/dL Normal 2.5-4.9 [facility] Comment on above: Result Comment: The performance characteristics of phosphorus testing in heparinized plasma have been validated by the individual laboratory site where testing is performed. Testing on heparinized plasma is not approved by the FDA; however, such approval is not necessary. Performed By: #### 5 8410-2 #### AISHA Monzon (48116) [facility] ([facility]) [address] [place] [address] Potassium [Moles/Vol] 3.8 mmol/L Normal 3.5-5.3 [facility] Comment on above: Performed By: #### 5 8410-2 #### AISHA Monzon ([id number]) [facility] ([facility]) [address] [place] [address] Sodium [Moles/Vol] 135 mmol/L Low 136-145 [facility] Comment on above: Performed By: #### 5 8410-2 #### AISHA Monzon ([id number]) [facility] ([facility]) [address] [place] [address] 16368 Urea nitrogen [Mass/Vol] 21 mg/dL Normal 6-23 [facility] Comment on above: Performed By: #### 5 8410-2 #### AISHA Monzon ([id number]) [facility] ([facility]) [address] [place] [address] 62175 TRANSTHORACIC ECHO (TTE) COM PLETEon 05-20-2023 TRANSTHORACIC ECHO (TTE) COMPLETE [facility], [address] [place], [place] [id number] and TRANSTHORACIC ECHOCARDIOGRAM REPORT Patient Name: TERRY Santoyo Physician: [id number] Shorty Amin MD Study Date: 05/20/2023 Ordering Provider: [id number] WOOD BARBER MRN/PID: [id number] Fellow: Nurse: Date of /Age: 408/05/1960 / 62 years Surface Plate Finisher: ZULMA Garrett RDCS Gender: M Additional Staff: Height: 180.34 cm Admit Date: Weight: 106.14 kg Admission Status: Inpatient - STAT BSA: 2.25 m2 Department Location: [address] Blood Pressure: /65 mmHg Study Type: TRANSTHORACIC ECHO (TTE) COMPLETE Diagnosis/ICD: Presence of heart assist device-Z95.811 Indication: HFrEF with LVAD CPT Code: Echo Complete w Full Doppler-23196 Patient History: Pertinent History: A-Fib. HFrEF s/p [...] Ranges: L (more content not included)... Normal [facility] Heart TransthoracicOrdere d By: Shorty Amin on 05-20-2023 Body surface area Derived from formula 2.34 m2 [facility] Work Phone: LA vol index A/L 42.4 ml/m2 [facility] Work Phone: LVIDd 5.34 cm [facility] Work Phone: MV avg E/e' ratio 27.43 [facility] Work Phone: MV E/A ratio 3.04 [facility] Work Phone: RV free wall pk S' 4.00 cm/s [facility] Work Phone: Tricuspid annular plane systolic excursion 0.7 cm [facility] Work Phone: [facility] Work Phone: Heart Transthoracicon [facility], [address] [place] [address] and TRANSTHORACIC ECHOCARDIOGRAM REPORT Patient Name: TERRY VILLALPANDO Reading Physician: [id number] Shorty Amin MD Study Date: 05/20/2023 Ordering Provider: [id number] WOOD BARBER MRN/PID: [id number] Fellow: Nurse: Date of /Age: 408/05/1960 / 62 years Surface Plate Finisher: ZULMA Garrett RDCS Gender: M Additional Staff: Height: 180.34 cm Admit Date: Weight: 106.14 kg Admission Status: Inpatient - STAT BSA: 2.25 m2 Department Location: [address] Blood Pressure: /65 mmHg Study Type: TRANSTHORACIC ECHO (TTE) COMPLETE Diagnosis/ICD: Presence of heart assist device-Z95.811 Indication: HFrEF with LVAD CPT Code: Echo Complete w Full Doppler-09663 Patient History: Pertinent History: A-Fib. HFrEF s/p [...] not included)... Shorty Bowens MD - 05/20/2023 [facility], [address] [place] [address] and TRANSTHORACIC ECHOCARDIOGRAM REPORT Patient Name: TERRY VILLALPANDO Reading Physician: [id number] Shorty Amin MD Study Date: 05/20/2023 Ordering Provider: [id number] WOOD BARBER MRN/PID: [id number] Fellow: Nurse: Date of /Age: 408/05/1960 / 62 years Surface Plate Finisher: ZULMA Garrett RDCS Gender: M Additional Staff: Height: 180.34 cm Admit Date: Weight: 106.14 kg Admission Status: Inpatient - STAT BSA: 2.25 m2 Department Location: [address] Blood Pressure: /65 mmHg Study Type: TRANSTHORACIC ECHO (TTE) COMPLETE Diagnosis/ICD: Presence of heart assist device-Z95.811 Indication: HFrEF with LVAD CPT Code: Echo Complete w Full Doppler-51299 Patient History: Pertinent History: A-Fib. HFrEF s/p [...] LVIDd: 5.34 c (more content not included)... [facility] Work Phone: Arterial Line Insertionon LUBNA Solis 05/19/2023 6:14 PM Arterial Line Insertion Date/Time: 05/19/2023 6:09 PM Performed by: LUBNA Solis Authorized by: LUBNA Solis Consent: Consent obtained: Emergent situation Consent given by: Patient Risks, benefits, and alternatives were discussed: yes Risks discussed: Bleeding, ischemia, infection, pain and repeat procedure [facility] protocol: Procedure explained and questions answered to [...] performed the procedure, Natty Metz is a surgery assistant. [facility] Work Phone: Basic metabolic 2000 panelon 05-19-2023 Anion gap [Moles/Vol] 16 mmol/L 10 - 2 0 mmol/L [facility] Calcium [Mass/Vol] 9.6 mg/dL 8.6 - 10. 6 mg/dL [facility] Chloride [Moles/Vol] 100 mmol/L 98 - 10 7 mmol/L [facility] CO2 [Moles/Vol] 20 mmol/L Low 21 - 32 mmol/L [facility] Creatinine [Mass/Vol] 1.12 mg/dL 0.50 - 1.30 mg/dL [facility] GFR/1.73 sq M.predicted among non-blacks MDRD (S/P/Bld) [Vol rate/Area] 75 mL/min/{1.73_m2} - PINF [facility] Comment on above: Calculations of erica mated GFR are performed using the 2020 CKD-EPI Study Refit equation without the race variable for the IDMS-Traceable creatinine methods. https://jasn.asnjournals.org/content/early/ASN.110828 7401 Glucose [Mass/Vol] 313 mg/dL High 74 - 99 mg/dL [facility] Interpretation and review of laboratory results Abnormal [facility] Potassium [Moles/Vol] 4.1 mmol/L 3.5 - 5.3 mmol/L [facility] Sodium [Moles/Vol] 132 mmol/L Low 136 - 145 mmol/L [facility] Urea nitrogen [Mass/Vol] 22 mg/dL 6 - 23 mg/dL [facility] Anion gap [Moles/Vol] 16 mmol/L Normal 10-20 [facility] Comment on above: Performed By: #### 5 8410-2 #### AISHA Monzon ([id number]) [facility] ([facility]) [address] [place] [address] Calcium [Mass/Vol] 9.6 mg/dL Normal 8.6-10.6 [facility] Comment on above: Performed By: #### 5 8410-2 #### AISHA Monzon ([id number]) [facility] ([facility]) [address] [place] [address] Chloride [Moles/Vol] 100 mmol/L Normal 98-107 [facility] Comment on above: Performed By: #### 5 8410-2 #### IASHA Monzon ([id number]) [facility] ([facility]) [address] [place] [address] CO2 [Moles/Vol] 20 mmol/L Low 21-32 [facility] Comment on above: Performed By: #### 5 8410-2 #### AISHA Monzon ([id number]) [facility] ([facility]) [address] [place] [address] Creatinine [Mass/Vol] 1.12 mg/dL Normal 0.50-1.30 [facility] Comment on above: Performed By: #### 5 8410-2 #### AISHA Monzon ([id number]) [facility] ([facility]) [address] [place] [address] Glomerular filtration rate/1.73 sq M.predicted 75 mL/min/1.73m*2 Normal >60 [facility] Comment on above: Result Comment: Calc ulations of estimated GFR are performed using the 2020 CKD-EPI Study Refit equation without the race variable for the IDMS-Traceable creatinine methods. https://jasn.asnjournals.org/content/early//ASN.280272 5579 Performed By: #### 5 8410-2 #### AISHA Monzon ([id number]) [facility] ([facility]) [address] [place] [address] Glucose [Mass/Vol] 313 mg/dL High 74-99 [facility] Comment on above: Performed By: #### 5 8410-2 #### AISHA Monzon ([id number]) [facility] ([facility]) [address] [place] [address] Potassium [Moles/Vol] 4.1 mmol/L Normal 3.5-5.3 [facility] Comment on above: Performed By: #### 5 8410-2 #### AISHA ALEX L ([id number]) [facility] ([facility]) [address] [place] [address] Sodium [Moles/Vol] 132 mmol/L Low 136-145 [facility] Comment on above: Performed By: #### 5 8410-2 #### AISHA ALEX L ([id number]) [facility] ([facility]) [address] [place] [address] Urea nitrogen [Mass/Vol] 22 mg/dL Normal 6-23 [facility] Comment on above: Performed By: #### 5 8410-2 #### AISHA ALEX L ([id number]) [facility] ([facility]) [address] [place] [address] Anion gap [Moles/Vol] 24 mmol/L High 10-20 [facility] Comment on above: Performed By: #### 3 4529-8 #### AISHA ALEX L ([id number]) [facility] ([facility]) [address] [place] [address] Calcium [Mass/Vol] 9.7 mg/dL Normal 8.6-10.6 [facility] Comment on above: Performed By: #### 3 4529-8 #### AISHA ALEX L ([id number]) [facility] ([facility]) [address] [place] [address] Chloride [Moles/Vol] 104 mmol/L Normal 98-107 [facility] Comment on above: Performed By: #### 3 4529-8 #### AISHA ALEX L ([id number]) [facility] ([facility]) [address] [place] [address] CO2 [Moles/Vol] 16 mmol/L Low 21-32 [facility] Comment on above: Performed By: #### 3 4529-8 #### AISHA ALEX L ([id number]) [facility] ([facility]) [address] [place] [address] Creatinine [Mass/Vol] 1.24 mg/dL Normal 0.50-1.30 [facility] Comment on above: Performed By: #### 3 4529-8 #### AISHA ALEX L ([id number]) [facility] ([facility]) [address] [place] [address] Glomerular filtration rate/1.73 sq M.predicted 66 mL/min/1.73m*2 Normal >60 [facility] Comment on above: Result Comment: Calc ulations of estimated GFR are performed using the 2020 CKD-EPI Study Refit equation without the race variable for the IDMS-Traceable creatinine methods. https://jasn.asnjournals.org/content//ASN.848507 8171 Performed By: #### 3 4529-8 #### AISHA Monzon ([id number]) [facility] ([facility]) [address] [place] [address] Glucose [Mass/Vol] 349 mg/dL High 74-99 [facility] Comment on above: Performed By: #### 3 4529-8 #### AISHA Monzon ([id number]) [facility] ([facility]) [address] [place] [address] Potassium [Moles/Vol] 4.8 mmol/L Normal 3.5-5.3 [facility] Comment on above: Performed By: #### 3 4529-8 #### AISHA ALEX L ([id number]) [facility] ([facility]) [address] [place] [address] Sodium [Moles/Vol] 139 mmol/L Normal 136-145 [facility] Comment on above: Performed By: #### 3 4529-8 #### AISHA ALEX L (92728) [facility] ([facility]) [address] [place] [address] Urea nitrogen [Mass/Vol] 22 mg/dL Normal 6-23 [facility] Comment on above: Performed By: #### 3 4529-8 #### AISHA ALEX L ([id number]) [facility] ([facility]) [address] [place] [address] Blood type and Indirect anti body screen panel (Bld)on 05-19-2023 ABO group Nom (Bld) A [facility] Blood group antibody screen Ql Negative [facility] D Ag Ql (Bld) Positive [facility] ABO group Nom (Bld) A Normal [facility] Comment on above: Performed By: #### 3 4532-2 #### AISHA Monzon ([id number]) [facility] ([facility]) [address] [place] [address] Blood group antibody screen Ql Negative Normal [facility] Comment on above: Performed By: #### 3 4532-2 #### AISHA Monzon ([id number]) [facility] ([facility]) [address] [place] [address] D Ag Ql (Bld) Positive Normal [facility] Comment on above: Performed By: #### 3 4532-2 #### AISHA Monzon (88520) [facility] ([facility]) [address] [place] [address] CBC panel Auto (Bld)on 05-19 Erythrocyte distribution width (RBC) [Ratio] 14.6 % High 11.5 - 14.5 % [facility] Hematocrit (Bld) [Volume fraction] 44.6 % 41.0 - 52.0 % [facility] Hemoglobin (Bld) [Mass/Vol] 15.2 g/dL 13.5 - 17.5 g/dL [facility] Interpretation and review of laboratory results Abnormal [facility] MCH (RBC) [Entitic mass] 31.1 pg 26.0 - 34.0 pg [facility] MCHC (RBC) [Mass/Vol] 34.1 g/dL 32.0 - 36.0 g/dL [facility] MCV (RBC) [Entitic vol] 91 fL 80 - 100 fL [facility] Nucleated RBC/100 WBC (Bld) [Ratio] 0.0 % [facility] Platelets (Bld) [#/Vol] 123 10*3/uL Low [facility] RBC (Bld) [#/Vol] 4.89 10*6/uL [facility] WBC (Bld) [#/Vol] 6.5 10*3/uL [facility] Erythrocyte distribution width (RBC) [Ratio] 14.6 % High 11.5-14.5 [facility] Comment on above: Performed By: #### 5 8410-2 #### AISHA Monzon ([id number]) [facility] ([facility]) [address] [place] [address] Hematocrit (Bld) [Volume fraction] 44.6 % Normal 41.0-52.0 [facility] Comment on above: Performed By: #### 5 8410-2 #### AISHA Monzon (16049) [facility] ([facility]) [address] [place] [address] Hemoglobin (Bld) [Mass/Vol] 15.2 g/dL Normal 13.5-17.5 [facility] Comment on above: Performed By: #### 5 8410-2 #### AISHA Monzon (35601) [facility] ([facility]) [address] [place] [address] 31061 MCH (RBC) [Entitic mass] 31.1 pg Normal 26.0-34.0 [facility] Comment on above: Performed By: #### 5 8410-2 #### AISHA Monzon (65124) [facility] ([facility]) [address] [place] [address] MCHC (RBC) [Mass/Vol] 34.1 g/dL Normal 32.0-36.0 [facility] Comment on above: Performed By: #### 5 8410-2 #### AISHA Monzon (10913) [facility] ([facility]) [address] [place] [address]66[address] MCV (RBC) [Entitic vol] 91 fL Normal 80-100 [facility] Comment on above: Performed By: #### 5 8410-2 #### AISHA Monzon (28934) [facility] ([facility]) [address] [place] [address]248 Nucleated RBC/100 WBC (Bld) [Ratio] 0.0 /100 WBCs Normal 0.0-0.0 [facility] Comment on above: Performed By: #### 5 8410-2 #### AISHA Monzon (46122) [facility] ([facility]) [address] [place] [address] Platelets (Bld) [#/Vol] 123 x10*3/uL Low 150-450 [facility] Comment on above: Performed By: #### 5 8410-2 #### AISHA Monzon (38459) [facility] ([facility]) [address] [place] [address] RBC (Bld) [#/Vol] 4.89 x10*6/uL Normal 4.50-5.90 [facility] Comment on above: Performed By: #### 5 8410-2 #### AISHA Monzon ([id number]) [facility] ([facility]) [address] [place] [address] WBC (Bld) [#/Vol] 6.5 x10*3/uL Normal 4.4-11.3 [facility] Comment on above: Performed By: #### 5 8410-2 #### AISHA Monzon (98023) [facility] ([facility]) [address] [place] [address] Calcium, ionizedon Calcium.ionized (Bld) [Moles/Vol] 0.84 mmol/L Low 1.1 - 1.33 mmol/L [facility] Comment on above: The performance jean pierre acteristics of ionized calcium tested in heparinized plasma or serum have been validated by the individual laboratory site where testing is performed. Testing on heparinized plasma or serum is not approved by the FDA; however, such approval is not necessary. Calcium.ionizedon 05-19-2023 Calcium.ionized (Bld) [Moles/Vol] 0.84 mmol/L Low 1.1-1.33 [facility] Comment on above: Result Comment: The performance characteristics of ionized calcium tested in heparinized plasma or serum have been validated by the individual laboratory site where testing is performed. Testing on heparinized plasma or serum is not approved by the FDA; however, such approval is not necessary. Performed By: #### 1 994-3 #### AISHA Monzon (04990) [facility] ([facility]) [address] [place], [place] [address] Calcium.ionized (Bld) [Moles /Vol]on 05-19-2023 Interpretation and review of laboratory results Abnormal [facility] Digoxinon 05-19-2023 Digoxin [Mass/Vol] 0.46 ng/mL Low 0.80 - <2.00 [facility] Digoxin [Mass/Vol] 0.46 ng/mL Low 0.80-<2.00 [facility] Comment on above: Order Comment: Digox in measurements can be falsely increased or decreased if patient is receiving Digoxin-binding antibody therapy or Digoxin-like immunoreactive factors are present. Performed By: #### 1 0535-3 #### AISHA Monzon ([id number]) [facility] ([facility]) [address] [place] [address]69 Digoxin [Mass/Vol]on 024 Interpretation and review of laboratory results Abnormal [facility] Digoxin measurements can be falsely increased or decreased if patient is receiving Digoxin-binding antibody therapy or Digoxin-like immunoreactive factors are present. [facility] Electrical Cardioversionon 0 05-19-2023 LUBNA Solis 05/19/2023 6:28 PM Electrical Cardioversion Date/Time: 05/19/2023 6:18 PM Performed by: LUBNA Solis Authorized by: LUBNA Solis Consent: Consent obtained: Verbal and emergent situation Consent given by: Patient Risks, benefits, and alternatives were discussed: yes Alternatives discussed: Rate-control medication, alternative treatment, no treatment and observation Carroll protocol: Procedure explained and questions answered to [...] Procedure completion: Tolerated well, no immediate complications [facility] Work Phone: [facility] Work Phone: Glucose Test strip manual (B ld) [Mass/Vol]on 05-19-2023 Glucose [Mass/Vol] 304 mg/dL High 74 - 99 mg/dL [facility] Interpretation and review of laboratory results Abnormal [facility] Glucose [Mass/Vol] 304 mg/dL High 74-99 [facility] Comment on above: Performed By: #### 2 341-6 #### AISHA Monzon (78862) [facility] ([facility]) [address] [place] [address] Glucose [Mass/Vol] 330 mg/dL High 74 - 99 mg/dL [facility] Interpretation and review of laboratory results Abnormal [facility] Glucose [Mass/Vol] 330 mg/dL High 74-99 [facility] Comment on above: Performed By: #### 2 341-6 #### AISHA Monzon ([id number]) [facility] ([facility]) [address] [place] [address] 26042 HbA1c (Bld) [Mass fraction]o n 05-19-2023 Average glucose Estimated from glycated hemoglobin (Bld) [Mass/Vol] 209 mg/dL Not Established [facility] Interpretation and review of laboratory results Abnormal [facility] Diagnosis of Diabetes-Adults Non-Diabetic: < or = 5.6% Increased risk for developing diabetes: 5.7-6.4% Diagnostic of diabetes: > or = 6.5% Monitoring of Diabetes Age (y).................. ..... Therapeutic Goal (%) Adults: >18.................. .......<7.0 Pediatrics: 13-18................ ...<7.5 Pediatrics: 7-12................. ...<8.0 Pediatrics: 0-6.................. ... 7.5-8.5 [place] [employer]. Diabetes Care 33(S1)Apr 2009 [facility] Average glucose Estimated from glycated hemoglobin (Bld) [Mass/Vol] 209 mg/dL Normal Not Established [facility] Comment on above: Order Comment: Diagn osis of Diabetes-Adults Non-Diabetic: < or = 5.6% Increased risk for developing diabetes: 5.7-6.4% Diagnostic of diabetes: > or = 6.5% Monitoring of Diabetes Age (y)....................... Therapeutic Goal (%) Adults: >18.........................<7.0 Pediatrics: 13-18...................<7.5 Pediatrics: 7-12....................<8.0 Pediatrics: 0-6..................... 7.5-8.5 [employer] [employer]. Diabetes Care 33(S1)Apr 2009 Performed By: #### 4 548-4 #### AISHA Monzon (27613) [facility] ([facility]) [address] [place] [address] Hemoglobin A1con 05-19-2023 HbA1c (Bld) [Mass fraction] 8.9 % High see below [facility] Hemoglobin A1c/Hemoglobin.to davin 05-19-2023 HbA1c (Bld) [Mass fraction] 8.9 % High see below [facility] Comment on above: Order Comment: Diagn osis of Diabetes-Adults Non-Diabetic: < or = 5.6% Increased risk for developing diabetes: 5.7-6.4% Diagnostic of diabetes: > or = 6.5% Monitoring of Diabetes Age (y)....................... Therapeutic Goal (%) Adults: >18.........................<7.0 Pediatrics: 13-18...................<7.5 Pediatrics: 7-12....................<8.0 Pediatrics: 0-6..................... 7.5-8.5 [place] [employer]. Diabetes Care 33(S1), Apr 2009 Performed By: #### 4 548-4 #### AISHA Monzon (54958) [facility] ([facility]) [address] [place] [address]361 LDH Lactate to pyruvate reac tion [Catalytic activity/Vol]on 05-19-2023 Interpretation and review of laboratory results Abnormal [facility] Lactateon 05-19-2023 Lactate [Moles/Vol] 1.6 mmol/L 0.4 - 2. 0 mmol/L [facility] Lactate [Moles/Vol] 1.6 mmol/L Normal 0.4-2.0 [facility] Comment on above: Order Comment: Venip uncture immediately after or during the administration of Metamizole may lead to falsely low results. Testing should be performed immediately prior to Metamizole dosing. Performed By: #### 2 524-7 #### AISHA Monzon (74326) [facility] ([facility]) [address] [place] [address]81 Lactate Dehydrogenaseon 04-23 LDH Lactate to pyruvate reaction [Catalytic activity/Vol] 395 U/L High 84 - 246 U/L [facility] Lactate [Moles/Vol]on 2023 Interpretation and review of laboratory results Normal [facility] Venipuncture immediately after or during the administration of Metamizole may lead to falsely low results. Testing should be performed immediately prior to Metamizole dosing. [facility] Lactate dehydrogenaseon 04-23 LDH Lactate to pyruvate reaction [Catalytic activity/Vol] 395 U/L High 84-246 [facility] Comment on above: Performed By: #### 5 8410-2 #### AISHA Monzon ([id number]) [facility] ([facility]) [address] [place] [address] Magnesiumon 05-19-2023 Magnesium [Mass/Vol] 4.81 mg/dL Critically high 1.60 - 2.40 mg/dL [facility] Magnesium [Mass/Vol] 4.81 mg/dL Critically high 1.60-2.40 [facility] Comment on above: Performed By: #### 5 8410-2 #### AISHA Monzon (13148) [facility] ([facility]) [address] [place] [address] Magnesium [Mass/Vol]on 05-19 Interpretation and review of laboratory results Abnormal [facility] PT and aPTT panel Coag (PPP) on 05-19-2023 aPTT Coag (PPP) [Time] 42 s [facility] INR Coag (PPP) [Relative time] 2.4 {INR} High 0.9 - 1.1 [facility] Interpretation and review of laboratory results Abnormal [facility] PT Coag (PPP) [Time] 27.8 s [facility] The APTT is no longe r used for monitoring Unfractionated Heparin Therapy. For monitoring Heparin Therapy, use the Heparin Assay. [facility] aPTT Coag (PPP) [Time] 42 s [facility] 27-38 [facility] Comment on above: Order Comment: The A PTT is no longer used for monitoring Unfractionated Heparin Therapy. For monitoring Heparin Therapy, use the Heparin Assay. Performed By: #### 3 4529-8 #### AISHA Monzon ([id number]) [facility] ([facility]) [address] [place] [address] INR Coag (PPP) [Relative time] 2.4 High 0.9-1.1 [facility] Comment on above: Order Comment: The A PTT is no longer used for monitoring Unfractionated Heparin Therapy. For monitoring Heparin Therapy, use the Heparin Assay. Performed By: #### 3 4529-8 #### AISHA Monzon ([id number]) [facility] ([facility]) [address] [place] [address] PT Coag (PPP) [Time] 27.8 s High 9.8-12.8 [facility] Comment on above: Order Comment: The A PTT is no longer used for monitoring Unfractionated Heparin Therapy. For monitoring Heparin Therapy, use the Heparin Assay. Performed By: #### 3 4529-8 #### AISHA Monzon (20029) [facility] ([facility]) [address] [place], [place] [address] TSH WITH REFLEX TO FREE T4 I F ABNORMALon 05-19-2023 TSH Qn 0.98 m[IU]/L Normal 0.44-3.98 [facility] Comment on above: Order Comment: TSH t esting is performed using different testing methodology at [facility] than at other [facility]. Direct result comparisons should only be made within the same method. Performed By: #### T HYDS #### AISHA Monzon ([id number]) [facility] ([facility]) [address] [place] [address]65[address] TSH with reflex to Free T4 i f abnormalon 05-19-2023 Interpretation and review of laboratory results Normal [facility] TSH Qn 0.98 m[IU]/L [facility] TSH testing is performed using different testing methodology at [facility] than at other [facility]. Direct result comparisons should only be made within the same method. [facility] XR CHEST 1 VIEWon 05-19-2023 XR CHEST 1 VIEW Interpreted By: Kb Antonio and Meyers Emily STUDY: XR CHEST 1 VIEW; 05/19/2023 2:30 pm INDICATION: Signs/Symptoms:admit CXR. COMPARISON: Chest radiograph 03/22/2021 ACCESSION NUMBER(S): [id number] ORDERING CLINICIAN: WOOD BARBER FINDINGS: AP radiograph [...] stated above. This study was interpreted at [place], [place]. MACRO: None Signed by: Kb Antonio 05/19/2023 5:15 PM Dictation workstation: [id number] [facility] XR Chest Single viewon 05-19 1. Mild perihilar vascular congestion, which is similar when compared to prior exam. Recommend correlation with patient's volume status. 2. Medical lines and devices as detailed above. I personally reviewed the images/study, and I agree with the findings as stated above. This study was interpreted at [place], [place]. MACRO: None Signed by: Kb Antonio 05/19/2023 5:15 PM Dictation workstation: [id number] [facility] Interpreted By: Kb Antonio and Meyers Emily STUDY: XR CHEST 1 VIEW; 05/19/2023 2:30 pm INDICATION: Signs/Symptoms:admit CXR. COMPARISON: Chest radiograph 03/22/2021 ACCESSION NUMBER(S): [id number] ORDERING CLINICIAN: WOOD BARBER FINDINGS: AP radiograph [...] BONES: No acute osseous changes. [facility] Levon Antonio MD - 05/19/2023 Interpreted By: Kb Antonio and Meyers Emily STUDY: XR CHEST 1 VIEW; 05/19/2023 2:30 pm INDICATION: Signs/Symptoms:admit CXR. COMPARISON: Chest radiograph 03/22/2021 ACCESSION NUMBER(S): [id number] ORDERING CLINICIAN: WOOD BARBER FINDINGS: AP radiograph [...] stated above. This study was interpreted at [place], [place]. MACRO: None Signed by: Kb Antonio 05/19/2023 5:15 PM Dictation workstation: [id number] [facility] Work Phone: Radiology Study observation (narrative) [facility] Work Phone: XR Chest Single viewOrdered By: Levon Antonio on 05-19-2023 [facility] Work Phone: ED Note-Physicianon 04-10-20 ED [...] medications Follow-up With When Contact Information JOLEEN BOUDREAUXBRANT In 3 days [address] [place] [address] [phone] Business (1) Additional Instructions: Patient Education Contusion Attestation Patient was treated and evaluated by the Physician Software Client Architect. The attending physician was in the [...] = na Signed By: Andres Cote MD [facility] Comment on above: Result Comment: Elec tronically Signed By: Cee Jaquez PA-C\.br\Date and Time Signed: 04/07/23 22:39 EST\.br\Electronically Co-Signed By: David Johnson M.D.\.br\Date and Time Co-Signed: 04/10/23 19:25 EST Consent for Treatmenton 03-22 Consent for Treatment [id number]#1 .00TIFF Normal [facility] Discharge Instructionson Discharge Instructions [id number]# 1.00TIFF Normal [facility] ED Clinical Summaryon 2022 ED Clinical Summary [place] [id number] ED Clinical Summary Person Information Name: TERRY VILLALPANDO [facility] Age: 62 Years : 1960 Sex: Male Language: South African PCP: JOLEEN HERRERA CNP Marital Status: Phone: [phone] Visit Id: Visit Reason: Foot injury - [...] 04/07/2023 17:06:00 04/07/2023 17:06:00 04/07/2023 17:06:00 ADDRESS: [address] [place] [address] [address] [place] [phone] PHYS DOC NOTES: MEDICAL INFORMATION: Prescriptions Given: PATIENT EDUCATION INFORMATION: Instructions: Contusion Follow up: With: Address: When: JOLEEN HERRERA [address] [place], [place] [phone] [phone] Business (1) In 3 days DIAGNOSIS: 1:Foot contusion Normal [facility] ED Patient Education Noteon 04-07-2023 ED [...] or lying down. General instructions ? Take iwfk-ihz-qkrnyia and prescription medicines only as told by [...] compression, and elevation. You may be given ydeg-aaf-ygmojpj medicines for pain. ? Contact a health [...] Reviewed: 02/01/2022 Elsevier Patient Education ? 2022 [employer] Normal [facility] ED Patient Summaryon 023 ED Patient Summary [address] [address] Patient Discharge Instructions Person Information Name: TERRY VILLALPANDO Age: 62 Years Arrival Date: 04/07/2023 15:19:29 Discharge Diagnosis: 1:Foot contusion Primary Care Physician: JOLEEN HERRERA CNP Provider Information Primary Provider: David Johnson M.D. Advanced Operations Support Specialist:Cee Jaquez PA-C The exam and treatment you received in the Emergency Department were for an urgent problem and are not intended as complete care. It is important that you follow up with a doctor, nurse practitioner, or physician?s surgery assistant for ongoing care. If your symptoms [...] With: Address: When: JOLEEN HERRERA [address] [place], [place] [phone] Business (1) In 3 days In the event that this physician does not participate in your insurance network, please consult with your insurance company to find a nearby participating provider. Patient Education Materials: Contusion A MESSAGE TO ALL PATIENTS REGARDING OPIOIDS PRESCRIPTION OPIOIDS: WHAT YOU NEED TO KNOW Prescription opioids can be used to help relieve cxwtnvem-dl-izptuy pain and are often prescribed following a [...] be struggling with addiction, tell your health career placement services counselor and ask for guidance or call SAMHSA?S National Helpline at 9-991-326-HELP. v Source: [place] (more content not included)... Normal [facility] XR Foot 3+ Views Righton XR [...] ANALY Technologist: MASOOD Technical Comments Radiation Dose: Ka,r in mGy = na DAP = na Normal [facility] CNOVSPon 01-11-2023 CNOVSP Visit (SP) Office ([place]) TERRY VILLALPANDO ([id number]) 1960 M Date Time Provider Department 01/11/23 10:45 AM AILYN FRIEND During your visit today, we recorded the following information about you: Temperature Respiration Weight Height 97.3 degrees 18/minute 113.9 kg 1.816 m Ailyn Friend MD 01/11/2023 11:09 AM Signed PATIENT NAME: Terry Villalpando CLINIC NO.: [id number] ATTENDING PHYSICIAN: Ailyn Friend MD DATE OF SERVICE: January 11, 2023 Some of the elements of this note have been copied from my previous progress note dated 09/12/2022. All the information has been reviewed carefully. Dear Joleen Herrera, CAREER PLACEMENT SERVICES COUNSELOR, here is an update on a follow up visit on paulino Villalpando at the clinic January 11, 2023 Diagnosis: SMM and thrombocytopenia Treatment History: March 2021, admitted to [facility] for blood loss anemia presumed to be [...] g/dL, KL ratio 11 Established care with ri 01/10/2022 HPI: Terry Villalpando is a 62 [...] or rhonchi (more content not included)... Normal [facility] PROTEIN ELECTROPHORESIS SERU M (P)Ordered By: Linda Ceballos on 01-07-2023 Albumin [Mass/Vol] 4.30 g/dL 3.43 - 5. 41 g/dL [facility] Alpha 1 globulin Elph [Mass/Vol] 0.28 g/dL 0.18 - 0.43 g/dL [facility] Alpha 2 globulin Elph [Mass/Vol] 0.60 g/dL 0.42 - 0.98 g/dL [facility] Beta globulin Elph [Mass/Vol] 1.76 g/dL High 0.61 - 1.17 g/dL [facility] Gamma globulin Elph [Mass/Vol] 1.16 g/dL 0.53 - 1.51 g/dL [facility] Interpretation and review of laboratory results Abnormal [facility] Interpretation Comment for Protein Electrophoresis See separate immunofixation report for characterization of monoclonal gammopathy. [facility] M-Protein Location Beta Fraction 1 C [place] Protein Fractions [Interp] An M protein is identified on protein electrophoresis. Abnormal No definitive M protein is identified on protein electrophore sis. [facility] Protein.monoclonal Elph [Mass/Vol] 0.73 g/dL High NINF - 0.00 g/dL [facility] SPE Staff Review Reviewed by Thalia Paniagua MD [facility] Serum electrophoresi s test was performed using the CookItFor.Us V8 RocketBoltUS capillary electrophoresis method. Results obtained with different assay methods or kits cannot be used interchangeably. [facility] Clin ic FERRITIN BLDon 01-04-2023 Ferritin [Mass/Vol] 75.6 ng/mL 30.3 - 5 65.7 ng/mL [facility] Ferritin [Mass/Vol]on 2022 Interpretation and review of laboratory results Normal [facility] Clin ic IMMUNOGLOBULINS GAMon 2022 IgA [Mass/Vol] 1156 mg/dL High 70 - 400 mg/dL [facility] IgG [Mass/Vol] 1496 mg/dL 700 - 1600 mg/dL [facility] IgM [Mass/Vol] 86 mg/dL 40 - 230 mg/dL [facility] Interpretation and review of laboratory results Abnormal [facility] Clin ic Iron and Iron binding capaci ty panelon 01-04-2023 Iron [Mass/Vol] 112 ug/dL 41 - 186 ug/dL [facility] Iron binding capacity [Mass/Vol] 359 ug/dL 232 - 386 ug/dL [facility] Iron/TIBC [Molar ratio] 31.2 % 15.0 - 57.0 % [facility] KAPPA/HINOJOSA,FREE,SEROrdered B y: Esther Kristian on 01-04-2023 Immunoglobulin light chains.kappa.free (S) [Mass/Vol] 331.1 mg/L High 3.3 - 19.4 mg/L [facility] Comment on above: Rarely, increased se rum free light chains levels may not be detected or accurately quantified due to prozone phenomenon or in high viscosity samples using this immunoturbidimetric assay. Correlation with other laboratory results and clinical findings is recommended. The [place] Free Light Chain was performed using the Binding Site Optilite immunoturbidimetric method. Result obtained with different assay methods or kits cannot be used interchangeably. Immunoglobulin light chains.kappa/Immunogl obulin light chains.lambda (S) [Mass ratio] 15.05 High 0.26 - 1.65 [facility] Immunoglobulin light chains.lambda.free [Mass/Vol] 22.0 mg/L 5.7 - 26.3 mg/L [facility] Comment on above: Rarely, increased se rum free light chains levels may not be detected or accurately quantified due to prozone phenomenon or in high viscosity samples using this immunoturbidimetric assay. Correlation with other laboratory results and clinical findings is recommended. The [place] Free Light Chain was performed using the Binding Site Optilite immunoturbidimetric method. Result obtained with different assay methods or kits cannot be used interchangeably. Interpretation and review of laboratory results Abnormal [facility] ic No Panel Informationon 01-04 Interpretation and review of laboratory results Normal [facility] ic PROTEIN TOTAL BLDon 01-05-20 23 Protein [Mass/Vol] 7.9 g/dL 6.3 - 8.0 g/dL [facility] Protein [Mass/Vol] 8.0 g/dL 6.3 - 8.0 g/dL [facility] CBC W Auto Differential pane l (Bld)on 01-03-2023 Basophils (Bld) [#/Vol] 0.07 10*3/uL [facility] Basophils/100 WBC (Bld) 1.1 % [facility] Differential cell count method Nom (Bld) Auto [facility] Eosinophils (Bld) [#/Vol] 0.36 10*3/uL [facility] Eosinophils/100 WBC (Bld) 5.5 % [facility] Erythrocyte distribution width (RBC) [Ratio] 16.0 % High 11.5 - 15.0 % [facility] Hematocrit (Bld) [Volume fraction] 47.0 % 39.0 - 51.0 % [facility] Hemoglobin (Bld) [Mass/Vol] 15.4 g/dL 13.0 - 17.0 g/dL [facility] Immature granulocytes (Bld) [#/Vol] NINF [facility] Immature granulocytes/100 WBC (Bld) 0.3 % [facility] Interpretation and review of laboratory results Abnormal [facility] Lymphocytes (Bld) [#/Vol] 1.01 10*3/uL [facility] Lymphocytes/100 WBC (Bld) 15.5 % [facility] MCH (RBC) [Entitic mass] 30.7 pg 26.0 - 34.[address] [facility] MCHC (RBC) [Mass/Vol] 32.8 g/dL 30.5 - 36.0 g/dL [facility] MCV (RBC) [Entitic vol] 93.6 fL 80.0 - 100.[address] [facility] Monocytes (Bld) [#/Vol] 0.80 10*3/uL [facility] Monocytes/100 WBC (Bld) 12.3 % [facility] Neutrophils (Bld) [#/Vol] 4.26 10*3/uL [facility] Neutrophils/100 WBC (Bld) 65.3 % [facility] Nucleated RBC (Bld) [#/Vol] NINF [facility] Nucleated RBC/100 WBC (Bld) [Ratio] 0.0 % /[address] [facility] Platelet mean volume (Bld) [Entitic vol] 12.1 fL 9.0 - 12.[address] [facility] Platelets (Bld) [#/Vol] 113 10*3/uL Low [facility] RBC (Bld) [#/Vol] 5.02 10*6/uL 4.20 - 6.0 0 m/uL [facility] WBC (Bld) [#/Vol] 6.52 10*3/uL [facility] ic Basophils (Bld) [#/Vol] 0.07 10*3/uL Normal <0.11 [facility] Comment on above: Order Comment: Speci men Type: BLOOD SPECIMEN Ordering Facility: [facility] Address: [address] [place] [id number] Performed By: #### 5 7021-8 #### [facility] CLIA [id number] [address] [place] [address] Basophils/100 WBC (Bld) 1.1 % Normal [facility] Comment on above: Order Comment: Speci men Type: BLOOD SPECIMEN Ordering Facility: [facility] Address: [address] [address] Performed By: #### 5 7021-8 #### [facility] CLIA [id number] [address] [place] [address] Differential cell count method Nom (Bld) Auto Normal [facility] Comment on above: Order Comment: Speci men Type: BLOOD SPECIMEN Ordering Facility: [facility] Address: [address] [address] Performed By: #### 5 7021-8 #### [facility] CLIA [id number] [address] [place] [address] Eosinophils (Bld) [#/Vol] 0.36 10*3/uL Normal <0.46 [facility] Comment on above: Order Comment: Speci men Type: BLOOD SPECIMEN Ordering Facility: [facility] Address: [address] [address] Performed By: #### 5 7021-8 #### [facility] CLIA [id number] [address] [place] [address] Eosinophils/100 WBC (Bld) 5.5 % Normal [facility] Comment on above: Order Comment: Speci men Type: BLOOD SPECIMEN Ordering Facility: [facility] Address: [address] [address] Performed By: #### 5 7021-8 #### [facility] CLIA [id number] [address] [place] [address] Erythrocyte distribution width (RBC) [Ratio] 16.0 % High 11.5-15.0 [facility] Comment on above: Order Comment: Speci men Type: BLOOD SPECIMEN Ordering Facility: [facility] Address: [address] [address] Performed By: #### 5 7021-8 #### [facility] CLIA [id number] [address] [place] [address] Hematocrit (Bld) [Volume fraction] 47.0 % Normal 39.0-51.0 [facility] Comment on above: Order Comment: Speci men Type: BLOOD SPECIMEN Ordering Facility: [facility] Address: [address] [place] [address] Performed By: #### 5 7021-8 #### [facility] CLIA [id number] [address] [place] [address] Hemoglobin (Bld) [Mass/Vol] 15.4 g/dL Normal 13.0-17.0 [facility] Comment on above: Order Comment: Speci men Type: BLOOD SPECIMEN Ordering Facility: [facility] Address: [address] [place] [address] Performed By: #### 5 7021-8 #### [facility] CLIA [id number] [address] [place] [address] Immature granulocytes (Bld) [#/Vol] 10*3/uL Normal <0.10 [facility] Comment on above: Order Comment: Speci men Type: BLOOD SPECIMEN Ordering Facility: [facility] Address: [address] [place] [address] Performed By: #### 5 7021-8 #### [facility] CLIA [id number] [address] [place] [address] Immature granulocytes/100 WBC (Bld) 0.3 % Normal [facility] Comment on above: Order Comment: Speci men Type: BLOOD SPECIMEN Ordering Facility: [facility] Address: [address] [place] [address] Performed By: #### 5 7021-8 #### [facility] CLIA [id number] [address] [place] [address] Lymphocytes (Bld) [#/Vol] 1.01 10*3/uL Normal 1.00-4.00 [facility] Comment on above: Order Comment: Speci men Type: BLOOD SPECIMEN Ordering Facility: [facility] Address: [address] [address] Performed By: #### 5 7021-8 #### [facility] CLIA [id number] [address] [place] [address] Lymphocytes/100 WBC (Bld) 15.5 % Normal [facility] Comment on above: Order Comment: Speci men Type: BLOOD SPECIMEN Ordering Facility: [facility] Address: [address] [address] Performed By: #### 5 7021-8 #### [facility] CLIA [id number] [address] [place] [address] MCH (RBC) [Entitic mass] 30.7 pg Normal 26.0-34.0 [facility] Comment on above: Order Comment: Speci men Type: BLOOD SPECIMEN Ordering Facility: [facility] Address: [address] [address] Performed By: #### 5 7021-8 #### [facility] CLIA [id number] [address] [place] [address] MCHC (RBC) [Mass/Vol] 32.8 g/dL Normal 30.5-36.0 [facility] Comment on above: Order Comment: Speci men Type: BLOOD SPECIMEN Ordering Facility: [facility] Address: [address] [address] Performed By: #### 5 7021-8 #### [facility] CLIA [id number] [address] [place] [address] MCV (RBC) [Entitic vol] 93.6 fL Normal 80.0-100.0 [facility] Comment on above: Order Comment: Speci men Type: BLOOD SPECIMEN Ordering Facility: [facility] Address: [address] [place] [address] Performed By: #### 5 7021-8 #### [facility] CLIA [id number] [address] [place] [address] Monocytes (Bld) [#/Vol] 0.80 10*3/uL Normal <0.87 [facility] Comment on above: Order Comment: Speci men Type: BLOOD SPECIMEN Ordering Facility: [facility] Address: [address] [address] Performed By: #### 5 7021-8 #### [facility] CLIA [id number] [address] [place] [address] Monocytes/100 WBC (Bld) 12.3 % Normal [facility] Comment on above: Order Comment: Speci men Type: BLOOD SPECIMEN Ordering Facility: [facility] Address: [address] [address] Performed By: #### 5 7021-8 #### [facility] CLIA [id number] [address] [place] [address] Neutrophils (Bld) [#/Vol] 4.26 10*3/uL Normal 1.45-7.50 [facility] Comment on above: Order Comment: Speci men Type: BLOOD SPECIMEN Ordering Facility: [facility] Address: [address] [address] Performed By: #### 5 7021-8 #### [facility] CLIA [id number] [address] [place] [address] Neutrophils/100 WBC (Bld) 65.3 % Normal [facility] Comment on above: Order Comment: Speci men Type: BLOOD SPECIMEN Ordering Facility: [facility] Address: [address] Performed By: #### 5 7021-8 #### [facility] CLIA [id number] [address] [place] [address] Nucleated RBC (Bld) [#/Vol] 10*3/uL Normal <0.01 [facility] Comment on above: Order Comment: Speci men Type: BLOOD SPECIMEN Ordering Facility: [facility] Address: [address] Performed By: #### 5 7021-8 #### [facility] CLIA [id number] [address] [place] [address] Nucleated RBC/100 WBC (Bld) [Ratio] 0.0 /100 WBC Normal [facility] Comment on above: Order Comment: Speci men Type: BLOOD SPECIMEN Ordering Facility: [facility] Address: [address] [place] [address] Performed By: #### 5 7021-8 #### [facility] CLIA [id number] [address] [place] [address] Platelet mean volume (Bld) [Entitic vol] 12.1 fL Normal 9.0-12.7 [facility] Comment on above: Order Comment: Speci men Type: BLOOD SPECIMEN Ordering Facility: [facility] Address: [address] [place] [address] Performed By: #### 5 7021-8 #### [facility] CLIA [id number] [address] [place] [address] Platelets (Bld) [#/Vol] 113 10*3/uL Low 150-400 [facility] Comment on above: Order Comment: Speci men Type: BLOOD SPECIMEN Ordering Facility: [facility] Address: [address] [place] [address] Performed By: #### 5 7021-8 #### [facility] CLIA [id number] [address] [place] [address]323 RBC (Bld) [#/Vol] 5.02 10*6/uL Normal 4.20-6.00 [facility] Comment on above: Order Comment: Speci men Type: BLOOD SPECIMEN Ordering Facility: [facility] Address: [address] [place] [address] Performed By: #### 5 7021-8 #### [facility] CLIA [id number] [address] [place] [address] WBC (Bld) [#/Vol] 6.52 10*3/uL Normal 3.70-11.00 [facility] Comment on above: Order Comment: Speci men Type: BLOOD SPECIMEN Ordering Facility: [facility] Address: [place] [address] Performed By: #### 5 7021-8 #### [facility] CLIA [id number] [address] [place] [address] Comprehensive metabolic 2000 panelOrdered By: Angeli Molina on 01-03-2023 Albumin [Mass/Vol] 4.2 g/dL 3.9 - 4.9 g/dL [facility] ALP [Catalytic activity/Vol] 80 U/L 38 - 113 U/L [facility] ALT [Catalytic activity/Vol] 14 U/L 10 - 54 U/L [facility] Anion gap [Moles/Vol] 12 mmol/L 9 - 18 mmol/L [facility] AST [Catalytic activity/Vol] 26 U/L 14 - 40 U/L [facility] Bilirubin [Mass/Vol] 1.4 mg/dL High 0.2 - 1 .3 mg/dL [facility] Calcium [Mass/Vol] 9.9 mg/dL 8.5 - 10. 2 mg/dL [facility] Chloride [Moles/Vol] 99 mmol/L 97 - 10 5 mmol/L [facility] CO2 [Moles/Vol] 23 mmol/L 22 - 30 mmol/L [facility] Creatinine [Mass/Vol] 1.25 mg/dL High 0.73 - 1.22 mg/dL [facility] GFR/1.73 sq M.predicted among non-blacks MDRD (S/P/Bld) [Vol rate/Area] 66 mL/min/{1.73_m2} - [facility] in Comment on above: Estimated Glomerular Filtration Rate [...] not accurately reflect actual GFR. Glucose [Mass/Vol] 220 mg/dL High 74 - 99 mg/dL [facility] Comment on above: The [place] Diabete s Association (ADA) provides guidance for [...] Standards of Medical Care in Diabetes 2016, [place] Diabetes Association. Diabetes Care. 2016.39(Suppl 1). Interpretation and review of laboratory results Abnormal [facility] Potassium [Moles/Vol] 4.0 mmol/L 3.7 - 5.1 mmol/L [facility] Protein [Mass/Vol] 8.1 g/dL High 6.3 - 8.0 g/dL [facility] Sodium [Moles/Vol] 134 mmol/L Low 136 - 144 mmol/L [facility] Urea nitrogen [Mass/Vol] 32 mg/dL High 9 - 24 mg/dL [facility] ic Comprehensive metabolic 2000 panelon 01-03-2023 Albumin [Mass/Vol] 4.2 g/dL Normal 3.9-4.9 [facility] Comment on above: Order Comment: Rayshawn damico Type: BLOOD SPECIMEN Ordering Facility: [facility] Address: [address] [place] [address] Performed By: #### S EREMMAM #### [facility] CLIA [id number] [address] [place] [address] [place] ALP [Catalytic activity/Vol] 80 U/L Normal 38-113 [facility] Comment on above: Order Comment: Rayshawn damico Type: BLOOD SPECIMEN Ordering Facility: [facility] Address: [address] [place] [address] Performed By: #### S ERIMM #### [facility] CLIA [id number] [address] [place] [address] [place] ALT [Catalytic activity/Vol] 14 U/L Normal 10-54 [facility] Comment on above: Order Comment: Speci men Type: BLOOD SPECIMEN Ordering Facility: [facility] Address: [address] [place] [address] Performed By: #### S ERIMM #### [facility] CLIA [id number] [address] [place] [address] [place] Anion gap [Moles/Vol] 12 mmol/L Normal 9-18 [facility] Comment on above: Order Comment: Speci men Type: BLOOD SPECIMEN Ordering Facility: [facility] Address: [address] [place] [address] Performed By: #### S ERIMM #### [facility] CLIA [id number] [address] [place] [address] [place] AST [Catalytic activity/Vol] 26 U/L Normal 14-40 [facility] Comment on above: Order Comment: Speci men Type: BLOOD SPECIMEN Ordering Facility: [facility] Address: [address] [place] [address] Performed By: #### S ERIMM #### [facility] CLIA [id number] [address] [place] [address] [place] Bilirubin [Mass/Vol] 1.4 mg/dL High 0.2-1.3 [facility] Comment on above: Order Comment: Speci men Type: BLOOD SPECIMEN Ordering Facility: [facility] Address: [address] [place] [address] Performed By: #### S ERIMM #### [facility] CLIA [id number] [address] [place] [address] [place] Calcium [Mass/Vol] 9.9 mg/dL Normal 8.5-10.2 [facility] Comment on above: Order Comment: Speci men Type: BLOOD SPECIMEN Ordering Facility: [facility] Address: [address] [place] [address] Performed By: #### S ERIMM #### [facility] CLIA [id number] [address] [place] [address] [place] Chloride [Moles/Vol] 99 mmol/L Normal 97-105 [facility] Comment on above: Order Comment: Speci men Type: BLOOD SPECIMEN Ordering Facility: [facility] Address: [address] [place] [address] Performed By: #### S ERIMM #### [facility] CLIA [id number] [address] [place] [address] [place] CO2 [Moles/Vol] 23 mmol/L Normal 22-30 [facility] Comment on above: Order Comment: Speci men Type: BLOOD SPECIMEN Ordering Facility: [facility] Address: [address] [place] [address] Performed By: #### S ERIMM #### [facility] CLIA [id number] [address] [place] [address] [place] Creatinine [Mass/Vol] 1.25 mg/dL High 0.73-1.22 [facility] Comment on above: Order Comment: Speci men Type: BLOOD SPECIMEN Ordering Facility: [facility] Address: [address] [place] [address] Performed By: #### S ERIMM #### [facility] CLIA [id number] [address] [place] [address] [place] Creatinine and Glomerular filtration rate.predicted panel (S/P/Bld) 66 mL/min/1.73m??? Normal >=60 [facility] Comment on above: Order Comment: Speci men Type: BLOOD SPECIMEN Ordering Facility: [facility] Address: [address] [place] [address] Result Comment: Erica mated Glomerular Filtration Rate [...] GFR. Performed By: #### S ERIMM #### [facility] CLIA [id number] [address] [place] [address] [place] Glucose [Mass/Vol] 220 mg/dL High 74-99 [facility] Comment on above: Order Comment: Speci men Type: BLOOD SPECIMEN Ordering Facility: [facility] Address: [address] [place] [address] Result Comment: The [place] Diabetes Association (ADA) provides guidance for cutoff [...] Standards of Medical Care in Diabetes 2016, [place] [employer]. Diabetes Care. 2016.39(Suppl 1). Performed By: #### S ERIMM #### [facility] CLIA [id number] [address] [place] [address] [place] Potassium [Moles/Vol] 4.0 mmol/L Normal 3.7-5.1 [facility] Comment on above: Order Comment: Speci men Type: BLOOD SPECIMEN Ordering Facility: [facility] Address: [address] [place] [address] Performed By: #### S ERIMM #### [facility] CLIA [id number] [address] [place] [address] [place] Protein [Mass/Vol] 8.1 g/dL High 6.3-8.0 [facility] Comment on above: Order Comment: Rayshawn damico Type: BLOOD SPECIMEN Ordering Facility: [facility] Address: [address] [place] [address] Performed By: #### S ERIMM #### [facility] CLIA [id number] [address] [place] [address] [place] Sodium [Moles/Vol] 134 mmol/L Low 136-144 [facility] Comment on above: Order Comment: Speci men Type: BLOOD SPECIMEN Ordering Facility: [facility] Address: [address] [place] [address] Performed By: #### S ERIMM #### [facility] CLIA [id number] [address] [place] [address] [place] Urea nitrogen [Mass/Vol] 32 mg/dL High 9-24 [facility] Comment on above: Order Comment: Speci men Type: BLOOD SPECIMEN Ordering Facility: [facility] Address: [address] [place] [address] Performed By: #### S ERIMM #### [facility] CLIA [id number] [address] [place] [address] [place] Ferritin SerPl-mCncon 2022 Ferritin [Mass/Vol] 75.6 ng/mL Normal 30.3-565.7 [facility] Comment on above: Order Comment: Speci men Type: BLOOD SPECIMEN Ordering Facility: [facility] Address: [address] [id number] Performed By: #### 5 0190-8, 2885-2, 2276-4 #### [facility] CLIA [id number] [address] [place] [address] [place] GLUCOSE, BLOOD (POC)on 01-03 Glucose [Mass/Vol] 211 mg/dL Abnormal 74 - 99 mg/dL [facility] Comment on above: Location:[facility], [address] [place] [address] Dr. [place], [place], [address] The Accu-Chek Inform II glucose meter has not been approved for testing on patients receiving intensive medical intervention or therapy and results from this point of care glucose test should not be used for patient management decisions in these cases. Inaccurate results may also occur from other interfering factors, such as N-acetylcysteine (blood concentrations of greater than 5mg/dL), galactose, extremes of hematocrit (<10 or >65), or high doses of ascorbic acid (vitamin C) greater than 3mg/dL. Consider alternate testing mechanisms (e.g. core lab, blood gas instrument) in the above situations. Interpretation and review of laboratory results Abnormal [facility] IMMUNOGLOBULINS GAMon 2022 IgA [Mass/Vol] 1156 mg/dL High 70-400 [facility] Comment on above: Order Comment: Speci men Type: BLOOD SPECIMEN Ordering Facility: [facility] Address: [address] [place] [address] Performed By: #### S ERIMM #### [facility] CLIA [id number] [address] [place] [address] [place] IgG [Mass/Vol] 1496 mg/dL Normal 700-1600 [facility] Comment on above: Order Comment: Speci men Type: BLOOD SPECIMEN Ordering Facility: [facility] Address: [address] [address] Performed By: #### S ERIMM #### [facility] CLIA [id number] [address] [place] [address] [place] IgM [Mass/Vol] 86 mg/dL Normal 40-230 [facility] Comment on above: Order Comment: Speci men Type: BLOOD SPECIMEN Ordering Facility: [facility] Address: [address] Performed By: #### S ERIMM #### [facility] CLIA [id number] [address] [place] [address] [place] Iron and Iron binding capaci ty panelon 01-03-2023 Iron [Mass/Vol] 112 ug/dL Normal 41-186 [facility] Comment on above: Order Comment: Speci men Type: BLOOD SPECIMEN Ordering Facility: [facility] Address: [address] [place] [address] Performed By: #### 5 0190-8, 2885-2, 6-4 #### [facility] CLIA [id number] [address] [place] [address] [place] Iron binding capacity [Mass/Vol] 359 ug/dL Normal 232-386 [facility] Comment on above: Order Comment: Speci men Type: BLOOD SPECIMEN Ordering Facility: [facility] Address: [address] [place] [address] Performed By: #### 5 0190-8, 2885-2, 2275-4 #### [facility] CLIA [id number] [address] [place] [address] [place] Iron/TIBC [Molar ratio] 31.2 % Normal 15.0-57.0 [facility] Comment on above: Order Comment: Speci men Type: BLOOD SPECIMEN Ordering Facility: [facility] Address: [address] [place] [address] Performed By: #### 5 0190-8, 2885-2, 2275-07 #### [facility] CLIA [id number] [address] [place] [address] [place] KAPPA/HINOJOSA,FREE,SERon 2022 Immunoglobulin light chains.kappa.free (S) [Mass/Vol] 331.1 mg/L High 3.3-19.4 [facility] Comment on above: Order Comment: Speci men Type: BLOOD SPECIMEN Ordering Facility: [facility] Address: [address] [place] [address] Result Comment: Rare ly, increased serum free light chains levels may not be detected or accurately quantified due to prozone phenomenon or in high viscosity samples using this immunoturbidimetric assay. Correlation with other laboratory results and clinical findings is recommended. The [place] Free Light Chain was performed using the Binding Site Optilite immunoturbidimetric method. Result obtained with different assay methods or kits cannot be used interchangeably. Performed By: #### S ERIMM #### [facility] CLIA [id number] [address] [place] [address] [place] Immunoglobulin light chains.kappa/Immunogl obulin light chains.lambda (S) [Mass ratio] 15.05 High 0.26-1.65 [facility] Comment on above: Order Comment: Speci men Type: BLOOD SPECIMEN Ordering Facility: [facility] Address: [address] [place] [address] Performed By: #### S MARTHAM #### [facility] CLIA [id number] [address] [place] [address] [place] Immunoglobulin light chains.lambda.free [Mass/Vol] 22.0 mg/L Normal 5.7-26.3 [facility] Comment on above: Order Comment: Speci men Type: BLOOD SPECIMEN Ordering Facility: [facility] Address: [address] [place] [address] Result Comment: Rare ly, increased serum free [...] interchangeably. Performed By: #### S MARTHAM #### [facility] CLIA [id number] [address] [place] [address] [place] NM PET/CT WHOLE [...] bilateral feet and ankle regions likely inflammatory. Furniture Repair Technician (topogram) images:No additional findings. -- IMPRESSION: 1. [...] any questions regarding this interpretation, please call [phone]. If you are unable to reach us at the number above, please feel free to contact [facility]Radiology at [phone]. [id number] Normal [facility] PET+CT Whole body Bone W 18F -NaF Cristiano 01-03-2023 IMPRESSION: 1. Neck: No suspicious hypermetabolic foci [...] any questions regarding this interpretation, please call [phone]. If you are unable to reach us at the number above, please feel free to contact [facility] at [phone]. DIVISION OF RADIOLOGY * * *Final Report* * * DATE [...] bilateral feet and ankle regions likely inflammatory. Furniture Repair Technician (topogram) images:No additional findings. -- DIVISION OF RADIOLOGY Provider, Lakesha Khoi [facility] - 01/03/2023 * * *Final Report* * * DATE [...] bilateral feet and ankle regions likely inflammatory. Furniture Repair Technician (topogram) images:No additional findings. -- IMPRESSION IMPRESSION: 1. Neck: No suspicious hypermetabolic foci [...] any questions regarding this interpretation, please call [phone]. If you are unable to reach us at the number above, please feel free to contact [facility] at [phone]. [facility] Radiology Study observation (narrative) [facility] PET+CT Whole body Bone W 18F -NaF IVOrdered By: [facility] Provider on 01-03-2023 [facility] PROTEIN ELECTROPHORESIS SERU M (P)on 01-03-2023 Albumin [Mass/Vol] 4.30 g/dL Normal 3.43-5.41 [facility] Comment on above: Order Comment: Speci men Type: BLOOD SPECIMEN Ordering Facility: [facility] Address: [address] [place] [address] Performed By: #### S ERIMM #### [facility] CLIA [id number] [address] [place] [address] [place] Alpha 1 globulin Elph [Mass/Vol] 0.28 g/dL Normal 0.18-0.43 [facility] Comment on above: Order Comment: Speci men Type: BLOOD SPECIMEN Ordering Facility: [facility] Address: [address] [place] [address] Performed By: #### S ERIMM #### [facility] CLIA [id number] [address] [place] [address] [place] Alpha 2 globulin Elph [Mass/Vol] 0.60 g/dL Normal 0.42-0.98 [facility] Comment on above: Order Comment: Speci men Type: BLOOD SPECIMEN Ordering Facility: [facility] Address: [address] [place] [address] Performed By: #### S ERIMM #### [facility] CLIA [id number] [address] [place] [address] [place] Beta globulin Elph [Mass/Vol] 1.76 g/dL High 0.61-1.17 [facility] Comment on above: Order Comment: Speci men Type: BLOOD SPECIMEN Ordering Facility: [facility] Address: [address] [place] [address] Performed By: #### S ERIMM #### [facility] CLIA [id number] [address] [place] [address] [place] Gamma globulin Elph [Mass/Vol] 1.16 g/dL Normal 0.53-1.51 [facility] Comment on above: Order Comment: Speci men Type: BLOOD SPECIMEN Ordering Facility: [facility] Address: [address] [place] [address] Performed By: #### S ERIMM #### [facility] CLIA [id number] [address] [place] [address] [place] INTERPRETATION COMMENT FOR PROTEIN ELECTROPHORESIS See separate immunofixation report for characterization of monoclonal gammopathy. Normal [facility] Comment on above: Order Comment: Speci men Type: BLOOD SPECIMEN Ordering Facility: [facility] Address: [address] [place] [address] Performed By: #### S ERIMM #### [facility] CLIA [id number] [address] [place] [address] [place] M-PROTEIN LOCATION Beta Fraction [facility]: Order Comment: Speci men Type: BLOOD SPECIMEN Ordering Facility: [facility] Address: [address] [place] [address] Performed By: #### S ERIMM #### [facility] CLIA [id number] [address] [place] [address] [place] Protein Fractions [Interp] An M protein is identified on protein electrophoresis. Abnormal No definitive M protein is identified on protein electrophore sis. [facility] Comment on above: Order Comment: Speci men Type: BLOOD SPECIMEN Ordering Facility: [facility] Address: [address] [place], [place] [id number] Performed By: #### S ERIMM #### [facility] CLIA [id number] [address] [place] [address] [place] Protein.monoclonal Elph [Mass/Vol] 0.73 g/dL High <=0.00 [facility] Comment on above: Order Comment: Speci men Type: BLOOD SPECIMEN Ordering Facility: [facility] Address: [address] [place] [address] Performed By: #### S ERIMM #### [facility] CLIA [id number] [address] [place] [address] [place] SPE STAFF REVIEW Reviewed by Thalia Paniagua MD [facility] Comment on above: Order Comment: Speci men Type: BLOOD SPECIMEN Ordering Facility: [facility] Address: [address] [place] [address] Performed By: #### S ERIMM #### [facility] CLIA [id number] [address] [place] [address] [place] Prot SerPl-mCncon 01-03-2023 Protein [Mass/Vol] 7.9 g/dL Normal 6.3-8.0 [facility] Comment on above: Order Comment: Speci men Type: BLOOD SPECIMEN Ordering Facility: [facility] Address: [address] [address] Performed By: #### 5 0190-8, 2885-2, 2276-4 #### [facility] CLIA [id number] [address] [place] [address] [place] Protein [Mass/Vol] 8.0 g/dL Normal 6.3-8.0 [facility] Comment on above: Order Comment: Speci men Type: BLOOD SPECIMEN Ordering Facility: [facility] Address: [address] [address] Performed By: #### S ERIMM #### [facility] CLIA [id number] [address] [id number] [place] FREE T4on 08-30-2022 Free T4 [Mass/Vol] 1.70 ng/dL Critically high 0.76-1.46 [facility] Comment on above: Performed By: #### F T4, PSAD #### [facility] [address] [address] [address] Sonya Mendoza LIPID PROFILEon 08-30-2022 CHOL-HDL RATIO NORM SEE BELOW Normal [facility] Comment on above: Result Comment: 3.3 - 4.4 LOW RISK 4.4 - 7.1 AVERAGE RISK 7.1 - 11.0 MODERATE RISK >11.0 HIGH RISK Performed By: #### I NFLUAB #### [facility] [address] [address] [address] Sonya Mendoza Cholesterol [Mass/Vol] 113 mg/dL Normal <=200 [facility] Comment on above: Performed By: #### I NFLUAB #### [facility] [address] [address] [address] Sonya Mendoza Cholesterol in HDL [Mass/Vol] 33 mg/dL Critically low 40-60 [facility] Comment on above: Performed By: #### I NFLUAB #### [facility] [address] [address] [address] Sonya Mendoza Cholesterol in LDL [Mass/Vol] 63.2 mg/dL Normal [facility] Comment on above: Performed By: #### I NFLUAB #### [facility] [address] [address] [address] Sonya Mendoza Cholesterol.total/Cho lesterol in HDL [Mass ratio] 3.4 {ratio} Normal [facility] Comment on above: Performed By: #### I NFLUAB #### [facility] [address] [address] [address] Sonya Mendoza HDL NORMAL > or = 60 mg/dl - LO W CARDIOVASCULAR RISK <40 mg/dl - HIGH CARDIOVASCULAR RISK Normal [facility] Comment on above: Performed By: #### I NFLUAB #### [facility] [address] [address] [address] Sonya Mendoza LDL CALC NORMAL SEE BELOW Normal [facility] Comment on above: Result Comment: <100 mg/dl OPTIMAL 100 - 129 mg/dl NEAR OR ABOVE OPTIMAL 130 - 159 mg/dl BORDERLINE HIGH 160 - 189 mg/dl HIGH >190 mg/dl VERY HIGH Performed By: #### I NFLUAB #### [facility] [address] [address] [address] Sonya Mendoza Triglyceride [Mass/Vol] 84 mg/dL Normal <=150 [facility] Comment on above: Performed By: #### I NFLUAB #### [facility] [address] [address] [address] Sonya Mendoza VLDL CALC 16.8 mg/dL Normal [facility] Comment on above: Performed By: #### I NFLUAB #### [facility] [address] [place] [address] Dr. Sonya Mendoza MICROALBUMIN, RAND URon 08-20 mALB <1.3 Normal <=30.0 [facility] Comment on above: Performed By: #### F T4, PSAD #### [facility] [address] [address] [address] Sonya Mendoza PROF 14(COMP METB)on 023 Albumin [Mass/Vol] 3.8 g/dL Normal 3.4-5.0 [facility] Comment on above: Performed By: #### I NFLUAB #### [facility] [address] [address] [address] Sonya Mendoza Albumin/Globulin [Mass ratio] 0.7 {ratio} Normal [facility] Comment on above: Performed By: #### I NFLUAB #### [facility] [address] [place] [address] Dr. Sonya Mendoza ALP [Catalytic activity/Vol] 92 U/L Normal 46-116 [facility] Comment on above: Performed By: #### I NFLUAB #### [facility] [address] [address] [address] Sonya Mendoza ALT [Catalytic activity/Vol] 21 U/L Normal 16-63 [facility] Comment on above: Performed By: #### I NFLUAB #### [facility] [address] [address] [address] Sonya Mendoza Anion gap [Moles/Vol] 11.7 mmol/L Normal Th [facility] Comment on above: Performed By: #### I NFLUAB #### [facility] [address] [address] [address] Sonya Mendoza AST [Catalytic activity/Vol] 18 U/L Normal 15-37 [facility] Comment on above: Performed By: #### I NFLUAB #### [facility] [address] [place] [address] Dr. Sonya Mendoza Bilirubin [Mass/Vol] 0.9 mg/dL Normal 0.2-1.0 [facility] Comment on above: Performed By: #### I NFLUAB #### [facility] [address] [place] [address] Dr. Sonya Mendoza Calcium [Mass/Vol] 9.2 mg/dL Normal 8.5-10.1 [facility] Comment on above: Performed By: #### I NFLUAB #### [facility] [address] [place] [address] Dr. Sonya Mendoza Chloride [Moles/Vol] 102 mmol/L Normal 98-107 [facility] Comment on above: Performed By: #### I NFLUAB #### [facility] [address] [place] [address] Dr. Sonya Mendoza CO2 [Moles/Vol] 30.5 mmol/L Normal 21.0-32.0 [facility] Comment on above: Performed By: #### I NFLUAB #### [facility] [address] [place] [address] Dr. Sonya Mendoza Creatinine [Mass/Vol] 1.48 mg/dL Critically high 0.70-1.30 [facility] Comment on above: Performed By: #### I NFLUAB #### [facility] [address] [place] [address] Dr. Sonya Mendoza EGFR-AF LAO 59 mL/min/1.73m2 Critically low >=60 [facility] Comment on above: Performed By: #### I NFLUAB #### [facility] [address] [address] [address] Sonya Mendoza EGFR-NON AF LAO 48 mL/min/1.73m2 Critically low >=60 [facility] Comment on above: Performed By: #### I NFLUAB #### [facility] [address] [address] [address] Sonya Mendoza Globulin (S) [Mass/Vol] 5.5 g/dL Normal [facility] Comment on above: Performed By: #### I NFLUAB #### [facility] [address] [address] [address] Sonya Mendoza Glucose [Mass/Vol] 189 mg/dL Critically high 74-106 [facility] Comment on above: Performed By: #### I NFLUAB #### [facility] [address] [address] [address] Sonya Mendoza Potassium [Moles/Vol] 4.2 mmol/L Normal 3.5-5.1 [facility] Comment on above: Performed By: #### I NFLUAB #### [facility] [address] [place] [address] Dr. Sonya Mendoza Protein [Mass/Vol] 9.3 g/dL Critically high 6.4-8.2 [facility] Comment on above: Performed By: #### I NFLUAB #### [facility] [address] [address] [address] Sonya Mendoza Sodium [Moles/Vol] 140 mmol/L Normal 136-145 [facility] Comment on above: Performed By: #### I NFLUAB #### [facility] [address] [address] [address] Sonya Mendoza Urea nitrogen [Mass/Vol] 31.0 mg/dL Critically high 7.0-18.0 [facility] Comment on above: Performed By: #### I NFLUAB #### [facility] [address] [address] [address] Sonya Mendoza Urea nitrogen/Creatinine [Mass ratio] 20.9 mg/mg Normal [facility] Comment on above: Performed By: #### I NFLUAB #### [facility] [address] [place] [address] Dr. Sonya Mendoza TSHon 08-30-2022 TSH 0.586 uIU/mL Normal 0.358-3.740 [facility] Comment on above: Performed By: #### I NFLUAB #### [facility] [address] [place] [address] Dr. Sonya Mendoza UA RANDOM W/MICROSCOPICon BACTERIA TRACE Abnormal NONE SEEN [facility] Comment on above: Performed By: #### U AMIC #### [facility] [address] [place] [address] Dr. Sonya Mendoza Bilirubin Ql (U) Negative Normal NEGATIVE [facility] Comment on above: Performed By: #### U AMIC #### [facility] [address] [place] [address] Dr. Sonya Mendoza CAST NONE SEEN Normal NONE SEEN [facility] Comment on above: Performed By: #### U AMIC #### [facility] [address] [place] [address] Dr. Sonya Mendoza Clarity (U) CLEAR Normal CLEAR [facility] Comment on above: Performed By: #### U AMIC #### [facility] [address] [place] [address] Dr. Sonya Mendoza Color (U) LT. YELLOW Normal YELLOW [facility] Comment on above: Performed By: #### U AMIC #### [facility] [address] [place] [address] Dr. Sonya Mendoza Crystals LM Nom (Urine sed) NONE SEEN Normal NONE SEEN [facility] Comment on above: Performed By: #### U AMIC #### [facility] [address] [place] [address] Dr. Sonya Mendoza Epithelial cells LM Ql (Urine sed) NONE SEEN Normal NONE SEEN /RARE [facility] Comment on above: Performed By: #### U AMIC #### [facility] [address] [address] [address] Sonya Mendoza Glucose Ql (U) >1000 Abnormal NEGATIVE [facility] Comment on above: Performed By: #### U AMIC #### [facility] [address] [place] [address] Dr. Sonya Mendoza Hemoglobin Ql (U) TRACE-INTACT Abnormal NEGATIVE [facility] Comment on above: Performed By: #### U AMIC #### [facility] [address] [address] [address] Sonya Mendoza Ketones Ql (U) Negative Normal NEGATIVE [facility] Comment on above: Performed By: #### U AMIC #### [facility] [address] [place] [address] Dr. Sonya Mendoza LEUKOCYTES Negative Normal NEGATIVE [facility] Comment on above: Performed By: #### U AMIC #### [facility] [address] [place] [address] Dr. Sonya Mendoza MUCOUS NONE SEEN Normal NONE SEEN [facility] Comment on above: Performed By: #### U AMIC #### [facility] [address] [place] [address] Dr. Sonya Mendoza Nitrite Ql (U) Negative Normal NEGATIVE [facility] Comment on above: Performed By: #### U AMIC #### [facility] [address] [place] [address] Dr. Sonya Mendoza pH (U) 5.5 [pH] Normal 5-9 [facility] Comment on above: Performed By: #### U AMIC #### [facility] [address] [place] [address] Dr. Sonya Mendoza RBC 2-5 Abnormal 0-2 [facility] Comment on above: Performed By: #### U AMIC #### [facility] [address] [place] [address] Dr. Sonya Mendoza SPEC GRAVITY <=1.005 Abnormal 1.005-<=1.02 5 [facility] Comment on above: Performed By: #### U AMIC #### [facility] [address] [place] [address] Dr. Sonya Mendoza UA PROTEIN Negative Normal NEGATIVE/ TRACE [facility] Comment on above: Performed By: #### U AMIC #### [facility] [address] [address] [address] Sonya Mendoza Urobilinogen Qn (U) 0.2 {Melba'U}/dL Normal 0.2 - 1. 0 [facility] Comment on above: Performed By: #### U AMIC #### [facility] [address] [address] [address] Sonya Mendoza WBC NONE SEEN Normal NONE SEEN [facility] Comment on above: Performed By: #### U AMIC #### [facility] [address] [address] [address] Sonya Mendoza ECHOCARDIO M/2D COMPLETEon 0 08-22-2022 ECHOCARDIO M/2D COMPLETE Patient: TERRY VILLALPANDO Exam Date: 08/22/2022 : 1960 Gender:M Ordering : JENNIFER HERRERA [facility] Admission #: [id number] Family : Order #: [id number] CLICK HERE TO VIEW EXAM ECHOCARDIOGRAM REPORT [...] Mk Gibson M.D. on 08/23/2022 at 16:45 [facility] 08-21-2022 Natriuretic peptide B (Bld) [Mass/Vol] 916.0 pg/mL Critically high <=900.0 [facility] Comment on above: Performed By: #### F T4, PSAD #### [facility] [address] [place] [address] Dr. Sonya Mendoza CBC AUTO DIFFon 08-21-2022 BASO # 0.1 103/ul Normal 0.0-0.1 [facility] Comment on above: Performed By: #### I NFLUAB #### [facility] [address] [place] [address] Dr. Sonya Mendoza Basophils/100 WBC (Bld) 1.0 % Normal 0.2-2.0 [facility] Comment on above: Performed By: #### I NFLUAB #### [facility] [address] [place] [address] Dr. Sonya Mendoza EO # 0.4 103/ul Normal 0.0-0.7 [facility] Comment on above: Performed By: #### I NFLUAB #### [facility] [address] [place] [address] Dr. Sonya Mendoza Eosinophils/100 WBC (Bld) 5.2 % Normal 0.9-7.0 [facility] Comment on above: Performed By: #### I NFLUAB #### [facility] [address] [place] [address] Dr. Sonya Mendoza Erythrocyte distribution width (RBC) [Ratio] 16.3 % Critically high 11.0-15.0 [facility] Comment on above: Performed By: #### I NFLUAB #### [facility] [address] [place] [address] Dr. Sonya Mendoza Hematocrit (Bld) [Volume fraction] 48.2 % Normal 42.0-54.0 [facility] Comment on above: Performed By: #### I NFLUAB #### [facility] [address] [place] [address] Dr. Sonya Mendoza Hemoglobin (Bld) [Mass/Vol] 15.1 g/dL Normal 14.0-18.0 [facility] Comment on above: Performed By: #### I NFLUAB #### [facility] [address] [place] [address] Dr. Sonya Mendoza IG # 0.02 10e3/ul Normal 0.00-0.03 [facility] Comment on above: Performed By: #### I NFLUAB #### [facility] [address] [address] [address] Sonya Mendoza IG % 0.3 % Normal 0.0-0.5 [facility] Comment on above: Performed By: #### I NFLUAB #### [facility] [address] [place] [address] Dr. Sonya Mendoza LYMPH # 0.8 103/ul Critically low 1.2-3.8 [facility] Comment on above: Performed By: #### I NFLUAB #### [facility] [address] [place] [address] Dr. Sonya Mendoza Lymphocytes/100 WBC (Bld) 11.4 % Critically low 20.5-60.0 [facility] Comment on above: Performed By: #### I NFLUAB #### [facility] [address] [place] [address] Dr. Sonya Mendoza MANUAL DIFF REQ NO Normal [facility] Comment on above: Performed By: #### I NFLUAB #### [facility] [address] [place] [address] Dr. Sonya Mendoza MCH (RBC) [Entitic mass] 28.9 pg Normal 25.9-34.0 [facility] Comment on above: Performed By: #### I NFLUAB #### [facility] [address] [place] [address] Dr. Sonya Mendoza MCHC (RBC) [Mass/Vol] 31.3 g/dL Normal 29.9-35.2 [facility] Comment on above: Performed By: #### I NFLUAB #### [facility] [address] [place] [address] Dr. Sonya Mendoza MCV (RBC) [Entitic vol] 92.2 fL Normal 80.0-94.0 [facility] Comment on above: Performed By: #### I NFLUAB #### [facility] [address] [place] [address] Dr. Sonya Mendoza MONO # 0.7 103/ul Normal 0.3-0.8 [facility] Comment on above: Performed By: #### I NFLUAB #### [facility] [address] [place] [address] Dr. Sonya Mendoza Monocytes/100 WBC (Bld) 10.1 % Normal 1.7-12.0 [facility] Comment on above: Performed By: #### I NFLUAB #### [facility] [address] [place] [address] Dr. Sonya Mendoza NEUT # 4.8 103/ul Normal 1.4-6.5 [facility] Comment on above: Performed By: #### I NFLUAB #### [facility] [address] [place] [address] Dr. Sonya Mendoza Neutrophils/100 WBC (Bld) 72.0 % Normal 43.0-75.0 [facility] Comment on above: Performed By: #### I NFLUAB #### [facility] [address] [place] [address] Dr. Sonya Mendoza Platelet mean volume (Bld) [Entitic vol] 11.5 fL Normal 9.5-13.5 [facility] Comment on above: Performed By: #### I NFLUAB #### [facility] [address] [place] [address] Dr. Sonya Mendoza PLT 144 103/ul Critically low 150-450 [facility] Comment on above: Performed By: #### I NFLUAB #### [facility] [address] [place] [address] Dr. Sonya Mendoza RBC 5.23 106/ul Normal 4.70-6.10 [facility] Comment on above: Performed By: #### I NFLUAB #### [facility] [address] [place] [address] Dr. Sonya Mendoza WBC 6.7 103/ul Normal 4.0-11.0 [facility] Comment on above: Performed By: #### I NFLUAB #### [facility] [address] [address] [address] Sonya Mendoza DIGOXINon 08-21-2022 DIG 0.4 ng/mL Critically low 0.9-2.0 [facility] Comment on above: Performed By: #### F T4, PSAD #### [facility] [address] [address] [address] Sonya Mendoza GLYCOHEMOGLOBIN A1Con 2022 ADA RECOMMENDATION SEE BELOW Normal [facility] Comment on above: Result Comment: ADA RECOMMENDED LIMIT 4.0 - 6.0 ADA THERAPEUTIC TARGET < 7.0 ACTION SUGGESTED > 7.0 Performed By: #### F T4, PSAD #### [facility] [address] [address] [address] Sonya Mendoza Glucose [Mass/Vol] 206 mg/dL Normal [facility] Comment on above: Performed By: #### F T4, PSAD #### [facility] [address] [address] [address] Sonya Mendoza HbA1c (Bld) [Mass fraction] 8.8 % Critically high 4.5-6.2 [facility] Comment on above: Performed By: #### F T4, PSAD #### [facility] [address] [address] [address] Sonya Mendoza LDHon 08-21-2022 LDH 496 U/L Critically high 85-227 [facility] Comment on above: Performed By: #### F T4, PSAD #### [facility] [address] [address] [address] Sonya Mendoza Transplant SW Assessment Upd ateon 08-16-2022 Transplant SW Assessment Update Note Body SW left pt a message to follow up and check in and complete intermacs and KCCQ-12. SW to follow up with pt. 'Scores and Scales' Signatures Electronically signed by : WOJCIECH Nicholas; Aug 17 2022 2:23PM EST (Author) Normal [employer] [facility] Flowsheeton 08-15-2022 [facility] Flowsheet 4.8 1 MG-Cardiol ogy-CM C [facility] [address] [place] Work Phone: [facility] Flowsheet 9600 1 MG-Cardiol ogy-CM C [facility] [address] [place] Work Phone: [facility] Flowsheet 4.9 1 MG-Cardiol ogy-CM C [facility] [address] [place] Work Phone: [facility] Flowsheet 5.9 1 MG-Cardiol ogy-CM C [facility] [address] [place] Work Phone: [facility] Flowsheet no active alarms MG-C ardiology-CM C [facility] [address] [place] Work Phone: Office Visit [...] Peptide BNP; Status:Active - Retrospective Authorization; Requested for:[id number]; Patient Instructions -Please bring a list of your medications to every visit. -Please bring your VAD equipment to your next visit. -If you have any questions or concerns, please contact the [facility] office at [phone]. If it is after hours and it is an emergency, please page the [facility] pager by calling [phone] and ask them to page [phone]. Please give the wash oil pump operator your return number in order for the team to reach you. -Follow up in 6 months with SW. -Schedule an echo (heart ultrasound). Call [phone] or schedule at the front end wheel loader operator. -Get labs drawn today (CBC, CMP, BNP, [...] device. 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 Lay Vaca Mr. 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 He is co-managed by the team at [facility] (Dr Yi). Has not been seen by [facility] in a couple of years he says. [...] (530.81) (K2 (more content not included)... Normal [employer] Tobacco Screening.on 023 Fall risk assessment a) No falls within the last year EV-Uosnweimxj-IZ C [employer] [address] [place] Work Phone: Tobacco use status CPHS b) No WV-Xlxyewphib-KW C [employer] [address] [place] Work Phone: GLYCOHEMOGLOBIN A1Con 2022 ADA RECOMMENDATION SEE BELOW Normal [facility] Comment on above: Result Comment: ADA RECOMMENDED LIMIT 4.0 - 6.0 ADA THERAPEUTIC TARGET < 7.0 ACTION SUGGESTED > 7.0 Performed By: #### A 1C #### [facility] [address] [place] [address] Dr. Sonya Mendoza Glucose [Mass/Vol] 169 mg/dL Normal [facility] Comment on above: Performed By: #### A 1C #### [facility] [address] [address] [address] Sonya Mendoza HbA1c (Bld) [Mass fraction] 7.5 % Critically high 4.5-6.2 [facility] Comment on above: Performed By: #### A 1C #### [facility] [address] [place] [address] Dr. Sonya Mendoza PROF CHEM 8 (BAS METB)on Anion gap [Moles/Vol] 12.3 mmol/L Normal [facility] Comment on above: Performed By: #### I NFLUAB #### [facility] [address] [address] [address] Sonya Mendoza Calcium [Mass/Vol] 9.2 mg/dL Normal 8.5-10.1 [facility] Comment on above: Performed By: #### I NFLUAB #### [facility] [address] [place] [address] Dr. Sonya Mendoza Chloride [Moles/Vol] 101 mmol/L Normal 98-107 [facility] Comment on above: Performed By: #### I NFLUAB #### [facility] [address] [address] [address] Sonya Mendoza CO2 [Moles/Vol] 27.0 mmol/L Normal 21.0-32.0 [facility] Comment on above: Performed By: #### I NFLUAB #### [facility] [address] [place] [address] Dr. Sonya Mendoza Creatinine [Mass/Vol] 1.27 mg/dL Normal 0.70-1.30 [facility] Comment on above: Performed By: #### I NFLUAB #### [facility] [address] [address] [address] Sonya Mendoza EGFR-AF LAO >60 Normal >=60 [facility] Comment on above: Performed By: #### I NFLUAB #### [facility] [address] [address] [address] Sonya Mendoza EGFR-NON AF LAO 58 mL/min/1.73m2 Critically low >=60 [facility] Comment on above: Performed By: #### I NFLUAB #### [facility] [address] [address] [address] Sonya Mendoza Glucose [Mass/Vol] 249 mg/dL Critically high 74-106 [facility] Comment on above: Performed By: #### I NFLUAB #### [facility] [address] [address] [address] Sonya Mendoza Potassium [Moles/Vol] 4.3 mmol/L Normal 3.5-5.1 [facility] Comment on above: Performed By: #### I NFLUAB #### [facility] [address] [address] [address] Sonya Mendoza Sodium [Moles/Vol] 136 mmol/L Normal 136-145 [facility] Comment on above: Performed By: #### I NFLUAB #### [facility] [address] [address] [address] Sonya Mendoza Urea nitrogen [Mass/Vol] 31.0 mg/dL Critically high 7.0-18.0 [facility] Comment on above: Performed By: #### I NFLUAB #### [facility] [address] [address] [address] Sonya Mendoza Urea nitrogen/Creatinine [Mass ratio] 24.4 mg/mg Normal [facility] Comment on above: Performed By: #### I NFLUAB #### [facility] [address] [address] [address] Sonya Mendo[facility] SARS-CoV-2 (COVID-19) RNA GALILEO+probe Ql (Unsp spec) Not detected Normal NOT DETECTED [facility] Comment on above: Result Comment: When [...] for this test is supported by the [place] of Health and Human Service's declaration that [...] Performed By: #### F T4, PSAD #### [facility] [address] [place] [address] Dr. Sonya Mendoza INFLUENZA A AND B AGon 04-01 INFLUANEGH SEE BELOW Normal [facility] Comment on above: Result Comment: Nega tive for Flu A protein angiten. Infection due to Flu A cannot be ruled out. Flu A angiten in the sample may be below the detection limit of the test. Performed By: #### I NFLUAB #### [facility] [address] [place] [address] Dr. Sonya Mendoza INFLUBNEGH SEE BELOW Normal [facility] Comment on above: Result Comment: Nega tive for Flu B protein antigen. Infection due to Flu B cannot be ruled out. Flu B antigen in the sample may be below the detection limit of the test. Performed By: #### I NFLUAB #### [facility] [address] [place] [address] Dr. Sonya Mendoza INFLUENZA A AG Negative Normal NEGATIVE SEE COMMENT [facility] Comment on above: Performed By: #### I NFLUAB #### [facility] [address] [address] [address] Sonya Mendoza INFLUENZA B AG Negative Normal NEGATIVE SEE COMMENT [facility] Comment on above: Performed By: #### I NFLUAB #### [facility] [address] [address] [address] Sonya Mendoza INTERNAL CONTROLS Within Normal Limits Normal Wi thin Normal Limits [facility] Comment on above: Performed By: #### I NFLUAB #### [facility] [address] [address] [address] Sonya Mendoza XR CHEST 1 Von [...] by: CHADWICK SHERMAN Date: 2022-04-01 12:13 Normal [facility] FREE T4on 01-30-2022 Free T4 [Mass/Vol] 1.32 ng/dL Normal 0.76-1.46 [facility] Comment on above: Performed By: #### I NFLUAB #### [facility] [address] [place] [address] Dr. Sonya Mendoza GLYCOHEMOGLOBIN A1Con 2021 ADA RECOMMENDATION SEE BELOW Normal [facility] Comment on above: Result Comment: ADA RECOMMENDED LIMIT 4.0 - 6.0 ADA THERAPEUTIC TARGET < 7.0 ACTION SUGGESTED > 7.0 Performed By: #### F T4, PSAD #### [facility] [address] [place] [address] Dr. Sonya Mendoza Glucose [Mass/Vol] 220 mg/dL Normal [facility] Comment on above: Performed By: #### F T4, PSAD #### [facility] [address] [place] [address] Dr. Sonya Mendoza HbA1c (Bld) [Mass fraction] 9.3 % Critically high 4.5-6.2 [facility] Comment on above: Performed By: #### F T4, PSAD #### [facility] [address] [place] [address] Dr. Sonya Mendoza PROF CHEM 8 (BAS METB)on Anion gap [Moles/Vol] 16.9 mmol/L Normal [facility] Comment on above: Performed By: #### F T4, PSAD #### [facility] [address] [place] [address] Dr. Sonya Mendoza Calcium [Mass/Vol] 8.6 mg/dL Normal 8.5-10.1 [facility] Comment on above: Performed By: #### F T4, PSAD #### [facility] [address] [place] [address] Dr. Sonya Mendoza Chloride [Moles/Vol] 101 mmol/L Normal 98-107 [facility] Comment on above: Performed By: #### F T4, PSAD #### [facility] [address] [place] [address] Dr. Sonya Mendoza CO2 [Moles/Vol] 23.5 mmol/L Normal 21.0-32.0 [facility] Comment on above: Performed By: #### F T4, PSAD #### [facility] [address] [place] [address] Dr. Sonya Mendoza Creatinine [Mass/Vol] 1.75 mg/dL Critically high 0.70-1.30 [facility] Comment on above: Performed By: #### F T4, PSAD #### [facility] [address] [place] [address] Dr. Sonya Mendoza EGFR-AF LAO 48 mL/min/1.73m2 Critically low >=60 [facility] Comment on above: Performed By: #### F T4, PSAD #### [facility] [address] [place] [address] Dr. Sonya Mendoza EGFR-NON AF LAO 40 mL/min/1.73m2 Critically low >=60 [facility] Comment on above: Performed By: #### F T4, PSAD #### [facility] [address] [place] [address] Dr. Sonya Mendoza Glucose [Mass/Vol] 292 mg/dL Critically high 74-106 [facility] Comment on above: Performed By: #### F T4, PSAD #### [facility] [address] [place] [address] Dr. Sonya Mendoza Potassium [Moles/Vol] 4.4 mmol/L Normal 3.5-5.1 [facility] Comment on above: Performed By: #### F T4, PSAD #### [facility] [address] [place] [address] Dr. Sonya Mendoza Sodium [Moles/Vol] 137 mmol/L Normal 136-145 [facility] Comment on above: Performed By: #### F T4, PSAD #### [facility] [address] [place] [address] Dr. Sonya eMndoza Urea nitrogen [Mass/Vol] 28.0 mg/dL Critically high 7.0-18.0 [facility] Comment on above: Performed By: #### F T4, PSAD #### [facility] [address] [place] [address] Dr. Sonya Mendoza Urea nitrogen/Creatinine [Mass ratio] 16.0 mg/mg Normal [facility] Comment on above: Performed By: #### F T4, PSAD #### [facility] [address] [place] [address] Dr. Sonya Mendoza TSHon 01-30-2022 TSH 4.314 uIU/mL Critically high 0.358-3.740 [facility] Comment on above: Performed By: #### F T4, PSAD #### [facility] [address] [place] [address] Dr. Sonya Mendoza LVAD Flowsheeton 01-25-2022 LVAD Flowsheet 5.4 1 MG-Cardiol ogy-CM C [facility] [address] [place] Work Phone: [facility]AD Flowsheet 9600 1 MG-Cardiol ogy-CM C [facility] [address] [place] Work Phone: [facility] Flowsheet 4.7 1 MG-Cardiol ogy-CM C [facility] [address] [place] Work Phone: [facility] Flowsheet 6.4 1 MG-Cardiol ogy-CM C [facility] [address] [place] Work Phone: LVAD Flowsheet POWER DISCONNECT and LOW VOLTAGE ADVISORY alarms; VAD OFF alarm on 01/10/2022 MY-Bmxnnspanw-YP C [facility] [address] [place] Work Phone: Office Visit (Cardiology)on 01-25-2022 Follow-up visit Diagnoses/Problems Assessed Anticoagulant long-term use (V58.61) (Z79.01) LVAD (left ventricular assist device) present (V43.21) (Z95.811) Nonischemic cardiomyopathy (425.4) (I42.8) Systolic heart failure, ACC/AHA stage D (428.20) (I50.20) Orders Electrolyte and fluid disorder Complete Blood Count; Status:Active; Requested for:[id number]; Comprehensive Metabolic Panel; Status:Active; Requested for:[id number]; Electrolyte and fluid disorder, Shortness of breath LDH; Status:Active; Requested for:[id number]; Encounter for monitoring digoxin therapy, Systolic heart failure, ACC/AHA stage D Digoxin Level, Serum; Status:Active; Requested for:[id number]; HLD (hyperlipidemia) Lipid Panel; Status:Active; Requested for:[id number]; HLD (hyperlipidemia), LVAD (left ventricular assist device) [...] concerns, please contact the LVAD office at [phone], option 3 or the direct line at [phone]. Please state that you are an LVAD patient. If it is after hours and it is an emergency, please page the LVAD pager by calling [phone] #[phone]. -Follow up in on May 02 at 1:[address] Cooper Vaca in [place] [address]. -Start lisinopril 5 mg daily for [...] device. 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 Lay Vaca Mr. 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 He is co-managed by the team at [facility] (Dr Yi). Has not been seen by [facility] in a couple of years he says. [...] therapy (V58.83, (more content not included)... Normal [employer] Tobacco Screening.on 022 Fall risk assessment a) No falls within the last year BF-Gjexltewgs-FW C [employer] [address] [place] Work Phone: Tobacco use status CPHS b) No ZA-Krjdyoskqx-DV [facility] [address] [place] Work Phone: Laboratory - Chemistry and C hemistry - challengeon 12-28-2021 Albumin BCP dye [Mass/Vol] 4.2 g/dL 3.4 - 5.0 JO-Mcjgrrbkyw-IQ C [facility] [address] [place] Work Phone: ALP [Catalytic activity/Vol] 77 U/L 33 - 136 FB-Jygppjpwzx-JK C [facility] [address] [place] Work Phone: ALT With P-5'-P [Catalytic activity/Vol] 14 U/L 10 - 52 LB-Foqcxemjgp-FA C [facility] [address] [place] Work Phone: Comment on above: Patients treated wit h Sulfasalazine may generate falsely decreased results for ALT. Anion gap [Moles/Vol] 16 mmol/L 10 - 20 MG- Cardiology-CM [facility] [address] [place] Work Phone: AST With P-5'-P [Catalytic activity/Vol] 22 U/L 9 - 39 OG-Invfuotwuq-XW C [facility] [address] [place] Work Phone: Bilirubin [Mass/Vol] 1.2 mg/dL 0.0 - 1.2 MG-C ardiology-CM C [facility] [address] [place] Work Phone: Calcium [Mass/Vol] 9.2 mg/dL 8.6 - 10.6 [facility] [address] [place] Work Phone: Chloride [Moles/Vol] 100 mmol/L 98 - 107 MG-C ardiology-CM C [facility] [address] [place] Work Phone: CO2 [Moles/Vol] 21 mmol/L 21 - 32 MG-Cardio logy-CM C [facility] [address] [place] Work Phone: Creatinine [Mass/Vol] 1.26 mg/dL See Below MG- Cardiology-CM C [facility] [address] [place] Work Phone: Comment on above: Reference Range: 0.5 0 - 1.30 Glucose [Mass/Vol] 233 mg/dL above high threshold 74 - 99 AS-Kpehdnziie-VS [facility] [address] [place] Work Phone: LDH [Catalytic activity/Vol] 410 U/L above high threshold 84 - 246 XT-Lkycyypwmb-LT C [facility] [address] [place] Work Phone: Potassium [Moles/Vol] 5.1 mmol/L 3.5 - 5.3 MG- Cardiology-CM C [facility] [address] [place] Work Phone: Protein [Mass/Vol] 8.1 g/dL 6.4 - 8.2 MG-Car diology-CM [facility] [address] [place] Work Phone: Sodium [Moles/Vol] 132 mmol/L below low threshold 136 - 145 KO-Nzqrjodwgs-HT [facility] [address] [place] Work Phone: Urea nitrogen [Mass/Vol] 24 mg/dL above high threshold 6 - 23 DO-Obbjgrepxz-JA [facility] [address] [place] Work Phone: Glucose [Mass/Vol] 167 mg/dL above high threshold 74 - 99 XH-Nzkbeuitlk-VJ [facility] [address] [place] Work Phone: Laboratory - Coagulationon 0 12-28-2021 aPTT Coag (PPP) [Time] 37 s 26 - 39 MS-Kyoqroldah-IZ [facility] [address] [place] Work Phone: Comment on above: THE APTT IS NO LONGE R USED FOR MONITORING UNFRACTIONATED HEPARIN THERAPY. FOR MONITORING HEPARIN THERAPY, USE THE HEPARIN ASSAY. INR Coag (PPP) [Relative time] 2.7 {INR} above high threshold 0.9 - 1.1 NG-Tcxlsyjtff-UN [facility] [address] [place] Work Phone: PT Coag (PPP) [Time] 31.1 s above high threshold 9.8 - 13.4 AM-Qxosooljaj-II [facility] [address] [place] Work Phone: Laboratory - Hematology and Cell countson 12-28-2021 Erythrocyte distribution width (RBC) [Ratio] 17.0 % above high threshold See Below LH-Nmksdbaphh-QN [facility] [address] [place] Work Phone: Comment on above: Reference Range: 11. 5 - 14.5 Hematocrit (Bld) [Volume fraction] 45.4 % See Below MG-Cardiology- CM [facility] [address] [place] Work Phone: Comment on above: Reference Range: 41. 0 - 52.0 Hemoglobin (Bld) [Mass/Vol] 13.7 g/dL See Below WE-Eqwwmjfnpu-OK [facility] [address] [place] Work Phone: Comment on above: Reference Range: 13. 5 - 17.5 MCHC (RBC) [Mass/Vol] 30.2 g/dL below low threshold See Below PN-Qwiejezxzl-JX [facility] [address] [place] Work Phone: Comment on above: Reference Range: 32. 0 - 36.0 MCV (RBC) [Entitic vol] 88 fL 80 - 100 RW-Ykxlwlqtif-WK [facility] [address] [place] Work Phone: Platelets (Bld) [#/Vol] 164 10*3/uL 150 - 450 GK-Ogxjmnkdyg-UQ [facility] [address] [place] Work Phone: RBC (Bld) [#/Vol] 5.18 {x10E12/L} See Below MG -Cardiology-CM [facility] [address] [place] Work Phone: Comment on above: Reference Range: 4.5 0 - 5.90 WBC (Bld) [#/Vol] 7.5 10*3/uL 4.4 - 11.3 MG-Car diology-CM [facility] [address] [place] Work Phone: Magnesium, Serumon Magnesium [Mass/Vol] 2.15 mg/dL See Below MG-C ardiology-CM [facility] [address] [place] Work Phone: Comment on above: Reference Range: 1.6 0 - 2.40 No Panel Informationon 12-28 65 {mL/min/1.73m2} >90 MG-Car diology-CM [facility] [address] [place] Work Phone: Comment on above: CALCULATIONS OF ERICA MATED GFR ARE PERFORMED USING THE 2020 CKD-EPI STUDY REFIT EQUATION WITHOUT THE RACE VARIABLE FOR THE IDMS-TRACEABLE CREATININE METHODS.https://jasn.asnjournals.org/content// N.6390662064 0.0 {/100_WBC} 0.0-0.0 MG-Cardiol ogy-CM [facility] [address] [place] Work Phone: CT Biopsy Bone Trocar/Needle Superficialon 12-27-2021 CT Guidance for superficial biopsy of Bone Normal AK-Bnimjrpsev-YL [facility] [address] [place] Work Phone: Complete Blood Count + Diffe rentialon 12-27-2021 Basophils/100 WBC (Bld) 1.5 % 0.0 - 2.0 WT-Gmicegodfa-KF [facility] [address] [place] Work Phone: Erythrocyte distribution width (RBC) [Ratio] 17.0 % above high threshold See Below OL-Kgwnxvwjhc-OK [facility] [address] [place] Work Phone: Comment on above: Reference Range: 11. 5 - 14.5 Hematocrit (Bld) [Volume fraction] 43.2 % See Below MG-Cardiology- CM [facility] [address] [place] Work Phone: Comment on above: Reference Range: 41. 0 - 52.0 Hemoglobin (Bld) [Mass/Vol] 13.0 g/dL below low threshold See Below KJ-Sbdmnleelz-VZ [facility] [address] [place] Work Phone: Comment on above: Reference Range: 13. 5 - 17.5 Lymphocytes/100 WBC (Bld) 16.7 % See Below ZV-Vwmdvedhuu-LJ [facility] [address] [place] Work Phone: Comment on above: Reference Range: 13. 0 - 44.0 MCHC (RBC) [Mass/Vol] 30.1 g/dL below low threshold See Below EZ-Nntpftfpnt-DE [facility] [address] [place] Work Phone: Comment on above: Reference Range: 32. 0 - 36.0 MCV (RBC) [Entitic vol] 90 fL 80 - 100 ID-Hbcndkunri-BX [facility] [address] [place] Work Phone: Monocytes/100 WBC (Bld) 14.3 % 2.0 - 10.0 SE-Qoleixffna-IZ [facility] [address] [place] Work Phone: Neutrophils/100 WBC (Bld) 59.8 % See Below KK-Mhucybsrmm-DH [facility] [address] [place] Work Phone: Comment on above: Reference Range: 40. 0 - 80.0 Platelets (Bld) [#/Vol] 145 10*3/uL below low threshold 150 - 450 JJ-Izlawgxjkn-ZZ [facility] [address] [place] Work Phone: RBC (Bld) [#/Vol] 4.82 {x10E12/L} See Below MG -Cardiology-CM [facility] [address] [place] Work Phone: Comment on above: Reference Range: 4.5 0 - 5.90 WBC (Bld) [#/Vol] 5.3 10*3/uL 4.4 - 11.3 MG-Car diology-CM [facility] [address] [place] Work Phone: Complete Blood Count + Differential 0.08 {x10E9/L} See Below ML-Jtacafkciv-TH [facility] [address] [place] Work Phone: Comment on above: Reference Range: 0.0 0 - 0.10 Complete Blood Count + Differential 0.40 {x10E9/L} See Below RH-Buvpxwdpmc-TO [facility] [address] [place] Work Phone: Comment on above: Reference Range: 0.0 0 - 0.70 Complete Blood Count + Differential 0.76 {x10E9/L} See Below SK-Npgdgsnizb-LJ [facility] [address] [place] Work Phone: Comment on above: Reference Range: 0.1 0 - 1.00 Complete Blood Count + Differential 0.89 {x10E9/L} below low threshold See Below LE-Iofbyqmekp-TP [facility] [address] [place] Work Phone: Comment on above: Reference Range: 1.2 0 - 4.80 Complete Blood Count + Differential 3.18 {x10E9/L} See Below IB-Ckrxklrlch-UG [facility] [address] [place] Work Phone: Comment on above: Reference Range: 1.2 0 - 7.70 Complete Blood Count + Differential 7.5 % 0.0 - 6.0 PY-Gklsufggoz-CN [facility] [address] [place] Work Phone: Complete Blood Count + Differential 0.2 % 0.0 - 0.9 UB-Oujtzxfomi-XR [facility] [address] [place] Work Phone: Comment on above: Immature Granulocyte Count (IG) includes promyelocytes, myelocytes and metamyelocytes but does not include bands. Percent differential counts (%) should be interpreted in the context of the absolute cell counts (cells/L). Complete Blood Count + Differential 0.0 {/100_WBC} 0.0-0.0 MY-Gyyhymjfct-JV [facility] [address] [place] Work Phone: Digoxin Level, Serumon 12-27 Digoxin [Mass/Vol] 0.49 ng/mL below low threshold See Below VC-Ywzctmbkzj-NZ [facility] [address] [place] Work Phone: Comment on above: Reference Range: 0.8 0 - 2.00 Heparin assay, UFHon 022 Heparin unfractionated Chromogenic method Qn (PPP) 0.2 {IU/mL} ST-Ccgwlubztz-IF [facility] [address] [place] Work Phone: Comment on above: The therapeutic refe rence range for UFH may be either 0.3-0.6 IU/mL or 0.3-0.7 IU/mL based on the clinical setting for anticoagulant therapy and the associated nomogram used. For heparin dosing guidelines based on clinical scenario and Heparin Assay results, please refer to local Pharmacy and the [facility] Guidelines for Anticoagulation therapy available on the [facility] intranet at:[email or web address] _[facility]_Guidelines_for_Anticoagu.aspx Heparin unfractionated Chromogenic method Qn (PPP) 0.3 {IU/mL} YF-Aeyhewrvcn-VD [facility] [address] [place] Work Phone: Comment on above: The therapeutic refe rence range for UFH may be either 0.3-0.6 IU/mL or 0.3-0.7 IU/mL based on the clinical setting for anticoagulant therapy and the associated nomogram used. For heparin dosing guidelines based on clinical scenario and Heparin Assay results, please refer to local Pharmacy and [facility] Guidelines for Anticoagulation therapy available on the [facility] intranet at:[email or web address] _[email or web address]_Guidelines_for_[email or web address].aspx Laboratory - Chemistry and C hemistry - challengeon 12-27-2021 Glucose [Mass/Vol] 208 mg/dL above high threshold 74 - 99 VU-Czkmoytozb-FQ [facility] [address] [place] Work Phone: Glucose [Mass/Vol] 158 mg/dL above high threshold 74 - 99 UV-Bjkmqrinba-RE [facility] [address] [place] Work Phone: Glucose [Mass/Vol] 102 mg/dL above high threshold 74 - 99 ZD-Rvcwbdlvnf-YR [facility] [address] [place] Work Phone: Albumin BCP dye [Mass/Vol] 4.0 g/dL 3.4 - 5.0 JB-Gnxkegcmbm-AM [facility] [address] [place] Work Phone: ALP [Catalytic activity/Vol] 67 U/L 33 - 136 UP-Dnhgfkavcj-QQ [facility] [address] [place] Work Phone: ALT With P-5'-P [Catalytic activity/Vol] 13 U/L 10 - 52 GT-Zrcnvincvm-JZ [facility] [address] [place] Work Phone: Comment on above: Patients treated wit h Sulfasalazine may generate falsely decreased results for ALT. Anion gap [Moles/Vol] 13 mmol/L 10 - 20 MG- Cardiology-CM [facility] [address] [place] Work Phone: AST With P-5'-P [Catalytic activity/Vol] 22 U/L 9 - 39 LO-Xcuzbggvqe-YE [facility] [address] [place] Work Phone: Bilirubin [Mass/Vol] 1.0 mg/dL 0.0 - 1.2 MG-C ardiology-CM [facility] [address] [place] Work Phone: Calcium [Mass/Vol] 9.0 mg/dL 8.6 - 10.6 MG-Car diology-CM [facility] [address] [place] Work Phone: Chloride [Moles/Vol] 103 mmol/L 98 - 107 MG-C ardiology-CM [facility] [address] [place] Work Phone: CO2 [Moles/Vol] 24 mmol/L 21 - 32 MG-Cardio logy-CM [facility] [address] [place] Work Phone: Creatinine [Mass/Vol] 1.19 mg/dL See Below MG- Cardiology-CM [facility] [address] [place] Work Phone: Comment on above: Reference Range: 0.5 0 - 1.30 Glucose [Mass/Vol] 122 mg/dL above high threshold 74 - 99 XJ-Xvmxetefah-OE [facility] [address] [place] Work Phone: LDH [Catalytic activity/Vol] 386 U/L above high threshold 84 - 246 LG-Nemozjcoqz-JI [facility] [address] [place] Work Phone: Potassium [Moles/Vol] 4.3 mmol/L 3.5 - 5.3 MG- Cardiology-CM [facility] [address] [place] Work Phone: Protein [Mass/Vol] 7.4 g/dL 6.4 - 8.2 MG-Car diology-CM [facility] [address] [place] Work Phone: Sodium [Moles/Vol] 136 mmol/L 136 - 145 MG-Car diology-CM [facility] [address] [place] Work Phone: Urea nitrogen [Mass/Vol] 22 mg/dL 6 - 23 AD-Blksozcuip-LM [facility] [address] [place] Work Phone: Laboratory - Coagulationon 0 12-27-2021 aPTT Coag (PPP) [Time] 46 s above high threshold 26 - 39 ZB-Vjzjsabyjj-WB [facility] [address] [place] Work Phone: Comment on above: THE APTT IS NO LONGE R USED FOR MONITORING UNFRACTIONATED HEPARIN THERAPY. FOR MONITORING HEPARIN THERAPY, USE THE HEPARIN ASSAY. INR Coag (PPP) [Relative time] 2.6 {INR} above high threshold 0.9 - 1.1 TT-Dhqgkacjae-GK [facility] [address] [place] Work Phone: PT Coag (PPP) [Time] 30.4 s above high threshold 9.8 - 13.4 ZZ-Xzfsfmxxix-AE [facility] [address] [place] Work Phone: INR Coag (PPP) [Relative time] 2.7 {INR} above high threshold 0.9 - 1.1 PG-Qxjoubngxn-RP [facility] [address] [place] Work Phone: INR Coag (PPP) [Relative time] Canceled CT-Dyfycgoswq-UG [facility] [address] [place] Work Phone: PT Coag (PPP) [Time] 32.0 s above high threshold 9.8 - 13.4 MM-Fxgatdgxxv-XK [facility] [address] [place] Work Phone: PT Coag (PPP) [Time] Canceled MG-C ardiology-CM [facility] [address] [place] Work Phone: Laboratory - Hematology and Cell countson 12-27-2021 Granulocytes/100 WBC (Bld) 66 % ML-Ngcefyocev-PR [facility] [address] [place] Work Phone: Lymphocytes/100 WBC (Bld) 13 % TE-Gflbyxhups-WU [facility] [address] [place] Work Phone: Monocytes/100 WBC (Bld) 8 % ZK-Xgeywxlixj-LN [facility] [address] [place] Work Phone: No Panel Informationon 12-27 SEE BELOW MG-Cardiology- CM [facility] [address] [place] Work Phone: Comment on above: Genetics test res ults are available electronically in [facility] Community Record. Results will be sent on a separate report.In the [facility], go to Community record -> click on Clinical documents -> go to Genetics Studies tab for results. This test is a multi color, whole blood lysis assay. It was developed and its performance characteristics determined by the Department of Pathology, [facility], and has not been cleared or [...] CD43, CD23, CD1c, CD25, CD180, CD11c, CD79b, [place], Lambda, IgD. Plasma cells are CD1 9-, CD45-, CD56+, CD138+, FQ287yac, CD20 very dim, CD43+ and kappa+ by [...] population identified. 0.20 % MG-Cardiology- CM [facility] [address] [place] Work Phone: 27 {%_of_Lymph} MG-Cardio logy-CM [facility] [address] [place] Work Phone: Comment on above: PolyclonalKappa/Hinojosa da= 59:35 ([id number]) 17 {%_of_Lymph} MG-Cardio logy-CM [facility] [address] [place] Work Phone: 30 {%_of_Lymph} MG-Cardio logy-CM [facility] [address] [place] Work Phone: 24 {%_of_Lymph} MG-Cardio logy-CM [facility] [address] [place] Work Phone: 100,000 - 150,381 MG-Card iology-CM [facility] [address] [place] Work Phone: 6.96 {x10E9/L} MG-Cardiol ogy-CM [facility] [address] [place] Work Phone: Acceptable MG-Cardiology- CM [facility] [address] [place] Work Phone: Comment on above: Flow cytometry resul ts should be interpreted in the context of morphology. Flow cytometry findings may be unreliable due to sampling issues, differential loss or recovery of cell populations ex vivo, or low viability. Bone Marrow MG-Cardiology -CM [facility] [address] [place] Work Phone: H.MEYERSON MG-Cardiology- CM [facility] [address] [place] Work Phone: Comment on above: By her/his signature above, the Pathologist listed as making the final interpretation certifies that she/he has personally reviewed this case. LOW GRADE PANEL MG-Cardio logy-CM [facility] [address] [place] Work Phone: MG-Cardiology- CM [facility] [address] [place] Work Phone: 70 {mL/min/1.73m2} >90 MG-Car diology-CM [facility] [address] [place] Work Phone: Comment on above: CALCULATIONS OF ERICA MATED GFR ARE PERFORMED USING THE 2020 CKD-EPI STUDY REFIT EQUATION WITHOUT THE RACE VARIABLE FOR THE IDMS-TRACEABLE CREATININE METHODS.https://jasn.asnjournals.org/content// N.2285434107 Complete Blood Count + Diffe alinaon 12-26-2021 Basophils/100 WBC (Bld) 1.3 % 0.0 - 2.0 KO-Yfzecgqcvg-SH [facility] [address] [place] Work Phone: Erythrocyte distribution width (RBC) [Ratio] 16.8 % above high threshold See Below IH-Mkdcroxkgn-HW [facility] [address] [place] Work Phone: Comment on above: Reference Range: 11. 5 - 14.5 Hematocrit (Bld) [Volume fraction] 43.8 % See Below MG-Cardiology- CM [facility] [address] [place] Work Phone: Comment on above: Reference Range: 41. 0 - 52.0 Hemoglobin (Bld) [Mass/Vol] 12.9 g/dL below low threshold See Below VD-Gwdfexcunq-AT [facility] [address] [place] Work Phone: Comment on above: Reference Range: 13. 5 - 17.5 Lymphocytes/100 WBC (Bld) 16.1 % See Below IT-Takxpfgfrm-IP [facility] [address] [place] Work Phone: Comment on above: Reference Range: 13. 0 - 44.0 MCHC (RBC) [Mass/Vol] 29.5 g/dL below low threshold See Below MN-Ilzsryqgrq-JR [facility] [address] [place] Work Phone: Comment on above: Reference Range: 32. 0 - 36.0 MCV (RBC) [Entitic vol] 91 fL 80 - 100 KK-Msaraaoacw-PF [facility] [address] [place] Work Phone: Monocytes/100 WBC (Bld) 13.8 % 2.0 - 10.0 BI-Yklskitwaz-OF [facility] [address] [place] Work Phone: Neutrophils/100 WBC (Bld) 62.3 % See Below FK-Nsirkipava-WX [facility] [address] [place] Work Phone: Comment on above: Reference Range: 40. 0 - 80.0 Platelets (Bld) [#/Vol] 154 10*3/uL 150 - 450 EH-Pykjwmptbq-SK [facility] [address] [place] Work Phone: RBC (Bld) [#/Vol] 4.82 {x10E12/L} See Below MG -Cardiology-CM [facility] [address] [place] Work Phone: Comment on above: Reference Range: 4.5 0 - 5.90 WBC (Bld) [#/Vol] 5.4 10*3/uL 4.4 - 11.3 MG-Car diology-CM [facility] [address] [place] Work Phone: Complete Blood Count + Differential 0.07 {x10E9/L} See Below WQ-Sdnjlskdiq-JH [facility] [address] [place] Work Phone: Comment on above: Reference Range: 0.0 0 - 0.10 Complete Blood Count + Differential 0.33 {x10E9/L} See Below SU-Frdwfzpvpw-CK [facility] [address] [place] Work Phone: Comment on above: Reference Range: 0.0 0 - 0.70 Complete Blood Count + Differential 0.75 {x10E9/L} See Below GD-Ekflnltqzu-YU [facility] [address] [place] Work Phone: Comment on above: Reference Range: 0.1 0 - 1.00 Complete Blood Count + Differential 0.87 {x10E9/L} below low threshold See Below LH-Ejctbickml-EL [facility] [address] [place] Work Phone: Comment on above: Reference Range: 1.2 0 - 4.80 Complete Blood Count + Differential 3.38 {x10E9/L} See Below HX-Seixklvkfn-XZ [facility] [address] [place] Work Phone: Comment on above: Reference Range: 1.2 0 - 7.70 Complete Blood Count + Differential 6.1 % 0.0 - 6.0 NE-Bwynfqtdxo-EV [facility] [address] [place] Work Phone: Complete Blood Count + Differential 0.4 % 0.0 - 0.9 TO-Urdcyrbqdi-WS [facility] [address] [place] Work Phone: Comment on above: Immature Granulocyte Count (IG) includes promyelocytes, myelocytes and metamyelocytes but does not include bands. Percent differential counts (%) should be interpreted in the context of the absolute cell counts (cells/L). Complete Blood Count + Differential 0.0 {/100_WBC} 0.0-0.0 TT-Zmkdcsnnss-MU [facility] [address] [place] Work Phone: Heparin assay, UFHon 022 Heparin unfractionated Chromogenic method Qn (PPP) 0.1 {IU/mL} ZF-Wqhgvkrvtq-TP [facility] [address] [place] Work Phone: Comment on above: The therapeutic refe rence range for UFH may be either 0.3-0.6 IU/mL or 0.3-0.7 IU/mL based on the clinical setting for anticoagulant therapy and the associated nomogram used. For heparin dosing guidelines based on clinical scenario and Heparin Assay results, please refer to local Pharmacy and the [facility] Guidelines for Anticoagulation therapy available on the [facility] intranet at:[email or web address] _[facility]_Guidelines_for_Anticoagu.aspx Laboratory - Chemistry and C hemistry - challengeon 12-26-2021 Glucose [Mass/Vol] 150 mg/dL above high threshold 74 - 99 SL-Zcygqscpug-NY [facility] [address] [place] Work Phone: Glucose [Mass/Vol] 165 mg/dL above high threshold 74 - 99 BK-Ekhpetpywa-QF [facility] [address] [place] Work Phone: Albumin BCP dye [Mass/Vol] 4.1 g/dL 3.4 - 5.0 KC-Xvdxzlgqco-SP [facility] [address] [place] Work Phone: ALP [Catalytic activity/Vol] 70 U/L 33 - 136 UT-Wohgvjtkpp-ZW [facility] [address] [place] Work Phone: ALT With P-5'-P [Catalytic activity/Vol] 13 U/L 10 - 52 OY-Aajklkonjq-GF [facility] [address] [place] Work Phone: Comment on above: Patients treated wit h Sulfasalazine may generate falsely decreased results for ALT. Anion gap [Moles/Vol] 22 mmol/L above high threshold 10 - 20 VK-Gswcfzyjcu-ST [facility] [address] [place] Work Phone: AST With P-5'-P [Catalytic activity/Vol] 23 U/L 9 - 39 IH-Yrkuoghmbg-HK [facility] [address] [place] Work Phone: Bilirubin [Mass/Vol] 0.9 mg/dL 0.0 - 1.2 MG-C ardiology-CM [facility] [address] [place] Work Phone: Calcium [Mass/Vol] 9.0 mg/dL 8.6 - 10.6 MG-Car diology-CM [facility] [address] [place] Work Phone: Chloride [Moles/Vol] 101 mmol/L 98 - 107 MG-C ardiology-CM [facility] [address] [place] Work Phone: CO2 [Moles/Vol] 20 mmol/L below low threshold 21 - 32 KF-Lxlhzmhklp-RG [facility] [address] [place] Work Phone: Creatinine [Mass/Vol] 1.27 mg/dL See Below MG- Cardiology-CM [facility] [address] [place] Work Phone: Comment on above: Reference Range: 0.5 0 - 1.30 Glucose [Mass/Vol] 253 mg/dL above high threshold 74 - 99 KQ-Sdtjjbzjde-OW [facility] [address] [place] Work Phone: LDH [Catalytic activity/Vol] 452 U/L above high threshold 84 - 246 HO-Elcinzpqlx-AQ [facility] [address] [place] Work Phone: Comment on above: MILD HEMOLYSIS DETEC SAMUEL. The result may be falsely elevated due tohemolysis or other interferents. Clinical correlation is recommended.Repeat testing may be considered. Potassium [Moles/Vol] 4.5 mmol/L 3.5 - 5.3 MG- Cardiology-CM [facility] [address] [employer] Work Phone: Protein [Mass/Vol] 7.8 g/dL 6.4 - 8.2 MG-Car diology-CM [facility] [address] [place] Work Phone: Sodium [Moles/Vol] 138 mmol/L 136 - 145 MG-Car diology-CM [facility] [address] [place] Work Phone: Urea nitrogen [Mass/Vol] 26 mg/dL above high threshold 6 - 23 FO-Zvrnheggtd-IH [facility] [employer] [place] Work Phone: Laboratory - Coagulationon 0 12-26-2021 INR Coag (PPP) [Relative time] 1.4 {INR} above high threshold 0.9 - 1.1 TS-Idpxqlooql-[place] [facility] [address] [place] Work Phone: PT Coag (PPP) [Time] 16.4 s above high threshold 9.8 - 13.4 ZY-Htxfsontoi-HZ [facility] [address] [place] Work Phone: Lactate, Levelon 12-26-2021 Lactate [Moles/Vol] 0.9 mmol/L 0.4 - 2.0 MG-Ca rdiology-CM [facility] [employer] [place] Work Phone: Comment on above: Venipuncture immedia tely after or during the administration of Metamizole may lead to falsely low results. Testing should be performed immediately prior to Metamizole dosing. No Panel Informationon 12-26 65 {mL/min/1.73m2} >90 MG-Car diology-CM [facility] [address] [place] Work Phone: Comment on above: CALCULATIONS OF ERICA MATED GFR ARE PERFORMED USING THE 2020 CKD-EPI STUDY REFIT EQUATION WITHOUT THE RACE VARIABLE FOR THE IDMS-TRACEABLE CREATININE METHODS.https://jasn.asnjournals.org/content/early/ N.8932998342 FREE T4on 10-20-2021 Free T4 [Mass/Vol] 1.50 ng/dL Critically high 0.76-1.46 T [facility] Comment on above: Performed By: #### I NFLUAB #### [facility] [address] [address] [address] Sonya Mendoza TSHon 10-20-2021 TSH 0.664 uIU/mL Normal 0.358-3.740 [facility] Comment on above: Performed By: #### F T4, PSAD #### [facility] [address] [address] [address] Sonya Mendoza Anticoagulation Monitoring S erviceon 10-03-2021 Anticoagulation Monitoring Service Today's INR [id number] IO INR3.3 Target INR range2-3 SourceAMS History of Present Illness Patient identification verified with 2 patient identifiers. Anticoagulation Monitoring Service: [facility]. Enrollment/Re-enrollm ent date: August 07, 2022. The patient is being seen as a follow-up for anticoagulation monitoring. Target INR 2-3. Monitoring practitioner Ju Palacios CNP. Date Warfarin Begun: 2016 INR monitoring is per [facility] protocol. PT MAY NOT GO LONGER THAN 2 WEEKS BETWEEN APPTS. The patient is on anticoagulation due to LVAD and NOTIFY LVAD COORDINATOR JENNIFER PALACIOS (PAGER #[phone]) FOR INR <1.8 OR >4. The patient [...] 11, 2021. Time: 9: 15 am. Location: [facility], , option 2. Your INR today is [...] #1 Coumadin Patient: TERRY VILLALPANDO; : 1960; [id number] [id number] 09:20AM IO PT/INR PT + INR, Plasma PT/INR (POC) Recorded INR Coagulation Screen Current Dose New Dose Recheck in Patient Notified Comments IO [id number] PT, INR Target INR [id number] Normal [employer] LVAD Flowsheeton 10-03-2021 LVAD Flowsheet 5.5 1 MG-Cardiol ogy-CM [facility] [address] [place] Work Phone: LVAD Flowsheet 9600 1 MG-Cardiol ogy-CM [facility] [address] [place] Work Phone: LVAD Flowsheet 4.7 1 MG-Cardiol ogy-CM [facility] [address] [place] Work Phone: LVAD Flowsheet 6.2 1 MG-Cardiol ogy-CM [facility] [address] [place] Work Phone: LVAD Flowsheet no alarms noted per patient TF-Tfugptgtsi-ND [facility] [address] [place] Work Phone: [...] concerns, please contact the LVAD office at [phone], option 3 or the direct line at [phone]. Please state that you are an LVAD patient. If it is after hours and it is an emergency, please page the LVAD pager by calling [phone] #[phone]. -Follow up SaturdayDec 29 at 2pm with [...] 0. 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 Lay Vaca Mr. 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 He is co-managed by the team at [facility] (Dr Yi). Interval Hx: Patient had swelling [...] 10-03-2021 Today's INR 2-3 MG-Cardiology -CM [facility] [address] [place] Work Phone: Today's INR AMS MG-Cardiology -CM [facility] [address] [place] Work Phone: CT LUNG CANCER [...] by: TORI GILL Date: 2021-09-29 07:58 Normal [facility] US SINGLE QUAD RT UPPERon US [...] by: TORI GILL Date: 2021-09-26 17:00 Normal [facility] US SPLEENon 09-26-2021 US SPLEEN EXAMINATION: US SPLEEN HISTORY: Monoclonal gammopathy (clinical) COMPARISON: No relevant comparison available. FINDINGS: The spleen is normal in size, contour and echotexture with no focal mass. The spleen measures 14.0 x 5.0 x 12.0 cm with volume of 437 mL. IMPRESSION: Normal appearance of the spleen Electronically authenticated by: TORI GILL Date: 2021-09-26 17:01 Normal [facility] XR BONE SURVEYon 09-26-2021 XR BONE [...] TORI GILL Date: 2021-09-26 09:56 Normal [facility] CBC W Auto Differential pane l (Bld)on 09-21-2021 Abs Immature Gran 0.03 k/uL <0.10 k/uL [facility] Basophils (Bld) [#/Vol] 0.07 10*3/uL <0.11 k/uL [facility] Basophils/100 WBC (Bld) 0.9 % [facility] Differential cell count method Nom (Bld) Auto [facility] Eosinophils (Bld) [#/Vol] 0.36 10*3/uL <0.46 k/uL [facility] Eosinophils/100 WBC (Bld) 4.9 % [facility] Erythrocyte distribution width (RBC) [Ratio] 18.3 % High 11.5 - 15.0 % [facility] Hematocrit (Bld) [Volume fraction] 46.9 % 39.0 - 51.0 % [facility] Hemoglobin (Bld) [Mass/Vol] 14.2 g/dL 13.0 - 17.0 g/dL [facility] Immature Gran % 0.4 % [facility] Lymphocytes (Bld) [#/Vol] 0.86 10*3/uL Low 1.00 - 4.00 k/uL [facility] Lymphocytes/100 WBC (Bld) 11.7 % [facility] MCH (RBC) [Entitic mass] 28.7 pg 26.0 - 34.[address] [facility] MCHC (RBC) [Mass/Vol] 30.3 g/dL Low 30.5 - 36.0 g/dL [facility] MCV (RBC) [Entitic vol] 94.7 fL 80.0 - 100.[address] [facility] Monocytes (Bld) [#/Vol] 0.76 10*3/uL <0.87 k/uL [facility] Monocytes/100 WBC (Bld) 10.3 % [facility] Neutrophils (Bld) [#/Vol] 5.29 10*3/uL 1.45 - 7.50 k/uL [facility] Neutrophils/100 WBC (Bld) 71.8 % [facility] Nucleated RBC (Bld) [#/Vol] 10*3/uL <0.01 k/uL [facility] Nucleated RBC/100 WBC (Bld) [Ratio] 0.0 /[address] [facility] Platelet mean volume (Bld) [Entitic vol] 11.7 fL 9.0 - 12.[address] [facility] Platelets (Bld) [#/Vol] 144 10*3/uL Low 150 - 400 k/uL [facility] RBC (Bld) [#/Vol] 4.95 10*6/uL 4.20 - 6.0 0 m/uL [facility] WBC (Bld) [#/Vol] 7.37 10*3/uL 3.70 - 11. 00 k/uL [facility] Comprehensive metabolic 2000 panelon 09-21-2021 Albumin [Mass/Vol] 4.4 g/dL 3.9 - 4.9 g/dL [facility] ALP [Catalytic activity/Vol] 91 U/L 38 - 113 U/L [facility] ALT [Catalytic activity/Vol] 16 U/L 10 - 54 U/L [facility] Anion gap [Moles/Vol] 6 mmol/L Low 9 - 18 mmol/L [facility] AST [Catalytic activity/Vol] 23 U/L 14 - 40 U/L [facility] Bilirubin [Mass/Vol] 0.9 mg/dL 0.2 - 1 .3 mg/dL [facility] Calcium [Mass/Vol] 9.9 mg/dL 8.5 - 10. 2 mg/dL [facility] Chloride [Moles/Vol] 101 mmol/L 97 - 10 5 mmol/L [facility] CO2 [Moles/Vol] 28 mmol/L 22 - 30 mmol/L [facility] Creatinine [Mass/Vol] 1.14 mg/dL 0.73 - 1.22 mg/dL [facility] Estimated Glomerular Filtration Rate 74 mL/min/1.73m >=60 mL/min/1.73m [facility] Glucose [Mass/Vol] 146 mg/dL High 74 - 99 mg/dL [facility] Potassium [Moles/Vol] 4.5 mmol/L 3.7 - 5.1 mmol/L [facility] Protein [Mass/Vol] 8.5 g/dL High 6.3 - 8.0 g/dL [facility] Sodium [Moles/Vol] 135 mmol/L Low 136 - 144 mmol/L [facility] Urea nitrogen [Mass/Vol] 21 mg/dL 9 - 24 mg/dL [facility] LD LACTATE DEHYDROon 022 LDH [Catalytic activity/Vol] 533 U/L High 135 - 225 U/L [facility] RETIC COUNTon 09-21-2021 Reticulocytes (Bld) [#/Vol] 0.36457 10*3/uL High 0.018 - 0.100 M/uL [facility] Reticulocytes (Bld) [#/Vol]o n 09-21-2021 Reticulocytes/100 RBC (Bld) 2.7 % High 0.4 - 2.0 % [facility] Anticoagulation Monitoring S erviceon 09-12-2021 Anticoagulation Monitoring Service Today's INR [id number] IO INR2.2 Target INR range2-3 SourceAMS History of Present Illness Patient identification verified with 2 patient identifiers. Anticoagulation Monitoring Service: [facility]. Enrollment/Re-enrollm ent date: August 07, 2022. The patient is being seen as a follow-up for anticoagulation monitoring. Target INR 2-3. Monitoring practitioner Ju Palacios CNP. Date Warfarin Begun: 2016 INR monitoring is per [facility] protocol. PT MAY NOT GO LONGER THAN 2 WEEKS BETWEEN APPTS. The patient is on anticoagulation due to LVAD and NOTIFY LVAD COORDINATOR JENNIFER JU PALACIOS (PAGER #[phone]) FOR INR <1.8 OR >4. The patient [...] 25, 2021. Time: 11: 30 am. Location: [facility], , option 2. Your INR today is [...] #1 Coumadin Patient: TERRY VILLALPANDO; : 1960; [id number] 09:[id number] 10:[id number] 10:[id number] 09:[id number] 07:59PM IO PT/INR PT + INR, Plasma PT/INR (POC) Recorded INR Coagulation Screen Current Dose New Dose Recheck in Patient Notified Comments IO INR2.23.52.82.8 PT, INR1.8 Target INR [id number] Normal [facility] Today's INRon 09-12-2021 Today's INR 2-3 Anticoagulati on [facility] [employer] Work Phone: Today's INR AMS Anticoagulati on [facility] [employer] Work Phone: IMMUNOFIXATION (DANIEL), URINEo n 09-08-2021 DANIEL Interpretation:U Comment Abnormal [facility] Comment on above: Result Comment: Benc e Allan Protein positive; kappa type. Performed By: #### I MUNFXU #### [facility] [address] [place] [address] Dr. Sonya Mendoza IMMUNOFIXATION (DANIEL), SERUMo n 09-07-2021 IMMUNOFIXATION RESULT Comment Abnormal [facility] Comment on above: Result Comment: Immu [...] can be removed by ordering test number [id number]- Immunofixation, Daratumumab-Specific, Serum and submitting a new sample for testing or by calling the lab to add this test to the current sample. Performed By: #### I NFLUAB #### [facility] [address] [place] [address] Dr. Sonya Mendoza Immunoglobulin A, Qn, Serum 935 mg/dL Critically high 90-386 [facility] Comment on above: Result Comment: Resu lts confirmed on dilution. Performed By: #### I NFLUAB #### [facility] [address] [place] [address] Dr. Sonya Mendoza Immunoglobulin G, Qn, Serum 1591 mg/dL Normal 603-1613 [facility] Comment on above: Performed By: #### I NFLUAB #### [facility] [address] [place] [address] Dr. Sonya Mendoza Immunoglobulin M, Qn, Serum 92 mg/dL Normal 20-172 [facility] Comment on above: Performed By: #### I NFLUAB #### [facility] [address] [place] [address] Dr. Sonya Mendoza CBC W MANUAL DIFFon 09-07-19 22 ATYPICAL LYMPH # Normal [facility] Comment on above: Performed By: #### P ERSMR CBCMAN #### [facility] [address] [place] [address] Dr. Sonya Mendoza ATYPICAL LYMPH % Normal [facility] Comment on above: Performed By: #### P ERSMR CBCMAN #### [facility] [address] [place] [address] Dr. Sonya Mendoza BAND # 0.0 103/ul Normal 0.0-0.3 [facility] Comment on above: Performed By: #### P ERSMR CBCMAN #### [facility] [address] [place] [address] Dr. Sonya Mendoza BAND % 0 % Normal 0-5 [facility] Comment on above: Performed By: #### P ERSMR, CBCMAN #### [facility] [address] [address] [address] Sonya POOLOM # 0.12 103/ul Critically high 0.00-0.10 [facility] Comment on above: Performed By: #### P ERSMR, CBCMAN #### [facility] [address] [address] [address] Sonya Mendoza BASOM % 2.0 % Normal 0.2-2.0 [facility] Comment on above: Performed By: #### P ERSMR, CBCMAN #### [facility] [address] [place] [address] Dr. Sonya Mendoza BLAST # Normal [facility] Comment on above: Performed By: #### P ERSMR, CBCMAN #### [facility] [address] [address] [address] Sonya Mendoza BLAST % Normal [facility] Comment on above: Performed By: #### P ERSMR, CBCMAN #### [facility] [address] [address] [address] Sonya Mendoza CORRECTED WBC Normal 4.0-11.0 The [facility] Comment on above: Performed By: #### P ERSMR, CBCMAN #### [facility] [address] [address] [address] Sonya Mendoza EOS # 0.00 103/ul Normal 0.00-0.70 [facility] Comment on above: Performed By: #### P ERSMR, CBCMAN #### [facility] [address] [address] [address] Sonya Mendoza EOS% 0.0 % Critically low 0.9-7.0 The [facility] Comment on above: Performed By: #### P ERSMR, CBCMAN #### [facility] [address] [place] [address] Dr. Sonya Mendoza HCT 48.8 % Normal 42.0-54.0 [facility] Comment on above: Performed By: #### P ERSMR, CBCMAN #### [facility] [address] [address] [address] Sonya Mendoza HGB 14.7 g/dl Normal 14.0-18.0 [facility] Comment on above: Performed By: #### P ERSMR, CBCMAN #### [facility] [address] [address] [address] Sonya Mendoza LYMPHM # 0.62 103/ul Critically low 1.20-3.80 [facility] Comment on above: Performed By: #### P ERSMR, CBCMAN #### [facility] [address] [address] [address] Sonya Mendoza LYMPHM% 10.0 % Critically low 20.5-60.0 [facility] Comment on above: Performed By: #### P ERSMR, CBCMAN #### [facility] [address] [address] [address] Sonya Mendoza MCH 28.8 pg Normal 25.9-34.0 [facility] Comment on above: Performed By: #### P ERSMR, CBCMAN #### [facility] [address] [address] [address] Sonya Mendoza MCHC 30.1 g/dl Normal 29.9-35.2 [facility] Comment on above: Performed By: #### P ERSMR, CBCMAN #### [facility] [address] [address] [address] Sonya Mendoza MCV 95.7 fL Critically high 80.0-94.0 [facility] Comment on above: Performed By: #### P ERSMR, CBCMAN #### [facility] [address] [address] [address] Sonya Mendoza METAMYELOCYTE # Normal [facility] Comment on above: Performed By: #### P ERSMR, CBCMAN #### [facility] [address] [address] [address] Sonya Mendoza METAMYELOCYTE % Normal [facility] Comment on above: Performed By: #### P ERSMR, CBCMAN #### [facility] [address] [address] [address] Sonya Mendoza MONOM# 0.62 103/ul Normal 0.30-0.80 [facility] Comment on above: Performed By: #### P ERSMR, CBCMAN #### [facility] [address] [address] [address] Sonya Mendoza MONOM% 10.0 % Normal 1.7-12.0 [facility] Comment on above: Performed By: #### P ERSMR, CBCMAN #### [facility] [address] [address] [address] Sonya Mendoza MPV 12.3 fL Normal 9.5-13.5 [facility] Comment on above: Performed By: #### P ERSMR, CBCMAN #### [facility] [address] [address] [address] Sonya Mendoza MYELOCYTE # Normal [facility] Comment on above: Performed By: #### P ERSMR, CBCMAN #### [facility] [address] [address] [address] Sonya Mendoza MYELOCYTE % Normal [facility] Comment on above: Performed By: #### P ERSMR, CBCMAN #### [facility] [address] [address] [address] Sonya Mendoza NRBC Normal [facility] Comment on above: Performed By: #### P ERSMR, CBCMAN #### [facility] [address] [address] [address] Sonya Mendoza PLT 110 103/ul Critically low 150-450 [facility] Comment on above: Performed By: #### P ERSMR, CBCMAN #### [facility] [address] [address] [address] Sonya Mendoza RBC 5.10 106/ul Normal 4.70-6.10 [facility] Comment on above: Result Comment: roul eux 3+ Performed By: #### P ERSMR, CBCMAN #### [facility] [address] [address] [address] Sonya Mendoza RDW 17.7 % Critically high 11.0-15.0 [facility] Comment on above: Performed By: #### P ERSMR, CBCMAN #### [facility] [address] [address] [address] Sonya Mendoza SEG # 4.84 103/ul Normal 1.40-6.50 [facility] Comment on above: Performed By: #### P ERSMR, CBCMAN #### [facility] [address] [address] [address] Sonya Mendoza SEG % 78.0 % Critically high 43.0-75.0 [facility] Comment on above: Performed By: #### P ERSMR, CBCMAN #### [facility] [address] [address] [address] Sonya Mendoza WBC 6.2 103/ul Normal 4.0-11.0 [facility] Comment on above: Performed By: #### P ERSMR, CBCMAN #### [facility] [address] [address] [address] Sonya Mendoza LDHon 09-06-2021 LDH 544 U/L Critically high 85-227 [facility] Comment on above: Performed By: #### L DH, LIVER #### [facility] [address] [address] [address] Sonya Mendoza LIVER PROFILEon 09-06-2021 Albumin [Mass/Vol] 4.0 g/dL Normal 3.4-5.0 [facility] Comment on above: Performed By: #### L DH, LIVER #### [facility] [address] [address] [address] Sonya Mendoza Albumin/Globulin [Mass ratio] 0.9 {ratio} Normal [facility] Comment on above: Performed By: #### L DH, LIVER #### [facility] [address] [address] [address] Sonya Mendoza ALP [Catalytic activity/Vol] 88 U/L Normal 46-116 [facility] Comment on above: Performed By: #### L DH, LIVER #### [facility] [address] [address] [address] Sonya Mendoza ALT [Catalytic activity/Vol] 20 U/L Normal 16-63 [facility] Comment on above: Performed By: #### L , LIVER #### [facility] [address] [place] [address] Dr. Sonya Mendoza AST [Catalytic activity/Vol] 19 U/L Normal 15-37 [facility] Comment on above: Performed By: #### L , LIVER #### [facility] [address] [place] [address] Dr. Sonya Mendoza BILI, CONJUGATED 0.4 mg/dL Critically high 0.0-0.2 [facility] Comment on above: Performed By: #### L , LIVER #### [facility] [address] [place] [address] Dr. Sonya Mendoza Bilirubin [Mass/Vol] 1.3 mg/dL Critically high 0.2-1.0 [facility] Comment on above: Performed By: #### L , LIVER #### [facility] [address] [place] [address] Dr. Sonya Mendoza Globulin (S) [Mass/Vol] 4.7 g/dL Normal [facility] Comment on above: Performed By: #### L , LIVER #### [facility] [address] [place] [address] Dr. Sonya Mendoza Protein [Mass/Vol] 8.7 g/dL Critically high 6.4-8.2 [facility] Comment on above: Performed By: #### L , LIVER #### [facility] [address] [place] [address] Dr. Sonya Mendoza PERIPHERAL SMEARon Pathologist Cyto stain Nom (Cvx/Vag) [ID] DR. JAMIE COTE Normal [facility] Comment on above: Performed By: #### P ERSMR, CBCMAN #### [facility] [address] [place] [address] Dr. Sonya Mendoza VITAMIN D 25 OHon 09-06-2021 VIT D 25-OH 18.4 ng/mL [facility] Comment on above: Performed By: #### F T4, PSAD #### [facility] [address] [place] [address] Dr. Sonya Mendoza VIT D RANGES SEE BELOW Normal [facility] Comment on above: Result Comment: <20 ng/mL Vit D deficient 20 - <30 ng/mL Vit D insufficient 30 - 100 ng/mL Vit D sufficient >100 ng/mL Potential Toxicity Performed By: #### F T4, PSAD #### [facility] [address] [address] [address] Sonya Mendoza Anticoagulation Monitoring S kellen 09-05-2021 Anticoagulation Monitoring Service Today's INR [id number] IO INR3.5 Target INR range2-3 SourceAMS History of Present Illness Patient identification verified with 2 patient identifiers. Anticoagulation Monitoring Service: [facility]. Enrollment/Re-enrollm ent date: August 07, 2022. The patient is being seen as a follow-up for anticoagulation monitoring. Target INR 2-3. Monitoring practitioner Ju Palacios CNP. Date Warfarin Begun: 2016 INR monitoring is per [facility] protocol. PT MAY NOT GO LONGER THAN 2 WEEKS BETWEEN APPTS. The patient is on anticoagulation due to LVAD and NOTIFY LVAD COORDINATOR JENNIFER PALACIOS (PAGER #[phone]) FOR INR <1.8 OR >4. The patient [...] 12, 2021. Time: 9: 30 am. Location: [facility], [address] [place] [address]. Your INR today is higher than your [...] #1 Coumadin Patient: TERRY VILLALPANDO; : 1960; [id number] 10:[id number] 10:[id number] 09:[id number] 07:[id number] 06:57PM IO PT/INR PT + INR, Plasma PT/INR (POC) Recorded INR Coagulation Screen Current Dose New Dose Recheck in Patient Notified Comments IO INR3.52.82.8 PT, INR1.8 1.5 Target INR [id number] Normal [facility] Today's INRon 09-05-2021 Today's INR AMS Anticoagulati on [facility] Work Phone: Today's INR 2-3 Anticoagulati on [facility] Work Phone: Anticoagulation Monitoring S erviceon 08-29-2021 Anticoagulation Monitoring Service Today's INR [id number] IO INR2.8 Target INR range2-3 SourceAMS History of Present Illness Patient identification verified with 2 patient identifiers. Anticoagulation Monitoring Service: [facility]. Enrollment/Re-enrollm ent date: August 07, 2022. The patient is being seen as a follow-up for anticoagulation monitoring. Target INR 2-3. Monitoring practitioner JENNIFER PALACIOS. Date Warfarin Begun: 2016 INR monitoring is per [facility] protocol. PT MAY NOT GO LONGER THAN 2 WEEKS BETWEEN APPTS. The patient is on anticoagulation due to LVAD and NOTIFY LVAD COORDINATOR JENNIFER PALACIOS (PAGER #[phone]) FOR INR <1.8 OR >4. The patient [...] 05, 2021. Time: 10: 30 am. Location: [facility], [address] [place] [address]. Your INR today is within range . [...] 2021 10:59AM EST Appendix #1 Coumadin Patient: TERRY VILLALPANDO; : 1960; [id number] 10:[id number] 09:[id number] 07:[id number] 06:[id number] 07:33PM IO PT/INR PT + INR, Plasma PT/INR (POC) Recorded INR Coagulation Screen Current Dose New Dose Recheck in Patient Notified Comments IO INR2.82.8 PT, INR1.8 1.5 1.6 Target INR range2-32-3 Normal [facility] Today's INRon 08-29-2021 Today's INR 2-3 Anticoagulati on [facility] [employer] Work Phone: Today's INR AMS Anticoagulati on [facility] [employer] Work Phone: Anticoagulation Monitoring S erviceon 08-24-2021 Anticoagulation Monitoring Service Today's INR [id number] IO INR2.8 Target INR range2-3 SourceAMS History of Present Illness Patient identification verified with 2 patient identifiers. Anticoagulation Monitoring Service: [facility]. Enrollment/Re-enrollm ent date: August 07, 2022. The patient is being seen as a new patient for anticoagulation monitoring. Pt was seen today in the [facility] clinic for NPV. Pt was referred by JENNIFER Palacios with dx of LVAD. Patient contract form completed. Past medical history includes: afib, AI, CHF, COPD, DM, HLD, HTN, [place], RENU. Current meds reviewed and are listed in EMR. Educational information discussed including: indication, potential drug interactions (including ASA and ibuprofen), dietary considerations, effects of alcohol, changes in general health to report, compliance with f/u, dosing (including missed doses), signs of bleeding/clotting to report, and to seek medical attention if illness or injury occurs. [facility] voicemail number given to pt. Take home material provided. Pt verbalized understanding. PT HAS BEEN ON WARFARIN SINCE AT LEAST 2016 AND IS NOW ESTABLISHING CARE WITH [facility] CLINIC. Target INR 2-3. Monitoring practitioner JENNIFER PALACIOS. Date Warfarin Begun: 2016 INR monitoring is per [facility] protocol. PT MAY NOT GO LONGER THAN 2 WEEKS BETWEEN APPTS. The patient is on anticoagulation due to LVAD and NOTIFY LVAD COORDINATOR JENNIFER PALACIOS (PAGER #[phone]) FOR INR <1.8 OR >4. The patient is currently taking warfarin Tablet strength and color: 3 mg (Ugarte) Interval History: Incoming total weekly dose 31.5 mg. Today's Clinic INR: [facility] INR 2.8. Since last visit, the patient [...] PT REQUESTS SUBSEQUENT APPTS TO BE AT [facility] LOCATION. Outgoing total weekly dose 31.5 mg. [...] 29, 2021. Time: 10: 15 am. Location: [facility], . Your INR today is within range [...] #1 Coumadin Patient: TERRY VILLALPANDO; : 1960; [id number] 09:[id number] 07:[id number] 06:[id number] 07:[id number] 09:54PM IO PT/INR PT + INR, Plasma PT/INR (POC) Recorded INR Coagulation Screen Current Dose New Dose Recheck in Patient Notified Comments IO INR2.8 PT, INR1.8 1.5 1.6 1.9 Target INR range2-3 Normal [facility] Today's INRon 08-24-2021 Today's INR 2-3 Anticoagulati on Monitoring [facility] Work Phone: Today's INR AMS Anticoagulati on Monitoring [facility] Work Phone: LVAD Flowsheeton 04-05-2021 LVAD Flowsheet 9600 1 [facility]-Cardiol [facility] 4600 Work Phone: LVAD Flowsheet 6.2 1 MG-Cardiol ogy-[facility] 4600 Work Phone: LVAD Flowsheet 4.4 1 MG-Cardiol ogy-[facility] 4607 Work Phone: LVAD Flowsheet 6.6 1 MG-Cardiol ogy-[facility] 4600 Work Phone: LVAD Flowsheet no active alarms MG-C ardiology-[facility] 4600 Work Phone: Laboratory - Chemistry and C hemistry - challengeon 03-27-2021 Glucose [Mass/Vol] 181 mg/dL above high threshold 74 - 99 UO-Atqdvvzvkx-CP [facility] [address] DO Work Phone: Glucose [Mass/Vol] 132 mg/dL above high threshold 74 - 99 MD-Wynhenvlkb-XB [facility] [address] DO Work Phone: Laboratory - Chemistry and C hemistry - challengeon 03-26-2021 Glucose [Mass/Vol] 137 mg/dL above high threshold 74 - 99 UU-Nrrehsvjxu-RT [facility] [address] DO Work Phone: Albumin BCP dye [Mass/Vol] 4.0 g/dL 3.4 - 5.0 BI-Qjzhjigzng-TY [facility] [address] DO Work Phone: ALP [Catalytic activity/Vol] 65 U/L 33 - 120 YL-Czkukexcbb-AR [facility] [address] DO Work Phone: ALT With P-5'-P [Catalytic activity/Vol] 9 U/L below low threshold 10 - 52 RA-Kuohjsmrxw-UE [facility] [address] DO Work Phone: Comment on above: Patients treated wit h Sulfasalazine may generate falsely decreased results for ALT. Anion gap [Moles/Vol] 11 mmol/L 10 - 20 MG- Cardiology-CM [facility] [address] DO Work Phone: AST With P-5'-P [Catalytic activity/Vol] 16 U/L 9 - 39 ZS-Fnirusqsoz-UQ [facility] DO Work Phone: [...] mmol/L 21 - 32 MG-Cardio logy-CM [facility] DO Work Phone: Creatinine [Mass/Vol] 1.04 mg/dL See Below MG- Cardiology-CM [facility] [address] DO Work Phone: Comment on above: Reference Range: 0.5 0 - 1.30 Glucose [Mass/Vol] 108 mg/dL above high threshold 74 - 99 UC-Oweixjpxsn-BK [facility] [address] DO Work Phone: LDH [Catalytic activity/Vol] 260 U/L above high threshold 84 - 246 CV-Ivxpznnucn-TC [facility] DO Work Phone: Potassium [Moles/Vol] 4.3 mmol/L 3.5 - 5.3 MG- Cardiology-CM [facility] [address] DO Work Phone: Protein [Mass/Vol] 6.6 g/dL 6.4 - 8.2 MG-Car diology-CM [facility] [address] DO Work Phone: Sodium [Moles/Vol] 134 mmol/L below low threshold 136 - 145 IS-Kcebqrvvbo-CR [facility] [address] DO Work Phone: Urea nitrogen [Mass/Vol] 19 mg/dL 6 - 23 VH-Ctwmhpuohj-DZ [facility] [address] DO Work Phone: Glucose [Mass/Vol] 96 mg/dL 74 - 99 MG-Car diology-CM [facility] [address] DO Work Phone: Glucose [Mass/Vol] 169 mg/dL above high threshold 74 - 99 LT-Lmijlgbtwh-FU [facility] [address] DO Work Phone: Glucose [Mass/Vol] 110 mg/dL above high threshold 74 - 99 EX-Exsuyrdeyk-RE [facility] [address] DO Work Phone: Laboratory - Coagulationon 1 05-27-2020 aPTT Coag (PPP) [Time] 33 s 26 - 39 KG-Qkhvlkmdff-VM [facility] [address] DO Work Phone: Comment on above: Note new reference r alexsandra as of 03/21/2021 at 10:00am. INR Coag (PPP) [Relative time] 1.8 {INR} above high threshold 0.9 - 1.1 FL-Anuobybhdv-LW [facility] [address] DO Work Phone: PT Coag (PPP) [Time] 20.9 s above high threshold 9.8 - 13.4 PV-Mwvscjnxpi-KX [facility] [address] DO Work Phone: Comment on above: Note new reference r alexsandra as of 03/21/2021 at 10:00am. Laboratory - Hematology and Cell countson 03-26-2021 Erythrocyte distribution width (RBC) [Ratio] 19.5 % above high threshold See Below UU-Azxnmdgzlz-FF [facility] [address] DO Work Phone: Comment on above: Reference Range: 11. 5 - 14.5 Hematocrit (Bld) [Volume fraction] 31.0 % below low threshold See Below OF-Ryvxcrmcpi-DY [facility] [address] DO Work Phone: Comment on above: Reference Range: 41. 0 - 52.0 Hemoglobin (Bld) [Mass/Vol] 8.7 g/dL below low threshold See Below UO-Rognsixebu-SI [facility] [address] DO Work Phone: Comment on above: Reference Range: 13. 5 - 17.5 MCHC (RBC) [Mass/Vol] 28.1 g/dL below low threshold See Below YY-Rzehvbjvpv-TB [facility] [address] DO Work Phone: Comment on above: Reference Range: 32. 0 - 36.0 MCV (RBC) [Entitic vol] 88 fL 80 - 100 UT-Wlfuxwugys-XG [facility] [address] DO Work Phone: Platelets (Bld) [#/Vol] 179 10*3/uL 150 - 450 NY-Izytzssdkx-SG [facility] [address] DO Work Phone: RBC (Bld) [#/Vol] 3.53 {x10E12/L} below low threshold See Below VR-Cdufxvdpkq-JY [facility] [address] DO Work Phone: Comment on above: Reference Range: 4.5 0 - 5.90 WBC (Bld) [#/Vol] 6.6 10*3/uL 4.4 - 11.3 MG-Car diology-CM [facility] [address] DO Work Phone: Magnesium, Serumon Magnesium [Mass/Vol] 2.07 mg/dL See Below MG-C ardiology-CM [facility] [address] DO Work Phone: Comment on above: Reference Range: 1.6 0 - 2.40 No Panel Informationon 03-26 >60 >60 MG-Cardiology- CM [facility] [address] DO Work Phone: Comment on above: CALCULATIONS OF ERICA MATED GFR ARE PERFORMED USING THE MDRD STUDY EQUATION FOR THE IDMS-TRACEABLE CREATININE METHODS. CLIN CHEM 2007;53:766-72 1.1 {/100_WBC} 0.0-0.0 MG-Cardiol ogy-CM [facility] [address] DO Work Phone: Folate, Serumon 03-25-2021 Folate [Mass/Vol] 13.5 ng/mL >5.0 MG-Card iology-CM [facility] [address] DO Work Phone: [...] reagent post transfusion reaction Ql (RBC) Negative JI-Jhdrrrzkwm-AX [facility] [address] DO Work Phone: Direct antiglobulin test.poly specific reagent post transfusion reaction Ql (RBC) Negative UI-Zogbvbdhgh-CC [facility] [address] DO Work Phone: Laboratory - Chemistry and C hemistry - challengeon 03-25-2021 Glucose [Mass/Vol] 128 mg/dL above high threshold 74 - 99 AZ-Hzwqmlfcxn-GP [facility] [address] DO Work Phone: Albumin BCP dye [Mass/Vol] 4.1 g/dL 3.4 - 5.0 CL-Htswedwzci-DS [facility] [address] DO Work Phone: ALP [Catalytic activity/Vol] 63 U/L 33 - 120 ZA-Rhnlantijt-RZ [facility] [address] DO Work Phone: ALT With P-5'-P [Catalytic activity/Vol] 7 U/L below low threshold 10 - 52 FB-Nxfiarwcgu-TR [facility] [address] DO Work Phone: Comment on above: Patients treated wit h Sulfasalazine may generate falsely decreased results for ALT. Anion gap [Moles/Vol] 13 mmol/L 10 - 20 MG- Cardiology-CM [facility] [address] DO Work Phone: AST With P-5'-P [Catalytic activity/Vol] 14 U/L 9 - 39 VX-Ggvbrclqbo-UO [facility] [address] DO Work Phone: Bilirubin [Mass/Vol] 0.9 mg/dL 0.0 - 1.2 MG-C ardiology-CM [facility] [address] DO Work Phone: Calcium [Mass/Vol] 8.6 mg/dL 8.6 - 10.6 MG-Car diology-CM [facility] [address] DO Work Phone: Chloride [Moles/Vol] 105 mmol/L 98 - 107 MG-C ardiology-CM [facility] [address] DO Work Phone: CO2 [Moles/Vol] 23 mmol/L 21 - 32 MG-Cardio logy-CM [facility] [address] DO Work Phone: Creatinine [Mass/Vol] 1.09 mg/dL See Below MG- Cardiology-CM [facility] [address] DO Work Phone: Comment on above: Reference Range: 0.5 0 - 1.30 Glucose [Mass/Vol] 110 mg/dL above high threshold 74 - 99 SK-Aglhcwkpnw-GG [facility] [address] DO Work Phone: LDH [Catalytic activity/Vol] 269 U/L above high threshold 84 - 246 PF-Wjpcyxbhgn-CN [facility] [address] DO Work Phone: Potassium [Moles/Vol] 4.4 mmol/L 3.5 - 5.3 MG- Cardiology-CM [facility] [address] DO Work Phone: Protein [Mass/Vol] 6.7 g/dL 6.4 - 8.2 MG-Car diology-CM [facility] [address] DO Work Phone: Sodium [Moles/Vol] 137 mmol/L 136 - 145 MG-Car diology-CM [facility] [address] DO Work Phone: Urea nitrogen [Mass/Vol] 22 mg/dL 6 - 23 RV-Yiqbcabypk-RV [facility] [address] DO Work Phone: Glucose [Mass/Vol] 163 mg/dL above high threshold 74 - 99 QP-Dgwebdsxsk-OA [facility] [address] DO Work Phone: Glucose [Mass/Vol] 160 mg/dL above high threshold 74 - 99 ID-Wrftjglvuw-TU [facility] [address] DO Work Phone: Glucose [Mass/Vol] 190 mg/dL above high threshold 74 - 99 UY-Urqmvpamvp-WX [facility] [address] DO Work Phone: Laboratory - Coagulationon 1 05-26-2020 aPTT Coag (PPP) [Time] 30 s 26 - 39 RE-Eatgrvwcsg-DC [facility] [address] DO Work Phone: Comment on above: Note new reference levon upton as of 03/21/2021 at 10:00am. INR Coag (PPP) [Relative time] 1.5 {INR} above high threshold 0.9 - 1.1 RU-Nmgqdsdvrn-LV [facility] [address] DO Work Phone: PT Coag (PPP) [Time] 17.7 s above high threshold 9.8 - 13.4 BY-Xddppwcoic-LI [facility] [address] DO Work Phone: Comment on above: Note new reference r alexsandra as of 03/21/2021 at 10:00am. Laboratory - Hematology and Cell countson 03-25-2021 Erythrocyte distribution width (RBC) [Ratio] 18.7 % above high threshold See Below II-Hchgnhtvhk-KW [facility] [address] DO Work Phone: Comment on above: Reference Range: 11. 5 - 14.5 Hematocrit (Bld) [Volume fraction] 30.0 % below low threshold See Below DL-Nuvauvytyc-PO [facility] [address] DO Work Phone: Comment on above: Reference Range: 41. 0 - 52.0 Hemoglobin (Bld) [Mass/Vol] 8.9 g/dL below low threshold See Below ZW-Gtvoteilcg-EM [facility] [address] DO Work Phone: Comment on above: Reference Range: 13. 5 - 17.5 MCHC (RBC) [Mass/Vol] 29.7 g/dL below low threshold See Below WL-Njzdhgulif-PI [facility] [address] DO Work Phone: Comment on above: Reference Range: 32. 0 - 36.0 MCV (RBC) [Entitic vol] 85 fL 80 - 100 MW-Smnapafhmu-PG [facility] [address] DO Work Phone: Platelets (Bld) [#/Vol] 179 10*3/uL 150 - 450 KR-Xwprsdchmh-DL [facility] [address] DO Work Phone: RBC (Bld) [#/Vol] 3.53 {x10E12/L} below low threshold See Below DL-Zdkgebbccd-PW [facility] [address] DO Work Phone: Comment on above: Reference Range: 4.5 0 - 5.90 WBC (Bld) [#/Vol] 5.9 10*3/uL 4.4 - 11.3 MG-Car diology-CM [facility] [address] DO Work Phone: Magnesium, Serumon Magnesium [Mass/Vol] 2.15 mg/dL See Below MG-C ardiology-CM [facility] [address] DO Work Phone: Comment on above: Reference Range: 1.6 0 - 2.40 Methylmalonic Acid, Serumon 03-25-2021 Methylmalonate [Moles/Vol] 203 nmol/L 0-378 GO-Dkddspvnij-FE [facility] [address] [place] Work Phone: Comment on above: This test was develo ped and its performance characteristicsdetermined by [facility] [employer]. It has not been cleared or approvedby the Food and Drug Administration. No Panel Informationon 03-25 0.5 {/100_WBC} 0.0-0.0 MG-Cardiol ogy-CM [facility] [address] DO Work Phone: >60 >60 MG-Cardiology- CM [facility] [address] DO Work Phone: Comment on above: CALCULATIONS OF ERICA MATED GFR ARE PERFORMED USING THE MDRD STUDY EQUATION FOR THE IDMS-TRACEABLE CREATININE METHODS. CLIN CHEM 2007;53:766-72 Laboratory - Chemistry and C hemistry - challengeon 03-24-2021 Glucose [Mass/Vol] 163 mg/dL above high threshold 74 - 99 EK-Pihbrwajbt-KA [facility] [address] DO Work Phone: Albumin BCP dye [Mass/Vol] 4.0 g/dL 3.4 - 5.0 SB-Zdaqpbindj-LP [facility] [address] DO Work Phone: ALP [Catalytic activity/Vol] 66 U/L 33 - 120 FK-Dejqixigap-UP [facility] [address] DO Work Phone: ALT With P-5'-P [Catalytic activity/Vol] 7 U/L below low threshold 10 - 52 ZW-Tbjoxatflz-ML [facility] [address] DO Work Phone: Comment on above: Patients treated wit h Sulfasalazine may generate falsely decreased results for ALT. Anion gap [Moles/Vol] 13 mmol/L 10 - 20 MG- Cardiology-CM [facility] [address] DO Work Phone: AST With P-5'-P [Catalytic activity/Vol] 13 U/L 9 - 39 UQ-Nxmhfeswfg-WH [facility] [address] DO Work Phone: Bilirubin [Mass/Vol] 1.0 mg/dL 0.0 - 1.2 MG-C ardiology-CM [facility] [address] DO Work Phone: Calcium [Mass/Vol] 8.7 mg/dL 8.6 - 10.6 MG-Car diology-CM [facility] [address] DO Work Phone: Chloride [Moles/Vol] 103 mmol/L 98 - 107 MG-C ardiology-CM [facility] [address] DO Work Phone: CO2 [Moles/Vol] 23 mmol/L 21 - 32 MG-Cardio logy-CM [facility] [address] DO Work Phone: Creatinine [Mass/Vol] 1.26 mg/dL See Below MG- Cardiology-CM [facility] [address] DO Work Phone: Comment on above: Reference Range: 0.5 0 - 1.30 Glucose [Mass/Vol] 148 mg/dL above high threshold 74 - 99 HG-Osfbfdewnv-ZK [facility] [address] DO Work Phone: LDH [Catalytic activity/Vol] 260 U/L above high threshold 84 - 246 RC-Ttjasenaig-XH [facility] [address] DO Work Phone: Potassium [Moles/Vol] 4.2 mmol/L 3.5 - 5.3 MG- Cardiology-CM [facility] [address] DO Work Phone: Protein [Mass/Vol] 6.8 g/dL 6.4 - 8.2 MG-Car diology-CM [facility] [address] DO Work Phone: Sodium [Moles/Vol] 135 mmol/L below low threshold 136 - 145 TI-Gshdgajvzl-IR [facility] [address] DO Work Phone: Urea nitrogen [Mass/Vol] 26 mg/dL above high threshold 6 - 23 GL-Srepxbxvqj-GY [facility] [address] DO Work Phone: Glucose [Mass/Vol] 140 mg/dL above high threshold 74 - 99 DJ-Qjizpzizoq-XQ [facility] [address] DO Work Phone: Glucose [Mass/Vol] 125 mg/dL above high threshold 74 - 99 MB-Zqalazwpnj-JS [facility] [address] DO Work Phone: Laboratory - Coagulationon 1 05-25-2020 aPTT Coag (PPP) [Time] 31 s 26 - 39 QR-Ussvtkissa-LO [facility] [address] DO Work Phone: Comment on above: Note new reference r alexsandra as of 03/21/2021 at 10:00am. INR Coag (PPP) [Relative time] 1.6 {INR} above high threshold 0.9 - 1.1 YQ-Klhplyswka-EW [facility] [address] DO Work Phone: PT Coag (PPP) [Time] 18.3 s above high threshold 9.8 - 13.4 PR-Vfszlbusgd-XZ [facility] [address] DO Work Phone: Comment on above: Note new reference r alexsandra as of 03/21/2021 at 10:00am. Laboratory - Hematology and Cell countson 03-24-2021 Basophils/100 WBC (Bld) 0.0 % 0.0 - 2.0 LS-Ttbnqddaji-ME [facility] [address] DO Work Phone: Erythrocyte distribution width (RBC) [Ratio] 18.8 % above high threshold See Below YD-Ubrdqrrurj-OR [facility] [address] DO Work Phone: Comment on above: Reference Range: 11. 5 - 14.5 Hematocrit (Bld) [Volume fraction] 30.2 % below low threshold See Below WK-Fytrwseszp-AE [facility] [address] DO Work Phone: Comment on above: Reference Range: 41. 0 - 52.0 Hemoglobin (Bld) [Mass/Vol] 8.8 g/dL below low threshold See Below XZ-Nfxiityvob-LR [facility] [address] DO Work Phone: Comment on above: Reference Range: 13. 5 - 17.5 Lymphocytes/100 WBC (Bld) 12.0 % See Below BJ-Cojcmfakcr-HO [facility] [address] DO Work Phone: Comment on above: Reference Range: 13. 0 - 44.0 MCHC (RBC) [Mass/Vol] 29.1 g/dL below low threshold See Below ES-Cjytvhsnbg-DW [facility] [address] DO Work Phone: Comment on above: Reference Range: 32. 0 - 36.0 MCV (RBC) [Entitic vol] 86 fL 80 - 100 KD-Vvxgspwbgc-HN [facility] [address] DO Work Phone: Monocytes/100 WBC (Bld) 13.0 % 2.0 - 10.0 DG-Mxapubkmgh-EG [facility] [address] DO Work Phone: Platelets (Bld) [#/Vol] 174 10*3/uL 150 - 450 YQ-Kzkvxrvhft-YL [facility] [address] DO Work Phone: RBC (Bld) [#/Vol] 3.51 {x10E12/L} below low threshold See Below LF-Kopzvmpddp-KE [facility] [address] DO Work Phone: Comment on [...] 71.0 % See Below MG-Cardiology- CM [facility] [address] DO Work Phone: Comment on above: Reference Range: 40. 0 - 80.0 Percent differential counts (%) should be interpreted in the context of the absolute cell counts (cells/L). 70 {mL/min/1.73m2} >60 MG-Car diology-CM [facility] [address] DO Work Phone: Comment on above: CALCULATIONS OF ERICA MATED GFR ARE PERFORMED USING THE MDRD STUDY EQUATION FOR THE IDMS-TRACEABLE CREATININE METHODS. CLIN CHEM 2007;53:766-72 58 {mL/min/1.73m2} Abnormal >60 MG-Car diology-CM [facility] [address] DO Work Phone: Many MG-Cardiology- CM [facility] [address] DO Work Phone: Mild MG-Cardiology- CM [facility] [address] DO Work Phone: See Below MG-Cardiology- CM [facility] [address] DO Work Phone: 0.00 {x10E9/L} See Below MG-Cardiol ogy-CM [facility] [address] DO Work Phone: Comment on above: Reference Range: 0.0 0 - 0.10 0.27 {x10E9/L} See Below MG-Cardiol ogy-CM [facility] [address] DO Work Phone: Comment on above: Reference Range: 0.0 0 - 0.70 0.88 {x10E9/L} See Below MG-Cardiol ogy-CM [facility] [address] DO Work Phone: Comment on above: Reference Range: 0.1 0 - 1.00 0.82 {x10E9/L} below low threshold See Below ZN-Gnpztzviot-HC [facility] [address] DO Work Phone: Comment on above: Reference Range: 1.2 0 - 4.80 4.83 {x10E9/L} See Below MG-Cardiol ogy-CM [facility] [address] DO Work Phone: Comment on above: Reference Range: 1.2 0 - 7.00 Reference Range: 1.2 0 - 7.70 4.0 % 0.0 - 6.0 MG-Cardiology- CM [facility] [address] DO Work Phone: 0.7 {/100_WBC} 0.0-0.0 MG-Cardiol ogy-CM [facility] [address] DO Work Phone: Path Review-Differentialon 1 05-25-2020 Path Review-Differential Canceled MG-Cardiolog y-CM [facility] [address] DO Work Phone: Comment on above: By her/his signature above, the Pathologist listed as making the final interpretation certifies that she/he has personally reviewed this case. Digoxin Level, Serumon 03-23 Digoxin [Mass/Vol] 0.30 ng/mL below low threshold See Below RW-Wjimvzpvtc-MO [facility] [address] DO Work Phone: Comment on above: Reference Range: 0.8 0 - 2.00 Ferritin, Serumon 03-23-2021 Ferritin [Mass/Vol] 16 ug/L below low threshold 20 - 300 WZ-Whomndgltk-UL [facility] [address] DO Work Phone: Haptoglobin, Serumon Haptoglobin Nephelometry [Mass/Vol] <30 30 - 200 RC-Nuqmdkvrdk-VF [facility] [address] DO Work Phone: Laboratory - Chemistry and C hemistry - challengeon 03-23-2021 Albumin BCP dye [Mass/Vol] 3.9 g/dL 3.4 - 5.0 IV-Okiixcymbb-TI [facility] [address] DO Work Phone: ALP [Catalytic activity/Vol] 59 U/L 33 - 120 QZ-Lhzxwemnji-LY [facility] [address] DO Work Phone: ALT With P-5'-P [Catalytic activity/Vol] 7 U/L below low threshold 10 - 52 SD-Wlsoxazjrb-NU [facility] [address] DO Work Phone: Comment on above: Patients treated wit h Sulfasalazine may generate falsely decreased results for ALT. Anion gap [Moles/Vol] 10 mmol/L 10 - 20 MG- Cardiology-CM [facility] [address] DO Work Phone: AST With P-5'-P [Catalytic activity/Vol] 13 U/L 9 - 39 KB-Olnbbmstch-UR [facility] [address] DO Work Phone: Bilirubin [Mass/Vol] 1.2 mg/dL 0.0 - 1.2 MG-C ardiology-CM [facility] [address] DO Work Phone: Calcium [Mass/Vol] 9.0 mg/dL 8.6 - 10.6 MG-Car diology-CM [facility] [address] DO Work Phone: Chloride [Moles/Vol] 103 mmol/L 98 - 107 MG-C ardiology-CM [facility] [address] DO Work Phone: CO2 [Moles/Vol] 26 mmol/L 21 - 32 MG-Cardio logy-CM [facility] [address] DO Work Phone: Creatinine [Mass/Vol] 1.41 mg/dL above high threshold See Below ML-Pypfmaunbj-RE [facility] [address] DO Work Phone: Comment on above: Reference Range: 0.5 0 - 1.30 Glucose [Mass/Vol] 187 mg/dL above high threshold 74 - 99 KX-Ifskgybtza-OJ [facility] [address] DO Work Phone: Iron [Mass/Vol] 16 ug/dL below low threshold 35 - 150 NL-Jbbydzqero-TP [facility] [address] DO Work Phone: Iron binding capacity [Mass/Vol] >466 Abnormal 240 - 445 AA-Khyrcvyyvk-CP [facility] [address] DO Work Phone: Comment on above: Interpret results wi th caution.One or more analytes used in this calculation is outside of the analytical measurement range. LDH [Catalytic activity/Vol] 267 U/L above high threshold 84 - 246 YC-Prvtgrcsgz-SJ [facility] [address] DO Work Phone: Potassium [Moles/Vol] 4.1 mmol/L 3.5 - 5.3 MG- Cardiology-CM [facility] [address] DO Work Phone: Protein [Mass/Vol] 6.6 g/dL 6.4 - 8.2 MG-Car diology-CM [facility] [address] DO Work Phone: Sodium [Moles/Vol] 135 mmol/L below low threshold 136 - 145 VN-Htnfcutlis-RR [facility] [address] DO Work Phone: Urea nitrogen [Mass/Vol] 25 mg/dL above high threshold 6 - 23 QD-Bgrkesokna-FF [facility] [address] DO Work Phone: Glucose [Mass/Vol] 204 mg/dL above high threshold 74 - 99 TL-Yltslmriym-YE [facility] [address] DO Work Phone: Glucose [Mass/Vol] 95 mg/dL 74 - 99 MG-Car diology-CM [facility] [address] DO Work Phone: Laboratory - Coagulationon 1 05-24-2020 aPTT Coag (PPP) [Time] 32 s 26 - 39 BC-Clrfrtwdrf-VJ [facility] [address] DO Work Phone: Comment on above: Note new reference r alexsandra as of 03/21/2021 at 10:00am. INR Coag (PPP) [Relative time] 1.9 {INR} above high threshold 0.9 - 1.1 CX-Ddfuuqnewp-CF [facility] [address] DO Work Phone: PT Coag (PPP) [Time] 22.6 s above high threshold 9.8 - 13.4 CK-Mpjfnkszqp-PG [facility] [address] DO Work Phone: Comment on above: Note new reference r alexsandra as of 03/21/2021 at 10:00am. INR Coag (PPP) [Relative time] 1.9 {INR} above high threshold 0.9 - 1.1 RO-Yxwfjhduzl-UG [facility] [address] DO Work Phone: PT Coag (PPP) [Time] 22.4 s above high threshold 9.8 - 13.4 HM-Uitihehpkg-ZX [facility] [address] DO Work Phone: Comment on above: Note new reference r alexsandra as of 03/21/2021 at 10:00am. Laboratory - Hematology and Cell countson 03-23-2021 Basophils/100 WBC (Bld) 0.0 % 0.0 - 2.0 YY-Qddaihfxrs-LD [facility] [address] DO Work Phone: Erythrocyte distribution width (RBC) [Ratio] 18.0 % above high threshold See Below EQ-Hhlnwkupnk-NA [facility] [address] DO Work Phone: Comment on above: Reference Range: 11. 5 - 14.5 Hematocrit (Bld) [Volume fraction] 29.2 % below low threshold See Below PQ-Afycqfymbm-XH [facility] [address] DO Work Phone: Comment on above: Reference Range: 41. 0 - 52.0 Hemoglobin (Bld) [Mass/Vol] 8.2 g/dL below low threshold See Below GV-Jhjbezcmxn-MP [facility] [address] DO Work Phone: Comment on above: Reference Range: 13. 5 - 17.5 Lymphocytes/100 WBC (Bld) 17.0 % See Below RP-Otokrfquut-ZD [facility] [address] DO Work Phone: Comment on above: Reference Range: 13. 0 - 44.0 MCHC (RBC) [Mass/Vol] 28.1 g/dL below low threshold See Below MB-Ovpwupyqww-MX [facility] [address] DO Work Phone: Comment on above: Reference Range: 32. 0 - 36.0 MCV (RBC) [Entitic vol] 88 fL 80 - 100 BL-Vciutbarrl-AY [facility] [address] DO Work Phone: Monocytes/100 WBC (Bld) 11.0 % 2.0 - 10.0 OI-Xxsaragpxg-LC [facility] [address] DO Work Phone: Platelets (Bld) [#/Vol] 147 10*3/uL below low threshold 150 - 450 QS-Foexdlzgoq-AN [facility] [address] DO Work Phone: RBC (Bld) [#/Vol] 3.33 {x10E12/L} below low threshold See Below WZ-Gkylpatbci-HU [facility] [address] DO Work Phone: Comment on above: Reference Range: 4.5 0 - 5.90 WBC (Bld) [#/Vol] 5.4 10*3/uL 4.4 - 11.3 MG-Car diology-CM [facility] [address] DO Work Phone: Erythrocyte distribution width (RBC) [Ratio] 18.6 % above high threshold See Below TV-Oenkueiqrn-DE [facility] [address] DO Work Phone: Comment on above: Reference Range: 11. 5 - 14.5 Hematocrit (Bld) [Volume fraction] 24.4 % below low threshold See Below XX-Yrzeyuraby-NM [facility] [address] DO Work Phone: Comment on above: Reference Range: 41. 0 - 52.0 Hemoglobin (Bld) [Mass/Vol] 6.8 g/dL below low threshold See Below ZY-Qryocqlraz-EM [facility] [address] DO Work Phone: Comment on above: Reference Range: 13. 5 - 17.5 MCHC (RBC) [Mass/Vol] 27.9 g/dL below low threshold See Below KN-Lkdiuvzpaj-BK [facility] [address] DO Work Phone: Comment on above: Reference Range: 32. 0 - 36.0 MCV (RBC) [Entitic vol] 87 fL 80 - 100 HV-Hpjyvxpndt-DC [facility] [address] DO Work Phone: Platelets (Bld) [#/Vol] 158 10*3/uL 150 - 450 PY-Xeohtnwtsi-ZG [facility] [address] DO Work Phone: RBC (Bld) [#/Vol] 2.81 {x10E12/L} below low threshold See Below SJ-Zzemhkuyrs-NT [facility] [address] DO Work Phone: Comment on above: Reference Range: 4.5 0 - 5.90 WBC (Bld) [#/Vol] 5.9 10*3/uL 4.4 - 11.3 MG-Car diology-CM [facility] [address] DO Work Phone: Magnesium, Serumon Magnesium [Mass/Vol] 2.19 mg/dL See Below MG-C ardiology-CM [facility] [address] DO Work Phone: Comment on above: Reference Range: 1.6 0 - 2.40 Magnesium [Mass/Vol] 2.33 mg/dL See Below MG-C ardiology-CM [facility] [address] DO Work Phone: Comment on above: Reference Range: 1.6 0 - 2.40 No Panel Informationon 03-23 Few MG-Cardiology- CM [facility] [address] DO Work Phone: Mild MG-Cardiology- CM [facility] [address] DO Work Phone: See Below MG-Cardiology- CM [facility] [address] DO Work Phone: 0.00 {x10E9/L} See Below MG-Cardiol ogy-CM [facility] [address] DO Work Phone: Comment on above: Reference Range: 0.0 0 - 0.10 0.11 {x10E9/L} See Below MG-Cardiol ogy-CM [facility] [address] DO Work Phone: Comment on above: Reference Range: 0.0 0 - 0.70 0.59 {x10E9/L} See Below MG-Cardiol ogy-CM [facility] [address] DO Work Phone: Comment on above: Reference Range: 0.1 0 - 1.00 0.92 {x10E9/L} below low threshold See Below YY-Jvbzhgkyyw-GQ [facility] [address] DO Work Phone: Comment on above: Reference Range: 1.2 0 - 4.80 3.78 {x10E9/L} See Below MG-Cardiol ogy-CM [facility] [address] DO Work Phone: Comment on above: Reference Range: 1.2 0 - 7.00 Reference Range: 1.2 0 - 7.70 2.0 % 0.0 - 6.0 MG-Cardiology- CM [facility] [address] DO Work Phone: 70.0 % See Below MG-Cardiology- CM [facility] [address] DO Work Phone: Comment on above: Reference Range: 40. 0 - 80.0 Percent differential counts (%) should be interpreted in the context of the absolute cell counts (cells/L). 1.3 {/100_WBC} 0.0-0.0 MG-Cardiol ogy-CM [facility] [address] DO Work Phone: NOT CALC. 25 - 45 MG-Cardiology- CM [facility] [address] DO Work Phone: Comment on above: One or more analytes used in this calculation is outside of the analytical measurement range.Calculation cannot be performed. 62 {mL/min/1.73m2} >60 MG-Car diology-CM [facility] [address] DO Work Phone: Comment on above: CALCULATIONS OF ERICA MATED GFR ARE PERFORMED USING THE MDRD STUDY EQUATION FOR THE IDMS-TRACEABLE CREATININE METHODS. CLIN CHEM 2007;53:766-72 51 {mL/min/1.73m2} Abnormal >60 MG-Car diology-CM [facility] [address] DO Work Phone: ORDER RECD MG-Cardiology- CM [facility] [address] DO Work Phone: ORDER RECD MG-Cardiology- CM [facility] [address] DO Work Phone: 1.2 {/100_WBC} 0.0-0.0 MG-Cardiol ogy-CM C [facility] [address] DO Work Phone: Renal Function Panelon 03-23 Albumin BCP dye [Mass/Vol] 3.8 g/dL 3.4 - 5.0 WA-Esxxuffwht-TO C [facility] [address] DO Work Phone: Anion gap [Moles/Vol] 12 mmol/L 10 - 20 MG- Cardiology-CM C [facility] [address] DO Work Phone: Calcium [Mass/Vol] 8.6 mg/dL 8.6 - 10.6 MG-Car diology-CM C [facility] [address] DO Work Phone: Chloride [Moles/Vol] 107 mmol/L 98 - 107 MG-C ardiology-CM [facility] DO Work Phone: CO2 [Moles/Vol] 22 mmol/L 21 - 32 MG-Cardio logy-CM [facility] DO Work Phone: Creatinine [Mass/Vol] 1.08 mg/dL See Below MG- Cardiology-CM C [facility] DO Work Phone: Comment on above: Reference Range: 0.5 0 - 1.30 Glucose [Mass/Vol] 91 mg/dL 74 - 99 MG-Car diology-CM C [facility] DO Work Phone: Phosphate [Mass/Vol] [...] mmol/L 3.5 - 5.3 MG- Cardiology-CM [facility] DO Work Phone: Sodium [Moles/Vol] 137 mmol/L 136 - 145 MG-Car diology-CM [facility] DO Work Phone: Urea nitrogen [Mass/Vol] 19 mg/dL 6 - 23 HB-Yszxmgascp-IA [facility] DO Work Phone: Renal Function Panel >60 >60 MG-C ardiology-CM [facility] [address] DO Work Phone: Comment on above: CALCULATIONS OF ERICA MATED GFR ARE PERFORMED USING THE MDRD STUDY EQUATION FOR THE IDMS-TRACEABLE CREATININE METHODS. CLIN CHEM 2007;53:766-72 Vitamin B12, Serumon 021 Cobalamin (Vitamin B12) [Mass/Vol] 397 pg/mL 211 - 911 PD-Uakesrpzvm-RS [facility] DO Work Phone: Activated Partial Thrombopla stin Timeon 03-22-2021 aPTT Coag (PPP) [Time] 32 s 26 - 39 EI-Ynhpcpnocl-AU [facility] [address] DO Work Phone: Comment on above: Note new reference levon upton as of 03/21/2021 at 10:00am. Complete Blood Count + Jonah chapman 03-22-2021 Basophils/100 WBC (Bld) 0.5 % 0.0 - 2.0 AA-Cycreugcsz-GL C [facility] DO Work Phone: Erythrocyte distribution width (RBC) [Ratio] 19.4 % above high threshold See Below UI-Yndcnvizeo-GZ [facility] [address] DO Work Phone: Comment on above: Reference Range: 11. 5 - 14.5 Hematocrit (Bld) [Volume fraction] 22.6 % below low threshold See Below AK-Kvvptycaip-WR [facility] [address] DO Work Phone: Comment on above: Reference Range: 41. 0 - 52.0 Hemoglobin (Bld) [Mass/Vol] 6.3 g/dL Critically low See Below HD-Ydcttxnrrl-KT [facility] [address] DO Work Phone: Comment on above: Reference Range: 13. 5 - 17.5CRIT TO ERIC W[place] RB 2IDS, 03/22/2021 19:44 Lymphocytes/100 WBC (Bld) 15.9 % See Below DH-Cocnsbuedc-CQ [facility] [address] DO Work Phone: Comment on above: Reference Range: 13. 0 - 44.0 MCHC (RBC) [Mass/Vol] 27.9 g/dL below low threshold See Below DQ-Nrskytdhtv-CH [facility] [address] DO Work Phone: Comment on above: Reference Range: 32. 0 - 36.0 MCV (RBC) [Entitic vol] 86 fL 80 - 100 ET-Vipdnvsjwe-NY [facility] [address] DO Work Phone: Monocytes/100 WBC (Bld) 15.2 % 2.0 - 10.0 UA-Juwafgebyz-QG [facility] [address] DO Work Phone: Neutrophils/100 WBC (Bld) 64.6 % See Below QV-Qolawzhqwx-ET [facility] [address] DO Work Phone: Comment on above: Reference Range: 40. 0 - 80.0 Platelets (Bld) [#/Vol] 178 10*3/uL 150 - 450 WY-Koftrhogme-HD [facility] [address] DO Work Phone: RBC (Bld) [#/Vol] 2.62 {x10E12/L} below low threshold See Below YW-Hlhszlbolt-EC [facility] [address] DO Work Phone: Comment on above: Reference Range: 4.5 0 - 5.90 WBC (Bld) [#/Vol] 6.0 10*3/uL 4.4 - 11.3 MG-Car diology-CM C [facility] [address] DO Work Phone: Complete Blood Count + Differential 0.03 {x10E9/L} See Below YM-Bwgzxntyky-FU [facility] [address] DO Work Phone: Comment on above: Reference Range: 0.0 0 - 0.10 Complete Blood Count + Differential 0.21 {x10E9/L} See Below JC-Lrkunhsxpn-QV [facility] [address] DO Work Phone: Comment on above: Reference Range: 0.0 0 - 0.70 Complete Blood Count + Differential 0.92 {x10E9/L} See Below ZT-Xizzcuomif-VP [facility] [address] DO Work Phone: Comment on above: Reference Range: 0.1 0 - 1.00 Complete Blood Count + Differential 0.96 {x10E9/L} below low threshold See Below VF-Wlsdrxifms-IR [facility] [address] DO Work Phone: Comment on above: Reference Range: 1.2 0 - 4.80 Complete Blood Count + Differential 3.90 {x10E9/L} See Below ZC-Cqqxbynjpj-RJ [facility] [address] DO Work Phone: Comment on above: Reference Range: 1.2 0 - 7.70 Complete Blood Count + Differential 3.5 % 0.0 - 6.0 YB-Ujlpvdzlam-GY [facility] [address] DO Work Phone: Complete Blood Count + Differential 0.3 % 0.0 - 0.9 SS-Dczqbhnmkk-TX [facility] [address] DO Work Phone: Comment on above: Immature Granulocyte Count (IG) includes promyelocytes, myelocytes and metamyelocytes but does not include bands. Percent differential counts (%) should be interpreted in the context of the absolute cell counts (cells/L). Complete Blood Count + Differential 1.3 {/100_WBC} 0.0-0.0 JK-Rfkxjpaaos-IP [facility] [address] DO Work Phone: Coronavirus 2019 RNA by PCR, Screening Asymptomticon 03-22-2021 Coronavirus 2019 RNA by PCR, Screening Asymptomtic Detected Abnormal See Below WT-Zvcnkwnawf-GW [facility] [address] DO Work Phone: Comment on above: SOURCE: Nasal, Nasop haryngealReference Range: Not Detected.This test has received FDA Emergency Use Authorization (EUA) and has been verified by [facility] ([facility]). This test is only authorized for the duration of time that circumstances exist to justify the authorization of the emergency use of in vitro diagnostic tests for the detection of SARS-CoV-2 virus and/or diagnosis of COVID-19 infection under section 564(b)(1) of the Act, 21 U.S.C. 360bbb-3(b)(1), unless the authorization is terminated or revoked sooner. [facility] is certified under CLIA-88 as qualified to perform high complexity testing. Testing is performed in the [facility] located at [address] [place] [address].SARS-CoV-2/Flu/RSV Multiplex Test: Fact sheet for providers: https://www.fda.gov/media/909447/downloadFact sheet for patients: https://www.fda.gov/media/236032/download Laboratory - Blood bankon ABO group Nom (Bld) A MG-Ca rdiology-CM C [facility] [address] DO Work Phone: Blood group antibody screen Ql Negative AK-Ylhoqxjyjj-UN [facility] [address] DO Work Phone: Rh immune globulin screen (Bld) [Interp] Positive MG-Cardiol ogy-CM C [facility] [address] DO Work Phone: Laboratory - Chemistry and C hemistry - challengeon 03-22-2021 Albumin BCP dye [Mass/Vol] 4.1 g/dL 3.4 - 5.0 PX-Nmadyzeldw-PY [facility] [address] DO Work Phone: ALP [Catalytic activity/Vol] 63 U/L 33 - 120 HW-Tofkbamcok-RN C [facility] [address] DO Work Phone: ALT With P-5'-P [Catalytic activity/Vol] 6 U/L below low threshold 10 - 52 QH-Etvowbkujx-CF C [facility] [address] DO Work Phone: Comment on above: Patients treated wit h Sulfasalazine may generate falsely decreased results for ALT. Anion gap [Moles/Vol] 9 mmol/L below low threshold 10 - 20 YF-Fqwvwijsfe-DW [facility] [address] DO Work Phone: AST With P-5'-P [Catalytic activity/Vol] 16 U/L 9 - 39 MN-Rhhniwuujr-EK [facility] [address] DO Work Phone: Bilirubin [Mass/Vol] 0.7 mg/dL 0.0 - 1.2 MG-C ardiology-CM C [facility] [address] DO Work Phone: Calcium [Mass/Vol] 8.9 mg/dL 8.6 - 10.6 MG-Car diology-CM C [facility] [address] DO Work Phone: Chloride [Moles/Vol] 104 mmol/L 98 - 107 MG-C ardiology-CM C [facility] [address] DO Work Phone: CO2 [Moles/Vol] 26 mmol/L 21 - 32 MG-Cardio logy-CM C [facility] [address] DO Work Phone: Creatinine [Mass/Vol] 1.34 mg/dL above high threshold See Below AW-Vdicembbnl-JZ C [facility] [address] DO Work Phone: Comment on above: Reference Range: 0.5 0 - 1.30 Glucose [Mass/Vol] 127 mg/dL above high threshold 74 - 99 EA-Tbzjbvexru-NJ [facility] [address] DO Work Phone: LDH [Catalytic activity/Vol] 303 U/L above high threshold 84 - 246 WM-Dkhpkpqqup-EE [facility] [address] DO Work Phone: Potassium [Moles/Vol] 4.3 mmol/L 3.5 - 5.3 MG- Cardiology-CM C [facility] [address] DO Work Phone: Protein [Mass/Vol] 7.4 g/dL 6.4 - 8.2 MG-Car diology-CM C [facility] [address] DO Work Phone: Sodium [Moles/Vol] 135 mmol/L below low threshold 136 - 145 YO-Bmoaaivcod-CI C [facility] [address] DO Work Phone: Urea nitrogen [Mass/Vol] 23 mg/dL 6 - 23 WW-Wtalehkdzc-VI [facility] [address] DO Work Phone: Laboratory - Coagulationon 1 05-23-2020 INR Coag (PPP) [Relative time] 2.3 {INR} above high threshold 0.9 - 1.1 YK-Svmbfnrlnl-GE [facility] [address] DO Work Phone: PT Coag (PPP) [Time] 26.5 s above high threshold 9.8 - 13.4 FY-Irnebrqxpq-XH C [facility] [address] DO Work Phone: Comment on above: Note new reference levon upton as of 03/21/2021 at 10:00am. Laboratory - Hematology and Cell countson 03-22-2021 Erythrocyte distribution width (RBC) [Ratio] 19.0 % above high threshold See Below ZD-Fhsxigaanh-VX C [facility] [address] DO Work Phone: Comment on above: Reference Range: 11. 5 - 14.5 Hematocrit (Bld) [Volume fraction] 23.7 % below low threshold See Below CJ-Qbgrioworv-PP C [facility] [address] DO Work Phone: Comment on above: Reference Range: 41. 0 - 52.0 Hemoglobin (Bld) [Mass/Vol] 6.7 g/dL below low threshold See Below DQ-Mgxlldjotg-ZF [facility] [address] DO Work Phone: Comment on above: Reference Range: 13. 5 - 17.5 MCHC (RBC) [Mass/Vol] 28.3 g/dL below low threshold See Below TM-Ubijuxjshy-FM C [facility] [address] DO Work Phone: Comment on above: Reference Range: 32. 0 - 36.0 MCV (RBC) [Entitic vol] 88 fL 80 - 100 TD-Olcdubqyrq-SW C [facility] [address] DO Work Phone: Platelets (Bld) [#/Vol] 145 10*3/uL below low threshold 150 - 450 FM-Qnzhqlcxqq-RW [facility] [address] DO Work Phone: RBC (Bld) [#/Vol] 2.69 {x10E12/L} below low threshold See Below QP-Utdotexfex-KX [facility] [address] DO Work Phone: Comment on above: Reference Range: 4.5 0 - 5.90 WBC (Bld) [#/Vol] 6.0 10*3/uL 4.4 - 11.3 MG-Car diology-CM C [facility] [address] DO Work Phone: No Panel Informationon 03-22 1.5 {/100_WBC} 0.0-0.0 MG-Cardiol ogy-CM C [facility] [address] DO Work Phone: ORDER RECD MG-Cardiology- CM C [facility] [address] DO Work Phone: 65 {mL/min/1.73m2} >60 MG-Car diology-CM C [facility] [address] DO Work Phone: Comment on above: CALCULATIONS OF ERICA MATED GFR ARE PERFORMED USING THE MDRD STUDY EQUATION FOR THE IDMS-TRACEABLE CREATININE METHODS. CLIN CHEM 2007;53:766-72 54 {mL/min/1.73m2} Abnormal >60 MG-Car diology-CM C [facility] [address] DO Work Phone: [email or web address]= [id number]&Date=2020&Time=17%3a00%3a4 0%3a00&TestType=ECG&S ite=1&OutputType=PDF& Ext=PDF OU-Rhcgynlxru-LP [facility] [address] DO Work Phone: Please see ED Provider Note for formal interpretation LH-Oyymzsutuk-KR [facility] [address] DO Work Phone: Normal MG-Cardiology- CM [facility] [address] DO Work Phone: [phone] MG-Cardiology- CM C [facility] [address] DO Work Phone: [phone] MG-Cardiology- CM [facility] [address] DO Work Phone: 179 1 MG-Cardiology- CM C [facility] [address] DO Work Phone: 13 1 MG-Cardiology- CM [facility] [address] DO Work Phone: 39 1 MG-Cardiology- CM C [facility] [address] DO Work Phone: 269 1 MG-Cardiology- CM C [facility] [address] DO Work Phone: 539 1 MG-Cardiology- CM [facility] [address] DO Work Phone: 468 1 MG-Cardiology- CM C [facility] [address] DO Work Phone: 140 1 MG-Cardiology- CM C [facility] [address] DO Work Phone: 83 1 MG-Cardiology- CM [facility] [address] DO Work Phone: 80 1 MG-Cardiology- CM C [facility] [address] DO Work Phone: Occult Blood, Stoolon 2020 Hemoglobin.gastrointe stinal Ql (Stl) Canceled YG-Rogpkmrloc-RW C [facility] [address] DO Work Phone: Comment on above: SOURCE: Stool Radiologyon 03-22-2021 XR Chest Single view Normal MG-C ardiology-CM C [facility] [address] DO Work Phone: Reticulocyte Counton 021 Reticulocyte Count 15 pg below low threshold 28 - 38 XX-Oedmtjughh-TD [facility] [address] DO Work Phone: Reticulocyte Count 16.3 % above high threshold 0.0 - 16.0 MK-Pgznlctnso-GF C [facility] [address] DO Work Phone: Reticulocyte Count 0.079 {x10E12/L} See Below IP-Ktoclkjczt-LV C [facility] [address] DO Work Phone: Comment on above: Reference Range: 0.0 22 - 0.118 Reticulocyte Count 3.0 % above high threshold 0.5 - 2.0 LO-Ylwjmnmpia-XB [facility] [address] DO Work Phone: Urinalysison 03-22-2021 Color (U) YELLOW See Below MG-Cardiology- CM C [facility] [address] DO Work Phone: Comment on above: Reference Range: STR AW,YELLOW Glucose Ql (U) >=500 (3+) Abnormal NEGATIVE MG-Cardiol ogy-CM C [facility] [address] DO Work Phone: Ketones Ql (U) Negative NEGATIVE MG-Cardiol ogy-CM C [facility] [address] DO Work Phone: Leukocyte esterase Test strip Ql (U) Negative NEGATIVE MG-Cardiology- CM [facility] [address] DO Work Phone: pH (U) 7.0 [pH] 5.0 - 8.0 MG-Cardiology- CM [facility] [address] DO Work Phone: Protein (U) [Mass/Vol] Negative NEGATIVE XG-Ombxqnhlgm-SS [facility] [address] DO Work Phone: RBC (U) [#/Vol] Negative NEGATIVE MG-Cardio logy-CM [facility] [address] DO Work Phone: Specific gravity (U) [Rel density] 1.014 1 See Below QB-Vlapgigdpt-OZ C [facility] [address] DO Work Phone: Comment on above: Reference Range: 1.0 05 - 1.035 Urinalysis Negative NEGATIVE MG-Cardiology- CM [facility] [address] DO Work Phone: Urinalysis 4.0 mg/dL above high threshold 0.0 - 1.9 MF-Fvlvjrifnl-VL [facility] [address] DO Work Phone: Comment on above: SOME PIGMENTS AND ME DICATIONS MAY CAUSE AFALSE POSITIVE UROBILINOGEN Urinalysis CLEAR CLEAR MG-Cardiology- CM C [facility] [address] DO Work Phone: LVAD Flowsheeton 01-31-2021 LVAD Flowsheet 3.9 1 MG-Cardiol ogy-CM C [facility] [address] [place] Work Phone: LVAD Flowsheet 9600 1 MG-Cardiol ogy-CM [facility] [address] [place] Work Phone: LVAD Flowsheet 4.1 1 MG-Cardiol ogy-CM C [facility] [address] [place] Work Phone: LVAD Flowsheet 5.3 1 MG-Cardiol ogy-CM C [facility] [address] [place] Work Phone: LVAD Flowsheet multiple PI events noted JV-Vsibkvvihp-RV [facility] [address] [place] Work Phone: Tobacco Screening.on 021 Fall risk assessment a) No falls within the last year IR-Qbjtmzixke-KX [facility] [address] [place] Work Phone: Tobacco use status CPHS b) No RJ-Jthkgurntg-KO [facility] [address] [place] Work Phone: [facility] Flow[place] 08-29-2020 LVAD Flowsheet 5.0 1 MG-Cardiol ogy-CM C [facility] [address] [place] Work Phone: LVAD Flowsheet 5.9 1 MG-Cardiol ogy-CM C [facility] [address] [place] Work Phone: LVAD Flowsheet 9600 1 MG-Cardiol ogy-CM C [facility] [address] [place] Work Phone: LVAD Flowsheet low voltage advisory and PI events noted. GT-Vbirfzjjdv-QA C [facility] [address] [place] Work Phone: Vital Signs Date Time Vital Sign Value Performing Clinician Facility 10-29-2023 13:09-0400 Body temperature 97.5 [degF] [facility] [employer] Work Phone: [facility] 10-29-2023 13:09-0400 Heart rate 88 /min [facility] [employer] Work Phone: [facility] 10-29-2023 13:09-0400 Respiratory rate 20 /min [facility] [employer] Work Phone: [facility] 10-29-2023 13:09-0400 SaO2% (BldA) [Mass fraction] 94 % [facility] Work Phone: [facility] 10-15-2023 11:53-0400 Body mass index (BMI) [Ratio] 34.93 kg/m2 Ailyn Friend MD Work Phone: [facility] 10-15-2023 11:53-0400 Body temperature 97.59 [degF] Ailyn Friend MD Work Phone: [facility] 10-15-2023 11:53-0400 Body weight 115.2 kg Ailyn Friend MD Work Phone: [facility] 10-15-2023 11:53-0400 Respiratory rate 16 /min Ailyn Friend MD Work Phone: [facility] 10-15-2023 11:53-0400 SaO2% (BldA) [Mass fraction] 94 % Ailyn Friend MD Work Phone: [facility] 09-10-2023 14:04-0400 Body mass index (BMI) [Ratio] 35.77 kg/m2 John Solitario MD Work Phone: [facility] 09-10-2023 14:04-0400 Body temperature 97.11 [degF] John Solitario MD Work Phone: [facility] 09-10-2023 14:04-0400 Body weight 116.35 kg John Solitario MD Work Phone: [facility] 09-10-2023 14:04-0400 Diastolic blood pressure 51 mm[Hg] John Solitario MD Work Phone: [facility] 09-10-2023 14:04-0400 Heart rate 81 /min John Solitario MD Work Phone: [facility] 09-10-2023 14:04-0400 Systolic blood pressure 79 mm[Hg] John Solitario MD Work Phone: [facility] 06-05-2023 13:48-0500 Body height 180.3 cm Aisha Enriquez LUMBER SCALER[employer]CAREER PLACEMENT SERVICES COUNSELOR Work Phone: [facility] 06-05-2023 13:48-0500 Body mass index (BMI) [Ratio] 32.5 kg/m2 Aisha Enriquez LUMBER SCALER-CAREER PLACEMENT SERVICES COUNSELOR Work Phone: [facility] 06-05-2023 13:48-0500 Body weight 105.69 kg Aisha Enriquez LUMBER SCALER-CAREER PLACEMENT SERVICES COUNSELOR Work Phone: [facility] 05-27-2023 08:56-0500 Body height 181.6 cm Joleen Herrera 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 Work Phone: [facility] 05-27-2023 08:56-0500 Body mass index (BMI) [Ratio] 33.45 kg/m2 Joleen Herrera 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 Work Phone: [facility] 05-27-2023 08:56-0500 Body temperature 97.5 [degF] Joleen Herrera 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 Work Phone: [facility] 05-27-2023 08:56-0500 Body weight 110.31 kg Joleen Herrera 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 Work Phone: [facility] 05-27-2023 08:56-0500 Heart rate 83 /min Joleen Krishnadane 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 Work Phone: [facility] 05-27-2023 08:56-0500 Respiratory rate 17 /min Joleen Herrera 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 Work Phone: [facility] 05-27-2023 08:56-0500 SaO2% (BldA) [Mass fraction] 94 % Joleen Herrera 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 Work Phone: [facility] 05-24-2023 15:50-0500 Body temperature 97.7 [degF] Janene Negrete MD PhD Work Phone: [facility] 05-24-2023 15:50-0500 Heart rate 81 /min Janene Negrete MD PhD Work Phone: [facility] 05-24-2023 15:50-0500 Respiratory rate 16 /min Janene Negrete MD PhD Work Phone: [facility] 05-24-2023 15:50-0500 SaO2% (BldA) [Mass fraction] 97 % Janene Negrete MD PhD Work Phone: [facility] 05-24-2023 04:11-0500 Body mass index (BMI) [Ratio] 32.27 kg/m2 Janene Negrete MD PhD Work Phone: [facility] 05-24-2023 04:11-0500 Body weight 106.9 kg Janene Negrete MD PhD Work Phone: [facility] 05-19-2023 12:50-0500 Body height 182 cm Janene Negrete MD PhD Work Phone: [facility] 04-07-2023 15:34-0500 Body temperature 97.34 [degF] [facility] 04-07-2023 15:34-0500 Diastolic blood pressure 0 mm[Hg] [facility] 04-07-2023 15:34-0500 Heart rate 80 /min [facility] 04-07-2023 15:34-0500 Respiratory rate 18 /min [facility] 04-07-2023 15:34-0500 SaO2% (BldA) [Mass fraction] 96 % [facility] 04-07-2023 15:34-0500 Systolic blood pressure 82 mm[Hg] [facility] 01-11-2023 10:43-0400 Body height 181.6 cm Ailyn Friend MD Work Phone: [facility] 01-11-2023 10:43-0400 Body temperature 97.3 [degF] Ailyn Friend MD Work Phone: [facility] 01-11-2023 10:43-0400 Body weight 113.94 kg Ailyn Friend MD Work Phone: [facility] 01-11-2023 10:43-0400 Respiratory rate 18 /min Ailyn Friend MD Work Phone: [facility] 01-11-2023 10:43-0400 SaO2% (BldA) [Mass fraction] 97 % Ailyn Friend MD Work Phone: [facility] 08-15-2022 13:52-0400 Body mass index (BMI) [Ratio] 34.45 kg/m2 Joleen Sri Kuhnsusanbrant Work Phone: VR-Kpbqxiaygr-SJX [facility] [address] [place] Work Phone: 08-15-2022 13:52-0400 Body surface area Derived from formula 2.31 m2 Joleen Sri Kuhnsusanbrant Work Phone: ZO-Rzocvirpng-FGP [facility] [address] [place] Work Phone: 08-15-2022 13:52-0400 Body weight 112.04 kg Joleen Sri Kuhnsusanbrant Work Phone: GW-Uyyrkfyruy-KDM [facility] [address] [place] Work Phone: 08-15-2022 13:52-0400 Heart rate 88 /min Joelen Sri Herrera Work Phone: MT-Ryeqewokuz-URT [facility] [address] [place] Work Phone: 08-15-2022 13:52-0400 SaO2% (BldA) [Mass fraction] 93 % Joleen Sri Kuhnsusanbrant Work Phone: SG-Sdpfwvxqhq-HPX [facility] [address] [place] Work Phone: 08-15-2022 13:52-0400 0 1 Joleen Sri Herrera Work Phone: MW-Isatjzezhh-PXH [facility] [address] [place] Work Phone: Comment on above: [employer] 01-25-2022 13:43-0400 Body height 180.34 cm Joleen Sri Herrera Work Phone: LC-Xacigdlwei-JSL [facility] [address] [place] Work Phone: 01-25-2022 13:43-0400 Body mass index (BMI) [Ratio] 34.31 kg/m2 Jloeen Sri Herrera Work Phone: GY-Dbnoukvxto-HTK [facility] [address] [place] Work Phone: 01-25-2022 13:43-0400 Body mass index (BMI) [Ratio] 35.3 kg/m2 Joleen Herrera Work Phone: ON-Gednmwhmez-KIS [facility] [address] [place] Work Phone: 01-25-2022 13:43-0400 Body surface area Derived from formula 2.3 m2 Joleen Herrera Work Phone: LD-Ddjiogasbg-MKX [facility] [address] [place] Work Phone: 01-25-2022 13:43-0400 Body surface area Derived from formula 2.33 m2 Joleen Herrera Work Phone: CF-Ovvuljhufn-QZS [facility] [address] [place] Work Phone: 01-25-2022 13:43-0400 Body weight 111.59 kg Joleen Herrera Work Phone: GA-Piuvpscduw-VLN [facility] [address] [place] Work Phone: 01-25-2022 13:43-0400 Body weight 114.82 kg Joleen Herrera Work Phone: AA-Wuwxzlzktb-KAI [facility] [address] [place] Work Phone: 01-25-2022 13:43-0400 Diastolic blood pressure 81 mm[Hg] Joleen Hererra Work Phone: GB-Krnsxneati-LJA [facility] [address] [place] Work Phone: 01-25-2022 13:43-0400 Heart rate 80 /min Joleen Herrera Work Phone: PY-Mgcsjucqwu-ZIX [facility] [address] [place] Work Phone: 01-25-2022 13:43-0400 SaO2% (BldA) [Mass fraction] 94 % Joleen Herrera Work Phone: XP-Lqtzmjbclt-MAK [facility] [address] [place] Work Phone: 01-25-2022 13:43-0400 Systolic blood pressure 104 mm[Hg] Joleen Herrera Work Phone: XS-Lblgheznmx-QIE [facility] [address] [place] Work Phone: 01-25-2022 13:43-0400 0 1 Joleen Herrera Work Phone: IZ-Otclewzqam-JZN [facility] [address] [place] Work Phone: Comment on above: [employer] 01-10-2022 15:02-0400 Body height 181.6 cm Ailyn Friend MD Work Phone: [facility] 01-10-2022 15:02-0400 Body temperature 97.2 [degF] Ailyn Friend MD Work Phone: [facility] 01-10-2022 15:02-0400 Body weight 115.39 kg Ailyn Friend MD Work Phone: [facility] 01-10-2022 15:02-0400 Diastolic blood pressure 13 mm[Hg] Ailyn Friend MD Work Phone: [facility] 01-10-2022 15:02-0400 Heart rate 70 /min Ailyn Friend MD Work Phone: [facility] 01-10-2022 15:02-0400 Respiratory rate 18 /min Ailyn Friend MD Work Phone: [facility] 01-10-2022 15:02-0400 SaO2% (BldA) [Mass fraction] 97 % Ailyn Friend MD Work Phone: [facility] 01-10-2022 15:02-0400 Systolic blood pressure 99 mm[Hg] Ailyn Friend MD Work Phone: [facility] 12-28-2021 10:04-0400 Body temperature 96.8 [degF] Joleen Kuhnhholz Other Phone: [facility] 12-28-2021 10:04-0400 Diastolic blood pressure 67 mm[Hg] Joleen Fierro Aichholz Other Phone: [facility] 12-28-2021 10:04-0400 Heart rate 79 /min Joleen Fierro Aichholz Other Phone: [facility] 12-28-2021 10:04-0400 Respiratory rate 18 /min Joleen Fierro Aichholz Other Phone: [facility] 12-28-2021 10:04-0400 SaO2% (BldA) [Mass fraction] 97 % Joleen Kuhnhholz Other Phone: [facility] 12-28-2021 10:04-0400 Systolic blood pressure 93 mm[Hg] Joleen Fierro Bamsusanholz Other Phone: [facility] 12-28-2021 06:15-0400 Body weight 110.3 kg Joleen Boudreauxholz Other Phone: [facility] 11-02-2021 10:49-0400 Body height 181.6 cm Jerrell Kraus MD Work Phone: [facility] 11-02-2021 10:49-0400 Body temperature 97.5 [degF] Jerrell Kraus MD Work Phone: [facility] 11-02-2021 10:49-0400 Body weight 117.39 kg Jerrell Kraus MD Work Phone: [facility] 11-02-2021 10:49-0400 Diastolic blood pressure 71 mm[Hg] Jerrell Kraus MD Work Phone: [facility] 11-02-2021 10:49-0400 Heart rate 94 /min Jerrell Kraus MD Work Phone: [facility] 11-02-2021 10:49-0400 Respiratory rate 16 /min Jerrell Kraus MD Work Phone: [facility] 11-02-2021 10:49-0400 SaO2% (BldA) [Mass fraction] 95 % Jerrell rKaus MD Work Phone: [facility] 11-02-2021 10:49-0400 Systolic blood pressure 104 mm[Hg] Jerrell Kraus MD Work Phone: [facility] 10-05-2021 10:45-0400 Body height 181.6 cm Jerrell Kraus MD Work Phone: [facility] 10-05-2021 10:45-0400 Body temperature 97.9 [degF] Jerrell Kraus MD Work Phone: [facility] 10-05-2021 10:45-0400 Body weight 115.58 kg Jerrell Kraus MD Work Phone: [facility] 10-05-2021 10:45-0400 Diastolic blood pressure 72 mm[Hg] Jerrell Kraus MD Work Phone: [facility] 10-05-2021 10:45-0400 Heart rate 78 /min Jerrell Kraus MD Work Phone: [facility] 10-05-2021 10:45-0400 Respiratory rate 16 /min Jerrell Kraus MD Work Phone: [facility] 10-05-2021 10:45-0400 SaO2% (BldA) [Mass fraction] 96 % Jerrell Kraus MD Work Phone: [facility] 10-05-2021 10:45-0400 Systolic blood pressure 89 mm[Hg] Jerrell Kraus MD Work Phone: [facility] 10-03-2021 14:13-0400 Body height 180.34 cm Joleen Kuhnbrant Work Phone: [facility] [address] [place] [address] Work Phone: 10-03-2021 14:13-0400 Body mass index (BMI) [Ratio] 34.78 kg/m2 Joleen Herrera Work Phone: TQ-Qeljudnpyr-DTO [facility] [address] [place] Work Phone: 10-03-2021 14:13-0400 Body surface area Derived from formula 2.32 m2 Joleen Herrera Work Phone: FI-Hcgxmvdzcd-NMQ [facility] [address] [place] Work Phone: 10-03-2021 14:13-0400 Body weight 113.12 kg Joleen Herrera Work Phone: PZ-Simqdupylf-TCH [facility] [address] [place] Work Phone: 10-03-2021 09:16-0400 3.3 1 Joleen Herrera Work Phone: PH-Bmwdsumjin-XXO [facility] [address] [place] Work Phone: Comment on above: IOINR3 09-21-2021 12:51-0400 Body temperature 97.5 [degF] Jerrell Kraus MD Work Phone: [facility] 09-21-2021 12:51-0400 Body weight 115.67 kg Jerrell Kraus MD Work Phone: [facility] 09-21-2021 12:51-0400 Diastolic blood pressure 41 mm[Hg] Jerrell Kraus MD Work Phone: [facility] 09-21-2021 12:51-0400 Heart rate 46 /min Jerrell Kraus MD Work Phone: [facility] 09-21-2021 12:51-0400 Respiratory rate 16 /min Jerrell Kraus MD Work Phone: [facility] 09-21-2021 12:51-0400 SaO2% (BldA) [Mass fraction] 96 % Jerrell Kraus MD Work Phone: [facility] 09-21-2021 12:51-0400 Systolic blood pressure 81 mm[Hg] Jerrell Kraus MD Work Phone: [facility] 09-12-2021 09:53-0400 2.2 1 Joleen Fierro Sharon Work Phone: [facility] Work Phone: Comment on above: IOINR3 09-05-2021 10:32-0400 3.5 1 Joleen Fierro Sharon Work Phone: [facility] Work Phone: Comment on above: IOINR3 08-29-2021 10:21-0400 2.8 1 Joleen Fierro Sharon Work Phone: [facility] Work Phone: Comment on above: IOINR3 08-24-2021 09:20-0400 2.8 1 Joleen Fierro Sharon Work Phone: [facility] Work Phone: Comment on above: IOINR3 04-05-2021 12:16-0500 Body height 180.34 cm Joleen Fierro Sharon Work Phone: [facility] Work Phone: 04-05-2021 12:16-0500 Body mass index (BMI) [Ratio] 33.47 kg/m2 Joleen Sri Herrera Work Phone: DL[facility]zzrggnlq[facility]wd[facility]dm[facility] Work Phone: 04-05-2021 12:16-0500 Body surface area Derived from formula 2.28 m2 Joleen Sri Herrera Work Phone: [facility]gbxmajei[facility] Work Phone: 04-05-2021 12:16-0500 Body weight 108.86 kg Joleen Herrera Work Phone: NC[facility]qcmxieqar[facility]igxoch[facility] Work Phone: 03-27-2021 17:36-0500 Body temperature 98.06 [degF] Joleen Herrera Other Phone: [facility] 03-27-2021 17:36-0500 Heart rate 81 /min Joleen Herrera Other Phone: [facility] 03-27-2021 17:36-0500 Respiratory rate 18 /min Jloeen Herrera Other Phone: [facility] 03-27-2021 17:36-0500 SaO2% (BldA) [Mass fraction] 96 % Joleen Herrera Other Phone: [facility] 03-27-2021 08:00-0500 Body weight 107.3 kg Joleen Herrera Other Phone: [facility] 01-31-2021 12:52-0400 Body height 180.34 cm Joleen Herrera Work Phone: UH-Soaqulenfl-OXZ [facility] [address] [place] Work Phone: 01-31-2021 12:52-0400 Body mass index (BMI) [Ratio] 33.77 kg/m2 Joleen Herrera Work Phone: MP-Ypagzwmaaa-GLM [facility] [address] [place] Work Phone: 01-31-2021 12:52-0400 Body surface area Derived from formula 2.29 m2 Joleen Herrera Work Phone: BS-Akzxrpygxn-FCR [facility] [address] [place] Work Phone: 01-31-2021 12:52-0400 Body weight 109.83 kg Joleen Herrera Work Phone: ML-Wlumrvisci-YDG [facility] [address] [place] Work Phone: 01-31-2021 12:52-0400 0 1 Joleen Herrera Work Phone: ZE-Jttvvgzwyb-ALX [facility] [address] [place] Work Phone: Comment on above: [employer] 08-29-2020 16:13-0400 Body mass index (BMI) [Ratio] 37.1 kg/m2 Joleen Herrera Work Phone: MH-Gefvivqtkm-AXU [facility] [address] [place] Work Phone: 08-29-2020 16:13-0400 Body surface area Derived from formula 2.38 m2 Joleen Herrera Work Phone: QT-Xibgzcnzjs-HOA [facility] [address] [place] Work Phone: 08-29-2020 16:13-0400 Body weight 120.66 kg Joleen Herrera Work Phone: KK-Uaaltqbhzt-FHF [facility] [address] [place] Work Phone: 08-29-2020 16:13-0400 Heart rate 85 /min Joleen Herrera Work Phone: XP-Srorfyphyk-AWL [facility] [address] [place] Work Phone: 08-29-2020 16:13-0400 SaO2% (BldA) [Mass fraction] 92 % Joleen Herrera Work Phone: UX-Zwxuvucmad-NKH [facility] [address] [place] Work Phone: 01-26-2020 13:07-0400 BMI (Body Mass Index) 37.94 kg/m2 John ElAmm DI-Fqobcgvcmr-GFX [facility] [address] [place] Work Phone: 01-26-2020 13:07-0400 Body weight 123.38 kg John ElAmm GZ-Kuzucftafq-NF C [facility] [address] [place] Work Phone: 01-26-2020 13:07-0400 BSA (Body Surface Area) 2.4 m2 John ElAmm KY-Lvzlqcoqoh-LNX [facility] [address] [place] Work Phone: 01-26-2020 13:07-0400 Height 180.34 cm John ElAmm QU-Blohjkrooe-JW C [facility] [address] [place] Work Phone: 01-26-2020 13:07-0400 Pulse (Heart Rate) 76 /min John ElAmm MG-Cardiology -CMC [facility] [address] [place] Work Phone: 01-26-2020 13:07-0400 Pulse Oximetry 97 % John ElAmm FO-Bzjdbhhmcr-AL C [facility] [address] [place] Work Phone: Comment on above: Source: RA Encounters Encounter Date Encounter Type Care Provider Facility Start: 01-31-2024 ambulatory [facility] Start: 12-31-2023 End: 12-31-2023 ambulatory [facility] Start: 12-25-2023 End: 12-25-2023 ambulatory [facility] Start: 12-09-2023 End: 12-09-2023 ambulatory [facility] Start: 11-25-2023 End: 11-25-2023 ambulatory AISHA ENRIQUEZ [facility] Start: 11-25-2023 End: 11-25-2023 ambulatory NOAM EDWARDS [facility] Start: 10-29-2023 End: 10-29-2023 ambulatory Chair Rosey [...] 40 minutes John Solitario MD Work Phone: [facility] Comment on above: LVAD (left ventricul ar assist device) present (Multi); HFrEF (heart failure with reduced ejection fraction) (Multi) Start: 09-10-2023 End: 09-10-2023 ambulatory JOHN SOLITARIO [facility] Start: 08-13-2023 End: 08-13-2023 ambulatory JOLEENMickie KRISHNAZ Not Available Start: 08-02-2023 End: 08-02-2023 Subsequent hospital visit by physician Dalton Hdz [facility] Comment on above: VT (ventricular tach ycardia) (Multi); Cardiomyopathy, unspecified type (Multi) Start: 08-02-2023 End: 08-02-2023 ambulatory [facility] Start: 07-02-2023 End: 07-02-2023 ambulatory JOLEEN AICHHOLZ Not Available Start: 06-17-2023 End: 06-17-2023 Subsequent hospital visit by physician Minoff Device [facility] Comment on above: Cardiomyopathy, unsp ecified (CMS/HCC); Presence of automatic (implantable) cardiac defibrillator Start: 06-17-2023 End: 06-17-2023 ambulatory [facility] Start: 06-14-2023 End: 06-14-2023 Subsequent hospital visit by physician Mino[facility] Comment on above: Cardiomyopathy, unsp ecified (CMS/HCC); Presence of automatic (implantable) cardiac defibrillator Start: 06-14-2023 End: 06-14-2023 ambulatory [facility] Start: 06-11-2023 End: 06-11-2023 Subsequent hospital visit by physician Minoff [facility] Comment on above: Cardiomyopathy, unsp ecified (CMS/HCC); Presence of automatic (implantable) cardiac defibrillator Start: 06-11-2023 End: 06-11-2023 ambulatory [facility] Start: 06-05-2023 End: 06-05-2023 Office outpatient visit 40 minutes Aisha Enriquez APRN-CAREER PLACEMENT SERVICES COUNSELOR Work Phone: [facility] Comment on above: LVAD (left ventricul ar assist device) present (CMS/HCC) (Primary Dx) Start: 06-05-2023 End: 06-05-2023 ambulatory AISHA ENRIQUEZ [facility] Start: 05-31-2023 Clinisync Result Encounter Joleen Herrera NP Work Phone: [facility] External Department Unsolicited Start: 05-31-2023 Clinisync Result Encounter Joleen Herrera 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 Work Phone: [facility] External Department Unsolicited Start: 05-31-2023 End: 05-31-2023 ambulatory [facility] Start: 05-29-2023 End: 05-29-2023 Subsequent hospital visit by physician Minoff [facility] Comment on above: Cardiomyopathy, unsp ecified (CMS/HCC); Presence of automatic (implantable) cardiac defibrillator Start: 05-29-2023 End: 05-29-2023 ambulatory [facility] Start: 05-27-2023 End: 05-27-2023 ambulatory [facility] Start: 05-27-2023 End: 05-27-2023 Subsequent hospital visit by physician Minoff [facility] Comment on above: Cardiomyopathy, unsp ecified (CMS/HCC); Presence of automatic (implantable) cardiac defibrillator Start: 05-27-2023 End: 05-27-2023 ambulatory JOLEEN HERRERA Not Available Start: 05-27-2023 End: 05-27-2023 Office outpatient visit 25 minutes Joleen Herrera 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 Work Phone: [facility] Comment on above: Type 2 diabetes luke itus with diabetic polyneuropathy, with long-term current use of insulin (CMS/HCC) (Primary Dx); BMI 33.0-33.9,adult; Chronic systolic heart failure (CMS/HCC); Cardiac arrhythmia, unspecified cardiac arrhythmia type; History of implantable cardioverter-defibrillator (ICD) insertion Start: 05-19-2023 End: 05-24-2023 Evaluation and management of inpatient Janene Negrete MD PhD Work Phone: [place] [phone] Comment on above: ICD (implantable car dioverter-defibrillator) discharge (Primary Dx); HFrEF (heart failure with reduced ejection fraction) ([facility]/HCC); History of left ventricular assist device ([facility]/HCC); LVAD (left ventricular assist device) present ([facility]); Heart failure ([facility]/HCC); Other specified hypothyroidism Start: 04-24-2023 End: 04-24-2023 ambulatory JOLEEN HERRERA Not Available Start: 04-07-2023 End: 04-07-2023 Emergency department patient visit David Johnson Facility:[facility] Start: 04-07-2023 End: 04-07-2023 Emergency department [facility] Start: 02-13-2023 ambulatory [facility] Start: 02-13-2023 End: 02-13-2023 ambulatory [facility] Start: 02-13-2023 ambulatory JOLEEN HERRERA [facility] Start: 01-11-2023 End: 01-11-2023 Patient encounter procedure Ailyn Friend MD Work Phone: [facility] Start: 01-11-2023 End: 01-11-2023 ambulatory Ailyn Friend MD Work Phone: Hematology/Oncology Comment on above: MGUS (monoclonal juan mopathy of unknown significance) (Primary Dx); Stage 3a chronic kidney disease (HCC) Start: 01-03-2023 End: 01-03-2023 ambulatory JOLEEN SRI HERRERA Facility:[facility] Start: 01-03-2023 End: 01-03-2023 Subsequent hospital visit by physician Arrival Time Radiology Work Phone: Radiology [facility] Comment on above: Multiple myeloma not having achieved remission (HCC) [C90.00] Start: 12-14-2022 Rx Renewal Joleen Fierro Nicky lz Work Phone: VS-Oimgwigkfb-MWE [facility] [address] [place] Work Phone: Start: 09-18-2022 Telephone encounter Roz Houser Hematology/Oncology Comment on above: Results Start: 08-30-2022 End: 08-31-2022 ambulatory CAREER PLACEMENT SERVICES COUNSELOR JOLEEN HERRERA Facility:[facility] Start: 08-22-2022 End: 08-23-2022 ambulatory JENNIFER HERRERA Facility:[facility] Start: 08-21-2022 End: 08-22-[address] [place]ELOS [facility] Facility: Start: 08-16-2022 Patient encounter procedure Joleen Fierro Sharon Work Phone: PD-Bnugavciuk-XEQ [facility] [address] Work Phone: Start: 08-16-2022 BRODIE, Provider : Lainey Renee, Status: Pen, Time: 10:00 AM Joleen Sri Herrera Work Phone: XC-Mnwbsuften-UDC [facility] [address] [place] Work Phone: Start: 08-16-2022 ambulatory Mrs. Joleen Fierro Erendiradane Facility:[facility] Start: 08-15-2022 Office outpatient vi sit 40 minutes Jloeen Fierro Sharon Work Phone: HE-Hswtxtkqui-VQV [facility] [address] [place] Work Phone: Start: 08-15-2022 ambulatory Mrs. Joleen Fierro Sharon Facility:[facility] Start: 05-18-2022 AUDIT Joleen Fierro Nicky ann Work Phone: SL-Oatwpfskqt-WMJ [facility] [address] [place] Work Phone: Start: 05-17-2022 Rx Renewal Joleen Saunders lz Work Phone: VM-Qikrjyfsaf-DWN [facility] [address] [place] Work Phone: Start: 05-08-2022 End: 05-09-2022 ambulatory CAREER PLACEMENT SERVICES COUNSELOR JOLEEN HERRERA Facility:[facility] Start: 04-01-2022 End: 04-01-[address] ROBIN GROVE Facility:[facility] Start: 01-30-2022 End: 01-31-2022 ambulatory CAREER PLACEMENT SERVICES COUNSELOR JOLEEN HERRERA Facility:[facility] Start: 01-25-2022 Patient encounter procedure Joleen Herrera Work Phone: HF-Yvmutivcjg-CGZ [facility] [address] [place] Work Phone: Start: 01-10-2022 End: 01-10-2022 ambulatory Ailyn Friend MD Work Phone: Hematology/Oncology Comment on above: MGUS (monoclonal juan mopathy of unknown significance) (Primary Dx); Abnormal finding of blood chemistry, unspecified Start: 01-10-2022 End: 01-10-2022 Patient encounter procedure Ailyn Friend MD Work Phone: [place] Start: 01-03-2022 Telephone encounter Ailyn mark MD Work Phone: Hematology/Oncology Comment on above: Lab Orders Start: 12-26-2021 End: 12-28-2021 Evaluation and management of inpatient [facility] TT05 Rm [id number] Start: 11-02-2021 End: 11-02-2021 ambulatory Jerrell Kraus MD Work Phone: Hematology/Oncology Comment on above: MGUS (monoclonal juan mopathy of unknown significance) (Primary Dx); Absent serum haptoglobin; Thrombocytopenia (HCC) Start: 11-02-2021 End: 11-02-2021 Patient encounter procedure Jerrell Kraus MD Work Phone: [facility] Start: 10-20-2021 End: 10-21-2021 ambulatory CAREER PLACEMENT SERVICES COUNSELOR JOLEEN HERRERA Facility:[facility] Start: 10-18-2021 Rx Renewal Joleen Saunders lz Work Phone: PI-Wfqvghuzdm-UFLFotoup [address] [place] Work Phone: Start: 10-05-2021 End: 10-05-2021 ambulatory Jerrell Kraus MD Work Phone: Hematology/Oncology Comment on above: MGUS (monoclonal juan mopathy of unknown significance) (Primary Dx); Absent serum haptoglobin; Thrombocytopenia (HCC) Start: 10-05-2021 End: 10-05-2021 Patient encounter procedure Jerrell rKaus MD Work Phone: [facility] Start: 10-03-2021 Phys/qhp telephone evaluation 21-30 min Joleen Herrera Work Phone: OZ-Zwqekslxua-THQFotoup [address] [place] Work Phone: Start: 09-28-2021 End: 09-29-[address] TORI GILL Facility:[facility] Start: 09-26-2021 End: 09-27-[address] TOIR GILL Facility:[facility] Start: 09-21-2021 End: 09-21-2021 ambulatory Jerrell Kraus MD Work Phone: Hematology/Oncology Comment on above: MGUS (monoclonal juan mopathy of unknown significance) (Primary Dx); Thrombocytopenia (HCC); Encounter for screening for human immunodeficiency virus (HIV) Start: 09-21-2021 End: 09-21-2021 Patient encounter procedure Jerrell Kraus MD Work Phone: [facility] Start: 09-12-2021 Patient encounter procedure [facility] Herrera [facility] Work Phone: Start: 09-06-2021 End: 09-07-2021 ambulatory JENNIFER HERRERA Facility:[facility] Start: 08-29-2021 Patient encounter procedure Joleen Boudreauxholz Work Phone: LW-Qdpbxewgcz-ZUI [facility] [address] [place] Work Phone: Start: 08-28-2021 Chart Update Joleen Kuhnhemely lz Work Phone: OS-Gmdfwshxor-OKS [facility] [address] [place] Work Phone: Start: 08-24-2021 ECHO, Provider: LI RENTERIA 4,MG CARD, Status: Pen, Time: 11:20 AM Joleen Kuhnhholz Work Phone: BX-Plahvzcabt-TKV [facility] [address] [place] Work Phone: Start: 08-24-2021 Patient encounter procedure Joleen Boudreauxholz Work Phone: XK-Xuyfmyoasf-GSN [facility] [address] [place] Work Phone: Start: 08-23-2021 AUDIT Joleen Saunders lz Work Phone: HA-Dfipssvlii-OCP [facility] [address] [place] Work Phone: Start: 04-05-2021 Phys/qhp telephone evaluation 21-30 min Joleen Boudreauxholz Work Phone: [facility] Work Phone: Start: 04-05-2021 BRODIE, Provider : Ju Palacios, Status: Pen, Time: 11:20 AM Joleen Fierro Bamhholz Work Phone: ZU-Tlhzgxkczk-MWY [facility] [address] [place] Work Phone: Start: 04-04-2021 AUDIT Joleen Fierro Bamhemely lz Work Phone: ND-Fuzromplpd-ADJ [facility] [address] [place] Work Phone: Start: 03-28-2021 AUDIT Joleen Fierro Bamjossie lz Work Phone: MS-Advphasfdb-SGV [facility] [address] [place] Work Phone: Start: 03-27-2021 Patient encounter procedure Joleen Fierro Bamsusanbrant Work Phone: VF-Pwkezrzldd-ERQ [facility] [address] [place] Work Phone: Start: 03-22-2021 End: 03-27-2021 Evaluation and management of inpatient JOHN EL AMM [facility]05 Rm [id number] Start: 03-21-2021 AUDIT Joleen Saunders lz Work Phone: VS-Byxwbyxmdi-PMA [facility] [address] [place] Work Phone: Start: 03-14-2021 Rx Renewal Joleen Saunders lz Work Phone: [facility] Work Phone: Start: 02-03-2021 AUDIT Joleen Fierro Bamjossie lz Work Phone: DR-Ysgnhhwggh-RYB [facility] [address] [place] Work Phone: Start: 01-31-2021 Office outpatient vi sit 25 minutes Joleen Fierro Bamsusanholdane Work Phone: LW-Vbwhfufszk-VPA [facility] [address] [place] Work Phone: Start: 01-31-2021 Patient encounter procedure Joleen Fierro Sharon Work Phone: IZ-Jssubklewq-GEA [facility] [address] [place] Work Phone: Start: 10-17-2020 Rx Renewal Joleen Kuhnhho lz Work Phone: FC-Qnlthosell-RLZ [facility] [address] [place] Work Phone: Start: 09-15-2020 Rx Renewal Joleen Saunders lz Work Phone: XR-Ltqgrmvybv-UTK [facility] [address] [place] Work Phone: Start: 01-26-2020 Patient encounter procedure John ElAmm WG-Ulsyycugej-UPB [facility] [address] [place] Work Phone: Start: 12-04-2019 Patient encounter procedure John ElAmm OT-Kslbsjunqm-XKR [facility] [address] [place] Work Phone: Start: 08-27-2019 Patient encounter procedure John ElAmm BU-Ciwyrntqbj-Srkgytg [place] Work Phone: Start: 06-16-2019 Patient encounter procedure John ElAmm RZ-Bmrabccijj-Nouoaje [place] Work Phone: Start: 01-20-2019 Patient encounter procedure John ElAmm XX-Zwtmlwwdhg-Wzjjaea [place] Work Phone: Start: 05-08-2018 Patient encounter procedure John ElAmm OK-Jgdswdkioh-Hfkivga [place] Work Phone: Start: 04-11-2018 End: 04-12-2018 Patient encounter procedure NENA YOUNG Facility:[facility] Start: 02-28-2018 Patient encounter procedure John ElAmm JQ-Iratbjkhgw-Utdzrdw [place] Work Phone: Start: 12-12-2017 End: 12-13-2017 Patient encounter procedure DEFAULT PHYSICIAN Facility:[facility] Start: 11-29-2017 Patient encounter procedure John ElAmm CT-Swqrsswtff-Tsbwnsu [place] Work Phone: Start: 11-26-2017 End: 11-27-2017 Patient encounter procedure DEFAULT PHYSICIAN Facility:[facility] Start: 11-14-2017 End: 11-15-2017 Patient encounter procedure DEFAULT PHYSICIAN Facility:[facility] Start: 09-25-2017 Patient encounter procedure John ElAmm ZJ-Onvwoskoor-Vpaopby [place] Work Phone: Start: 08-29-2017 Patient encounter procedure John ElAmm NS-Ixdgxomyhh-Tujoddk [place] Work Phone: End: 08-29-2017 Patient encounter status Joleen Herrera Work Phone: MO-Grbuihvwmo-GKM [facility] [address] [place] Work Phone: Procedures Date Procedure Procedure Detail Performing Clinician Start: 08-02-2023 CARDIAC DEVICE CHECK - IN CLINIC JOLEEN HERRERA Start: 08-02-2023 Prgrmg eval implanta ble in prsn dual lead dfb Matias Driver MD Work Phone: Start: 06-17-2023 CARDIAC DEVICE CHECK - REMOTE JOLEEN AICHHOLZ Start: 06-14-2023 CARDIAC DEVICE CHECK - REMOTE JOLEEN AICHHOLZ Start: 06-11-2023 CARDIAC DEVICE CHECK - REMOTE JOLEEN AICHHOLZ Start: 05-31-2023 CARDIAC DEVICE CHECK - REMOTE JOLEEN AICHHOLZ Start: 05-31-2023 [facility] MICROALB CREAT R ATIO RANDOM Joleen Aichholz 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 Work Phone: Start: 05-29-2023 CARDIAC DEVICE CHECK [...] Renal function panel Na than P Silverio LUMBER SCALER-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 PLACEMENT SERVICES COUNSELOR Work Phone: Start: 05-24-2023 Glucose quantitative blood [...] Renal function panel Na than P Silverio LUMBER SCALER-CAREER PLACEMENT SERVICES COUNSELOR Work Phone: Start: 05-23-2023 Radiologic exam chest [...] Work Phone: Start: 05-22-2023 ECG 12-LEAD JOLEEN AICHH OLZ Start: 05-22-2023 XR CHEST 1 VIEW JOLEEN AI CHHOLZ Start: 01-31-2024 Glucose [Mass/volume ] in Serum or Plasma JOLEEN AICHHOLZ Start: 05-22-2023 ELECTROPHYSIOLOGY PROCEDURE JOLEEN AICHHOLZ Start: 05-22-2023 Ecg routine ecg w/le ast 12 lds trcg only w/o i&r Aisha Enriquez LUMBER SCALER-CAREER PLACEMENT SERVICES COUNSELOR Work Phone: Start: 05-22-2023 Radiologic exam ches [...] Phone: Start: 05-22-2023 TELEMETRY MONITORING LI SA AICHHOLZ Start: 05-22-2023 Glucose [Mass/volume ] in Serum or Plasma JOLEEN AICHHOLZ Start: 05-22-2023 CBC panel - Blood by Automated count JOLEEN AICHHOLZ Start: 05-22-2023 Lactate dehydrogenas e [Enzymatic activity/volume] in Serum or Plasma JOLEEN AICHHOLZ Start: 05-22-2023 Magnesium [Mass/volu me] in Serum or Plasma JOLEEN AICHHOLZ Start: 05-22-2023 PROTIME-INR JOLEEN AICHH OLZ Start: 05-22-2023 RENAL FUNCTION PANEL NOVA SA AICHHOLZ Start: 05-22-2023 TYPE AND SCREEN JOLEEN AI CHHOLZ Start: 05-22-2023 Blood typing serologic rh (d) Noam Edwards LUMBER SCALER-CAREER PLACEMENT SERVICES COUNSELOR Work Phone: Start: 05-22-2023 End: 05-22-2023 Renal function panel Noam Edwards LUMBER SCALER-CAREER PLACEMENT SERVICES COUNSELOR Work Phone: Start: 05-22-2023 Glucose [Mass/volume ] [...] End: 05-21-2023 Renal function panel Noam Edwards APRN-CAREER PLACEMENT SERVICES COUNSELOR Work Phone: Start: 05-20-2023 Glucose [Mass/volume ] [...] w/ wom-mode compl spec&colr d Wood Barber LUMBER SCALER-CAREER PLACEMENT SERVICES COUNSELOR Work Phone: Start: 05-20-2023 ADMIT TO INPATIENT [...] AICHH OLZ Start: 05-20-2023 RENAL FUNCTION PANEL LI SA AICHHOLZ Start: 05-20-2023 Renal function panel Na than P Silverio LUMBER SCALER-CAREER PLACEMENT SERVICES COUNSELOR Work Phone: Start: 05-19-2023 FULL CODE JOLEEN ABEL Start: 05-19-2023 ELECTRICAL CARDIOVERSION JOLEEN BAMHHOLZ Start: 05-19-2023 INSERT ARTERIAL LINE NOVA KUHNHHOLDane Start: 05-19-2023 ELECTRICAL CARDIOVERSION Natty Monzon Isaías LUMBER SCALER-CAREER PLACEMENT SERVICES COUNSELOR Work Phone: Start: 05-19-2023 Glucose [Mass/volume ] in Serum or Plasma JOLEEN AICHHOLZ Start: 05-19-2023 Artl cathj/cannulj mntr/transfusion spx prq Natty Monzon Isaías LUMBER SCALER-CAREER PLACEMENT SERVICES COUNSELOR Work Phone: Start: 05-19-2023 Basic metabolic 2000 panel - Serum or Plasma JOLEEN AICHHOLZ Start: 05-19-2023 Magnesium [Mass/volu me] in Serum or Plasma JOLEEN AICHHOLZ Start: 05-19-2023 XR CHEST 1 VIEW JOLEEN AI CHHOLDane Start: 05-19-2023 End: 05-19-2023 Basic metabolic panel calcium total Natty Monzon Isaías LUMBER SCALER-CAREER PLACEMENT SERVICES COUNSELOR Work Phone: Start: 05-19-2023 Glucose [Mass/volume ] [...] TO F REE T4 IF ABNORMAL JOLEEN AICHHOLZ Start: 05-19-2023 TYPE AND SCREEN JOLEEN AI CHHOLZ Start: 05-19-2023 Radiologic exam ches t single view Wood Barber LUMBER SCALER-CAREER PLACEMENT SERVICES COUNSELOR Work Phone: Start: 05-19-2023 IP CONSULT TO ELECTROPHYSIOLOGY JOLEEN HERRERA Start: 05-19-2023 End: 05-19-2023 Basic metabolic panel calcium total Natty L Isaías LUMBER SCALER-CAREER PLACEMENT SERVICES COUNSELOR Work Phone: Start: 05-19-2023 Drug screen quantita tive digoxin total Wood Barber LUMBER SCALER-CAREER PLACEMENT SERVICES COUNSELOR Work Phone: Start: 05-19-2023 Thyrotropin [Units/v olume] in Serum or Plasma Janene Negrete MD PhD Work Phone: Start: 01-03-[address] attenuation whole body Ailyn Friend MD Work Phone: Start: 01-03-2023 End: 01-03-2023 Blood count complete auto&auto difrntl wbc Ailyn Friend MD Work Phone: Start: 01-03-2023 KAPPA/HINOJOSA,FREE,SER Negro Friend MD Work Phone: Start: 01-03-2023 PROTEIN ELECTROPHORE SIS SERUM (P) Ailyn Friend MD Work Phone: Start: 01-03-2023 PROTEIN ELECTROPHORE SIS SERUM W/INTERP Ailyn Friend MD Work Phone: Start: 08-30-2022 PSA screening CAREER PLACEMENT SERVICES COUNSELOR JOLEEN BOUDREAUXSILVIANODane Comment on above: Performed By: #### F T4, PSAD #### [facility] [address] [place] [address] Dr. 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 Start: 08-31-2027 PROSTATE CANCER SCREENING DISCUSSION PROSTATE CANCER SCREENING DISCUSSION [facility] Start: 08-31-2027 Prostate specific antigen measurement Prostate Cancer Screening Discussion [facility] Start: 10-14-2026 Diabetes Screening Diabetes Screenin g [facility] Start: 01-03-2026 Diabetes Screening Diabetes Screenin g [facility] Start: 09-12-2025 DIABETES SCREEN DIABETES SCREEN [facility] Start: 05-17-2025 Screening for malign ant neoplasm of colon [facility] Start: 01-03-2025 DIABETES SCREEN DIABETES SCREEN [facility] Start: 10-26-2024 DIABETES SCREEN DIABETES SCREEN [facility] Start: 10-14-2024 Complete blood count Hemoglobin/Dae tocrit [facility] Start: 10-14-2024 Creatinine measurement Serum Creatin ine [facility] Start: 09-21-2024 DIABETES SCREEN [facility]EN [facility] Start: 05-24-2024 Complete blood count Hemoglobin/Dae tocrit [facility] Start: 05-24-2024 Creatinine measurement Creatinine Le abe [facility] Start: 05-24-2024 Potassium measurement Potassium Leve l [facility] Start: 05-20-2024 Echocardiography Echocardiogram [facility] Start: 05-19-2024 Thyroid stimulating hormone measurement TSH Level [facility] Start: 02-14-2024 End: 05-15-2024 CBC W Auto Differential panel - Blood COMPLETE BLOOD COUNT AND DIFFERENTIAL Lab Routine Smoldering multiple myeloma Expected: 02/14/2024 (Approximate), Expires: 05/15/2024 [facility] Comment on above: Expected: 02/14/2024 (Approximate), Expires: 05/15/2024 Start: 02-14-2024 End: 05-15-2024 Comprehensive metabolic 2000 panel - Serum or Plasma COMPREHENSIVE METABOLIC PANEL Lab Routine Smoldering multiple myeloma Expected: 02/14/2024 (Approximate), Expires: 05/15/2024 [facility] Comment on above: Expected: 02/14/2024 (Approximate), Expires: 05/15/2024 Start: 02-14-2024 End: 05-15-2024 MONOCLONAL PROTEIN, SERUM (BLOOD) MONOCLONAL PROTEIN, SERUM (BLOOD) Lab Routine Smoldering multiple myeloma Expected: 02/14/2024 (Approximate), Expires: 05/15/2024 [facility] Comment on above: Expected: 02/14/2024 (Approximate), Expires: 05/15/2024 Start: 02-14-2024 End: 05-15-2024 PROTEIN ELECTROPHORESIS SERUM W/INTERP PROTEIN ELECTROPHORESIS SERUM W/INTERP Lab Routine Smoldering multiple myeloma Expected: 02/14/2024 (Approximate), Expires: 05/15/2024 [facility] Comment on above: Expected: 02/14/2024 (Approximate), Expires: 05/15/2024 Start: 02-03-2024 End: 02-03-2024 ambulatory 02/03/2024 11:30 AM EDT Visit (SP) Office Hematology/Oncology [address] [place] [address] [place] [address] Michael Holguin MD [address] [place] [address] 4 month RUSS and lab Hematology/Oncology Comment on above: 4 month RUSS and lab Start: 02-03-2024 End: 02-03-2024 Patient encounter procedure 02/03/2024 11:15 AM EDT Office Visit [facility] [address] [place] [address] 4 month RUSS and lab [facility] Comment on above: 4 month RUSS and lab Start: 01-07-2024 End: 01-07-2024 Patient encounter procedure 01/07/2024 10:15 AM EDT Office Visit [address] [place] [address] Jody Da Silva MD [address] [place] [address] [address] [place] [address] [facility] Start: 01-04-2024 Serum Creatinine Serum Creatinine Cl [facility] Start: 12-22-2023 Covid-19 Vaccine ( season) Covid-19 Vaccine ( season) [facility] Start: 12-22-2023 Influenza vaccination Influenza Vacc ine (#1) [facility] Start: 11-25-2023 End: 11-25-2023 Patient encounter procedure [facility] Start: 11-12-2023 End: 02-11-2024 PROTEIN ELECTROPHORESIS SERUM W/INTERP PROTEIN ELECTROPHORESIS SERUM W/INTERP Lab Routine Smoldering multiple myeloma Expected: 11/12/2023 (Approximate), Expires: 02/11/2024 [facility] Comment on above: Expected: 11/12/2023 (Approximate), Expires: 02/11/2024 Start: 10-29-2023 End: 10-29-2023 ambulatory 10/29/2023 1:30 PM EDT [facility] Hematology/Oncology [address] [place] [address] [facility] phone encounter Hematology/Oncology Comment on above: [facility] phone enc ounter Start: 10-28-2023 End: 10-28-2023 ambulatory 10/28/2023 1:30 PM EDT [facility] Hematology/Oncology [address] [place] [address] [employer] phone encounter Hematology/Oncology Comment on above: [employer] phone enc ounter Start: 10-15-2023 End: 10-14-2024 Ferritin [Mass/volume] in Serum or Plasma [facility] Comment on above: Expected: 10/15/2023 , Expires: 10/14/2024 Start: 10-15-2023 End: 10-14-2024 Iron and Iron binding capacity panel - Serum or Plasma [facility] Work Phone: Comment on above: Expected: 10/15/2023 , Expires: 10/14/2024 Start: 10-15-2023 End: 01-14-2024 MONOCLONAL PROTEIN, SERUM (BLOOD) [facility] Comment on above: Expected: 10/15/2023 , Expires: 01/14/2024 Start: 09-23-2023 End: 09-09-2025 Heart Transthoracic Transthoracic Echo (TTE) Complete Echocardiography Routine LVAD (left ventricular assist device) present (Multi) HFrEF (heart failure with reduced ejection fraction) (Multi) Expected: 09/23/2023 (Approximate), Expires: 09/09/2025 [facility] Work Phone: Comment on above: Expected: 09/23/2023 (Approximate), Expires: 09/09/2025 Start: 09-13-2023 SERUM CREATININE SERUM CREATININE [facility] Start: 09-10-2023 End: 09-09-2024 CBC panel - Blood by Automated count CBC Lab Routine LVAD (left ventricular assist device) present (Multi) HFrEF (heart failure with reduced ejection fraction) (Multi) Expected: 09/10/2023 (Approximate), Expires: 09/09/2024 [facility] Service Area Work Phone: Comment on above: Expected: 09/10/2023 (Approximate), Expires: 09/09/2024 Start: 09-10-2023 End: 09-09-2024 Comprehensive metabolic 2000 panel - Serum or Plasma Comprehensive Metabolic Panel Lab Routine LVAD (left ventricular assist device) present (Multi) HFrEF (heart failure with reduced ejection fraction) (Multi) Expected: 09/10/2023 (Approximate), Expires: 09/09/2024 [facility] Work Phone: Comment on above: Expected: 09/10/2023 (Approximate), Expires: 09/09/2024 Start: 09-10-2023 End: 09-09-2024 Digoxin [Mass/volume] in Serum or Plasma Digoxin Lab Routine LVAD (left ventricular assist device) present (Multi) HFrEF (heart failure with reduced ejection fraction) (Multi) Expected: 09/10/2023 (Approximate), Expires: 09/09/2024 [facility] Work Phone: Comment on above: Expected: 09/10/2023 (Approximate), Expires: 09/09/2024 Start: 09-10-2023 End: 09-09-2024 Lactate dehydrogenase [Enzymatic activity/volume] in Serum or Plasma by Lactate to pyruvate reaction Lactate Dehydrogenase Lab Routine LVAD (left ventricular assist device) present (Multi) HFrEF (heart failure with reduced ejection fraction) (Multi) Expected: 09/10/2023 (Approximate), Expires: 09/09/2024 [facility] Work Phone: Comment on above: Expected: 09/10/2023 (Approximate), Expires: 09/09/2024 Start: 09-04-2023 End: 09-04-2023 Patient encounter procedure 09/04/2023 1:00 PM EDT Office Visit [facility] [id number] [facility] [address] [place] [address] Len Guardado MD [address] [facility] [address] [place] [address] [facility] Start: 08-21-2023 End: 08-21-2023 Social Work 08/21/2023 12:30 PM EDT Social Work [facility] [address] [address] [place] [address] Lainey Zhang, AFTER[employer]CHOOL [facility] Start: 08-19-2023 Hemoglobin A1c measurement Diabetes: Hemoglobin A1C [facility] Start: 08-18-2023 Hemoglobin A1c measurement Diabetes: Hemoglobin A1C [facility] Start: 07-02-2023 End: 07-02-2023 Patient encounter procedure [facility] Start: 06-05-2023 End: 06-05-2023 Patient encounter procedure [facility] Start: 05-23-2023 End: 05-23-2024 CBC W Auto Differential panel - Blood CBC and Auto Differential Lab Routine LVAD (left ventricular assist device) present ([facility]) Expected: 05/23/2023 (Approximate), Expires: 05/23/2024 [facility] Work Phone: Comment on above: Expected: 05/23/2023 (Approximate), Expires: 05/23/2024 Start: 05-23-2023 End: 05-23-2024 Lactate dehydrogenase [Enzymatic activity/volume] in Serum or Plasma by Lactate to pyruvate reaction Lactate Dehydrogenase Lab Routine LVAD (left ventricular assist device) present ([facility]) Expected: 05/23/2023 (Approximate), Expires: 05/23/2024 [facility] Service Area Work Phone: Comment on above: Expected: 05/23/2023 (Approximate), Expires: 05/23/2024 Start: 05-23-2023 End: 05-23-2024 Renal function 2000 panel - Serum or Plasma Renal Function Panel Lab Routine LVAD (left ventricular assist device) present ([facility]) Expected: 05/23/2023 (Approximate), Expires: 05/23/2024 [facility] Work Phone: Comment on above: Expected: 05/23/2023 (Approximate), Expires: 05/23/2024 Start: 05-23-2023 End: 05-23-2024 Thyrotropin [Units/volume] in Serum or Plasma Thyroid Stimulating Hormone Lab Routine LVAD (left ventricular assist device) present (CMS/HCC) Other specified hypothyroidism Expected: 05/23/2023 (Approximate), Expires: 05/23/2024 [facility] Work Phone: Comment on above: Expected: 05/23/2023 (Approximate), Expires: 05/23/2024 Start: 05-13-2023 End: 07-13-2023 CBC W Auto Differential panel - Blood CBC + DIFF Lab Routine MGUS (monoclonal gammopathy of unknown significance) Expected: 05/13/2023 (Approximate), Expires: 07/13/2023 [facility] Work Phone: Comment on above: Expected: 05/13/2023 (Approximate), Expires: 07/13/2023 Start: 05-13-2023 End: 07-13-2023 Comprehensive metabolic 2000 panel - Serum or Plasma COMP METABOLIC PANEL Lab Routine MGUS (monoclonal gammopathy of unknown significance) Expected: 05/13/2023 (Approximate), Expires: 07/13/2023 [facility] Work Phone: Comment on above: Expected: 05/13/2023 (Approximate), Expires: 07/13/2023 Start: 05-13-2023 End: 07-13-2023 MONOCLONAL PROTEIN, SERUM (BLOOD) MONOCLONAL PROTEIN, SERUM (BLOOD) Lab Routine MGUS (monoclonal gammopathy of unknown significance) Expected: 05/13/2023 (Approximate), Expires: 07/13/2023 [facility] Work Phone: Comment on above: Expected: 05/13/2023 (Approximate), Expires: 07/13/2023 Start: 05-13-2023 End: 07-13-2023 PROTEIN ELECTROPHORESIS SERUM W/INTERP PROTEIN ELECTROPHORESIS SERUM W/INTERP Lab Routine MGUS (monoclonal gammopathy of unknown significance) Expected: 05/13/2023 (Approximate), Expires: 07/13/2023 [facility] Work Phone: Comment on above: Expected: 05/13/2023 (Approximate), Expires: 07/13/2023 Start: 05-08-2023 Lipid panel Lipid Screening [facility] Start: 04-22-2023 Behavioral Health Screening Behavioral Health Screening [facility] Start: 02-13-2023 FUCHRISTY, Provider: Cooper Vaca, Status: Pen, Time: 1:00 PM FUVVACayetano, Provider: Cooper Vaca, Status: Pen, Time: 1:00 PM [facility] Work Phone: Start: 02-13-2023 LVADFUVSW, Provider: Lainey Renee, Status: Pen, Time: 12:30 PM LVADFUVSW, Provider: Lainey Renee, Status: Pen, Time: 12:30 PM [facility] Work Phone: Start: 12-21-2022 COVID-19 Vaccine ( season) COVID-19 Vaccine ( season) [facility] Start: 12-21-2022 Influenza vaccination [facility] [place] Start: 12-19-2022 End: 02-18-2023 CBC W Auto Differential panel - Blood CBC + DIFF Lab Routine Multiple myeloma not having achieved remission (HCC) Expected: 12/19/2022 (Approximate), Expires: 02/18/2023 [facility] Work Phone: Comment on above: Expected: 12/19/2022 (Approximate), Expires: 02/18/2023 Start: 12-19-2022 End: 02-18-2023 Comprehensive metabolic 2000 panel - Serum or Plasma COMP METABOLIC PANEL Lab Routine Multiple myeloma not having achieved remission (HCC) Expected: 12/19/2022 (Approximate), Expires: 02/18/2023 [facility] Work Phone: Comment on above: Expected: 12/19/2022 (Approximate), Expires: 02/18/2023 Start: 12-19-2022 End: 02-18-2023 MONOCLONAL PROTEIN, SERUM (BLOOD) MONOCLONAL PROTEIN, SERUM (BLOOD) Lab Routine Multiple myeloma not having achieved remission (HCC) Expected: 12/19/2022 (Approximate), Expires: 02/18/2023 [facility] Work Phone: Comment on above: Expected: 12/19/2022 (Approximate), Expires: 02/18/2023 Start: 12-19-2022 End: 10-18-[address] attenuation whole body NM PET/CT WHOLE BODY INITIAL Radiology Routine Multiple myeloma not having achieved remission (HCC) Monoclonal gammopathy Expected: 12/19/2022 (Approximate), Expires: 10/18/2023 [facility] Work Phone: Comment on above: Expected: 12/19/2022 (Approximate), Expires: 10/18/2023 Start: 12-19-2022 End: 02-18-2023 PROTEIN ELECTROPHORESIS SERUM W/INTERP PROTEIN ELECTROPHORESIS SERUM W/INTERP Lab Routine Multiple myeloma not having achieved remission (HCC) Expected: 12/19/2022 (Approximate), Expires: 02/18/2023 [facility] Work Phone: Comment on above: Expected: 12/19/2022 (Approximate), Expires: 02/18/2023 Start: 10-05-2022 Adult depression screening assessment DEPRESSION SCREENING [facility] Start: 05-12-2022 End: 07-12-2022 CBC W Auto Differential panel - Blood CBC + DIFF Lab Routine MGUS (monoclonal gammopathy of unknown significance) Expected: 05/12/2022 (Approximate), Expires: 07/12/2022 [facility] Work Phone: Comment on above: Expected: 05/12/2022 (Approximate), Expires: 07/12/2022 Start: 05-12-2022 End: 07-12-2022 Comprehensive metabolic 2000 panel - Serum or Plasma COMP METABOLIC PANEL Lab Routine MGUS (monoclonal gammopathy of unknown significance) Expected: 05/12/2022 (Approximate), Expires: 07/12/2022 [facility] Work Phone: Comment on above: Expected: 05/12/2022 (Approximate), Expires: 07/12/2022 Start: 05-12-2022 End: 01-10-2023 Ferritin [Mass/volume] in Serum or Plasma FERRITIN BLD Lab Routine MGUS (monoclonal gammopathy of unknown significance) Abnormal finding of blood chemistry, unspecified Expected: 05/12/2022 (Approximate), Expires: 01/10/2023 [facility] Work Phone: Comment on above: Expected: 05/12/2022 (Approximate), Expires: 01/10/2023 Start: 05-12-2022 End: 01-10-2023 Iron and Iron binding capacity panel - Serum or Plasma IRON + TIBC Lab Routine MGUS (monoclonal gammopathy of unknown significance) Abnormal finding of blood chemistry, unspecified Expected: 05/12/2022 (Approximate), Expires: 01/10/2023 [facility] Work Phone: Comment on above: Expected: 05/12/2022 (Approximate), Expires: 01/10/2023 Start: 05-12-2022 End: 07-12-2022 MONOCLONAL PROTEIN, SERUM (BLOOD) MONOCLONAL PROTEIN, SERUM (BLOOD) Lab Routine MGUS (monoclonal gammopathy of unknown significance) Expected: 05/12/2022 (Approximate), Expires: 07/12/2022 [facility] Work Phone: Comment on above: Expected: 05/12/2022 (Approximate), Expires: 07/12/2022 Start: 05-12-2022 End: 07-12-2022 PROTEIN ELECTROPHORESIS SERUM W/INTERP PROTEIN ELECTROPHORESIS SERUM W/INTERP Lab Routine MGUS (monoclonal gammopathy of unknown significance) Expected: 05/12/2022 (Approximate), Expires: 07/12/2022 [facility] Work Phone: Comment on above: Expected: 05/12/2022 (Approximate), Expires: 07/12/2022 Start: 05-02-2022 FUVVAD, Provider: Cooper Vaca, Status: Pen, Time: 1:40 PM FUVVAD, Provider: Cooper Vaca, Status: Tyrell, Time: 1:40 PM [id number] [place] [address] [place] Work Phone: Start: 04-22-2022 [facility] Start: 01-02-2022 FUVVAD, Provider: Ju Palacios, Status: Pen, Time: 2:00 PM FUVVAD, Provider: Ju Palacios, Status: Tyrell, Time: 2:00 PM [id number] [place] [address] [place] Work Phone: Start: 01-02-2022 Patient encounter procedure Cardiology [facility] Start: 12-27-2021 FUVVAD, Provider: Cooper Vaca, Status: Tyrell, Time: 3:00 PM FUVVAD, Provider: Cooper Vaca, Status: Tyrell, Time: 3:00 PM [facility] Work Phone: Start: 12-27-2021 End: 12-28-2022 [facility] Comment on above: :: Must be given gia or to discharge. Order entered from Admission Screen. Give dose at 1800, u nless otherwise specified by physician.Enteral feedings are held 1 hour pre and post dose Start: 12-26-2021 End: 12-27-2022 [facility] Comment on above: IF patient HAS a [...] drink Start: 12-21-2021 Influenza vaccination INFLUENZA (#1) [facility] Start: 11-02-2021 End: 01-02-2022 CBC W Auto Differential panel - Blood CBC + DIFF Lab Routine MGUS (monoclonal gammopathy of unknown significance) Absent serum haptoglobin Thrombocytopenia (HCC) Expected: 11/02/2021, Expires: 01/02/2022 [facility] Work Phone: Comment on above: Expected: 11/02/2021 , Expires: 01/02/2022 Start: 11-02-2021 End: 01-02-2022 Comprehensive metabolic 2000 panel - Serum or Plasma COMP METABOLIC PANEL Lab Routine MGUS (monoclonal gammopathy of unknown significance) Absent serum haptoglobin Thrombocytopenia (HCC) Expected: 11/02/2021, Expires: 01/02/2022 [facility] Work Phone: Comment on above: Expected: 11/02/2021 , Expires: 01/02/2022 Start: 11-02-2021 End: 01-02-2022 Haptoglobin [Mass/volume] in Serum or Plasma HAPTOGLOBIN BLD Lab Routine MGUS (monoclonal gammopathy of unknown significance) Absent serum haptoglobin Thrombocytopenia (HCC) Expected: 11/02/2021, Expires: 01/02/2022 [facility] Work Phone: Comment on above: Expected: 11/02/2021 , Expires: 01/02/2022 Start: 11-02-2021 End: 01-02-2022 Lactate dehydrogenase [Enzymatic activity/volume] in Serum or Plasma LD LACTATE DEHYDRO Lab Routine MGUS (monoclonal gammopathy of unknown significance) Absent serum haptoglobin Thrombocytopenia (HCC) Expected: 11/02/2021, Expires: 01/02/2022 [facility] Work Phone: Comment on above: Expected: 11/02/2021 , Expires: 01/02/2022 Start: 11-02-2021 End: 01-02-2022 MONOCLONAL PROTEIN, SERUM (BLOOD) MONOCLONAL PROTEIN, SERUM (BLOOD) Lab Routine MGUS (monoclonal gammopathy of unknown significance) Absent serum haptoglobin Thrombocytopenia (HCC) Expected: 11/02/2021, Expires: 01/02/2022 [facility] Work Phone: Comment on above: Expected: 11/02/2021 , Expires: 01/02/2022 Start: 11-02-2021 End: 01-02-2022 PROTEIN ELECTROPHORESIS SERUM W/INTERP PROTEIN ELECTROPHORESIS SERUM W/INTERP Lab Routine MGUS (monoclonal gammopathy of unknown significance) Absent serum haptoglobin Thrombocytopenia (HCC) Expected: 11/02/2021, Expires: 01/02/2022 [facility] Work Phone: Comment on above: Expected: 11/02/2021 , Expires: 01/02/2022 Start: 11-02-2021 End: 01-02-2022 RETIC COUNT RETIC COUNT Lab Routine MGUS (monoclonal gammopathy of unknown significance) Absent serum haptoglobin Thrombocytopenia (HCC) Expected: 11/02/2021, Expires: 01/02/2022 [facility] Work Phone: Comment on above: Expected: 11/02/2021 , Expires: 01/02/2022 Start: 10-26-2021 End: 12-26-2021 CBC W Auto Differential panel - Blood CBC + DIFF Lab Routine MGUS (monoclonal gammopathy of unknown significance) Expected: 10/26/2021 (Approximate), Expires: 12/26/2021 [facility] Work Phone: Comment on above: Expected: 10/26/2021 (Approximate), Expires: 12/26/2021 Start: 10-26-2021 End: 12-26-2021 Comprehensive metabolic 2000 panel - Serum or Plasma COMP METABOLIC PANEL Lab Routine MGUS (monoclonal gammopathy of unknown significance) Expected: 10/26/2021 (Approximate), Expires: 12/26/2021 [facility] Work Phone: Comment on above: Expected: 10/26/2021 (Approximate), Expires: 12/26/2021 Start: 10-26-2021 End: 12-26-2021 Direct antiglobulin test.poly specific reagent [Presence] on Red Blood Cells NESTOR DIRECT Blood Bank Routine MGUS (monoclonal gammopathy of unknown significance) Absent serum haptoglobin Expected: 10/26/2021 (Approximate), Expires: 12/26/2021 [facility] Work Phone: Comment on above: Expected: 10/26/2021 (Approximate), Expires: 12/26/2021 Start: 10-26-2021 End: 12-26-2021 Free Hemoglobin [Mass/volume] in Plasma HEMOGLOBIN, PLASMA Lab Routine MGUS (monoclonal gammopathy of unknown significance) Absent serum haptoglobin Expected: 10/26/2021 (Approximate), Expires: 12/26/2021 [facility] Work Phone: Comment on above: Expected: 10/26/2021 (Approximate), Expires: 12/26/2021 Start: 10-26-2021 End: 12-26-2021 MONOCLONAL PROTEIN, SERUM (BLOOD) MONOCLONAL PROTEIN, SERUM (BLOOD) Lab Routine MGUS (monoclonal gammopathy of unknown significance) Expected: 10/26/2021 (Approximate), Expires: 12/26/2021 [facility] Work Phone: Comment on above: Expected: 10/26/2021 (Approximate), Expires: 12/26/2021 Start: 10-26-2021 End: 12-26-2021 PROTEIN ELECTROPHORESIS SERUM W/INTERP PROTEIN ELECTROPHORESIS SERUM W/INTERP Lab Routine MGUS (monoclonal gammopathy of unknown significance) Expected: 10/26/2021 (Approximate), Expires: 12/26/2021 [facility] Work Phone: Comment on above: Expected: 10/26/2021 (Approximate), Expires: 12/26/2021 Start: 10-11-2021 Patient encounter procedure FUVCOAG, Provider: [facility], Status: Pen, Time: 9:15 AM [id number] [facility] [address] [place] Work Phone: Start: 09-25-2021 FUVVAD, Provider: Ju Palacios, Status: Pen, Time: 1:00 PM FUVVAD, Provider: Ju Palacios, Status: Pen, Time: 1:00 PM [id number] [facility] [address] [place] Work Phone: Start: 09-25-2021 Patient encounter procedure FUVCOAG, Provider: [facility], Status: Pen, Time: 11:30 AM [facility] Work Phone: Start: 09-21-2021 End: 11-21-2021 Haptoglobin [Mass/volume] in Serum or Plasma [facility] Work Phone: Comment on above: Expected: 09/21/2021 , Expires: 11/21/2021 Start: 09-19-2021 End: 11-19-2021 Chronic hepatitis differentiation between hepatitis B and C virus panel - Serum or Plasma HEP REMOTE PANEL BL Lab Routine MGUS (monoclonal gammopathy of unknown significance) Thrombocytopenia (HCC) Expected: 09/19/2021, Expires: 11/19/2021 [facility] Work Phone: Comment on above: Expected: 09/19/2021 , Expires: 11/19/2021 Start: 09-19-2021 End: 11-19-2021 HIV 1+2 Ab [Presence] in Serum or Plasma by Immunoassay HIV 1 2 COMBO(AG/AB),WITH REFLEX TO DIFFERENTIATION Lab Routine MGUS (monoclonal gammopathy of unknown significance) Thrombocytopenia (HCC) Encounter for screening for human immunodeficiency virus (HIV) Expected: 09/19/2021, Expires: 11/19/2021 [facility] Work Phone: Comment on above: Expected: 09/19/2021 , Expires: 11/19/2021 Start: 09-19-2021 End: 11-19-2021 MONOCLONAL PROT UR W/INTERP MONOCLONAL PROT UR W/INTERP Lab Routine MGUS (monoclonal gammopathy of unknown significance) Thrombocytopenia (HCC) Expected: 09/19/2021, Expires: 11/19/2021 [facility] Work Phone: Comment on above: Expected: 09/19/2021 , Expires: 11/19/2021 Start: 09-19-2021 End: 11-19-2021 MONOCLONAL PROTEIN, SERUM (BLOOD) MONOCLONAL PROTEIN, SERUM (BLOOD) Lab Routine MGUS (monoclonal gammopathy of unknown significance) Thrombocytopenia (HCC) Expected: 09/19/2021, Expires: 11/19/2021 [facility] Work Phone: Comment on above: Expected: 09/19/2021 , Expires: 11/19/2021 Start: 09-19-2021 End: 11-19-2021 PROTEIN ELECTROPHORESIS SERUM W/INTERP PROTEIN ELECTROPHORESIS SERUM W/INTERP Lab Routine MGUS (monoclonal gammopathy of unknown significance) Thrombocytopenia (HCC) Expected: 09/19/2021, Expires: 11/19/2021 [facility] Work Phone: Comment on above: Expected: 09/19/2021 , Expires: 11/19/2021 Start: 08-29-2021 Patient encounter procedure FUVCOAG, Provider: JOVANNA ANTOINE,MG CARD, Status: Pen, Time: 10:15 AM Anticoagulation Monitoring Service-[facility] Work Phone: Start: 2021 COVID-19 VACCINE (4 - Booster for Pfizer series) COVID-19 VACCINE (4 - Booster for Pfizer series) [facility] Start: 2021 RSV patient s and/or patients aged 60+ years (1 - 1-dose 60+ series) RSV patients and/or patients aged 60+ years (1 - 1-dose 60+ series) [facility] Start: 2021 RSV Vaccine (1 - 1-d ose 60+ series) RSV Vaccine (1 - 1-dose 60+ series) [facility] Start: 07-26-2021 ECHO, Provider: LI RENTERIA 1,MG CARD, Status: Pen, Time: 10:40 AM ECHO, Provider: LI BLUEI 1,MG CARD, Status: Pen, Time: 10:40 AM [facility] Work Phone: Start: 06-29-2021 LVADFUVSW, Provider: Eli Jimenez, Status: Pen, Time: 3:00 PM LVADFUVSW, Provider: Eli Jimenez, Status: Pen, Time: 3:00 PM [facility] Work Phone: Start: 06-29-2021 FUVVAD, Provider: Ju Palacios, Status: Pen, Time: 2:00 PM FUVVAD, Provider: Ju Palacios, Status: Pen, Time: 2:00 PM [facility] [address] Work Phone: Start: 06-29-2021 ECHO, Provider: LI BLUEI 2,MG CARD, Status: Pen, Time: 12:50 PM ECHO, Provider: [facility] HAKEEM HHVI 2,MG CARD, Status: Pen, Time: 12:50 PM [facility] Work Phone: Start: 06-01-2021 COVID-19 VACCINE (4 - Booster for Pfizer series) COVID-19 VACCINE (4 - Booster for Pfizer series) [facility] Start: 06-01-2021 Covid-19 Vaccine (4 - Pfizer series) Covid-19 Vaccine (4 - Pfizer series) [facility] Start: 04-22-2021 DEPRESSION ASSESSMENT DEPRESSION ASS ESSMENT [facility] Start: 04-05-2021 Patient encounter procedure Cardiology [facility] Start: 04-05-2021 BRODIE, Provider : Ju Palacios, Status: Pen, Time: 11:20 AM BRODIE, Provider: Ju Palacios, Status: Pen, Time: 11:20 AM DL-Hktmswltqu-GMM [facility] [address] DO Work Phone: Start: 03-27-2021 BRODIE, Provider : Ju Palacios, Status: Pen, Time: 2:00 PM CONNERFUVEDWARDE, Provider: Ju Palacios, Status: Pen, Time: 2:00 PM YE-Fqvgvwnhxj-TAX [facility] [address] [place] Work Phone: Start: 03-25-2021 End: 03-26-2022 Torsemide 20 mg Oral Tablet Daily ; Tablet (DEMADEX)DOSE = 20 mg Oral Daily, PRN weight gain of 3 lbs in 2 days Start: 25-Mar-2021 End: 25-Mar-2022 Ordered: 25-Mar-2021 Ju Palacios Intent [facility] Start: 03-24-2021 End: 03-25-2022 Warfarin 0ral Tablet [...] held 1 hour pre and post dose [facility] Comment on above: Give dose at 1800, u nless otherwise specified by physician.Enteral feedings are held 1 hour pre and post dose Start: 03-23-2021 End: 03-23-2022 [facility] Comment on above: IF patient HAS a [...] Ju Palacios, Status: Pen, Time: 1:00 PM YV-Nxmrxxnlqx-GNY [facility] [address] [place] Work Phone: Start: 03-07-2021 FUVVAD, Provider: Ju Palacios, Status: Pen, Time: 2:00 PM FUVVAD, Provider: Ju Palacios, Status: Pen, Time: 2:00 PM TQ-Kfpqwuijwx-KZH [facility] [address] [place] Work Phone: Start: 11-29-2020 FUVVAD, Provider: Ju Palacios, Status: Pen, Time: 10:00 AM FUVVAD, Provider: Ju Palacios, Status: Pen, Time: 10:00 AM QI-Zgvholzdud-CBD [facility] [address] [place] Work Phone: Start: 01-26-2020 Echocardiography Echocardiogram MG-C ardiology-[facility] [address] [place] Work Phone: Start: 05-08-2019 Lipid panel Lipid Panel [facility] Start: 04-17-2019 Pneumococcal Vaccine : Pediatrics (0 to 5 Years) and At-Risk Patients (6 to 64 Years) (2 - PPSV23 or PCV20) Pneumococcal Vaccine: Pediatrics (0 to 5 Years) and At-Risk Patients (6 to 64 Years) (2 - PPSV23 or PCV20) [facility] Start: 04-17-2019 Pneumococcal Vaccine : Pediatrics (0 to 5 Years) and At-Risk Patients (6 to 64 Years) (2 of 2 - PPSV23 or PCV20) Pneumococcal Vaccine: Pediatrics (0 to 5 Years) and At-Risk Patients (6 to 64 Years) (2 of 2 - PPSV23 or PCV20) [facility] Start: 2016 PROSTATE CANCER SCREENING DISCUSSION PROSTATE CANCER SCREENING DISCUSSION [facility] Start: 01-11-2016 Screening for malign ant neoplasm of lung Lung Cancer Screening [facility] Start: 08-06-2011 Influenza vaccination LUNG CANCER SC REENING [facility] Start: 08-06-2011 Screening for malign ant neoplasm of lung Lung Cancer Screening [facility] Start: 08-06-2011 SHINGRIX VACCINE (1 of 2) SHINGRIX VACCINE (1 of 2) [facility] Start: 2006 COLOGUARD (FIT-DNA) COLOGUARD (FIT-D NA) [facility] Start: [address] [facility] Start: 2006 COLORECTAL CANCER SCREENING COLORECTAL CANCER SCREENING [facility] Start: [address] COLONOGRAPHY [facility] Start: 2006 FECAL OCCULT BLOOD FECAL OCCULT BLOO D [facility] Start: 2006 Screening for malign ant neoplasm of colon [facility] Start: 2006 SIGMOIDOSCOPY SIGMOIDOSCOPY [facility] Start: 1996 Lipid 1996 panel - Serum or Plasma Lipid Screening [facility] Start: 1996 LIPID SCREEN LIPID SCREEN [facility] Start: 1980 Urine microalbumin profile DTAP,TDAP,TD (1 - Tdap) [facility] Start: 1980 Urine screening for protein Diabetes: Urine Protein Screening [facility] Start: 1980 Zoster Vaccines (1 o f 2) Zoster Vaccines (1 of 2) [facility] Start: 08-06-1979 ANNUAL PCP TEAM PERSONNEL RESEARCH SCIENTIST WILL DISEASE VISIT ANNUAL PCP TEAM CHRONIC DISEASE VISIT [facility] Start: 08-06-1979 Anxiety Screening Anxiety Screening [facility] Start: 08-06-1979 Depression Screening Depression Scre ening [facility] Start: 08-06-1979 HEPATITIS [facility] Start: 08-06-1979 Hepatitis C screening Hepatitis C [facility] Start: 08-06-1979 HIV SCREENING HIV SCREENING [facility] Start: 1973 Adult depression screening assessment DEPRESSION SCREENING [facility] Start: 08-06-1971 Diabetic foot examination Diabetes: Foot Exam [facility] Start: 08-06-1971 Glaucoma screening Diabetes: R etinopathy Screening [facility] Start: 1962 MMR Vaccines (1 of 1 - Standard series) MMR Vaccines (1 of 1 - Standard series) [facility] Start: 1961 HIV screening HIV Screening [facility] Start: 1961 Medicare Annual Wellness (AWV) Medicare Annual Wellness (AWV) [facility] Start: 1961 Medicare Annual Wellness Visit Medicare Annual Wellness Visit (AWV) [facility] Start: 1961 Screening for malign ant neoplasm of colon [facility] End: 05-22-2023 Cardiac Device Check - In Clinic Cardiac Device Check - In Clinic Implantable Cardiac Device Routine Heart failure (CMS/HCC) Once for 1 Occurrences starting 05/22/2023 until 05/22/2023 [facility] Service Area Work Phone: Comment on above: Once for 1 Occurrenc es starting 05/22/2023 until 05/22/2023 Cardiac Device Check - Inpatient Cardiac Device Check - Inpatient Implantable Cardiac Device Routine ICD (implantable cardioverter-defibrilla tor) discharge HFrEF (heart failure with reduced ejection fraction) (CMS/HCC) 05/22/2023 2:35 PM EST [facility] Work Phone: End: 05-27-2023 Cardiac device check - Remote [facility] Service [facility] Work Phone: Comment on above: Once for 1 Occurrenc es starting 05/27/2023 until 05/27/2023 End: 05-29-2023 Cardiac device check - Remote [facility] Service [facility] Work Phone: Comment on above: Once for 1 Occurrenc es starting 05/29/2023 until 05/29/2023 End: 06-11-2023 Cardiac device check - Remote [facility] Service Area Work Phone: Comment on above: Once for 1 Occurrenc es starting 06/11/2023 until 06/11/2023 End: 06-14-2023 Cardiac device check - Remote [facility] Service Area Work Phone: Comment on above: Once for 1 Occurrenc es starting 06/14/2023 until 06/14/2023 End: 06-17-2023 Cardiac device check - Remote [facility] Service [facility] Work Phone: Comment on above: Once for 1 Occurrenc es starting 06/17/2023 until 06/17/2023 CBC panel - Blood by Automated count CBC Lab Routine Morning draw (Lab) until discontinued starting 05/20/2023, 5 completed [facility] Work Phone: Comment on above: Morning draw (Lab) u ntil discontinued starting 05/20/2023, 5 completed CBC W Auto Different ial panel - Blood COMPLETE BLOOD COUNT AND DIFFERENTIAL Lab Routine Smoldering multiple myeloma 10/15/2023 12:[address] [facility] Chronic hepatitis differentiation between hepatitis B and C virus panel - Serum or Plasma HEP REMOTE PANEL BL Lab Routine MGUS (monoclonal gammopathy of unknown significance) Thrombocytopenia (HCC) 09/21/2021 12:04 PM EDT [facility] Work Phone: ECG 12 Lead ECG 12 Lead ECG Routine 05/22/2023 6:33 PM EST [facility] Work Phone: Glucose [Mass/volume ] in Serum or Plasma [facility] Service Area Work Phone: Comment on [...] immunodeficiency virus (HIV) 09/21/2021 12:04 PM EDT [facility] Work Phone: End: 01-03-2023 IMMUNOFIXATION SCREEN, SERUM IMMUNOFIXATION SCREEN, SERUM Lab Routine Multiple myeloma not having achieved remission (HCC) Once for 1 Occurrences starting 01/03/2023 until 01/03/2023 [facility] Comment on above: Once for 1 Occurrenc es starting 01/03/2023 until 01/03/2023 Lactate dehydrogenas e [Enzymatic activity/volume] in Serum or Plasma by Lactate to pyruvate reaction Lactate Dehydrogenase Lab Routine Morning draw (Lab) until discontinued starting 05/20/2023, 5 completed [facility] Work Phone: Comment on above: Morning draw (Lab) u ntil discontinued starting 05/20/2023, 5 completed Magnesium [Mass/volu me] in Serum or Plasma Magnesium Lab Routine Morning draw (Lab) until discontinued starting 05/20/2023, 5 completed [facility] Work Phone: Comment on above: Morning draw (Lab) u ntil discontinued starting 05/20/2023, 5 completed MONOCLONAL PROT UR W/INTERP MONOCLONAL PROT UR W/INTERP Lab Routine MGUS (monoclonal gammopathy of unknown significance) Thrombocytopenia (HCC) 09/21/2021 1:04 PM T [facility] Work Phone: MONOCLONAL PROTEIN, SERUM (BLOOD) MONOCLONAL PROTEIN, SERUM (BLOOD) Lab Routine MGUS (monoclonal gammopathy of unknown significance) Thrombocytopenia (HCC) 09/21/2021 12:04 PM T [facility] Work Phone: MONOCLONAL PROTEIN, SERUM (BLOOD) MONOCLONAL PROTEIN, SERUM (BLOOD) Lab Routine Multiple myeloma not having achieved remission (HCC) 01/03/2023 12:[address] [facility] End: 01-03-2023 PROTEIN ELECTROPHORESIS SERUM (P) PROTEIN ELECTROPHORESIS SERUM (P) Lab Routine Multiple myeloma not having achieved remission (HCC) Once for 1 Occurrences starting 01/03/2023 until 01/03/2023 [facility] Work Phone: Comment on above: Once for 1 Occurrenc es starting 01/03/2023 until 01/03/2023 PROTEIN ELECTROPHORE SIS SERUM W/INTERP PROTEIN ELECTROPHORESIS SERUM W/INTERP Lab Routine MGUS (monoclonal gammopathy of unknown significance) Thrombocytopenia (HCC) 09/21/2021 12:04 PM EDT [facility] Work Phone: PROTEIN ELECTROPHORE SIS SERUM W/INTERP PROTEIN ELECTROPHORESIS SERUM W/INTERP Lab Routine Multiple myeloma not having achieved remission (HCC) 01/03/2023 12:[address] [facility] Prothrombin time (PT) Protime-IN R Lab Routine Morning draw (Lab) until discontinued starting 05/20/2023, 5 completed [facility] Work Phone: Comment on above: Morning draw (Lab) u ntil discontinued starting 05/20/2023, 5 completed End: 10-21-2022 Radiologic examination osseous survey compl XR BONE SURVEY ROUTINE Radiology Routine MGUS (monoclonal gammopathy of unknown significance) Thrombocytopenia (HCC) Encounter for screening for human immunodeficiency virus (HIV) 1 Occurrences starting 09/21/2021 until 10/21/2022 [facility] Work Phone: Comment on above: 1 Occurrences starti ng 09/21/2021 until 10/21/2022 Renal function 2000 panel - Serum or Plasma Renal function panel Lab Routine Morning draw (Lab) until discontinued starting 05/20/2023, 5 completed [facility] Work Phone: Comment on above: Morning draw (Lab) u ntil discontinued starting 05/20/2023, 5 completed End: 10-21-2022 Us abdominal real time w/image limited [facility] Work Phone: Comment on above: 1 Occurrences starti ng 09/21/2021 until 10/21/2022 FG-Qjssayxtbw-W [facility] [address] [place] Work Phone: [facility] NEGATED: Highlighted row has been ruled out! Planned Goals not documented AB-Ksgbnayyqz-XFZ [facility] [address] [place] Work Phone: Immunizations Immunization Date Immunization Notes Care Provider Archana donohue 01-25-2023 influenza virus vacc ine, unspecified formulation Esther Michoacano [facility] 04-06-2021 Pfizer-BioNTech COVI D-19 Vacc 30 MCG/0.3ML Intramuscular Suspension Joleen Sri Herrera Work Phone: [facility] 01-20-2021 influenza, injectabl e, quadrivalent, contains preservative [facility] 01-20-2021 influenza virus vacc ine, unspecified formulation Ailyn Friend MD Work Phone: [facility] 07-30-2020 diphtheria, tetanus toxoids and pertussis vaccine Joleen Sri Herrera Work Phone: [facility] 07-13-2020 Pfizer-BioNTech COVI D-19 Vacc 30 MCG/0.3ML Intramuscular Suspension [facility] Work [facility]: [facility] Comment on above: Series: 06-22-2020 Pfizer-BioNTech COVI D-19 Vacc 30 MCG/0.3ML Intramuscular Suspension Joleen Sri [facility] Work Phone: [facility] Comment on above: Series: 01-14-2020 influenza, injectabl e, quadrivalent, contains preservative Joleen Herrera Work Phone: [facility] 02-20-2019 pneumococcal conjuga te vaccine, 13 valent Joleen Herrera Work Phone: [facility] 02-05-2018 influenza, injectabl e, quadrivalent, contains preservative Joleen Sri Herrera Work Phone: [facility] 02-13-2017 influenza, injectabl e, quadrivalent, contains preservative Joleen Sri Herrera Work Phone: [facility] 01-17-2016 influenza, injectabl e, madin lorne canine kidney, preservative free Joleen Sri Herrera Work Phone: RO-Nlftgyrucy-HCW [facility] [address] [place] Work Phone: Payers Date Payer Category Payer Unknown 2019 Medicaid MEDICAID MEDICAI D [id number] 2019-Present [address] [place] [address] [id number] 2019 Medicaid [id number] 2016 Unknown [id number] 2012 Medicare MEDICARE MEDICAR E A AND B [id number] 2012-Present [phone] [place] [address] Medicare [id number] 2012 Medicare [id number] 1.13.159.2.7.3.6 [id number] 1961 Unknown [id number] 2.16.840.1.433741.3.579.2.647 1961 Unknown [id number] 2.16.840.1.985462.3.579.2.647 1961 Unknown [id number] 2.16.840.1.023760.3.579.2.647 1961 Unknown [id number] 2.16.840.1.155938.3.579.2.647 1961 Unknown [id number] 2.16.840.1.846016.3.579.2.593 1961 Unknown [id number] 2.16.840.1.367862.3.579.2.593 1961 Unknown [id number] 2.16.840.1.033153.3.579.2.593 1961 Unknown [id number] 2.16.840.1.345265.3.579.2.593 1961 Unknown [id number] 2.16.840.1.442064.3.579.2.593 1961 Unknown [id number] 2.16.840.1.747331.3.579.2.593 1961 Unknown [id number] 2.16.840.1.906759.3.579.2.593 1961 Unknown [id number] 2.16.840.1.869989.3.579.2.593 1961 Unknown [id number] 2.16.840.1.078894.3.579.2.593 1961 Unknown [id number] 2.16.840.1.603261.3.579.2.593 1961 Unknown [id number] 2.16.840.1.606302.3.579.2.593 1961 Unknown [id number] 2.16.840.1.635098.3.579.2.727 1961 Unknown [id number] 2.16.840.1.425138.3.579.2.356 1961 Unknown [id number] 2.16.840.1.758064.3.579.2.356 1961 Unknown [id number] 2.16.840.1.682150.3.579.2.1259 1961 Unknown [id number] 2.16.840.1.906698.3.579.2.1259 1961 Unknown [id number] 2.16.840.1.157515.3.579.2.1259 1961 Unknown [id number] 2.16.840.1.409914.3.579.2.1244 1961 Unknown [id number] 2.16.840.1.270193.3.579.2.1244 1961 Unknown [id number] 2.16.840.1.547969.3.579.2.1245 1961 Unknown [id number] 2.16.840.1.709427.3.579.2.1244 1961 Unknown [id number] 2.16.840.1.968517.3.579.2.1244 1961 Unknown [id number] 2.16.840.1.218862.3.579.2.1244 1961 Unknown [id number] 2.16.840.1.172486.3.579.2.1244 1961 Unknown [id number] 2.16.840.1.831776.3.579.2.1244 1961 Unknown [id number] 2.16.840.1.640239.3.579.2.1244 1961 Unknown [id number] 2..840.1.770928.3.579.2.1244 1961 Unknown [id number] 2.16.840.1.348731.3.579.2.1244 1961 Unknown [id number] 2.16.840.1.240086.3.579.2.1244 1961 Unknown [id number] 2.16.840.1.991692.3.579.2.1244 1961 Unknown [id number] 2..840.1.046315.3.579.2.1244 1961 Unknown [id number] 2.16.840.1.435165.3.579.2.1244 1961 Unknown [id number] 2.16.840.1.041510.3.579.2.1244 1961 Unknown [id number] 2.16.840.1.330297.3.579.2.1244 1961 Unknown [id number] 2.16.840.1.567828.3.579.2.1244 1961 Unknown [id number] 2.16.840.1.084198.3.579.2.1245 1961 Unknown [id number] 2.16.840.1.835442.3.579.2.1247 1959 Medicare [id number] 1959 Self-pay [id number] Medicare [id number] Social History Date Type Detail Facility Start: 09-19-2021 End: 09-12-2022 Activities of daily living (ADL's), independent Activities of daily living (ADL's), independent [facility] Tobacco smoking consumption unknown [facility] Start: 09-19-2021 End: 01-10-2022 Tobacco smoking status NHIS Ex-smoker [facility] Start: 04-22-1975 End: 04-22-2010 History of tobacco use Current smoker [facility] Start: 04-22-1975 End: 04-22-2010 History of tobacco use Cigarette Smoker [facility] Start: 09-19-2021 End: 01-10-2022 Tobacco use and exposure Smokeless tobacco non-user [facility] Start: 09-21-2021 End: 09-12-2022 Alcohol intake Ex-drinker (finding) [facility] Start: 1960 Sex Assigned At Not on file [facility] [place] Start: 09-11-2021 End: 09-10-2023 Exposure to SARS-CoV-2 (event) Not sure [facility] History of tobacco use Passive smoker [facility] Start: 09-12-2022 End: 01-11-[address] [facility] Adult Depression Screening Assessment [address] [facility] Start: 05-24-2023 Alcohol intake Current drinke r of alcohol (finding) [facility] Work Phone: Has the [employer], [employer], or [employer] threatened to shut off services in your home in past 12Mo No [facility] Do you belong to any clubs or organizations such as catholic groups, unions, fraternal or athletic groups, or school groups? Yes [facility] Work Phone: How often to you hav e a drink containing alcohol? Never [facility] Work Phone: Do you feel stress - tense, restless, nervous, or anxious, or unable to sleep at night because your mind is troubled all the time - these days [OSQ] Not at all [facility] Work Phone: (I/We) worried wheth er (my/our) food would run out before (I/we) got money to buy more. Never true [facility] Work Phone: NEGATED: Highlighted row - - DH-Tkfcclxipd-Bijiux s Moore Work Phone: Medical Equipment Procedure Code Equipment Code Equipment Origin al Text Equipment Identifier Dates Start: 10-06-2016 BD Pen Needle Mi ni U/F 31G X 5 MM Quantity: 100 Refills: 0 Start : 06-Oct-2016 Active Start: 10-06-2016 Defibrillator, I cd, Dual Chamber, Vahe Zimmerman [id number] - [id number] Start: 05-22-2023 Hm2 [id number]_imp Start: 08-23-2016 USE UP TO 6 TIME S DAILY FOR INJECTIONS [id number] Start: 08-15-2022 USE UP TO 6 TIME S DAILY FOR INJECTIONS [id number] Start: 08-15-2022 Functional Status Date Assessment Result Facility 04-07-2023 Functional Status N/A [facility] Functional observable [facility] NEGATED: Highlighted row Functional performance Functional status health issues are not documented Disease JU-Jjrqitsgah-QjlxaoSouleymane Tineo Work Phone: Mental Status Date Assessment Result Facility 12-28-2021 Cognitive functi ons [id number] [facility] 03-27-2021 Cognitive functi ons :47 [facility] NEGATED: Highlighted row Cognitive function [Interpretation] Cognitive status health issues are not documented Disease FE-Fuvmljqfgj-HbgrgqSouleymane Tineo Work Phone: Clinical Notes 08-20-2013 to 10-25-2023 Esther Ríos LSW - 10/25/2023 1:21 PM EDTTelephone Encounter - Liao SecKizzy - 10/18/2023 1:02 PM EDTTelephone Encounter - Liao Sec, Kizzy M - 10/18/2023 1:02 PM EDTPatient Instructions Note Date & Type Note Facility 10-25-2023 Note HNO ID: [id number] Author: ESTHER RÍOS LSW Service: ? Author Type: Sanforizing Machine Operator Type: Progress Notes Filed: 10/25/2023 13:25 Note Text: [facility] [place] [facility] [place] for a non-oncology treatment. No psychosocial assessment is indicated. TING Toro Goals of Care Advance Directives are not on file. SIGNATURE: WOJCIECH Toro PATIENT NAME: Terry Villalpando DATE: October 25, 2023 TIME: 1:25 PM PAGER/CONTACT #: [facility] 10-25-2023 History of Present illness Narrative Patient appears [place] [facility] [place] for a non-oncology treatment. No psychosocial assessment is indicated. TING Toro Goals of Care Advance Directives are not on file. SIGNATURE: WOJCIECH Toro PATIENT NAME: Terry Villalpando DATE: October 25, 2023 TIME: 1:25 PM PAGER/CONTACT #: documented in this encounter [facility] 10-18-2023 Telephone encounter Note Spoke with Terry and he is scheduled for Monoferric on 10-28-23. [facility] 10-18-2023 Miscellaneous Notes Spoke with Terry [...] PSS: please call pt and schedule. Thanks Mihcael Greer RN ----- Message from Ailyn Friend MD sent at 10/16/2023 4:46 PM EDT ----- Please let him know that he is low On Iron and will benefit from IV Iron if he is interested. Let me know documented in this encounter [facility] 10-17-2023 Telephone encounter Note Monoferric orders arew in [facility] 10-17-2023 Telephone encounter Note Call placed to patient, no answer. Unable to leave a VM as phone just rings. Will attempt at a later time. Karlie Villarreal [facility] 10-17-2023 Telephone encounter Note Discussed results with patient and he would like to get IV iron. KK: please place orders. PSS: please call pt and schedule. Thanks Michael Greer RN [facility] Work Phone: 10-17-2023 Telephone encounter Note ----- Message from Ailyn Friend MD sent at 10/16/2023 4:46 PM EDT ----- Please let him know that he is low On Iron and will benefit from IV Iron if he is interested. Let me know [facility] 10-15-2023 Note HNO ID: [id number] Author: AILYN FRIEND MD Service: ? Author Type: Physician Type: Progress Notes Filed: 10/15/2023 12:48 Note Text: PATIENT NAME: Terry Villalpando [facility] NO.: [id number] ATTENDING PHYSICIAN: Ailyn Friend MD DATE OF SERVICE: October 15, 2023 Some of the elements of this note have been copied from my previous progress note dated 01/11/2023. All the information has been reviewed carefully. Dear Joleen Herrera, CAREER PLACEMENT SERVICES COUNSELOR, here is an update on a follow up visit on male Terry Villalpando at the clinic October 15, 2023 Diagnosis: SMM and thrombocytopenia Treatment History: March 2021, admitted to [facility] for blood loss anemia presumed to be [...] me 01/10/2022 HPI: Terry Villalpando is a 63 [...] Reflexes normal and (more content not included)... [facility] 10-15-2023 History of Present illness Narrative PATIENT NAME: Terry Villalpando CLINIC NO.: [id number] ATTENDING PHYSICIAN: Ailyn Friend MD DATE OF [...] thrombocytopenia Treatment History: March 2021, admitted to [facility] for blood loss anemia presumed to be [...] g/dL, KL ratio 11 Established care with ri 01/10/2022 HPI: Terry Villalpando is a 63 [...] Range Status 01/03/2023 12.3 % Final Abs [place] Date Value Ref Range Status 01/03/2023 0.80 [...] do not hesitate to contact me at [phone]. Ailyn Friend MD Hematology/Medical Oncology [facility] Sera Munson spent a total of 30 minutes on the date of the service which included preparing to see the patient, vnjk-fu-dman patient care, completing clinical documentation, obtaining and/or reviewing separately obtained history, performing a medically appropriate examination, and ordering medications, tests, or procedures. CC: Joleen Herrera CNP documented in this encounter [facility] 09-10-2023 History of Present illness Narrative VAD Door To Door Fundraising Collector: Len Guardado VAD Coordinator: Poly Dominguez Primary Care Physician: Joleen Herrera APRN-JENNIFER Patient's Location: [facility] [address] Date of Visit: 09/10/2023 2:00 PM EDT Location of visit: [facility] Type of Visit: LVAD followup Type of VAD: HM2 Implant Date: 08/23/2016 Reason for VAD: NICM Intent: Long-Term (reason: patient decision) HPI / Summary: Terry Villalpando is a very pleasant 63 y.o. male presenting for management of Stage D HFrEF s/p HM II LVAD (08/2013 at [facility]; exchanged 07/2016 at [facility] for pump thrombosis) with associated RV dysfunction, [...] edema. NEURO: PAULINO Brown, Oriented to plan Medications Current Outpatient Medications [...] oral, Daily before breakfast fish oil concentrate ([place]an[place]-3) 120-180 mg capsule 2 capsules, oral, 2 [...] as directed per After Visit Summary. Heart Elli III interrogation (personally interrogated), no significant alarms noted Assessment and Plan Terry Villalpando is a very pleasant 63 y.o. 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, (personal choice not interested in transplant) -Antithrombotic therapy: c/w ASA 81 mg daily and warfarin -JENN/ARB/ARNI: Lisinopril 5mg daily -BB: c/w carvedilol 6.25 mg BID -AA: c/w spironolactone 25 mg daily -Diuretic: c/w torsemide to 20 mg three times a week (MWFri) -c/w dapagliflozin 10 mg daily -c/w digoxin 125 mcg on MWF - senior care anticoagulation secondary to LVAD - -c/w warfarin (target INR 2-3); f/u [facility] 2) VT and Vfib episodes [...] and Cardiac Transplantation Division of Cardiovascular Medicine [facility] [place] [facility] documented in this encounter [facility] Work Phone: 09-10-2023 Instructions Rupali Reece RN - 09/10/2023 2:00 PM EDT Patient Instructions: -Please bring a list of your medications to every visit. -If you have any questions or concerns, please contact the LVAD office at [phone], option 3 or the direct line at [phone]. Please state that you are an LVAD patient. If it is after hours and it is an emergency, please page the LVAD pager by calling [phone] #[phone] - Continue current medications with the exception of: --Please take torsemide daily until you lose 2-3lbs due to leg swelling - Labwork: CBC, CMP, LDH, DIG - Imaging/Procedures: ECHO - Referrals: - Followup: 3 months, we will call you with your appointment documented in this encounter [facility] Work Phone: 06-05-2023 History of Present illness Narrative VAD Door To Door Fundraising Collector: Len Guardado VAD Coordinator: Poly Dmoinguez Primary Care Physician: LUBNA Shepherd Patient's Location: [place] [address] Date of Visit: 06/05/2023 2:00 PM EST Location of visit: [facility] Type of Visit: LVAD followup Type of VAD: HM2 Implant Date: 08/23/2016 Reason for VAD: NICM Intent: Long-Term (reason: patient decision) HPI / Summary: Terry Villalpando is a very pleasant 62 y.o. male presenting for management of Stage D HFrEF s/p HM II LVAD (08/2013 at [facility]; exchanged 07/2016 at [facility] for pump thrombosis) with associated RV dysfunction, [...] of symptoms of negative unless discussed above. @[facility] Medical History: He has a past medical history of Awaiting organ transplant status (01/12/2016), CHF (congestive heart failure) ([facility]), COPD (chronic obstructive pulmonary disease) ([facility]), Diabetes mellitus ([facility]), Disease of thyroid gland, Encounter for other preprocedural examination (02/15/2016), Hypertension, and Unspecified systolic (congestive) heart failure ([facility]) (12/04/2019). Surgical Hx: He has a past [...] Oriented to plan Labs: CMP: Recent Labs 05/24/23 0727 05/23/23 0835 05/22/23 [...] 2.44* 2.15 -- 2.05 2.23 Recent Labs 05/24/23 0727 05/23/23 0835 05/22/23 [...] -- -- -- -- -- -- 22 23 16 14 BILITOT -- -- -- -- -- -- 1.2 1.0 0.9 0.8 0.9 < > = values in this interval not displayed. CBC: Recent Labs 05/24/23 0705/23/23 0835 05/22/23 0607 05/21/23 0514 05/20/23 0353 WBC 6.9 7.9 6.0 6.1 6.3 HGB 14.3 15.6 14.8 14.0 14.2 HCT 44.0 48.6 45.5 40.8* 41.9 PLT 120* 141* 130* 156 119* MCV 95 96 96 92 91 COAG: Recent Labs 06/04/23 0000 05/31/23 0000 05/28/23 0000 12/27/21 1048 12/27/21 0542 12/27/21 0146 12/26/21200603/24/21 1933 03/23/21215309/12/17 0506 09/11/17 1148 INR 2.20 2.20 2.00 [...] , CRP , PROCAL in the last 96551 hours. No results found for the last 90 days. Notable Studies: EKG: Encounter Date: 05/19/23 ECG 12 Lead Result Value Ventricular Rate 81 Atrial Rate 53 QRS Duration 134 QT Interval 546 QTC Calculation(Bazett) 634 R Swanzey -89 T Swanzey 91 QRS Count 14 Q Onset 198 [...] unspecified provider. Cardiac Catheterization: Adult Cath Narrative [facility], [employer], [address] [place] [address] Cardiovascular Catheterization Report Patient Name: TERRY VILLALPANDO Performing Physician: [id number] Cooper Vaca DO Study Date: 03/01/2020 Verifying Physician: [id number] Cooper Vaca DO MRN/PID: [id number] Door To Door Fundraising Collector: Accession/Order#: [id number] Fellow: Eder Espinosa MD Date of : 1960 Fellow: Gender: M Referring Physician: Admit Date: Referring Physician: x Surgeon: Referring Physician: [id number] Janene Negrete MD Study: Right Heart Catheterization [...] cannulated with a micropuncture technique. A 7 Belarusian sheath was placed in the vein. A [...] Right Heart Cath O2/Cardiac output without biopsy (RHC)-48053; Moderate Sedation Services initial 15 minutes patient >5 years-13652 ICD 10 Codes: I50.23-Acute on chronic systolic (congestive) heart failure [id number] Cooper Vaca DO Performing Physician cc Report to: x cc Report to: x cc Report to: [id number] Janene Negrete MD No results found for [...] oral, Daily before breakfast fish oil concentrate ([place]-3) 120-180 mg capsule 2 capsules, oral, 2 [...] ICD s/p HM II LVAD (08/2013 at [facility]; exchanged 07/2016 at [facility] for pump thrombosis) with associated RV dysfunction ABO: A Therapy: senior care, (personal choice not interested in transplant) COVID [...] 125 mcg on MWF (03/31/21 di.4) 2) senior care anticoagulation secondary to LVAD -INR 3.3 on 06/22/21 -c/w warfarin (target INR 2-3); f/u [facility] 3) AI -Mild-moderate on echo [...] 03/31/21 -Sent iron studies and ferritin to [facility]-patient to have drawn on 04/06/21 and [...] concerns, please contact the LVAD office at [phone], option 3 or the direct line at [phone]. Please state that you are an LVAD patient. If it is after hours and it is an emergency, please page the LVAD pager by calling [phone] #[phone] - Continue current medications - Followup: 3 months in clinic Orders: No orders of the defined types were placed in this encounter. Followup Appts: Future Appointments Date Time Provider Department Center 06/05/2023 2:00 PM LUBNA Prieto [facility] 06/05/2023 2:30 PM WOJCIECH Lundberg [facility] LUBNA Prieto Section of Advanced Heart Failure and Cardiac Transplantation Division of Cardiovascular Medicine [facility] documented in this encounter [facility] Work Phone: 05-27-2023 History of Present illness Narrative Associated Problem(s): History of implantable cardioverter-defibrillator (ICD) insertion Continue with cardiology Associated Problem(s): Type 2 diabetes mellitus, with long-term current use of insulin ([facility]) Is now being compliant with use insulin daily doses and coverage A1c 8.9%, will fu in 4 weeks for recheck and with blood glucose readings as well No changes in doses, as he was not compliant with use of insulin steadily Associated Problem(s): Cardiac dysrhythmia Recent hospitalization with has new pacemaker /AICD placed Associated Problem(s): Chronic systolic heart failure ([facility]) Continue with cardiology and current meds Last Saturday old pacemaker shocked pt 3x went to the hospital got a new pace maker got home Saturday evening [facility] Got to the hospital and his heart [...] Past Medical History: Diagnosis Date Acquired hypothyroidism ([facility]) 04/10/2023 Bilateral lower extremity edema 04/10/2023 Cardiac dysrhythmia Chronic systolic heart failure ([facility]) 04/10/2023 COPD (chronic obstructive pulmonary disease) ([facility]) 05/27/2023 Diabetes (CMS/HCC) 04/10/2023 History of implantable [...] Visit BMI 33.0-33.9,adult documented in this encounter [facility] 05-24-2023 Nurse Note Patient discharged home from [facility]5 this afternoon. Patient was taken off telemetry monitoring and IV were removed intact. Discharge instructions were given to and reviewed with patient at bedside. Meds to beds were delivered. Patient was taken off floor in wheelchair by patient transport. All belongings and LVAD equipment present with patient. Esther Pugh RN [facility] 05-24-2023 Nurse Note Patient discharged home [...] HeartMate Serial Numbers HeartMate Equipment Tracking/Serial Numbers Yard [employer] Car Supervisor: car machine i trimmer Battery Clip 1: [id number] Battery Clip 2: [id number] Rechargeable Battery 1: [id number] Rechargeable Battery 2: [id number] Rechargeable Battery 3: [id number] Rechargeable Battery 4: [id number] Go Gear Vest: yes Programmed Backup Color Maker Formulator: [id number] Primary Controller: [id number] Black Emergency Red Tag Bag: yes HeartMate Tracking HeartMate Equipment Transfer Transfer From: Heart Failure Unit Transfer To: [place] [address] Yard General Car Supervisor: No Battery Clip 1: Yes Battery Clip [...] No Go Gear Vest: Yes Programmed Backup Color Maker Formulator: Yes Primary Controller: Yes Mobile Power Unit: [...] PM Pt transferred by this RN to [place] [address] in stable condition. Pt had all belongings, cell phone, cell phone machine i trimmer, LVAD spare batteries (4 batteries), spare controller, and all VSS were stable. Report called prior to transfer. Went to see patient at bedside. Replaced backup batteries in primary and secondary controller. Verified expiration dates on 14v batteries and marked with green stickers. Sent log files to [facility] due to flow flashing between 3.7 and [...] HeartMate Serial Numbers HeartMate Equipment Tracking/Serial Numbers Yard [employer] Car Supervisor: car machine i trimmer Battery Clip 1: [id number] Battery Clip 2: [id number] Rechargeable Battery 1: [id number] Rechargeable Battery 2: [id number] Rechargeable Battery 3: [id number] Rechargeable Battery 4: [id number] Go Gear Vest: yes Programmed Backup Color Maker Formulator: [id number] Primary Controller: [id number] Black Emergency Red Tag Bag: yes HeartMate Tracking HeartMate Equipment Transfer Transfer From: Admission Yard [employer] Car Supervisor: No Battery Clip 1: Yes Battery Clip [...] No Go Gear Vest: Yes Programmed Backup Color Maker Formulator: Yes Primary Controller: Yes Mobile Power Unit: No Black Emergency Red Tag Bag: Yes HeartWare Serial Numbers HeartWare Tracking VAD Discharge Educations Education Documentation No documentation found. Enedina Stauffer RN Date: 05/19/2023 Time: 7:58 PM 1707:: time-out for cardioversion, BHAVNA Benavides NP, Dr Dilshad GUZMAN, Dr. Braxton Anesthesia all present. 1708: 1 mg versed given 170: 25 mcg fentanyl given. 171: 25 mcg fentanyl given. 171 200j shock given, a-v paced rhythm achieved 171 EKG obtained documented in this encounter [facility] Work Phone: 05-24-2023 Nurse Note VAD [...] HeartMate Serial Numbers HeartMate Equipment Tracking/Serial Numbers Yard [employer] Car Supervisor: car machine i trimmer Battery Clip 1: [id number] Battery Clip 2: [id number] Rechargeable Battery 1: [id number] Rechargeable Battery 2: [id number] Rechargeable Battery 3: [id number] Rechargeable Battery 4: [id number] Go Gear Vest: yes Programmed Backup Color Maker Formulator: [id number] Primary Controller: [id number] Black Emergency Red Tag Bag: yes HeartMate Tracking HeartMate Equipment Transfer Transfer From: Heart Failure Unit Transfer To: [place] [address] Yard [employer] Car Supervisor: No Battery Clip 1: Yes Battery Clip [...] No Go Gear Vest: Yes Programmed Backup Color Maker Formulator: Yes Primary Controller: Yes Mobile Power Unit: No Black Emergency Red Tag Bag: Yes HeartWare Serial Numbers HeartWare Tracking VAD Discharge Discharge Documentation HF Post Discharge Appointment Made: Yes INR Referral and Management Arranged: Yes INR Range: 2-3 AICD On: Yes Equipment Checklist/Log Numbers Recorded: Yes Educations Education Documentation No documentation found. Esther Pugh RN Date: 05/24/2023 Time: 3:44 PM [facility] Work Phone: 05-24-2023 Hospital course Narrative [...] concentrate 120-180 mg capsule; Commonly known as: [place]-3 fluticasone 50 mcg/actuation nasal spray; Commonly known [...] Department Center 06/05/2023 2:00 PM [facility] 06/05/2023 2:30 PM WOJCIECH [facility] LUBNA Prieto documented in this encounter [facility] Work Phone: 05-24-2023 Miscellaneous Notes PATIENT: TERRY VILLALPANDO : 1960 ADMIT DATE: 05/19/2023 11:50 AM DISCH DATE: RESPONDING PROVIDER #: [id number] PROVIDER RESPONSE TEXT: Chronic Systolic HF CDI [...] (specify) Outcome: Progressing documented in this encounter [facility] Work Phone: 05-24-2023 Note Formatting of this n ote might be different from the original. PATIENT: TERRY VILLALPANDO : 1960 ADMIT DATE: 05/19/2023 11:50 AM DISCH DATE: RESPONDING PROVIDER #: [id number] PROVIDER RESPONSE TEXT: Chronic Systolic HF CDI [...] by: LEN GUARDADO MD 05/24/2023 8:37 AM [facility] Work Phone: 05-24-2023 Plan of care [...] to monitor and call light within reach. [facility] 05-23-2023 History of Present illness Narrative [...] 3:57 PM Bekah Queen OT Rehab Office: [phone] ADVANCED HEART FAILURE LVAD PROGRESS NOTE VAD Door To Door Fundraising Collector: Dr. Guardado Type of VAD: HM2 Implant [...] Problems: LVAD (left ventricular assist device) present ([facility]) HFrEF (heart failure with reduced ejection fraction) ([facility]) LOS: 4 days Interval Events: Patient seen [...] 1537 05/19/23 1237 12/28/21 0930 12/26/21 1304 03/26/21195803/25/216 NA 134* 138 137 136 135* 132* [...] 1048 12/27/21 0542 12/27/21 0146 12/26/21200603/24/21 1933 03/23/21215309/12/17 0506 09/11/17 1148 INR 3.0* 2.4* 2.7* [...] Transthoracic Echo (TTE) Complete Result Date: 05/20/2023 [facility], [address] [place] [address] and TRANSTHORACIC ECHOCARDIOGRAM REPORT Patient Name: TERRY Monteiro VILLALPANDO Reading Physician: [id number] Amin MD Study Date: 05/20/2023 Ordering Provider: [id number] WOOD BARBER MRN/PID: [id number] Fellow: Nurse: Date of /Age: 408/05/1960 / 62 years Surface Plate Finisher: ZULMA Garrett RDCS Gender: M Additional Staff: Height: 180.34 cm Admit Date: Weight: 106.14 kg Admission Status: Inpatient - STAT BSA: 2.25 m2 Department Location: [address] Blood Pressure: /65 mmHg Study Type: TRANSTHORACIC ECHO (TTE) COMPLETE Diagnosis/ICD: Presence of heart assist device-Z95.811 Indication: HFrEF with LVAD CPT Code: Echo Complete w Full Doppler-64086 Patient History: Pertinent History: A-Fib. HFrEF s/p [...] LA Area A2C: 27.6 cm2 LA Major Swanzey A4C: 6.6 cm LA Major Swanzey A2C: 6.6 cm LV DIASTOLIC FUNCTION: Normal [...] 0.9 m/s (0.6-0.9m/s) PV Max P.0 mmHg [id number] Shorty Amin MD Electronically signed on 05/20/2023 [...] ICD s/p HM II LVAD (08/2013 at [facility]; exchanged 07/2016 at [facility] for pump thrombosis) with associated RV dysfunction [...] IMMUNOSTAINING CONSISTENT WITH PLASMA CELL MYELOMA - [place] eloy ratio 11 - [facility]ed by [facility] [...] care of this patient Aisha Enriquez, MSN, AGACNP- Advanced Heart Failure LVAD Nurse Practitioner After 5pm page [phone] Subjective Data: No new concerns or complaints [...] is performed using different testing methodology at [facility] than at other [facility]. Direct result comparisons should only be [...] ICD s/p HM II LVAD (08/2013 at [facility]; exchanged to HM II LVAD 07/2016 at [facility] for pump thrombosis) with associated RV dysfunction, CKD, dyslipidemia, DM, paroxysmal AF, subclinical hypothyroidism, and IgA MGUS, who was admitted to [facility] HFICU due to post-ICD shock who underwent [...] for your Cardiac Device [facility] [phone] Incision: 1. Keep your incision clean and [...] shoulder level for 4 weeks. Do no fruit picker anything weighing more than 15 pounds. 2. [...] You may call either the Device Clinic [phone] or the patient services of the device catalogue compiler with questions about specific electrical appliances and [...] ADVANCED HEART FAILURE LVAD PROGRESS NOTE VAD Door To Door Fundraising Collector: Dr. Guardado Type of VAD: HM2 Implant [...] HFrEF (heart failure with reduced ejection fraction) ([facility]) LOS: 3 days Interval Events: Patient seen and examined at bedside. NAOE. Plan for generator change today, pt NPO since 0000. Objective Vitals: Vitals: 05/21/23 1953 05/21/23 2000 05/22/23 0000 05/22/23 0500 Pulse: 80 80 69 [...] 12/26/21 1304 03/26/21 1959 03/25/21 1856 03/24/21 193 NA 138 137 136 135* 132* 139 [...] -- 6* AST -- -- -- -- 22 22 23 16 14 13 13 -- 16 BILITOT -- -- -- -- 1.2 1.0 0.9 0.8 0.9 1.0 1.2 -- 0.7 < > = values in this interval not displayed. CBC: Recent Labs 05/22/23 0607 05/21/23 0514 05/20/23 [...] Transthoracic Echo (TTE) Complete Result Date: 05/20/2023 [facility], [address] [place] [address] and TRANSTHORACIC ECHOCARDIOGRAM REPORT Patient Name: TERRY Monteiro YUVAL Reading Physician: [id number] Shorty Amin MD Study Date: 05/20/2023 Ordering Provider: [id number] WOOD BARBER MRN/PID: [id number] Fellow: Nurse: Date of /Age: 408/05/1960 / years Surface Plate Finisher: ZULMA Garrett RDCS Gender: M Additional Staff: Height: 180.34 cm Admit Date: Weight: 106.14 kg Admission Status: Inpatient - STAT BSA: 2.25 m2 Department Location: [address] Blood Pressure: /65 mmHg Study Type: TRANSTHORACIC ECHO (TTE) COMPLETE Diagnosis/ICD: Presence of heart assist device-Z95.811 Indication: HFrEF with LVAD CPT Code: Echo Complete w Full Doppler-22907 Patient History: Pertinent History: A-Fib. HFrEF s/p [...] LA Area A2C: 27.6 cm2 LA Major Swanzey A4C: 6.6 cm LA Major Swanzey A2C: 6.6 cm LV DIASTOLIC FUNCTION: Normal [...] 0.9 m/s (0.6-0.9m/s) PV Max P.0 mmHg [id number] Shorty Amin MD Electronically signed on 05/20/2023 [...] ICD s/p HM II LVAD (08/2013 at [facility]; exchanged 07/2016 at [facility] for pump thrombosis) with associated RV dysfunction [...] IMMUNOSTAINING CONSISTENT WITH PLASMA CELL MYELOMA - [place] eloy ratio 11 - [facility] by [facility] [...] care of this patient Aisha Enriquez, MSN, [facility] Advanced Heart Failure LVAD Nurse Practitioner After 5pm page [phone] Physical Therapy Physical Therapy Evaluation Patient Name: [...] ICD and HM II LVAD (08/2013 @ [facility]; exchanged on 07/2016 [facility] due to pump thrombosis on Coumatin), CKD, [...] Prior Function Per Pt/Caregiver Report Level of [place]: Independent with ADLs and functional transfers Receives [...] LLE : Within Functional Limits Outcome Measures: [facility] Basic Mobility Turning from your back to [...] Rolling: Complete independence Sitting: Complete independence Transfer Ekw-yj-Nicij: Supervision or set-up only Transfer Oqwdqx-uf-Nsf: Complete independence Total Score: 30 ICU Mobility [...] ICD and HM II LVAD (08/2013 @ [facility]; exchanged on 07/2016 @[facility] due to pump thrombosis on Coumadin), CKD, COPD, HTN, Dyslipidemia, T2DM, pAF, GIB, MGUS s/p bone marrow biopsy and subclinical hypothyroidism. Initially presented to [facility] today 05/19/2023 with complaints of seven ICD firing in the morning after taking his morning medications, transfer was initiated to [facility] for further workup. Upon admission, patient presented [...] change out LVAD controller if needed. VAD 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 aware, will follow up. Objective Physical Exam [...] ICD and HM II LVAD (08/2013 @ [facility]; exchanged on 07/2016 @[facility] due to pump thrombosis on Coumadin), CKD, COPD, HTN, Dyslipidemia, T2DM, pAF, GIB, MGUS s/p bone marrow biopsy and subclinical hypothyroidism. Initially presented to [facility] today 05/19/2023 with complaints of seven ICD firing in the morning after taking his morning medications, transfer was initiated to [facility] for further workup. Upon admission, patient presented [...] change out LVAD controller if needed. VAD 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 aware, will follow up. Neuro: No active [...] ICD battery replacement) PPI 40 mg daily [place] 3 2 grams daily Weekly dressing change #NICM Chronic Systolic HFrEF-EF 10-15% Last TTE (08/22/2022): Severely reduced ejection fraction of 10-15%. Mild elevated right ventricle systolic pressure. Mild to moderate MR, AR and mild KS. - Admitting weight: 107 kg; daily weight [...] PRN laxatives for constipation : -Baseline BUN/Cr: 22-/1.19-. -Admit BUN/Cr: 22/1.12 -Daily BUN/Cr (05/21): 23/1.01 [...] Primary Contact/Next of Kin: Beatriz Kelly (daughter) [phone]; Patient's daughter at bedside and updated during am rounds 05/21 Dispo: Transfer to T5 today Maren ZimmermanG. reviewed Patient seen and assessed with Dr. [...] is performed using different testing methodology at [facility] than at other [facility]. Direct result comparisons should only be [...] Last Rate amiodarone 0.5 mg/min 0.5 mg/min (05/20/23 1832) Physical Exam: Physical Exam: Constitutional: chronically-ill appearing, [...] ICD s/p HM II LVAD (08/2013 at [facility]; exchanged to HM II LVAD 07/2016 at [facility] for pump thrombosis) with associated RV dysfunction, CKD, dyslipidemia, DM, paroxysmal AF, subclinical hypothyroidism, and IgA MGUS, who was admitted to [facility] HFICU due to post-ICD shock and sustained VT. Per patient, around 4:30 this morning, ICD shocked him without proceeding cardiopulmonary symptoms. Based on the CIED interrogation @ [facility] this morning, his RA lead function [...] hours after each dose and upload to Benge -if RV felt not to be able to tolerate beta román or if amiodarone toxicities felt acceptable: do not start sotalol. Start PO amiodarone 400mg tid x7d then reduce to 400mg daily -outpatient EP follow-up with Dr. Driver at [facility] in 6-8 weeks Thank you for the opportunity to contribute to the care of this patient. Above recommendations discussed with Dr. Driver. If further questions arise, [place] [phone] on weekdays 7AM - 6PM and weekends 7AM - 2PM[place] [phone] at all other times. The EP device nurse can be reached at pager [phone] during regular business hours M-F. Peripheral IV [...] and overall care of this patient. SW education intern and SW met with patient at bedside. See flowsheet for assessment details. Patient confirmed he lives home alone with and has no issues with [facility]. Patient requested to complete POA paperwork. Patient confirmed daughter primary POA Beatriz Villalpando [phone] and son Joshua Villalpando [phone] as second POA. POA complete. Copy placed [...] as appropriate.) Missed Time: Attempt Comment: RAKESH Cheek/Na Inpatient Occupational Therapist Rehab Office: [phone] Terry Villalpando is a 62 y.o. male [...] ICD and HM II LVAD (08/2013 @ [facility]; exchanged on 07/2016 @[facility] due to pump thrombosis on Coumadin), CKD, COPD, HTN, Dyslipidemia, T2DM, pAF, GIB, MGUS s/p bone marrow biopsy and subclinical hypothyroidism. Initially presented to [facility] today 05/19/2023 with complaints of seven ICD firing in the morning after taking his morning medications, transfer was initiated to [facility] for further workup. Upon admission, patient presented [...] ICD battery replacement) PPI 40 mg daily [place] 3 2 grams daily Weekly dressing change #NICM Chronic Systolic HFrEF-EF 10-15% Last TTE (08/22/2022): Severely reduced ejection fraction of 10-15%. Mild elevated right ventricle systolic pressure. Mild to moderate MR, AR and mild KS. - Admitting weight: 107 kg; daily weight [...] Primary Contact/Next of Kin: Beatriz Kelly (daughter) [phone]; Patient' and daughter at bedside and updated during am rounds 05/20. Dispo: remain in HFICU A. -G. reviewed Patient seen and assessed with LUBNA Garcia HFICU Attending Note No further VT after sedated defibrillation yesterday, continue to load with IV amiodarone, discussed with patient he was on amiodarone in the past this was stopped after several years of stabilty will need to be mcc for now Controller is reading low flow [...] List and refresh.. Pharmacy reviewed the patient's vcsiz-qc-lxkyidkph medications and allergies for accuracy. The list below reflects the updated INSURANCE RISK MANAGER list. Comments regarding how patient may be [...] 3 times a week. fish oil concentrate ([place]-3) 120-180 mg capsule Self Sig: Take 2 [...] and justification. Allergies Reviewed by Wood Barber APRN-CAREER PLACEMENT SERVICES COUNSELOR on 05/19/2023 No Known Allergies Patient declines M2B at discharge. Sources used to complete the med history include: Patient interview/ Pharmacy - [facility]/ Chart review - OSH records, Anticoag note 05/07/23 Roxanne Javier PharmD Transitions of Care Pharmacist [facility] Please reach out via Secure Chat for questions, or if no response call Flux or Pegg'd documented in this encounter [facility] Work Phone: 05-23-2023 Plan of care [...] to monitor and call light within reach. [facility] Work Phone: 05-22-2023 Plan of care [...] values return to normal range Outcome: Progressing [facility] 05-21-2023 Note Formatting of this n ote might be different from the original. Unable to accommodate generator change due to EP lab availability 05/21, will hope to add on 05/22. Discussed with primary service. [facility] Work Phone: 05-21-2023 Nurse Note Pt transferred by this RN to [place] [id number] in stable condition. Pt had all belongings, cell phone, cell phone machine i trimmer, LVAD spare batteries (4 batteries), spare controller, and all VSS were stable. Report called prior to transfer. [facility] 05-20-2023 Nurse Note Went to see patient at bedside. Replaced backup batteries in primary and secondary controller. Verified expiration dates on 14v batteries and marked with green stickers. Sent log files to [facility] due to flow flashing between 3.7 and ---- on both controller and system monitor. [facility] 05-19-2023 Plan of care note The [...] and maintenance of device (specify) Outcome: Progressing [facility] 05-19-2023 Nurse Note VAD Note Name: [...] HeartMate Serial Numbers HeartMate Equipment Tracking/Serial Numbers Yard General Car Supervisor: car machine i trimmer Battery Clip 1: [id number] Battery Clip 2: [id number] Rechargeable Battery 1: [id number] Rechargeable Battery 2: [id number] Rechargeable Battery 3: [id number] Rechargeable Battery 4: [id number] Go Gear Vest: yes Programmed Backup Color Maker Formulator: [id number] Primary Controller: [id number] Black Emergency Red Tag Bag: yes HeartMate Tracking HeartMate Equipment Transfer Transfer From: Admission Yard [employer] Car Supervisor: No Battery Clip 1: Yes Battery Clip [...] No Go Gear Vest: Yes Programmed Backup Color Maker Formulator: Yes Primary Controller: Yes Mobile Power Unit: No Black Emergency Red Tag Bag: Yes HeartWare Serial Numbers HeartWare Tracking VAD Discharge Educations Education Documentation No documentation found. Enedina Stauffer RN Date: 05/19/2023 Time: 7:58 PM [facility] Work Phone: 05-19-2023 Procedure note Associated Ord er(s): Electrical Cardioversion Electrical Cardioversion Date/Time: 05/19/2023 6:18 PM Performed by: LUBNA Solis Authorized by: LUBNA Solis Consent: Consent obtained: Verbal and emergent situation Consent given by: Patient Risks, benefits, and alternatives were discussed: yes Alternatives discussed: Rate-control medication, alternative treatment, no treatment and observation Carroll protocol: Procedure explained and questions answered to [...] 50 mcg were given during the procedure. [facility] Work Phone: 05-19-2023 Procedure note Associated Ord er(s): Electrical Cardioversion Electrical Cardioversion Date/Time: 05/19/2023 6:18 PM Performed by: LUBNA Solis Authorized by: LUBNA Solis Consent: Consent obtained: Verbal and emergent situation Consent given by: Patient Risks, benefits, and alternatives were discussed: yes Alternatives discussed: Rate-control medication, alternative treatment, no treatment and observation Carroll protocol: Procedure explained and questions answered to [...] Bleeding, ischemia, infection, pain and repeat procedure Carroll protocol: Procedure explained and questions answered to [...] performed the procedure, Natty Metz is a surgery assistant. The patient was prepped and draped [...] Tegaderm was applied. documented in this encounter [facility] Work Phone: 05-19-2023 Procedure note Associated Ord er(s): Arterial Line Insertion Arterial Line Insertion Date/Time: 05/19/2023 6:09 PM Performed by: LUBNA Solis Authorized by: LUBNA Solis Consent: Consent obtained: Emergent situation Consent given by: Patient Risks, benefits, and alternatives were discussed: yes Risks discussed: Bleeding, ischemia, infection, pain and repeat procedure Carroll protocol: Procedure explained and questions answered to [...] performed the procedure, Natty Metz is a surgery assistant. The patient was prepped and draped [...] area was cleaned and Tegaderm was applied. [facility] Work Phone: 05-19-2023 Nurse Note 1707:: time-out for cardioversion, BHAVNA Benavides NP, Dr Dilshad GUZMAN, Dr. Braxton Anesthesia all present. 1708: 1 mg versed given 1709: 25 mcg fentanyl given. 1711: 25 mcg fentanyl given. 1712 200j shock given, a-v paced rhythm achieved 1714 EKG obtained [facility] Work Phone: 05-19-2023 History and physical note [facility] HFICU HISTORY AND PHYSICAL Terry Villalpando/[id number] Admit Date: 05/19/2023 Hospital Length of Stay: 0 ICU Length of Stay: 1h Primary Service: HFICU Referring: Dr. Troy ([facility]) HPI: Terry Saha is a 62-year-old male with PMH of stage D HFrEF (EF 10% -15%) with severe LV dysfunction s/p ICD and HM II LVAD (08/2013 @ [facility]; exchanged on 07/2016 @[facility] due to pump thrombosis on Coumatin), CKD, COPD, HTN, Dyslipidemia, T2DM, pAF, GIB, MGUS s/p bone marrow biopsy and subclinical hypothyroidism who initially presented to [facility] today 05/19/2023 with complaints of seven ICD discharges in the morning after taking his morning medications. He reports laying on his couch watching the news when the discharges happened. He reports the need for a new ICD battery and was surprised that it shocked him. Transfer was initiated to [facility] for further workup. Upon admission, patient presented [...] Mild to moderate MR, AR and mild KS. Chest Radiograph (05/19/2023): Mild perihilar vascular congestion, which is similar when compared to prior exam. Recommend correlation with patient's volume status. Past Medical History: Past Medical History: Diagnosis Date Awaiting organ transplant status 01/12/2016 Awaiting organ transplant CHF (congestive heart failure) (CMS/HCC) COPD (chronic obstructive pulmonary disease) (CMS/HCC) Diabetes mellitus (CMS/HCC) Disease of thyroid gland Encounter for other preprocedural examination 02/15/2016 Encounter for pre-transplant evaluation for heart transplant Hypertension Unspecified systolic (congestive) heart failure (CMS/HCC) 12/04/2019 HFrEF (heart failure with reduced ejection fraction) Past Surgical History: Past Surgical History: Procedure Laterality Date CT GUIDED PERCUTANEOUS BIOPSY BONE 12/27/2021 CT GUIDED PERCUTANEOUS BIOPSY BONE 12/27/2021 [facility] INPATIENT [facility]GAC[facility] OTHER SURGICAL HISTORY 12/04/2019 Ventricular [...] morning. Take before meals. fish oil concentrate ([place]-3) 120-180 mg capsule Take 2 capsules (2 [...] Labs 12/28/21 0930 12/27/21 0542 12/26/21 1304 03/26/21195803/25/216 03/24/21 19303/23/21 21503/23/21 0705 03/22/21 1710 01/26/20 1300 05/08/18 1623 [...] Labs 12/28/21 0930 12/27/21 0542 12/26/21 1304 03/26/21195803/25/216 03/24/21 1933 03/23/21 2154 03/23/21 0705 03/22/21 1710 ALBUMIN 4.2 4.0 4.1 4.0 4.1 4.0 3.9 3.8 4.1 ALT 14 13 13 9* 7* 7* 7* -- 6* AST 16 14 13 13 -- 16 BILITOT 1.2 1.0 0.9 0.8 0.9 1.0 1.2 -- 0.7 CBC: Recent Labs 05/19/23 1237 12/28/21 0930 12/27/21 0542 12/26/21 1304 03/26/21195803/25/21185503/24/21193203/23/212153 WBC 6.5 7.5 5.3 5.4 6.6 5.9 [...] ICD and HM II LVAD (08/2013 @ [facility]; exchanged on 07/2016 @[facility] due to pump thrombosis on Coumadin), CKD, COPD, HTN, Dyslipidemia, T2DM, pAF, GIB, MGUS s/p bone marrow biopsy and subclinical hypothyroidism. Initially presented to [facility] today 05/19/2023 with complaints of seven ICD firing in the morning after taking his morning medications, transfer was initiated to [facility] for further workup. Upon admission, patient presented [...] past 1 year) PPI 40 mg daily [place] 3 2 grams daily Weekly dressing change #NICM Chronic Systolic HFrEF-EF 10-15% Last TTE (08/22/2022): Severely reduced ejection fraction of 10-15%. Mild elevated right ventricle systolic pressure. Mild to moderate MR, AR and mild KS. - Admitting weight: 107 kg - Admitting [...] and assessed with Dr. Negrete LUBNA Mccullough [facility] Work Phone: 05-19-2023 History and physical note [facility] HFICU HISTORY AND PHYSICAL Terry Villalpando/[id number] Admit Date: 05/19/2023 Hospital Length of Stay: 0 ICU Length of Stay: 1h Primary Service: HFICU Referring: Dr. Troy ([facility]) HPI: Terry Saha is a 62-year-old male with PMH of stage D HFrEF (EF 10% -15%) with severe LV dysfunction s/p ICD and HM II LVAD (08/2013 @ [facility]; exchanged on 07/2016 @[facility] due to pump thrombosis on Coumatin), CKD, COPD, HTN, Dyslipidemia, T2DM, pAF, GIB, MGUS s/p bone marrow biopsy and subclinical hypothyroidism who initially presented to [facility] today 05/19/2023 with complaints of seven ICD discharges in the morning after taking his morning medications. He reports laying on his couch watching the news when the discharges happened. He reports the need for a new ICD battery and was surprised that it shocked him. Transfer was initiated to [facility] for further workup. Upon admission, patient presented [...] Mild to moderate MR, AR and mild KS. Chest Radiograph (05/19/2023): Mild perihilar vascular congestion, which is similar when compared to prior exam. Recommend correlation with patient's volume status. Past Medical History: Past Medical History: Diagnosis Date Awaiting organ transplant status 01/12/2016 Awaiting organ transplant CHF (congestive heart failure) ([facility]) COPD (chronic obstructive pulmonary disease) ([facility] Diabetes mellitus ([facility]) Disease of thyroid gland Encounter for other preprocedural examination 02/15/2016 Encounter for pre-transplant evaluation for heart transplant Hypertension Unspecified systolic (congestive) heart failure ([facility]) 12/04/2019 HFrEF (heart failure with reduced ejection fraction) Past Surgical History: Past Surgical History: Procedure Laterality Date CT GUIDED PERCUTANEOUS BIOPSY BONE 12/27/2021 CT GUIDED PERCUTANEOUS BIOPSY BONE 12/27/2021 [facility] INPATIENT LEGACY OTHER SURGICAL HISTORY 12/04/2019 Ventricular [...] morning. Take before meals. fish oil concentrate ([place]-3) 120-180 mg capsule Take 2 capsules (2 [...] 0930 12/27/21 0542 12/26/21 1304 03/26/21195803/25/21185503/24/21193203/23/21 2154 03/23/21 0705 03/22/21 1710 ALBUMIN 4.2 4.0 4.1 [...] ICD and HM II LVAD (08/2013 @ [facility]; exchanged on 07/2016 @[facility] due to pump thrombosis on Coumadin), CKD, COPD, HTN, Dyslipidemia, T2DM, pAF, GIB, MGUS s/p bone marrow biopsy and subclinical hypothyroidism. Initially presented to [facility] today 05/19/2023 with complaints of seven ICD firing in the morning after taking his morning medications, transfer was initiated to [facility] for further workup. Upon admission, patient presented [...] past 1 year) PPI 40 mg daily [place] 3 2 grams daily Weekly dressing change #NICM Chronic Systolic HFrEF-EF 10-15% Last TTE (08/22/2022): Severely reduced ejection fraction of 10-15%. Mild elevated right ventricle systolic pressure. Mild to moderate MR, AR and mild KS. - Admitting weight: 107 kg - Admitting [...] constipation : -Baseline BUN/Cr: 22-/1.19-1.27 -Admit BUN/Cr: 13/05.12 -I/Os -avoid hypotension and nephrotoxic agents Endo: [...] Negrete LUBNA Mccullough documented in this encounter [facility] Work Phone: 05-19-2023 Consult note Associated Order (s): IP CONSULT TO ELECTROPHYSIOLOGY Images from the original note were not included. History and Present Illness: Primary LVAD Door To Door Fundraising Collector: Dr. Lay Vaca with co-management with [facility] (Dr Yi) Mr. Villalpando is a 62 y/o male with a PMHx sig for stage D systolic HF/NICM/HFrEF with severe LV dysfunction s/p [place] ICD s/p HM II LVAD (08/2013 at [facility]; exchanged to HM II LVAD 07/2016 at [facility] for pump thrombosis) with associated RV dysfunction, CKD, dyslipidemia, DM, paroxysmal AF, subclinical hypothyroidism, and IgA MGUS, who was admitted to [facility] HFICU due to post-ICD shock. Per patient, around 4:30 this morning, ICD shocked him without proceeding cardiopulmonary symptoms. Cardiac Data: 12-lead ECG 05/19/2023: wide QRS irregularly irregular tachycardia TTE @[facility] in 08/2022: LVEF 10-15% with severely dilated LV, severely dilated RV with severe systolic dysfunction, mild-moderate MR, mild-moderate AI Presenting 12-lead ECG @ [facility] on 05/19/2023: CIED interrogation @ [facility]: - battery: reached to [employer] on 07/13/2019 - RA lead function was not assessed due to underlying AF - RV lead function was normal: capture (0.5 V/0.4 ms), sensing 11.8 mV, and 430 Ohm - DDDR 80-115 bpm - AP < 1% and CORE ANALYST 99 % since 11/16/2019 - There were [...] both RA and RV leads on 05/19/2023 @[facility] HFICU: Bedside TTE on 05/19/2023: biventiruclar standstill [...] is performed using different testing methodology at [facility] than at other [facility]. Direct result comparisons should only be made [...] of hands/feet. No weakness. Assessment/Plan Primary LVAD Door To Door Fundraising Collector: Dr. Lay Vaca with co-management with [facility] (Dr Yi) Mr. Villalpando is a 62 y/o male with a PMHx sig for stage D systolic HF/NICM/HFrEF with severe LV dysfunction s/p ICD s/p HM II LVAD (08/2013 at [facility]; exchanged to HM II LVAD 07/2016 at [facility] for pump thrombosis) with associated RV dysfunction, CKD, dyslipidemia, DM, paroxysmal AF, subclinical hypothyroidism, and IgA MGUS, who was admitted to [facility] HFICU due to post-ICD shock and sustained VT. Per patient, around 4:30 this morning, ICD shocked him without proceeding cardiopulmonary symptoms. Based on the CIED interrogation @ [facility] this morning, his RA lead function [...] 1.6 on this admission - Appropriately shocked fll-ds-kwzwyfqx VT and VF episodes - NO obvious [...] interrogate his ICD again tomorrow morning. This marketing writer was unable to obtain full ICD [...] care of this patient. Klaus Art MD [facility] Work Phone: 05-19-2023 Consult note Associated Order (s): IP CONSULT TO ELECTROPHYSIOLOGY Images from the original note were not included. History and Present Illness: Primary LVAD Door To Door Fundraising Collector: Dr. Lay Vaca with co-management with [facility] (Dr Yi) Mr. Villalpando is a 62 y/o male with a PMHx sig for stage D systolic HF/NICM/HFrEF with severe LV dysfunction s/p [place] ICD s/p HM II LVAD (08/2013 at [facility]; exchanged to HM II LVAD 07/2016 at [facility] for pump thrombosis) with associated RV dysfunction, CKD, dyslipidemia, DM, paroxysmal AF, subclinical hypothyroidism, and IgA MGUS, who was admitted to [facility] HFICU due to post-ICD shock. Per patient, around 4:30 this morning, ICD shocked him without proceeding cardiopulmonary symptoms. Cardiac Data: 12-lead ECG 05/19/2023: wide QRS irregularly irregular tachycardia TTE @[facility] in 08/2022: LVEF 10-15% with severely dilated LV, severely dilated RV with severe systolic dysfunction, mild-moderate MR, mild-moderate AI Presenting 12-lead ECG @ [facility] on 05/19/2023: CIED interrogation @ [facility]: - battery: reached to [employer] on 07/13/2019 - RA lead function was not assessed due to underlying AF - RV lead function was normal: capture (0.5 V/0.4 ms), sensing 11.8 mV, and 430 Ohm - DDDR 80-115 bpm - AP < 1% and CORE ANALYST 99 % since 11/16/2019 - There were [...] both RA and RV leads on 05/19/2023 @[facility] HFICU: Bedside TTE on 05/19/2023: biventiruclar standstill [...] is performed using different testing methodology at [facility] than at other [facility]. Direct result comparisons should only be [...] of hands/feet. No weakness. Assessment/Plan Primary LVAD Door To Door Fundraising Collector: Dr. Lay Vaca with co-management with [facility] (Dr Yi) Mr. Villalpando is a 62 y/o male with a PMHx sig for stage D systolic HF/NICM/HFrEF with severe LV dysfunction s/p ICD s/p HM II LVAD (08/2013 at [facility]; exchanged to HM II LVAD 07/2016 at [facility] for pump thrombosis) with associated RV dysfunction, CKD, dyslipidemia, DM, paroxysmal AF, subclinical hypothyroidism, and IgA MGUS, who was admitted to [facility] HFICU due to post-ICD shock and sustained VT. Per patient, around 4:30 this morning, ICD shocked him without proceeding cardiopulmonary symptoms. Based on the CIED interrogation @ [facility] this morning, his RA lead function [...] 1.6 on this admission - Appropriately shocked fyk-ew-znpcmyzz VT and VF episodes - NO obvious [...] interrogate his ICD again tomorrow morning. This marketing writer was unable to obtain full ICD [...] Klaus Art MD documented in this encounter [facility] Work Phone: 04-07-2023 Hospital Discharge instructions [...] sitting or lying down. General instructions Take bmlx-mix-ytxlwbv and prescription medicines only as told by [...] compression, and elevation. You may be given eopn-srk-wxqznrn medicines for pain. Contact a health care [...] provider. Document Revised: 02/20/2022 Document Reviewed: 02/01/2022 [employer] Patient Education 2022 [employer]. Follow Up Care 04/07/2023 15:22:48 With:JOLEEN HERRERA Address: [address] [place] [phone] Business (1) When:Within 3 Day(s) [facility] 01-11-2023 Note HNO ID: [id number] Author: Ailyn Friend MD Service: ? Author Type: Physician Type: Progress Notes Filed: 01/11/2023 11:09 AM Note Text: PATIENT NAME: Terry Villalpando CLINIC NO.: [id number] ATTENDING PHYSICIAN: Ailyn Friend MD DATE OF SERVICE: January 11, 2023 Some of the elements of this note have been copied from my previous progress note dated 09/12/2022. All the information has been reviewed carefully. Dear Joleen Herrera, CAREER PLACEMENT SERVICES COUNSELOR, here is an update on a follow up visit on paulino Villalpando at the clinic January 11, 2023 Diagnosis: SMM and thrombocytopenia Treatment History: March 2021, admitted to [facility] for blood loss anemia presumed to be [...] g/dL, KL ratio 11 Established care with ri 01/10/2022 HPI: Terry Villalpando is a 62 [...] intact. Rectal: D (more content not included)... [facility] 01-11-2023 History of Present illness Narrative PATIENT NAME: Terry Villalpando [facility] NO.: [id number] ATTENDING PHYSICIAN: Ailyn Friend MD DATE OF SERVICE: January 11, 2023 Some of the elements of this note have been copied from my previous progress note dated 09/12/2022. All the information has been reviewed carefully. Dear Joleen Herrera, CAREER PLACEMENT SERVICES COUNSELOR, here is an update on a follow up visit on male Terry Villalpando at the clinic January 11, 2023 Diagnosis: SMM and thrombocytopenia Treatment History: March 2021, admitted to [facility] for blood loss anemia presumed to be [...] g/dL, KL ratio 11 Established care with ri 01/10/2022 HPI: Terry Villalpando is a 62 [...] Range Status 01/03/2023 12.3 % Final Abs [place] Date Value Ref Range Status 01/03/2023 0.80 [...] do not hesitate to contact me at [phone]. Ailyn Friend MD Hematology/Medical Oncology [facility] [place] [facility] spent a total of 30 minutes on the date of the service which included preparing to see the patient, njce-kt-kqkq patient care, completing clinical documentation, obtaining and/or reviewing separately obtained history, performing a medically appropriate examination, and ordering medications, tests, or procedures. CC: Joleen Herrera, CAREER PLACEMENT SERVICES COUNSELOR documented in this encounter [facility] 01-11-2023 Evaluation note Diagnosis MGUS (monoclonal gammopathy of unknown significance)- Primary Monoclonal paraproteinemia Stage 3a chronic kidney disease (HCC) documented in this encounter [facility]09-14-2023 History of Present illness Narrative* Diana Agustin, RT(R) - 01/03/2023 12:45 PM EDT RADIOLOGY SERVICE PROGRESS NOTE SERVICE DATE: 01/03/2023 [...] Value Ref Range Status 09/12/2022 60 >=60 mL/min/1.73m Final Comment: Estimated Glomerular Filtration Rate (eGFR) is calculated using the 2020 CKD-EPI creatinine equation. This equation utilizes serum creatinine, sex, and age as parameters. The creatinine assay has traceable calibration to isotope dilution- mass spectrometry. Refer to KDIGO guidelines for clinical interpretation. In patients with unstable renal function, e.g. those with acute kidney injury, the eGFRmay not accurately reflect actual GFR. P.O.C.T. RESULTS: [...] 1247 PATIENT DISCHARGED TO: Ambulatory patient, left NH department area. A Diagnostic radioactive procedure has taken place, with no further precautions necessary other than routine body substance precautions. More information regarding radiation safety can be found usingthis link: [email or web address] 20Diagnostic%20Nuclear%20Medicine%[email or web address] SIGNATURE: JEAN-CLAUDE Edwards) PATIENT NAME: Terry Villalpando DATE: January 03, 2023 TIME: 1:10 PM PAGER/CONTACT #: documented in [facility]23 NoteHNO ID: [id number] Author: Diana Agustin RT(R) Service: ? Author Type: Technologist Type: [...] 1247 PATIENT DISCHARGED TO: Ambulatory patient, left [place] department area. A Diagnostic radioactive procedure has taken place, with no further precautions necessary other than routine body substance precautions. More information regarding radiation safety can be found using this link: [email or web address]%[email or web address] SIGNATURE: RT Grace(R) PATIENT NAME: Terry Villalpando DATE: January 03, 2023 TIME: 1:10 PM PAGER/CONTACT #:[facility]05-30-2023 Miscellaneous Notes* Telephone Encounter - Michael Calderon - 09/18/2022 11:11 AM EDT Scheduled [...] Roz Del Valle RN documented [facility] History of Present illness Narrative* Ailyn Friend MD - 01/10/2022 3:25 PM EDT PATIENT NAME: Terry Villalpando CLINIC NO.: [id number] ATTENDING PHYSICIAN: Ailyn Friend MD DATE OF SERVICE: January 10, 2022 Dear Joleen Herrera, CAREER PLACEMENT SERVICES COUNSELOR, here is an update on a follow up visit on male Terry Villalpando at the clinic 01/10/2022 Diagnosis: MGUS and thrombocytopenia Treatment History: March 2021, admitted to [facility] for blood loss anemia presumed to be secondary to supratherapeutic INR while on warfarin. He was transfused RBCs and given intravenous iron. No EGD or colonoscopy performed. Referred to ri in September 2021 for evaluation of MGUS [...] me 01/10/2022 HPI: Terry Villalpando is a 61 [...] quittin. Passive exposure: Past Smokeless tobacco: Never Substance [...] 0.66 (L) 1.00 - 4.00 k/uL Final [place]% Date Value Ref Range Status 01/03/2022 13.3 % Final Abs [place] Date Value Ref Range Status 01/03/2022 0.62 [...] repeat in 4 months, slight elevation of [place] light chain Thrombocytopenia- Improved Monitor Creat CHF on LVAD per cardiology at Follow Iron parameters Thank you for the kind referral. If there are any questions and or concerns please do not hesitate to contact me at [phone]. Ailyn Friend MD Hematology/Medical Oncology [facility] [place] [facility] spent a total of 25 minutes on the date of the service which included preparing to see the patient, nsvv-dz-[id number] patient care, completing clinical documentation, obtaining and/or reviewing separately obtained history, performing a medically appropriate examination, and ordering medications, tests, or procedures. Medical Decision Making: Medical Decision Making Level: 1 - N/A CC: Joleen Herrera, CAREER PLACEMENT SERVICES COUNSELOR documented [facility] Miscellaneous Notes* Telephone Encounter - Tonia Carpenter - 01/03/2022 9:50 AM EDT Patient has a [facility] appointment next week but showed up today. Wants labs. Do you want to order anything? documented in this encounterSt. [facility]09-[facility] Evaluation note* LVEF % at Discharge:Left [...] dry, no edemaCardiovascular: S1,S2, +LVAD hum (HM2) [facility]09-08-2022 Hospital Discharge instructions* Activity:activity as tolerated. May shower. May drive. * Additional Orders:Weight: Weigh yourself daily and record. Take these numbers with you to your LVADappointment. If your weight increases by more than 3 lbs from baseline weight, call the office at [phone].Additional Instructions: VADDaily Care Change the exit site [...] each morning and record. Call your hospital new car salesperson if you gain more than 3 [...] to untangle them.Immediately jordyn l your hospital new car salesperson if you notice any changes in [...] electrical system, you can hire a local electrician outside to do it for you. Know and understand the warnings and cautions associated with having a VAD for safe operation (see your Patient Handbook for a complete list of warnings and cautions) For any questions or concerns after discharge please notify:VAD Coordinator Contact Numbers: Pager #[phone] all laboratory test/lab results must be faxed to [phone] ATTN: VAD TEAM * Call Provider If:Breathing [...] Ju Palacios CNP/LVAD ClinicScheduled Date/Time: 02-Jan-2022 14:00Location: [facility], [address], [place], [place], [address]Fwkdk Number: [phone]: Bring your medication bottles (or u pdated med list) and a list of your daily weights. * Follow Up Appointment 2:Physician/Dept/Service: Dr. Kraus/Yomi for Referral: MGUS and bone marrow biopsy resultsLocation: [facility] [address], [place], [place] [address]Shdid Number: Comments: Please call to schedule an appointment so that bone marrow biopsy results can be reviewed. * Coumadin (Warfarin) Follow-Up Monitoring:Physician/Dept/Service: Please check INR level with your home monitor tomorrow Saturday12/29/21.Date/Time next PT/INR due: 29-Dec-2021 12:00 [facility]07-14-2022 History of Present illness Narrative* Jerrell Kraus [...] thrombocytopenia HEMATOLOGICAL HISTORY: March 2021, admitted to [facility] for blood loss anemia presumed to be [...] history; quit in 2010. He lives in [place], [place] with his , Holley. MEDICATIONS AND [...] grossly non-focal, skin without rash, extremities with 1+swelling bilaterally LABORATORY, IMAGING AND PATHOLOGY Labs 10-26-2021 [...] for atrial fibrillation and LVAD and in 2017, cessation of warfarin resulted in clotting of the LVADdespite being on a heparin drip. I am awaiting to hear back from his cardiology team to explore any safe options to facilitate the procedure (Dr. Ju Palacios [phone]). In the meantime, he will return in 2 months with labs prior. Thrombocytopenia is mild but new compared to March 2021. Haptoglobin is undetectable. Nestor is negative. LDH and total bilirubin are moderately high. My suspicion is thrombocytopenia secondary toLVAD shearing. My suspicion for overt hemolysis remains low. Ultrasound of the liver and spleen is negative. Jerrell Kraus MD [phone] I spent a total of 35 minutes on the date of the service which included preparing to see the patient, [id number] patient care, completing clinical documentation, obtaining and/or reviewing separately obtained history, performing a medically appropriate examination, counseling and educating the pat ient/family/caregiver, ordering medications, tests, or procedures, independently interpreting results (not separately reported) and communicating results to the patient/family/caregiver. CC: Joleen Palacios, Cardiology, documented in this encounterSt. [facility]06-16-2022 History of Present illness Narrative* Jerrell [...] thrombocytopenia HEMATOLOGICAL HISTORY: March 2021, admitted to [facility] for blood loss anemia presumed to be [...] history; quit in 2010. He lives in [place], [place] with his , [place]ley. MEDICATIONS AND [...] which included preparing to see the patient, rqeh-oa-cyrg patient care, completing clinical documentation, obtaining and/or reviewing separately obtained history, performing a medically appropriate examination, counseling and educating the pat ient/family/caregiver, ordering medications, tests, or procedures, independently interpreting results (not separately reported) and communicating results to the patient/family/caregiver. CC: Joleen Herrera documented in this encounterSt. [facility]06-02-2022 History of Present illness Narrative* Jerrell [...] focal bony pain. March 2021, admitted to [facility] for blood loss anemia presumed to be [...] heart failure LVAD in 2013, revised in 2017 for pump thrombosis and associated RV dysfunction [...] history; quit in 2010. He lives in [place], [place] with his , [place]ley. MEDICATIONS AND [...] which included preparing to see the patient, auvg-fw-uplh patient care, completing clinical documentation, obtaining and/or reviewing separately obtained history, performing a medically appropriate examination, counseling and educating the pat ient/family/caregiver, ordering medications, tests, or procedures, independently interpreting results (not separately reported) and communicating results to the patient/family/caregiver. CC: Joleen Herrera documented in this encounterSt. [facility]05-24-2022 History of Present illness Narrative* Patient identification verified with 2 patient identifiers. * Anticoagulation Monitoring Service: [facility]. * Enrollment/Re-enrollment date: August 07, 2022. * The patient is being seen as a follow-up for anticoagulation monitoring. * Target INR 2-3. Monitoring practitioner Ju Palacios CNP. * Date Warfarin Begun: 2016 * INR monitoring is per [facility] protocol. PT MAY NOT GO LONGER THAN 2 WEEKS BETWEEN APPTS. * The patient is on anticoagulation due to LVAD and NOTIFY LVAD COORDINATOR JENNIFER PALACIOS (PAGER #[phone]) FOR INR <1.8 OR >4. * The patient is currently taking warfarin Tablet strength and color: 3 mg (Ugarte) * Interval History: * September 05, 2021. * Previous INR was 3.5. ONE DOSE HELD THEN TWD MAINTAINED. * Incoming total weekly dose 31.5 mg. * Today's Clinic INR: [facility] INR 2.2. * Since last visit, the [...] and prescribed plan of care. Anticoagulation Monitoring Service-[employer] Phone: 1(879) 438-682912-03-2021 Hospital Discharge instructions* Activity:activity as tolerated. May drive. * Labs 1 (Modify Template):Lab Test(s): CBC with dif, Comprehensive Metabolic Panel, LDH, iron studies, ferritin, digoxinDate To Be Drawn: Saturday03/31/21Fax Results To: Fax results to LVAD clinic # [phone] Attn: LVADComments: Patient has lab orders * Additional Orders:Blood Glucose Monitoring: before meals and at bedtimeWeight: Weigh yourself dailyand record. Take these numbers with you to your LVAD appointment. If your weight increases by more than 3 lbs from baseline weight, call the office at [phone].Additional Instructions: VADDaily Care Change the exit site [...] each morning and record. Call your hospital new car salesperson if you gain more than 3 [...] time to untangle them.Immediately call your hospital new car salesperson if you notice any changes in [...] s electrical system, youcan hire a local electrician outside to do it for you. Know and understand the warnings and cautions associated with having a VAD for safe operation (see your Patient Handbook for a complete list of warningsand cautions) For any questions or concerns after discharge please notify:VAD Coordinator Contact Numbers: Pager #[phone] all laboratory test/lab results must be faxed to [phone] ATTN: VAD TEAM * Call Provider If:Any [...] UpScheduled Date/Time: 05-Apr-2021 15:00Location: Virtual visitPhone Number: [phone]: Bring your medication bottles (or updated med list) and a list of your daily weights. * Coumadin (Warfarin) Follow-Up Monitoring:Physician/Dept/Service: [facility] Coumadin ClinicDate/Time nextPT/INR due: 31-Mar-2021 11:00Phone Number: [phone]: Please call to schedule an appointment for INR check on Saturday03/31/21 [facility]05-01-2014 History of Present illness Narrative* Mr. Villalpando is a 59 y/o male with a PMHx sig for stage D systolic HF/NICM/HFrEF with severe LV dysfunction s/p ICD s/p HM II LVAD (08/2013 at [facility]; exchanged 07/2016 at [facility] for pump thrombosis) with associated RV dysfunction, CKD, dyslipidemia, DM, pAF, and subclinical hypothyroidism who presents to the LVAD clinic for ongoing evaluation and management. * He is co-managed by the team at [facility] (Dr Yi). * Interval Hx: Patient describes [...] doing well with his heart failure goals. AU-Gwdfrmgnag-RAC [address] [place] Work Phone: 1(654) 381-738905-01-2014 History of Present illness Narrative* Mr. Villalpando is a 60 y/o male with a PMHx sig for stage D systolic HF/NICM/HFrEF with severe LV dysfunction s/p ICD s/p HM II LVAD (08/2013 at [facility]; exchanged 07/2016 at [facility] for pump thrombosis) with associated RV dysfunction, CKD, dyslipidemia, DM, pAF, and subclinical hypothyroidism who presents to the LVAD clinic for ongoing evaluation and management. * He is co-managed by the team at [facility] (Dr Yi). * Interval Hx: Patient was hospitalized from 03/22-03/27/21 for anemia 2/2 GIB (3 days of black tarry stools). At his local lab ([place]), Hgb was 5.9. He came to ED [...] faxed to the LVAD Clinic. DC weight tlj758.3 kg/236.5 lbs. * He reports feeling well [...] doing well with his heart failure goals. [facility] [address] Work Phone: 1(554) 294-976405-01-2014 History of Present illness Narrative* Mr. Villalpando is a 60 y/o male with a PMHx sig for stage D systolic HF/NICM/HFrEF with severe LV dysfunction s/p ICD s/p HM II LVAD (08/2013 at [facility]; exchanged 07/2016 at [facility] for pump thrombosis) with associated RV dysfunction, CKD, dyslipidemia, DM, pAF, and subclinical hypothyroidism who presents to the LVAD clinic for ongoing evaluation and management. * He is co-managed by the team at [facility] (Dr Yi). * Interval Hx: Patient was hospitalized from 03/22-03/27/21 for anemia 2/2 GIB (3 days of black tarry stools). At his local lab ([place]), Hgb was 5.9. He came to ED [...] faxed to the LVAD Clinic. DC weight cak092.3 kg/236.5 lbs. * He reports feeling well [...] doing well with his heart failure goals. [facility] Work Phone: 1(852) 737-966905-01-2014 History of Present illness Narrative* Mr. Villalpando is a 60 y/o male with a PMHx sig for stage D systolic HF/NICM/HFrEF with severe LV dysfunction s/p ICD s/p HM II LVAD (08/2013 at [facility]; exchanged 07/2016 at [facility] for pump thrombosis) with associated RV dysfunction, CKD, dyslipidemia, DM, pAF, and subclinical hypothyroidism who presents to the LVAD clinic for ongoing evaluation and management. * He is co-managed by the team at [facility] (Dr Yi). * Interval Hx: Patient was hospitalized from 03/22-03/27/21 for anemia 2/2 GIB (3 days of black tarry stools). At his local lab ([place]), Hgb was 5.9. He came to ED [...] faxed to the LVAD Clinic. DC weight bba029.3 kg/236.5 lbs. * He reports feeling well [...] doing well with his heart failure goals. [facility] Work Phone: 1(388) 189-986205-01-2014 History of Present illness Narrative* Primary LVAD Door To Door Fundraising Collector: Dr. Lay Vaca * Mr. 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 * He is co-managed by the team at [facility] (Dr Yi). * Interval Hx: Patient had [...] doing well with his heart failure goals. GX-Czqvaajujx-BQW [address] [place] Work Phone: 1([phone]) 484-441105-01-2014 History of Present illness Narrative* Primary LVAD Door To Door Fundraising Collector: Dr. Lay Vaca * Mr. 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 * He is co-managed by the team at [facility] (Dr Yi). Has not been seen by [facility] in a couple of years he says. [...] doing well with his heart failure goals. CL-Frbwwnedmy-VQY [address] [place] Work Phone: 1([phone]) [phone] History of Present illness Narrative* Primary LVAD Door To Door Fundraising Collector: Dr. Lay Vaca * Mr. 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 * He is co-managed by the team at [facility] (Dr Yi). Has not been seen by [facility] in a couple of years he says. [...] goals. Due For: electrolytes and an echocardiogram. OZ-Jhxsbyzthi-LTJ [address] [place] Work Phone: 1([phone]) [phone] History of Present illness Narrative* Primary LVAD Door To Door Fundraising Collector: Dr. Lay Vaca * Mr. 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 * He is co-managed by the team at [facility] (Dr Yi). Has not been seen by [facility] in a couple of years he says. [...] goals. Due For: electrolytes and an echocardiogram. [facility] Work Phone: 1([phone]) 375-587405-01-2014 History of Present illness Narrative* Primary LVAD Door To Door Fundraising Collector: Dr. Lay Vaca * Mr. 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 * He is co-managed by the team at [facility] (Dr Yi). Has not been seen by [facility] in a couple of years he says. [...] goals. Due For: electrolytes and an echocardiogram. GV-Eeyfwwpbux-Awrozbjf Work Phone: Chief complaint Narrative - ReportedLARRY YUVAL is being seen for a 5 week follow-up of heart failure, mechanical circulatory supportand a routine medication evaluation. He denies medication side effects. [facility] [address] [place] Work Phone: Chief complaint Narrative - ReportedLARRY YUVAL is being seen for a 6 month follow-up of heart failure, mechanical circulatory support and a routine medication evaluation. He denies medication side effects. [facility] [address] [place] Work Phone: Chief complaint Narrative - ReportedLARRCaterina VILLALPANDO is being seen for a 3 month follow-up of heart failure, mechanical circulatory support and a routine medication evaluation. He denies medication side effects. [facility] [address] [place] Work Phone: Evaluation + Plan note No data available for this section [facility]* LVEF % at Discharge:Left Ventricular Ejection [...] alert and cooperativePsychological: Appropriate mood and behavior [facility] Diagnosis MGUS (monoclonal gammopathy of unknown significance)- Primary Monoclonal paraproteinemia Thrombocytopenia (HCC) Thrombocytopenia, unspecified Encounter for screening for human immunodeficiency virus (HIV) Special screening examination for other specified viral diseases documented in this encounter [facility] note* Diagnosis MGUS (monoclonal gammopathy of unknown significance)- Primary Monoclonal paraproteinemia Absent serum haptoglobin Thrombocytopenia (HCC) Thrombocytopenia, unspecified documented in this encounter [facility] note* Diagnosis MGUS (monoclonal gammopathy of unknown significance)- Primary Monoclonal paraproteinemia Absent serum haptoglobin Thrombocytopenia ([facility]) Thrombocytopenia, unspecified [facility]* Diagnosis MGUS (monoclonal gammopathy of unknown significance)- Primary Monoclonal paraproteinemia Abnormal finding of blood chemistry, unspecified [facility]* Diagnosis Monoclonal gammopathy- Primary Monoclonal paraproteinemia Multiple myeloma not having achieved remission (HCC) Multiple myeloma, without mention of having achieved remission Malignant neoplasm of prostate (HCC) Malignant neoplasm of prostate Stage 3a chronic kidney disease (HCC) documented in this encounter [facility] note* Diagnosis ICD (implantable cardioverter-defibrillator) discharge- Primary ICD (implantable cardioverter-defibrillator) discharge HFrEF (heart failure with reduced ejection fraction) (CMS/HCC) History of left ventricular assist device (CMS/HCC) LVAD (left ventricular assist device) present (CMS/HCC) Heart failure (CMS/HCC) Unspecified heart failure Other specified hypothyroidism HFrEF (heart failure with reduced ejection fraction) ([facility]) LVAD (left ventricular assist device) present ([facility]/HCC) ICD (implantable cardioverter-defibrillator) discharge LVAD (left ventricular assist device) present ([facility]) documented in this encounter [facility] Work Phone: Evaluation note* Diagnosis Cardiomyopathy, unspecified (CMS/[facility]) Presence of automatic (implantable) cardiac defibrillator documented in this encounter [facility] Work Phone: Evaluation note* Diagnosis Type 2 diabetes mellitus with diabetic polyneuropathy, with long-term current use of insulin (CMS/[facility])- Primary BMI 33.0-33.9,adult Chronic systolic heart failure (CMS/HCC) Chronic systolic heart failure Cardiac arrhythmia, unspecified cardiac arrhythmia type History of implantable cardioverter-defibrillator (ICD) insertion [facility] Diagnosis LVAD (left ventricular assist device) present ([facility])- Primary documented in this encounter [facility] Work Phone: Evaluation note* Diagnosis VT (ventricular tachycardia) (Multi) Paroxysmal ventricular tachycardia Cardiomyopathy, unspecified type (Multi) documented in this encounter [facility] Work Phone: Evaluation note* Diagnosis LVAD (left ventricular assist device) present (Multi) HFrEF (heart failure with reduced ejection fraction) (Multi) documented in this encounter [facility] Work Phone: Evaluation note* Diagnosis Smoldering multiple myeloma- Primary Multiple myeloma, without mention of having achieved remission Abnormal finding of blood chemistry, unspecified [facility] Diagnosis Iron deficiency anemia due to chronic blood loss- Primary Iron deficiency anemia secondary to blood loss (chronic) [facility] Diagnosis Multiple myeloma not having achieved remission (HCC) Multiple myeloma, without mention of having achieved remission Monoclonal gammopathy Monoclonal paraproteinemia MGUS (monoclonal gammopathy of unknown significance) Monoclonal paraproteinemia Abnormal finding of blood chemistry, unspecified [facility]* Patient identification verified with 2 patient identifiers. * Anticoagulation Monitoring Service: [facility]. * Enrollment/Re-enrollment date: August 07, 2022. * The patient is being seen as a new patient for anticoagulation monitoring. * Pt was seen today in the [facility] AMS clinic for NPV. Pt was referred by JENNIFER Palacios with dx ofLVAD. Patient contract form completed. Past medical history includes: afib, AI, CHF, COPD, DM, HLD,HTN, [place], RENU. Current meds reviewed and are listed in EMR. Educational information discussed including: indication, potential drug interactions (including ASA and ibuprofen), dietary considerations, effects of alcohol, changes in general health to report, compliance with f/u, dosing (including missed doses), signs of bleeding/clotting to report, and to seek medical attention if illness or injury occurs. [facility] voicemail number given to pt. Take home material provided. Pt verbalized understanding. PT HAS BEEN ON WARFARIN SINCE AT LEAST 2016 AND IS NOW ESTABLISHING CARE WITH AMS CLINIC. * Target INR 2-3. Monitoring practitioner JENNIFER PALACIOS. * Date Warfarin Begun: 2016 * INR monitoring is per [facility] protocol. PT MAY NOT GO LONGER THAN 2 WEEKS BETWEEN APPTS. * The patient is on anticoagulation due to LVAD and NOTIFY LVAD COORDINATOR JENNIFER PALACIOS (PAGER #[phone]) FOR INR <1.8 OR >4. * The patient is currently taking warfarin Tablet strength and color: 3 mg (Ugarte) * Interval History: * Incoming total weekly dose 31.5 mg. * Today's Clinic INR: [facility] INR 2.8. * Since last visit, the [...] PT REQUESTS SUBSEQUENT APPTS TO BE AT [facility]. * Outgoing total weekly dose 31.5 mg. [...] SEND FORM TO DEVIN LAZARO. Anticoagulation Monitoring Service-[facility] Work Phone: Progress note No data available for this section [facility] (n[facility]ative)* Diagnostic Procedure Only (Routine) - Pending Review Specialty Diagnoses / Procedures Referred By Tegan hawk Referred To Contact XR IMAGING Diagnoses MGUS (monoclonal gammopathy of unknown significance) Thrombocytopenia (HCC) Encounter for screening for human immunodeficiency virus (HIV) Procedures XR BONE SURVEY ROUTINE RADIOLOGIC EXAMINATION OSSEOUS SURVEY COMPL Jerrell Kraus MD [address] [place] [address] [place] [address] Xr Imaging Referral ID Status Reason Start Date Expiration Date Visits Requested Visits Authorized [id number] Pending Review Auto-Generat ed Referral 09/21/2021 10/21/2022 1 1 * Diagnostic Procedure Only (Routine) - Pending Review Specialty Diagnoses / Procedures Referred By Tegan hawk Referred To Contact US IMAGING Diagnoses MGUS (monoclonal gammopathy of unknown significance) Thrombocytopenia (HCC) Encounter for screening for human immunodeficiency virus (HIV) Procedures US ABD RT UPPER QUADRANT US ABDOMINAL REAL TIME W/IMAGE LIMITED Jerrell Kraus MD [address] [place] [address] [place] [address] Us Imaging Referral ID Status Reason Start Date Expiration Date Visits Requested Visits Authorized [id number] Pending Review Auto-Generat ed Referral 09/21/2021 10/21/2022 1 1 * Diagnostic Procedure Only (Routine) - Pending Review Specialty Diagnoses / Procedures Referred By Contac t Referred To Contact US IMAGING Diagnoses MGUS (monoclonal gammopathy of unknown significance) Thrombocytopenia (HCC) Encounter for screening for human immunodeficiency virus (HIV) Procedures US ABD SPLEEN US ABDOMINAL REAL TIME W/IMAGE LIMITED Jerrell Kraus MD [address] [place] [address] [place] [address] Us Imaging Referral ID Status Reason Start Date Expiration Date Visits Requested Visits Authorized [id number] Pending Review Auto-Generat ed Referral 09/21/2021 10/21/2022 1 1 [facility] for referral (narrative)* Diagnostic Procedure Only (Routine) - Authorized Specialty Diagnoses / Procedures Referred By Contac t Referred To Contact MOLECULAR & FUNCTIONAL IMAGING Diagnoses Multiple myeloma not having achieved remission (HCC) Monoclonal gammopathy Procedures NM PET/CT WHOLE BODY INITIAL PET IMAGING FOR CT ATTENUATION WHOLE BODY Ailyn Friend MD [address] [place] [address] Molecular & Functional Imaging [address] [place] [address] Referral ID Status Reason Start Date Expiration Date Visits Requested Visits Authorized [id number] Authorized Auto-Generat ed Referral 12/19/2022 10/18/2023 1 1 [facility] Diagnostic Procedure Only (Routine) - Closed Specialty Diagnoses / Procedures Referred By Contac t Referred To Contact MOLECULAR & FUNCTIONAL IMAGING Diagnoses Multiple myeloma not having achieved remission (HCC) Monoclonal gammopathy Procedures NM PET/CT WHOLE BODY INITIAL PET IMAGING FOR CT ATTENUATION WHOLE BODY Ailyn Friend MD [address] [place] [address] Molecular & Functional Imaging [address] [place], [place] [id number] Referral ID Status Reason Start Date Expiration Date V isits Requested Visits Authorized [id number] Closed Auto-Generate d Referral 12/19/2022 10/18/[address] 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 [facility] Power of Atty 05/27/2023 Date Activated Date Inactivated Comments 05/19/2023 6:33 PM Question Answer Comments Plan of Care: Code Status Discussion Completed Decision Maker: Patient Latest Code Status on File Code Status Date Activated Date Inactivated Comments Full Code 05/19/2023 6:33 PM Question Answer Comments Plan of Care: Code Status Discussion Completed Decision Maker: Patient Documents on File Type Date Recorded 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 [facility] Healthcare Power of Atty 05/27/2023 Latest Code Status [...] device check - Remote Matias Driver MD [facility] [place] [address] Referral ID Status Reason Start Date Expiration Date Visits Requested Visits Authorized [id number] Pending Review Perform Procedure 05/27/2023 05/26/2024 1 1 Referral ID Status Reason Start Date Expiration Date Visits Requested Visits Authorized [id number] Pending Review Perform Procedure 05/29/2023 05/28/2024 1 1 Specialty Diagnoses / Procedures Referred By Contac t Referred To Contact Cardiology Diagnoses Cardiomyopathy, unspecified (CMS/HCC) Presence of automatic (implantable) cardiac defibrillator Procedures Cardiac device check - Remote Matias Driver MD [facility] [place] [address] Referral ID Status Reason Start Date Expiration Date Visits Requested Visits Authorized [id number] Pending Review Perform Procedure 06/11/2023 06/10/2024 1 1 Referral ID Status Reason Start Date Expiration Date Visits Requested Visits Authorized [id number] Pending Review Perform Procedure 06/14/2023 06/13/2024 1 1 Referral ID Status Reason Start Date Expiration Date Visits Requested Visits Authorized [id number] Pending Review Perform Procedure 06/17/2023 06/16/2024 1 1 Specialty Diagnoses / Procedures Referred By Contac t Referred To Contact Cardiology Diagnoses VT (ventricular tachycardia) (Multi) Cardiomyopathy, unspecified type (Multi) Procedures Cardiac Device Check - In Clinic Matias Driver MD [address] [place] [address] Referral ID Status Reason Start Date Expiration Date Visits Requested Visits Authorized [id number] Pending Review Perform Procedure 06/03/2023 06/02/2024 7 7 Specialty Diagnoses / Procedures Referred By Contac t Referred To Contact Cardiology Diagnoses LVAD (left ventricular assist device) present (Multi) HFrEF (heart failure with reduced ejection fraction) (Multi) Procedures Transthoracic Echo (TTE) Complete [place] ECHO TTHRC R-T 2D W/WOM-MODE COMPL SPEC&[place] [address] [place] [address] Referral ID Status Reason Start Date Expiration Date Visits Requested Visits Authorized [id number] Pending Review Perform Procedure 09/23/2023 09/22/2024 1 1 Additional Source Comments (unrecognized sect ion and content) No Status Records FoundNo Status Records FoundNo Status Records FoundNo Status Records FoundNo Status Records FoundNo Status Records FoundNo Status Records FoundNo Status Records FoundNo Status Records FoundNo Status Records Found INFORMATION SOURCE (unrecogn ized section and content) DATE CREATED AUTHOR 08/24/2018 [facility] DATE CREATED AUTHOR AUTHOR'S ORGANIZ ATION 08/17/2022 [employer] DATE CREATED AUTHOR AUTHOR'S ORGANIZ ATION 09/02/2022 [facility] DATE CREATED AUTHOR AUTHOR'S ORGANIZ ATION 04/11/[address] [facility] DATE CREATED AUTHOR AUTHOR'S ORGANIZ ATION 08/04/2023 [facility] DATE CREATED AUTHOR AUTHOR'S ORGANIZ ATION 08/14/2023 [facility] DATE CREATED AUTHOR AUTHOR'S ORGANIZ ATION 10/26/2023 [facility] DATE CREATED AUTHOR AUTHOR'S ORGANIZ ATION 01/02/2024 [facility] DATE CREATED AUTHOR AUTHOR'S ORGANIZ ATION 01/30/2024 [facility] DATE CREATED AUTHOR AUTHOR'S LEXUS ALANIS 02/02/2024 [facility] <item><item> Privacy Markings (unrecogniz ed section and [...] or prosecute any alcohol or drug abuse patient.[facility] the event this information is protected by the Federal Confidentiality of Alcohol and Drug Abuse Patient Records regulations: The Federal rules restrict any use of the information to criminally investigate or prosecute any alcohol or drug abuse patient.[facility] HospitalIn the event this information is protected by the Federal Confidentiality of Alcohol and Drug Abuse Patient Records regulations: The Federal rules restrict any use of the information to criminally investigate or prosecute any alcohol or drug abuse patient.[facility] the event this information is protected by the Federal Confidentiality of Alcohol and Drug Abuse Patient Records regulations: The Federal rules restrict any use of the information to criminally investigate or prosecute any alcohol or drug abuse patient.[facility] the event this information is protected by the Federal Confidentiality of Alcohol and Drug Abuse Patient Records regulations: The Federal rules restrict any use of the information to criminally investigate or prosecute any alcohol or drug abuse patient.[facility] the event this information is protected by the Federal Confidentiality of Alcohol and Drug Abuse Patient Records regulations: The Federal rules restrict any use of the information to criminally investigate or prosecute any alcohol or drug abuse patient.[facility] the event this information is protected by the Federal Confidentiality of Alcohol and Drug Abuse Patient Records regulations: The Federal rules restrict any use of the information to criminally investigate or prosecute any alcohol or drug abuse patient.[facility] the event this information is protected by the Federal Confidentiality of Alcohol and Drug Abuse Patient Records regulations: The Federal rules restrict any use of the information to criminally investigate or prosecute any alcohol or drug abuse patient.[facility] the event this information is protected by the Federal Confidentiality of Alcohol and Drug Abuse Patient Records regulations: The Federal rules restrict any use of the information to criminally investigate or prosecute any alcohol or drug abuse patient.[facility] the event this information is protected by the Federal Confidentiality of Alcohol and Drug Abuse Patient Records regulations: The Federal rules restrict any use of the information to criminally investigate or prosecute any alcohol or drug abuse patient.[facility] the event this information is protected by the Federal Confidentiality of Alcohol and Drug Abuse Patient Records regulations: The Federal rules restrict any use of the information to criminally investigate or prosecute any alcohol or drug abuse patient.[facility] Hospital[facility] the event this information is protected by the Federal Confidentiality of Alcohol and Drug Abuse Patient Records regulations: The Federal rules restrict any use of the information to criminally investigate or prosecute any alcohol or drug abuse patient.[facility] Reason for Visit (unrecogniz ed section [...] Procedures NO CODED SERVICES Len Guardado MD [address] [address] [facility] [address] [place] [address] Referral ID Status Reason Start Date Expiration Date Visits Re quested Visits Authorized [id number] 1 1 Specialty Diagnoses / Procedures Referred By Contac t Referred To Contact Cardiology Diagnoses Cardiomyopathy, unspecified (CMS/HCC) Presence of automatic (implantable) cardiac defibrillator Procedures Cardiac device check - Remote Matias Driver MD [address] [place] [address] Referral ID Status Reason Start Date Expiration Date Visits Requested Visits Authorized [id number] Pending Review Perform Procedure 05/27/2023 05/26/2024 1 1 Referral ID Status Reason Start Date Expiration Date Visits Requested Visits Authorized [id number] Pending Review Perform Procedure 05/29/2023 05/28/2024 1 1 Specialty Diagnoses / Procedures Referred By Contac t Referred To Contact Cardiology Diagnoses Cardiomyopathy, unspecified (CMS/HCC) Presence of automatic (implantable) cardiac defibrillator Procedures Cardiac device check - Remote Matias Driver MD [address] [place] [address] Referral ID Status Reason Start Date Expiration Date Visits Requested Visits Authorized [id number] Pending Review Perform Procedure 06/11/2023 06/10/2024 1 1 Referral ID Status Reason Start Date Expiration Date Visits Requested Visits Authorized [id number] Pending Review Perform Procedure 06/14/2023 06/13/2024 1 1 Referral ID Status Reason Start Date Expiration Date Visits Requested Visits Authorized [id number] Pending Review Perform Procedure 06/17/2023 06/16/2024 1 1 Specialty Diagnoses / Procedures Referred By Contac t Referred To Contact Cardiology Diagnoses VT (ventricular tachycardia) (Multi) Cardiomyopathy, unspecified type (Multi) Procedures Cardiac Device Check - In Clinic Matias Driver MD [address] [place] [address] Referral ID Status Reason Start Date Expiration Date Visits Requested Visits Authorized [id number] Pending Review Perform Procedure 06/03/2023 06/02/2024 7 7 Reason Comments Lvad Present Reason Comments IV iron Specialty Diagnoses / Procedures Referred By Contac t Referred To Contact Diagnoses Iron deficiency anemia due to chronic blood loss Ailyn Friend MD [address] [place] [address] [facility] [address] [place] [address] Referral ID Status Reason Start Date Expiration Date V isits Requested Visits Authorized [id number] Authorized 10/17/2023 01/15/2024 99 99 Reason Comments Radiology NM Specialty Diagnoses / Procedures Referred By Contac t Referred To Contact MOLECULAR & FUNCTIONAL IMAGING Diagnoses Multiple myeloma not having achieved remission (HCC) Monoclonal gammopathy Procedures NM PET/CT WHOLE BODY INITIAL PET IMAGING FOR CT ATTENUATION WHOLE BODY Ailyn Friend MD [address] [place] [address] Molecular & Functional Imaging [address] [place] [address] Referral ID Status Reason Start Date Expiration Date V isits Requested Visits Authorized [id number] Closed Auto-Generate d Referral 12/19/2022 10/18/2023 1 1 Care Teams (unrecognized sec tion and content) Towboat Pilot Relationship Specialty Start Date End Date Joleen Herrera, CAREER PLACEMENT SERVICES COUNSELOR [address] [place] [address] PCP - General Family Practice 09/13/21 Towboat Pilot Relationship Specialty Start Date End Date [facility], CAREER PLACEMENT SERVICES COUNSELOR [address] [place] [address] PCP - General Family Practice 09/13/21 Towboat Pilot Relationship Specialty Start Date End Date BamJoleen ramirez, CAREER PLACEMENT SERVICES COUNSELOR [address] [place] [address] PCP - General Family Practice 09/13/21 Towboat Pilot Relationship Specialty Start Date End Date AichJoleen ramirez, CAREER PLACEMENT SERVICES COUNSELOR [address] [place] [address] PCP - General Family Medicine 09/13/21 Towboat Pilot Relationship Specialty Start Date End Date [facility] jean baptiste, CAREER PLACEMENT SERVICES COUNSELOR [address] [place] [place] [address] PCP - General Family Medicine 09/13/21 Towboat Pilot Relationship Specialty Start Date End Date [facility] ram[facility], CAREER PLACEMENT SERVICES COUNSELOR [address] [place] [address] PCP - General Family Medicine 09/13/21 Towboat Pilot Relationship Specialty Start Date End Date [facility] ram[facility] CAREER PLACEMENT SERVICES COUNSELOR [address] [place] [address] PCP - General Family Medicine 09/13/21 Towboat Pilot Relationship Specialty Start Date End Date [facility] ramirez LUMBER SCALER-CAREER PLACEMENT SERVICES COUNSELOR [address] [place] [address] PCP - General 02/21/20 Poly Dominguez, DIDI Registered Nurse Transplant 01/23/23 Nazanin Coleman, IDDI MCS Coordinator Transplant 05/17/23 [place] [address] [place] [address] Consulting Physician Cardiology 05/17/23 Aisha Enriquez APRN-CAREER PLACEMENT SERVICES COUNSELOR [address] Department [place] [address] Nurse Practitioner Cardiology 05/23/23 Towboat Pilot Relationship Specialty Start Date End Date Joleen Herrera LUMBER SCALER-CAREER PLACEMENT SERVICES COUNSELOR [address] [place] [facility] [place] [address] PCP - General 02/21/20 Poly Dominguez, RN Registered Nurse Transplant 01/23/23 Nazanin Coleman, DIDI MCS Coordinator Transplant 05/17/23 [place] [address] [place] [address] Consulting Physician Cardiology 05/17/23 Aisha Enriquez LUMBER SCALER-CAREER PLACEMENT SERVICES COUNSELOR [address] Department [place] [address] Nurse Practitioner Cardiology 05/23/23 Towboat Pilot Relationship Specialty Start Date End Date Obed Burrell MD PCP - General Family Medicine 04/17/23 Joleen Herrera NP [address] [place] [phone] Nurse Practitioner Family Medicine 04/17/23 Towboat Pilot Relationship Specialty Start Date End Date Obed Burrell MD [address] [place] [phone] PCP - General Family Medicine 05/30/23 Joleen Herrera NP [address] [place] [address] Nurse Practitioner Family Medicine 04/17/23 Towboat Pilot Relationship Specialty Start Date End Date Joleen Herrera APRN-CAREER PLACEMENT SERVICES COUNSELOR [address] [place] [facility] [place] [address] PCP - General 02/21/20 Poly Dominguez, RN Registered Nurse Transplant 01/23/23 Nazanin Coleman, RN MCS Coordinator Transplant 05/17/23 [place] [address] [place] [address] Consulting Physician Cardiology 05/17/23 Aisha Enriquez LUMBER SCALER-[facility] [address] [place] [address] Nurse Practitioner Cardiology 05/23/23 Lainey Zhang, [facility] Sanforizing Machine Operator Deicer Repairer Electric 05/30/23 Towboat Pilot Relationship Specialty Start Date End Date Joleen Herrera [facility] [address] [place] [facility] [place] [address] PCP - General 02/21/20 Poly Dominguez, DIDI Registered Nurse Transplant 01/23/23 Nazanin Coleman RN MCS Coordinator Transplant 05/17/23 [place] [address] [place] [address] Consulting Physician Cardiology 05/17/23 Aisha Enriquez [facility] [address] [place] [address] Nurse Practitioner Cardiology 05/23/23 Lainey Zhang, [facility] Sanforizing Machine Operator Deicer Repairer Electric 05/30/23 Towboat Pilot Relationship Specialty Start Date End Date Joleen Herrera [facility] [address] [place] [place] [address] PCP - General 02/21/20 Nazanin Coleman RN MCS Coordinator Transplant 05/17/23 [place] [address] [place] [address] Consulting Physician Cardiology 05/17/23 Aisha Enriquez APRN-JENNIFER [address] [place] [address] Nurse Practitioner Cardiology 05/23/23 Lainey Zhang, [facility] Services 05/30/23 Towboat Pilot Relationship Specialty Start Date End Date [facility] Center[facility] sears [facility] [address] [place] [place] [place] [phone] PCP - General 02/21/20 Nazanin Coleman, RN MCS Coordinator Transplant 05/17/23 [place] [address] [place] [address] Consulting Physician Cardiology 05/17/23 Aisha Enriquez APRN-CAREER PLACEMENT SERVICES COUNSELOR [address] [place] [address] Nurse Practitioner Cardiology 05/23/23 Lainey Zhang, [facility] 05/30/23 Towboat Pilot Relationship Specialty Start Date End Date [facility] APR[facility] [address] [place] [place] [place] [phone] PCP - General 02/21/20 Nazanin Coleman, DIDI MCS Coordinator Transplant 05/17/23 Len Guardado MD Consulting Physician Cardiology 05/17/23 Aisha Enriquez APRN-CAREER PLACEMENT SERVICES COUNSELOR Nurse Practitioner Cardiology 05/23/23 Lainey Zhang, [employer] Sanforizing Machine Operator Deicer Repairer Electric 05/30/23 Rupali eRece, DIDI [facility] Coordinator Transplant 09/03/23 Towboat Pilot Relationship Specialty Start Date End Date Joleen Herrera CNP [address] [place] [address] PCP - General Family Medicine 09/13/21 Towboat Pilot Relationship Specialty Start Date End Date Joleen Herrera CNP [address] [place] [address] PCP - General Family Medicine 09/13/21 Towboat Pilot Relationship Specialty Start Date End Date Joleen Herrera CNP [address] [place] [address] PCP - General Family Medicine 09/13/21 Towboat Pilot Relationship Specialty Start Date End Date Joleen Herrera CNP [address] [place] [address] PCP - General Family Medicine 09/13/21 Towboat Pilot Relationship Specialty Start Date End Date Joleen Herrera CNP [address] [place] [address] PCP - General Family Medicine 09/13/21 Scheduled [...] RN) 0608 (Given - Provider: Darby Nunez RN)134 (Given - Provider: Eliana Peterson RN)2114 (Due) aspirin EC tablet 81 mg 81 [...] Prophylaxis 1337 (Given - Provider: Esther Pugh RN)2036 (Given - Provider: Darby Nunez RN) 0608 (Given - Provider: Darby Nunez RN)1325 (Given - Provider: Eliana Peterson RN)0 (Due) cholecalciferol (Vitamin D-3) tablet 2,000 Units 2,000 Units, oral, Daily, First dose on 05/19/23 at 1230 0922 (Given - Provider: Esther Pugh RN) 09 (Given - Provider: Esther Pugh RN) 08 (Given - Provider: Esther Pugh RN) dapagliflozin propanediol (Farxiga) tablet 10 mg 10 mg, oral, Daily before breakfast, First dose on Sat05/20/23 at 0700, Indications: heart failure with reduced ejection fraction 0601 (Given - Provider: Maribell Bradshaw RN) 06 (Given - Provider: Darby Nunez RN) 06 (Given - Provider: Darby Nunez RN) digoxin [...] After use, clean tip and replace cap. 09 (Not Given - Provider: Esther Pugh RN - Reason: Patient/family refused) 09 (Not Given - Provider: Esther Pugh RN [...] 100 mcg, oral, Daily, First dose on Sat05/19/23 at 1230 0926 (Given - Provider: Esther [...] RN) 0838 (Not Given - Provider: Esther Pguh RN - Reason: Other)2099 (Due) pantoprazole (ProtoNix) EC tablet 40 mg 40 mg, oral, Daily before breakfast, First dose on Sat05/20/23 at 0700, Do not crush, chew, or split. 0601 (Given - Provider: Maribell Bradshaw RN) 0610 (Given - Provider: Darby Nunez RN) 0609 (Given - Provider: Darby Nunez RN) rosuvastatin (Crestor) tablet 10 mg 10 mg, oral, Daily, First dose on Sat05/19/23 at 1230 0926 (Given - Provider: Esther Pugh RN) 0932 (Given - Provider: Esther Pugh RN) 0840 (Given - Provider: Esther Pugh, DIDI) sennosides-docusate sodium (Beatrice-Colace) 8.6-50 mg per tablet 1 tablet 1 tablet, oral, Nightly, First dose on 05/19/23 at 2099 2025 (Given - Provider: Darby Nunez RN) 2036 (Given - Provider: Darby Nunez RN) 2100 (Due) spironolactone (Aldactone) tablet 25 mg 25 mg, oral, Daily, First dose on Sat05/19/23 at 1230 0921 (Given - Provider: Esther [...] RN)2040 (See Alternative - Provider: Darby Nunez, DIDI) acetaminophen (Tylenol) tablet 650 mg(Linked Group 2) 650 mg, oral, Every 4 hours PRN, pain mild (1-3), first line, Starting on Leny 05/23/23 at 1153, If ordered PRN for pain, nurse is permitted to administer this medication for higher pain scores based on patient preference? Yes 1235 (Given - Provider: Esther Pugh RN)2040 (Given - Provider: Darby Nunez, DIDI) bupivacaine PF (Marcaine) 0.25 % (2.5 mg/mL) [...] 1616, Intraprocedure 1616 (Given - Provider: Parker Moser RN)1625 (Given - Provider: Praker Moser RN) glucagon (Glucagen) injection 1 mg [...] 1616, Intraprocedure 1616 (Given - Provider: Parker Moser RN)1625 (Given [...] Intraprocedure 1616 (New Bag - Provider: Parker Mosre RN) Linked Groups Order Group 1: vancomycin [...] BE BASED ON THE PRIMARY CLINICAL RECORDS. [facility] [employer] [facility]. provides no warranty or guarantee of the accuracy or completeness of information in this document.
[2024-02-04 20:10] LABS: Basophils Absolute Auto 0.1 10^3/uL (0.0-0.1); Basophils Percent Auto 1.1 % (0.2-2.0); Eosinophils Absolute Auto 0.3 10^3/uL (0.0-0.7); Eosinophils Percent Auto 4.2 % (0.9-7.0); Hematocrit 26.2 % (42.0-54.0); Hemoglobin 7.4 g/dL (14.0-18.0); Immature Granulocytes Abs Auto 0.03 10^3/uL (0.00-0.03); Immature Granulocytes Pct Auto 0.5 % (0.0-0.5); Lymphocytes Absolute Auto 0.7 10^3/uL (1.2-3.8); Lymphocytes Percent Auto 11.7 % (20.5-60.0); Mean Corpuscular HGB Conc 28.2 g/dL (29.9-35.2); Mean Corpuscular Hemoglobin 23.9 pg (25.9-34.0); Mean Corpuscular Volume 84.5 fL (80.0-94.0); Mean Platelet Volume 11.6 fL (9.5-13.5); Monocytes Absolute Auto 0.7 10^3/uL (0.3-0.8); Monocytes Percent Auto 11.7 % (1.7-12.0); Neutrophils Absolute Auto 4.4 10^3/uL (1.4-6.5); Neutrophils Percent Auto 70.8 % (43.0-75.0); Platelet Count 198 10^3/uL (150-450); Red Cell Distribution Width 18.2 % (11.0-15.0); White Blood Count 6.2 10^3/uL (4.0-11.0)
[2024-02-04 20:23] LABS: INR 2.87; Prothrombin Time 27.4 sec (9.0-11.6)
[2024-02-04 20:23] LABS: Influenza Virus A Antigen Negative; Influenza Virus B Antigen Negative; Internal Control Within Normal Limits; Respiratory Syncytial Virus Not Detected (NOT DETECTE); SARS-CoV-2 Ag NEGATIVE (NEGATIVE)
[2024-02-04 20:25] LABS: Alanine Aminotransferase 24 U/L (16-63); Albumin Globulin Ratio 0.8; Albumin Level 3.5 g/dL (3.4-5.0); Alkaline Phosphatase 80 U/L (46-116); Anion Gap 11.6; Aspartate Amino Transferase 21 U/L (15-37); BUN Creatinine Ratio 13.1; Bilirubin Total 0.6 mg/dL (0.2-1.0); Calcium 8.9 mg/dL (8.5-10.1); Carbon Dioxide 27.4 mmol/L (21.0-32.0); Chloride 104 mmol/L (98-107); Estimated GFR (African America 37 (>=60 mL/min/1.73m^2); Estimated GFR (Non-African Ame 30 (>=60 mL/min/1.73m^2); Globulin 4.5 g/dL; Glucose 216 mg/dL (74-106); Sodium 139 mmol/L (136-145)
[2024-02-04 20:34] LABS: Magnesium 2.2 mg/dL (1.8-2.4); Thyroid Stimulating Hormone 4.435 uIU/mL (0.358-3.740); Troponin I High Sensitivity 16.4 pg/mL (4.0-76.1)
[2024-02-04 20:43] LABS: Internal Control Within Normal Limits; Occult Blood Positive
[2024-02-04] MEDS: PANTOPRAZOLE SODIUM 40 MG VIAL IV (21:03)
[2024-02-04 22:07] LABS: Bilirubin Urine NEGATIVE (NEGATIVE); Blood Urine NEGATIVE (NEGATIVE); Clarity Urine CLEAR (CLEAR); Color Urine LT. YELLOW (YELLOW); Glucose Urine UA >=1000 mg/dL (NEGATIVE); Ketones Urine NEGATIVE (NEGATIVE); Leukocyte Esterase Urine NEGATIVE (NEGATIVE); Nitrite Urine NEGATIVE (NEGATIVE); Protein Urine NEGATIVE (NEG/TRACE)
[2024-02-04 22:09] LABS: Urine Microscopic Indicated NO
[2024-02-04 22:30] VITALS: BP 78/0; PULSE 80; TEMP 36.6; O2SAT 96
[2024-02-04] MEDS: 0.9 % SODIUM CHLORIDE 250 ML 10 ML IV (22:30)
[2024-02-04 22:45] VITALS: BP 80/0; PULSE 78; TEMP 37.1; O2SAT 98
--- NOTE | 2024-02-04 23:28 | PC.NURSE ---
The [facility] transport team arrives at this time. PRBC's infusing as patient leaves.
--- NOTE | 2024-02-04 23:31 | PC.NURSE ---
Report called to DIDI Mallory. at [facility].
== END 2024-02-04 23:33 | disposition short-term general hospital (02) ==
PROVIDERS: Physician Assistant; Emergency Provider Internal Medicine; PCP Nurse Practitioner
DX: D64.9 Anemia, unspecified (principal); K92.2 Gastrointestinal hemorrhage, unspecified; R42 Dizziness and giddiness; R06.02 Shortness of breath; Z87.891 Personal history of nicotine dependence; Z79.01 Long term (current) use of anticoagulants; Z20.822 Contact with and (suspected) exposure to COVID-19; Z95.811 Presence of heart assist device
CPT/HCPCS: 36415; 36430; 70450; 71045; 80053; 81003; 83735; 83880; 84443; 84484; 85025; 85610; 86850; 86900; 86901; 86923; 87420; 87804; 87811; 96374; 99285; G0328; P9016

== ENCOUNTER 2024-03-10 09:16 | Outpatient (OUT) | payer MEDICARE, SELFPAY ==
[2024-03-10 10:13] LABS: Basophils Absolute Auto 0.1 10^3/uL (0.0-0.1); Basophils Percent Auto 1.4 % (0.2-2.0); Eosinophils Absolute Auto 0.4 10^3/uL (0.0-0.7); Eosinophils Percent Auto 6.1 % (0.9-7.0); Hematocrit 40.5 % (42.0-54.0); Hemoglobin 12.4 g/dL (14.0-18.0); Immature Granulocytes Abs Auto 0.01 10^3/uL (0.00-0.03); Immature Granulocytes Pct Auto 0.2 % (0.0-0.5); Lymphocytes Absolute Auto 0.7 10^3/uL (1.2-3.8); Lymphocytes Percent Auto 12.2 % (20.5-60.0); Mean Corpuscular HGB Conc 30.6 g/dL (29.9-35.2); Mean Corpuscular Hemoglobin 28.3 pg (25.9-34.0); Mean Corpuscular Volume 92.5 fL (80.0-94.0); Monocytes Absolute Auto 0.8 10^3/uL (0.3-0.8); Monocytes Percent Auto 13.9 % (1.7-12.0); Neutrophils Absolute Auto 3.8 10^3/uL (1.4-6.5); Neutrophils Percent Auto 66.2 % (43.0-75.0); Red Blood Count 4.38 10^6/uL (4.70-6.10); Red Cell Distribution Width 20.8 % (11.0-15.0); White Blood Count 5.7 10^3/uL (4.0-11.0)
[2024-03-10 10:14] LABS: Platelet Count 141 10^3/uL (150-450)
== END 2024-03-10 09:17 | disposition home or self-care (01) ==
LOC: LAB 09:20
PROVIDERS: PCP Nurse Practitioner; Visit Provider Nurse Practitioner
DX: D50.0 Iron deficiency anemia secondary to blood loss (chronic) (principal)
CPT/HCPCS: 36415; 83540; 85025

== ENCOUNTER 2024-05-15 10:28 | Outpatient (OUT) | payer MEDICARE, SELFPAY ==
[2024-05-15 11:02] LABS: Basophils Absolute Auto 0.1 10^3/uL (0.0-0.1); Eosinophils Absolute Auto 0.3 10^3/uL (0.0-0.7); Eosinophils Percent Auto 4.9 % (0.9-7.0); Hematocrit 37.2 % (42.0-54.0); Immature Granulocytes Abs Auto 0.02 10^3/uL (0.00-0.03); Immature Granulocytes Pct Auto 0.3 % (0.0-0.5); Lymphocytes Absolute Auto 0.7 10^3/uL (1.2-3.8); Lymphocytes Percent Auto 12.7 % (20.5-60.0); Mean Corpuscular HGB Conc 29.6 g/dL (29.9-35.2); Mean Corpuscular Hemoglobin 25.1 pg (25.9-34.0); Mean Corpuscular Volume 84.7 fL (80.0-94.0); Mean Platelet Volume 11.6 fL (9.5-13.5); Monocytes Absolute Auto 0.8 10^3/uL (0.3-0.8); Monocytes Percent Auto 13.7 % (1.7-12.0); Neutrophils Absolute Auto 3.9 10^3/uL (1.4-6.5); Neutrophils Percent Auto 67.4 % (43.0-75.0); Platelet Count 177 10^3/uL (150-450); Red Blood Count 4.39 10^6/uL (4.70-6.10); Red Cell Distribution Width 16.5 % (11.0-15.0); White Blood Count 5.8 10^3/uL (4.0-11.0)
[2024-05-15 11:39] LABS: Digoxin 1.3 ng/mL (0.9-2.0)
[2024-05-15 11:50] LABS: Alanine Aminotransferase 43 U/L (16-63); Albumin Globulin Ratio 0.8; Albumin Level 3.5 g/dL (3.4-5.0); Alkaline Phosphatase 93 U/L (46-116); Anion Gap 7.4; Aspartate Amino Transferase 32 U/L (15-37); BUN Creatinine Ratio 13.9; Bilirubin Total 0.6 mg/dL (0.2-1.0); Calcium 8.6 mg/dL (8.5-10.1); Carbon Dioxide 32.6 mmol/L (21.0-32.0); Chloride 101 mmol/L (98-107); Estimated GFR (African America 49 (>=60 mL/min/1.73m^2); Estimated GFR (Non-African Ame 40 (>=60 mL/min/1.73m^2); Globulin 4.5 g/dL; Glucose 206 mg/dL (74-106); Lactate Dehydrogenase 529 U/L (85-227); Sodium 137 mmol/L (136-145)
== END 2024-05-15 10:29 | disposition home or self-care (01) ==
LOC: LAB 10:30
PROVIDERS: PCP Nurse Practitioner; Visit Provider Registered Nurse Critical Care Medicine
DX: I50.20 Unspecified systolic (congestive) heart failure (principal); Z95.811 Presence of heart assist device; E11.638 Type 2 diabetes mellitus with other oral complications; Z79.4 Long term (current) use of insulin
CPT/HCPCS: 36415; 80053; 80162; 83615; 83880; 85025

== ENCOUNTER 2024-06-03 09:47 | Outpatient (OUT) | payer MEDICARE, SELFPAY ==
[2024-06-03 10:46] LABS: Estimated Average Glucose 203 mg/dL; Glycohemoglobin A1C 8.7 % (4.5-6.2)
[2024-06-03 10:54] LABS: Bilirubin Urine NEGATIVE (NEGATIVE); Blood Urine NEGATIVE (NEGATIVE); Clarity Urine CLEAR (CLEAR); Color Urine LT. YELLOW (YELLOW); Glucose Urine UA >=1000 mg/dL (NEGATIVE); Ketones Urine NEGATIVE (NEGATIVE); Leukocyte Esterase Urine NEGATIVE (NEGATIVE); Nitrite Urine NEGATIVE (NEGATIVE); Protein Urine NEGATIVE (NEG/TRACE); Specific Gravity Urine 1.015 (1.005-1.025); pH Urine 5.5 (5.0-9.0)
[2024-06-03 10:55] LABS: Urine Microscopic Indicated NO
[2024-06-03 10:56] LABS: Creatinine Urine Random 53.92 mg/dL (20.00-300.00); Microalbum Creatinine Ratio Ur 27.8 mg/g (0.0-29.9); Microalbumin Urine Random 1.5 mg/dL (<=30.0)
[2024-06-03 11:23] LABS: Thyroid Stimulating Hormone 5.751 uIU/mL (0.358-3.740)
[2024-06-03 11:34] LABS: Free T4 1.36 ng/dL (0.76-1.46)
== END 2024-06-03 09:48 | disposition home or self-care (01) ==
PROVIDERS: PCP Nurse Practitioner; Visit Provider Nurse Practitioner
DX: E03.9 Hypothyroidism, unspecified (principal); I10 Essential (primary) hypertension; E11.42 Type 2 diabetes mellitus with diabetic polyneuropathy; Z79.4 Long term (current) use of insulin; E55.9 Vitamin D deficiency, unspecified
CPT/HCPCS: 36415; 81003; 82043; 82306; 82570; 83036; 84439; 84443

== ENCOUNTER 2024-08-16 19:00 | Emergency (ER) | payer MEDICARE, SELFPAY ==
[2024-08-16] VITALS (25 sets, daily range): BP systolic 88–102; BP diastolic 0; PULSE 73–82; TEMP 36.7–37.1; O2SAT 67–100; BMI 36.5
--- NOTE | 2024-08-16 19:34 | ECG_ITS ---
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 Measurements Intervals [place] Rate: 83 P: [place]: QRS: QRSD: 222 T: QT: 556 QTc: 556 Interpretive Statements Electronic ventricular pacemaker Compared to ECG 05/19/2023 07:09:55 Ventricular fibrillation is no longer present Electronically Signed On 08-16-2024 21:07:56 EDT by TADEO SAINI M.D.
--- NOTE | 2024-08-16 19:35 | ED_ITS ---
HPI - Dizziness General Chief Complaint: Dizziness Stated Complaint: dizzy Time Seen by Provider: 08/16/24 19:06 Source: patient and family Mode of arrival: Wheelchair History of Present Illness HPI Narrative: This 64-year-old male with a history of diabetes, hypertension, heart failure who has an LVAD presents for evaluation of generalized weakness and dizziness. The patient has a history of GI bleeding and has been told in the past that is related to having the LVAD and the medications that he has to be on. He had several episodes of melanotic stool yesterday. He denies any abdominal pain. He has not had any nausea or vomiting. He denies any chest pain or shortness of breath that is unusual for him. He has not had a fever or cough. Related Data Home Medications ?Medication ?Instructions ?Recorded ?Confirmed carvedilol 6.25 mg tablet 6.25 mg PO Q12H 05/19/23 08/16/24 dapagliflozin propanediol 10 mg 10 mg PO DAILY 05/19/23 08/16/24 tablet (Farxiga) digoxin 125 mcg (0.125 mg) tablet 0.125 mg PO .3 times weekly 05/19/23 08/16/24 gabapentin 300 mg capsule 300 mg PO BID 05/19/23 08/16/24 insulin glargine 100 unit/mL (3 32 unit subcut BID 05/19/23 08/16/24 mL) subcutaneous pen (Basaglar KwikPen U-100 Insulin) levothyroxine 100 mcg tablet 100 mcg PO DAILY 05/19/23 08/16/24 loratadine 10 mg tablet 10 mg PO DAILY 05/19/23 08/16/24 rosuvastatin 10 mg tablet 10 mg PO DAILY 05/19/23 08/16/24 spironolactone 25 mg tablet 25 mg PO DAILY 05/19/23 08/16/24 warfarin 3 mg tablet 4 mg PO DAILY 05/19/23 08/16/24 amiodarone 400 mg tablet 400 mg PO DAILY 02/04/24 08/16/24 insulin aspart U-100 100 unit/mL 1 sliding scale dose subcut 02/04/24 08/16/24 (3 mL) subcutaneous pen (Novolog USEASDIRECTD FlexPen U-100 Insulin aspart) pantoprazole 40 mg tablet,delayed 40 mg PO DAILY 02/04/24 08/16/24 release torsemide 20 mg tablet 40 mg PO DAILY 02/04/24 08/16/24 warfarin 4 mg tablet 4 mg PO DAILY 02/04/24 08/16/24 Allergies Allergy/AdvReac Type Severity Reaction Status Date / Time No Known Drug Allergies Allergy Verified 11/04/23 17:07 Review of Systems ROS Status of ROS 10 or more systems reviewed and unremark able except as noted in history and below [facility] Medical History (Updated 08/16/24 @ 21:47 by Jeanne Acevedo MD) CHF (congestive heart failure) ?I50.9 - Heart failure, unspecified (ICD-10) Hypertension ?I10 - Essential (primary) hypertension (ICD-10) Hypotension ?I95.9 - Hypotension, unspecified (ICD-10) Diabetes mellitus ?E11.9 - Type 2 diabetes mellitus without complications (ICD-10) Appendicitis, acute ?K35.80 - Unspecified acute appendicitis (ICD-10) Cholecystectomy planned Appendicitis ?K37 - Unspecified appendicitis (ICD-10) Cholecystitis ?K81.9 - Cholecystitis, unspecified (ICD-10) Myocardial infarct, old ?I25.2 - Old myocardial infarction (ICD-10) LVAD (left ventricular assist device) present ?Z95.811 - Presence of heart assist device (ICD-10) Surgical History (Updated 08/16/24 @ 21:40 by Micaela Penny RN) History of open heart surgery ?Z98.890 - Other specified postprocedural states (ICD-10) AICD (automatic cardioverter/defibrillator) present ?Z95.810 - Presence of automatic (implantable) cardiac defibrillator (ICD-10) Social History Smoking status: Former smoker Little interest or pleasure in doing things: not at all Feeling down, depressed, or hopeless: not at all Exam Narrative Exam Narrative: Vital signs and Nursing Notes reviewed: Patient is afebrile with a normal pulse, systolic blood pressure is 88 again patient has an LVAD making blood pressure readings difficult, he is not hypoxic with pulse ox of 100% on room air General: Awake, alert, oriented, no acute distress, lying comfortably on the stretcher HEENT: Normocephalic atraumatic, mucous membranes are moist and pink, eyes are clear, conjunctivae are pale Neck: Supple, no meningeal signs, no JVD Chest: Lungs are clear to auscultation with good air entry, there is no wheezing rhonchi or rales appreciated no accessory muscle use, patient is speaking in complete sentences-no chest wall tenderness to palpation CVS: Regular rate and rhythm S1-S2, no murmurs rubs or gallops, pulses are brisk and equal bilaterally-several large healed incisions on the anterior chest and abdominal wall status post pacemaker placement and LVAD placement ABD: Soft, nondistended, nontender, no rebound guarding or rigidity, bowel sounds are normal, no pulsatile masses appreciated-melanotic stool in the rectal vault Extremities: Moving all extremities, chronic lower extremity swelling, no calf tenderness, chronic hypertrophic skin discoloration of the lower extremities bilaterally Skin: Normal in appearance without rash,pallor, petechiae or purpura Neuro: No focal deficits, speech is clear, there is no facial droop, upper and lower extremity strength and sensation is intact, no gross focal deficits Constitutional Vital Signs, click to edit/add: Last Vital Signs Temp 98.5 F 08/16/24 22:34 Pulse 80 08/16/24 22:34 Resp 16 08/16/24 22:34 BP 88/0 L 08/16/24 22:34 Pulse Ox 96 08/16/24 22:34 O2 Del Method Room Air 08/16/24 19:13 Course Vital Signs Vital signs: Vital Signs Temperature 98.1 F 08/16/24 19:13 Pulse Rate 80 08/16/24 19:13 Respiratory Rate 22 H 08/16/24 19:13 Blood Pressure 88/0 L 08/16/24 19:13 Pulse Oximetry 100 08/16/24 19:13 Oxygen Delivery Method Room Air 08/16/24 19:13 Temperature 98.5 F 08/16/24 22:34 Pulse Rate 80 08/16/24 22:34 Respiratory Rate 16 08/16/24 22:34 Blood Pressure 88/0 L 08/16/24 22:34 Pulse Oximetry 96 08/16/24 22:34 Oxygen Delivery Method Room Air 08/16/24 19:13 MDM - Dizziness MDM Narrative Medical decision making narrative: This 65-year-old male with a history of coronary artery disease status post LVAD placement at [facility] who is followed there and also has had episodes of GI bleeding. I asked him if he had had colonoscopies in the past and he states he had but they told him that he had episodes of GI bleeding due to the fact that he was on Coumadin. He denies any chest pain or shortness of breath which is unusual for him. He presents for evaluation of dizziness and lightheadedness. He has not had any syncope. He has no abdominal pain or back pain. He was mildly pale upon arrival. Systolic blood pressure was 80. He is guaiac positive. EKG is a paced rhythm with a background of the LVAD making interpretation difficult. An IV was placed and routine labs are ordered. He has a normal white count and hemoglobin is low at 6.3. INR is therapeutic at 2.47. Digoxin is in the normal range at 0.9. CMP is reviewed. He has an elevated glucose at 402 for which he received a dose of IV insulin, he also has an elevated BUN and creatinine consistent with his baseline of renal insufficiency. Today his BUN and creatin ine are 42 and 1.91. BNP is elevated at 1469. He has a normal troponin. 1 view chest x-ray was ordered and shows cardiomegaly with a pacemaker device overlying the heart with mild congestive changes but no pleural effusion or sign of acute fluid overload. The results of the hemoglobin were discussed with the patient and he was agreeable to receiving blood. 2 units of packed red blood cells were ordered. He request transfer to [facility] where he receives his medical care. A call was placed to the transfer center for consultation and transfer. Case was discussed with Dr Morales and he is accepted for transfer, currently awaiting a bed assignment. Medical Records Attestation: I reviewed the patient's medical records. Lab Data Attestation: I reviewed the patient's lab results. Labs: Lab Results 08/16/24 08/16/24 Range/Units 19:30 19:56 WBC 6.9 (4.0-11.0) 10^3/uL RBC 2.30 L (4.70-6.10) 10^6/uL Hgb 6.3 L* (14.0-18.0) g/dL Hct 21.5 L* (42.0-54.0) % MCV 93.5 (80.0-94.0) fL MCH 27.4 (25.9-34.0) pg MCHC 29.3 L (29.9-35.2) g/dL RDW 25.8 H (11.0-15.0) % Plt Count 160 (150-450) 10^3/uL MPV 11.6 (9.5-13.5) fL Neut % (Auto) 75.6 H (43.0-75.0) % Lymph % (Auto) 11.8 L (20.5-60.0) % Pepin % (Auto) 8.7 (1.7-12.0) % Eos % (Auto) 2.0 (0.9-7.0) % Baso % (Auto) 1.3 (0.2-2.0) % Neut # (Auto) 5.2 (1.4-6.5) 10^3/uL Lymph # (Auto) 0.8 L (1.2-3.8) 10^3/uL Pepin # (Auto) 0.6 (0.3-0.8) 10^3/uL Eos # (Auto) 0.1 (0.0-0.7) 10^3/uL Baso # (Auto) 0.1 (0.0-0.1) 10^3/uL Abs Immat Gran (auto) 0.04 H (0.00-0.03) 10^3/uL Imm/Tot Granulo (auto) 0.6 H (0.0-0.5) % PT 23.9 H (9.0-11.6) sec INR 2.47 Sodium 135 L (136-145) mmol/L Potassium 4.0 (3.5-5.1) mmol/L Chloride 99 (98-107) mmol/L Carbon Dioxide 24.9 (21.0-32.0) mmol/L Anion Gap 15.1 BUN 42.0 H (7.0-18.0) mg/dL Creatinine 1.91 H (0.70-1.30) mg/dL Est GFR ( Amer) 43 L (>=60 mL/min/1.73m^2) Est GFR (Non-Af Amer) 36 L (>=60 mL/min/1.73m^2) BUN/Creatinine Ratio 22.0 Glucose 402 H (74-106) mg/dL Calcium 8.2 L (8.5-10.1) mg/dL Total Bilirubin 0.5 (0.2-1.0) mg/dL AST 14 L (15-37) U/L ALT 19 (16-63) U/L Alkaline Phosphatase 62 (46-116) U/L Troponin I High Sens 33.1 (4.0-76.1) pg/mL NT-Pro-B Natriuret Pep 1469.0 H* (<=900.0) pg/mL Total Protein 6.3 L (6.4-8.2) g/dL Albumin 2.9 L (3.4-5.0) g/dL Globulin 3.4 g/dL Albumin/Globulin Ratio 0.9 Stool Occult Blood Positive A Digoxin 0.9 (0.9-2.0) ng/mL Blood Type A Positive Antibody Screen Negative Crossmatch See Detail ECG Data Attestation: I personally reviewed and interpreted this ECG as follows: (LVAD rhythm) Critical Care Time Critical Care Time Critical Care Time: Yes Total Critical Care Time: 35 Attestation: Due to this patient's history of severe coronary artery disease with an LVAD device and weakness, dizziness with GI bleeding and the high probability of sudden and clinically significant deterioration in his condition he required the highest level of my preparedness to intervene urgently. I provided critical care time including documentation time medication orders and management reevaluation vital sign assessment ordering and reviewing of lab tests and radiographic studies as well as consultation with transfer center physicians. Aggregate critical care time is 35 minutes including only time during which I was engaged in work direct related to his care and did not include time treating other patients simultaneously Discharge Plan Discharge Chief Complaint: Dizziness Clinical Impression: Acute GI bleeding, Anemia due to blood loss, acute Patient Disposition: [facility] Time of Disposition Decision: 21:45 Condition: Fair
[2024-08-16 19:44] LABS: Internal Control Within Normal Limits; Occult Blood Positive
[2024-08-16 20:02] LABS: Basophils Absolute Auto 0.1 10^3/uL (0.0-0.1); Basophils Percent Auto 1.3 % (0.2-2.0); Eosinophils Absolute Auto 0.1 10^3/uL (0.0-0.7); Immature Granulocytes Abs Auto 0.04 10^3/uL (0.00-0.03); Immature Granulocytes Pct Auto 0.6 % (0.0-0.5); Lymphocytes Absolute Auto 0.8 10^3/uL (1.2-3.8); Lymphocytes Percent Auto 11.8 % (20.5-60.0); Mean Corpuscular HGB Conc 29.3 g/dL (29.9-35.2); Mean Corpuscular Hemoglobin 27.4 pg (25.9-34.0); Mean Corpuscular Volume 93.5 fL (80.0-94.0); Mean Platelet Volume 11.6 fL (9.5-13.5); Monocytes Absolute Auto 0.6 10^3/uL (0.3-0.8); Monocytes Percent Auto 8.7 % (1.7-12.0); Neutrophils Absolute Auto 5.2 10^3/uL (1.4-6.5); Neutrophils Percent Auto 75.6 % (43.0-75.0); Platelet Count 160 10^3/uL (150-450); Red Cell Distribution Width 25.8 % (11.0-15.0); White Blood Count 6.9 10^3/uL (4.0-11.0)
--- NOTE | 2024-08-16 20:07 | PC.NURSE ---
Pt is very pale in color. He states that his hgb is always too low . Lab call ed with critical value of 6.3 and HCT of 21.5. Dr Acevedo aware. He is not SOB and SPO2 is 99% RA. RR is 28 regular, and non-labored. Pt brought a back up battery for his LVAD. Unable to analyze rhythm with the LVAD. Rate is 88-106.
[2024-08-16 20:10] LABS: Hematocrit 21.5 % (42.0-54.0); Hemoglobin 6.3 g/dL (14.0-18.0)
--- NOTE | 2024-08-16 20:12 | PC.NURSE ---
O2 applied. Pt at 90-91% RA. Applied at 2L/NC. Pt tolerates this well.
[2024-08-16 20:17] LABS: INR 2.47; Prothrombin Time 23.9 sec (9.0-11.6)
[2024-08-16 20:19] LABS: Alanine Aminotransferase 19 U/L (16-63); Albumin Globulin Ratio 0.9; Albumin Level 2.9 g/dL (3.4-5.0); Alkaline Phosphatase 62 U/L (46-116); Anion Gap 15.1; Aspartate Amino Transferase 14 U/L (15-37); Bilirubin Total 0.5 mg/dL (0.2-1.0); Calcium 8.2 mg/dL (8.5-10.1); Carbon Dioxide 24.9 mmol/L (21.0-32.0); Chloride 99 mmol/L (98-107); Estimated GFR (African America 43 (>=60 mL/min/1.73m^2); Estimated GFR (Non-African Ame 36 (>=60 mL/min/1.73m^2); Globulin 3.4 g/dL; Glucose 402 mg/dL (74-106); Sodium 135 mmol/L (136-145); Total Protein 6.3 g/dL (6.4-8.2)
[2024-08-16 20:23] LABS: Digoxin 0.9 ng/mL (0.9-2.0)
[2024-08-16 20:27] LABS: Troponin I High Sensitivity 33.1 pg/mL (4.0-76.1)
[2024-08-16] MEDS: DIPHENHYDRAMINE HCL 25 MG CAPSULE PO (21:49)
[2024-08-16] MEDS: FUROSEMIDE 40 MG/4 ML VIAL 20 MG IV (21:49)
[2024-08-16] MEDS: 0.9 % SODIUM CHLORIDE 250 ML 10 ML IV (21:58)
--- NOTE | 2024-08-16 23:47 | PC.NURSE ---
Pt appears to be V-paced with a rate in the low 70's to 80
== END 2024-08-17 00:17 | disposition short-term general hospital (02) ==
PROVIDERS: Emergency Provider Emergency Medicine; PCP Nurse Practitioner
DX: K92.2 Gastrointestinal hemorrhage, unspecified (principal); D62 Acute posthemorrhagic anemia; R42 Dizziness and giddiness; E11.9 Type 2 diabetes mellitus without complications; I11.0 Hypertensive heart disease with heart failure; I50.9 Heart failure, unspecified; Z95.810 Presence of automatic (implantable) cardiac defibrillator; R53.1 Weakness; Z79.4 Long term (current) use of insulin; Z87.891 Personal history of nicotine dependence; I25.10 Atherosclerotic heart disease of native coronary artery without angina pectoris; Z79.01 Long term (current) use of anticoagulants
CPT/HCPCS: 36415; 36430; 71045; 80053; 80162; 83880; 84484; 85025; 85610; 86850; 86900; 86901; 86923; 93005; 96374; 99285; G0328; J1938; P9016